=== PATIENT | male | born 1950 | race Caucasian/White ===

== ENCOUNTER 2020-09-02 10:53 | Outpatient (REF) | payer MEDICARE, BC, SELFPAY | END 2020-09-02 10:54 | disposition home or self-care (01) | LOC: HO.LAB 10:53 | PROVIDERS: PCP Internal Medicine; Visit Provider Internal Medicine Nephrology | DX: Z13.89 Encounter for screening for other disorder (principal) ==

== ENCOUNTER 2020-09-04 11:07 | Outpatient (REF) | payer MEDICARE, BC, SELFPAY ==
[2020-09-04 13:52] LABS: Basophils Absolute Auto 0.1 X10*3/uL (0.0-0.2); Basophils Percent Auto 0.7 % (0-2); Eosinophils Absolute Auto 0.2 X10*3/uL (0.0-0.4); Eosinophils Percent Auto 2.3 % (0-4); Hematocrit 47.6 % (42-52); Hemoglobin 16.1 g/dl (14.0-18.0); Imm Gran Abs Auto 0.02 X10*3/uL (0.00-0.03); Imm Gran Pct Auto 0.2 % (0.0-0.4); Lymphocytes Percent Auto 22.3 % (20-40); MANUAL DIFF FLAG NO; Mean Corpuscular HGB Conc 33.8 g/dl (31.0-36.0); Mean Corpuscular Hemoglobin 33.3 pg (27.0-33.0); Mean Corpuscular Volume 98.3 fL (80-98); Mean Platelet Volume 9.9 fL (9.4-12.4); Monocytes Absolute Auto 0.9 X10*3/uL (0.1-1.2); Monocytes Percent Auto 9.7 % (2-11); Neutrophils Absolute Auto 5.7 X10*3/uL (2.0-8.3); Neutrophils Percent Auto 64.8 % (45-73); Platelet Count 296 X10*3/uL (160-400); Red Blood Count 4.84 X10*6/uL (4.60-5.80); White Blood Count 8.8 X10*3/uL (4.8-10.8)
[2020-09-04 14:23] LABS: Albumin Level 4.1 g/dL (3.5-5.0); Anion Gap 13 (12-20); Blood Urea Nitrogen 18 mg/dL (9-16); Calcium 8.6 mg/dL (8.4-10.2); Carbon Dioxide 24 mmol/L (22-29); Chloride 104 mmol/L (96-108); Estimated Glomerular Filt Rate 48; Iron 65 mcg/dL (45-160); Magnesium 2.1 mg/dL (1.6-2.6); Percent Iron Saturation 22 % (15-50); Phosphorus 3.1 mg/dL (2.7-4.5); Sodium 136 mmol/L (135-145); Total Iron Binding Capacity 298 mcg/dL (228-428); Unsaturated Iron Binding 233 ug/dL
[2020-09-04 14:42] LABS: Ferritin 141 ng/mL (20-250); Vitamin D 25-OH Total 43.1 ng/mL (>30)
[2020-09-04 15:35] LABS: Renal w Reflex Lab Use Only Order verified
[2020-09-07 08:22] LABS: HBsAGNum1 0.17 S/CO (0.00-0.99); Hepatitis B Surface Antigen Negative (Negative); ~HepC Num1 0.09 S/CO (0.00-0.79); ~Hepatitis C Antibody Nonreactive (Nonreactive)
[2020-09-07 09:49] LABS: HBS Num1 10.48 mIU/mL (0-7.99)
[2020-09-07 10:45] LABS: HBc Num1 9.52 S/CO (0.00-0.79)
[2020-09-07 11:28] LABS: HBc Num2 9.52 S/CO; HBc Num3 9.36 S/CO; Hepatitis B Core Antibody Reactive (Nonreactive)
[2020-09-07 11:29] LABS: HBS Num2 10.48 mIU/mL (0-7.99); HBS Num3 10.37 mIU/mL (0-7.99); ~Hepatitis B Surface Antibody GRAYZONE (Nonreactive)
[2020-09-07 19:11] LABS: Calcium (PTHI) 9.1 mg/dL (8.6-10.3); PTHI 39 pg/mL (14-64)
[2020-09-08 11:36] LABS: IgA 329 mg/dL (70-320); IgG 717 mg/dL (600-1540); IgM 131 mg/dL (50-300)
[2020-09-08 22:33] LABS: Hepatitis B Core Antibody IgM NON-REACTIVE (NON-REACTIVE)
== END 2020-09-04 11:08 | disposition home or self-care (01) ==
LOC: HO.10HDL 11:07
PROVIDERS: Visit Provider Internal Medicine Nephrology
DX: I12.9 Hypertensive chronic kidney disease with stage 1 through stage 4 chronic kidney disease, or unspecified chronic kidney disease (principal); N18.30 Chronic kidney disease, stage 3 unspecified; E10.9 Type 1 diabetes mellitus without complications; E78.5 Hyperlipidemia, unspecified; E55.9 Vitamin D deficiency, unspecified
CPT/HCPCS: 36415; 80051; 82040; 82306; 82310; 82565; 82728; 82784; 83540; 83735; 83970; 84100; 84520; 85025; 86334; 86704; 86705; 86706; 86803; 87340

== ENCOUNTER 2020-09-07 11:50 | Outpatient (REF) | payer MEDICARE, BC, SELFPAY ==
[2020-09-07 14:28] LABS: Glucose Urine UA 250 MG/DL (NEG); Leukocyte Esterase Urine NEG (NEG); Nitrite Urine NEG (NEG); Specific Gravity - Urine 1.025 (1.005-1.025); Urine Blood TRACE (NEG); Urine Ketones NEG (NEG); Urine Protein NEG (NEG-TRACE)
[2020-09-07 14:33] LABS: Appearance Urine CLEAR; Color Urine YELLOW; Renal w Reflex-LAB USE ONLY Order Verified
[2020-09-07 14:37] LABS: Estimated Glomerular Filt Rate 53
[2020-09-07 14:46] LABS: WBC Urine 0 /HPF (0-4)
[2020-09-07 15:15] LABS: Creatinine, mg/dL 98.51
[2020-09-07 15:26] LABS: Creatinine Urine 77.44 mg/dL; Microalbum/Creatinine Ratio Ur 34.8 ug/mg cr; Total Protein Urine Random 19 mg/dL (<12)
[2020-09-07 15:51] LABS: Creatinine, 24Hr Urine 1.2 G/Day (1.0-2.0); Total Volume 24 Hour Urine 1250 mL
[2020-09-07 15:52] LABS: Creatinine (CrCl) 1.35 mg/dL (0.5-1.4); Creatinine Clearance 63.3 mL/min (85-125)
[2020-09-28 11:57] LABS: BUN 22
[2020-09-28 11:58] LABS: Urea Nitrogen, Urine 11
== END 2020-09-07 11:51 | disposition home or self-care (01) ==
LOC: HO.10HDL 11:50
PROVIDERS: Visit Provider Internal Medicine Nephrology
DX: E10.22 Type 1 diabetes mellitus with diabetic chronic kidney disease (principal); I12.9 Hypertensive chronic kidney disease with stage 1 through stage 4 chronic kidney disease, or unspecified chronic kidney disease; N18.30 Chronic kidney disease, stage 3 unspecified; E78.5 Hyperlipidemia, unspecified; E55.9 Vitamin D deficiency, unspecified
CPT/HCPCS: 81001; 82043; 82565; 82575; 84156; 84545

== ENCOUNTER → 2020-09-10 08:58 | Outpatient (BNVA) | payer MEDICARE, BC, SELFPAY | PROVIDERS: PCP Internal Medicine; Referring Provider Internal Medicine; Visit Provider Internal Medicine | DX: E10.65 Type 1 diabetes mellitus with hyperglycemia (principal); I10 Essential (primary) hypertension; E78.5 Hyperlipidemia, unspecified; D35.2 Benign neoplasm of pituitary gland; E55.9 Vitamin D deficiency, unspecified; B18.1 Chronic viral hepatitis B without delta-agent; Z79.899 Other long term (current) drug therapy; Z79.4 Long term (current) use of insulin; Z79.82 Long term (current) use of aspirin | CPT/HCPCS: Q3014 ==

== ENCOUNTER 2020-09-21 06:47 | Emergency (ER) | payer MEDICARE, BC, SELFPAY ==
--- NOTE | 2020-09-21 06:56 | ECG_ITS ---
Test Reason : NEAR SYNCOPE Blood Pressure : / mmHG Vent. Rate : 059 BPM Atrial Rate : 059 BPM P-R Int : 136 ms QRS Dur : 136 ms QT Int : 450 ms P-R-T Axes : 031 037 055 degrees QTc Int : 445 ms Sinus bradycardia Right bundle branch block Nonspecific ST abnormality Abnormal ECG When compared with ECG of 10-OCT-2019 04:28, No significant change was found Referred By: Pastor Woods Electronically Signed By:NY SOUZA MD
--- NOTE | 2020-09-21 06:56 | XR_ITS ---
EXAMINATION: XR CHEST CLINICAL INFORMATION: Syncope. COMPARISON: Chest x-ray dated 02/09/2019. TECHNIQUE: Frontal view of the chest was obtained. FINDINGS: No airspace opacities or pleural effusions are seen. The cardiomediastinal silhouette is normal. There are mild to moderate degenerative changes of the AC joints. No acute osseous abnormality is evident. XR/XR chest 1V IMPRESSION: No acute cardiopulmonary findings.
[2020-09-21 07:00] VITALS: BP 118/61; BP 133/76; PULSE 60; PULSE 62; RESP 18; TEMP 36.6; O2SAT 97; O2SAT 98; BMI 24.3
--- NOTE | 2020-09-21 07:15 | ED_ITS ---
HPI - Syncope General Chief Complaint: Syncope Stated Complaint: syncope Time Seen by Provider: 09/21/20 06:55 Source: patient Mode of arrival: EMS Limitations: no limitations History of Present Illness HPI narrative: patient's history of significant coronary artery disease status post stent placement in 2011, diabetes, CVA 2019 on Plavix no residual deficits was doing fine workup having the coffee had 1 sip of coffee felt diaphoretic and weak sat down on the bench and almost passed out slumped down to the table. No loss of consciousness denies any chest pain denies any palpitation now feels back to normal. Patient never had similar episode in the past no focal weakness no headache patient never had similar episode in the past POC checked by EMS was 83 patient has a loop monitor [employer] implanted to rule out AFib as a cause CVA for last 1 year no one has called him with any arrhythmia MD complaint: felt faint and almost passed out Onset (ago): minute(s) -: minutes(s) Prodromal symptoms: lightheaded and diaphoresis Witnessed: No Context: at rest Injuries sustained associated with event: none Current symptoms: none and back to baseline Related Data Home Medications Medication Instructions Recorded Confirmed aspirin 81 mg tablet,delayed 81 mg PO DAILY 09/10/20 09/10/20 release atorvastatin 80 mg tablet 80 mg PO DAILY 09/10/20 09/10/20 cholecalciferol (vitamin D3) 50 50 mcg PO DAILY 09/10/20 09/10/20 mcg (2,000 unit) capsule clopidogrel 75 mg tablet 75 mg PO DAILY 09/10/20 09/10/20 dorzolamide 2 % eye drops 1 drp OPHTHALMIC (EYE) TID 09/10/20 09/10/20 emtricitabine 200 mg-tenofovir 1 tab PO DAILY 09/10/20 09/10/20 alafenamide fumarate 25 mg tablet ezetimibe 10 mg tablet 10 mg PO DAILY 09/10/20 09/10/20 insulin aspart U-100 100 unit/mL 21 unit SUBCUT TID ml 09/10/20 09/10/20 (3 mL) subcutaneous pen insulin degludec 100 unit/mL (3 45 unit SUBCUT DAILY ml 09/10/20 09/10/20 mL) subcutaneous pen latanoprost 0.005 % eye drops 1 drp OPHTHALMIC (EYE) DAILY 09/10/20 09/10/20 lisinopril 10 mg tablet 10 mg PO DAILY 09/10/20 09/10/20 metoprolol tartrate 25 mg tablet 12.5 mg PO BID 09/10/20 09/10/20 nitroglycerin 0.4 mg sublingual 0.4 mg SUBLINGUAL Q5M PRN 09/10/20 09/10/20 tablet Allergies Allergy/AdvReac Type Severity Reaction Status Date / Time No Known Allergies Allergy Verified 09/10/20 11:26 Review of Systems Review of Systems: REVIEW OF SYSTEMS: Pertinent positives and negatives are stated above in the history. GEN: no fevers, chills, fatigue HEENT: no nasal congestion, sore throat, ear pain NEURO: no headache, focal weakness PULM: no cough, shortness of breath CV: no chest pain, palpitations, LE edema ABD: no abdominal pain, nausea, vomiting, diarrhea : no dysuria, urgency, frequency SKIN: no rash ROS otherwise negative x 10 PMFSH Past Medical History Medical History (Updated 09/21/20 @ 13:20 by Pastor Woods MD) HLD (hyperlipidemia) HTN (hypertension) Pituitary macroadenoma T1DM (type 1 diabetes mellitus) TIA (transient ischemic attack) Vitamin D deficiency Surgical History (Updated 09/21/20 @ 07:31 by Olga Chadwick) History of carotid endarterectomy History of heart artery stent Family History Family History Father CVD (cardiovascular disease) AAA (abdominal aortic aneurysm) Mother No problems noted. Social History Social History Alcohol intake: never Smoking Status: Current every day smoker Use of substances other than those prescribed or required for medical reasons: No Advance Directives: No Advance Directives Information Provided: Yes Physical Exam Vital Signs: Vital Signs: Last Vital Signs Temp 98.6 F 09/21/20 10:13 Pulse 64 09/21/20 10:38 Resp 18 09/21/20 10:38 BP 172/71 H 09/21/20 10:38 Pulse Ox 98 09/21/20 10:38 Body Mass Index 24.3 VITAL SIGNS: Reviewed. GENERAL: Well developed, well nourished, in no acute distress. HEAD: Normocephalic/atraumatic, EYES: PERRLA No pallor/icterus noted OROPHARYNX: Oral mucosa moist no oral lesions NECK: Supple, no adenopathy LUNGS: Normal breath sounds. No adventitious sounds or accessory muscle use CARDIOVASCULAR: Regular rate and rhythm without noted murmurs, no JVD or lower extremity edema. ABDOMEN: Soft, non-tender, non-distended with normal bowel sounds. No rigidity. No guarding. No palpable masses or hernias noted MUSCULOSKELETAL: No tenderness, deformities, EXTREMITIES: No cyanosis or edema. SKIN: no rashes, ulcerations, jaundice, pallor, NEUROLOGIC: Alert and oriented x 3. Strength and sensation to light touch were grossly intact normal speech Course Course Course Narrative: patient is a near-syncope episode in the ER blood sugar dropped to 57 elevated creatinine which is chronic, no acute EKG changes, I call the retail inventory control clerk they have not seen any signal of arrhythmias from the loop monitor today. Will repeat his troponin and if it is normal we will discharge him home MDM - Syncope Lab Data Result diagrams: 09/21/20 07:30 09/21/20 07:31 Labs: Lab Results 09/21/20 09/21/20 09/21/20 Range/Units 07:30 07:30 07:31 WBC 10.6 (4.8-10.8) X10*3/uL RBC 4.63 (4.60-5.80) X10*6/uL Hgb 15.1 (14.0-18.0) g/dl Hct 45.1 (42-52) % MCV 97.4 (80-98) fL MCH 32.6 (27.0-33.0) pg MCHC 33.5 (31.0-36.0) g/dl RDW 12.9 (11.0-16.0) % Plt Count 252 (160-400) X10*3/uL MPV 8.8 L (9.4-12.4) fL Immature Gran % (Auto) 0.5 H (0.0-0.4) % Neut % (Auto) 68.1 (45-73) % Lymph % (Auto) 18.3 L (20-40) % [place] % (Auto) 10.3 (2-11) % Eos % (Auto) 2.4 (0-4) % Baso % (Auto) 0.4 (0-2) % Lymph # (Auto) 1.9 (1.2-4.9) X10*3/uL [place] # (Auto) 1.1 (0.1-1.2) X10*3/uL Eos # (Auto) 0.3 (0.0-0.4) X10*3/uL Baso # (Auto) 0.0 (0.0-0.2) X10*3/uL Abs Immat Gran (auto) 0.05 H (0.00-0.03) X10*3/uL Absolute Neuts (auto) 7.2 (2.0-8.3) X10*3/uL Absolute Nucleated RBC 0.000 (0.0-0.012) X10*3/uL Nucleated RBC % (auto) 0.0 (0.0-0.2) /100WBC Hold Blue Top SEE NOTE Sodium 138 (135-145) mmol/L Potassium 4.5 (3.3-5.1) mmol/l Chloride 102 (96-108) mmol/L Carbon Dioxide 28 (22-29) mmol/L Anion Gap 13 (12-20) BUN 23 H (9-16) mg/dL Creatinine 1.65 H (0.5-1.4) mg/dL Estim Creat Clear Calc 41.4 Estimated GFR 42 Random Glucose 57 L* (60-115) mg/dL Calcium 8.6 (8.4-10.2) mg/dL Troponin I High Sens (<3.5-35.0) ng/L 09/21/20 09/21/20 Range/Units 07:31 12:26 WBC (4.8-10.8) X10*3/uL RBC (4.60-5.80) X10*6/uL Hgb (14.0-18.0) g/dl Hct (42-52) % MCV (80-98) fL MCH (27.0-33.0) pg MCHC (31.0-36.0) g/dl RDW (11.0-16.0) % Plt Count (160-400) X10*3/uL MPV (9.4-12.4) fL Immature Gran % (Auto) (0.0-0.4) % Neut % (Auto) (45-73) % Lymph % (Auto) (20-40) % [place] % (Auto) (2-11) % Eos % (Auto) (0-4) % Baso % (Auto) (0-2) % Lymph # (Auto) (1.2-4.9) X10*3/uL [place] # (Auto) (0.1-1.2) X10*3/uL Eos # (Auto) (0.0-0.4) X10*3/uL Baso # (Auto) (0.0-0.2) X10*3/uL Abs Immat Gran (auto) (0.00-0.03) X10*3/uL Absolute Neuts (auto) (2.0-8.3) X10*3/uL Absolute Nucleated RBC (0.0-0.012) X10*3/uL Nucleated RBC % (auto) (0.0-0.2) /100WBC Hold Blue Top Sodium (135-145) mmol/L Potassium (3.3-5.1) mmol/l Chloride (96-108) mmol/L Carbon Dioxide (22-29) mmol/L Anion Gap (12-20) BUN (9-16) mg/dL Creatinine (0.5-1.4) mg/dL Estim Creat Clear Calc Estimated GFR Random Glucose (60-115) mg/dL Calcium (8.4-10.2) mg/dL Troponin I High Sens 20.6 15.9 (<3.5-35.0) ng/L ECG Data Attestation: I personally reviewed and interpreted this ECG as follows: ECG interpretation date: 09/21/20 ECG interpretation time: 06:28 Interpretation: sinus bradycardia heart rate [address] T wave changes from previous EKG done in 09/2019 Discharge Plan Discharge Clinical Impression: Near syncope Patient Disposition: Home, Self-Care Instructions: Near Syncope (ED) Additional Instructions: etiology of near syncope is not very clear no cardiac arrhythmias noticed. The blood sugar was slightly low when you came here likely the cause or vasovagal. Drink plenty of fluids and follow with retail inventory control clerk Prescriptions: No Action lisinopril 10 mg tablet 10 mg PO DAILY RF: 0 metoprolol tartrate 25 mg tablet 12.5 mg PO BID RF: 0 latanoprost [Xalatan] 0.005 % drops 1 drp ophthalmic (eye) DAILY RF: 0 dorzolamide 2 % drops 1 drp ophthalmic (eye) TID RF: 0 cholecalciferol (vitamin D3) 50 mcg (2,000 unit) capsule 50 mcg PO DAILY RF: 0 aspirin 81 mg tablet,delayed release (DR/EC) 81 mg PO DAILY RF: 0 nitroglycerin 0.4 mg tablet, sublingual 0.4 mg sublingual Q5M PRNRF: 0 Descovy 200-25 mg tablet 1 tab PO DAILY RF: 0 atorvastatin 80 mg tablet 80 mg PO DAILY RF: 0 Tresiba FlexTouch U-100 100 unit/mL (3 mL) insulin pen 45 unit subcut DAILY RF: 0 insulin aspart U-100 [Novolog Flexpen U-100 Insulin] 100 unit/mL (3 mL) insul in pen 21 unit subcut TID RF: 0 ezetimibe [Zetia] 10 mg tablet 10 mg PO DAILY RF: 0 clopidogrel [Plavix] 75 mg tablet 75 mg PO DAILY RF: 0
[2020-09-21 07:36] LABS: MANUAL DIFF FLAG NO
[2020-09-21 07:38] LABS: Basophils Percent Auto 0.4 % (0-2); Eosinophils Absolute Auto 0.3 X10*3/uL (0.0-0.4); Eosinophils Percent Auto 2.4 % (0-4); Hematocrit 45.1 % (42-52); Hemoglobin 15.1 g/dl (14.0-18.0); Imm Gran Abs Auto 0.05 X10*3/uL (0.00-0.03); Imm Gran Pct Auto 0.5 % (0.0-0.4); Lymphocytes Absolute Auto 1.9 X10*3/uL (1.2-4.9); Lymphocytes Percent Auto 18.3 % (20-40); Mean Corpuscular HGB Conc 33.5 g/dl (31.0-36.0); Mean Corpuscular Hemoglobin 32.6 pg (27.0-33.0); Mean Corpuscular Volume 97.4 fL (80-98); Mean Platelet Volume 8.8 fL (9.4-12.4); Monocytes Absolute Auto 1.1 X10*3/uL (0.1-1.2); Monocytes Percent Auto 10.3 % (2-11); Neutrophils Absolute Auto 7.2 X10*3/uL (2.0-8.3); Neutrophils Percent Auto 68.1 % (45-73); Platelet Count 252 X10*3/uL (160-400); Red Blood Count 4.63 X10*6/uL (4.60-5.80); Red Cell Distribution Width 12.9 % (11.0-16.0); White Blood Count 10.6 X10*3/uL (4.8-10.8)
[2020-09-21 08:06] LABS: Anion Gap 13 (12-20); Blood Urea Nitrogen 23 mg/dL (9-16); Calcium 8.6 mg/dL (8.4-10.2); Carbon Dioxide 28 mmol/L (22-29); Chloride 102 mmol/L (96-108); Creatinine Clr Calc Pharmacy 41.4; Estimated Glomerular Filt Rate 42; Glucose Random 57 mg/dL (60-115); Potassium 4.5 mmol/l (3.3-5.1); Sodium 138 mmol/L (135-145)
[2020-09-21 08:08] LABS: Troponin-I High Sensitivity 20.6 ng/L (<3.5-35.0)
[2020-09-21 09:07] VITALS: BP 138/69; PULSE 58; RESP 18; TEMP 36.6; O2SAT 99
[2020-09-21 10:13] VITALS: BP 174/66; PULSE 65; RESP 18; TEMP 37; O2SAT 96
--- NOTE | 2020-09-21 10:36 | PC.NURSE ---
Pt ate bkfst. Glucose 112 now per pt's glucose monitor.
[2020-09-21 10:38] VITALS: BP 172/71; PULSE 64; RESP 18; O2SAT 98
[2020-09-21] MEDS: 0.9 % Sodium Chloride 1,000 ML 999 ML IVCONT (11:59)
[2020-09-21 12:56] LABS: Troponin-I High Sensitivity 15.9 ng/L (<3.5-35.0)
[2020-09-21 13:30] LABS: Glucose, Whole Blood 120 mg/dL (60-115)
== END 2020-09-21 13:41 | disposition home or self-care (01) ==
PROVIDERS: Emergency Provider Internal Medicine
DX: R55 Syncope and collapse (principal); I10 Essential (primary) hypertension; F17.200 Nicotine dependence, unspecified, uncomplicated; Z71.6 Tobacco abuse counseling; Z79.899 Other long term (current) drug therapy
CPT/HCPCS: 36415; 71045; 80048; 82947; 84484; 85025; 93005; 96360; 99284

== ENCOUNTER 2020-09-23 08:27 | Outpatient (REF) | payer MEDICARE, BC, SELFPAY ==
[2020-09-23 09:27] LABS: Estimated Average Glucose 189 mg/dL; Hemoglobin A1c % 8.2 %
[2020-09-23 09:34] LABS: Alanine Aminotransferase 15 U/L (0-40); Alkaline Phosphatase 84 U/L (39-117); Anion Gap 12 (12-20); Aspartate Amino Transferase 15 U/L (5-37); Bilirubin Total 0.5 mg/dL (0.0-1.0); Blood Urea Nitrogen 20 mg/dL (9-16); Calcium 8.8 mg/dL (8.4-10.2); Carbon Dioxide 26 mmol/L (22-29); Chloride 103 mmol/L (96-108); Cholesterol 88 mg/dL; Estimated Glomerular Filt Rate 45; Glucose Random 184 mg/dL (60-115); HDL Cholesterol 24 mg/dL; LDL Cholesterol Calculated 44 mg/dl; Sodium 136 mmol/L (135-145); Total Protein 6.4 g/dL (6.5-8.0); Triglycerides 100 mg/dL
[2020-09-23 10:01] LABS: Free T4 (Free Thyroxine) 0.83 ng/dL (0.71-1.85); Vitamin D 25-OH Total 34.7 ng/mL (>30)
[2020-09-23 10:13] LABS: Osmolality, Serum 297 mosm/kg (281-305)
[2020-09-23 11:30] LABS: Creatinine Urine 76.01 mg/dL; Microalbum/Creatinine Ratio Ur 35.5 ug/mg cr
[2020-09-24 18:07] LABS: LDL Cholesterol Direct 45 mg/dL (<100)
[2020-09-24 18:57] LABS: Triiodothyronine T3 Total 80 ng/dL (76-181)
[2020-09-24 21:37] LABS: Sex Hormone Binding Globulin 41 nmol/L (22-77)
[2020-09-25 14:47] LABS: Follicle Stimulating Hormone 5.1 mIU/mL (1.6-8.0); Lutenizing Hormone 7.4 mIU/mL (1.6-15.2); Prolactin Undiluted 4.9 ng/mL (2.0-18.0)
[2020-09-25 22:12] LABS: Adrenocorticotropic Hormone 32 pg/mL (6-50)
[2020-09-27 15:31] LABS: IGF-1 (Somatomedin C) 180 ng/mL (41-279)
[2020-09-28 14:22] LABS: Testosterone, Free 54.3 pg/mL (35.0-155.0); Testosterone, Total 431 ng/dL (250-1100)
== END 2020-09-23 08:28 | disposition home or self-care (01) ==
LOC: HO.LAB 08:27
PROVIDERS: PCP Internal Medicine; Visit Provider Internal Medicine
DX: E55.9 Vitamin D deficiency, unspecified (principal); E10.65 Type 1 diabetes mellitus with hyperglycemia; D35.2 Benign neoplasm of pituitary gland
CPT/HCPCS: 80053; 80061; 82024; 82043; 82306; 82533; 83001; 83002; 83036; 83721; 83930; 84146; 84270; 84305; 84402; 84403; 84439; 84443; 84480

== ENCOUNTER → 2020-12-24 08:58 | Outpatient (BNVA) | payer MEDICARE, BC, SELFPAY | PROVIDERS: PCP Internal Medicine; Visit Provider Internal Medicine Cardiovascular Disease | DX: I25.10 Atherosclerotic heart disease of native coronary artery without angina pectoris (principal); I10 Essential (primary) hypertension; Z95.818 Presence of other cardiac implants and grafts | CPT/HCPCS: 99212 ==

== ENCOUNTER 2020-12-24 10:38 | Outpatient (REF) | payer MEDICARE, BC, SELFPAY | END 2020-12-24 10:39 | disposition home or self-care (01) | LOC: HO.10HDL 10:38 | PROVIDERS: Visit Provider Internal Medicine Infectious Disease | DX: Z13.89 Encounter for screening for other disorder (principal) ==

== ENCOUNTER 2020-12-28 09:37 | Outpatient (REF) | payer MEDICARE, BC, SELFPAY ==
[2020-12-28 10:12] LABS: MANUAL DIFF FLAG NO
[2020-12-28 10:19] LABS: Basophils Absolute Auto 0.1 X10*3/uL (0.0-0.2); Basophils Percent Auto 0.6 % (0-2); Eosinophils Absolute Auto 0.2 X10*3/uL (0.0-0.4); Eosinophils Percent Auto 2.2 % (0-4); Hematocrit 47.1 % (42-52); Hemoglobin 15.9 g/dl (14.0-18.0); Imm Gran Abs Auto 0.03 X10*3/uL (0.00-0.03); Imm Gran Pct Auto 0.3 % (0.0-0.4); Lymphocytes Percent Auto 19.9 % (20-40); Mean Corpuscular HGB Conc 33.8 g/dl (31.0-36.0); Mean Corpuscular Hemoglobin 32.6 pg (27.0-33.0); Mean Corpuscular Volume 96.7 fL (80-98); Mean Platelet Volume 9.1 fL (9.4-12.4); Monocytes Absolute Auto 0.8 X10*3/uL (0.1-1.2); Monocytes Percent Auto 8.2 % (2-11); Neutrophils Absolute Auto 6.8 X10*3/uL (2.0-8.3); Neutrophils Percent Auto 68.8 % (45-73); Platelet Count 286 X10*3/uL (160-400); Red Blood Count 4.87 X10*6/uL (4.60-5.80); White Blood Count 9.9 X10*3/uL (4.8-10.8)
[2020-12-28 11:04] LABS: Alanine Aminotransferase 17 U/L (0-40); Aspartate Amino Transferase 16 U/L (5-37); Blood Urea Nitrogen 25 mg/dL (9-16); Estimated Glomerular Filt Rate 40; Phosphorus 3.2 mg/dL (2.7-4.5)
[2020-12-28 11:28] LABS: HIV AB/AG Nonreactive (Nonreactive); HIV Num 1 0.06 S/CO (0.00-0.99)
[2020-12-28 11:53] LABS: Syphilis Screen Nonreactive (Nonreactive)
[2020-12-28 12:00] LABS: ~HepC Num1 0.09 S/CO (0.00-0.79); ~Hepatitis C Antibody Nonreactive (Nonreactive)
[2020-12-29 13:32] LABS: C. trachomatis RNA TMA NOT DETECTED (NOT DETECTED); N. gonorrhoeae RNA TMA NOT DETECTED (NOT DETECTED)
[2020-12-30 18:11] LABS: Hepatitis B Viral DNA Qn - cp <1.00 NOT DETECTED Log IU/mL (NOT DETECTED); Hepatitis B Viral DNA Qn-IU/mL <10 NOT DETECTED IU/mL (NOT DETECTED)
== END 2020-12-28 09:38 | disposition home or self-care (01) ==
LOC: HO.10HDL 09:37
PROVIDERS: Visit Provider Internal Medicine Infectious Disease
DX: B19.10 Unspecified viral hepatitis B without hepatic coma (principal)
CPT/HCPCS: 36415; 82565; 84100; 84450; 84460; 84520; 85025; 86780; 86803; 87389; 87491; 87517; 87591

== ENCOUNTER → 2020-12-31 12:12 | Outpatient (BNVA) | payer MEDICARE, BC, SELFPAY | PROVIDERS: PCP Internal Medicine; Visit Provider Internal Medicine | DX: E10.65 Type 1 diabetes mellitus with hyperglycemia (principal); E78.5 Hyperlipidemia, unspecified; D35.2 Benign neoplasm of pituitary gland; I10 Essential (primary) hypertension; Z79.4 Long term (current) use of insulin; Z71.3 Dietary counseling and surveillance | CPT/HCPCS: 82947; 99212 ==

== ENCOUNTER 2021-01-12 08:55 | Inpatient (IN) | payer MEDICARE, BC, SELFPAY ==
[2021-01-12] VITALS (9 sets, daily range): BP systolic 135–204; BP diastolic 68–90; PULSE 61–68; RESP 12–20; TEMP 36.3–37.1; O2SAT 96–100; BMI 24.5
--- NOTE | ~2021-01-12 | CT_ITS ---
EXAMINATION: CT HEAD WITHOUT CONTRAST (STROKE PROTOCOL) CLINICAL INFORMATION: Stroke protocol. Left hand weakness COMPARISON: CT brain 11/18/2019 TECHNIQUE: Contiguous axial imaging was performed from the skull base to vertex without intravenous administration of contrast. This CT examination was performed using dose optimization techniques as appropriate, variously including the following: *Automated exposure control *Adjustment of mA and/or kV according to patient size (this includes techniques or standardized protocols for targeted exams where dose is matched to indication/reason for exam; i.e. extremities or head) *Use of iterative reconstruction technique DLP: 725 mGy-cm FINDINGS: There is no intracranial hemorrhage, hematoma, or extra-axial fluid collection. The the lateral ventricles are symmetrical but slightly prominent. There is no hydrocephalus, edema, or mass effect. The soto-white matter differentiation appears symmetric. There is subtle hypodensity seen in the right anterior centrum ovale extending to the external capsule, new since last study 11/18/2019. It is best visualized on axial image 18/3. There is mild periventricular hypodensity in both cerebral hemispheres without mass effect suggestive of chronic small vessel ischemic changes. The calvarium appears intact. There is no pneumocephalus or orbital emphysema. The visualized sinuses and middle ears and mastoid air cells show no significant mucosal thickening. There are no air-fluid levels. CT/CT head for stroke IMPRESSION: New right anterior centrum semiovale hypodensity extending to the external capsule suggestive of infarct. There is no acute intracranial bleed. Mild cerebral volume loss with chronic small vessel ischemic changes in both cerebral hemispheres. This critical result was discussed with Dr. Niko Gamez at 950 hours on 01/12/2021. It was ascertained that the content and urgency of the report was understood at the time of direct communication.
--- NOTE | ~2021-01-12 | CT_ITS ---
EXAMINATION: CTA NECK WITH CONTRAST (STROKE) CTA BRAIN WITH CONTRAST (STROKE) CLINICAL INFORMATION: Suspect acute stroke. Assess for major vessel occlusion. Please call report. COMPARISON: 70-year-old with left-sided weakness. TECHNIQUE: CTA of the head and neck was performed in the axial plane from the mediastinum to the skull vertex using 75 mL Omnipaque 350 intravenous contrast. Additional reformatted multiplanar images including maximum intensity projection MIP images are generated on the CT workstation. This CT examination was performed using dose optimization techniques as appropriate, variously including the following: *Automated exposure control *Adjustment of mA and/or kV according to patient size (this includes techniques or standardized protocols for targeted exams where dose is matched to indication/reason for exam; i.e. extremities or head) *Use of iterative reconstruction technique DLP: 1028.7 mGy-cm FINDINGS: The degree of stenosis determined by criteria similar to NASCET. Brain: No evidence for new acute cortical infarct, hemorrhage, space-occupying process, or mass effect. Small remote infarcts involving the right anterior travis radiata, right putamen and right caudate head. Similar appearance to previous CT. Small focus of hypodensity in the right precentral gyrus corresponding to the recently found acute infarct in this region on MRI. Remainder of the brain is unremarkable in morphology and attenuation. No intracranial hemorrhage, extra-axial fluid collection. Ventricular system and subarachnoid spaces are unchanged in appearance without hydrocephalus. The bony structures appear intact. Chest CTA: Diffuse, noncalcified and calcified plaque throughout the thoracic aortic arch, stable from previous exam with a normal three-vessel configuration to the brachiocephalic vessels. The innominate artery is patent, with lipid-rich plaque at the origin of the right common carotid artery with mild stenosis, stable in appearance. Left common carotid artery origin is patent and normal in caliber, unchanged. There is calcified atheromatous plaque at the origin of the left vertebral artery, which appears severely stenotic with mild post stenotic dilatation, stable in appearance. Origin of the right vertebral artery is normal in caliber and patent. Neck CTA: Redemonstrated is irregular noncalcified atheromatous plaque spanning the right carotid bulb and bifurcation, with approximately 50% diameter reduction stenosis at the origin of the right ICA, stable in appearance. Multifocal plaque ulceration is seen throughout the proximal right ICA. The right external carotid artery is occluded at its origin and reconstitutes distally, unchanged in appearance. There is predominantly calcified plaque at the left carotid bifurcation and carotid bulb, stable in appearance. There is less than 50% diameter reduction stenosis of the left proximal ICA, unchanged in appearance. The remainder of the left ICA is normal in caliber and smoothly contoured, and the left ECA is patent and normal in caliber. The vertebral arteries are codominant. Distal to the proximal left vertebral artery, the left vertebral artery is normal in caliber. The right vertebral artery is normal in caliber. Brain CTA: The intracranial vertebral arteries are not significantly stenotic, with minimal calcified plaque on the right. The basilar artery is normal in caliber and smoothly contoured. The superior cerebellar and posterior cerebral arteries are normal in caliber. The posterior inferior cerebellar arteries are visualized and are patent. The intracranial internal carotid arteries are normal in caliber with mild bilateral ICA calcifications. The M1 and M2 segments are patent and normal in caliber. The A1 and A2 segments are patent. Anterior communicating artery is normal. No high-grade stenosis or proximal occlusion of the intracranial vessels. CT/CT angio head neck stroke IMPRESSION: 1. No new infarcts are identified since the previous studies. Findings as described above. 2. No high-grade stenosis or proximal major vessel occlusion and no significant change in the appearance of the CTA brain and neck, with essentially stable atheromatous plaque bilaterally. See above for details. This critical test result is communicated to: Dr. Neri at 12:36 PM on day of study.
--- NOTE | ~2021-01-12 | CT_ITS ---
EXAMINATION: CT HEAD WITHOUT CONTRAST (STROKE PROTOCOL) CLINICAL INFORMATION: Stroke protocol. Acute COMPARISON: CTA head and neck 01/12/2021.. CT brain 01/12/2021 there is no acute intra-axial, extra-axial bleed TECHNIQUE: Contiguous axial imaging was performed from the skull base to vertex without intravenous administration of contrast. This CT examination was performed using dose optimization techniques as appropriate, variously including the following: *Automated exposure control *Adjustment of mA and/or kV according to patient size (this includes techniques or standardized protocols for targeted exams where dose is matched to indication/reason for exam; i.e. extremities or head) *Use of iterative reconstruction technique DLP: 859 mGy-cm FINDINGS: Again visualized are several areas of hypoattenuation in the right basal ganglia, right precentral gyrus and right middle frontal lobe similar to previous study. There are no new areas of infarct visualized. There is no edema midline shift. The lateral ventricles are symmetrical in size and configuration without enlargement. There is periventricular hypodensity in both cerebral hemispheres suggestive of chronic small vessel ischemic changes. Bone windows reveal no calvarial abnormality. The paranasal sinuses and mastoid air cells are well-aerated. CT/CT head for stroke IMPRESSION: Multiple foci of hypoattenuation involving the right cerebral area similar to previous study 01/12/2021 there are no new areas of acute infarct or bleed. Chronic small small vessel microangiopathy in both several hemispheres is stable. This critical result was discussed with Dr. Jose Hernandez at 1154 hours on 01/13/2021. It was ascertained that the content and urgency of the report was understood at the time of direct communication.
--- NOTE | ~2021-01-12 | MR_ITS ---
EXAMINATION: BRAIN MRI WITHOUT CONTRAST CLINICAL INFORMATION: Acute stroke. COMPARISON: CT angiogram of the head and neck 01/13/2021, brain MRI 01/12/2021. TECHNIQUE: Multiplanar MR imaging of the brain was performed without contrast. FINDINGS: There are multiple new or enlarging foci of restricted diffusion within the right cerebral hemisphere when compared to prior MR imaging from 01/12/2021. There are a few scattered punctate foci of susceptibility artifact within the right frontal, right occipital, and both parietal lobes. Intracranial vascular flow voids are grossly maintained. There are numerous foci of T2 FLAIR signal hyperintensity throughout the periventricular white matter, basal ganglia, and juan c that most likely represent a chronic manifestation of small vessel ischemia. No intracranial mass effect or midline shift. No abnormal extra-axial collection. Lateral and third ventricles are proportionate to the subarachnoid spaces. No hydrocephalus. There is an intrasellar mass causing smooth chronic remodeling and expansion of the sella turcica. Midline structures are otherwise unremarkable. No acute bone marrow signal changes. There is no mastoid middle ear effusion. Partial opacification of one of the right posterior ethmoids. Otherwise no active paranasal sinus disease. MR/MR head/brain wo con IMPRESSION: There are multiple new or worsening acute infarcts within the right cerebral hemisphere when compared to recent prior MR imaging from 01/12/2021. These findings are superimposed upon numerous chronic small vessel ischemic changes within the periventricular white matter, basal ganglia, and juan c. No intracranial mass effect.
--- NOTE | ~2021-01-12 | CT_ITS ---
EXAMINATION: CT angio head neck stroke CLINICAL INFORMATION: Left upper extremity weakness and numbness. COMPARISON: CT scan of the head 01/12/2021, 11/18/2019. TECHNIQUE: [facility] [employer] Professional images were obtained. A CT angiogram of the head and neck was performed in the arterial phase after the intravenous administration of 70 mL Omnipaque 350. Delayed postcontrast images of the head were also obtained. MIP reconstructions were generated in multiple orientations at the acquisition workstation. Multiple three-dimensional surface rendered images and maximum intensity projection images were generated on a dedicated 3-D lab workstation. Arterial stenoses are measured in accordance with NASCET criteria or similar method if applicable. This CT examination was performed using dose optimization techniques as appropriate, including one or more of the following: Automated exposure control, iterative reconstruction, and adjustment of technique factors (mA and/or kVp) according to patient size (this includes techniques or standardized protocols for targeted exams where dose is matched to indication/reason for exam). Total exam dose-length product 1716 mGy-cm FINDINGS: Head: There are multiple foci of hypoattenuation involving the basal ganglia, right centrum semiovale, as well as a few small cortical infarcts within the right middle frontal gyrus and the right precentral gyrus. It is difficult to accurately determine the age of these infarcts due to inherent limitations of CT. There is no intracranial mass effect or midline shift. No abnormal extra-axial collection. Lateral and third ventricles are normal. No hydrocephalus. The calvarium and skull base are intact. Mastoid air cells and middle ear cavities are well aerated. There is a retention cyst within one of the right posterior ethmoid air cells. No active paranasal sinus disease. CT angiogram neck: There is some irregular atheromatous plaque at the aortic arch apex. Origins of the major aortic branches are widely patent. There is also eccentric lipid-laden atheromatous plaque causing 40% stenosis at the origin of the right common carotid artery. The left common carotid artery is patent. There is a left relatively large eccentric lipid-laden atheromatous plaque at the right carotid bifurcation causing 50% stenosis of the right internal carotid artery at its origin. The there are multiple deep irregular ulcerations along the surface of the plaque. The right external carotid artery is occluded at its origin. There is mixed density plaque at the left carotid bifurcation. No stenosis of the left extracranial internal carotid artery. Atheromatous plaque causes high-grade near occlusive stenosis at the origin of the left vertebral artery. The right vertebral artery is widely patent. CT angiogram head: Intracranial internal carotid arteries are patent. The intradural vertebral artery segments and basilar artery are patent. Anterior, middle, and posterior cerebral artery complexes are normal. No high-grade stenosis or proximal occlusion is visualized within the intracranial vessels. Other: Soft tissues of the neck including the thyroid gland are normal. Grossly no pathologically enlarged cervical lymph nodes. Visualized lung apices are clear. CT/CT angio head neck stroke IMPRESSION: There are multiple infarcts of indeterminate age involving the right basal ganglia and right centrum semiovale. There are also a few small age indeterminate cortical infarcts involving the right middle frontal gyrus and right precentral gyrus. Many of these infarcts are new when compared to the CT scan of the head from 11/18/2019. The CT angiogram reveals an eccentric atheromatous plaque causing 40% stenosis at the origin of the right common carotid artery and thick irregular ulcerated plaque at the right carotid bifurcation causing 50% tandem stenosis at the origin of the right internal carotid artery. The right external carotid artery is also completely occluded at its origin. A comparatively small amount of partially calcified atheromatous plaque involves the left carotid bifurcation causing no stenosis of the left internal carotid artery. There is near occlusive stenosis at the origin of the left vertebral artery. The right vertebral artery is patent. No high-grade stenosis or proximal occlusion is visualized within the intracranial vessels. This critical result was discussed with Wilner Gamez at 10:19 AM on 01/12/2021 and it was ascertained that the content and urgency of the report was understood at the time of direct communication.
--- NOTE | ~2021-01-12 | MR_ITS ---
EXAMINATION: BRAIN MRI WITHOUT CONTRAST CLINICAL INFORMATION: Left upper extremity weakness and numbness. Evaluate for stroke. COMPARISON: CT angiogram of the head and neck 01/12/2021. Brain MRI 10/10/2019. TECHNIQUE: Multiplanar MR imaging of the brain was performed without contrast. FINDINGS: There is a small acute cortical infarct involving the right precentral sulcus best illustrated on axial image 26 of 32 series 4. A smaller subacute cortical infarct is visualized within the right parietal lobe. Numerous foci of T2 FLAIR signal hyperintensity are also visualized within the periventricular white matter, basal ganglia, and juan c that most likely represent a chronic manifestation of small vessel ischemia. A few small chronic cortical infarcts are also visualized within the right parietal and occipital lobe. Scattered punctate foci of magnetic susceptibility artifact visualized within the subcortical white matter of both cerebral hemispheres. Intracranial vascular flow voids are grossly maintained. There is no intracranial mass effect or midline shift. No abnormal extra-axial collection or lateral and third ventricles are normal. No hydrocephalus. Of note there is a 1.3 cm expansile mass within the sella turcica to the left of midline that causes smooth remodeling of the dorsum sella. Possible invasion of the left cavernous sinus. Imaging characteristics are most consistent with a pituitary macroadenoma that appears similar to the findings demonstrated on the brain MRI from 10/10/2019. No mastoid middle ear effusion. There is a retention cyst within one of the right posterior ethmoid air cells. Globes and orbits are symmetric. MR/MR head/brain wo con IMPRESSION: There is a small acute cortical infarct involving the right precentral sulcus as well as a few additional small subacute and chronic cortical infarcts involving the right parietal and occipital lobes. Numerous chronic small vessel ischemic changes are also visualized within the periventricular white matter, basal ganglia, and juan c. There are scattered small chronic microhemorrhages primarily distributed within the subcortical white matter of both cerebral hemispheres indicating the likelihood of underlying cerebral amyloid angiopathy. Grossly stable pituitary macroadenoma.
--- NOTE | 2021-01-12 09:21 | ECG_ITS ---
Test Reason : STROKE Blood Pressure : / mmHG Vent. Rate : 059 BPM Atrial Rate : 059 BPM P-R Int : 146 ms QRS Dur : 140 ms QT Int : 450 ms P-R-T Axes : 072 059 061 degrees QTc Int : 445 ms Sinus bradycardia Right bundle branch block Abnormal ECG When compared with ECG of 21-SEP-2020 06:58, No significant change was found Referred By: Wilner Gamez Electronically Signed By:CLARICE ESPINO
[2021-01-12 09:34] LABS: MANUAL DIFF FLAG NO
[2021-01-12 09:35] LABS: Basophils Absolute Auto 0.1 X10*3/uL (0.0-0.2); Basophils Percent Auto 0.6 % (0-2); Eosinophils Absolute Auto 0.2 X10*3/uL (0.0-0.4); Eosinophils Percent Auto 2.3 % (0-4); Hematocrit 48.7 % (42-52); Hemoglobin 16.3 g/dl (14.0-18.0); Imm Gran Abs Auto 0.03 X10*3/uL (0.00-0.03); Imm Gran Pct Auto 0.3 % (0.0-0.4); Lymphocytes Absolute Auto 1.8 X10*3/uL (1.2-4.9); Lymphocytes Percent Auto 16.9 % (20-40); Mean Corpuscular HGB Conc 33.5 g/dl (31.0-36.0); Mean Corpuscular Hemoglobin 32.7 pg (27.0-33.0); Mean Corpuscular Volume 97.6 fL (80-98); Mean Platelet Volume 9.1 fL (9.4-12.4); Monocytes Percent Auto 9.3 % (2-11); Neutrophils Absolute Auto 7.5 X10*3/uL (2.0-8.3); Neutrophils Percent Auto 70.6 % (45-73); Platelet Count 294 X10*3/uL (160-400); Red Blood Count 4.99 X10*6/uL (4.60-5.80); Red Cell Distribution Width 13.2 % (11.0-16.0); White Blood Count 10.6 X10*3/uL (4.8-10.8)
[2021-01-12 09:42] LABS: INTERNATIONAL NORM RATIO 0.9 (0.9-1.1); Prothrombin Time 10.9 SEC (10.8-13.0)
[2021-01-12 09:45] LABS: Partial Thromboplastin Time 40.1 SEC (24.1-38.0)
[2021-01-12 09:46] LABS: Stroke Lab Use COMPLETE
[2021-01-12 10:00] LABS: Troponin-I High Sensitivity 11.3 ng/L (<3.5-35.0)
[2021-01-12 10:12] LABS: Glucose, Whole Blood 168 mg/dL (60-115)
--- NOTE | 2021-01-12 10:51 | MHC.STROKE ---
Addendum entered by Sagrario Royal RN 01/14/21 11:11: I REVIEWED THE CASE WITH DR LITTLE AND HE IS RECOMMENDING A REPEAT MRI BRAIN W/O CONTRAST FOR COMPARISON. THE PATIENT CONTINUES TO EXPERIENCE SLIGHT LEFT DROOP, LEFT HAND WEAKNESS/NUMBNESS AND ATAXIC GATE. I DID REVIEW THE PLAN OF CARE WITH THE PATIENT. I WILL CHECK BACK WITH THE PATIENT AFTER HIS MRI IS COMPLETED. Addendum entered by Sagrario Royal RN 01/13/21 13:52: 11[address] DR RIVERA. LEFT FACIAL DROOP, LEFT ARM DRIFT, AND SENSORY LOSS STARTED AT APPROXIMATELY 1115. NIHSS = 5. STAT CTH AND CTA H/N DONE. NO NEW FINDINGS. I DID RELAY THIS INFORMATION TO DR LITTLE. EXCLUDED FROM TPA BASED ON NEW RECENT STROKE. VITALS STABLE, BS 236. CARDIOLOGY WILL BE UP TO CHECK LOOP RECORDER FOR ANY ARRHYTHMIAS. Addendum entered by Sagrario Royal RN 01/12/21 12:00: ADDITIONAL PMH: TYPE 1 DM ON INSULIN, +FAMILY HISTORY OF HDL. Addendum entered by Sagrario Royal RN 01/12/21 11:14: PATIENT HAS A IMPLANTABLE LOOP RECORDER INSERTED B DR LOWE 01/01/20 AND PATIENT SAID HE HAS NOT HAD ANY ARRHYTHMIAS. THIS WILL NEED TO BE VERIFIED WITH DR LOWE'S OFFICE. HE ALSO HAS A HX OF CAD STENT 2013. THE PATIENT DOES WANT TO STOP SMOKING, HE IS ON A HIGH DOSE STATIN. SBP 199 REMAINS ELEVATED. MRI PENDING/COMPATIBLE WITH REVEAL LINQ PER GUIDELINES. Original Note: ARRIVED WALK-IN AT 0855, HE WAS DRIVEN IN BY A FRIEND. C/O LEFT SIDED WEAKNESS. LKW 01/11/21 2100, DISCOVERED SYMPTOMS UPON AWAKING AT 0500. HE SAID HE FELT OVERALL WEAKNESS YESTERDAY ALL DAY BUT HIS MORNING IT WAS MOSTLY ON THE LEFT SIDE. STROKE PROTOCOL WAS ACTIVATED, STAT CTH AND CTA H/N. NO BLEED, NO LVO (LARGE VESSEL OCCLUSION). I REVIEWED THE CASE WITH DR. SALINAS AND DR LITTLE. DR LITTLE IS RECOMMENDING A MRI W/O CONTRAST AND ADMIT. INITIAL BP 204/86, THEN 177/81. HE SAID HE FELT DEHYDRATED AND OUT OF IT HE GETS LIKE THIS SOMETIMES. NIHSS = 0 FOR ME. HE PASSED HIS SWALLOW SCREEN. HE IS EXCLUDED FROM [facility]PA BASED ON DELAY OF ARRIVAL FROM [facility]. HE IS KNOWN TO THE STROKE SERVICE FROM 10/10/19 RIGHT MCA AND LEFT PARIETAL STROKE. HAYDEE CAROTID STENOSIS, RIGHT CEA 2011. AAA, HTN, HLD, ?SEIZURES, +SMOKIER AND HE STILL SMOKES. WE DISCUSSED HIS PLAN OF CARE, HIS RISK FACTORS FOR STROKE, WHY HE WILL NEED A MRI AND TO BE ADMITTED. STROKE EDUCATION INITIATED. HE TOOK HIS ASPIRIN AND PLAVIX LAST NIGHT. I WILL CONTINUE TO FOLLOW.
[2021-01-12 10:54] LABS: Alanine Aminotransferase 17 U/L (0-40); Alkaline Phosphatase 76 U/L (39-117); Anion Gap 14 (12-20); Aspartate Amino Transferase 20 U/L (5-37); Bilirubin Direct 0.2 mg/dL (0.0-0.5); Bilirubin Total 0.5 mg/dL (0.0-1.0); Blood Urea Nitrogen 27 mg/dL (9-16); Calcium 8.7 mg/dL (8.4-10.2); Carbon Dioxide 22 mmol/L (22-29); Chloride 106 mmol/L (96-108); Creatinine Clr Calc Pharmacy 40.8; Estimated Glomerular Filt Rate 42; Glucose Random 172 mg/dL (60-115); Potassium 5.1 mmol/L (3.3-5.1); Sodium 137 mmol/L (135-145); Total Protein 6.7 g/dL (6.5-8.0)
--- NOTE | 2021-01-12 11:01 | PC.NURSE ---
Pt resting comfortably in bed. Awaiting disposition at this time. Pt aware of admission to hospital. Swallow screen performed by complaint coordinator RN with a passing result. VS stable. BP permissively elevated at this time. Left hand remains slightly weaker to grasp but pt reports improvement at this time. Pt denies any other new neurological symptoms. Lower extremities remain equal and strong.
[2021-01-12 11:06] LABS: Prothrombin Time Whole Bld POC 12.6 sec (11.1-13.5); ~PT, ~INR - Anti Coag Clinic 1.1 (0.9-1.1)
--- NOTE | 2021-01-12 11:20 | ED_ITS ---
HPI - General Adult General Chief complaint: Weakness Stated complaint: weakness Time Seen by Provider: 01/12/21 08:58 Source: patient Mode of arrival: ambulatory Limitations: no limitations History of Present Illness HPI narrative: 70-year-old male who presents emergency department for evaluation of left arm weakness and numbness. Patient states that he woke up this morning at 5:30 a.m. and found that he was having hard time getting dressed. He then realized that his left arm was weak in his left hand was numb which was new and was not present before he went to bed last night. He states that he has a histo ry of TIAs and strokes and thought that maybe this was a TIA. He states that his symptoms improved but persisted therefore came to the emergency department for evaluation. Patient states that at home he was able to read a book, he believes that he had no difficulty thinking or communicating and he was brought to the emergency department by a friend who states that his speech was normal. Patient states he was slightly tired yesterday but otherwise his review of systems was negative. He denied fever, chills, headache, nausea, vomiting, chest pain, shortness of breath, abdominal pain, diarrhea, myalgias, arthralgias, loss of sense of taste or smell. Patient has a history stroke in 2019 and he states that prior to the stroke he did have a TIA. Patient also states that he had a right carotid endarterectomy. 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 The patient states that he had a right carotid endarterectomy in 2011. Patient does have history of coronary disease and had myocardial infarction in 2013 with 3 stents. The patient has a history of chronic hepatitis B which is treated with HIV medications (Descovy), he does not have HIV disease. Related Data Home Medications Medication Instructions Recorded Confirmed aspirin 81 mg tablet,delayed 81 mg PO DAILY 09/10/20 12/31/20 release cholecalciferol (vitamin D3) 50 50 mcg PO DAILY 09/10/20 12/31/20 mcg (2,000 unit) capsule dorzolamide 2 % eye drops 1 drp OPHTHALMIC (EYE) TID 09/10/20 12/31/20 emtricitabine 200 mg-tenofovir 1 tab PO DAILY 09/10/20 12/31/20 alafenamide fumarate 25 mg tablet latanoprost 0.005 % eye drops 1 drp OPHTHALMIC (EYE) DAILY 09/10/20 12/31/20 metoprolol tartrate 25 mg tablet 12.5 mg PO BID 09/10/20 12/31/20 nitroglycerin 0.4 mg sublingual 0.4 mg SUBLINGUAL Q5M PRN 09/10/20 12/31/20 tablet budesonide-formoterol HFA 80 2 puff PO BID 12/31/20 12/31/20 mcg-4.5 mcg/actuation aerosol inhaler escitalopram oxalate 10 mg tablet 10 mg PO DAILY 12/31/20 12/31/20 insulin aspart U-100 100 unit/mL 21 unit SUBCUT TID ml 12/31/20 12/31/20 (3 mL) subcutaneous pen insulin degludec 100 unit/mL (3 50 unit SUBCUT DAILY ml 12/31/20 12/31/20 mL) subcutaneous pen Previous Rx's Medication Instructions Recorded blood sugar diagnostic #100 ea 09/23/20 clopidogrel 75 mg tablet 75 mg PO DAILY #90 tab 11/26/20 ezetimibe 10 mg tablet 10 mg PO DAILY 90 Days #90 tab 11/26/20 atorvastatin 80 mg tablet 80 mg PO DAILY #90 cap 12/28/20 lisinopril 20 mg tablet 20 mg PO BID #60 tab 12/28/20 Allergies Allergy/AdvReac Type Severity Reaction Status Date / Time No Known Allergies Allergy Verified 12/31/20 12:24 Review of Systems Review of Systems: Yes all other systems are reviewed and are negative [facility] Past Medical History Medical History CAD (coronary artery disease) CVA (cerebral vascular accident) HLD (hyperlipidemia) HTN (hypertension) 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 Social History Social History Alcohol intake: never Smoking Status: Current every day smoker Smoked in Last 30 Days: Yes Use of substances other than those prescribed or required for medical reasons: No Advance Directives: No Advance Directives Information Provided: No (unk) Physical Exam Vital Signs: Vital Signs: Last Vital Signs Temp 97.8 F 01/12/21 10:07 Pulse 61 01/12/21 10:59 Resp 18 01/12/21 10:59 BP 198/85 H 01/12/21 10:59 Pulse Ox 99 01/12/21 10:59 Body Mass Index 24.5 Const: General: cooperative and healthy appearing Orientation/consciousness: oriented to person and oriented to place Limitations: no limitations HENMT: Head: Yes normal to inspection, Yes normocephalic and Yes atraumatic Ears: external ears normal General nose exam: Normal external nose present Face and sinus: Yes normal facial exam Mouth: Normal oral and palatal mucosa present Throat: Yes posterior oropharynx normal Eyes: Periorbital: periorbital findings normal Eyelids: Yes eyelids normal Conjunctivae: conjunctivae normal Sclerae: sclerae normal Corneas: corneas normal Pupils: Equal, round and reactive pupils present Direct Ophthalmoscopy: normal light reflex Neck: Neck: Yes full ROM, Yes no lymphadenopathy, Yes no meningeal signs, Yes trachea midline and Yes supple Chest: Chest palpation & inspection: normal inspection of the chest and normal palpation of entire chest wall Resp: Effort & Inspection: normal respiratory effort and able to speak in complete sentences Auscultation: clear to auscultation bilaterally Cardio: Rate: regular rate Rhythm: regular rhythm Heart sounds: S1 normal heart sound present, S2 normal heart sound present and no murmurs GI: Inspection: Yes normal to inspection Palpation (GI): Soft to palpation, nontender, no guarding, not rigid and No hepatosplenomegaly present : General: Yes no CVA tenderness Back/Spine/Pelvis: Back: no CVA tenderness Cervical Spine: normal cervical lordosis Thoracic/Lumbar Spine: thoracic and lumbar spine normal to inspection Skin: Lesions: no lesions Rashes: no rashes Wounds: no wounds Neuro: General: oriented to person, oriented to place and no meningeal signs Cranial nerves: Yes CN's II-XII intact bilaterally and Yes Equal, round and reactive pupils present Cognition (Neuro): normal cognition Motor exam (neuro): Other motor observations present (Patient has some very slight weakness of the left upper extremity compared ) Sensory Exam: other (Normal light touch, bilaterally symmetric) Extrem: General: Yes normal to inspection and Yes full ROM Psych: Appearance: well kempt Mental Status: mental status grossly normal Speech and movement: Normal speech and movement present Affect: normal aff ect Attitude: cooperative Thought process: Normal thought process present Thought content: Normal thought content present NIH Stroke Scale Internal: Initial- Upon Arrival Level of Consciousness: Alert Level of Consciousness Questions: Answers both questions correctly Level of Consciousness Commands: Performs both tasks correctly Best Gaze: Normal Visual: No visual loss Facial Palsy: Normal Motor Arm (Right): No drift Motor Arm (Left): No drift Motor Leg (Right): No drift Motor Leg (Left): No drift Limb Ataxia: Absent Sensory: Normal Best Language: No aphasia Dysarthia: Normal Extinction and Inattention: No abnormality Score: 0 Course Course Course Narrative: 70-year-old male who presents emergency department for evaluation of left arm weakness and left arm numbness which he woke up with at 5:30 a.m.. The patient's physical examination revealed some very subtle weakness of the left upper extremity compared to the right upper extremity however he did not have a drift and his NIH stroke scale was 0. The patient woke up with the symptoms therefore he was outside of the thrombolytics window. The patient's laboratory evaluation did reveal an elevation in his BUN and creatinine of 27 and 1.65. PTT was slightly elevated at 40. CT scan of the head did not reveal any acute bleed, the radiologist felt that the patient may have a new right anterior centrum semi ovale the hypodensity extending into the external capsule suggesting of an acute infarct. CTA of the head and neck revealed no clear retrievable clots however the patient does have arthritis plaque causing 40% stenosis of the right common carotid artery and a thick irregular also plaque at the right carotid bifurcation causing 50% tandem stenosis at the origin of the right internal carotid artery. These findings were discussed with the stroke neurologist, Dr. Drummond who felt the patient should be admitted for further evaluation for possible acute stroke and for an MRI of the brain without contrast. He agreed that the patient was outside of the thrombolytics window. The patient takes his Plavix and aspirin at night and he took these medications last night therefore they were not given today. I did discuss the patient's presentation with the covering hospitalist Dr. Neri the patient will be admitted for further treatment and evaluation of his stroke. Medical Decision Making Lab Data Result diagrams: 01/12/21 09:29 01/12/21 10:17 Labs: Lab Results 01/12/21 01/12/21 01/12/21 Range/Units 09:29 09: 09:29 WBC 10.6 (4.8-10.8) X10*3/uL RBC 4.99 (4.60-5.80) X10*6/uL Hgb 16.3 (14.0-18.0) g/dl Hct 48.7 (42-52) % MCV 97.6 (80-98) fL MCH 32.7 (27.0-33.0) pg MCHC 33.5 (31.0-36.0) g/dl RDW 13.2 (11.0-16.0) % Plt Count 294 (160-400) X10*3/uL MPV 9.1 L (9.4-12.4) fL Immature Gran % (Auto) 0.3 (0.0-0.4) % Neut % (Auto) 70.6 (45-73) % Lymph % (Auto) 16.9 L (20-40) % [place] % (Auto) 9.3 (2-11) % Eos % (Auto) 2.3 (0-4) % Baso % (Auto) 0.6 (0-2) % Lymph # (Auto) 1.8 (1.2-4.9) X10*3/uL [place] # (Auto) 1.0 (0.1-1.2) X10*3/uL Eos # (Auto) 0.2 (0.0-0.4) X10*3/uL Baso # (Auto) 0.1 (0.0-0.2) X10*3/uL Abs Immat Gran (auto) 0.03 (0.00-0.03) X10*3/uL Absolute Neuts (auto) 7.5 (2.0-8.3) X10*3/uL Absolute Nucleated RBC 0.000 (0.0-0.012) X10*3/uL Nucleated RBC % (auto) 0.0 (0.0-0.2) /100WBC PT 10.9 (10.8-13.0) SEC Whole Blood PT (11.1-13.5) sec INR 0.9 (0.9-1.1) Whole Blood INR (0.9-1.1) APTT 40.1 H (24.1-38.0) SEC Sodium (135-145) mmol/L Potassium (3.3-5.1) mmol/L Chloride (96-108) mmol/L Carbon Dioxide (22-29) mmol/L Anion Gap (12-20) BUN (9-16) mg/dL Creatinine (0.5-1.4) mg/dL Estim Creat Clear Calc Estimated GFR POC Glucose (60-115) mg/dL Random Glucose (60-115) mg/dL Calcium (8.4-10.2) mg/dL Total Bilirubin (0.0-1.0) mg/dL Direct Bilirubin (0.0-0.5) mg/dL AST (5-37) U/L ALT (0-40) U/L Alkaline Phosphatase (39-117) U/L Total Creatine Kinase (38-174) U/L Troponin I High Sens 11.3 (<3.5-35.0) ng/L Total Protein (6.5-8.0) g/dL Albumin (3.5-5.0) g/dL 01/12/21 01/12/21 01/12/21 Range/Units 09:55 09:55 10:17 WBC (4.8-10.8) X10*3/uL RBC (4.60-5.80) X10*6/uL Hgb (14.0-18.0) g/dl Hct (42-52) % MCV (80-98) fL MCH (27.0-33.0) pg MCHC (31.0-36.0) g/dl RDW (11.0-16.0) % Plt Count (160-400) X10*3/uL MPV (9.4-12.4) fL Immature Gran % (Auto) (0.0-0.4) % Neut % (Auto) (45-73) % Lymph % (Auto) (20-40) % [place] % (Auto) (2-11) % Eos % (Auto) (0-4) % Baso % (Auto) (0-2) % Lymph # (Auto) (1.2-4.9) X10*3/uL [place] # (Auto) (0.1-1.2) X10*3/uL Eos # (Auto) (0.0-0.4) X10*3/uL Baso # (Auto) (0.0-0.2) X10*3/uL Abs Immat Gran (auto) (0.00-0.03) X10*3/uL Absolute Neuts (auto) (2.0-8.3) X10*3/uL Absolute Nucleated RBC (0.0-0.012) X10*3/uL Nucleated RBC % (auto) (0.0-0.2) /100WBC PT (10.8-13.0) SEC Whole Blood PT 12.6 (11.1-13.5) sec INR (0.9-1.1) Whole Blood INR 1.1 (0.9-1.1) APTT (24.1-38.0) SEC Sodium 137 (135-145) mmol/L Potassium 5.1 (3.3-5.1) mmol/L Chloride 106 (96-108) mmol/L Carbon Dioxide 22 (22-29) mmol/L Anion Gap 14 (12-20) BUN 27 H (9-16) mg/dL Creatinine 1.65 H (0.5-1.4) mg/dL Estim Creat Clear Calc 40.8 Estimated GFR 42 POC Glucose 168 H (60-115) mg/dL Random Glucose 172 H (60-115) mg/dL Calcium 8.7 (8.4-10.2) mg/dL Total Bilirubin 0.5 (0.0-1.0) mg/dL Direct Bilirubin 0.2 (0.0-0.5) mg/dL AST 20 (5-37) U/L ALT 17 (0-40) U/L Alkaline Phosphatase 76 (39-117) U/L Total Creatine Kinase 91 (38-174) U/L Troponin I High Sens (<3.5-35.0) ng/L Total Protein 6.7 (6.5-8.0) g/dL Albumin 4.0 (3.5-5.0) g/dL ECG Data Attestation: I personally reviewed and interpreted this ECG as follows: Interpretation: 0900: Sinus bradycardia with a rate of 59, normal NC interval, prolonged QRS interval 140 milliseconds, normal QTC interval of 445 milliseconds, no ST segment elevation or depression, right bundle branch block, this is an abnormal EKG but there is no evidence for acute ischemia or infarction or for atrial fibrillation. Critical Care Time Critical Care Time Critical Care Time: Yes Total Critical Care Time: 35 Attestation: Critical Care: The patient was critically ill with a high probability of imminent or life threatening deterioration. I spent greater than 30 minutes of discontinuous time evaluating the patient,delivering critical care at the bedside, discussing and evaluating pertinent data with consultants. Critical care time does not include time spent performing separately billable procedures or teaching. Total time spent performing critical care was 35 minutes. Discharge Plan Discharge Prescriptions: No Action (DME) Blood Glucose Test Strip See Rx Instructions .ROUTE .MEDSUPPLY Qty: 100 RF: 11 ezetimibe [Zetia] 10 mg tablet 10 mg PO DAILY 90 Days Qty: 90 RF: 1 clopidogrel [Plavix] 75 mg tablet 75 mg PO DAILY Qty: 90 RF: 1 atorvastatin 80 mg tablet 80 mg PO DAILY Qty: 90 RF: 11 lisinopril 20 mg tablet 20 mg PO BID Qty: 60 RF: 2 escitalopram oxalate 10 mg tablet 10 mg PO DAILY RF: 0 budesonide-formoterol 80-4.5 mcg/actuation HFA aerosol inhaler 2 puff PO BID RF: 0 metoprolol tartrate 25 mg tablet 12.5 mg PO BID RF: 0 latanoprost [Xalatan] 0.005 % drops 1 drp ophthalmic (eye) DAILY RF: 0 dorzolamide 2 % drops 1 drp ophthalmic (eye) TID RF: 0 cholecalciferol (vitamin D3) 50 mcg (2,000 unit) capsule 50 mcg PO DAILY RF: 0 aspirin 81 mg tablet,delayed release (DR/EC) 81 mg PO DAILY RF: 0 nitroglycerin 0.4 mg tablet, sublingual 0.4 mg sublingual Q5M PRNRF: 0 [place] 200-25 mg tablet 1 tab PO DAILY RF: 0 insulin aspart U-100 [Novolog Flexpen U-100 Insulin] 100 unit/mL (3 mL) insulin pen 21 unit subcut TID RF: 0 Tresiba FlexTouch U-100 100 unit/mL (3 mL) insulin pen 50 unit subcut DAILY RF: 0
--- NOTE | 2021-01-12 11:40 | PM.IMHP ---
History of Present Illness Date of Service: 01/12/21 Chief Complaint: Left upper extremity weakness 70M with past medical history of CVA with no residual deficits, right carotid stenosis status post endarterectomy. Patient presented with chief complaint of left-sided weakness. Patient awoke with the symptoms does not know how long they were present before. Patient noticed he was having difficulty dressing himself due to left upper extremity weakness. He states this lasted about 30 minutes to an hour. It has since resolved. He came to the ED. in ED CTA showed questionable age indeterminate right-sided infarcts and 40% restenoses of the right common carotid with atheromatous plaque and a thick irregular ulcerated plaque at the right carotid bifurcation causing 50% tandem stenosis. Patient was seen by neurology recommended admission. 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 Family history: reviewed and not pertinent Surgical History History of carotid endarterectomy History of heart artery stent Social History Alcohol intake: never Smoking Status: Current every day smoker Smoked in Last 30 Days: Yes Use of substances other than those prescribed or required for medical reasons: No Advance Directives: No Advance Directives Information Provided: No (unk) Meds Allergies Allergy/AdvReac Type Severity Reaction Status Date / Time No Known Allergies Allergy Verified 12/31/20 12:24 Active Medications: Current Medications Generic Name Dose Route Start Last Admin Trade Name Meg PRN Reason Stop Dose Admin Sodium Chloride 1,000 mls @ 999 mls/hr 01/12/21 11:12 Ns IV 01/12/21 12:12 .Q1H1M STA Pharmacy Consult 1 each 01/12/21 11:13 Consult Rx Perform Med Rec MISCELLANE ONCE PRN Consult order Home Medications Medication Instructions Recorded Confirmed Last Taken Type aspirin 81 mg tablet,delayed 81 mg PO DAILY 09/10/20 12/31/20 Unknown History release cholecalciferol (vitamin D3) 50 50 mcg PO DAILY 09/10/20 12/31/20 Unknown History mcg (2,000 unit) capsule dorzolamide 2 % eye drops 1 drp OPHTHALMIC (EYE) TID 09/10/20 12/31/20 Unknown History emtricitabine 200 mg-tenofovir 1 tab PO DAILY 09/10/20 12/31/20 Unknown History alafenamide fumarate 25 mg tablet latanoprost 0.005 % eye drops 1 drp OPHTHALMIC (EYE) DAILY 09/10/20 12/31/20 Unknown History metoprolol tartrate 25 mg tablet 12.5 mg PO BID 09/10/20 12/31/20 Unknown History nitroglycerin 0.4 mg sublingual 0.4 mg SUBLINGUAL Q5M PRN 09/10/20 12/31/20 Unknown History tablet budesonide-formoterol HFA 80 2 puff PO BID 12/31/20 12/31/20 Unknown History mcg-4.5 mcg/actuation aerosol inhaler escitalopram oxalate 10 mg tablet 10 mg PO DAILY 12/31/20 12/31/20 Unknown History insulin aspart U-100 100 unit/mL 21 unit SUBCUT TID ml 12/31/20 12/31/20 Unknown History (3 mL) subcutaneous pen insulin degludec 100 unit/mL (3 50 unit SUBCUT DAILY ml 12/31/20 12/31/20 Unknown History mL) subcutaneous pen Physical Exam Vital Signs and Narrative: Vital Signs: Last Vital Signs Temp 97.8 F 01/12/21 10:07 Pulse 61 01/12/21 10:59 Resp 18 01/12/21 10:59 BP 198/85 H 01/12/21 10:59 Pulse Ox 99 01/12/21 10:59 Body Mass Index 24.5 General: no acute distress HEENT: atraumatic Neck: normal to visual inspection CVS: S1, S2, RRR Resp: CTA bilateral Chest: non tender GI: soft, non tender, non distended : no CVA tenderness Skin: no rashes Extremities: no edema Neuro: Oriented X3, grossly intact Psych: cooperative Results Labs CBC and Chem 7: 01/12/21 09:29 01/12/21 10:17 Labs: Laboratory Results - last 24 hr 01/12/21 01/12/21 01/12/21 09:29 09:29 09:29 MCV 97.6 MCH 32.7 MCHC 33.5 RDW 13.2 Plt Count 294 MPV 9.1 L Immature Gran % (Auto) 0.3 Neut % (Auto) 70.6 Lymph % (Auto) 16.9 L [place] % (Auto) 9.3 Eos % (Auto) 2.3 Baso % (Auto) 0.6 Lymph # (Auto) 1.8 [place] # (Auto) 1.0 Eos # (Auto) 0.2 Baso # (Auto) 0.1 Abs Immat Gran (auto) 0.03 Absolute Neuts (auto) 7.5 Absolute Nucleated RBC 0.000 Nucleated RBC % (auto) 0.0 PT 10.9 Whole Blood PT INR 0.9 Whole Blood INR APTT 40.1 H Anion Gap Estim Creat Clear Calc Estimated GFR POC Glucose Random Glucose Calcium Total Bilirubin Direct Bilirubin AST ALT Alkaline Phosphatase Total Creatine Kinase Troponin I High Sens 11.3 Total Protein Albumin 01/12/21 01/12/21 01/12/21 09:55 09:55 10:17 MCV MCH MCHC RDW Plt Count MPV Immature Gran % (Auto) Neut % (Auto) Lymph % (Auto) [place] % (Auto) Eos % (Auto) Baso % (Auto) Lymph # (Auto) [place] # (Auto) Eos # (Auto) Baso # (Auto) Abs Immat Gran (auto) Absolute Neuts (auto) Absolute Nucleated RBC Nucleated RBC % (auto) PT Whole Blood PT 12.6 INR Whole Blood INR 1.1 APTT Anion Gap 14 Estim Creat Clear Calc 40.8 Estimated GFR 42 POC Glucose 168 H Random Glucose 172 H Calcium 8.7 Total Bilirubin 0.5 Direct Bilirubin 0.2 AST 20 ALT 17 Alkaline Phosphatase 76 Total Creatine Kinase 91 Troponin I High Sens Total Protein 6.7 Albumin 4.0 Imaging Radiologist's Impressions: Impressions Head CT 01/12/21 09:21 IMPRESSION: New right anterior centrum semiovale hypodensity extending to the external capsule suggestive of infarct. There is no acute intracranial bleed. Mild cerebral volume loss with chronic small vessel ischemic changes in both cerebral hemispheres. This critical result was discussed with Dr. Niko Gamez at 950 hours on 01/12/2021. It was ascertained that the content and urgency of the report was understood at the time of direct communication. Head/Neck CTA 01/12/21 09:21 IMPRESSION: There are multiple infarcts of indeterminate age involving the right basal ganglia and right centrum semiovale. There are also a few small age indeterminate cortical infarcts involving the right middle frontal gyrus and right precentral gyrus. Many of these infarcts are new when compared to the CT scan of the head from 11/18/2019. The CT angiogram reveals an eccentric atheromatous plaque causing 40% stenosis at the origin of the right common carotid artery and thick irregular ulcerated plaque at the right carotid bifurcation causing 50% tandem stenosis at the origin of the right internal carotid artery. The right external carotid artery is also completely occluded at its origin. A comparatively small amount of partially calcified atheromatous plaque involves the left carotid bifurcation causing no stenosis of the left internal carotid artery. There is near occlusive stenosis at the origin of the left vertebral artery. The right vertebral artery is patent. No high-grade stenosis or proximal occlusion is visualized within the intracranial vessels. This critical result was discussed with Wilner Gamez at 10:19 AM on 01/12/2021 and it was ascertained that the content and urgency of the report was understood at the time of direct communication. Assessment and Plan (1) Stroke: Qualifiers: CVA mechanism: unspecified Qualified Code(s): I63.9 - Cerebral infarction, unspecified Status: Acute 70M presented with left sided weakness CVA/TIA high risk for further stroke given right carotid lesions and stroke history admit to telemetry asa/plavix/statin MRI neuro pt/ot passed dysphagia screen permissive htn DM insulin CAD DAPL, statin htn bp meds on hold HBV emtricitabine/tenofivir
[2021-01-12 12:17] LABS: COVID-19 Test Negative (Negative)
--- NOTE | 2021-01-12 12:43 | PC.NURSE ---
Pt returned from MRI. He offers no complaints at this time. Awaiting admission.
[2021-01-12] MEDS: 0.9 % Sodium Chloride 1,000 ML 999 ML IV (13:48)
--- NOTE | 2021-01-12 17:28 | PC.NURSE ---
Pt resting in bed comfortably. Report given to gwyn DO on imc
--- NOTE | 2021-01-12 18:03 | P.CNNE_ITS ---
History of Present Illness Data of Consult Service Date: 01/12/21 Primary Care Provider: Ryder Lou MD HPI Reason for consult: Woke up with left upper extremity weakness This is a 70-year-old man with a previous history of stroke with no residue will deficit, multiple stroke risk factors including hypertension, hyperlipidemia, type 2 diabetes previous TIA and coronary artery disease. He has had a previous right carotid endarterectomy. He will come this morning with clumsiness and weakness in the left upper extremity and found it difficult to get dressed. There was no facial droop her speech impediment. No headache or dizziness. Her his symptoms resolved within an hour. On admission he had an MRI of the brain which shows to acute smaller cortical infarcts in the right precentral gyrus in the right parietal lobe and multiple areas of previous strokes in both hemispheres in the white matter and basal ganglia as well as extensive microvascular white matter disease. His CTA showed no intracranial occlusions. There is no significant left carotid occlusion. A right carotid is about 40% narrowed by a plaque which may be ulcerated. There is also a tight stenosis of one vertebral artery. Review of Systems Eyes: Eyes: Reports no additional eye complaints ENT: Reports system reviewed and no additional complaints, except as documented and Reports Normal hearing present Cardiovascular: Cardiovascular: Reports no additional cardiovascular complaints Respiratory: Respiratory: Reports no additional respiratory complaints Gastrointestinal: Gastrointestinal: Reports no additional gastrointestinal complaints Genitourinary: Genitourinary: Reports no additional male genitourinary complaints Musculoskeletal: Musculoskeletal: Reports no additional musculoskeletal complaints Integumentary/Breasts: Skin/Breast: Reports system reviewed and no additional complaints, except as docu Neurologic: Reports as per HPI and Reports Normal hearing present Psychiatric: Psychiatric: Reports as per HPI Endocrine: Endocrine: Reports no additional endocrine complaints Hematologic/Lymphatic: Hematologic/Lymphatic: Reports no additional hematologic/lymphatic complaints Allergic/Immunologic: Allergic/Immunologic: Reports no additional allergic /immunologic complaints [facility] Past Medical History Medical History CAD (coronary artery disease) CVA (cerebral vascular accident) HLD (hyperlipidemia) HTN (hypertension) Pituitary macroadenoma Status post placement of implantable loop recorder T1DM (type 1 diabetes mellitus) TIA (transient ischemic attack) Vitamin D deficiency Family History Family History Father CVD (cardiovascular disease) AAA (abdominal aortic aneurysm) Mother No problems noted. Family history: reviewed and not pertinent Surgical History Surgical History History of carotid endarterectomy History of heart artery stent Social History Social History Alcohol intake: never Smoking Status: Current every day smoker Smoked in Last 30 Days: Yes Use of substances other than those prescribed or required for medical reasons: No Advance Directives: No Advance Directives Information Provided: No (unk) Meds Allergies Allergy/AdvReac Type Severity Reaction Status Date / Time No Known Allergies Allergy Verified 01/12/21 14:23 Active Medications: Current Medications Generic Name Dose Route Start Last Admin Trade Name Freq PRN Reason Stop Dose Admin Aspirin 81 mg 01/13/21 09:00 Aspirin 81 Mg Tab.Chew PO DAILY [facility] Atorvastatin Calcium 80 mg 01/12/21 21:00 Atorvastatin Calcium 80 Mg Tablet PO BEDTIME [facility] Clopidogrel Bisulfate 75 mg 01/13/21 09:00 Clopidogrel Bisulfate 75 Mg Tablet PO DAILY [facility] Emtricitabine/Tenofovir Alafenamide 1 tab 01/13/21 09:00 Emtricitabine/Tenofov Alafenam Tablet PO DAILY [facility] Enoxaparin Sodium 30 mg 01/12/21 18:00 Enoxaparin Sodium 30 Mg/0.3 Ml Syringe SUBCUT Q24H [facility] Escitalopram Oxalate 10 mg 01/13/21 09:00 Escitalopram Oxalate 10 Mg Tablet PO DAILY [facility] Insulin Human Lispro 0 unit 01/12/21 16:52 Insulin Lispro 100 Unit/Ml 3 Ml Vial SUBCUT QIDACHS [facility] Protocol Latanoprost 1 drop 01/12/21 21:00 Latanoprost 0.005 % Ophth Sandy 2.5 Ml Drops EYE-BOTH BEDTIME [facility] Metoprolol Tartrate 12.5 mg 01/12/21 21:00 Metoprolol Tartrate 12.5 Mg Halftab PO BID [facility] Protocol Pharmacy Consult 1 each 01/12/21 11:13 Consult Rx Perform Med Rec MISCELLANE ONCE PRN Consult order Sodium Chloride 3 ml 01/12/21 16:52 0.9 % Sodium Chloride Flush 3 Ml Syringe IVFLUSH QSHIFT [facility] Home Medications Medication Instructions Recorded Confirmed Last Taken Type aspirin 81 mg tablet,delayed 81 mg PO DAILY 11/19/20 03/23/21 03/22/21 History release cholecalciferol (vitamin D3) 50 50 mcg PO DAILY 09/10/20 01/12/21 01/11/21 History mcg (2,000 unit) capsule emtricitabine 200 mg-tenofovir 1 tab PO DAILY 09/10/20 01/12/21 Unknown History alafenamide fumarate 25 mg tablet latanoprost 0.005 % eye drops 1 drp OPHTHALMIC (EYE) BEDTIME 09/10/20 01/12/21 01/11/21 History metoprolol tartrate 25 mg tablet 25 mg PO BID 09/10/20 01/12/21 01/12/21 History nitroglycerin 0.4 mg sublingual 0.4 mg SUBLINGUAL Q5M PRN 09/10/20 01/12/21 Unknown History tablet budesonide-formoterol HFA 80 2 puff PO BID 12/31/20 01/12/21 Unknown History mcg-4.5 mcg/actuation aerosol inhaler escitalopram oxalate 10 mg tablet 10 mg PO DAILY 12/31/20 01/12/21 01/11/21 History insulin aspart U-100 100 unit/mL 0 unit SUBCUT QIDACHS ml 12/31/20 01/12/21 Unknown History (3 mL) subcutaneous pen insulin degludec 100 unit/mL (3 50 unit SUBCUT DAILY ml 12/31/20 01/12/21 01/11/21 History mL) subcutaneous pen atorvastatin 80 mg PO BEDTIME 01/12/21 01/12/21 01/11/21 History dorzolamide-timolol 1 drp OPHTHALMIC (EYE) BID 01/12/21 01/12/21 01/11/21 History lisinopril 40 mg PO BID 01/12/21 01/12/21 01/12/21 History melatonin 5 mg PO BEDTIME 01/12/21 01/12/21 01/11/21 History Physical Exam Vital Signs: Vital Signs: Last Vital Signs Temp 98.2 F 01/12/21 16:48 Pulse 64 01/12/21 16:48 Resp 12 01/12/21 16:48 BP 169/69 H 01/12/21 16:48 Pulse Ox 99 01/12/21 16:48 Body Mass Index 24.5 Const: General: cooperative, comfortable, no acute distress, well developed, alert and awake Nutritional Appearance: well nourished Orientation/consciousness: oriented to person, oriented to place and oriented to time Limitations: no limitations HENMT: Head: Yes normal to inspection, Yes normocephalic and Yes atraumatic Ears: hearing grossly normal bilaterally General nose exam: Normal external nose present Face and sinus: Yes normal facial exam Mouth: Normal oral and palatal mucosa present Eyes: General: appearance normal, both eyes and all related structures Visual Nugent: normal visual nugent by confrontation Alignment and Position: alignment normal Periorbital: periorbital findings normal Eyelids: Yes eyelids normal Conjunctivae: conjunctivae normal Sclerae: sclerae normal Corneas: corneas normal Pupils: Equal, round and reactive pupils present and Pupil accommodation reflex normal EOM: EOMs intact bilaterally Direct Ophthalmoscopy: normal light reflex Neck: Neck: Yes normal visual inspection, Yes full ROM and Yes no meningeal signs Thyroid: Thyroid normal Carotids: normal carotid upstroke and bounding pulses Chest: Chest palpation & inspection: normal inspection of the chest Resp: Effort & Inspection: normal respiratory effort Auscultation: clear to auscultation bilaterally Cardio: Rate: regular rate Rhythm: regular rhythm Heart sounds: S1 normal heart sound present and S2 normal heart sound present Peripheral pulses: Peripheral pulses 2+ throughout GI: Inspection: Yes normal to inspection Percussion: Yes normal to percussion Auscultation: normal bowel sounds Rectal Exam - Male: Yes deferred Back/Spine/Pelvis: Cervical Spine: normal cervical lordosis and cervical ROM normal Thoracic/Lumbar Spine: thoracic and lumbar spine normal to inspection Skin: General skin exam: no rashes or lesions noted Neuro: General: oriented to person, oriented to place, oriented to time, gait normal, tone normal, moves all extremities, Normal light touch and pain sensation, no meningeal signs, no focal motor deficits, CN's II-XI intact bilaterally, normal sensation to monofilament and deep tendon reflexes 2+ bilaterally Cranial nerves: Yes CN's II-XII intact bilaterally, Yes Equal, round and reactive pupils present, Yes Bilaterally intact EOM present, Yes Nystagmus not present, Yes Normal facial strength present, Yes Midline tongue present, Yes Normal gag reflex present, Yes Symmetric palate elevation present, Yes Normal hearing present and Yes Ability to bilaterally rotate head present Cognition (Neuro): normal cognition Speech: Other speech findings present (Neuro) Gait exam (Neuro): Normal gait present Motor exam (neuro): 5/5 motor strength present throughout, Pronator motor function not present, no tremor noted, no asterixis, Motor fasciculations not present, Normal motor muscle tone present throughout and Motor abnormalities not present Sensory Exam: Bilaterally intact graphesthesia Deep tendon reflexes (DTR's): Right triceps reflex intensity grade: 2+, Left triceps reflex intensity grade: 2+, Rt Biceps (C5, C6): 2+, Left biceps reflex intensity grade: 2+, Right brachioradialis reflex intensity grade: 2+, Left brachioradialis reflex intensity grade: 2+, Right patellar reflex intensity grade: 2+, Left patellar reflex intensity grade: 2+, Right ankle reflex intensity grade: 2+ and Left ankle reflex intensity grade: 2+ Plantar Reflex Responses: downgoing: right, left and bilateral Coordination: [id number] test normal, [id number] test normal, tandem gait normal and Romberg test negative Pupils: Normal pupillary reactivity/response: bilateral Extrem: General: Yes normal to inspection, Yes normal exam except as noted and Yes no pedal edema Psych: Appearance: grossly normal Mental Status: mental status grossly normal Speech and movement: Normal speech and movement present and Clear speech present Affect: normal affect Attitude: cooperative Thought process: Normal thought process present Results Labs CBC & Chem 7: 01/12/21 09:29 01/12/21 10:17 Labs: Short CBC 01/12/21 Range/Units 09:29 WBC 10.6 (4.8-10.8) X10*3/uL Hgb 16.3 (14.0-18.0) g/dl Hct 48.7 (42-52) % Plt Count 294 (160-400) X10*3/uL BMP 01/12/21 10:17 Sodium 137 Potassium 5.1 Chloride 106 Carbon Dioxide 22 BUN 27 H Creatinine 1.65 H Calcium 8.7 Cardiac Enzymes 01/12/21 Range/Units 10:17 Total Creatine Kinase 91 (38-174) U/L Liver Function 01/12/21 Range/Units 10:17 Total Bilirubin 0.5 (0.0-1.0) mg/dL Direct Bilirubin 0.2 (0.0-0.5) mg/dL AST 20 (5-37) U/L ALT 17 (0-40) U/L Alkaline Phosphatase 76 (39-117) U/L Albumin 4.0 (3.5-5.0) g/dL Assessment and Plan (1) Stroke: Qualifiers: CVA mechanism: unspecified Qualified Code(s): I63.9 - Cerebral infarction, unspecified Problem details: Small acute right frontal and parietal cortical infarcts. Ulcerated plaque right internal carotid artery with 40% narrowing Status: Acute Continue aspirin and Plavix. Control of blood pressure and sugar. Continue atorvastatin. Observation for 24 hours. If stable he can be discharged (2) Status post placement of implantable loop recorder: Status: Acute (3) CAD (coronary artery disease): Status: Acute (4) Pituitary macroadenoma: Problem details: Followup MRI in one year Status: Acute (5) HLD (hyperlipidemia): Qualifiers: Hyperlipidemia type: unspecified Qualified Code(s): E78.5 - Hyperlipidemia, unspecified Status: Acute (6) HTN (hypertension): Qualifiers: Hypertension type: unspecified Qualified Code(s): I10 - Essential (primary) hypertension Status: Acute (7) T1DM (type 1 diabetes mellitus): Qualifiers: Diabetes mellitus complication status: with hyperglycemia Qualified Code(s): E10.65 - Type 1 diabetes mellitus with hyperglycemia Status: Acute
[2021-01-12 20:15] LABS: Glucose, Whole Blood 247 mg/dL (60-115)
[2021-01-12] MEDS: Insulin Lispro 100 UNIT/ML 3 ML VIAL SUBCUT (20:16)
[2021-01-12] MEDS: Enoxaparin Sodium 30 MG/0.3 ML SYRINGE SUBCUT (20:16)
[2021-01-12] MEDS: Atorvastatin Calcium 80 MG TABLET PO (20:17)
[2021-01-12] MEDS: Latanoprost 0.005 % Ophth Sol 2.5 ML DROPS 1 DROP EYE-BOTH (20:17)
[2021-01-12] MEDS: Metoprolol Tartrate 12.5 MG HALFTAB PO (20:17)
[2021-01-13] MEDS: 0.9 % Sodium Chloride Flush 3 ML SYRINGE IVFLUSH ×2 (00:27→08:07)
[2021-01-13 04:00] VITALS: BP 165/65; PULSE 69; RESP 18; TEMP 36.6; O2SAT 95
[2021-01-13 06:24] LABS: MANUAL DIFF FLAG NO
[2021-01-13 06:51] LABS: Basophils Absolute Auto 0.1 X10*3/uL (0.0-0.2); Basophils Percent Auto 0.9 % (0-2); Eosinophils Absolute Auto 0.2 X10*3/uL (0.0-0.4); Hemoglobin 13.9 g/dl (14.0-18.0); Imm Gran Abs Auto 0.03 X10*3/uL (0.00-0.03); Imm Gran Pct Auto 0.4 % (0.0-0.4); Lymphocytes Absolute Auto 2.1 X10*3/uL (1.2-4.9); Lymphocytes Percent Auto 26.4 % (20-40); Mean Corpuscular HGB Conc 33.9 g/dl (31.0-36.0); Mean Corpuscular Hemoglobin 32.8 pg (27.0-33.0); Mean Corpuscular Volume 96.7 fL (80-98); Mean Platelet Volume 9.4 fL (9.4-12.4); Monocytes Absolute Auto 0.9 X10*3/uL (0.1-1.2); Monocytes Percent Auto 11.1 % (2-11); Neutrophils Absolute Auto 4.7 X10*3/uL (2.0-8.3); Neutrophils Percent Auto 58.2 % (45-73); Platelet Count 261 X10*3/uL (160-400); Red Blood Count 4.24 X10*6/uL (4.60-5.80); Red Cell Distribution Width 13.1 % (11.0-16.0)
[2021-01-13 07:03] LABS: Anion Gap 13 (12-20); Blood Urea Nitrogen 26 mg/dL (9-16); Calcium 8.5 mg/dL (8.4-10.2); Carbon Dioxide 22 mmol/L (22-29); Chloride 108 mmol/L (96-108); Cholesterol 82 mg/dL; Creatinine Clr Calc Pharmacy 42.9; Estimated Glomerular Filt Rate 44; Glucose Fasting 157 mg/dL (60-99); HDL Cholesterol 20 mg/dL; LDL Cholesterol Calculated 35 mg/dl; Potassium 4.2 mmol/L (3.3-5.1); Sodium 139 mmol/L (135-145); Triglycerides 137 mg/dL
[2021-01-13 07:31] LABS: Glucose, Whole Blood 166 mg/dL (60-115)
--- NOTE | 2021-01-13 07:41 | PM.EVENT ---
Event Note Date of Service: 01/13/21 Event Note: Images reviewed. Full consult to follow.
[2021-01-13 07:49] VITALS: BP 145/77; PULSE 67; RESP 17; TEMP 36.8; O2SAT 96
[2021-01-13] MEDS: Metoprolol Tartrate 12.5 MG HALFTAB PO ×2 (08:06→20:49)
[2021-01-13] MEDS: Escitalopram Oxalate 10 MG TABLET PO (08:06)
[2021-01-13] MEDS: Emtricitabine/Tenofov Alafenam TABLET 1 TAB PO (08:06)
[2021-01-13] MEDS: Aspirin 81 MG TAB.CHEW PO (08:06)
[2021-01-13] MEDS: Clopidogrel Bisulfate 75 MG TABLET PO (08:06)
[2021-01-13] MEDS: Insulin Lispro 100 UNIT/ML 3 ML VIAL SUBCUT ×3 (08:07→21:39)
--- NOTE | 2021-01-13 08:38 | MHC.CM.PN ---
CM met with Patient at Bedside and addressed IMM with him, providing him with original and a copy placed on the chart.Patient is here with a CVA and per documentation, no residual effects. Patient does not feel that he will need VNA at time of dc. CM has initiated dc planning and will follow for possible need to adjust the dc plan. PCP is Dr. Ryder Lou. Patient states that he has completed a HCP but does not recall who he named as his Agent.
[2021-01-13 08:45] LABS: Glucose Urine UA 500 MG/DL (NEG); Leukocyte Esterase Urine NEG (NEG); Nitrite Urine NEG (NEG); Specific Gravity - Urine 1.015 (1.005-1.025); Urine Blood NEG (NEG); Urine Ketones NEG (NEG); Urine Protein NEG (NEG-TRACE)
[2021-01-13 08:47] LABS: Appearance Urine CLEAR; Color Urine YELLOW
[2021-01-13 11:16] VITALS: BP 156/79; PULSE 72; RESP 18; TEMP 36.6; O2SAT 97
[2021-01-13 11:16] LABS: Glucose, Whole Blood 236 mg/dL (60-115)
--- NOTE | 2021-01-13 11:22 | PM.CNGS ---
History of Present Illness Consult details Consult date: 01/13/21 Reason for consult: other (Stroke) Narrative: 70-year-old pleasant gentleman well known to me for history of carotid stenosis. Of note he has had prior right carotid endarterectomy by Dr. Gasca nearly 6-7 years ago. He had a prior episode of carotid stenosis with stroke. He was subsequently referred to Dr. Ventura at [facility]. No intervention was deemed at that time. He has had a most recent recurrent event where there was stroke confirmed by CT. From a physiologically standpoint his left arm weakness and numbness has totally resolved. He feels much better since admission. In contrast to his prior admission there was no true syncopal episode this time. He now presents to us for vascular evaluation. [facility] Past Medical History Medical History CAD (coronary artery disease) CVA (cerebral vascular accident) HLD (hyperlipidemia) HTN (hypertension) Pituitary macroadenoma Status post placement of implantable loop recorder T1DM (type 1 diabetes mellitus) TIA (transient ischemic attack) Vitamin D deficiency Family History Family History Father CVD (cardiovascular disease) AAA (abdominal aortic aneurysm) Mother No problems noted. Family history: reviewed and not pertinent Surgical History Surgical History History of carotid endarterectomy History of heart artery stent Social History Social History Household Members: None Housing: House Alcohol intake: never Smoking Status: Current every day smoker Packs Per Day: 1 Cigarettes Per Day: 20.0 Years Smoked: 30 Smoked in Last 30 Days: Yes Patient Interested in Nicotine Replacement: No Patient Given Instructions on How to Stop Smoking: Yes Date Education Initiated: 01/12/21 Use of substances other than those prescribed or required for medical reasons: No Currently Displaying Signs/Symptoms of Drug Intoxication Withdrawal: No Have you been hit, kicked, punched, or otherwise hurt by someone within the past year? If so, by whom?: No Do you feel safe in your current relationship?: Yes Is there a partner from a previous relationship who is making you feel unsafe now?: No Are you made to feel afraid or neglected: No Advance Directives: No Advance Directives Information Provided: No (unk) Do you have thoughts of harming others: None Do you have a plan to hurt others: No Plan Recently lost weight without trying: No service: No Current occupational status: retired Meds Allergies Allergy/AdvReac Type Severity Reaction Status Date / Time No Known Allergies Allergy Verified 01/12/21 14:23 Active Medications: Current Medications Generic Name Dose Route Start Last Admin Trade Name Freq PRN Reason Stop Dose Admin Aspirin 81 mg 01/13/21 09:00 01/13/21 08:06 Aspirin 81 Mg Tab.Chew PO 81 mg DAILY BILLY Administration Atorvastatin Calcium 80 mg 01/12/21 21:00 01/12/21 20:17 Atorvastatin Calcium 80 Mg Tablet PO 80 mg BEDTIME BILLY Administration Clopidogrel Bisulfate 75 mg 01/13/21 09:00 01/13/21 08:06 Clopidogrel Bisulfate 75 Mg Tablet PO 75 mg DAILY BILLY Administration Emtricitabine/Tenofovir Alafenamide 1 tab 01/13/21 09:00 01/13/21 08:06 Emtricitabine/Tenofov Alafenam Tablet PO 1 tab DAILY BILLY Administration Enoxaparin Sodium 30 mg 01/12/21 18:00 01/12/21 20:16 Enoxaparin Sodium 30 Mg/0.3 Ml Syringe SUBCUT 30 mg Q24H BILLY Administration Escitalopram Oxalate 10 mg 01/13/21 09:00 01/13/21 08:06 Escitalopram Oxalate 10 Mg Tablet PO 10 mg DAILY BILLY Administration Insulin Human Lispro 0 unit 01/12/21 16:52 01/13/21 08:07 Insulin Lispro 100 Unit/Ml 3 Ml Vial SUBCUT 2 unit QIDACHS BILLY Administration Protocol Latanoprost 1 drop 01/12/21 21:00 01/12/21 20:17 Latanoprost 0.005 % Ophth Sandy 2.5 Ml Drops EYE-BOTH 1 drop BEDTIME BILLY Administration Metoprolol Tartrate 12.5 mg 01/12/21 21:00 01/13/21 08:06 Metoprolol Tartrate 12.5 Mg Halftab PO 12.5 mg BID BILLY Administration Protocol Pharmacy Consult 1 each 01/12/21 11:13 Consult Rx Perform Med Rec MISCELLANE ONCE PRN Consult order Sodium Chloride 3 ml 01/12/21 16:52 01/13/21 08:07 0.9 % Sodium Chloride Flush 3 Ml Syringe IVFLUSH 3 ml [facility] Administration Home Medications Medication Instructions Recorded Confirmed Last Taken Type aspirin 81 mg tablet,delayed 81 mg PO DAILY 09/10/20 01/12/21 01/11/21 History release cholecalciferol (vitamin D3) 50 50 mcg PO DAILY 09/10/20 01/12/21 01/11/21 History mcg (2,000 unit) capsule emtricitabine 200 mg-tenofovir 1 tab PO DAILY 09/10/20 01/12/21 Unknown History alafenamide fumarate 25 mg tablet latanoprost 0.005 % eye drops 1 drp OPHTHALMIC (EYE) BEDTIME 09/10/20 01/12/21 01/11/21 History metoprolol tartrate 25 mg tablet 25 mg PO BID 09/10/20 01/12/21 01/12/21 History nitroglycerin 0.4 mg sublingual 0.4 mg SUBLINGUAL Q5M PRN 09/10/20 01/12/21 Unknown History tablet budesonide-formoterol HFA 80 2 puff PO BID 12/31/20 01/12/21 Unknown History mcg-4.5 mcg/actuation aerosol inhaler escitalopram oxalate 10 mg tablet 10 mg PO DAILY 12/31/20 01/12/21 01/11/21 History insulin aspart U-100 100 unit/mL 0 unit SUBCUT QIDACHS ml 12/31/20 01/12/21 Unknown History (3 mL) subcutaneous pen insulin degludec 100 unit/mL (3 50 unit SUBCUT DAILY ml 12/31/20 01/12/21 01/11/21 History mL) subcutaneous pen atorvastatin 80 mg PO BEDTIME 01/12/21 01/12/21 01/11/21 History dorzolamide-timolol 1 drp OPHTHALMIC (EYE) BID 01/12/21 01/12/21 01/11/21 History lisinopril 40 mg PO BID 01/12/21 01/12/21 01/12/21 History melatonin 5 mg PO BEDTIME 01/12/21 01/12/21 01/11/21 History Physical Exam Vital Signs: Vital Signs: Last Vital Signs Temp 98 F 01/13/21 11:16 Pulse 72 01/13/21 11:16 Resp 18 01/13/21 11:16 BP 156/79 H 01/13/21 11:16 Pulse Ox 97 01/13/21 11:16 Body Mass Index 24.5 Const: General: cooperative, healthy appearing and no acute distress Orientation/consciousness: oriented to person, oriented to place and oriented to time HENMT: Head: Yes normal to inspection Neck: Carotids: no bruits Chest: Chest palpation & inspection: normal inspection of the chest Resp: Effort & Inspection: normal respiratory effort and able to speak in complete sentences Auscultation: clear to auscultation bilaterally Cardio: Rate: regular rate Heart sounds: S1 normal heart sound present and S2 normal heart sound present GI: Inspection: Yes normal to inspection Skin: General skin exam: no rashes or lesions noted Wounds: no wounds Neuro: General: oriented to person, oriented to place, oriented to time and CN's II-XI intact bilaterally Extrem: General: Yes normal to inspection, Yes full ROM and Yes no clubbing, cyanosis or edema Psych: Appearance: grossly normal and well kempt Speech and movement: Normal speech and movement present Affect: normal affect Results Labs Result diagrams: 01/13/21 05:49 01/13/21 05:49 Labs: Abnormal lab results 01/12/21 01/13/21 01/13/21 Range/Units 20:10 05:49 05:49 RBC 4.24 L (4.60-5.80) X10*6/uL Hgb 13.9 L (14.0-18.0) g/dl Hct 41.0 L (42-52) % [place] % (Auto) 11.1 H (2-11) % BUN 26 H (9-16) mg/dL Creatinine 1.57 H (0.5-1.4) mg/dL POC Glucose 247 H (60-115) mg/dL Fasting Glucose 157 H (60-99) mg/dL Urine Glucose (UA) (NEG) MG/DL 01/13/21 01/13/21 01/13/21 Range/Units 07:09 08:20 11:04 RBC (4.60-5.80) X10*6/uL Hgb (14.0-18.0) g/dl Hct (42-52) % [place] % (Auto) (2-11) % BUN (9-16) mg/dL Creatinine (0.5-1.4) mg/dL POC Glucose 166 H 236 H (60-115) mg/dL Fasting Glucose (60-99) mg/dL Urine Glucose (UA) 500 H (NEG) MG/DL Short CBC 01/13/21 Range/Units 05:49 WBC 8.0 (4.8-10.8) X10*3/uL Hgb 13.9 L (14.0-18.0) g/dl Hct 41.0 L (42-52) % Plt Count 261 (160-400) X10*3/uL BMP 01/13/21 05:49 Sodium 139 Potassium 4.2 Chloride 108 Carbon Dioxide 22 BUN 26 H Creatinine 1.57 H Calcium 8.5 Urine 01/13/21 Range/Units 08:20 Urine Color YELLOW Urine Appearance CLEAR Urine pH 7.0 (5.0-8.0) Ur Specific [place] 1.015 (1.005-1.025) Urine Protein NEG (NEG-TRACE) MG/DL Urine Glucose (UA) 500 H (NEG) MG/DL All other labs normal. Assessment and Plan (1) Stroke due to stenosis of right carotid artery: Status: Acute In short patient has Croke right carotid stenosis. It is in the neighborhood of 50% with tandem stenosis and significant atherosclerotic and thrombotic disease. I personally reviewed the images any reviewed these images in person with Dr. Ambrosio from Radiology. This may be the potential source of his recurrent stroke. I will Re refer this patient to Dr. Ventura from [facility] who performs carotid stents. He is stable from my perspective for discharge. He will follow up with us on an as-needed basis. Thank you for allowing us to assist in his care.
--- NOTE | 2021-01-13 12:38 | PC.NURSE ---
1125 c/o left arm weakness. Hand has some numbness, unable to move fingers. Vision is clear.No diff swallowing. VSS blood sugar checked. MD notified. Stroke RN Sagrario present. Pt transported to CT scan via stretcher. 1215. returned to room. Neuros unchanged from when he left floor. Able to take sips of water without diff. Fingers still somewhat numb. Able to move paulo LE without diff. Denies pain.
--- NOTE | 2021-01-13 13:27 | PM.PNCARD ---
Subjective Subjective Date of Service: 01/13/21 Principal diagnosis: ILR interrogation Physical Exam Vital Signs: Last Vital Signs Temp 98 F 01/13/21 11:16 Pulse 72 01/13/21 11:16 Resp 18 01/13/21 11:16 BP 156/79 H 01/13/21 11:16 Pulse Ox 97 01/13/21 11:16 Body Mass Index 24.5 Results Labs and Meds Result diagrams: 01/13/21 05:49 01/13/21 05:49 Lab results: Laboratory Results - last 24 hr 01/12/21 01/13/21 01/13/21 20:10 05:49 05:49 WBC 8.0 RBC 4.24 L Hgb 13.9 L Hct 41.0 L MCV 96.7 MCH 32.8 MCHC 33.9 RDW 13.1 Plt Count 261 MPV 9.4 Immature Gran % (Auto) 0.4 Neut % (Auto) 58.2 Lymph % (Auto) 26.4 [place] % (Auto) 11.1 H Eos % (Auto) 3.0 Baso % (Auto) 0.9 Lymph # (Auto) 2.1 [place] # (Auto) 0.9 Eos # (Auto) 0.2 Baso # (Auto) 0.1 Abs Immat Gran (auto) 0.03 Absolute Neuts (auto) 4.7 Absolute Nucleated RBC 0.000 Nucleated RBC % (auto) 0.0 Sodium 139 Potassium 4.2 Chloride 108 Carbon Dioxide 22 Anion Gap 13 BUN 26 H Creatinine 1.57 H Estim Creat Clear Calc 42.9 Estimated GFR 44 POC Glucose 247 H Fasting Glucose 157 H Calcium 8.5 Triglycerides 137 Cholesterol 82 LDL Cholesterol, Calc 35 HDL Cholesterol 20 Urine Color Urine Appearance Urine pH Ur Specific [place] Urine Protein Urine Glucose (UA) Urine Ketones Urine Blood Urine Nitrite Ur Leukocyte Esterase 01/13/21 01/13/21 01/13/21 07:09 08:20 11:04 WBC RBC Hgb Hct MCV MCH MCHC RDW Plt Count MPV Immature Gran % (Auto) Neut % (Auto) Lymph % (Auto) [place] % (Auto) Eos % (Auto) Baso % (Auto) Lymph # (Auto) [place] # (Auto) Eos # (Auto) Baso # (Auto) Abs Immat Gran (auto) Absolute Neuts (auto) Absolute Nucleated RBC Nucleated RBC % (auto) Sodium Potassium Chloride Carbon Dioxide Anion Gap BUN Creatinine Estim Creat Clear Calc Estimated GFR POC Glucose 166 H 236 H Fasting Glucose Calcium Triglycerides Cholesterol LDL Cholesterol, Calc HDL Cholesterol Urine Color YELLOW Urine Appearance CLEAR Urine pH 7.0 Ur Specific [place] 1.015 Urine Protein NEG Urine Glucose (UA) 500 H Urine Ketones NEG Urine Blood NEG Urine Nitrite NEG Ur Leukocyte Esterase NEG Imaging Radiologist's impression: Impressions Head CT 01/13/21 11:43 IMPRESSION: Multiple foci of hypoattenuation involving the right cerebral area similar to previous study 01/12/2021 there are no new areas of acute infarct or bleed. Chronic small small vessel microangiopathy in both several hemispheres is stable. This critical result was discussed with Dr. Jose Hernandez at 1154 hours on 01/13/2021. It was ascertained that the content and urgency of the report was understood at the time of direct communication. Head/Neck CTA 01/13/21 11:55 IMPRESSION: 1. No new infarcts are identified since the previous studies. Findings as described above. 2. No high-grade stenosis or proximal major vessel occlusion and no significant change in the appearance of the CTA brain and neck, with essentially stable atheromatous plaque bilaterally. See above for details. This critical test result is communicated to: Dr. Neri at 12:36 PM on day of study. Progress Note: A&P Assessment and plan (1) Stroke: Problem details: Small acute right frontal and parietal cortical infarcts. Ulcerated plaque right internal carotid artery with 40% narrowing Status: Acute (2) Encounter for loop recorder check: Status: Acute Assessment and Plan: Pt has [employer] ILR in place. Bedside ILR interrogation completed today shows no alerts, including no atrial fibrillation or atrial tachycardia, battery status good, average V rates 60- 70s. Fall Risk Details Current Medications: Current Medications Generic Name Dose Route Start Last Admin Trade Name Freq PRN Reason Stop Dose Admin Aspirin 81 mg 01/13/21 09:00 01/13/21 08:06 Aspirin 81 Mg Tab.Chew PO 81 mg DAILY BILLY Administration Atorvastatin Calcium 80 mg 01/12/21 21:00 01/12/21 20:17 Atorvastatin Calcium 80 Mg Tablet PO 80 mg BEDTIME BILLY Administration Clopidogrel Bisulfate 75 mg 01/13/21 09:00 01/13/21 08:06 Clopidogrel Bisulfate 75 Mg Tablet PO 75 mg DAILY BILLY Administration Emtricitabine/Tenofovir Alafenamide 1 tab 01/13/21 09:00 01/13/21 08:06 Emtricitabine/Tenofov Alafenam Tablet PO 1 tab DAILY BILLY Administration Enoxaparin Sodium 30 mg 01/12/21 18:00 01/12/21 20:16 Enoxaparin Sodium 30 Mg/0.3 Ml Syringe SUBCUT 30 mg Q24H BILLY Administration Escitalopram Oxalate 10 mg 01/13/21 09:00 01/13/21 08:06 Escitalopram Oxalate 10 Mg Tablet PO 10 mg DAILY BILLY Administration Sodium Chloride 1,000 mls @ 75 mls/hr 01/13/21 13:00 Ns IVCONT .[id number] [facility] Insulin Human Lispro 0 unit 01/12/21 16:52 01/13/21 12:54 Insulin Lispro 100 Unit/Ml 3 Ml Vial SUBCUT 4 unit QIDACHS [facility] Administration Protocol Latanoprost 1 drop 01/12/21 21:00 01/12/21 20:17 Latanoprost 0.005 % Ophth Sandy 2.5 Ml Drops EYE-BOTH 1 drop BEDTIME BILLY Administration Metoprolol Tartrate 12.5 mg 01/12/21 21:00 01/13/21 08:06 Metoprolol Tartrate 12.5 Mg Halftab PO 12.5 mg BID BILLY Administration Protocol Pharmacy Consult 1 each 01/12/21 11:13 Consult Rx Perform Med Rec MISCELLANE ONCE PRN Consult order Sodium Chloride 3 ml 01/12/21 16:52 01/13/21 08:07 0.9 % Sodium Chloride Flush 3 Ml Syringe IVFLUSH 3 ml QSHIFT BILLY Administration Time Spent With Patient Time: Total time spent is greater than 50% in coordination of care (as documented) at patient's floor/unit and/or counseling patient: Time with patient: less than 15 minutes
[2021-01-13] MEDS: 0.9 % Sodium Chloride 1,000 ML 75 ML IVCONT (13:41)
--- NOTE | 2021-01-13 13:41 | P.PNIM_ITS ---
Subjective Subjective Date of Service: 01/13/21 Interval History: recurrent left UE weakness Cardiovascular Cardiovascular: Reports no additional cardiovascular complaints Respiratory Respiratory: Reports no additional respiratory complaints Physical Exam Vital Signs: Vital Signs: Last Vital Signs Temp 98 F 01/13/21 11:16 Pulse 72 01/13/21 11:16 Resp 18 01/13/21 11:16 BP 156/79 H 01/13/21 11:16 Pulse Ox 97 01/13/21 11:16 Body Mass Index 24.5 General: AO X 3, no acute distress Resp: CTA bilateral CVS: S1,S2,RRR GI: soft, non tender, non distended Neuro: LUE 4/5, slight left facial droop Psych: appropriate affect Objective Data Current Medications Generic Name Dose Route Start Last Admin Trade Name Freq PRN Reason Stop Dose Admin Aspirin 81 mg 01/13/21 09:00 01/13/21 08:06 Aspirin 81 Mg Tab.Chew PO 81 mg DAILY BILLY Administration Atorvastatin Calcium 80 mg 01/12/21 21:00 01/12/21 20:17 Atorvastatin Calcium 80 Mg Tablet PO 80 mg BEDTIME BILLY Administration Clopidogrel Bisulfate 75 mg 01/13/21 09:00 01/13/21 08:06 Clopidogrel Bisulfate 75 Mg Tablet PO 75 mg DAILY BILLY Administration Emtricitabine/Tenofovir Alafenamide 1 tab 01/13/21 09:00 01/13/21 08:06 Emtricitabine/Tenofov Alafenam Tablet PO 1 tab DAILY BILLY Administration Enoxaparin Sodium 30 mg 01/12/21 18:00 01/12/21 20:16 Enoxaparin Sodium 30 Mg/0.3 Ml Syringe SUBCUT 30 mg Q24H BILLY Administration Escitalopram Oxalate 10 mg 01/13/21 09:00 01/13/21 08:06 Escitalopram Oxalate 10 Mg Tablet PO 10 mg DAILY BILLY Administration Sodium Chloride 1,000 mls @ 75 mls/hr 01/13/21 13:00 01/13/21 13:41 Ns IVCONT 75 mls/hr .[id number] BILLY Administration Insulin Human Lispro 0 unit 01/12/21 16:52 01/13/21 12:54 Insulin Lispro 100 Unit/Ml 3 Ml Vial SUBCUT 4 unit QIDACHS BILLY Administration Protocol Latanoprost 1 drop 01/12/21 21:00 03/23/21 20:17 Latanoprost 0.005 % Ophth [place] 2.5 Ml Drops EYE-BOTH 1 drop BEDTIME BILLY Administration Metoprolol Tartrate 12.5 mg 01/12/21 21:00 01/13/21 08:06 Metoprolol Tartrate 12.5 Mg Halftab PO 12.5 mg BID BILLY Administration Protocol Pharmacy Consult 1 each 01/12/21 11:13 Consult Rx Perform Med Rec MISCELLANE ONCE PRN Consult order Sodium Chloride 3 ml 01/12/21 16:52 01/13/21 08:07 0.9 % Sodium Chloride Flush 3 Ml Syringe IVFLUSH 3 ml QSHIFT BILLY Administration Labs CBC & Chem 7: 01/13/21 05:49 01/13/21 05:49 Assessment and Plan (1) 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
[2021-01-13 15:32] VITALS: BP 190/74; PULSE 67; RESP 19; TEMP 37.1; O2SAT 98
[2021-01-13 16:22] LABS: Glucose, Whole Blood 135 mg/dL (60-115)
--- NOTE | 2021-01-13 17:03 | PM.NEUROPN ---
Subjective Subjective Date of Service: 01/13/21 Interval History: Worsening of left upper extremity weakness distally Physical Exam Vital Signs: Vital Signs: Last Vital Signs Temp 98.8 F 01/13/21 15:32 Pulse 67 01/13/21 15:32 Resp 19 01/13/21 15:32 BP 190/74 H 01/13/21 15:32 Pulse Ox 98 01/13/21 15:32 Body Mass Index 24.5 Const: General: cooperative, comfortable, no acute distress, well developed, alert and awake Nutritional Appearance: well nourished Orientation/consciousness: oriented to person, oriented to place and oriented to time Limitations: no limitations HENMT: Head: Yes normal to inspection, Yes normocephalic and Yes atraumatic Ears: hearing grossly normal bilaterally General nose exam: Normal external nose present Face and sinus: Yes normal facial exam Mouth: Normal oral and palatal mucosa present Eyes: General: appearance normal, both eyes and all related structures Visual Cherry: normal visual cherry by confrontation Alignment and Position: alignment normal Periorbital: periorbital findings normal Eyelids: Yes eyelids normal Conjunctivae: conjunctivae normal Sclerae: sclerae normal Corneas: corneas normal Pupils: Equal, round and reactive pupils present and Pupil accommodation reflex normal EOM: EOMs intact bilaterally Direct Ophthalmoscopy: normal light reflex Neck: Neck: Yes normal visual inspection, Yes full ROM and Yes no meningeal signs Thyroid: Thyroid normal Carotids: normal carotid upstroke and bounding pulses Chest: Chest palpation & inspection: normal inspection of the chest Resp: Effort & Inspection: normal respiratory effort Auscultation: clear to auscultation bilaterally Cardio: Rate: regular rate Rhythm: regular rhythm Heart sounds: S1 normal heart sound present and S2 normal heart sound present Peripheral pulses: Peripheral pulses 2+ throughout GI: Inspection: Yes normal to inspection Percussion: Yes normal to percussion Auscultation: normal bowel sounds Rectal Exam - Male: Yes deferred Back/Spine/Pelvis: Cervical Spine: normal cervical lordosis and cervical ROM normal Thoracic/Lumbar Spine: thoracic and lumbar spine normal to inspection Skin: General skin exam: no rashes or lesions noted Neuro: Other: 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 Wrist extensors 2/5. Proximal strength 5 minus/5. No facial droop and no left lower extremity weakness General: oriented to person, oriented to place, oriented to time, gait normal, tone normal, moves all extremities, Normal light touch and pain sensation, no meningeal signs, no focal motor deficits, CN's II-XI intact bilaterally, normal sensation to monofilament and deep tendon reflexes 2+ bilaterally Cranial nerves: Yes CN's II-XII intact bilaterally, Yes Equal, round and reactive pupils present, Yes Bilaterally intact EOM present, Yes Nystagmus not present, Yes Normal facial strength present, Yes Midline tongue present, Yes Normal gag reflex present, Yes Symmetric palate elevation present, Yes Normal hearing present and Yes Ability to bilaterally rotate head present Cognition (Neuro): normal cognition Speech: Other speech findings present (Neuro) Gait exam (Neuro): Normal gait present Motor exam (neuro): no tremor noted, no asterixis, Motor fasciculations not present, Normal motor muscle tone present throughout and Motor abnormalities not present Sensory Exam: Bilaterally intact graphesthesia Deep tendon reflexes (DTR's): Right triceps reflex intensity grade: 2+, Left triceps reflex intensity grade: 2+, Rt Biceps (C5, C6): 2+, Left biceps reflex intensity grade: 2+, Right brachioradialis reflex intensity grade: 2+, Left brachioradialis reflex intensity grade: 2+, Right patellar reflex intensity grade: 2+, Left patellar reflex intensity grade: 2+, Right ankle reflex intensity grade: 2+ and Left ankle reflex intensity grade: 2+ Plantar Reflex Responses: downgoing: right, left and bilateral Coordination: [id number] test normal, [id number] test normal, tandem gait normal and Romberg test negative Pupils: Normal pupillary reactivity/response: bilateral Extrem: General: Yes normal to inspection, Yes normal exam except as noted and Yes no pedal edema Psych: Appearance: grossly normal Mental Status: mental status grossly normal Speech and movement: Normal speech and movement present and Clear speech present Affect: normal affect Attitude: cooperative Thought process: Normal thought process present Objective Data Labs CBC & Chem 7: 01/13/21 05:49 01/13/21 05:49 Labs: Laboratory Results - last 24 hr 01/12/21 01/13/21 01/13/21 20:10 05:49 05:49 WBC 8.0 RBC 4.24 L Hgb 13.9 L Hct 41.0 L MCV 96.7 MCH 32.8 MCHC 33.9 RDW 13.1 Plt Count 261 MPV 9.4 Immature Gran % (Auto) 0.4 Neut % (Auto) 58.2 Lymph % (Auto) 26.4 [place] % (Auto) 11.1 H Eos % (Auto) 3.0 Baso % (Auto) 0.9 Lymph # (Auto) 2.1 [place] # (Auto) 0.9 Eos # (Auto) 0.2 Baso # (Auto) 0.1 Abs Immat Gran (auto) 0.03 Absolute Neuts (auto) 4.7 Absolute Nucleated RBC 0.000 Nucleated RBC % (auto) 0.0 Sodium 139 Potassium 4.2 Chloride 108 Carbon Dioxide 22 Anion Gap 13 BUN 26 H Creatinine 1.57 H Estim Creat Clear Calc 42.9 Estimated GFR 44 POC Glucose 247 H Fasting Glucose 157 H Calcium 8.5 Triglycerides 137 Cholesterol 82 LDL Cholesterol, Calc 35 HDL Cholesterol 20 Urine Color Urine Appearance Urine pH Ur Specific [place] Urine Protein Urine Glucose (UA) Urine Ketones Urine Blood Urine Nitrite Ur Leukocyte Esterase 01/13/21 01/13/21 01/13/21 07:09 08:20 11:04 WBC RBC Hgb Hct MCV MCH MCHC RDW Plt Count MPV Immature Gran % (Auto) Neut % (Auto) Lymph % (Auto) [place] % (Auto) Eos % (Auto) Baso % (Auto) Lymph # (Auto) [place] # (Auto) Eos # (Auto) Baso # (Auto) Abs Immat Gran (auto) Absolute Neuts (auto) Absolute Nucleated RBC Nucleated RBC % (auto) Sodium Potassium Chloride Carbon Dioxide Anion Gap BUN Creatinine Estim Creat Clear Calc Estimated GFR POC Glucose 166 H 236 H Fasting Glucose Calcium Triglycerides Cholesterol LDL Cholesterol, Calc HDL Cholesterol Urine Color YELLOW Urine Appearance CLEAR Urine pH 7.0 Ur Specific [place] 1.015 Urine Protein NEG Urine Glucose (UA) 500 H Urine Ketones NEG Urine Blood NEG Urine Nitrite NEG Ur Leukocyte Esterase NEG 01/13/21 16:13 WBC RBC Hgb Hct MCV MCH MCHC RDW Plt Count MPV Immature Gran % (Auto) Neut % (Auto) Lymph % (Auto) [place] % (Auto) Eos % (Auto) Baso % (Auto) Lymph # (Auto) [place] # (Auto) Eos # (Auto) Baso # (Auto) Abs Immat Gran (auto) Absolute Neuts (auto) Absolute Nucleated RBC Nucleated RBC % (auto) Sodium Potassium Chloride Carbon Dioxide Anion Gap BUN Creatinine Estim Creat Clear Calc Estimated GFR POC Glucose 135 H Fasting Glucose Calcium Triglycerides Cholesterol LDL Cholesterol, Calc HDL Cholesterol Urine Color Urine Appearance Urine pH Ur Specific [place] Urine Protein Urine Glucose (UA) Urine Ketones Urine Blood Urine Nitrite Ur Leukocyte Esterase Progress Note: A&P Fall Risk Details Current Medications: Current Medications Generic Name Dose Route Start Last Admin Trade Name Freq PRN Reason Stop Dose Admin Aspirin 81 mg 01/13/21 09:00 01/13/21 08:06 Aspirin 81 Mg Tab.Chew PO 81 mg DAILY BILLY Administration Atorvastatin Calcium 80 mg 01/12/21 21:00 01/12/21 20:17 Atorvastatin Calcium 80 Mg Tablet PO 80 mg BEDTIME BILLY Administration Clopidogrel Bisulfate 75 mg 01/13/21 09:00 01/13/21 08:06 Clopidogrel Bisulfate 75 Mg Tablet PO 75 mg DAILY BILLY Administration Emtricitabine/Tenofovir Alafenamide 1 tab 01/13/21 09:00 01/13/21 08:06 Emtricitabine/Tenofov Alafenam Tablet PO 1 tab DAILY BILLY Administration Enoxaparin Sodium 30 mg 01/12/21 18:00 01/12/21 20:16 Enoxaparin Sodium 30 Mg/0.3 Ml Syringe SUBCUT 30 mg Q24H BILLY Administration Escitalopram Oxalate 10 mg 01/13/21 09:00 01/13/21 08:06 Escitalopram Oxalate 10 Mg Tablet PO 10 mg DAILY BILLY Administration Sodium Chloride 1,000 mls @ 75 mls/hr 01/13/21 13:00 01/13/21 13:41 Ns IVCONT 75 mls/hr .[id number] BILLY Administration Insulin Human Lispro 0 unit 01/12/21 16:52 01/13/21 16:56 Insulin Lispro 100 Unit/Ml 3 Ml Vial SUBCUT Not Given QIDACHS [facility] Protocol Latanoprost 1 drop 01/12/21 21:00 01/12/21 20:17 Latanoprost 0.005 % Ophth [place] 2.5 Ml Drops EYE-BOTH 1 drop BEDTIME BILLY Administration Metoprolol Tartrate 12.5 mg 01/12/21 21:00 01/13/21 08:06 Metoprolol Tartrate 12.5 Mg Halftab PO 12.5 mg BID BILLY Administration Protocol Pharmacy Consult 1 each 01/12/21 11:13 Consult Rx Perform Med Rec MISCELLANE ONCE PRN Consult order Sodium Chloride 3 ml 01/12/21 16:52 01/13/21 16:55 0.9 % Sodium Chloride Flush 3 Ml Syringe IVFLUSH Not Given QSHIFT BILLY Time Spent With Patient Time: Total time spent is greater than 50% in coordination of care (as documented) at patient's floor/unit and/or counseling patient: Time with patient: 15 - 24 minutes
[2021-01-13 19:11] VITALS: BP 192/74; PULSE 73; RESP 19; TEMP 37.6; O2SAT 94
[2021-01-13] MEDS: Enoxaparin Sodium 30 MG/0.3 ML SYRINGE SUBCUT (19:12)
--- NOTE | 2021-01-13 19:43 | PC.NURSE ---
Dr Neri was notified regarding blood pressure readings 190/80 , per MD no BP meds needed at this time. DR Neri stated SBP 160-200 for this pt doesnt need addition med
[2021-01-13 20:07] LABS: Glucose, Whole Blood 168 mg/dL (60-115)
[2021-01-13] MEDS: Atorvastatin Calcium 80 MG TABLET PO (20:49)
[2021-01-13] MEDS: Latanoprost 0.005 % Ophth Sol 2.5 ML DROPS 1 DROP EYE-BOTH (20:50)
[2021-01-13 23:06] VITALS: BP 182/78; PULSE 78; RESP 18; TEMP 36.8; O2SAT 97
[2021-01-14] VITALS (7 sets, daily range): BP systolic 140–176; BP diastolic 63–90; PULSE 70–79; RESP 15–20; TEMP 36.6–37.1; O2SAT 95–97
[2021-01-14] MEDS: 0.9 % Sodium Chloride 1,000 ML 75 ML IVCONT ×2 (05:31→15:48)
[2021-01-14 06:11] LABS: MANUAL DIFF FLAG NO
[2021-01-14 06:37] LABS: Anion Gap 16 (12-20); Blood Urea Nitrogen 21 mg/dL (9-16); Calcium 8.6 mg/dL (8.4-10.2); Carbon Dioxide 19 mmol/L (22-29); Chloride 108 mmol/L (96-108); Creatinine Clr Calc Pharmacy 47.1; Estimated Glomerular Filt Rate 49; Glucose Fasting 160 mg/dL (60-99); Potassium 4.1 mmol/L (3.3-5.1); Sodium 139 mmol/L (135-145)
[2021-01-14 06:38] LABS: Basophils Percent Auto 0.4 % (0-2); Eosinophils Absolute Auto 0.2 X10*3/uL (0.0-0.4); Eosinophils Percent Auto 2.1 % (0-4); Hematocrit 39.8 % (42-52); Hemoglobin 13.9 g/dl (14.0-18.0); Imm Gran Abs Auto 0.02 X10*3/uL (0.00-0.03); Imm Gran Pct Auto 0.2 % (0.0-0.4); Lymphocytes Absolute Auto 1.9 X10*3/uL (1.2-4.9); Lymphocytes Percent Auto 20.8 % (20-40); Mean Corpuscular HGB Conc 34.9 g/dl (31.0-36.0); Mean Corpuscular Hemoglobin 33.3 pg (27.0-33.0); Mean Corpuscular Volume 95.2 fL (80-98); Mean Platelet Volume 9.3 fL (9.4-12.4); Monocytes Percent Auto 10.6 % (2-11); Neutrophils Absolute Auto 6.1 X10*3/uL (2.0-8.3); Neutrophils Percent Auto 65.9 % (45-73); Platelet Count 256 X10*3/uL (160-400); Red Blood Count 4.18 X10*6/uL (4.60-5.80); Red Cell Distribution Width 12.7 % (11.0-16.0); White Blood Count 9.3 X10*3/uL (4.8-10.8)
[2021-01-14 07:08] LABS: Glucose, Whole Blood 159 mg/dL (60-115)
[2021-01-14] MEDS: Insulin Lispro 100 UNIT/ML 3 ML VIAL SUBCUT ×3 (07:48→16:35)
[2021-01-14] MEDS: 0.9 % Sodium Chloride Flush 3 ML SYRINGE IVFLUSH (07:48)
[2021-01-14] MEDS: Emtricitabine/Tenofov Alafenam TABLET 1 TAB PO (09:47)
[2021-01-14] MEDS: Clopidogrel Bisulfate 75 MG TABLET PO (09:48)
[2021-01-14] MEDS: Escitalopram Oxalate 10 MG TABLET PO (09:48)
[2021-01-14] MEDS: Aspirin 81 MG TAB.CHEW PO (09:48)
[2021-01-14] MEDS: Metoprolol Tartrate 12.5 MG HALFTAB PO ×2 (09:48→20:17)
[2021-01-14 11:26] LABS: Glucose, Whole Blood 223 mg/dL (60-115)
--- NOTE | 2021-01-14 11:44 | P.PNIM_ITS ---
Subjective Subjective Date of Service: 01/14/21 Interval History: seen and examined this AM feels the same as yesterday no new neuro deficits ROS General - no fevers or chills Cardiovascular - no chest pain Respiratory - no shortness of breath or cough Abdominal- no abdominal pain, nausea, vomiting, diarrhea Neuro - LUE weakness, denies LLE weakness Physical Exam Vital Signs: Vital Signs: Last Vital Signs Temp 98.4 F 01/14/21 11:28 Pulse 75 01/14/21 11:28 Resp 15 01/14/21 11:28 BP 150/90 H 01/14/21 11:28 Pulse Ox 97 01/14/21 11:28 Body Mass Index 24.5 Const: Other: Constitutional - Awake and Alert, No apparent distress Eyes - PERRLA, EOMI Cardiovascular - S1S2, RRR, No edema Respiratory - Normal lung expansion, Normal respiratory effort, No respiratory distress, CTA bilaterally Gastrointestinal - NT / ND; +BS; No rebound or guarding - No CVA tenderness Extremities - no calf tenderness bilaterally, no swelling Musculoskeletal - Normal inspection, normal ROM Skin - Warm/Dry Neurological - Alert & oriented x; LUE tub mender strength 0 to 1/5; abduction at shoulder joint - 3/5; LLE appears essentially equal in strength; slight Psychological - Appropriate affect Objective Data Current Medications Generic Name Dose Route Start Last Admin Trade Name Gucciq PRN Reason Stop Dose Admin Aspirin 81 mg 01/13/21 09:00 01/14/21 09:48 Aspirin 81 Mg Tab.Chew PO 81 mg DAILY BILLY Administration Atorvastatin Calcium 80 mg 01/12/21 21:00 01/13/21 20:49 Atorvastatin Calcium 80 Mg Tablet PO 80 mg BEDTIME BILLY Administration Clopidogrel Bisulfate 75 mg 01/13/21 09:00 01/14/21 09:48 Clopidogrel Bisulfate 75 Mg Tablet PO 75 mg DAILY BILLY Administration Emtricitabine/Tenofovir Alafenamide 1 tab 01/13/21 09:00 01/14/21 09:47 Emtricitabine/Tenofov Alafenam Tablet PO 1 tab DAILY BILLY Administration Enoxaparin Sodium 30 mg 01/12/21 18:00 01/13/21 19:12 Enoxaparin Sodium 30 Mg/0.3 Ml Syringe SUBCUT 30 mg Q24H BILLY Administration Escitalopram Oxalate 10 mg 01/13/21 09:00 01/14/21 09:48 Escitalopram Oxalate 10 Mg Tablet PO 10 mg DAILY BILLY Administration Sodium Chloride 1,000 mls @ 75 mls/hr 01/13/21 13:00 01/14/21 05:31 Ns IVCONT 75 mls/hr .[id number] BILLY Administration Insulin Human Lispro 0 unit 01/12/21 16:52 01/14/21 07:48 Insulin Lispro 100 Unit/Ml 3 Ml Vial SUBCUT 2 unit QIDACHS BILLY Administration Protocol Latanoprost 1 drop 01/12/21 21:00 01/13/21 20:50 Latanoprost 0.005 % Ophth [place] 2.5 Ml Drops EYE-BOTH 1 drop BEDTIME BILLY Administration Metoprolol Tartrate 12.5 mg 01/12/21 21:00 01/14/21 09:48 Metoprolol Tartrate 12.5 Mg Halftab PO 12.5 mg BID BILLY Administration Protocol Pharmacy Consult 1 each 01/12/21 11:13 Consult Rx Perform Med Rec MISCELLANE ONCE PRN Consult order Sodium Chloride 3 ml 01/12/21 16:52 01/14/21 07:48 0.9 % Sodium Chloride Flush 3 Ml Syringe IVFLUSH 3 ml QSHIFT BILLY Administration Labs CBC & Chem 7: 01/14/21 05:40 01/14/21 05:40 Assessment and Plan (1) Stroke due to stenosis of right carotid artery: Status: Acute Assessment and Plan: This is a 70 yo M who presented with L sided weakness and was diagnosed with acute CVA. He was stable and plan was to d/c home but on 01/13/2021 he appeared to have another neurological event and underwetn further imaginging studies. 1. Acute CVA ? secondary event on 01/13; CTA/CT Head at that time remained unchnaged d/w neurology team recommends MRI today to evaluate if further extension of stroke to determine timing of vascular surgery referall to [facility] [place] original plan was for medical mgmt and outpatient referral to [facility] [place] Vascular surgery for stenting; will await repeat MRI and then re-discuss the plan with Vascular + Neurology continue asa/statin/plavix repeat PT and OT evals -- initially was to go home, but now may need rehab; he seems reluctantly agreeable 2. HTN hold antihypertensives for permissive HTN 3. DM Humalog 4. HBV [place] 5. Mood continue home meds Full Code DVT pptx, Lovenox dispo: To be determined. Needs inpatient level of care at this time given his new neurological findings
--- NOTE | 2021-01-14 14:27 | PC.NURSE ---
1400 Increased lethargy today. Appetite poor. States he is too tired 1130 c/o lips feeling tingling. Able to swallow without diff. Left arm remans very weak. Having diff moving fingers. Denies pain. Repeat MRI this afternoon. Seen by Neurologist
--- NOTE | 2021-01-14 14:36 | PM.NEUROPN ---
Subjective Subjective Date of Service: 01/14/21 Interval History: No change in the left upper extremity weakness since yesterday. No headache or dizziness. No increase in weakness. No speech or swallowing difficulty. Physical Exam Vital Signs: Vital Signs: Last Vital Signs Temp 98.4 F 01/14/21 11:28 Pulse 75 01/14/21 11:28 Resp 15 01/14/21 11:28 BP 150/90 H 01/14/21 11:28 Pulse Ox 97 01/14/21 11:28 Body Mass Index 24.5 Neuro: Other: Left upper extremity weakness distally 0/5 including finger movements and wrist extension. Biceps triceps and deltoid are 4+/5 left lower extremity strength is normal. No facial droop. No dysarthria Objective Data Labs CBC & Chem 7: 01/14/21 05:40 01/14/21 05:40 Labs: Laboratory Results - last 24 hr 01/13/21 01/13/21 01/14/21 16:13 19:58 05:40 WBC 9.3 RBC 4.18 L Hgb 13.9 L Hct 39.8 L MCV 95.2 MCH 33.3 H MCHC 34.9 RDW 12.7 Plt Count 256 MPV 9.3 L Immature Gran % (Auto) 0.2 Neut % (Auto) 65.9 Lymph % (Auto) 20.8 [place] % (Auto) 10.6 Eos % (Auto) 2.1 Baso % (Auto) 0.4 Lymph # (Auto) 1.9 [place] # (Auto) 1.0 Eos # (Auto) 0.2 Baso # (Auto) 0.0 Abs Immat Gran (auto) 0.02 Absolute Neuts (auto) 6.1 Absolute Nucleated RBC 0.000 Nucleated RBC % (auto) 0.0 Sodium Potassium Chloride Carbon Dioxide Anion Gap BUN Creatinine Estim Creat Clear Calc Estimated GFR POC Glucose 135 H 168 H Fasting Glucose Calcium 01/14/21 01/14/21 01/14/21 05:40 06:55 11:16 WBC RBC Hgb Hct MCV MCH MCHC RDW Plt Count MPV Immature Gran % (Auto) Neut % (Auto) Lymph % (Auto) [place] % (Auto) Eos % (Auto) Baso % (Auto) Lymph # (Auto) [place] # (Auto) Eos # (Auto) Baso # (Auto) Abs Immat Gran (auto) Absolute Neuts (auto) Absolute Nucleated RBC Nucleated RBC % (auto) Sodium 139 Potassium 4.1 Chloride 108 Carbon Dioxide 19 L Anion Gap 16 BUN 21 H Creatinine 1.43 H Estim Creat Clear Calc 47.1 Estimated GFR 49 POC Glucose 159 H 223 H Fasting Glucose 160 H Calcium 8.6 Progress Note: A&P Fall Risk Details Current Medications: Current Medications Generic Name Dose Route Start Last Admin Trade Name Freq PRN Reason Stop Dose Admin Aspirin 81 mg 01/13/21 09:00 01/14/21 09:48 Aspirin 81 Mg Tab.Chew PO 81 mg DAILY BILLY Administration Atorvastatin Calcium 80 mg 01/12/21 21:00 01/13/21 20:49 Atorvastatin Calcium 80 Mg Tablet PO 80 mg BEDTIME BILLY Administration Clopidogrel Bisulfate 75 mg 01/13/21 09:00 01/14/21 09:48 Clopidogrel Bisulfate 75 Mg Tablet PO 75 mg DAILY BILLY Administration Emtricitabine/Tenofovir Alafenamide 1 tab 01/13/21 09:00 01/14/21 09:47 Emtricitabine/Tenofov Alafenam Tablet PO 1 tab DAILY BILLY Administration Enoxaparin Sodium 30 mg 01/12/21 18:00 01/13/21 19:12 Enoxaparin Sodium 30 Mg/0.3 Ml Syringe SUBCUT 30 mg Q24H BILLY Administration Escitalopram Oxalate 10 mg 01/13/21 09:00 01/14/21 09:48 Escitalopram Oxalate 10 Mg Tablet PO 10 mg DAILY BILLY Administration Sodium Chloride 1,000 mls @ 75 mls/hr 01/13/21 13:00 01/14/21 05:31 Ns IVCONT 75 mls/hr .[id number] BILLY Administration Insulin Human Lispro 0 unit 01/12/21 16:52 01/14/21 11:45 Insulin Lispro 100 Unit/Ml 3 Ml Vial SUBCUT 4 unit QIDACHS BILLY Administration Protocol Latanoprost 1 drop 01/12/21 21:00 01/13/21 20:50 Latanoprost 0.005 % Ophth [place] 2.5 Ml Drops EYE-BOTH 1 drop BEDTIME BILLY Administration Metoprolol Tartrate 12.5 mg 01/12/21 21:00 01/14/21 09:48 Metoprolol Tartrate 12.5 Mg Halftab PO 12.5 mg BID BILLY Administration Protocol Pharmacy Consult 1 each 01/12/21 11:13 Consult Rx Perform Med Rec MISCELLANE ONCE PRN Consult order Sodium Chloride 3 ml 01/12/21 16:52 01/14/21 07:48 0.9 % Sodium Chloride Flush 3 Ml Syringe IVFLUSH 3 ml QSHIFT [facility] Administration Time Spent With Patient Time: There's been no change in his left hemiparesis. His MRI was reviewed. It shows multiple embolic infarcts in the right hemisphere particularly in the parieto-occipital region but also in the frontal suggestive of multiple embolizations from the ulcerated plaque in the right carotid. I would recommend transfer to [facility] for stenting of the carotid artery. If there is going to be a delay in the procedure then he should be started on Coumadin.Total time spent is greater than 50% in coordination of care (as documented) at patient's floor/unit and/or counseling patient: Time with patient: 15 - 24 minutes
[2021-01-14 16:04] LABS: Glucose, Whole Blood 209 mg/dL (60-115)
--- NOTE | 2021-01-14 16:29 | P.PNVS_ITS ---
Subjective Subjective Date of Service: 01/14/21 Interval history: 70-year-old gentleman with known history of right carotid stenosis. He presented to the hospital with acute stroke event. Yesterday during his hospitalization he had a repeat event. He is currently undergoing repeat workup inclusive of an MRI. He now presents for vascular follow-up. Of note he has minimal residual neurologic deficits. He notes no speech disturbances and has full function of his upper and lower extremities. Physical Exam Vital Signs: Vital Signs: Last Vital Signs Temp 98.2 F 01/14/21 15:16 Pulse 75 01/14/21 15:16 Resp 20 01/14/21 15:16 BP 169/74 H 01/14/21 15:16 Pulse Ox 96 01/14/21 15:16 Body Mass Index 24.5 Const: General: cooperative, healthy appearing and no acute distress Orientation/consciousness: oriented to person, oriented to place and oriented to time HENMT: Head: Yes normal to inspection Neck: Carotids: no bruits Chest: Chest palpation & inspection: normal inspection of the chest Resp: Effort & Inspection: normal respiratory effort and able to speak in complete sentences Auscultation: clear to auscultation bilaterally Cardio: Rate: regular rate Heart sounds: S1 normal heart sound present and S2 normal heart sound present GI: Inspection: Yes normal to inspection Skin: General skin exam: no rashes or lesions noted Wounds: no wounds Neuro: General: oriented to person, oriented to place, oriented to time and CN's II-XI intact bilaterally Extrem: General: Yes normal to inspection, Yes full ROM and Yes no clubbing, cyanosis or edema Psych: Appearance: grossly normal and well kempt Speech and movement: Normal speech and movement present Affect: normal affect Progress Note: A&P Assessment and plan (1) Stroke due to stenosis of right carotid artery: Status: Acute Assessment and Plan: In short patient has repeat right carotid stenosis. He had right carotid endarterectomy performed nearly 6-[address] Gasca. Repeat CT a shows 50% stenosis on the right side but plaque morphology appears to be more thrombotic in nature than atherosclerotic. He would be an ideal candidate for carotid stenting. This was related to the patient. He was referred to Dr. Hermilo Ventura at [facility] in the past. He will be re-referred. I have reached out to him and he will try to get him in for evaluation. He is stable from my perspective. Thank you for allowing us to assist in his care. If there are any questions or concerns please do not hesitate to contact us. The patient had an opportunity to ask questions regarding the treatment plan. All questions were answered. Imaging studies, laboratory studies and physical exam results were discussed and reviewed in detail. No major barriers to understanding were identified. The patient expressed understanding and agreement with the above treatment plan. The patient is aware they should contact our office by phone for worsening of the current condition or the appearance of new symptoms. Thank you for allowing me to participate in the vascular care of this patient. If you have any questions or concerns regarding the treatment for the above condition please do not hesitate to contact me. The office telephone contact is [phone]. This note is constructed using voice recognition software. While every effort has been made to ensure accuracy, lap hand tool errors may have been included. Thank you for allowing me to participate in the care of your patient. Yours sincerely, Marvin Phoenix MD, FACS, R.P.V.I. Fall Risk Details Current Medications: Current Medications Generic Name Dose Route Start Last Admin Trade Name Freq PRN Reason Stop Dose Admin Aspirin 81 mg 01/13/21 09:00 01/14/21 09:48 Aspirin 81 Mg Tab.Chew PO 81 mg DAILY BILLY Administration Atorvastatin Calcium 80 mg 01/12/21 21:00 01/13/21 20:49 Atorvastatin Calcium 80 Mg Tablet PO 80 mg BEDTIME BILLY Administration Clopidogrel Bisulfate 75 mg 01/13/21 09:00 01/14/21 09:48 Clopidogrel Bisulfate 75 Mg Tablet PO 75 mg DAILY BILLY Administration Emtricitabine/Tenofovir Alafenamide 1 tab 01/13/21 09:00 01/14/21 09:47 Emtricitabine/Tenofov Alafenam Tablet PO 1 tab DAILY BILLY Administration Enoxaparin Sodium 30 mg 01/12/21 18:00 01/13/21 19:12 Enoxaparin Sodium 30 Mg/0.3 Ml Syringe SUBCUT 30 mg Q24H BILLY Administration Escitalopram Oxalate 10 mg 01/13/21 09:00 01/14/21 09:48 Escitalopram Oxalate 10 Mg Tablet PO 10 mg DAILY BILLY Administration Sodium Chloride 1,000 mls @ 75 mls/hr 01/13/21 13:00 01/14/21 15:48 Ns IVCONT 75 mls/hr .[id number] BILLY Administration Insulin Human Lispro 0 unit 01/12/21 16:52 01/14/21 11:45 Insulin Lispro 100 Unit/Ml 3 Ml Vial SUBCUT 4 unit QIDACHS BILLY Administration Protocol Latanoprost 1 drop 01/12/21 21:00 01/13/21 20:50 Latanoprost 0.005 % Ophth Sandy 2.5 Ml Drops EYE-BOTH 1 drop BEDTIME BILLY Administration Metoprolol Tartrate 12.5 mg 01/12/21 21:00 01/14/21 09:48 Metoprolol Tartrate 12.5 Mg Halftab PO 12.5 mg BID BILLY Administration Protocol Pharmacy Consult 1 each 01/12/21 11:13 Consult Rx Perform Med Rec MISCELLANE ONCE PRN Consult order Sodium Chloride 3 ml 01/12/21 16:52 01/14/21 07:48 0.9 % Sodium Chloride Flush 3 Ml Syringe IVFLUSH 3 ml QSHIFT BILLY Administration Time Spent With Patient Time: Total time spent is greater than 50% in coordination of care (as documented) at patient's floor/unit and/or counseling patient: Time with patient: 15 - 24 minutes
[2021-01-14] MEDS: Enoxaparin Sodium 30 MG/0.3 ML SYRINGE SUBCUT (17:57)
--- NOTE | 2021-01-14 18:38 | PM.DS ---
DS: Providers Provider Date of Service: 01/14/21 Date of admission: 01/12/21 11:36 Primary care physician: Ryder Lou MD Consults: 01/12/21 11:36 Consult to Neurology Routine Consulting Provider: Jozef Drummond Reason for consultation: cva 01/12/21 16:52 Consult to Vascular Surgery Routine Consulting Provider: Marvin Phoenix Reason for consultation: cva, right carotid lesions DS: Diagnosis Discharge Diagnosis (1) Stroke due to stenosis of right carotid artery: Status: Acute DS: Medications Discharge Medications Home Medications: Home Medications Medication Instructions Recorded Confirmed aspirin 81 mg tablet,delayed 81 mg PO DAILY 09/10/20 01/12/21 release cholecalciferol (vitamin D3) 50 50 mcg PO DAILY 09/10/20 01/12/21 mcg (2,000 unit) capsule emtricitabine 200 mg-tenofovir 1 tab PO DAILY 09/10/20 01/12/21 alafenamide fumarate 25 mg tablet latanoprost 0.005 % eye drops 1 drp OPHTHALMIC (EYE) BEDTIME 09/10/20 01/12/21 metoprolol tartrate 25 mg tablet 25 mg PO BID 09/10/20 01/12/21 nitroglycerin 0.4 mg sublingual 0.4 mg SUBLINGUAL Q5M PRN 09/10/20 01/12/21 tablet budesonide-formoterol HFA 80 2 puff PO BID 12/31/20 01/12/21 mcg-4.5 mcg/actuation aerosol inhaler escitalopram oxalate 10 mg tablet 10 mg PO DAILY 12/31/20 01/12/21 insulin aspart U-100 100 unit/mL 0 unit SUBCUT QIDACHS ml 12/31/20 01/12/21 (3 mL) subcutaneous pen insulin degludec 100 unit/mL (3 50 unit SUBCUT DAILY ml 12/31/20 01/12/21 mL) subcutaneous pen atorvastatin 80 mg PO BEDTIME 01/12/21 01/12/21 dorzolamide-timolol 1 drp OPHTHALMIC (EYE) BID 01/12/21 01/12/21 lisinopril 40 mg PO BID 01/12/21 01/12/21 melatonin 5 mg PO BEDTIME 01/12/21 01/12/21 Previous Rx's Medication Instructions Recorded blood sugar diagnostic #100 ea 09/23/20 clopidogrel 75 mg tablet 75 mg PO DAILY #90 tab 11/26/20 ezetimibe 10 mg tablet 10 mg PO DAILY 90 Days #90 tab 11/26/20 DS: Summary Hospital Course Hospital Course: HPI 70M with past medical history of CVA with no residual deficits, right carotid stenosis status post endarterectomy. Patient presented with chief complaint of left-sided weakness. Patient awoke with the symptoms does not know how long they were present before. Patient noticed he was having difficulty dressing himself due to left upper extremity weakness. He states this lasted about 30 minutes to an hour. It has since resolved. He came to the ED. in ED CTA showed questionable age indeterminate right-sided infarcts and 40% restenoses of the right common carotid with atheromatous plaque and a thick irregular ulcerated plaque at the right carotid bifurcation causing 50% tandem stenosis. Patient was seen by neurology recommended admission. Hospital Course Patient presented with left upper extremity weakness and was diagnosed with acute stroke. His original CTA showed about a 50% stenosis of his right carotid. He was treated in the usual fashion with dual antiplatelets, statin, permissive hypertension. He underwent a PT and OT evaluation with the plan for home physical therapy as his deficits had largely resolved. Both Neurology and vascular surgery saw the patient with a plan for outpatient referral to [facility] for carotid stenting. 24 hours after admission, patient had worsening of his left upper extremity weakness as well as facial droop. He was re-evaluated with a CTA which showed no changes from the day before. A repeat MRI however did real multiple new infarcts. Case was re-discussed with Neurology who recommended transfer to [facility] for more urgent vascular intervention. A call was placed to [facility] transfer line and the case was discussed with vascular surgeon Dr. Ventura who accepted the patient for transfer. Dr. Ventura requested that we start the patient on IV heparin drip. Radiology Department at [facility] has been informed to upload images to [facility] as well as send a CD of the images if possible. Patient was informed of transfer to [facility] and is in agreement. Time Spent with Patient Time attestation: Total time spent providing and/or coordinating discharge services: Discharge coordination time: Greater than 30 minutes Quality: Stroke Pt Provided Written Stroke Discharge Instructions: Patient given written information Physical Exam Vital Signs: Vital Signs: Last Vital Signs Temp 98.2 F 01/14/21 15:16 Pulse 75 01/14/21 15:16 Resp 20 01/14/21 15:16 BP 169/74 H 01/14/21 15:16 Pulse Ox 96 01/14/21 15:16 Body Mass Index 24.5 Const: Other: Constitutional - Awake and Alert, No apparent distress Eyes - PERRLA, EOMI Cardiovascular - S1S2, RRR, No edema Respiratory - Normal lung expansion, Normal respiratory effort, No respiratory distress, CTA bilaterally Gastrointestinal - NT / ND; +BS; No rebound or guarding - No CVA tenderness Extremities - no calf tenderness bilaterally, no swelling Musculoskeletal - Normal inspection, normal ROM Skin - Warm/Dry Neurological - Alert & oriented x; LUE manager party strength 0 to 1/5; abduction at shoulder joint - 3/5; LLE appears essentially equal in strength; CN 2-12 in tact; Psychological - Appropriate affect DS: Data Data Completed and Pending Labs on day of discharge: Laboratory Results - last 24 hr 01/13/21 01/14/21 01/14/21 19:58 05:40 05:40 WBC 9.3 RBC 4.18 L Hgb 13.9 L Hct 39.8 L MCV 95.2 MCH 33.3 H MCHC 34.9 RDW 12.7 Plt Count 256 MPV 9.3 L Immature Gran % (Auto) 0.2 Neut % (Auto) 65.9 Lymph % (Auto) 20.8 [place] % (Auto) 10.6 Eos % (Auto) 2.1 Baso % (Auto) 0.4 Lymph # (Auto) 1.9 [place] # (Auto) 1.0 Eos # (Auto) 0.2 Baso # (Auto) 0.0 Abs Immat Gran (auto) 0.02 Absolute Neuts (auto) 6.1 Absolute Nucleated RBC 0.000 Nucleated RBC % (auto) 0.0 Sodium 139 Potassium 4.1 Chloride 108 Carbon Dioxide 19 L Anion Gap 16 BUN 21 H Creatinine 1.43 H Estim Creat Clear Calc 47.1 Estimated GFR 49 POC Glucose 168 H Fasting Glucose 160 H Calcium 8.6 01/14/21 01/14/21 01/14/21 06:55 11:16 15:54 WBC RBC Hgb Hct MCV MCH MCHC RDW Plt Count MPV Immature Gran % (Auto) Neut % (Auto) Lymph % (Auto) [place] % (Auto) Eos % (Auto) Baso % (Auto) Lymph # (Auto) [place] # (Auto) Eos # (Auto) Baso # (Auto) Abs Immat Gran (auto) Absolute Neuts (auto) Absolute Nucleated RBC Nucleated RBC % (auto) Sodium Potassium Chloride Carbon Dioxide Anion Gap BUN Creatinine Estim Creat Clear Calc Estimated GFR POC Glucose 159 H 223 H 209 H Fasting Glucose Calcium Discharge Plan Discharge Patient Disposition: [facility] Referrals: Ryder Lou MD [Primary Care Provider] - Discharge Medications: New heparin(porcine) in 0.45% NaCl 25,000 unit/250 mL Parenteral Solution 25,000 unit continuous IV infusion .Q0M Qty: 1 RF: 0 Continued (DME) Blood Glucose Test Strip See Rx Instructions .ROUTE .MEDSUPPLY Qty: 100 RF: 11 ezetimibe [Zetia] 10 mg tablet 10 mg PO DAILY 90 Days Qty: 90 RF: 1 clopidogrel [Plavix] 75 mg tablet 75 mg PO DAILY Qty: 90 RF: 1 melatonin 5 mg Tablet 5 mg PO BEDTIME RF: 0 atorvastatin 80 mg tablet 80 mg PO BEDTIME RF: 0 dorzolamide-timolol 22.3-6.8 mg/mL Drops 1 drp OPHTHALMIC (EYE) BID RF: 0 escitalopram oxalate 10 mg tablet 10 mg PO DAILY RF: 0 budesonide-formoterol 80-4.5 mcg/actuation HFA aerosol inhaler 2 puff PO BID RF: 0 latanoprost [Xalatan] 0.005 % drops 1 drp ophthalmic (eye) BEDTIME RF: 0 cholecalciferol (vitamin D3) 50 mcg (2,000 unit) capsule 50 mcg PO DAILY RF: 0 aspirin 81 mg tablet,delayed release (DR/EC) 81 mg PO DAILY RF: 0 nitroglycerin 0.4 mg tablet, sublingual 0.4 mg sublingual Q5M PRN (Reason: Chest Pain) RF: 0 Descovy 200-25 mg tablet 1 tab PO DAILY RF: 0 insulin aspart U-100 [Novolog Flexpen U-100 Insulin] 100 unit/mL (3 mL) insulin pen 0 unit subcut QIDACHS RF: 0 Tresiba FlexTouch U-100 100 unit/mL (3 mL) insulin pen 50 unit subcut DAILY RF: 0 Held lisinopril 40 mg Tablet 40 mg PO BID RF: 0 Hold Instructions: Resume on 01/21/21. restart per [facility] doctors metoprolol tartrate 25 mg tablet 25 mg PO BID RF: 0 Hold Instructions: Resume on 01/21/21. per [facility] Discharge Orders: Discharge Order (Routine); Ordered 01/14/21 Ordered By: Haider Vera Diet: advance to usual diet Activity on Discharge: As tolerated Stand Alone Forms: Patient Portal Discharge page Care Plan Goals: To get treatment for carotid stenosis Health Concerns: Multiple Strokes Plan of Treatment: Transfer [place] [facility] for further treatment
[2021-01-14 19:49] LABS: Prothrombin Time 12.2 SEC (10.8-13.0)
[2021-01-14 19:52] LABS: PTT Heparin Drip 39.3 SEC (53-77.9)
[2021-01-14 20:11] LABS: Glucose, Whole Blood 137 mg/dL (60-115)
[2021-01-14] MEDS: Atorvastatin Calcium 80 MG TABLET PO (20:18)
[2021-01-14] MEDS: Heparin Sodium,Porcine/1/2NS 25,000 UNIT/250 ML IV.SOLN 8.8 UNIT IVCONT (20:21)
== END 2021-01-14 20:55 | disposition short-term general hospital (02) | DRG 65 ==
LOC: HO.ED 11:34 → HO.EDOVER 12:46 → HO.IMC 16:45
PROVIDERS: Admitting Provider Internal Medicine; Emergency Provider Emergency Medicine Emergency Medical Services; PCP Internal Medicine; Visit Provider Family Medicine
DX: I63.231 Cerebral infarction due to unspecified occlusion or stenosis of right carotid arteries (principal); B19.10 Unspecified viral hepatitis B without hepatic coma; G83.24 Monoplegia of upper limb affecting left nondominant side; I25.10 Atherosclerotic heart disease of native coronary artery without angina pectoris; I10 Essential (primary) hypertension; E78.5 Hyperlipidemia, unspecified; R29.700 NIHSS score 0; E10.9 Type 1 diabetes mellitus without complications; Z20.822 Contact with and (suspected) exposure to COVID-19; Z95.818 Presence of other cardiac implants and grafts; Z86.73 Personal history of transient ischemic attack (TIA), and cerebral infarction without residual deficits; Z79.02 Long term (current) use of antithrombotics/antiplatelets; Z79.82 Long term (current) use of aspirin; Z79.899 Other long term (current) drug therapy
CPT/HCPCS: 36415; 70450; 70496; 70498; 70551; 80048; 80061; 80076; 81003; 82550; 82947; 84484; 85025; 85610; 85730; 87635; 93005; 96360; 97162; 97166; 99285; 99291; J1650; Q9967

== ENCOUNTER 2021-02-12 13:31 | Emergency (ER) | payer MEDICARE, BC, SELFPAY ==
--- NOTE | ~2021-02-12 | CT_ITS ---
EXAMINATION: CT angio head neck CLINICAL INFORMATION: Dizziness and weakness. History of stroke. COMPARISON: Brain MRI 01/14/2021. CT angiogram of the head and neck 01/13/2021. TECHNIQUE: [employer] images were obtained. A CT angiogram of the head and neck was performed in the arterial phase after the intravenous administration of 70 mL Omnipaque 350. Pre and delayed postcontrast images of the head were also obtained. MIP reconstructions were generated in multiple orientations at the acquisition workstation. Multiple three-dimensional surface rendered images and maximum intensity projection images were generated on a dedicated 3-D lab workstation. Arterial stenoses are measured in accordance with NASCET criteria or similar method if applicable. This CT examination was performed using dose optimization techniques as appropriate, including one or more of the following: Automated exposure control, iterative reconstruction, and adjustment of technique factors (mA and/or kVp) according to patient size (this includes techniques or standardized protocols for targeted exams where dose is matched to indication/reason for exam). Total exam dose-length product 2466 mGy-cm FINDINGS: Head: There are evolving subacute to chronic infarcts within the right cerebral hemisphere. Numerous chronic small vessel ischemic changes are also visualized within the periventricular white matter. Elizabeth-white matter differentiation is otherwise preserved and there is no evidence of acute territorial infarct. There is no acute hemorrhage or abnormal extra-axial collection. Again there is an expansile intrasellar mass that appears to infiltrate the left cavernous sinus most likely representing a pituitary adenoma. No intracranial mass effect or midline shift. Lateral and third ventricles are normal. No hydrocephalus. The calvarium and skull base are intact. There is a left mastoid effusion. No active paranasal sinus disease. CT angiogram neck: There is irregular atheromatous plaque at the aortic arch apex and stable 40% stenosis of the right common carotid artery at its origin. The origins of major aortic branches are otherwise patent. There are recent changes of a right carotid endarterectomy. No restenosis of the right intracranial internal carotid artery. Partially calcified atheromatous plaque at the left carotid bifurcation is unchanged. No stenosis of the left extracranial internal carotid artery. There is near occlusive stenosis at the origin of the left vertebral artery. The right vertebral artery is widely patent. CT angiogram head: There is atheromatous calcification involving the cavernous segments of both internal carotid arteries. No intracranial internal carotid artery stenosis. The intradural vertebral artery segments and basilar artery are patent. Anterior, middle, and posterior cerebral artery complexes are normal. Other: Soft tissues of the neck including the thyroid gland are unremarkable. Visualized lung apices are clear. No acute osseous finding. 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 There is advanced multilevel degenerative spondylosis of the cervical spine with at least moderate canal stenosis at C5-C6 and mild canal stenosis at C4-C5 and C6-C7. CT/CT angio head neck IMPRESSION: There are recent postoperative changes of a right carotid endarterectomy. Otherwise stable vascular findings including irregular atheromatous plaque at the origin of the right common carotid artery resulting in approximately 40% narrowing of the vessel and near occlusive stenosis at the origin of the left vertebral artery. No high-grade stenosis or proximal occlusion is visualized within the intracranial vessels. There are evolving subacute chronic infarcts within the right cerebral hemisphere. No new infarct or hemorrhage. The appearance of an expansile intrasellar mass that apparently infiltrates the left cavernous sinus most likely representing a pituitary adenoma has remained unchanged.
[2021-02-12 14:05] VITALS: BP 230/104; PULSE 94; RESP 18; TEMP 36.6; O2SAT 95; BMI 21.9
--- NOTE | 2021-02-12 14:14 | ECG_ITS ---
Test Reason : WEAKNESS Blood Pressure : / mmHG Vent. Rate : 073 BPM Atrial Rate : 073 BPM P-R Int : 140 ms QRS Dur : 160 ms QT Int : 484 ms P-R-T Axes : 076 018 029 degrees QTc Int : 533 ms Normal sinus rhythm Right bundle branch block Abnormal ECG When compared with ECG of 12-JAN-2021 09:00, T wave inversion now evident in Anterior leads QT has lengthened Referred By: Polly Martinez Electronically Signed By:BETSY LOWE MD
[2021-02-12 14:40] LABS: Basophils Percent Auto 0.3 % (0-2); Eosinophils Absolute Auto 0.3 X10*3/uL (0.0-0.4); Eosinophils Percent Auto 2.2 % (0-4); Hematocrit 39.1 % (42-52); Hemoglobin 13.9 g/dl (14.0-18.0); Imm Gran Abs Auto 0.04 X10*3/uL (0.00-0.03); Imm Gran Pct Auto 0.3 % (0.0-0.4); Lymphocytes Absolute Auto 2.2 X10*3/uL (1.2-4.9); Lymphocytes Percent Auto 15.1 % (20-40); MANUAL DIFF FLAG SCAN; Mean Corpuscular HGB Conc 35.5 g/dl (31.0-36.0); Mean Corpuscular Hemoglobin 33.3 pg (27.0-33.0); Mean Corpuscular Volume 93.8 fL (80-98); Mean Platelet Volume 8.9 fL (9.4-12.4); Monocytes Absolute Auto 1.8 X10*3/uL (0.1-1.2); Monocytes Percent Auto 12.5 % (2-11); Neutrophils Absolute Auto 10.2 X10*3/uL (2.0-8.3); Neutrophils Percent Auto 69.6 % (45-73); Platelet Count 265 X10*3/uL (160-400); Red Blood Count 4.17 X10*6/uL (4.60-5.80); SCAN SMEAR FLAG 1; White Blood Count 14.7 X10*3/uL (4.8-10.8)
[2021-02-12] MEDS: Labetalol HCL 100 MG/20 ML VIAL 10 MG IVPUSH (14:40)
[2021-02-12 15:02] LABS: SLIDE REVIEW VERIFIED
--- NOTE | 2021-02-12 15:10 | ED.GENADULT ---
HPI - General Adult General Chief complaint: General Medical Stated complaint: hbp, dizziness Time Seen by Provider: 02/12/21 14:14 Source: patient and family Mode of arrival: wheelchair Limitations: no limitations History of Present Illness HPI narrative: 70 y/o male with history of recent admission here for acute ischemic stroke w/ residual left arm weakness (out of tPA window) on 01/12 s/p right carotid endarterectomy at [facility] who presents to the ED with his sister from Physical Therapy across the street with acute onset of feeling weak all over, dizziness and slow speech. He was brought to the ED via wheelchair. In triage his BP was noted to be 230/104. He reports feeling tired and is having trouble speaking. He is oriented x3 but having some delay verbalizing which is not his baseline. His sister, who he lives with, states he has been doing well at home since his stroke. He has residual LUE weakness and cannot use his left arm but he is able to walk without assistance. No residual speech deficits per sister. MD complaint: weakness, lethargy Onset (ago): hour(s) (2) Radiation: non-radiation Severity: moderate Quality: constant Relieving factors: none Exacerbating factors: none Associated symptoms: confusion Treatments prior to arrival: none Related Data Home Medications Medication Instructions Recorded Confirmed aspirin 81 mg tablet,delayed 81 mg PO DAILY 09/10/20 02/12/21 release cholecalciferol (vitamin D3) 50 50 mcg PO DAILY 09/10/20 02/12/21 mcg (2,000 unit) capsule emtricitabine 200 mg-tenofovir 1 tab PO DAILY 09/10/20 02/12/21 alafenamide fumarate 25 mg tablet latanoprost 0.005 % eye drops 1 drp OPHTHALMIC (EYE) BEDTIME 09/10/20 02/12/21 nitroglycerin 0.4 mg sublingual 0.4 mg SUBLINGUAL Q5M PRN 09/10/20 02/12/21 tablet budesonide-formoterol HFA 80 2 puff PO BID 12/31/20 02/12/21 mcg-4.5 mcg/actuation aerosol inhaler escitalopram oxalate 10 mg tablet 10 mg PO DAILY 12/31/20 02/12/21 insulin aspart U-100 100 unit/mL 0 unit SUBCUT QIDACHS ml 12/31/20 02/12/21 (3 mL) subcutaneous pen insulin degludec 100 unit/mL (3 50 unit SUBCUT DAILY ml 12/31/20 02/12/21 mL) subcutaneous pen dorzolamide-timolol 1 drp OPHTHALMIC (EYE) BID 01/12/21 02/12/21 baclofen 0.5 tab PO TID 02/12/21 02/12/21 hydralazine 1 tab PO Q6H 02/12/21 02/12/21 lisinopril 1 tab PO BID 02/12/21 02/12/21 ticagrelor [Brilinta] 90 mg PO BID 02/12/21 02/12/21 Previous Rx's Medication Instructions Recorded blood sugar diagnostic #100 ea 09/23/20 ezetimibe 10 mg tablet 10 mg PO DAILY 90 Days #90 tab 11/26/20 atorvastatin 80 mg tablet 80 mg PO BEDTIME 30 Days #30 tab 02/12/21 Allergies Allergy/AdvReac Type Severity Reaction Status Date / Time No Known Allergies Allergy Verified 01/12/21 14:23 Review of Systems Review of Systems: Constitutional: No Fever, + Chills ENT/Mouth: No sore throat, No Rhinorrhea, No Swallowing Difficulty Eyes: No Eye Pain, No Swelling, No Redness Cardiovascular: No Chest Pain, No SOB, No Orthopnea, No Edema Respiratory: No Cough, No Sputum, No Wheezing, No dyspnea Gastrointestinal: No Nausea, No Vomiting, No Diarrhea, No abdominal Pain Genitourinary: No Dysuria, No Urinary Frequency, No Hematuria Musculoskeletal: No joint pain, No Myalgias Skin: No Skin Lesions, No rash Neuro: + Weakness, No Numbness, + Dizziness, No Headache Psych: No Anxiety/Panic, No Depression Heme/Lymph: No Bruising, No Lymphadenopathy Endocrine: No Polyuria, + Polydipsia PMFSH Past Medical History Medical History CAD (coronary artery disease) CVA (cerebral vascular accident) HLD (hyperlipidemia) HTN (hypertension) 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 Social History Social History Household Members: None Housing: House Alcohol intake: never Smoking Status: Current every day smoker Packs Per Day: 1 Cigarettes Per Day: 20.0 Years Smoked: 30 Advance Directives: Yes Advance Directives Information Provided: Yes Advance Directives on File: No service: No Current occupational status: retired Physical Exam Vital Signs: Vital Signs: Last Vital Signs Temp 98 F 02/12/21 14:05 Pulse 78 02/12/21 17:14 Resp 20 02/12/21 17:14 BP 142/75 H 02/12/21 17:14 Pulse Ox 98 02/12/21 17:14 Body Mass Index 21.9 Appearance: Slightly lethargic male laying in bed, appears older than stated age. Oriented X3, slow to respond. Eyes: Pupils equal, round and reactive to light. Right upper eyelid dropping ENT: Pharynx normal. Symmetrical smile. Neck: Normal inspection. Neck supple. CVS: Normal heart rate and rhythm. Pulses normal. Respiratory: No respiratory distress. Breath sounds normal. Abdomen: Soft and nontender. +BS x4 Skin: Skin warm and dry. Normal skin color. Normal skin turgor. No rashes. Extremities: No lower extremity edema. Left arm flaccid. Neuro: Right upper eyelid is drooping. Symmetrical smile. Speech is slow, some word finding difficulty, LE equal and symmetrical strength against gravity. Normal right hand grasp unable to grasp on the left. Normal strength in right arm against gravity. CN II-XII intact. NIH Stroke Scale Internal: Initial- Upon Arrival Level of Consciousness: Alert Level of Consciousness Questions: Answers both questions correctly Level of Consciousness Commands: Performs both tasks correctly Best Gaze: Normal Visual: No visual loss Facial Palsy: Minor paralyis Motor Arm (Right): No drift Motor Arm (Left): No movement Motor Leg (Right): No drift Motor Leg (Left): No drift Limb Ataxia: Present in one limb Sensory: Normal Best Language: No aphasia Dysarthia: Mild to moderate dysarthria Extinction and Inattention: No abnormality Score: 7 Course Course Course Narrative: 70 y/o male with recent ischemic stroke with residual left arm weakness presenting wtih 2 hours of generalized weakness, dizziness, fatigue - found to have word finding difficulty and right eyelid droop - concern for recurrent stroke. At this time given his recent stroke he is not a candidate for thrombolytics. Will proceed with metabolic workup and STAT CT head & CTA head/neck to assess for possible LVO amenable to intervention. Reevaluation(s) Reevaluation #1: Glucose noted to be 25 which can explain his symptoms aside from right eyelid droop - treated with D50. Sister reports sugars at home have been >100. She ?gave him too much insulin by dialing the pen too much? Last ate breakfast at 10am. CT scans still pending. Reevaluation #2: Mental status significantly improved with D50 and oral intake. Eating and drinking and feeling much better. Right eyelid droop is completely resolved. Troponin 19 without any reports of chest pain. He is on ASA, BB and plavix at home. RBBB is old on EKG with some t-wave inversions. Will repeat troponin, doubt ACS. Will also repeat K+ after repletion. Hypokalemia consistent with possible insulin overdose. Reevaluation #3: Troponin increased but not by 50% delta. He continues to be chest pain free. He is eating and drinking with stable sugars. He would like to go home. He is stable for discharge at this time and will follow up with his doctor on Monday. Sister at the bedside who agrees with plan. Medical Decision Making Lab Data Result diagrams: 02/12/21 14:33 02/12/21 19:19 Labs: Lab Results 02/12/21 02/12/21 02/12/21 Range/Units 14:33 14:33 14:33 WBC 14.7 H (4.8-10.8) X10*3/uL RBC 4.17 L (4.60-5.80) X10*6/uL Hgb 13.9 L (14.0-18.0) g/dl Hct 39.1 L (42-52) % MCV 93.8 (80-98) fL MCH 33.3 H (27.0-33.0) pg MCHC 35.5 (31.0-36.0) g/dl RDW 13.0 (11.0-16.0) % Plt Count 265 (160-400) X10*3/uL MPV 8.9 L (9.4-12.4) fL Immature Gran % (Auto) 0.3 (0.0-0.4) % Neut % (Auto) 69.6 (45-73) % Lymph % (Auto) 15.1 L (20-40) % [place] % (Auto) 12.5 H (2-11) % Eos % (Auto) 2.2 (0-4) % Baso % (Auto) 0.3 (0-2) % Lymph # (Auto) 2.2 (1.2-4.9) X10*3/uL [place] # (Auto) 1.8 H (0.1-1.2) X10*3/uL Eos # (Auto) 0.3 (0.0-0.4) X10*3/uL Baso # (Auto) 0.0 (0.0-0.2) X10*3/uL Abs Immat Gran (auto) 0.04 H (0.00-0.03) X10*3/uL Absolute Neuts (auto) 10.2 H (2.0-8.3) X10*3/uL Absolute Nucleated RBC 0.000 (0.0-0.012) X10*3/uL Nucleated RBC % (auto) 0.0 (0.0-0.2) /100WBC Smear Tech's Comments VERIFIED PT (10.8-13.0) SEC INR (0.9-1.1) APTT (24.1-38.0) SEC Hold Blue Top Cancelled Sodium 140 (135-145) mmol/L Potassium 2.7 L D (3.3-5.1) mmol/L Chloride 104 (96-108) mmol/L Carbon Dioxide 25 (22-29) mmol/L Anion Gap 14 (12-20) BUN 25 H (9-16) mg/dL Creatinine 1.29 (0.5-1.4) mg/dL Estim Creat Clear Calc 49.9 Estimated GFR 55 POC Glucose (60-115) mg/dL Random Glucose 25 L* (60-115) mg/dL Calcium 9.6 D (8.4-10.2) mg/dL Magnesium 2.0 (1.6-2.6) mg/dL Total Bilirubin 0.5 (0.0-1.0) mg/dL Direct Bilirubin 0.2 (0.0-0.5) mg/dL AST 23 (5-37) U/L ALT 20 (0-40) U/L Alkaline Phosphatase 100 D (39-117) U/L Troponin I High Sens (<3.5-35.0) ng/L Total Protein 7.2 (6.5-8.0) g/dL Albumin 4.4 (3.5-5.0) g/dL Urine Color Urine Appearance Urine pH (5.0-8.0) Ur Specific [place] (1.005-1.025) Urine Protein (NEG-TRACE) MG/DL Urine Glucose (UA) (NEG) MG/DL Urine Ketones (NEG) MG/DL Urine Blood (NEG) Urine Nitrite (NEG) Ur Leukocyte Esterase (NEG) Urine RBC (0) /HPF Urine WBC (0-4) /HPF Ur Squamous Epith Cells /LPF Urine Bacteria /LPF 02/12/21 02/12/21 02/12/21 Range/Units 14:33 15:53 16:46 WBC (4.8-10.8) X10*3/uL RBC (4.60-5.80) X10*6/uL Hgb (14.0-18.0) g/dl Hct (42-52) % MCV (80-98) fL MCH (27.0-33.0) pg MCHC (31.0-36.0) g/dl RDW (11.0-16.0) % Plt Count (160-400) X10*3/uL MPV (9.4-12.4) fL Immature Gran % (Auto) (0.0-0.4) % Neut % (Auto) (45-73) % Lymph % (Auto) (20-40) % [place] % (Auto) (2-11) % Eos % (Auto) (0-4) % Baso % (Auto) (0-2) % Lymph # (Auto) (1.2-4.9) X10*3/uL [place] # (Auto) (0.1-1.2) X10*3/uL Eos # (Auto) (0.0-0.4) X10*3/uL Baso # (Auto) (0.0-0.2) X10*3/uL Abs Immat Gran (auto) (0.00-0.03) X10*3/uL Absolute Neuts (auto) (2.0-8.3) X10*3/uL Absolute Nucleated RBC (0.0-0.012) X10*3/uL Nucleated RBC % (auto) (0.0-0.2) /100WBC Smear Tech's Comments PT (10.8-13.0) SEC INR (0.9-1.1) APTT (24.1-38.0) SEC Hold Blue Top Sodium (135-145) mmol/L Potassium (3.3-5.1) mmol/L Chloride (96-108) mmol/L Carbon Dioxide (22-29) mmol/L Anion Gap (12-20) BUN (9-16) mg/dL Creatinine (0.5-1.4) mg/dL Estim Creat Clear Calc Estimated GFR POC Glucose 212 H (60-115) mg/dL Random Glucose (60-115) mg/dL Calcium (8.4-10.2) mg/dL Magnesium (1.6-2.6) mg/dL Total Bilirubin (0.0-1.0) mg/dL Direct Bilirubin (0.0-0.5) mg/dL AST (5-37) U/L ALT (0-40) U/L Alkaline Phosphatase (39-117) U/L Troponin I High Sens 19.2 D (<3.5-35.0) ng/L Total Protein (6.5-8.0) g/dL Albumin (3.5-5.0) g/dL Urine Color YELLOW Urine Appearance CLEAR Urine pH 6.5 (5.0-8.0) Ur Specific [place] 1.010 (1.005-1.025) Urine Protein TRACE (NEG-TRACE) MG/DL Urine Glucose (UA) 500 H (NEG) MG/DL Urine Ketones NEG (NEG) MG/DL Urine Blood TRACE (NEG) Urine Nitrite NEG (NEG) Ur Leukocyte Esterase NEG (NEG) Urine RBC 0-2 (0) /HPF Urine WBC 0 (0-4) /HPF Ur Squamous Epith Cells NONE /LPF Urine Bacteria NONE /LPF 02/12/21 02/12/21 02/12/21 Range/Units 16:53 16:55 19:19 WBC (4.8-10.8) X10*3/uL RBC (4.60-5.80) X10*6/uL Hgb (14.0-18.0) g/dl Hct (42-52) % MCV (80-98) fL MCH (27.0-33.0) pg MCHC (31.0-36.0) g/dl RDW (11.0-16.0) % Plt Count (160-400) X10*3/uL MPV (9.4-12.4) fL Immature Gran % (Auto) (0.0-0.4) % Neut % (Auto) (45-73) % Lymph % (Auto) (20-40) % [place] % (Auto) (2-11) % Eos % (Auto) (0-4) % Baso % (Auto) (0-2) % Lymph # (Auto) (1.2-4.9) X10*3/uL [place] # (Auto) (0.1-1.2) X10*3/uL Eos # (Auto) (0.0-0.4) X10*3/uL Baso # (Auto) (0.0-0.2) X10*3/uL Abs Immat Gran (auto) (0.00-0.03) X10*3/uL Absolute Neuts (auto) (2.0-8.3) X10*3/uL Absolute Nucleated RBC (0.0-0.012) X10*3/uL Nucleated RBC % (auto) (0.0-0.2) /100WBC Smear Tech's Comments PT 11.8 (10.8-13.0) SEC INR 1.0 (0.9-1.1) APTT 36.5 (24.1-38.0) SEC Hold Blue Top Sodium (135-145) mmol/L Potassium 4.0 D (3.3-5.1) mmol/L Chloride (96-108) mmol/L Carbon Dioxide (22-29) mmol/L Anion Gap (12-20) BUN (9-16) mg/dL Creatinine (0.5-1.4) mg/dL Estim Creat Clear Calc Estimated GFR POC Glucose 180 H (60-115) mg/dL Random Glucose (60-115) mg/dL Calcium (8.4-10.2) mg/dL Magnesium (1.6-2.6) mg/dL Total Bilirubin (0.0-1.0) mg/dL Direct Bilirubin (0.0-0.5) mg/dL AST (5-37) U/L ALT (0-40) U/L Alkaline Phosphatase (39-117) U/L Troponin I High Sens (<3.5-35.0) ng/L Total Protein (6.5-8.0) g/dL Albumin (3.5-5.0) g/dL Urine Color Urine Appearance Urine pH (5.0-8.0) Ur Specific [place] (1.005-1.025) Urine Protein (NEG-TRACE) MG/DL Urine Glucose (UA) (NEG) MG/DL Urine Ketones (NEG) MG/DL Urine Blood (NEG) Urine Nitrite (NEG) Ur Leukocyte Esterase (NEG) Urine RBC (0) /HPF Urine WBC (0-4) /HPF Ur Squamous Epith Cells /LPF Urine Bacteria /LPF 02/12/21 Range/Units 19:19 WBC (4.8-10.8) X10*3/uL RBC (4.60-5.80) X10*6/uL Hgb (14.0-18.0) g/dl Hct (42-52) % MCV (80-98) fL MCH (27.0-33.0) pg MCHC (31.0-36.0) g/dl RDW (11.0-16.0) % Plt Count (160-400) X10*3/uL MPV (9.4-12.4) fL Immature Gran % (Auto) (0.0-0.4) % Neut % (Auto) (45-73) % Lymph % (Auto) (20-40) % [place] % (Auto) (2-11) % Eos % (Auto) (0-4) % Baso % (Auto) (0-2) % Lymph # (Auto) (1.2-4.9) X10*3/uL [place] # (Auto) (0.1-1.2) X10*3/uL Eos # (Auto) (0.0-0.4) X10*3/uL Baso # (Auto) (0.0-0.2) X10*3/uL Abs Immat Gran (auto) (0.00-0.03) X10*3/uL Absolute Neuts (auto) (2.0-8.3) X10*3/uL Absolute Nucleated RBC (0.0-0.012) X10*3/uL Nucleated RBC % (auto) (0.0-0.2) /100WBC Smear Tech's Comments PT (10.8-13.0) SEC INR (0.9-1.1) APTT (24.1-38.0) SEC Hold Blue Top Sodium (135-145) mmol/L Potassium (3.3-5.1) mmol/L Chloride (96-108) mmol/L Carbon Dioxide (22-29) mmol/L Anion Gap (12-20) BUN (9-16) mg/dL Creatinine (0.5-1.4) mg/dL Estim Creat Clear Calc Estimated GFR POC Glucose (60-115) mg/dL Random Glucose (60-115) mg/dL Calcium (8.4-10.2) mg/dL Magnesium (1.6-2.6) mg/dL Total Bilirubin (0.0-1.0) mg/dL Direct Bilirubin (0.0-0.5) mg/dL AST (5-37) U/L ALT (0-40) U/L Alkaline Phosphatase (39-117) U/L Troponin I High Sens 27.9 (<3.5-35.0) ng/L Total Protein (6.5-8.0) g/dL Albumin (3.5-5.0) g/dL Urine Color Urine Appearance Urine pH (5.0-8.0) Ur Specific [place] (1.005-1.025) Urine Protein (NEG-TRACE) MG/DL Urine Glucose (UA) (NEG) MG/DL Urine Ketones (NEG) MG/DL Urine Blood (NEG) Urine Nitrite (NEG) Ur Leukocyte Esterase (NEG) Urine RBC (0) /HPF Urine WBC (0-4) /HPF Ur Squamous Epith Cells /LPF Urine Bacteria /LPF Critical Care Time Critical Care Time Critical Care Time: Yes Total Critical Care Time: 45 Attestation: I attest to critical care time spent with this patient with severe hypoglycemia, AMS and hypokalemia. Required frequent re-evaluation, review of records, imaging personally reviewed. Discharge Plan Discharge Clinical Impression: Hypoglycemia Patient Disposition: Home, Self-Care Instructions: Hypokalemia (ED), Hypoglycemia in a Person with Diabetes (ED), What to Do if Your Blood Sugar is Low (ED) Additional Instructions: Your symptoms today were from low blood sugar - critically LOW at 25. You may have taken too much insulin. Since eating and being give IV sugar your glucose levels have been stable. Your CT scans of your brain did not show any evidence of new strokes. Recommend close monitoring of your glucose at home - before meals and at bedtime. Eat a snack before bed tonight. If Brilinta is too extensive, recommend switching back to Plavix. Continuing taking aspirin. Recommend following up with your doctor next week. If you have recurrent symptoms of weakness or any other concerning symptom come back to the ER for further evaluation. Prescriptions: No Action (DME) Blood Glucose Test Strip See Rx Instructions .ROUTE .MEDSUPPLY Qty: 100 RF: 11 ezetimibe [Zetia] 10 mg tablet 10 mg PO DAILY 90 Days Qty: 90 RF: 1 atorvastatin 80 mg tablet 80 mg PO BEDTIME 30 Days Qty: 30 RF: 11 dorzolamide-timolol 22.3-6.8 mg/mL Drops 1 drp OPHTHALMIC (EYE) BID RF: 0 lisinopril 20 mg tablet 1 tab PO BID RF: 0 hydralazine 25 mg tablet 1 tab PO Q6H RF: 0 baclofen 10 mg tablet 0.5 tab PO TID RF: 0 Brilinta 90 mg Tablet 90 mg PO BID RF: 0 escitalopram oxalate 10 mg tablet 10 mg PO DAILY RF: 0 budesonide-formoterol 80-4.5 mcg/actuation HFA aerosol inhaler 2 puff PO BID RF: 0 latanoprost [Xalatan] 0.005 % drops 1 drp ophthalmic (eye) BEDTIME RF: 0 cholecalciferol (vitamin D3) 50 mcg (2,000 unit) capsule 50 mcg PO DAILY RF: 0 aspirin 81 mg tablet,delayed release (DR/EC) 81 mg PO DAILY RF: 0 nitroglycerin 0.4 mg tablet, sublingual 0.4 mg sublingual Q5M PRN (Reason: Chest Pain) RF: 0 [place] 200-25 mg tablet 1 tab PO DAILY RF: 0 insulin aspart U-100 [Novolog Flexpen U-100 Insulin] 100 unit/mL (3 mL) insulin pen 0 unit subcut QIDACHS RF: 0 Tresiba FlexTouch U-100 100 unit/mL (3 mL) insulin pen 50 unit subcut DAILY RF: 0
[2021-02-12 15:21] LABS: Troponin-I High Sensitivity 19.2 ng/L (<3.5-35.0)
[2021-02-12 15:35] LABS: Alanine Aminotransferase 20 U/L (0-40); Albumin Level 4.4 g/dL (3.5-5.0); Alkaline Phosphatase 100 U/L (39-117); Aspartate Amino Transferase 23 U/L (5-37); Bilirubin Direct 0.2 mg/dL (0.0-0.5); Bilirubin Total 0.5 mg/dL (0.0-1.0); Blood Urea Nitrogen 25 mg/dL (9-16); Calcium 9.6 mg/dL (8.4-10.2); Creatinine Clr Calc Pharmacy 49.9; Estimated Glomerular Filt Rate 55; Total Protein 7.2 g/dL (6.5-8.0)
[2021-02-12] MEDS: iohexoL 350 MG/ML 100 ML INFUS..BTL IV (15:35)
[2021-02-12 15:40] LABS: Glucose Random 25 mg/dL (60-115)
[2021-02-12 15:51] LABS: Anion Gap 14 (12-20); Carbon Dioxide 25 mmol/L (22-29); Chloride 104 mmol/L (96-108); Potassium 2.7 mmol/L (3.3-5.1); Sodium 140 mmol/L (135-145)
[2021-02-12 15:58] LABS: Glucose, Whole Blood 212 mg/dL (60-115)
[2021-02-12 17:00] LABS: Glucose, Whole Blood 180 mg/dL (60-115)
[2021-02-12 17:04] LABS: Glucose Urine UA 500 MG/DL (NEG); Leukocyte Esterase Urine NEG (NEG); Nitrite Urine NEG (NEG); PH 6.5 (5.0-8.0); Urine Blood TRACE (NEG); Urine Ketones NEG (NEG); Urine Protein TRACE MG/DL (NEG-TRACE)
[2021-02-12 17:14] VITALS: BP 142/75; PULSE 78; RESP 20; O2SAT 98
[2021-02-12 17:14] LABS: Appearance Urine CLEAR; Color Urine YELLOW
[2021-02-12] MEDS: Potassium Chloride/H20 10 MEQ/100 ML PIGGYBACK 100 MEQ IV (17:15)
[2021-02-12] MEDS: Potassium Chloride Packet 20 MEQ PACKET 40 MEQ PO (17:16)
[2021-02-12 17:19] LABS: Prothrombin Time 11.8 SEC (10.8-13.0)
[2021-02-12 17:22] LABS: Partial Thromboplastin Time 36.5 SEC (24.1-38.0)
[2021-02-12 17:47] LABS: RBC Urine 0-2 /HPF (0); WBC Urine 0 /HPF (0-4)
--- NOTE | 2021-02-12 19:27 | PC.NURSE ---
[facility] AT THIS TIME. PT DENIES ANY COMPLAINTS. PT ALERT, RESPIRATIONS EASY, N/L. SKIN W/D. WILL CONTINUE TO MONITOR PT.
[2021-02-12 19:50] LABS: Troponin-I High Sensitivity 27.9 ng/L (<3.5-35.0)
[2021-02-12] MEDS: Clopidogrel Bisulfate 75 MG TABLET PO (20:18)
== END 2021-02-12 20:52 | disposition home or self-care (01) ==
PROVIDERS: Physician Assistant; Emergency Provider Emergency Medicine; PCP Internal Medicine
DX: R42 Dizziness and giddiness (principal); E10.649 Type 1 diabetes mellitus with hypoglycemia without coma; Z79.899 Other long term (current) drug therapy; Z79.82 Long term (current) use of aspirin; F17.210 Nicotine dependence, cigarettes, uncomplicated; Z71.6 Tobacco abuse counseling
CPT/HCPCS: 36415; 70496; 70498; 80048; 80076; 81001; 81003; 82947; 83735; 84132; 84484; 85025; 85610; 85730; 93005; 96365; 96375; 99284; Q9967

== ENCOUNTER 2021-02-19 13:34 | Emergency (ER) | payer MEDICARE, BC, SELFPAY ==
--- NOTE | ~2021-02-19 | CT_ITS ---
EXAMINATION: CT HEAD WITHOUT CONTRAST CLINICAL INFORMATION: Right foot weakness COMPARISON: Previous head CTA 02/12/2021, MRI brain 01/14/[address] 01/13/2021 TECHNIQUE: Contiguous axial imaging was performed from the skull base to vertex without intravenous administration of contrast. This CT examination was performed using dose optimization techniques as appropriate, variously including the following: *Automated exposure control *Adjustment of mA and/or kV according to patient size (this includes techniques or standardized protocols for targeted exams where dose is matched to indication/reason for exam; i.e. extremities or head) *Use of iterative reconstruction technique DLP: 701 mGy-cm FINDINGS: There is no evidence of an extra-axial collection. There is no evidence of intra-axial or extra-axial hemorrhage. The ventricles and extra-axial CSF spaces are appropriate. There are evolving subacute to chronic infarcts seen in the right frontal and parietal lobes. There are also older right frontal periventricular white matter and basal ganglia infarcts. These appear unchanged from most recent exam 02/12/2021. No new infarct is seen. 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 Review at bone windows is otherwise unremarkable. There are mild inflammatory changes seen in the sphenoid and right ethmoid sinuses. The visualized paranasal sinuses, mastoid air cells and middle ears are otherwise clear. CT/CT head/brain wo con IMPRESSION: Multiple right sided infarcts of varying ages similar to most recent head CT 02/12/2021. No new infarct or hemorrhage is seen.
[2021-02-19 13:47] VITALS: BP 174/78; BP 180/90; PULSE 74; PULSE 77; RESP 16; TEMP 36.4; O2SAT 97; BMI 22.4
--- NOTE | 2021-02-19 14:15 | ED_ITS ---
HPI - Neuro Symptoms/Deficit General Chief Complaint: Neuro Symptoms/Deficit Stated Complaint: right foot numbness Time Seen by Provider: 02/19/21 13:54 Source: patient, EMS and old records reviewed Mode of arrival: EMS Limitations: no limitations History of Present Illness HPI Narrative: 70 yo male s/p stroke on 01/12 with LUE weakness since then, also had R endarterectomy at that time recommended ASA and Brilinta has not been able to take brilinta due to cost Onset (ago): hour(s) (2) Timing confirmed by: family member Location: right leg History of same: No Severity: mild Quality: weak and tingling Relieving factors: none Exacerbating factors: none Context: gradual onset On Anticoagulants: No Associated symptoms: denies other symptoms Treatments Prior to Arrival: Aspirin Related Data Home Medications Medication Instructions Recorded Confirmed aspirin 81 mg tablet,delayed 81 mg PO DAILY 09/10/20 02/19/21 release cholecalciferol (vitamin D3) 50 50 mcg PO DAILY 09/10/20 02/19/21 mcg (2,000 unit) capsule emtricitabine 200 mg-tenofovir 1 tab PO DAILY 09/10/20 02/19/21 alafenamide fumarate 25 mg tablet latanoprost 0.005 % eye drops 1 drp OPHTHALMIC (EYE) BEDTIME 09/10/20 02/19/21 nitroglycerin 0.4 mg sublingual 0.4 mg SUBLINGUAL Q5M PRN 09/10/20 02/19/21 tablet escitalopram oxalate 10 mg tablet 10 mg PO DAILY 12/31/20 02/19/21 insulin aspart U-100 100 unit/mL 0 unit SUBCUT QIDACHS ml 12/31/20 02/19/21 (3 mL) subcutaneous pen dorzolamide-timolol 1 drp OPHTHALMIC (EYE) BID 01/12/21 02/19/21 baclofen 10 tab PO TID 02/12/21 02/19/21 hydralazine 1 tab PO Q6H 02/12/21 02/19/21 Tresiba FlexTouch U-100 45 unit SUBCUT DAILY 02/19/21 02/19/21 acetaminophen 650 mg PO Q4H PRN 02/19/21 02/19/21 albuterol sulfate 2 puff INHALATION Q4H PRN 02/19/21 02/19/21 carvedilol 1 tab PO BID 02/19/21 02/19/21 clopidogrel 1 tab PO DAILY 02/19/21 02/19/21 melatonin 5 mg PO BEDTIME 02/19/21 02/19/21 metoprolol tartrate 1 tab PO BID 02/19/21 02/19/21 nifedipine 2 tab PO DAILY 02/19/21 02/19/21 Previous Rx's Medication Instructions Recorded blood sugar diagnostic #100 ea 09/23/20 ezetimibe 10 mg tablet 10 mg PO DAILY 90 Days #90 tab 11/26/20 atorvastatin 80 mg tablet 80 mg PO BEDTIME 30 Days #30 tab 02/12/21 Allergies Allergy/AdvReac Type Severity Reaction Status Date / Time No Known Allergies Allergy Verified 01/12/21 14:23 Review of Systems Review of Systems: Constitutional : No Fever, No Chills, No Fatigue ENT/Mouth : No sore throat, No Rhinorrhea Eyes: No Eye Pain, No Swelling, No Redness Cardiovascular : No Chest Pain, No SOB, No Dyspnea on Exertion Respiratory : No Cough, No Sputum Gastrointestinal : No Nausea, No Vomiting, No Diarrhea, No abdominal Pain Genitourinary : No Dysuria, No Urinary Frequency, No Hematuria, Musculoskeletal : No joint pain, No Myalgias, No Joint Swelling Skin : No Skin Lesions, No rash Neuro : pos Weakness, pos Numbness, No Dizziness, no Headache Psych : No Anxiety/Panic, No Depression Heme/Lymph: No Bruising, No Bleeding,No Lymphadenopathy Endocrine : No Polyuria, No Polydipsia All other systems reviewed and are negative [facility] Past Medical History Attestation statement: The following information was validated with the patient. Medical History CAD (coronary artery disease) CVA (cerebral vascular accident) Encounter for loop recorder check HLD (hyperlipidemia) HTN (hypertension) 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 Social History Social History Household Members: None Housing: House Alcohol intake: never Smoking Status: Never smoker Packs Per Day: 1 Cigarettes Per Day: 20.0 Years Smoked: 30 Use of substances other than those prescribed or required for medical reasons: No Advance Directives: Yes Advance Directives Information Provided: Yes Advance Directives on File: No service: No Current occupational status: retired Physical Exam Vital Signs: Vital Signs: Last Vital Signs Temp 97.6 F 02/19/21 13:47 Pulse 78 02/19/21 15:21 Resp 16 02/19/21 15:21 BP 199/90 H 02/19/21 15:21 Pulse Ox 99 02/19/21 15:21 Body Mass Index 22.4 Appearance: Alert. Oriented X3. No acute distress. Eyes: Pupils equal, round and reactive to light. ENT: Pharynx normal. Neck: Normal inspection. Neck supple. CVS: Normal heart rate and rhythm. Pulses normal. Respiratory: No respiratory distress. Breath sounds normal. Abdomen: Soft and nontender. Skin: Skin warm and dry. Normal skin color. Normal skin turgor. Extremities: No lower extremity edema. No calf ttp Neuro: Oriented X 3. LUE some effort against gravity, R foot unable to dorsiflex decreased to SILT dorsum of foot No sensory deficit. Course Course Course Narrative: patient given IV insulin, BP fluctuates OF NOTE HE HAS BEEN TAKING HIS PLAVIX AT HOME DID NOT MISS DOSES will admit for further workup took both aspirin and plavix MDM - Neuro Symptoms/Deficit MDM Narrative Medical decision making narrative: 70 yo male with hx of stroke resulting in L arm weakness on 01/12 s/p carotid endarterectomy HTN comes in with R foot weakness/tingling unable to dorsiflex foot - he is not compliant with is brilinta at this time due to cost, he is not a tPa candidate given stroke in last 3 months will obtain labs, EKG, CT head, discuss likely change to plavix Lab Data Result diagrams: 02/19/21 14:34 02/19/21 14:34 Labs: Lab Results 02/19/21 02/19/21 02/19/21 Range/Units 14:33 14:34 14:34 WBC 8.1 (4.8-10.8) X10*3/uL RBC 3.90 L (4.60-5.80) X10*6/uL Hgb 13.0 L (14.0-18.0) g/dl Hct 37.6 L (42-52) % MCV 96.4 (80-98) fL MCH 33.3 H (27.0-33.0) pg MCHC 34.6 (31.0-36.0) g/dl RDW 13.1 (11.0-16.0) % Plt Count 238 (160-400) X10*3/uL MPV 8.9 L (9.4-12.4) fL Immature Gran % (Auto) 0.2 (0.0-0.4) % Neut % (Auto) 68.8 (45-73) % Lymph % (Auto) 13.9 L (20-40) % [place] % (Auto) 12.7 H (2-11) % Eos % (Auto) 4.0 (0-4) % Baso % (Auto) 0.4 (0-2) % Lymph # (Auto) 1.1 L (1.2-4.9) X10*3/uL [place] # (Auto) 1.0 (0.1-1.2) X10*3/uL Eos # (Auto) 0.3 (0.0-0.4) X10*3/uL Baso # (Auto) 0.0 (0.0-0.2) X10*3/uL Abs Immat Gran (auto) 0.02 (0.00-0.03) X10*3/uL Absolute Neuts (auto) 5.6 (2.0-8.3) X10*3/uL Absolute Nucleated RBC 0.000 (0.0-0.012) X10*3/uL Nucleated RBC % (auto) 0.0 (0.0-0.2) /100WBC PT 12.2 (10.8-13.0) SEC INR 1.0 (0.9-1.1) APTT 33.8 (24.1-38.0) SEC Sodium (135-145) mmol/L Potassium (3.3-5.1) mmol/L Chloride (96-108) mmol/L Carbon Dioxide (22-29) mmol/L Anion Gap (12-20) BUN (9-16) mg/dL Creatinine (0.5-1.4) mg/dL Estim Creat Clear Calc Estimated GFR POC Glucose 377 H* (60-115) mg/dL Random Glucose (60-115) mg/dL Calcium (8.4-10.2) mg/dL Magnesium (1.6-2.6) mg/dL Total Bilirubin (0.0-1.0) mg/dL Direct Bilirubin (0.0-0.5) mg/dL AST (5-37) U/L ALT (0-40) U/L Alkaline Phosphatase (39-117) U/L Troponin I High Sens (<3.5-35.0) ng/L Total Protein (6.5-8.0) g/dL Albumin (3.5-5.0) g/dL COVID-19 (JOSR) (Negative) COVID-19 Clin Com 02/19/21 02/19/21 02/19/21 Range/Units 14:34 14:34 14:34 WBC (4.8-10.8) X10*3/uL RBC (4.60-5.80) X10*6/uL Hgb (14.0-18.0) g/dl Hct (42-52) % MCV (80-98) fL MCH (27.0-33.0) pg MCHC (31.0-36.0) g/dl RDW (11.0-16.0) % Plt Count (160-400) X10*3/uL MPV (9.4-12.4) fL Immature Gran % (Auto) (0.0-0.4) % Neut % (Auto) (45-73) % Lymph % (Auto) (20-40) % [place] % (Auto) (2-11) % Eos % (Auto) (0-4) % Baso % (Auto) (0-2) % Lymph # (Auto) (1.2-4.9) X10*3/uL [place] # (Auto) (0.1-1.2) X10*3/uL Eos # (Auto) (0.0-0.4) X10*3/uL Baso # (Auto) (0.0-0.2) X10*3/uL Abs Immat Gran (auto) (0.00-0.03) X10*3/uL Absolute Neuts (auto) (2.0-8.3) X10*3/uL Absolute Nucleated RBC (0.0-0.012) X10*3/uL Nucleated RBC % (auto) (0.0-0.2) /100WBC PT (10.8-13.0) SEC INR (0.9-1.1) APTT (24.1-38.0) SEC Sodium 137 (135-145) mmol/L Potassium 4.4 (3.3-5.1) mmol/L Chloride 102 (96-108) mmol/L Carbon Dioxide 24 (22-29) mmol/L Anion Gap 15 (12-20) BUN 27 H (9-16) mg/dL Creatinine 1.62 H (0.5-1.4) mg/dL Estim Creat Clear Calc 40.7 Estimated GFR 42 POC Glucose (60-115) mg/dL Random Glucose 410 H* (60-115) mg/dL Calcium 8.5 D (8.4-10.2) mg/dL Magnesium 2.3 (1.6-2.6) mg/dL Total Bilirubin 0.5 (0.0-1.0) mg/dL Direct Bilirubin 0.2 (0.0-0.5) mg/dL AST 18 (5-37) U/L ALT 21 (0-40) U/L Alkaline Phosphatase 87 (39-117) U/L Troponin I High Sens 9.6 D (<3.5-35.0) ng/L Total Protein 6.4 L (6.5-8.0) g/dL Albumin 3.8 (3.5-5.0) g/dL COVID-19 (JOSR) Negative (Negative) COVID-19 Clin Com See Note ECG Data Attestation: I personally reviewed and interpreted this ECG as follows: ECG interpretation date: 02/19/21 ECG interpretation time: 15:05 Interpretation: Rate: 73 Rhythm: NSR [place]: normal Normal P waves. Normal WILL. incomplete RBBB ST T wave : normal no BARBARA qTC: normal prior studies: no change no acute ischemia The study has been interpreted contemporaneously by me. . NIH Stroke Scale Internal: Initial- Upon Arrival Level of Consciousness: Alert Level of Consciousness Questions: Answers both questions correctly Level of Consciousness Commands: Performs both tasks correctly Best Gaze: Normal Visual: No visual loss Facial Palsy: Normal Motor Arm (Right): No drift Motor Arm (Left): Some effort against gravity Motor Leg (Right): Drift Motor Leg (Left): No drift Limb Ataxia: Absent Sensory: Mild to moderate sensory loss Best Language: No aphasia Dysarthia: Normal Extinction and Inattention: No abnormality Score: 4 Discharge Plan Discharge Clinical Impression: Weakness of right foot, Acute hyperglycemia CRI (chronic renal insufficiency) Qualifiers: Chronic kidney disease stage: unspecified stage Qualified Code(s): N18.9 - Ch ronic kidney disease, unspecified Patient Disposition: Admitted As Inpatient
--- NOTE | 2021-02-19 14:16 | ECG_ITS ---
Test Reason : STROKE SYMPTOMS Blood Pressure : / mmHG Vent. Rate : 073 BPM Atrial Rate : 073 BPM P-R Int : 114 ms QRS Dur : 128 ms QT Int : 444 ms P-R-T Axes : 034 032 004 degrees QTc Int : 489 ms Normal sinus rhythm Right bundle branch block Abnormal ECG When compared with ECG of 12-FEB-2021 14:48, QRS duration has decreased T wave inversion no longer evident in Anterior leads Referred By: Jessica Russell Electronically Signed By:BETSY LOWE MD
[2021-02-19 14:40] LABS: Glucose, Whole Blood 377 mg/dL (60-115)
[2021-02-19 14:42] LABS: MANUAL DIFF FLAG NO
[2021-02-19 14:51] LABS: Basophils Percent Auto 0.4 % (0-2); Eosinophils Absolute Auto 0.3 X10*3/uL (0.0-0.4); Hematocrit 37.6 % (42-52); Imm Gran Abs Auto 0.02 X10*3/uL (0.00-0.03); Imm Gran Pct Auto 0.2 % (0.0-0.4); Lymphocytes Absolute Auto 1.1 X10*3/uL (1.2-4.9); Lymphocytes Percent Auto 13.9 % (20-40); Mean Corpuscular HGB Conc 34.6 g/dl (31.0-36.0); Mean Corpuscular Hemoglobin 33.3 pg (27.0-33.0); Mean Corpuscular Volume 96.4 fL (80-98); Mean Platelet Volume 8.9 fL (9.4-12.4); Monocytes Percent Auto 12.7 % (2-11); Neutrophils Absolute Auto 5.6 X10*3/uL (2.0-8.3); Neutrophils Percent Auto 68.8 % (45-73); Platelet Count 238 X10*3/uL (160-400); Red Cell Distribution Width 13.1 % (11.0-16.0); White Blood Count 8.1 X10*3/uL (4.8-10.8)
[2021-02-19 14:53] LABS: Prothrombin Time 12.2 SEC (10.8-13.0)
[2021-02-19 14:56] LABS: Partial Thromboplastin Time 33.8 SEC (24.1-38.0)
[2021-02-19 15:07] LABS: COVID-19 Test Negative (Negative); IDNOW Serial# 9DD0AD1C
[2021-02-19 15:14] LABS: Troponin-I High Sensitivity 9.6 ng/L (<3.5-35.0)
--- NOTE | 2021-02-19 15:14 | PC.NURSE ---
pt states he was unable to continue with prescribed brilinta d/t cost. has continued his plavix 75mg which was used in previous strokes. last taken yesterday.
[2021-02-19 15:20] LABS: Alanine Aminotransferase 21 U/L (0-40); Albumin Level 3.8 g/dL (3.5-5.0); Alkaline Phosphatase 87 U/L (39-117); Anion Gap 15 (12-20); Aspartate Amino Transferase 18 U/L (5-37); Bilirubin Direct 0.2 mg/dL (0.0-0.5); Bilirubin Total 0.5 mg/dL (0.0-1.0); Blood Urea Nitrogen 27 mg/dL (9-16); Calcium 8.5 mg/dL (8.4-10.2); Carbon Dioxide 24 mmol/L (22-29); Chloride 102 mmol/L (96-108); Creatinine Clr Calc Pharmacy 40.7; Estimated Glomerular Filt Rate 42; Glucose Random 410 mg/dL (60-115); Magnesium 2.3 mg/dL (1.6-2.6); Potassium 4.4 mmol/L (3.3-5.1); Sodium 137 mmol/L (135-145); Total Protein 6.4 g/dL (6.5-8.0)
[2021-02-19 15:21] VITALS: BP 199/90; PULSE 78; RESP 16; O2SAT 99
[2021-02-19 15:49] VITALS: BP 179/84; PULSE 73; RESP 16
--- NOTE | 2021-02-19 15:52 | MHC.STROKE ---
EMS PRE-NOTIFIED AT 1330, PATIENT WITH HISTORY OF STROKE. ARRIVED 1334. PATIENT IS KNOWN TO THE STROKE SERVICE. RECENTLY ADMITTED ON 01/12/21 AND DISCHARGED ON 01/14/21 TO [facility] FOR RIGHT CEA DONE BY DR DHALIWAL. HE ARRIVES TO DAY WITH RIGHT FOOT WEAKNESS, NIHSS = [address] SAMPSON'S NOTE. WAS WAS ALSO HERE ON 02/12/21 WITH A LOW BLOOD SUGAR OF 25 AND HE WAS DISCHARGED HOME FROM THE ED. AFTER HIS CEA AT [facility] HE WENT TO [facility]. HE IS EXCLUDED FROM TPA BASED ON RECENT STROKE WITHIN 3 MONTHS. HE PASSED HIS SWALLOW SCREEN AND STROKE EDUCATION WAS INITIATED. HE MENTIONED THAT HE WAS SUPPOSE TO BE ON BRILINTA AND WHEN HE WAS DISCHARGED BY [facility] HIS PRESCRIPTIONS WERE SENT TO THE LOCAL PHARMACY, THIS MED WAS TOO EXPENSIVE THEREFORE HE TOOK PLAVIX. HE WANTED US TO CHECK WITH THE [facility] TO DETERMINE THE COST OF THIS MEDICATION BECAUSE HE RECALLED THAT HE ONLY PAID $20. I HAVE CASE MANAGEMENT LOOKING INTO THIS FOR HIM. I WILL CONTINUE TO FOLLOW.
[2021-02-19] MEDS: Insulin Regular, Human 100 UNIT/ML 3 ML VIAL IVPUSH (16:20)
[2021-02-19 16:23] VITALS: BP 180/87; PULSE 71; RESP 16; O2SAT 99
[2021-02-19 17:15] VITALS: BP 180/87; PULSE 74; RESP 16; O2SAT 98
== END 2021-02-19 17:33 | disposition home or self-care (01) ==
PROVIDERS: Emergency Provider Emergency Medicine; PCP Internal Medicine
DX: R53.1 Weakness (principal); E10.65 Type 1 diabetes mellitus with hyperglycemia; E10.22 Type 1 diabetes mellitus with diabetic chronic kidney disease; I12.9 Hypertensive chronic kidney disease with stage 1 through stage 4 chronic kidney disease, or unspecified chronic kidney disease; N18.9 Chronic kidney disease, unspecified; Z20.822 Contact with and (suspected) exposure to COVID-19; E78.5 Hyperlipidemia, unspecified; Z86.73 Personal history of transient ischemic attack (TIA), and cerebral infarction without residual deficits; F17.210 Nicotine dependence, cigarettes, uncomplicated; Z79.82 Long term (current) use of aspirin; Z79.899 Other long term (current) drug therapy; Z79.4 Long term (current) use of insulin; Z79.01 Long term (current) use of anticoagulants
CPT/HCPCS: 36415; 70450; 80048; 80076; 82947; 83735; 84484; 85025; 85610; 85730; 87635; 93005; 96374; 99284; 99285

== ENCOUNTER 2021-03-09 11:30 | Outpatient (RCR) | payer MEDICARE, BC, SELFPAY | END 2021-03-31 11:35 | disposition other institution (70) | LOC: HO.OT 11:30 | PROVIDERS: PCP Internal Medicine; Visit Provider Internal Medicine | DX: R26.0 Ataxic gait (principal) | CPT/HCPCS: 97110; 97112; 97166; 97530; 97535 ==

== ENCOUNTER 2021-03-09 18:22 | Inpatient (IN) | payer MEDICARE, BC, SELFPAY ==
[2021-03-09] VITALS (10 sets, daily range): BP systolic 152–232; BP diastolic 65–103; PULSE 67–81; RESP 12–18; TEMP 36.9; O2SAT 97–99; BMI 21.9
--- NOTE | ~2021-03-09 | US_ITS ---
EXAMINATION: ULTRASOUND RENAL DOPPLER. CLINICAL INFORMATION: Renovascular hypertension. COMPARISON: Ultrasound renal Doppler 05/13/2020 TECHNIQUE: Routine grayscale imaging of kidneys followed by retroperitoneal Doppler ultrasound performed. FINDINGS: The right kidney is normal size measuring 8.01 cm in length, 3.48 cm in width and 3.97 cm in transverse dimension. There is normal cortical thickness. No visible echogenic stone or hydronephrosis. The left kidney measures 11.0 cm in length, 5.43 cm in AP and 5.02 cm wide. There is normal cortical thickness. No echogenic stones, cyst or hydronephrosis. On Doppler exam there is distal abdominal aortic aneurysm measuring 3.4 x 3.5 cm and velocity measuring 84.3 cm/second in the mid segment. No obvious plaque or thrombus formation seen. On previous exam the aortic velocity was 96.3 cm/second. Right kidney: Renal artery velocity proximal segment measures 171 cm/second, mid segment measures 48.9 cm/second, distal segment measures 17.8 cm/second. Average segmental resistive index is less than 0.80. RAR is 2.03. There is no suspicion for renal artery stenosis Left kidney: Left renal artery velocity proximal segment measures 226 cm/second, mid segment measures 235 cm/second. The aortic velocity has dropped distal segment measures 176/second. Previously the velocities measured 130 cm/second proximal segment, 92.27 cm/second mid segment and 10 7 cm/seconds distal segment. The resistive index is also elevated measuring 0.8. The RAR borderline and elevated measuring 0.81. The findings are strongly suspicious for renal artery stenosis. US/US renal doppler IMPRESSION: Findings strongly suspicious for left renal artery stenosis. Mid abdominal aortic aneurysm new since the previous study. But still within the range for calculation of RAR. There is no suggestion for right renal artery stenosis. Bilateral renal ultrasound is unremarkable. There is distal abdominal aortic aneurysm measuring 3.4 x 3.5 cm. Previously no aneurysm was recorded.
--- NOTE | ~2021-03-09 | CT_ITS ---
EXAMINATION: CT HEAD WITHOUT CONTRAST CLINICAL INFORMATION: Hypertension. Dizziness. COMPARISON: Multiple prior studies. Most recent CT head 02/19/2021. TECHNIQUE: Contiguous axial imaging was performed from the skull base to vertex without intravenous administration of contrast. Coronal and sagittal reformatted images are performed at the CT scanner. [This CT examination was performed using dose optimization techniques as appropriate, variously including the following: *Automated exposure control *Adjustment of mA and/or kV according to patient size (this includes techniques or standardized protocols for targeted exams where dose is matched to indication/reason for exam; i.e. extremities or head) *Use of iterative reconstruction technique] DLP: 676 mGy-cm. FINDINGS: Multifocal hypodensity present in the right frontal parietal lobe region. These show expected evolution of developing chronic infarcts compared to the CAT scan of 02/19/2021. Chronic lacunar infarct in the basal ganglia on the right. There is no evidence of acute intracranial hemorrhage or new territorial infarction. No abnormal mass-effect or midline shift is seen. Elizabeth to white matter differentiation is well preserved. No extra-axial fluid collections are identified. Age-appropriate mild atrophy. Pituitary gland is enlarged measuring 1.6 cm superior inferior 1.3 cm transverse. Consistent with patient's known pituitary macroadenoma. Pituitary macroadenoma has not changed substantially in size since prior MR study of 02/09/2019. There is no osseous abnormality. The mastoid air cells and visualized portions of the paranasal sinuses are well-aerated. CT/CT head/brain wo con IMPRESSION: 1. Expected evolution of previously seen right frontal parietal lobe infarcts 2. No new territorial infarct or intracranial hemorrhage. 3. Stable known pituitary macroadenoma.
--- NOTE | ~2021-03-09 | US_ITS ---
EXAMINATION: US RETROPERITONEAL LIMITED (RENAL ONLY) CLINICAL INFORMATION: Renal vascular hypertension. COMPARISON: Previous CT of the abdomen and pelvis March 2017 and abdominal ultrasound most recent September 2018 and renal ultrasound and renal Doppler April 2020 TECHNIQUE: Grayscale color and Doppler imaging of the kidneys including waveform spectral analysis of the renal arteries, renal veins and aorta. FINDINGS: RIGHT KIDNEY: 8 x 3.5 x 4 cm (SAG x AP x TRV). The kidney is small but normal in contour and echogenicity. There is right renal cortical thinning. This is new or increased from April 2020 exam. Difficult to visualize by ultrasound. No calculi or focal parenchymal lesions. No hydronephrosis. LEFT KIDNEY: 11.7 x 6.5 x 5 cm (SAG x AP x TRV). The kidney is normal in size, contour, and echogenicity. Renal cortical thickness is normal. No calculi or focal parenchymal lesions. No hydronephrosis. There is distal abdominal aortic aneurysm that measures 3.4 x 3.5 cm in AP and transverse dimension. Aortic peak systolic velocity measures 84 cm/s. There is an abnormal waveform seen in the right renal artery with tardus parvus flow and low velocities. Right proximal renal artery peak systolic velocity measures 171 cm/s, mid 49 cm/s and distal 18 cm/s. Right renal artery to aorta ratio is 2. Resistive indices in the right kidney measures 0.5-0.6. The right renal vein is patent. There are increased peak systolic velocities in the left renal artery. Left renal artery peak systolic velocity measures 226 cm/s, mid 235 cm/s and distal 176 cm/s. The left renal artery to aorta ratio measures 2.8. Resistive indices in the left kidney measuring 0.6-0.8. The left renal artery is patent. US/US renal BI IMPRESSION: Small right kidney with right renal cortical thinning. The right kidney is difficult to visualize. Normal-appearing left kidney. There is an abnormal dampened waveform in the right renal artery and low peak systolic velocities suggestive of more proximal stenosis. Increased peak systolic velocity in the left renal artery suggestive of left renal artery stenosis. Of note, CT of the abdomen and pelvis March 2017 demonstrates 2 left renal arteries. 3.4 x 3.5 cm aneurysm of the distal abdominal aorta.
[2021-03-09 19:14] LABS: MANUAL DIFF FLAG NO
[2021-03-09 19:19] LABS: Basophils Percent Auto 0.5 % (0-2); Eosinophils Absolute Auto 0.3 X10*3/uL (0.0-0.4); Eosinophils Percent Auto 4.2 % (0-4); Hematocrit 35.1 % (42-52); Hemoglobin 12.3 g/dl (14.0-18.0); Imm Gran Abs Auto 0.02 X10*3/uL (0.00-0.03); Imm Gran Pct Auto 0.3 % (0.0-0.4); Lymphocytes Absolute Auto 1.6 X10*3/uL (1.2-4.9); Lymphocytes Percent Auto 20.8 % (20-40); Mean Corpuscular Hemoglobin 32.7 pg (27.0-33.0); Mean Corpuscular Volume 93.4 fL (80-98); Mean Platelet Volume 8.6 fL (9.4-12.4); Monocytes Absolute Auto 0.9 X10*3/uL (0.1-1.2); Monocytes Percent Auto 11.4 % (2-11); Neutrophils Absolute Auto 4.9 X10*3/uL (2.0-8.3); Neutrophils Percent Auto 62.8 % (45-73); Platelet Count 209 X10*3/uL (160-400); Red Blood Count 3.76 X10*6/uL (4.60-5.80); Red Cell Distribution Width 12.8 % (11.0-16.0); White Blood Count 7.8 X10*3/uL (4.8-10.8)
[2021-03-09 19:29] LABS: Prothrombin Time 11.9 SEC (10.8-13.0)
[2021-03-09 19:44] LABS: Anion Gap 13 (12-20); Blood Urea Nitrogen 37 mg/dL (9-16); Calcium 8.8 mg/dL (8.4-10.2); Carbon Dioxide 27 mmol/L (22-29); Chloride 101 mmol/L (96-108); Creatinine Clr Calc Pharmacy 36.3; Estimated Glomerular Filt Rate 38; Glucose Random 245 mg/dL (60-115); Potassium 3.6 mmol/L (3.3-5.1); Sodium 137 mmol/L (135-145)
[2021-03-09 19:49] LABS: Troponin-I High Sensitivity 20.9 ng/L (<3.5-35.0)
[2021-03-09] MEDS: amLODIPine Besylate 5 MG TABLET PO (20:59)
--- NOTE | 2021-03-09 21:03 | ED_ITS ---
HPI - General Adult General Chief complaint: Dizziness Stated complaint: dizziness, bp Time Seen by Provider: 03/09/21 20:30 Source: patient and family (Spouse) Mode of arrival: ambulatory Limitations: no limitations History of Present Illness HPI narrative: 70 years old male came in for evaluation of elevated blood pressure. 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 that is improving with OT/PT, patient did not receive tPA with out of the window of treatment on 01/12/2021, patient was transferred to [facility] and had a surgery for right carotid endarterectomy, when patient had the stroke his blood pressure was very high, patient has been taking in medicine to control his blood pressure which seemed to be poorly controlled, had blood pressure at home today systolic blood pressure above 200 and diastolic was above 100 patient was concerned came to the emergency room, patient is taking carvedilol 12.5 mg tablet twice a day, and nifedipine 90 mg tablet daily been upped by his renal doctor. Patient otherwise declined any symptoms in particular no chest pain , no shortness breath, no dizziness, or no headache. Related Data Home Medications Medication Instructions Recorded Confirmed aspirin 81 mg tablet,delayed 81 mg PO DAILY 09/10/20 02/19/21 release cholecalciferol (vitamin D3) 50 50 mcg PO DAILY 09/10/20 02/19/21 mcg (2,000 unit) capsule emtricitabine 200 mg-tenofovir 1 tab PO DAILY 09/10/20 02/19/21 alafenamide fumarate 25 mg tablet latanoprost 0.005 % eye drops 1 drp OPHTHALMIC (EYE) BEDTIME 09/10/20 02/19/21 nitroglycerin 0.4 mg sublingual 0.4 mg SUBLINGUAL Q5M PRN 09/10/20 02/19/21 tablet escitalopram oxalate 10 mg tablet 10 mg PO DAILY 12/31/20 02/19/21 insulin aspart U-100 100 unit/mL 0 unit SUBCUT QIDACHS ml 12/31/20 02/19/21 (3 mL) subcutaneous pen dorzolamide-timolol 1 drp OPHTHALMIC (EYE) BID 01/12/21 02/19/21 baclofen 10 tab PO TID 02/12/21 02/19/21 hydralazine 1 tab PO Q6H 02/12/21 02/19/21 Tresiba FlexTouch U-100 45 unit SUBCUT DAILY 02/19/21 02/19/21 acetaminophen 650 mg PO Q4H PRN 02/19/21 02/19/21 albuterol sulfate 2 puff INHALATION Q4H PRN 02/19/21 02/19/21 carvedilol 1 tab PO BID 02/19/21 02/19/21 clopidogrel 1 tab PO DAILY 02/19/21 02/19/21 melatonin 5 mg PO BEDTIME 02/19/21 02/19/21 metoprolol tartrate 1 tab PO BID 02/19/21 02/19/21 nifedipine 2 tab PO DAILY 02/19/21 02/19/21 Previous Rx's Medication Instructions Recorded blood sugar diagnostic #100 ea 09/23/20 ezetimibe 10 mg tablet 10 mg PO DAILY 90 Days #90 tab 11/26/20 atorvastatin 80 mg tablet 80 mg PO BEDTIME 30 Days #30 tab 02/12/21 Allergies Allergy/AdvReac Type Severity Reaction Status Date / Time No Known Allergies Allergy Verified 03/09/21 18:25 Review of Systems Review of Systems: All other systems are reviewed and are negative Constitutional: Reports as per HPI and Reports no additional constitutional complaints Eyes: Reports as per HPI and Reports no additional eye complaints Reports system reviewed and no additional complaints, except as documented Cardiovascular: Reports as per HPI and Reports no additional cardiovascular complaints Respiratory: Reports as per HPI and Reports no additional respiratory complaints Gastrointestinal: Reports as per HPI and Reports no additional gastrointestinal complaints Genitourinary: Reports no additional female genitourinary complaints Musculoskeletal: Reports no additional musculoskeletal complaints Skin/Breast: Reports system reviewed and no additional complaints, except as docu Psychiatric: Reports no additional psychiatric complaints Endocrine: Reports no additional endocrine complaints Hematologic/Lymphatic: Reports no additional hematologic/lymphatic complaints Allergic/Immunologic: Reports no additional allergic/immunologic complaints Reports system reviewed and no additional complaints, except as documented and Reports Abnormal speech present [facility] Past Medical History Medical History CAD (coronary artery disease) CVA (cerebral vascular accident) Encounter for loop recorder check HLD (hyperlipidemia) HTN (hypertension) 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 Social History Social History Household Members: None Housing: House Alcohol intake: never Smoking Status: Never smoker Packs Per Day: 1 Cigarettes Per Day: 20.0 Years Smoked: 30 Advance Directives: No Advance Directives Information Provided: No service: No Current occupational status: retired Physical Exam Vital Signs: Vital Signs: Last Vital Signs Temp 98.4 F 03/09/21 18:26 Pulse 68 03/10/21 00:01 Resp 15 03/10/21 00:01 BP 199/94 H 03/10/21 00:01 Pulse Ox 97 03/09/21 23:59 Body Mass Index 21.9 Vital signs have been reviewed as appeared to be correct. Blood pressure elevated. Heart rate normal. Respiration rate normal. Temperature normal. Oxygen saturation normal. Appearance: Alert. Oriented X3. No acute distress. Head: Normal external exam. Normocephalic. Atraumatic. No Michael signs noted. No raccoon eyes noted Eyes: PERRLA. EOMI. Conjunctiva and sclera normal. Eyelids normal. ENT: TM's Normal. Pharynx normal. Uvula midline. Moist mucous membranes. No trismus noted. No drooling noted. No muffled voice noted. Neck: Normal inspection. Neck supple. FROM. No adenopathy. Thyroid Normal. No meningeal signs. No neck mass noted. CVS: Normal heart rate and rhythm. Heart sound normal. No murmurs noted. Pulses normal throughout. Respiratory: No respiratory distress. Painless inspiration. Breath sounds normal. No wheezes/rales/rhonchi noted. Chest nontender. No accessory muscle usage noted or decreased air movement noted. Abdomen: Soft and nontender. Bowel sounds normal in all 4 quadrants. No distention noted. No organomegaly noted. No visible injury noted. Back: No CVA tenderness. Full range of motion noted. Skin: Skin warm and dry. Normal skin color. Normal skin turgor. No rashes/lesions/lacerations noted. Extremities: No lower extremity edema. Extremities exhibit normal range of motion. Extremities nontender. Neuro: Oriented X 3. Pre-existing left hemiparesis. No sensory deficit. Reflexes normal. Course Course Course Narrative: Assessment and plan. 70-year-old male with history of hypertension, recent ischemic stroke last months left with residual left hemiparesis likely secondary to uncontrolled hypertension, patient presented with dizziness and elevated blood pressure systolic above 200 diastolic above 100. Patient took his home medication without improvement of his blood pressure numbers, in the emergency department patient received 1 dose of amlodipine p.o., and 1 dose of 20 mg of labetalol, with transient improvement of his blood pressure. Systolic Blood pressure again is above 200. The case discussed with Dr. hopkins ICU attending, who recommended to give the patient 100 mg p.o. labetalol and refrain from IV antihypertensive medication, patient will be admitted to ICU for monitoring overnight. Medical Decision Making Lab Data Lab results reviewed: Yes I reviewed the patient's lab results. Result diagrams: 03/09/21 19:07 03/09/21 19:07 Labs: Lab Results 03/09/21 03/09/21 03/09/21 Range/Units 19:07 19:07 19:07 WBC 7.8 (4.8-10.8) X10*3/uL RBC 3.76 L (4.60-5.80) X10*6/uL Hgb 12.3 L (14.0-18.0) g/dl Hct 35.1 L (42-52) % MCV 93.4 (80-98) fL MCH 32.7 (27.0-33.0) pg MCHC 35.0 (31.0-36.0) g/dl RDW 12.8 (11.0-16.0) % Plt Count 209 (160-400) X10*3/uL MPV 8.6 L (9.4-12.4) fL Immature Gran % (Auto) 0.3 (0.0-0.4) % Neut % (Auto) 62.8 (45-73) % Lymph % (Auto) 20.8 (20-40) % [place] % (Auto) 11.4 H (2-11) % Eos % (Auto) 4.2 H (0-4) % Baso % (Auto) 0.5 (0-2) % Lymph # (Auto) 1.6 (1.2-4.9) X10*3/uL [place] # (Auto) 0.9 (0.1-1.2) X10*3/uL Eos # (Auto) 0.3 (0.0-0.4) X10*3/uL Baso # (Auto) 0.0 (0.0-0.2) X10*3/uL Abs Immat Gran (auto) 0.02 (0.00-0.03) X10*3/uL Absolute Neuts (auto) 4.9 (2.0-8.3) X10*3/uL Absolute Nucleated RBC 0.000 (0.0-0.012) X10*3/uL Nucleated RBC % (auto) 0.0 (0.0-0.2) /100WBC PT 11.9 (10.8-13.0) SEC INR 1.0 (0.9-1.1) Hold Blue Top SEE NOTE Sodium 137 (135-145) mmol/L Potassium 3.6 (3.3-5.1) mmol/L Chloride 101 (96-108) mmol/L Carbon Dioxide 27 (22-29) mmol/L Anion Gap 13 (12-20) BUN 37 H (9-16) mg/dL Creatinine 1.77 H (0.5-1.4) mg/dL Estim Creat Clear Calc 36.3 Estimated GFR 38 Random Glucose 245 H D (60-115) mg/dL Calcium 8.8 (8.4-10.2) mg/dL Troponin I High Sens (<3.5-35.0) ng/L COVID-19 (JOSR) (Negative) COVID-19 Clin Com 03/09/21 03/09/21 03/09/21 Range/Units 19:07 22:16 22:53 WBC (4.8-10.8) X10*3/uL RBC (4.60-5.80) X10*6/uL Hgb (14.0-18.0) g/dl Hct (42-52) % MCV (80-98) fL MCH (27.0-33.0) pg MCHC (31.0-36.0) g/dl RDW (11.0-16.0) % Plt Count (160-400) X10*3/uL MPV (9.4-12.4) fL Immature Gran % (Auto) (0.0-0.4) % Neut % (Auto) (45-73) % Lymph % (Auto) (20-40) % [place] % (Auto) (2-11) % Eos % (Auto) (0-4) % Baso % (Auto) (0-2) % Lymph # (Auto) (1.2-4.9) X10*3/uL [place] # (Auto) (0.1-1.2) X10*3/uL Eos # (Auto) (0.0-0.4) X10*3/uL Baso # (Auto) (0.0-0.2) X10*3/uL Abs Immat Gran (auto) (0.00-0.03) X10*3/uL Absolute Neuts (auto) (2.0-8.3) X10*3/uL Absolute Nucleated RBC (0.0-0.012) X10*3/uL Nucleated RBC % (auto) (0.0-0.2) /100WBC PT (10.8-13.0) SEC INR (0.9-1.1) Hold Blue Top Sodium (135-145) mmol/L Potassium (3.3-5.1) mmol/L Chloride (96-108) mmol/L Carbon Dioxide (22-29) mmol/L Anion Gap (12-20) BUN (9-16) mg/dL Creatinine (0.5-1.4) mg/dL Estim Creat Clear Calc Estimated GFR Random Glucose (60-115) mg/dL Calcium (8.4-10.2) mg/dL Troponin I High Sens 20.9 23.1 (<3.5-35.0) ng/L COVID-19 (JOSR) Negative (Negative) COVID-19 Clin Com See Note Imaging Data CT scan - head: Radiologist's impression: 1. Expected evolution of previously seen right frontal parietal lobe infarcts 2. No new territorial infarct or intracranial hemorrhage. 3. Stable known pituitary macroadenoma. Critical Care Time Critical Care Time Critical Care Time: Yes Total Critical Care Time: 60 Attestation: I spent 60 minutes providing critical care service to the patient, this including time spent at the bedside to evaluate the patient, reassess the patient, monitoring vital signs, review labs, and radiographic studies, counseling the patient/family, discussing the case with consultants, disposition the patient. Discharge Plan Discharge Clinical Impression: Hypertension Qualifiers: Hypertension type: essential hypertension Qualified Code(s): I10 - Essential (primary) hypertension Patient Disposition: Admitted As Inpatient
[2021-03-09] MEDS: Labetalol HCL 100 MG/20 ML VIAL 20 MG IVPUSH (21:38)
[2021-03-09] MEDS: Labetalol HCL 100 MG TABLET PO (22:51)
[2021-03-09 22:55] LABS: Troponin-I High Sensitivity 23.1 ng/L (<3.5-35.0)
--- NOTE | 2021-03-09 22:56 | ECG_ITS ---
Test Reason : HTN Blood Pressure : / mmHG Vent. Rate : 074 BPM Atrial Rate : 074 BPM P-R Int : 126 ms QRS Dur : 132 ms QT Int : 426 ms P-R-T Axes : -06 014 019 degrees QTc Int : 472 ms Normal sinus rhythm Right bundle branch block Abnormal ECG When compared with ECG of 19-FEB-2021 14:20, No significant change was found Referred By: Carmen Venegas Electronically Signed By:BETSY LOWE MD
[2021-03-09 23:15] LABS: COVID-19 Test Negative (Negative); IDNOW Serial# 9DD0AD1C
[2021-03-10] VITALS (28 sets, daily range): BP systolic 122–201; BP diastolic 53–94; PULSE 62–82; RESP 9–116; TEMP 36.6–36.9; O2SAT 95–100
--- NOTE | 2021-03-10 00:59 | PC.NURSE ---
NURSE TO NURSE GIVEN TO ORTEGA DO
--- NOTE | 2021-03-10 01:03 | P.HPCC_ITS ---
History of Present Illness Date of Service: 03/10/21 Chief Complaint: Hypertensive emergency/dizziness HPI: 70-year-old male with underlying history of recent ischemic stroke on 01/12/2021 for which who was transferred to [facility], he then underwent a right carotid endarterectomy, has had multiple hypertensive crisis is in fact he did have 1 when he had the above-mentioned stroke. Came with complaints of lightheadedness, tiredness, gait imbalance even with cane and bl ood pressure elevation of 240/130 a home despite of the intake of his home medications. He has underlying history of coronary disease post stent, hypertension, pituitary macroadenoma, vitamin-D deficiency, type 1 diabetes. In emergency room, patient was noted to his chronic residual left upper grabiel paresis from the above-mentioned prior stroke, his overall exam did not show any worsening neurological deficits however his blood pressure appear to be elevated consistently and above 200. Patient did receive small dose of labetalol which did not help bring down his blood pressure. His workup revealed a white count 7.8, H&H of 12.3 and 35.1 respectively, platelets of 209. INR is 1.0. Electroly george are normal. Creatinine is 1.77 (recent baseline 1.69 ). COVID test negative. Case was discussed by the ER physician with the 80s to NT was advised to observe him overnight, I requested a head CT to ensure there is no intracranial hemorrhage features or large occlusive stroke causing the dizzi ness. ROS: Denies headache, denies trouble thinking, speaking, no visual changes no history of seizures, no history of eye or ear problems, no sore throat, cough or sputum production, denies shortness of breath, denies chest pain, palpitations, pulmonary disease although he was a smoker for 50 years, no hemoptysis, denies any melena, hematochezia, no dysuria, hematuria, no leg swelling, no history of DVT or PE. She has no travel and has not been contact with anybody with COVID. All other review of systems negative. 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 Social History: Lives at home, in a house with his sister, there is stairs a he uses right side hand rail to go up, he uses a cane. Patient is compliant with medications, has a 50 pack-year history of tobacco consumption, quit in December of this year, no alcohol or drug consumption history. CODE STATUS: FULL CODE Allergies: No known drug allergies Home Medications: Please see [facility] rec PHYSICAL EXAM: VS: 200/95, heart rate 69, 16, 97% on room air, temperature 98.4?. ?General: Alert oriented x3 no acute distress. Speaking full sentences. Speech is well articulated, thought process is coherent. Following all commands. ?Skin: Intact, no lesions, edema, erythema, clubbing or cyanosis. No ulcers. ?HEENT: Head is normocephalic, atraumatic, pupils equal round reactive to light accommodation bilaterally. Extraocular movements appear intact. Buccal mucosa is moist, Neck is supple without lymphadenopathy. ?Cardiac: Clear S1-S2, no murmurs rubs or gallops. ?Pulmonary: Clear to auscultation, no wheezes, rales or rhonchi. ?Abdomen: Protuberant, positive bowel sounds in all 4 quadrants. Soft, nontender, no rebound or guarding. Insulin pump in the left abdomen ?Musculoskeletal: Chronic left-sided upper extremity hemiparesis from recent stroke. Otherwise moving right upper and right lower extremity other major joints upon request without any crepitus. No calf tenderness, no asymmetry or edema noted. Gait not assessed. ?Neurologic: As above, cranial nerves 2-12 are grossly intact. No new neurological deficits ?Motor strength as above. ?Vascular: 2+ pulses upper and lower extremities distally. ? SIGNIFICANT LABORATORY DATA: As above REVIEW OF IMAGES: Head CT 1. Expected evolution of previously seen right frontal parietal lobe infarcts 2. No new territorial infarct or intracranial hemorrhage. 3. Stable known pituitary macroadenoma. EKG REVIEW: Sinus rhythm 73 beats per minute. No ST elevations, no depressions. Evidence of right bundle-branch block. QTC 48 ASSESSMENT AND PLAN: 1. Hypertensive Urgency 2. Lightheadedness due to above with no new focal neurological deficits and negative head CT 3. MALLY on CKD Stage 3 4. Normocytic Anemia ? due to CKD 5. Hx CVA with Left upper extremity Hemiparesis without any changes 6. Hx Pituitary Macroadenoma unchanged on current CT 7. DM type 1 with insulin pump on his left abdomen 8. Anxiety well controlled 9. 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 Will continue to treat this slowly with labetalol and if needed hydralazine p.o. encourage oral fluids, resume home medications in the morning once med rec is clarified, insulin sliding scale, resume escitalopram and other home medications once verified in the morning at [facility] in [place]. If necessary consult Nephrology. Continue with aspirin, atorvastatin. Continue with neuro checks. GI PROPHYLAXIS: not needed DVT PROPHYLAXIS: Pneumatic Stocks only given the elevated BP; no heparin Critical care time used for critical evaluation of this patient, diagnosis, treatment and coordination of care, review her records and documentation TOTAL CRITICAL CARE TIME 90 MIN . Patient's care was discussed in detail with Dr. Mccray. He is aware of all the above as well as the plan of care for this patient. [facility] Past Medical History Medical History CAD (coronary artery disease) CVA (cerebral vascular accident) Encounter for loop recorder check HLD (hyperlipidemia) HTN (hypertension) 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 Surgical History Surgical History History of carotid endarterectomy History of heart artery stent Social History Social History Household Members: None Housing: House Alcohol intake: never Smoking Status: Never smoker Packs Per Day: 1 Cigarettes Per Day: 20.0 Years Smoked: 30 service: No Current occupational status: unemployed and retired Meds Allergies Allergy/AdvReac Type Severity Reaction Status Date / Time No Known Allergies Allergy Verified 03/09/21 18:25 Active Medications: Current Medications Generic Name Dose Route Start Last Admin Trade Name Freq PRN Reason Stop Dose Admin Labetalol HCl 20 mg 03/09/21 21:18 03/09/21 21:38 Labetalol Hcl 100 Mg/20 Ml Vial IVPUSH 20 mg Q20M PRN Administration SBP > 160 Home Medications Medication Instructions Recorded Confirmed Last Taken Type aspirin 81 mg tablet,delayed 81 mg PO DAILY 09/10/20 03/10/21 03/08/21 History release cholecalciferol (vitamin D3) 50 50 mcg PO DAILY 09/10/20 03/10/21 03/09/21 History mcg (2,000 unit) capsule emtricitabine 200 mg-tenofovir 1 tab PO DAILY 09/10/20 03/10/21 03/09/21 History alafenamide fumarate 25 mg tablet latanoprost 0.005 % eye drops 1 drp OPHTHALMIC (EYE) BEDTIME 09/10/20 03/10/21 03/08/21 History nitroglycerin 0.4 mg sublingual 0.4 mg SUBLINGUAL Q5M PRN 09/10/20 03/10/21 02/18/21 History tablet escitalopram oxalate 10 mg tablet 10 mg PO DAILY 12/31/20 03/10/21 03/09/21 History insulin aspart U-100 100 unit/mL 0 unit SUBCUT QIDACHS ml 12/31/20 03/10/21 03/09/21 History (3 mL) subcutaneous pen dorzolamide-timolol 1 drp OPHTHALMIC (EYE) BID 01/12/21 03/10/21 03/09/21 History baclofen 5 mg PO TID 02/12/21 03/10/21 03/09/21 History Tresiba FlexTouch U-100 45 unit SUBCUT DAILY 02/19/21 03/10/21 03/08/21 History albuterol sulfate 2 puff INHALATION Q4H PRN 02/19/21 03/10/21 03/08/21 History carvedilol 12.5 mg PO BID 02/19/21 03/10/21 03/09/21 History melatonin 5 mg PO BEDTIME 02/19/21 03/10/21 03/08/21 History nifedipine 90 mg PO DAILY 02/19/21 03/10/21 03/08/21 History ticagrelor [Brilinta] 1 tab PO BID 03/10/21 03/10/21 Unknown History Physical Exam Vital Signs: Vital Signs: Last Vital Signs Temp 98.4 F 03/09/21 18:26 Pulse 66 03/10/21 00:55 Resp 14 03/10/21 00:55 BP 199/92 H 03/10/21 00:55 Pulse Ox 97 03/10/21 00:55 Body Mass Index 21.9 Results Labs CBC and Chem 7: 03/11/21 05:23 03/11/21 05:23 Labs: Laboratory Results - last 24 hr 03/09/21 03/09/21 03/09/21 19:07 19:07 19:07 Hct 35.1 L MCV 93.4 MCH 32.7 MCHC 35.0 RDW 12.8 Plt Count 209 MPV 8.6 L Immature Gran % (Auto) 0.3 Neut % (Auto) 62.8 Lymph % (Auto) 20.8 [place] % (Auto) 11.4 H Eos % (Auto) 4.2 H Baso % (Auto) 0.5 Lymph # (Auto) 1.6 [place] # (Auto) 0.9 Eos # (Auto) 0.3 Baso # (Auto) 0.0 Abs Immat Gran (auto) 0.02 Absolute Neuts (auto) 4.9 Absolute Nucleated RBC 0.000 Nucleated RBC % (auto) 0.0 PT 11.9 INR 1.0 Hold Blue Top SEE NOTE Anion Gap 13 Creatinine 1.77 H Estim Creat Clear Calc 36.3 Estimated GFR 38 Random Glucose 245 H D Calcium 8.8 Troponin I High Sens COVID-19 (JOSR) COVID-19 Clin Com 03/09/21 03/09/21 03/09/21 19:07 22:16 22:53 Hct MCV MCH MCHC RDW Plt Count MPV Immature Gran % (Auto) Neut % (Auto) Lymph % (Auto) [place] % (Auto) Eos % (Auto) Baso % (Auto) Lymph # (Auto) [place] # (Auto) Eos # (Auto) Baso # (Auto) Abs Immat Gran (auto) Absolute Neuts (auto) Absolute Nucleated RBC Nucleated RBC % (auto) PT INR Hold Blue Top Anion Gap Creatinine Estim Creat Clear Calc Estimated GFR Random Glucose Calcium Troponin I High Sens 20.9 23.1 COVID-19 (JOSR) Negative COVID-19 Clin Com See Note Imaging Radiologist's Impressions: Impressions Head CT 03/09/21 22:54 IMPRESSION: 1. Expected evolution of previously seen right frontal parietal lobe infarcts 2. No new territorial infarct or intracranial hemorrhage. 3. Stable known pituitary macroadenoma.
[2021-03-10 01:28] LABS: Glucose, Whole Blood 89 mg/dL (60-115)
[2021-03-10] MEDS: Labetalol HCL 100 MG/20 ML VIAL 20 MG IVPUSH (01:35)
[2021-03-10] MEDS: NIFEdipine ER 90 MG TAB.ER.24 PO ×2 (02:17→20:59)
[2021-03-10] MEDS: Melatonin 3 MG TABLET 6 MG PO (02:17)
--- NOTE | 2021-03-10 04:44 | PC.NURSE ---
ADMIT TO 260-1 FROM ER...ALERT..ORIENTED X3...SPEECH CLEAR...REMAINS WITH OLD LEFT HEIPARESIS TO LEFT ARM...DRINKING H20 W/O DIFFICULTY...DENIES DIZZYNESS IA VISUAL DEFECTS...NSR OLD RBBB...HR 60'S-70'S...BP 201/93 ON ADMISSION....ICU PA PRESENT...LABETOLOL 20MG IV X1 GIVEN...PATIENT REPORTED LAST DOSE OF PROCARDIA ER 90MG PO DAILY WAS TAKEN MONDAY PM 03/08...PROCARDIA ER 90MG PO GIVEN PER PA/DEC...BP IMPROVING OVERNIGHT...SERIAL NEURO CHECKS STABLE OVERNIGHT...DENIES/OFFERS NO COMPLAINTS...DENIES HEADACHE...PATIENT HAS GLUCOSE MONITOR ATTACHED TO LEFT LOWER ABDOMEN...STATES ONLY A MONITOR AND THAT IT TRANSMITS GLUCOSE READINGS TO HIS CELL-PHONE..NAPPING OVERNIGHT
[2021-03-10 07:10] LABS: Glucose, Whole Blood 81 mg/dL (60-115)
[2021-03-10 08:29] LABS: MANUAL DIFF FLAG NO
[2021-03-10 08:31] LABS: Basophils Percent Auto 0.3 % (0-2); Eosinophils Absolute Auto 0.3 X10*3/uL (0.0-0.4); Eosinophils Percent Auto 3.7 % (0-4); Hematocrit 38.3 % (42-52); Hemoglobin 13.4 g/dl (14.0-18.0); Imm Gran Abs Auto 0.01 X10*3/uL (0.00-0.03); Imm Gran Pct Auto 0.1 % (0.0-0.4); Lymphocytes Absolute Auto 1.7 X10*3/uL (1.2-4.9); Lymphocytes Percent Auto 19.4 % (20-40); Mean Corpuscular Hemoglobin 32.6 pg (27.0-33.0); Mean Corpuscular Volume 93.2 fL (80-98); Mean Platelet Volume 8.4 fL (9.4-12.4); Monocytes Absolute Auto 0.9 X10*3/uL (0.1-1.2); Monocytes Percent Auto 10.1 % (2-11); Neutrophils Absolute Auto 5.9 X10*3/uL (2.0-8.3); Neutrophils Percent Auto 66.4 % (45-73); Platelet Count 211 X10*3/uL (160-400); Red Blood Count 4.11 X10*6/uL (4.60-5.80); Red Cell Distribution Width 12.7 % (11.0-16.0); White Blood Count 8.9 X10*3/uL (4.8-10.8)
--- NOTE | 2021-03-10 08:32 | PC.NURSE ---
Addendum entered by Antione Head RN 03/10/21 17:31: coreg 12.5mg given earlier per MD, Stemp as BP 170/80 Original Note: Pt A&Ox3, denies pain, dizziness, or SOB, left arm/hand baseline weakness present from previous stroke. Pt is unable to complete dorsiflexion with right foot, he states this has been going on for 1.5 weeks. Rest of neuro exam WNL. SBP 130s/DBP 50-60 without morning cardiac meds being given, NSR w/ RBBB 60s. Pharmacist in to speak to patient. Pt eating breakfast at this time. Bed locked and in lowest position, call [place] in reach.
[2021-03-10 08:58] LABS: Anion Gap 13 (12-20); Blood Urea Nitrogen 28 mg/dL (9-16); Calcium 9.4 mg/dL (8.4-10.2); Carbon Dioxide 26 mmol/L (22-29); Chloride 104 mmol/L (96-108); Creatinine Clr Calc Pharmacy 43.5; Estimated Glomerular Filt Rate 47; Glucose Random 80 mg/dL (60-115); Potassium 3.3 mmol/L (3.3-5.1); Sodium 140 mmol/L (135-145)
[2021-03-10] MEDS: Emtricitabine/Tenofov Alafenam TABLET 1 TAB PO (09:03)
[2021-03-10] MEDS: Cholecalciferol (Vitamin D3) 25 MCG TABLET 50 MCG PO (09:03)
[2021-03-10] MEDS: Ezetimibe 10 MG TABLET PO (09:03)
[2021-03-10] MEDS: Escitalopram Oxalate 10 MG TABLET PO (09:04)
[2021-03-10] MEDS: carvediloL 12.5 MG TABLET PO ×2 (09:04→17:30)
[2021-03-10] MEDS: Aspirin Enteric Coated 81 MG TABLET.DR PO (09:04)
[2021-03-10] MEDS: Dorzolamide/Timolo 2.23%/0.68% 10 ML DRBTL 1 DROP EYE-BOTH ×2 (09:22→21:02)
[2021-03-10 11:14] LABS: Glucose, Whole Blood 156 mg/dL (60-115)
[2021-03-10] MEDS: Ticagrelor 90 MG TABLET PO ×2 (11:53→20:59)
--- NOTE | 2021-03-10 12:51 | MHC.CM.PN ---
Met with pt and his HCP/sister Margoth to discuss d/c planning. Pt has left sided weakness/ hemipalegia r/t past hx of CVA. He has been attending [facility] out[facility] PT with Margoth providing transportation. He uses a cane but feels his mobility may be more imparied at this visit. Pt has been to [facility] following his CVA in 12/2020 and would return if absolutely needed but would prefer home. Referal made to NA and will await PT eval to ensure no worsening Left sided deficits. Requested Margoth bring HCP in for EMR
--- NOTE | 2021-03-10 12:57 | P.PNCC_ITS ---
Subjective Subjective Date of Service: 03/10/21 Interval History: Mr. Chisholm was admitted to ICU early this morning for monitoring and management of hypertensive urgency. The patient is a 70-year-old male with history of difficult to control hypertension. In December of this year, the patient presented with hypertensive crisis and an acute ischemic stroke with left upper extrem weakness. He was not given tPA. He was sent to [facility] were ultimately he underwent of a right carotid endarterectomy. The patient?s current antihypertensive regimen consists of Coreg 12.5 mg bid and nifedipine ER 90 mg qhs. The patient also has a h/o coronary artery disease post stent, pituitary microadenoma, vitamin-D deficiency, CKD (baseline creat about 1.4-1.6), and type 1 diabetes, for which chrissie valdez wears a monitor that connects to his cell phone to indicate when his sugar goes > 200 or < 70. HISTORY OF PRESENT ILLNESS: At home yesterday evening, when he took his blood pressure, the systolic blood pressure was above 200 and diastolic was above 100. The patient was concerned. It was too early to take his nifedipine, so he came to the emergency room at about 8pm. There was some question about whether the patient was experiencing any symptoms are not -- only dizziness, no other sx. In the ED, initial BP was 215/98; highest syst BP was 232, DBP 103. He was given amlodipine and one dose 20mg labetolol. BP dropped to 150/60, but came back up to 200s. BUN/creat were 37/1.7. Head CT was neg. The patient was admitted to the ICU for further monitoring and management. On arrival to the ICU, blood pressure was 201/93. The patient was given his dose of nifedipine, and blood pressure subsequently dropped from there to the 170s, and then 150s, and then 120s. This morning, the patient is fully awake and oriented and feeling his usual self. He looks entirely well. Heart rate is high 60s, sinus rhythm. Blood pressure is running about 130-150/60-70s. He is breathing with a sat in the high 90s on room air. Neuro exam shows left upper extrem weakness (about 3/5 at the shoulder; barely able to move his left hand at all), which he says is improved since his stroke. The patient says that over the last couple of weeks, he?s also developed weakness in his right foot. He had a head CT on February 19 which showed nothing new. LABORATORY DATA: As below. Notably, BUN and creatinine are down to 28/1.4. IMPRESSION: 1. Hypertensive urgency. Symptomatically improved, both from a [employer] [place] point of view, and his MALLY. I saw the patient with Dr. Edge this morning. The patient needs a workup for renovascular disease. 2. Acute on chronic kidney injury. Improved with better control of his blood pressure. 3. Status post right CVA. Status post right carotid endarterectomy. 4. Coronary artery disease, status post stent. Continue home meds, including Brilinta. 5. Diabetes. I put him on Lantus 45 units qAM, along with sliding scale insulin. Stable for transfer to regular room. Will sign out to hospitalists. Time (including extensive discuss with [place], extensive d/w patient and family, extensive d/w Dr. Edge, and d/w neuro): 90+ min ([id number]) Critical Care Time (minutes): 0 Physical Exam Vital Signs: Vital Signs: Last Vital Signs Temp 98.5 F 03/10/21 12:00 Pulse 69 03/10/21 12:00 Resp 12 03/10/21 12:00 BP 149/74 H 03/10/21 12:00 Pulse Ox 98 03/10/21 12:00 Body Mass Index 21.9 Objective Data Labs CBC & Chem 7: 03/11/21 05:23 03/11/21 05:23 Labs: Laboratory Results - last 24 hr 03/09/21 03/09/21 03/09/21 19:07 19:07 19:07 WBC 7.8 RBC 3.76 L Hgb 12.3 L Hct 35.1 L MCV 93.4 MCH 32.7 MCHC 35.0 RDW 12.8 Plt Count 209 MPV 8.6 L Immature Gran % (Auto) 0.3 Neut % (Auto) 62.8 Lymph % (Auto) 20.8 [place] % (Auto) 11.4 H Eos % (Auto) 4.2 H Baso % (Auto) 0.5 Lymph # (Auto) 1.6 [place] # (Auto) 0.9 Eos # (Auto) 0.3 Baso # (Auto) 0.0 Abs Immat Gran (auto) 0.02 Absolute Neuts (auto) 4.9 Absolute Nucleated RBC 0.000 Nucleated RBC % (auto) 0.0 PT 11.9 INR 1.0 Hold Blue Top SEE NOTE Sodium 137 Potassium 3.6 Chloride 101 Carbon Dioxide 27 Anion Gap 13 BUN 37 H Creatinine 1.77 H Estim Creat Clear Calc 36.3 Estimated GFR 38 POC Glucose Random Glucose 245 H D Calcium 8.8 Troponin I High Sens COVID-19 (JOSR) COVID-[facility] 03/09/21 03/09/21 03/09/21 19:07 22:16 22:53 WBC RBC Hgb Hct MCV MCH MCHC RDW Plt Count MPV Immature Gran % (Auto) Neut % (Auto) Lymph % (Auto) [place] % (Auto) Eos % (Auto) Baso % (Auto) Lymph # (Auto) [place] # (Auto) Eos # (Auto) Baso # (Auto) Abs Immat Gran (auto) Absolute Neuts (auto) Absolute Nucleated RBC Nucleated RBC % (auto) PT INR Hold Blue Top Sodium Potassium Chloride Carbon Dioxide Anion Gap BUN Creatinine Estim Creat Clear Calc Estimated GFR POC Glucose Random Glucose Calcium Troponin I High Sens 20.9 23.1 COVID-19 (JOSR) Negative [employer] See Note 03/10/21 03/10/21 03/10/21 00:58 07:04 08:19 WBC 8.9 RBC 4.11 L Hgb 13.4 L Hct 38.3 L MCV 93.2 MCH 32.6 MCHC 35.0 RDW 12.7 Plt Count 211 MPV 8.4 L Immature Gran % (Auto) 0.1 Neut % (Auto) 66.4 Lymph % (Auto) 19.4 L [place] % (Auto) 10.1 Eos % (Auto) 3.7 Baso % (Auto) 0.3 Lymph # (Auto) 1.7 [place] # (Auto) 0.9 Eos # (Auto) 0.3 Baso # (Auto) 0.0 Abs Immat Gran (auto) 0.01 Absolute Neuts (auto) 5.9 Absolute Nucleated RBC 0.000 Nucleated RBC % (auto) 0.0 PT INR Hold Blue Top Sodium Potassium Chloride Carbon Dioxide Anion Gap BUN Creatinine Estim Creat Clear Calc Estimated GFR POC Glucose 89 81 Random Glucose Calcium Troponin I High Sens COVID-19 (JOSR) COVID-[facility] 03/10/21 03/10/21 08:19 11:10 WBC RBC Hgb Hct MCV MCH MCHC RDW Plt Count MPV Immature Gran % (Auto) Neut % (Auto) Lymph % (Auto) [place] % (Auto) Eos % (Auto) Baso % (Auto) Lymph # (Auto) [place] # (Auto) Eos # (Auto) Baso # (Auto) Abs Immat Gran (auto) Absolute Neuts (auto) Absolute Nucleated RBC Nucleated RBC % (auto) PT INR Hold Blue Top Sodium 140 Potassium 3.3 Chloride 104 Carbon Dioxide 26 Anion Gap 13 BUN 28 H Creatinine 1.48 H Estim Creat Clear Calc 43.5 Estimated GFR 47 POC Glucose 156 H Random Glucose 80 D Calcium 9.4 D Troponin I High Sens COVID-19 (JOSR) COVID-19 Clin Com
--- NOTE | 2021-03-10 14:32 | P.CNNE_ITS ---
History of Present Illness Data of Consult Service Date: 03/10/21 Primary Care Provider: Ryder Lou MD 70 years old man with underlying history of a pituitary macroadenoma, history of right carotid endarterectomy in 2011, coronary artery disease status post stenting, hypertension, insulin-dependent diabetes, and multiple bilateral embolic looking cerebral infarctions. At this time he was admitted in ICU with hypertensive emergency. He complained that his right foot was weak for couple of weeks and this consultation was requested. There was no pain that he described. There was no obvious trigger for weakness. [facility] Past Medical History Medical History CAD (coronary artery disease) CVA (cerebral vascular accident) Encounter for loop recorder check HLD (hyperlipidemia) HTN (hypertension) 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 Surgical History Surgical History History of carotid endarterectomy History of heart artery stent Social History Social History Household Members: None Housing: House Alcohol intake: never Smoking Status: Never smoker Packs Per Day: 1 Cigarettes Per Day: 20.0 Years Smoked: 30 Currently Displaying Signs/Symptoms of Drug Intoxication Withdrawal: No Advance Directives: No Advance Directives Information Provided: No Do you have thoughts of harming others: None Do you have a plan to hurt others: No Plan service: No Current occupational status: unemployed and retired Meds Allergies Allergy/AdvReac Type Severity Reaction Status Date / Time No Known Allergies Allergy Verified 03/09/21 18:25 Active Medications: Current Medications Generic Name Dose Route Start Last Admin Trade Name Freq PRN Reason Stop Dose Admin Aspirin 81 mg 03/10/21 09:00 03/10/21 09:04 Aspirin Enteric Coated 81 Mg Tablet. PO 81 mg DAILY [facility]ILLY Administration Atorvastatin Calcium 80 mg 03/10/21 21:00 Atorvastatin Calcium 80 Mg Tablet PO BEDTIME [facility] Baclofen 5 mg 03/10/21 15:00 Baclofen 10 Mg Tablet PO TID [facility] Carvedilol 12.5 mg 03/10/21 09:00 03/10/21 09:04 Carvedilol 12.5 Mg Tablet PO 12.5 mg BID [facility] Administration Protocol Dorzolamide/Timolol 1 drop 03/10/21 09:00 03/10/21 09:22 Dorzolamide/Timolo 2.23%/0.68% 10 Ml Drbtl EYE-BOTH 1 drop BID [facility] Administration Ezetimibe 10 mg 03/10/21 09:00 03/10/21 09:03 Ezetimibe 10 Mg Tablet PO 10 mg DAILY [facility] Administration Emtricitabine/Tenofovir Alafenamide 1 tab 03/10/21 09:00 03/10/21 09:03 Emtricitabine/Tenofov Alafenam Tablet PO 1 tab DAILY [facility] Administration Escitalopram Oxalate 10 mg 03/10/21 09:00 03/10/21 09:04 Escitalopram Oxalate 10 Mg Tablet PO 10 mg DAILY [facility] Administration Insulin Glargine 45 unit 03/11/21 09:00 Insulin Glargine,Hum.Rec.Anlog 100 Unit/Ml 10 Ml Vial SUBCUT DAILY [facility] Insulin Human Lispro 0 unit 03/10/21 16:30 Insulin Lispro 100 Unit/Ml 3 Ml Vial SUBCUT QIDACHS [facility] Protocol Latanoprost 1 drop 03/10/21 21:00 Latanoprost 0.005 % Ophth Sandy 2.5 Ml Drops EYE-BOTH BEDTIME [facility] Melatonin 3 mg 03/10/21 21:00 Melatonin 3 Mg Tablet PO BEDTIME [facility] Nifedipine 90 mg 03/10/21 21:00 Nifedipine Er 90 Mg Tab.Er.24 PO BEDTIME [facility] Protocol Nitroglycerin 0.4 mg 03/10/21 02:17 Nitroglycerin 0.4 Mg Tab.Subl SUBLINGUAL Q5M PRN Chest Pain Ticagrelor 90 mg 03/10/21 12:00 03/10/21 11:53 Ticagrelor 90 Mg Tablet PO 90 mg BID [facility] Administration Vitamin D 50 mcg 03/10/21 09:00 03/10/21 09:03 Cholecalciferol (Vitamin D3) 25 Mcg Tablet PO 50 mcg DAILY [facility] Administration Home Medications Medication Instructions Recorded Confirmed Last Taken Type aspirin 81 mg tablet,delayed 81 mg PO DAILY 09/10/20 03/10/21 03/08/21 History release cholecalciferol (vitamin D3) 50 50 mcg PO DAILY 09/10/20 03/10/21 03/09/21 History mcg (2,000 unit) capsule emtricitabine 200 mg-tenofovir 1 tab PO DAILY 09/10/20 03/10/21 03/09/21 History alafenamide fumarate 25 mg tablet latanoprost 0.005 % eye drops 1 drp OPHTHALMIC (EYE) BEDTIME 09/10/20 03/10/21 03/08/21 History nitroglycerin 0.4 mg sublingual 0.4 mg SUBLINGUAL Q5M PRN 09/10/20 03/10/21 02/18/21 History tablet escitalopram oxalate 10 mg tablet 10 mg PO DAILY 12/31/20 03/10/21 03/09/21 History insulin aspart U-100 100 unit/mL 0 unit SUBCUT QIDACHS ml 12/31/20 03/10/21 03/09/21 History (3 mL) subcutaneous pen dorzolamide-timolol 1 drp OPHTHALMIC (EYE) BID 01/12/21 03/10/21 03/09/21 History baclofen 5 mg PO TID 02/12/21 03/10/21 03/09/21 History Tresiba FlexTouch U-100 45 unit SUBCUT DAILY 02/19/21 03/10/21 03/08/21 History albuterol sulfate 2 puff INHALATION Q4H PRN 02/19/21 03/10/21 03/08/21 History carvedilol 12.5 mg PO BID 02/19/21 03/10/21 03/09/21 History melatonin 5 mg PO BEDTIME 02/19/21 03/10/21 03/08/21 History nifedipine 90 mg PO DAILY 02/19/21 03/10/21 03/08/21 History ticagrelor [Brilinta] 1 tab PO BID 03/10/21 03/10/21 Unknown History Physical Exam Vital Signs: Vital Signs: Last Vital Signs Temp 98.5 F 03/10/21 12:00 Pulse 69 03/10/21 14:00 Resp 13 03/10/21 14:00 BP 158/72 H 03/10/21 14:00 Pulse Ox 96 03/10/21 14:00 Body Mass Index 21.9 He was alert awake with normal spontaneity of speech fluency comprehension and affect. There was mild diffuse muscle atrophy in feet. Right foot extensor hallucis longus, dorsiflexion at ankle, and eversion of ankle were weak compared to left. Plantar flexion and inversion were strong. Joint position sensation was intact. Results Labs CBC & Chem 7: 03/10/21 08:19 03/10/21 08:19 Labs: Short CBC 03/09/21 03/10/21 Range/Units 19:07 08:19 WBC 7.8 8.9 (4.8-10.8) X10*3/uL Hgb 12.3 L 13.4 L (14.0-18.0) g/dl Hct 35.1 L 38.3 L (42-52) % Plt Count 209 211 (160-400) X10*3/uL [facility] 03/09/21 03/10/21 19:07 08:19 Sodium 137 140 Potassium 3.6 3.3 Chloride 101 104 Carbon Dioxide 27 26 BUN 37 H 28 H Creatinine 1.77 H 1.48 H Calcium 8.8 9.[address] D His noncontrast head CT revealed mild chronic bilateral embolic looking ischemic infarctions and mild cerebral atrophy. Assessment and Plan (1) Peroneal neuropathy: Status: Acute A right peroneal neuropathy at knee causing right foot weakness and likely foot drop. He was educated about this condition. At this time I recommend physical therapy and ankle-foot brace. He was not interested in brace at this time but he was educated that this was to avoid any falls. He can follow-up in our office for further investigations including EMG nerve conduction study. Procedures Date of Service Date of Service: 03/10/21
[2021-03-10] MEDS: Baclofen 10 MG TABLET 5 MG PO ×2 (14:56→20:59)
--- NOTE | 2021-03-10 15:52 | PM.CNNEP ---
History of Present Illness Reason for Consult Consult date: 03/10/21 Chief Complaint Chief complaint: HTN Emergency History of Present Illness Narrative: 70-year-old male with underlying history of recent ischemic stroke on 01/12/2021 who recently underwent right carotid endarterectomy, with H/O multiple hypertensive crisis presented with lightheadedness and blood pressure elevation of 240/130 a home despite of the intake of his home medications. He has underlying history of coronary disease post stent, hypertension, pituitary macroadenoma, vitamin-D deficiency, type 1 diabetes. His Creatinine was 1.77 (recent baseline 1.[address] head showed no intracranial hemorrhage features or large occlusive stroke . He was admitted for further management. Nephrology has been consulted to assist in his clinical care during his current hospital stay. Review of Systems Review of Systems Yes all other systems are reviewed and are negative PMFSH Past Medical History Medical History CAD (coronary artery disease) CVA (cerebral vascular accident) Encounter for loop recorder check HLD (hyperlipidemia) HTN (hypertension) 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 Surgical History Surgical History History of carotid endarterectomy History of heart artery stent Social History Social History Household Members: None Housing: House Alcohol intake: never Smoking Status: Never smoker Packs Per Day: 1 Cigarettes Per Day: 20.0 Years Smoked: 30 Currently Displaying Signs/Symptoms of Drug Intoxication Withdrawal: No Advance Directives: No Advance Directives Information Provided: No Do you have thoughts of harming others: None Do you have a plan to hurt others: No Plan service: No Current occupational status: unemployed and retired Meds Allergies Allergy/AdvReac Type Severity Reaction Status Date / Time No Known Allergies Allergy Verified 03/09/21 18:25 Active Medications: Current Medications Generic Name Dose Route Start Last Admin Trade Name Freq PRN Reason Stop Dose Admin Aspirin 81 mg 03/10/21 09:00 03/10/21 09:04 Aspirin Enteric Coated 81 Mg Tablet.Dr PO 81 mg DAILY [facility] Administration Atorvastatin Calcium 80 mg 03/10/21 21:00 Atorvastatin Calcium 80 Mg Tablet PO BEDTIME [facility] Baclofen 5 mg 03/10/21 15:00 03/10/21 14:56 Baclofen 10 Mg Tablet PO 5 mg TID [facility] Administration Carvedilol 12.5 mg 03/10/21 09:00 03/10/21 09:04 Carvedilol 12.5 Mg Tablet PO 12.5 mg BID [facility] Administration Protocol Dorzolamide/Timolol 1 drop 03/10/21 09:00 03/10/21 09:22 Dorzolamide/Timolo 2.23%/0.68% 10 Ml Drbtl EYE-BOTH 1 drop BID [facility] Administration Ezetimibe 10 mg 03/10/21 09:00 03/10/21 09:03 Ezetimibe 10 Mg Tablet PO 10 mg DAILY [facility] Administration Emtricitabine/Tenofovir Alafenamide 1 tab 03/10/21 09:00 03/10/21 09:03 Emtricitabine/Tenofov Alafenam Tablet PO 1 tab DAILY [facility] Administration Escitalopram Oxalate 10 mg 03/10/21 09:00 03/10/21 09:04 Escitalopram Oxalate 10 Mg Tablet PO 10 mg DAILY [facility] Administration Insulin Glargine 45 unit 03/11/21 09:00 Insulin Glargine,Hum.Rec.Anlog 100 Unit/Ml 10 Ml Vial SUBCUT DAILY [facility] Insulin Human Lispro 0 unit 03/10/21 16:30 Insulin Lispro 100 Unit/Ml 3 Ml Vial SUBCUT QIDACHS [facility] Protocol Latanoprost 1 drop 03/10/21 21:00 Latanoprost 0.005 % Ophth Sandy 2.5 Ml Drops EYE-BOTH BEDTIME [facility] Melatonin 3 mg 03/10/21 21:00 Melatonin 3 Mg Tablet PO BEDTIME [facility] Nifedipine 90 mg 03/10/21 21:00 Nifedipine Er 90 Mg Tab.Er.24 PO BEDTIME [facility] Protocol Nitroglycerin 0.4 mg 03/10/21 02:17 Nitroglycerin 0.4 Mg Tab.Subl SUBLINGUAL Q5M PRN Chest Pain Ticagrelor 90 mg 03/10/21 12:00 03/10/21 11:53 Ticagrelor 90 Mg Tablet PO 90 mg BID [facility] Administration Vitamin D 50 mcg 03/10/21 09:00 03/10/21 09:03 Cholecalciferol (Vitamin D3) 25 Mcg Tablet PO 50 mcg DAILY [facility] Administration Home Medications Medication Instructions Recorded Confirmed Last Taken Type aspirin 81 mg tablet,delayed 81 mg PO DAILY 09/10/20 03/10/21 03/08/21 History release cholecalciferol (vitamin D3) 50 50 mcg PO DAILY 09/10/20 03/10/21 03/09/21 History mcg (2,000 unit) capsule emtricitabine 200 mg-tenofovir 1 tab PO DAILY 09/10/20 03/10/21 03/09/21 History alafenamide fumarate 25 mg tablet latanoprost 0.005 % eye drops 1 drp OPHTHALMIC (EYE) BEDTIME 09/10/20 03/10/21 03/08/21 History nitroglycerin 0.4 mg sublingual 0.4 mg SUBLINGUAL Q5M PRN 09/10/20 03/10/21 02/18/21 History tablet escitalopram oxalate 10 mg tablet 10 mg PO DAILY 12/31/20 03/10/21 03/09/21 History insulin aspart U-100 100 unit/mL 0 unit SUBCUT QIDACHS ml 12/31/20 03/10/21 03/09/21 History (3 mL) subcutaneous pen dorzolamide-timolol 1 drp OPHTHALMIC (EYE) BID 01/12/21 03/10/21 03/09/21 History baclofen 5 mg PO TID 02/12/21 03/10/21 03/09/21 History Tresiba FlexTouch U-100 45 unit SUBCUT DAILY 02/19/21 03/10/21 03/08/21 History albuterol sulfate 2 puff INHALATION Q4H PRN 02/19/21 03/10/21 03/08/21 History carvedilol 12.5 mg PO BID 02/19/21 03/10/21 03/09/21 History melatonin 5 mg PO BEDTIME 02/19/21 03/10/21 03/08/21 History nifedipine 90 mg PO DAILY 02/19/21 03/10/21 03/08/21 History ticagrelor [Brilinta] 1 tab PO BID 03/10/21 03/10/21 Unknown History Physical Exam Vital Signs: Last Vital Signs Temp 98.5 F 03/10/21 12:00 Pulse 72 03/10/21 15:00 Resp 15 03/10/21 15:00 BP 157/78 H 03/10/21 15:00 Pulse Ox 97 03/10/21 15:00 Body Mass Index 21.9 Const General: no acute distress Orientation/consciousness: patient oriented x3 Neck Other: CEA scar + Resp Auscultation: diminished lung sounds Cardio Rate: regular rate GI Palpation (GI): Soft to palpation Neuro General: patient oriented x3 and moves all extremities Results Lab Results Result Diagrams: 03/10/21 08:19 03/10/21 08:19 Lab results: Chemistry 03/09/21 03/10/21 19:07 08:19 Sodium 137 140 Potassium 3.6 3.3 Carbon Dioxide 27 26 BUN 37 H 28 H Creatinine 1.77 H 1.48 H Calcium 8.8 9.4 D Hematology 03/09/21 03/10/21 19:07 08:19 WBC 7.8 8.9 Hgb 12.3 L 13.4 L Plt Count 209 211 Assessment and Plan (1) Hypertension: Qualifiers: Hypertension type: essential hypertension Qualified Code(s): I10 - Essential (primary) hypertension Status: Acute Likely radha vascular; BP currently well controlled Low sodium diet; Needs 24 hour BPM as outpatient Likely will benefit from ACEI and Chlorthalidone which could be initiated as outpatient (2) CKD (chronic kidney disease) stage 3, GFR 30-59 ml/min: Problem details: 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 Continue rest of current supportive care Status: Acute Procedures Date of Service Date of Service: 03/10/21
[2021-03-10 16:19] LABS: Glucose, Whole Blood 194 mg/dL (60-115)
[2021-03-10] MEDS: Insulin Lispro 100 UNIT/ML 3 ML VIAL SUBCUT ×2 (16:24→20:58)
[2021-03-10 20:52] LABS: Glucose, Whole Blood 216 mg/dL (60-115)
[2021-03-10] MEDS: Melatonin 3 MG TABLET PO (20:59)
[2021-03-10] MEDS: Atorvastatin Calcium 80 MG TABLET PO (20:59)
[2021-03-10] MEDS: Latanoprost 0.005 % Ophth Sol 2.5 ML DROPS 1 DROP EYE-BOTH (21:02)
[2021-03-11] VITALS (16 sets, daily range): BP systolic 132–182; BP diastolic 64–88; PULSE 62–75; RESP 12–19; TEMP 36.2–36.8; O2SAT 96–99; BMI 21.7
[2021-03-11 05:35] LABS: MANUAL DIFF FLAG NO
[2021-03-11 05:39] LABS: Basophils Percent Auto 0.5 % (0-2); Eosinophils Absolute Auto 0.4 X10*3/uL (0.0-0.4); Eosinophils Percent Auto 4.1 % (0-4); Hematocrit 36.7 % (42-52); Hemoglobin 12.8 g/dl (14.0-18.0); Imm Gran Abs Auto 0.03 X10*3/uL (0.00-0.03); Imm Gran Pct Auto 0.4 % (0.0-0.4); Lymphocytes Absolute Auto 1.5 X10*3/uL (1.2-4.9); Lymphocytes Percent Auto 17.3 % (20-40); Mean Corpuscular HGB Conc 34.9 g/dl (31.0-36.0); Mean Corpuscular Volume 94.6 fL (80-98); Mean Platelet Volume 8.7 fL (9.4-12.4); Neutrophils Absolute Auto 5.6 X10*3/uL (2.0-8.3); Neutrophils Percent Auto 65.7 % (45-73); Platelet Count 208 X10*3/uL (160-400); Red Blood Count 3.88 X10*6/uL (4.60-5.80); Red Cell Distribution Width 12.7 % (11.0-16.0); White Blood Count 8.5 X10*3/uL (4.8-10.8)
[2021-03-11 06:11] LABS: Alanine Aminotransferase 21 U/L (0-40); Albumin Level 3.8 g/dL (3.5-5.0); Alkaline Phosphatase 87 U/L (39-117); Anion Gap 12 (12-20); Aspartate Amino Transferase 14 U/L (5-37); Bilirubin Total 0.5 mg/dL (0.0-1.0); Blood Urea Nitrogen 32 mg/dL (9-16); Carbon Dioxide 27 mmol/L (22-29); Chloride 104 mmol/L (96-108); Creatinine Clr Calc Pharmacy 37.4; Estimated Glomerular Filt Rate 40; Glucose Random 206 mg/dL (60-115); Potassium 3.7 mmol/L (3.3-5.1); Sodium 139 mmol/L (135-145); Total Protein 6.1 g/dL (6.5-8.0)
[2021-03-11 07:26] LABS: Glucose, Whole Blood 190 mg/dL (60-115)
[2021-03-11] MEDS: Insulin Lispro 100 UNIT/ML 3 ML VIAL SUBCUT ×2 (08:34→20:53)
[2021-03-11] MEDS: Emtricitabine/Tenofov Alafenam TABLET 1 TAB PO (08:34)
[2021-03-11] MEDS: carvediloL 12.5 MG TABLET PO ×2 (08:34→20:52)
[2021-03-11] MEDS: Insulin Glargine,Hum.rec.anlog 100 UNIT/ML 10 ML VIAL 45 UNIT SUBCUT (08:34)
[2021-03-11] MEDS: Ticagrelor 90 MG TABLET PO ×2 (08:34→20:52)
[2021-03-11] MEDS: Baclofen 10 MG TABLET 5 MG PO ×3 (08:35→20:52)
[2021-03-11] MEDS: Aspirin Enteric Coated 81 MG TABLET.DR PO (08:35)
[2021-03-11] MEDS: Ezetimibe 10 MG TABLET PO (08:35)
[2021-03-11] MEDS: Cholecalciferol (Vitamin D3) 25 MCG TABLET 50 MCG PO (08:35)
[2021-03-11] MEDS: Escitalopram Oxalate 10 MG TABLET PO (08:35)
[2021-03-11] MEDS: Dorzolamide/Timolo 2.23%/0.68% 10 ML DRBTL 1 DROP EYE-BOTH ×2 (08:41→20:57)
--- NOTE | 2021-03-11 09:59 | PM.PNNEP ---
Subjective Subjective Date of Service: 03/11/21 Interval history: Seen AM. Events noted. All recent data reviewed Physical Exam Vital Signs: Vital Signs: Last Vital Signs Temp 97.8 F 03/11/21 07:31 Pulse 73 03/11/21 08:34 Resp 12 03/11/21 08:00 BP 161/76 H 03/11/21 08:34 Pulse Ox 97 03/11/21 08:00 Body Mass Index 21.7 Const: General: no acute distress Orientation/consciousness: patient oriented x3 Eyes: EOM: EOMs intact bilaterally Neck: Neck: Yes supple Resp: Auscultation: diminished lung sounds Cardio: Jugular venous distension: no JVD GI: Palpation (GI): Soft to palpation Neuro: General: patient oriented x3 and moves all extremities Objective Data Labs CBC & Chem 7: 03/11/21 05:23 03/11/21 05:23 Labs: Laboratory Results - last 24 hr 03/10/21 03/10/21 03/10/21 11:10 16:15 20:47 WBC RBC Hgb Hct MCV MCH MCHC RDW Plt Count MPV Immature Gran % (Auto) Neut % (Auto) Lymph % (Auto) [place] % (Auto) Eos % (Auto) Baso % (Auto) Lymph # (Auto) [place] # (Auto) Eos # (Auto) Baso # (Auto) Abs Immat Gran (auto) Absolute Neuts (auto) Absolute Nucleated RBC Nucleated RBC % (auto) Sodium Potassium Chloride Carbon Dioxide Anion Gap BUN Creatinine Estim Creat Clear Calc Estimated GFR POC Glucose 156 H 194 H 216 H Random Glucose Calcium Total Bilirubin AST ALT Alkaline Phosphatase Total Protein Albumin 03/11/21 03/11/21 03/11/21 05:23 05:23 07:14 WBC 8.5 RBC 3.88 L Hgb 12.8 L Hct 36.7 L MCV 94.6 MCH 33.0 MCHC 34.9 RDW 12.7 Plt Count 208 MPV 8.7 L Immature Gran % (Auto) 0.4 Neut % (Auto) 65.7 Lymph % (Auto) 17.3 L [place] % (Auto) 12.0 H Eos % (Auto) 4.1 H Baso % (Auto) 0.5 Lymph # (Auto) 1.5 [place] # (Auto) 1.0 Eos # (Auto) 0.4 Baso # (Auto) 0.0 Abs Immat Gran (auto) 0.03 Absolute Neuts (auto) 5.6 Absolute Nucleated RBC 0.000 Nucleated RBC % (auto) 0.0 Sodium 139 Potassium 3.7 Chloride 104 Carbon Dioxide 27 Anion Gap 12 BUN 32 H Creatinine 1.72 H Estim Creat Clear Calc 37.4 Estimated GFR 40 POC Glucose 190 H Random Glucose 206 H D Calcium 9.0 Total Bilirubin 0.5 AST 14 ALT 21 Alkaline Phosphatase 87 Total Protein 6.1 L Albumin 3.8 Assessment & Plan Assessment and plan (1) CKD (chronic kidney disease) stage 3, GFR 30-59 ml/min: Problem details: 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 Continue rest of current supportive care Status: Acute Time Spent With Patient Time: Total time spent is greater than 50% in coordination of care (as documented) at patient's floor/unit and/or counseling patient: Procedures Date of Service Date of Service: 03/11/21
--- NOTE | 2021-03-11 10:01 | HO.PM.IMPN ---
Subjective Subjective Date of Service: 03/11/21 Interval History: no dizziness or headache no chest pain Physical Exam Vital Signs: Vital Signs: Last Vital Signs Temp 97.8 F 03/11/21 07:31 Pulse 73 03/11/21 08:34 Resp 12 03/11/21 08:00 BP 161/76 H 03/11/21 08:34 Pulse Ox 97 03/11/21 08:00 Body Mass Index 21.7 Gen: in no acute distress HEENT: sclera anicteric, moist mucus membranes Neck: supple Lungs: clear to auscultation bilaterally Heart: regular rate and rhythm, no murmurs Abd: soft, non-tender, non-distended Ext: no edema Skin: warm/well-perfused Neuro: alert and oriented x3, LUE weakness s/p prior CVA Psych: appropriate affect Objective Data Current Medications Generic Name Dose Route Start Last Admin Trade Name Freq PRN Reason Stop Dose Admin Aspirin 81 mg 03/10/21 09:00 03/11/21 08:35 Aspirin Enteric Coated 81 Mg Tablet.Dr PO 81 mg DAILY [facility] Administration Atorvastatin Calcium 80 mg 03/10/21 21:00 03/10/21 20:59 Atorvastatin Calcium 80 Mg Tablet PO 80 mg BEDTIME [facility] Administration Baclofen 5 mg 03/10/21 15:00 03/11/21 08:35 Baclofen 10 Mg Tablet PO 5 mg TID [facility] Administration Carvedilol 12.5 mg 03/10/21 09:00 03/11/21 08:34 Carvedilol 12.5 Mg Tablet PO 12.5 mg BID [facility] Administration Protocol Dorzolamide/Timolol 1 drop 03/10/21 09:00 03/11/21 08:41 Dorzolamide/Timolo 2.23%/0.68% 10 Ml Drbtl EYE-BOTH 1 drop BID [facility] Administration Ezetimibe 10 mg 03/10/21 09:00 03/11/21 08:35 Ezetimibe 10 Mg Tablet PO 10 mg DAILY [facility] Administration Emtricitabine/Tenofovir Alafenamide 1 tab 03/10/21 09:00 03/11/21 08:34 Emtricitabine/Tenofov Alafenam Tablet PO 1 tab DAILY [facility] Administration Escitalopram Oxalate 10 mg 03/10/21 09:00 03/11/21 08:35 Escitalopram Oxalate 10 Mg Tablet PO 10 mg DAILY [facility] Administration Insulin Glargine 45 unit 03/11/21 09:00 03/11/21 08:34 Insulin Glargine,Hum.Rec.Anlog 100 Unit/Ml 10 Ml Vial SUBCUT 45 unit DAILY [facility] Administration Insulin Human Lispro 0 unit 03/10/21 16:30 03/11/21 08:34 Insulin Lispro 100 Unit/Ml 3 Ml Vial SUBCUT 2 unit QIDACHS [facility] Administration Protocol Latanoprost 1 drop 03/10/21 21:00 03/10/21 21:02 Latanoprost 0.005 % Ophth Sandy 2.5 Ml Drops EYE-BOTH 1 drop BEDTIME [facility] Administration Melatonin 3 mg 03/10/21 21:00 03/10/21 20:59 Melatonin 3 Mg Tablet PO 3 mg BEDTIME [facility] Administration Nifedipine 90 mg 03/10/21 21:00 03/10/21 20:59 Nifedipine Er 90 Mg Tab.Er.24 PO 90 mg BEDTIME [facility] Administration Protocol Nitroglycerin 0.4 mg 03/10/21 02:17 Nitroglycerin 0.4 Mg Tab.Subl SUBLINGUAL Q5M PRN Chest Pain Ticagrelor 90 mg 03/10/21 12:00 03/11/21 08:34 Ticagrelor 90 Mg Tablet PO 90 mg BID [facility] Administration Vitamin D 50 mcg 03/10/21 09:00 03/11/21 08:35 Cholecalciferol (Vitamin D3) 25 Mcg Tablet PO 50 mcg DAILY [facility] Administration Labs CBC & Chem 7: 03/11/21 05:23 03/11/21 05:23 Labs: Laboratory Results - last 24 hr 03/10/21 03/10/21 03/10/21 11:10 16:15 20:47 WBC RBC Hgb Hct MCV MCH MCHC RDW Plt Count MPV Immature Gran % (Auto) Neut % (Auto) Lymph % (Auto) [place] % (Auto) Eos % (Auto) Baso % (Auto) Lymph # (Auto) [place] # (Auto) Eos # (Auto) Baso # (Auto) Abs Immat Gran (auto) Absolute Neuts (auto) Absolute Nucleated RBC Nucleated RBC % (auto) Sodium Potassium Chloride Carbon Dioxide Anion Gap BUN Creatinine Estim Creat Clear Calc Estimated GFR POC Glucose 156 H 194 H 216 H Random Glucose Calcium Total Bilirubin AST ALT Alkaline Phosphatase Total Protein Albumin 03/11/21 03/11/2103/11/21 05:23 05:23 07:14 WBC 8.5 RBC 3.88 L Hgb 12.8 L Hct 36.7 L MCV 94.6 MCH 33.0 MCHC 34.9 RDW 12.7 Plt Count 208 MPV 8.7 L Immature Gran % (Auto) 0.4 Neut % (Auto) 65.7 Lymph % (Auto) 17.3 L [place] % (Auto) 12.0 H Eos % (Auto) 4.1 H Baso % (Auto) 0.5 Lymph # (Auto) 1.5 [place] # (Auto) 1.0 Eos # (Auto) 0.4 Baso # (Auto) 0.0 Abs Immat Gran (auto) 0.03 Absolute Neuts (auto) 5.6 Absolute Nucleated RBC 0.000 Nucleated RBC % (auto) 0.0 Sodium 139 Potassium 3.7 Chloride 104 Carbon Dioxide 27 Anion Gap 12 BUN 32 H Creatinine 1.72 H Estim Creat Clear Calc 37.4 Estimated GFR 40 POC Glucose 190 H Random Glucose 206 H D Calcium 9.0 Total Bilirubin 0.5 AST 14 ALT 21 Alkaline Phosphatase 87 Total Protein 6.1 L Albumin 3.8 Assessment and Plan (1) Hypertensive urgency: Status: Acute (2) CKD (chronic kidney disease) stage 3, GFR 30-59 ml/min: Problem details: 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 Continue rest of current supportive care Status: Acute Assessment and Plan: hospital d#2 70yo M with CKD3, hx CVA s/p CEA, CAD, HTN, DM1 admitted to ICU with hypertensive urgency, stepped down to [facility] on 1st day of hospitalization # HTN urgency - continue nifedipine + carvedilol; add spironolactone; check renal Dopplers; Nephrology following # CKD3 - SCr close to baseline ;avoid nephrotoxins # CAD # CVD - statin, ASA, ticagrelor # DM1, A1c 8.2 (09/23/20) - basal/bolus insulin # chronic HBV - continue FTC/TAF # VTE px - LMWH
[2021-03-11] MEDS: Spironolactone 25 MG TABLET PO (10:21)
[2021-03-11 11:17] LABS: Glucose, Whole Blood 228 mg/dL (60-115)
[2021-03-11] MEDS: Enoxaparin Sodium 40 MG/0.4 ML SYRINGE SUBCUT (11:52)
--- NOTE | 2021-03-11 14:13 | MHC.CM.PN ---
Met with pt to discuss d/c plans: Pt has passed PT and can safely return to home with outpt/home PT visists. Pt has been referred to [facility] and his sister, Margoth can transport him home.
[2021-03-11 16:28] LABS: Glucose, Whole Blood 77 mg/dL (60-115)
[2021-03-11] MEDS: NIFEdipine ER 30 MG TAB.ER.24 PO (16:41)
[2021-03-11 20:18] LABS: Glucose, Whole Blood 199 mg/dL (60-115)
[2021-03-11] MEDS: NIFEdipine ER 60 MG TAB.ER.24 120 MG PO (20:51)
[2021-03-11] MEDS: Melatonin 3 MG TABLET PO (20:52)
[2021-03-11] MEDS: Atorvastatin Calcium 80 MG TABLET PO (20:52)
[2021-03-11] MEDS: Latanoprost 0.005 % Ophth Sol 2.5 ML DROPS 1 DROP EYE-BOTH (20:57)
[2021-03-12 03:49] VITALS: BP 148/70; PULSE 63; RESP 18; TEMP 36.2; O2SAT 100
[2021-03-12 05:56] VITALS: BMI 21.7
[2021-03-12 07:18] VITALS: BP 145/70; PULSE 66; RESP 18; TEMP 36.4; O2SAT 98
[2021-03-12 07:23] LABS: Anion Gap 11 (12-20); Blood Urea Nitrogen 25 mg/dL (9-16); Calcium 9.2 mg/dL (8.4-10.2); Carbon Dioxide 29 mmol/L (22-29); Chloride 104 mmol/L (96-108); Creatinine Clr Calc Pharmacy 46.4; Estimated Glomerular Filt Rate 51; Glucose Random 93 mg/dL (60-115); Potassium 3.8 mmol/L (3.3-5.1); Sodium 140 mmol/L (135-145)
[2021-03-12 07:46] LABS: Glucose, Whole Blood 88 mg/dL (60-115)
[2021-03-12] MEDS: Insulin Glargine,Hum.rec.anlog 100 UNIT/ML 10 ML VIAL 45 UNIT SUBCUT (08:58)
[2021-03-12] MEDS: Escitalopram Oxalate 10 MG TABLET PO (08:59)
[2021-03-12] MEDS: Aspirin Enteric Coated 81 MG TABLET.DR PO (08:59)
[2021-03-12] MEDS: Ticagrelor 90 MG TABLET PO (08:59)
[2021-03-12] MEDS: Emtricitabine/Tenofov Alafenam TABLET 1 TAB PO (08:59)
[2021-03-12] MEDS: Spironolactone 25 MG TABLET PO (09:00)
[2021-03-12] MEDS: Baclofen 10 MG TABLET 5 MG PO ×2 (09:00→14:04)
[2021-03-12] MEDS: Ezetimibe 10 MG TABLET PO (09:00)
[2021-03-12] MEDS: Cholecalciferol (Vitamin D3) 25 MCG TABLET 50 MCG PO (09:01)
[2021-03-12] MEDS: carvediloL 12.5 MG TABLET PO (09:01)
[2021-03-12] MEDS: Enoxaparin Sodium 40 MG/0.4 ML SYRINGE SUBCUT (09:02)
[2021-03-12] MEDS: Dorzolamide/Timolo 2.23%/0.68% 10 ML DRBTL 1 DROP EYE-BOTH (09:03)
--- NOTE | 2021-03-12 10:24 | PM.CNGS ---
History of Present Illness Consult details Consult date: 03/12/21 Narrative: Very pleasant 70-year-old gentleman well known to me for carotid stenosis. He was originally a patient of Dr. Mujica, who had undergone right carotid endarterectomy many years prior. He developed high-grade recurrent stenosis in the right carotid. It was felt to be the source and cause of his recurrent TIA/strokes. He was subsequently transferred to [facility] where he underwent redo carotid endarterectomy of the right side approximately a month ago, by Dr. Ventura. Had an excellent experience and appears to be recovering well with no issues in terms of his carotid. He was most recently admitted with uncontrolled hypertension. He now presents for vascular evaluation. Of note he currently feels well did not. He denies any headaches dizziness or any other constitutional symptoms. Review of Systems Review of Systems: Yes all other systems are reviewed and are negative Constitutional: Constitutional: Reports no additional constitutional complaints ENT: Reports Normal hearing present Cardiovascular: Cardiovascular: Denies chest pain, Denies chest pain at rest, Denies chest pain with activity and Denies pedal edema Respiratory: Respiratory: Denies cough Gastrointestinal: Gastrointestinal: Denies abdominal pain Musculoskeletal: Musculoskeletal: Denies abnormal gait, Denies muscle cramps and Denies radiating pain into limb Integumentary/Breasts: Skin/Breast: Denies skin ulcer and Denies wounds Neurologic: Reports Normal hearing present and Denies abnormal gait Psychiatric: Psychiatric: Reports no additional psychiatric complaints [facility] Past Medical History Medical History CAD (coronary artery disease) CVA (cerebral vascular accident) Encounter for loop recorder check HLD (hyperlipidemia) HTN (hypertension) 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 Surgical History Surgical History History of carotid endarterectomy History of heart artery stent Social History Social History Household Members: None Housing: House Alcohol intake: never Smoking Status: Never smoker Packs Per Day: 1 Cigarettes Per Day: 20.0 Years Smoked: 30 service: No Current occupational status: unemployed and retired Meds Allergies Allergy/AdvReac Type Severity Reaction Status Date / Time No Known Allergies Allergy Verified 03/09/21 18:25 Active Medications: Current Medications Generic Name Dose Route Start Last Admin Trade Name Freq PRN Reason Stop Dose Admin Aspirin 81 mg 03/10/21 09:00 03/12/21 08:59 Aspirin Enteric Coated 81 Mg Tablet.Dr PO 81 mg DAILY BILLY Administration Atorvastatin Calcium 80 mg 03/10/21 21:00 03/11/21 20:52 Atorvastatin Calcium 80 Mg Tablet PO 80 mg BEDTIME BILLY Administration Baclofen 5 mg 03/10/21 15:00 03/12/21 09:00 Baclofen 10 Mg Tablet PO 5 mg TID BILLY Administration Carvedilol 12.5 mg 03/10/21 09:00 03/12/21 09:01 Carvedilol 12.5 Mg Tablet PO 12.5 mg BID BILLY Administration Protocol Dorzolamide/Timolol 1 drop 03/10/21 09:00 03/12/21 09:03 Dorzolamide/Timolo 2.23%/0.68% 10 Ml Drbtl EYE-BOTH 1 drop BID BILLY Administration Ezetimibe 10 mg 03/10/21 09:00 03/12/21 09:00 Ezetimibe 10 Mg Tablet PO 10 mg DAILY BILLY Administration Emtricitabine/Tenofovir Alafenamide 1 tab 03/10/21 09:00 03/12/21 08:59 Emtricitabine/Tenofov Alafenam Tablet PO 1 tab DAILY BILLY Administration Enoxaparin Sodium 40 mg 03/11/21 10:45 03/12/21 09:02 Enoxaparin Sodium 40 Mg/0.4 Ml Syringe SUBCUT 40 mg Q24H BILLY Administration Escitalopram Oxalate 10 mg 03/10/21 09:00 03/12/21 08:59 Escitalopram Oxalate 10 Mg Tablet PO 10 mg DAILY BILLY Administration Hydralazine HCl 10 mg 03/11/21 17:07 Hydralazine Hcl 20 Mg/Ml Vial IVPUSH Q6H PRN SBP>180 Protocol Insulin Glargine 45 unit 03/11/21 09:00 03/12/21 08:58 Insulin Glargine,Hum.Rec.Anlog 100 Unit/Ml 10 Ml Vial SUBCUT 45 unit DAILY BILLY Administration Insulin Human Lispro 0 unit 03/10/21 16:30 03/12/21 08:03 Insulin Lispro 100 Unit/Ml 3 Ml Vial SUBCUT Not Given QIDACHS [facility] Protocol Latanoprost 1 drop 03/10/21 21:00 03/11/21 20:57 Latanoprost 0.005 % Ophth Sandy 2.5 Ml Drops EYE-BOTH 1 drop BEDTIME BILLY Administration Melatonin 3 mg 03/10/21 21:00 03/11/21 20:52 Melatonin 3 Mg Tablet PO 3 mg BEDTIME BILLY Administration Nifedipine 120 mg 03/11/21 21:00 03/11/21 20:51 Nifedipine Er 60 Mg Tab.Er.24 PO 120 mg BEDTIME [facility] Administration Protocol Nitroglycerin 0.4 mg 03/10/21 02:17 Nitroglycerin 0.4 Mg Tab.Subl SUBLINGUAL Q5M PRN Chest Pain Spironolactone 25 mg 03/11/21 10:15 03/12/21 09:00 Spironolactone 25 Mg Tablet PO 25 mg DAILY BILLY Administration Protocol Ticagrelor 90 mg 03/10/21 12:00 03/12/21 08:59 Ticagrelor 90 Mg Tablet PO 90 mg BID BILLY Administration Vitamin D 50 mcg 03/10/21 09:00 03/12/21 09:01 Cholecalciferol (Vitamin D3) 25 Mcg Tablet PO 50 mcg DAILY BILLY Administration Home Medications Medication Instructions Recorded Confirmed Last Taken Type aspirin 81 mg tablet,delayed 81 mg PO DAILY 09/10/20 03/10/21 03/08/21 History release cholecalciferol (vitamin D3) 50 50 mcg PO DAILY 09/10/20 03/10/21 03/09/21 History mcg (2,000 unit) capsule emtricitabine 200 mg-tenofovir 1 tab PO DAILY 09/10/20 03/10/21 03/09/21 History alafenamide fumarate 25 mg tablet latanoprost 0.005 % eye drops 1 drp OPHTHALMIC (EYE) BEDTIME 09/10/20 03/10/21 03/08/21 History nitroglycerin 0.4 mg sublingual 0.4 mg SUBLINGUAL Q5M PRN 09/10/20 03/10/21 02/18/21 History tablet escitalopram oxalate 10 mg tablet 10 mg PO DAILY 12/31/20 03/10/21 03/09/21 History insulin aspart U-100 100 unit/mL 0 unit SUBCUT QIDACHS ml 12/31/20 03/10/21 03/09/21 History (3 mL) subcutaneous pen dorzolamide-timolol 1 drp OPHTHALMIC (EYE) BID 01/12/21 03/10/21 03/09/21 History baclofen 5 mg PO TID 02/12/21 03/10/21 03/09/21 History Tresiba FlexTouch U-100 45 unit SUBCUT DAILY 02/19/21 03/10/21 03/08/21 History albuterol sulfate 2 puff INHALATION Q4H PRN 02/19/21 03/10/21 03/08/21 History carvedilol 12.5 mg PO BID 02/19/21 03/10/21 03/09/21 History melatonin 5 mg PO BEDTIME 02/19/21 03/10/21 03/08/21 History nifedipine 90 mg PO DAILY 02/19/21 03/10/21 03/08/21 History ticagrelor [Brilinta] 1 tab PO BID 03/10/21 03/10/21 Unknown History Physical Exam Vital Signs: Vital Signs: Last Vital Signs Temp 97.6 F 03/12/21 07:18 Pulse 66 03/12/21 07:18 Resp 18 03/12/21 07:18 BP 145/70 H 03/12/21 07:18 Pulse Ox 98 03/12/21 07:18 Body Mass Index 21.7 Const: General: cooperative, healthy appearing and comfortable Orientation/consciousness: oriented to person, oriented to place and oriented to time HENMT: Head: Yes normal to inspection Neck: Neck: Yes normal visual inspection Carotids: no bruits Chest: Chest palpation & inspection: normal inspection of the chest Resp: Effort & Inspection: normal respiratory effort and able to speak in complete sentences Auscultation: clear to auscultation bilaterally, no crackles, no rales, no rhonchi and no wheezes Cardio: Rate: regular rate Rhythm: regular rhythm Heart sounds: S1 normal heart sound present and S2 normal heart sound present Bruits: no carotid bruits Peripheral pulses: Peripheral pulses 2+ throughout GI: Inspection: Yes normal to inspection Skin: Wounds: no wounds (Right neck incision appears well-healed) Hair: normal Neuro: General: oriented to person, oriented to place and oriented to time Cranial nerves: Yes CN's II-XII intact bilaterally and Yes Normal hearing present Cognition (Neuro): normal cognition Motor exam (neuro): 5/5 motor strength present throughout Extrem: Other: venous exam: No significant superficial varicosities or spider telangiectasias, minimal edema General: No clubbing, No cyanosis and No edema Psych: Appearance: grossly normal Mental Status: mental status grossly normal Speech and movement: Normal speech and movement present Results Labs Result diagrams: 03/11/21 05:23 03/12/21 06:10 Labs: Abnormal lab results 03/11/21 03/11/21 03/12/21 Range/Units 11:13 20:12 06:10 Anion Gap 11 L (12-20) BUN 25 H (9-16) mg/dL POC Glucose 228 H 199 H (60-115) mg/dL BMP 03/12/21 06:10 Sodium 140 Potassium 3.8 Chloride 104 Carbon Dioxide 29 BUN 25 H Creatinine 1.38 Calcium 9.2 All other labs normal. Assessment and Plan (1) Stroke due to stenosis of right carotid artery: Status: Acute (2) Left renal artery stenosis: Status: Acute (3) CKD (chronic kidney disease) stage 3, GFR 30-59 ml/min: Status: Acute (4) AAA (abdominal aortic aneurysm): Status: Acute 1. Patient appears to be doing well status post carotid endarterectomy. It is unclear the source of his uncontrolled hypertension. May be a result of his recent carotid endarterectomy with stripping of [place] receptors which is quite common with this procedure. It may take a month or 2 for this to stabilize. 2. In addition there is a finding of left renal artery stenosis on ultrasound dated 03/11/2021, may be another source of his hypertension. To better elucidate this once stable a dedicated CT angiogram of the abdomen would be ideal 3. At the time of ultrasound an incidental finding of abdominal aortic aneurysm of 3.4 cm was noted as well. In terms of his aortic aneurysm surveillance would be recommended. 4. In terms of his chronic kidney disease it appears to be stable. No acute intervention indicated. In general would protect left arm for future dialysis access. 5. In terms of further care that was scheduled as an outpatient I would coordinate with Dr. Ventura as he is the primary vascular who most recently performed a redo carotid endarterectomy. It may be more ideal for him to have centralized vascular care. Would be happy to assist in any way possible and coordination of care. Thank you for allowing us to assist in his care. If there are any questions or concerns please do not hesitate to contact us. Procedures Date of Service Date of Service: 03/12/21
[2021-03-12 11:42] VITALS: BP 149/73; PULSE 67; RESP 18; TEMP 36.4; O2SAT 99
[2021-03-12] MEDS: Insulin Lispro 100 UNIT/ML 3 ML VIAL SUBCUT (11:51)
[2021-03-12 11:59] LABS: Glucose, Whole Blood 178 mg/dL (60-115)
--- NOTE | 2021-03-12 12:33 | PM.PNNEP ---
Subjective Subjective Date of Service: 03/12/21 Interval history: Seen AM. Events noted. All recent data reviewed. Doppler of renal arteries reviewed Physical Exam Vital Signs: Vital Signs: Last Vital Signs Temp 97.6 F 03/12/21 11:42 Pulse 67 03/12/21 11:42 Resp 18 03/12/21 11:42 BP 149/73 H 03/12/21 11:42 Pulse Ox 99 03/12/21 11:42 Body Mass Index 21.7 Const: General: no acute distress Orientation/consciousness: patient oriented x3 Neck: Other: CEA scar + Resp: Auscultation: diminished lung sounds Cardio: Rate: regular rate GI: Palpation (GI): Soft to palpation Neuro: General: patient oriented x3 and moves all extremities Objective Data Labs CBC & Chem 7: 03/11/21 05:23 03/12/21 06:10 Labs: Laboratory Results - last 24 hr 03/11/21 03/11/21 03/12/21 16:24 20:12 06:10 Sodium 140 Potassium 3.8 Chloride 104 Carbon Dioxide 29 Anion Gap 11 L BUN 25 H Creatinine 1.38 Estim Creat Clear Calc 46.4 Estimated GFR 51 POC Glucose 77 199 H Random Glucose 93 D Calcium 9.2 03/12/21 03/12/21 07:18 11:41 Sodium Potassium Chloride Carbon Dioxide Anion Gap BUN Creatinine Estim Creat Clear Calc Estimated GFR POC Glucose 88 178 H Random Glucose Calcium Assessment & Plan Assessment and plan (1) CKD (chronic kidney disease) stage 3, GFR 30-59 ml/min: Status: Acute Assessment and Plan: 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 Continue rest of current supportive care Shall arrange office follow up if D/Jeremias Time Spent With Patient Time: Total time spent is greater than 50% in coordination of care (as documented) at patient's floor/unit and/or counseling patient: Procedures Date of Service Date of Service: 03/12/21
--- NOTE | 2021-03-12 13:57 | W.MHC.F2F ---
Service Date Service Date: 03/12/21 Encounter Date of encounter: 03/12/21 Reasons for Services Reason for long-term: CV/CP assess and/or care, neurological assessment, medication management, medication treatment, teach disease management and other Reason for physical therapy: home safety and mobility, therapeutic exercises, gait/transfer training, assess need for DME, ADL training and energy conservation Overseeing Care: Ryder Lou Homebound: Leaving the home is medically contraindicated at this time without the asist of a device and/or another person due th the listed conditions above and below. Reason homebound: leg weakness and weakness related to hospital stay Homebound supporting statement: Mr Gipson was admitted to [facility] 03/10-03/12/21 for hypertensive urgency including 1 night in the ICU. VNA for BP monitoring, medication management, and home PT. Certification: Based on the above findings, I certify that this patient is confined to the home and needs intermittent long-term care, physical therapy and/or speech therapy, or continues to need occupational therapy. The patient is under my care, and I have initiated the establishment of the plan of care. The patient will be followed by a physician who will periodically review the plan of care.
--- NOTE | 2021-03-12 14:27 | P.DS_ITS ---
DS: Providers Provider Date of Service: 03/12/21 Date of admission: 03/10/21 00:22 Primary care physician: Ryder Lou MD Consults: 03/10/21 12:50 Consult to Neurology Routine Consulting Provider: [facility] Reason for consultation: new right foot weakness Has provider been notified: Yes 03/11/21 08:52 Consult to Nephrology Routine Consulting Provider: Joaquín Edge Reason for consultation: HTN 03/12/21 07:46 Consult to Vascular Surgery Routine Consulting Provider: Marvin Phoenix Reason for consultation: AAA surveillance, unilateral ABRAHAM on L DS: Diagnosis Discharge Diagnosis (1) CKD (chronic kidney disease) stage 3, GFR 30-59 ml/min: Status: Acute (2) Hypertensive urgency: Status: Acute (3) Left renal artery stenosis: Status: Acute (4) AAA (abdominal aortic aneurysm): Status: Acute (5) Peroneal neuropathy: Status: Acute DS: Medications Discharge Medications Home Medications: Home Medications Medication Instructions Recorded Confirmed aspirin 81 mg tablet,delayed 81 mg PO DAILY 09/10/20 03/10/21 release cholecalciferol (vitamin D3) 50 50 mcg PO DAILY 09/10/20 03/10/21 mcg (2,000 unit) capsule emtricitabine 200 mg-tenofovir 1 tab PO DAILY 09/10/20 03/10/21 alafenamide fumarate 25 mg tablet latanoprost 0.005 % eye drops 1 drp OPHTHALMIC (EYE) BEDTIME 09/10/20 03/10/21 nitroglycerin 0.4 mg sublingual 0.4 mg SUBLINGUAL Q5M PRN 09/10/20 03/10/21 tablet escitalopram oxalate 10 mg tablet 10 mg PO DAILY 12/31/20 03/10/21 insulin aspart U-100 100 unit/mL 0 unit SUBCUT QIDACHS ml 12/31/20 03/10/21 (3 mL) subcutaneous pen dorzolamide-timolol 1 drp OPHTHALMIC (EYE) BID 01/12/21 03/10/21 baclofen 5 mg PO TID 02/12/21 03/10/21 Tresiba FlexTouch U-100 45 unit SUBCUT DAILY 02/19/21 03/10/21 albuterol sulfate 2 puff INHALATION Q4H PRN 02/19/21 03/10/21 carvedilol 12.5 mg PO BID 02/19/21 03/10/21 melatonin 5 mg PO BEDTIME 02/19/21 03/10/21 Brilinta 1 tab PO BID 03/10/21 03/10/21 Previous Rx's Medication Instructions Recorded ezetimibe 10 mg tablet 10 mg PO DAILY 90 Days #90 tab 11/26/20 atorvastatin 80 mg tablet 80 mg PO BEDTIME 30 Days #30 tab 02/12/21 nifedipine 120 mg PO BEDTIME #60 tab 03/12/21 spironolactone 50 mg PO DAILY #30 tab 03/12/21 DS: Summary Hospital Course Hospital Course: From history and physical by admitting photographic specialist DE Alonzo, 03/10/21: 70-year-old male with underlying history of recent ischemic stroke on 01/12/2021 for which who was transferred to [facility], he then underwent a right carotid endarterectomy, has had multiple hypertensive crisis is in fact he did have 1 when he had the above-mentioned stroke. Came with complaints of lightheadedness, tiredness, gait imbalance even with cane and blood pressure elevation of 240/130 a home despite of the intake of his home medications. He has underlying history of coronary disease post stent, hypertension, pituitary macroadenoma, vitamin-D deficiency, type 1 diabetes. In emergency room, patient was noted to his chronic residual left upper hemiparesis from the above-mentioned prior stroke, his overall exam did not show any worsening neurological deficits however his blood pressure appear to be elevated consistently and above 200. Patient did receive small dose of labetalol which did not help bring down his blood pressure. His workup revealed a white count 7.8, H&H of 12.3 and 35.1 respectively, platelets of 209. INR is 1.0. Electrolytes are normal. Creatinine is 1.77 (recent baseline 1.69 ). COVID test negative. Case was discussed by the ER physician with the 80s to NT was advised to observe him overnight, I requested a head CT to ensure there is no intracranial hemorrhage features or large occlusive stroke causing the dizziness. This 70-year-old male with chronic kidney disease stage 3, history of CVA with prior CEA and re-do CEA, HTN, and DM1 was admitted to the ICU for 1 night with hypertensive urgency. He was treated with a few doses of IV labetalol and then stepped down to the hospitalist service. Nephrology was consulted. Nifedipine dose was increased from 90 mg qhs to 120 mg qhs; carvedilol was continued at 12.5 mg bid; and spironolactone 50 mg daily was added. Renal Dopplers demonstrated left-sided renal artery stenosis for which medical management with antihypertensives, statin, and aspirin was recommended. He has a known AAA which is stable at 3.5cm diameter and should be surveilled with yearly US. He was seen by Neurology for a right peroneal neuropathy at knee causing right foot weakness and likely foot drop; he refused an ankle-foot brace, but can pursue outpatient investigation with an EMG/NCS. He was discharged home with VNA services for BP monitoring and home PT. He should follow up with his primary care doctor and his collection correspondent within 1 week and consideration should be given to 24-hour ambulatory blood pressure monitoring. Time Spent with Patient Time attestation: Total time spent providing and/or coordinating discharge services: 45 Discharge coordination time: Greater than 30 minutes Quality: Stroke Does the patient have a stroke diagnosis?: No Physical Exam Vital Signs: Vital Signs: Last Vital Signs Temp 97.6 F 03/12/21 11:42 Pulse 67 03/12/21 11:42 Resp 18 03/12/21 11:42 BP 149/73 H 03/12/21 11:42 Pulse Ox 99 03/12/21 11:42 Body Mass Index 21.7 Gen: in no acute distress HEENT: sclera anicteric, moist mucus membranes Neck: supple Lungs: clear to auscultation bilaterally Heart: regular rate and rhythm, no murmurs Abd: soft, non-tender, non-distended Ext: no edema Skin: warm/well-perfused Neuro: alert and oriented x3, LUE weakness s/p prior CVA Psych: appropriate affect DS: Data Data Completed and Pending Completed studies during hospitalization [Text1]: Laboratory Results WBC 8.5 X10*3/uL (4.8-10.8) 03/11/21 05:23 RBC 3.88 X10*6/uL (4.60-5.80) L 03/11/21 05:23 Hgb 12.8 g/dl (14.0-18.0) L 03/11/21 05:23 Hct 36.7 % (42-52) L 03/11/21 05:23 MCV 94.6 fL (80-98) 03/11/21 05:23 MCH 33.0 pg (27.0-33.0) 03/11/21 05:23 MCHC 34.9 g/dl (31.0-36.0) 03/11/21 05:23 RDW 12.7 % (11.0-16.0) 03/11/21 05:23 Plt Count 208 X10*3/uL (160-400) 03/11/21 05:23 MPV 8.7 fL (9.4-12.4) L 03/11/21 05:23 Immature Gran % (Auto) 0.4 % (0.0-0.4) 03/11/21 05:23 Neut % (Auto) 65.7 % (45-73) 03/11/21 05:23 Lymph % (Auto) 17.3 % (20-40) L 03/11/21 05:23 [place] % (Auto) 12.0 % (2-11) H 03/11/21 05:23 Eos % (Auto) 4.1 % (0-4) H 03/11/21 05:23 Baso % (Auto) 0.5 % (0-2) 03/11/21 05:23 Lymph # (Auto) 1.5 X10*3/uL (1.2-4.9) 03/11/21 05:23 [place] # (Auto) 1.0 X10*3/uL (0.1-1.2) 03/11/21 05:23 Eos # (Auto) 0.4 X10*3/uL (0.0-0.4) 03/11/21 05:23 Baso # (Auto) 0.0 X10*3/uL (0.0-0.2) 03/11/21 05:23 Abs Immat Gran (auto) 0.03 X10*3/uL (0.00-0.03) 03/11/21 05:23 Absolute Neuts (auto) 5.6 X10*3/uL (2.0-8.3) 03/11/21 05:23 Absolute Nucleated RBC 0.000 X10*3/uL (0.0-0.012) 03/11/21 05:23 Nucleated RBC % (auto) 0.0 /100WBC (0.0-0.2) 03/11/21 05:23 PT 11.9 SEC (10.8-13.0) 03/09/21 19:07 INR 1.0 (0.9-1.1) 03/09/21 19:07 Hold Blue Top SEE NOTE 03/09/21 19:07 Sodium 140 mmol/L (135-145) 03/12/21 06:10 Potassium 3.8 mmol/L (3.3-5.1) 03/12/21 06:10 Chloride 104 mmol/L (96-108) 03/12/21 06:10 Carbon Dioxide 29 mmol/L (22-29) 03/12/21 06:10 Anion Gap 11 (12-20) L 03/12/21 06:10 BUN 25 mg/dL (9-16) H 03/12/21 06:10 Creatinine 1.38 mg/dL (0.5-1.4) 03/12/21 06:10 Estim Creat Clear Calc 46.4 03/12/21 06:10 Estimated GFR 51 03/12/21 06:10 POC Glucose 178 mg/dL (60-115) H 03/12/21 11:41 Random Glucose 93 mg/dL (60-115) D 03/12/21 06:10 Calcium 9.2 mg/dL (8.4-10.2) 03/12/21 06:10 Total Bilirubin 0.5 mg/dL (0.0-1.0) 03/11/21 05:23 AST 14 U/L (5-37) 03/11/21 05:23 ALT 21 U/L (0-40) 03/11/21 05:23 Alkaline Phosphatase 87 U/L (39-117) 03/11/21 05:23 Troponin I High Sens 23.1 ng/L (<3.5-35.0) 03/09/21 22:16 Total Protein 6.1 g/dL (6.5-8.0) L 03/11/21 05:23 Albumin 3.8 g/dL (3.5-5.0) 03/11/21 05:23 COVID-19 (JOSR) Negative (Negative) 03/09/21 22:53 COVID-19 Clin Com See Note 03/09/21 22:[address] 03/09/21 22:54 IMPRESSION: 1. Expected evolution of previously seen right frontal parietal lobe infarcts 2. No new territorial infarct or intracranial hemorrhage. 3. Stable known pituitary macroadenoma. Renal Ultrasound 03/11/21 18:53 IMPRESSION: Findings strongly suspicious for left renal artery stenosis. Mid abdominal aortic aneurysm new since the previous study. But still within the range for calculation of RAR. There is no suggestion for right renal artery stenosis. Bilateral renal ultrasound is unremarkable. There is distal abdominal aortic aneurysm measuring 3.4 x 3.5 cm. Previously no aneurysm was recorded. Discharge Plan Discharge Patient Disposition: Home Health Service Discharge Diagnosis: hypertensive urgency, AAA, renal artery stenosis Referrals: Tammy BALDERAS [Outside] - 1 Week Ryder Lou MD [Primary Care Provider] - 1 Week Chandrakant Lei MD [Physician] - 1 Week Discharge Medications: New nifedipine 60 mg Tablet Extended Release 24hr 120 mg PO BEDTIME Qty: 60 RF: 0 spironolactone 50 mg tablet 50 mg PO DAILY Qty: 30 RF: 0 Continued ezetimibe [Zetia] 10 mg tablet 10 mg PO DAILY 90 Days Qty: 90 RF: 1 atorvastatin 80 mg tablet 80 mg PO BEDTIME 30 Days Qty: 30 RF: 11 dorzolamide-timolol 22.3-6.8 mg/mL Drops 1 drp OPHTHALMIC (EYE) BID RF: 0 baclofen 10 mg tablet 5 mg PO TID RF: 0 carvedilol 12.5 mg tablet 12.5 mg PO BID RF: 0 albuterol sulfate 90 mcg/actuation Hfa Aerosol Inhaler 2 puff INHALATION Q4H PRN (Reason: Wheezing) RF: 0 melatonin 5 mg Tablet 5 mg PO BEDTIME RF: 0 Tresiba FlexTouch U-100 100 unit/mL (3 mL) insulin pen 45 unit subcut DAILY RF: 0 Brilinta 90 mg tablet 1 tab PO BID RF: 0 escitalopram oxalate 10 mg tablet 10 mg PO DAILY RF: 0 latanoprost [Xalatan] 0.005 % drops 1 drp ophthalmic (eye) BEDTIME RF: 0 cholecalciferol (vitamin D3) 50 mcg (2,000 unit) capsule 50 mcg PO DAILY RF: 0 aspirin 81 mg tablet,delayed release (DR/EC) 81 mg PO DAILY RF: 0 nitroglycerin 0.4 mg tablet, sublingual 0.4 mg sublingual Q5M PRN (Reason: Chest Pain) RF: 0 Descovy 200-25 mg tablet 1 tab PO DAILY RF: 0 insulin aspart U-100 [Novolog Flexpen U-100 Insulin] 100 unit/mL (3 mL) insulin pen 0 unit subcut QIDACHS RF: 0 Discontinued nifedipine 30 mg tablet extended release 90 mg PO DAILY RF: 0 Discharge Orders: Discharge Order (Routine); Ordered 03/12/21 Ordered By: Mike Perez Diet: diabetic diet and low salt diet Activity on Discharge: As tolerated Stand Alone Forms: Patient Portal Discharge page Other Ambulatory Orders: Basic Metabolic Panel (Routine) Timeframe: 1 Week Facility: [facility] - Location: Laboratory Ordered By: Mike Perez Care Plan Goals: cardiovascular health Health Concerns: uncontrolled hypertension abdominal aortic aneurysm renal artery stenosis Plan of Treatment: increase nifedipine from 90 mg to 120 mg at bedtime continue carvedilol 12.5 mg twice daily start spironolactone 50 mg daily check electrolytes [basic metabolic panel, non-fasting] in 1 week see your primary care doctor and your collection correspondent in 1 week repeat US to monitor AAA in 1 year Assessment: as above Patient Instructions: Hypertensive Crisis (ED), Hypertension (DC)
--- NOTE | 2021-03-15 11:40 | MHC.CM.PN ---
Pt's sister, Margoth called to verbalize frustration with [facility]: states pt has not had an intake as of yet: d/c'd on 03/12. Per Margoth, they called on 03/15 but pt was having company and didn't want a visit. They received a call this am for an intake time but pt had an outpt MD appt and declined VNA intake. Margoth concerned with pt's lack of PT/OT appts - CM reinforced the importance of initial intake visit to assess and plan for services. Encouraged Margoth to make time for the visit.
== END 2021-03-12 14:46 | disposition home health service (06) | DRG 305 ==
LOC: HO.ED 22:58 → HO.ICU 03-10 00:40 → HO.S3 03-11 14:25
PROVIDERS: Anesthesiology; Admitting Provider Physician Assistant Medical; Emergency Provider Emergency Medicine; PCP Internal Medicine; Visit Provider Family Medicine
DX: I16.0 Hypertensive urgency (principal); I69.354 Hemiplegia and hemiparesis following cerebral infarction affecting left non-dominant side; N17.9 Acute kidney failure, unspecified; B18.1 Chronic viral hepatitis B without delta-agent; G57.30 Lesion of lateral popliteal nerve, unspecified lower limb; I13.10 Hypertensive heart and chronic kidney disease without heart failure, with stage 1 through stage 4 chronic kidney disease, or unspecified chronic kidney disease; I71.4 Abdominal aortic aneurysm, without rupture; I70.1 Atherosclerosis of renal artery; E10.22 Type 1 diabetes mellitus with diabetic chronic kidney disease; N18.30 Chronic kidney disease, stage 3 unspecified; M21.371 Foot drop, right foot; Z20.822 Contact with and (suspected) exposure to COVID-19; Z79.4 Long term (current) use of insulin; Z79.82 Long term (current) use of aspirin; Z79.899 Other long term (current) drug therapy
CPT/HCPCS: 36415; 70450; 76775; 80048; 80053; 82947; 84484; 85025; 85610; 87635; 93005; 93975; 96374; 97116; 97162; 97530; 99285; 99291; J1650

== ENCOUNTER 2021-03-16 12:00 | Outpatient (RCR) | payer MEDICARE, BC, SELFPAY ==
[2021-02-12 13:51] VITALS: BP 180/82
== END 2021-03-25 12:35 | disposition other institution (70) ==
LOC: HO.PT 12:00
PROVIDERS: PCP Internal Medicine; Visit Provider Internal Medicine
DX: G81.94 Hemiplegia, unspecified affecting left nondominant side (principal)
CPT/HCPCS: 97110; 97112; 97162; 97530

== ENCOUNTER 2021-03-22 00:45 | Inpatient (IN) | payer MEDICARE, BC, SELFPAY ==
[2021-03-22] VITALS (18 sets, daily range): BP systolic 76–193; BP diastolic 34–93; PULSE 56–90; RESP 15–20; TEMP 36.4–36.9; O2SAT 96–100; BMI 22.5
--- NOTE | ~2021-03-22 | CT_ITS ---
EXAMINATION: CT HEAD WITHOUT CONTRAST CLINICAL INFORMATION: Fall. Near syncope. COMPARISON: 03/09/2021 TECHNIQUE: Contiguous axial imaging was performed from the skull base to vertex without intravenous contrast. This CT examination was performed using dose optimization techniques as appropriate, variously including the following: * Automated exposure control * Adjustment of mA and/or kV according to patient size (this includes techniques or standardized protocols for targeted exams where dose is matched to indication/reason for exam; i.e. extremities or head) Use of iterative reconstruction technique DLP: 750 mGy-cm. FINDINGS: Chronic right MCA territory infarct involving the right frontal and parietal lobes. Multiple chronic lacunar infarcts of the right basal ganglia. There is no evidence of acute intracranial hemorrhage or territorial infarction. No abnormal mass effect or midline shift is seen. Elizabeth to white matter differentiation is otherwise well preserved. No extra-axial fluid collections are identified. No hydrocephalus. Proportional prominence of the ventricles and sulcal spaces is consistent with mild volume loss. Patchy periventricular and deep white matter hypoattenuation is consistent with mild small vessel ischemic changes. The osseous structures and soft tissues are normal. The mastoid air cells and visualized portions of the paranasal sinuses are well aerated. CT/CT head/brain wo con IMPRESSION: No acute intracranial pathology. Chronic right MCA territory infarct.
--- NOTE | ~2021-03-22 | XR_ITS ---
EXAMINATION: XR CHEST CLINICAL INFORMATION: Fall COMPARISON: 09/21/2020 TECHNIQUE: Frontal view of the chest was obtained. FINDINGS: Cardiac Loop recorder. Cardiac leads overlie the chest. The lungs are well expanded. There is no focal consolidation, edema, or effusion. No pneumothorax. The cardiomediastinal silhouette is within normal limits. No acute osseous abnormality. XR/XR chest 1V IMPRESSION: No acute pulmonary finding. No displaced fractures are seen.
--- NOTE | 2021-03-22 01:04 | ECG_ITS ---
Test Reason : WEAKNESS Blood Pressure : / mmHG Vent. Rate : 066 BPM Atrial Rate : 066 BPM P-R Int : 114 ms QRS Dur : 122 ms QT Int : 464 ms P-R-T Axes : 023 059 022 degrees QTc Int : 486 ms Normal sinus rhythm Right bundle branch block Abnormal ECG When compared with ECG of 09-MAR-2021 18:58, No significant changes seen Referred By: Carmen Venegas Electronically Signed By:CLARICE ESPINO
[2021-03-22 01:21] LABS: MANUAL DIFF FLAG NO
[2021-03-22 01:22] LABS: Basophils Absolute Auto 0.1 X10*3/uL (0.0-0.2); Basophils Percent Auto 0.4 % (0-2); Eosinophils Absolute Auto 0.4 X10*3/uL (0.0-0.4); Hematocrit 43.3 % (42-52); Hemoglobin 15.2 g/dl (14.0-18.0); Imm Gran Abs Auto 0.06 X10*3/uL (0.00-0.03); Imm Gran Pct Auto 0.5 % (0.0-0.4); Lymphocytes Absolute Auto 1.9 X10*3/uL (1.2-4.9); Lymphocytes Percent Auto 16.3 % (20-40); Mean Corpuscular HGB Conc 35.1 g/dl (31.0-36.0); Mean Corpuscular Hemoglobin 32.6 pg (27.0-33.0); Mean Corpuscular Volume 92.9 fL (80-98); Mean Platelet Volume 8.2 fL (9.4-12.4); Monocytes Absolute Auto 1.2 X10*3/uL (0.1-1.2); Monocytes Percent Auto 10.8 % (2-11); Neutrophils Absolute Auto 7.9 X10*3/uL (2.0-8.3); Platelet Count 264 X10*3/uL (160-400); Red Blood Count 4.66 X10*6/uL (4.60-5.80); Red Cell Distribution Width 12.9 % (11.0-16.0); White Blood Count 11.5 X10*3/uL (4.8-10.8)
--- NOTE | 2021-03-22 01:24 | ED.DIZZY ---
HPI - Dizziness General Chief Complaint: Syncope Stated Complaint: vomiting weakness Time Seen by Provider: 03/22/21 00:57 Source: patient and EMS Mode of arrival: EMS Limitations: no limitations History of Present Illness HPI Narrative: 70-year-old male came in by ambulance for evaluation of near syncopal episode and fall. This is a 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 that is gradually improving with OT/PT, patient was going a flight of stairs to go to his bedroom, patient when he reach upstairs felt lightheadedness and almost going to pass out patient do not think that he is truly passed out, patient fell down on hands and knee patient declined head injury. Patient had 2 episode of vomiting at home after the fall, called 911 for further evaluation. In the emergency department patient is asymptomatic except feeling nauseous and had 1 episode of vomiting. Patient otherwise declined headache. Patient fell last week causing an old laceration on his left chin. Related Data Home Medications Medication Instructions Recorded Confirmed aspirin 81 mg tablet,delayed 81 mg PO DAILY 09/10/20 03/10/21 release cholecalciferol (vitamin D3) 50 50 mcg PO DAILY 09/10/20 03/10/21 mcg (2,000 unit) capsule emtricitabine 200 mg-tenofovir 1 tab PO DAILY 09/10/20 03/10/21 alafenamide fumarate 25 mg tablet latanoprost 0.005 % eye drops 1 drp OPHTHALMIC (EYE) BEDTIME 09/10/20 03/10/21 nitroglycerin 0.4 mg sublingual 0.4 mg SUBLINGUAL Q5M PRN 09/10/20 03/10/21 tablet escitalopram oxalate 10 mg tablet 10 mg PO DAILY 12/31/20 03/10/21 insulin aspart U-100 100 unit/mL 0 unit SUBCUT QIDACHS ml 12/31/20 03/10/21 (3 mL) subcutaneous pen dorzolamide-timolol 1 drp OPHTHALMIC (EYE) BID 01/12/21 03/10/21 baclofen 5 mg PO TID 02/12/21 03/10/21 Tresiba FlexTouch U-100 45 unit SUBCUT DAILY 02/19/21 03/10/21 albuterol sulfate 2 puff INHALATION Q4H PRN 02/19/21 03/10/21 carvedilol 12.5 mg PO BID 02/19/21 03/10/21 melatonin 5 mg PO BEDTIME 02/19/21 03/10/21 Brilinta 1 tab PO BID 03/10/21 03/10/21 Previous Rx's Medication Instructions Recorded ezetimibe 10 mg tablet 10 mg PO DAILY 90 Days #90 tab 11/26/20 atorvastatin 80 mg tablet 80 mg PO BEDTIME 30 Days #30 tab 02/12/21 nifedipine 120 mg PO BEDTIME #60 tab 03/12/21 spironolactone 50 mg PO DAILY #30 tab 03/12/21 Allergies Allergy/AdvReac Type Severity Reaction Status Date / Time No Known Allergies Allergy Verified 03/22/21 01:48 Review of Systems Review of Systems: All other systems are reviewed and are negative Constitutional: Reports as per HPI and Reports no additional constitutional complaints Eyes: Reports as per HPI and Reports no additional eye complaints Reports system reviewed and no additional complaints, except as documented Cardiovascular: Reports as per HPI and Reports no additional cardiovascular complaints Respiratory: Reports as per HPI and Reports no additional respiratory complaints Gastrointestinal: Reports as per HPI and Reports no additional gastrointestinal complaints Genitourinary: Reports no additional female genitourinary complaints Musculoskeletal: Reports no additional musculoskeletal complaints Skin/Breast: Reports system reviewed and no additional complaints, except as docu Psychiatric: Reports no additional psychiatric complaints Endocrine: Reports no additional endocrine complaints Hematologic/Lymphatic: Reports no additional hematologic/lymphatic complaints Allergic/Immunologic: Reports no additional allergic/immunologic complaints Reports system reviewed and no additional complaints, except as documented and Reports Abnormal speech present [facility] Past Medical History Medical History AAA (abdominal aortic aneurysm) CAD (coronary artery disease) CKD (chronic kidney disease) stage 3, GFR 30-59 ml/min CVA (cerebral vascular accident) Encounter for loop recorder check HLD (hyperlipidemia) HTN (hypertension) Hypertension Hypertensive urgency Left renal artery stenosis Peroneal neuropathy Pituitary macroadenoma Status post placement of implantable loop recorder Stroke Stroke due to stenosis of right carotid artery T1DM (type 1 diabetes mellitus) TIA (transient ischemic attack) Vitamin D deficiency Surgical History History of carotid endarterectomy History of heart artery stent Family History Family History Father CVD (cardiovascular disease) AAA (abdominal aortic aneurysm) Mother No problems noted. Social History Social History Household Members: None Housing: House Alcohol intake: unknown Cigarette Packs Per Day: 1 Cigarettes Per Day: 20.0 Years Smoked: 30 Smoked in Last 30 Days: No Use of substances other than those prescribed or required for medical reasons: Unknown Advance Directives: No Advance Directives Information Provided: No service: No Current occupational status: unemployed and retired Physical Exam Vital Signs: Vital Signs: Last Vital Signs Temp 97.5 F 03/22/21 01:21 Pulse 75 03/22/21 01:26 Resp 16 03/22/21 01:26 BP 163/86 H 03/22/21 01:26 Pulse Ox 99 03/22/21 00:55 Body Mass Index 22.5 Vital signs have been reviewed as appeared to be correct. Blood pressure low. Heart rate normal. Respiration rate normal. Temperature normal. Oxygen saturation normal. Appearance: Alert. Oriented X3. No acute distress. Head: Normal external exam. Normocephalic. Atraumatic. No Michael signs noted. No raccoon eyes noted Eyes: PERRLA. EOMI. Conjunctiva and sclera normal. Eyelids normal. ENT: TM's Normal. Pharynx normal. Uvula midline. Moist mucous membranes. No trismus noted. No drooling noted. No muffled voice noted. Neck: Normal inspection. Neck supple. FROM. No adenopathy. Thyroid Normal. No meningeal signs. No neck mass noted. CVS: Normal heart rate and rhythm. Heart sound normal. No murmurs noted. Pulses normal throughout. Respiratory: No respiratory distress. Painless inspiration. Breath sounds normal. No wheezes/rales/rhonchi noted. Chest nontender. No accessory muscle usage noted or decreased air movement noted. Abdomen: Soft and nontender. Bowel sounds normal in all 4 quadrants. No distention noted. No organomegaly noted. No visible injury noted. Back: No CVA tenderness. Full range of motion noted. Skin: Skin warm and dry. Normal skin color. Normal skin turgor. No rashes/lesions/lacerations noted. Extremities: No lower extremity edema. Extremities exhibit normal range of motion. Extremities nontender. Old left cano healed laceration Neuro: Oriented X 3. Pre-existing mild hemiparesis. Course Course Course Narrative: Assessment and plan. 70-year-old male history of CVA with residual left hemiparesis came in after episode of lightheadedness followed by fall and head injury, patient had several episodes of vomiting. Patient also was orthostatic in the emergency department, was 1 episode of hypotension which is secondary to dehydration no evidence of infection. Now neuro exam is at baseline with left hemiparesis, GCS of 15, head CT is negative, EKG is on remarkable for changes, troponin within normal. Admit the patient for cardiac monitoring. [facility] - Dizziness Lab Data Attestation: I reviewed the patient's lab results. Result diagrams: 03/22/21 01:09 03/22/21 01:09 Labs: Lab Results 03/22/21 03/22/21 03/22/21 Range/Units 01:09 01:09 01:09 WBC 11.5 H (4.8-10.8) X10*3/uL RBC 4.66 D (4.60-5.80) X10*6/uL Hgb 15.2 (14.0-18.0) g/dl Hct 43.3 (42-52) % MCV 92.9 (80-98) fL MCH 32.6 (27.0-33.0) pg MCHC 35.1 (31.0-36.0) g/dl RDW 12.9 (11.0-16.0) % Plt Count 264 D (160-400) X10*3/uL MPV 8.2 L (9.4-12.4) fL Immature Gran % (Auto) 0.5 H (0.0-0.4) % Neut % (Auto) 69.0 (45-73) % Lymph % (Auto) 16.3 L (20-40) % [place] % (Auto) 10.8 (2-11) % Eos % (Auto) 3.0 (0-4) % Baso % (Auto) 0.4 (0-2) % Lymph # (Auto) 1.9 (1.2-4.9) X10*3/uL [place] # (Auto) 1.2 (0.1-1.2) X10*3/uL Eos # (Auto) 0.4 (0.0-0.4) X10*3/uL Baso # (Auto) 0.1 (0.0-0.2) X10*3/uL Abs Immat Gran (auto) 0.06 H (0.00-0.03) X10*3/uL Absolute Neuts (auto) 7.9 (2.0-8.3) X10*3/uL Absolute Nucleated RBC 0.000 (0.0-0.012) X10*3/uL Nucleated RBC % (auto) 0.0 (0.0-0.2) /100WBC Sodium 139 (135-145) mmol/L Potassium 4.0 (3.3-5.1) mmol/L Chloride 104 (96-108) mmol/L Carbon Dioxide 24 (22-29) mmol/L Anion Gap 15 (12-20) BUN 31 H (9-16) mg/dL Creatinine 1.99 H (0.5-1.4) mg/dL Estim Creat Clear Calc 33.2 Estimated GFR 33 Random Glucose 119 H (60-115) mg/dL Calcium 9.4 (8.4-10.2) mg/dL Troponin I High Sens 16.3 (<3.5-35.0) ng/L B-Natriuretic Peptide (<100) pg/mL 03/22/21 Range/Units 01:09 WBC (4.8-10.8) X10*3/uL RBC (4.60-5.80) X10*6/uL Hgb (14.0-18.0) g/dl Hct (42-52) % MCV (80-98) fL MCH (27.0-33.0) pg MCHC (31.0-36.0) g/dl RDW (11.0-16.0) % Plt Count (160-400) X10*3/uL MPV (9.4-12.4) fL Immature Gran % (Auto) (0.0-0.4) % Neut % (Auto) (45-73) % Lymph % (Auto) (20-40) % [place] % (Auto) (2-11) % Eos % (Auto) (0-4) % Baso % (Auto) (0-2) % Lymph # (Auto) (1.2-4.9) X10*3/uL [place] # (Auto) (0.1-1.2) X10*3/uL Eos # (Auto) (0.0-0.4) X10*3/uL Baso # (Auto) (0.0-0.2) X10*3/uL Abs Immat Gran (auto) (0.00-0.03) X10*3/uL Absolute Neuts (auto) (2.0-8.3) X10*3/uL Absolute Nucleated RBC (0.0-0.012) X10*3/uL Nucleated RBC % (auto) (0.0-0.2) /100WBC Sodium (135-145) mmol/L Potassium (3.3-5.1) mmol/L Chloride (96-108) mmol/L Carbon Dioxide (22-29) mmol/L Anion Gap (12-20) BUN (9-16) mg/dL Creatinine (0.5-1.4) mg/dL Estim Creat Clear Calc Estimated GFR Random Glucose (60-115) mg/dL Calcium (8.4-10.2) mg/dL Troponin I High Sens (<3.5-35.0) ng/L B-Natriuretic Peptide 34 (<100) pg/mL Imaging Data Chest x-ray: Radiologist's impression: Cardiac Loop recorder. Cardiac leads overlie the chest. The lungs are well expanded. There is no focal consolidation, edema, or effusion. No pneumothorax. The cardiomediastinal silhouette is within normal limits. No acute osseous abnormality. CT scan - head: Radiologist's impression: No acute intracranial pathology. Chronic right MCA territory infarct. ECG Data Interpretation: Normal sinus rhythm at 66 beats per minute, short OK interval, slight prolongation of QRS, right bundle branch block, no change from old EKG. Discharge Plan Discharge Clinical Impression: Near syncope, Orthostatic hypotension Patient Disposition: Admitted As Inpatient Prescriptions: No Action ezetimibe [Zetia] 10 mg tablet 10 mg PO DAILY 90 Days Qty: 90 RF: 1 atorvastatin 80 mg tablet 80 mg PO BEDTIME 30 Days Qty: 30 RF: 11 dorzolamide-timolol 22.3-6.8 mg/mL Drops 1 drp OPHTHALMIC (EYE) BID RF: 0 baclofen 10 mg tablet 5 mg PO TID RF: 0 carvedilol 12.5 mg tablet 12.5 mg PO BID RF: 0 albuterol sulfate 90 mcg/actuation Hfa Aerosol Inhaler 2 puff INHALATION Q4H PRN (Reason: Wheezing) RF: 0 melatonin 5 mg Tablet 5 mg PO BEDTIME RF: 0 Tresiba FlexTouch U-100 100 unit/mL (3 mL) insulin pen 45 unit subcut DAILY RF: 0 Brilinta 90 mg tablet 1 tab PO BID RF: 0 nifedipine 60 mg Tablet Extended Release 24hr 120 mg PO BEDTIME Qty: 60 RF: 0 spironolactone 50 mg tablet 50 mg PO DAILY Qty: 30 RF: 0 escitalopram oxalate 10 mg tablet 10 mg PO DAILY RF: 0 latanoprost [Xalatan] 0.005 % drops 1 drp ophthalmic (eye) BEDTIME RF: 0 cholecalciferol (vitamin D3) 50 mcg (2,000 unit) capsule 50 mcg PO DAILY RF: 0 aspirin 81 mg tablet,delayed release (DR/EC) 81 mg PO DAILY RF: 0 nitroglycerin 0.4 mg tablet, sublingual 0.4 mg sublingual Q5M PRN (Reason: Chest Pain) RF: 0 Descovy 200-25 mg tablet 1 tab PO DAILY RF: 0 insulin aspart U-100 [Novolog Flexpen U-100 Insulin] 100 unit/mL (3 mL) insulin pen 0 unit subcut QIDACHS RF: 0
[2021-03-22] MEDS: ondansetron HCL 4 MG/2 ML VIAL IVPUSH (01:26)
[2021-03-22] MEDS: 0.9 % Sodium Chloride 1,000 ML 999 ML IVCONT (01:26)
--- NOTE | 2021-03-22 01:29 | PC.NURSE ---
EKG and labs obtained and sent. Orthostatic vitals obtained. +Orthos, from standing to sitting, pt became dizzy, lightheaded, nauseated and started vomiting. BP dropped to 77/40. Pt medicated with Zofran and IVF, recovering quickly. CXR at bedside. Pt aware of plan for CT. Call archuleta within reach, continue to monitor.
[2021-03-22 01:44] LABS: Anion Gap 15 (12-20); Blood Urea Nitrogen 31 mg/dL (9-16); Calcium 9.4 mg/dL (8.4-10.2); Carbon Dioxide 24 mmol/L (22-29); Chloride 104 mmol/L (96-108); Creatinine Clr Calc Pharmacy 33.2; Estimated Glomerular Filt Rate 33; Glucose Random 119 mg/dL (60-115); Sodium 139 mmol/L (135-145)
[2021-03-22 01:49] LABS: B Type Natriuretic Peptide 34 pg/mL (<100); Troponin-I High Sensitivity 16.3 ng/L (<3.5-35.0)
--- NOTE | 2021-03-22 01:50 | PC.NURSE ---
Off to CT on hospital bed.
--- NOTE | 2021-03-22 01:56 | PC.NURSE ---
Pt returns from CT on hospital bed at this time. Pt aware of plan to await results.
--- NOTE | 2021-03-22 02:12 | PC.NURSE ---
Pt provided with multiple warm blankets per request for comfort. Pt resting in bed with family at bedside, awaiting results. Call archuleta within reach, continue to monitor.
--- NOTE | 2021-03-22 02:29 | P.HPHOSP_ITS ---
History of Present Illness Date of Service: 03/22/21 Chief Complaint: Fall [age] year male with a past medical history of hypertension, hyperlipidemia, diabetes, coronary artery disease, chronic kidney disease, abdominal aortic aneurysm, left renal artery stenosis, history of pituitary macroadenoma, history of CVA with left-sided weakness, history of carotid endarterectomy, recent admission to the hospital for hypertensive urgency presented to the hospital with a chief complaint of fall. Patient reported that this evening he felt dizzy and lightheaded and subsequently fell down mentions that he may have passed out few seconds. Denies any headaches numbness tingling. Denies any hip pain or back pain. Denies any chest pain or palpitations. Patient reported that he had an episode of vomiting at home and also had an episode of vomiting in the ER. Denies any abdominal discomfort. Review of all other systems is negative except mentioned above ER course: Per ER team patient's exam was nonfocal, patient on presentation noted to have blood pressure of 77/40. Given IV fluids with improvement in blood pressure Cardiology November 28. EKG nonischemic. Troponin negative. CT head showed no acute findings reviewed admitted to the hospital for further management. [facility] Medical History AAA (abdominal aortic aneurysm) CAD (coronary artery disease) CKD (chronic kidney disease) stage 3, GFR 30-59 ml/min CVA (cerebral vascular accident) Encounter for loop recorder check HLD (hyperlipidemia) HTN (hypertension) Hypertension Hypertensive urgency Left renal artery stenosis Peroneal neuropathy Pituitary macroadenoma Status post placement of implantable loop recorder Stroke Stroke due to stenosis of right carotid artery T1DM (type 1 diabetes mellitus) TIA (transient ischemic attack) Vitamin D deficiency Family History Father CVD (cardiovascular disease) AAA (abdominal aortic aneurysm) Mother No problems noted. Surgical History History of carotid endarterectomy History of heart artery stent Social History Household Members: Spouse and Family Housing: House Do you presently have visiting nurse or other home services: Yes Alcohol intake: unknown Patient Tobacco Use Status: Former Tobacco user Tobacco use type: Cigarette Cigarette Packs Per Day: 1 Cigarettes Per Day: 20.0 Years Smoked: 50 Smoked in Last 30 Days: No Patient Interested in Nicotine Replacement: No Patient Given Instructions on How to Stop Smoking: No Second Hand Smoke Exposure: No Use of substances other than those prescribed or required for medical reasons: No Currently Displaying Signs/Symptoms of Drug Intoxication Withdrawal: No Have you been hit, kicked, punched, or otherwise hurt by someone within the past year? If so, by whom?: No Do you feel safe in your current relationship?: No Is there a partner from a previous relationship who is making you feel unsafe now?: No Are you made to feel afraid or neglected: No Are you DNR?: No Advance Directives: No Advance Directives Information Provided: No Advance Directives on File: No Do you have thoughts of harming others: None Do you have a plan to hurt others: No Plan Recently lost weight without trying: No How much weight loss: Not applicable Eating poorly because of decreased appetite: No Nutrition screen score: 0 Nutrition Risks: No Nutritional Risk Poor oral hygiene: No service: No Current occupational status: unemployed and retired [employer] Allergies Allergy/AdvReac Type Severity Reaction Status Date / Time No Known Allergies Allergy Verified 03/22/21 01:48 Active Medications: Current Medications Generic Name Dose Route Start Last Admin Trade Name Freq PRN Reason Stop Dose Admin Acetaminophen 650 mg 03/22/21 02:25 Acetaminophen 325 Mg Tablet PO Q6H PRN Pain, Mild (Pain Scale 1-3) Sodium Chloride 1,000 mls @ 999 mls/hr 03/22/21 01:30 03/22/21 01:26 Ns IVCONT 03/22/21 02:30 999 mls/hr .Q1H1M BILLY Administration Sodium Chloride 1,000 mls @ 75 mls/hr 03/22/21 02:30 Ns IVCONT .[id number] [facility] Insulin Human Lispro 0 unit 03/22/21 07:30 Insulin Lispro 100 Unit/Ml 3 Ml Vial SUBCUT QIDACHS [facility] Protocol Magnesium Hydroxide 30 ml 03/22/21 02:25 Milk Of Magnesia 30 Ml Oral.Susp PO DAILY PRN Constipation Sodium Chloride 3 ml 03/22/21 08:00 0.9 % Sodium Chloride Flush 3 Ml Syringe IVFLUSH QSHIFT [facility] Home Medications Medication Instructions Recorded Confirmed Last Taken Type aspirin 81 mg tablet,delayed 81 mg PO DAILY 09/10/20 03/22/21 03/21/21 08:00 History release cholecalciferol (vitamin D3) 50 50 mcg PO DAILY 09/10/20 03/22/21 03/21/21 08:00 History mcg (2,000 unit) capsule emtricitabine 200 mg-tenofovir 1 tab PO DAILY 09/10/20 03/22/21 03/21/21 08:00 History alafenamide fumarate 25 mg tablet latanoprost 0.005 % eye drops 1 drp OPHTHALMIC (EYE) BEDTIME 09/10/20 03/22/21 03/20/21 History nitroglycerin 0.4 mg sublingual 0.4 mg SUBLINGUAL Q5M PRN 09/10/20 03/22/21 02/18/21 History tablet escitalopram oxalate 10 mg tablet 10 mg PO DAILY 12/31/20 03/22/21 03/21/21 08:00 History insulin aspart U-100 100 unit/mL 0 unit SUBCUT QIDACHS ml 12/31/20 03/22/21 03/21/21 22:00 History (3 mL) subcutaneous pen dorzolamide-timolol 1 drp OPHTHALMIC (EYE) BID 01/12/21 03/22/21 03/20/21 History baclofen 5 mg PO TID 02/12/21 03/22/21 03/21/21 22:00 History Tresiba FlexTouch U-100 45 unit SUBCUT DAILY 02/19/21 03/22/21 03/21/21 08:00 History albuterol sulfate 2 puff INHALATION Q4H PRN 02/19/21 03/22/21 03/08/21 History carvedilol 12.5 mg PO BID 02/19/21 03/22/21 03/21/21 22:00 History melatonin 5 mg PO BEDTIME 02/19/21 03/22/21 03/21/21 22:00 History Brilinta 1 tab PO BID 03/10/21 03/22/21 03/21/21 22:00 History Physical Exam Vital Signs and Narrative: Vital Signs: Last Vital Signs Temp 97.5 F 03/22/21 01:21 Pulse 75 03/22/21 01:26 Resp 16 03/22/21 01:26 BP 163/86 H 03/22/21 01:26 Pulse Ox 99 03/22/21 00:55 Body Mass Index 22.5 Gen: Appears be in no acute distress HEENT: NCAT, Moist mucosa. Pulmonary: Vesicular breath sounds, fair air entry CVS: Normal S1-S2 Abdomen: BS+, Soft, Nontender Extremities: Warm well perfused Neuro: Alert and awake. Moves all extremities Results Labs CBC and Chem 7: 04/03/21 05:24 04/04/21 14:55 Labs: Laboratory Results - last 24 hr 03/22/21 03/22/21 03/22/21 01:09 01:09 01:09 MCV 92.9 MCH 32.6 MCHC 35.1 RDW 12.9 Plt Count 264 D MPV 8.2 L Immature Gran % (Auto) 0.5 H Neut % (Auto) 69.0 Lymph % (Auto) 16.3 L [place] % (Auto) 10.8 Eos % (Auto) 3.0 Baso % (Auto) 0.4 Lymph # (Auto) 1.9 [place] # (Auto) 1.2 Eos # (Auto) 0.4 Baso # (Auto) 0.1 Abs Immat Gran (auto) 0.06 H Absolute Neuts (auto) 7.9 Absolute Nucleated RBC 0.000 Nucleated RBC % (auto) 0.0 Anion Gap 15 Estim Creat Clear Calc 33.2 Estimated GFR 33 Random Glucose 119 H Calcium 9.4 Troponin I High Sens 16.3 B-Natriuretic Peptide 03/22/21 01:09 MCV MCH MCHC RDW Plt Count MPV Immature Gran % (Auto) Neut % (Auto) Lymph % (Auto) [place] % (Auto) Eos % (Auto) Baso % (Auto) Lymph # (Auto) [place] # (Auto) Eos # (Auto) Baso # (Auto) Abs Immat Gran (auto) Absolute Neuts (auto) Absolute Nucleated RBC Nucleated RBC % (auto) Anion Gap Estim Creat Clear Calc Estimated GFR Random Glucose Calcium Troponin I High Sens B-Natriuretic Peptide 34 Imaging Radiologist's Impressions: Impressions Chest X-Ray 03/22/21 01:04 IMPRESSION: No acute pulmonary finding. No displaced fractures are seen. Head CT 03/22/21 01:04 IMPRESSION: No acute intracranial pathology. Chronic right MCA territory infarct. Assessment and Plan (1) Syncope: Status: Acute ,70-year-old male with a past medical history of hypertension, hyperlipidemia, diabetes, coronary artery disease, CKD, history of CVA with left-sided weakness, abdominal aortic aneurysm, recent admission to the hospital for hypertensive urgency presented to the hospital with a chief complaint of fall/near syncope. Patient denies any loss of consciousness. Pre Syncope: Patient reports that the symptoms started after he took in the evening dose of antihypertensives which includes nifedipine [address] head showed no acute findings. Echocardiogram. Telemetry. Patient was orthostatic on presentation. Blood pressure improving. Hold home antihypertensives especially nifedipine which was recently started. Will defer to the a.m. team to consider alternative for nifedipine. Will send urinalysis Mild MALLY on CKD: gentle Fluids. Hold home spironolactone. Gastritis: Pepcid Diabetes: Insulin sliding scale. All other chronic conditions, home medications will be continued DVT prophylaxis: SCD boots Code status: Full code
--- NOTE | 2021-03-22 02:45 | PC.NURSE ---
Covid swab obtained and sent. Med Rec completed by this RN. Pt and family aware of plan to admit.
[2021-03-22 02:53] LABS: COVID-19 Test Negative (Negative); IDNOW Serial# 9DD0AD1C
[2021-03-22] MEDS: 0.9 % Sodium Chloride 1,000 ML 75 ML IVCONT ×2 (03:33→15:13)
--- NOTE | 2021-03-22 03:50 | PC.NURSE ---
This RN calling IMC. [facility]MC to call back when able to take report.
--- NOTE | 2021-03-22 03:57 | PC.NURSE ---
Report given to [facility] RN.
[2021-03-22 05:58] LABS: MANUAL DIFF FLAG NO
[2021-03-22 06:00] LABS: Basophils Percent Auto 0.3 % (0-2); Eosinophils Absolute Auto 0.2 X10*3/uL (0.0-0.4); Eosinophils Percent Auto 1.6 % (0-4); Hematocrit 40.2 % (42-52); Hemoglobin 14.1 g/dl (14.0-18.0); Imm Gran Abs Auto 0.04 X10*3/uL (0.00-0.03); Imm Gran Pct Auto 0.3 % (0.0-0.4); Lymphocytes Absolute Auto 1.5 X10*3/uL (1.2-4.9); Lymphocytes Percent Auto 10.7 % (20-40); Mean Corpuscular HGB Conc 35.1 g/dl (31.0-36.0); Mean Corpuscular Volume 94.1 fL (80-98); Mean Platelet Volume 8.1 fL (9.4-12.4); Monocytes Absolute Auto 1.1 X10*3/uL (0.1-1.2); Neutrophils Absolute Auto 11.3 X10*3/uL (2.0-8.3); Neutrophils Percent Auto 79.1 % (45-73); Platelet Count 253 X10*3/uL (160-400); Red Blood Count 4.27 X10*6/uL (4.60-5.80); White Blood Count 14.3 X10*3/uL (4.8-10.8)
[2021-03-22 06:24] LABS: Anion Gap 14 (12-20); Blood Urea Nitrogen 28 mg/dL (9-16); Calcium 8.9 mg/dL (8.4-10.2); Carbon Dioxide 23 mmol/L (22-29); Chloride 105 mmol/L (96-108); Creatinine Clr Calc Pharmacy 40.1; Estimated Glomerular Filt Rate 42; Glucose Random 162 mg/dL (60-115); Potassium 4.2 mmol/L (3.3-5.1); Sodium 138 mmol/L (135-145)
[2021-03-22 06:49] LABS: Glucose Urine UA 100 MG/DL (NEG); Leukocyte Esterase Urine NEG (NEG); Nitrite Urine NEG (NEG); Specific Gravity - Urine 1.015 (1.005-1.025); Urine Blood TRACE (NEG); Urine Ketones NEG (NEG); Urine Protein 1+ MG/DL (NEG-TRACE)
[2021-03-22 06:51] LABS: Appearance Urine CLEAR; Color Urine YELLOW
[2021-03-22 06:58] LABS: RBC Urine 0-2 /HPF (0); WBC Urine 0 /HPF (0-4)
[2021-03-22] MEDS: Insulin Lispro 100 UNIT/ML 3 ML VIAL SUBCUT ×3 (07:44→20:43)
[2021-03-22] MEDS: 0.9 % Sodium Chloride Flush 3 ML SYRINGE IVFLUSH (07:44)
[2021-03-22 07:47] LABS: Glucose, Whole Blood 160 mg/dL (60-115)
[2021-03-22] MEDS: Emtricitabine/Tenofov Alafenam TABLET 1 TAB PO (08:55)
[2021-03-22] MEDS: Ezetimibe 10 MG TABLET PO (08:55)
[2021-03-22] MEDS: carvediloL 12.5 MG TABLET PO ×2 (08:55→20:39)
[2021-03-22] MEDS: Dorzolamide/Timolo 2.23%/0.68% 10 ML DRBTL 1 DROP EYE-BOTH ×2 (08:55→20:40)
[2021-03-22] MEDS: Baclofen 10 MG TABLET 5 MG PO ×3 (08:55→20:39)
[2021-03-22] MEDS: Aspirin Enteric Coated 81 MG TABLET.DR PO (08:55)
[2021-03-22] MEDS: Escitalopram Oxalate 10 MG TABLET PO (08:55)
[2021-03-22] MEDS: Cholecalciferol (Vitamin D3) 25 MCG TABLET 50 MCG PO (08:55)
[2021-03-22] MEDS: Famotidine/PF 20 MG/2 ML VIAL IVPUSH ×2 (08:56→20:35)
[2021-03-22] MEDS: Ticagrelor 90 MG TABLET PO ×2 (08:56→20:35)
[2021-03-22 11:27] LABS: Glucose, Whole Blood 103 mg/dL (60-115)
--- NOTE | 2021-03-22 15:00 | MHC.CM.PN ---
CM MET WITH PT WHO REPORTS HE LIVES WITH HIS SISTER, BRIAN, AND BRIAN'S FAMILY. HE REPORTS HE NOW USES A [facility]E TO AMBULATE BUT REQUIRES NO OTHER DME. PT REPORTS BEING ACTIVE WITH A [facility] BUT DOES NOT KNOW THE NAME OF THE AGENCY. HE BELIEVES THEY ARE BASED OUT OF [place]. PT REPORTS HIS PCP IS GEMINI CAMPOS AND HE SAYS HE HAS A HCP NAMING HIS SISTER THE PRIMARY. IMM DELIVERED CURRENT DC PLAN IS HOME WITH RESUMPTION OF [facility] FAMILY TO TRANSPORT
[2021-03-22 16:12] LABS: Glucose, Whole Blood 189 mg/dL (60-115)
[2021-03-22 19:54] LABS: Glucose, Whole Blood 271 mg/dL (60-115)
[2021-03-22] MEDS: Melatonin 3 MG TABLET 6 MG PO (20:39)
[2021-03-22] MEDS: Atorvastatin Calcium 80 MG TABLET PO (20:39)
[2021-03-22] MEDS: Latanoprost 0.005 % Ophth Sol 2.5 ML DROPS 1 DROP EYE-BOTH (20:40)
[2021-03-23] VITALS (13 sets, daily range): BP systolic 132–210; BP diastolic 72–93; PULSE 65–74; RESP 18–20; TEMP 36.4–36.8; O2SAT 97–99
[2021-03-23] MEDS: 0.9 % Sodium Chloride 1,000 ML 75 ML IVCONT (03:34)
[2021-03-23 07:33] LABS: Glucose, Whole Blood 167 mg/dL (60-115)
[2021-03-23] MEDS: Cholecalciferol (Vitamin D3) 25 MCG TABLET 50 MCG PO (08:22)
[2021-03-23] MEDS: Ezetimibe 10 MG TABLET PO (08:22)
[2021-03-23] MEDS: Insulin Lispro 100 UNIT/ML 3 ML VIAL SUBCUT ×3 (08:22→19:43)
[2021-03-23] MEDS: Emtricitabine/Tenofov Alafenam TABLET 1 TAB PO (08:22)
[2021-03-23] MEDS: Baclofen 10 MG TABLET 5 MG PO ×3 (08:22→19:44)
[2021-03-23] MEDS: carvediloL 12.5 MG TABLET PO ×2 (08:23→19:44)
[2021-03-23] MEDS: Famotidine/PF 20 MG/2 ML VIAL IVPUSH ×2 (08:23→19:43)
[2021-03-23] MEDS: Escitalopram Oxalate 10 MG TABLET PO (08:23)
[2021-03-23] MEDS: Ticagrelor 90 MG TABLET PO ×2 (08:24→19:44)
[2021-03-23] MEDS: Dorzolamide/Timolo 2.23%/0.68% 10 ML DRBTL 1 DROP EYE-BOTH ×2 (08:32→19:45)
[2021-03-23] MEDS: Aspirin Enteric Coated 81 MG TABLET.DR PO (08:32)
[2021-03-23] MEDS: 0.9 % Sodium Chloride Flush 3 ML SYRINGE IVFLUSH ×3 (08:32→23:07)
--- NOTE | 2021-03-23 10:00 | CA_ITS ---
Transthoracic Echocardiogram Patient (Last, First, Middle): Phan Gipson, Gender: Male Date of : 1950 Age: 70 Procedure Date: 03/23/2021 Procedure Type: Transthoracic Echocardiogram Location: [facility] [place] Height: 172.72 cm Weight: 67.13 kg BSA: 1.80 m2 Heart Rate: bpm BP: 176 / 90 mmHg [employer] Personality: Referring MD: Jose L Beal MD Symptoms: syncope Study Quality: Fair ECG Rhythm: Sinus Conclusions: - Normal left ventricular cavity size. There is moderately increased left ventricular wall thickness. The left ventricular systolic function is hyperdynamic. The visually estimated ejection fraction is >70%. - Normal right ventricular cavity size and systolic function. - The inferior vena cava is normal in size and collapses greater than 50% with inspiration. - There is no evidence of pericardial effusion. Findings Left Ventricle Normal left ventricular cavity size. There is moderately increased left ventricular wall thickness. The left ventricular systolic function is hyperdynamic. The visually estimated ejection fraction is >70%. Abnormal diastolic function is noted. Spectral Doppler is indicative of an impaired relaxation filling pattern. E/E prime ratio is between 8 and 15 consistent with indeterminate filling pressures. Right Ventricle Normal right ventricular cavity size and systolic function. Atria Both atria are normal in size. Aortic Valve There is a normal trileaflet aortic valve. There is mild calcification of the aortic valve. There is no aortic valve stenosis. There is no aortic valve regurgitation. Mitral Valve There is mild mitral annular calcification. There is no mitral valve regurgitation. There is no mitral valve stenosis. Pulmonic Valve The pulmonic valve is likely normal. Tricuspid Valve Normal tricuspid valve structure and function. There is trace tricuspid valve regurgitation. Normal right atrial pressure. There is no evidence of pulmonary hypertension. Great Vessels All visible segments of the aorta are normal in size. The visualized portions of the pulmonary artery and branches are normal. Venous The inferior vena cava is normal in size and collapses greater than 50% with inspiration. Pericardium/Pleural There is no evidence of pericardial effusion. Prior Study Comparison No significant change compared to prior study dated: 11/19/2019. Measurements 2D Linear Measurements IVSd: 1.23 0.6-0.9/0.6-1.0 cm LVIDd: 4.50 3.9-5.3/4.2-5.9 cm LVIDd Index: 2.50 2.4-3.2/2.2-3.1 cm/m2 LVIDs: 2.77 2.0-3.6 cm LVPWd: 1.24 0.7-1.1 cm Ao Root: 3.20 2.1-3.5 cm LA Diam: 3.40 2.7-3.8/3.0-4.0 cm LAIDs Index: 1.89 1.5-2.3 cm/m2 LV Mass: 257.38 67-162/88-224 g LV Mass Index: 142.99 43-95/49-115 g/m2 LVOT Diam: 2.20 3.0+(-)1.3 cm Mitral Valve MV Pk E: 0.54 MV PK A: 0.95 MV Decel Time: 273.00 E/A: 0.60 E'Lateral: 4.57 E'Medial: 4.24 E/E' Med: 12.60 E/E' Lat: 11.70 PHT: 80.00 MVA PHT: 2.75 Decel [place]: 1.96 Aortic Valve AoV Pk Benjamin: 1.30 AoV Mn Benjamin: 0.79 AoV VTI: 0.32 AoV Pk Grad: 7.00 Aov Mn Grad: 3.00 MARY Cont.VTI: 2.72 LVOT LVOT Pk Benjamin: 0.82 LVOT Mn Benjamin: 0.52 LVOT VTI: 0.23 LVOT Pk Grad: 3.00 LVOT Mn Grad: 1.00 LVOT Diam: 2.20 LVOT Area: 3.80 Diastolic Function MV Pk E: 0.54 MV Pk A: 0.95 E/A: 0.60 E'Medial: 4.24 E/E' Med: 12.60 E' Laterial: 4.57 E/E' Lat: 11.70 Tricuspid Valve TR Pk Benjamin: 1.59 TR Pk Grad: 10.00 RA Press: 3.00 RVSP: 13.00 Great Vessels Aorta Ao Root-2D: 3.20 2.0-3.7 cm Ao Asc: 3.00 2.1-3.4 cm Pulmonary Valve PV Pk Benjamin: 1.02 Peak PV Grad: 4.00 Updated in Other Vendor System with Status of Final Barber Bhandari MD electronically signed on 03/23/2021 6:19:34 PM with status of Final
[2021-03-23 11:32] LABS: Glucose, Whole Blood 167 mg/dL (60-115)
[2021-03-23] MEDS: ondansetron HCL 4 MG/2 ML VIAL IVPUSH (11:35)
--- NOTE | 2021-03-23 14:15 | P.PNIM_ITS ---
Subjective Subjective Date of Service: 03/23/21 Interval History: Seen in f/u for dizziness from orthostatic hypOtension and fluctuatin Review of Systems Gen: no fever Resp: no sob, no cough CV: no chest, no GUTIERRES, no leg edema GI: + n/v, no abd pain Neuro: No confusion Physical Exam Vital Signs: Vital Signs: Last Vital Signs Temp 97.6 F 03/23/21 12:00 Pulse 69 03/23/21 12:00 Resp 20 03/23/21 12:00 BP 200/90 H 03/23/21 12:00 Pulse Ox 98 03/23/21 12:00 Body Mass Index 22.5 Constitutional Awake and Alert, No apparent distress Neck Supple, No lymphadenopathy Cardiovascular RRR, No M/R/G, S1 S2, No S3 S4, No pedal edema Respiratory Lungs clear, No respiratory distress Gastrointestinal Non tender, Non-distended Skin No rash Neurological Alert & oriented x3 Psychological Appropriate affect Objective Data Current Medications Generic Name Dose Route Start Last Admin Trade Name Freq PRN Reason Stop Dose Admin Acetaminophen 650 mg 03/22/21 02:25 Acetaminophen 325 Mg Tablet PO Q6H PRN Pain, Mild (Pain Scale 1-3) Albuterol Sulfate 2 puff 03/22/21 04:33 Albuterol Sulfate 90 Mcg 8 Gm Inhaler INHALE Q4H PRN Wheezing Aspirin 81 mg 03/22/21 09:00 03/23/21 08:32 Aspirin Enteric Coated 81 Mg Tablet.Dr PO 81 mg DAILY BILLY Administration Atorvastatin Calcium 80 mg 03/22/21 21:00 03/22/21 20:39 Atorvastatin Calcium 80 Mg Tablet PO 80 mg BEDTIME BILLY Administration Baclofen 5 mg 03/22/21 09:00 03/23/21 14:15 Baclofen 10 Mg Tablet PO 5 mg TID BILLY Administration Carvedilol 12.5 mg 03/22/21 09:00 03/23/21 08:23 Carvedilol 12.5 Mg Tablet PO 12.5 mg BID BILLY Administration Protocol Dorzolamide/Timolol 1 drop 03/22/21 09:00 03/23/21 08:32 Dorzolamide/Timolo 2.23%/0.68% 10 Ml Drbtl EYE-BOTH 1 drop BID BILLY Administration Ezetimibe 10 mg 03/22/21 09:00 03/23/21 08:22 Ezetimibe 10 Mg Tablet PO 10 mg DAILY BILLY Administration Emtricitabine/Tenofovir Alafenamide 1 tab 03/22/21 09:00 03/23/21 08:22 Emtricitabine/Tenofov Alafenam Tablet PO 1 tab DAILY BILLY Administration Escitalopram Oxalate 10 mg 03/22/21 09:00 03/23/21 08:23 Escitalopram Oxalate 10 Mg Tablet PO 10 mg DAILY BILLY Administration Famotidine 20 mg 03/22/21 09:00 03/23/21 08:23 Famotidine/Pf 20 Mg/2 Ml Vial IVPUSH 20 mg BID BILLY Administration Sodium Chloride 1,000 mls @ 75 mls/hr 03/22/21 02:30 03/23/21 03:34 Ns IVCONT 75 mls/hr .[id number] BILLY Administration Insulin Human Lispro 0 unit 03/22/21 07:30 03/23/21 11:56 Insulin Lispro 100 Unit/Ml 3 Ml Vial SUBCUT Not Given QIDACHS [facility] Protocol Latanoprost 1 drop 03/22/21 21:00 03/22/21 20:40 Latanoprost 0.005 % Ophth Sandy 2.5 Ml Drops EYE-BOTH 1 drop BEDTIME BILLY Administration Magnesium Hydroxide 30 ml 03/22/21 02:25 Milk Of Magnesia 30 Ml Oral.Susp PO DAILY PRN Constipation Melatonin 6 mg 03/22/21 21:00 03/22/21 20:39 Melatonin 3 Mg Tablet PO 6 mg BEDTIME BILLY Administration Nitroglycerin 0.4 mg 03/22/21 04:33 Nitroglycerin 0.4 Mg Tab.Subl SUBLINGUAL Q5M PRN Chest Pain Ondansetron HCl 4 mg 03/23/21 09:55 03/23/21 11:35 Ondansetron Hcl 4 Mg/2 Ml Vial IVPUSH 4 mg Q6H PRN Administration Nausea and vomitting Sodium Chloride 3 ml 03/22/21 08:00 03/23/21 08:32 0.9 % Sodium Chloride Flush 3 Ml Syringe IVFLUSH 3 ml QSHIFT BILLY Administration Ticagrelor 90 mg 03/22/21 09:00 03/23/21 08:24 Ticagrelor 90 Mg Tablet PO 90 mg BID [facility] Administration Vitamin D 50 mcg 03/22/21 09:00 06/01/21 08:22 Cholecalciferol (Vitamin D3) 25 Mcg Tablet PO 50 mcg DAILY BILLY Administration Labs CBC & Chem 7: 03/22/21 05:53 03/22/21 05:53 Assessment and Plan (1) Syncope: Status: Acute Assessment and Plan: 70-year-old male with a past medical history of hypertension, hyperlipidemia, diabetes, coronary artery disease, CKD, history of CVA with left-sided weakness, abdominal aortic aneurysm, recent admission to the hospital for hypertensive urgency presented to the hospital with a chief complaint of fall/near syncope. Patient denies any loss of consciousness. Pre Syncope d/t orthostatic hypotension likely related to BP meds, specifically Nifedipin 120 daily and also likely has autonomic insuficiency. -For now hold Nifedipine and follow orthostatic BP, get Nephorlogy to help with management of BP whichis becoming challenging with ups and downs Mild MALLY on CKD: gentle Fluids. Hold home spironolactone., repeat labs tomorrow Gastritis: Pepcid Diabetes: Insulin sliding scale. Nausea, could be d/t high BP but was having these when BP was normal All other chronic conditions, home medications will be continued DVT prophylaxis: SCD boots Code status: Full code
[2021-03-23 15:58] LABS: Glucose, Whole Blood 203 mg/dL (60-115)
[2021-03-23] MEDS: hydrALAZINE HCl 20 MG/ML VIAL 10 MG IVPUSH (16:22)
[2021-03-23] MEDS: Labetalol HCL 100 MG/20 ML VIAL 20 MG IVPUSH (18:01)
--- NOTE | 2021-03-23 19:27 | PC.NURSE ---
Patient's BP elevated at 203 systolic; hospitalist notified, hydralazine IVP given with no effect, BP elevated at 210 systolic. lobetalol IVP given with some effect, BP down to 176 systolic. Patient denied any s/s of hypertension. No further issues.
[2021-03-23] MEDS: Melatonin 3 MG TABLET 6 MG PO (19:44)
[2021-03-23] MEDS: Atorvastatin Calcium 80 MG TABLET PO (19:44)
[2021-03-23] MEDS: Latanoprost 0.005 % Ophth Sol 2.5 ML DROPS 1 DROP EYE-BOTH (19:45)
[2021-03-23 19:50] LABS: Glucose, Whole Blood 273 mg/dL (60-115)
[2021-03-24] VITALS (12 sets, daily range): BP systolic 93–202; BP diastolic 50–92; PULSE 62–77; RESP 18–20; TEMP 36.4–36.9; O2SAT 97–99
[2021-03-24 07:29] LABS: Glucose, Whole Blood 197 mg/dL (60-115)
--- NOTE | 2021-03-24 08:15 | PM.PNNEP ---
Subjective Subjective Date of Service: 04/05/21 Interval history: Events noted BP elevated Physical Exam Vital Signs: Vital Signs: Last Vital Signs Temp 98.1 F 03/24/21 08:00 Pulse 77 03/24/21 08:12 Resp 20 03/24/21 08:00 BP 130/70 03/24/21 08:12 Pulse Ox 98 03/24/21 08:00 Body Mass Index 22.5 Const: General: alert Neck: Neck: Yes no JVD Resp: Auscultation: no rales Cardio: Palpation: no palpable S3 Heart sounds: no murmurs GI: Auscultation: normal bowel sounds Neuro: Motor exam (neuro): No Asterixis during motor activity present Objective Data Labs CBC & Chem 7: 04/03/21 05:24 04/05/21 05:29 Labs: Laboratory Results - last 24 hr 03/23/21 03/23/21 03/23/21 11:10 15:51 19:39 POC Glucose 167 H 203 H 273 H 03/24/21 07:22 POC Glucose 197 H Assessment & Plan Assessment and plan (1) HTN (hypertension): Status: Inactive Assessment and Plan: BP sub optimal Can restart Procardia XL at 60 mg daily and titrate dose Time Spent With Patient Time: Total time spent is greater than 50% in coordination of care (as documented) at patient's floor/unit and/or counseling patient: Procedures Date of Service Date of Service: 03/24/21
[2021-03-24] MEDS: Famotidine/PF 20 MG/2 ML VIAL IVPUSH ×2 (08:32→20:29)
[2021-03-24] MEDS: carvediloL 12.5 MG TABLET PO ×2 (08:33→19:25)
[2021-03-24] MEDS: Ezetimibe 10 MG TABLET PO (08:33)
[2021-03-24] MEDS: Escitalopram Oxalate 10 MG TABLET PO (08:33)
[2021-03-24] MEDS: Aspirin Enteric Coated 81 MG TABLET.DR PO (08:33)
[2021-03-24] MEDS: Emtricitabine/Tenofov Alafenam TABLET 1 TAB PO (08:33)
[2021-03-24] MEDS: NIFEdipine ER 60 MG TAB.ER.24 PO (08:33)
[2021-03-24] MEDS: Cholecalciferol (Vitamin D3) 25 MCG TABLET 50 MCG PO (08:33)
[2021-03-24] MEDS: Ticagrelor 90 MG TABLET PO ×2 (08:33→20:28)
[2021-03-24] MEDS: Baclofen 10 MG TABLET 5 MG PO ×3 (08:33→20:46)
[2021-03-24] MEDS: 0.9 % Sodium Chloride Flush 3 ML SYRINGE IVFLUSH ×3 (08:34→21:29)
[2021-03-24] MEDS: Dorzolamide/Timolo 2.23%/0.68% 10 ML DRBTL 1 DROP EYE-BOTH ×2 (08:34→20:46)
--- NOTE | 2021-03-24 11:07 | CONS_ITS ---
DATE OF SERVICE: 03/23/2021 REASON FOR CONSULTATION: I was called to see this patient to assist in the management of chronic kidney disease and labile hypertension. HISTORY OF PRESENT ILLNESS: To summarize, Chandler has a history of labile hypertension with orthostatic changes. He underwent a 24-hour blood pressure monitoring a few days ago and the results are pending. He has a history of coronary artery disease, left renal artery stenosis, and history of severe left-sided weakness. He comes to the hospital because he had a fall at home. He tried to go up the stairs, was feeling lightheaded at the end of the top floor. At the time he reached the top floor, he tripped and fell. Prior to this, he was on carvedilol 12.5 mg b.i.d. along with nifedipine 120 mg q.p.m. At the time of admission, he was found to have a blood pressure of 77/40 and his BUN and creatinine were significantly elevated from the baseline. BUN was 31, creatinine 1.99 and baseline creatinine is probably around 1.38. Since admission, and with mild hydration, the BUN has decreased to 28 and the creatinine has dropped to 1.65. However, the blood pressure was elevated around 190 mmHg systolic with significant orthostatic change with a standing systolic blood pressure of 119 mmHg and hence this consultation. PAST MEDICAL HISTORY: Ongoing medical problems include history of AAA, coronary artery disease, chronic kidney disease stage 3, CVA, hyperlipidemia, left renal artery stenosis, hypertension with orthostasis, pituitary macroadenoma, history of diabetes mellitus requiring insulin. FAMILY HISTORY: Significant for cardiovascular disease and abdominal aortic aneurysm. No known kidney disease. PAST SURGICAL HISTORY: Includes carotid endarterectomy and coronary angiogram with stent placement. SOCIAL HISTORY: History of smoking for almost 30 years, 1 pack per day. No history of alcohol abuse or drug abuse. MEDICATIONS: At home included aspirin, cholecalciferol, emtricitabine, tenofovir alafenamide, escitalopram, insulin, carvedilol 12.5 b.i.d., melatonin, Brilinta, nifedipine 120 mg. All the current medications were reviewed. ALLERGIES: NO KNOWN DRUG ALLERGIES. REVIEW OF SYSTEMS: Positive for lightheadedness. No headache, nausea, or vomiting. No abdominal pain or constipation. No urinary symptoms. No fever. No rash. PHYSICAL EXAMINATION: GENERAL: Phan is a 70-year-old man, who is comfortable sitting up in chair, not in any distress. NECK: Supple. No JVD. HEENT: Mucosa is dry. LUNGS: Air entry equal. No rales. HEART: S1, S2 heard. No gallop or rub. ABDOMEN: Soft, nontender. EXTREMITIES: No dependent edema. No rash. No clubbing. He has left-sided weakness. No involuntary movements. No myoclonus. VITAL SIGNS: All the blood pressure readings were reviewed. This morning, blood pressure is 132/72. LABORATORY DATA: Serum electrolytes normal. Potassium 4.2, CO2 of 23, BUN 28, creatinine 1.65. Hemoglobin 14.1, WBC 14.3, platelets 253. IMPRESSION: 70-year-old man with cerebrovascular accident and labile hypertension, comes in with a fall and acute kidney injury. Acute kidney injury was due to hypoperfusion from relatively low blood pressure with IV hydration, and optimizing blood pressure, the renal function is improving. He has underlying chronic kidney disease stage 3. Chandler has orthostatic hypotension. Volume depletion might have contributed to this as well. He is currently in the process of undergoing workup for same and 24-hour blood pressure monitoring was done a few days ago and the results are pending. At this point, since he continues to have significantly elevated supine blood pressure, I would start him back on nifedipine at night. I will start him at 50% of the home dose and therefore we will use 60 mg q.p.m. and watch his blood pressure. Monitor for orthostatic changes and use all orthostatic precautions including head elevation at 30 degrees and BENJAMIN stockings. We will follow him along with the team. Cassius Branch MD BPA/MODL / [id number]
--- NOTE | 2021-03-24 11:25 | MHC.CM.PN ---
Per ROUNDS discussion, Patient is not yet medically cleared for dc (Monitoring BP, IV Pepcid). Home/resume VNA is the goal and CM will follow for possible need to adjust the dc plan.
[2021-03-24 11:29] LABS: Glucose, Whole Blood 190 mg/dL (60-115)
--- NOTE | 2021-03-24 13:18 | HO.PM.IMPN ---
Subjective Subjective Date of Service: 03/24/21 Interval History: Seen in f/u for dizziness, orthostatic hypotension, his blood pressure remains high, no symptoms Review of Systems Gen: no fever Resp: no sob, no cough CV: no chest, no GUTIERRES, no leg edema GI: + n/v, no abd pain Neuro: No confusion Physical Exam Vital Signs: Vital Signs: Last Vital Signs Temp 98.4 F 03/24/21 11:34 Pulse 66 03/24/21 11:34 Resp 20 03/24/21 11:34 BP 140/60 H 03/24/21 11:34 Pulse Ox 97 03/24/21 11:34 Body Mass Index 22.5 Const: Other: General: AO X 3, no acute distress Resp: CTA bilateral CVS: S1,S2,RRR GI: +BS, NT, no distention Skin: No rash Neuro: motor grossly intact Psych: appropriate affect Objective Data Current Medications Generic Name Dose Route Start Last Admin Trade Name Freq PRN Reason Stop Dose Admin Acetaminophen 650 mg 03/22/21 02:25 Acetaminophen 325 Mg Tablet PO Q6H PRN Pain, Mild (Pain Scale 1-3) Albuterol Sulfate 2 puff 03/22/21 04:33 Albuterol Sulfate 90 Mcg 8 Gm Inhaler INHALE Q4H PRN Wheezing Aspirin 81 mg 03/22/21 09:00 03/24/21 08:33 Aspirin Enteric Coated 81 Mg Tablet.Dr PO 81 mg DAILY [facility] Administration Atorvastatin Calcium 80 mg 03/22/21 21:00 03/23/21 19:44 Atorvastatin Calcium 80 Mg Tablet PO 80 mg BEDTIME [facility] Administration Baclofen 5 mg 03/22/21 09:00 03/24/21 08:33 Baclofen 10 Mg Tablet PO 5 mg TID [facility] Administration Carvedilol 12.5 mg 03/22/21 09:00 03/24/21 08:33 Carvedilol 12.5 Mg Tablet PO 12.5 mg BID [facility] Administration Protocol Dorzolamide/Timolol 1 drop 03/22/21 09:00 03/24/21 08:34 Dorzolamide/Timolo 2.23%/0.68% 10 Ml Drbtl EYE-BOTH 1 drop BID [facility] Administration Ezetimibe 10 mg 03/22/21 09:00 03/24/21 08:33 Ezetimibe 10 Mg Tablet PO 10 mg DAILY [facility] Administration Emtricitabine/Tenofovir Alafenamide 1 tab 03/22/21 09:00 03/24/21 08:33 Emtricitabine/Tenofov Alafenam Tablet PO 1 tab DAILY [facility] Administration Escitalopram Oxalate 10 mg 03/22/21 09:00 03/24/21 08:33 Escitalopram Oxalate 10 Mg Tablet PO 10 mg DAILY [facility] Administration Famotidine 20 mg 03/22/21 09:00 03/24/21 08:32 Famotidine/Pf 20 Mg/2 Ml Vial IVPUSH 20 mg BID [facility] Administration Insulin Human Lispro 0 unit 03/22/21 07:30 03/24/21 12:35 Insulin Lispro 100 Unit/Ml 3 Ml Vial SUBCUT Not Given QIDACHS [facility] Protocol Latanoprost 1 drop 03/22/21 21:00 03/23/21 19:45 Latanoprost 0.005 % Ophth Sandy 2.5 Ml Drops EYE-BOTH 1 drop BEDTIME [facility] Administration Magnesium Hydroxide 30 ml 03/22/21 02:25 Milk Of Magnesia 30 Ml Oral.Susp PO DAILY PRN Constipation Melatonin 6 mg 03/22/21 21:00 03/23/21 19:44 Melatonin 3 Mg Tablet PO 6 mg BEDTIME [facility] Administration Nifedipine 60 mg 03/24/21 09:00 03/24/21 08:33 Nifedipine Er 60 Mg Tab.Er.24 PO 60 mg DAILY [facility] Administration Protocol Nitroglycerin 0.4 mg 03/22/21 04:33 Nitroglycerin 0.4 Mg Tab.Subl SUBLINGUAL Q5M PRN Chest Pain Ondansetron HCl 4 mg 03/23/21 09:55 03/23/21 11:35 Ondansetron Hcl 4 Mg/2 Ml Vial IVPUSH 4 mg Q6H PRN Administration Nausea and vomitting Sodium Chloride 3 ml 03/22/21 08:00 03/24/21 08:34 0.9 % Sodium Chloride Flush 3 Ml Syringe IVFLUSH 3 ml QSHIFT [facility] Administration Ticagrelor 90 mg 03/22/21 09:00 03/24/21 08:33 Ticagrelor 90 Mg Tablet PO 90 mg BID [facility] Administration Vitamin D 50 mcg 03/22/21 09:00 03/24/21 08:33 Cholecalciferol (Vitamin D3) 25 Mcg Tablet PO 50 mcg DAILY [facility] Administration Labs CBC & Chem 7: 03/22/21 05:53 03/22/21 05:53 Assessment and Plan (1) Syncope: Status: Acute Assessment and Plan: 70-year-old male with a past medical history of hypertension, hyperlipidemia, diabetes, coronary artery disease, CKD, history of CVA with left-sided weakness, abdominal aortic aneurysm, recent admission to the hospital for hypertensive urgency presented to the hospital with a chief complaint of fall/near syncope. Patient denies any loss of consciousness. Pre Syncope d/t orthostatic hypotension likely related to BP meds, specifically Nifedipin 120 daily and also likely has autonomic insuficiency. -For now decrease Nifedipime and follow orthostatic BP. Nephrology following Mild MALLY on CKD: gentle Fluids. Hold home spironolactone., repeat labs HTN--Restarting Nifedipine and continue Coreg Gastritis: Pepcid Diabetes: Insulin sliding scale. Nausea, could be d/t high BP but was having these when BP was normal PT eval All other chronic conditions, home medications will be continued DVT prophylaxis: SCD boots Code status: Full code
[2021-03-24 15:08] LABS: Anion Gap 12 (12-20); Blood Urea Nitrogen 23 mg/dL (9-16); Calcium 8.9 mg/dL (8.4-10.2); Carbon Dioxide 26 mmol/L (22-29); Chloride 102 mmol/L (96-108); Creatinine Clr Calc Pharmacy 38.9; Estimated Glomerular Filt Rate 40; Glucose Random 268 mg/dL (60-115); Potassium 4.3 mmol/L (3.3-5.1); Sodium 136 mmol/L (135-145)
[2021-03-24 16:01] LABS: Glucose, Whole Blood 227 mg/dL (60-115)
[2021-03-24] MEDS: Insulin Lispro 100 UNIT/ML 3 ML VIAL SUBCUT ×2 (17:10→20:29)
[2021-03-24 20:00] LABS: Glucose, Whole Blood 289 mg/dL (60-115)
[2021-03-24] MEDS: Atorvastatin Calcium 80 MG TABLET PO (20:28)
[2021-03-24] MEDS: Melatonin 3 MG TABLET 6 MG PO (20:29)
[2021-03-24] MEDS: Latanoprost 0.005 % Ophth Sol 2.5 ML DROPS 1 DROP EYE-BOTH (20:46)
[2021-03-24] MEDS: hydrALAZINE HCl 20 MG/ML VIAL 5 MG IVPUSH (21:28)
--- NOTE | 2021-03-24 23:29 | P.EN_ITS ---
Event Note Date of Service: 03/24/21 Event Note: received communication from nursing staff that pt wanted to talk to me regarding h is high bp. His at bedside and himself were very upset that his bp has been in the 170s and has not been treated. I spent .30 mins extensively speaking to pt regarding his special situation where he suffers from supine hypertension but has orthostatic hypotension and therefore bp monitoring and management in delicate in his case, and that he also came in with high SBP and therefore dropping his bp significantly is not recommended. 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 I once again explained that he is in acute setting. He received nifidipine as well as coreg 12.5 and liked his bp checked after 2 hrs, which was still in the 170s. because he was very adament about treating his bp i gave him 5 mg of IV hydralazine, and explaining to him that this may drop his bp and cause him further dizziness. His bp did drop to the 130s and he developed orthostatic hypotension on embulation. pt aware of this effect.
--- NOTE | 2021-03-24 23:52 | PC.NURSE ---
Assumed care at 15:00, Patient being treated for symptomatic orthostatic hypotension. Patient SBP ranging 170's for 16:00 vitals on this shift. Patient asymptomatic with elevated BP. Patient concerned about his blood pressure being elevated and not being properly controlled during this hospital stay. At 1845, this nurse and Dr. Woodard discussed the plan of care with the patient and the who was at the bedside in great details. Patient BP remained elevated for 20:00 vitals, 5 mg of IV hydrazine was ordered and given as ordered. The SBP came down to 130's, and then patient became symptomatic (C/o dizziness) when walking to the bathroom, BP then was 93/50. Patient assisted back to bed, and BP supine was 179/82. BP sitting was 132/61 and patient then c/o dizziness. Patient encouraged to use the urinal for the remainder of the night. Call archuleta within reach. Will keep patient bedrest for tonight.
[2021-03-25] VITALS (11 sets, daily range): BP systolic 88–180; BP diastolic 52–88; PULSE 71–78; RESP 16–20; TEMP 36.4–37.1; O2SAT 96–98
[2021-03-25 07:27] LABS: Glucose, Whole Blood 268 mg/dL (60-115)
[2021-03-25] MEDS: 0.9 % Sodium Chloride Flush 3 ML SYRINGE IVFLUSH ×3 (07:54→23:47)
[2021-03-25] MEDS: Insulin Lispro 100 UNIT/ML 3 ML VIAL SUBCUT ×4 (07:54→22:09)
--- NOTE | 2021-03-25 08:55 | PM.PNNEP ---
Subjective Subjective Date of Service: 04/05/21 Interval history: Events noted BP noted Better controlled but orthostatic Physical Exam Vital Signs: Vital Signs: Last Vital Signs Temp 98.2 F 03/25/21 07:42 Pulse 75 03/25/21 07:42 Resp 16 03/25/21 07:42 BP 163/84 H 03/25/21 07:42 Pulse Ox 96 03/25/21 07:42 Body Mass Index 22.5 Const: General: alert Neck: Neck: Yes no JVD Resp: Auscultation: no rales Cardio: Palpation: no palpable S3 Heart sounds: no murmurs GI: Auscultation: normal bowel sounds Neuro: Motor exam (neuro): No Asterixis during motor activity present Objective Data Labs CBC & Chem 7: 04/03/21 05:24 04/05/21 05:29 Labs: Laboratory Results - last 24 hr 03/24/21 03/24/21 03/24/21 11:25 14:15 15:56 Sodium 136 Potassium 4.3 Chloride 102 Carbon Dioxide 26 Anion Gap 12 BUN 23 H Creatinine 1.70 H Estim Creat Clear Calc 38.9 Estimated GFR 40 POC Glucose 190 H 227 H Random Glucose 268 H D Calcium 8.9 03/24/21 03/25/21 19:52 07:19 Sodium Potassium Chloride Carbon Dioxide Anion Gap BUN Creatinine Estim Creat Clear Calc Estimated GFR POC Glucose 289 H 268 H Random Glucose Calcium Assessment & Plan Assessment and plan (1) HTN (hypertension): Status: Inactive Assessment and Plan: BP still sub optimal Keep Procardia XL at 60 mg daily and titrate dose Orthostatic precautions Time Spent With Patient Time: Total time spent is greater than 50% in coordination of care (as documented) at patient's floor/unit and/or counseling patient: Procedures Date of Service Date of Service: 03/25/21
[2021-03-25] MEDS: Ezetimibe 10 MG TABLET PO (09:46)
[2021-03-25] MEDS: Aspirin Enteric Coated 81 MG TABLET.DR PO (09:46)
[2021-03-25] MEDS: Baclofen 10 MG TABLET 5 MG PO ×3 (09:46→22:09)
[2021-03-25] MEDS: Cholecalciferol (Vitamin D3) 25 MCG TABLET 50 MCG PO (09:47)
[2021-03-25] MEDS: Emtricitabine/Tenofov Alafenam TABLET 1 TAB PO (09:47)
[2021-03-25] MEDS: Famotidine/PF 20 MG/2 ML VIAL IVPUSH ×2 (09:48→22:09)
[2021-03-25] MEDS: Escitalopram Oxalate 10 MG TABLET PO (09:49)
[2021-03-25] MEDS: Ticagrelor 90 MG TABLET PO ×2 (09:52→22:08)
[2021-03-25] MEDS: Dorzolamide/Timolo 2.23%/0.68% 10 ML DRBTL 1 DROP EYE-BOTH ×2 (09:54→22:10)
[2021-03-25 11:19] LABS: Glucose, Whole Blood 216 mg/dL (60-115)
--- NOTE | 2021-03-25 13:11 | MHC.STROKE ---
I RECEIVED A MESSAGE THAT THE PATIENT ASKED TO SEE ME, HE IS KNOWN TO THE STROKE SERVICE FROM PRIOR VISITS. HE IS REQUESTING A PHYSICAL THERAPY CONSULT, I DID NOTIFY DR OVIEDO. WE DISCUSSED HIS BP MEDICATIONS, HIS WHY HE GETS SYMPTOMATIC WITH THE FLUCTUATIONS, I ANSWERED HIS QUESTIONS. I WILL FKOLLOW NEEDED.
[2021-03-25 15:59] LABS: Glucose, Whole Blood 226 mg/dL (60-115)
--- NOTE | 2021-03-25 17:24 | P.PNIM_ITS ---
Subjective Subjective Date of Service: 03/25/21 Interval History: Seen in f/u for uncontrolled HTN, and orthosatic hypotension Review of Systems Gen: no fever Resp: no sob, no cough CV: no chest, no GUTIERRES, no leg edema GI: + n/v, no abd pain Neuro: No confusion Physical Exam Vital Signs: Vital Signs: Last Vital Signs Temp 97.7 F 03/25/21 15:09 Pulse 71 03/25/21 15:09 Resp 20 03/25/21 15:09 BP 161/78 H 03/25/21 15:13 Pulse Ox 97 03/25/21 15:09 Body Mass Index 22.5 Const: Other: General: AO X 3, no acute distress Resp: CTA bilateral CVS: S1,S2,RRR GI: +BS, NT, no distention Skin: No rash Neuro: motor grossly intact Psych: appropriate affect Objective Data Current Medications Generic Name Dose Route Start Last Admin Trade Name Freq PRN Reason Stop Dose Admin Acetaminophen 650 mg 03/22/21 02:25 Acetaminophen 325 Mg Tablet PO Q6H PRN Pain, Mild (Pain Scale 1-3) Albuterol Sulfate 2 puff 03/22/21 04:33 Albuterol Sulfate 90 Mcg 8 Gm Inhaler INHALE Q4H PRN Wheezing Aspirin 81 mg 03/22/21 09:00 03/25/21 09:46 Aspirin Enteric Coated 81 Mg Tablet.Dr PO 81 mg DAILY [facility] Administration Atorvastatin Calcium 80 mg 03/22/21 21:00 03/24/21 20:28 Atorvastatin Calcium 80 Mg Tablet PO 80 mg BEDTIME [facility] Administration Baclofen 5 mg 03/22/21 09:00 03/25/21 15:40 Baclofen 10 Mg Tablet PO 5 mg TID BILLY Administration Carvedilol 12.5 mg 03/22/21 09:00 03/25/21 10:03 Carvedilol 12.5 Mg Tablet PO Not Given BID [facility] Protocol Dorzolamide/Timolol 1 drop 03/22/21 09:00 03/25/21 09:54 Dorzolamide/Timolo 2.23%/0.68% 10 Ml Drbtl EYE-BOTH 1 drop BID [facility] Administration Ezetimibe 10 mg 03/22/21 09:00 03/25/21 09:46 Ezetimibe 10 Mg Tablet PO 10 mg DAILY [facility] Administration Emtricitabine/Tenofovir Alafenamide 1 tab 03/22/21 09:00 03/25/21 09:47 Emtricitabine/Tenofov Alafenam Tablet PO 1 tab DAILY [facility] Administration Escitalopram Oxalate 10 mg 03/22/21 09:00 03/25/21 09:49 Escitalopram Oxalate 10 Mg Tablet PO 10 mg DAILY [facility] Administration Famotidine 20 mg 03/22/21 09:00 03/25/21 09:48 Famotidine/Pf 20 Mg/2 Ml Vial IVPUSH 20 mg BID [facility]Y Administration Insulin Human Lispro 0 unit 03/22/21 07:30 03/25/21 16:51 Insulin Lispro 100 Unit/Ml 3 Ml Vial SUBCUT 4 unit QIDACHS [facility] Administration Protocol Latanoprost 1 drop 03/22/21 21:00 03/24/21 20:46 Latanoprost 0.005 % Ophth Sandy 2.5 Ml Drops EYE-BOTH 1 drop BEDTIME [facility] Administration Magnesium Hydroxide 30 ml 03/22/21 02:25 Milk Of Magnesia 30 Ml Oral.Susp PO DAILY PRN Constipation Melatonin 6 mg 03/22/21 21:00 03/24/21 20:29 Melatonin 3 Mg Tablet PO 6 mg BEDTIME [facility] Administration Nifedipine 60 mg 03/24/21 09:00 03/25/21 10:04 Nifedipine Er 60 Mg Tab.Er.24 PO Not Given DAILY [facility] Protocol Nitroglycerin 0.4 mg 03/22/21 04:33 Nitroglycerin 0.4 Mg Tab.Subl SUBLINGUAL Q5M PRN Chest Pain Ondansetron HCl 4 mg 03/23/21 09:55 03/23/21 11:35 Ondansetron Hcl 4 Mg/2 Ml Vial IVPUSH 4 mg Q6H PRN Administration Nausea and vomitting Sodium Chloride 3 ml 03/22/21 08:00 03/25/21 15:41 0.9 % Sodium Chloride Flush 3 Ml Syringe IVFLUSH 3 ml QSHIFT [facility] Administration Ticagrelor 90 mg 03/22/21 09:00 03/25/21 09:52 Ticagrelor 90 Mg Tablet PO 90 mg BID [facility] Administration Vitamin D 50 mcg 03/22/21 09:00 03/25/21 09:47 Cholecalciferol (Vitamin D3) 25 Mcg Tablet PO 50 mcg DAILY [facility] Administration Labs CBC & Chem 7: 03/22/21 05:53 03/24/21 14:15 Assessment and Plan (1) Syncope: Status: Acute Assessment and Plan: 70-year-old male with a past medical history of hypertension, hyperlipidemia, diabetes, coronary artery disease, CKD, history of CVA with left-sided weakness, abdominal aortic aneurysm, recent admission to the hospital for hypertensive urgency presented to the hospital with a chief complaint of fall/near syncope. Patient denies any loss of consciousness. Pre Syncope d/t orthostatic hypotension likely related to BP meds, specifically Nifedipin 120 daily and also likely has autonomic insuficiency. -For now continue Nifedipine at 60 and follow orthostatic BP which was still very significant today. Nephrology following Mild MALLY on CKD: Repeat lab on 03/24 was better and Creatinine near baseline and will continue to monitor HTN--Restarting Nifedipine and continue Coreg Gastritis: Pepcid Diabetes: Insulin sliding scale. Nausea, seem much better, treat symptomatically PT eval for gen weakness, would avoid extensive PT if orthostatic hypotension remains significantl, especally with symptoms All other chronic conditions, home medications will be continued DVT prophylaxis: SCD boots Code status: Full code
[2021-03-25 20:11] LABS: Glucose, Whole Blood 308 mg/dL (60-115)
[2021-03-25] MEDS: Melatonin 3 MG TABLET 6 MG PO (22:08)
[2021-03-25] MEDS: Atorvastatin Calcium 80 MG TABLET PO (22:09)
[2021-03-25] MEDS: Latanoprost 0.005 % Ophth Sol 2.5 ML DROPS 1 DROP EYE-BOTH (22:10)
[2021-03-26] VITALS (19 sets, daily range): BP systolic 111–200; BP diastolic 55–93; PULSE 66–79; RESP 18–20; TEMP 36.2–37.1; O2SAT 96–100
[2021-03-26 07:27] LABS: Glucose, Whole Blood 237 mg/dL (60-115)
[2021-03-26] MEDS: Insulin Lispro 100 UNIT/ML 3 ML VIAL SUBCUT ×4 (07:34→20:23)
[2021-03-26] MEDS: 0.9 % Sodium Chloride Flush 3 ML SYRINGE IVFLUSH ×3 (07:35→20:24)
[2021-03-26] MEDS: Emtricitabine/Tenofov Alafenam TABLET 1 TAB PO (08:46)
[2021-03-26] MEDS: Aspirin Enteric Coated 81 MG TABLET.DR PO (08:46)
[2021-03-26] MEDS: NIFEdipine ER 60 MG TAB.ER.24 PO (08:46)
[2021-03-26] MEDS: Ezetimibe 10 MG TABLET PO (08:46)
[2021-03-26] MEDS: Cholecalciferol (Vitamin D3) 25 MCG TABLET 50 MCG PO (08:46)
[2021-03-26] MEDS: carvediloL 12.5 MG TABLET PO ×2 (08:46→20:22)
[2021-03-26] MEDS: Escitalopram Oxalate 10 MG TABLET PO (08:46)
[2021-03-26] MEDS: Baclofen 10 MG TABLET 5 MG PO ×3 (08:46→20:22)
[2021-03-26] MEDS: Famotidine/PF 20 MG/2 ML VIAL IVPUSH ×2 (08:47→20:21)
[2021-03-26] MEDS: Ticagrelor 90 MG TABLET PO ×2 (08:47→20:22)
[2021-03-26] MEDS: Dorzolamide/Timolo 2.23%/0.68% 10 ML DRBTL 1 DROP EYE-BOTH ×2 (08:48→21:21)
[2021-03-26 11:09] LABS: Glucose, Whole Blood 229 mg/dL (60-115)
--- NOTE | 2021-03-26 12:03 | PM.PNNEP ---
Subjective Subjective Date of Service: 03/26/21 Interval history: Seen in f/u for uncontrolled HTN, and orthosatic hypotension Still with Orthostasis Physical Exam Vital Signs: Vital Signs: Last Vital Signs Temp 98.7 F 03/26/21 11:07 Pulse 79 03/26/21 11:07 Resp 20 03/26/21 11:07 BP 170/78 H 03/26/21 11:07 Pulse Ox 98 03/26/21 11:07 Body Mass Index 22.5 Const: General: alert Neck: Neck: Yes no JVD Resp: Auscultation: no rales Cardio: Palpation: no palpable S3 Heart sounds: no murmurs GI: Auscultation: normal bowel sounds Neuro: Motor exam (neuro): No Asterixis during motor activity present Objective Data Labs CBC & Chem 7: 04/01/21 05:30 03/31/21 05:24 Labs: Laboratory Results - last 24 hr 03/25/21 03/25/21 03/26/21 15:53 20:05 07:16 POC Glucose 226 H 308 H 237 H 03/26/21 11:01 POC Glucose 229 H Assessment & Plan Time Spent With Patient Time: Total time spent is greater than 50% in coordination of care (as documented) at patient's floor/unit and/or counseling patient: Procedures Date of Service Date of Service: 03/26/21
--- NOTE | 2021-03-26 13:58 | HO.PM.IMPN ---
Subjective Subjective Date of Service: 03/26/21 Interval History: Seen in f/u for uncontrolled HTN, and orthosatic hypotension, and flucutating blood pressure. He is feeling better and BPs are much better Review of Systems Gen: no fever Resp: no sob, no cough CV: no chest, no GUTIERRES, no leg edema GI: + n/v, no abd pain Neuro: No confusion Physical Exam Vital Signs: Vital Signs: Last Vital Signs Temp 98.7 F 03/26/21 11:07 Pulse 79 03/26/21 11:07 Resp 20 03/26/21 11:07 BP 111/58 L 03/26/21 13:07 Pulse Ox 98 03/26/21 11:07 Body Mass Index 22.5 Const: Other: General: AO X 3, no acute distress Resp: CTA bilateral CVS: S1,S2,RRR GI: +BS, NT, no distention Skin: No rash Neuro: motor grossly intact Psych: appropriate affect Objective Data Current Medications Generic Name Dose Route Start Last Admin Trade Name Freq PRN Reason Stop Dose Admin Acetaminophen 650 mg 03/22/21 02:25 Acetaminophen 325 Mg Tablet PO Q6H PRN Pain, Mild (Pain Scale 1-3) Albuterol Sulfate 2 puff 03/22/21 04:33 Albuterol Sulfate 90 Mcg 8 Gm Inhaler INHALE Q4H PRN Wheezing Aspirin 81 mg 03/22/21 09:00 03/26/21 08:46 Aspirin Enteric Coated 81 Mg Tablet.Dr PO 81 mg DAILY [facility] Administration Atorvastatin Calcium 80 mg 03/22/21 21:00 03/25/21 22:09 Atorvastatin Calcium 80 Mg Tablet PO 80 mg BEDTIME [facility] Administration Baclofen 5 mg 03/22/21 09:00 03/26/21 08:46 Baclofen 10 Mg Tablet PO 5 mg TID [facility] Administration Carvedilol 12.5 mg 03/22/21 09:00 03/26/21 08:46 Carvedilol 12.5 Mg Tablet PO 12.5 mg BID [facility] Administration Protocol Dorzolamide/Timolol 1 drop 03/22/21 09:00 03/26/21 08:48 Dorzolamide/Timolo 2.23%/0.68% 10 Ml Drbtl EYE-BOTH 1 drop BID [facility] Administration Ezetimibe 10 mg 03/22/21 09:00 03/26/21 08:46 Ezetimibe 10 Mg Tablet PO 10 mg DAILY [facility] Administration Emtricitabine/Tenofovir Alafenamide 1 tab 03/22/21 09:00 03/26/21 08:46 Emtricitabine/Tenofov Alafenam Tablet PO 1 tab DAILY [facility] Administration Escitalopram Oxalate 10 mg 03/22/21 09:00 03/26/21 08:46 Escitalopram Oxalate 10 Mg Tablet PO 10 mg DAILY [facility] Administration Famotidine 20 mg 03/22/21 09:00 03/26/21 08:47 Famotidine/Pf 20 Mg/2 Ml Vial IVPUSH 20 mg BID [facility] Administration Insulin Human Lispro 0 unit 03/22/21 07:30 03/26/21 11:35 Insulin Lispro 100 Unit/Ml 3 Ml Vial SUBCUT 4 unit QIDACHS [facility] Administration Protocol Latanoprost 1 drop 03/22/21 21:00 03/25/21 22:10 Latanoprost 0.005 % Ophth Sandy 2.5 Ml Drops EYE-BOTH 1 drop BEDTIME [facility] Administration Magnesium Hydroxide 30 ml 03/22/21 02:25 Milk Of Magnesia 30 Ml Oral.Susp PO DAILY PRN Constipation Melatonin 6 mg 03/22/21 21:00 03/25/21 22:08 Melatonin 3 Mg Tablet PO 6 mg BEDTIME [facility] Administration Nifedipine 60 mg 03/24/21 09:00 03/26/21 08:46 Nifedipine Er 60 Mg Tab.Er.24 PO 60 mg DAILY [facility] Administration Protocol Nitroglycerin 0.4 mg 03/22/21 04:33 Nitroglycerin 0.4 Mg Tab.Subl SUBLINGUAL Q5M PRN Chest Pain Ondansetron HCl 4 mg 03/23/21 09:55 03/23/21 11:35 Ondansetron Hcl 4 Mg/2 Ml Vial IVPUSH 4 mg Q6H PRN Administration Nausea and vomitting Sodium Chloride 3 ml 03/22/21 08:00 03/26/21 07:35 0.9 % Sodium Chloride Flush 3 Ml Syringe IVFLUSH 3 ml QSHIFT [facility] Administration Ticagrelor 90 mg 03/22/21 09:00 03/26/21 08:47 Ticagrelor 90 Mg Tablet PO 90 mg BID [facility] Administration Vitamin D 50 mcg 03/22/21 09:00 03/26/21 08:46 Cholecalciferol (Vitamin D3) 25 Mcg Tablet PO 50 mcg DAILY [facility] Administration Labs CBC & Chem 7: 03/22/21 05:53 03/24/21 14:15 Assessment and Plan (1) Syncope: Status: Acute Assessment and Plan: 70-year-old male with a past medical history of hypertension, hyperlipidemia, diabetes, coronary artery disease, CKD, history of CVA with left-sided weakness, abdominal aortic aneurysm, recent admission to the hospital for hypertensive urgency presented to the hospital with a chief complaint of fall/near syncope. Patient denies any loss of consciousness. Pre Syncope d/t orthostatic hypotension likely related to BP meds, specifically Nifedipin 120 daily and also likely has autonomic insuficiency. -For now continue Nifedipine at 60 and follow orthostatic BP which was still very significant today. Nephrology following Mild MALLY on CKD: Repeat lab on 03/24 was better and Creatinine near baseline and will continue to monitor HTN--continue Nifedipine and continue Coreg--avoid lowering BP too much Gastritis: Pepcid Diabetes: Insulin sliding scale, on Tresiba at home, BS are moderatly high Nausea, seem much better, treat symptomatically PT eval for gen weakness, would avoid extensive PT if orthostatic hypotension remains significantl, especally with symptoms All other chronic conditions, home medications will be continued DVT prophylaxis: SCD boots Code status: Full code
[2021-03-26 16:18] LABS: Glucose, Whole Blood 265 mg/dL (60-115)
[2021-03-26 19:38] LABS: Glucose, Whole Blood 372 mg/dL (60-115)
[2021-03-26] MEDS: Atorvastatin Calcium 80 MG TABLET PO (20:22)
[2021-03-26] MEDS: Melatonin 3 MG TABLET 6 MG PO (20:23)
[2021-03-26] MEDS: Latanoprost 0.005 % Ophth Sol 2.5 ML DROPS 1 DROP EYE-BOTH (21:21)
[2021-03-27] VITALS (13 sets, daily range): BP systolic 103–175; BP diastolic 58–85; PULSE 65–79; RESP 18–19; TEMP 35.8–36.9; O2SAT 95–98
[2021-03-27 07:00] LABS: Glucose, Whole Blood 219 mg/dL (60-115)
[2021-03-27] MEDS: Ezetimibe 10 MG TABLET PO (07:46)
[2021-03-27] MEDS: Baclofen 10 MG TABLET 5 MG PO ×3 (07:46→20:44)
[2021-03-27] MEDS: Aspirin Enteric Coated 81 MG TABLET.DR PO (07:46)
[2021-03-27] MEDS: Cholecalciferol (Vitamin D3) 25 MCG TABLET 50 MCG PO (07:46)
[2021-03-27] MEDS: NIFEdipine ER 60 MG TAB.ER.24 PO (07:46)
[2021-03-27] MEDS: Ticagrelor 90 MG TABLET PO ×2 (07:46→20:44)
[2021-03-27] MEDS: Emtricitabine/Tenofov Alafenam TABLET 1 TAB PO ×2 (07:46→07:50)
[2021-03-27] MEDS: carvediloL 12.5 MG TABLET PO ×2 (07:46→20:45)
[2021-03-27] MEDS: Escitalopram Oxalate 10 MG TABLET PO (07:46)
[2021-03-27] MEDS: Insulin Lispro 100 UNIT/ML 3 ML VIAL SUBCUT ×4 (07:50→20:44)
[2021-03-27] MEDS: Famotidine/PF 20 MG/2 ML VIAL IVPUSH ×2 (07:50→20:44)
[2021-03-27] MEDS: 0.9 % Sodium Chloride Flush 3 ML SYRINGE IVFLUSH ×3 (07:51→20:47)
[2021-03-27] MEDS: Dorzolamide/Timolo 2.23%/0.68% 10 ML DRBTL 1 DROP EYE-BOTH ×2 (07:51→20:47)
[2021-03-27 09:42] LABS: Anion Gap 15 (12-20); Blood Urea Nitrogen 21 mg/dL (9-16); Calcium 9.2 mg/dL (8.4-10.2); Carbon Dioxide 22 mmol/L (22-29); Chloride 104 mmol/L (96-108); Creatinine Clr Calc Pharmacy 43.2; Estimated Glomerular Filt Rate 45; Glucose Random 258 mg/dL (60-115); Potassium 4.1 mmol/L (3.3-5.1); Sodium 137 mmol/L (135-145)
[2021-03-27 11:03] LABS: Glucose, Whole Blood 323 mg/dL (60-115)
--- NOTE | 2021-03-27 15:31 | PM.PNNEP ---
Subjective Subjective Date of Service: 03/27/21 Interval history: Feels better. Events noted. All recent data reviewed Physical Exam Vital Signs: Vital Signs: Last Vital Signs Temp 98.5 F 03/27/21 15:19 Pulse 75 03/27/21 15:28 Resp 19 03/27/21 15:19 BP 171/81 H 03/27/21 15:28 Pulse Ox 98 03/27/21 15:19 Body Mass Index 22.5 Const: General: no acute distress Eyes: EOM: EOMs intact bilaterally Resp: Auscultation: diminished lung sounds Cardio: Jugular venous distension: no JVD GI: Palpation (GI): Soft to palpation Neuro: General: moves all extremities Objective Data Labs CBC & Chem 7: 03/22/21 05:53 03/27/21 08:12 Labs: Laboratory Results - last 24 hr 03/26/21 03/26/21 03/27/21 16:11 19:34 06:53 Sodium Potassium Chloride Carbon Dioxide Anion Gap BUN Creatinine Estim Creat Clear Calc Estimated GFR POC Glucose 265 H 372 H* 219 H Random Glucose Calcium 03/27/21 03/27/21 08:12 10:54 Sodium 137 Potassium 4.1 Chloride 104 Carbon Dioxide 22 Anion Gap 15 BUN 21 H Creatinine 1.53 H Estim Creat Clear Calc 43.2 Estimated GFR 45 POC Glucose 323 H Random Glucose 258 H Calcium 9.2 Assessment & Plan Assessment and plan (1) CKD (chronic kidney disease) stage 3, GFR 30-59 ml/min: Status: Acute Assessment and Plan: Has CKD 3 at baseline- Renal functions at baseline BP still fluctuant. Could start lisinopril 2.5 mg daily Continue rest of supportive care. Shall follow along Time Spent With Patient Time: Total time spent is greater than 50% in coordination of care (as documented) at patient's floor/unit and/or counseling patient: Procedures Date of Service Date of Service: 03/27/21
[2021-03-27 15:34] LABS: Glucose, Whole Blood 381 mg/dL (60-115)
[2021-03-27 16:38] LABS: Glucose, Whole Blood 379 mg/dL (60-115)
--- NOTE | 2021-03-27 17:33 | PC.NURSE ---
Pt still ortho + Got pt OOB to chair this am where he remained for a few hours Walked to bathroom one 1 assist w/cane - did fairly well but still wobbly Pt better if sits at bedside for 1-2 min before going to laying to standing to walk - did that once and had to sit down immediately Pt is good spirits at this time
[2021-03-27 20:37] LABS: Glucose, Whole Blood 337 mg/dL (60-115)
[2021-03-27] MEDS: Melatonin 3 MG TABLET 6 MG PO (20:44)
[2021-03-27] MEDS: Atorvastatin Calcium 80 MG TABLET PO (20:47)
[2021-03-27] MEDS: Latanoprost 0.005 % Ophth Sol 2.5 ML DROPS 1 DROP EYE-BOTH (20:47)
[2021-03-28] VITALS (10 sets, daily range): BP systolic 78–190; BP diastolic 52–93; PULSE 66–88; RESP 18–20; TEMP 36.5–36.8; O2SAT 94–98
[2021-03-28 06:58] LABS: Glucose, Whole Blood 275 mg/dL (60-115)
[2021-03-28] MEDS: 0.9 % Sodium Chloride Flush 3 ML SYRINGE IVFLUSH ×3 (08:36→20:50)
[2021-03-28] MEDS: Insulin Lispro 100 UNIT/ML 3 ML VIAL SUBCUT ×4 (08:36→20:48)
[2021-03-28] MEDS: Ticagrelor 90 MG TABLET PO ×2 (08:37→20:49)
[2021-03-28] MEDS: NIFEdipine ER 60 MG TAB.ER.24 PO (08:37)
[2021-03-28] MEDS: carvediloL 12.5 MG TABLET PO ×2 (08:37→20:49)
[2021-03-28] MEDS: Cholecalciferol (Vitamin D3) 25 MCG TABLET 50 MCG PO (08:37)
[2021-03-28] MEDS: Famotidine/PF 20 MG/2 ML VIAL IVPUSH ×2 (08:37→20:47)
[2021-03-28] MEDS: Ezetimibe 10 MG TABLET PO (08:38)
[2021-03-28] MEDS: Baclofen 10 MG TABLET 5 MG PO ×3 (08:38→20:47)
[2021-03-28] MEDS: Aspirin Enteric Coated 81 MG TABLET.DR PO (08:39)
[2021-03-28] MEDS: Escitalopram Oxalate 10 MG TABLET PO (08:39)
[2021-03-28] MEDS: Emtricitabine/Tenofov Alafenam TABLET 1 TAB PO (08:39)
[2021-03-28] MEDS: Dorzolamide/Timolo 2.23%/0.68% 10 ML DRBTL 1 DROP EYE-BOTH ×2 (08:40→20:50)
[2021-03-28 11:03] LABS: Glucose, Whole Blood 252 mg/dL (60-115)
--- NOTE | 2021-03-28 11:34 | HO.PM.IMPN ---
Subjective Subjective Date of Service: 03/28/21 Interval History: Seen in f/u for orthostatic hypotension, he's still has wicked orthostatic hypostension, SBP dropped from 168 to 78 this morning. Review of Systems Gen: no fever Resp: no sob, no cough CV: no chest, no GUTIERRES, no leg edema GI: + n/v, no abd pain Neuro: No confusion Physical Exam Vital Signs: Vital Signs: Last Vital Signs Temp 97.9 F 03/28/21 11:29 Pulse 72 03/28/21 11:29 Resp 18 03/28/21 11:29 BP 180/90 H 03/28/21 11:29 Pulse Ox 97 03/28/21 11:29 Body Mass Index 22.5 Const: Other: General: AO X 3, no acute distress Resp: CTA bilateral CVS: S1,S2,RRR GI: +BS, NT, no distention Skin: No rash Neuro: motor grossly intact Psych: appropriate affect Objective Data Current Medications Generic Name Dose Route Start Last Admin Trade Name Gucciq PRN Reason Stop Dose Admin Acetaminophen 650 mg 03/22/21 02:25 Acetaminophen 325 Mg Tablet PO Q6H PRN Pain, Mild (Pain Scale 1-3) Albuterol Sulfate 2 puff 03/22/21 04:33 Albuterol Sulfate 90 Mcg 8 Gm Inhaler INHALE Q4H PRN Wheezing Aspirin 81 mg 03/22/21 09:00 03/28/21 08:39 Aspirin Enteric Coated 81 Mg Tablet.Dr PO 81 mg DAILY BILLY Administration Atorvastatin Calcium 80 mg 03/22/21 21:00 03/27/21 20:47 Atorvastatin Calcium 80 Mg Tablet PO 80 mg BEDTIME BILLY Administration Baclofen 5 mg 03/22/21 09:00 03/28/21 08:38 Baclofen 10 Mg Tablet PO 5 mg TID BILLY Administration Carvedilol 12.5 mg 03/22/21 09:00 03/28/21 08:37 Carvedilol 12.5 Mg Tablet PO 12.5 mg BID BILLY Administration Protocol Dorzolamide/Timolol 1 drop 03/22/21 09:00 03/28/21 08:40 Dorzolamide/Timolo 2.23%/0.68% 10 Ml Drbtl EYE-BOTH 1 drop BID BILLY Administration Ezetimibe 10 mg 03/22/21 09:00 03/28/21 08:38 Ezetimibe 10 Mg Tablet PO 10 mg DAILY BILLY Administration Emtricitabine/Tenofovir Alafenamide 1 tab 03/22/21 09:00 03/28/21 08:39 Emtricitabine/Tenofov Alafenam Tablet PO 1 tab DAILY BILLY Administration Escitalopram Oxalate 10 mg 03/22/21 09:00 03/28/21 08:39 Escitalopram Oxalate 10 Mg Tablet PO 10 mg DAILY BILLY Administration Famotidine 20 mg 03/22/21 09:00 03/28/21 08:37 Famotidine/Pf 20 Mg/2 Ml Vial IVPUSH 20 mg BID BILLY Administration Insulin Human Lispro 0 unit 03/22/21 07:30 03/28/21 08:36 Insulin Lispro 100 Unit/Ml 3 Ml Vial SUBCUT 6 unit QIDACHS [facility] Administration Protocol Latanoprost 1 drop 03/22/21 21:00 03/27/21 20:47 Latanoprost 0.005 % Ophth Sandy 2.5 Ml Drops EYE-BOTH 1 drop BEDTIME [facility] Administration Magnesium Hydroxide 30 ml 03/22/21 02:25 Milk Of Magnesia 30 Ml Oral.Susp PO DAILY PRN Constipation Melatonin 6 mg 03/22/21 21:00 03/27/21 20:44 Melatonin 3 Mg Tablet PO 6 mg BEDTIME [facility] Administration Nifedipine 60 mg 03/24/21 09:00 03/28/21 08:37 Nifedipine Er 60 Mg Tab.Er.24 PO 60 mg DAILY BILLY Administration Protocol Nitroglycerin 0.4 mg 03/22/21 04:33 Nitroglycerin 0.4 Mg Tab.Subl SUBLINGUAL Q5M PRN Chest Pain Ondansetron HCl 4 mg 03/23/21 09:55 03/23/21 11:35 Ondansetron Hcl 4 Mg/2 Ml Vial IVPUSH 4 mg Q6H PRN Administration Nausea and vomitting Sodium Chloride 3 ml 03/22/21 08:00 03/28/21 08:36 0.9 % Sodium Chloride Flush 3 Ml Syringe IVFLUSH 3 ml QSHIFT [facility] Administration Ticagrelor 90 mg 03/22/21 09:00 03/28/21 08:37 Ticagrelor 90 Mg Tablet PO 90 mg BID BILLY Administration Vitamin D 50 mcg 03/22/21 09:00 03/28/21 08:37 Cholecalciferol (Vitamin D3) 25 Mcg Tablet PO 50 mcg DAILY BILLY Administration Labs CBC & Chem 7: 03/22/21 05:53 03/27/21 08:12 Assessment and Plan (1) Syncope: Status: Acute Assessment and Plan: 70-year-old male with a past medical history of hypertension, hyperlipidemia, diabetes, coronary artery disease, CKD, history of CVA with left-sided weakness, abdominal aortic aneurysm, recent admission to the hospital for hypertensive urgency presented to the hospital with a chief complaint of fall/near syncope. Patient denies any loss of consciousness. Pre Syncope d/t orthostatic hypotension likely related to BP meds and autonomic dysfunction. Nifedipine has been reduced from 120 to 60, yet continues to be orthostatic and at the same time BPs can be very highs. g Mild MALLY on CKD: Repeat lab on 03/24 was better and Creatinine near baseline and will continue to monitor HTN--continue Nifedipine and continue Coreg--No change for now , hold aldactone Gastritis: Pepcid Diabetes: Insulin sliding scale, on Tresiba 45 at home ( replace with Lantus 10 for now and adjust for optimal BS), SSI Nausea, seem much better, treat symptomatically PT eval for gen weakness, would avoid extensive PT if orthostatic hypotension remains significantl, especally with symptoms All other chronic conditions, home medications will be continued DVT prophylaxis: SCD boots Code status: Full code
[2021-03-28] MEDS: Insulin Glargine,Hum.rec.anlog 100 UNIT/ML 10 ML VIAL 10 UNIT SUBCUT (12:18)
--- NOTE | 2021-03-28 15:53 | PM.PNNEP ---
Subjective Subjective Date of Service: 03/28/21 Interval history: Seen today. Events noted. Still has orthostasis without tachycardia Physical Exam Vital Signs: Vital Signs: Last Vital Signs Temp 97.9 F 03/28/21 15:06 Pulse 66 03/28/21 15:06 Resp 20 03/28/21 15:06 BP 180/86 H 03/28/21 15:06 Pulse Ox 97 03/28/21 15:06 Body Mass Index 22.5 Const: General: no acute distress Orientation/consciousness: patient oriented x3 Eyes: EOM: EOMs intact bilaterally Neck: Neck: Yes supple Resp: Auscultation: diminished lung sounds Cardio: Jugular venous distension: no JVD GI: Palpation (GI): Soft to palpation Neuro: General: patient oriented x3 and moves all extremities Objective Data Labs CBC & Chem 7: 03/22/21 05:53 03/27/21 08:12 Labs: Laboratory Results - last 24 hr 03/27/21 03/27/21 03/28/21 16:34 20:33 06:54 POC Glucose 379 H* 337 H 275 H 03/28/21 11:00 POC Glucose 252 H Assessment & Plan Assessment and plan (1) CKD (chronic kidney disease) stage 3, GFR 30-59 ml/min: Status: Acute Assessment and Plan: Renal function at baseline Continues to have orthostasis without tachycardia DDx- ? Shy Drager ( has some parkinsons features ??) vs ? Destiny receptor issue Needs to look at the recent 24 hour BPM he had as outpt Clearly has renovascular disease; So ACEI a better choice when we can start it BENJAMIN stockings. Shall follow up Time Spent With Patient Time: Total time spent is greater than 50% in coordination of care (as documented) at patient's floor/unit and/or counseling patient: Procedures Date of Service Date of Service: 03/28/21
[2021-03-28 16:01] LABS: Glucose, Whole Blood 282 mg/dL (60-115)
[2021-03-28 20:44] LABS: Glucose, Whole Blood 340 mg/dL (60-115)
[2021-03-28] MEDS: Melatonin 3 MG TABLET 6 MG PO (20:47)
[2021-03-28] MEDS: Atorvastatin Calcium 80 MG TABLET PO (20:48)
[2021-03-28] MEDS: Latanoprost 0.005 % Ophth Sol 2.5 ML DROPS 1 DROP EYE-BOTH (20:50)
[2021-03-29] VITALS (16 sets, daily range): BP systolic 109–187; BP diastolic 63–88; PULSE 70–85; RESP 15–18; TEMP 36.2–36.6; O2SAT 96–98
[2021-03-29 07:23] LABS: Glucose, Whole Blood 244 mg/dL (60-115)
[2021-03-29] MEDS: Aspirin Enteric Coated 81 MG TABLET.DR PO (07:56)
[2021-03-29] MEDS: Emtricitabine/Tenofov Alafenam TABLET 1 TAB PO (07:56)
[2021-03-29] MEDS: Ticagrelor 90 MG TABLET PO ×2 (07:56→20:30)
[2021-03-29] MEDS: carvediloL 12.5 MG TABLET PO (07:56)
[2021-03-29] MEDS: NIFEdipine ER 60 MG TAB.ER.24 PO (07:57)
[2021-03-29] MEDS: Cholecalciferol (Vitamin D3) 25 MCG TABLET 50 MCG PO (07:57)
[2021-03-29] MEDS: Ezetimibe 10 MG TABLET PO (07:58)
[2021-03-29] MEDS: Baclofen 10 MG TABLET 5 MG PO ×3 (07:58→20:30)
[2021-03-29] MEDS: Insulin Glargine,Hum.rec.anlog 100 UNIT/ML 10 ML VIAL 10 UNIT SUBCUT (07:59)
[2021-03-29] MEDS: Famotidine/PF 20 MG/2 ML VIAL IVPUSH ×2 (08:00→20:30)
[2021-03-29] MEDS: Insulin Lispro 100 UNIT/ML 3 ML VIAL SUBCUT ×4 (08:00→20:30)
[2021-03-29] MEDS: 0.9 % Sodium Chloride Flush 3 ML SYRINGE IVFLUSH ×3 (08:03→16:37)
[2021-03-29] MEDS: Escitalopram Oxalate 10 MG TABLET PO (08:03)
[2021-03-29] MEDS: Dorzolamide/Timolo 2.23%/0.68% 10 ML DRBTL 1 DROP EYE-BOTH ×2 (08:10→20:30)
[2021-03-29 11:33] LABS: Glucose, Whole Blood 350 mg/dL (60-115)
--- NOTE | 2021-03-29 14:02 | HO.PM.IMPN ---
Subjective Subjective Date of Service: 03/29/21 <Aria Chambers NP - Last Filed: 03/29/21 14:06> 03/29/21 <Antione Butler MD - Last Filed: 03/29/21 19:37> Interval History: Follow up orthostasis <Aria Chambers NP - Last Filed: 03/29/21 14:06> Physical Exam Vital Signs: Vital Signs: Last Vital Signs Temp 97.7 F 03/29/21 11:40 Pulse 70 03/29/21 11:40 Resp 18 03/29/21 11:40 BP 186/88 H 03/29/21 11:40 Pulse Ox 98 03/29/21 11:40 Body Mass Index 22.5 <Aria Chambers NP - Last Filed: 03/29/21 14:06> Appearing in no acute distress lung sounds are clear to auscultation heart regular rate rhythm, clear S1, S2 positive bowel sounds, abdomen is soft, nontender neuro patient is alert x3, no focal deficits <Aria Chambers NP - Last Filed: 03/29/21 14:06> Objective Data Current Medications Generic Name Dose Route Start Last Admin Trade Name Freq PRN Reason Stop Dose Admin Acetaminophen 650 mg 03/22/21 02:25 Acetaminophen 325 Mg Tablet PO Q6H PRN Pain, Mild (Pain Scale 1-3) Albuterol Sulfate 2 puff 03/22/21 04:33 Albuterol Sulfate 90 Mcg 8 Gm Inhaler INHALE Q4H PRN Wheezing Aspirin 81 mg 03/22/21 09:00 03/29/21 07:56 Aspirin Enteric Coated 81 Mg Tablet. PO 81 mg DAILY BILLY Administration Atorvastatin Calcium 80 mg 03/22/21 21:00 03/28/21 20:48 Atorvastatin Calcium 80 Mg Tablet PO 80 mg BEDTIME BILLY Administration Baclofen 5 mg 03/22/21 09:00 03/29/21 07:58 Baclofen 10 Mg Tablet PO 5 mg TID BILLY Administration Carvedilol 12.5 mg 03/22/21 09:00 03/29/21 07:56 Carvedilol 12.5 Mg Tablet PO 12.5 mg BID BILLY Administration Protocol Dorzolamide/Timolol 1 drop 03/22/21 09:00 03/29/21 08:10 Dorzolamide/Timolo 2.23%/0.68% 10 Ml Drbtl EYE-BOTH 1 drop BID BILLY Administration Ezetimibe 10 mg 03/22/21 09:00 03/29/21 07:58 Ezetimibe 10 Mg Tablet PO 10 mg DAILY BILLY Administration Emtricitabine/Tenofovir Alafenamide 1 tab 03/22/21 09:00 03/29/21 07:56 Emtricitabine/Tenofov Alafenam Tablet PO 1 tab DAILY BILLY Administration Escitalopram Oxalate 10 mg 03/22/21 09:00 03/29/21 08:03 Escitalopram Oxalate 10 Mg Tablet PO 10 mg DAILY BILLY Administration Famotidine 20 mg 03/22/21 09:00 03/29/21 08:00 Famotidine/Pf 20 Mg/2 Ml Vial IVPUSH 20 mg BID BILLY Administration Insulin Glargine 10 unit 03/28/21 11:44 03/29/21 07:59 Insulin Glargine,Hum.Rec.Anlog 100 Unit/Ml 10 Ml Vial SUBCUT 10 unit DAILY BILLY Administration Insulin Human Lispro 0 unit 03/22/21 07:30 03/29/21 11:42 Insulin Lispro 100 Unit/Ml 3 Ml Vial SUBCUT 10 unit QIDACHS COUNT [facility]CLUD[facility] Administration Protocol Latanoprost 1 drop 03/22/21 21:00 03/28/21 20:50 Latanoprost 0.005 % Ophth Sandy 2.5 Ml Drops EYE-BOTH 1 drop BEDTIME BILLY Administration Magnesium Hydroxide 30 ml 03/22/21 02:25 Milk Of Magnesia 30 Ml Oral.Susp PO DAILY PRN Constipation Melatonin 6 mg 03/22/21 21:00 03/28/21 20:47 Melatonin 3 Mg Tablet PO 6 mg BEDTIME BILLY Administration Nifedipine 60 mg 03/24/21 09:00 03/29/21 07:57 Nifedipine Er 60 Mg Tab.Er.24 PO 60 mg DAILY BILLY Administration Protocol Nitroglycerin 0.4 mg 03/22/21 04:33 Nitroglycerin 0.4 Mg Tab.Subl SUBLINGUAL Q5M PRN Chest Pain Ondansetron HCl 4 mg 03/23/21 09:55 03/23/21 11:35 Ondansetron Hcl 4 Mg/2 Ml Vial IVPUSH 4 mg Q6H PRN Administration Nausea and vomitting Sodium Chloride 3 ml 03/22/21 08:00 03/29/21 08:03 0.9 % Sodium Chloride Flush 3 Ml Syringe IVFLUSH 3 ml QSHIFT BILLY Administration Ticagrelor 90 mg 03/22/21 09:00 03/29/21 07:56 Ticagrelor 90 Mg Tablet PO 90 mg BID BILLY Administration Vitamin D 50 mcg 03/22/21 09:00 03/29/21 07:57 Cholecalciferol (Vitamin D3) 25 Mcg Tablet PO 50 mcg DAILY BILLY Administration <Aria Chambers NP - Last Filed: 03/29/21 14:06> Labs CBC & Chem 7: : 03/22/21 05:53 03/27/21 08:12 <Aria Chambers NP - Last Filed: 03/29/21 14:06> Assessment and Plan (1) CKD (chronic kidney disease) stage 3, GFR 30-59 ml/min: Status: Acute <Aria Chambers NP - Last Filed: 03/29/21 14:06> Assessment and Plan: 70-year-old male with a past medical history of hypertension, hyperlipidemia, diabetes, coronary artery disease, CKD, history of CVA with left-sided weakness, abdominal aortic aneurysm, recent admission to the hospital for hypertensive urgency presented to the hospital with a chief complaint of fall/near syncope. Patient denies any loss of consciousness. Pre Syncope d/t orthostatic hypotension likely related to BP meds and autonomic dysfunction. -Nephro following -titrate coreg -add procardia at night -Neuroconsult for post stroke blood pressure issues -cardiology consult for HTN and orthostasis Mild MALLY on CKD Repeat lab on 03/24 was better and Creatinine near baseline and will continue to monitor HTN -titrate coreg -procardia at night Gastritis -Pepcid Diabetes -Insulin sliding scale -Lantus -ss DVT prophylaxis: SCD boots Code status: Full code Attending: Dr. Butler <Aria Chambers NP - Last Filed: 03/29/21 14:06> (2) Orthostatic hypotension: Status: Acute <Aria Chambers NP - Last Filed: 03/29/21 14:06> Assessment and Plan: Seen and examined and finding, assesment and plan discussed with FOREIGN STUDENT ADVISER TEACHER, I agree with above. Patient has difficult to management orthostatic hypotension with supine HTN, reduce BP meds and allow permissive HTN, consider change med to night, Neuro consult for possible Parkinsoniansim as cause of autonomic dysfunction causeing orthostatic hyhpotension. <Antione Butler MD - Last Filed: 03/29/21 19:37>
[2021-03-29 16:26] LABS: Glucose, Whole Blood 241 mg/dL (60-115)
--- NOTE | 2021-03-29 16:52 | PC.NURSE ---
This early evening RN noticed regular soda on pt tray and pt is diabetic - checked diet order, diet order currently is cardiac - notified DIE CAST OPERATOR to ask to add diabetic diet to order.
--- NOTE | 2021-03-29 20:05 | PM.PNNEP ---
Subjective Subjective Date of Service: 03/29/21 Interval history: Seen and exaimined.Cont wiht Supine Systolic HTN with signif orthostasis Old rec reviewed and priortohis CVA he had 24 hrABPM which did not demo signif orthostasis Physical Exam Vital Signs: Vital Signs: Last Vital Signs Temp 97.9 F 03/29/21 19:00 Pulse 78 03/29/21 19:00 Resp 17 03/29/21 19:00 BP 172/82 H 03/29/21 19:00 Pulse Ox 96 03/29/21 19:00 Body Mass Index 22.5 Const: General: no acute distress and alert Orientation/consciousness: patient oriented x3 Eyes: EOM: EOMs intact bilaterally Neck: Neck: Yes supple and Yes no JVD Resp: Auscultation: no rales and diminished lung sounds Cardio: Jugular venous distension: no JVD Palpation: no palpable S3 Heart sounds: no murmurs GI: Palpation (GI): Soft to palpation Auscultation: normal bowel sounds Neuro: General: patient oriented x3 and moves all extremities Motor exam (neuro): No Asterixis during motor activity present Objective Data Labs CBC & Chem 7: 03/22/21 05:53 03/27/21 08:12 Labs: Laboratory Results - last 24 hr 03/28/21 03/29/21 03/29/21 20:40 07:02 11:11 POC Glucose 340 H 244 H 350 H* 03/29/21 16:23 POC Glucose 241 H Assessment & Plan Assessment and plan (1) CKD (chronic kidney disease) stage 3, GFR 30-59 ml/min: Status: Acute Assessment and Plan: 1. SHOH: appears to a new development ? coincident with after his CVA;impressive drops of BP with upright position; prior ECHO unrevelaing and does not seem to be related to arrythmia; lack of incr HR ? d/t BBlocker or autonomic failure or both Challenging management issueand need to find sweet spotwith control of supine HTN and avoid debilitation orhtstasis 2. CKD 3 REC: taper BBlocker unless Cards thinks his CO may be improved with contractile relaxation, may need more formal cardio-physiologic assessment by card to optimize cerbral perfusion; sleep with HOB elevatd,leg stocking and galss of water in am, PT eval/mangementfor behavoiralcanges to avoid synopal events; if daytime BP spike then sit or standup and then add BP med only if remains elevated; rpeat 24 hr ABPM as outpt; neuro re-evalas to whether new CVA may have impacted baroreceptor or ANS most likely will need short actting BP at bedtime and still unclear what isbest choice ..consider captopril 6.25 qhs Time Spent With Patient Time: Total time spent is greater than 50% in coordination of care (as documented) at patient's floor/unit and/or counseling patient: Procedures Date of Service Date of Service: 03/29/21
[2021-03-29 20:19] LABS: Glucose, Whole Blood 251 mg/dL (60-115)
[2021-03-29] MEDS: Latanoprost 0.005 % Ophth Sol 2.5 ML DROPS 1 DROP EYE-BOTH (20:30)
[2021-03-29] MEDS: Melatonin 3 MG TABLET 6 MG PO (20:31)
[2021-03-29] MEDS: Atorvastatin Calcium 80 MG TABLET PO (20:31)
[2021-03-29] MEDS: NIFEdipine ER 60 MG TAB.ER.24 30 MG PO (20:34)
[2021-03-29] MEDS: carvediloL 3.125 MG TABLET 6.25 MG PO (20:34)
[2021-03-30] VITALS (9 sets, daily range): BP systolic 100–188; BP diastolic 58–92; PULSE 71–97; RESP 12–20; TEMP 36.3–36.9; O2SAT 94–98
[2021-03-30 07:06] LABS: Anion Gap 12 (12-20); Blood Urea Nitrogen 24 mg/dL (9-16); Calcium 8.7 mg/dL (8.4-10.2); Carbon Dioxide 27 mmol/L (22-29); Chloride 103 mmol/L (96-108); Creatinine Clr Calc Pharmacy 40.8; Estimated Glomerular Filt Rate 42; Glucose Random 187 mg/dL (60-115); Potassium 3.8 mmol/L (3.3-5.1); Sodium 138 mmol/L (135-145)
[2021-03-30 07:08] LABS: Glucose, Whole Blood 197 mg/dL (60-115)
[2021-03-30] MEDS: Insulin Lispro 100 UNIT/ML 3 ML VIAL SUBCUT ×4 (07:54→21:04)
[2021-03-30] MEDS: 0.9 % Sodium Chloride Flush 3 ML SYRINGE IVFLUSH ×3 (07:55→21:04)
[2021-03-30] MEDS: Insulin Glargine,Hum.rec.anlog 100 UNIT/ML 10 ML VIAL 10 UNIT SUBCUT (08:00)
[2021-03-30] MEDS: Cholecalciferol (Vitamin D3) 25 MCG TABLET 50 MCG PO (08:02)
[2021-03-30] MEDS: Baclofen 10 MG TABLET 5 MG PO ×3 (08:03→21:03)
[2021-03-30] MEDS: Escitalopram Oxalate 10 MG TABLET PO (08:03)
[2021-03-30] MEDS: Aspirin Enteric Coated 81 MG TABLET.DR PO (08:03)
[2021-03-30] MEDS: Ticagrelor 90 MG TABLET PO ×2 (08:04→21:03)
[2021-03-30] MEDS: Ezetimibe 10 MG TABLET PO (08:04)
[2021-03-30] MEDS: Famotidine/PF 20 MG/2 ML VIAL IVPUSH ×2 (08:06→21:03)
[2021-03-30] MEDS: Emtricitabine/Tenofov Alafenam TABLET 1 TAB PO (08:06)
[2021-03-30] MEDS: Dorzolamide/Timolo 2.23%/0.68% 10 ML DRBTL 1 DROP EYE-BOTH ×2 (08:42→21:05)
--- NOTE | 2021-03-30 09:51 | P.CNNE_ITS ---
History of Present Illness Data of Consult Service Date: 03/30/21 Primary Care Provider: Ryder Lou MD 70 years old man with complicated neurological history. He provided some of his history and I reviewed his records. Apparently he had a right carotid end arterectomy a few years ago, probably asymptomatic. He had a small embolic infarct in right middle cerebral artery territory in December of this year and then further extension of that infarct few weeks later. His CTA revealed moderately severe right stenosis and he had revision of right carotid surgery in January. At this time he was admitted hospital after he fell or passed out. His blood pressure was noted to be quite labile and this consultation was requested to ask if his brain condition was responsible for blood pressure changes. He was also known to have a pituitary adenoma. At this time he was not having any acute symptoms stating that his blood pressure was not well. Review of Systems Review of Systems: No recent cold or flu-like illness. [facility] Past Medical History Medical History (Updated 03/30/21 @ 09:56 by Nereida Shirley MD) AAA (abdominal aortic aneurysm) CAD (coronary artery disease) CKD (chronic kidney disease) stage 3, GFR 30-59 ml/min CVA (cerebral vascular accident) Encounter for loop recorder check HLD (hyperlipidemia) HTN (hypertension) Hypertension Hypertensive urgency Left renal artery stenosis 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 Surgical History Surgical History History of carotid endarterectomy History of heart artery stent Social History Social History Household Members: Spouse and Family Housing: House Do you presently have visiting nurse or other home services: Yes Alcohol intake: unknown Patient Tobacco Use Status: Former Tobacco user Tobacco use type: Cigarette Cigarette Packs Per Day: 1 Cigarettes Per Day: 20.0 Years Smoked: 30 Smoked in Last 30 Days: No Patient Interested in Nicotine Replacement: No Patient Given Instructions on How to Stop Smoking: No Second Hand Smoke Exposure: No Use of substances other than those prescribed or required for medical reasons: No Currently Displaying Signs/Symptoms of Drug Intoxication Withdrawal: No Have you been hit, kicked, punched, or otherwise hurt by someone within the past year? If so, by whom?: No Do you feel safe in your current relationship?: No Is there a partner from a previous relationship who is making you feel unsafe now?: No Are you made to feel afraid or neglected: No Advance Directives: No Advance Directives Information Provided: No Advance Directives on File: No Do you have thoughts of harming others: None Do you have a plan to hurt others: No Plan Recently lost weight without trying: No How much weight loss: Not applicable Eating poorly because of decreased appetite: No Nutrition screen score: 0 Nutrition Risks: No Nutritional Risk Poor oral hygiene: No service: No Current occupational status: unemployed and retired Meds Allergies Allergy/AdvReac Type Severity Reaction Status Date / Time No Known Allergies Allergy Verified 03/22/21 01:48 Active Medications: Current Medications Generic Name Dose Route Start Last Admin Trade Name Freq PRN Reason Stop Dose Admin Acetaminophen 650 mg 03/22/21 02:25 Acetaminophen 325 Mg Tablet PO Q6H PRN Pain, Mild (Pain Scale 1-3) Albuterol Sulfate 2 puff 03/22/21 04:33 Albuterol Sulfate 90 Mcg 8 Gm Inhaler INHALE Q4H PRN Wheezing Aspirin 81 mg 03/22/21 09:00 03/30/21 08:03 Aspirin Enteric Coated 81 Mg Tablet.Dr PO 81 mg DAILY BILLY Administration Atorvastatin Calcium 80 mg 03/22/21 21:00 03/29/21 20:31 Atorvastatin Calcium 80 Mg Tablet PO 80 mg BEDTIME BILLY Administration Baclofen 5 mg 03/22/21 09:00 03/30/21 08:03 Baclofen 10 Mg Tablet PO 5 mg TID BILLY Administration Carvedilol 6.25 mg 03/29/21 21:00 03/30/21 07:54 Carvedilol 3.125 Mg Tablet PO Not Given BID BILLY Protocol Dorzolamide/Timolol 1 drop 03/22/21 09:00 03/30/21 08:42 Dorzolamide/Timolo 2.23%/0.68% 10 Ml Drbtl EYE-BOTH 1 drop BID BILLY Administration Ezetimibe 10 mg 03/22/21 09:00 03/30/21 08:04 Ezetimibe 10 Mg Tablet PO 10 mg DAILY BILLY Administration Emtricitabine/Tenofovir Alafenamide 1 tab 03/22/21 09:00 03/30/21 08:06 Emtricitabine/Tenofov Alafenam Tablet PO 1 tab DAILY BILLY Administration Escitalopram Oxalate 10 mg 03/22/21 09:00 03/30/21 08:03 Escitalopram Oxalate 10 Mg Tablet PO 10 mg DAILY BILLY Administration Famotidine 20 mg 03/22/21 09:00 03/30/21 08:06 Famotidine/Pf 20 Mg/2 Ml Vial IVPUSH 20 mg BID BILLY Administration Insulin Glargine 10 unit 03/28/21 11:44 03/30/21 08:00 Insulin Glargine,Hum.Rec.Anlog 100 Unit/Ml 10 Ml Vial SUBCUT 10 unit DAILY BILLY Administration Insulin Human Lispro 0 unit 03/22/21 07:30 03/30/21 07:54 Insulin Lispro 100 Unit/Ml 3 Ml Vial SUBCUT 2 unit QIDACHS BILLY Administration Protocol Latanoprost 1 drop 03/22/21 21:00 03/29/21 20:30 Latanoprost 0.005 % Ophth Sandy 2.5 Ml Drops EYE-BOTH 1 drop BEDTIME BILLY Administration Magnesium Hydroxide 30 ml 03/22/21 02:25 Milk Of Magnesia 30 Ml Oral.Susp PO DAILY PRN Constipation Melatonin 6 mg 03/22/21 21:00 03/29/21 20:31 Melatonin 3 Mg Tablet PO 6 mg BEDTIME BILLY Administration Nifedipine 30 mg 03/29/21 21:00 03/29/21 20:34 Nifedipine Er 60 Mg Tab.Er.24 PO 30 mg BEDTIME BILLY Administration Protocol Nitroglycerin 0.4 mg 03/22/21 04:33 Nitroglycerin 0.4 Mg Tab.Subl SUBLINGUAL Q5M PRN Chest Pain Ondansetron HCl 4 mg 03/23/21 09:55 03/23/21 11:35 Ondansetron Hcl 4 Mg/2 Ml Vial IVPUSH 4 mg Q6H PRN Administration Nausea and vomitting Sodium Chloride 3 ml 03/22/21 08:00 03/30/21 07:55 0.9 % Sodium Chloride Flush 3 Ml Syringe IVFLUSH 3 ml QSHIFT BILLY Administration Ticagrelor 90 mg 03/22/21 09:00 03/30/21 08:04 Ticagrelor 90 Mg Tablet PO 90 mg BID BILLY Administration Vitamin D 50 mcg 03/22/21 09:00 03/30/21 08:02 Cholecalciferol (Vitamin D3) 25 Mcg Tablet PO 50 mcg DAILY BILLY Administration Home Medications Medication Instructions Recorded Confirmed Last Taken Type aspirin 81 mg tablet,delayed 81 mg PO DAILY 09/10/20 03/22/21 03/21/21 08:00 History release cholecalciferol (vitamin D3) 50 50 mcg PO DAILY 09/10/20 03/22/21 03/21/21 08:00 History mcg (2,000 unit) capsule emtricitabine 200 mg-tenofovir 1 tab PO DAILY 09/10/20 03/22/21 03/21/21 08:00 History alafenamide fumarate 25 mg tablet latanoprost 0.005 % eye drops 1 drp OPHTHALMIC (EYE) BEDTIME 09/10/20 03/22/21 03/20/21 History nitroglycerin 0.4 mg sublingual 0.4 mg SUBLINGUAL Q5M PRN 09/10/20 03/22/21 02/18/21 History tablet escitalopram oxalate 10 mg tablet 10 mg PO DAILY 12/31/20 03/22/21 03/21/21 08:00 History insulin aspart U-100 100 unit/mL 0 unit SUBCUT QIDACHS ml 12/31/20 03/22/21 03/21/21 22:00 History (3 mL) subcutaneous pen dorzolamide-timolol 1 drp OPHTHALMIC (EYE) BID 01/12/21 03/22/21 03/20/21 History baclofen 5 mg PO TID 02/12/21 03/22/21 03/21/21 22:00 History Tresiba FlexTouch U-100 45 unit SUBCUT DAILY 02/19/21 03/22/21 03/21/21 08:00 History albuterol sulfate 2 puff INHALATION Q4H PRN 02/19/21 03/22/21 03/08/21 History carvedilol 12.5 mg PO BID 02/19/21 03/22/21 03/21/21 22:00 History melatonin 5 mg PO BEDTIME 04/03/22/21 03/21/21 22:00 History Brilinta 1 tab PO BID 03/10/21 03/22/21 03/21/21 22:00 History Physical Exam Vital Signs: Vital Signs: Last Vital Signs Temp 97.7 F 03/30/21 07:18 Pulse 97 03/30/21 09:34 Resp 19 03/30/21 07:18 BP 100/58 L 03/30/21 09:34 Pulse Ox 98 03/30/21 07:18 Body Mass Index 22.5 He was alert and awake with normal spontaneity and fluency of speech. Affect was slightly flat. Facial expression blinking were slightly diminished. There was mild bradykinesia. There was mild right upper extremity cogwheeling. There was no tremor. He has left hemiparesis arm or the leg. He was able to get up with help and walk with a cane with his left arm flexed. Results Labs CBC & Chem 7: 03/22/21 05:53 03/30/21 05:30 Labs: BMP 03/30/21 05:30 Sodium 138 Potassium 3.8 Chloride 103 Carbon Dioxide 27 BUN 24 H Creatinine 1.62 H Calcium 8.7 His MRI of brain in the past has revealed extensive microvascular changes especially in brainstem including juan c, multiple bilateral ischemic infarction, some of them embolic looking. Most recent CTA did not reveal any intracranial stenosis. [id number] atherosclerotic changes extra cranially with noted. Assessment and Plan (1) Left hemiparesis: Status: Acute (2) Multiple cerebral infarctions: Status: Acute Some element of microvascular disease, pontine lesions, can happen in patients with binge alcohol drinking. There is no history that I am aware of that could suggest hyponatremia causing these lesions. These lesions do contribute to overall unsteadiness. (3) Cerebral microvascular disease: Status: Acute (4) Pituitary adenoma: Status: Acute I do not think this is contributing to his overall illness at this time. (5) Carotid artery disease: Status: Acute No surgical lesion is noted. Further treatment is medical with control of vascular risk factors. (6) Uncontrolled hypertension: Status: Acute I am not certain if vascular disease or strokes are responsible for lability in his blood pressure. He has chronic difficult to controlled blood pressure. At the same time he has significant vascular disease with loss of flexibility and vessels, which might be contributing to lability. (7) Vascular parkinsonism: Status: Acute One could try dopaminergic drugs but he already was having problem controlling his blood pressure, and parkinsonism was rather mild not much contributing to his disability. At this time I suggest addressing blood pres sure issues and follow-up with parkinsonism on outpatient basis. Procedures Date of Service Date of Service: 03/30/21
--- NOTE | 2021-03-30 10:41 | P.CONCA_ITS ---
History of Present Illness History of Present Illness Date of Service: 03/30/21 Consult reason: other (Syncope, autonomic dysfunction) Chief complaint: Syncope Narrative: Thank you for asking us to see Phan in cardiology consultation today for difficult to manage hypertension. He presented again to the hospital and has been here for 9 days with syncope. He has subsequently noted to have significant orthostatic hypotension and supine hypertension. This is highly suggestive of autonomic dysfunction. As per the nephrology team, his autonomic dysfunction and orthostatic hypertension came on very suddenly. He is currently on carvedilol therapy during the daytime to maintain a normal blood pressure during daytime, however the lead to lower blood pressure orthostatic symptoms. Her at nighttime is noted to have significantly elevated blood pressure cons istent with supine hypertension. This is extremely difficult syndrome to treat. He is currently worried about recurrent symptoms of syncope. He was started on Procardia XL at nighttime 30 mg. This led to this morning having low blood pressure. He has not had any cardiac symptoms. Denies any chest pain or shortness of breath or orthopnea at nighttime. Denies palpitations. He has underlying chronic kidney disease. He has prior history of coronary artery disease status post drug-eluting stent to mid RCA in RPDA and both on prolonged dual antiplatelet therapy with aspirin and Brilinta and subsequently due to recurrent TIAs was on aspirin and Plavix. Unfortunately had a left sided stroke due to significant right carotid artery stenosis and since then his Plavix was changed to Brilinta 90 mg b.i.d. as he had stroke while on Plavix therapy. This is appropriate change. He then underwent redo carotid endarterectomy at [facility] by Dr. Ventura. Echocardiogram shows hyperdynamic LV systolic function with moderate LVH with diastolic dysfunction. Renal duplex suggestive left renal artery stenosis. Review of Systems Constitutional: Constitutional: Reports no additional constitutional complaints Cardiovascular: Cardiovascular: Reports no additional cardiovascular complaints Respiratory: Respiratory: Reports no additional respiratory complaints Gastrointestinal: Gastrointestinal: Reports no additional gastrointestinal complaints Neurologic: Reports system reviewed and no additional complaints, except as documented Psychiatric: Psychiatric: Reports no additional psychiatric complaints Endocrine: Endocrine: Reports no additional endocrine complaints Hematologic/Lymphatic: Hematologic/Lymphatic: Reports no additional hematolog ic/lymphatic complaints [facility] Past Medical History Medical History AAA (abdominal aortic aneurysm) CAD (coronary artery disease) CKD (chronic kidney disease) stage 3, GFR 30-59 ml/min CVA (cerebral vascular accident) Encounter for loop recorder check HLD (hyperlipidemia) HTN (hypertension) Hypertension Hypertensive urgency Left renal artery stenosis 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 Surgical History Surgical History History of carotid endarterectomy History of heart artery stent Social History Social History Household Members: Spouse and Family Housing: House Do you presently have visiting nurse or other home services: Yes Alcohol intake: unknown Patient Tobacco Use Status: Former Tobacco user Tobacco use type: Cigarette Cigarette Packs Per Day: 1 Cigarettes Per Day: 20.0 Years Smoked: 30 Smoked in Last 30 Days: No Patient Interested in Nicotine Replacement: No Patient Given Instructions on How to Stop Smoking: No Second Hand Smoke Exposure: No Use of substances other than those prescribed or required for medical reasons: No Currently Displaying Signs/Symptoms of Drug Intoxication Withdrawal: No Have you been hit, kicked, punched, or otherwise hurt by someone within the past year? If so, by whom?: No Do you feel safe in your current relationship?: No Is there a partner from a previous relationship who is making you feel unsafe now?: No Are you made to feel afraid or neglected: No Advance Directives: No Advance Directives Information Provided: No Advance Directives on File: No Do you have thoughts of harming others: None Do you have a plan to hurt others: No Plan Recently lost weight without trying: No How much weight loss: Not applicable Eating poorly because of decreased appetite: No Nutrition screen score: 0 Nutrition Risks: No Nutritional Risk Poor oral hygiene: No service: No Current occupational status: unemployed and retired Meds Allergies Allergy/AdvReac Type Severity Reaction Status Date / Time No Known Allergies Allergy Verified 03/22/21 01:48 Active Medications: Current Medications Generic Name Dose Route Start Last Admin Trade Name Freq PRN Reason Stop Dose Admin Acetaminophen 650 mg 03/22/21 02:25 Acetaminophen 325 Mg Tablet PO Q6H PRN Pain, Mild (Pain Scale 1-3) Albuterol Sulfate 2 puff 03/22/21 04:33 Albuterol Sulfate 90 Mcg 8 Gm Inhaler INHALE Q4H PRN Wheezing Aspirin 81 mg 03/22/21 09:00 03/30/21 08:03 Aspirin Enteric Coated 81 Mg Tablet.Dr PO 81 mg DAILY BILLY Administration Atorvastatin Calcium 80 mg 03/22/21 21:00 03/29/21 20:31 Atorvastatin Calcium 80 Mg Tablet PO 80 mg BEDTIME BILLY Administration Baclofen 5 mg 03/22/21 09:00 03/30/21 08:03 Baclofen 10 Mg Tablet PO 5 mg TID BILLY Administration Carvedilol 6.25 mg 03/29/21 21:00 03/30/21 07:54 Carvedilol 3.125 Mg Tablet PO Not Given BID [facility] Protocol Dorzolamide/Timolol 1 drop 03/22/21 09:00 03/30/21 08:42 Dorzolamide/Timolo 2.23%/0.68% 10 Ml Drbtl EYE-BOTH 1 drop BID BILLY Administration Ezetimibe 10 mg 03/22/21 09:00 03/30/21 08:04 Ezetimibe 10 Mg Tablet PO 10 mg DAILY BILLY Administration Emtricitabine/Tenofovir Alafenamide 1 tab 03/22/21 09:00 03/30/21 08:06 Emtricitabine/Tenofov Alafenam Tablet PO 1 tab DAILY BILLY Administration Escitalopram Oxalate 10 mg 03/22/21 09:00 03/30/21 08:03 Escitalopram Oxalate 10 Mg Tablet PO 10 mg DAILY BILLY Administration Famotidine 20 mg 03/22/21 09:00 03/30/21 08:06 Famotidine/Pf 20 Mg/2 Ml Vial IVPUSH 20 mg BID BILLY Administration Insulin Glargine 10 unit 03/28/21 11:44 03/30/21 08:00 Insulin Glargine,Hum.Rec.Anlog 100 Unit/Ml 10 Ml Vial SUBCUT 10 unit DAILY BILLY Administration Insulin Human Lispro 0 unit 03/22/21 07:30 03/30/21 07:54 Insulin Lispro 100 Unit/Ml 3 Ml Vial SUBCUT 2 unit QIDACHS BILLY Administration Protocol Latanoprost 1 drop 03/22/21 21:00 03/29/21 20:30 Latanoprost 0.005 % Ophth Sandy 2.5 Ml Drops EYE-BOTH 1 drop BEDTIME BILLY Administration Magnesium Hydroxide 30 ml 03/22/21 02:25 Milk Of Magnesia 30 Ml Oral.Susp PO DAILY PRN Constipation Melatonin 6 mg 03/22/21 21:00 03/29/21 20:31 Melatonin 3 Mg Tablet PO 6 mg BEDTIME BILLY Administration Nifedipine 30 mg 03/29/21 21:00 03/29/21 20:34 Nifedipine Er 60 Mg Tab.Er.24 PO 30 mg BEDTIME BILLY Administration Protocol Nitroglycerin 0.4 mg 03/22/21 04:33 Nitroglycerin 0.4 Mg Tab.Subl SUBLINGUAL Q5M PRN Chest Pain Ondansetron HCl 4 mg 03/23/21 09:55 03/23/21 11:35 Ondansetron Hcl 4 Mg/2 Ml Vial IVPUSH 4 mg Q6H PRN Administration Nausea and vomitting Sodium Chloride 3 ml 03/22/21 08:00 03/30/21 07:55 0.9 % Sodium Chloride Flush 3 Ml Syringe IVFLUSH 3 ml QSHIFT BILLY Administration Ticagrelor 90 mg 03/22/21 09:00 03/30/21 08:04 Ticagrelor 90 Mg Tablet PO 90 mg BID BILLY Administration Vitamin D 50 mcg 03/22/21 09:00 03/30/21 08:02 Cholecalciferol (Vitamin D3) 25 Mcg Tablet PO 50 mcg DAILY BILLY Administration Home Medications Medication Instructions Recorded Confirmed Last Taken Type aspirin 81 mg tablet,delayed 81 mg PO DAILY 09/10/20 03/22/21 03/21/21 08:00 History release cholecalciferol (vitamin D3) 50 50 mcg PO DAILY 09/10/20 03/22/21 03/21/21 08:00 History mcg (2,000 unit) capsule emtricitabine 200 mg-tenofovir 1 tab PO DAILY 09/10/20 03/22/21 03/21/21 08:00 History alafenamide fumarate 25 mg tablet latanoprost 0.005 % eye drops 1 drp OPHTHALMIC (EYE) BEDTIME 09/10/20 03/22/21 03/20/21 History nitroglycerin 0.4 mg sublingual 0.4 mg SUBLINGUAL Q5M PRN 09/10/20 03/22/21 02/18/21 History tablet escitalopram oxalate 10 mg tablet 10 mg PO DAILY 12/31/20 03/22/21 03/21/21 08:00 History insulin aspart U-100 100 unit/mL 0 unit SUBCUT QIDACHS ml 12/31/20 03/22/21 03/21/21 22:00 History (3 mL) subcutaneous pen dorzolamide-timolol 1 drp OPHTHALMIC (EYE) BID 01/12/21 03/22/21 03/20/21 History baclofen 5 mg PO TID 02/12/21 03/22/21 03/21/21 22:00 History Tresiba FlexTouch U-100 45 unit SUBCUT DAILY 02/19/21 03/22/21 03/21/21 08:00 History albuterol sulfate 2 puff INHALATION Q4H PRN 02/19/21 03/22/21 03/08/21 History carvedilol 12.5 mg PO BID 02/19/21 03/22/21 03/21/21 22:00 History melatonin 5 mg PO BEDTIME 02/19/21 03/22/21 03/21/21 22:00 History Brilinta 1 tab PO BID 03/10/21 03/22/21 03/21/21 22:00 History Physical Exam Vital Signs: Vital Signs: Last Vital Signs Temp 97.7 F 03/30/21 07:18 Pulse 97 03/30/21 09:34 Resp 19 03/30/21 07:18 BP 100/58 L 03/30/21 09:34 Pulse Ox 98 03/30/21 07:18 Body Mass Index 22.5 Results Labs and Meds Result diagrams: 03/22/21 05:53 03/30/21 05:30 Lab results: Laboratory Results - last 24 hr 03/29/21 03/29/21 03/29/21 11:11 16:23 20:16 Sodium Potassium Chloride Carbon Dioxide Anion Gap BUN Creatinine Estim Creat Clear Calc Estimated GFR POC Glucose 350 H* 241 H 251 H Random Glucose Calcium 03/30/21 03/30/21 05:30 07:05 Sodium 138 Potassium 3.8 Chloride 103 Carbon Dioxide 27 Anion Gap 12 BUN 24 H Creatinine 1.62 H Estim Creat Clear Calc 40.8 Estimated GFR 42 POC Glucose 197 H Random Glucose 187 H Calcium 8.7 IMPRESSION: Findings strongly suspicious for left renal artery stenosis. Mid abdominal aortic aneurysm new since the previous study. But still within the range for calculation of RAR Conclusions: - Normal left ventricular cavity size. There is moderately increased left ventricular wall thickness. The left ventricular systolic function is hyperdynamic. The visually estimated ejection fraction is >70%. - Normal right ventricular cavity size and systolic function. - The inferior vena cava is normal in size and collapses greater than 50% with inspiration. - There is no evidence of pericardial effusion. Assessment and Plan (1) Dysautonomia orthostatic hypotension syndrome: Status: Acute Patient with prior history of uncontrolled hypertension and now with orthostatic hypotension. This happened after his stroke couple of months later. The dysautonomia could be central in origin given his prior stroke and sort of parkinsonian feature versus could be related to peripheral autonomic dysfunction related to his diabetes. Also significant labile blood pressure can be seen in patient with renal artery stenosis which is suspected based on renal artery duplex. He also has significant LVH and diastolic dysfunction with stiff ventricle as well as significant diffuse vascular disease and stiff vasculature as well. This makes him very pre low dependent. Extremely difficult clinical syndrome to treat. Treatment goals should be to manage adequate blood pressure allowing some amount of permissive hypertension with systolic blood pressure up to 150 and not normalizing his blood pressure. This will lead to improvement in his orthostatic symptoms. Also controlling his nocturnal supine hypertension which can be a difficult clinical scenario with a short-acting medication at nighttime such as hydralazine rather than long-acting nifedipine XL therapy. Agree with continuing carvedilol at this point in time, however in future may eventually switch to more beta-raz rather than having any off for blocking activity which can also potentiate orthostatic hypotension. For now continue carvedilol 6.25 mg b.i.d., continuously monitored blood pressure including orthostatics and switch to hydralazine 10 mg at nighttime. He is also recommended to increase his oral hydration significantly without adding too much salt. Orthostatic training with sleeping in a semi reclining position. Orthostatic precautions with assumption of supine or sitting position when he gets symptomatic was discussed with him in details. May eventually need lower body compression garments. Will discuss with Nephrology about workup for renal artery stenosis. Also given his significant LV wall thickness, and orthostatic hypotension possibility of amyloidosis should be considered. Serum light chains as well as SPEP and UPEP should be ordered. Will continue to follow with the patient. (2) Uncontrolled hypertension: Status: Acute Procedures Date of Service Date of Service: 03/30/21
[2021-03-30 11:20] LABS: Glucose, Whole Blood 203 mg/dL (60-115)
--- NOTE | 2021-03-30 12:07 | HO.PM.IMPN ---
Subjective Subjective Date of Service: 03/30/21 <Aria Chambers NP - Last Filed: 03/30/21 12:30> 03/30/21 <Antione Butler MD - Last Filed: 03/30/21 21:09> Interval History: Follow-up orthostatic hypotension No dizziness, lightheadedness Still orthostatic Seen evaluated by Cardiology and Neurology today <Aria Chambers NP - Last Filed: 03/30/21 12:30> Physical Exam Vital Signs: Vital Signs: Last Vital Signs Temp 97.5 F 03/30/21 11:52 Pulse 75 03/30/21 11:52 Resp 20 03/30/21 11:52 BP 140/60 H 03/30/21 11:52 Pulse Ox 97 03/30/21 11:52 Body Mass Index 22.5 <Aria Chambers NP - Last Filed: 03/30/21 12:30> Appearing in no acute distress lung sounds are clear to auscultation heart regular rate rhythm, clear S1, S2 positive bowel sounds, abdomen is soft, nontender neuro patient is alert x3, no focal deficits <Aria Chambers NP - Last Filed: 03/30/21 12:30> Objective Data Current Medications Generic Name Dose Route Start Last Admin Trade Name Freq PRN Reason Stop Dose Admin Acetaminophen 650 mg 03/22/21 02:25 Acetaminophen 325 Mg Tablet PO Q6H PRN Pain, Mild (Pain Scale 1-3) Albuterol Sulfate 2 puff 03/22/21 04:33 Albuterol Sulfate 90 Mcg 8 Gm Inhaler INHALE Q4H PRN Wheezing Aspirin 81 mg 03/22/21 09:00 03/30/21 08:03 Aspirin Enteric Coated 81 Mg Tablet.Dr PO 81 mg DAILY B[facility]Y Administration Atorvastatin Calcium 80 mg 03/22/21 21:00 03/29/21 20:31 Atorvastatin Calcium 80 Mg Tablet PO 80 mg BEDTIME B[facility]Y Administration Baclofen 5 mg 03/22/21 09:00 03/30/21 08:03 Baclofen 10 Mg Tablet PO 5 mg TID B[facility]Y Administration Carvedilol 6.25 mg 03/29/21 21:00 03/30/21 07:54 Carvedilol 3.125 Mg Tablet PO Not Given BID [facility] Protocol Dorzolamide/Timolol 1 drop 03/22/21 09:00 03/30/21 08:42 Dorzolamide/Timolo 2.23%/0.68% 10 Ml Drbtl EYE-BOTH 1 drop BID [facility]Y Administration Ezetimibe 10 mg 03/22/21 09:00 03/30/21 08:04 Ezetimibe 10 Mg Tablet PO 10 mg DAILY [facility]Y Administration Emtricitabine/Tenofovir Alafenamide 1 tab 03/22/21 09:00 03/30/21 08:06 Emtricitabine/Tenofov Alafenam Tablet PO 1 tab DAILY [facility] Administration Escitalopram Oxalate 10 mg 03/22/21 09:00 03/30/21 08:03 Escitalopram Oxalate 10 Mg Tablet PO 10 mg DAILY [facility] Administration Famotidine 20 mg 03/22/21 09:00 03/30/21 08:06 Famotidine/Pf 20 Mg/2 Ml Vial IVPUSH 20 mg BID B[facility]Y Administration Hydralazine HCl 10 mg 03/31/21 22:00 Hydralazine Hcl 10 Mg Tablet PO DAILY [facility] Protocol Insulin Glargine 10 unit 03/28/21 11:44 03/30/21 08:00 Insulin Glargine,Hum.Rec.Anlog 100 Unit/Ml 10 Ml Vial SUBCUT 10 unit DAILY [facility] Administration Insulin Human Lispro 0 unit 03/22/21 07:30 03/30/21 11:39 Insulin Lispro 100 Unit/Ml 3 Ml Vial SUBCUT 4 unit QIDACHS [facility] Administration Protocol Latanoprost 1 drop 03/22/21 21:00 03/29/21 20:30 Latanoprost 0.005 % Ophth Sadny 2.5 Ml Drops EYE-BOTH 1 drop BEDTIME [facility] Administration Magnesium Hydroxide 30 ml 03/22/21 02:25 Milk Of Magnesia 30 Ml Oral.Susp PO DAILY PRN Constipation Melatonin 6 mg 03/22/21 21:00 03/29/21 20:31 Melatonin 3 Mg Tablet PO 6 mg BEDTIME [facility] Administration Nitroglycerin 0.4 mg 03/22/21 04:33 Nitroglycerin 0.4 Mg Tab.Subl SUBLINGUAL Q5M PRN Chest Pain Ondansetron HCl 4 mg 03/23/21 09:55 03/23/21 11:35 Ondansetron Hcl 4 Mg/2 Ml Vial IVPUSH 4 mg Q6H PRN Administration Nausea and vomitting Sodium Chloride 3 ml 03/22/21 08:00 03/30/21 07:55 0.9 % Sodium Chloride Flush 3 Ml Syringe IVFLUSH 3 ml QSHIFT [facility]Y Administration Ticagrelor 90 mg 03/22/21 09:00 03/30/21 08:04 Ticagrelor 90 Mg Tablet PO 90 mg BID [facility] Administration Vitamin D 50 mcg 03/22/21 09:00 03/30/21 08:02 Cholecalciferol (Vitamin D3) 25 Mcg Tablet PO 50 mcg DAILY [facility] Administration <Aria Chambers NP - Last Filed: 03/30/21 12:30> Labs CBC & Chem 7: : 03/22/21 05:53 03/30/21 05:30 <Aria Chambers NP - Last Filed: 03/30/21 12:30> Assessment and Plan (1) Dysautonomia orthostatic hypotension syndrome: Status: Acute <Aria Chambers NP - Last Filed: 03/30/21 12:30> Assessment and Plan: 70-year-old male with a past medical history of hypertension, hyperlipidemia, diabetes, coronary artery disease, CKD, history of CVA with left-sided weakness, abdominal aortic aneurysm, recent admission to the hospital for hypertensive urgency presented to the hospital with a chief complaint of fall/near syncope. Patient denies any loss of consciousness. Dysautonomia d/t orthostatic hypotension labile bp Multifactorial etiologies include renal artery stenosis, vascular disease, uncontrolled blood pressure, amyloidosis Seen and evaluated by Neurology and Cardiology -recommendation to check SPEP, UPEP, kappa light chain -hydralazine added, carvedilol continued -vascular surgery consultation for renal artery stenosis -outpatient workup for Parkinson's disease Mild MALLY on CKD Repeat lab on 03/24 was better and Creatinine near baseline and will continue to monitor HTN -titrate coreg - hydralazine at night Gastritis -Pepcid Diabetes -Insulin sliding scale -Lantus -ss DVT prophylaxis: SCD boots Code status: Full code Attending: Dr. Butler <Aria Chambers NP - Last Filed: 03/30/21 12:30> I have seen and evaluated this patient. I have discussed the case and its management with the SHIPYARD SUPERVISOR and I agree with the findings and plan as documented in the SHIPYARD SUPERVISOR?s note. <Antione Butler MD - Last Filed: 03/30/21 21:09>
--- NOTE | 2021-03-30 12:21 | MHC.CM.PN ---
Per ROUNDS discussion, Patient is not yet medically cleared for dc (still requiring IV Pepcid). Home/resume vna is the goal for dc and CM will follow for possible need to adjust the dc plan.
[2021-03-30 16:12] LABS: Glucose, Whole Blood 277 mg/dL (60-115)
[2021-03-30 20:11] LABS: Glucose, Whole Blood 361 mg/dL (60-115)
--- NOTE | 2021-03-30 21:00 | P.PNNP_ITS ---
Subjective Subjective Date of Service: 03/30/21 Interval history: Seen and examined. events noted. Again PT states that the orthostaisis symptoms are relatively sudden onset as he had 24 hr ABPM 3 wks ago and had only 1 epsiode of low BP ( BP measuremenst are done seperated by 30 min during daytine) and he had been on procardia xl 60 at that time. Physical Exam Vital Signs: Vital Signs: Last Vital Signs Temp 98.3 F 03/30/21 18:59 Pulse 76 03/30/21 18:59 Resp 20 03/30/21 18:59 BP 187/87 H 03/30/21 18:59 Pulse Ox 96 03/30/21 18:59 Body Mass Index 22.5 Const: General: no acute distress and alert Orientation/consciousness: patient oriented x3 Eyes: EOM: EOMs intact bilaterally Neck: Neck: Yes supple and Yes no JVD Resp: Auscultation: no rales and diminished lung sounds Cardio: Jugular venous distension: no JVD Palpation: no palpable S3 Heart sounds: no murmurs GI: Palpation (GI): Soft to palpation Auscultation: normal bowel sounds Neuro: General: patient oriented x3 and moves all extremities Motor exam (neuro): No Asterixis during motor activity present Objective Data Labs CBC & Chem 7: 03/22/21 05:53 03/30/21 05:30 Labs: Laboratory Results - last 24 hr 03/30/21 03/30/21 03/30/21 05:30 07:05 11:16 Sodium 138 Potassium 3.8 Chloride 103 Carbon Dioxide 27 Anion Gap 12 BUN 24 H Creatinine 1.62 H Estim Creat Clear Calc 40.8 Estimated GFR 42 POC Glucose 197 H 203 H Random Glucose 187 H Calcium 8.7 03/30/21 03/30/21 16:09 20:08 Sodium Potassium Chloride Carbon Dioxide Anion Gap BUN Creatinine Estim Creat Clear Calc Estimated GFR POC Glucose 277 H 361 H* Random Glucose Calcium Assessment & Plan Assessment and plan (1) CKD (chronic kidney disease) stage 3, GFR 30-59 ml/min: Status: Acute Assessment and Plan: 1. SHOH: appears to a new development ? coincident with after his CVA;impressive drops of BP with upright position; prior ECHO reveal DDys func and non- complaint/stiff heart; ; lack of incr HR ? d/t BBlocker or autonomic failure or both Challenging management issueand need to find sweet spot with control of supine HTN and avoid debilitation orhtstasis prior U/S showed asymmetric kidneys and doppler very suggestive of ABRAHAM in the larger kidney 2. CKD 3: msot c/w DN/HTN renal dis; r/o dysproteinemia makes sense as well REC: taper BBlocker unless Cards thinks his CO may be improved with contractile relaxation, may need more formal cardio-physiologic assessment by card to optimize cerbral perfusion; sleep with HOB elevatd,leg stocking and galss of water in am, PT eval/mangementfor behavoiralcanges to avoid synopal events; if daytime BP spike then sit or standup and then add BP med only if remains elevated; rpeat 24 hr ABPM as outpt; neuro re-evalas to whether new CVA may have impacted baroreceptor or ANS proceed with eval of ABRAHAM with either MRA or directly with Renal Angiogram--get vascular assessment on best next step for eval of ques clinically signif ABRAHAM; check seum immunofix and free light chains most likely will need short actting BP at bedtime and still unclear what is best choice ..consider captopril 6.25 vs hydralazine Time Spent With Patient Time: Total time spent is greater than 50% in coordination of care (as documented) at patient's floor/unit and/or counseling patient: Procedures Date of Service Date of Service: 03/30/21
[2021-03-30] MEDS: Melatonin 3 MG TABLET 6 MG PO (21:03)
[2021-03-30] MEDS: Atorvastatin Calcium 80 MG TABLET PO (21:03)
[2021-03-30] MEDS: carvediloL 3.125 MG TABLET 6.25 MG PO (21:03)
[2021-03-30] MEDS: Latanoprost 0.005 % Ophth Sol 2.5 ML DROPS 1 DROP EYE-BOTH (21:05)
[2021-03-31] VITALS (11 sets, daily range): BP systolic 128–210; BP diastolic 70–90; PULSE 70–88; RESP 15–20; TEMP 36.2–37.1; O2SAT 97–98
[2021-03-31 06:56] LABS: Anion Gap 12 (12-20); Blood Urea Nitrogen 22 mg/dL (9-16); Calcium 8.7 mg/dL (8.4-10.2); Carbon Dioxide 27 mmol/L (22-29); Chloride 104 mmol/L (96-108); Creatinine Clr Calc Pharmacy 45.6; Estimated Glomerular Filt Rate 48; Glucose Random 227 mg/dL (60-115); Potassium 3.8 mmol/L (3.3-5.1); Sodium 139 mmol/L (135-145)
[2021-03-31 07:34] LABS: Glucose, Whole Blood 227 mg/dL (60-115)
[2021-03-31] MEDS: Insulin Lispro 100 UNIT/ML 3 ML VIAL SUBCUT ×3 (07:40→16:55)
[2021-03-31] MEDS: 0.9 % Sodium Chloride Flush 3 ML SYRINGE IVFLUSH ×3 (07:42→23:20)
[2021-03-31] MEDS: Cholecalciferol (Vitamin D3) 25 MCG TABLET 50 MCG PO (08:03)
[2021-03-31] MEDS: Ezetimibe 10 MG TABLET PO (08:03)
[2021-03-31] MEDS: Aspirin Enteric Coated 81 MG TABLET.DR PO (08:03)
[2021-03-31] MEDS: Escitalopram Oxalate 10 MG TABLET PO (08:03)
[2021-03-31] MEDS: Emtricitabine/Tenofov Alafenam TABLET 1 TAB PO (08:04)
[2021-03-31] MEDS: Baclofen 10 MG TABLET 5 MG PO ×3 (08:04→21:00)
[2021-03-31] MEDS: Ticagrelor 90 MG TABLET PO (08:05)
[2021-03-31] MEDS: carvediloL 3.125 MG TABLET 6.25 MG PO ×2 (08:06→20:59)
[2021-03-31] MEDS: Famotidine/PF 20 MG/2 ML VIAL IVPUSH ×2 (08:07→20:58)
[2021-03-31] MEDS: Dorzolamide/Timolo 2.23%/0.68% 10 ML DRBTL 1 DROP EYE-BOTH ×2 (08:49→21:03)
[2021-03-31] MEDS: Insulin Glargine,Hum.rec.anlog 100 UNIT/ML 10 ML VIAL 10 UNIT SUBCUT (08:49)
--- NOTE | 2021-03-31 10:39 | P.CONGS_ITS ---
History of Present Illness Consult details Consult date: 03/31/21 Narrative: 70-year-old gentleman well known to me for prior history of stroke. He actually had undergone prior right-sided carotid endarterectomy in subsequently underwent a redo carotid endarterectomy by Dr. Ventura. Appears to be doing relatively well with that. The concern is that he has renal artery stenosis. We have been unable to truly identify this as he does have renal insufficiency. He now presents to us for vascular evaluation. Review of Systems Review of Systems: Yes all other systems are reviewed and are negative Constitutional: Constitutional: Reports no additional constitutional complaints ENT: Reports Normal hearing present Cardiovascular: Cardiovascular: Denies chest pain, Denies chest pain at rest, Denies chest pain with activity and Denies pedal edema Respiratory: Respiratory: Denies cough Gastrointestinal: Gastrointestinal: Denies abdominal pain Musculoskeletal: Musculoskeletal: Denies abnormal gait, Denies muscle cramps and Denies radiating pain into limb Integumentary/Breasts: Skin/Breast: Denies skin ulcer and Denies wounds Neurologic: Reports Normal hearing present and Denies abnormal gait Psychiatric: Psychiatric: Reports no additional psychiatric complaints PMFSH Past Medical History Medical History AAA (abdominal aortic aneurysm) CAD (coronary artery disease) CKD (chronic kidney disease) stage 3, GFR 30-59 ml/min CVA (cerebral vascular accident) Encounter for loop recorder check HLD (hyperlipidemia) HTN (hypertension) Hypertension Hypertensive urgency Left renal artery stenosis 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 Surgical History Surgical History History of carotid endarterectomy History of heart artery stent Social History Social History Household Members: Spouse and Family Housing: House Do you presently have visiting nurse or other home services: Yes Alcohol intake: unknown Patient Tobacco Use Status: Former Tobacco user Tobacco use type: Cigarette Cigarette Packs Per Day: 1 Cigarettes Per Day: 20.0 Years Smoked: 30 Smoked in Last 30 Days: No Patient Interested in Nicotine Replacement: No Patient Given Instructions on How to Stop Smoking: No Second Hand Smoke Exposure: No Use of substances other than those prescribed or required for medical reasons: No Currently Displaying Signs/Symptoms of Drug Intoxication Withdrawal: No Have you been hit, kicked, punched, or otherwise hurt by someone within the past year? If so, by whom?: No Do you feel safe in your current relationship?: No Is there a partner from a previous relationship who is making you feel unsafe now?: No Are you made to feel afraid or neglected: No Advance Directives: No Advance Directives Information Provided: No Advance Directives on File: No Do you have thoughts of harming others: None Do you have a plan to hurt others: No Plan Recently lost weight without trying: No How much weight loss: Not applicable Eating poorly because of decreased appetite: No Nutrition screen score: 0 Nutrition Risks: No Nutritional Risk Poor oral hygiene: No service: No Current occupational status: unemployed and retired [employer] Allergies Allergy/AdvReac Type Severity Reaction Status Date / Time No Known Allergies Allergy Verified 03/22/21 01:48 Active Medications: Current Medications Generic Name Dose Route Start Last Admin Trade Name Freq PRN Reason Stop Dose Admin Acetaminophen 650 mg 03/22/21 02:25 Acetaminophen 325 Mg Tablet PO Q6H PRN Pain, Mild (Pain Scale 1-3) Albuterol Sulfate 2 puff 03/22/21 04:33 Albuterol Sulfate 90 Mcg 8 Gm Inhaler INHALE Q4H PRN Wheezing Aspirin 81 mg 03/22/21 09:00 03/31/21 08:03 Aspirin Enteric Coated 81 Mg Tablet. PO 81 mg DAILY [facility]Y Administration Atorvastatin Calcium 80 mg 03/22/21 21:00 03/30/21 21:03 Atorvastatin Calcium 80 Mg Tablet PO 80 mg BEDTIME [facility] Administration Baclofen 5 mg 03/22/21 09:00 03/31/21 08:04 Baclofen 10 Mg Tablet PO 5 mg TID [facility]Y Administration Carvedilol 6.25 mg 03/29/21 21:00 03/31/21 08:06 Carvedilol 3.125 Mg Tablet PO 6.25 mg BID [facility] Administration Protocol Dorzolamide/Timolol 1 drop 03/22/21 09:00 03/31/21 08:49 Dorzolamide/Timolo 2.23%/0.68% 10 Ml Drbtl EYE-BOTH 1 drop BID [facility] Administration Ezetimibe 10 mg 03/22/21 09:00 03/31/21 08:03 Ezetimibe 10 Mg Tablet PO 10 mg DAILY [facility] Administration Emtricitabine/Tenofovir Alafenamide 1 tab 03/22/21 09:00 03/31/21 08:04 Emtricitabine/Tenofov Alafenam Tablet PO 1 tab DAILY [facility] Administration Escitalopram Oxalate 10 mg 03/22/21 09:00 03/31/21 08:03 Escitalopram Oxalate 10 Mg Tablet PO 10 mg DAILY [facility] Administration Famotidine 20 mg 03/22/21 09:00 03/31/21 08:07 Famotidine/Pf 20 Mg/2 Ml Vial IVPUSH 20 mg BID [facility]Y Administration Hydralazine HCl 10 mg 03/31/21 22:00 Hydralazine Hcl 10 Mg Tablet PO DAILY COUNTS INCLUDE 234 BEDS AT [facility] Protocol Insulin Glargine 10 unit 03/28/21 11:44 03/31/21 08:49 Insulin Glargine,Hum.Rec.Anlog 100 Unit/Ml 10 Ml Vial SUBCUT 10 unit DAILY [facility]S INCLUDE 234 BEDS AT THE [facility] Administration Insulin Human Lispro 0 unit 03/22/21 07:30 03/31/21 07:40 Insulin Lispro 100 Unit/Ml 3 Ml Vial SUBCUT 4 unit QIDACHS COUNTS INCLUDE 234 BEDS AT THE [facility] Administration Protocol Latanoprost 1 drop 03/22/21 21:00 03/30/21 21:05 Latanoprost 0.005 % Ophth [place] 2.5 Ml Drops EYE-BOTH 1 drop BEDTIME [facility] Administration Magnesium Hydroxide 30 ml 03/22/21 02:25 Milk Of Magnesia 30 Ml Oral.Susp PO DAILY PRN Constipation Melatonin 6 mg 03/22/21 21:00 03/30/21 21:03 Melatonin 3 Mg Tablet PO 6 mg BEDTIME [facility]Y Administration Nitroglycerin 0.4 mg 03/22/21 04:33 Nitroglycerin 0.4 Mg Tab.Subl SUBLINGUAL Q5M PRN Chest Pain Ondansetron HCl 4 mg 03/23/21 09:55 03/23/21 11:35 Ondansetron Hcl 4 Mg/2 Ml Vial IVPUSH 4 mg Q6H PRN Administration Nausea and vomitting Sodium Chloride 3 ml 03/22/21 08:00 03/31/21 07:42 0.9 % Sodium Chloride Flush 3 Ml Syringe IVFLUSH 3 ml QSHIFT [facility]ILLY Administration Ticagrelor 90 mg 03/22/21 09:00 03/31/21 08:05 Ticagrelor 90 Mg Tablet PO 90 mg BID [facility]Y Administration Vitamin D 50 mcg 03/22/21 09:00 03/31/21 08:03 Cholecalciferol (Vitamin D3) 25 Mcg Tablet PO 50 mcg DAILY [facility]Y Administration Home Medications Medication Instructions Recorded Confirmed Last Taken Type aspirin 81 mg tablet,delayed 81 mg PO DAILY 09/10/20 03/22/21 03/21/21 08:00 History release cholecalciferol (vitamin D3) 50 50 mcg PO DAILY 09/10/20 03/22/21 03/21/21 08:00 History mcg (2,000 unit) capsule emtricitabine 200 mg-tenofovir 1 tab PO DAILY 09/10/20 03/22/21 03/21/21 08:00 History alafenamide fumarate 25 mg tablet latanoprost 0.005 % eye drops 1 drp OPHTHALMIC (EYE) BEDTIME 09/10/20 03/22/21 03/20/21 History nitroglycerin 0.4 mg sublingual 0.4 mg SUBLINGUAL Q5M PRN 09/10/20 03/22/21 02/18/21 History tablet escitalopram oxalate 10 mg tablet 10 mg PO DAILY 12/31/20 03/22/21 03/21/21 08:00 History insulin aspart U-100 100 unit/mL 0 unit SUBCUT QIDACHS ml 12/31/20 03/22/21 03/21/21 22:00 History (3 mL) subcutaneous pen dorzolamide-timolol 1 drp OPHTHALMIC (EYE) BID 01/12/21 03/22/21 03/20/21 History baclofen 5 mg PO TID 02/12/21 03/22/21 03/21/21 22:00 History Tresiba FlexTouch U-100 45 unit SUBCUT DAILY 02/19/21 03/22/21 03/21/21 08:00 History albuterol sulfate 2 puff INHALATION Q4H PRN 02/19/21 03/22/21 03/08/21 History carvedilol 12.5 mg PO BID 02/19/21 03/22/21 03/21/21 22:00 History melatonin 5 mg PO BEDTIME 02/19/21 03/22/21 03/21/21 22:00 History Brilinta 1 tab PO BID 03/10/21 03/22/21 03/21/21 22:00 History Physical Exam Vital Signs: Vital Signs: Last Vital Signs Temp 98.3 F 03/31/21 07:44 Pulse 79 03/31/21 07:47 Resp 19 03/31/21 07:44 BP 128/70 03/31/21 07:47 Pulse Ox 97 03/31/21 07:44 Body Mass Index 22.5 Const: General: cooperative, healthy appearing and comfortable Orientation/consciousness: oriented to person, oriented to place and oriented to time HENMT: Head: Yes normal to inspection Neck: Neck: Yes normal visual inspection Carotids: no bruits Chest: Chest palpation & inspection: normal inspection of the chest Resp: Effort & Inspection: normal respiratory effort and able to speak in complete sentences Auscultation: clear to auscultation bilaterally, no crackles, no rales, no rhonchi and no wheezes Cardio: Rate: regular rate Rhythm: regular rhythm Heart sounds: S1 normal heart sound present and S2 normal heart sound present Bruits: no carotid bruits Peripheral pulses: Peripheral pulses 2+ throughout GI: Inspection: Yes normal to inspection Skin: Other: Neck incision appears well-healed Wounds: no wounds Hair: normal Neuro: General: oriented to person, oriented to place and oriented to time Cranial nerves: Yes CN's II-XII intact bilaterally and Yes Normal hearing present Cognition (Neuro): normal cognition Motor exam (neuro): 5/5 motor strength present throughout Extrem: Other: venous exam: No significant superficial varicosities or spid er telangiectasias, minimal edema General: No clubbing, No cyanosis and No edema Psych: Appearance: grossly normal Mental Status: mental status grossly normal Speech and movement: Normal speech and movement present Results Labs Result diagrams: 03/22/21 05:53 03/31/21 05:24 Labs: Abnormal lab results 03/30/21 03/30/21 03/30/21 Range/Units 11:16 16:09 20:08 BUN (9-16) mg/dL Creatinine (0.5-1.4) mg/dL POC Glucose 203 H 277 H 361 H* (60-115) mg/dL Random Glucose (60-115) mg/dL 03/31/21 03/31/21 Range/Units 05:24 07:10 BUN 22 H (9-16) mg/dL Creatinine 1.45 H (0.5-1.4) mg/dL POC Glucose 227 H (60-115) mg/dL Random Glucose 227 H (60-115) mg/dL BMP 03/31/21 05:24 Sodium 139 Potassium 3.8 Chloride 104 Carbon Dioxide 27 BUN 22 H Creatinine 1.45 H Calcium 8.7 Urine 03/22/21 Range/Units 06:42 Urine Color YELLOW Urine Appearance CLEAR Urine pH 6.0 (5.0-8.0) Ur Specific [place] 1.015 (1.005-1.025) Urine Protein 1+ H (NEG-TRACE) MG/DL Urine Glucose (UA) 100 H (NEG) MG/DL All other labs normal. Assessment and Plan (1) Renal artery stenosis: Status: Acute 1. In addition there is a finding of left renal artery stenosis on ultrasound dated 03/11/2021, may be another source of his hypertension. To better elucidate this once stable a dedicated CT angiogram of the abdomen would be ideal. Unfortunately we are unable to get a CT angiogram due to his renal insufficiency. It may be better to get a dedicated angiogram with possible intervention keeping the dye low down. This was discussed with Cardiology and the hospitalist team. I will schedule him for tomorrow if possible. Thank you for allowing us to assist in his care. If there are any questions or concerns please do not hesitate to contact us. Procedures Date of Service Date of Service: 03/31/21
[2021-03-31 11:13] LABS: Glucose, Whole Blood 187 mg/dL (60-115)
--- NOTE | 2021-03-31 11:22 | P.PNCA_ITS ---
Subjective Subjective Date of Service: 03/31/21 Principal diagnosis: Hypertension, diffuse vascular disease, dysautonomia Interval history: Patient this morning and again significant orthostatic hypotension, without symptoms. Sitting in the chair when I saw him. No lightheadedness. Blood pressure repeated after 30 minutes is still elevated in sitting position. Seen by vascular surgery and discuss case and plan for possible renal angiogram tomorrow and stenting if he has significant left renal artery stenosis. Denies any cardiac symptoms at current time. Review of Systems Constitutional: Reports no additional constitutional complaints Cardiovascular: Reports no additional cardiovascular complaints Respiratory: Reports no additional respiratory complaints Gastrointestinal: Reports no additional gastrointestinal complaints Genitourinary: Reports no additional male genitourinary complaints Reports system reviewed and no additional complaints, except as documented Psychiatric: Reports no additional psychiatric complaints Endocrine: Reports no additional endocrine complaints Physical Exam Vital Signs: Last Vital Signs Temp 97.9 F 03/31/21 10:50 Pulse 74 03/31/21 10:50 Resp 20 03/31/21 10:50 BP 162/90 H 03/31/21 10:50 Pulse Ox 98 03/31/21 10:50 Body Mass Index 22.5 Const General: cooperative, comfortable, no acute distress, alert and awake Nutritional Appearance: average body habitus Orientation/consciousness: patient oriented x3 Neck Neck: Yes trachea midline, Yes supple and Yes no JVD Resp Effort & Inspection: normal respiratory effort Auscultation: clear to auscultation bilaterally Cardio Jugular venous distension: no JVD Palpation: normal PMI Rate: regular rate Rhythm: regular rhythm Heart sounds: S1 normal heart sound present, S2 normal heart sound present and Other heart sounds present (S4 present) GI Auscultation: normal bowel sounds Skin General skin exam: no rashes or lesions noted Neuro General: patient oriented x3 and other (Weakness of the left upper extremity) Extrem General: Yes no clubbing, cyanosis or edema Results Labs and Meds Result diagrams: 03/22/21 05:53 03/31/21 05:24 Lab results: Laboratory Results - last 24 hr 03/30/21 03/30/21 03/31/21 16:09 20:08 05:24 Sodium 139 Potassium 3.8 Chloride 104 Carbon Dioxide 27 Anion Gap 12 BUN 22 H Creatinine 1.45 H Estim Creat Clear Calc 45.6 Estimated GFR 48 POC Glucose 277 H 361 H* Random Glucose 227 H Calcium 8.7 03/31/21 03/31/21 07:10 10:56 Sodium Potassium Chloride Carbon Dioxide Anion Gap BUN Creatinine Estim Creat Clear Calc Estimated GFR POC Glucose 227 H 187 H Random Glucose Calcium Progress Note: A&P Assessment and plan (1) Dysautonomia orthostatic hypotension syndrome: Status: Acute Assessment and Plan: Patient with baseline hypertension after sitting continues to have elevated blood pressure. However also significant orthostatic in upright positioning which puts him at risk for syncopal episodes. Extremely difficult clinical situation to treat. This was discussed again with patient. His blood pressure could be driven by renal artery stenosis. Vascular surgery has seen him and plan for renal angiogram possibly tomorrow and possible stenting if he does have significant renal artery stenosis. This would lead to improvement in his blood pressure control. However this would not correct his dysautonomic syndrome. Etiology of this is not entirely chorea. Neurology does not think this is related to central autonomic dysfunction related to stroke. Possibly related diabetes. Amyloidosis needs to be ruled out. Awaiting urine and serum protein electrophoresis.. Continue with orthostatic precautions. Continue to sit in the chair as long as possible. Also orthostatic training with standing should be pursued. Continue adequate p.o. hydration. Sleeping in a semi reclining position to be pursued. Continue short-acting hydralazine which can be increased to 20 mg at nighttime. (2) CAD (coronary artery disease): Status: Acute Assessment and Plan: Patient with significant diffuse vascular disease including CAD with prior stenting, carotid disease, renal artery stenosis. Given his recurrent CV on dual antiplatelet therapy with aspirin Plavix I think he should be on Brilinta for long-term probably for rest of his life. Continue low-dose aspirin therapy for life. Continue high-intensity statin therapy with target goal LDL closer to 50 mg/dL. Will follow with the patient. Fall Risk Details Current Medications: Current Medications Generic Name Dose Route Start Last Admin Trade Name Freq PRN Reason Stop Dose Admin Acetaminophen 650 mg 03/22/21 02:25 Acetaminophen 325 Mg Tablet PO Q6H PRN Pain, Mild (Pain Scale 1-3) Albuterol Sulfate 2 puff 03/22/21 04:33 Albuterol Sulfate 90 Mcg 8 Gm Inhaler INHALE Q4H PRN Wheezing Aspirin 81 mg 03/22/21 09:00 03/31/21 08:03 Aspirin Enteric Coated 81 Mg Tablet.Dr PO 81 mg DAILY BILLY Administration Atorvastatin Calcium 80 mg 03/22/21 21:00 03/30/21 21:03 Atorvastatin Calcium 80 Mg Tablet PO 80 mg BEDTIME BILLY Administration Baclofen 5 mg 03/22/21 09:00 03/31/21 08:04 Baclofen 10 Mg Tablet PO 5 mg TID BILLY Administration Carvedilol 6.25 mg 03/29/21 21:00 03/31/21 08:06 Carvedilol 3.125 Mg Tablet PO 6.25 mg BID BILLY Administration Protocol Dorzolamide/Timolol 1 drop 03/22/21 09:00 03/31/21 08:49 Dorzolamide/Timolo 2.23%/0.68% 10 Ml Drbtl EYE-BOTH 1 drop BID BILLY Administration Ezetimibe 10 mg 03/22/21 09:00 03/31/21 08:03 Ezetimibe 10 Mg Tablet PO 10 mg DAILY BILLY Administration Emtricitabine/Tenofovir Alafenamide 1 tab 03/22/21 09:00 03/31/21 08:04 Emtricitabine/Tenofov Alafenam Tablet PO 1 tab DAILY [facility] Administration Escitalopram Oxalate 10 mg 03/22/21 09:00 03/31/21 08:03 Escitalopram Oxalate 10 Mg Tablet PO 10 mg DAILY BILLY Administration Famotidine 20 mg 03/22/21 09:00 03/31/21 08:07 Famotidine/Pf 20 Mg/2 Ml Vial IVPUSH 20 mg BID [facility] Administration Hydralazine HCl 10 mg 03/31/21 22:00 Hydralazine Hcl 10 Mg Tablet PO DAILY [facility] Protocol Sodium Chloride 1,000 mls @ 100 mls/hr 04/01/21 04:30 Ns IVCONT .Q10H [facility] Insulin Glargine 10 unit 03/28/21 11:44 03/31/21 08:49 Insulin Glargine,Hum.Rec.Anlog 100 Unit/Ml 10 Ml Vial SUBCUT 10 unit DAILY [facility] Administration Insulin Human Lispro 0 unit 03/22/21 07:30 03/31/21 07:40 Insulin Lispro 100 Unit/Ml 3 Ml Vial SUBCUT 4 unit QIDACHS [facility] Administration Protocol Latanoprost 1 drop 03/22/21 21:00 03/30/21 21:05 Latanoprost 0.005 % Ophth Sandy 2.5 Ml Drops EYE-BOTH 1 drop BEDTIME BILLY Administration Magnesium Hydroxide 30 ml 03/22/21 02:25 Milk Of Magnesia 30 Ml Oral.Susp PO DAILY PRN Constipation Melatonin 6 mg 03/22/21 21:00 03/30/21 21:03 Melatonin 3 Mg Tablet PO 6 mg BEDTIME BILLY Administration Nitroglycerin 0.4 mg 03/22/21 04:33 Nitroglycerin 0.4 Mg Tab.Subl SUBLINGUAL Q5M PRN Chest Pain Ondansetron HCl 4 mg 03/23/21 09:55 03/23/21 11:35 Ondansetron Hcl 4 Mg/2 Ml Vial IVPUSH 4 mg Q6H PRN Administration Nausea and vomitting Sodium Chloride 3 ml 03/22/21 08:00 03/31/21 07:42 0.9 % Sodium Chloride Flush 3 Ml Syringe IVFLUSH 3 ml QSHIFT BILLY Administration Vitamin D 50 mcg 03/22/21 09:00 03/31/21 08:03 Cholecalciferol (Vitamin D3) 25 Mcg Tablet PO 50 mcg DAILY BILLY Administration Time Spent With Patient Time: Total time spent is greater than 50% in coordination of care (as documented) at patient's floor/unit and/or counseling patient: Time with patient: 25 - 35 minutes Procedures Date of Service Date of Service: 03/31/21
--- NOTE | 2021-03-31 14:07 | P.PNIM_ITS ---
Subjective Subjective Date of Service: 03/31/21 <Aria Chambers NP - Last Filed: 03/31/21 15:29> 03/31/21 <Antione Butler MD - Last Filed: 03/31/21 15:55> Interval History: Follow-up orthostatic hypotension and supine hypertension No dizziness, mostly has been in bed <Aria Chambers NP - Last Filed: 03/31/21 15:29> Physical Exam Vital Signs: Vital Signs: Last Vital Signs Temp 97.9 F 03/31/21 10:50 Pulse 74 03/31/21 10:50 Resp 20 03/31/21 10:50 BP 162/90 H 03/31/21 10:50 Pulse Ox 98 03/31/21 10:50 Body Mass Index 22.5 <Aria Chambers NP - Last Filed: 03/31/21 15:29> Appearing in no acute distress lung sounds are clear to auscultation heart regular rate rhythm, clear S1, S2 positive bowel sounds, abdomen is soft, nontender neuro patient is alert x3, no focal deficits <Aria Chambers NP - Last Filed: 03/31/21 15:29> Objective Data Current Medications Generic Name Dose Route Start Last Admin Trade Name Freq PRN Reason Stop Dose Admin Acetaminophen 650 mg 03/22/21 02:25 Acetaminophen 325 Mg Tablet PO Q6H PRN Pain, Mild (Pain Scale 1-3) Albuterol Sulfate 2 puff 03/22/21 04:33 Albuterol Sulfate 90 Mcg 8 Gm Inhaler INHALE Q4H PRN Wheezing Aspirin 81 mg 03/22/21 09:00 03/31/21 08:03 Aspirin Enteric Coated 81 Mg Tablet. PO 81 mg DAILY BILLY Administration Atorvastatin Calcium 80 mg 03/22/21 21:00 03/30/21 21:03 Atorvastatin Calcium 80 Mg Tablet PO 80 mg BEDTIME BILLY Administration Baclofen 5 mg 03/22/21 09:00 03/31/21 08:04 Baclofen 10 Mg Tablet PO 5 mg TID BILLY Administration Carvedilol 6.25 mg 03/29/21 21:00 03/31/21 08:06 Carvedilol 3.125 Mg Tablet PO 6.25 mg BID BILLY Administration Protocol Dorzolamide/Timolol 1 drop 03/22/21 09:00 03/31/21 08:49 Dorzolamide/Timolo 2.23%/0.68% 10 Ml Drbtl EYE-BOTH 1 drop BID BILLY Administration Ezetimibe 10 mg 03/22/21 09:00 03/31/21 08:03 Ezetimibe 10 Mg Tablet PO 10 mg DAILY BILLY Administration Emtricitabine/Tenofovir Alafenamide 1 tab 03/22/21 09:00 03/31/21 08:04 Emtricitabine/Tenofov Alafenam Tablet PO 1 tab DAILY [facility] Administration Escitalopram Oxalate 10 mg 03/22/21 09:00 03/31/21 08:03 Escitalopram Oxalate 10 Mg Tablet PO 10 mg DAILY BILLY Administration Famotidine 20 mg 03/22/21 09:00 03/31/21 08:07 Famotidine/Pf 20 Mg/2 Ml Vial IVPUSH 20 mg BID BILLY Administration Hydralazine HCl 10 mg 03/31/21 22:00 Hydralazine Hcl 10 Mg Tablet PO DAILY [facility] Protocol Sodium Chloride 1,000 mls @ 100 mls/hr 04/01/21 04:30 Ns IVCONT .Q10H [facility] Insulin Glargine 10 unit 03/28/21 11:44 03/31/21 08:49 Insulin Glargine,Hum.Rec.Anlog 100 Unit/Ml 10 Ml Vial SUBCUT 10 unit DAILY [facility] Administration Insulin Human Lispro 0 unit 03/22/21 07:30 03/31/21 11:36 Insulin Lispro 100 Unit/Ml 3 Ml Vial SUBCUT 2 unit QIDACHS [facility] Administration Protocol Latanoprost 1 drop 03/22/21 21:00 03/30/21 21:05 Latanoprost 0.005 % Ophth Sandy 2.5 Ml Drops EYE-BOTH 1 drop BEDTIME [facility] Administration Magnesium Hydroxide 30 ml 03/22/21 02:25 Milk Of Magnesia 30 Ml Oral.Susp PO DAILY PRN Constipation Melatonin 6 mg 03/22/21 21:00 03/30/21 21:03 Melatonin 3 Mg Tablet PO 6 mg BEDTIME BILLY Administration Nitroglycerin 0.4 mg 03/22/21 04:33 Nitroglycerin 0.4 Mg Tab.Subl SUBLINGUAL Q5M PRN Chest Pain Ondansetron HCl 4 mg 03/23/21 09:55 03/23/21 11:35 Ondansetron Hcl 4 Mg/2 Ml Vial IVPUSH 4 mg Q6H PRN Administration Nausea and vomitting Sodium Chloride 3 ml 03/22/21 08:00 03/31/21 07:42 0.9 % Sodium Chloride Flush 3 Ml Syringe IVFLUSH 3 ml QSHIFT BILLY Administration Vitamin D 50 mcg 03/22/21 09:00 03/31/21 08:03 Cholecalciferol (Vitamin D3) 25 Mcg Tablet PO 50 mcg DAILY BILLY Administration <Aria Chambers NP - Last Filed: 03/31/21 15:29> Labs CBC & Chem 7: : 03/22/21 05:53 03/31/21 05:24 <Aria Chambers NP - Last Filed: 03/31/21 15:29> Assessment and Plan (1) CAD (coronary artery disease): Status: Acute <Aria Chambers NP - Last Filed: 03/31/21 15:29> Assessment and Plan: 70-year-old male with a past medical history of hypertension, hyperlipidemia, diabetes, coronary artery disease, CKD, history of CVA with left-sided weakness, abdominal aortic aneurysm, recent admission to the hospital for hypertensive urgency presented to the hospital with a chief complaint of fall/near syncope. Patient denies any loss of consciousness. Renal artery stenosis. -Vascular surgery taking for angiogram tomorrow -NPO after midnight Dysautonomia d/t orthostatic hypotension labile bp Multifactorial etiologies include renal artery stenosis, vascular disease, uncontrolled blood pressure, amyloidosis Seen and evaluated by Neurology and Cardiology -recommendation to check SPEP, UPEP, kappa light chain -hydralazine added, carvedilol continued -outpatient workup for Parkinson's disease Mild MALLY on CKD Repeat lab on 03/24 was better and Creatinine near baseline and will continue to monitor HTN -titrate coreg -hydralazine at night Gastritis -Pepcid Diabetes -Insulin sliding scale -Lantus -ss DVT prophylaxis: SCD boots Code status: Full code Attending: Dr. Butler <Aria Chambers NP - Last Filed: 03/31/21 15:29> (2) Dysautonomia orthostatic hypotension syndrome: Status: Acute <Aria Chambers NP - Last Filed: 03/31/21 15:29> Assessment and Plan: I saw and examined the patient and participated in the curry portion of the E/M service. I agree with the finding, and management as s documented by QUALITY ASSURANCE REPRESENTATIVE. Patient has persistent orthostatic hypOtension, finding of renal artery stenosis.. He will have angiogram tomorrow +/- stent by Dr. Phoenix tomorrow, otherwise, I agree with above <Antionejeane Butler MD - Last Filed: 03/31/21 15:55>
[2021-03-31 16:13] LABS: Glucose, Whole Blood 225 mg/dL (60-115)
--- NOTE | 2021-03-31 16:34 | MHC.CARE ---
CARE team met with pt Consult was requested for depression. Pt was sleeping upon arrival. He states he has support at home and just feels overwhelmed with his medical complexity. Pt shares that he will be having surgery soon and is nervous about this process. T/W offered him support and active listening. I encouraged him to have his nurse reach out to us at a later time if he is interested in talking again.
--- NOTE | 2021-03-31 19:26 | P.PNNP_ITS ---
Subjective Subjective Date of Service: 03/31/21 Principal diagnosis: Hypertension, diffuse vascular disease, dysautonomia Interval history: Seen and examined. Events noted. Physical Exam Vital Signs: Vital Signs: Last Vital Signs Temp 98.7 F 03/31/21 15:39 Pulse 70 03/31/21 15:39 Resp 18 03/31/21 15:39 BP 140/80 H 03/31/21 15:39 Pulse Ox 97 03/31/21 15:39 Body Mass Index 22.5 Const: General: no acute distress and alert Orientation/consciousness: patient oriented x3 Eyes: EOM: EOMs intact bilaterally Neck: Neck: Yes supple and Yes no JVD Resp: Auscultation: no rales and diminished lung sounds Cardio: Jugular venous distension: no JVD Palpation: no palpable S3 Heart sounds: no murmurs GI: Palpation (GI): Soft to palpation Auscultation: normal bowel sounds Neuro: General: patient oriented x3 and moves all extremities Motor exam (neuro): No Asterixis during motor activity present Objective Data Labs CBC & Chem 7: 03/22/21 05:53 03/31/21 05:24 Labs: Laboratory Results - last 24 hr 03/30/21 03/31/21 03/31/21 20:08 05:24 07:10 Sodium 139 Potassium 3.8 Chloride 104 Carbon Dioxide 27 Anion Gap 12 BUN 22 H Creatinine 1.45 H Estim Creat Clear Calc 45.6 Estimated GFR 48 POC Glucose 361 H* 227 H Random Glucose 227 H Calcium 8.7 03/31/21 03/31/21 10:56 16:01 Sodium Potassium Chloride Carbon Dioxide Anion Gap BUN Creatinine Estim Creat Clear Calc Estimated GFR POC Glucose 187 H 225 H Random Glucose Calcium Assessment & Plan Assessment and plan (1) CKD (chronic kidney disease) stage 3, GFR 30-59 ml/min: Status: Acute Assessment and Plan: 1. SHOH: appears to a new development ? coincident with after his CVA;impressive drops of BP with upright position; prior ECHO reveal DDys func and non- complaint/stiff heart; ; lack of incr HR ? d/t BBlocker or autonomic failure or both Challenging management issueand need to find sweet spot with control of supine HTN and avoid debilitation orhtstasis prior U/S showed asymmetric kidneys and doppler very suggestive of ABRAHAM in the larger kidney 2. CKD 3: msot c/w DN/HTN renal dis; r/o dysproteinemia makes sense as well REC: vasc evaluating option and now with SCr decr could reconsider CTA if SCr remains < 1.5 as risk from dye is less vs going directly to Renal Angiogram; cont with short actting BP med qhs; avoid lowering BP to much given h/o cva Time Spent With Patient Time: Total time spent is greater than 50% in coordination of care (as documented) at patient's floor/unit and/or counseling patient: Procedures Date of Service Date of Service: 03/31/21
[2021-03-31 20:21] LABS: Glucose, Whole Blood 217 mg/dL (60-115)
[2021-03-31] MEDS: Melatonin 3 MG TABLET 6 MG PO (20:58)
[2021-03-31] MEDS: Atorvastatin Calcium 80 MG TABLET PO (21:00)
[2021-03-31] MEDS: Latanoprost 0.005 % Ophth Sol 2.5 ML DROPS 1 DROP EYE-BOTH (21:03)
[2021-03-31] MEDS: hydrALAZINE HCl 10 MG TABLET PO (21:27)
[2021-04-01] VITALS (32 sets, daily range): BP systolic 136–233; BP diastolic 62–114; PULSE 62–93; RESP 15–20; TEMP 36–37.6; O2SAT 96–100
--- NOTE | 2021-04-01 02:45 | MHC.PIE ---
p - pt with supine hypertension 174/81 manual RA asymptomatic with sleep. recheck 15 178/84 hr 62 nSR BBB & scheduled for bilat renal artery angiogram this am. i - notified Dr Beal - no new orders regarding bp. questioned whether to start IVF at 04:30 as order, to hold ivf. question for type and screen, new orders obtained for type & screen. e - will continue to monitor
--- NOTE | 2021-04-01 05:57 | MHC.PIE ---
p - pt with bp 198/84 hr 62 manual rue denies h/a or blurry vision recheck 15 188/80 hr 63 i - notified dr. fernando notified via coretext and read, no new orders or checklist done e - continue to monitor. continue to hold ivf ordered for 429.
[2021-04-01 06:45] LABS: Glucose, Whole Blood 230 mg/dL (60-115)
[2021-04-01 06:48] LABS: Prothrombin Time 11.5 SEC (10.8-13.0)
[2021-04-01 06:50] LABS: Partial Thromboplastin Time 31.5 SEC (24.1-38.0)
[2021-04-01 06:52] LABS: Hemoglobin 12.4 g/dl (14.0-18.0); Mean Corpuscular HGB Conc 34.4 g/dl (31.0-36.0); Mean Corpuscular Hemoglobin 32.5 pg (27.0-33.0); Mean Corpuscular Volume 94.5 fL (80-98); Mean Platelet Volume 8.8 fL (9.4-12.4); Platelet Count 233 X10*3/uL (160-400); Red Blood Count 3.81 X10*6/uL (4.60-5.80); Red Cell Distribution Width 13.1 % (11.0-16.0); White Blood Count 9.3 X10*3/uL (4.8-10.8)
--- NOTE | 2021-04-01 07:24 | PC.NURSE ---
Patient arrived to [facility] from floor. BP on arrival, 200/83, pulse 63. Patient asymptomatic. Patient prepped for surgery and BP rechecked manually, 220/92, pulse 63, continues to be asymptomatic, resting comfortably. Cardiac medications due at around 9am according to DIANN. Dr. Phoenix notified of this and of BP results. No new orders at this time.
--- NOTE | 2021-04-01 07:33 | PC.NURSE ---
Dentures left in patients mouth when transferred to Radiology. OK per Radiology nurse.
--- NOTE | 2021-04-01 10:59 | W.PM.OPN ---
Operative Note Operative Note Date of Service: 04/01/21 Narrative: Angiogram report from [facility] Preoperative diagnosis: Atherosclerosis with renal artery stenosis Postoperative diagnosis: Same Procedure: 1. Ultrasound-guided right common femoral access 2. Aortogram with selective left renal artery cannulation 3. Left renal artery stent placement Surgeon:Marvin Phoenix M.D. Assistant Restaurant General Manager:None Anesthesia: Local with moderate conscious sedation for a total of 113 minutes, performed by mo Specimens:none Drains:none Estimated blood loss: 100 mL Contrast used: 100 mL Indications: 70-year-old gentleman with uncontrolled hypertension. Upon noninvasive workup he was noted to have left renal artery stenosis. Unfortunately due to his renal function we were unable to get CT angiogram. A decision was made to go for directed angiogram with possible intervention. The patient has signed the informed consent after reviewing risks, complications, benefits, and alternatives previously discussed with the patient yesterday at hospital bedside. The patient was given the opportunity to ask any additional questions or voice any concerns. All questions were answered to the patient's satisfaction. Procedure in detail: Patient was brought to the angiography suite prior to which a time-out was called for patient identification and site verification. Bilateral groins were prepped and draped in the standard surgical fashion. Under ultrasound guidance right common femoral was punctured with micro puncture needle and wire. Subsequently a precision 4 [place] sheath was then placed. [place] wire was advanced to the level of the aorta. 4 [place] Flush catheter was brought up and parked at the level of the renal arteries. Aortogram was then undertaken. Catheter was brought down to the level of the iliac bifurcation. Iliacs were subsequently imaged. Catheter was then brought in up into left renal artery. This was selectively cannulated an images were taken. There was multiple orthogonal views undertaken. It was noted that there was at least a 50% stenosis just beyond the origin of the left renal artery. At this point it was decided then intervention was indicated. 4000 units of systemic heparin was administered. After 5 minutes of circulation time we exchanged for a 6 [place]ian destination sheath. We were able to selectively cannulate the left renal artery. We advanced a a Glidewire Advantage 035. Unfortunately we were unable to get good purchase an at the wire kept kicking out. We switched out to multiple different wires including a regular Glidewire and a stiff angled glide by wire both 035. Once again we were unable to get good purchase and a kept kicking out. At this point a decision was made to downsize to a 5 [place] system. We exchanged out for a 5 [place]ian destination sheath. We brought this up to the level of the renals. We were able to advance an 035 stiff angled glide into the renal artery once again. And the 5 [place] sheath was able to follow finally. We then removed the inner cannula and down sized to a Glidewire Advantage 018. At this point we 1st brought in a paramount Mini stent which was 5 x 18. This was a balloon expandable stent. After deployment there was concern of some still residual stenosis at the origin. A 2nd stent 5 x 14 paramount Mini stent was brought back in and deployed proximal to the prior stent. Excellent result was achieved. Catheter was brought back into the renal artery and completion angiogram demonstrated excellent result. Catheter wire sheath was then brought down to the right common femoral. Through this sheath we interrogated the right common femoral which appeared to have appropriate puncture. StarClose closure device was deployed. Adequate hemostasis was achieved. Patient tolerated the procedure well returned to recovery with stable vitals. At the end the case sponge needle instrument counts were correct. Interpretation of films: 1. Ultrasound demonstrates appropriate femoral puncture. Image of which was saved. 2. Aortogram demonstrates appropriate caliber aorta. Minimal disease. Appropriate take-off of the renals. 3. Iliac images demonstrate minimal disease. 4. Left renal appeared to be normal did have a posterior takeoff did not demonstrate any significant disease. Left side had 2 renal arteries. The inferior being more dominant. There was stenosis at the origin of the left renal artery. Post stent placement demonstrated excellent result. Conclusion: 1. Successful left renal artery stent placement. He is being maintained on Brilinta. This note is constructed using voice recognition software. While every effort has been made to ensure accuracy, banquet supervisor errors may have been included. Thank you for allowing me to participate in the care of your patient. Yours sincerely, Marvin Phoenix MD, FACS, R.P.V.I.
[2021-04-01] MEDS: Lidocaine HCl 1 % MPF 5 ML VIAL 10 ML SUBCUT (11:59)
[2021-04-01] MEDS: iohexoL 300 MG/ML 100 ML INFUS..BTL IV (11:59)
[2021-04-01] MEDS: Escitalopram Oxalate 10 MG TABLET PO (13:13)
[2021-04-01] MEDS: hydrALAZINE HCl 10 MG TABLET PO (13:13)
[2021-04-01] MEDS: Ezetimibe 10 MG TABLET PO (13:14)
[2021-04-01] MEDS: Cholecalciferol (Vitamin D3) 25 MCG TABLET 50 MCG PO (13:14)
[2021-04-01 13:15] LABS: Glucose, Whole Blood 242 mg/dL (60-115)
[2021-04-01] MEDS: oxyCODONE HCl Immed Release 5 MG TABLET PO ×3 (13:25→21:18)
[2021-04-01] MEDS: carvediloL 3.125 MG TABLET 6.25 MG PO ×2 (13:25→19:51)
[2021-04-01] MEDS: Insulin Lispro 100 UNIT/ML 3 ML VIAL SUBCUT (13:30)
[2021-04-01] MEDS: Dorzolamide/Timolo 2.23%/0.68% 10 ML DRBTL 1 DROP EYE-BOTH ×2 (13:30→20:00)
[2021-04-01] MEDS: ondansetron HCL 4 MG/2 ML VIAL IVPUSH (14:04)
--- NOTE | 2021-04-01 15:11 | P.PNIM_ITS ---
Subjective Subjective Date of Service: 04/01/21 <DE Turner - Last Filed: 04/01/21 16:51> 04/01/21 <Antione Butler MD - Last Filed: 04/01/21 17:36> Interval History: seen and examined this afternoon. s/p left renal stent placement complaining of back pain following procedure across lower back as well as nausea <DE Turner - Last Filed: 04/01/21 16:51> Physical Exam Vital Signs: Vital Signs: Last Vital Signs Temp 99.2 F 04/01/21 14:30 Pulse 80 04/01/21 15:00 Resp 15 04/01/21 15:00 BP 210/103 H 04/01/21 15:00 Pulse Ox 97 04/01/21 15:00 Body Mass Index 22.5 <DE Turner - Last Filed: 04/01/21 16:51> Const: Other: appears uncomforable <DE Turner - Last Filed: 04/01/21 16:51> General: alert and awake <DE Turner - Last Filed: 04/01/21 16:51> Nutritional Appearance: well nourished <DE Turner - Last Filed: 04/01/21 16:51> HENMT: Head: Yes normocephalic and Yes atraumatic <DE Turner - Last Filed: 04/01/21 16:51> Eyes: Sclerae: sclerae normal <DE Turner - Last Filed: 04/01/21 16:51> Chest: Chest palpation & inspection: normal inspection of the chest <DE Turner - Last Filed: 04/01/21 16:51> Resp: Effort & Inspection: normal respiratory effort and no respiratory distress <DE Turner - Last Filed: 04/01/21 16:51> Cardio: Rate: regular rate <DE Turner Last Filed: 04/01/21 16:51> Rhythm: regular rhythm <DE Turner - Last Filed: 04/01/21 16:51> GI: Palpation (GI): Soft to palpation and nontender <DE Turner - Last Filed: 04/01/21 16:51> Neuro: Cranial nerves: Yes CN's II-XII intact bilaterally and Yes Bilaterally intact EOM present <DE Turner - Last Filed: 04/01/21 16:51> Extrem: Other: dressing right groin <DE Turner - Last Filed: 0 04/01/21 16:51> Objective Data Current Medications Generic Name Dose Route Start Last Admin Trade Name Freq PRN Reason Stop Dose Admin Acetaminophen 650 mg 03/22/21 02:25 Acetaminophen 325 Mg Tablet PO Q6H PRN Pain, Mild (Pain Scale 1-3) Albuterol Sulfate 2 puff 03/22/21 04:33 Albuterol Sulfate 90 Mcg 8 Gm Inhaler INHALE Q4H PRN Wheezing Aspirin 81 mg 03/22/21 09:00 04/01/21 12:26 Aspirin Enteric Coated 81 Mg Tablet.Dr PO Not Given DAILY [facility]Y Atorvastatin Calcium 80 mg 03/22/21 21:00 03/31/21 21:00 Atorvastatin Calcium 80 Mg Tablet PO 80 mg BEDTIME [facility]Y Administration Baclofen 5 mg 03/22/21 09:00 04/01/21 12:26 Baclofen 10 Mg Tablet PO Not Given TID [facility]ILLY Carvedilol 6.25 mg 03/29/21 21:00 04/01/21 13:25 Carvedilol 3.125 Mg Tablet PO 6.25 mg BID BILLY Administration Protocol Dorzolamide/Timolol 1 drop 03/22/21 09:00 04/01/21 13:30 Dorzolamide/Timolo 2.23%/0.68% 10 Ml Drbtl EYE-BOTH 1 drop BID [facility]Y Administration Ezetimibe 10 mg 03/22/21 09:00 04/01/21 13:14 Ezetimibe 10 Mg Tablet PO 10 mg DAILY [facility] Administration Emtricitabine/Tenofovir Alafenamide 1 tab 03/22/21 09:00 03/31/21 08:04 Emtricitabine/Tenofov Alafenam Tablet PO 1 tab DAILY [facility] Administration Escitalopram Oxalate 10 mg 03/22/21 09:00 04/01/21 13:13 Escitalopram Oxalate 10 Mg Tablet PO 10 mg DAILY [facility] Administration Famotidine 20 mg 03/22/21 09:00 04/01/21 13:27 Famotidine/Pf 20 Mg/2 Ml Vial IVPUSH Not Given BID [facility] Hydralazine HCl 10 mg 03/31/21 22:00 04/01/21 13:13 Hydralazine Hcl 10 Mg Tablet PO 10 mg DAILY [facility] Administration Protocol Sodium Chloride 1,000 mls @ 100 mls/hr 04/01/21 04:30 04/01/21 03:36 Ns IVCONT Not Given .Q10H [facility] Promethazine HCl 12.5 mg/ 50.5 mls @ 202 mls/hr 04/01/21 10:57 04/01/21 10:45 Sodium Chloride IV Infused Q4H PRN Infusion Nausea Insulin Glargine 10 unit 03/28/21 11:44 04/01/21 13:30 Insulin Glargine,Hum.Rec.Anlog 100 Unit/Ml 10 Ml Vial SUBCUT Not Given DAILY [facility] Insulin Human Lispro 0 unit 03/22/21 07:30 04/01/21 13:30 Insulin Lispro 100 Unit/Ml 3 Ml Vial SUBCUT 4 unit QIDACHS [facility] Administration Protocol Latanoprost 1 drop 03/22/21 21:00 03/31/21 21:03 Latanoprost 0.005 % Ophth Sandy 2.5 Ml Drops EYE-BOTH 1 drop BEDTIME [facility] Administration Magnesium Hydroxide 30 ml 03/22/21 02:25 Milk Of Magnesia 30 Ml Oral.Susp PO DAILY PRN Constipation Melatonin 6 mg 03/22/21 21:00 03/31/21 20:58 Melatonin 3 Mg Tablet PO 6 mg BEDTIME [facility] Administration Nitroglycerin 0.4 mg 03/22/21 04:33 Nitroglycerin 0.4 Mg Tab.Subl SUBLINGUAL Q5M PRN Chest Pain Ondansetron HCl 4 mg 03/23/21 09:55 04/01/21 14:04 Ondansetron Hcl 4 Mg/2 Ml Vial IVPUSH 4 mg Q6H PRN Administration Nausea and vomitting Oxycodone HCl 5 mg 04/01/21 10:56 04/01/21 13:25 Oxycodone Hcl Immed Release 5 Mg Tablet PO 5 mg Q4H PRN Administration Pain, Moderate (Pain Scale 4-6 Sodium Chloride 3 ml 03/22/21 08:00 04/01/21 12:26 0.9 % Sodium Chloride Flush 3 Ml Syringe IVFLUSH Not Given QSHIFT [facility] Vitamin D 50 mcg 03/22/21 09:00 04/01/21 13:14 Cholecalciferol (Vitamin D3) 25 Mcg Tablet PO 50 mcg DAILY [facility]Y Administration <DE Turner - Last Filed: 04/01/21 16:51> Labs CBC & Chem 7: : 04/01/21 05:30 03/31/21 05:24 <DE Turner - Last Filed: 04/01/21 16:51> Assessment and Plan (1) Renal artery stenosis: Status: Acute <DE Turner - Last Filed: 04/01/21 16:51> (2) Dysautonomia orthostatic hypotension syndrome: Status: Acute <DE Turner - Last Filed: 04/01/21 16:51> Assessment and Plan: This is a 70-year-old male with a past medical history of hypertension, hyperlipidemia, diabetes, coronary artery disease, CKD, history of CVA with left-sided weakness, abdominal aortic aneurysm, recent admission to the hospital for hypertensive urgency presented to the hospital with a chief complaint of fall/near syncope here with difficult to control orthostatic hypotension and supine hypertension orthostatic hypotension with supine hypertension labile bp, difficult to control Possible etiologies include renal artery stenosis, vascular disease, autonomic dysfunction Seen and evaluated by Neurology and Cardiology -orthostatic precautions, sleep in reclined position when able -recommendation to check SPEP, UPEP, kappa light chain to eval for amyloidosis, pending -continue hydralazine, carvedilol -outpatient workup for Parkinson's disease -s/p left renal artery stent Renal artery stenosis. s/p left renal artery stent 04/01 -Vascular following -pain mangement uncontrolled HTN. pt asymptomatic. no cp, sob, headache, vision changes at this time BP high following procedure, pain may be contributing given am meds upon return to floor(did not receive them prior to procedure) with little effect. will give now dose of hydralazine -continue coreg, hydralazine po -pain control -monitor BP closely h/o CVA -continue asa, brilinta and statin CKD 3 renal function at baseline -Follow renal function -aldactone being held CAD -continue life long brilinta and asa -continue statin Gastritis -Pepcid, change to Po tomorrow Diabetes -continue Insulin sliding scale -tresiba converted to Lantus Mood -continue lexapro HLD -continue statin, zetia DVT prophylaxis: SCD boots, will discuss with vascular when able to start chemoprophylaxis Code status: Full code Attending: Dr. Butler <DE Turner - Last Filed: 04/01/21 16:51> (3) Uncontrolled hypertension: Status: Acute <DE Turner - Last Filed: 04/01/21 16:51> Assessment and Plan: I saw and examined the patient independently and discussed finding and management with PA and I agree with above, except if stated otherwise. <Antione Butler MD - Last Filed: 04/01/21 17:36>
[2021-04-01] MEDS: Morphine Sulfate 2 MG/ML CARTRIDGE IVPUSH (15:28)
[2021-04-01] MEDS: hydrALAZINE HCl 20 MG/ML VIAL 5 MG IVPUSH (15:30)
[2021-04-01] MEDS: Baclofen 10 MG TABLET 5 MG PO ×2 (16:02→19:50)
[2021-04-01 16:05] LABS: Glucose, Whole Blood 137 mg/dL (60-115)
[2021-04-01] MEDS: Famotidine/PF 20 MG/2 ML VIAL IVPUSH (19:50)
[2021-04-01] MEDS: hydrALAZINE HCl 20 MG/ML VIAL 10 MG IVPUSH (19:50)
[2021-04-01] MEDS: hydrALAZINE HCl 25 MG TABLET PO (19:51)
[2021-04-01] MEDS: Melatonin 3 MG TABLET 6 MG PO (19:51)
[2021-04-01] MEDS: Atorvastatin Calcium 80 MG TABLET PO (19:51)
[2021-04-01 19:53] LABS: Glucose, Whole Blood 145 mg/dL (60-115)
[2021-04-01] MEDS: Latanoprost 0.005 % Ophth Sol 2.5 ML DROPS 1 DROP EYE-BOTH (20:00)
[2021-04-01] MEDS: Acetaminophen 325 MG TABLET 650 MG PO (21:18)
[2021-04-01] MEDS: 0.9 % Sodium Chloride Flush 3 ML SYRINGE IVFLUSH (21:19)
[2021-04-02] VITALS (9 sets, daily range): BP systolic 155–210; BP diastolic 76–94; PULSE 70–83; RESP 16–20; TEMP 36.1–37.7; O2SAT 96–99
[2021-04-02 07:01] LABS: Hematocrit 35.9 % (42-52); Hemoglobin 12.2 g/dl (14.0-18.0); Mean Corpuscular Hemoglobin 32.3 pg (27.0-33.0); Platelet Count 236 X10*3/uL (160-400); Red Blood Count 3.78 X10*6/uL (4.60-5.80); Red Cell Distribution Width 13.4 % (11.0-16.0); White Blood Count 10.7 X10*3/uL (4.8-10.8)
[2021-04-02 07:18] LABS: Glucose, Whole Blood 188 mg/dL (60-115)
[2021-04-02 07:18] LABS: Anion Gap 15 (12-20); Blood Urea Nitrogen 33 mg/dL (9-16); Calcium 8.7 mg/dL (8.4-10.2); Carbon Dioxide 25 mmol/L (22-29); Chloride 103 mmol/L (96-108); Creatinine Clr Calc Pharmacy 26.3; Estimated Glomerular Filt Rate 26; Glucose Random 187 mg/dL (60-115); Potassium 3.9 mmol/L (3.3-5.1); Sodium 139 mmol/L (135-145)
[2021-04-02] MEDS: Insulin Lispro 100 UNIT/ML 3 ML VIAL SUBCUT ×4 (07:43→20:48)
[2021-04-02] MEDS: 0.9 % Sodium Chloride Flush 3 ML SYRINGE IVFLUSH (07:43)
[2021-04-02] MEDS: Ezetimibe 10 MG TABLET PO (08:03)
[2021-04-02] MEDS: Famotidine/PF 20 MG/2 ML VIAL IVPUSH (08:03)
[2021-04-02] MEDS: Lactated Ringers 1,000 ML 80 ML IVCONT ×2 (08:03→20:28)
[2021-04-02] MEDS: Baclofen 10 MG TABLET 5 MG PO (08:03)
[2021-04-02] MEDS: Dorzolamide/Timolo 2.23%/0.68% 10 ML DRBTL 1 DROP EYE-BOTH ×2 (08:03→20:48)
[2021-04-02] MEDS: Aspirin Enteric Coated 81 MG TABLET.DR PO (08:03)
[2021-04-02] MEDS: Cholecalciferol (Vitamin D3) 25 MCG TABLET 50 MCG PO (08:04)
[2021-04-02] MEDS: Emtricitabine/Tenofov Alafenam TABLET 1 TAB PO (08:04)
[2021-04-02] MEDS: carvediloL 3.125 MG TABLET 6.25 MG PO ×2 (08:04→20:49)
[2021-04-02] MEDS: Escitalopram Oxalate 10 MG TABLET PO (08:04)
--- NOTE | 2021-04-02 08:58 | P.PNVS_ITS ---
Subjective Subjective Date of Service: 04/02/21 Patient reports: no new complaints and feels better Interval history: Patient seen and examined. Status post left renal stent. No significant events overnight. Pain has significantly improved. Left shoulder and back pain has improved significantly. Tolerating diet this morning. In good spirits Physical Exam Vital Signs: Vital Signs: Last Vital Signs Temp 97.7 F 04/02/21 07:14 Pulse 78 04/02/21 07:14 Resp 20 04/02/21 07:14 BP 196/94 H 04/02/21 07:14 Pulse Ox 96 04/02/21 07:14 Body Mass Index 22.5 Const: General: cooperative, healthy appearing and no acute distress Orientation/consciousness: oriented to person, oriented to place and oriented to time HENMT: Head: Yes normal to inspection Neck: Carotids: no bruits Chest: Chest palpation & inspection: normal inspection of the chest Resp: Effort & Inspection: normal respiratory effort and able to speak in complete sentences Auscultation: clear to auscultation bilaterally Cardio: Rate: regular rate Heart sounds: S1 normal heart sound present and S2 normal heart sound present GI: Inspection: Yes normal to inspection Skin: Other: Right groin minimal hematoma General skin exam: no rashes or lesions noted Wounds: no wounds Neuro: General: oriented to person, oriented to place, oriented to time and CN 's II-XI intact bilaterally Extrem: General: Yes normal to inspection, Yes full ROM and Yes no clubbing, cyanosis or edema Psych: Appearance: grossly normal and well kempt Speech and movement: Normal speech and movement present Affect: normal affect Progress Note: A&P Assessment and plan (1) Renal artery stenosis: Status: Acute Assessment and Plan: Patient doing well status post left renal artery stent. May restart all anticoagulation and DVT prophylaxis. Hopefully this will decreases blood pressure. Of concern is decrease in renal function. A total of 100 mL of contrast was used during the procedure. He was hydrated well preprocedure and postprocedure. Continue monitoring of renal function. Thank you for allowing us to assist in his care. Fall Risk Details Current Medications: Current Medications Generic Name Dose Route Start Last Admin Trade Name Freq PRN Reason Stop Dose Admin Acetaminophen 650 mg 03/22/21 02:25 04/01/21 21:18 Acetaminophen 325 Mg Tablet PO 650 mg Q6H PRN Administration Pain, Mild (Pain Scale 1-3) Albuterol Sulfate 2 puff 03/22/21 04:33 Albuterol Sulfate 90 Mcg 8 Gm Inhaler INHALE Q4H PRN Wheezing Aspirin 81 mg 03/22/21 09:00 04/02/21 08:03 Aspirin Enteric Coated 81 Mg Tablet.Dr PO 81 mg DAILY [facility] Administration Atorvastatin Calcium 80 mg 03/22/21 21:00 04/01/21 19:51 Atorvastatin Calcium 80 Mg Tablet PO 80 mg BEDTIME BILLY Administration Baclofen 5 mg 03/22/21 09:00 04/02/21 08:03 Baclofen 10 Mg Tablet PO 5 mg TID BILLY Administration Carvedilol 6.25 mg 03/29/21 21:00 04/02/21 08:04 Carvedilol 3.125 Mg Tablet PO 6.25 mg BID BILLY Administration Protocol Dorzolamide/Timolol 1 drop 03/22/21 09:00 04/02/21 08:03 Dorzolamide/Timolo 2.23%/0.68% 10 Ml Drbtl EYE-BOTH 1 drop BID [facility]Y Administration Ezetimibe 10 mg 03/22/21 09:00 04/02/21 08:03 Ezetimibe 10 Mg Tablet PO 10 mg DAILY [facility] Administration Emtricitabine/Tenofovir Alafenamide 1 tab 03/22/21 09:00 04/02/21 08:04 Emtricitabine/Tenofov Alafenam Tablet PO 1 tab DAILY [facility] Administration Escitalopram Oxalate 10 mg 03/22/21 09:00 04/02/21 08:04 Escitalopram Oxalate 10 Mg Tablet PO 10 mg DAILY [facility] Administration Famotidine 20 mg 03/22/21 09:00 04/02/21 08:03 Famotidine/Pf 20 Mg/2 Ml Vial IVPUSH 20 mg BID [facility]ILLY Administration Hydralazine HCl 10 mg 04/02/21 22:00 Hydralazine Hcl 25 Mg Tablet PO DAILY [facility] Protocol Promethazine HCl 12.5 mg/ 50.5 mls @ 202 mls/hr 04/01/21 10:57 04/01/21 10:45 Sodium Chloride IV Infused Q4H PRN Infusion Nausea Lactated Ringer's 1,000 mls @ 80 mls/hr 04/02/21 07:45 04/02/21 08:03 Lr IVCONT 80 mls/hr .[id number] [facility] Administration Insulin Glargine 10 unit 03/28/21 11:44 04/01/21 13:30 Insulin Glargine,Hum.Rec.Anlog 100 Unit/Ml 10 Ml Vial SUBCUT Not Given DAILY [facility] Insulin Human Lispro 0 unit 03/22/21 07:30 04/02/21 07:43 Insulin Lispro 100 Unit/Ml 3 Ml Vial SUBCUT 2 unit QIDACHS [facility] Administration Protocol Latanoprost 1 drop 03/22/21 21:00 04/01/21 20:00 Latanoprost 0.005 % Ophth Sandy 2.5 Ml Drops EYE-BOTH 1 drop BEDTIME [facility] Administration Magnesium Hydroxide 30 ml 03/22/21 02:25 Milk Of Magnesia 30 Ml Oral.Susp PO DAILY PRN Constipation Melatonin 6 mg 03/22/21 21:00 04/01/21 19:51 Melatonin 3 Mg Tablet PO 6 mg BEDTIME [facility] Administration Nitroglycerin 0.4 mg 03/22/21 04:33 Nitroglycerin 0.4 Mg Tab.Subl SUBLINGUAL Q5M PRN Chest Pain Ondansetron HCl 4 mg 03/23/21 09:55 04/01/21 14:04 Ondansetron Hcl 4 Mg/2 Ml Vial IVPUSH 4 mg Q6H PRN Administration Nausea and vomitting Oxycodone HCl 5 mg 04/01/21 10:56 04/01/21 21:18 Oxycodone Hcl Immed Release 5 Mg Tablet PO 5 mg Q4H PRN Administration Pain, Moderate (Pain Scale 4-6 Sodium Chloride 3 ml 03/22/21 08:00 04/02/21 07:43 0.9 % Sodium Chloride Flush 3 Ml Syringe IVFLUSH 3 ml QSHIFT [facility]Y Administration Vitamin D 50 mcg 03/22/21 09:00 04/02/21 08:04 Cholecalciferol (Vitamin D3) 25 Mcg Tablet PO 50 mcg DAILY [facility] Administration Time Spent With Patient Time: Total time spent is greater than 50% in coordination of care (as documented) at patient's floor/unit and/or counseling patient: Time with patient: 25 - 35 minutes Procedures Date of Service Date of Service: 04/02/21
[2021-04-02] MEDS: Insulin Glargine,Hum.rec.anlog 100 UNIT/ML 10 ML VIAL 10 UNIT SUBCUT (09:06)
[2021-04-02] MEDS: Heparin Sodium,Porcine 5,000 UNIT/ML VIAL 5000 UNIT SUBCUT ×2 (10:00→20:48)
--- NOTE | 2021-04-02 10:23 | MHC.CM.PN ---
Per Patient/Family (SISTER/HCP/BRIAN @ [phone]) request, Patient's first choice for dc is STR @ [facility] and also agreeable to referrals put out to SNFs.CM will follow.
[2021-04-02 11:08] LABS: Glucose, Whole Blood 255 mg/dL (60-115)
--- NOTE | 2021-04-02 12:05 | HO.PM.IMPN ---
Subjective Subjective Date of Service: 04/02/21 <DE Turner - Last Filed: 04/02/21 13:09> 04/02/21 <Antione Butler MD - Last Filed: 04/02/21 17:37> Interval History: Seen and exam this morning, follow-up for supine hypertension and orthostatic hypotension Observed sitting in bed eating breakfast Status post left renal artery stent yesterday Feeling much better this morning. Back pain and left shoulder pain have resolved Denies chest pain, palpitations, headache, visual changes <DE Turner - Last Filed: 04/02/21 13:09> Review of Systems Review of Systems: Yes all other systems are reviewed and are negative <DE Turner - Last Filed: 04/02/21 13:09> Constitutional Constitutional: Denies chills and Denies fever(s) <DE Turner - Last Filed: 04/02/21 13:09> Cardiovascular Cardiovascular: Denies chest pain <DE Turner - Last Filed: 04/02/21 13:09> Respiratory Respiratory: Denies cough <DE Turner - Last Filed: 04/02/21 13:09> Gastrointestinal Gastrointestinal: Denies abdominal pain <DE Turner Last Filed: 04/02/21 13:09> Physical Exam Vital Signs: Vital Signs: Last Vital Signs Temp 97.2 F 04/02/21 11:06 Pulse 83 04/02/21 11:06 Resp 18 04/02/21 11:06 BP 158/80 H 04/02/21 11:06 Pulse Ox 96 04/02/21 11:06 Body Mass Index 22.5 <DE Turner - Last Filed: 04/02/21 13:09> Const: General: comfortable, alert and awake <DE Turner - Last Filed: 04/02/21 13:09> Nutritional Appearance: well nourished <DE Turner Last Filed: 04/02/21 13:09> HENMT: Head: Yes normocephalic and Yes atraumatic <DE Turner Last Filed: 04/02/21 13:09> Eyes: Sclerae: sclerae normal <DE Turner Last Filed: 04/02/21 13:09> Chest: Chest palpation & inspection: normal inspection of the chest <DE Turner Last Filed: 04/02/21 13:09> Resp: Effort & Inspection: normal respiratory effort and no respiratory distress <DE Turner Last Filed: 04/02/21 13:09> Cardio: Rate: regular rate <DE Turner Last Filed: 04/02/21 13:09> Rhythm: regular rhythm <DE Turner Last Filed: 04/02/21 13:09> GI: Palpation (GI): Soft to palpation and nontender <DE Turner Last Filed: 04/02/21 13:09> Neuro: Cranial nerves: Yes CN's II-XII intact bilaterally and Yes Bilaterally intact EOM present <DE Turner Last Filed: 04/02/21 13:09> Extrem: Other: dressing right groin; no leg edema <DE Turner Last Filed: 04/02/21 13:09> Objective Data Current Medications Generic Name Dose Route Start Last Admin Trade Name Freq PRN Reason Stop Dose Admin Acetaminophen 650 mg 03/22/21 02:25 04/01/21 21:18 Acetaminophen 325 Mg Tablet PO 650 mg Q6H PRN Administration Pain, Mild (Pain Scale 1-3) Albuterol Sulfate 2 puff 03/22/21 04:33 Albuterol Sulfate 90 Mcg 8 Gm Inhaler INHALE Q4H PRN Wheezing Aspirin 81 mg 03/22/21 09:00 04/02/21 08:03 Aspirin Enteric Coated 81 Mg Tablet.Dr PO 81 mg DAILY [facility]ILLY Administration Atorvastatin Calcium 80 mg 03/22/21 21:00 04/01/21 19:51 Atorvastatin Calcium 80 Mg Tablet PO 80 mg BEDTIME [facility]Y Administration Baclofen 5 mg 03/22/21 09:00 04/02/21 08:03 Baclofen 10 Mg Tablet PO 5 mg TID BILLY Administration Carvedilol 6.25 mg 03/29/21 21:00 04/02/21 08:04 Carvedilol 3.125 Mg Tablet PO 6.25 mg BID BILLY Administration Protocol Dorzolamide/Timolol 1 drop 03/22/21 09:00 04/02/21 08:03 Dorzolamide/Timolo 2.23%/0.68% 10 Ml Drbtl EYE-BOTH 1 drop BID [facility]ILLY Administration Ezetimibe 10 mg 03/22/21 09:00 04/02/21 08:03 Ezetimibe 10 Mg Tablet PO 10 mg DAILY [facility]Y Administration Emtricitabine/Tenofovir Alafenamide 1 tab 03/22/21 09:00 04/02/21 08:04 Emtricitabine/Tenofov Alafenam Tablet PO 1 tab DAILY [facility] Administration Escitalopram Oxalate 10 mg 03/22/21 09:00 04/02/21 08:04 Escitalopram Oxalate 10 Mg Tablet PO 10 mg DAILY [facility] Administration Famotidine 20 mg 03/22/21 09:00 04/02/21 08:03 Famotidine/Pf 20 Mg/2 Ml Vial IVPUSH 20 mg BID [facility]ILLY Administration Heparin Sodium (Porcine) 5,000 unit 04/02/21 09:30 04/02/21 10:00 Heparin Sodium,Porcine 5,000 Unit/Ml Vial SUBCUT 5,000 unit Q12H [facility] Administration Hydralazine HCl 10 mg 04/02/21 22:00 Hydralazine Hcl 25 Mg Tablet PO DAILY [facility] Protocol Promethazine HCl 12.5 mg/ 50.5 mls @ 202 mls/hr 04/01/21 10:57 04/01/21 10:45 Sodium Chloride IV Infused Q4H PRN Infusion Nausea Lactated Ringer's 1,000 mls @ 80 mls/hr 04/02/21 07:45 04/02/21 08:03 Lr IVCONT 80 mls/hr .[id number] [facility] Administration Insulin Glargine 10 unit 03/28/21 11:44 04/02/21 09:06 Insulin Glargine,Hum.Rec.Anlog 100 Unit/Ml 10 Ml Vial SUBCUT 10 unit DAILY [facility] Administration Insulin Human Lispro 0 unit 03/22/21 07:30 04/02/21 11:39 Insulin Lispro 100 Unit/Ml 3 Ml Vial SUBCUT 6 unit QIDACHS [facility] Administration Protocol Latanoprost 1 drop 03/22/21 21:00 04/01/21 20:00 Latanoprost 0.005 % Ophth Sandy 2.5 Ml Drops EYE-BOTH 1 drop BEDTIME [facility] Administration Magnesium Hydroxide 30 ml 03/22/21 02:25 Milk Of Magnesia 30 Ml Oral.Susp PO DAILY PRN Constipation Melatonin 6 mg 03/22/21 21:00 04/01/21 19:51 Melatonin 3 Mg Tablet PO 6 mg BEDTIME [facility] Administration Nitroglycerin 0.4 mg 03/22/21 04:33 Nitroglycerin 0.4 Mg Tab.Subl SUBLINGUAL Q5M PRN Chest Pain Ondansetron HCl 4 mg 03/23/21 09:55 04/01/21 14:04 Ondansetron Hcl 4 Mg/2 Ml Vial IVPUSH 4 mg Q6H PRN Administration Nausea and vomitting Oxycodone HCl 5 mg 04/01/21 10:56 04/01/21 21:18 Oxycodone Hcl Immed Release 5 Mg Tablet PO 5 mg Q4H PRN Administration Pain, Moderate (Pain Scale 4-6 Sodium Chloride 3 ml 03/22/21 08:00 04/02/21 07:43 0.9 % Sodium Chloride Flush 3 Ml Syringe IVFLUSH 3 ml QSHIFT [facility]ILLY Administration Ticagrelor 90 mg 04/02/21 21:00 Ticagrelor 90 Mg Tablet PO BID BILLY Vitamin D 50 mcg 03/22/21 09:00 04/02/21 08:04 Cholecalciferol (Vitamin D3) 25 Mcg Tablet PO 50 mcg DAILY [facility]Y Administration <DE Turner - Last Filed: 04/02/21 13:09> Labs CBC & Chem 7: : 04/02/21 05:35 04/02/21 05:35 <DE Turner - Last Filed: 04/02/21 13:09> Assessment and Plan (1) Renal artery stenosis: Status: Acute <DE Turner - Last Filed: 04/02/21 13:09> (2) Dysautonomia orthostatic hypotension syndrome: Status: Acute <DE Turner - Last Filed: 04/02/21 13:09> Assessment and Plan: This is a 70-year-old male with a past medical history of hypertension, hyperlipidemia, diabetes, coronary artery disease, CKD, history of CVA with left-sided weakness, abdominal aortic aneurysm, recent admission to the hospital for hypertensive urgency presented to the hospital with a chief complaint of fall/near syncope here with difficult to control orthostatic hypotension and supine hypertension orthostatic hypotension with supine hypertension labile bp, difficult to control Possible etiologies include renal artery stenosis, vascular disease, autonomic dysfunction Seen and evaluated by Neurology and Cardiology -orthostatic precautions, sleep in reclined position when able -recommendation to check SPEP, UPEP, kappa light chain to eval for amyloidosis, pending -continue hydralazine, carvedilol -outpatient workup for Parkinson's disease -s/p left renal artery stent 04/01 Renal artery stenosis. s/p left renal artery stent 04/01 -Vascular following -pain mangement uncontrolled HTN. blood pressure improved today -continue coreg, hydralazine po -monitor BP closely h/o CVA -continue asa, brilinta and statin -was participating in PT/OT as outpatient, would like to resume MALLY on CKD 3 SCr up from 1.45 to 2.51 s/p angiogram and left renal stent placement 04/01 -gentle IVF -Follow renal function -aldactone has been on hold -nephrology following -renally dose baclofen, d/c descovy - resume when renal function allows CAD -continue life long brilinta and asa -continue statin Gastritis -change to po pepcid Diabetes -continue Insulin sliding scale -tresiba converted to Lantus Mood -continue lexapro HLD -continue statin, zetia DVT prophylaxis: heparin SQ okayed by vascular Code status: Full code Attending: Dr. Butler Dispo: seen by PT, rec STR. Pt previously at [facility], would like to return if possible <DE Turner - Last Filed: 04/02/21 13:09> (3) Orthostatic hypotension: Status: Acute <DE Turner - Last Filed: 04/02/21 13:09> Assessment and Plan: I saw the patient and discussed finding, mangement, and disposition with DE and I agree with above, except if otherwise stated. Blood pressure is better, I discuss goals of care with patient and sister and they prefer ultimately going to rehab. <Antione Butler MD - Last Filed: 04/02/21 17:37>
[2021-04-02 14:17] LABS: Lactate Dehydrogenase 910 U/L (118-273)
--- NOTE | 2021-04-02 15:15 | P.PNCA_ITS ---
Subjective Subjective Date of Service: 04/02/21 Principal diagnosis: Hypertension, diffuse vascular disease, dysautonomia Interval history: Patient status post left renal artery stenting yesterday. Noted to have elevated creatinine today. Significantly hypertensive yesterday, blood pressure today still elevated but better. Yesterday he said he was still very orthostatic. Today he has been mostly in bed. Feels tired. No chest discomfort. Review of Systems Constitutional: Reports lethargy Cardiovascular: Reports no additional cardiovascular complaints Respiratory: Reports no additional respiratory complaints Reports system reviewed and no additional complaints, except as documented Endocrine: Reports no additional endocrine complaints Physical Exam Vital Signs: Last Vital Signs Temp 97.2 F 04/02/21 11:06 Pulse 83 04/02/21 11:06 Resp 18 04/02/21 11:06 BP 158/80 H 04/02/21 11:06 Pulse Ox 96 04/02/21 11:06 Body Mass Index 22.5 Const Orientation/consciousness: patient oriented x3 Neck Neck: Yes trachea midline, Yes supple and Yes no JVD Resp Effort & Inspection: normal respiratory effort Auscultation: clear to auscultation bilaterally Cardio Jugular venous distension: no JVD Palpation: normal PMI Rate: regular rate Rhythm: regular rhythm Heart sounds: S1 normal heart sound present and S2 normal heart sound present Neuro General: patient oriented x3 and other (No additional abnormal findings) Extrem General: Yes no clubbing, cyanosis or edema Results Labs and Meds Result diagrams: 04/02/21 05:35 04/02/21 05:35 Lab results: Laboratory Results - last 24 hr 04/01/21 04/01/21 04/02/21 16:00 19:49 05:35 WBC 10.7 RBC 3.78 L Hgb 12.2 L Hct 35.9 L MCV 95.0 MCH 32.3 MCHC 34.0 RDW 13.4 Plt Count 236 MPV 9.0 L Absolute Nucleated RBC 0.000 Nucleated RBC % (auto) 0.0 Sodium Potassium Chloride Carbon Dioxide Anion Gap BUN Creatinine Estim Creat Clear Calc Estimated GFR POC Glucose 137 H 145 H Random Glucose Calcium Lactate Dehydrogenase 04/02/21 04/02/21 04/02/21 05:35 07:15 11:06 WBC RBC Hgb Hct MCV MCH MCHC RDW Plt Count MPV Absolute Nucleated RBC Nucleated RBC % (auto) Sodium 139 Potassium 3.9 Chloride 103 Carbon Dioxide 25 Anion Gap 15 BUN 33 H Creatinine 2.51 H Estim Creat Clear Calc 26.3 Estimated GFR 26 POC Glucose 188 H 255 H Random Glucose 187 H Calcium 8.7 Lactate Dehydrogenase 910 H Progress Note: A&P Assessment and plan (1) Dysautonomia orthostatic hypotension syndrome: Status: Acute Assessment and Plan: Dysautonomia with persistent orthostatic hypertension yesterday. Not measured today. Patient blood pressure still remains uncontrolled, see below. Will continue to increase hydralazine to 20 mg at nighttime for control of supine hypertension. Continue carvedilol therapy. Continue to maintain adequate p.o. hydration. Orthostatic precautions. (2) Uncontrolled hypertension: Status: Acute Assessment and Plan: Uncontrolled hypertension status post left renal artery stenosis. Blood pressure is somewhat better controlled today. However has some acute kidney injury most likely related to stenting procedure. Follow renal function closely. Increase hydralazine to 20 mg daily. Will continue to follow with the patient. Fall Risk Details Current Medications: Current Medications Generic Name Dose Route Start Last Admin Trade Name Freq PRN Reason Stop Dose Admin Acetaminophen 650 mg 03/22/21 02:25 04/01/21 21:18 Acetaminophen 325 Mg Tablet PO 650 mg Q6H PRN Administration Pain, Mild (Pain Scale 1-3) Albuterol Sulfate 2 puff 03/22/21 04:33 Albuterol Sulfate 90 Mcg 8 Gm Inhaler INHALE Q4H PRN Wheezing Aspirin 81 mg 03/22/21 09:00 04/02/21 08:03 Aspirin Enteric Coated 81 Mg Tablet.Dr PO 81 mg DAILY BILLY Administration Atorvastatin Calcium 80 mg 03/22/21 21:00 04/01/21 19:51 Atorvastatin Calcium 80 Mg Tablet PO 80 mg BEDTIME BILLY Administration Baclofen 2.5 mg 04/02/21 15:00 Baclofen 10 Mg Tablet PO TID BILLY Carvedilol 6.25 mg 03/29/21 21:00 04/02/21 08:04 Carvedilol 3.125 Mg Tablet PO 6.25 mg BID BILLY Administration Protocol Dorzolamide/Timolol 1 drop 03/22/21 09:00 04/02/21 08:03 Dorzolamide/Timolo 2.23%/0.68% 10 Ml Drbtl EYE-BOTH 1 drop BID BILLY Administration Ezetimibe 10 mg 03/22/21 09:00 04/02/21 08:03 Ezetimibe 10 Mg Tablet PO 10 mg DAILY BILLY Administration Escitalopram Oxalate 10 mg 03/22/21 09:00 04/02/21 08:04 Escitalopram Oxalate 10 Mg Tablet PO 10 mg DAILY BILLY Administration Famotidine 20 mg 04/03/21 09:00 Famotidine 20 Mg Tablet PO Q48H PENDING SALE TO [facility] Heparin Sodium (Porcine) 5,000 unit 04/02/21 09:30 04/02/21 10:00 Heparin Sodium,Porcine 5,000 Unit/Ml Vial SUBCUT 5,000 unit Q12H BILLY Administration Hydralazine HCl 10 mg 04/02/21 22:00 Hydralazine Hcl 25 Mg Tablet PO DAILY [facility] Protocol Promethazine HCl 12.5 mg/ 50.5 mls @ 202 mls/hr 04/01/21 10:57 04/01/21 10:45 Sodium Chloride IV Infused Q4H PRN Infusion Nausea Lactated Ringer's 1,000 mls @ 80 mls/hr 04/02/21 07:45 04/02/21 08:03 Lr IVCONT 80 mls/hr .[id number] BILLY Administration Insulin Glargine 10 unit 03/28/21 11:44 04/02/21 09:06 Insulin Glargine,Hum.Rec.Anlog 100 Unit/Ml 10 Ml Vial SUBCUT 10 unit DAILY BILLY Administration Insulin Human Lispro 0 unit 03/22/21 07:30 04/02/21 11:39 Insulin Lispro 100 Unit/Ml 3 Ml Vial SUBCUT 6 unit QIDACHS PENDING [facility] TO [facility] Administration Protocol Latanoprost 1 drop 03/22/21 21:00 04/01/21 20:00 Latanoprost 0.005 % Ophth Sandy 2.5 Ml Drops EYE-BOTH 1 drop BEDTIME BILLY Administration Magnesium Hydroxide 30 ml 03/22/21 02:25 Milk Of Magnesia 30 Ml Oral.Susp PO DAILY PRN Constipation Melatonin 6 mg 03/22/21 21:00 04/01/21 19:51 Melatonin 3 Mg Tablet PO 6 mg BEDTIME BILLY Administration Ondansetron HCl 4 mg 03/23/21 09:55 04/01/21 14:04 Ondansetron Hcl 4 Mg/2 Ml Vial IVPUSH 4 mg Q6H PRN Administration Nausea and vomitting Oxycodone HCl 5 mg 04/01/21 10:56 04/01/21 21:18 Oxycodone Hcl Immed Release 5 Mg Tablet PO 5 mg Q4H PRN Administration Pain, Moderate (Pain Scale 4-6 Sodium Chloride 3 ml 03/22/21 08:00 04/02/21 07:43 0.9 % Sodium Chloride Flush 3 Ml Syringe IVFLUSH 3 ml QSHIFT BILLY Administration Ticagrelor 90 mg 04/02/21 21:00 Ticagrelor 90 Mg Tablet PO BID BILLY Vitamin D 50 mcg 03/22/21 09:00 04/02/21 08:04 Cholecalciferol (Vitamin D3) 25 Mcg Tablet PO 50 mcg DAILY BILLY Administration Time Spent With Patient Time: Total time spent is greater than 50% in coordination of care (as documented) at patient's floor/unit and/or counseling patient: Time with patient: 15 - 24 minutes Procedures Date of Service Date of Service: 04/02/21
[2021-04-02] MEDS: Baclofen 10 MG TABLET 2.5 MG PO ×2 (15:30→20:46)
[2021-04-02 16:27] LABS: Glucose, Whole Blood 232 mg/dL (60-115)
--- NOTE | 2021-04-02 16:44 | P.PNNP_ITS ---
Subjective Subjective Date of Service: 04/02/21 Principal diagnosis: Hypertension, diffuse vascular disease, dysautonomia Interval history: Seen and examiend. Events noted. S/P PTRA w stent L Kidney [place] symptoms persists Physical Exam Vital Signs: Vital Signs: Last Vital Signs Temp 99 F 04/02/21 15:29 Pulse 70 04/02/21 15:29 Resp 18 04/02/21 15:29 BP 164/84 H 04/02/21 15:29 Pulse Ox 99 04/02/21 15:29 Body Mass Index 22.5 Const: General: no acute distress and alert Orientation/consciousness: patient oriented x3 Eyes: EOM: EOMs intact bilaterally Neck: Neck: Yes supple and Yes no JVD Resp: Auscultation: no rales and diminished lung sounds Cardio: Jugular venous distension: no JVD Palpation: no palpable S3 Hea rt sounds: no murmurs GI: Palpation (GI): Soft to palpation Auscultation: normal bowel sounds Neuro: General: patient oriented x3 and moves all extremities Motor exam (neuro): No Asterixis during motor activity present Objective Data Labs CBC & Chem 7: 04/02/21 05:35 04/02/21 05:35 Labs: Laboratory Results - last 24 hr 04/01/21 04/02/21 04/02/21 19:49 05:35 05:35 WBC 10.7 RBC 3.78 L Hgb 12.2 L Hct 35.9 L MCV 95.0 MCH 32.3 MCHC 34.0 RDW 13.4 Plt Count 236 MPV 9.0 L Absolute Nucleated RBC 0.000 Nucleated RBC % (auto) 0.0 Sodium 139 Potassium 3.9 Chloride 103 Carbon Dioxide 25 Anion Gap 15 BUN 33 H Creatinine 2.51 H Estim Creat Clear Calc 26.3 Estimated GFR 26 POC Glucose 145 H Random Glucose 187 H Calcium 8.7 Lactate Dehydrogenase 910 H 04/02/21 04/02/21 04/02/21 07:15 11:06 16:10 WBC RBC Hgb Hct MCV MCH MCHC RDW Plt Count MPV Absolute Nucleated RBC Nucleated RBC % (auto) Sodium Potassium Chloride Carbon Dioxide Anion Gap BUN Creatinine Estim Creat Clear Calc Estimated GFR POC Glucose 188 H 255 H 232 H Random Glucose Calcium Lactate Dehydrogenase Assessment & Plan Assessment and plan (1) CKD (chronic kidney disease) stage 3, GFR 30-59 ml/min: Status: Acute Assessment and Plan: 1. SHOH: appears to a new development ? coincident with after his CVA;impressive drops of BP with upright position; prior ECHO reveal DDys func and non- complaint/stiff heart; ; lack of incr HR ? d/t BBlocker or autonomic failure or both Challenging management issueand need to find sweet spot with control of supine HTN and avoid debilitation orhtstasis prior U/S showed asymmetric kidneys and doppler very suggestive of ABRAHAM in the larger kidney 2. CKD 3: msot c/w DN/HTN renal dis; r/o dysproteinemia makes sense as well 3. ABRAHAM of L Kidney s/p PTRA/stent 4. MALLY: SCr 1.4 to 2.5 less than 18 hrs after angio procedure DDx of MALLY chol emboli arterial injury ( disection/thrombus etc..) with possible renal infarction--- no flank pain goes against renal infarction but does not rule it out IV dye ATN ( seems early) urinary retention other REC: IVF; track UOP/renal func; add LDH to am labs; check C3/C4 and UA, urne and periph eos will follow magdi with team Time Spent With Patient Time: Total time spent is greater than 50% in coordination of care (as documented) at patient's floor/unit and/or counseling patient: Procedures Date of Service Date of Service: 04/02/21
[2021-04-02 20:34] LABS: Glucose, Whole Blood 189 mg/dL (60-115)
[2021-04-02] MEDS: Melatonin 3 MG TABLET 6 MG PO (20:48)
[2021-04-02] MEDS: Latanoprost 0.005 % Ophth Sol 2.5 ML DROPS 1 DROP EYE-BOTH (20:48)
[2021-04-02] MEDS: Atorvastatin Calcium 80 MG TABLET PO (20:49)
[2021-04-02] MEDS: Ticagrelor 90 MG TABLET PO (20:49)
[2021-04-02 22:22] LABS: Prot Elec - Albumin 3.5 g/dL (3.8-4.8); Prot Elec - Alpha1 0.5 g/dL (0.2-0.3); Prot Elec - Alpha2 0.9 g/dL (0.5-0.9); Prot Elec - Beta 1 0.4 g/dL (0.4-0.6); Prot Elec - Beta 2 0.4 g/dL (0.2-0.5); Prot Elec - Gamma 0.7 g/dL (0.8-1.7); Prot Elec - Total Protein 6.4 g/dL (6.1-8.1)
[2021-04-03] VITALS (12 sets, daily range): BP systolic 108–199; BP diastolic 46–89; PULSE 69–80; RESP 17–20; TEMP 36.2–37.3; O2SAT 94–98
[2021-04-03 05:13] LABS: Glucose Urine UA 100 MG/DL (NEG); Leukocyte Esterase Urine NEG (NEG); Nitrite Urine NEG (NEG); Urine Blood TRACE (NEG); Urine Ketones NEG (NEG); Urine Protein 1+ MG/DL (NEG-TRACE)
[2021-04-03 05:15] LABS: Appearance Urine CLEAR; Color Urine YELLOW
[2021-04-03 05:18] LABS: Mucus Urine 1+ /LPF; Squamous Epithelial Cell Urine 1+ /LPF; WBC Urine 0-2 /HPF (0-4)
[2021-04-03 05:19] LABS: Amorphous Sediment Urine 1+ /LPF; Hyaline Casts Urine 0-2 /LPF
[2021-04-03] MEDS: ondansetron HCL 4 MG/2 ML VIAL IVPUSH ×2 (05:25→20:47)
[2021-04-03 05:36] LABS: Creatinine Urine 110.15 mg/dL
[2021-04-03 07:02] LABS: Hematocrit 31.5 % (42-52); Hemoglobin 10.7 g/dl (14.0-18.0); Mean Corpuscular Hemoglobin 32.4 pg (27.0-33.0); Mean Corpuscular Volume 95.5 fL (80-98); Mean Platelet Volume 9.2 fL (9.4-12.4); Platelet Count 190 X10*3/uL (160-400); Red Cell Distribution Width 13.1 % (11.0-16.0); White Blood Count 10.2 X10*3/uL (4.8-10.8)
[2021-04-03 07:17] LABS: Glucose, Whole Blood 196 mg/dL (60-115)
[2021-04-03 07:23] LABS: Anion Gap 18 (12-20); Blood Urea Nitrogen 32 mg/dL (9-16); Calcium 8.5 mg/dL (8.4-10.2); Carbon Dioxide 22 mmol/L (22-29); Chloride 103 mmol/L (96-108); Creatinine Clr Calc Pharmacy 28.5; Estimated Glomerular Filt Rate 28; Glucose Random 176 mg/dL (60-115); Lactate Dehydrogenase 779 U/L (118-273); Potassium 3.6 mmol/L (3.3-5.1); Sodium 139 mmol/L (135-145)
[2021-04-03] MEDS: Insulin Lispro 100 UNIT/ML 3 ML VIAL SUBCUT ×4 (07:59→20:55)
[2021-04-03] MEDS: Insulin Glargine,Hum.rec.anlog 100 UNIT/ML 10 ML VIAL 10 UNIT SUBCUT (07:59)
[2021-04-03] MEDS: Heparin Sodium,Porcine 5,000 UNIT/ML VIAL 5000 UNIT SUBCUT ×2 (08:01→20:48)
[2021-04-03] MEDS: Escitalopram Oxalate 10 MG TABLET PO (08:01)
[2021-04-03] MEDS: carvediloL 3.125 MG TABLET 6.25 MG PO (08:01)
[2021-04-03] MEDS: Ezetimibe 10 MG TABLET PO (08:01)
[2021-04-03] MEDS: Aspirin Enteric Coated 81 MG TABLET.DR PO (08:01)
[2021-04-03] MEDS: Famotidine 20 MG TABLET PO (08:01)
[2021-04-03] MEDS: Ticagrelor 90 MG TABLET PO ×2 (08:01→20:46)
[2021-04-03 08:02] LABS: EOS Counted 0 CELLS; EOS QC POS YES; EOS Stain Quality OK YES; WBC, Counted 25 CELLS
[2021-04-03] MEDS: Baclofen 10 MG TABLET 2.5 MG PO ×3 (08:02→20:48)
[2021-04-03] MEDS: Cholecalciferol (Vitamin D3) 25 MCG TABLET 50 MCG PO (08:02)
[2021-04-03] MEDS: Lactated Ringers 1,000 ML 80 ML IVCONT ×2 (08:03→23:37)
[2021-04-03 11:45] LABS: Glucose, Whole Blood 211 mg/dL (60-115)
--- NOTE | 2021-04-03 12:25 | P.PNIM_ITS ---
Subjective Subjective Date of Service: 04/03/21 <Aria Chambers NP - Last Filed: 04/03/21 12:30> 04/03/21 <Antione Butler MD - Last Filed: 04/03/21 18:55> Interval History: Follow up orthostatic htn No pain Some dizziness with standing <Aria Chambers NP - Last Filed: 04/03/21 12:30> Physical Exam Vital Signs: Vital Signs: Last Vital Signs Temp 97.2 F 04/03/21 12:00 Pulse 71 04/03/21 12:00 Resp 17 04/03/21 12:00 BP 182/76 H 04/03/21 12:00 Pulse Ox 97 04/03/21 12:00 Body Mass Index 22.5 <Aria Chambers NP - Last Filed: 04/03/21 12:30> Appearing in no acute distress lung sounds are clear to auscultation heart regular rate rhythm, clear S1, S2 positive bowel sounds, abdomen is soft, nontender neuro patient is alert x3, no focal deficits <Aria Chambers NP - Last Filed: 04/03/21 12:30> Objective Data Current Medications Generic Name Dose Route Start Last Admin Trade Name Freq PRN Reason Stop Dose Admin Acetaminophen 650 mg 03/22/21 02:25 04/01/21 21:18 Acetaminophen 325 Mg Tablet PO 650 mg Q6H PRN Administration Pain, Mild (Pain Scale 1-3) Albuterol Sulfate 2 puff 03/22/21 04:33 Albuterol Sulfate 90 Mcg 8 Gm Inhaler INHALE Q4H PRN Wheezing Aspirin 81 mg 03/22/21 09:00 04/03/21 08:01 Aspirin Enteric Coated 81 Mg Tablet.Dr PO 81 mg DAILY BILLY Administration Atorvastatin Calcium 80 mg 03/22/21 21:00 04/02/21 20:49 Atorvastatin Calcium 80 Mg Tablet PO 80 mg BEDTIME BILLY Administration Baclofen 2.5 mg 04/02/21 15:00 04/03/21 08:02 Baclofen 10 Mg Tablet PO 2.5 mg TID BILLY Administration Carvedilol 6.25 mg 03/29/21 21:00 04/03/21 08:01 Carvedilol 3.125 Mg Tablet PO 6.25 mg BID BILLY Administration Protocol Dorzolamide/Timolol 1 drop 03/22/21 09:00 04/03/21 08:03 Dorzolamide/Timolo 2.23%/0.68% 10 Ml Drbtl EYE-BOTH Not Given BID [facility] Ezetimibe 10 mg 03/22/21 09:00 04/03/21 08:01 Ezetimibe 10 Mg Tablet PO 10 mg DAILY BILLY Administration Escitalopram Oxalate 10 mg 03/22/21 09:00 04/03/21 08:01 Escitalopram Oxalate 10 Mg Tablet PO 10 mg DAILY BILLY Administration Famotidine 20 mg 04/03/21 09:00 04/03/21 08:01 Famotidine 20 Mg Tablet PO 20 mg Q48H BILLY Administration Heparin Sodium (Porcine) 5,000 unit 04/02/21 09:30 04/03/21 08:01 Heparin Sodium,Porcine 5,000 Unit/Ml Vial SUBCUT 5,000 unit Q12H BILLY Administration Hydralazine HCl 20 mg 04/03/21 22:00 Hydralazine Hcl 25 Mg Tablet PO DAILY [facility] Protocol Promethazine HCl 12.5 mg/ 50.5 mls @ 202 mls/hr 04/01/21 10:57 04/01/21 10:45 Sodium Chloride IV Infused Q4H PRN Infusion Nausea Lactated Ringer's 1,000 mls @ 80 mls/hr 04/02/21 07:45 04/03/21 08:03 Lr IVCONT 80 mls/hr .[id number] BILLY Administration Insulin Glargine 10 unit 03/28/21 11:44 04/03/21 07:59 Insulin Glargine,Hum.Rec.Anlog 100 Unit/Ml 10 Ml Vial SUBCUT 10 unit DAILY BILLY Administration Insulin Human Lispro 0 unit 03/22/21 07:30 04/03/21 07:59 Insulin Lispro 100 Unit/Ml 3 Ml Vial SUBCUT 2 unit QIDACHS [facility] Administration Protocol Latanoprost 1 drop 03/22/21 21:00 04/02/21 20:48 Latanoprost 0.005 % Ophth Sandy 2.5 Ml Drops EYE-BOTH 1 drop BEDTIME BILLY Administration Magnesium Hydroxide 30 ml 03/22/21 02:25 Milk Of Magnesia 30 Ml Oral.Susp PO DAILY PRN Constipation Melatonin 6 mg 03/22/21 21:00 04/02/21 20:48 Melatonin 3 Mg Tablet PO 6 mg BEDTIME BILLY Administration Ondansetron HCl 4 mg 03/23/21 09:55 04/03/21 05:25 Ondansetron Hcl 4 Mg/2 Ml Vial IVPUSH 4 mg Q6H PRN Administration Nausea and vomitting Oxycodone HCl 5 mg 04/01/21 10:56 04/01/21 21:18 Oxycodone Hcl Immed Release 5 Mg Tablet PO 5 mg Q4H PRN Administration Pain, Moderate (Pain Scale 4-6 Sodium Chloride 3 ml 03/22/21 08:00 04/03/21 08:00 0.9 % Sodium Chloride Flush 3 Ml Syringe IVFLUSH Not Given QSHIFT BILLY Ticagrelor 90 mg 04/02/21 21:00 04/03/21 08:01 Ticagrelor 90 Mg Tablet PO 90 mg BID BILLY Administration Vitamin D 50 mcg 03/22/21 09:00 04/03/21 08:02 Cholecalciferol (Vitamin D3) 25 Mcg Tablet PO 50 mcg DAILY BILLY Administration <Aria Chambers NP - Last Filed: 04/03/21 12:30> Labs CBC & Chem 7: : 04/03/21 05:24 04/03/21 05:24 <Aria Chambers NP - Last Filed: 04/03/21 12:30> Assessment and Plan (1) CAD (coronary artery disease): Status: Acute <Aria Chambers NP - Last Filed: 04/03/21 12:30> Assessment and Plan: This is a 70-year-old male with a past medical history of hypertension, hyperlipidemia, diabetes, coronary artery disease, CKD, history of CVA with left-sided weakness, abdominal aortic aneurysm, recent admission to the hospital for hypertensive urgency presented to the hospital with a chief complaint of fall/near syncope here with difficult to control orthostatic hy potension and supine hypertension orthostatic hypotension with supine hypertension labile bp, difficult to control Possible etiologies include renal artery stenosis, vascular disease, autonomic dysfunction Seen and evaluated by Neurology and Cardiology -orthostatic precautions, sleep in reclined position when able -recommendation to check SPEP, UPEP, kappa light chain to eval for amyloidosis, pending -hydralazine increased to better treat nighttime supine hypertension, carvedilol -outpatient workup for Parkinson's disease Renal artery stenosis. s/p left renal artery stent 04/01 -Vascular following -pain mangement uncontrolled HTN. blood pressure still high -continue coreg, hydralazine po -monitor BP closely h/o CVA -continue asa, brilinta and statin -was participating in PT/OT as outpatient, would like to resume MALLY on CKD 3 SCr up from 1.45 to 2.32 s/p angiogram and left renal stent placement 04/01 -gentle IVF -Follow renal function -aldactone has been on hold -nephrology following -renally dose baclofen, d/c descovy - resume when renal function allows CAD -continue life long brilinta and asa -continue statin Gastritis -change to po pepcid Diabetes -continue Insulin sliding scale -tresiba converted to Lantus Mood -continue lexapro HLD -continue statin, zetia DVT prophylaxis: heparin SQ okayed by vascular Code status: Full code Attending: Dr. Butler <Aria Chambers NP - Last Filed: 04/03/21 12:30> (2) Orthostatic hypotension: Status: Acute <Aria Chambers NP - Last Filed: 04/03/21 12:30> Assessment and Plan: I saw and examined the patient and discussed findings, mangement, and disposition with PA and I agree with the above, except if otherwise stated <Antione Butler MD - Last Filed: 04/03/21 18:55>
--- NOTE | 2021-04-03 13:21 | PM.PNCARD ---
Subjective Subjective Date of Service: 04/03/21 Principal diagnosis: Hypertension, diffuse vascular disease, dysautonomia Interval history: Patient remains hypertensive. Has not been out of bed to chair today at all. Denies any lightheadedness being in bed. No chest pain. Kidney functions have improved marginally. Review of Systems Constitutional: Reports no additional constitutional complaints Cardiovascular: Reports no additional cardiovascular complaints Respiratory: Reports no additional respiratory complaints Gastrointestinal: Reports no additional gastrointestinal complaints Reports system reviewed and no additional complaints, except as documented Psychiatric: Reports no additional psychiatric complaints Physical Exam Vital Signs: Last Vital Signs Temp 97.2 F 04/03/21 12:00 Pulse 71 04/03/21 12:00 Resp 17 04/03/21 12:00 BP 182/76 H 04/03/21 12:00 Pulse Ox 97 04/03/21 12:00 Body Mass Index 22.5 Const General: cooperative, comfortable, no acute distress, alert and awake Nutritional Appearance: thin Orientation/consciousness: patient oriented x3 Neck Neck: Yes trachea midline, Yes supple and Yes no JVD Resp Effort & Inspection: normal respiratory effort Auscultation: clear to auscultation bilaterally Cardio Jugular venous distension: no JVD Palpation: normal PMI Rate: regular rate Rhythm: regular rhythm Heart sounds: S1 normal heart sound present and S2 normal heart sound present Skin General skin exam: no rashes or lesions noted Neuro General: patient oriented x3 Extrem General: Yes no clubbing, cyanosis or edema Results Labs and Meds Result diagrams: 04/03/21 05:24 04/03/21 05:24 Lab results: Laboratory Results - last 24 hr 03/30/21 04/02/21 04/02/21 13:10 05:35 16:10 WBC RBC Hgb Hct MCV MCH MCHC RDW Plt Count MPV Absolute Nucleated RBC Nucleated RBC % (auto) Sodium Potassium Chloride Carbon Dioxide Anion Gap BUN Creatinine Estim Creat Clear Calc Estimated GFR POC Glucose 232 H Random Glucose Calcium Lactate Dehydrogenase 910 H Total Protein (PEP) 6.4 Albumin (PEP) 3.5 L Jehjc-0-Txodtnytx 0.5 H Grpwd-1-Yrfegdiwx 0.9 Gzuy-4-Kosadrex 0.4 Kbad-9-Prlirnxw 0.4 Gamma Globulins 0.7 L PEP Interpretation SEE NOTE Urine Color Urine Appearance Urine pH Ur Specific Dailey Urine Protein Urine Glucose (UA) Urine Ketones Urine Blood Urine Nitrite Ur Leukocyte Esterase Urine RBC Urine WBC Ur Squamous Epith Cells Amorphous Sediment Urine Bacteria Hyaline Casts Granular Casts Urine Mucus Urine Eosinophils % Ur Random Sodium Urine Creatinine 04/02/21 04/03/21 04/03/21 20:27 05:01 05:01 WBC RBC Hgb Hct MCV MCH MCHC RDW Plt Count MPV Absolute Nucleated RBC Nucleated RBC % (auto) Sodium Potassium Chloride Carbon Dioxide Anion Gap BUN Creatinine Estim Creat Clear Calc Estimated GFR POC Glucose 189 H Random Glucose Calcium Lactate Dehydrogenase Total Protein (PEP) Albumin (PEP) Cxvzd-3-Xnbmpxrzt Rauns-8-Sjtriadlj Gxvx-5-Axeqeyox Yknk-5-Dbphnksg Gamma Globulins PEP Interpretation Urine Color YELLOW Urine Appearance CLEAR Urine pH 6.0 Ur Specific Dailey 1.020 Urine Protein 1+ H Urine Glucose (UA) 100 H Urine Ketones NEG Urine Blood TRACE Urine Nitrite NEG Ur Leukocyte Esterase NEG Urine RBC 1-4 Urine WBC 0-2 Ur Squamous Epith Cells 1+ Amorphous Sediment 1+ Urine Bacteria NONE Hyaline Casts 0-2 Granular Casts 1-4 Urine Mucus 1+ Urine Eosinophils % 0.0 Ur Random Sodium Urine Creatinine 04/03/21 04/03/21 04/03/21 05:01 05:24 05:24 WBC 10.2 RBC 3.30 L Hgb 10.7 L Hct 31.5 L MCV 95.5 MCH 32.4 MCHC 34.0 RDW 13.1 Plt Count 190 MPV 9.2 L Absolute Nucleated RBC 0.000 Nucleated RBC % (auto) 0.0 Sodium 139 Potassium 3.6 Chloride 103 Carbon Dioxide 22 Anion Gap 18 BUN 32 H Creatinine 2.32 H Estim Creat Clear Calc 28.5 Estimated GFR 28 POC Glucose Random Glucose 176 H Calcium 8.5 Lactate Dehydrogenase 779 H Total Protein (PEP) Albumin (PEP) Aneam-1-Htvrpcedk Prkga-6-Cpwtjiizs Zuab-4-Snhodvgz Ufkt-2-Ftlgeadm Gamma Globulins PEP Interpretation Urine Color Urine Appearance Urine pH Ur Specific Dailey Urine Protein Urine Glucose (UA) Urine Ketones Urine Blood Urine Nitrite Ur Leukocyte Esterase Urine RBC Urine WBC Ur Squamous Epith Cells Amorphous Sediment Urine Bacteria Hyaline Casts Granular Casts Urine Mucus Urine Eosinophils % Ur Random Sodium 58.0 Urine Creatinine 110.15 04/03/21 04/03/21 07:12 11:42 WBC RBC Hgb Hct MCV MCH MCHC RDW Plt Count MPV Absolute Nucleated RBC Nucleated RBC % (auto) Sodium Potassium Chloride Carbon Dioxide Anion Gap BUN Creatinine Estim Creat Clear Calc Estimated GFR POC Glucose 196 H 211 H Random Glucose Calcium Lactate Dehydrogenase Total Protein (PEP) Albumin (PEP) Hlbte-6-Widajfznu Abqij-4-Lgdkrfewo Lxuv-3-Fbmqhbiq Eunx-1-Masmfrla Gamma Globulins PEP Interpretation Urine Color Urine Appearance Urine pH Ur Specific Dailey Urine Protein Urine Glucose (UA) Urine Ketones Urine Blood Urine Nitrite Ur Leukocyte Esterase Urine RBC Urine WBC Ur Squamous Epith Cells Amorphous Sediment Urine Bacteria Hyaline Casts Granular Casts Urine Mucus Urine Eosinophils % Ur Random Sodium Urine Creatinine Progress Note: A&P Assessment and plan (1) Dysautonomia orthostatic hypotension syndrome: Status: Acute Assessment and Plan: Significant dysautonomic syndrome. However patient will need to be moved out of bed to chair and followed closely. Monitor blood pressure in chair while he is sitting. Also will need to be upright at some point in time. Discussed with the patient. Slowly moved him and ambulate him as possible. Monitor orthostatic vital sign is all along. Continue adequate p.o. hydration. Continue other orthostatic precautions as discussed in the past. Will require some degree of permissive hypertension with systolic blood pressure up to 150 mm of mercury. (2) Uncontrolled hypertension: Status: Acute Assessment and Plan: Persistent uncontrolled hypertension despite left renal artery stenosis. May take some time for the blood pressure to regulate. Meanwhile will switch his Coreg to metoprolol XL 100 mg b.i.d. to avoid alpha blocking. Increase hydralazine to 50 mg at nighttime. Continue to monitor blood pressure closely. Avoid measuring blood pressure at 4 a.m.. (3) CAD (coronary artery disease): Status: Acute Assessment and Plan: Diffuse vascular disease including carotid, coronary, renal artery disease. Agree with dual antiplatelet therapy with aspirin and Brilinta. Continue high-intensity statin therapy. Blood pressure control will be pursued as above. Fall Risk Details Current Medications: Current Medications Generic Name Dose Route Start Last Admin Trade Name Freq PRN Reason Stop Dose Admin Acetaminophen 650 mg 03/22/21 02:25 04/01/21 21:18 Acetaminophen 325 Mg Tablet PO 650 mg Q6H PRN Administration Pain, Mild (Pain Scale 1-3) Albuterol Sulfate 2 puff 03/22/21 04:33 Albuterol Sulfate 90 Mcg 8 Gm Inhaler INHALE Q4H PRN Wheezing Aspirin 81 mg 03/22/21 09:00 04/03/21 08:01 Aspirin Enteric Coated 81 Mg Tablet.Dr PO 81 mg DAILY BILLY Administration Atorvastatin Calcium 80 mg 03/22/21 21:00 04/02/21 20:49 Atorvastatin Calcium 80 Mg Tablet PO 80 mg BEDTIME BILLY Administration Baclofen 2.5 mg 04/02/21 15:00 04/03/21 08:02 Baclofen 10 Mg Tablet PO 2.5 mg TID BILLY Administration Carvedilol 6.25 mg 03/29/21 21:00 04/03/21 08:01 Carvedilol 3.125 Mg Tablet PO 6.25 mg BID BILLY Administration Protocol Dorzolamide/Timolol 1 drop 03/22/21 09:00 04/03/21 08:03 Dorzolamide/Timolo 2.23%/0.68% 10 Ml Drbtl EYE-BOTH Not Given BID BILLY Ezetimibe 10 mg 03/22/21 09:00 04/03/21 08:01 Ezetimibe 10 Mg Tablet PO 10 mg DAILY BILLY Administration Escitalopram Oxalate 10 mg 03/22/21 09:00 04/03/21 08:01 Escitalopram Oxalate 10 Mg Tablet PO 10 mg DAILY BILLY Administration Famotidine 20 mg 04/03/21 09:00 04/03/21 08:01 Famotidine 20 Mg Tablet PO 20 mg Q48H BILLY Administration Heparin Sodium (Porcine) 5,000 unit 04/02/21 09:30 04/03/21 08:01 Heparin Sodium,Porcine 5,000 Unit/Ml Vial SUBCUT 5,000 unit Q12H BILLY Administration Hydralazine HCl 20 mg 04/03/21 22:00 Hydralazine Hcl 25 Mg Tablet PO DAILY [facility] Protocol Promethazine HCl 12.5 mg/ 50.5 mls @ 202 mls/hr 04/01/21 10:57 04/01/21 10:45 Sodium Chloride IV Infused Q4H PRN Infusion Nausea Lactated Ringer's 1,000 mls @ 80 mls/hr 04/02/21 07:45 04/03/21 08:03 Lr IVCONT 80 mls/hr .[id number] BILLY Administration Insulin Glargine 10 unit 03/28/21 11:44 04/03/21 07:59 Insulin Glargine,Hum.Rec.Anlog 100 Unit/Ml 10 Ml Vial SUBCUT 10 unit DAILY BILLY Administration Insulin Human Lispro 0 unit 03/22/21 07:30 04/03/21 12:31 Insulin Lispro 100 Unit/Ml 3 Ml Vial SUBCUT 4 unit QIDACHS BILLY Administration Protocol Latanoprost 1 drop 03/22/21 21:00 04/02/21 20:48 Latanoprost 0.005 % Ophth Sandy 2.5 Ml Drops EYE-BOTH 1 drop BEDTIME BILLY Administration Magnesium Hydroxide 30 ml 03/22/21 02:25 Milk Of Magnesia 30 Ml Oral.Susp PO DAILY PRN Constipation Melatonin 6 mg 03/22/21 21:00 04/02/21 20:48 Melatonin 3 Mg Tablet PO 6 mg BEDTIME BILLY Administration Ondansetron HCl 4 mg 03/23/21 09:55 04/03/21 05:25 Ondansetron Hcl 4 Mg/2 Ml Vial IVPUSH 4 mg Q6H PRN Administration Nausea and vomitting Oxycodone HCl 5 mg 04/01/21 10:56 04/01/21 21:18 Oxycodone Hcl Immed Release 5 Mg Tablet PO 5 mg Q4H PRN Administration Pain, Moderate (Pain Scale 4-6 Sodium Chloride 3 ml 03/22/21 08:00 04/03/21 08:00 0.9 % Sodium Chloride Flush 3 Ml Syringe IVFLUSH Not Given QSHIFT [facility] Ticagrelor 90 mg 04/02/21 21:00 04/03/21 08:01 Ticagrelor 90 Mg Tablet PO 90 mg BID BILLY Administration Vitamin D 50 mcg 03/22/21 09:00 04/03/21 08:02 Cholecalciferol (Vitamin D3) 25 Mcg Tablet PO 50 mcg DAILY BILLY Administration Time Spent With Patient Time: Total time spent is greater than 50% in coordination of care (as documented) at patient's floor/unit and/or counseling patient: Time with patient: 25 - 35 minutes Procedures Date of Service Date of Service: 04/03/21
[2021-04-03 16:32] LABS: Glucose, Whole Blood 248 mg/dL (60-115)
[2021-04-03 20:30] LABS: Glucose, Whole Blood 272 mg/dL (60-115)
[2021-04-03] MEDS: Atorvastatin Calcium 80 MG TABLET PO (20:46)
[2021-04-03] MEDS: Melatonin 3 MG TABLET 6 MG PO (20:46)
[2021-04-03] MEDS: hydrALAZINE HCl 50 MG TABLET PO (20:49)
[2021-04-03] MEDS: Metoprolol Succinate ER 100 MG TAB.ER.24H PO (20:52)
[2021-04-03] MEDS: Latanoprost 0.005 % Ophth Sol 2.5 ML DROPS 1 DROP EYE-BOTH (20:55)
[2021-04-03] MEDS: Dorzolamide/Timolo 2.23%/0.68% 10 ML DRBTL 1 DROP EYE-BOTH (20:55)
[2021-04-03] MEDS: 0.9 % Sodium Chloride Flush 3 ML SYRINGE IVFLUSH (20:56)
--- NOTE | 2021-04-03 21:57 | PC.NURSE ---
Addendum entered by Carlie Ferguson RN 04/03/21 22:09: Patient's brother called and updated on brother. Brother concerned pt was confused/not himself. Brother was updated that the patient is A&O but was disoriented about time of day when woken for POC at bedtime, pt thought it was morning not night time. This RN has been in the room several times as patient has been ringing [facility] for various needs (toileting, nausea, pain etc.) Pt has been re-oriented and is aware it's night time. Neuro's are at baseline. Pt is able to make needs known. Will continue to monitor. Original Note: [place] notified this RN that patient's brother Bernard called and would like an update. Pt brother is not listed as a contact to this RN asked patient if it is okay to call his brother back. Patient says it is okay to call and give his brother Bernard an update.
[2021-04-04] VITALS (11 sets, daily range): BP systolic 127–190; BP diastolic 60–89; PULSE 61–88; RESP 17–20; TEMP 36.3–36.8; O2SAT 94–99
[2021-04-04 07:46] LABS: Glucose, Whole Blood 190 mg/dL (60-115)
--- NOTE | 2021-04-04 08:40 | P.PNIM_ITS ---
Subjective Subjective Date of Service: 04/04/21 <Aria Chambers NP - Last Filed: 04/04/21 10:40> 04/04/21 <Antione Butler MD - Last Filed: 04/04/21 14:28> Interval History: Follow up syncope OOB to chair no dizziness had forgetful episode last night <Aria Chambers NP - Last Filed: 04/04/21 10:40> Physical Exam Vital Signs: Vital Signs: Last Vital Signs Temp 97.3 F 04/04/21 08:00 Pulse 72 04/04/21 08:29 Resp 20 04/04/21 08:00 BP 127/60 04/04/21 08:29 Pulse Ox 94 04/04/21 08:00 Body Mass Index 22.5 <Aria Chambers NP - Last Filed: 04/04/21 10:40> Appearing in no acute distress lung sounds are clear to auscultation heart regular rate rhythm, clear S1, S2 positive bowel sounds, abdomen is soft, nontender neuro patient is alert x3, no focal deficits <Aria Chambers NP - Last Filed: 04/04/21 10:40> Objective Data Current Medications Generic Name Dose Route Start Last Admin Trade Name Freq PRN Reason Stop Dose Admin Acetaminophen 650 mg 03/22/21 02:25 04/01/21 21:18 Acetaminophen 325 Mg Tablet PO 650 mg Q6H PRN Administration Pain, Mild (Pain Scale 1-3) Albuterol Sulfate 2 puff 03/22/21 04:33 Albuterol Sulfate 90 Mcg 8 Gm Inhaler INHALE Q4H PRN Wheezing Aspirin 81 mg 03/22/21 09:00 04/03/21 08:01 Aspirin Enteric Coated 81 Mg Tablet.Dr PO 81 mg DAILY BILLY Administration Atorvastatin Calcium 80 mg 03/22/21 21:00 04/03/21 20:46 Atorvastatin Calcium 80 Mg Tablet PO 80 mg BEDTIME BILLY Administration Baclofen 2.5 mg 04/02/21 15:00 04/03/21 20:48 Baclofen 10 Mg Tablet PO 2.5 mg TID BILLY Administration Dorzolamide/Timolol 1 drop 03/22/21 09:00 04/03/21 20:55 Dorzolamide/Timolo 2.23%/0.68% 10 Ml Drbtl EYE-BOTH 1 drop BID BILLY Administration Ezetimibe 10 mg 03/22/21 09:00 04/03/21 08:01 Ezetimibe 10 Mg Tablet PO 10 mg DAILY BILLY Administration Escitalopram Oxalate 10 mg 03/22/21 09:00 04/03/21 08:01 Escitalopram Oxalate 10 Mg Tablet PO 10 mg DAILY BILLY Administration Famotidine 20 mg 04/03/21 09:00 04/03/21 08:01 Famotidine 20 Mg Tablet PO 20 mg Q48H BILLY Administration Heparin Sodium (Porcine) 5,000 unit 04/02/21 09:30 04/03/21 20:48 Heparin Sodium,Porcine 5,000 Unit/Ml Vial SUBCUT 5,000 unit Q12H BILLY Administration Hydralazine HCl 50 mg 04/03/21 21:00 04/03/21 20:49 Hydralazine Hcl 50 Mg Tablet PO 50 mg BEDTIME BILLY Administration Protocol Promethazine HCl 12.5 mg/ 50.5 mls @ 202 mls/hr 04/01/21 10:57 04/01/21 10:45 Sodium Chloride IV Infused Q4H PRN Infusion Nausea Lactated Ringer's 1,000 mls @ 80 mls/hr 04/02/21 07:45 04/03/21 23:37 Lr IVCONT 80 mls/hr .[id number] BILLY Administration Insulin Glargine 10 unit 03/28/21 11:44 04/03/21 07:59 Insulin Glargine,Hum.Rec.Anlog 100 Unit/Ml 10 Ml Vial SUBCUT 10 unit DAILY BILLY Administration Insulin Human Lispro 0 unit 03/22/21 07:30 04/04/21 08:35 Insulin Lispro 100 Unit/Ml 3 Ml Vial SUBCUT Not Given QIDACHS [facility] Protocol Latanoprost 1 drop 03/22/21 21:00 04/03/21 20:55 Latanoprost 0.005 % Ophth Sandy 2.5 Ml Drops EYE-BOTH 1 drop BEDTIME BILLY Administration Magnesium Hydroxide 30 ml 03/22/21 02:25 Milk Of Magnesia 30 Ml Oral.Susp PO DAILY PRN Constipation Melatonin 6 mg 03/22/21 21:00 04/03/21 20:46 Melatonin 3 Mg Tablet PO 6 mg BEDTIME BILLY Administration Metoprolol Succinate 100 mg 04/03/21 21:00 04/03/21 20:52 Metoprolol Succinate Er 100 Mg Tab.Er.24h PO 100 mg BID BILLY Administration Protocol Ondansetron HCl 4 mg 03/23/21 09:55 04/03/21 20:47 Ondansetron Hcl 4 Mg/2 Ml Vial IVPUSH 4 mg Q6H PRN Administration Nausea and vomitting Oxycodone HCl 5 mg 04/01/21 10:56 04/01/21 21:18 Oxycodone Hcl Immed Release 5 Mg Tablet PO 5 mg Q4H PRN Administration Pain, Moderate (Pain Scale 4-6 Sodium Chloride 3 ml 03/22/21 08:00 04/03/21 20:56 0.9 % Sodium Chloride Flush 3 Ml Syringe IVFLUSH 3 ml QSHIFT BILLY Administration Ticagrelor 90 mg 04/02/21 21:00 04/03/21 20:46 Ticagrelor 90 Mg Tablet PO 90 mg BID BILLY Administration Vitamin D 50 mcg 03/22/21 09:00 04/03/21 08:02 Cholecalciferol (Vitamin D3) 25 Mcg Tablet PO 50 mcg DAILY BILLY Administration <Aria Chambers NP - Last Filed: 04/04/21 10:40> Labs CBC & Chem 7: : 04/03/21 05:24 04/03/21 05:24 <Aria Chambers NP - Last Filed: 04/04/21 10:40> Assessment and Plan (1) Renal artery stenosis: Status: Acute <Aria Chambers NP - Last Filed: 04/04/21 10:40> Assessment and Plan: This is a 70-year-old male with a past medical history of hypertension, hyperlipidemia, diabetes, coronary artery disease, CKD, history of CVA with left-sided weakness, abdominal aortic aneurysm, recent admission to the hospital for hypertensive urgency presented to the hospital with a chief complaint of fall/near syncope here with difficult to control orthostatic hypotension and supine hypertension Orthostatic hypotension with supine hypertension. Better today. OOB to chair orthostatic SBP went from 180-120, not as low as previous labile bp, difficult to control Possible etiologies include renal artery stenosis, vascular disease, autonomic dysfunction Seen and evaluated by Neurology and Cardiology -orthostatic precautions, sleep in reclined position when able -recommendation to check SPEP, UPEP, kappa light chain to eval for amyloidosis, pending -hydralazine increased to better treat nighttime supine hypertension, carvedilol -outpatient workup for Parkinson's disease Renal artery stenosis. s/p left renal artery stent 04/01 -Vascular following -pain mangement Uncontrolled HTN. blood pressure still high -continue coreg, hydralazine po -monitor BP closely h/o CVA -continue asa, brilinta and statin -was participating in PT/OT as outpatient, would like to resume MALLY on CKD 3 SCr up from 1.45 to 2.32 s/p angiogram and left renal stent placement 04/01 -gentle IVF -Follow renal function -aldactone has been on hold -nephrology following -renally dose baclofen, d/c descovy - resume when renal function allows CAD -continue life long brilinta and asa -continue statin Gastritis -change to po pepcid Diabetes -continue Insulin sliding scale -tresiba converted to Lantus Mood -continue lexapro HLD -continue statin, zetia DVT prophylaxis: heparin SQ okayed by vascular Code status: Full code Attending: Dr. Butler <Aria Chambers NP - Last Filed: 04/04/21 10:40> (2) Dysautonomia orthostatic hypotension syndrome: Status: Acute <Aria Chambers NP - Last Filed: 04/04/21 10:40> Assessment and Plan: I saw and examined the patient and discussed findings, mangement, and disposition with PA and I agree with the above, except if otherwise stated. He says he feels better today, he sat in chair and tolerated well, BP is still fluctuating but generally better. Creatinine has been trending down, recheck lab today. PT and OT to work with him tomorrow. Ultimately he wants to go to rehab <Antione Butler MD - Last Filed: 04/04/21 14:28>
[2021-04-04] MEDS: Aspirin Enteric Coated 81 MG TABLET.DR PO (08:42)
[2021-04-04] MEDS: Ezetimibe 10 MG TABLET PO (08:42)
[2021-04-04] MEDS: Heparin Sodium,Porcine 5,000 UNIT/ML VIAL 5000 UNIT SUBCUT ×2 (08:43→20:25)
[2021-04-04] MEDS: Baclofen 10 MG TABLET 2.5 MG PO ×3 (08:43→20:27)
[2021-04-04] MEDS: Escitalopram Oxalate 10 MG TABLET PO (08:43)
[2021-04-04] MEDS: Ticagrelor 90 MG TABLET PO ×2 (08:43→20:29)
[2021-04-04] MEDS: Metoprolol Succinate ER 100 MG TAB.ER.24H PO ×2 (08:43→20:30)
[2021-04-04] MEDS: Cholecalciferol (Vitamin D3) 25 MCG TABLET 50 MCG PO (08:43)
[2021-04-04] MEDS: Insulin Glargine,Hum.rec.anlog 100 UNIT/ML 10 ML VIAL 10 UNIT SUBCUT (08:44)
[2021-04-04] MEDS: Lactated Ringers 1,000 ML 80 ML IVCONT (11:17)
[2021-04-04 11:22] LABS: Glucose, Whole Blood 204 mg/dL (60-115)
[2021-04-04] MEDS: Insulin Lispro 100 UNIT/ML 3 ML VIAL SUBCUT ×3 (12:21→20:25)
--- NOTE | 2021-04-04 12:21 | PM.PNCARD ---
Subjective Subjective Date of Service: 04/04/21 Principal diagnosis: Hypertension, diffuse vascular disease, dysautonomia Interval history: Patient remains hypertensive. Still also remains orthostatic. Sitting in chair with no lightheadedness. Review of Systems Constitutional: Reports no additional constitutional complaints Cardiovascular: Reports no additional cardiovascular complaints Respiratory: Reports no additional respiratory complaints Genitourinary: Reports no additional male genitourinary complaints Reports system reviewed and no additional complaints, except as documented Physical Exam Vital Signs: Last Vital Signs Temp 97.3 F 04/04/21 11:29 Pulse 61 04/04/21 11:29 Resp 18 04/04/21 11:29 BP 180/70 H 04/04/21 11:29 Pulse Ox 98 04/04/21 11:29 Body Mass Index 22.5 Neck Neck: Yes trachea midline, Yes supple and Yes no JVD Resp Effort & Inspection: normal respiratory effort Auscultation: clear to auscultation bilaterally Cardio Jugular venous distension: no JVD Palpation: normal PMI Rate: regular rate Rhythm: regular rhythm Heart sounds: S1 normal heart sound present and S2 normal heart sound present Extrem General: Yes no clubbing, cyanosis or edema Results Labs and Meds Result diagrams: 04/03/21 05:24 04/03/21 05:24 Lab results: Laboratory Results - last 24 hr 03/30/21 04/03/21 04/03/21 13:10 16:28 20:12 POC Glucose 248 H 272 H Abnorm Protein Band 1 TNP Abnorm Protein Band 2 TNP Abnorm Protein Band 3 TNP 04/04/21 04/04/21 07:38 11:09 POC Glucose 190 H 204 H Abnorm Protein Band 1 Abnorm Protein Band 2 Abnorm Protein Band 3 Progress Note: A&P Assessment and plan (1) Dysautonomia orthostatic hypotension syndrome: Status: Acute Assessment and Plan: Marked dysautonomic syndrome. Very difficult to manage given baseline blood pressure and significantly drop in blood pressure with standing position. Continue to manage high blood pressure gradually. Continue increased p.o. fluid intake. Other orthostatic precautions as discussed before with sleeping in a semi reclining position. Consider compression stockings bilaterally for lower extremity thigh length. (2) Uncontrolled hypertension: Status: Acute Assessment and Plan: Uncontrolled hypertension despite change in medications. Add Norvasc 2.5 mg at noon time to his regimen in addition to metoprolol and hydralazine therapy. Continue to monitor his blood pressure gradually and lower blood pressure gradually. Permissive hypertension would be required to systolic blood pressure up to 160. Continue renal function monitoring daily Given his diffuse vascular disease continue dual antiplatelet therapy with aspirin and Brilinta given his recent CVA on Plavix therapy. Continue high-intensity statin therapy. Continue to monitor the patient. Fall Risk Details Current Medications: Current Medications Generic Name Dose Route Start Last Admin Trade Name Freq PRN Reason Stop Dose Admin Acetaminophen 650 mg 03/22/21 02:25 04/01/21 21:18 Acetaminophen 325 Mg Tablet PO 650 mg Q6H PRN Administration Pain, Mild (Pain Scale 1-3) Albuterol Sulfate 2 puff 03/22/21 04:33 Albuterol Sulfate 90 Mcg 8 Gm Inhaler INHALE Q4H PRN Wheezing Amlodipine Besylate 2.5 mg 04/05/21 12:00 Amlodipine Besylate 2.5 Mg Tablet PO DAILY [facility] Protocol Aspirin 81 mg 03/22/21 09:00 04/04/21 08:42 Aspirin Enteric Coated 81 Mg Tablet.Dr PO 81 mg DAILY BILLY Administration Atorvastatin Calcium 80 mg 03/22/21 21:00 04/03/21 20:46 Atorvastatin Calcium 80 Mg Tablet PO 80 mg BEDTIME BILLY Administration Baclofen 2.5 mg 04/02/21 15:00 04/04/21 08:43 Baclofen 10 Mg Tablet PO 2.5 mg TID BILLY Administration Dorzolamide/Timolol 1 drop 03/22/21 09:00 04/04/21 08:44 Dorzolamide/Timolo 2.23%/0.68% 10 Ml Drbtl EYE-BOTH Not Given BID BILLY Ezetimibe 10 mg 03/22/21 09:00 04/04/21 08:42 Ezetimibe 10 Mg Tablet PO 10 mg DAILY BILLY Administration Escitalopram Oxalate 10 mg 03/22/21 09:00 04/04/21 08:43 Escitalopram Oxalate 10 Mg Tablet PO 10 mg DAILY BILLY Administration Famotidine 20 mg 04/03/21 09:00 04/03/21 08:01 Famotidine 20 Mg Tablet PO 20 mg Q48H BILLY Administration Heparin Sodium (Porcine) 5,000 unit 04/02/21 09:30 04/04/21 08:43 Heparin Sodium,Porcine 5,000 Unit/Ml Vial SUBCUT 5,000 unit Q12H BILLY Administration Hydralazine HCl 50 mg 04/03/21 21:00 04/03/21 20:49 Hydralazine Hcl 50 Mg Tablet PO 50 mg BEDTIME [facility] Administration Protocol Promethazine HCl 12.5 mg/ 50.5 mls @ 202 mls/hr 04/01/21 10:57 04/01/21 10:45 Sodium Chloride IV Infused Q4H PRN Infusion Nausea Lactated Ringer's 1,000 mls @ 80 mls/hr 04/02/21 07:45 04/04/21 11:17 Lr IVCONT 80 mls/hr .[id number] BILLY Administration Insulin Glargine 10 unit 03/28/21 11:44 04/04/21 08:44 Insulin Glargine,Hum.Rec.Anlog 100 Unit/Ml 10 Ml Vial SUBCUT 10 unit DAILY BILLY Administration Insulin Human Lispro 0 unit 03/22/21 07:30 04/04/21 08:35 Insulin Lispro 100 Unit/Ml 3 Ml Vial SUBCUT Not Given QIDACHS [facility] Protocol Latanoprost 1 drop 03/22/21 21:00 04/03/21 20:55 Latanoprost 0.005 % Ophth Sandy 2.5 Ml Drops EYE-BOTH 1 drop BEDTIME BILLY Administration Magnesium Hydroxide 30 ml 03/22/21 02:25 Milk Of Magnesia 30 Ml Oral.Susp PO DAILY PRN Constipation Melatonin 6 mg 03/22/21 21:00 04/03/21 20:46 Melatonin 3 Mg Tablet PO 6 mg BEDTIME BILLY Administration Metoprolol Succinate 100 mg 04/03/21 21:00 04/04/21 08:43 Metoprolol Succinate Er 100 Mg Tab.Er.24h PO 100 mg BID BILLY Administration Protocol Ondansetron HCl 4 mg 03/23/21 09:55 04/03/21 20:47 Ondansetron Hcl 4 Mg/2 Ml Vial IVPUSH 4 mg Q6H PRN Administration Nausea and vomitting Oxycodone HCl 5 mg 04/01/21 10:56 04/01/21 21:18 Oxycodone Hcl Immed Release 5 Mg Tablet PO 5 mg Q4H PRN Administration Pain, Moderate (Pain Scale 4-6 Sodium Chloride 3 ml 03/22/21 08:00 04/04/21 08:51 0.9 % Sodium Chloride Flush 3 Ml Syringe IVFLUSH Not Given QSHIFT BILLY Ticagrelor 90 mg 04/02/21 21:00 04/04/21 08:43 Ticagrelor 90 Mg Tablet PO 90 mg BID BILLY Administration Vitamin D 50 mcg 03/22/21 09:00 04/04/21 08:43 Cholecalciferol (Vitamin D3) 25 Mcg Tablet PO 50 mcg DAILY BILLY Administration Time Spent With Patient Time: Total time spent is greater than 50% in coordination of care (as documented) at patient's floor/unit and/or counseling patient: Time with patient: 25 - 35 minutes Procedures Date of Service Date of Service: 04/04/21
[2021-04-04] MEDS: 0.9 % Sodium Chloride Flush 3 ML SYRINGE IVFLUSH ×2 (15:43→20:27)
[2021-04-04 15:50] LABS: Anion Gap 14 (12-20); Blood Urea Nitrogen 27 mg/dL (9-16); Calcium 8.5 mg/dL (8.4-10.2); Carbon Dioxide 24 mmol/L (22-29); Chloride 104 mmol/L (96-108); Creatinine Clr Calc Pharmacy 31.6; Estimated Glomerular Filt Rate 32; Glucose Random 232 mg/dL (60-115); Potassium 4.1 mmol/L (3.3-5.1); Sodium 138 mmol/L (135-145)
[2021-04-04 16:18] LABS: Glucose, Whole Blood 216 mg/dL (60-115)
[2021-04-04 20:13] LABS: Glucose, Whole Blood 232 mg/dL (60-115)
[2021-04-04] MEDS: Melatonin 3 MG TABLET 6 MG PO (20:27)
[2021-04-04] MEDS: hydrALAZINE HCl 50 MG TABLET PO (20:29)
[2021-04-04] MEDS: Atorvastatin Calcium 80 MG TABLET PO (20:29)
[2021-04-04] MEDS: Latanoprost 0.005 % Ophth Sol 2.5 ML DROPS 1 DROP EYE-BOTH (20:31)
[2021-04-04] MEDS: Dorzolamide/Timolo 2.23%/0.68% 10 ML DRBTL 1 DROP EYE-BOTH (20:32)
[2021-04-04] MEDS: ondansetron HCL 4 MG/2 ML VIAL IVPUSH (20:45)
[2021-04-05] VITALS (9 sets, daily range): BP systolic 120–192; BP diastolic 54–86; PULSE 58–87; RESP 16–20; TEMP 36.3–36.8; O2SAT 95–99
[2021-04-05] MEDS: Lactated Ringers 1,000 ML 80 ML IVCONT (01:55)
[2021-04-05 07:06] LABS: Glucose, Whole Blood 176 mg/dL (60-115)
[2021-04-05 07:07] LABS: Anion Gap 13 (12-20); Blood Urea Nitrogen 23 mg/dL (9-16); Calcium 8.2 mg/dL (8.4-10.2); Carbon Dioxide 24 mmol/L (22-29); Chloride 107 mmol/L (96-108); Creatinine Clr Calc Pharmacy 36.1; Estimated Glomerular Filt Rate 37; Glucose Random 177 mg/dL (60-115); Potassium 3.6 mmol/L (3.3-5.1); Sodium 140 mmol/L (135-145)
[2021-04-05] MEDS: Ticagrelor 90 MG TABLET PO ×2 (08:16→21:34)
[2021-04-05] MEDS: Cholecalciferol (Vitamin D3) 25 MCG TABLET 50 MCG PO (08:16)
[2021-04-05] MEDS: Ezetimibe 10 MG TABLET PO (08:16)
[2021-04-05] MEDS: Aspirin Enteric Coated 81 MG TABLET.DR PO (08:16)
[2021-04-05] MEDS: Famotidine 20 MG TABLET PO (08:16)
[2021-04-05] MEDS: Metoprolol Succinate ER 100 MG TAB.ER.24H PO ×2 (08:16→21:33)
[2021-04-05] MEDS: Escitalopram Oxalate 10 MG TABLET PO (08:16)
[2021-04-05] MEDS: Baclofen 10 MG TABLET 2.5 MG PO ×3 (08:17→21:34)
[2021-04-05] MEDS: Insulin Lispro 100 UNIT/ML 3 ML VIAL SUBCUT ×3 (08:17→21:34)
[2021-04-05] MEDS: Insulin Glargine,Hum.rec.anlog 100 UNIT/ML 10 ML VIAL 10 UNIT SUBCUT (08:17)
[2021-04-05] MEDS: Dorzolamide/Timolo 2.23%/0.68% 10 ML DRBTL 1 DROP EYE-BOTH ×2 (08:20→21:40)
[2021-04-05] MEDS: Heparin Sodium,Porcine 5,000 UNIT/ML VIAL 5000 UNIT SUBCUT ×2 (08:21→21:35)
--- NOTE | 2021-04-05 11:10 | PM.PNNEP ---
Subjective Subjective Date of Service: 04/06/21 Principal diagnosis: Hypertension, diffuse vascular disease, dysautonomia Interval history: Events noted Feels weak Physical Exam Vital Signs: Vital Signs: Last Vital Signs Temp 98.0 F 04/05/21 10:58 Pulse 64 04/05/21 10:58 Resp 18 04/05/21 10:58 BP 192/86 H 04/05/21 10:58 Pulse Ox 99 04/05/21 10:58 Body Mass Index 22.5 Const: General: alert Neck: Neck: Yes supple Resp: Auscultation: clear to auscultation bilaterally Cardio: Heart sounds: no murmurs and no rubs GI: Palpation (GI): Soft to palpation Auscultation: normal bowel sounds Neuro: General: no focal motor deficits Objective Data Labs CBC & Chem 7: 04/03/21 05:24 04/06/21 05:55 Labs: Laboratory Results - last 24 hr 04/04/21 04/04/21 04/04/21 11:09 14:55 16:05 Sodium 138 Potassium 4.1 Chloride 104 Carbon Dioxide 24 Anion Gap 14 BUN 27 H Creatinine 2.09 H Estim Creat Clear Calc 31.6 Estimated GFR 32 POC Glucose 204 H 216 H Random Glucose 232 H Calcium 8.5 04/04/21 04/05/21 04/05/21 20:07 05:29 06:54 Sodium 140 Potassium 3.6 Chloride 107 Carbon Dioxide 24 Anion Gap 13 BUN 23 H Creatinine 1.83 H Estim Creat Clear Calc 36.1 Estimated GFR 37 POC Glucose 232 H 176 H Random Glucose 177 H Calcium 8.2 L Assessment & Plan Assessment and plan (1) Renal artery stenosis: Status: Acute (2) CKD (chronic kidney disease) stage 3, GFR 30-59 ml/min: Status: Acute Assessment and Plan: 1. SHOH: appears to a new development ? coincident with after his CVA; impressive drops of BP with upright position; prior ECHO reveal DDys func and non-complaint/stiff heart; ; lack of incr HR ? d/t BBlocker or autonomic failure or both Challenging management issue and need to find sweet spot with control of supine HTN and avoid debilitation orthostasis prior U/S showed asymmetric kidneys and doppler very suggestive of ABRAHAM in the larger kidney 2. CKD 3: most c/w DN/HTN renal dis; r/o dysproteinemia makes sense as well 3. ABRAHAM of L Kidney s/p PTRA/stent 4. MALLY: SCr 1.4 to 2.5 less than 18 hrs after angio procedure DDx of MALLY chol emboli- LDH is elevated arterial injury ( disection/thrombus etc..) with possible renal infarction--- no flank pain goes against renal infarction but does not rule it out IV dye ATN ( seems early) urinary retention other Renal function is improving REC: IVF; track UOP/renal func; check C3/C4 and UA, urne and periph eos Needs all orthostatic precautions - BENJAMIN stockings, Head end elevation etc Time Spent With Patient Time: Total time spent is greater than 50% in coordination of care (as documented) at patient's floor/unit and/or counseling patient: Procedures Date of Service Date of Service: 04/05/21
--- NOTE | 2021-04-05 11:12 | HO.PM.IMPN ---
Subjective Subjective Date of Service: 04/05/21 <Aria Chambers NP - Last Filed: 04/05/21 11:28> 04/06/21 <Haider Vera MD - Last Filed: 04/06/21 16:05> Interval History: follow-up syncope no dizziness this morning <Aria Chambers NP - Last Filed: 04/05/21 11:28> Physical Exam Vital Signs: Vital Signs: Last Vital Signs Temp 98.0 F 04/05/21 10:58 Pulse 64 04/05/21 10:58 Resp 18 04/05/21 10:58 BP 192/86 H 04/05/21 10:58 Pulse Ox 99 04/05/21 10:58 Body Mass Index 22.5 <Aria Chambers NP - Last Filed: 04/05/21 11:28> Appearing in no acute distress lung sounds are clear to auscultation heart regular rate rhythm, clear S1, S2 positive bowel sounds, abdomen is soft, nontender neuro patient is alert x3, no focal deficits <Aria Chambers NP - Last Filed: 04/05/21 11:28> Objective Data Current Medications Generic Name Dose Route Start Last Admin Trade Name Freq PRN Reason Stop Dose Admin Acetaminophen 650 mg 03/22/21 02:25 04/01/21 21:18 Acetaminophen 325 Mg Tablet PO 650 mg Q6H PRN Administration Pain, Mild (Pain Scale 1-3) Albuterol Sulfate 2 puff 03/22/21 04:33 Albuterol Sulfate 90 Mcg 8 Gm Inhaler INHALE Q4H PRN Wheezing Amlodipine Besylate 2.5 mg 04/05/21 12:00 Amlodipine Besylate 2.5 Mg Tablet PO DAILY BILLY Protocol Aspirin 81 mg 03/22/21 09:00 04/05/21 08:16 Aspirin Enteric Coated 81 Mg Tablet.Dr PO 81 mg DAILY BILLY Administration Atorvastatin Calcium 80 mg 03/22/21 21:00 04/04/21 20:29 Atorvastatin Calcium 80 Mg Tablet PO 80 mg BEDTIME BILLY Administration Baclofen 2.5 mg 04/02/21 15:00 04/05/21 08:17 Baclofen 10 Mg Tablet PO 2.5 mg TID BILLY Administration Dorzolamide/Timolol 1 drop 03/22/21 09:00 04/05/21 08:20 Dorzolamide/Timolo 2.23%/0.68% 10 Ml Drbtl EYE-BOTH 1 drop BID BILLY Administration Ezetimibe 10 mg 03/22/21 09:00 04/05/21 08:16 Ezetimibe 10 Mg Tablet PO 10 mg DAILY BILLY Administration Escitalopram Oxalate 10 mg 03/22/21 09:00 04/05/21 08:16 Escitalopram Oxalate 10 Mg Tablet PO 10 mg DAILY BILLY Administration Famotidine 20 mg 04/03/21 09:00 04/05/21 08:16 Famotidine 20 Mg Tablet PO 20 mg Q48H BILLY Administration Heparin Sodium (Porcine) 5,000 unit 04/02/21 09:30 04/05/21 08:21 Heparin Sodium,Porcine 5,000 Unit/Ml Vial SUBCUT 5,000 unit Q12H BILLY Administration Hydralazine HCl 50 mg 04/03/21 21:00 04/04/21 20:29 Hydralazine Hcl 50 Mg Tablet PO 50 mg BEDTIME BILLY Administration Protocol Promethazine HCl 12.5 mg/ 50.5 mls @ 202 mls/hr 04/01/21 10:57 04/01/21 10:45 Sodium Chloride IV Infused Q4H PRN Infusion Nausea Insulin Glargine 10 unit 03/28/21 11:44 04/05/21 08:17 Insulin Glargine,Hum.Rec.Anlog 100 Unit/Ml 10 Ml Vial SUBCUT 10 unit DAILY BILLY Administration Insulin Human Lispro 0 unit 03/22/21 07:30 04/05/21 08:17 Insulin Lispro 100 Unit/Ml 3 Ml Vial SUBCUT 2 unit QIDACHS BILLY Administration Protocol Latanoprost 1 drop 03/22/21 21:00 04/04/21 20:31 Latanoprost 0.005 % Ophth Sandy 2.5 Ml Drops EYE-BOTH 1 drop BEDTIME BILLY Administration Magnesium Hydroxide 30 ml 03/22/21 02:25 Milk Of Magnesia 30 Ml Oral.Susp PO DAILY PRN Constipation Melatonin 6 mg 03/22/21 21:00 04/04/21 20:27 Melatonin 3 Mg Tablet PO 6 mg BEDTIME BILLY Administration Metoprolol Succinate 100 mg 04/03/21 21:00 04/05/21 08:16 Metoprolol Succinate Er 100 Mg Tab.Er.24h PO 100 mg BID BILLY Administration Protocol Ondansetron HCl 4 mg 03/23/21 09:55 04/04/21 20:45 Ondansetron Hcl 4 Mg/2 Ml Vial IVPUSH 4 mg Q6H PRN Administration Nausea and vomitting Oxycodone HCl 5 mg 04/01/21 10:56 04/01/21 21:18 Oxycodone Hcl Immed Release 5 Mg Tablet PO 5 mg Q4H PRN Administration Pain, Moderate (Pain Scale 4-6 Sodium Chloride 3 ml 03/22/21 08:00 04/05/21 08:18 0.9 % Sodium Chloride Flush 3 Ml Syringe IVFLUSH Not Given QSHIFT BILLY Ticagrelor 90 mg 04/02/21 21:00 04/05/21 08:16 Ticagrelor 90 Mg Tablet PO 90 mg BID BILLY Administration Vitamin D 50 mcg 03/22/21 09:00 04/05/21 08:16 Cholecalciferol (Vitamin D3) 25 Mcg Tablet PO 50 mcg DAILY BILLY Administration <Aria Chambers NP - Last Filed: 04/05/21 11:28> Labs CBC & Chem 7: : 04/03/21 05:24 04/06/21 05:55 <Aria Chambers NP - Last Filed: 04/05/21 11:28> Assessment and Plan (1) CAD (coronary artery disease): Status: Acute <Aria Chambers NP - Last Filed: 04/05/21 11:28> Assessment and Plan: This is a 70-year-old male with a past medical history of hypertension, hyperlipidemia, diabetes, coronary artery disease, CKD, history of CVA with left-sided weakness, abdominal aortic aneurysm, recent admission to the hospital for hypertensive urgency presented to the hospital with a chief complaint of fall/near syncope here with difficult to control orthostatic hypotension and supine hypertension Orthostatic hypotension with supine hypertension. Better today. OOB to chair orthostatic SBP went from 180-120, not as low as previous labile bp, difficult to control Seen and evaluated by Neurology and Cardiology -orthostatic precautions, sleep in reclined position when able -recommendation to check SPEP, UPEP, kappa light chain to eval for amyloidosis, pending -hydralazine increased to better treat nighttime supine hypertension, metoprol BID, amlodipine at noon -outpatient workup for Parkinson's disease -BENJAMIN stockings Renal artery stenosis. s/p left renal artery stent 04/01 -Vascular following -pain mangement h/o CVA -continue asa, brilinta and statin -was participating in PT/OT as outpatient, would like to resume MALLY on CKD 3 SCr up from 1.45 to 2.32 s/p angiogram and left renal stent placement 04/01 -gentle IVF -Follow renal function -aldactone has been on hold -nephrology following -renally dose baclofen, d/c descovy - resume when renal function allows CAD -continue life long brilinta and asa -continue statin Gastritis -change to po pepcid Diabetes -continue Insulin sliding scale -tresiba converted to Lantus Mood -continue lexapro HLD -continue statin, zetia DVT prophylaxis: heparin SQ okayed by vascular Code status: Full code Attending: Dr. Vera <Aria Chambers NP - Last Filed: 04/05/21 11:28>
[2021-04-05 11:18] LABS: Glucose, Whole Blood 234 mg/dL (60-115)
[2021-04-05 11:47] LABS: Complement C3 126 mg/dL (82-185)
[2021-04-05] MEDS: amLODIPine Besylate 2.5 MG TABLET PO (11:58)
--- NOTE | 2021-04-05 12:12 | P.PNVS_ITS ---
Subjective Subjective Date of Service: 04/05/21 Patient reports: no new complaints and feels better Interval history: Patient seen and examined. No significant events over the past weekend. It appears to be doing relatively well. Blood pressure much better controlled. Denies any significant flank pain. Physical Exam Vital Signs: Vital Signs: Last Vital Signs Temp 98.0 F 04/05/21 10:58 Pulse 64 04/05/21 10:58 Resp 18 04/05/21 10:58 BP 192/86 H 04/05/21 10:58 Pulse Ox 99 04/05/21 10:58 Body Mass Index 22.5 Const: General: cooperative, healthy appearing and no acute distress Orientation/consciousness: oriented to person, oriented to place and oriented to time HENMT: Head: Yes normal to inspection Neck: Carotids: no bruits Chest: Chest palpation & inspection: normal inspection of the chest Resp: Effort & Inspection: normal respiratory effort and able to speak in complete sentences Auscultation: clear to auscultation bilaterally Cardio: Rate: regular rate Heart sounds: S1 normal heart sound present and S2 normal heart sound present GI: Inspection: Yes normal to inspection Skin: Other: Right groin puncture site well-healed. General skin exam: no rashes or lesions noted Wounds: no wounds Neuro: General: oriented to person, oriented to place, oriented to time and CN's II-XI intact bilaterally Extrem: General: Yes normal to inspection, Yes full ROM and Yes no clubbing, c yanosis or edema Psych: Appearance: grossly normal and well kempt Speech and movement: Normal speech and movement present Affect: normal affect Progress Note: A&P Assessment and plan (1) Renal artery stenosis: Status: Acute Assessment and Plan: Patient is status post left renal artery stent placement. His renal function initially did had decreased in is improving once again. It appears his blood pressure is doing significantly better as well. He is stable from my perspective for discharge. I will have to coordinate with Dr. Ventura at [facility] vascular who had done his redo carotid endarterectomy for surveillance follow-up in terms of his renal artery stent. Thank you for allowing us to assist in his care. If there are any questions or concerns please do not hesitate to contact us. Fall Risk Details Current Medications: Current Medications Generic Name Dose Route Start Last Admin Trade Name Freq PRN Reason Stop Dose Admin Acetaminophen 650 mg 03/22/21 02:25 04/01/21 21:18 Acetaminophen 325 Mg Tablet PO 650 mg Q6H PRN Administration Pain, Mild (Pain Scale 1-3) Albuterol Sulfate 2 puff 03/22/21 04:33 Albuterol Sulfate 90 Mcg 8 Gm Inhaler INHALE Q4H PRN Wheezing Amlodipine Besylate 2.5 mg 04/05/21 12:00 04/05/21 11:58 Amlodipine Besylate 2.5 Mg Tablet PO 2.5 mg DAILY BILLY Administration Protocol Aspirin 81 mg 03/22/21 09:00 04/05/21 08:16 Aspirin Enteric Coated 81 Mg Tablet.Dr PO 81 mg DAILY BILLY Administration Atorvastatin Calcium 80 mg 03/22/21 21:00 04/04/21 20:29 Atorvastatin Calcium 80 Mg Tablet PO 80 mg BEDTIME BILLY Administration Baclofen 2.5 mg 04/02/21 15:00 04/05/21 08:17 Baclofen 10 Mg Tablet PO 2.5 mg TID BILLY Administration Dorzolamide/Timolol 1 drop 03/22/21 09:00 04/05/21 08:20 Dorzolamide/Timolo 2.23%/0.68% 10 Ml Drbtl EYE-BOTH 1 drop BID BILLY Administration Ezetimibe 10 mg 03/22/21 09:00 04/05/21 08:16 Ezetimibe 10 Mg Tablet PO 10 mg DAILY BILLY Administration Escitalopram Oxalate 10 mg 03/22/21 09:00 04/05/21 08:16 Escitalopram Oxalate 10 Mg Tablet PO 10 mg DAILY BILLY Administration Famotidine 20 mg 04/03/21 09:00 04/05/21 08:16 Famotidine 20 Mg Tablet PO 20 mg Q48H BILLY Administration Heparin Sodium (Porcine) 5,000 unit 04/02/21 09:30 04/05/21 08:21 Heparin Sodium,Porcine 5,000 Unit/Ml Vial SUBCUT 5,000 unit Q12H BILLY Administration Hydralazine HCl 50 mg 04/03/21 21:00 04/04/21 20:29 Hydralazine Hcl 50 Mg Tablet PO 50 mg BEDTIME BILLY Administration Protocol Promethazine HCl 12.5 mg/ 50.5 mls @ 202 mls/hr 04/01/21 10:57 04/01/21 10:45 Sodium Chloride IV Infused Q4H PRN Infusion Nausea Insulin Glargine 10 unit 03/28/21 11:44 04/05/21 08:17 Insulin Glargine,Hum.Rec.Anlog 100 Unit/Ml 10 Ml Vial SUBCUT 10 unit DAILY BILLY Administration Insulin Human Lispro 0 unit 03/22/21 07:30 04/05/21 11:58 Insulin Lispro 100 Unit/Ml 3 Ml Vial SUBCUT 4 unit QIDACHS [facility] Administration Protocol Latanoprost 1 drop 03/22/21 21:00 04/04/21 20:31 Latanoprost 0.005 % Ophth Sandy 2.5 Ml Drops EYE-BOTH 1 drop BEDTIME [facility] Administration Magnesium Hydroxide 30 ml 03/22/21 02:25 Milk Of Magnesia 30 Ml Oral.Susp PO DAILY PRN Constipation Melatonin 6 mg 03/22/21 21:00 04/04/21 20:27 Melatonin 3 Mg Tablet PO 6 mg BEDTIME BILLY Administration Metoprolol Succinate 100 mg 04/03/21 21:00 04/05/21 08:16 Metoprolol Succinate Er 100 Mg Tab.Er.24h PO 100 mg BID [facility] Administration Protocol Ondansetron HCl 4 mg 03/23/21 09:55 04/04/21 20:45 Ondansetron Hcl 4 Mg/2 Ml Vial IVPUSH 4 mg Q6H PRN Administration Nausea and vomitting Oxycodone HCl 5 mg 04/01/21 10:56 04/01/21 21:18 Oxycodone Hcl Immed Release 5 Mg Tablet PO 5 mg Q4H PRN Administration Pain, Moderate (Pain Scale 4-6 Sodium Chloride 3 ml 03/22/21 08:00 04/05/21 08:18 0.9 % Sodium Chloride Flush 3 Ml Syringe IVFLUSH Not Given QSHIFT [facility] Ticagrelor 90 mg 04/02/21 21:00 04/05/21 08:16 Ticagrelor 90 Mg Tablet PO 90 mg BID [facility] Administration Vitamin D 50 mcg 03/22/21 09:00 04/05/21 08:16 Cholecalciferol (Vitamin D3) 25 Mcg Tablet PO 50 mcg DAILY BILLY Administration Time Spent With Patient Time: Total time spent is greater than 50% in coordination of care (as documented) at patient's floor/unit and/or counseling patient: Time with patient: 25 - 35 minutes Procedures Date of Service Date of Service: 04/05/21
--- NOTE | 2021-04-05 13:05 | MHC.CM.PN ---
Per ROUNDS discussion, Patient is not yet medically cleared for dc (Orthostatic Hypotension/Supine Hypertension). STR @ [facility] is the goal and CM will continue to follow for possible need to adjust the dc plan.
[2021-04-05] MEDS: 0.9 % Sodium Chloride Flush 3 ML SYRINGE IVFLUSH (15:22)
[2021-04-05 16:33] LABS: Glucose, Whole Blood 150 mg/dL (60-115)
[2021-04-05 20:07] LABS: Glucose, Whole Blood 227 mg/dL (60-115)
[2021-04-05] MEDS: Melatonin 3 MG TABLET 6 MG PO (21:33)
[2021-04-05] MEDS: Latanoprost 0.005 % Ophth Sol 2.5 ML DROPS 1 DROP EYE-BOTH (21:33)
[2021-04-05] MEDS: hydrALAZINE HCl 50 MG TABLET PO (21:34)
[2021-04-05] MEDS: Atorvastatin Calcium 80 MG TABLET PO (21:34)
[2021-04-06] VITALS (13 sets, daily range): BP systolic 104–200; BP diastolic 58–91; PULSE 60–66; RESP 18–20; TEMP 35.7–37; O2SAT 97–99
[2021-04-06] MEDS: 0.9 % Sodium Chloride Flush 3 ML SYRINGE IVFLUSH ×4 (00:22→22:28)
[2021-04-06 07:21] LABS: Glucose, Whole Blood 198 mg/dL (60-115)
[2021-04-06 08:28] LABS: Anion Gap 13 (12-20); Blood Urea Nitrogen 21 mg/dL (9-16); Calcium 8.3 mg/dL (8.4-10.2); Carbon Dioxide 23 mmol/L (22-29); Chloride 108 mmol/L (96-108); Creatinine Clr Calc Pharmacy 34.1; Estimated Glomerular Filt Rate 34; Glucose Random 186 mg/dL (60-115); Potassium 3.5 mmol/L (3.3-5.1); Sodium 140 mmol/L (135-145)
[2021-04-06] MEDS: Insulin Lispro 100 UNIT/ML 3 ML VIAL SUBCUT ×4 (08:36→21:03)
[2021-04-06] MEDS: Ezetimibe 10 MG TABLET PO (08:36)
[2021-04-06] MEDS: Aspirin Enteric Coated 81 MG TABLET.DR PO (08:36)
[2021-04-06] MEDS: Insulin Glargine,Hum.rec.anlog 100 UNIT/ML 10 ML VIAL 10 UNIT SUBCUT (08:36)
[2021-04-06] MEDS: Cholecalciferol (Vitamin D3) 25 MCG TABLET 50 MCG PO (08:36)
[2021-04-06] MEDS: Baclofen 10 MG TABLET 2.5 MG PO ×3 (08:37→21:04)
[2021-04-06] MEDS: Escitalopram Oxalate 10 MG TABLET PO (08:37)
[2021-04-06] MEDS: Ticagrelor 90 MG TABLET PO ×2 (08:38→21:06)
[2021-04-06] MEDS: Heparin Sodium,Porcine 5,000 UNIT/ML VIAL 5000 UNIT SUBCUT ×2 (08:38→21:06)
[2021-04-06] MEDS: Metoprolol Succinate ER 100 MG TAB.ER.24H PO ×2 (09:24→21:08)
[2021-04-06] MEDS: amLODIPine Besylate 2.5 MG TABLET PO (09:24)
[2021-04-06] MEDS: Dorzolamide/Timolo 2.23%/0.68% 10 ML DRBTL 1 DROP EYE-BOTH ×2 (09:24→21:11)
--- NOTE | 2021-04-06 10:40 | P.PNCA_ITS ---
Subjective Subjective Date of Service: 04/06/21 Principal diagnosis: Hypertension, diffuse vascular disease, dysautonomia Interval history: Patient states that he feels fine. No further dizziness. Review of Systems Review of Systems Yes all other systems are reviewed and are negative Cardiovascular: Reports as per HPI, Reports no additional cardiovascular complaints, Denies acrocyanosis, Denies cool extremities, Denies painful fin gertips, Denies chest pain, Denies chest pain at rest, Denies diaphoresis, Denies syncope, Denies irregular heart rhythm, Denies claudication, Denies leg edema, Denies lightheadedness, Denies palpitations and Denies dyspnea Respiratory: Denies dyspnea Denies syncope Endocrine: Denies palpitations Physical Exam Vital Signs: Last Vital Signs Temp 97.7 F 04/06/21 07:03 Pulse 65 04/06/21 09:30 Resp 18 04/06/21 07:03 BP 134/63 04/06/21 09:30 Pulse Ox 99 04/06/21 07:03 Body Mass Index 22.5 Const General: cooperative, comfortable and no acute distress Orientation/consciousness: patient oriented x3 HENMT Other: Unremarkable Neck Neck: Yes normal visual inspection Chest Chest palpation & inspection: normal inspection of the chest Resp Auscultation: clear to auscultation bilaterally, no crackles and no wheezes Cardio Jugular venous distension: no JVD Palpation: normal PMI Heart sounds: S1 normal heart sound present, S2 normal heart sound present, no gallops, no murmurs and no rubs GI Palpation (GI): Soft to palpation Back/Spine/Pelvis Other: unremarkable Skin General skin exam: no rashes or lesions noted Neuro General: patient oriented x3 Extrem General: Yes no clubbing, cyanosis or edema Psych Mental Status: mental status grossly normal Results Labs and Meds Result diagrams: 04/03/21 05:24 04/06/21 05:55 Lab results: Laboratory Results - last 24 hr 04/03/21 04/05/21 04/05/21 05:24 10:56 16:29 Sodium Potassium Chloride Carbon Dioxide Anion Gap BUN Creatinine Estim Creat Clear Calc Estimated GFR POC Glucose 234 H 150 H Random Glucose Calcium Complement C3 126 Complement C4 20 04/05/21 04/06/21 04/06/21 20:04 05:55 07:06 Sodium 140 Potassium 3.5 Chloride 108 Carbon Dioxide 23 Anion Gap 13 BUN 21 H Creatinine 1.94 H Estim Creat Clear Calc 34.1 Estimated GFR 34 POC Glucose 227 H 198 H Random Glucose 186 H Calcium 8.3 L Complement C3 Complement C4 Progress Note: A&P Assessment and plan (1) Dysautonomia orthostatic hypotension syndrome: Status: Acute (2) Orthostatic hypotension: Status: Acute (3) Uncontrolled hypertension: Status: Acute Assessment and Plan: After different trials of antihypertensives, he seems to be stable on the current regimen. Denies any dizziness or orthostatic symptoms. No further changes made. Fall Risk Details Current Medications: Current Medications Generic Name Dose Route Start Last Admin Trade Name Freq PRN Reason Stop Dose Admin Acetaminophen 650 mg 03/22/21 02:25 04/01/21 21:18 Acetaminophen 325 Mg Tablet PO 650 mg Q6H PRN Administration Pain, Mild (Pain Scale 1-3) Albuterol Sulfate 2 puff 03/22/21 04:33 Albuterol Sulfate 90 Mcg 8 Gm Inhaler INHALE Q4H PRN Wheezing Amlodipine Besylate 2.5 mg 04/05/21 12:00 04/06/21 09:24 Amlodipine Besylate 2.5 Mg Tablet PO 2.5 mg DAILY BILLY Administration Protocol Aspirin 81 mg 03/22/21 09:00 04/06/21 08:36 Aspirin Enteric Coated 81 Mg Tablet.Dr PO 81 mg DAILY BILLY Administration Atorvastatin Calcium 80 mg 03/22/21 21:00 04/05/21 21:34 Atorvastatin Calcium 80 Mg Tablet PO 80 mg BEDTIME IBLLY Administration Baclofen 2.5 mg 04/02/21 15:00 04/06/21 08:37 Baclofen 10 Mg Tablet PO 2.5 mg TID BILLY Administration Dorzolamide/Timolol 1 drop 03/22/21 09:00 04/06/21 09:24 Dorzolamide/Timolo 2.23%/0.68% 10 Ml Drbtl EYE-BOTH 1 drop BID BILLY Administration Ezetimibe 10 mg 03/22/21 09:00 04/06/21 08:36 Ezetimibe 10 Mg Tablet PO 10 mg DAILY BILLY Administration Escitalopram Oxalate 10 mg 03/22/21 09:00 04/06/21 08:37 Escitalopram Oxalate 10 Mg Tablet PO 10 mg DAILY BILLY Administration Famotidine 20 mg 04/03/21 09:00 04/05/21 08:16 Famotidine 20 Mg Tablet PO 20 mg Q48H BILLY Administration Heparin Sodium (Porcine) 5,000 unit 04/02/21 09:30 04/06/21 08:38 Heparin Sodium,Porcine 5,000 Unit/Ml Vial SUBCUT 5,000 unit Q12H BILLY Administration Hydralazine HCl 50 mg 04/03/21 21:00 04/05/21 21:34 Hydralazine Hcl 50 Mg Tablet PO 50 mg BEDTIME BILLY Administration Protocol Promethazine HCl 12.5 mg/ 50.5 mls @ 202 mls/hr 04/01/21 10:57 04/01/21 10:45 Sodium Chloride IV Infused Q4H PRN Infusion Nausea Insulin Glargine 10 unit 03/28/21 11:44 04/06/21 08:36 Insulin Glargine,Hum.Rec.Anlog 100 Unit/Ml 10 Ml Vial SUBCUT 10 unit DAILY BILLY Administration Insulin Human Lispro 0 unit 03/22/21 07:30 04/06/21 08:36 Insulin Lispro 100 Unit/Ml 3 Ml Vial SUBCUT 2 unit QIDACHS BILLY Administration Protocol Latanoprost 1 drop 03/22/21 21:00 04/05/21 21:33 Latanoprost 0.005 % Ophth Sandy 2.5 Ml Drops EYE-BOTH 1 drop BEDTIME BILLY Administration Magnesium Hydroxide 30 ml 03/22/21 02:25 Milk Of Magnesia 30 Ml Oral.Susp PO DAILY PRN Constipation Melatonin 6 mg 03/22/21 21:00 04/05/21 21:33 Melatonin 3 Mg Tablet PO 6 mg BEDTIME BILLY Administration Metoprolol Succinate 100 mg 04/03/21 21:00 04/06/21 09:24 Metoprolol Succinate Er 100 Mg Tab.Er.24h PO 100 mg BID BILLY Administration Protocol Ondansetron HCl 4 mg 03/23/21 09:55 04/04/21 20:45 Ondansetron Hcl 4 Mg/2 Ml Vial IVPUSH 4 mg Q6H PRN Administration Nausea and vomitting Oxycodone HCl 5 mg 04/01/21 10:56 04/01/21 21:18 Oxycodone Hcl Immed Release 5 Mg Tablet PO 5 mg Q4H PRN Administration Pain, Moderate (Pain Scale 4-6 Sodium Chloride 3 ml 03/22/21 08:00 04/06/21 08:38 0.9 % Sodium Chloride Flush 3 Ml Syringe IVFLUSH 3 ml QSHIFT BILLY Administration Ticagrelor 90 mg 04/02/21 21:00 04/06/21 08:38 Ticagrelor 90 Mg Tablet PO 90 mg BID BILLY Administration Vitamin D 50 mcg 03/22/21 09:00 04/06/21 08:36 Cholecalciferol (Vitamin D3) 25 Mcg Tablet PO 50 mcg DAILY BILLY Administration Time Spent With Patient Time: Total time spent is greater than 50% in coordination of care (as documented) at patient's floor/unit and/or counseling patient: Time with patient: less than 15 minutes Procedures Date of Service Date of Service: 04/06/21
--- NOTE | 2021-04-06 10:44 | PM.PNNEP ---
Subjective Subjective Date of Service: 04/06/21 Principal diagnosis: Hypertension, diffuse vascular disease, dysautonomia Interval history: Events noted BP readings noted. Physical Exam Vital Signs: Vital Signs: Last Vital Signs Temp 97.7 F 04/06/21 07:03 Pulse 65 04/06/21 09:30 Resp 18 04/06/21 07:03 BP 134/63 04/06/21 09:30 Pulse Ox 99 04/06/21 07:03 Body Mass Index 22.5 Const: General: alert Neck: Neck: Yes supple and Yes no JVD Resp: Auscultation: clear to auscultation bilaterally and no rales Cardio: Palpation: no palpable S3 Heart sounds: no murmurs and no rubs GI: Palpation (GI): Soft to palpation Auscultation: normal bowel sounds Neuro: General: no focal motor deficits Motor exam (neuro): No Asterixis during motor activity present Objective Data Labs CBC & Chem 7: 04/03/21 05:24 04/06/21 05:55 Labs: Laboratory Results - last 24 hr 04/03/21 04/05/21 04/05/21 05:24 10:56 16:29 Sodium Potassium Chloride Carbon Dioxide Anion Gap BUN Creatinine Estim Creat Clear Calc Estimated GFR POC Glucose 234 H 150 H Random Glucose Calcium Complement C3 126 Complement C4 20 04/05/21 04/06/21 04/06/21 20:04 05:55 07:06 Sodium 140 Potassium 3.5 Chloride 108 Carbon Dioxide 23 Anion Gap 13 BUN 21 H Creatinine 1.94 H Estim Creat Clear Calc 34.1 Estimated GFR 34 POC Glucose 227 H 198 H Random Glucose 186 H Calcium 8.3 L Complement C3 Complement C4 Assessment & Plan Assessment and plan (1) Renal artery stenosis: Status: Acute (2) CKD (chronic kidney disease) stage 3, GFR 30-59 ml/min: Status: Acute Assessment and Plan: 1. SHOH: appears to a new development ? coincident with after his CVA; impressive drops of BP with upright position; prior ECHO reveal DDys func and non-complaint/stiff heart; ; lack of incr HR ? d/t BBlocker or autonomic failure or both Challenging management issue and need to find sweet spot : SBP 230- 250 mmHG : with control of supine HTN and avoid debilitation orthostasis prior U/S showed asymmetric kidneys and doppler very suggestive of ABRAHAM in the larger kidney 2. CKD 3: most c/w DN/HTN renal dis; r/o dysproteinemia makes sense as well 3. ABRAHAM of L Kidney s/p PTRA/stent 4. MALLY: SCr 1.4 to 2.5 less than 18 hrs after angio procedure DDx of MALLY chol emboli- LDH is elevated arterial injury ( disection/thrombus etc..) with possible renal infarction--- no flank pain goes against renal infarction but does not rule it out IV dye ATN ( seems early) urinary retention other Renal function is improved REC: No need for further IVF; track UOP/renal func; Needs all orthostatic precautions - BENJAMIN stockings, Head end elevation etc Time Spent With Patient Time: Total time spent is greater than 50% in coordination of care (as documented) at patient's floor/unit and/or counseling patient: Procedures Date of Service Date of Service: 04/06/21
[2021-04-06 11:16] LABS: Glucose, Whole Blood 173 mg/dL (60-115)
--- NOTE | 2021-04-06 11:46 | HO.PM.IMPN ---
Subjective Subjective Date of Service: 04/06/21 Interval History: Follow orthostatic hypotension, supine hypertension Out of bed to chair and No dizziness, short episode of nausea when walking Walking to the bathroom with assistance Physical Exam Vital Signs: Vital Signs: Last Vital Signs Temp 96.3 F L 04/06/21 10:57 Pulse 63 04/06/21 10:57 Resp 20 04/06/21 10:57 BP 200/91 H 04/06/21 10:57 Pulse Ox 99 04/06/21 10:57 Body Mass Index 22.5 Appearing in no acute distress, out of bed to chair lung sounds are clear to auscultation heart regular rate rhythm, clear S1, S2 positive bowel sounds, abdomen is soft, nontender neuro patient is alert x3, no focal deficits Objective Data Current Medications Generic Name Dose Route Start Last Admin Trade Name Freq PRN Reason Stop Dose Admin Acetaminophen 650 mg 03/22/21 02:25 04/01/21 21:18 Acetaminophen 325 Mg Tablet PO 650 mg Q6H PRN Administration Pain, Mild (Pain Scale 1-3) Albuterol Sulfate 2 puff 03/22/21 04:33 Albuterol Sulfate 90 Mcg 8 Gm Inhaler INHALE Q4H PRN Wheezing Amlodipine Besylate 2.5 mg 04/05/21 12:00 04/06/21 09:24 Amlodipine Besylate 2.5 Mg Tablet PO 2.5 mg DAILY BILLY Administration Protocol Aspirin 81 mg 03/22/21 09:00 04/06/21 08:36 Aspirin Enteric Coated 81 Mg Tablet.Dr PO 81 mg DAILY BILLY Administration Atorvastatin Calcium 80 mg 03/22/21 21:00 04/05/21 21:34 Atorvastatin Calcium 80 Mg Tablet PO 80 mg BEDTIME BILLY Administration Baclofen 2.5 mg 04/02/21 15:00 04/06/21 08:37 Baclofen 10 Mg Tablet PO 2.5 mg TID BILLY Administration Dorzolamide/Timolol 1 drop 03/22/21 09:00 04/06/21 09:24 Dorzolamide/Timolo 2.23%/0.68% 10 Ml Drbtl EYE-BOTH 1 drop BID BILLY Administration Ezetimibe 10 mg 03/22/21 09:00 04/06/21 08:36 Ezetimibe 10 Mg Tablet PO 10 mg DAILY BILLY Administration Escitalopram Oxalate 10 mg 03/22/21 09:00 04/06/21 08:37 Escitalopram Oxalate 10 Mg Tablet PO 10 mg DAILY BILLY Administration Famotidine 20 mg 04/03/21 09:00 04/05/21 08:16 Famotidine 20 Mg Tablet PO 20 mg Q48H BILLY Administration Heparin Sodium (Porcine) 5,000 unit 04/02/21 09:30 04/06/21 08:38 Heparin Sodium,Porcine 5,000 Unit/Ml Vial SUBCUT 5,000 unit Q12H BILLY Administration Hydralazine HCl 50 mg 04/03/21 21:00 04/05/21 21:34 Hydralazine Hcl 50 Mg Tablet PO 50 mg BEDTIME BILLY Administration Protocol Promethazine HCl 12.5 mg/ 50.5 mls @ 202 mls/hr 04/01/21 10:57 04/01/21 10:45 Sodium Chloride IV Infused Q4H PRN Infusion Nausea Insulin Glargine 10 unit 03/28/21 11:44 04/06/21 08:36 Insulin Glargine,Hum.Rec.Anlog 100 Unit/Ml 10 Ml Vial SUBCUT 10 unit DAILY BILLY Administration Insulin Human Lispro 0 unit 03/22/21 07:30 04/06/21 11:38 Insulin Lispro 100 Unit/Ml 3 Ml Vial SUBCUT 2 unit QIDACHS [facility] Administration Protocol Latanoprost 1 drop 03/22/21 21:00 04/05/21 21:33 Latanoprost 0.005 % Ophth Sandy 2.5 Ml Drops EYE-BOTH 1 drop BEDTIME BILLY Administration Magnesium Hydroxide 30 ml 03/22/21 02:25 Milk Of Magnesia 30 Ml Oral.Susp PO DAILY PRN Constipation Melatonin 6 mg 03/22/21 21:00 04/05/21 21:33 Melatonin 3 Mg Tablet PO 6 mg BEDTIME BILLY Administration Metoprolol Succinate 100 mg 04/03/21 21:00 04/06/21 09:24 Metoprolol Succinate Er 100 Mg Tab.Er.24h PO 100 mg BID BILLY Administration Protocol Ondansetron HCl 4 mg 03/23/21 09:55 04/04/21 20:45 Ondansetron Hcl 4 Mg/2 Ml Vial IVPUSH 4 mg Q6H PRN Administration Nausea and vomitting Sodium Chloride 3 ml 03/22/21 08:00 04/06/21 08:38 0.9 % Sodium Chloride Flush 3 Ml Syringe IVFLUSH 3 ml QSHIFT BILLY Administration Ticagrelor 90 mg 04/02/21 21:00 04/06/21 08:38 Ticagrelor 90 Mg Tablet PO 90 mg BID BILLY Administration Vitamin D 50 mcg 03/22/21 09:00 04/06/21 08:36 Cholecalciferol (Vitamin D3) 25 Mcg Tablet PO 50 mcg DAILY BILLY Administration Labs CBC & Chem 7: 04/03/21 05:24 04/06/21 05:55 Labs: Laboratory Results - last 24 hr 04/03/21 04/05/21 04/05/21 05:24 16:29 20:04 Sodium Potassium Chloride Carbon Dioxide Anion Gap BUN Creatinine Estim Creat Clear Calc Estimated GFR POC Glucose 150 H 227 H Random Glucose Calcium Complement C3 126 Complement C4 20 04/06/21 04/06/21 04/06/21 05:55 07:06 11:02 Sodium 140 Potassium 3.5 Chloride 108 Carbon Dioxide 23 Anion Gap 13 BUN 21 H Creatinine 1.94 H Estim Creat Clear Calc 34.1 Estimated GFR 34 POC Glucose 198 H 173 H Random Glucose 186 H Calcium 8.3 L Complement C3 Complement C4 Assessment and Plan (1) CAD (coronary artery disease): Status: Acute Assessment and Plan: his is a 70-year-old male with a past medical history of hypertension, hyperlipidemia, diabetes, coronary artery disease, CKD, history of CVA with left-sided weakness, abdominal aortic aneurysm, recent admission to the hospital for hypertensive urgency presented to the hospital with a chief complaint of fall/near syncope here with difficult to control orthostatic hypotension and supine hypertension Orthostatic hypotension with supine hypertension. Initially very labile and hard to control Better today. Seems to be stablizing with this current regimen of antihypertensives OOB to chair Seen and evaluated by Neurology and Cardiology -orthostatic precautions, sleep in reclined position when able -recommendation to check SPEP, UPEP, kappa light chain to eval for amyloidosis, pending -hydralazine increased to better treat nighttime supine hypertension, metoprol BID, amlodipine at noon good regimen so far -outpatient workup for Parkinson's disease -BENJAMIN stockings Renal artery stenosis. s/p left renal artery stent 04/01 -Vascular following -pain mangement h/o CVA -continue asa, brilinta and statin -was participating in PT/OT as outpatient, would like to resume MALLY on CKD 3. improving. ? IV dye ATN s/p angiogram and left renal stent placement 04/01 -stop IVF -Follow renal function -aldactone has been on hold -nephrology following -renally dose baclofen, d/c descovy - resume when renal function allows CAD -continue life long brilinta and asa -continue statin Gastritis -change to po pepcid Diabetes -continue Insulin sliding scale -tresiba converted to Lantus Mood -continue lexapro HLD -continue statin, zetia DVT prophylaxis: heparin SQ okayed by vascular Code status: Full code Attending: Dr. Vera
[2021-04-06 16:14] LABS: Glucose, Whole Blood 275 mg/dL (60-115)
[2021-04-06 21:02] LABS: Glucose, Whole Blood 212 mg/dL (60-115)
[2021-04-06] MEDS: Melatonin 3 MG TABLET 6 MG PO (21:04)
[2021-04-06] MEDS: Atorvastatin Calcium 80 MG TABLET PO (21:06)
[2021-04-06] MEDS: hydrALAZINE HCl 50 MG TABLET PO (21:09)
[2021-04-06] MEDS: Latanoprost 0.005 % Ophth Sol 2.5 ML DROPS 1 DROP EYE-BOTH (21:12)
[2021-04-07] VITALS (12 sets, daily range): BP systolic 110–180; BP diastolic 62–80; PULSE 58–69; RESP 18–20; TEMP 36.5–37.1; O2SAT 97–99
[2021-04-07 07:12] LABS: Hematocrit 30.2 % (42-52); Hemoglobin 10.1 g/dl (14.0-18.0); Mean Corpuscular HGB Conc 33.4 g/dl (31.0-36.0); Mean Corpuscular Hemoglobin 32.1 pg (27.0-33.0); Mean Corpuscular Volume 95.9 fL (80-98); Mean Platelet Volume 9.3 fL (9.4-12.4); Platelet Count 220 X10*3/uL (160-400); Red Blood Count 3.15 X10*6/uL (4.60-5.80); Red Cell Distribution Width 13.1 % (11.0-16.0); White Blood Count 9.6 X10*3/uL (4.8-10.8)
[2021-04-07 07:37] LABS: Anion Gap 12 (12-20); Blood Urea Nitrogen 26 mg/dL (9-16); Calcium 8.2 mg/dL (8.4-10.2); Carbon Dioxide 22 mmol/L (22-29); Chloride 108 mmol/L (96-108); Creatinine Clr Calc Pharmacy 35.7; Estimated Glomerular Filt Rate 36; Glucose Random 207 mg/dL (60-115); Potassium 3.5 mmol/L (3.3-5.1); Sodium 138 mmol/L (135-145)
[2021-04-07] MEDS: Insulin Lispro 100 UNIT/ML 3 ML VIAL SUBCUT (07:41)
[2021-04-07 07:42] LABS: Glucose, Whole Blood 210 mg/dL (60-115)
[2021-04-07] MEDS: 0.9 % Sodium Chloride Flush 3 ML SYRINGE IVFLUSH ×2 (07:44→15:02)
[2021-04-07] MEDS: Famotidine 20 MG TABLET PO (09:37)
[2021-04-07] MEDS: Metoprolol Succinate ER 100 MG TAB.ER.24H PO (09:37)
[2021-04-07] MEDS: Escitalopram Oxalate 10 MG TABLET PO (09:37)
[2021-04-07] MEDS: Ticagrelor 90 MG TABLET PO (09:37)
[2021-04-07] MEDS: Aspirin Enteric Coated 81 MG TABLET.DR PO (09:37)
[2021-04-07] MEDS: Insulin Glargine,Hum.rec.anlog 100 UNIT/ML 10 ML VIAL 10 UNIT SUBCUT (09:38)
[2021-04-07] MEDS: Ezetimibe 10 MG TABLET PO (09:38)
[2021-04-07] MEDS: Cholecalciferol (Vitamin D3) 25 MCG TABLET 50 MCG PO (09:38)
[2021-04-07] MEDS: Baclofen 10 MG TABLET 2.5 MG PO ×2 (09:38→15:02)
[2021-04-07] MEDS: amLODIPine Besylate 2.5 MG TABLET PO (09:38)
[2021-04-07] MEDS: Heparin Sodium,Porcine 5,000 UNIT/ML VIAL 5000 UNIT SUBCUT (09:38)
[2021-04-07] MEDS: Dorzolamide/Timolo 2.23%/0.68% 10 ML DRBTL 1 DROP EYE-BOTH (09:43)
--- NOTE | 2021-04-07 09:57 | PM.PNNEP ---
Subjective Subjective Date of Service: 04/07/21 Principal diagnosis: Hypertension, diffuse vascular disease, dysautonomia Interval history: Events noted Feeling better Still with fluctuations in BP Physical Exam Vital Signs: Vital Signs: Last Vital Signs Temp 97.7 F 04/07/21 06:59 Pulse 65 04/07/21 09:38 Resp 18 04/07/21 06:59 BP 110/66 04/07/21 09:38 Pulse Ox 98 04/07/21 06:59 Body Mass Index 22.5 Const: General: alert Neck: Neck: Yes supple and Yes no JVD Resp: Auscultation: clear to auscultation bilaterally and no rales Cardio: Palpation: no palpable S3 Heart sounds: no murmurs and no rubs GI: Palpation (GI): Soft to palpation Auscultation: normal bowel sounds Neuro: General: no focal motor deficits Motor exam (neuro): No Asterixis during motor activity present Objective Data Labs CBC & Chem 7: 04/07/21 06:00 04/07/21 06:00 Labs: Laboratory Results - last 24 hr 04/06/21 04/06/21 04/06/21 11:02 16:08 20:51 WBC RBC Hgb Hct MCV MCH MCHC RDW Plt Count MPV Absolute Nucleated RBC Nucleated RBC % (auto) Sodium Potassium Chloride Carbon Dioxide Anion Gap BUN Creatinine Estim Creat Clear Calc Estimated GFR POC Glucose 173 H 275 H 212 H Random Glucose Calcium 04/07/21 04/07/21 04/07/21 06:00 06:00 07:04 WBC 9.6 RBC 3.15 L Hgb 10.1 L Hct 30.2 L MCV 95.9 MCH 32.1 MCHC 33.4 RDW 13.1 Plt Count 220 MPV 9.3 L Absolute Nucleated RBC 0.000 Nucleated RBC % (auto) 0.0 Sodium 138 Potassium 3.5 Chloride 108 Carbon Dioxide 22 Anion Gap 12 BUN 26 H Creatinine 1.85 H Estim Creat Clear Calc 35.7 Estimated GFR 36 POC Glucose 210 H Random Glucose 207 H Calcium 8.2 L Assessment & Plan Assessment and plan (1) Renal artery stenosis: Status: Acute (2) CKD (chronic kidney disease) stage 3, GFR 30-59 ml/min: Status: Acute Assessment and Plan: 1. SHOH: appears to a new development ? coincident with after his CVA; impressive drops of BP with upright position; prior ECHO reveal DDys func and non-complaint/stiff heart; ; lack of incr HR ? d/t BBlocker or autonomic failure or both Challenging management issue and need to find sweet spot : SBP 130- 150 mmHG : with control of supine HTN and avoid debilitation orthostasis prior U/S showed asymmetric kidneys and doppler very suggestive of ABRAHAM in the larger kidney 2. CKD 3: most c/w DN/HTN renal dis; r/o dysproteinemia makes sense as well 3. ABRAHAM of L Kidney s/p PTRA/stent 4. MALLY: SCr 1.4 to 2.5 less than 18 hrs after angio procedure DDx of MALLY chol emboli- LDH is elevated arterial injury ( dissection/thrombus etc..) with possible renal infarction--- no flank pain goes against renal infarction but does not rule it out IV dye ATN ( seems early) urinary retention other Renal function is improved REC: No need for further IVF; track UOP/renal func; Needs all orthostatic precautions - BENJAMIN stockings, Head end elevation etc Time Spent With Patient Time: Total time spent is greater than 50% in coordination of care (as documented) at patient's floor/unit and/or counseling patient: Procedures Date of Service Date of Service: 04/07/21
[2021-04-07 11:35] LABS: Glucose, Whole Blood 158 mg/dL (60-115)
--- NOTE | 2021-04-07 13:51 | HO.PM.IMPN ---
Subjective Subjective Date of Service: 04/07/21 Interval History: Seen in f/u, orhtostatic hypotensionsion, MALLY and uncontrolled HTN. Overall he feels better, blood pressure is better, less dizzy, renal failure is steadily improving. Review of Systems Gen: no fever Resp: no sob, no cough CV: no chest, no GUTIERRES, no leg edema GI: No n/v, no abd pain Neuro: No confusion Physical Exam Vital Signs: Vital Signs: Last Vital Signs Temp 97.7 F 04/07/21 10:53 Pulse 58 04/07/21 10:53 Resp 18 04/07/21 10:53 BP 128/68 04/07/21 10:53 Pulse Ox 98 04/07/21 10:53 Body Mass Index 22.5 General: AO X 3, no acute distress Resp: CTA bilateral CVS: S1,S2,RRR GI: +BS, NT, no distention Skin: No rash Neuro: motor grossly intact Psych: appropriate affect Objective Data Current Medications Generic Name Dose Route Start Last Admin Trade Name Gucciq PRN Reason Stop Dose Admin Acetaminophen 650 mg 03/22/21 02:25 04/01/21 21:18 Acetaminophen 325 Mg Tablet PO 650 mg Q6H PRN Administration Pain, Mild (Pain Scale 1-3) Albuterol Sulfate 2 puff 03/22/21 04:33 Albuterol Sulfate 90 Mcg 8 Gm Inhaler INHALE Q4H PRN Wheezing Amlodipine Besylate 2.5 mg 04/05/21 12:00 04/07/21 09:38 Amlodipine Besylate 2.5 Mg Tablet PO 2.5 mg DAILY BILLY Administration Protocol Aspirin 81 mg 03/22/21 09:00 04/07/21 09:37 Aspirin Enteric Coated 81 Mg Tablet.Dr PO 81 mg DAILY BILLY Administration Atorvastatin Calcium 80 mg 03/22/21 21:00 04/06/21 21:06 Atorvastatin Calcium 80 Mg Tablet PO 80 mg BEDTIME BILLY Administration Baclofen 2.5 mg 04/02/21 15:00 04/07/21 09:38 Baclofen 10 Mg Tablet PO 2.5 mg TID BILLY Administration Dorzolamide/Timolol 1 drop 03/22/21 09:00 04/07/21 09:43 Dorzolamide/Timolo 2.23%/0.68% 10 Ml Drbtl EYE-BOTH 1 drop BID BILLY Administration Ezetimibe 10 mg 03/22/21 09:00 04/07/21 09:38 Ezetimibe 10 Mg Tablet PO 10 mg DAILY BILLY Administration Escitalopram Oxalate 10 mg 03/22/21 09:00 04/07/21 09:37 Escitalopram Oxalate 10 Mg Tablet PO 10 mg DAILY BILLY Administration Famotidine 20 mg 04/03/21 09:00 04/07/21 09:37 Famotidine 20 Mg Tablet PO 20 mg Q48H BILLY Administration Heparin Sodium (Porcine) 5,000 unit 04/02/21 09:30 04/07/21 09:38 Heparin Sodium,Porcine 5,000 Unit/Ml Vial SUBCUT 5,000 unit Q12H BILLY Administration Hydralazine HCl 50 mg 04/03/21 21:00 04/06/21 21:09 Hydralazine Hcl 50 Mg Tablet PO 50 mg BEDTIME BILLY Administration Protocol Promethazine HCl 12.5 mg/ 50.5 mls @ 202 mls/hr 04/01/21 10:57 04/01/21 10:45 Sodium Chloride IV Infused Q4H PRN Infusion Nausea Insulin Glargine 10 unit 03/28/21 11:44 04/07/21 09:38 Insulin Glargine,Hum.Rec.Anlog 100 Unit/Ml 10 Ml Vial SUBCUT 10 unit DAILY BILLY Administration Insulin Human Lispro 0 unit 03/22/21 07:30 04/07/21 11:40 Insulin Lispro 100 Unit/Ml 3 Ml Vial SUBCUT Not Given QIDACHS [facility] Protocol Latanoprost 1 drop 03/22/21 21:00 04/06/21 21:12 Latanoprost 0.005 % Ophth Sandy 2.5 Ml Drops EYE-BOTH 1 drop BEDTIME BILLY Administration Magnesium Hydroxide 30 ml 03/22/21 02:25 Milk Of Magnesia 30 Ml Oral.Susp PO DAILY PRN Constipation Melatonin 6 mg 03/22/21 21:00 04/06/21 21:04 Melatonin 3 Mg Tablet PO 6 mg BEDTIME BILLY Administration Metoprolol Succinate 100 mg 04/03/21 21:00 04/07/21 09:37 Metoprolol Succinate Er 100 Mg Tab.Er.24h PO 100 mg BID BILLY Administration Protocol Ondansetron HCl 4 mg 03/23/21 09:55 04/04/21 20:45 Ondansetron Hcl 4 Mg/2 Ml Vial IVPUSH 4 mg Q6H PRN Administration Nausea and vomitting Sodium Chloride 3 ml 03/22/21 08:00 04/07/21 07:44 0.9 % Sodium Chloride Flush 3 Ml Syringe IVFLUSH 3 ml QSHIFT BILLY Administration Ticagrelor 90 mg 04/02/21 21:00 04/07/21 09:37 Ticagrelor 90 Mg Tablet PO 90 mg BID BILLY Administration Vitamin D 50 mcg 03/22/21 09:00 04/07/21 09:38 Cholecalciferol (Vitamin D3) 25 Mcg Tablet PO 50 mcg DAILY BILLY Administration Labs CBC & Chem 7: 04/07/21 06:00 04/07/21 06:00 Labs: Laboratory Results - last 24 hr 04/06/21 04/06/21 04/07/21 16:08 20:51 06:00 WBC 9.6 RBC 3.15 L Hgb 10.1 L Hct 30.2 L MCV 95.9 MCH 32.1 MCHC 33.4 RDW 13.1 Plt Count 220 MPV 9.3 L Absolute Nucleated RBC 0.000 Nucleated RBC % (auto) 0.0 Sodium Potassium Chloride Carbon Dioxide Anion Gap BUN Creatinine Estim Creat Clear Calc Estimated GFR POC Glucose 275 H 212 H Random Glucose Calcium 04/07/21 04/07/21 04/07/21 06:00 07:04 10:58 WBC RBC Hgb Hct MCV MCH MCHC RDW Plt Count MPV Absolute Nucleated RBC Nucleated RBC % (auto) Sodium 138 Potassium 3.5 Chloride 108 Carbon Dioxide 22 Anion Gap 12 BUN 26 H Creatinine 1.85 H Estim Creat Clear Calc 35.7 Estimated GFR 36 POC Glucose 210 H 158 H Random Glucose 207 H Calcium 8.2 L Quality Stroke Does the patient have a stroke diagnosis?: No VTE Prior VTE?: No VTE Risk Level:: Medical - moderate - high VTE Device Contraindication: N/A - Device Ordered VTE Drug Contraindication: N/A - Med Ordered Assessment and Plan (1) CAD (coronary artery disease): Status: Acute Assessment and Plan: 70-year-old male with a past medical history of hypertension, hyperlipidemia, diabetes, coronary artery disease, CKD, history of CVA with left-sided weakness, abdominal aortic aneurysm, recent admission to the hospital for hypertensive urgency presented to the hospital with a chief complaint of fall/near syncope here with difficult to control orthostatic hypotension and supine hypertension Orthostatic hypotension with supine hypertension. Initially very labile, but improving. Seems to be stablizing with this current regimen of antihypertensives OOB to chair Seen and evaluated by Neurology and Cardiology -orthostatic precautions, sleep in reclined position when able -recommendation to check SPEP, UPEP, kappa light chain to eval for amyloidosis, pending -hydralazine increased to better treat nighttime supine hypertension, metoprol BID, amlodipine at noon good regimen so far -outpatient workup for Parkinson's disease -BENJAMIN stockings Renal artery stenosis. s/p left renal artery stent 04/01 -Vascular following -pain mangement h/o CVA -continue asa, brilinta and statin -was participating in PT/OT as outpatient, would like to resume MALLY on CKD 3. improving. ? IV dye ATN s/p angiogram and left renal stent placement 04/01 -stop IVF -Follow renal function -aldactone has been on hold -nephrology following -renally dose baclofen, d/c descovy - resume when renal function allows CAD -continue life long brilinta and asa -continue statin Gastritis -change to po pepcid Diabetes -continue Insulin sliding scale -tresiba converted to Lantus Mood -continue lexapro HLD -continue statin, zetia DVT prophylaxis: heparin SQ okayed by vascular Code status: Full code Dispo to STR
--- NOTE | 2021-04-07 15:12 | MHC.CM.PN ---
Per Юлия, from [facility], SNF is not prepared to accept Patient back today. CM must reach out to Director- Jag Yan @ [phone] tomorrow morning. Both MD and CM Management has been made aware.
--- NOTE | 2021-04-07 15:22 | PM.DS ---
DS: Providers Provider Date of Service: 04/07/21 Date of admission: 03/22/21 02:25 Primary care physician: Ryder Lou MD Consults: 03/23/21 10:16 Consult to Nephrology Routine Consulting Provider: Cassius Branch Reason for consultation: Orthostatic hypotension 03/29/21 14:06 Consult to Cardiology Routine Consulting Provider: Emmanuel Valdez Reason for consultation: orthostasis Has provider been notified: No Consult to Neurology Routine Consulting Provider: [facility] Reason for consultation: post stroke orthostasis Has provider been notified: No 03/30/21 12:04 Consult to Vascular Surgery Routine Consulting Provider: Marvin Phoenix Reason for consultation: renal artery stenosis Has provider been notified: No 03/31/21 15:28 Consult to Care Team Routine Comment: Reason for consultation: depression DS: Diagnosis Discharge Diagnosis (1) CAD (coronary artery disease): Status: Resolved DS: Medications Discharge Medications Home Medications: Home Medications Medication Instructions Recorded Confirmed aspirin 81 mg tablet,delayed 81 mg PO DAILY 09/10/20 03/22/21 release cholecalciferol (vitamin D3) 50 50 mcg PO DAILY 09/10/20 03/22/21 mcg (2,000 unit) capsule emtricitabine 200 mg-tenofovir 1 tab PO DAILY 09/10/20 03/22/21 alafenamide fumarate 25 mg tablet latanoprost 0.005 % eye drops 1 drp OPHTHALMIC (EYE) BEDTIME 09/10/20 03/22/21 nitroglycerin 0.4 mg sublingual 0.4 mg SUBLINGUAL Q5M PRN 09/10/20 03/22/21 tablet escitalopram oxalate 10 mg tablet 10 mg PO DAILY 12/31/20 03/22/21 insulin aspart U-100 100 unit/mL 0 unit SUBCUT QIDACHS ml 12/31/20 03/22/21 (3 mL) subcutaneous pen dorzolamide-timolol 1 drp OPHTHALMIC (EYE) BID 01/12/21 03/22/21 baclofen 5 mg PO TID 02/12/21 03/22/21 Tresiba FlexTouch U-100 45 unit SUBCUT DAILY 02/19/21 03/22/21 albuterol sulfate 2 puff INHALATION Q4H PRN 02/19/21 03/22/21 carvedilol 12.5 mg PO BID 02/19/21 03/22/21 melatonin 5 mg PO BEDTIME 02/19/21 03/22/21 Brilinta 1 tab PO BID 03/10/21 03/22/21 Previous Rx's Medication Instructions Recorded ezetimibe 10 mg tablet 10 mg PO DAILY 90 Days #90 tab 11/26/20 atorvastatin 80 mg tablet 80 mg PO BEDTIME 30 Days #30 tab 02/12/21 nifedipine 120 mg PO BEDTIME #60 tab 03/12/21 spironolactone 50 mg PO DAILY #30 tab 03/12/21 DS: Summary Hospital Course Hospital Course: [age] year male with a past medical history of hypertension, hyperlipidemia, diabetes, coronary artery disease, chronic kidney disease, abdominal aortic aneurysm, left renal artery stenosis, history of pituitary macroadenoma, history of CVA with left-sided weakness, history of carotid endarterectomy, recent admission to the hospital for hypertensive urgency presented to the hospital with a chief complaint of fall. Patient reported that this evening he felt dizzy and lightheaded and subsequently fell down mentions that he may have passed out few seconds. Denies any headaches numbness tingling. Denies any hip pain or back pain. Denies any chest pain or palpitations. Patient reported that he had an episode of vomiting at home and also had an episode of vomiting in the ER. Denies any abdominal discomfort. Review of all other systems is negative except mentioned above ER course: Per ER team patient's exam was nonfocal, patient on presentation noted to have blood pressure of 77/40. Given IV fluids with improvement in blood pressure Cardiology November 28. EKG nonischemic. Troponin negative. CT head showed no acute findings reviewed admitted to the hospital for further management. Hopital course: Patient with recent stroke and left sided weakness and presented to the ED with syncope and clearly was noted to have marked orthostatic hypotension initially attributed to his blood pressure medication of Niefedipine 120 daily in addition to aldactone, coreg. Over the course of hospitalization, he was noted to have extremetly very high SBP of 200 or greater that dropped to less than 100 uppon standing and causing symptoms of dizzinness. His blood pressure was quite a challenge to manage with cardiology and Nephrology helping in achieving a sustainable blood pressure. At home, he was on Nifedipine 120 daily, Coreg 12.5 bid, Aldactone 50 mgadaily. While Nefedipine dose was initially reduced, it ultimately has to be discontinued as it was having signifant change in orthostatic blood pressure. With the help of cardiology and Nephrology, his blood pressure medication have been adjusted with Metoprolol xl 100 bid replacing Coreg, Hydralazine 50mg is given at bedtime, and Nifedipine has been discontinued replaced with Norvasc 2.5 mg daily--with these changes, blood pressure is much better. Another important factor that help with his blood pressure is Renal artery stenosis that was stented on 04/01/[address] Phoenix . Unfortunately less than 24 hours later, he developped Acute on chronic renal failure that we think is related to cholesterol emboli and contrast Nephropathy. His baseline creatinine about 1.7 went up to 2.51 on the 02 April and was treated with IVF with the supervision of Nephrology and Creatine has now trended and near his baseline and presently creatinine is 1.85 today 04/07 and should follow up with Dr. Lei his Teacher Emotionally Impaired. For his diabetes, he takes Tresiba 45 daily at home with short acting coverage with humalo. While in the hospital has been on lantus 10 at HS and sliding, I think this can continue at rehab until he goes home. 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 CAD--stable to continue Brilanta, ASA, BP meds, and Zetia Mood -continue lexapro HLD -continue statin, zetia Time Spent with Patient Time attestation: Total time spent providing and/or coordinating discharge services: Discharge coordination time: Greater than 30 minutes Quality: Stroke Does the patient have a stroke diagnosis?: No Physical Exam Vital Signs: Vital Signs: Last Vital Signs Temp 97.7 F 04/07/21 10:53 Pulse 60 04/07/21 15:20 Resp 18 04/07/21 10:53 BP 160/70 H 04/07/21 15:20 Pulse Ox 98 04/07/21 10:53 Body Mass Index 22.5 Constitutional Awake and Alert, No apparent distress Neck Supple, No lymphadenopathy Cardiovascular RRR, No M/R/G, S1 S2, No S3 S4, No pedal edema Respiratory Lungs clear, No respiratory distress Gastrointestinal Non tender, Non-distended Skin No rash Neurological Alert & oriented x3, left sided weakness most prominent in the hand Psychological Appropriate affect DS: Data Data Completed and Pending Labs on day of discharge: Laboratory Results - last 24 hr 04/06/21 04/06/21 04/07/21 16:08 20:51 06:00 WBC 9.6 RBC 3.15 L Hgb 10.1 L Hct 30.2 L MCV 95.9 MCH 32.1 MCHC 33.4 RDW 13.1 Plt Count 220 MPV 9.3 L Absolute Nucleated RBC 0.000 Nucleated RBC % (auto) 0.0 Sodium Potassium Chloride Carbon Dioxide Anion Gap BUN Creatinine Estim Creat Clear Calc Estimated GFR POC Glucose 275 H 212 H Random Glucose Calcium 04/07/21 04/07/21 04/07/21 06:00 07:04 10:58 WBC RBC Hgb Hct MCV MCH MCHC RDW Plt Count MPV Absolute Nucleated RBC Nucleated RBC % (auto) Sodium 138 Potassium 3.5 Chloride 108 Carbon Dioxide 22 Anion Gap 12 BUN 26 H Creatinine 1.85 H Estim Creat Clear Calc 35.7 Estimated GFR 36 POC Glucose 210 H 158 H Random Glucose 207 H Calcium 8.2 L Discharge Plan Discharge Anticipated Discharge Date/Time: 04/07/21 14:51 Patient Disposition: Xfer Inpatient Rehab Fac Discharge Diagnosis: orthostatic HyPotension, renal failure, renal artery stenosis, Referrals: [facility] [place] [Outside] - 1 Week Ryder Lou MD [Primary Care Provider] - 1 Week Discharge Medications: New acetaminophen 325 mg Tablet 650 mg PO Q6H PRN (Reason: Pain, Mild (Pain Scale 1-3)) Qty: 60 RF: 0 hydralazine 50 mg Tablet 50 mg PO BEDTIME Qty: 90 RF: 0 amlodipine 2.5 mg Tablet 2.5 mg PO DAILY Qty: 30 RF: 0 Lantus U-100 Insulin 100 unit/mL Solution 10 unit subcut DAILY Qty: 10 RF: 0 insulin lispro [Humalog U-100 Insulin] 100 unit/mL Solution See Protocol unit subcut QIDACHS Qty: 10 RF: 0 Continued ezetimibe [Zetia] 10 mg tablet 10 mg PO DAILY 90 Days Qty: 90 RF: 1 atorvastatin 80 mg tablet 80 mg PO BEDTIME 30 Days Qty: 30 RF: 11 dorzolamide-timolol 22.3-6.8 mg/mL Drops 1 drp OPHTHALMIC (EYE) BID RF: 0 albuterol sulfate 90 mcg/actuation Hfa Aerosol Inhaler 2 puff INHALATION Q4H PRN (Reason: Wheezing) RF: 0 melatonin 5 mg Tablet 5 mg PO BEDTIME RF: 0 Brilinta 90 mg tablet 1 tab PO BID RF: 0 escitalopram oxalate 10 mg tablet 10 mg PO DAILY RF: 0 latanoprost [Xalatan] 0.005 % drops 1 drp ophthalmic (eye) BEDTIME RF: 0 cholecalciferol (vitamin D3) 50 mcg (2,000 unit) capsule 50 mcg PO DAILY RF: 0 aspirin 81 mg tablet,delayed release (DR/EC) 81 mg PO DAILY RF: 0 Changed baclofen 10 mg tablet 2.5 mg PO TID Qty: 0 RF: 0 Discontinued carvedilol 12.5 mg tablet 12.5 mg PO BID RF: 0 Tresiba FlexTouch U-100 100 unit/mL (3 mL) insulin pen 45 unit subcut DAILY RF: 0 nifedipine 60 mg Tablet Extended Release 24hr 120 mg PO BEDTIME Qty: 60 RF: 0 spironolactone 50 mg tablet 50 mg PO DAILY Qty: 30 RF: 0 nitroglycerin 0.4 mg tablet, sublingual 0.4 mg sublingual Q5M PRN (Reason: Chest Pain) RF: 0 Descovy 200-25 mg tablet 1 tab PO DAILY RF: 0 insulin aspart U-100 [Novolog Flexpen U-100 Insulin] 100 unit/mL (3 mL) insulin pen 0 unit subcut QIDACHS RF: 0 Discharge Orders: Discharge Order (Routine); Ordered 04/07/21 Ordered By: Antione Butler Diet: advance to usual diet and diabetic diet Activity on Discharge: w/ assista Stand Alone Forms: Patient Portal Discharge page Care Plan Goals: Full recovery from syncope and orthostatic hypOtension Health Concerns: Orthostatic hypotension, uncontolled HTN, renal failure Plan of Treatment: To short term rehab. While orthostatic hYpotension and systemic hypertension is better, patient remains at risk for orthostatic hypotension that can cause syncope, threfore patient should be very careful when going from lying from sitting to standing position and should do it in stepwise fashion with preferably time in bewteen, about 5 minutes or so, he should use a walker to ambulate and should have assitance with him. He should follow up with Nephrology on outpatient basis, He may benefit in future for outpatient tilt table test Assessment: See above. Discharge Date/Time: 04/07/21 18:20
--- NOTE | 2021-04-07 15:44 | MHC.CM.PN ---
Patient has been medically cleared for dc to [facility] today. Patient will dc to [facility] today at 6PM, via [facility]. Second IMM addressed with Patient, providing him with the original and placing a copy on the chart.
[2021-04-07 15:58] LABS: COVID-19 Test Negative (Negative); IDNOW Serial# 9DD0AD1C
[2021-04-07 16:24] LABS: Glucose, Whole Blood 134 mg/dL (60-115)
[2021-04-13 03:12] LABS: Kappa, Serum 203 mg/dL (176-443); Kappa/Lambda Ratio, Serum 1.59 (1.29-2.55); Lambda, Serum 128 mg/dL (91-240)
== END 2021-04-07 18:20 | DRG 674 ==
LOC: HO.ED 02:35 → HO.EDOVER 03:41 → HO.IMC 03:41
PROVIDERS: Family Medicine; Internal Medicine Nephrology; Nurse Practitioner Acute Care; Physician Assistant Medical; Surgery Vascular Surgery; Admitting Provider Hospitalist; Emergency Provider Emergency Medicine; PCP Internal Medicine; Visit Provider Internal Medicine
PROC: 047A3DZ Dilation of Left Renal Artery with Intraluminal Device, Percutaneous Approach (ICD-10-PCS; principal; 2021-04-01 07:30)
DX: I13.10 Hypertensive heart and chronic kidney disease without heart failure, with stage 1 through stage 4 chronic kidney disease, or unspecified chronic kidney disease (principal); I69.354 Hemiplegia and hemiparesis following cerebral infarction affecting left non-dominant side; N17.9 Acute kidney failure, unspecified; K29.70 Gastritis, unspecified, without bleeding; E78.5 Hyperlipidemia, unspecified; E11.22 Type 2 diabetes mellitus with diabetic chronic kidney disease; I25.10 Atherosclerotic heart disease of native coronary artery without angina pectoris; G21.4 Vascular parkinsonism; F39 Unspecified mood [affective] disorder; I70.1 Atherosclerosis of renal artery; N18.30 Chronic kidney disease, stage 3 unspecified; Z87.891 Personal history of nicotine dependence; Z20.822 Contact with and (suspected) exposure to COVID-19; Z79.4 Long term (current) use of insulin; Z79.82 Long term (current) use of aspirin; Z79.899 Other long term (current) drug therapy
CPT/HCPCS: 36415; 37236; 70450; 71045; 76937; 80048; 81001; 82947; 83615; 83880; 83883; 84155; 84165; 84300; 84484; 85025; 85027; 85610; 85730; 86160; 86850; 86900; 86901; 87635; 89190; 93005; 93306; 97110; 97112; 97116; 97162; 97166; 97530; 99152; 99153; 99219; 99285; C1760; C1769; C1876; C1887; J2270; J2405; J2550; Q9967

== ENCOUNTER 2021-05-10 13:29 | Outpatient (REF) | payer MEDICARE, BC, SELFPAY ==
[2021-05-10 14:58] LABS: Anion Gap 12 (12-20); Blood Urea Nitrogen 30 mg/dL (9-16); Calcium 9.2 mg/dL (8.4-10.2); Carbon Dioxide 26 mmol/L (22-29); Chloride 105 mmol/L (96-108); Estimated Glomerular Filt Rate 27; Glucose Random 235 mg/dL (60-115); Potassium 4.2 mmol/L (3.3-5.1); Sodium 139 mmol/L (135-145)
== END 2021-05-10 13:30 | disposition home or self-care (01) ==
LOC: HO.LAB 13:29
PROVIDERS: PCP Internal Medicine; Visit Provider Internal Medicine Cardiovascular Disease
DX: N18.30 Chronic kidney disease, stage 3 unspecified (principal)
CPT/HCPCS: 36415; 80048

== ENCOUNTER → 2021-05-18 14:14 | Outpatient (BNVA) | payer MEDICARE, BC, SELFPAY | PROVIDERS: PCP Internal Medicine; Referring Provider Internal Medicine; Visit Provider Nurse Practitioner Family | DX: I95.1 Orthostatic hypotension (principal); I10 Essential (primary) hypertension; I25.10 Atherosclerotic heart disease of native coronary artery without angina pectoris; I71.4 Abdominal aortic aneurysm, without rupture; Z86.73 Personal history of transient ischemic attack (TIA), and cerebral infarction without residual deficits; Z79.82 Long term (current) use of aspirin; Z79.899 Other long term (current) drug therapy; Z98.890 Other specified postprocedural states; Z95.5 Presence of coronary angioplasty implant and graft | CPT/HCPCS: 93005; 99212 ==

== ENCOUNTER 2021-05-23 16:30 | Outpatient (REF) | payer MEDICARE, BC, SELFPAY ==
[2021-05-24 15:24] LABS: Leukocytes Stool Qualitative NEGATIVE (NEGATIVE)
[2021-05-25 08:41] LABS: CDiff Gene PCR NEGATIVE (Negative)
== END 2021-05-23 16:31 | disposition home or self-care (01) ==
LOC: HO.LNP 16:30
PROVIDERS: Visit Provider Internal Medicine
DX: R19.7 Diarrhea, unspecified (principal)
CPT/HCPCS: 87045; 87046; 87177; 87209; 87329; 87493; 89055

== ENCOUNTER → 2021-07-01 09:38 | Outpatient (BNVA) | payer MEDICARE, BC, SELFPAY | PROVIDERS: PCP Internal Medicine; Referring Provider Internal Medicine; Visit Provider Internal Medicine Cardiovascular Disease | DX: I25.10 Atherosclerotic heart disease of native coronary artery without angina pectoris (principal); I95.1 Orthostatic hypotension | CPT/HCPCS: 99212 ==

== ENCOUNTER 2021-07-26 12:07 | Outpatient (REF) | payer MEDICARE, BC, SELFPAY ==
[2021-07-26 13:23] LABS: Hematocrit 39.1 % (42-52); Hemoglobin 12.7 g/dl (14.0-18.0); Mean Corpuscular HGB Conc 32.5 g/dl (31.0-36.0); Mean Corpuscular Volume 92.2 fL (80-98); Mean Platelet Volume 9.3 fL (9.4-12.4); Platelet Count 252 X10*3/uL (160-400); Red Blood Count 4.24 X10*6/uL (4.60-5.80); Red Cell Distribution Width 13.2 % (11.0-16.0); White Blood Count 7.5 X10*3/uL (4.8-10.8)
[2021-07-26 13:45] LABS: Albumin Level 4.2 g/dL (3.5-5.0); Anion Gap 11 (12-20); Blood Urea Nitrogen 28 mg/dL (9-16); Carbon Dioxide 28 mmol/L (22-29); Chloride 105 mmol/L (96-108); Estimated Glomerular Filt Rate 34; Magnesium 2.2 mg/dL (1.6-2.6); Phosphorus 3.5 mg/dL (2.7-4.5); Potassium 4.1 mmol/L (3.3-5.1); Sodium 140 mmol/L (135-145)
[2021-07-26 14:12] LABS: Appearance Urine CLEAR; Color Urine YELLOW; Glucose Urine UA 500 MG/DL (NEG); Leukocyte Esterase Urine NEG (NEG); Nitrite Urine NEG (NEG); Urine Blood NEG (NEG); Urine Ketones NEG (NEG); Urine Protein 1+ MG/DL (NEG-TRACE)
[2021-07-26 14:27] LABS: RBC Urine 0 /HPF (0); Squamous Epithelial Cell Urine TRACE /LPF; WBC Urine 0 /HPF (0-4)
[2021-07-26 15:00] LABS: Creatinine Urine 107.06 mg/dL; Microalbum/Creatinine Ratio Ur 86.8 ug/mg cr; Total Protein Urine Random 42 mg/dL (<12)
[2021-07-28 10:11] LABS: Calcium (PTHI) 9.1 mg/dL (8.6-10.3); PTHI 56 pg/mL (14-64)
== END 2021-07-26 12:08 | disposition home or self-care (01) ==
LOC: HO.LAB 12:07
PROVIDERS: PCP Family Medicine; Visit Provider Internal Medicine Nephrology
DX: N18.32 Chronic kidney disease, stage 3b (principal)
CPT/HCPCS: 36415; 80051; 81001; 82040; 82043; 82306; 82310; 82565; 83735; 83970; 84100; 84156; 84520; 85027; 87086

== ENCOUNTER 2021-08-24 15:55 | Outpatient (REF) | payer MEDICARE, BC, SELFPAY ==
[2021-08-24 16:18] LABS: MANUAL DIFF FLAG NO
[2021-08-24 16:34] LABS: Basophils Percent Auto 0.6 % (0-2); Eosinophils Absolute Auto 0.3 X10*3/uL (0.0-0.4); Eosinophils Percent Auto 4.4 % (0-4); Hemoglobin 12.5 g/dl (14.0-18.0); Imm Gran Abs Auto 0.01 X10*3/uL (0.00-0.03); Imm Gran Pct Auto 0.2 % (0.0-0.4); Lymphocytes Absolute Auto 1.3 X10*3/uL (1.2-4.9); Lymphocytes Percent Auto 20.2 % (20-40); Mean Corpuscular HGB Conc 32.9 g/dl (31.0-36.0); Mean Corpuscular Hemoglobin 29.6 pg (27.0-33.0); Mean Platelet Volume 9.2 fL (9.4-12.4); Monocytes Absolute Auto 0.7 X10*3/uL (0.1-1.2); Monocytes Percent Auto 10.8 % (2-11); Neutrophils Absolute Auto 4.19 x10*3/uL (2.0-8.3); Neutrophils Percent Auto 63.8 % (45-73); Platelet Count 245 X10*3/uL (160-400); Red Blood Count 4.22 X10*6/uL (4.60-5.80); Red Cell Distribution Width 13.2 % (11.0-16.0); White Blood Count 6.6 X10*3/uL (4.8-10.8)
[2021-08-24 16:40] LABS: INTERNATIONAL NORM RATIO 0.9 (0.9-1.1); Prothrombin Time 10.5 SEC (9.9-13.0)
[2021-08-24 17:00] LABS: Alanine Aminotransferase 16 U/L (0-40); Albumin Level 4.3 g/dL (3.5-5.0); Aspartate Amino Transferase 15 U/L (5-37); Bilirubin Total 0.5 mg/dL (0.0-1.0); Estimated Glomerular Filt Rate 31
[2021-08-25 09:07] LABS: HIV AB/AG Nonreactive (Nonreactive); HIV Num 1 0.06 S/CO (0.00-0.99); ~HepC Num1 0.16 S/CO (0.00-0.79); ~Hepatitis C Antibody Nonreactive (Nonreactive)
[2021-08-25 09:28] LABS: Syphilis Screen Nonreactive (Nonreactive)
[2021-08-25 18:12] LABS: Hepatitis B Viral DNA Qn - cp <1.00 NOT DETECTED Log IU/mL (NOT DETECTED); Hepatitis B Viral DNA Qn-IU/mL <10 NOT DETECTED IU/mL (NOT DETECTED)
[2021-08-30 20:51] LABS: FIB-ALT 14 U/L (9-46); FIB-Alpha-2-Macroglobulin 340 mg/dL (106-279); FIB-Apolipoprotein A1 104 mg/dL (94-176); FIB-GGT 17 U/L (3-70); FIB-Haptoglobin 133 mg/dL (43-212); FIB-Total Bilirubin 0.4 mg/dL (0.2-1.2); Liver Fibrosis Stage F3; Nec Inflam Act Grade A0; Nec Inflam Act Score 0.07
== END 2021-08-24 15:56 | disposition home or self-care (01) ==
LOC: HO.LAB 15:55
PROVIDERS: Visit Provider Internal Medicine Infectious Disease
DX: Z20.6 Contact with and (suspected) exposure to human immunodeficiency virus [HIV] (principal); B19.10 Unspecified viral hepatitis B without hepatic coma
CPT/HCPCS: 36415; 81596; 82040; 82247; 82565; 84450; 84460; 85025; 85610; 86780; 86803; 87389; 87517

== ENCOUNTER 2021-09-02 13:39 | Outpatient (REF) | payer MEDICARE, BC, SELFPAY ==
--- NOTE | ~2021-09-02 | US_ITS ---
EXAMINATION: US EXTRACRANIAL CAROTID DUPLEX, BILATERAL CLINICAL INFORMATION: This is a 70-year-old male with history of carotid in her rectum he. Carotid artery disease. COMPARISON: Comparison is made to a previous study dated 10/10/2019 which demonstrated bilateral 50-79% internal carotid artery stenoses. TECHNIQUE: Real-time ultrasound and Doppler techniques (integrating B-mode 2-D vascular images, Doppler spectral analysis and color-flow Doppler imaging) were utilized to interrogate the extracranial carotid arteries, the vertebral arteries and proximal subclavian arteries bilaterally. The degree of stenosis is determined by criteria similar to NASCET. FINDINGS: Right Side: 1. There is minimal atherosclerotic plaque seen in the bifurcation/proximal ICA region. 2. The common carotid artery PSV proximally is 126 cm/s and distally 90 cm/s. 3. The proximal internal carotid artery velocities are 58 cm/s systolic and 10 cm/s diastolic. 4. The proximal external carotid artery PSV is 147 cm/s. 5. The vertebral artery shows antegrade flow. 6. The subclavian artery waveforms are normal. Left Side: 1. There is minimal atherosclerotic plaque seen in the bifurcation/proximal ICA region. 2. The common carotid artery PSV proximally is 103 cm/s and distally 84 cm/s. 3. The proximal internal carotid artery velocities are 96 cm/s systolic and 19 cm/s diastolic. 4. The proximal external carotid artery PSV is 164 cm/s. 5. The vertebral artery shows antegrade flow. 6. The subclavian artery waveforms are are stenotic with elevated velocities of 236 cm/s consistent with hemodynamically significant stenosis.. US/US carotid duplex BI IMPRESSION: 1. RIGHT: Minimal, non-hemodynamically significant stenosis of the proximal right internal carotid artery corresponding to a 0-49% stenosis by velocity criteria. 2. LEFT: Minimal, non-hemodynamically significant stenosis of the proximal left internal carotid artery corresponding to a 0-49% stenosis by velocity criteria. 3. There is a hemodynamically significant stenosis of the left subclavian artery. However, the vertebral arteries remain antegrade. 4. The category severity of disease within the internal carotid arteries is less severe on the current study when compared to the previous study dated 10/10/2019.
== END 2021-09-02 13:40 | disposition home or self-care (01) ==
LOC: HO.US 13:39
PROVIDERS: PCP Family Medicine; Visit Provider Surgery Vascular Surgery
DX: I65.23 Occlusion and stenosis of bilateral carotid arteries (principal)
CPT/HCPCS: 93880

== ENCOUNTER 2021-12-14 09:50 | Outpatient (REF) | payer MEDICARE, BC, SELFPAY ==
--- NOTE | ~2021-12-14 | US_ITS ---
EXAMINATION: US ABDOMEN COMPLETE CLINICAL INFORMATION: Hepatitis B. COMPARISON: Ultrasound renal Doppler 03/11/2021. US retroperitoneal limited (renal only) 03/11/2021. CT abdomen and pelvis with contrast 03/27/2017. TECHNIQUE: Real-time imaging of the abdominal viscera. FINDINGS: PANCREAS: Not well visualized due to bowel gas ABDOMINAL AORTA: There is mild dilatation of the distal abdominal aorta measuring 3.6 x 3.6 cm. This measured 3.4 x 3.5 cm on February 2021 exam. INFERIOR VENA CAVA: Visualized portions are normal. LIVER: Normal. The liver is normal in size. The liver contour is normal. Parenchymal echogenicity is normal. No focal hepatic lesion. There is no intrahepatic biliary duct dilatation seen. GALLBLADDER: The gallbladder is physiologically distended. Multiple mobile gallstones are present. No evidence of gallbladder wall thickening or pericholecystic fluid. COMMON BILE DUCT: Normal in caliber measuring 0.4 cm in diameter. RIGHT KIDNEY: Not well visualized The kidney measures 7.2 cm in maximum dimension. LEFT KIDNEY: There is mild fullness of the left renal pelvis similar to previous exam. No hydronephrosis. No renal calculi or focal parenchymal lesions. The kidney measures 11.8 cm in maximum dimension. SPLEEN: Normal. The spleen measures 9.0 cm in maximum dimension. FREE FLUID: None. US/US abdomen complete IMPRESSION: Normal-appearing liver. Gallstones. Slightly dilated distal abdominal aorta measuring 3.6 x 3.6 cm. Limited visualization of the right kidney and pancreas.
== END 2021-12-14 09:51 | disposition home or self-care (01) ==
LOC: HO.US 09:50
PROVIDERS: PCP Family Medicine; Visit Provider Internal Medicine Infectious Disease
DX: B19.10 Unspecified viral hepatitis B without hepatic coma (principal)
CPT/HCPCS: 76700

== ENCOUNTER → 2022-01-04 09:47 | Outpatient (BNVA) | payer MEDICARE, BC, SELFPAY | PROVIDERS: PCP Family Medicine; Referring Provider Family Medicine; Visit Provider Internal Medicine Cardiovascular Disease | DX: Z45.09 Encounter for adjustment and management of other cardiac device (principal); I95.1 Orthostatic hypotension; I25.10 Atherosclerotic heart disease of native coronary artery without angina pectoris | CPT/HCPCS: 99212 ==

== ENCOUNTER 2022-01-17 15:33 | Emergency (ER) | payer MEDICARE, BC, SELFPAY ==
--- NOTE | ~2022-01-17 | XR_ITS ---
EXAMINATION: XR CHEST CLINICAL INFORMATION: Generalized weakness COMPARISON: X-ray 03/22/2021 TECHNIQUE: 2 views of the chest were obtained. FINDINGS: Cardiomediastinal silhouette is within normal limits. Cardiac leads overlie the chest. Cardiac loop recorder. Lungs are well-expanded. No focal consolidation, effusion, edema or pneumothorax. No acute osseous abnormality. XR/XR chest 2V IMPRESSION: No acute pulmonary findings.
--- NOTE | ~2022-01-17 | CT_ITS ---
EXAMINATION: CT HEAD WITHOUT CONTRAST CLINICAL INFORMATION: Weakness. History of CVA. COMPARISON: CT head 03/22/2021 TECHNIQUE: Contiguous axial imaging was performed from the skull base to vertex without intravenous administration of contrast. Coronal and sagittal reformatted images are performed at the CT scanner. [This CT examination was performed using dose optimization techniques as appropriate, variously including the following: *Automated exposure control *Adjustment of mA and/or kV according to patient size (this includes techniques or standardized protocols for targeted exams where dose is matched to indication/reason for exam; i.e. extremities or head) *Use of iterative reconstruction technique] DLP: 746 mGy-cm. FINDINGS: Stable changes from prior right MCA territory infarct with focal encephalomalacia in the right frontal parietal region. Multiple chronic lacunar infarcts in the right basal ganglia. There is no evidence of acute intracranial hemorrhage or territorial infarction. No abnormal mass-effect or midline shift is seen. Elizabeth to white matter differentiation is well preserved. No extra-axial fluid collections are identified. There is generalized global volume loss. There is mild prominence of the ventricles and the sulci . There is mild hypodensity of the periventricular white matter due to chronic small vessel ischemic disease. There are vascular calcifications of the internal carotid arteries bilaterally. There is no osseous abnormality. Small volume of mucosal disease in the ethmoid sinuses. Trace fluid dependently in the right maxillary sinus. Mastoid air cells and middle ear cavities are normally aerated. CT/CT head/brain wo con IMPRESSION: No acute intracranial pathology.
[2022-01-17 15:44] VITALS: BP 187/77; PULSE 70; O2SAT 99
[2022-01-17 15:55] VITALS: BP 184/75; PULSE 71; RESP 16; TEMP 37.9; O2SAT 97; BMI 23.4
--- NOTE | 2022-01-17 16:02 | ECG_ITS ---
Test Reason : sob Blood Pressure : / mmHG Vent. Rate : 071 BPM Atrial Rate : 071 BPM P-R Int : 128 ms QRS Dur : 146 ms QT Int : 440 ms P-R-T Axes : 024 073 -11 degrees QTc Int : 478 ms Normal sinus rhythm Right bundle branch block T wave abnormality, consider inferior ischemia Abnormal ECG When compared with ECG of 22-MAR-2021 01:09, QRS duration has increased Inverted T waves have replaced nonspecific T wave abnormality in Inferior leads T wave inversion now evident in Anterior leads Referred By: Sabrina Perdomo Electronically Signed By:CLARICE ESPINO
--- NOTE | 2022-01-17 16:13 | ED_ITS ---
HPI - Weakness General Chief complaint: Weakness <Sabrina Perdomo CNP - Last Filed: 01/17/22 17:59> Stated complaint: LEFT LEG WEAK SINCE MONDAY FROM SNF PER EMS <Sabrina PerdomoMARY - Last Filed: 01/17/22 17:59> Time Seen by Provider: 01/17/22 15:39 <Sabrina PerdomoMARY - Last Filed: 01/17/22 17:59> Source: patient <Sabrina Perdomo MARY - Last Filed: 01/17/22 17:59> Mode of arrival: EMS <Sabrina Perdomo MARY - Last Filed: 01/17/22 17:59> Limitations: no limitations <Sabrina Perdomo MARY - Last Filed: 01/17/22 17:59> History of Present Illness HPI Narrative: Patient is a 71-year-old male with a past medical history of hypertension, hyperlipidemia, diabetes, coronary artery disease, chronic kidney disease, abdominal aortic aneurysm, left renal artery stenosis, history of pituitary macroadenoma, history of CVA with left-sided weakness, history of carotid endarterectomy. he presents emergency department today for evaluation of generalized weakness. He reports 2 days ago an onset of fatigue and feeling generally weak. Yesterday night he noticed his weakness to be significantly worsened had difficulty getting from the living room to his bedroom. He continued to be weak this morning requiring help of family members to get him out of bed. He reports his sister expressed concern that he was not moving his left foot appropriately. Patient had a telehealth call with his primary care provider this morning as he tested positive for COVID- 19 in addition to his family members, and was advised by his PCP to come to the emergency department for evaluation of his weakness. Overall, he reports feeling improvement in his weakness in comparisson to this morning. received COVID-19 Pfizer vaccine x3, referred for monoclonal antibody infusion through [facility] by PCP this morning, not yet scheduled for infusion. He denies fevers, chills, headache, vision changes, difficulty speaking, difficulty swallowing, numbness or tingling of the extremities, neck pain, sore throat, chest pain, palpitations, shortness of breath, difficulty breathing, nausea, vomiting, abdominal pain, dysuria urinary frequency/ urgency / hesitancy. He does continue have a residual left arm weakness since his stroke last year. <Sabrina Almaraz Conor, DEVICE REPAIR TECHNICIAN - Last Filed: 01/17/22 17:59> Related Data Home medications: Home Medications Medication Instructions Recorded Confirmed aspirin 81 mg tablet,delayed 81 mg PO DAILY 09/10/20 01/04/22 release cholecalciferol (vitamin D3) 50 50 mcg PO DAILY 09/10/20 01/04/22 mcg (2,000 unit) capsule latanoprost 0.005 % eye drops 1 drp OPHTHALMIC (EYE) BEDTIME 09/10/20 01/04/22 (Xalatan) dorzolamide 22.3 mg-timolol 6.8 1 drp OPHTHALMIC (EYE) BID 01/12/21 01/04/22 mg/mL eye drops albuterol sulfate 90 mcg/actuation 2 puff INHALATION Q4H PRN 02/19/21 01/04/22 aerosol inhaler melatonin 5 mg tablet 5 mg PO BEDTIME 02/19/21 01/04/22 entecavir 0.5 mg tablet 0.5 mg PO DAILY 05/18/21 01/04/22 escitalopram oxalate 10 mg tablet 20 mg PO DAILY tab 05/18/21 01/04/22 metoprolol succinate 100 mg 100 mg PO BID 05/19/21 01/04/22 tablet,extended release 24 hr amlodipine 5 mg tablet 10 mg PO DAILY tab 01/04/22 01/04/22 ticagrelor 90 mg tablet (Brilinta) 90 mg PO BID 01/04/22 01/04/22 Previous Rx's Medication Instructions Recorded ezetimibe 10 mg tablet (Zetia) 10 mg PO DAILY 90 Days #90 tab 11/26/20 atorvastatin 80 mg tablet 80 mg PO BEDTIME 30 Days #30 tab 02/12/21 hydralazine 50 mg tablet 50 mg PO BEDTIME #90 tab 04/07/21 insulin glargine 100 unit/mL 10 unit (0.1 mL) SUBCUT DAILY #10 04/07/21 subcutaneous solution (Lantus ml U-100 Insulin) insulin lispro 100 unit/mL See Protocol SUBCUT QIDACHS #10 ml 04/07/21 subcutaneous solution (Humalog U-100 Insulin) cefuroxime axetil 250 mg tablet 250 mg PO Q12H 7 Days #14 tab 01/17/22 doxycycline monohydrate 100 mg 100 mg PO BID #20 cap 01/22/22 capsule <Sabrina Perdomo CNP - Last Filed: 01/17/22 17:59> Allergies/Adverse reactions: Allergies Allergy/AdvReac Type Severity Reaction Status Date / Time No Known Allergies Allergy Verified 05/18/21 14:28 <Sabrina Perdomo CNP - Last Filed: 01/17/22 17:59> Review of Systems Review of Systems: Constitutional: positive generalized weakness and fatigue. No weight loss, fever, chills.. HEENT: No visual loss, blurred vision, double vision or yellow sclera. No hearing loss, sneezing, congestion, runny nose or sore throat. Skin: No rash or itching. Cardiovascular: No chest pain, chest pressure or chest discomfort. No palpitations or pedal edema. Respiratory: No shortness of breath, cough or sputum production. Gastrointestinal: No anorexia, nausea, vomiting or diarrhea. No abdominal pain or blood in stool. Genitourinary: No burning micturition. No urinary frequency or incontinence. Neurologic: + positive history of left arm residual weakness. No headache, dizziness, syncope, ataxia, numbness or tingling in the extremities. No change in bowel or bladder control. Musculoskeletal: No muscle pain, back pain, joint pain or stiffness. Hematologic: No bleeding or bruising. Lymphatics: No enlarged lymph nodes. Psychiatric:No depression or anxiety. Endocrine: No reports of sweating. No cold or heat intolerance. No polyuria or polydipsia. <Sabrina Perdomo CNP - Last Filed: 01/17/22 17:59> [facility] [place] Past Medical History Attestation statement: The following information was validated with the patient. <Sabrina Perdomo CNP - Last Filed: 01/17/22 17:59> Source: old records reviewed <Sabrina Perdomo CNP - Last Filed: 01/17/22 17:59> Medical History: Medical History AAA (abdominal aortic aneurysm) CAD (coronary artery disease) Carotid artery disease Cerebral microvascular disease CKD (chronic kidney disease) stage 3, GFR 30-59 ml/min CKD (chronic kidney disease) stage 3, GFR 30-59 ml/min CVA (cerebral vascular accident) Encounter for loop recorder check History of stent insertion of renal artery HLD (hyperlipidemia) HTN (hypertension) Hypertension Hypertensive urgency Left hemiparesis Left renal artery stenosis Multiple cerebral infarctions Peroneal neuropathy Pituitary adenoma Pituitary macroadenoma Status post placement of implantable loop recorder Stroke Stroke due to stenosis of right carotid artery T1DM (type 1 diabetes mellitus) TIA (transient ischemic attack) Vitamin D deficiency <Sabrina Perdomo CNP - Last Filed: 01/17/22 17:59> Surgical History: Surgical History History of carotid endarterectomy History of heart artery stent <Sabrina Perdomo CNP - Last Filed: 01/17/22 17:59> Family History Family History: Family History Father CVD (cardiovascular disease) AAA (abdominal aortic aneurysm) Mother No problems noted. <Sabrina Perdomo CNP - Last Filed: 01/17/22 17:59> Social History Social History: Social History Household Members: Spouse and Family Housing: House Do you presently have visiting nurse or other home services: Yes Alcohol intake: never Patient Tobacco Use Status: Former Tobacco user Quit Date: December 2020 Tobacco use type: Cigarette Years Smoked: 50+ Second Hand Smoke Exposure: No Advance Directives: Yes Advance Directives Information Provided: No Advance Directives on File: No service: No Current occupational status: unemployed and retired <Sabrina Perdomo CNP - Last Filed: 01/17/22 17:59> Physical Exam Vital Signs: Vital Signs: Last Vital Signs Temp 98.0 F 01/17/22 20:21 Pulse 62 01/17/22 20:21 Resp 16 01/17/22 20:21 BP 151/66 H 01/17/22 20:21 Pulse Ox 97 01/17/22 20:21 BMI result Body Mass Index 23.4 Vital signs have been reviewed and appeared to be correct. Blood pressure is elevated 184/75.? Heart rate normal.? Respiration rate normal. Temperature elevated 100.2.? Oxygen saturation normal. <Sabrina Perdomo CNP - Last Filed: 01/17/22 17:59> Vital Signs: Last Vital Signs Temp 98.0 F 01/17/22 20:21 Pulse 62 01/17/22 20:21 Resp 16 01/17/22 20:21 BP 151/66 H 01/17/22 20:21 Pulse Ox 97 01/17/22 20:21 BMI result Body Mass Index 23.4 <Halina Villar NP - Last Filed: 01/22/22 09:26> Appearance: Alert.?Oriented to person, place and time. No acute distress.?Normal affect. Eyes: Pupils equal, round and reactive to light.? ENT: Pharynx normal.?? Neck: Normal inspection.? Neck supple.?? CVS: Heart sounds normal. Normal heart rate and rhythm.? Pulses normal.?? Respiratory: No respiratory distress.? Lung sounds clear to auscultation bilaterally?? Abdomen: Soft and non-tender. Normoactive bowel sounds. No pulsatile mass.?? Skin: Skin warm and dry.? Normal skin color.? Normal skin turgor.?? Extremities: No lower extremity edema.? No calf ttp? Neuro: Aside from left arm residual weakness, No focal neurological deficit observed, CN II-XII intact, normal sensory observed, normal coordination observed. Level of consciousness: Appropriate for age. Motor strength: Right upper extremity 5 /5, left upper extremity 2 /5, right lower extremity 5 /5, left lower extremity 5 /5.?Speech: Normal. Qkzjhu-as-[id number] test: Normal, Ajny-pm-[id number] test: Normal. Gait: weak, steady <Sabrina Perdomo CNP - Last Filed: 01/17/22 17:59> NIH Stroke Scale Internal: Initial- Upon Arrival <Sabrina Perdomo CNP - Last Filed: 01/17/22 17:59> Level of Consciousness: Alert <Sabrina Perdomo CNP - Last Filed: 01/17/22 17:59> Level of Consciousness Questions: Answers both questions correctly <Sabrina Perdomo CNP - Last Filed: 01/17/22 17:59> Level of Consciousness Commands: Performs both tasks correctly <Sabrina PerdomoMARY - Last Filed: 01/17/22 17:59> Best Gaze: Normal <Sabrina PerdomoMARY - Last Filed: 01/17/22 17:59> Visual: No visual loss <Sabrina PerdomoMARY - Last Filed: 01/17/22 17:59> Facial Palsy: Normal <Sabrina PerdomoMARY - Last Filed: 01/17/22 17:59> Motor Arm (Right): No drift <Sabrina Perdomo, DEVICE REPAIR TECHNICIAN - Last Filed: 01/17/22 17:59> Motor Arm (Left): Some effort against gravity <Sabrina Perdomo, DEVICE REPAIR TECHNICIAN - Last Filed: 01/17/22 17:59> Motor Leg (Right): No drift <Sabrina Perdomo, DEVICE REPAIR TECHNICIAN - Last Filed: 01/17/22 17:59> Motor Leg (Left): No drift <Sabrina PerdomoMARY - Last Filed: 01/17/22 17:59> Limb Ataxia: Absent <Sabrina PerdomoMARY - Last Filed: 01/17/22 17:59> Sensory: Normal <Sabrina PerdomoMARY - Last Filed: 01/17/22 17:59> Best Language: No aphasia <Sabrina PerdomoMARY - Last Filed: 01/17/22 17:59> Dysarthia: Normal <Sabrina PerdomoMARY - Last Filed: 01/17/22 17:59> Extinction and Inattention: No abnormality <Sabrina PerdomoMARY - Last Filed: 01/17/22 17:59> Score: 2 <Sabrina MeraMARY flores - Last Filed: 01/17/22 17:59> 2 <Halina Villar NP - Last Filed: 01/22/22 09:26> Course Course Course Narrative: Patient is a 71-year-old male and a segment who presents emergency department for evaluation of generalized weakness, who is COVID-19 positive with symptoms or 3 days, advised by his primary care provider come to the emergency department for further evaluation. Will obtain CBC to evaluate for leukocytosis/ anemia, BMP to evaluate for abnormal electrolytes /abnormal renal function, EKG and troponin to evaluate for ischemia/ACS. Urinalysis to evaluate for infection. NIH score 2, due to residual left arm weakness, which is reportedly his baseline, LKWT unknown, weakness x 3 days, increasingly worse since last night. Patient is not on anticoagulants however does take ticagrelor and aspirin. CT head to exclude ischeia, ICH, SAH, although I suspect that his generalized weakness is most likely due to COVID-19 infection. Will receive 1 L normal saline IV fluids in addition to Tylenol. <Sabrina Perdomo CNP - Last Filed: 01/17/22 17:59> Reevaluation(s) Reevaluation #1: EKG concerning for T-wave inversion lead III, which seems more pronounced when compared with prior, and T-wave inversion in V3 and V4 patient asymptomatic without any chest pain a palpitations, shortness of breath or difficulty breathing. Initial troponin elevated 41.3 will obtain repeat delta troponin 3 hours, continues to be without chest pain, palpitations, shortness of breath difficulty breathing, neck pain or any new additional symptoms. BUN and creatinine are elevated 21 and 2.1 consistent with prior levels. mild anemia with hemoglobin 12.9 and hematocrit 38.6 consistent with baseline levels. CT head pending. <Sabrina Perdomo CNP - Last Filed: 01/17/22 17:59> Time: 17:15 <Sabrina Perdomo CNP - Last Filed: 01/17/22 17:59> Reevaluation #2: patient signed out to Anali Orlando NP pending head CT and repeat troponin, plan if both are normal to be discharged home with outpatient follow- up with PCP and monoclonal antibody infusion. <Sabrina Perdomo CNP - Last Filed: 01/17/22 17:59> Time: 17:55 <Sabrina Perdomo CNP - Last Filed: 01/17/22 17:59> Additional Reevaluation(s): Addendum to the chart-urine culture shows >100,000 staph epidermidis sensitive to erythromycin, macrobid, oxacillin, tetracycline. patient currently on cefuroxime. Called and having continued UTI symptoms. Will change antibiotic to doxycycline x 10 days. Called in to pharmacy <Halina Villar NP - Last Filed: 01/22/22 09:26> MDM - Weakness Medical Records Attestation: I reviewed the patient's medical records. <Sabrina Perdomo CNP - Last Filed: 01/17/22 17:59> Lab Data Attestation: I reviewed the patient's lab results. <Sabrina Perdomo CNP - Last Filed: 01/17/22 17:59> Result diagrams: : 01/17/22 16:26 01/17/22 16:26 <Sabrina Perdomo CNP - Last Filed: 01/17/22 17:59> Labs: Lab Results 01/17/22 01/17/22 01/17/22 Range/Units 16:23 16:26 16:26 WBC 7.4 (4.8-10.8) X10*3/uL RBC 4.36 L (4.60-5.80) X10*6/uL Hgb 12.9 L (14.0-18.0) g/dl Hct 38.6 L (42.0-52.0) % MCV 88.5 (80.0-98.0) fL MCH 29.6 (27.0-33.0) pg MCHC 33.4 (31.0-36.0) g/dl RDW 13.6 (11.0-16.0) % Plt Count 189 (160-400) X10*3/uL MPV 9.2 L (9.4-12.4) fL Immature Gran % (Auto) 0.1 (0.0-0.4) % Neut % (Auto) 69.4 (45-73) % Lymph % (Auto) 8.8 L (20-40) % [place] % (Auto) 20.8 H (2-11) % Eos % (Auto) 0.5 (0-4) % Baso % (Auto) 0.4 (0-2) % Lymph # (Auto) 0.7 L (1.2-4.9) X10*3/uL [place] # (Auto) 1.5 H (0.1-1.2) X10*3/uL Eos # (Auto) 0.0 (0.0-0.4) X10*3/uL Baso # (Auto) 0.0 (0.0-0.2) X10*3/uL Abs Immat Gran (auto) 0.01 (0.00-0.03) X10*3/uL Absolute Neuts (auto) 5.1 (2.0-8.3) x10*3/uL Absolute Nucleated RBC 0.000 (0.0-0.012) X10*3/uL Nucleated RBC % (auto) 0.0 (0.0-0.2) /100WBC Smear Tech's Comments VERIFIED Sodium 133 L (135-145) mmol/L Potassium 3.9 (3.3-5.1) mmol/L Chloride 100 (96-108) mmol/L Carbon Dioxide 25 (22-29) mmol/L Anion Gap 12 (12-20) BUN 21 H (9-16) mg/dL Creatinine 2.10 H (0.5-1.4) mg/dL Estim Creat Clear Calc 31.6 Estimated GFR 31 Random Glucose 259 H (60-115) mg/dL Lactic Acid (0.5-2.0) mmol/L Calcium 8.9 (8.4-10.2) mg/dL Magnesium 1.9 (1.6-2.6) mg/dL Troponin I High Sens (<3.5-35.0) ng/L Urine Color Urine Appearance Urine pH (5.0-8.0) Ur Specific [place] (1.005-1.025) Urine Protein (NEG-TRACE) MG/DL Urine Glucose (UA) (NEG) MG/DL Urine Ketones (NEG) MG/DL Urine Blood (NEG) Urine Nitrite (NEG) Ur Leukocyte Esterase (NEG) Urine RBC (0) /HPF Urine WBC (0-4) /HPF Ur Squamous Epith Cells /LPF Urine Bacteria /LPF Urine Mucus /LPF COVID-19 (JOSR) Positive A (Negative) COVID-19 Clin Com See Note 01/17/22 01/17/22 01/17/22 Range/Units 16:26 18:23 19:48 WBC (4.8-10.8) X10*3/uL RBC (4.60-5.80) X10*6/uL Hgb (14.0-18.0) g/dl Hct (42.0-52.0) % MCV (80.0-98.0) fL MCH (27.0-33.0) pg MCHC (31.0-36.0) g/dl RDW (11.0-16.0) % Plt Count (160-400) X10*3/uL MPV (9.4-12.4) fL Immature Gran % (Auto) (0.0-0.4) % Neut % (Auto) (45-73) % Lymph % (Auto) (20-40) % [place] % (Auto) (2-11) % Eos % (Auto) (0-4) % Baso % (Auto) (0-2) % Lymph # (Auto) (1.2-4.9) X10*3/uL [place] # (Auto) (0.1-1.2) X10*3/uL Eos # (Auto) (0.0-0.4) X10*3/uL Baso # (Auto) (0.0-0.2) X10*3/uL Abs Immat Gran (auto) (0.00-0.03) X10*3/uL Absolute Neuts (auto) (2.0-8.3) x10*3/uL Absolute Nucleated RBC (0.0-0.012) X10*3/uL Nucleated RBC % (auto) (0.0-0.2) /100WBC Smear Tech's Comments Sodium (135-145) mmol/L Potassium (3.3-5.1) mmol/L Chloride (96-108) mmol/L Carbon Dioxide (22-29) mmol/L Anion Gap (12-20) BUN (9-16) mg/dL Creatinine (0.5-1.4) mg/dL Estim Creat Clear Calc Estimated GFR Random Glucose (60-115) mg/dL Lactic Acid (0.5-2.0) mmol/L Calcium (8.4-10.2) mg/dL Magnesium (1.6-2.6) mg/dL Troponin I High Sens 41.3 H 45.4 H (<3.5-35.0) ng/L Urine Color YELLOW Urine Appearance HAZY Urine pH 5.5 (5.0-8.0) Ur Specific [place] 1.020 (1.005-1.025) Urine Protein 1+ H (NEG-TRACE) MG/DL Urine Glucose (UA) 500 H (NEG) MG/DL Urine Ketones 5 (NEG) MG/DL Urine Blood 1+ H (NEG) Urine Nitrite POS H (NEG) Ur Leukocyte Esterase 1+ H (NEG) Urine RBC 0-2 (0) /HPF Urine WBC 10-14 H (0-4) /HPF Ur Squamous Epith Cells 1+ /LPF Urine Bacteria 4+ /LPF Urine Mucus 1+ /LPF COVID-19 (JOSR) (Negative) COVID-19 Clin Com 01/17/22 Range/Units 19:48 WBC (4.8-10.8) X10*3/uL RBC (4.60-5.80) X10*6/uL Hgb (14.0-18.0) g/dl Hct (42.0-52.0) % MCV (80.0-98.0) fL MCH (27.0-33.0) pg MCHC (31.0-36.0) g/dl RDW (11.0-16.0) % Plt Count (160-400) X10*3/uL MPV (9.4-12.4) fL Immature Gran % (Auto) (0.0-0.4) % Neut % (Auto) (45-73) % Lymph % (Auto) (20-40) % [place] % (Auto) (2-11) % Eos % (Auto) (0-4) % Baso % (Auto) (0-2) % Lymph # (Auto) (1.2-4.9) X10*3/uL [place] # (Auto) (0.1-1.2) X10*3/uL Eos # (Auto) (0.0-0.4) X10*3/uL Baso # (Auto) (0.0-0.2) X10*3/uL Abs Immat Gran (auto) (0.00-0.03) X10*3/uL Absolute Neuts (auto) (2.0-8.3) x10*3/uL Absolute Nucleated RBC (0.0-0.012) X10*3/uL Nucleated RBC % (auto) (0.0-0.2) /100WBC Smear Tech's Comments Sodium (135-145) mmol/L Potassium (3.3-5.1) mmol/L Chloride (96-108) mmol/L Carbon Dioxide (22-29) mmol/L Anion Gap (12-20) BUN (9-16) mg/dL Creatinine (0.5-1.4) mg/dL Estim Creat Clear Calc Estimated GFR Random Glucose (60-115) mg/dL Lactic Acid 0.9 (0.5-2.0) mmol/L Calcium (8.4-10.2) mg/dL Magnesium (1.6-2.6) mg/dL Troponin I High Sens (<3.5-35.0) ng/L Urine Color Urine Appearance Urine pH (5.0-8.0) Ur Specific [place] (1.005-1.025) Urine Protein (NEG-TRACE) MG/DL Urine Glucose (UA) (NEG) MG/DL Urine Ketones (NEG) MG/DL Urine Blood (NEG) Urine Nitrite (NEG) Ur Leukocyte Esterase (NEG) Urine RBC (0) /HPF Urine WBC (0-4) /HPF Ur Squamous Epith Cells /LPF Urine Bacteria /LPF Urine Mucus /LPF COVID-19 (JOSR) (Negative) COVID-19 Clin Com <Sabrina Perdomo CNP - Last Filed: 01/17/22 17:59> Lab Results 01/17/22 01/17/22 01/17/22 Range/Units 16:23 16:26 16:26 WBC 7.4 (4.8-10.8) X10*3/uL RBC 4.36 L (4.60-5.80) X10*6/uL Hgb 12.9 L (14.0-18.0) g/dl Hct 38.6 L (42.0-52.0) % MCV 88.5 (80.0-98.0) fL MCH 29.6 (27.0-33.0) pg MCHC 33.4 (31.0-36.0) g/dl RDW 13.6 (11.0-16.0) % Plt Count 189 (160-400) X10*3/uL MPV 9.2 L (9.4-12.4) fL Immature Gran % (Auto) 0.1 (0.0-0.4) % Neut % (Auto) 69.4 (45-73) % Lymph % (Auto) 8.8 L (20-40) % [place] % (Auto) 20.8 H (2-11) % Eos % (Auto) 0.5 (0-4) % Baso % (Auto) 0.4 (0-2) % Lymph # (Auto) 0.7 L (1.2-4.9) X10*3/uL [place] # (Auto) 1.5 H (0.1-1.2) X10*3/uL Eos # (Auto) 0.0 (0.0-0.4) X10*3/uL Baso # (Auto) 0.0 (0.0-0.2) X10*3/uL Abs Immat Gran (auto) 0.01 (0.00-0.03) X10*3/uL Absolute Neuts (auto) 5.1 (2.0-8.3) x10*3/uL Absolute Nucleated RBC 0.000 (0.0-0.012) X10*3/uL Nucleated RBC % (auto) 0.0 (0.0-0.2) /100WBC Smear Tech's Comments VERIFIED Sodium 133 L (135-145) mmol/L Potassium 3.9 (3.3-5.1) mmol/L Chloride 100 (96-108) mmol/L Carbon Dioxide 25 (22-29) mmol/L Anion Gap 12 (12-20) BUN 21 H (9-16) mg/dL Creatinine 2.10 H (0.5-1.4) mg/dL Estim Creat Clear Calc 31.6 Estimated GFR 31 Random Glucose 259 H (60-115) mg/dL Lactic Acid (0.5-2.0) mmol/L Calcium 8.9 (8.4-10.2) mg/dL Magnesium 1.9 (1.6-2.6) mg/dL Troponin I High Sens (<3.5-35.0) ng/L Urine Color Urine Appearance Urine pH (5.0-8.0) Ur Specific [place] (1.005-1.025) Urine Protein (NEG-TRACE) MG/DL Urine Glucose (UA) (NEG) MG/DL Urine Ketones (NEG) MG/DL Urine Blood (NEG) Urine Nitrite (NEG) Ur Leukocyte Esterase (NEG) Urine RBC (0) /HPF Urine WBC (0-4) /HPF Ur Squamous Epith Cells /LPF Urine Bacteria /LPF Urine Mucus /LPF COVID-19 (JOSR) Positive A (Negative) COVID-19 Clin Com See Note 01/17/22 01/17/22 01/17/22 Range/Units 16:26 18:23 19:48 WBC (4.8-10.8) X10*3/uL RBC (4.60-5.80) X10*6/uL Hgb (14.0-18.0) g/dl Hct (42.0-52.0) % MCV (80.0-98.0) fL MCH (27.0-33.0) pg MCHC (31.0-36.0) g/dl RDW (11.0-16.0) % Plt Count (160-400) X10*3/uL MPV (9.4-12.4) fL Immature Gran % (Auto) (0.0-0.4) % Neut % (Auto) (45-73) % Lymph % (Auto) (20-40) % [place] % (Auto) (2-11) % Eos % (Auto) (0-4) % Baso % (Auto) (0-2) % Lymph # (Auto) (1.2-4.9) X10*3/uL [place] # (Auto) (0.1-1.2) X10*3/uL Eos # (Auto) (0.0-0.4) X10*3/uL Baso # (Auto) (0.0-0.2) X10*3/uL Abs Immat Gran (auto) (0.00-0.03) X10*3/uL Absolute Neuts (auto) (2.0-8.3) x10*3/uL Absolute Nucleated RBC (0.0-0.012) X10*3/uL Nucleated RBC % (auto) (0.0-0.2) /100WBC Smear Tech's Comments Sodium (135-145) mmol/L Potassium (3.3-5.1) mmol/L Chloride (96-108) mmol/L Carbon Dioxide (22-29) mmol/L Anion Gap (12-20) BUN (9-16) mg/dL Creatinine (0.5-1.4) mg/dL Estim Creat Clear Calc Estimated GFR Random Glucose (60-115) mg/dL Lactic Acid (0.5-2.0) mmol/L Calcium (8.4-10.2) mg/dL Magnesium (1.6-2.6) mg/dL Troponin I High Sens 41.3 H 45.4 H (<3.5-35.0) ng/L Urine Color YELLOW Urine Appearance HAZY Urine pH 5.5 (5.0-8.0) Ur Specific [place] 1.020 (1.005-1.025) Urine Protein 1+ H (NEG-TRACE) MG/DL Urine Glucose (UA) 500 H (NEG) MG/DL Urine Ketones 5 (NEG) MG/DL Urine Blood 1+ H (NEG) Urine Nitrite POS H (NEG) Ur Leukocyte Esterase 1+ H (NEG) Urine RBC 0-2 (0) /HPF Urine WBC 10-14 H (0-4) /HPF Ur Squamous Epith Cells 1+ /LPF Urine Bacteria 4+ /LPF Urine Mucus 1+ /LPF COVID-19 (JOSR) (Negative) COVID-19 Clin Com 01/17/22 Range/Units 19:48 WBC (4.8-10.8) X10*3/uL RBC (4.60-5.80) X10*6/uL Hgb (14.0-18.0) g/dl Hct (42.0-52.0) % MCV (80.0-98.0) fL MCH (27.0-33.0) pg MCHC (31.0-36.0) g/dl RDW (11.0-16.0) % Plt Count (160-400) X10*3/uL MPV (9.4-12.4) fL Immature Gran % (Auto) (0.0-0.4) % Neut % (Auto) (45-73) % Lymph % (Auto) (20-40) % [place] % (Auto) (2-11) % Eos % (Auto) (0-4) % Baso % (Auto) (0-2) % Lymph # (Auto) (1.2-4.9) X10*3/uL [place] # (Auto) (0.1-1.2) X10*3/uL Eos # (Auto) (0.0-0.4) X10*3/uL Baso # (Auto) (0.0-0.2) X10*3/uL Abs Immat Gran (auto) (0.00-0.03) X10*3/uL Absolute Neuts (auto) (2.0-8.3) x10*3/uL Absolute Nucleated RBC (0.0-0.012) X10*3/uL Nucleated RBC % (auto) (0.0-0.2) /100WBC Smear Tech's Comments Sodium (135-145) mmol/L Potassium (3.3-5.1) mmol/L Chloride (96-108) mmol/L Carbon Dioxide (22-29) mmol/L Anion Gap (12-20) BUN (9-16) mg/dL Creatinine (0.5-1.4) mg/dL Estim Creat Clear Calc Estimated GFR Random Glucose (60-115) mg/dL Lactic Acid 0.9 (0.5-2.0) mmol/L Calcium (8.4-10.2) mg/dL Magnesium (1.6-2.6) mg/dL Troponin I High Sens (<3.5-35.0) ng/L Urine Color Urine Appearance Urine pH (5.0-8.0) Ur Specific [place] (1.005-1.025) Urine Protein (NEG-TRACE) MG/DL Urine Glucose (UA) (NEG) MG/DL Urine Ketones (NEG) MG/DL Urine Blood (NEG) Urine Nitrite (NEG) Ur Leukocyte Esterase (NEG) Urine RBC (0) /HPF Urine WBC (0-4) /HPF Ur Squamous Epith Cells /LPF Urine Bacteria /LPF Urine Mucus /LPF COVID-19 (JOS[facility]) (Negative) COVID-19 Clin Com <Halina Villar NP - Last Filed: 01/22/22 09:26> ECG Data Attestation: I personally reviewed and interpreted this ECG as follows: <Sabrina Perdomo CNP - Last Filed: 01/17/22 17:59> ECG interpretation date: 01/17/22 <Sabrina Almaraz MARY Perdomo - Last Filed: 01/17/22 17:59> ECG interpretation time: 16:38 <Sabrina MeraMARY flores - Last Filed: 01/17/22 17:59> Prior ECG tracings: available for review <Sabrina MeraMARY flores - Last Filed: 01/17/22 17:59> Interpretation: Rate: 70 Rhythm:?Normal sinus rhythm, right bundle branch block [place]:? normal Normal P waves.? Normal WILL.?? ST T wave :? nonspecific T changes, T-wave inversion in III which appears more pronounced than prior, and new appearing T-wave inversion in V3 and V4 qTC: 478 prior studies:? February 2021 The study has been interpreted contemporaneously by me. <Sabrina Almaraz MARY Perdomo - Last Filed: 01/17/22 17:59> Discharge Plan Discharge Clinical Impression: COVID-19, Generalized weakness, Acute UTI <Sabrinajayesh Perdomo CNP - Last Filed: 01/17/22 17:59> Patient Disposition: Home, Self-Care <Sabrina MeraMARY flores - Last Filed: 01/17/22 17:59> Instructions: Covid-19 Viral Syndrome and Novel Coronavirus (ED) Hey/Ath, Urinary Tract Infection in Men (ED), Weakness (ED) <Sabrina MeraMARY flores - Last Filed: 01/17/22 17:59> Additional Instructions: You were evaluated for weakness. Your positive for COVID-19 as well as urinary tract infection. Please follow-up with monoclonal antibodies as scheduled. For urinary tract infection We are treating you with cefuroxime 250 mg every 12 hours for the next 7 days. Please drink plenty of fluids. Follow-up with your primary care physician for repeat urinalysis after completion of your antibiotics. If symptoms persist or worsen please return for further evaluation. Thank you for choosing this emergency department for evaluation. Please follow-up with primary care physician as needed. Return to the emergency department for any new, concerning, or worsening symptoms. <Sabrinajayesh Perdomo CNP - Last Filed: 01/17/22 17:59> Prescriptions: New cefuroxime axetil 250 mg tablet 250 mg PO Q12H 7 Days Qty: 14 0RF doxycycline monohydrate 100 mg capsule 100 mg PO BID Qty: 20 0RF No Action ezetimibe [Zetia] 10 mg tablet 10 mg PO DAILY 90 Days Qty: 90 1RF atorvastatin 80 mg tablet 80 mg PO BEDTIME 30 Days Qty: 30 11RF dorzolamide-timolol 22.3-6.8 mg/mL Drops 1 drp OPHTHALMIC (EYE) BID 0RF hydralazine 50 mg Tablet 50 mg PO BEDTIME Qty: 90 0RF Protocol: Hold for SBP< HOLD for SBP < : 90 Lantus U-100 Insulin 100 unit/mL Solution 10 unit subcut DAILY Qty: 10 0RF insulin lispro [Humalog U-100 Insulin] 100 unit/mL Solution See Protocol unit subcut QIDACHS Qty: 10 0RF Protocol: Insulin Correction Scale Less than or equal to 110 ---- Give (units): 0 111 to 150 Give (units): 0 151 to 200 Give (units): 2 201 to 250 Give (units): 4 251 to 300 Give (units): 6 301 to 350 Give (units): 8 Greater than 350 Give (units): 10 Call MD if Blood Glucose > : 350 albuterol sulfate 90 mcg/actuation Hfa Aerosol Inhaler 2 puff INHALATION Q4H PRN (Reason: Wheezing) 0RF melatonin 5 mg Tablet 5 mg PO BEDTIME 0RF Brilinta 90 mg tablet 90 mg PO BID 0RF escitalopram oxalate 10 mg tablet 20 mg PO DAILY 0RF entecavir 0.5 mg tablet 0.5 mg PO DAILY 0RF metoprolol succinate 100 mg tablet extended release 24 hr 100 mg PO BID 0RF amlodipine 5 mg tablet 10 mg PO DAILY 0RF latanoprost [Xalatan] 0.005 % drops 1 drp ophthalmic (eye) BEDTIME 0RF cholecalciferol (vitamin D3) 50 mcg (2,000 unit) capsule 50 mcg PO DAILY 0RF aspirin 81 mg tablet,delayed release (DR/EC) 81 mg PO DAILY 0RF <Sabrina Perdomo CNP - Last Filed: 01/17/22 17:59> Interventions: ED Discharge Assessment Last Done: 01/17/22 20:41 <Sabrina Perdomo CNP - Last Filed: 01/17/22 17:59> Discharge Date/Time: 01/17/22 20:41 <Sabrina Perdomo CNP - Last Filed: 01/17/22 17:59>
[2022-01-17] MEDS: Acetaminophen 325 MG TABLET 975 MG PO (16:16)
[2022-01-17] MEDS: 0.9 % Sodium Chloride 1,000 ML 999 ML IV (16:19)
[2022-01-17 16:34] LABS: Basophils Percent Auto 0.4 % (0-2); Eosinophils Percent Auto 0.5 % (0-4); Hematocrit 38.6 % (42.0-52.0); Hemoglobin 12.9 g/dl (14.0-18.0); Imm Gran Abs Auto 0.01 X10*3/uL (0.00-0.03); Imm Gran Pct Auto 0.1 % (0.0-0.4); Lymphocytes Absolute Auto 0.7 X10*3/uL (1.2-4.9); Lymphocytes Percent Auto 8.8 % (20-40); MANUAL DIFF FLAG SCAN; Mean Corpuscular HGB Conc 33.4 g/dl (31.0-36.0); Mean Corpuscular Hemoglobin 29.6 pg (27.0-33.0); Mean Corpuscular Volume 88.5 fL (80.0-98.0); Mean Platelet Volume 9.2 fL (9.4-12.4); Monocytes Absolute Auto 1.5 X10*3/uL (0.1-1.2); Monocytes Percent Auto 20.8 % (2-11); Neutrophils Absolute Auto 5.1 x10*3/uL (2.0-8.3); Neutrophils Percent Auto 69.4 % (45-73); Platelet Count 189 X10*3/uL (160-400); Red Blood Count 4.36 X10*6/uL (4.60-5.80); Red Cell Distribution Width 13.6 % (11.0-16.0); SCAN SMEAR FLAG 1; White Blood Count 7.4 X10*3/uL (4.8-10.8)
[2022-01-17 16:36] LABS: COVID-19 Test Positive (Negative)
[2022-01-17 16:48] LABS: Anion Gap 12 (12-20); Blood Urea Nitrogen 21 mg/dL (9-16); Calcium 8.9 mg/dL (8.4-10.2); Carbon Dioxide 25 mmol/L (22-29); Chloride 100 mmol/L (96-108); Creatinine Clr Calc Pharmacy 31.6; Estimated Glomerular Filt Rate 31; Glucose Random 259 mg/dL (60-115); Magnesium 1.9 mg/dL (1.6-2.6); Potassium 3.9 mmol/L (3.3-5.1); Sodium 133 mmol/L (135-145)
[2022-01-17 16:53] LABS: Troponin-I High Sensitivity 41.3 ng/L (<3.5-35.0)
[2022-01-17 17:05] LABS: SLIDE REVIEW VERIFIED
[2022-01-17 17:16] VITALS: BP 169/70; PULSE 68; RESP 16; TEMP 37.2; O2SAT 97
--- NOTE | 2022-01-17 17:29 | PC.NURSE ---
Pt comes in via EMS from home with c/o weakness which began earlier today. Pt took COVID test at home this morning, PMHX of stroke, pt is worried with his weakness. IV established, tylenol given for low grade fever, labs sent, plan for CT scan. Call archuleta within reach. Will continue to monitor.
[2022-01-17 18:20] VITALS: BP 164/65; PULSE 64; RESP 18; O2SAT 97
[2022-01-17 18:34] LABS: Appearance Urine HAZY; Color Urine YELLOW; Glucose Urine UA 500 MG/DL (NEG); Leukocyte Esterase Urine 1+ (NEG); Nitrite Urine POS (NEG); PH 5.5 (5.0-8.0); UACC Culture Trigger YES; Urine Blood 1+ (NEG); Urine Ketones 5 MG/DL (NEG); Urine Protein 1+ MG/DL (NEG-TRACE)
[2022-01-17 18:41] LABS: Bacteria Urine 4+ /LPF; Mucus Urine 1+ /LPF; RBC Urine 0-2 /HPF (0); Squamous Epithelial Cell Urine 1+ /LPF
[2022-01-17 20:08] LABS: Lactic Acid 0.9 mmol/L (0.5-2.0)
[2022-01-17] MEDS: cefTRIAXone sodium 1 GM in 0.9 % Sodium Chloride 50 ML IV (20:13)
[2022-01-17 20:16] LABS: Troponin-I High Sensitivity 45.4 ng/L (<3.5-35.0)
[2022-01-17 20:21] VITALS: BP 151/66; PULSE 62; RESP 16; TEMP 36.7; O2SAT 97
== END 2022-01-17 20:41 | disposition home or self-care (01) ==
PROVIDERS: Nurse Practitioner Family; Emergency Provider Emergency Medicine; PCP Family Medicine
DX: U07.1 COVID-19 (principal); R53.1 Weakness; N39.0 Urinary tract infection, site not specified; R29.702 NIHSS score 2; E10.22 Type 1 diabetes mellitus with diabetic chronic kidney disease; I12.9 Hypertensive chronic kidney disease with stage 1 through stage 4 chronic kidney disease, or unspecified chronic kidney disease; N18.30 Chronic kidney disease, stage 3 unspecified; E78.5 Hyperlipidemia, unspecified; Z86.73 Personal history of transient ischemic attack (TIA), and cerebral infarction without residual deficits; Z79.82 Long term (current) use of aspirin; Z79.4 Long term (current) use of insulin; Z79.02 Long term (current) use of antithrombotics/antiplatelets
CPT/HCPCS: 36415; 70450; 71046; 80048; 81001; 83605; 83735; 84484; 85025; 87040; 87086; 87088; 87186; 87635; 93005; 96361; 96365; 99284; 99285; J0696

== ENCOUNTER → 2022-02-21 16:12 | Outpatient (RCR) | payer MEDICARE, BC, SELFPAY ==
--- NOTE | 2021-03-01 13:25 | MHC.SP.ADU ---
Referring provider: Leticia Grant PA-C Reason for Referral: CVA Type of Treatment: 43234 Evaluation Speech Sound Production WITH Language Date of Plan of Treatment: 02/15/21 Onset of Symptoms/Illness: 01/12/21 Date Treatment Started: 01/21/21 Medical Diagnosis: Stroke Primary Speech Language Diagnosis: Secondary Speech Language Diagnosis: History Phan Gipson is a 70 year old male who was referred to [facility] Speech & Hearing Department by Leticia Boswell PA-C from [facility] due to concerns for residual effects of recent CVA. Background information was gathered through chart review, discharge summary from [facility], and patient. On 01/12/21, Mr. Gipson presented [place] [facility] [place] with paralysis of his left upper extremity. 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 MRI showed multiple new infarcts. Patient was subsequently transferred to [facility] to undergo redo right CEA on January 15. Patient was discharged from [facility] to [facility] on 01/21 for acute rehab program. Phan received OT, PT, and speech therapy while at [facility]. Patients speech is comprehensible and clear. Patient continues to have unilateral weakness from CVA. Mr. Gipson currently receives OT and PT at [facility]. No other significant background information was provided. Medical History: Cancer: other Cardiovascular Disease Diabetes Stroke Other: AAA, Chronic Hepatitis B, CAD, CVA, HLD, HTN, s/p placement of implantable loop recorder, TIA, T1DM, Vitamin D deficiency, diverticulosis, pituitary adenoma Medication List: Please see in pt chart. Recent Hospitalizations: Yes: 01/12/21 CVA Respiratory Needs: Room Air Patient Orientation: Alert & Oriented x 4 Social History: Employment Status: Retired Highest level of education obtained: Completed Bachelor's Past Speech Language Therapy: Patient was working with a speech pathologist while at [facility] for two weeks. Pt reported working on left neglect. Other Therapies Seen in Current Calendar Year: Occupational Therapy Physical Therapy Speech Therapy Other: Patient received speech, occupational, and physical therapy while at [facility]. He is now receiving occupational and physical therapy in the outpatient setting to improve deficits from stroke. Swallowing History: Dysphagia Specific: Within Functional Limits Comments: Pt was evaluated while at [facility] and no swallowing difficulties were present at that time. Pt did not report dysphagia at time of this evaluation. Pre-eval Risk for Aspiration: Pre-evaluation Dietary Consistencies: Regular Pre-eval Liquid Intake: Thin Pre-eval Medication Intake: Whole with Liquid Reported Speech, Language, Cognition difficulties: Not Applicable Comments: Patient does not feel there are residual speech and language deficits that are affecting his life at this time. Assessment Speech Production: Within Functional Limits Clinical Impression: Intact Observations: Informal Voice Assessment: Voice Loudness: Normal Voice Nasal Resonance: Normal Voice Oral Resonance: Normal Voice Phonatory-based Quality: Normal Voice Pitch: Normal Voice Other Observations: Clinical Impression: Intact Clinicial Observations: Subjectively judged by unfamiliar yet trained listener as WFL. Tests of Speech & Lang Adults: BDAE BNT Clinical Impression: Intact Observations: The short form of the [place] Diagnostic Aphasia Examination, 3rd edition, (BDAE) was administered. This standardized assessment is utilized to diagnose aphasia and related language disorders. This evaluation assesses conversational and expository speech, auditory comprehension, oral expression, reading, and writing. The short form 15 items [place] Naming Test, 2nd edition (BNT) was also administered. This assessment evaluates confrontational word retrieval ability in adults with aphasia or other language disorders. Phan achieved an overall aphasia severity rating of 5 out of 5. Per the BDAE, the description for a rating of 5 is as follows: Minimal discernible speech handicap; the patient may have subjective difficulties that are not obvious to the listener . Phan was able to fluently answer basic questions i.e. How are you today , What is your full address? , When are you going to be leaving here? . FLUENCY Phan?s scores for fluency, based upon evaluation of free conversation and picture description using the ?Cookie Theft? picture are as follows: Phrase length: 7 out of 7, 100th percentile Melodic Line: 7 out of 7, 100th percentile Grammatical form: 7 out of 7, 50th percentile Phan achieved 7 out of 7, 100th percentile for conversational/expository speech, which assesses a pt?s ability to respond to simple, social greetings and questions. AUDITORY COMPREHENSION: Phan's scores in the area of auditory comprehension are as follows: Basic word discrimination: 16 out of 16, 100th percentile Following commands: 10 out of 10, 100th percentile Comprehension of complex ideational material: 6 out of 6, 100th percentile ARTICULATION Utilizing the articulatory agility rating scale, for which a score of 1 indicates a patient is unable to form speech sound, a score of 4 indicates a patient?s articulation is sometimes clumsy and effortful, and a score of 7 indicates speech that is never impaired, Phan achieved a score of 7. RECITATION Phan achieved a score of 4 out of 4, 100th percentile, when completing automatized verbal sequences such as counting and reciting the days of the week. REPETITION Phan achieved a score of 5 out of 5 during a word repetition task and a score of 2 out of 2 with a sentence repetition task. NAMING Phan achieved a score of 10 out of 10 during a responsive naming task i.e., What do we tell time with? , What do you do with a razor? He achieved a score of 15/15 on the short form of the [place] Naming Test during which he was asked to name 15 black and white drawings of objects of increasing complexity. READING Phan achieved the 100th percentile with matching cases and scripts, number matching, oral word reading, oral sentence reading and comprehension, and sentence/paragraph comprehension. WRITING Phan achieved a score of 14 out of 14 (100th percentile) with letter formation, 21 out of 21 (100th percentile) with letter choice, 14 out of 14 (100th percentile) for motor facility, 14 out of 4 (100th percentile) for written picture naming and 9 out of 11 (80th percentile) during a narrative writing task. He achieved 100th percentiles during writing of primer words, regular phonics, and common irregular words. Phan was asked to write a description of a picture scene. The following is what Phan wrote: ?kids cookies - stool tipping - sink overflowing - mom - woman doing dishes Phan was prompted with additional questions to expand his thoughts, however he would verbalize his responses despite instruction to write them down. He edited some of his written responses to include more information however, continued to write in bullet format. Tests of Cognition: Clinical Impression: Intact Observations: Phan was evaluated using the [place] Cognitive Assessment (MoCA). The MoCA was designed as a rapid screening instrument for mild cognitive dysfunction. It assesses different cognitive domains: attention and concentration, executive functions, memory, language, visuoconstructional skills, conceptual thinking, calculations, and orientation. The total possible score is 30 points; a score of 26 or above is considered normal. Phan achieved a score of 28/30, indicating normal range of cognitive functioning. In addition to the MoCA, Phan was administered visuospatial subtests of the CLQT. The entire CLQT was unable to be administered due to time constraints. Mr. Gipson was administered the symbol cancellation and clock drawing subtests, as he came in with concerns of left neglect. Phan correctly crossed out all 12 target symbols in the one minute provided. During the clock drawing task, Phan achieved a score of 12/13. He lost a single point for drawing both clock hands the same length. Based on the information gathered from these two subtests, it appears that Julios visuospatial skills are functional. Augmentative and Alternative Communication: Observations: Impressions and Recommendations Summary: In summary, Phan Gipson presents with speech/language cognitive skills deemed WFL based on the results of this comprehensive evaluation. Impact on Daily Function/Activity Limitations: Daily Activities: None Interpersonal Interactions: None Education: Employment: Community: None Prognosis for Improvement: Good Comment: Recommendation for Speech Therapy: NA:Typical Evaluation Frequency/Duration: Date Range for Service Requested: Time to Reassess: Supervisor Detasseling Crew Goals: Speech and language therapy in the outpatient setting is not recommended, as pt scored within the average range of functioning on all assessments. Patient Education: Completed: Yes Patient/Caregiver Education: Described Results of Evaluation Patient expressed understanding of evaluation Comments/Barriers to Learning: Lumber Estimator Clinican/Clinical Fellow: Yes: Sharona Garcia M.A., CF-PLATE WORKER Supervisory Statement: Yes Speech Language Pathologist: Yocasta Davidson M.A., CCC-PLATE WORKER
== END | disposition home or self-care (01) ==
LOC: HO.SH 02-15 09:00
PROVIDERS: PCP Internal Medicine; Visit Provider Physician Assistant Medical
DX: I63.9 Cerebral infarction, unspecified (principal)
CPT/HCPCS: 92523

== ENCOUNTER → 2022-02-28 08:43 | Outpatient (BNVA) | payer MEDICARE, BC, SELFPAY | PROVIDERS: PCP Family Medicine; Visit Provider Internal Medicine | DX: E10.65 Type 1 diabetes mellitus with hyperglycemia (principal); E78.5 Hyperlipidemia, unspecified; I10 Essential (primary) hypertension; D35.2 Benign neoplasm of pituitary gland | CPT/HCPCS: Q3014 ==

== ENCOUNTER 2022-03-10 09:32 | Outpatient (REF) | payer MEDICARE, BC, SELFPAY ==
[2022-03-10 10:27] LABS: MANUAL DIFF FLAG NO
[2022-03-10 10:42] LABS: Basophils Absolute Auto 0.1 X10*3/uL (0.0-0.2); Basophils Percent Auto 0.7 % (0-2); Eosinophils Absolute Auto 0.2 X10*3/uL (0.0-0.4); Eosinophils Percent Auto 3.3 % (0-4); Hematocrit 43.8 % (42.0-52.0); Imm Gran Abs Auto 0.03 X10*3/uL (0.00-0.03); Imm Gran Pct Auto 0.4 % (0.0-0.4); Lymphocytes Absolute Auto 1.2 X10*3/uL (1.2-4.9); Lymphocytes Percent Auto 16.9 % (20-40); Mean Corpuscular Hemoglobin 29.4 pg (27.0-33.0); Mean Corpuscular Volume 91.8 fL (80.0-98.0); Monocytes Absolute Auto 0.7 X10*3/uL (0.1-1.2); Monocytes Percent Auto 8.9 % (2-11); Neutrophils Absolute Auto 5.1 x10*3/uL (2.0-8.3); Neutrophils Percent Auto 69.8 % (45-73); Platelet Count 243 X10*3/uL (160-400); Red Blood Count 4.77 X10*6/uL (4.60-5.80); Red Cell Distribution Width 14.4 % (11.0-16.0); White Blood Count 7.3 X10*3/uL (4.8-10.8)
[2022-03-10 10:48] LABS: INTERNATIONAL NORM RATIO 0.9 (0.9-1.1); Prothrombin Time 10.4 SEC (9.9-13.0)
[2022-03-10 10:51] LABS: Partial Thromboplastin Time 38.1 SEC (24.1-38.0)
[2022-03-10 11:07] LABS: Alanine Aminotransferase 19 U/L (0-40); Aspartate Amino Transferase 18 U/L (5-37); Bilirubin Total 0.6 mg/dL (0.0-1.0)
[2022-03-10 11:11] LABS: Albumin Level 4.6 g/dL (3.5-5.0); Anion Gap 13 (12-20); Blood Urea Nitrogen 26 mg/dL (9-16); Calcium 10.1 mg/dL (8.4-10.2); Carbon Dioxide 29 mmol/L (22-29); Chloride 103 mmol/L (96-108); Estimated Glomerular Filt Rate 32; Magnesium 2.3 mg/dL (1.6-2.6); Phosphorus 4.4 mg/dL (2.7-4.5); Potassium 4.6 mmol/L (3.3-5.1); Sodium 140 mmol/L (135-145)
[2022-03-10 11:26] LABS: HIV AB/AG Nonreactive (Nonreactive); HIV Num 1 0.06 S/CO (0.00-0.99)
[2022-03-10 11:34] LABS: Vitamin D 25-OH Total 40.4 ng/mL (>30)
[2022-03-10 12:40] LABS: Appearance Urine CLEAR; Color Urine YELLOW; Glucose Urine UA NEG (NEG); Leukocyte Esterase Urine NEG (NEG); Nitrite Urine NEG (NEG); PH 6.5 (5.0-8.0); Specific Gravity - Urine 1.015 (1.005-1.025); Urine Blood NEG (NEG); Urine Ketones NEG (NEG); Urine Protein 1+ MG/DL (NEG-TRACE)
[2022-03-10 13:59] LABS: Mucus Urine TRACE /LPF; RBC Urine 0 /HPF (0); Squamous Epithelial Cell Urine 1+ /LPF; WBC Urine 0 /HPF (0-4)
[2022-03-10 14:21] LABS: Creatinine Urine 114.73 mg/dL; Microalbum/Creatinine Ratio Ur 77.5 ug/mg cr; Protein/Creatinine Ratio, Ur 0.37 (<0.2); Total Protein Urine Random 43 mg/dL (<12)
[2022-03-12 09:47] LABS: Calcium (PTHI) 10.1 mg/dL (8.6-10.3); PTHI 51 pg/mL (16-77)
[2022-03-15 15:13] LABS: Hepatitis B Viral DNA Qn - cp <1.00 NOT DETECTED Log IU/mL (NOT DETECTED); Hepatitis B Viral DNA Qn-IU/mL <10 NOT DETECTED IU/mL (NOT DETECTED)
== END 2022-03-10 09:33 | disposition home or self-care (01) ==
LOC: HO.LAB 09:32
PROVIDERS: Internal Medicine Infectious Disease; Internal Medicine Nephrology; PCP Family Medicine; Referring Provider Internal Medicine Cardiovascular Disease; Visit Provider Internal Medicine
DX: Z11.4 Encounter for screening for human immunodeficiency virus [HIV] (principal); N18.32 Chronic kidney disease, stage 3b; N25.0 Renal osteodystrophy; B18.1 Chronic viral hepatitis B without delta-agent
CPT/HCPCS: 36415; 80051; 81001; 81003; 82040; 82043; 82247; 82306; 82310; 82565; 83735; 83970; 84100; 84156; 84450; 84460; 84520; 85025; 85610; 85730; 87086; 87389; 87517

== ENCOUNTER → 2022-03-24 09:43 | Outpatient (BNVA) | payer MEDICARE, BC, SELFPAY | PROVIDERS: PCP Family Medicine; Visit Provider Registered Nurse Diabetes Educator | DX: E10.65 Type 1 diabetes mellitus with hyperglycemia (principal) | CPT/HCPCS: 99211 ==

== ENCOUNTER 2022-04-15 10:26 | Outpatient (REF) | payer MEDICARE, BC, SELFPAY ==
[2022-04-15 11:16] LABS: Estimated Average Glucose 197 mg/dL; Hemoglobin A1c % 8.5 %
[2022-04-15 11:34] LABS: Alanine Aminotransferase 18 U/L (0-40); Albumin Level 4.4 g/dL (3.5-5.0); Alkaline Phosphatase 83 U/L (39-117); Anion Gap 14 (12-20); Aspartate Amino Transferase 18 U/L (5-37); Bilirubin Total 0.5 mg/dL (0.0-1.0); Blood Urea Nitrogen 26 mg/dL (9-16); Calcium 9.3 mg/dL (8.4-10.2); Carbon Dioxide 26 mmol/L (22-29); Chloride 102 mmol/L (96-108); Cholesterol 108 mg/dL; Estimated Glomerular Filt Rate 31; Glucose Random 297 mg/dL (60-115); HDL Cholesterol 29 mg/dL; LDL Cholesterol Calculated 57 mg/dl; Potassium 4.7 mmol/L (3.3-5.1); Sodium 137 mmol/L (135-145); Total Protein 7.5 g/dL (6.5-8.0); Triglycerides 113 mg/dL
[2022-04-15 11:43] LABS: Osmolality, Serum 304 mosm/kg (281-305)
[2022-04-15 11:51] LABS: Free T4 (Free Thyroxine) 0.87 ng/dL (0.71-1.85); Vitamin D 25-OH Total 40.5 ng/mL (>30)
[2022-04-15 11:59] LABS: Thyroid Stimulating Hormone 1.59 uIU/mL (0.32-4.0)
[2022-04-15 12:13] LABS: Cortisol Random 16.4 ug/dL
[2022-04-15 14:20] LABS: Creatinine Urine 69.64 mg/dL; Microalbum/Creatinine Ratio Ur 73.2 ug/mg cr
[2022-04-16 18:16] LABS: Sex Hormone Binding Globulin 41 nmol/L (22-77)
[2022-04-16 19:02] LABS: LDL Cholesterol Direct 55 mg/dL (<100)
[2022-04-17 01:32] LABS: Triiodothyronine T3 Total 122 ng/dL (76-181)
[2022-04-19 20:37] LABS: Follicle Stimulating Hormone 8.6 mIU/mL (1.6-8.0); Lutenizing Hormone 7.9 mIU/mL (1.6-15.2); Prolactin Undiluted 5.7 ng/mL (2.0-18.0)
[2022-04-21 10:57] LABS: IGF-1 (Somatomedin C) 101 ng/mL (34-245); IGF-1 Z Score (Male) -0.1 SD (-2.0 - +2.0)
[2022-04-21 21:21] LABS: Testosterone, Free 48.1 pg/mL (30.0-135.0); Testosterone, Total 388 ng/dL (250-1100)
== END 2022-04-15 10:27 | disposition home or self-care (01) ==
LOC: HO.10HDL 10:26
PROVIDERS: Absent Provider Internal Medicine Cardiovascular Disease; Visit Provider Internal Medicine
DX: I25.10 Atherosclerotic heart disease of native coronary artery without angina pectoris (principal); E78.5 Hyperlipidemia, unspecified; E10.65 Type 1 diabetes mellitus with hyperglycemia; D35.2 Benign neoplasm of pituitary gland; E55.9 Vitamin D deficiency, unspecified
CPT/HCPCS: 36415; 80053; 80061; 82043; 82306; 82533; 83001; 83002; 83036; 83721; 83930; 84146; 84270; 84305; 84402; 84403; 84439; 84443; 84480; 86141

== ENCOUNTER 2022-04-22 07:13 | Outpatient (REF) | payer MEDICARE, BC, SELFPAY ==
[2022-04-22 08:16] LABS: Cholesterol 96 mg/dL; HDL Cholesterol 26 mg/dL; LDL Cholesterol Calculated 48 mg/dl; Triglycerides 113 mg/dL
[2022-04-26 21:11] LABS: Adrenocorticotropic Hormone 34 pg/mL (6-50)
== END 2022-04-22 07:14 | disposition home or self-care (01) ==
LOC: HO.LAB 07:13
PROVIDERS: PCP Family Medicine; Visit Provider Internal Medicine
DX: E10.65 Type 1 diabetes mellitus with hyperglycemia (principal); D35.2 Benign neoplasm of pituitary gland
CPT/HCPCS: 36415; 80061; 82024; 99211

== ENCOUNTER → 2022-05-30 10:46 | Outpatient (BNVA) | payer MEDICARE, BC, SELFPAY | PROVIDERS: PCP Family Medicine; Visit Provider Internal Medicine | DX: E10.65 Type 1 diabetes mellitus with hyperglycemia (principal); E78.5 Hyperlipidemia, unspecified; D35.2 Benign neoplasm of pituitary gland; I10 Essential (primary) hypertension | CPT/HCPCS: 82947; 99212 ==

== ENCOUNTER 2022-06-09 13:49 | Outpatient (REF) | payer MEDICARE, BC, SELFPAY ==
--- NOTE | ~2022-06-09 | MR_ITS ---
EXAMINATION: MR BRAIN WITHOUT CONTRAST CLINICAL INFORMATION: Benign neoplasm of the pituitary gland. COMPARISON: CT head from 01/17/2022. Brain MRI from 01/14/2021. TECHNIQUE: MRI of the brain was obtained using pituitary protocol without contrast. FINDINGS: No focal restricted diffusion is demonstrated to suggest acute or subacute cerebral ischemia. Region of chronic encephalomalacia within the right frontoparietal lobes with associated wallerian degeneration of the right midbrain/juan c. Smaller chronic region of encephalomalacia in the lateral aspect of the right temporal lobe. Chronic lacunar infarcts of the bilateral thalami and right lentiform/caudate nuclei. Scattered and partially confluent periventricular, deep white matter, and brainstem T2 FLAIR hyperintensities consistent with underlying microangiopathy. Proportional prominence of the ventricles and sulcal spaces without evidence of obstructive hydrocephalus. No abnormal mass effect. No midline shift. Normal positioning of the cerebellar tonsils. Normal arterial and venous vascular flow voids are present. Compared to exam from 2020, there is stable appearance of a lesion centered in the left aspect of the sella turcica with surrounding osseous remodeling, measuring up to 1.8 x 1.4 x 1.6 cm. Similar to prior exam, this lesion demonstrates inherent T1 hyperintensity and heterogeneous T2 hyperintensity. Similar extension into the left cavernous sinus with partial encasement of the cavernous and paraophthalmic segments of the left ICA. The suprasellar cistern remains widely patent. The pituitary infundibulum is mildly deviated to the right. Normal, homogeneous marrow signal. 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 Moderate degenerative spondyloarthropathy of the visualized upper cervical spine. Mild mucosal thickening of the paranasal sinuses. No signal abnormalities within the mastoids. MR/MR head/brain wo con IMPRESSION: Stable appearance of a 1.8 cm lesion centered in the left aspect of the sella turcica with osseous remodeling. Chronic region of encephalomalacia within the right frontoparietal lobes. Chronic lacunar infarcts of the deep nuclei. Moderate to extensive underlying microangiopathy.
== END 2022-06-09 13:50 | disposition home or self-care (01) ==
LOC: HO.MRI 13:49
PROVIDERS: Visit Provider Internal Medicine
DX: D35.2 Benign neoplasm of pituitary gland (principal)
CPT/HCPCS: 70551

== ENCOUNTER 2022-06-14 12:21 | Outpatient (REF) | payer MEDICARE, BC, SELFPAY ==
--- NOTE | ~2022-06-14 | US_ITS ---
EXAMINATION: ANKLE-BRACHIAL INDICES SINGLE LEVEL PULSE VOLUME RECORDING ARTERIAL DUPLEX BILATERAL LEGS CLINICAL INFORMATION: Peripheral arterial disease. COMPARISON: 12/27/2018 TECHNIQUE: Ankle-brachial indices and PVR at the ankle were obtained. Duplex Doppler of the bilateral lower extremity arterial systems was performed. FINDINGS: RIGHT: Ankle-brachial index: 0.93 PVR: Mildly abnormal Common femoral: PSV blank cm/s. Biphasic waveform. Deep femoral: PSV 115 cm/s. Biphasic waveform. Proximal superficial femoral: PSV 126 cm/s. Triphasic waveform. Mid superficial femoral: PSV 152 cm/s. Triphasic waveform. Distal superficial femoral: PSV 81 cm/s. Triphasic waveform. Popliteal: PSV 126 cm/s. Biphasic waveform. Posterior tibial: PSV 88 cm/s. Biphasic waveform. Peroneal: PSV 49 cm/s. Biphasic waveform. LEFT: Ankle-brachial index: 0.72 PVR: Mildly abnormal Common femoral: PSV 131 cm/s. Biphasic waveform. Deep femoral: PSV 115 cm/s. Monophasic waveform. Proximal superficial femoral: PSV 72 cm/s. Biphasic waveform. Mid superficial femoral: PSV 267 cm/s. Biphasic waveform. Distal superficial femoral: PSV 82 cm/s. Monophasic waveform. Popliteal: PSV 55 cm/s. Monophasic waveform. Posterior tibial: PSV 65 cm/s. Biphasic waveform. Peroneal: PSV 21 cm/s. Biphasic waveform. US/US arterial duplex LE BI IMPRESSION: Mild peripheral arterial disease (RANDI 0.93) on the right without focal hemodynamically significant stenosis. The RANDI previously 12/27/2018 was 1.15. Mild to moderate peripheral arterial disease (RANDI of 0.72) on the left with a focal hemodynamically significant stenosis in the mid to distal superficial femoral artery. The RANDI previously 12/27/2018 was 0.73.
--- NOTE | ~2022-06-14 | US_ITS ---
EXAMINATION: ANKLE-BRACHIAL INDICES SINGLE LEVEL PULSE VOLUME RECORDING ARTERIAL DUPLEX BILATERAL LEGS CLINICAL INFORMATION: Peripheral arterial disease. COMPARISON: 12/27/2018 TECHNIQUE: Ankle-brachial indices and PVR at the ankle were obtained. Duplex Doppler of the bilateral lower extremity arterial systems was performed. FINDINGS: RIGHT: Ankle-brachial index: 0.93 PVR: Mildly abnormal Common femoral: PSV blank cm/s. Biphasic waveform. Deep femoral: PSV 115 cm/s. Biphasic waveform. Proximal superficial femoral: PSV 126 cm/s. Triphasic waveform. Mid superficial femoral: PSV 152 cm/s. Triphasic waveform. Distal superficial femoral: PSV 81 cm/s. Triphasic waveform. Popliteal: PSV 126 cm/s. Biphasic waveform. Posterior tibial: PSV 88 cm/s. Biphasic waveform. Peroneal: PSV 49 cm/s. Biphasic waveform. LEFT: Ankle-brachial index: 0.72 PVR: Mildly abnormal Common femoral: PSV 131 cm/s. Biphasic waveform. Deep femoral: PSV 115 cm/s. Monophasic waveform. Proximal superficial femoral: PSV 72 cm/s. Biphasic waveform. Mid superficial femoral: PSV 267 cm/s. Biphasic waveform. Distal superficial femoral: PSV 82 cm/s. Monophasic waveform. Popliteal: PSV 55 cm/s. Monophasic waveform. Posterior tibial: PSV 65 cm/s. Biphasic waveform. Peroneal: PSV 21 cm/s. Biphasic waveform. US/US RANDI complete IMPRESSION: Mild peripheral arterial disease (RANDI 0.93) on the right without focal hemodynamically significant stenosis. The RANDI previously 12/27/2018 was 1.15. Mild to moderate peripheral arterial disease (RANDI of 0.72) on the left with a focal hemodynamically significant stenosis in the mid to distal superficial femoral artery. The RANDI previously 12/27/2018 was 0.73.
== END 2022-06-14 12:22 | disposition home or self-care (01) ==
LOC: HO.US 12:21
PROVIDERS: Visit Provider Surgery
DX: I73.9 Peripheral vascular disease, unspecified (principal)
CPT/HCPCS: 93923; 93925

== ENCOUNTER → 2022-06-23 09:55 | Outpatient (BNVA) | payer MEDICARE, BC, SELFPAY | PROVIDERS: PCP Family Medicine; Visit Provider Registered Nurse Diabetes Educator | DX: E10.65 Type 1 diabetes mellitus with hyperglycemia (principal); Z79.4 Long term (current) use of insulin | CPT/HCPCS: 99211 ==

== ENCOUNTER → 2022-06-24 10:12 | Outpatient (REF) | payer MEDICARE, BC, SELFPAY ==
--- NOTE | 2022-06-24 10:15 | CA_ITS ---
Transthoracic Echocardiogram Patient (Last, First, Middle): Phan Gipson, Gender: Male Date of : 1950 Age: 71 Procedure Date: 06/24/2022 Procedure Type: Transthoracic Echocardiogram Location: OP Height: 172.72 cm Weight: 68.95 kg BSA: 1.82 m2 Heart Rate: 57 bpm BP: 126 / 76 mmHg Free Lance Model: YANA Referring MD: Emmanuel Valdez MD Aromatherapist: Emmanuel Valdez MD Symptoms: I25.10 - Atherosclerotic heart disease of [place] coronary... Study Quality: Adequate ECG Rhythm: Sinus Conclusions: - 1. Normal LV systolic function with mild LVH with impaired relaxation filling pattern 2. Normal cardiac valvular Doppler next 3. No gross pericardial effusion Findings Left Ventricle Normal left ventricular size and systolic function. There is mildly increased left ventricular wall thickness. The visually estimated ejection fraction is between 65-70%. Spectral Doppler is indicative of an impaired relaxation filling pattern. Elevated left ventricular end diastolic pressure. Peak GLS is -11.1%, which is significantly reduced. Right Ventricle Normal right ventricular cavity size and systolic function. Atria The left atrium is likely dilated. Interatrial shunt cannot be excluded. The right atrium is normal in size. Aortic Valve There is mild calcification of the aortic valve. There is no aortic valve stenosis. There is no aortic valve regurgitation. Mitral Valve There is mild anterior and posterior mitral leaflet thickening. There is mild mitral annular calcification. There is trace mitral valve regurgitation. There is no mitral valve stenosis. Pulmonic Valve The pulmonic valve was not well visualized. Tricuspid Valve Likely normal tricuspid valve structure and function. Tricuspid regurgitation envelope is inadequate for calculation of right ventricular systolic pressure. Normal right atrial pressure. Great Vessels All visible segments of the aorta are normal in size. The pulmonary artery was not well visualized. Venous The inferior vena cava is normal in size and collapses greater than 50% with inspiration. Pericardium/Pleural There is no evidence of pericardial effusion. Prior Study Comparison No significant change compared to prior study dated: 03/23/2021. Measurements 2D Linear Measurements IVSd: 1.24 0.6-0.9/0.6-1.0 cm LVIDd: 4.74 3.9-5.3/4.2-5.9 cm LVIDd Index: 2.60 2.4-3.2/2.2-3.1 cm/m2 LVIDs: 2.86 2.0-3.6 cm LVPWd: 1.09 0.7-1.1 cm LA Diam: 3.70 2.7-3.8/3.0-4.0 cm LAIDs Index: 2.03 1.5-2.3 cm/m2 LV Mass: 256.77 67-162/88-224 g LV Mass Index: 141.08 43-95/49-115 g/m2 LVOT Diam: 2.10 3.0+(-)1.3 cm 2D Systolic Function EF 4C: 70.70 >55% EF 2C: 55.90 >55% EF BiP: 66.70 >55% Mitral Valve MV Pk E: 0.84 MV PK A: 0.91 MV Decel Time: 261.00 E/A: 0.90 E'Lateral: 3.92 E'Medial: 4.03 E/E' Med: 20.80 E/E' Lat: 21.40 PHT: 76.00 MVA PHT: 2.89 Decel [place]: 3.22 Aortic Valve AoV Pk Benjamin: 1.27 AoV Mn Benjamin: 0.86 AoV VTI: 0.30 AoV Pk Grad: 6.00 Aov Mn Grad: 4.00 MARY Cont.VTI: 2.60 LVOT LVOT Pk Benjamin: 0.90 LVOT Mn Benjamin: 0.62 LVOT VTI: 0.23 LVOT Pk Grad: 3.00 LVOT Mn Grad: 2.00 LVOT Diam: 2.10 LVOT Area: 3.46 Diastolic Function MV Pk E: 0.84 MV Pk A: 0.91 E/A: 0.90 E'Medial: 4.03 E/E' Med: 20.80 E' Laterial: 3.92 E/E' Lat: 21.40 Right Ventricle TAPSE (mm): 22.30 TVS' Benjamin: 9.68 Tricuspid Valve RA Press: 3.00 Great Vessels Aorta Sinus of Valsalva: 3.30 2.0-3.5 cm Ao Asc: 3.20 2.1-3.4 cm Pulmonary Veins Pulm Vein S/D 0.90 Pulmonary Valve PV Pk Benjamin: 0.95 Peak PV Grad: 4.00 Updated in Other Vendor System with Status of Final Emmanuel Valdez MD electronically signed on 06/27/2022 11:16:21 AM with status of Final
== END ==
LOC: HO.CARD 10:12
PROVIDERS: Visit Provider Internal Medicine Cardiovascular Disease
DX: I25.10 Atherosclerotic heart disease of native coronary artery without angina pectoris (principal)
CPT/HCPCS: 93306; 93356

== ENCOUNTER → 2022-07-12 09:35 | Outpatient (BNVA) | payer MEDICARE, BC, SELFPAY | PROVIDERS: PCP Family Medicine; Referring Provider Family Medicine; Visit Provider Internal Medicine Cardiovascular Disease | DX: Z45.09 Encounter for adjustment and management of other cardiac device (principal); I25.10 Atherosclerotic heart disease of native coronary artery without angina pectoris; I95.1 Orthostatic hypotension | CPT/HCPCS: 99212 ==

== ENCOUNTER 2022-07-15 11:55 | Outpatient (REF) | payer MEDICARE, BC, SELFPAY ==
--- NOTE | ~2022-07-15 | US_ITS ---
EXAMINATION: US ABDOMEN COMPLETE CLINICAL INFORMATION: HBV. HCC screen. COMPARISON: Ultrasound abdomen complete 12/14/2021. Renal ultrasound with Doppler 03/11/2021, CT abdomen and pelvis 03/27/2017. TECHNIQUE: Real-time imaging of the abdominal viscera. FINDINGS: PANCREAS: Not well visualized. ABDOMINAL AORTA: There is evidence of atherosclerotic disease. The distal abdominal aorta is dilated measuring 3.3 x 4.1 cm. The proximal and mid abdominal aorta are normal in caliber. INFERIOR VENA CAVA: Visualized portions are normal. LIVER: Normal. The liver is normal in size. The liver contour is normal. Parenchymal echogenicity is normal. No focal hepatic lesion. There is no intrahepatic biliary duct dilatation seen. GALLBLADDER: The gallbladder is physiologically distended. Multiple mobile gallstones are present. No evidence of gallbladder wall thickening or pericholecystic fluid. COMMON BILE DUCT: Normal in caliber measuring 0.4 cm in diameter. RIGHT KIDNEY: The right kidney appears small with renal cortical thinning. No hydronephrosis. No renal calculi or focal parenchymal lesions. The kidney measures 7.6 cm in maximum dimension. LEFT KIDNEY: Normal. No hydronephrosis. No renal calculi or focal parenchymal lesions. The kidney measures 10.7 cm in maximum dimension. SPLEEN: Normal. The spleen measures 8.6 cm in maximum dimension. FREE FLUID: None. US/US abdomen complete IMPRESSION: Normal-appearing liver. No focal liver lesion seen. Gallstones. Small right kidney. Distal abdominal aortic aneurysm measuring 3.3 x 4.1 cm. This is increased from 3.6 cm on most recent exam November 2021. Vascular surgery consultation and yearly ultrasound follow-up for 5 years recommended.
== END 2022-07-15 11:56 | disposition home or self-care (01) ==
LOC: HO.US 11:55
PROVIDERS: Visit Provider Internal Medicine Infectious Disease
DX: B18.1 Chronic viral hepatitis B without delta-agent (principal)
CPT/HCPCS: 76700

== ENCOUNTER → 2022-07-27 10:31 | Outpatient (BNVA) | payer MEDICARE, BC, SELFPAY | PROVIDERS: PCP Family Medicine; Visit Provider Registered Nurse Diabetes Educator | DX: E10.65 Type 1 diabetes mellitus with hyperglycemia (principal) | CPT/HCPCS: 99211 ==

== ENCOUNTER 2022-07-29 11:14 | Outpatient (REF) | payer MEDICARE, BC, SELFPAY ==
[2022-07-29 11:28] VITALS: BP 163/73; PULSE 58; RESP 18; TEMP 36.4; O2SAT 99; BMI 23.6
--- NOTE | 2022-07-29 12:32 | P.BOP_ITS ---
Brief Operative Note Date of Service: 07/29/22 Pre-op diagnosis: Presence of implantable loop recorder Post-op diagnosis: other (Implantable loop recorder removed) Procedure: Explantation of loop recorder Implants: After obtaining full informed consent patient brought to the minor surgery suite. Patient was then laid on the operating table in supine position. Patient surgical site was then marked. Patient area was then prepped and draped in a sterile fashion. Patient was then administered 2% lidocaine with epinephrine intradermally and subcutaneously around the device. A small inc ision was made at the side of the head of the device. After some blunt dissection device was then removed. The wound was then closed with Steri-Strips and sterile dressing applied Surgeon: Emmanuel Valdez MD Anesthesia: local Was an Hand Wrapper Operator used for this Procedure?: No Estimated blood loss (mL): 5 Pathology: none sent Condition: stable Disposition: same day
== END 2022-07-29 11:15 | disposition home or self-care (01) ==
LOC: HO.MS 11:14
PROVIDERS: Visit Provider Internal Medicine Cardiovascular Disease
PROC: (CPT 33286; principal; 2022-07-29 11:30)
DX: Z45.09 Encounter for adjustment and management of other cardiac device (principal); Z95.828 Presence of other vascular implants and grafts
CPT/HCPCS: 33286

== ENCOUNTER → 2022-11-08 10:02 | Outpatient (BNVA) | payer MEDICARE, BC, SELFPAY | PROVIDERS: PCP Family Medicine; Visit Provider Registered Nurse Diabetes Educator | DX: E10.65 Type 1 diabetes mellitus with hyperglycemia (principal); E10.22 Type 1 diabetes mellitus with diabetic chronic kidney disease; I12.9 Hypertensive chronic kidney disease with stage 1 through stage 4 chronic kidney disease, or unspecified chronic kidney disease; N18.30 Chronic kidney disease, stage 3 unspecified | CPT/HCPCS: 36415; 82040; 82247; 82565; 84450; 84460; 85025; 85610; 86692; 86780; 87517; 99211 ==

== ENCOUNTER 2022-11-08 11:03 | Outpatient (REF) | payer MEDICARE, BC, SELFPAY ==
[2022-11-08 14:06] LABS: MANUAL DIFF FLAG NO
[2022-11-08 14:11] LABS: Basophils Absolute Auto 0.1 X10*3/uL (0.0-0.2); Basophils Percent Auto 0.9 % (0-2); Eosinophils Absolute Auto 0.2 X10*3/uL (0.0-0.4); Hemoglobin 14.2 g/dl (14.0-18.0); Imm Gran Abs Auto 0.02 X10*3/uL (0.00-0.03); Imm Gran Pct Auto 0.3 % (0.0-0.4); Lymphocytes Absolute Auto 1.4 X10*3/uL (1.2-4.9); Lymphocytes Percent Auto 17.5 % (20-40); Mean Corpuscular Hemoglobin 29.6 pg (27.0-33.0); Mean Corpuscular Volume 89.6 fL (80.0-98.0); Mean Platelet Volume 9.2 fL (9.4-12.4); Monocytes Absolute Auto 0.6 X10*3/uL (0.1-1.2); Monocytes Percent Auto 7.4 % (2-11); Neutrophils Absolute Auto 5.7 x10*3/uL (2.0-8.3); Neutrophils Percent Auto 70.9 % (45-73); Platelet Count 247 X10*3/uL (160-400); Red Cell Distribution Width 13.5 % (11.0-16.0)
[2022-11-08 14:15] LABS: INTERNATIONAL NORM RATIO 0.9 (0.9-1.1); Prothrombin Time 10.5 SEC (10.0-13.1)
[2022-11-08 15:35] LABS: Alanine Aminotransferase 19 U/L (0-40); Albumin Level 4.5 g/dL (3.5-5.0); Aspartate Amino Transferase 19 U/L (5-37); Bilirubin Total 0.7 mg/dL (0.0-1.0); Estimated Glomerular Filt Rate 40
[2022-11-09 04:51] LABS: Syphilis Screen Nonreactive (Nonreactive)
[2022-11-11 15:18] LABS: Hepatitis B Viral DNA Qn - cp <1.00 NOT DETECTED Log IU/mL (NOT DETECTED); Hepatitis B Viral DNA Qn-IU/mL <10 NOT DETECTED IU/mL (NOT DETECTED)
[2022-11-16 18:53] LABS: Hepatitis Delta Antibody NEGATIVE
== END 2022-11-08 11:04 | disposition home or self-care (01) ==
LOC: HO.10HDL 11:03
PROVIDERS: Absent Provider Family Medicine; Visit Provider Internal Medicine Infectious Disease
DX: Z13.89 Encounter for screening for other disorder (principal)
CPT/HCPCS: 36415; 82040; 82247; 82565; 84450; 84460; 85025; 85610; 86692; 86780; 87517

== ENCOUNTER 2022-11-18 11:51 | Outpatient (REF) | payer MEDICARE, BC, SELFPAY ==
[2022-11-18 14:17] LABS: Estimated Average Glucose 206 mg/dL; Hemoglobin A1c % 8.8 %
[2022-11-18 14:29] LABS: Alanine Aminotransferase 19 U/L (0-40); Albumin Level 4.1 g/dL (3.5-5.0); Alkaline Phosphatase 83 U/L (39-117); Anion Gap 13 (12-20); Aspartate Amino Transferase 20 U/L (5-37); Bilirubin Total 0.4 mg/dL (0.0-1.0); Blood Urea Nitrogen 26 mg/dL (9-16); Calcium 9.6 mg/dL (8.4-10.2); Carbon Dioxide 27 mmol/L (22-29); Chloride 103 mmol/L (96-108); Estimated Glomerular Filt Rate 29; Glucose Random 207 mg/dL (60-115); Potassium 4.5 mmol/L (3.3-5.1); Sodium 138 mmol/L (135-145); Total Protein 6.9 g/dL (6.5-8.0)
== END 2022-11-18 11:52 | disposition home or self-care (01) ==
LOC: HO.10HDL 11:51
PROVIDERS: Visit Provider Internal Medicine
DX: E55.9 Vitamin D deficiency, unspecified (principal); E10.65 Type 1 diabetes mellitus with hyperglycemia
CPT/HCPCS: 36415; 80053; 82306; 83036

== ENCOUNTER → 2022-11-23 14:22 | Outpatient (BNVA) | payer MEDICARE, BC, SELFPAY | PROVIDERS: PCP Family Medicine; Visit Provider Internal Medicine | DX: E10.65 Type 1 diabetes mellitus with hyperglycemia (principal); D35.2 Benign neoplasm of pituitary gland; E78.5 Hyperlipidemia, unspecified; I10 Essential (primary) hypertension | CPT/HCPCS: 82947; 99212 ==

== ENCOUNTER 2022-12-02 07:39 | Outpatient (REF) | payer MEDICARE, BC, SELFPAY ==
[2022-12-02 08:32] LABS: Anion Gap 14 (12-20); Blood Urea Nitrogen 24 mg/dL (9-16); Calcium 8.8 mg/dL (8.4-10.2); Carbon Dioxide 25 mmol/L (22-29); Chloride 106 mmol/L (96-108); Estimated Glomerular Filt Rate 37; Glucose Random 92 mg/dL (60-115); Sodium 141 mmol/L (135-145)
[2022-12-02 08:39] LABS: Osmolality, Serum 294 mosm/kg (281-305)
[2022-12-02 08:49] LABS: Free T4 (Free Thyroxine) 0.91 ng/dL (0.71-1.85); Thyroid Stimulating Hormone 1.94 uIU/mL (0.32-4.0)
[2022-12-02 08:51] LABS: Cortisol Random 17.7 ug/dL
[2022-12-06 18:18] LABS: Follicle Stimulating Hormone 9.7 mIU/mL (1.6-8.0); Lutenizing Hormone 10.5 mIU/mL (1.6-15.2); Sex Hormone Binding Globulin 38 nmol/L (22-77); Triiodothyronine T3 Total 121 ng/dL (76-181)
[2022-12-08 06:24] LABS: Adrenocorticotropic Hormone 44 pg/mL (6-50)
[2022-12-09 17:24] LABS: IGF-1 (Somatomedin C) 167 ng/mL (34-245); IGF-1 Z Score (Male) 0.9 SD (-2.0 - +2.0)
[2022-12-12 13:08] LABS: Testosterone, Free 59.7 pg/mL (30.0-135.0); Testosterone, Total 328 ng/dL (250-1100)
== END 2022-12-02 07:40 | disposition home or self-care (01) ==
LOC: HO.LAB 07:39
PROVIDERS: PCP Family Medicine; Visit Provider Internal Medicine
DX: D35.2 Benign neoplasm of pituitary gland (principal)
CPT/HCPCS: 36415; 80048; 82024; 82533; 83001; 83002; 83930; 84146; 84270; 84305; 84402; 84403; 84439; 84443; 84480

== ENCOUNTER 2023-02-28 10:21 | Outpatient (REF) | payer MEDICARE, BC, SELFPAY ==
[2023-02-28 11:20] LABS: Estimated Average Glucose 194 mg/dL; Hemoglobin A1c % 8.4 %
[2023-02-28 12:43] LABS: Alanine Aminotransferase 22 U/L (0-40); Alkaline Phosphatase 83 U/L (39-117); Anion Gap 9 (12-20); Aspartate Amino Transferase 20 U/L (5-37); Bilirubin Total 0.4 mg/dL (0.0-1.0); Blood Urea Nitrogen 21 mg/dL (9-16); Calcium 8.8 mg/dL (8.4-10.2); Carbon Dioxide 28 mmol/L (22-29); Chloride 105 mmol/L (96-108); Estimated Glomerular Filt Rate 33; Glucose Random 253 mg/dL (60-115); Potassium 4.3 mmol/L (3.3-5.1); Sodium 138 mmol/L (135-145); Total Protein 6.6 g/dL (6.5-8.0)
== END 2023-02-28 10:22 | disposition home or self-care (01) ==
LOC: HO.LAB 10:21
PROVIDERS: PCP Family Medicine; Visit Provider Internal Medicine
DX: E10.65 Type 1 diabetes mellitus with hyperglycemia (principal)
CPT/HCPCS: 36415; 80053; 83036

== ENCOUNTER → 2023-03-01 07:55 | Outpatient (BNVA) | payer MEDICARE, BC, SELFPAY | PROVIDERS: PCP Family Medicine; Visit Provider Internal Medicine | DX: E10.65 Type 1 diabetes mellitus with hyperglycemia (principal); E78.5 Hyperlipidemia, unspecified; I10 Essential (primary) hypertension; D35.2 Benign neoplasm of pituitary gland | CPT/HCPCS: 82947; 99212 ==

== ENCOUNTER 2023-03-03 07:51 | Outpatient (REF) | payer MEDICARE, BC, SELFPAY ==
[2023-03-03 08:56] LABS: Cortisol Random 1.5 ug/dL
[2023-03-10 14:13] LABS: Adrenocorticotropic Hormone <5 pg/mL (6-50)
[2023-03-16 09:09] LABS: Dexamethasone 713 ng/dL
== END 2023-03-03 07:52 | disposition home or self-care (01) ==
LOC: HO.LAB 07:51
PROVIDERS: PCP Family Medicine; Visit Provider Internal Medicine
DX: D35.2 Benign neoplasm of pituitary gland (principal)
CPT/HCPCS: 36415; 80299; 82024; 82533

== ENCOUNTER → 2023-03-08 09:50 | Outpatient (BNVA) | payer MEDICARE, BC, SELFPAY | PROVIDERS: PCP Family Medicine; Visit Provider Registered Nurse Diabetes Educator | DX: E10.65 Type 1 diabetes mellitus with hyperglycemia (principal) | CPT/HCPCS: 99211 ==

== ENCOUNTER → 2023-04-21 13:35 | Outpatient (BNVA) | payer MEDICARE, BC, SELFPAY | PROVIDERS: PCP Family Medicine; Visit Provider Registered Nurse Diabetes Educator | DX: E10.65 Type 1 diabetes mellitus with hyperglycemia (principal) | CPT/HCPCS: 99211 ==

== ENCOUNTER 2023-05-01 11:52 | Outpatient (REF) | payer MEDICARE, BC, SELFPAY ==
[2023-05-01 12:43] LABS: MANUAL DIFF FLAG NO
[2023-05-01 13:40] LABS: Basophils Absolute Auto 0.1 X10*3/uL (0.0-0.2); Basophils Percent Auto 0.7 % (0-2); Eosinophils Absolute Auto 0.2 X10*3/uL (0.0-0.4); Eosinophils Percent Auto 2.4 % (0-4); Hematocrit 39.4 % (42.0-52.0); Hemoglobin 13.2 g/dl (14.0-18.0); Imm Gran Abs Auto 0.01 X10*3/uL (0.00-0.03); Imm Gran Pct Auto 0.1 % (0.0-0.4); Mean Corpuscular HGB Conc 33.5 g/dl (31.0-36.0); Mean Corpuscular Hemoglobin 29.9 pg (27.0-33.0); Mean Corpuscular Volume 89.1 fL (80.0-98.0); Mean Platelet Volume 9.4 fL (9.4-12.4); Monocytes Absolute Auto 0.6 X10*3/uL (0.1-1.2); Monocytes Percent Auto 8.3 % (2-11); Neutrophils Absolute Auto 4.9 x10*3/uL (2.0-8.3); Neutrophils Percent Auto 73.5 % (45-73); Platelet Count 237 X10*3/uL (160-400); Red Blood Count 4.42 X10*6/uL (4.60-5.80); Red Cell Distribution Width 13.5 % (11.0-16.0); White Blood Count 6.7 X10*3/uL (4.8-10.8)
[2023-05-01 13:50] LABS: Fibrinogen 520 MG/DL (259-690)
[2023-05-01 14:47] LABS: Alanine Aminotransferase 17 U/L (0-40); Albumin Level 4.1 g/dL (3.5-5.0); Aspartate Amino Transferase 16 U/L (5-37); Bilirubin Total 0.5 mg/dL (0.0-1.0); Blood Urea Nitrogen 20 mg/dL (9-16); Estimated Glomerular Filt Rate 32
[2023-05-01 15:10] LABS: Syphilis Screen Nonreactive (Nonreactive)
[2023-05-03 03:46] LABS: HIV AB/AG Nonreactive (Nonreactive); HIV Num 1 0.08 S/CO (0.00-0.99); ~HepC Num1 0.11 S/CO (0.00-0.79); ~Hepatitis C Antibody Nonreactive (Nonreactive)
[2023-05-03 16:28] LABS: Hepatitis B Viral DNA Qn - cp NOT DETECTED Log IU/mL (NOT DETECTED); Hepatitis B Viral DNA Qn-IU/mL NOT DETECTED (NOT DETECTED)
== END 2023-05-01 11:53 | disposition home or self-care (01) ==
LOC: HO.LAB 11:52
PROVIDERS: Visit Provider Internal Medicine Infectious Disease
DX: Z00.00 Encounter for general adult medical examination without abnormal findings (principal); I10 Essential (primary) hypertension; Z20.2 Contact with and (suspected) exposure to infections with a predominantly sexual mode of transmission
CPT/HCPCS: 82040; 82247; 82565; 84450; 84460; 84520; 85025; 85384; 86592; 86692; 86780; 86803; 87389; 87517

== ENCOUNTER 2023-05-22 13:31 | Outpatient (AMB) | payer MEDICARE, BC, SELFPAY ==
--- NOTE | 2023-05-22 14:03 | MHC.AMDMED ---
Intake Intake Visit Reasons: carb Blogs Manager Required: No Accompanied by: Self / Same As Patient Allergies No Known Allergies Allergy (Verified 03/01/23 09:03) HPI Comprehensive Diabetes Asmnt Most Recent Diabetes Results: Creatinine 2.06 mg/dL (0.5-1.4) H 05/01/23 Blood Urea Nitrogen 20 mg/dL (9-16) H 05/01/23 Sodium 138 mmol/L (135-145) 02/28/23 Potassium 4.3 mmol/L (3.3-5.1) 02/28/23 Chloride 105 mmol/L (96-108) 02/28/23 Carbon Dioxide 28 mmol/L (22-29) 02/28/23 Calcium 8.8 mg/dL (8.4-10.2) 02/28/23 AST 16 U/L (5-37) 05/01/23 ALT 17 U/L (0-40) 05/01/23 Total Protein 6.6 g/dL (6.5-8.0) 02/28/23 Albumin 4.1 g/dL (3.5-5.0) 05/01/23 [facility] Medical History AAA (abdominal aortic aneurysm) CAD (coronary artery disease) Carotid artery disease Cerebral microvascular disease CKD (chronic kidney disease) stage 3, GFR 30-59 ml/min CKD (chronic kidney disease) stage 3, GFR 30-59 ml/min CVA (cerebral vascular accident) Encounter for loop recorder check History of stent insertion of renal artery HLD (hyperlipidemia) HTN (hypertension) Hypertension Hypertensive urgency Left hemiparesis Left renal artery stenosis Multiple cerebral infarctions Peroneal neuropathy Pituitary adenoma Pituitary macroadenoma Status post placement of implantable loop recorder Stroke Stroke due to stenosis of right carotid artery T1DM (type 1 diabetes mellitus) TIA (transient ischemic attack) Vitamin D deficiency Surgical History History of carotid endarterectomy History of heart artery stent Family History Father CVD (cardiovascular disease) AAA (abdominal aortic aneurysm) Mother No problems noted. Social History (Reviewed 03/01/23 @ 09:02 by YANETH Mccollum Household Members: Spouse and Family Housing: House Do you presently have visiting nurse or other home services: Yes Alcohol intake: never Patient Tobacco Use Status: Former Tobacco user Quit Date: December 2020 Tobacco use type: Cigarette Years Smoked: 50+ Second Hand Smoke Exposure: No service: No Current occupational status: unemployed and retired Assessment & Plan Assessment & Plan (1) T1DM (type 1 diabetes mellitus): Code(s): E10.9 - Type 1 diabetes mellitus without complications Qualifiers: Diabetes mellitus complication status: with hyperglycemia Qualified Code(s): E10.65 - Type 1 diabetes mellitus with hyperglycemia Plan: Personal Continuous Glucose Monitor: Patients CGM information reviewed Reviewed patient's sensor data: Hypoglycemia: ? 0% Hyperglycemia:? 90% Time in Range:? 10% Average glucose for the last 2 weeks? 298 mg/dL Patient continues to struggle taking mealtime insulin. Encourage patient to set up reminders at home for mealtime insulin injections. Reviewed with patient the risk of hyperglycemia, including DKA and additional long-term complications Patient concerned that if he is taking 15 units before meals and his meal does not contain large portion of carbohydrate he might have hypoglycemic event. Discussed with patient the importance of just taking the insulin, at 1st. If his pre meal glucose level is at 150 mg/dL he can try just taking half mealtime dose if he is concerned about hypoglycemia Reviewed how to interpret trend arrows Reminded patient that to check finger sticks if symptoms do not match sensor reading. Discussed lag time between finger stick and sensor data.? Patient able to insert sensor independently at home without issue.? Patient Instructions: Tresiba 45 units daily and Novolog 15 units before meals Put sign next to chair at table to remind you to take mealtime insulin Follow-up with Diabetes Education nurse in 2 months Coding Level of Care Code Est Pt Level 1 (50323) Diagnoses T1DM (type 1 diabetes mellitus) E10.65 Diabetes mellitus complication status: with hyperglycemia
== END 2023-05-22 14:13 | disposition home or self-care (01) ==
PROVIDERS: PCP Family Medicine; Visit Provider Registered Nurse Diabetes Educator
DX: E10.65 Type 1 diabetes mellitus with hyperglycemia (principal)

== ENCOUNTER → 2023-05-22 13:31 | Outpatient (BNVA) | payer MEDICARE, BC, SELFPAY | PROVIDERS: PCP Family Medicine; Visit Provider Registered Nurse Diabetes Educator | DX: E10.65 Type 1 diabetes mellitus with hyperglycemia (principal) | CPT/HCPCS: 99211 ==

== ENCOUNTER 2023-06-01 09:22 | Outpatient (REF) | payer MEDICARE, BC, SELFPAY ==
--- NOTE | ~2023-06-01 | MR_ITS ---
EXAMINATION: MR BRAIN WITHOUT CONTRAST CLINICAL INFORMATION: Benign neoplasm of the pituitary gland COMPARISON: MRI of the head without contrast 06/09/2022 TECHNIQUE: Multiplanar multisequence MR imaging of the brain was obtained without intravenous contrast. FINDINGS: Within the limitations of a noncontrast examination, stable size and appearance of a mass centered in the left aspect of the sella turcica with remodeling of the sellar floor extending into the basisphenoid and invasion of the left cavernous sinus. Preserved cavernous carotid flow voids. No significant suprasellar mass effect. Stable mild rightward deviation of the pituitary infundibulum. There is no acute infarct on diffusion-weighted imaging. No extra-axial collection or mass effect/herniation. Patchy periventricular, deep white matter, and brainstem T2 FLAIR hyperintensities consistent with moderate to severe underlying microangiopathy. Chronic right frontoparietal infarct and small focus of encephalomalacia in the lateral right temporal lobe. Chronic lacunar infarcts involving the deep soto nuclei. Chronic encephalomalacia involving the anterior body of the corpus callosum. Redemonstration of sequela of Wallerian degeneration along the right corticospinal tract with atrophy of the right cerebral peduncle. No hydrocephalus. Mild generalized cerebral volume loss with commensurate sulcal and ventricular prominence. The major flow voids at the skull base are preserved. The cerebellar tonsils are normally positioned. The craniocervical junction is normal. There is partial fusion of C3 and C4. Marrow signal is within normal limits. The visualized soft tissues are without significant abnormality. Mild left maxillary and left sphenoid sinus mucosal thickening. MR/MR head/brain wo con IMPRESSION: 1. Within the limitations of a noncontrast examination, stable size and appearance of a left sellar mass with osseous remodeling and invasion of the left cavernous sinus. 2. Moderate to severe chronic white matter microangiopathy and chronic right frontoparietal infarct.
== END 2023-06-01 09:23 | disposition home or self-care (01) ==
LOC: HO.MRI 09:22
PROVIDERS: PCP Family Medicine; Visit Provider Internal Medicine
DX: D35.2 Benign neoplasm of pituitary gland (principal)
CPT/HCPCS: 70551

== ENCOUNTER 2023-06-20 09:43 | Outpatient (REF) | payer MEDICARE, BC, SELFPAY ==
--- NOTE | ~2023-06-20 | US_ITS ---
EXAMINATION: US ABDOMEN COMPLETE CLINICAL INFORMATION: Hepatitis C virus. Screening for hepatocellular carcinoma. Abdominal aortic aneurysm. COMPARISON: 07/15/2022 TECHNIQUE: Real-time imaging of the abdominal viscera. FINDINGS: PANCREAS: Limited visualization. ABDOMINAL AORTA: The distal abdominal aorta measures 3.6 x 4.5 cm. INFERIOR VENA CAVA: Visualized portions are normal. LIVER: The liver is normal in size. The liver contour is normal. Parenchymal echogenicity is normal. No focal hepatic lesion. There is no intrahepatic biliary duct dilatation seen. GALLBLADDER: The gallbladder is physiologically distended with stones and sludge. No gallbladder wall thickening or pericholecystic fluid. Negative sonographic Hernandez sign. COMMON BILE DUCT: Normal in caliber measuring 0.4 cm in diameter. RIGHT KIDNEY: Atrophic. No hydronephrosis. No renal calculi or focal parenchymal lesions. The kidney measures 6.8 cm in maximum dimension. LEFT KIDNEY: No hydronephrosis. No renal calculi or focal parenchymal lesions. The kidney measures 11.3 cm in maximum dimension. SPLEEN: The spleen measures 8.9 cm in maximum dimension. FREE FLUID: None. US/US abdomen complete IMPRESSION: Stones and sludge in the gallbladder. No sonographic evidence of acute cholecystitis. Distal abdominal aortic aneurysm measuring 3.6 x 4.5 cm. No significant interval change. Recommend follow-up every 6 months and vascular specialist consultation. Reference: J Am Cj Radiol 2013; 10 (10): 789-794. Atrophic right kidney.
== END 2023-06-20 09:44 | disposition home or self-care (01) ==
LOC: HO.US 09:43
PROVIDERS: PCP Family Medicine; Visit Provider Internal Medicine Infectious Disease
DX: I71.40 Abdominal aortic aneurysm, without rupture, unspecified (principal)
CPT/HCPCS: 76700

== ENCOUNTER 2023-07-05 13:11 | Outpatient (AMB) | payer MEDICARE, BC, SELFPAY ==
--- NOTE | 2023-07-05 13:17 | A.OFFVIS_ITS ---
Intake Vital Signs 07/05/23 13:18 Height 5 ft 8 in Weight 147 lb 11.355 oz BMI 22.5 BP 120/60 Blood Pressure Location Lt brachial Position Sitting Pulse 62 Intake Visit Reasons: 1 year follow up Allergies No Known Allergies Allergy (Verified 03/01/23 09:03) Medication List - Last Reconciled 07/05/23 by Emmanuel Valdez MD albuterol sulfate 90 mcg/actuation 2 puffs inhalation Q4H PRN amlodipine 10 mg PO DAILY aspirin 81 mg PO DAILY atorvastatin 80 mg PO BEDTIME 30 days cholecalciferol (vitamin D3) 50 mcg PO DAILY dorzolamide-timolol 22.3-6.8 mg/mL 1 drp ophthalmic (eye) BID entecavir 0.5 mg PO DAILY escitalopram oxalate 20 mg PO DAILY ezetimibe (Zetia) 10 mg PO DAILY 90 days hydralazine 50 mg See Protocol PO BEDTIME insulin aspart U-100 (Novolog FlexPen U-100 Insulin aspart) 15 units (0.15 mL) subcut TIDWMEAL 30 days insulin degludec (Tresiba FlexTouch U-100 insulin) 45 units (0.45 mL) subcut BEDTIME 30 days latanoprost 0.005% (Xalatan) 1 drp ophthalmic (eye) BEDTIME melatonin 5 mg PO BEDTIME metoprolol succinate ER 100 mg PO BID omeprazole 10 mg PO DAILY ticagrelor (Brilinta) 90 mg PO BID HPI HPI Comments History of Present Illness Details Phan comes for follow-up. He has been doing well from cardiac perspective. No bleeding issues or neurologic events. Has had no anginal sounding chest discomfort. No lightheadedness, syncope. He says blood pressure generally around systolic 130-140. Denies any prolonged palpitation irregular heartbeat. Denies any orthopnea, PND, leg edema. His functionality has reduced somewhat. He continues to have weakness in his left upper extremity related to his prior stroke. [facility] Medical History AAA (abdominal aortic aneurysm) CAD (coronary artery disease) Carotid artery disease Cerebral microvascular disease CKD (chronic kidney disease) stage 3, GFR 30-59 ml/min CKD (chronic kidney disease) stage 3, GFR 30-59 ml/min CVA (cerebral vascular accident) Encounter for loop recorder check History of stent insertion of renal artery HLD (hyperlipidemia) HTN (hypertension) Hypertension Hypertensive urgency Left hemiparesis Left renal artery stenosis Multiple cerebral infarctions Peroneal neuropathy Pituitary adenoma Pituitary macroadenoma Status post placement of implantable loop recorder Stroke Stroke due to stenosis of right carotid artery T1DM (type 1 diabetes mellitus) TIA (transient ischemic attack) Vitamin D deficiency Surgical History History of carotid endarterectomy History of heart artery stent Family History Father CVD (cardiovascular disease) AAA (abdominal aortic aneurysm) Mother No problems noted. Social History Household Members: Spouse and Family Housing: House Do you presently have visiting nurse or other home services: Yes Alcohol intake: never Patient Tobacco Use Status: Former Tobacco user Quit Date: December 2020 Tobacco use type: Cigarette Years Smoked: 50+ Second Hand Smoke Exposure: No service: No Current occupational status: unemployed and retired Review of Systems Const Denies chills, Denies fatigue, Denies fever(s), Denies frequent falls, Denies weakness, Denies weight gain and Denies weight loss ENT Denies dizziness Card Denies chest pain, Denies leg edema, Denies lightheadedness, Denies palpitations, Denies dyspnea, Denies dyspnea on exertion, Denies orthopnea and Denies other (loss of consciousness) Resp Denies cough, Denies dyspnea and Denies dyspnea on exertion GI Denies hematochezia and Denies change in stool character Musc Denies abnormal gait, Denies muscle weakness, Denies numbness, Denies radiating pain into limb and Denies tingling Neuro Denies abnormal gait, Denies dizziness, Denies frequent falls, Denies numbness, Denies tingling and Denies weakness Endo Denies fatigue and Denies palpitations Physical Exam Vital Signs: Last Vital Signs Pulse 62 07/05/23 13:18 BP 120/60 07/05/23 13:18 BMI result Body Mass Index 22.5 Last Vital Signs Temp 97.3 F 04/04/21 11:29 Pulse 61 06/13/21 11:29 Resp 18 04/04/21 11:29 BP 180/70 H 04/04/21 11:29 Pulse Ox 98 04/04/21 11:29 Body Mass Index 22.5 Const General: cooperative, comfortable and no acute distress Nutritional Appearance: underweight Orientation/consciousness: patient oriented x3 Limitations: ambulation with cane Neck Neck: Yes trachea midline, Yes supple and Yes no JVD Resp Effort & Inspection: normal respiratory effort Auscultation: clear to auscultation bilaterally Cardio Jugular venous distension: no JVD Palpation: normal PMI Rate: regular rate Rhythm: regular rhythm Heart sounds: S1 normal heart sound present and S2 normal heart sound present Neuro General: patient oriented x3 Extrem General: Yes no clubbing, cyanosis or edema Office Procedures EKG Details: EKG shows normal sinus rhythm with right bundle-branch block at 62 beats per minute unchanged from before [id number], Complete Assessment & Plan Assessment & Plan (1) CAD (coronary artery disease): Code(s): I25.10 - Atherosclerotic heart disease of [place] coronary artery without angina pectoris Plan: CAD as well as diffuse atherosclerotic disease including carotid disease, abdominal aortic aneurysm, renal artery stenosis. Patient has done well with dual antiplatelet therapy. Although with no recurrent vascular events will reduce his Brilinta to 60 mg b.i.d. to reduce bleeding risk. Continue aggressive risk factor modification. Continue target goal LDL closer to 50 mg/ dL. Continue aggressive blood pressure control, see below. Continue aggressive diabetes management goal hemoglobin A1c less than 7%. Advised to call me with any new symptoms. No further coronary workup is required at this point in time. (2) Dysautonomia orthostatic hypotension syndrome: Code(s): I95.1 - Orthostatic hypotension Plan: Significant orthostatic syndrome, multi factorial including diabetic autonomic neuropathy, diffuse vascular disease and/or related to renal artery stenosis. Has done well since renal artery stenting. Blood pressure is generally well controlled on current complex regimen. Continue the same. Advised to maintain adequate oral hydration. Orthostatic precautions were discussed. He understands management well. Okay to have blood pressure systolic up to 140 mmHg. Will follow up in the clinic in 1 year's time, sooner p.r.n.. Thank you for all owing me to partake in his care Medications: New ticagrelor (Brilinta) 60 mg PO BID 60 tabs 11RF Coding Level of Care Code Est Pt Level 4 (40290) Diagnoses CAD (coronary artery disease) I25.10 Dysautonomia orthostatic hypotension syndrome I95.1 CPT Codes EKG - CPT: 88357-[id number], Complete ([id number])
[2023-07-05 13:18] VITALS: BP 120/60; PULSE 62; BMI 22.5
== END 2023-07-05 13:38 | disposition home or self-care (01) ==
PROVIDERS: PCP Family Medicine; Visit Provider Internal Medicine Cardiovascular Disease
DX: I25.10 Atherosclerotic heart disease of native coronary artery without angina pectoris (principal); I95.1 Orthostatic hypotension
CPT/HCPCS: 93010; 99214

== ENCOUNTER → 2023-07-05 13:11 | Outpatient (BNVA) | payer MEDICARE, BC, SELFPAY | PROVIDERS: PCP Family Medicine; Visit Provider Internal Medicine Cardiovascular Disease | DX: I25.10 Atherosclerotic heart disease of native coronary artery without angina pectoris (principal); I95.1 Orthostatic hypotension | CPT/HCPCS: 93005; 99212 ==

== ENCOUNTER 2023-08-16 12:49 | Outpatient (AMB) | payer MEDICARE, BC, SELFPAY ==
--- NOTE | 2023-08-16 13:53 | A.OFFVIS_ITS ---
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 Accompanied by: Self / Same As Patient Allergies No Known Allergies Allergy (Verified 03/01/23 09:03) [facility] Comprehensive Diabetes Asmnt Most Recent Diabetes Results: Creatinine 2.06 mg/dL (0.5-1.4) H 05/01/23 Blood Urea Nitrogen 20 mg/dL (9-16) H 05/01/23 AST 16 U/L (5-37) 05/01/23 ALT 17 U/L (0-40) 05/01/23 Albumin 4.1 g/dL (3.5-5.0) 05/01/23 [facility] Medical History AAA (abdominal aortic aneurysm) CAD (coronary artery disease) Carotid artery disease Cerebral microvascular disease CKD (chronic kidney disease) stage 3, GFR 30-59 ml/min CKD (chronic kidney disease) stage 3, GFR 30-59 ml/min CVA (cerebral vascular accident) Encounter for loop recorder check History of stent insertion of renal artery HLD (hyperlipidemia) HTN (hypertension) Hypertension Hypertensive urgency Left hemiparesis Left renal artery stenosis Multiple cerebral infarctions Peroneal neuropathy Pituitary adenoma Pituitary macroadenoma Status post placement of implantable loop recorder Stroke Stroke due to stenosis of right carotid artery T1DM (type 1 diabetes mellitus) TIA (transient ischemic attack) Vitamin D deficiency Surgical History History of carotid endarterectomy History of heart artery stent Family History Father CVD (cardiovascular disease) AAA (abdominal aortic aneurysm) Mother No problems noted. Social History Household Members: Spouse and Family Housing: House Do you presently have visiting nurse or other home services: Yes Alcohol intake: never Patient Tobacco Use Status: Former Tobacco user Quit Date: December 2020 Tobacco use type: Cigarette Years Smoked: 50+ Second Hand Smoke Exposure: No service: No Current occupational status: unemployed and retired Assessment & Plan Assessment & Plan (1) T1DM (type 1 diabetes mellitus): Code(s): E10.9 - Type 1 diabetes mellitus without complications Qualifiers: Diabetes mellitus complication status: with hyperglycemia Qualified Code(s): E10.65 - Type 1 diabetes mellitus with hyperglycemia Plan: Personal Continuous Glucose Monitor: Patients CGM information reviewed Reviewed patient's sensor data: Hypoglycemia: ? 1% Hyperglycemia:? 88% Time in Range:? 11% Average glucose for the last 2 weeks? 319 mg/dL Patient is currently taking Tresiba 45 units NovoLog 15 units before meals Patient reports he is still interested in switching to sliding scale, with correction. Discussed with patient the importance of taking mealtime insulin before each meal. Patient reports that he has started caring insulin pen with him to try and increase compliance pre meal insulin Patient denies forgetting to take Tresiba, see plan for increasing Tresiba in patient instruction section Patient has upcoming visit with Dr. Ramos on 09/21/2023. Encourage patient to discuss transitioning to sliding scale with correction scale, so he can correct high glucose levels when he is not eating. Reminded patient that it is important to take pre meal insulin to control glucose levels. Having sliding scale will not fix hyperglycemia if he is not taking pre meal insulin Reviewed how to interpret trend arrows Reminded patient that to check finger sticks if symptoms do not match sensor reading. Discussed lag time between finger stick and sensor data.? Patient able to insert sensor independently at home without issue.? Patient Instructions: Increase Tresiba 45 units to 50 units After 3 days if fasting blood sugar is still above 150 mg/dL increase to 52 units, increase Tresiba by 2 units every 3 days until you reach 56 units if glucose remains above 150 mg/dL If having low blood sugars overnight reduce back to previous Tresiba dose Coding Level of Care Code Est Pt Level 1 (98982) Diagnoses Type 1 diabetes mellitus with hyperglycemia E10.65 Diabetes mellitus complication status: with hyperglycemia
== END 2023-08-16 13:59 | disposition home or self-care (01) ==
PROVIDERS: PCP Family Medicine; Visit Provider Registered Nurse Diabetes Educator
DX: E10.65 Type 1 diabetes mellitus with hyperglycemia (principal)

== ENCOUNTER → 2023-08-16 12:49 | Outpatient (BNVA) | payer MEDICARE, BC, SELFPAY | PROVIDERS: PCP Family Medicine; Visit Provider Registered Nurse Diabetes Educator | DX: E10.65 Type 1 diabetes mellitus with hyperglycemia (principal) | CPT/HCPCS: 99211 ==

== ENCOUNTER 2023-09-12 13:49 | Outpatient (REF) | payer MEDICARE, BC, SELFPAY ==
[2023-09-12 15:29] LABS: Estimated Average Glucose 232 mg/dL; Hemoglobin A1c % 9.7 % (<6.0)
[2023-09-12 15:37] LABS: Osmolality, Serum 292 mosm/kg (281-305)
[2023-09-12 15:49] LABS: Creatinine Urine 96.38 mg/dL
[2023-09-12 16:02] LABS: Cortisol Random 10.8 ug/dL
[2023-09-12 16:07] LABS: Alanine Aminotransferase 23 U/L (0-40); Albumin Level 4.4 g/dL (3.5-5.0); Alkaline Phosphatase 86 U/L (39-117); Anion Gap 9 (12-20); Aspartate Amino Transferase 22 U/L (5-37); Bilirubin Total 0.5 mg/dL (0.0-1.0); Blood Urea Nitrogen 19 mg/dL (9-16); Carbon Dioxide 31 mmol/L (22-29); Chloride 103 mmol/L (96-108); Cholesterol 110 mg/dL (<200); Estimated Glomerular Filt Rate 43; Glucose Random 45 mg/dL (60-115); HDL Cholesterol 35 mg/dL (>40); LDL Cholesterol Calculated 58 mg/dL (<100); Sodium 139 mmol/L (135-145); Total Protein 7.9 g/dL (6.5-8.0); Triglycerides 88 mg/dL (<150)
[2023-09-12 16:10] LABS: Free T4 (Free Thyroxine) 0.82 ng/dL (0.71-1.85); Thyroid Stimulating Hormone 1.67 uIU/mL (0.32-4.0)
[2023-09-15 16:53] LABS: LDL Cholesterol Direct 55 mg/dL (<100)
[2023-09-16 01:24] LABS: Sex Hormone Binding Globulin 38 nmol/L (22-77)
[2023-09-16 04:49] LABS: Triiodothyronine T3 Total 104 ng/dL (76-181)
[2023-09-17 00:28] LABS: Estradiol Ultra Sensitive 31 pg/mL (< OR = 29)
[2023-09-18 06:59] LABS: Lutenizing Hormone 8.4 mIU/mL (1.6-15.2); Prolactin Undiluted 4.2 ng/mL (2.0-18.0)
[2023-09-18 14:14] LABS: IGF-1 (Somatomedin C) 116 ng/mL (34-245); IGF-1 Z Score (Male) 0.2 SD (-2.0 - +2.0)
[2023-09-19 13:13] LABS: Testosterone, Free 48.3 pg/mL (30.0-135.0); Testosterone, Total 413 ng/dL (250-1100)
== END 2023-09-12 13:50 | disposition home or self-care (01) ==
LOC: HO.LAB 13:49
PROVIDERS: PCP Family Medicine; Visit Provider Internal Medicine
DX: D35.2 Benign neoplasm of pituitary gland (principal); E10.65 Type 1 diabetes mellitus with hyperglycemia
CPT/HCPCS: 36415; 80053; 80061; 82043; 82533; 82570; 82670; 83001; 83002; 83036; 83721; 83930; 84146; 84270; 84305; 84402; 84403; 84439; 84443; 84480

== ENCOUNTER 2023-09-21 07:47 | Outpatient (AMB) | payer MEDICARE, BC, SELFPAY ==
[2023-09-21 07:50] VITALS: BP 128/58; PULSE 71; BMI 22.3
--- NOTE | 2023-09-21 07:50 | A.OFFVIS_ITS ---
Intake Vital Signs 09/21/23 07:50 Height 5 ft 8 in Weight 146 lb 9.718 oz BMI 22.3 BP 128/58 L Blood Pressure Location Rt brachial Position Sitting Pulse 71 Pulse Source Pulse Oximeter Intake Visit Reasons: F/U T1DM and Pituitary macroadenoma 1 hour Intake Note: Patient presents today to follow up on T1DM. Last Diabetic Eye exam: 06/2023 Last Podiatry Visit:None Random Glucose: 174 mg/dl HgA1C: 9.7% 09/12/23 [facility] Screen Measurer And Trimmer Required: No Accompanied by: Self / Same As Patient Allergies No Known Allergies Allergy (Verified 09/21/23 07:57) Medication List - Last Reconciled 09/21/23 by Mikey Ramos MD albuterol sulfate 90 mcg/actuation 2 puffs inhalation Q4H PRN amlodipine 10 mg PO DAILY aspirin 81 mg PO DAILY atorvastatin 80 mg PO BEDTIME 30 days cholecalciferol (vitamin D3) 50 mcg PO DAILY dorzolamide-timolol 22.3-6.8 mg/mL 1 drp ophthalmic (eye) BID entecavir 0.5 mg PO DAILY escitalopram oxalate 20 mg PO DAILY ezetimibe (Zetia) 10 mg PO DAILY 90 days hydralazine 50 mg See Protocol PO BEDTIME insulin aspart U-100 (Novolog FlexPen U-100 Insulin aspart) 15 units (0.15 mL) subcut TIDWMEAL 30 days insulin degludec (Tresiba FlexTouch U-100 insulin) 45 units (0.45 mL) subcut BEDTIME 30 days latanoprost 0.005% (Xalatan) 1 drp ophthalmic (eye) BEDTIME melatonin 5 mg PO BEDTIME metoprolol succinate ER 100 mg PO BID omeprazole 10 mg PO DAILY ticagrelor (Brilinta) 60 mg PO BID HPI HPI Comments History of Present Illness Details 72 year-old male with a past medical history of chronic hepatitis-B, type 1 diabetes, hypertension, HLD, and a Pituitary macroadenoma. He is seen in F/U today. He was previously followed by an screen repairer crusher Dr. Enriquez in [facility] for his diabetes. The patient last saw Dr. Kenny on 03/01/2023 1) Pituitary Macroadenoma: In late January of 2019 he suffered a TIA and subsequently had CT head as well as MRI of the head MRI of the head revealed a 1.6 cm heterogenous pituitary macroadenoma with some depression of the floor of the sella there was no suprasellar extension. He was referred to Endocrinology and we evaluated pituitary function which revealed this to be a nonsecreting adenoma. Prolactin was WNL, dilution was also checked and Prolactin remained WNL with no evidence of hook effect. 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 He was also asked to see Ophtho Dr. Watkins for formal visual cherry. He did have these completed and there was evidence of some peripheral visual field loss on the R. [place] [facility] [place], who did recommend transphenoidal resection. Chandler preferred to have MRI repeated in 6 months from prior prior to making a decision regarding resection. He completed this 10/17/19 at [place], and there was no significant change in the adenoma. He has been repeating these MRI's q 6-12 months and following with Dr. Johnston. His last was 12/16/2021 and he had a visit with Dr. Johnston in December of 2021. The recommendation was for transphenoidal surgery as the mass is enlarging, but Chandler preferred to wait longer and Dr. Kunz was on board with that. He had another MRI in May of 2022 which revealed the mass had grown slightly to 1.7 cm, but again was not encroaching on the optic apparatus. He has denied any headaches. Denies any galactorrhea or growth of breast tissue. Denies change in the size of the hands or the feet. Denies weight gain, development of violaceous striae. Denies any swelling within the neck or goiter formation. Denies tremors or palpitations. He denies any orthostatic symptoms. Denies any erectile dysfunction. Recent hormonal workup shows no secretion of pituitary hormones or deficiency. Recent MRI of the pituitary shows no change in the size the adenoma or encroachment on the optic chiasm 2) T1DM: He also has a history of T1DM. Current regimen of Tresiba 50 units qAM. He also uses Novolog 15 units AC. He is not accurately counting carbohydrates. He does drink juice and does not give any insulin for this. Dexcom download shows he is using the sensor 71% of the time. Average glucose is 263 with standard deviation of 100. 22% range with 76% hyperglycemia and 1% hypoglycemia.. Pattern shows declining blood sugars overnight with increases in point care post-breakfast and post-lunch Reports low sugars rarely. Treats lows according to the rule of 15's. Has eyes checked yearly, saw optho 2 mos a go Denies retinopathy. Denies Neuropathy. No Nephropathy. He is off Lisinopril now per the recommendation of his Elementary Spanish Teacher. UAC 73.2 04/15/2022. He developed orthostatic hypotension in 2020 and was having low BP with LEE/ARB so these were stopped. Has HLD, on Atorvastatin 80 mg PO daily and Zetia 10 mg PO daily. LDL 48 04/22/2022. Has history of CAD with triple vessel PTCA few years ago. He had a CVA in 2020.. He has had negative antibodies GAD65 as well as insulin autoantibodies the past Attending CDE. 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 MRI Brain: 01/14/2021 FINDINGS: There are multiple new or enlarging foci of restricted diffusion within the right cerebral hemisphere when compared to prior MR imaging from 01/12/2021. There are a few scattered pu nctate foci of susceptibility artifact within the right frontal, right occipital, and both parietal lobes. Intracranial vascular flow voids are grossly maintained. There are numerous foci of T2 FLAIR signal hyperintensity throughout the periventricular white matter, basal ganglia, and juan c that most likely represent a chronic manifestation of small vessel ischemia. No intracranial mass effect or midline shift. No abnormal extra-axial collection. Lateral and third ventricles are proportionate to the subarachnoid spaces. No hydrocephalus. There is an intrasellar mass causing smooth chronic remodeling and expansion of the sella turcica. Midline structures are otherwise unremarkable. No acute bone marrow signal changes. There is no mastoid middle ear effusion. Partial opacification of one of the right posterior ethmoids. Otherwise no active paranasal sinus disease. MR/MR head/brain wo con IMPRESSION: There are multiple new or worsening acute infarcts within the right cerebral hemisphere when compared to recent prior MR imaging from 01/12/2021. These findings are superimpo sed upon numerous chronic small vessel ischemic changes within the periventricular white matter, basal ganglia, and juan c. No intracranial mass effect. Labs: Laboratory Tests 03/10/22 04/15/22 04/15/22 10:24 10:30 10:30 Sodium 137 Potassium 4.7 Creatinine 2.13 H Estimated GFR 31 Hemoglobin A1c % 8.5 Triglycerides Cholesterol LDL Cholesterol Di rect LDL Cholesterol, C alc HDL Cholesterol 25-OH Vitamin D To elal TSH 1.59 Free T4 Total T3 FSH Luteinizing Hormon e Prolactin Undilute d Prolactin Diluted Total Testosterone Fr Testosterone Di efraín Sex Hormone Bind G lob Somatomedin-C PTH Intact 51 Calcium (PTH Intac t) 10.1 Random Cortisol ACTH Microalb/Creat Rat io 04/15/22 04/15/22 04/15/22 10:30 10:30 10:30 Sodium Potassium Creatinine Estimated GFR Hemoglobin A1c % Triglycerides Cholesterol LDL Cholesterol Di rect 55 LDL Cholesterol, C alc HDL Cholesterol 25-OH Vitamin D To ella 40.5 TSH Free T4 0.87 Total T3 122 FSH 8.6 H Luteinizing Hormon e 7.9 Prolactin Undilute d 5.7 Prolactin Diluted SEE NOTE Total Testosterone 388 Fr Testosterone Di efraín 48.1 Sex Hormone Bind G lob 41 Somatomedin-C 101 PTH Intact Calcium (PTH Intac t) Random Cortisol 16.4 ACTH Microalb/Creat Rat io 04/15/22 04/22/22 04/22/22 10:30 07:40 07:40 Sodium Potassium Creatinine Estimated GFR Hemoglobin A1c % Triglycerides 113 Cholesterol 96 LDL Cholesterol Di rect LDL Cholesterol, C alc 48 HDL Cholesterol 26 25-OH Vitamin D To ella TSH Free T4 Total T3 FSH Luteinizing Hormon e Prolactin Undilute d Prolactin Diluted Total Testosterone Fr Testosterone Di efraín Sex Hormone Bind G lob Somatomedin-C PTH Intact Calcium (PTH Intac t) Random Cortisol ACTH 34 Microalb/Creat Rat io 73.2 11/18/22 11/18/22 12/02/22 11:57 11:57 07:56 Sodium 138 Potassium 4.5 Creatinine 2.23 H Estimated GFR 29 Hemoglobin A1c % 8.8 Triglycerides Cholesterol LDL Cholesterol Di rect LDL Cholesterol, C alc HDL Cholesterol 25-OH Vitamin D To ella 37.0 TSH 1.94 Free T4 0.91 Total T3 FSH Luteinizing Hormon e Prolactin Undilute d Prolactin Diluted Total Testosterone Fr Testosterone Di efraín Sex Hormone Bind G lob Somatomedin-C PTH Intact Calcium (PTH Intac t) Random Cortisol ACTH Microalb/Creat Rat io 12/02/22 12/02/22 12/02/22 07:56 07:56 07:56 Sodium Potassium Creatinine Estimated GFR Hemoglobin A1c % Triglycerides Cholesterol LDL Cholesterol Di rect LDL Cholesterol, C alc HDL Cholesterol 25-OH Vitamin D To ella TSH Free T4 Total T3 121 FSH 9.7 H Luteinizing Hormon e 10.5 Prolactin Undilute d 8.0 Prolactin Diluted SEE NOTE Total Testosterone 328 Fr Testosterone Di efraín 59.7 Sex Hormone Bind G lob 38 Somatomedin-C 167 PTH Intact Calcium (PTH Intac t) Random Cortisol 17.7 ACTH 44 Microalb/Creat Rat io 02/28/23 02/28/23 10:31 10:31 Sodium 138 Potassium 4.3 Creatinine 2.03 H Estimated GFR 33 Hemoglobin A1c % 8.4 Triglycerides Cholesterol LDL Cholesterol Di rect LDL Cholesterol, C alc HDL Cholesterol 25-OH Vitamin D To ella TSH Free T4 Total T3 FSH Luteinizing Hormon e Prolactin Undilute d Prolactin Diluted Total Testosterone Fr Testosterone Di efraín Sex Hormone Bind G lob Somatomedin-C PTH Intact Calcium (PTH Intac t) Random Cortisol ACTH Microalb/Creat Rat io [facility] Medical History (Updated 09/21/23 @ 08:00 by Mikey Ramos MD) Uncontrolled diabetes mellitus with hyperglycemia History of stent insertion of renal artery CAD (coronary artery disease) Carotid artery disease Pituitary adenoma Cerebral microvascular disease Multiple cerebral infarctions Left hemiparesis CKD (chronic kidney disease) stage 3, GFR 30-59 ml/min AAA (abdominal aortic aneurysm) Left renal artery stenosis Hypertensive urgency CKD (chronic kidney disease) stage 3, GFR 30-59 ml/min Peroneal neuropathy Hypertension Encounter for loop recorder check Stroke due to stenosis of right carotid artery Stroke Status post placement of implantable loop recorder CVA (cerebral vascular accident) TIA (transient ischemic attack) Vitamin D deficiency Pituitary macroadenoma HLD (hyperlipidemia) HTN (hypertension) T1DM (type 1 diabetes mellitus) Surgical History History of heart artery stent History of carotid endarterectomy Family History Father CVD (cardiovascular disease) AAA (abdominal aortic aneurysm) Mother No problems noted. Social History (Reviewed 03/01/23 @ 09:02 by YANETH Mccollum Household Members: Spouse and Family Housing: House Do you presently have visiting nurse or other home services: Yes Alcohol intake: never Comment: bed rest, unable to ambulate per md Patient Tobacco Use Status: Former Tobacco user Quit Date: December 2020 Tobacco use type: Cigarette Years Smoked: 50+ Second Hand Smoke Exposure: No service: No Current occupational status: unemployed and retired Physical Exam Absence of Cushingoid features. Absence of acromegalic features. Neck exam reveals nl size thyroid about 15 gms. No thyroid nodules palpable. No carotid bruits present. Lungs CTA. Heart S1 S2, Reg R/R. No M/R/ G. Skin exam reveals absence of vitiligo or acanthosis nigricans. Abdominal exam reveals Soft NT/ND with NA BS. No organomegaly present. Visual cherry are normal by gross confrontation Neck Other: . Extrem Other: Visual exam of foot performed. No ulcerations or open lesions. No onchomycosis, no callouses.Pulses 2 + distally Sensation intact to monofilament exam. Vibratory sensation sensed is decreased with 128 Hz tuning fork. There is a left arm contracture. Assessment & Plan Assessment & Plan (1) Uncontrolled diabetes mellitus with hyperglycemia: Code(s): E11.65 - Type 2 diabetes mellitus with hyperglycemia Plan: This 72-year-old white male with reported prior history of type 1 diabetes with negative antibodies? Type 2 currently being treated with basal-bolus insulin with poor glycemic control and known microvascular macrovascular complications namely CAD, CVA and CKD. Plan is to talk to the patient about potentially starting a GLP 1 agonist like Ozempic in light of the history of CAD and CVA. If he cannot tolerate the Ozempic, we could use Mounjaro. Would not increase prandial insulin and 1st wait to see the effects of the Ozempic. After careful discussion with the patient, was decided to start Ozempic 0.25 mg q.week and titrate as tolerated. Went over side effects of Ozempic including but not limited to nausea, vomiting and risk of pancreatitis. Will reduce Tresiba to 40 units and to 20 units if continued hypoglycemia particularly if patient tolerates Ozempic. Patient was also instructed to report any hypoglycemia during the day for possible reduction of NovoLog. I also prescribed glucagon rescue Baquimi and ask patient to follow up with the early childhood educator aide (2) Pituitary macroadenoma: Code(s): D35.2 - Benign neoplasm of pituitary gland Plan: History of pituitary macroadenoma non-secretory on recent blood work without any pituitary deficiencies. No encroachment of optic chiasm. Recent MRI showed no change in the size the adenoma. Plan is for continued observation. Patient was asked to follow-up with Dr. Bruris Medications: New glucagon 3 mg/actuation (Baqsimi) 3 mg intranasal ONCE 2 ea 5RF semaglutide (Ozempic) 0.5 mg (0.736 mL) subcut QWEEK 3 mL 5RF Coding Level of Care Code Est Pt Level 4 (82572) Diagnoses Uncontrolled diabetes mellitus with hyperglycemia E11.65 Pituitary macroadenoma D35.2
[2023-09-21 08:04] LABS: Glucose, Whole Blood 174 mg/dL (60-115)
== END 2023-09-21 09:04 | disposition home or self-care (01) ==
PROVIDERS: PCP Family Medicine; Visit Provider Internal Medicine Endocrinology, Diabetes & Metabolism
DX: E11.65 Type 2 diabetes mellitus with hyperglycemia (principal); D35.2 Benign neoplasm of pituitary gland
CPT/HCPCS: 99214

== ENCOUNTER → 2023-09-21 07:47 | Outpatient (BNVA) | payer MEDICARE, BC, SELFPAY | PROVIDERS: PCP Family Medicine; Visit Provider Internal Medicine Endocrinology, Diabetes & Metabolism | DX: E11.65 Type 2 diabetes mellitus with hyperglycemia (principal); E11.22 Type 2 diabetes mellitus with diabetic chronic kidney disease; I13.10 Hypertensive heart and chronic kidney disease without heart failure, with stage 1 through stage 4 chronic kidney disease, or unspecified chronic kidney disease; N18.30 Chronic kidney disease, stage 3 unspecified; D35.2 Benign neoplasm of pituitary gland; E22.9 Hyperfunction of pituitary gland, unspecified; E78.5 Hyperlipidemia, unspecified; I69.954 Hemiplegia and hemiparesis following unspecified cerebrovascular disease affecting left non-dominant side; Z79.4 Long term (current) use of insulin; Z87.891 Personal history of nicotine dependence | CPT/HCPCS: 82947; 99212 ==

== ENCOUNTER 2023-11-26 11:39 | Emergency (ER) | payer MEDICARE, BC, SELFPAY ==
--- NOTE | ~2023-11-26 | XR_ITS ---
EXAMINATION: XR FOOT, LEFT CLINICAL INFORMATION: Pain COMPARISON: None available. TECHNIQUE: AP, lateral, and oblique views of the left foot. FINDINGS: Bone alignment is normal. No fracture or dislocation. Contractures of the toes. Joint spaces are otherwise normal. Calcaneal spurs. Soft tissues are normal. XR/XR foot LT 2V IMPRESSION: No fracture or dislocation. Calcaneal spurs.
--- NOTE | ~2023-11-26 | CT_ITS ---
EXAMINATION: CT CERVICAL SPINE WITHOUT CONTRAST CLINICAL INFORMATION: Fall COMPARISON: None available. TECHNIQUE: Axial images through the cervical spine without contrast. Sagittal and coronal reconstructions on the technologist workstation This CT examination was performed using dose optimization techniques as appropriate, variously including the following: *Automated exposure control *Adjustment of mA and/or kV according to patient size (this includes techniques or standardized protocols for targeted exams where dose is matched to indication/reason for exam; i.e. extremities or head) *Use of iterative reconstruction technique DLP: 311 mGy-cm FINDINGS: Bone alignment is normal. No fracture or dislocation. 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 Degenerative spondylosis and degenerative disc disease at C4-C5, C5-C6 and C6-C7. Degenerative changes of the dens articulation. Pre vertebral soft tissues are normal. Mild biapical pleural parenchymal scarring. CT/CT cervical spine wo IV con IMPRESSION: Degenerative changes. No fracture or dislocation. Fleischner guidelines were followed.
--- NOTE | ~2023-11-26 | CT_ITS ---
EXAMINATION: CT HEAD WITHOUT CONTRAST CLINICAL INFORMATION: Fall. Blood thinning medication. COMPARISON: Previous head CT December 2021 and brain MRI May 2023 TECHNIQUE: Contiguous axial imaging was performed from the skull base to vertex without intravenous administration of contrast. This CT examination was performed using dose optimization techniques as appropriate, variously including the following: *Automated exposure control *Adjustment of mA and/or kV according to patient size (this includes techniques or standardized protocols for targeted exams where dose is matched to indication/reason for exam; i.e. extremities or head) *Use of iterative reconstruction technique DLP: 671 mGy-cm FINDINGS: There is no evidence of an extra-axial collection. There is no evidence of intra or extra-axial hemorrhage. Ventricles and extra-axial CSF spaces are prominent suggestive of mild generalized atrophy. There is nonspecific periventricular white matter disease. There is an old right frontal parietal infarct and there may be old bilateral thalamic lacunar infarcts that appear unchanged. Pituitary mass appears unchanged. No mass effect or acute infarct. No skull fracture. Mild inflammatory changes in the bilateral ethmoid and maxillary and sphenoid sinuses. Underaeration of the frontal sinuses. CT/CT head/brain wo IV con IMPRESSION: No acute intracranial findings. Mild sinus disease.
[2023-11-26 12:00] VITALS: BP 145/72; BP 172/58; PULSE 85; RESP 16; TEMP 37.4; O2SAT 98; BMI 21.4
[2023-11-26 14:20] VITALS: BP 143/71; PULSE 83; RESP 16; TEMP 37.2; O2SAT 97
--- NOTE | 2023-11-26 14:27 | ED_ITS ---
HPI - Fall General Chief Complaint: Fall Stated Complaint: FALL THIS AM Time Seen by Provider: 11/26/23 13:27 Source: patient Mode of arrival: EMS History of Present Illness HPI Narrative: 72-year-old male who has had a prior stroke with residual deficits that affect left upper extremity presents via EMS after he fell on Monday without head strike and has some superficial abrasions to the left knee and then states that Monday he relaxed a bit and then today he went to get out of bed and fell twice but reports that it was more of a sliding out of bed and inability to get up because of the proximity of the bed to the wall. Patient denies any headaches or dizziness patient does take Brilinta for prior stroke. Related Data Home Medications Medication Instructions Recorded Confirmed aspirin 81 mg tablet,delayed 81 mg PO DAILY 09/10/20 07/05/23 release cholecalciferol (vitamin D3) 50 50 mcg PO DAILY 09/10/20 07/05/23 mcg (2,000 unit) capsule latanoprost 0.005 % eye drops 1 drp ophthalmic (eye) BEDTIME 09/10/20 07/05/23 (Xalatan) dorzolamide 22.3 mg-timolol 6.8 1 drp ophthalmic (eye) BID 01/12/21 07/05/23 mg/mL eye drops albuterol sulfate 90 mcg/actuation 2 puff inhalation Q4H PRN Wheezing 02/19/21 07/05/23 aerosol inhaler melatonin 5 mg tablet 5 mg PO BEDTIME 02/19/21 07/05/23 entecavir 0.5 mg tablet 0.5 mg PO DAILY 05/18/21 07/05/23 escitalopram oxalate 10 mg tablet 20 mg PO DAILY 05/18/21 07/05/23 metoprolol succinate 100 mg 100 mg PO BID 05/19/21 07/05/23 tablet,extended release 24 hr amlodipine 5 mg tablet 10 mg PO DAILY 01/04/22 07/05/23 omeprazole 10 mg capsule,delayed 10 mg PO DAILY 03/01/23 07/05/23 release Previous Rx's Medication Instructions Recorded ezetimibe 10 mg tablet (Zetia) 10 mg PO DAILY 90 days #90 tabs 11/26/20 atorvastatin 80 mg tablet 80 mg PO BEDTIME 30 days #30 tabs 02/12/21 hydralazine 50 mg tablet 50 mg PO BEDTIME #90 tabs 04/07/21 insulin aspart U-100 100 unit/mL 15 unit (0.15 mL) subcut TIDWMEAL 05/31/23 (3 mL) subcutaneous pen (Novolog 30 days #15 mL FlexPen U-100 Insulin aspart) insulin degludec 100 unit/mL (3 45 unit (0.45 mL) subcut BEDTIME 05/31/23 mL) subcutaneous pen (Tresiba 30 days #15 mL FlexTouch U-100 insulin) ticagrelor 60 mg tablet (Brilinta) 60 mg PO BID #60 tabs 07/05/23 glucagon 3 mg/actuation nasal 3 mg intranasal ONCE #2 ea 09/21/23 spray (Baqsimi) semaglutide 0.25 mg or 0.5 mg (2 0.5 mg (0.736 mL) subcut QWEEK #3 09/21/23 mg/3 mL) subcutaneous pen injector mL (Ozempic) Allergies Allergy/AdvReac Type Severity Reaction Status Date / Time No Known Allergies Allergy Verified 09/21/23 07:57 Review of Systems Review of Systems: Pertinent positives and negatives as stated in HPI [facility] Past Medical History Source: nursing notes reviewed Medical History Uncontrolled diabetes mellitus with hyperglycemia History of stent insertion of renal artery CAD (coronary artery disease) Carotid artery disease Pituitary adenoma Cerebral microvascular disease Multiple cerebral infarctions Left hemiparesis CKD (chronic kidney disease) stage 3, GFR 30-59 ml/min AAA (abdominal aortic aneurysm) Left renal artery stenosis Hypertensive urgency CKD (chronic kidney disease) stage 3, GFR 30-59 ml/min Peroneal neuropathy Hypertension Encounter for loop recorder check Stroke due to stenosis of right carotid artery Stroke Status post placement of implantable loop recorder CVA (cerebral vascular accident) TIA (transient ischemic attack) Vitamin D deficiency Pituitary macroadenoma HLD (hyperlipidemia) HTN (hypertension) T1DM (type 1 diabetes mellitus) Surgical History History of heart artery stent History of carotid endarterectomy Family History Family History Father CVD (cardiovascular disease) AAA (abdominal aortic aneurysm) Mother No problems noted. Social History Social History Household Members: Spouse and Family Housing: House Do you presently have visiting nurse or other home services: Yes Alcohol intake: never Comment: bed rest, unable to ambulate per md Patient Tobacco Use Status: Former Tobacco user Quit Date: December 2020 Tobacco use type: Cigarette Years Smoked: 50+ Smoked in Last 30 Days: No Second Hand Smoke Exposure: No Use of substances other than those prescribed or required for medical reasons: No Advance Directives: Yes Advance Directives Information Provided: No Advance Directives on File: No service: No Current occupational status: unemployed and retired Physical Exam Vital Signs: Vital Signs: Last Vital Signs Temp 98.9 F 11/26/23 14:20 Pulse 83 11/26/23 14:20 Resp 16 11/26/23 14:20 BP 143/71 H 11/26/23 14:20 Pulse Ox 97 11/26/23 14:20 O2 Del Method Room Air 11/26/23 14:20 BMI result Body Mass Index 21.4 VITAL SIGNS: Reviewed. GENERAL: Well developed, well nourished, in no acute distress. HEAD: Normocephalic/atraumatic EYES: PERRLA, EOMI EARS: Ext canals without abnormality NOSE: Nares patent bilateral OROPHARYNX: no oral lesions noted, posterior pharynx clear NECK: C-collar without midline cervical spine tenderness to palpation or step- offs noted. LUNGS: Normal breath sounds. No adventitious sounds or accessory muscle use. SpO2<97> CARDIOVASCULAR: Regular rate and rhythm without noted murmurs ABDOMEN: Soft, non-tender, non-distended with bowel sounds. PELVIS: Nontender, stable MUSCULOSKELETAL: No tenderness, deformities, or effusions noted on gross in spection. EXTREMITIES: No cyanosis, clubbing or edema. LEFT KNEE: Superficial abrasions SKIN: Inspection of the skin reveals no rashes NEUROLOGIC: Alert and oriented x 4. Strength and sensation to light touch were grossly intact x 4. Medical Decision Making Medical Decision Making MDM Narrative: 72-year-old male with history and clinical presentation, DDX: Fall on Brilinta and will evaluate head and neck otherwise pelvis seems stable and patient is also noted to be a diabetic. I reviewed all investigations and CT of the head is negative for intracranial hemorrhage or mass effect, cervical spine negative for acute fracture or subluxation. X-ray of the left foot not significant for any fracture or dislocation. C-collar was discontinued and will provide patient with ambulation trial to evaluate gait. I have been informed that patient is ambulating with a steady gait without diz ziness or headache and is otherwise discharged home. Differential Diagnosis Differential Diagnoses: The differential diagnosis associated with the presentation includes Please see the discussion above Admission/Observation Consideration of admission/observation: Escalation of care including admission/observation considered Please see the discussion above Lab Data Labs: Lab Results 11/26/23 Range/Units 16:53 POC Glucose 167 H (60-115) mg/dL Radiology Impression Discussion of test interpretation with radiology: I have reviewed the radiologist's reading. Radiologist Impression: Please see the discussion above External Record Review External record reviewed: Outpatient record, Prior outpatient labs and Prior outpatient radiology Chronic Conditions Patient?s care impacted by: Diabetes and Hypertension Critical Care Time Critical Care Time Critical Care Time: Yes Total Critical Care Time: 30 Attestation: I personally attest to this time spent taking care of the patient. Discharge Plan Discharge Clinical Impression: Fall Patient Disposition: Home, Self-Care Instructions: Fall Prevention for Older Adults (ED) Additional Instructions: 1. Resume all home medications as prescribed. 2. Please follow-up with your primary care doctor on Monday morning for re- evaluation further outpatient management. Return to the ER for any worsening symptoms. Prescriptions: No Action ezetimibe [Zetia] 10 mg tablet 10 mg PO DAILY 90 Days Qty: 90 1RF atorvastatin 80 mg tablet 80 mg PO BEDTIME 30 Days Qty: 30 11RF insulin aspart U-100 [Novolog FlexPen U-100 Insulin] 100 unit/mL (3 mL) insulin pen 15 unit subcut TIDWMEAL 30 Days Qty: 15 6RF insulin degludec [Tresiba FlexTouch U-100] 100 unit/mL (3 mL) insulin pen 45 unit subcut BEDTIME 30 Days Qty: 15 6RF dorzolamide-timolol 22.3-6.8 mg/mL Drops 1 drp OPHTHALMIC (EYE) BID hydralazine 50 mg Tablet 50 mg PO BEDTIME Qty: 90 0RF Protocol: Hold for SBP< HOLD for SBP < : 90 albuterol sulfate 90 mcg/actuation Hfa Aerosol Inhaler 2 puff INHALATION Q4H PRN (Reason: Wheezing) melatonin 5 mg Tablet 5 mg PO BEDTIME escitalopram oxalate 10 mg tablet 20 mg PO DAILY entecavir 0.5 mg tablet 0.5 mg PO DAILY metoprolol succinate 100 mg tablet extended release 24 hr 100 mg PO BID amlodipine 5 mg tablet 10 mg PO DAILY latanoprost [Xalatan] 0.005 % drops 1 drp ophthalmic (eye) BEDTIME cholecalciferol (vitamin D3) 50 mcg (2,000 unit) capsule 50 mcg PO DAILY aspirin 81 mg tablet,delayed release (DR/EC) 81 mg PO DAILY Brilinta 60 mg tablet 60 mg PO BID Qty: 60 11RF omeprazole 10 mg capsule,delayed release(DR/EC) 10 mg PO DAILY Ozempic 0.25 mg or 0.5 mg (2 mg/3 mL) pen injector 0.5 mg subcut QWEEK Qty: 3 5RF Baqsimi 3 mg/actuation spray,non-aerosol 3 mg intranasal ONCE Qty: 2 5RF Referrals: Afia Cabrera MD [Primary Care Provider] -
--- NOTE | 2023-11-26 16:55 | PC.NURSE ---
c-collar d/c'd by Dr. Nava. pt cleared to eat and drink. pt given cup of water and eating granola bar from friend. poc taken, 167. pt doing ambulation trial shannan. plan of care ongoing.
[2023-11-26 16:57] LABS: Glucose, Whole Blood 167 mg/dL (60-115)
[2023-11-26 17:20] VITALS: BP 144/67; PULSE 86; RESP 16; TEMP 37.1; O2SAT 97
== END 2023-11-26 17:35 | disposition home or self-care (01) ==
PROVIDERS: Emergency Provider Student in an Organized Health Care Education/Training Program; PCP Family Medicine
DX: S80.212A Abrasion, left knee, initial encounter (principal); R51.9 Headache, unspecified; M54.2 Cervicalgia; M79.672 Pain in left foot; X58.XXXA Exposure to other specified factors, initial encounter; Y93.9 Activity, unspecified; Y92.003 Bedroom of unspecified non-institutional (private) residence as the place of occurrence of the external cause; Y99.9 Unspecified external cause status; Z87.891 Personal history of nicotine dependence; Z79.899 Other long term (current) drug therapy
CPT/HCPCS: 70450; 72125; 73620; 82947; 99284

== ENCOUNTER 2023-12-04 19:39 | Emergency (ER) | payer MEDICARE, BC, SELFPAY ==
[2023-12-04 19:51] VITALS: BP 156/88; BP 157/69; PULSE 82; PULSE 84; RESP 16; TEMP 36.9; O2SAT 95; O2SAT 96; BMI 20.1
--- NOTE | 2023-12-04 20:24 | ED_ITS ---
HPI - Weakness General Chief complaint: Weakness Stated complaint: worsening lethargy, +covid on monday Time Seen by Provider: 12/04/23 20:02 Source: patient Mode of arrival: EMS Limitations: no limitations History of Present Illness HPI Narrative: Patient comes to the emergency room complaining of worsening weakness. Patient states that 6 days ago, he tested positive for COVID. Patient states that he has gradually become more weak. At baseline, patient is able to do his activities of daily living, walk. Today, patient was too weak to get out of the couch and needed assistance. Patient states that he lives with several family members. Patient states that he was here on November 26 for a fall. Patient states that since then, he is fallen twice at home. Patient states he did not hit his head or lost consciousness. Patient takes Brilinta. Patient denies any pain from the falls. Patient states that he only has significant weakness since he was diagnosed with COVID. Patient states he took a home test Related Data Home Medications Medication Instructions Recorded Confirmed aspirin 81 mg tablet,delayed 81 mg PO DAILY 09/10/20 07/05/23 release cholecalciferol (vitamin D3) 50 50 mcg PO DAILY 09/10/20 07/05/23 mcg (2,000 unit) capsule latanoprost 0.005 % eye drops 1 drp ophthalmic (eye) BEDTIME 09/10/20 07/05/23 (Xalatan) dorzolamide 22.3 mg-timolol 6.8 1 drp ophthalmic (eye) BID 01/12/21 07/05/23 mg/mL eye drops albuterol sulfate 90 mcg/actuation 2 puff inhalation Q4H PRN Wheezing 02/19/21 07/05/23 aerosol inhaler melatonin 5 mg tablet 5 mg PO BEDTIME 02/19/21 07/05/23 entecavir 0.5 mg tablet 0.5 mg PO DAILY 05/18/21 07/05/23 escitalopram oxalate 10 mg tablet 20 mg PO DAILY 05/18/21 07/05/23 metoprolol succinate 100 mg 100 mg PO BID 05/19/21 07/05/23 tablet,extended release 24 hr amlodipine 5 mg tablet 10 mg PO DAILY 01/04/22 07/05/23 omeprazole 10 mg capsule,delayed 10 mg PO DAILY 03/01/23 07/05/23 release Previous Rx's Medication Instructions Recorded ezetimibe 10 mg tablet (Zetia) 10 mg PO DAILY 90 days #90 tabs 11/26/20 atorvastatin 80 mg tablet 80 mg PO BEDTIME 30 days #30 tabs 02/12/21 hydralazine 50 mg tablet 50 mg PO BEDTIME #90 tabs 04/07/21 insulin aspart U-100 100 unit/mL 15 unit (0.15 mL) subcut TIDWMEAL 05/31/23 (3 mL) subcutaneous pen (Novolog 30 days #15 mL FlexPen U-100 Insulin aspart) insulin degludec 100 unit/mL (3 45 unit (0.45 mL) subcut BEDTIME 05/31/23 mL) subcutaneous pen (Tresiba 30 days #15 mL FlexTouch U-100 insulin) ticagrelor 60 mg tablet (Brilinta) 60 mg PO BID #60 tabs 07/05/23 glucagon 3 mg/actuation nasal 3 mg intranasal ONCE #2 ea 09/21/23 spray (Baqsimi) semaglutide 0.25 mg or 0.5 mg (2 0.5 mg (0.736 mL) subcut QWEEK #3 09/21/23 mg/3 mL) subcutaneous pen injector mL (Ozempic) Allergies Allergy/AdvReac Type Severity Reaction Status Date / Time No Known Allergies Allergy Verified 09/21/23 07:57 Review of Systems 2 Review of Systems: Constitutional : No Weight loss, No Fever, No Chills, No Night Sweats, complaining of fatigue and weakness ENT/Mouth : No Hearing loss, No Ear Pain, No Nasal Congestion, No Sinus Pain, No Hoarseness, No sore throat, No Rhinorrhea, No Swallowing Difficulty Eyes: No Eye Pain, No Swelling, No Redness, No Foreign Body, No Discharge, No Vision Changes Cardiovascular : No Chest Pain, No SOB, No Dyspnea on Exertion, No Orthopnea, No Edema, No Palpitations Respiratory : No Cough, No Sputum, No Wheezing, No Smoke Exposure, No Dyspnea Gastrointestinal : No Nausea, No Vomiting, No Diarrhea, No Constipation, No abdominal Pain, No Hematochezia, No Melena Genitourinary : no irregular bleeding, No Dysuria, No Urinary Frequency, No Hematuria, No Urinary Incontinence, No Urgency, No Flank Pain, No Urinary Flow Changes, No Hesitancy Musculoskeletal : No joint pain, No Myalgias, No Joint Swelling Skin : No Skin Lesions, No rash Neuro : No Weakness, No Numbness, No Paresthesias, No Loss of Consciousness, No Dizziness, No Headache Psych : No Anxiety/Panic, No Depression, No SI/HI/AH/VH, No Social Issues, Heme/Lymph: No Bruising, No Bleeding,No Lymphadenopathy Endocrine : No Polyuria, No Polydipsia, No Temperature Intolerance [facility]LY [facility] Past Medical History Medical History Uncontrolled diabetes mellitus with hyperglycemia History of stent insertion of renal artery CAD (coronary artery disease) Carotid artery disease Pituitary adenoma Cerebral microvascular disease Multiple cerebral infarctions Left hemiparesis CKD (chronic kidney disease) stage 3, GFR 30-59 ml/min AAA (abdominal aortic aneurysm) Left renal artery stenosis Hypertensive urgency CKD (chronic kidney disease) stage 3, GFR 30-59 ml/min Peroneal neuropathy Hypertension Encounter for loop recorder check Stroke due to stenosis of right carotid artery Stroke Status post placement of implantable loop recorder CVA (cerebral vascular accident) TIA (transient ischemic attack) Vitamin D deficiency Pituitary macroadenoma HLD (hyperlipidemia) HTN (hypertension) T1DM (type 1 diabetes mellitus) Surgical History History of heart artery stent History of carotid endarterectomy Family History Family History Father CVD (cardiovascular disease) AAA (abdominal aortic aneurysm) Mother No problems noted. Social History Social History Household Members: Spouse and Family Housing: House Do you presently have visiting nurse or other home services: Yes Alcohol intake: never Comment: bed rest, unable to ambulate per md Patient Tobacco Use Status: Former Tobacco user Quit Date: December 2020 Tobacco use type: Cigarette Years Smoked: 50+ Second Hand Smoke Exposure: No Advance Directives: No Advance Directives Information Provided: No service: No Current occupational status: unemployed and retired Physical Exam 2 Vital Signs: Vital Signs: Last Vital Signs Temp 98.5 F 12/04/23 19:51 Pulse 84 12/04/23 19:51 Resp 16 12/04/23 19:51 BP 157/69 H 12/04/23 19:51 Pulse Ox 96 12/04/23 19:51 O2 Del Method Room Air 12/04/23 19:51 BMI result Body Mass Index 20.1 Const: Other: Appearance: Alert. Oriented X3. No acute distress. Eyes: Pupils equal, round and reactive to light. ENT: Pharynx normal. Neck: Normal inspection. Neck supple. No lymph nodes noted. No crepitus CVS: Normal heart rate and rhythm. Pulses normal. Normal S1 and S2 Respiratory: No respiratory distress. Breath sounds normal. No Wheezing. No rales Abdomen: Soft and nontender. No rigidity. No distention. Skin: Skin warm and dry. Normal skin color. Normal skin turgor. Extremities: No lower extremity edema. No Lacerations. No Rash Neuro: Oriented X 3. No motor deficit. No sensory deficit. Moving all extremities. No slurred speech. CN 2 through 12 grossly intact Psych: calm, cooperative, normal affect Course Course Course Narrative: All of patient's labs pending Ambulation trial pending Medications Administered Discontinued Medications Generic Name Dose Route Start Last Admin Trade Name Freq PRN Reason Stop Dose Admin Sodium Chloride 1,000 mls @ 999 mls/hr 12/04/23 21:45 12/04/23 22:16 Ns IVCONT 12/04/23 22:45 999 mls/hr .Q1H1M ONE Administration Insulin Human Regular 10 unit 12/04/23 21:45 12/04/23 22:16 Insulin Regular, Human 100 Unit/Ml 3 Ml Vial IVPUSH 12/04/23 21:46 10 unit ONCE ONE Administration Medical Decision Making Medical Decision Making [facility] Narrative: My interpretation of labs: Normal Hematology, at baseline, creatinine a bit elevated, glucose 397, LFTs normal, UTI negative for infection, serology negative for COVID and influenza -patient was given IV fluids and insulin -patient was ambulated with a cane which she uses at baseline, patient was able to walk unassisted to the bathroom. -patient likely weak, recovering from COVID, today tested negative -however, patient states that he feels unsafe going home. Patient lives with an extended family, states that nobody can help him. Patient states that he has trouble in the morning getting out of bed and that is when he falls usually. Patient blood glucose 150 at this time, patient asymptomatic, other than feeling weakness and scared to go home -physical therapy and Case Management consult pending -physician observation started at 23:20 Differential Diagnosis Differential Diagnoses: The differential diagnosis associated with the presentation includes (COVID, UTI, decompensation) Admission/Observation Consideration of admission/observation: Escalation of care including admission/observation considered (Given patient's labs and presentation, patient considered) Lab Data MDM Lab Attestation statement: I reviewed the patient's lab results. 12/04/23 20:51 12/04/23 20:51 Labs: Lab Results 12/04/23 12/04/23 Range/Units 20:51 22:23 WBC 10.2 (4.8-10.8) X10*3/uL RBC 4.18 L (4.60-5.80) X10*6/uL Hgb 12.2 L (14.0-18.0) g/dl Hct 35.3 L (42.0-52.0) % MCV 84.4 (80.0-98.0) fL MCH 29.2 (27.0-33.0) pg MCHC 34.6 (31.0-36.0) g/dl RDW 13.2 (11.0-16.0) % Plt Count 326 D (160-400) X10*3/uL MPV 8.5 L (9.4-12.4) fL Immature Gran % (Auto) 0.4 (0.0-0.4) % Neut % (Auto) 70.8 (45-73) % Lymph % (Auto) 9.7 L (20-40) % [place] % (Auto) 18.1 H (2-11) % Eos % (Auto) 0.6 (0-4) % Baso % (Auto) 0.4 (0-2) % Lymph # (Auto) 1.0 L (1.2-4.9) X10*3/uL [place] # (Auto) 1.8 H (0.1-1.2) X10*3/uL Eos # (Auto) 0.1 (0.0-0.4) X10*3/uL Baso # (Auto) 0.0 (0.0-0.2) X10*3/uL Abs Immat Gran (auto) 0.04 H (0.00-0.03) X10*3/uL Absolute Neuts (auto) 7.2 (2.0-8.3) x10*3/uL Absolute Nucleated RBC 0.000 (0.0-0.012) X10*3/uL Nucleated RBC % (auto) 0.0 (0.0-0.2) /100WBC Smear Tech's Comments VERIFIED Sodium 132 L (135-145) mmol/L Potassium 3.5 (3.3-5.1) mmol/L Chloride 97 (96-108) mmol/L Carbon Dioxide 22 (22-29) mmol/L Anion Gap 17 (12-20) BUN 13 (9-16) mg/dL Creatinine 1.62 H (0.5-1.4) mg/dL Estim Creat Clear Calc 35.4 Estimated GFR 42 Random Glucose 397 H* (60-115) mg/dL Calcium 9.0 D (8.4-10.2) mg/dL Total Bilirubin 0.6 (0.0-1.0) mg/dL AST 18 (5-37) U/L ALT 14 (0-40) U/L Alkaline Phosphatase 81 (39-117) U/L Total Protein 7.4 (6.5-8.0) g/dL Albumin 3.5 (3.5-5.0) g/dL Beta-Hydroxybutyrate 0.24 (0.02-0.27) mmol/L Urine Color Yellow Urine Appearance Clear Urine pH 6.5 (5.0-9.0) Ur Specific [place] 1.025 (1.005-1.025) Urine Protein 100 (2+) H (Neg-Trace) mg/dL Urine Glucose (UA) >=1000 H (Negative) mg/dL Urine Ketones Negative (Negative) mg/dL Urine Blood Moderate (2+) H (Negative) Urine Nitrite Negative (Negative) Ur Leukocyte Esterase Negative (Negative) Urine RBC 0-2 (0-2) /HPF Urine WBC 0-5 (0-5) /HPF Ur Squamous Epith Cells 0-2 (0-2) /HPF Urine Bacteria None Seen (None Seen) Hyaline Casts 0-2 (0-2) /LPF COVID-19 (JOSR) Negative (Negative) COVID-19 Clin Com See Note Influenza Type A (TATO) Negative (Negative) Influenza Type B (TATO) Negative (Negative) Influenza A & B Note See Note Critical Care Time Critical Care Time Critical Care Time: Yes Total Critical Care Time: 60 Attestation: I have personally provided critical care time. Time includes review of lab data, radiology results, discussion with consultants, and monitoring for potential decompensation. Intervention performed as documented. Discharge Plan Discharge Clinical Impression: Acute hyperglycemia, Weakness Patient Disposition: Still a Patient Prescriptions: No Action ezetimibe [Zetia] 10 mg tablet 10 mg PO DAILY 90 Days Qty: 90 1RF atorvastatin 80 mg tablet 80 mg PO BEDTIME 30 Days Qty: 30 11RF insulin aspart U-100 [Novolog FlexPen U-100 Insulin] 100 unit/mL (3 mL) insulin pen 15 unit subcut TIDWMEAL 30 Days Qty: 15 6RF insulin degludec [Tresiba FlexTouch U-100] 100 unit/mL (3 mL) insulin pen 45 unit subcut BEDTIME 30 Days Qty: 15 6RF dorzolamide-timolol 22.3-6.8 mg/mL Drops 1 drp OPHTHALMIC (EYE) BID hydralazine 50 mg Tablet 50 mg PO BEDTIME Qty: 90 0RF Protocol: Hold for SBP< HOLD for SBP < : 90 albuterol sulfate 90 mcg/actuation Hfa Aerosol Inhaler 2 puff INHALATION Q4H PRN (Reason: Wheezing) melatonin 5 mg Tablet 5 mg PO BEDTIME escitalopram oxalate 10 mg tablet 20 mg PO DAILY entecavir 0.5 mg tablet 0.5 mg PO DAILY metoprolol succinate 100 mg tablet extended release 24 hr 100 mg PO BID amlodipine 5 mg tablet 10 mg PO DAILY latanoprost [Xalatan] 0.005 % drops 1 drp ophthalmic (eye) BEDTIME cholecalciferol (vitamin D3) 50 mcg (2,000 unit) capsule 50 mcg PO DAILY aspirin 81 mg tablet,delayed release (DR/EC) 81 mg PO DAILY Brilinta 60 mg tablet 60 mg PO BID Qty: 60 11RF omeprazole 10 mg capsule,delayed release(DR/EC) 10 mg PO DAILY Ozempic 0.25 mg or 0.5 mg (2 mg/3 mL) pen injector 0.5 mg subcut QWEEK Qty: 3 5RF Baqsimi 3 mg/actuation spray,non-aerosol 3 mg intranasal ONCE Qty: 2 5RF
[2023-12-04 21:00] LABS: Basophils Percent Auto 0.4 % (0-2); Eosinophils Absolute Auto 0.1 X10*3/uL (0.0-0.4); Eosinophils Percent Auto 0.6 % (0-4); Hematocrit 35.3 % (42.0-52.0); Hemoglobin 12.2 g/dl (14.0-18.0); Imm Gran Abs Auto 0.04 X10*3/uL (0.00-0.03); Imm Gran Pct Auto 0.4 % (0.0-0.4); Lymphocytes Percent Auto 9.7 % (20-40); MANUAL DIFF FLAG SCAN; Mean Corpuscular HGB Conc 34.6 g/dl (31.0-36.0); Mean Corpuscular Hemoglobin 29.2 pg (27.0-33.0); Mean Corpuscular Volume 84.4 fL (80.0-98.0); Mean Platelet Volume 8.5 fL (9.4-12.4); Monocytes Absolute Auto 1.8 X10*3/uL (0.1-1.2); Monocytes Percent Auto 18.1 % (2-11); Neutrophils Absolute Auto 7.2 x10*3/uL (2.0-8.3); Neutrophils Percent Auto 70.8 % (45-73); Platelet Count 326 X10*3/uL (160-400); Red Blood Count 4.18 X10*6/uL (4.60-5.80); Red Cell Distribution Width 13.2 % (11.0-16.0); SCAN SMEAR FLAG 1; White Blood Count 10.2 X10*3/uL (4.8-10.8)
[2023-12-04 21:15] LABS: Beta-Hydroxybutyrate 0.24 mmol/L (0.02-0.27)
[2023-12-04 21:16] LABS: COVID-19 Test Negative (Negative); IDNOW Serial# 08D9AD1C; IDNOW Serial# 152EDE1D; Influenza A Negative (Negative); Influenza B2 Negative (Negative)
[2023-12-04 21:18] LABS: Alanine Aminotransferase 14 U/L (0-40); Albumin Level 3.5 g/dL (3.5-5.0); Alkaline Phosphatase 81 U/L (39-117); Anion Gap 17 (12-20); Aspartate Amino Transferase 18 U/L (5-37); Bilirubin Total 0.6 mg/dL (0.0-1.0); Blood Urea Nitrogen 13 mg/dL (9-16); Carbon Dioxide 22 mmol/L (22-29); Chloride 97 mmol/L (96-108); Creatinine Clr Calc Pharmacy 35.4; Estimated Glomerular Filt Rate 42; Glucose Random 397 mg/dL (60-115); Potassium 3.5 mmol/L (3.3-5.1); Sodium 132 mmol/L (135-145); Total Protein 7.4 g/dL (6.5-8.0)
[2023-12-04 21:20] LABS: SLIDE REVIEW VERIFIED
[2023-12-04] MEDS: 0.9 % Sodium Chloride 1,000 ML 999 ML IVCONT (22:16)
[2023-12-04] MEDS: Insulin Regular, Human 100 UNIT/ML 3 ML VIAL 10 UNIT IVPUSH (22:16)
[2023-12-04 22:30] LABS: Appearance Urine Clear; Color Urine Yellow; Glucose Urine UA >=1000 mg/dL (Negative); Leukocyte Esterase Urine Negative (Negative); Nitrite Urine Negative (Negative); PH 6.5 (5.0-9.0); Specific Gravity - Urine 1.025 (1.005-1.025); UMIC TRIGGER UACC YES; Urine Blood Moderate (2+) (Negative); Urine Ketones Negative (Negative); Urine Protein 100 (2+) mg/dL (Neg-Trace)
[2023-12-04 22:37] LABS: Bacteria Urine None Seen (None Seen); Hyaline Casts Urine 0-2 /LPF (0-2); RBC Urine 0-2 /HPF (0-2); Squamous Epithelial Cell Urine 0-2 /HPF (0-2); WBC Urine 0-5 /HPF (0-5)
--- NOTE | 2023-12-04 23:17 | PC.NURSE ---
Pt able to ambulate to the restroom with minimal assistance. Reports ambulates with a cane at home. made aware.
[2023-12-04 23:29] LABS: Glucose, Whole Blood 150 mg/dL (60-115)
[2023-12-05 01:53] VITALS: BP 148/63; PULSE 79; TEMP 37.6; O2SAT 95
[2023-12-05] MEDS: Magnesium Hydrox/Alum Hydrox 30 ML ORAL.SUSP PO (02:09)
--- NOTE | 2023-12-05 02:09 | PC.NURSE ---
Pt reports upset stomach and is requesting maalox. made aware. Verbal order received and entered in the MAR. Pt medicated PO and tolerated well.
--- NOTE | 2023-12-05 04:06 | PC.NURSE ---
Med req completed.
[2023-12-05 07:25] LABS: Glucose, Whole Blood 226 mg/dL (60-115)
[2023-12-05 08:20] VITALS: BP 142/68; PULSE 81; RESP 14; TEMP 37; O2SAT 95
--- NOTE | 2023-12-05 08:48 | PC.NURSE ---
PT IS A/O X 4 NO SOB/NADEEN NOTED SPEAKS IN FULL SENTENCES. AMB (1) WITH ASSIST FROM P (JUAN DANIEL). PT TO GO TO REHAB PER PHYSICAL THERAPIST. PT DENIES ANY PAIN/DISC. PT AWARE OF PLAN OF CARE. PT ATE BREAKFAST. WILL CONITNUE TO MONITOR.
--- NOTE | 2023-12-05 15:07 | PHA.MEDREC ---
Pharmacy Consult ? Medication Reconciliation Pharmacy has reviewed the medication reconciliation completed by [employer]. information services tech, [employer], spoke with patient. Patient reports he get his brillinta and entecavir from [facility]. Dorzalamide it once a day instead of twice a day. Salud Bravo, PharmD
--- NOTE | 2023-12-05 17:46 | MHC.CM.ED ---
Cm met with patient. Pt had covid 6 daysd ago, but is negative now. Lives alone. Was driving. Independent. Uses a cane. Has no home services. Lives with his sister and her family. Has help at home. PCP is at [facility]. PT is recommending acute rehab. Pt has been at [facility] in the past. [facility] is reviewing. Pt will stay overnight in the ED. CM will follow for discharge planning.
[2023-12-05 17:57] VITALS: BP 166/75; PULSE 91; RESP 20; TEMP 37; O2SAT 96
[2023-12-05] MEDS: Escitalopram Oxalate 20 MG TABLET PO (18:04)
[2023-12-05] MEDS: Cholecalciferol (Vitamin D3) 25 MCG TABLET 50 MCG PO (18:04)
[2023-12-05] MEDS: Aspirin Enteric Coated 81 MG TABLET.DR PO (18:04)
[2023-12-05] MEDS: Ezetimibe 10 MG TABLET PO (18:04)
[2023-12-05] MEDS: amLODIPine Besylate 10 MG TABLET PO (18:04)
[2023-12-05] MEDS: Loratadine 10 MG TABLET PO (18:05)
[2023-12-05 18:14] LABS: Glucose, Whole Blood 302 mg/dL (60-115)
[2023-12-05] MEDS: Insulin Lispro 100 UNIT/ML 3 ML VIAL SUBCUT ×2 (18:15→21:58)
[2023-12-05] MEDS: Metoprolol Succinate ER 100 MG TAB.ER.24H PO (21:53)
[2023-12-05] MEDS: Melatonin 3 MG TABLET 6 MG PO (21:54)
[2023-12-05] MEDS: Insulin Glargine,Hum.rec.anlog 100 UNIT/ML 10 ML VIAL 22 UNIT SUBCUT (21:54)
[2023-12-05] MEDS: Atorvastatin Calcium 80 MG TABLET PO (21:54)
[2023-12-05] MEDS: hydrALAZINE HCl 50 MG TABLET PO (21:54)
[2023-12-05 22:00] LABS: Glucose, Whole Blood 239 mg/dL (60-115)
--- NOTE | 2023-12-05 23:12 | PC.NURSE ---
late entry - pt medicated per dec with bedtime medications - swallowed pills whole with water no issues,. insulin administered per ss. pt offers no current complaints, resting comfortably on stretcher, respirations even and unlabored. plan for care management bed search. call [facility] within reach
[2023-12-06 00:03] VITALS: BP 148/70; PULSE 72; RESP 16; TEMP 36.7; O2SAT 94
[2023-12-06 06:29] VITALS: BP 166/75; PULSE 74; RESP 14; TEMP 36.9; O2SAT 96
[2023-12-06 07:37] LABS: Glucose, Whole Blood 198 mg/dL (60-115)
[2023-12-06 07:59] VITALS: BP 120/53; PULSE 77; RESP 16; O2SAT 96
[2023-12-06] MEDS: Omeprazole 20 MG CAPSULE.DR PO (08:01)
[2023-12-06] MEDS: Loratadine 10 MG TABLET PO (08:01)
[2023-12-06] MEDS: Cholecalciferol (Vitamin D3) 25 MCG TABLET 50 MCG PO (08:01)
[2023-12-06] MEDS: Insulin Lispro 100 UNIT/ML 3 ML VIAL SUBCUT ×3 (08:01→20:57)
[2023-12-06] MEDS: Ezetimibe 10 MG TABLET PO (08:01)
[2023-12-06] MEDS: Escitalopram Oxalate 20 MG TABLET PO (08:01)
[2023-12-06] MEDS: Metoprolol Succinate ER 100 MG TAB.ER.24H PO ×2 (08:01→20:48)
[2023-12-06] MEDS: amLODIPine Besylate 10 MG TABLET PO (08:01)
[2023-12-06] MEDS: Aspirin Enteric Coated 81 MG TABLET.DR PO (08:01)
--- NOTE | 2023-12-06 08:06 | PC.NURSE ---
Resumed care of patient, he is currently A/Ox4. Offers no complaints of pain, is currently resting breakfast at bedside, pt states he is not very hungry but will let staff leave it at bedside incase he changes his mind. Pt took medications with no conerns. All needs met at this time, call [facility] within reach
[2023-12-06 13:25] LABS: Glucose, Whole Blood 141 mg/dL (60-115)
[2023-12-06 15:56] VITALS: BP 133/64; PULSE 70; RESP 16; TEMP 36.2; O2SAT 98
--- NOTE | 2023-12-06 16:06 | MHC.EDTECH ---
THIS PCT ASSUMED CARE OF PATIENT ,VITALS TAKEN ,PT WAS CLEAN UP AND REPOSITION IN BED .
--- NOTE | 2023-12-06 16:46 | MHC.CM.ED ---
CM notified patient that [facility] has accepted him for 12/07. BLS transport booked for 12 noon. Patient and primary nurse aware. Pt will be moved to overflow
[2023-12-06 18:12] LABS: Glucose, Whole Blood 224 mg/dL (60-115)
--- NOTE | 2023-12-06 18:45 | PC.NURSE ---
pt brought over from the ED, patient a&ox3, respirations equal and non labored, pt currently denying pain/discomfort, poc obtained pt medicated per order, call [facility] within reach, will continue to monitor.
[2023-12-06] MEDS: Melatonin 3 MG TABLET 6 MG PO (20:47)
[2023-12-06] MEDS: hydrALAZINE HCl 50 MG TABLET PO (20:47)
[2023-12-06] MEDS: Atorvastatin Calcium 80 MG TABLET PO (20:48)
[2023-12-06] MEDS: Insulin Glargine,Hum.rec.anlog 100 UNIT/ML 10 ML VIAL 22 UNIT SUBCUT (20:48)
[2023-12-06 20:53] LABS: Glucose, Whole Blood 258 mg/dL (60-115)
[2023-12-06 21:04] VITALS: BP 146/68; PULSE 76; RESP 18; TEMP 36.8; O2SAT 95
[2023-12-06] MEDS: Latanoprost 0.005 % Ophth Sol 2.5 ML DROPS 1 DROP EYE-BOTH (21:39)
[2023-12-07 06:00] VITALS: BP 138/65; PULSE 82; RESP 18; TEMP 37.2; O2SAT 93
[2023-12-07] MEDS: Omeprazole 20 MG CAPSULE.DR PO (06:14)
[2023-12-07 07:44] LABS: Glucose, Whole Blood 244 mg/dL (60-115)
[2023-12-07] MEDS: Insulin Lispro 100 UNIT/ML 3 ML VIAL SUBCUT (07:59)
[2023-12-07] MEDS: Ezetimibe 10 MG TABLET PO (08:00)
[2023-12-07] MEDS: amLODIPine Besylate 10 MG TABLET PO (08:00)
[2023-12-07] MEDS: Metoprolol Succinate ER 100 MG TAB.ER.24H PO (08:00)
[2023-12-07] MEDS: Loratadine 10 MG TABLET PO (08:00)
[2023-12-07] MEDS: Cholecalciferol (Vitamin D3) 25 MCG TABLET 50 MCG PO (08:00)
[2023-12-07] MEDS: Aspirin Enteric Coated 81 MG TABLET.DR PO (08:00)
[2023-12-07] MEDS: Escitalopram Oxalate 20 MG TABLET PO (08:00)
--- NOTE | 2023-12-07 10:11 | MHC.EDTECH ---
patient was washed up and teeth brushed and reposition to the recliner
--- NOTE | 2023-12-07 10:30 | MHC.EDTECH ---
patient had a complete bed change and was in the recliner since 8:33am and wanted to be back to bed@10:31
--- NOTE | 2023-12-07 11:25 | PC.NURSE ---
assumed care of pt at 1100, EMS arrived at 1120 for transport, IV removed.
--- NOTE | 2023-12-07 11:28 | PC.NURSE ---
attempted to call in RN-RN report to [facility], no answer.
== END 2023-12-07 11:29 | disposition skilled nursing facility (03) ==
PROVIDERS: Emergency Provider Emergency Medicine
DX: E11.65 Type 2 diabetes mellitus with hyperglycemia (principal); R53.1 Weakness; R26.2 Difficulty in walking, not elsewhere classified; Z87.891 Personal history of nicotine dependence; Z79.899 Other long term (current) drug therapy; Z11.52 Encounter for screening for COVID-19; Z79.4 Long term (current) use of insulin
CPT/HCPCS: 36415; 80053; 81001; 82010; 82947; 85025; 87502; 87635; 96361; 96374; 97162; 99285

== ENCOUNTER 2024-01-02 08:48 | Outpatient (AMB) | payer MEDICARE, BC, SELFPAY ==
--- NOTE | 2024-01-02 08:50 | MHC.OFFVIS ---
Intake Vital Signs 01/02/24 08:55 Height 5 ft 8 in Weight 136 lb 0.403 oz BMI 20.7 BP 112/52 L Blood Pressure Location Rt brachial Position Sitting Pulse 66 Pulse Source Pulse Oximeter Intake Visit Reasons: dm-confirmed Intake Note: Patient present today to follow up on Type 2 Diabetes Mellitus. Last Diabetic Eye exam: 09/2023 Last Podiatry Visit: Doesn't have one. Random Glucose: 109 mg/dl HgA1C: 9.8% Steam Setter Required: No Accompanied by: Self / Same As Patient Allergies No Known Allergies Allergy (Verified 01/02/24 08:58) Medication List - Last Reconciled 01/02/24 by Mikey Ramos MD albuterol sulfate 90 mcg/actuation 2 puffs inhalation Q4H PRN amlodipine 10 mg PO DAILY aspirin 81 mg PO DAILY atorvastatin 80 mg PO BEDTIME 30 days cetirizine 10 mg PO DAILY cholecalciferol (vitamin D3) 50 mcg PO DAILY dorzolamide-timolol 22.3-6.8 mg/mL 1 drp ophthalmic (eye) DAILY entecavir 0.5 mg PO DAILY escitalopram oxalate 20 mg PO DAILY ezetimibe (Zetia) 10 mg PO DAILY 90 days hydralazine 50 mg See Protocol PO BEDTIME insulin aspart U-100 (Novolog FlexPen U-100 Insulin aspart) 15 units (0.15 mL) subcut TIDWMEAL 30 days insulin degludec (Tresiba FlexTouch U-100 insulin) 32 units subcut BEDTIME latanoprost 0.005% (Xalatan) 1 drp ophthalmic (eye) BEDTIME melatonin 5 mg PO BEDTIME metoprolol succinate ER 100 mg PO BID omeprazole 20 mg PO DAILY ticagrelor 60 mg PO BID HPI HPI Comments History of Present Illness Details 73 year-old male with a past medical history of chronic hepatitis-B, type 1 diabetes, hypertension, HLD, and a Pituitary macroadenoma. He is seen in F/U today. He was previously followed by an gill box tender Dr. Enriquez in [facility] for his diabetes. The patient last saw Dr. Kenny on 03/01/2023 1) Pituitary Macroadenoma: In late January of 2019 he suffered a TIA and subsequently had CT head as well as MRI of the head MRI of the head revealed a 1.6 cm heterogenous pituitary macroadenoma with some depression of the floor of the sella there was no suprasellar extension. He was referred to Endocrinology and we evaluated pituitary function which revealed this to be a nonsecreting adenoma. Prolactin was WNL, dilution was also checked and Prolactin remained WNL with no evidence of hook effect. 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 He was also asked to see Ophtho Dr. Watkins for formal visual cherry. He did have these completed and there was evidence of some peripheral visual field loss on the R. He was referred to Dr. Johnston at [facility] for neurosurgical evaluation, who did recommend transphenoidal resection. Chandler preferred to have MRI repeated in 6 months from prior prior to making a decision regarding resection. He completed this 10/17/19 at [facility], and there was no significant change in the adenoma. He has been repeating these MRI's q 6-12 months and following with Dr. Johnston. His last was 12/16/2021 and he had a visit with Dr. Johnston in December of 2021. The recommendation was for transphenoidal surgery as the mass is enlarging, but Chandler preferred to wait longer and Dr. Kunz was on board with that. He had another MRI in May of 2022 which revealed the mass had grown slightly to 1.7 cm, but again was not encroaching on the optic apparatus. He has denied any headaches. Denies any galactorrhea or growth of breast tissue. Denies change in the size of the hands or the feet. Denies weight gain, development of violaceous striae. Denies any swelling within the neck or goiter formation. Denies tremors or palpitations. He denies any orthostatic symptoms. Denies any erectile dysfunction. Recent hormonal workup shows no secretion of pituitary hormones or deficiency. Recent MRI of the pituitary shows no change in the size the adenoma or encroachment on the optic chiasm 2) T2DM: He also has a history of ? T2DM. Current regimen of Tresiba 32 units qAM. He also uses Novolog 15 units AC. Tried Ozempic but had diaarhea He is not accurately counting carbohydrates. He does drink juice and does not give any insulin for this. Dexcom download shows he is using the sensor 93% of the time. Average glucose is 252 with standard deviation of 88. 25% range with 74% hyperglycemia and <1% hypoglycemia.. Pattern shows persistent hyperglycemia throughout the day Reports low sugars rarely. Treats lows according to the rule of 15's. Has eyes checked yearly, saw optho 09/2023 Denies retinopathy. Denies Neuropathy. No Nephropathy. He is off Lisinopril now per the recommendation of his Corking Machine Operator. UAC 73.2 04/15/2022. He developed orthostatic hypotension in 2020 and was having low BP with LEE/ARB so these were stopped. Has HLD, on Atorvastatin 80 mg PO daily and Zetia 10 mg PO daily. LDL 48 04/22/2022. Has history of CAD with triple vessel PTCA few years ago. He had a CVA in 2020.. He has had negative antibodies GAD65 as well as insulin autoantibodies the past Attending CDE. 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 MRI Brain: 01/14/2021 FINDINGS: There are multiple new or enlarging foci of restricted diffusion within the right cerebral hemisphere when compared to prior MR imaging from 01/12/2021. There are a few scattered punctate foci of susceptibility artifact within the right frontal, right occipital, and both parietal lobes. Intracranial vascular flow voids are grossly maintained. There are numerous foci of T2 FLAIR signal hyperintensity throughout the periventricular white matter, basal ganglia, and juan c that most likely represent a chronic manifestation of small vessel ischemia. No intracranial mass effect or midline shift. No abnormal extra-axial collection. Lateral and third ventricles are proportionate to the subarachnoid spaces. No hydrocephalus. There is an intrasellar mass causing smooth chronic remodeling and expansion of the sella turcica. Midline structures are otherwise unremarkable. No acute bone marrow signal changes. There is no mastoid middle ear effusion. Partial opacification of one of the right posterior ethmoids. Otherwise no active paranasal sinus disease. MR/MR head/brain wo con IMPRESSION: There are multiple new or worsening acute infarcts within the right cerebral hemisphere when compared to recent prior MR imaging from 01/12/2021. These findings are superimposed upon numerous chronic small vessel ischemic changes within the periventricular white matter, basal ganglia, and juan c. No intracranial mass effect. Labs: Laboratory Tests 03/10/22 04/15/22 04/15/22 10:24 10:30 10:30 Sodium 137 Potassium 4.7 Creatinine 2.13 H Estimated GFR 31 Hemoglobin A1c % 8.5 Triglycerides Cholesterol LDL Cholesterol Di rect LDL Cholesterol, C alc HDL Cholesterol 25-OH Vitamin D To ella TSH 1.59 Free T4 Total T3 FSH Luteinizing Hormon e Prolactin Undilute d Prolactin Diluted Total Testosterone Fr Testosterone Di efraín Sex Hormone Bind G lob Somatomedin-C PTH Intact 51 Calcium (PTH Intac t) 10.1 Random Cortisol ACTH Microalb/Creat Rat io 04/15/22 04/15/22 04/15/22 10:30 10:30 10:30 Sodium Potassium Creatinine Estimated GFR Hemoglobin A1c % Triglycerides Cholesterol LDL Cholesterol Di rect 55 LDL Cholesterol, C alc HDL Cholesterol 25-OH Vitamin D To ella 40.5 TSH Free T4 0.87 Total T3 122 FSH 8.6 H Luteinizing Hormon e 7.9 Prolactin Undilute d 5.7 Prolactin Diluted SEE NOTE Total Testosterone 388 Fr Testosterone Di efraín 48.1 Sex Hormone Bind G lob 41 Somatomedin-C 101 PTH Intact Calcium (PTH Intac t) Random Cortisol 16.4 ACTH Microalb/Creat Rat io 04/15/22 04/22/22 04/22/22 10:30 07:40 07:40 Sodium Potassium Creatinine Estimated GFR Hemoglobin A1c % Triglycerides 113 Cholesterol 96 LDL Cholesterol Di rect LDL Cholesterol, C alc 48 HDL Cholesterol 26 25-OH Vitamin D To ella TSH Free T4 Total T3 FSH Luteinizing Hormon e Prolactin Undilute d Prolactin Diluted Total Testosterone Fr Testosterone Di efraín Sex Hormone Bind G lob Somatomedin-C PTH Intact Calcium (PTH Intac t) Random Cortisol ACTH 34 Microalb/Creat Rat io 73.2 11/18/22 11/18/22 12/02/22 11:57 11:57 07:56 Sodium 138 Potassium 4.5 Creatinine 2.23 H Estimated GFR 29 Hemoglobin A1c % 8.8 Triglycerides Cholesterol LDL Cholesterol Di rect LDL Cholesterol, C alc HDL Cholesterol 25-OH Vitamin D To ella 37.0 TSH 1.94 Free T4 0.91 Total T3 FSH Luteinizing Hormon e Prolactin Undilute d Prolactin Diluted Total Testosterone Fr Testosterone Di efraín Sex Hormone Bind G lob Somatomedin-C PTH Intact Calcium (PTH Intac t) Random Cortisol ACTH Microalb/Creat Rat io 12/02/22 12/02/22 12/02/22 07:56 07:56 07:56 Sodium Potassium Creatinine Estimated GFR Hemoglobin A1c % Triglycerides Cholesterol LDL Cholesterol Di rect LDL Cholesterol, C alc HDL Cholesterol 25-OH Vitamin D To ella TSH Free T4 Total T3 121 FSH 9.7 H Luteinizing Hormon e 10.5 Prolactin Undilute d 8.0 Prolactin Diluted SEE NOTE Total Testosterone 328 Fr Testosterone Di efraín 59.7 Sex Hormone Bind G lob 38 Somatomedin-C 167 PTH Intact Calcium (PTH Intac t) Random Cortisol 17.7 ACTH 44 Microalb/Creat Rat io 02/28/23 02/28/23 10:31 10:31 Sodium 138 Potassium 4.3 Creatinine 2.03 H Estimated GFR 33 Hemoglobin A1c % 8.4 Triglycerides Cholesterol LDL Cholesterol Di rect LDL Cholesterol, C alc HDL Cholesterol 25-OH Vitamin D To ella TSH Free T4 Total T3 FSH Luteinizing Hormon e Prolactin Undilute d Prolactin Diluted Total Testosterone Fr Testosterone Di efraín Sex Hormone Bind G lob Somatomedin-C PTH Intact Calcium (PTH Intac t) Random Cortisol ACTH Microalb/Creat Rat io [facility] Medical History Uncontrolled diabetes mellitus with hyperglycemia History of stent insertion of renal artery CAD (coronary artery disease) Carotid artery disease Pituitary adenoma Cerebral microvascular disease Multiple cerebral infarctions Left hemiparesis CKD (chronic kidney disease) stage 3, GFR 30-59 ml/min AAA (abdominal aortic aneurysm) Left renal artery stenosis Hypertensive urgency CKD (chronic kidney disease) stage 3, GFR 30-59 ml/min Peroneal neuropathy Hypertension Encounter for loop recorder check Stroke due to stenosis of right carotid artery Stroke Status post placement of implantable loop recorder CVA (cerebral vascular accident) TIA (transient ischemic attack) Vitamin D deficiency Pituitary macroadenoma HLD (hyperlipidemia) HTN (hypertension) T1DM (type 1 diabetes mellitus) Surgical History History of heart artery stent History of carotid endarterectomy Family History Father CVD (cardiovascular disease) AAA (abdominal aortic aneurysm) Mother No problems noted. Social History Household Members: Spouse and Family Housing: House Do you presently have visiting nurse or other home services: Yes Alcohol intake: never Comment: bed rest, unable to ambulate per md Patient Tobacco Use Status: Former Tobacco user Quit Date: December 2020 Tobacco use type: Cigarette Years Smoked: 50+ Second Hand Smoke Exposure: No service: No Current occupational status: unemployed and retired Physical Exam Vital Signs: Last Vital Signs Pulse 66 01/02/24 08:55 BP 112/52 L 01/02/24 08:55 BMI result Body Mass Index 20.7 Absence of Cushingoid features. Absence of acromegalic features. Neck exam reveals nl size thyroid about 15 gms. No thyroid nodules palpable. No carotid bruits present. Lungs CTA. Heart S1 S2, Reg R/R. No M/R/ G. Skin exam reveals absence of vitiligo or acanthosis nigricans. Abdominal exam reveals Soft NT/ND with NA BS. No organomegaly present. Visual cherry are normal by gross confrontation Neck Other: . Extrem Other: Visual exam of foot performed. No ulcerations or open lesions. No onchomycosis, no callouses.Pulses 2 + distally Sensation intact to monofilament exam. Vibratory sensation sensed is decreased with 128 Hz tuning fork. There is a left arm contracture. Results AMB Hemoglobin A1c AMB Hemoglobin A1c 9.8 % Last Edit by LILLIAN Ramirez on 01/02/24 09:23 Results Reviewed Results Reviewed: Laboratory Last Values Glucose (Clinic) 109 mg/dL (60-115) 01/02/24 09:00 Assessment & Plan Assessment & Plan (1) Uncontrolled diabetes mellitus with hyperglycemia: Code(s): E11.65 - Type 2 diabetes mellitus with hyperglycemia Plan: This 72-year-old white male with reported prior history of type 1 diabetes with negative antibodies? Type 2 currently being treated with basal-bolus insulin with poor glycemic control and known microvascular macrovascular complications namely CAD, CVA and CKD. Plan is to increase the Tresiba to 40 units and then to 48 units after another 4 days to get point cares fasting < 150. Patient will follow up with the educator. Would hold off on giving a G LP 1 or G LP /G IP as patient is relatively thin the probably insulin deficient but somewhat resistant to insulin. I also talked about various insulin pumps with the patient and he will discuss this further with the welding machine operator helper arc. He might be a good candidate for a ilet or Omnipod 5 pump (2) Pituitary macroadenoma: Code(s): D35.2 - Benign neoplasm of pituitary gland Plan: History of pituitary macroadenoma non-secretory on recent blood work without any pituitary deficiencies. No encroachment of optic chiasm. Recent CT Scan showed no change in the size the adenoma. Plan is for continued observation. Patient was asked to follow-up with Dr. Burris Orders: Orders AMB Hemoglobin A1c Today E11.65 - Type 2 diabetes mellitus with hyperglycemia, Z13.9 - Encounter for screening, unspecified Coding Level of Care Code Est Pt Level 4 (77316) Diagnoses Uncontrolled diabetes mellitus with hyperglycemia E11.65 Pituitary macroadenoma D35.2
[2024-01-02 08:55] VITALS: BP 112/52; PULSE 66; BMI 20.7
[2024-01-02 09:05] LABS: Glucose, Whole Blood 109 mg/dL (60-115)
== END 2024-01-02 09:15 | disposition home or self-care (01) ==
PROVIDERS: PCP Family Medicine; Visit Provider Internal Medicine Endocrinology, Diabetes & Metabolism
DX: Z13.9 Encounter for screening, unspecified (principal); E11.65 Type 2 diabetes mellitus with hyperglycemia; D35.2 Benign neoplasm of pituitary gland
CPT/HCPCS: 99214

== ENCOUNTER → 2024-01-02 08:48 | Outpatient (BNVA) | payer MEDICARE, BC, SELFPAY | PROVIDERS: PCP Family Medicine; Visit Provider Internal Medicine Endocrinology, Diabetes & Metabolism | DX: E11.65 Type 2 diabetes mellitus with hyperglycemia (principal); D35.2 Benign neoplasm of pituitary gland; Z79.4 Long term (current) use of insulin | CPT/HCPCS: 82947; 83036; 99212 ==

== ENCOUNTER 2024-01-10 09:31 | Outpatient (AMB) | payer MEDICARE, BC, SELFPAY ==
--- NOTE | 2024-01-10 10:03 | MHC.AMDMED ---
Intake Intake Visit Reasons: f/u IRDM/confirmed Allergies No Known Allergies Allergy (Verified 01/02/24 08:58) [facility] Comprehensive Diabetes Asmnt Most Recent Diabetes Results: Microalb/Creat Ratio 84.0 ug/mg cr (<30) H 09/12/23 Cholesterol 110 mg/dL (<200) 09/12/23 HDL Cholesterol 35 mg/dL (>40) L 09/12/23 Triglycerides 88 mg/dL (<150) 09/12/23 Creatinine 1.62 mg/dL (0.5-1.4) H 12/04/23 Blood Urea Nitrogen 13 mg/dL (9-16) 12/04/23 Sodium 132 mmol/L (135-145) L 12/04/23 Potassium 3.5 mmol/L (3.3-5.1) 12/04/23 Chloride 97 mmol/L (96-108) 12/04/23 Carbon Dioxide 22 mmol/L (22-29) 12/04/23 Calcium 9.0 mg/dL (8.4-10.2) 12/04/23 AST 18 U/L (5-37) 12/04/23 ALT 14 U/L (0-40) 12/04/23 Total Protein 7.4 g/dL (6.5-8.0) 12/04/23 Albumin 3.5 g/dL (3.5-5.0) 12/04/23 [facility] Medical History Uncontrolled diabetes mellitus with hyperglycemia History of stent insertion of renal artery CAD (coronary artery disease) Carotid artery disease Pituitary adenoma Cerebral microvascular disease Multiple cerebral infarctions Left hemiparesis CKD (chronic kidney disease) stage 3, GFR 30-59 ml/min AAA (abdominal aortic aneurysm) Left renal artery stenosis Hypertensive urgency CKD (chronic kidney disease) stage 3, GFR 30-59 ml/min Peroneal neuropathy Hypertension Encounter for loop recorder check Stroke due to stenosis of right carotid artery Stroke Status post placement of implantable loop recorder CVA (cerebral vascular accident) TIA (transient ischemic attack) Vitamin D deficiency Pituitary macroadenoma HLD (hyperlipidemia) HTN (hypertension) T1DM (type 1 diabetes mellitus) Surgical History History of heart artery stent History of carotid endarterectomy Family History Father CVD (cardiovascular disease) AAA (abdominal aortic aneurysm) Mother No problems noted. Social History Household Members: Spouse and Family Housing: House Do you presently have visiting nurse or other home services: Yes Alcohol intake: never Comment: bed rest, unable to ambulate per md Patient Tobacco Use Status: Former Tobacco user Quit Date: December 2020 Tobacco use type: Cigarette Years Smoked: 50+ Second Hand Smoke Exposure: No service: No Current occupational status: unemployed and retired Assessment & Plan Assessment & Plan (1) T1DM (type 1 diabetes mellitus): Code(s): E10.9 - Type 1 diabetes mellitus without complications Qualifiers: Diabetes mellitus complication status: with hyperglycemia Qualified Code(s): E10.65 - Type 1 diabetes mellitus with hyperglycemia Plan: Personal Continuous Glucose Monitor: Patients CGM information reviewed Reviewed patient's sensor data: Hypoglycemia: 0%? Hyperglycemia:? 72% Time in Range:? 28% Average glucose for the last 2 weeks? 250 mg/dL Patient reports that Dr. Ramos at last week's visit increase Tresiba to 40 units daily, patient believes that this is helping keep glucose levels under control. Reviewed with patient iLet insulin pump, demonstrated both insulin delivery sets and explained how to fill in insert insulin vial into insulin pump. Patient reports he would like to continue the Tresiba 40 units to see if that improves glucose levels. He will follow-up with Dr. Ramos in April 2024, and personnel officer. Patient decides he would like to proceed with insulin pump he will contact personnel officer Reviewed how to interpret trend arrows Reminded patient that to check finger sticks if symptoms do not match sensor reading. Discussed lag time between finger stick and sensor data.? Patient able to insert sensor independently at home without issue.? Coding Level of Care Code Est Pt Level 1 (99732) Diagnoses Type 1 diabetes mellitus with hyperglycemia E10.65 Diabetes mellitus complication status: with hyperglycemia
== END 2024-01-10 10:05 | disposition home or self-care (01) ==
PROVIDERS: PCP Family Medicine; Visit Provider Registered Nurse Diabetes Educator
DX: E10.65 Type 1 diabetes mellitus with hyperglycemia (principal)

== ENCOUNTER → 2024-01-10 09:31 | Outpatient (BNVA) | payer MEDICARE, BC, SELFPAY | PROVIDERS: PCP Family Medicine; Visit Provider Registered Nurse Diabetes Educator | DX: E10.65 Type 1 diabetes mellitus with hyperglycemia (principal) | CPT/HCPCS: 99211 ==

== ENCOUNTER 2024-02-02 14:23 | Outpatient (REF) | payer MEDICARE, BC, SELFPAY ==
[2024-02-02 14:45] LABS: MANUAL DIFF FLAG NO
[2024-02-02 15:20] LABS: Basophils Percent Auto 0.4 % (0-2); Eosinophils Absolute Auto 0.2 X10*3/uL (0.0-0.4); Eosinophils Percent Auto 2.8 % (0-4); Hematocrit 39.9 % (42.0-52.0); Hemoglobin 12.8 g/dl (14.0-18.0); Imm Gran Abs Auto 0.03 X10*3/uL (0.00-0.03); Imm Gran Pct Auto 0.4 % (0.0-0.4); Lymphocytes Absolute Auto 1.6 X10*3/uL (1.2-4.9); Lymphocytes Percent Auto 19.7 % (20-40); Mean Corpuscular HGB Conc 32.1 g/dl (31.0-36.0); Mean Corpuscular Hemoglobin 28.8 pg (27.0-33.0); Mean Corpuscular Volume 89.9 fL (80.0-98.0); Monocytes Absolute Auto 0.9 X10*3/uL (0.1-1.2); Monocytes Percent Auto 10.5 % (2-11); Neutrophils Absolute Auto 5.4 x10*3/uL (2.0-8.3); Neutrophils Percent Auto 66.2 % (45-73); Platelet Count 248 X10*3/uL (160-400); Red Blood Count 4.44 X10*6/uL (4.60-5.80); Red Cell Distribution Width 14.7 % (11.0-16.0); White Blood Count 8.2 X10*3/uL (4.8-10.8)
[2024-02-02 15:51] LABS: Albumin Level 3.9 g/dL (3.5-5.0); Anion Gap 10 (12-20); Blood Urea Nitrogen 19 mg/dL (9-16); Calcium 9.2 mg/dL (8.4-10.2); Carbon Dioxide 30 mmol/L (22-29); Chloride 106 mmol/L (96-108); Estimated Glomerular Filt Rate 45; Magnesium 2.1 mg/dL (1.6-2.6); Potassium 4.2 mmol/L (3.3-5.1); Sodium 142 mmol/L (135-145)
[2024-02-02 15:53] LABS: Parathyroid Hormone Intact 136.8 pg/mL (8.7-77.1)
[2024-02-02 17:21] LABS: Appearance Urine Clear; Color Urine Yellow; Glucose Urine UA 500 mg/dL (Negative); Leukocyte Esterase Urine Negative (Negative); Nitrite Urine Negative (Negative); PH 7.5 (5.0-9.0); Specific Gravity - Urine 1.015 (1.005-1.025); UMIC TRIGGER UA YES; Urine Blood Negative (Negative); Urine Ketones Negative (Negative); Urine Protein 30 (1+) mg/dL (Neg-Trace)
[2024-02-02 17:22] LABS: Creatinine Urine 60.62 mg/dL; Total Protein Urine Random 21 mg/dL (<12)
[2024-02-02 17:26] LABS: Bacteria Urine None Seen (None Seen); Hyaline Casts Urine 0-2 /LPF (0-2); RBC Urine 0-2 /HPF (0-2); Squamous Epithelial Cell Urine 0-2 /HPF (0-2); WBC Urine 0-5 /HPF (0-5)
[2024-02-07 20:14] LABS: VITAMIN D (1,25 OH) D3 29 pg/mL; Vit D (1,25-Dihydroxy) Total 29 pg/mL (18-72); Vitamin D (1,25 OH) D2 <8 pg/mL
== END 2024-02-02 14:24 | disposition home or self-care (01) ==
LOC: HO.LAB 14:23
PROVIDERS: Visit Provider Internal Medicine Nephrology
DX: E11.22 Type 2 diabetes mellitus with diabetic chronic kidney disease (principal); N18.32 Chronic kidney disease, stage 3b; N25.0 Renal osteodystrophy
CPT/HCPCS: 36415; 80051; 81001; 82040; 82043; 82310; 82565; 82570; 82652; 83735; 83970; 84100; 84156; 84520; 85025

== ENCOUNTER 2024-05-06 09:25 | Outpatient (AMB) | payer MEDICARE, BC, SELFPAY ==
--- NOTE | 2024-05-06 09:26 | A.OFFVIS_ITS ---
Vital Signs 05/06/24 09:29 Height 5 ft 8 in Weight 151 lb 14.376 oz BMI 23.1 BP 112/56 L Blood Pressure Location Rt brachial Position Sitting Pulse 63 Pulse Source Pulse Oximeter Intake Visit Reasons: f/u IRDM/CONFIRMED Intake Note: Patient presents today to follow up on IRMT. Last Diabetic Eye exam: 02/2024 Last Podiatry Visit:Doesn't have one. Random Glucose: 139 mg/dl HgA1c: 8.7% Consulting Property Manager Required: No Accompanied by: Self / Same As Patient Allergies No Known Allergies Allergy (Verified 05/06/24 09:32) HPI Comments Details: 73 year-old male with a past medical history of chronic hepatitis-B, type 1 diabetes, hypertension, HLD, and a Pituitary macroadenoma. He is seen in F/U today. He was previously followed by an solid surface fabricator Dr. Enriquez in [facility] for his diabetes. Today's visit focus is on the type 2 diabetes 2) T2DM: He also has a history of ? T2DM. Current regimen of Tresiba 40 units qAM. He also uses Novolog 15 units AC. Tried Ozempic but had diaarhea He is not accurately counting carbohydrates. He does drink juice and does not give any insulin for this. Unfortunately we are unable to download his Dexcom information Reports low sugars rarely. Treats lows according to the rule of 15's. Has eyes checked yearly, saw optho has appt this week Denies retinopat hy. Denies Neuropathy. No Nephropathy. He is off Lisinopril now per the recommendation of his Service Writer Advisor. UAC 73.2 04/15/2022. He developed orthostatic hypotension in 2020 and was having low BP with LEE/ARB so these were stopped. Has HLD, on Atorvastatin 80 mg PO daily and Zetia 10 mg PO daily. LDL 48 04/22/2022. Has history of CAD with triple vessel PTCA few years ago. He had a CVA in 2020.. He has had negative antibodies GAD65 as well as insulin autoantibodies the past Attending CDE. 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 MRI Brain: 01/14/2021 FINDINGS: There are multiple new or enlarging foci of restricted diffusion within the right cerebral hemisphere when compared to prior MR imaging from 01/12/2021. There are a few scattered punctate foci of susceptibility artifact within the right frontal, right occipital, and both parietal lobes. Intracranial vascular flow voids are grossly maintained. There are numerous foci of T2 FLAIR signal hyperintensity throughout the periventricular white matter, basal ganglia, and juan c that most likely represent a chronic manifestation of small vessel ischemia. No intracranial mass effect or midline shift. No abnormal extra-axial collection. Lateral and third ventricles are proportionate to the subarachnoid spaces. No hydrocephalus. There is an intrasellar mass causing smooth chronic remodeling and expansion of the sella turcica. Midline structures are otherwise unremarkable. No acute bone marrow signal changes. There is no mastoid middle ear effusion. Partial opacification of one of the right posterior ethmoids. Otherwise no active paranasal sinus disease. MR/MR head/brain wo con IMPRESSION: There are multiple new or worsening acute infarcts within the right cerebral hemisphere when compared to recent prior MR imaging from 01/12/2021. These findings are superimposed upon numerous chronic small vessel ischemic changes within the periventricular white matter, basal ganglia, and juan c. No intracranial mass effect. Labs: Laboratory Tests 03/10/22 04/15/22 04/15/22 10:24 10:30 10:30 Sodium 137 Potassium 4.7 Creatinine 2.13 H Estimated GFR 31 Hemoglobin A1c % 8.5 Triglycerides Cholesterol LDL Cholesterol Direct LDL Cholesterol, Calc HDL Cholesterol 25-OH Vitamin D Total TSH 1.59 Free T4 Total T3 FSH Luteinizing Hormone Prolactin Undiluted Prolactin Diluted Total Testosterone Fr Testosterone Dialys Sex Hormone Bind Glob Somatomedin-C PTH Intact 51 Calcium (PTH Intact) 10.1 Random Cortisol ACTH Microalb/Creat Ratio 04/15/22 04/15/22 04/15/22 10:30 10:30 10:30 Sodium Potassium Creatinine Estimated GFR Hemoglobin A1c % Triglycerides Cholesterol LDL Cholesterol Direct 55 LDL Cholesterol, Calc HDL Cholesterol 25-OH Vitamin D Total 40.5 TSH Free T4 0.87 Total T3 122 FSH 8.6 H Luteinizing Hormone 7.9 Prolactin Undiluted 5.7 Prolactin Diluted SEE NOTE Total Testosterone 388 Fr Testosterone Dialys 48.1 Sex Hormone Bind Glob 41 Somatomedin-C 101 PTH Intact Calcium (PTH Intact) Random Cortisol 16.4 ACTH Microalb/Creat Ratio 04/15/22 04/22/22 04/22/22 10:30 07:40 07:40 Sodium Potassium Creatinine Estimated GFR Hemoglobin A1c % Triglycerides 113 Cholesterol 96 LDL Cholesterol Direct LDL Cholesterol, Calc 48 HDL Cholesterol 26 25-OH Vitamin D Total TSH Free T4 Total T3 FSH Luteinizing Hormone Prolactin Undiluted Prolactin Diluted Total Testosterone Fr Testosterone Dialys Sex Hormone Bind Glob Somatomedin-C PTH Intact Calcium (PTH Intact) Random Cortisol ACTH 34 Microalb/Creat Ratio 73.2 11/18/22 11/18/22 12/02/22 11:57 11:57 07:56 Sodium 138 Potassium 4.5 Creatinine 2.23 H Estimated GFR 29 Hemoglobin A1c % 8.8 Triglycerides Cholesterol LDL Cholesterol Direct LDL Cholesterol, Calc HDL Cholesterol 25-OH Vitamin D Total 37.0 TSH 1.94 Free T4 0.91 Total T3 FSH Luteinizing Hormone Prolactin Undiluted Prolactin Diluted Total Testosterone Fr Testosterone Dialys Sex Hormone Bind Glob Somatomedin-C PTH Intact Calcium (PTH Intact) Random Cortisol ACTH Microalb/Creat Ratio 12/02/22 12/02/22 12/02/22 07:56 07:56 07:56 Sodium Potassium Creatinine Estimated GFR Hemoglobin A1c % Triglycerides Cholesterol LDL Cholesterol Direct LDL Cholesterol, Calc HDL Cholesterol 25-OH Vitamin D Total TSH Free T4 Total T3 121 FSH 9.7 H Luteinizing Hormone 10.5 Prolactin Undiluted 8.0 Prolactin Diluted SEE NOTE Total Testosterone 328 Fr Testosterone Dialys 59.7 Sex Hormone Bind Glob 38 Somatomedin-C 167 PTH Intact Calcium (PTH Intact) Random Cortisol 17.7 ACTH 44 Microalb/Creat Ratio 02/28/23 02/28/23 10:31 10:31 Sodium 138 Potassium 4.3 Creatinine 2.03 H Estimated GFR 33 Hemoglobin A1c % 8.4 Triglycerides Cholesterol LDL Cholesterol Direct LDL Cholesterol, Calc HDL Cholesterol 25-OH Vitamin D Total TSH Free T4 Total T3 FSH Luteinizing Hormone Prolactin Undiluted Prolactin Diluted Total Testosterone Fr Testosterone Dialys Sex Hormone Bind Glob Somatomedin-C PTH Intact Calcium (PTH Intact) Random Cortisol ACTH Microalb/Creat Ratio [facility] Medical History Uncontrolled diabetes mellitus with hyperglycemia History of stent insertion of renal artery CAD (coronary artery disease) Carotid artery disease Pituitary adenoma Cerebral microvascular disease Multiple cerebral infarctions Left hemiparesis CKD (chronic kidney disease) stage 3, GFR 30-59 ml/min AAA (abdominal aortic aneurysm) Left renal artery stenosis Hypertensive urgency CKD (chronic kidney disease) stage 3, GFR 30-59 ml/min Peroneal neuropathy Hypertension Encounter for loop recorder check Stroke due to stenosis of right carotid artery Stroke Status post placement of implantable loop recorder CVA (cerebral vascular accident) TIA (transient ischemic attack) Vitamin D deficiency Pituitary macroadenoma HLD (hyperlipidemia) HTN (hypertension) T1DM (type 1 diabetes mellitus) Surgical History History of heart artery stent History of carotid endarterectomy Family History Father CVD (cardiovascular disease) AAA (abdominal aortic aneurysm) Mother No problems noted. Social History Household Members: Spouse and Family Housing: House Do you presently have visiting nurse or other home services: Yes Alcohol intake: never Comment: bed rest, unable to ambulate per md Patient Tobacco Use Status: Former Tobacco user Tobacco use type: Cigarette Years Smoked: 50+ Second Hand Smoke Exposure: No service: No Current occupational status: unemployed and retired Physical Exam Vital Signs: Last Vital Signs Pulse 63 05/06/24 09:29 BP 112/56 L 05/06/24 09:29 BMI result Body Mass Index 23.1 Absence of Cushingoid features. Absence of acromegalic features. Neck exam reveals nl size thyroid about 15 gms. No thyroid nodules palpable. No carotid bruits present. Lungs CTA. Heart S1 S2, Reg R/R. No M/R/ G. Skin exam reveals absence of vitiligo or acanthosis nigricans. Abdominal exam reveals Soft NT/ND with NA BS. No organomegaly present. Visual cherry are normal by gross confrontation Neck Other: . Extrem Other: Visual exam of foot performed. No ulcerations or open lesions. No onchomycosis, no callouses.Pulses 2 + distally Sensation intact to monofilament exam. Vibratory sensation sensed is decreased with 128 Hz tuning fork. There is a left arm contracture. Results AMB Hemoglobin A1c AMB Hemoglobin A1c 8.7 % Last Edit by LILLIAN Ramirez on 05/06/24 09:45 Results Reviewed Results Reviewed: Laboratory Last Values Glucose (Clinic) 139 mg/dL (60-115) H 05/06/24 09:35 Hgb A1c (Clinic) 8.7 % (4.0-6.0) H 05/06/24 09:38 Assessment & Plan Assessment & Plan (1) Uncontrolled diabetes mellitus with hyperglycemia: Code(s): E11.65 - Type 2 diabetes mellitus with hyperglycemia Category: Medical Plan: This 72-year-old white male with reported prior history of type 1 diabetes with negative antibodies? Type 2 currently being treated with basal-bolus insulin with poor glycemic control and known microvascular macrovascular complications namely CAD, CVA and CKD. Plan is to start Mounjaro 2.5 mg Q weekly and titrate as tolerated. Went over side effects of Mounjaro including but not limited to nausea, vomiting rare risk of pancreatitis. Will have patient follow-up with Kait Barron NP in 1 month Orders: Orders AMB Hemoglobin A1c Today E11.65 - Type 2 diabetes mellitus with hyperglycemia, Z13.9 - Encounter for screening, unspecified Medications: New tirzepatide (Mounjaro) 2.5 mg (0.5 mL) subcut QWEEK 4 weeks 2 mL 4RF Coding Level of Care Code Est Pt Level 4 (11603) Diagnoses Uncontrolled diabetes mellitus with hyperglycemia E11.65
[2024-05-06 09:29] VITALS: BP 112/56; PULSE 63; BMI 23.1
[2024-05-06 09:39] LABS: Glucose, Whole Blood 139 mg/dL (60-115)
== END 2024-05-06 09:58 | disposition home or self-care (01) ==
PROVIDERS: PCP Family Medicine; Visit Provider Internal Medicine Endocrinology, Diabetes & Metabolism
DX: Z13.9 Encounter for screening, unspecified (principal); E11.65 Type 2 diabetes mellitus with hyperglycemia
CPT/HCPCS: 99214

== ENCOUNTER → 2024-05-06 09:25 | Outpatient (BNVA) | payer MEDICARE, BC, SELFPAY | PROVIDERS: PCP Family Medicine; Visit Provider Internal Medicine Endocrinology, Diabetes & Metabolism | DX: E11.65 Type 2 diabetes mellitus with hyperglycemia (principal) | CPT/HCPCS: 82947; 83036; 99212 ==

== ENCOUNTER 2024-06-04 09:56 | Outpatient (AMB) | payer MEDICARE, BC, SELFPAY ==
[2024-06-04 10:18] VITALS: BP 98/48; PULSE 66; BMI 23.3
--- NOTE | 2024-06-04 10:18 | MHC.OFFVIS ---
Vital Signs 06/04/24 10:18 Height 5 ft 8 in Weight 153 lb 0.013 oz BMI 23.3 BP 98/48 L Blood Pressure Location Rt brachial Position Sitting Pulse 66 Pulse Source Pulse Oximeter Intake Visit Reasons: f/u IRDM-confirmed Intake Note: Patient presents today for IRDM follow up visit. Last Diabetic Eye exam: 04/2024 Last Podiatry Visit:Doesn't have one Random Glucose: 107 mg/dl HgA1c: 8.7% 05/06/24 Speech Language Pathologist Travel Required: No Accompanied by: Self / Same As Patient Allergies No Known Allergies Allergy (Verified 06/04/24 10:24) HPI Comments Details: 73 year-old male with a past medical history of chronic hepatitis-B, type 1 diabetes, hypertension, HLD, and a Pituitary macroadenoma. He is seen in F/U today. He was previously followed by an photographer finish Dr. Enriquez in [facility] for his diabetes. Today's visit focus is on the type 2 diabetes 2) T2DM: He also has a history of ? T2DM. Current regimen of Tresiba 40 units qAM. He also uses Novolog 15 units AC. Tried Ozempic but had diaarhea . Not On Mounjaro 2.5 mg Q weekly because insurance denied He is not accurately counting carbohydrates. He does drink juice and does not give any insulin for this. Dexcom download shows he is using the sensor 83% of the time. Average glucose is 192 with G mi of 7.9% and coefficient variation 38.4%. 42% range with 56% hyperglycemia and 2% hypoglycemia. The hypoglycemia is occurring primarily after breakfast there is hypoglycemia occurring primarily after supper Reports low sugars rarely. Treats lows according to the rule of 15's. Has eyes checked yearly, has optho today Denies retinopat hy. Denies Neuropathy. No Nephropathy. He is off Lisinopril now per the recommendation of his Fixed Wing Pilot. UAC 73.2 04/15/2022. He developed orthostatic hypotension in 2020 and was having low BP with LEE/ARB so these were stopped. Has HLD, on Atorvastatin 80 mg PO daily and Zetia 10 mg PO daily. LDL 48 04/22/2022. Has history of CAD with triple vessel PTCA few years ago. He had a CVA in 2020.. He has had negative antibodies GAD65 as well as insulin autoantibodies the past Attending CDE. 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 MRI Brain: 01/14/2021 FINDINGS: There are multiple new or enlarging foci of restricted diffusion within the right cerebral hemisphere when compared to prior MR imaging from 01/12/2021. There are a few scattered punctate foci of susceptibility artifact within the right frontal, right occipital, and both parietal lobes. Intracranial vascular flow voids are grossly maintained. There are numerous foci of T2 FLAIR signal hyperintensity throughout the periventricular white matter, basal ganglia, and juan c that most likely represent a chronic manifestation of small vessel ischemia. No intracranial mass effect or midline shift. No abnormal extra-axial collection. Lateral and third ventricles are proportionate to the subarachnoid spaces. No hydrocephalus. There is an intrasellar mass causing smooth chronic remodeling and expansion of the sella turcica. Midline structures are otherwise unremarkable. No acute bone marrow signal changes. There is no mastoid middle ear effusion. Partial opacification of one of the right posterior ethmoids. Otherwise no active paranasal sinus disease. MR/MR head/brain wo con IMPRESSION: There are multiple new or worsening acute infarcts within the right cerebral hemisphere when compared to recent prior MR imaging from 01/12/2021. These findings are superimposed upon numerous chronic small vessel ischemic changes within the periventricular white matter, basal ganglia, and juan c. No intracranial mass effect. Labs: Laboratory Tests 03/10/22 04/15/22 04/15/22 10:24 10:30 10:30 Sodium 137 Potassium 4.7 Creatinine 2.13 H Estimated GFR 31 Hemoglobin A1c % 8.5 Triglycerides Cholesterol LDL Cholesterol Direct LDL Cholesterol, Calc HDL Cholesterol 25-OH Vitamin D Total TSH 1.59 Free T4 Total T3 FSH Luteinizing Hormone Prolactin Undiluted Prolactin Diluted Total Testosterone Fr Testosterone Dialys Sex Hormone Bind Glob Somatomedin-C PTH Intact 51 Calcium (PTH Intact) 10.1 Random Cortisol ACTH Microalb/Creat Ratio 04/15/22 04/15/22 04/15/22 10:30 10:30 10:30 Sodium Potassium Creatinine Estimated GFR Hemoglobin A1c % Triglycerides Cholesterol LDL Cholesterol Direct 55 LDL Cholesterol, Calc HDL Cholesterol 25-OH Vitamin D Total 40.5 TSH Free T4 0.87 Total T3 122 FSH 8.6 H Luteinizing Hormone 7.9 Prolactin Undiluted 5.7 Prolactin Diluted SEE NOTE Total Testosterone 388 Fr Testosterone Dialys 48.1 Sex Hormone Bind Glob 41 Somatomedin-C 101 PTH Intact Calcium (PTH Intact) Random Cortisol 16.4 ACTH Microalb/Creat Ratio 04/15/22 04/22/22 04/22/22 10:30 07:40 07:40 Sodium Potassium Creatinine Estimated GFR Hemoglobin A1c % Triglycerides 113 Cholesterol 96 LDL Cholesterol Direct LDL Cholesterol, Calc 48 HDL Cholesterol 26 25-OH Vitamin D Total TSH Free T4 Total T3 FSH Luteinizing Hormone Prolactin Undiluted Prolactin Diluted Total Testosterone Fr Testosterone Dialys Sex Hormone Bind Glob Somatomedin-C PTH Intact Calcium (PTH Intact) Random Cortisol ACTH 34 Microalb/Creat Ratio 73.2 11/18/22 11/18/22 12/02/22 11:57 11:57 07:56 Sodium 138 Potassium 4.5 Creatinine 2.23 H Estimated GFR 29 Hemoglobin A1c % 8.8 Triglycerides Cholesterol LDL Cholesterol Direct LDL Cholesterol, Calc HDL Cholesterol 25-OH Vitamin D Total 37.0 TSH 1.94 Free T4 0.91 Total T3 FSH Luteinizing Hormone Prolactin Undiluted Prolactin Diluted Total Testosterone Fr Testosterone Dialys Sex Hormone Bind Glob Somatomedin-C PTH Intact Calcium (PTH Intact) Random Cortisol ACTH Microalb/Creat Ratio 12/02/22 12/02/22 12/02/22 07:56 07:56 07:56 Sodium Potassium Creatinine Estimated GFR Hemoglobin A1c % Triglycerides Cholesterol LDL Cholesterol Direct LDL Cholesterol, Calc HDL Cholesterol 25-OH Vitamin D Total TSH Free T4 Total T3 121 FSH 9.7 H Luteinizing Hormone 10.5 Prolactin Undiluted 8.0 Prolactin Diluted SEE NOTE Total Testosterone 328 Fr Testosterone Dialys 59.7 Sex Hormone Bind Glob 38 Somatomedin-C 167 PTH Intact Calcium (PTH Intact) Random Cortisol 17.7 ACTH 44 Microalb/Creat Ratio 02/28/23 02/28/23 10:31 10:31 Sodium 138 Potassium 4.3 Creatinine 2.03 H Estimated GFR 33 Hemoglobin A1c % 8.4 Triglycerides Cholesterol LDL Cholesterol Direct LDL Cholesterol, Calc HDL Cholesterol 25-OH Vitamin D Total TSH Free T4 Total T3 FSH Luteinizing Hormone Prolactin Undiluted Prolactin Diluted Total Testosterone Fr Testosterone Dialys Sex Hormone Bind Glob Somatomedin-C PTH Intact Calcium (PTH Intact) Random Cortisol ACTH Microalb/Creat Ratio Has telemed appt with Dr. Burris for pituitary PFSH Medical History Uncontrolled diabetes mellitus with hyperglycemia History of stent insertion of renal artery CAD (coronary artery disease) Carotid artery disease Pituitary adenoma Cerebral microvascular disease Multiple cerebral infarctions Left hemiparesis CKD (chronic kidney disease) stage 3, GFR 30-59 ml/min AAA (abdominal aortic aneurysm) Left renal artery stenosis Hypertensive urgency CKD (chronic kidney disease) stage 3, GFR 30-59 ml/min Peroneal neuropathy Hypertension Encounter for loop recorder check Stroke due to stenosis of right carotid artery Stroke Status post placement of implantable loop recorder CVA (cerebral vascular accident) TIA (transient ischemic attack) Vitamin D deficiency Pituitary macroadenoma HLD (hyperlipidemia) HTN (hypertension) T1DM (type 1 diabetes mellitus) Surgical History History of heart artery stent History of carotid endarterectomy Family History Father CVD (cardiovascular disease) AAA (abdominal aortic aneurysm) Mother No problems noted. Social History Household Members: Spouse and Family Housing: House Do you presently have visiting nurse or other home services: Yes Alcohol intake: never Comment: bed rest, unable to ambulate per md Patient Tobacco Use Status: Former Tobacco user Tobacco use type: Cigarette Years Smoked: 50+ Second Hand Smoke Exposure: No service: No Current occupational status: unemployed and retired Physical Exam Vital Signs: Last Vital Signs Pulse 66 06/04/24 10:18 BP 98/48 L 06/04/24 10:18 BMI result Body Mass Index 23.3 Absence of Cushingoid features. Absence of acromegalic features. Neck exam reveals nl size thyroid about 15 gms. No thyroid nodules palpable. No carotid bruits present. Lungs CTA. Heart S1 S2, Reg R/R. No M/R/ G. Skin exam reveals absence of vitiligo or acanthosis nigricans. Abdominal exam reveals Soft NT/ND with NA BS. No organomegaly present. Visual cherry are normal by gross confrontation Neck Other: . Extrem Other: Visual exam of foot performed. No ulcerations or open lesions. No onchomycosis, no callouses.Pulses 2 + distally Sensation intact to monofilament exam. Vibratory sensation sensed is decreased with 128 Hz tuning fork. There is a left arm contracture. Assessment & Plan Assessment & Plan (1) Uncontrolled diabetes mellitus with hyperglycemia: Code(s): E11.65 - Type 2 diabetes mellitus with hyperglycemia Category: Medical Plan: This 72-year-old white male with reported prior history of type 1 diabetes with negative antibodies? Type 2 currently being treated with basal-bolus insulin with fair glycemic control and known microvascular macrovascular complications namely CAD, CVA and CKD. Plan is to decrease the Tresiba. To 35 units and increase the NovoLog before supper 18 units Will have patient follow-up with Kait Barron NP in 1 month. Would also try to appeal the denial decision elba Valdez if possible Coding Level of Care Code Est Pt Level 4 (37778) Diagnoses Uncontrolled diabetes mellitus with hyperglycemia E11.65
[2024-06-04 10:30] LABS: Glucose, Whole Blood 107 mg/dL (60-115)
== END 2024-06-04 10:53 | disposition home or self-care (01) ==
PROVIDERS: PCP Family Medicine; Visit Provider Internal Medicine Endocrinology, Diabetes & Metabolism
DX: E11.65 Type 2 diabetes mellitus with hyperglycemia (principal)
CPT/HCPCS: 99214

== ENCOUNTER → 2024-06-04 09:56 | Outpatient (BNVA) | payer MEDICARE, BC, SELFPAY | PROVIDERS: PCP Family Medicine; Visit Provider Internal Medicine Endocrinology, Diabetes & Metabolism | DX: E11.65 Type 2 diabetes mellitus with hyperglycemia (principal); E11.22 Type 2 diabetes mellitus with diabetic chronic kidney disease; I12.9 Hypertensive chronic kidney disease with stage 1 through stage 4 chronic kidney disease, or unspecified chronic kidney disease; N18.30 Chronic kidney disease, stage 3 unspecified; Z79.4 Long term (current) use of insulin | CPT/HCPCS: 82947; 99212 ==

== ENCOUNTER 2024-07-08 14:54 | Outpatient (AMB) | payer MEDICARE, BC, SELFPAY ==
--- NOTE | 2024-07-08 15:00 | MHC.OFFVIS ---
Vital Signs 07/08/24 15:01 Height 5 ft 8 in Weight 154 lb 5.177 oz BMI 23.5 BP 130/76 Blood Pressure Location Lt brachial Position Sitting Pulse 58 Intake Visit Reasons: 1 year fu Intake Note: 1 year follow-up with ekg feeling ok Staff Antisubmarine Officer Required: No Allergies No Known Allergies Allergy (Verified 06/04/24 10:24) Medication List - Last Reconciled 07/08/24 by Emmanuel Valdez MD albuterol sulfate 90 mcg/actuation 2 puffs inhalation Q4H PRN amlodipine 10 mg PO DAILY aspirin 81 mg PO DAILY atorvastatin 80 mg PO BEDTIME 30 days cetirizine 10 mg PO DAILY cholecalciferol (vitamin D3) 50 mcg PO DAILY dorzolamide-timolol 22.3-6.8 mg/mL 1 drp ophthalmic (eye) DAILY entecavir 0.5 mg PO DAILY escitalopram oxalate 20 mg PO DAILY ezetimibe (Zetia) 10 mg PO DAILY 90 days hydralazine 50 mg See Protocol PO BEDTIME insulin aspart U-100 (Novolog FlexPen U-100 Insulin aspart) 15 units (0.15 mL) subcut TIDWMEAL 30 days insulin degludec (Tresiba FlexTouch U-200 insulin) 40 units (0.2 mL) subcut DAILY 30 days latanoprost 0.005% (Xalatan) 1 drp ophthalmic (eye) BEDTIME melatonin 5 mg PO BEDTIME metoprolol succinate ER 100 mg PO BID omeprazole 20 mg PO DAILY ticagrelor 60 mg PO BID HPI Comments Details: Pahn comes for follow-up. Denies any significant new complaints. No syncopal episodes. No blood pressure stairs. Still has labile blood pressure. No cardiovascular symptoms exertional chest pain or shortness of breath. Denies any new neurologic symptoms. Denies any new claudication symptoms. He says his cholesterol has been better controlled. No heart failure symptoms. No prolonged palpitation irregular heartbeat. [facility] Medical History Uncontrolled diabetes mellitus with hyperglycemia History of stent insertion of renal artery CAD (coronary artery disease) Carotid artery disease Pituitary adenoma Cerebral microvascular disease Multiple cerebral infarctions Left hemiparesis CKD (chronic kidney disease) stage 3, GFR 30-59 ml/min AAA (abdominal aortic aneurysm) Left renal artery stenosis Hypertensive urgency CKD (chronic kidney disease) stage 3, GFR 30-59 ml/min Peroneal neuropathy Hypertension Encounter for loop recorder check Stroke due to stenosis of right carotid artery Stroke Status post placement of implantable loop recorder CVA (cerebral vascular accident) TIA (transient ischemic attack) Vitamin D deficiency Pituitary macroadenoma HLD (hyperlipidemia) HTN (hypertension) T1DM (type 1 diabetes mellitus) Surgical History History of heart artery stent History of carotid endarterectomy Family History Father CVD (cardiovascular disease) AAA (abdominal aortic aneurysm) Mother No problems noted. Social History Household Members: Spouse and Family Housing: House Do you presently have visiting nurse or other home services: Yes Alcohol intake: never Comment: bed rest, unable to ambulate per md Patient Tobacco Use Status: Former Tobacco user Tobacco use type: Cigarette Years Smoked: 50+ Second Hand Smoke Exposure: No service: No Current occupational status: unemployed and retired Review of Systems Const Denies chills, Denies fatigue, Denies fever(s), Denies frequent falls, Denies weakness, Denies weight gain and Denies weight loss ENT Denies dizziness Card Denies chest pain, Denies leg edema, Denies lightheadedness, Denies palpitations, Denies dyspnea, Denies dyspnea on exertion, Denies orthopnea and Denies other (loss of consciousness) Resp Denies cough, Denies dyspnea and Denies dyspnea on exertion GI Denies hematochezia and Denies change in stool character Musc Denies abnormal gait, Denies muscle weakness, Denies numbness, Denies radiating pain into limb and Denies tingling Neuro Denies abnormal gait, Denies dizziness, Denies frequent falls, Denies numbness, Denies tingling and Denies weakness Endo Denies fatigue and Denies palpitations Physical Exam Vital Signs: Last Vital Signs Pulse 58 07/08/24 15:01 BP 130/76 07/08/24 15:01 BMI result Body Mass Index 23.5 Last Vital Signs Temp 97.3 F 04/04/21 11:29 Pulse 61 04/04/21 11:29 Resp 18 04/04/21 11:29 BP 180/70 H 04/04/21 11:29 Pulse Ox 98 04/04/21 11:29 Body Mass Index 22.5 Const General: cooperative, comfortable and no acute distress Nutritional Appearance: underweight Orientation/consciousness: patient oriented x3 Limitations: ambulation with cane Neck Neck: Yes trachea midline, Yes supple and Yes no JVD Resp Effort & Inspection: normal respiratory effort Auscultation: clear to auscultation bilaterally Cardio Jugular venous distension: no JVD Palpation: normal PMI Rate: regular rate Rhythm: regular rhythm Heart sounds: S1 normal heart sound present and S2 normal heart sound present Neuro General: patient oriented x3 Extrem General: Yes no clubbing, cyanosis or edema Office Procedures EKG Details: EKG shows normal sinus rhythm with right bundle-branch block [id number], Complete Assessment & Plan Assessment & Plan (1) CAD (coronary artery disease): Code(s): I25.10 - Atherosclerotic heart disease of [place] coronary artery without angina pectoris Category: Medical Plan: Diffuse vascular disease in this elderly gentleman including prior CAD and stenting as well as peripheral vascular disease, renal artery stenosis, abdominal aortic aneurysm. Continue aggressive risk factor modification. Currently on dual antiplatelet therapy which should continue. Continue high-intensity statin therapy with target goal LDL closer to 50 mg/dL. Blood pressure is adequately control, see below. Aggressive diabetes management goal hemoglobin A1c less than 7% should be pursued. Advised to call me with any new symptoms. (2) Dysautonomia orthostatic hypotension syndrome: Code(s): I95.1 - Orthostatic hypotension Category: Medical Plan: Significant dysautonomia syndrome related to diabetes and autonomic dysfunction as well as diffuse and significant calcific vascular disease. Blood pressure is labile but adequately control on current therapy. Continue the same. Importance of good blood pressure control was discussed. Advised to call me with worsening blood pressure control. Continue current regimen. Low-salt diet was discussed. Stress mitigation strategies was discussed advised to maintain adequate hydration. Orthostatic precautions were discussed. Follow up in the clinic in 1 year's time, sooner p.r.n.. Thank you for allowing me to partake in his care Coding Level of Care Code Est Pt Level 4 (41650) Diagnoses CAD (coronary artery disease) I25.10 Dysautonomia orthostatic hypotension syndrome I95.1 CPT Codes EKG - CPT: 56271-[id number], Complete ([id number])
[2024-07-08 15:01] VITALS: BP 130/76; PULSE 58; BMI 23.5
== END 2024-07-08 15:54 | disposition home or self-care (01) ==
PROVIDERS: PCP Family Medicine; Visit Provider Internal Medicine Cardiovascular Disease
DX: I25.10 Atherosclerotic heart disease of native coronary artery without angina pectoris (principal); I95.1 Orthostatic hypotension
CPT/HCPCS: 93010; 99214

== ENCOUNTER → 2024-07-08 14:54 | Outpatient (BNVA) | payer MEDICARE, BC, SELFPAY | PROVIDERS: PCP Family Medicine; Visit Provider Internal Medicine Cardiovascular Disease | DX: I25.10 Atherosclerotic heart disease of native coronary artery without angina pectoris (principal); I95.1 Orthostatic hypotension | CPT/HCPCS: 93005; 99212 ==

== ENCOUNTER 2024-08-07 10:51 | Outpatient (AMB) | payer MEDICARE, BC, SELFPAY ==
--- NOTE | 2024-08-07 08:36 | A.OFFVIS_ITS ---
Vital Signs 08/07/24 11:04 Height 5 ft 8 in Weight 147 lb 11.355 oz BMI 22.5 BP 128/60 Blood Pressure Location Rt brachial Position Sitting Pulse 65 Pulse Source Pulse Oximeter Intake Visit Reasons: follow-up IRDM/CONFIRMED Intake Note: Patient presents today to re-establish treatment for Type 1 Diabetes Mellitus: Last Diabetic eye exam was on: 07/2024 Last Podiatry exam was on: Does not see a Scrum Project Manager Most recent HbA1c: 9.1%, 08/07/2024 Random Glucose- 258 mg/dL, Today Lighting Fixtures Decorator Required: No Accompanied by: Self / Same As Patient Allergies No Known Allergies Allergy (Verified 06/04/24 10:24) HPI Comments Details: 73 year-old male with a past medical history of chronic hepatitis-B, type 1 diabetes, hypertension, HLD, and a Pituitary macroadenoma. He is seen in F/U today. He was previously followed by an room service manager Dr. Enriquez in [facility] for his diabetes. He who was last seen by Dr. Ramos 05/2024 for diabetes and by Dr. Ramos 12/2023 for pituitary microadenoma which will not be addressed today. Most recent A1C 08/07/24 %, 04/2024 8.7%, and 12/2023 9.8%. He has been seen by Barbra ROSE for potential pump December/2023 but had decided to see if Tresiba would lower his A1c. He had tried Ozempic but had diarrhea. Mounjaro 2.5 mg was prescribed but insurance denied. Was metformin when he was first diagnosed. Current diabetes regimen: Tresiba 36 units Novolog 15 units AC. At least 50% of the time he takes after the meal He is not accurately counting carbohydrates. He does drink juice and does not give any insulin for this. Dexcom average glucose: 251 14 day continuous glucose monitor report reviewed Glucose Managment indicator 9.3 % Days with CGM data 92 % TIme in ranges: 50 % very high (above 250) 23 % high ?(181-250) 26 % in range ?(70-180] 1 % low (69-55) Less than 1 % ?very low (below 54) 92 Standard Deviation Interpretation [ occasional low but some persistent highs postprandial] Reports low sugars occasionally, yesterday had a 40 in the am before breakfast, Doesn't always have a snack at hs. Treats lows according to the rule of 15's. Denies retinopathy: Has eyes checked yearly, last eye exam: June 2024 Has glaucoma Denies Neuropathy: no numbness, tingling or cramping. He is off Lisinopril now per the recommendation of his Label Fuser Tender. He developed orthostatic hypotension in 2020 and was having low BP with LEE/ARB so these were stopped. Sees Dr. Lei Has HLD, on Atorvastatin 80 mg PO daily and Zetia 10 mg PO daily. LDL 58 08/2023 Had labs at [facility] yesterdat Has history of CAD with triple vessel PTCA He had a CVA in 2020.. He has had negative antibodies GAD65 as well as insulin autoantibodies 2018, c peptide was low Diet: Exercise: [facility] Medical History Uncontrolled diabetes mellitus with hyperglycemia History of stent insertion of renal artery CAD (coronary artery disease) Carotid artery disease Pituitary adenoma Cerebral microvascular disease Multiple cerebral infarctions Left hemiparesis CKD (chronic kidney disease) stage 3, GFR 30-59 ml/min AAA (abdominal aortic aneurysm) Left renal artery stenosis Hypertensive urgency CKD (chronic kidney disease) stage 3, GFR 30-59 ml/min Peroneal neuropathy Hypertension Encounter for loop recorder check Stroke due to stenosis of right carotid artery Stroke Status post placement of implantable loop recorder CVA (cerebral vascular accident) TIA (transient ischemic attack) Vitamin D deficiency Pituitary macroadenoma HLD (hyperlipidemia) HTN (hypertension) T1DM (type 1 diabetes mellitus) Surgical History History of heart artery stent History of carotid endarterectomy Family History Father CVD (cardiovascular disease) AAA (abdominal aortic aneurysm) Mother No problems noted. Social History Household Members: Spouse and Family Housing: House Do you presently have visiting nurse or other home services: Yes Alcohol intake: never Comment: bed rest, unable to ambulate per md Patient Tobacco Use Status: Former Tobacco user Tobacco use type: Cigarette Years Smoked: 50+ Second Hand Smoke Exposure: No service: No Current occupational status: unemployed and retired Physical Exam Vital Signs: Last Vital Signs Pulse 65 08/07/24 11:04 BP 128/60 08/07/24 11:04 BMI result Body Mass Index 22.5 Const Other: Absence of Cushingoid features. Absence of acromegalic features. Neck exam reveals nl size thyroid about 15 gms. No thyroid nodules palpable. No carotid bruits present. Lungs CTA. Heart S1 S2, Reg R/R. No M/R G. Skin exam reveals absence of vitiligo or acanthosis nigricans. No edema Results AMB Hemoglobin A1c AMB Hemoglobin A1c 9.1 % Last Edit by LILLIAN Cabrera on 08/07/24 11:18 Results Reviewed Results Reviewed: Laboratory Last Values Glucose (Clinic) 258 mg/dL (60-115) H 08/07/24 11:09 Hgb A1c (Clinic) 9.1 % (4.0-6.0) H 08/07/24 11:14 Assessment & Plan Assessment & Plan (1) Uncontrolled diabetes mellitus with hyperglycemia: Code(s): E11.65 - Type 2 diabetes mellitus with hyperglycemia Category: Medical Plan: 73-year-old with type 2 diabetes on basal/bolus insulin. At least half the time he is bolusing after the meal and is having frequent juice which he does not cover. He was asked to consistently take his insulin before the meal and to reduce the amount of juice he is drinking. The patient had an opportunity to ask questions regarding treatment plan. The patient expressed understanding and agreement with the above treatment plan. The patient is aware they should contact our office by phone for worsening glucose readings or for any low blood sugars which may warrant a change in diabetes medication. Compliance is encouraged with medications and any followup testing/consults which may have been ordered. (2) Pituitary macroadenoma: Code(s): D35.2 - Benign neoplasm of pituitary gland Category: Medical Plan: last MRI stable size in pituitary mass 2022 compared to 2021, 2018 mri at [facility] 17.2mm slightly increased in size. not near optic chiasm, prolactin and hormone levels have been normal in the past. He last saw his neurosurgeon: this year with no change. f/u one year per patient. Orders: Orders MRI Pituitary w/wo gil 1 Week D35.2 - Benign neoplasm of pituitary gland AMB Hemoglobin A1c 08/07/24 E10.65 - Type 1 diabetes mellitus with hyperglycemia Glutamic acid decarboxylase Ab 08/07/24 E11.65 - Type 2 diabetes mellitus with hyperglycemia Islet Cell Antibody Scrn/Titer 08/07/24 E11.65 - Type 2 diabetes mellitus with hyperglycemia C Peptide 08/07/24 E11.65 - Type 2 diabetes mellitus with hyperglycemia Patient Instructions: The patient was counseled to achieve a target A1C of 7% (154 avg). Fasting blood sugars should be 90-130 in the morning and less than 180 two hours after meals. Reviewed the relationship between poor diabetic control and the development of complications. The patient was counseled to always carry a source of sugar and on the rule of 15's: Take 3 glucose tablets and repeat again in 15 minutes if blood sugar is not in normal range. Continue to repeat every 15 minutes until blood sugar is normal. Wear closed toe shoes, never walk barefooted and inspect the feet daily. For any signs of infection or open wound patient you should notify your PCP or go to urgent care/ER. Coding Level of Care Code Est Pt Level 4 (22432) Diagnoses Uncontrolled diabetes mellitus with hyperglycemia E11.65 Pituitary macroadenoma D35.2 Time Spent (min) 50 Comment Time spent reviewing labs/provider notes, glucose,sensor reports, face to face, chart doc
[2024-08-07 11:04] VITALS: BP 128/60; PULSE 65; BMI 22.5
[2024-08-07 11:14] LABS: Glucose, Whole Blood 258 mg/dL (60-115)
== END 2024-08-07 11:47 | disposition home or self-care (01) ==
PROVIDERS: PCP Family Medicine; Visit Provider Nurse Practitioner Adult Health
DX: E11.65 Type 2 diabetes mellitus with hyperglycemia (principal); D35.2 Benign neoplasm of pituitary gland
CPT/HCPCS: 99214

== ENCOUNTER → 2024-08-07 10:51 | Outpatient (BNVA) | payer MEDICARE, BC, SELFPAY | PROVIDERS: PCP Family Medicine; Visit Provider Nurse Practitioner Adult Health | DX: E11.65 Type 2 diabetes mellitus with hyperglycemia (principal); D35.2 Benign neoplasm of pituitary gland | CPT/HCPCS: 82947; 83036; 99212 ==

== ENCOUNTER 2024-09-04 11:22 | Outpatient (AMB) | payer MEDICARE, BC, SELFPAY ==
--- NOTE | 2024-09-04 11:33 | A.OFFVIS_ITS ---
Vital Signs 09/04/24 11:34 Height 5 ft 8 in Weight 152 lb 1.903 oz BMI 23.1 BP 120/82 Blood Pressure Location Rt brachial Position Sitting Pulse 66 Pulse Source Pulse Oximeter Intake Visit Reasons: IRDM/CONF Intake Note: Patient presents today for a follow-up for Type 1 Diabetes Mellitus: Last Diabetic eye exam was on: 07/2024 Last Podiatry exam was on: Does not see a Bladder Tier Most recent HbA1c: 9.1%, 08/07/2024 Random Glucose- 139 mg/dL, Today Ladies Underwear Operator Required: No Accompanied by: Self / Same As Patient Allergies No Known Allergies Allergy (Verified 06/04/24 10:24) HPI Comments Details: 73 year-old male with a past medical history of chronic hepatitis-B, type 1 diabetes, hypertension, HLD, and a Pituitary macroadenoma. He is seen in follow up today. He was last seen 08/07/24 at which time he was often taking his bolus insuin after the meal. He was previously followed by an internet marketing consultant Dr. Enriquez in [facility] for his diabetes. He who was last seen by Dr. Ramos 05/2024 for diabetes and by Dr. Ramos 12/2023 for pituitary microade noma which will not be addressed today. Most recent A1C 08/07/24 %, 04/2024 8.7%, and 12/2023 9.8%. He has been seen by Barbra ROSE for potential pump December/2023 but had decided to see if Tresiba would lower his A1c. 2019 Negative gada and insulin antibodies, low c peptide 0.77 He had tried Ozempic but had diarrhea. Mounjaro 2.5 mg was prescribed but insurance denied. Was metformin when he was first diagnosed. Was diagnosed approximately 2003 Current diabetes regimen: Tresiba 36 units Novolog 15 units AC twice daily he eats two meals Dexcom average glucose: 273 14 day continuous glucose monitor report reviewed Glucose Managment indicator 9.8 % TIme in ranges: Sixty-two % very high (above 250) 16 % high ?(181-250) 21 % in range ?(70-180] One % low (69-55) Less than 1 % ?very low (below 54) 93 Standard Deviation Interpretation readings overall much higher than target without lows He does not accurately countcarbohydrates. He does drink juice and does not give any insulin for this. Denies retinopathy: Has eyes checked yearly, last eye exam: June 2024 Has glaucoma Denies Neuropathy: no numbness, tingling or cramping. He is off Lisinopril now per the recommendation of his Director Of Bands. He developed orthostatic hypotension in 2020 and was having low BP with LEE/ARB so these were stopped. Sees Dr. Lei Has HLD, on Atorvastatin 80 mg PO daily and Zetia 10 mg PO daily. LDL 58 08/2023 Had labs at [facility]dat Has history of CAD with triple vessel PTCA He had a CVA in 2020.. c Diet: Exercise: [facility] Medical History Uncontrolled diabetes mellitus with hyperglycemia History of stent insertion of renal artery CAD (coronary artery disease) Carotid artery disease Pituitary adenoma Cerebral microvascular disease Multiple cerebral infarctions Left hemiparesis CKD (chronic kidney disease) stage 3, GFR 30-59 ml/min AAA (abdominal aortic aneurysm) Left renal artery stenosis Hypertensive urgency CKD (chronic kidney disease) stage 3, GFR 30-59 ml/min Peroneal neuropathy Hypertension Encounter for loop recorder check Stroke due to stenosis of right carotid artery Stroke Status post placement of implantable loop recorder CVA (cerebral vascular accident) TIA (transient ischemic attack) Vitamin D deficiency Pituitary macroadenoma HLD (hyperlipidemia) HTN (hypertension) T1DM (type 1 diabetes mellitus) Surgical History History of heart artery stent History of carotid endarterectomy Family History Father CVD (cardiovascular disease) AAA (abdominal aortic aneurysm) Mother No problems noted. Social History Household Members: Spouse and Family Housing: House Do you presently have visiting nurse or other home services: Yes Alcohol intake: never Comment: bed rest, unable to ambulate per md Patient Tobacco Use Status: Former Tobacco user Tobacco use type: Cigarette Years Smoked: 50+ Second Hand Smoke Exposure: No service: No Current occupational status: unemployed and retired Physical Exam Vital Signs: Last Vital Signs Pulse 66 09/04/24 11:34 BP 120/82 09/04/24 11:34 BMI result Body Mass Index 23.1 Const Other: Absence of Cushingoid features. Absence of acromegalic features. Neck exam reveals nl size thyroid about 15 gms. No thyroid nodules palpable. Heart S1 S2, Reg R/R. No M/R G.Left arm no use of, Skin exam reveals absence of vitiligo or acanthosis nigricans. Results Reviewed Results Reviewed: Laboratory Last Values Glucose (Clinic) 139 mg/dL (60-115) H 09/04/24 11:39 Assessment & Plan Assessment & Plan (1) T1DM (type 1 diabetes mellitus): Code(s): E10.9 - Type 1 diabetes mellitus without complications Category: Medical Qualifiers: Diabetes mellitus complication status: with hyperglycemia Qualified Code(s): E10.65 - Type 1 diabetes mellitus with hyperglycemia Plan: 73-year-old type 1 diabetic with multiple cardiovascular co morbidities with poor control on basal/bolus insulin. Patient has been consistently taking pre meal insulin twice daily with brunch and supper. We will increase insulin dosing and he was given a titration schedule to increase Tresiba by 2 units every 3 days until morning readings are less than 160,Target 90-130 a.m., less than 100-202 hours postprandial. If he has titrated tresiba several times, and not at target he will increase novolog by 2 units. new starting dose: Tresiba 40 units NovoLog 18 for brunch and supper We will try for approval for CeQur. He will need assistance from his to place the device as he is not have use of his left hand. Medications: New diabetic supplies, miscellan. (CeQur Simplicity Manager Infusion) As directed for use with CeQur insulin patch 1 ea 1RF bolus insulin pump, 200 unit (CeQur Simplicity) As directed every 4 days 8 ea 11RF insulin aspart U-100 (Novolog U-100 Insulin aspart) 18 units before breakfast and supper 9 clicks on CeQur subcutaneously use as directed; 30 days 1,200 mL 11RF Changed From insulin degludec (Tresiba FlexTouch U-200 insulin) 40 units every morning may increase by 2 units every 3 days until a.m. readings less than 160 subcutaneously daily; E10.65 - Type 1 diabetes mellitus with hyperglycemia To insulin degludec (Tresiba FlexTouch U-200 insulin) 40 units every morning may increase by 2 units every 3 days until a.m. readings less than 160 subcutaneously daily; 90 days 24 mL 4RF E10.65 - Type 1 diabetes mellitus with hyperglycemia Coding Level of Care Code Est Pt Level 4 (51866) Complex EM visit Add On G2211 Diagnoses Type 1 diabetes mellitus with hyperglycemia E10.65 Diabetes mellitus complication status: with hyperglycemia Time Spent (min) 35 Comment Time spent reviewing labs/provider notes, face to face, chart doc
[2024-09-04 11:34] VITALS: BP 120/82; PULSE 66; BMI 23.1
[2024-09-04 11:43] LABS: Glucose, Whole Blood 139 mg/dL (60-115)
== END 2024-09-04 11:51 | disposition home or self-care (01) ==
PROVIDERS: PCP Family Medicine; Visit Provider Nurse Practitioner Adult Health
DX: E10.65 Type 1 diabetes mellitus with hyperglycemia (principal)
CPT/HCPCS: 99214; G2211

== ENCOUNTER → 2024-09-04 11:22 | Outpatient (BNVA) | payer MEDICARE, BC, SELFPAY | PROVIDERS: PCP Family Medicine; Visit Provider Nurse Practitioner Adult Health | DX: E10.65 Type 1 diabetes mellitus with hyperglycemia (principal); Z79.4 Long term (current) use of insulin | CPT/HCPCS: 82947; 99212 ==

== ENCOUNTER 2024-09-25 14:41 | Outpatient (AMB) | payer MEDICARE, BC, SELFPAY ==
--- NOTE | 2024-09-25 11:18 | A.OFFVIS_ITS ---
Intake Vital Signs 09/25/24 14:44 Height 5 ft 8 in Weight 157 lb 6.561 oz BMI 23.9 BP 120/58 L Blood Pressure Location Rt brachial Position Sitting Pulse 64 Pulse Source Pulse Oximeter Intake Visit Reasons: IRDM Intake Note: Patient presents today for D1MT follow up visit. Last Diabetic Eye exam: 07/2024 Last Podiatry Visit: Doesn't have one Random Glucose: 213 mg/dl HgA1c: 9.1% Implementation Project Coordinator Required: No Accompanied by: Self / Same As Patient Allergies No Known Allergies Allergy (Verified 10/07/24 09:42) HPI HPI Comments History of Present Illness Details 73 year-old male with a past medical his tory of chronic hepatitis-B, type 1 diabetes, hypertension, HLD, and a Pituitary macroadenoma. He is seen in follow up today. He was last seen 1 month ago at which time he was given a prescription for CeQur insulin 4 day patch pump. He was previously followed by an home paraprofessional Dr. Enriquez in [facility] for his diabetes. He who was last seen by Dr. Ramos 05/2024 for diabetes and by Dr. Ramos 12/2023 for pituitary microadenoma which will not be addressed today. Most recent A1C 08/07/24 %, 04/2024 8.7%, and 12/2023 9.8%. He has been seen by Barbra PARR for potential pump December/2023 but had decided to see if Tresiba would lower his A1c. 2019 Negative gada and insulin antibodie s, low c peptide 0.77 He had tried Ozempic but had diarrhea. Mounjaro 2.5 mg was prescribed but insurance denied. Was metformin when he was first diagnosed. Was diagnosed approximately 2003 Current diabetes regimen: Tresiba 40 units Novolog 15 units AC twice daily he eats two meals He had gone up to 18 units but had a few lows Dexcom average glucose: 241 14 day continuous glucose monitor report reviewed Glucose Managment indicator 9.1 % Days with CGM data 86 % TIme in ranges: Forty-six % very high (above 250) 25 % high ?(181-250) 28 % in range ?(70-180] 1 % low (69-55) Less than 1 % ?very low (below 54) 93 Standard Deviation Interpretation readings about 70 points over target after 12:00 o'clock nighttime starts higher than 200 and half the time gradually dress down to normal range by 6 or 9 in the morning He does not accurately countcarbohydrates. He does drink juice and does not give any insulin for this. Denies retinopathy: Has eyes checked yearly, last eye exam: June 2024 Has glaucoma Denies Neuropathy: no numbness, tingling or cramping. He is off Lisinopril now per the recommendation of his Jigmaker. He developed orthostatic hypotension in 2020 and was having low BP with LEE/ARB so these were stopped. Sees Dr. Lei Has HLD, on Atorvastatin 80 mg PO daily and Zetia 10 mg PO daily. LDL 58 08/2023 [facility] labs at [facility] Has history of CAD with triple vessel PTCA He had a CVA in 2020.. Diet: Exercise: [facility] Medical History Wears dentures Chronic hepatitis B Paralysis of left upper extremity Ambulates with cane Glaucoma Diverticulosis Diabetes Bilateral cataracts Uncontrolled diabetes mellitus with hyperglycemia History of stent insertion of renal artery CAD (coronary artery disease) Carotid artery disease Pituitary adenoma Cerebral microvascular disease Multiple cerebral infarctions Left hemiparesis CKD (chronic kidney disease) stage 3, GFR 30-59 ml/min AAA (abdominal aortic aneurysm) Left renal artery stenosis Hypertensive urgency CKD (chronic kidney disease) stage 3, GFR 30-59 ml/min Peroneal neuropathy Hypertension Encounter for loop recorder check Stroke due to stenosis of right carotid artery Stroke Status post placement of implantable loop recorder CVA (cerebral vascular accident) (~2020) TIA (transient ischemic attack) (~2020) Vitamin D deficiency Pituitary macroadenoma HLD (hyperlipidemia) HTN (hypertension) T1DM (type 1 diabetes mellitus) Surgical History History of partial colectomy (~1997) History of heart artery stent History of carotid endarterectomy Family History Father CVD (cardiovascular disease) AAA (abdominal aortic aneurysm) Mother No problems noted. Social History Household Members: Spouse and Family Housing: House Are you a primary daycare director to a significant other at home: No Do you presently have visiting nurse or other home services: Yes (COMMERCIAL ESTIMATOR 5 x week) Alcohol intake: never Comment: bed rest, unable to ambulate per md Patient Tobacco Use Status: Former Tobacco user Tobacco use type: Cigarette Years Smoked: 50+ Smoked in Last 30 Days: No Second Hand Smoke Exposure: No Use of substances other than those prescribed or required for medical reasons: No Have you been hit, kicked, punched, or otherwise hurt by someone within the past year? If so, by whom?: No Are you DNR?: No Advance Directives: Yes Advance Directives Information Provided: Yes Advance Directives on File: Yes Advance Directives Date on File: 01/09/21 Recently lost weight without trying: No Nutrition Risks: No Nutritional Risk service: No Current occupational status: unemployed and retired Physical Exam Vital Signs: Last Vital Signs Pulse 64 09/25/24 14:44 BP 120/58 L 09/25/24 14:44 BMI result Body Mass Index 23.9 Const Other: Absence of Cushingoid features. Absence of acromegalic features. Neck exam reveals nl size thyroid about 15 gms. No thyroid nodules palpable. Heart S1 S2, Reg R/R. No M/R G. Skin exam reveals absence of vitiligo or acanthosis nigricans. Results Reviewed Results Reviewed: Laboratory Last Values Glucose (Clinic) 213 mg/dL (60-115) H 09/25/24 15:04 Assessment & Plan Assessment & Plan (1) T1DM (type 1 diabetes mellitus): Code(s): E10.9 - Type 1 diabetes mellitus without complications Qualifiers: Diabetes mellitus complication status: with hyperglycemia Qualified Code(s): E10.65 - Type 1 diabetes mellitus with hyperglycemia Plan: Poorly controlled diabetes. Insulin will be titrated upward see prescription. We will have trained on cequr insulin patch pump Medications: Changed From insulin degludec 40 units every morning may increase by 2 units every 3 days until a.m. readings less than 160 subcutaneously daily; 90 days 24 mL 4RF E10.65 - Type 1 diabetes mellitus with hyperglycemia To Tresiba FlexTouch U-200 (insulin degludec) 40 units every morning may increase by 2 units every 3 days until a.m. readings less than 160 subcutaneously daily; 24 mL 4RF 90 days NS E10.65 - Type 1 diabetes mellitus with hyperglycemia Coding Level of Care Code Medicare First (G0438) Est Pt Level 4 (24095) Diagnoses Type 1 diabetes mellitus with hyperglycemia E10.65 Diabetes mellitus complication status: with hyperglycemia Time Spent (min) 40 Comment Time spent reviewing labs/provider notes, face to face, chart doc
[2024-09-25 14:44] VITALS: BP 120/58; PULSE 64; BMI 23.9
[2024-09-25 15:08] LABS: Glucose, Whole Blood 213 mg/dL (60-115)
--- OUTSIDE RECORDS SUMMARY | 2024-10-01 20:53 | XMS_ITS | Continuity of Care Document ---
Author Organization JENIFER GREENBERG MD [facility], Main Office Address [address] [place] [phone] Assessment No assessment recorded. Plan of Treatment Reminders Order Date Submit Date Provider Last Modified By Organization Details Last Modified Time Details Appointments HBV FOLLOW UP 2024 11:00A M Marie Barraza MD Not available Not available Not available Lab creatinin e w/ estimated GFR (eGFR), serum or plasma 2023 024 [facility], [address], [address], [place], [id number], 07/04/2024 10:07:04 hepatitis C virus Ab, serum 2023 024 [email or web address], [address], [address], [place], [id number], 07/10/2024 11:39:02 hepatitis B DNA, quantitat ashlee, serum 2023 024 [email or web address], [address], [address], [place], [id number], 07/10/2024 11:39:02 unlisted lab - alb+ALP+A LT+AST+tb garcía+PT 2023 024 [facility], [address], [address], [place], [address], 07/04/2024 10:07:03 Referral None recorded. Procedures None recorded. Surgeries None recorded. Imaging None recorded. Medication Orders entecavir 0.5 mg tablet 2023 024 [facility], [facility], [place], [address], 07/03/2024 12:35:02 Patient TargetsNo targets recorded. Patient InstructionsNo instructions recorded. Reason for Referral None Reported. Results Created Date Observation Date Name Description Value Unit Range Abnormal Flag Note LastModifiedBy Organization Detail LastModifiedTime 07/05/20 24 03/08/2024 imagi ng/di agnos tic resul t No observ ation record ed. [email or web address] Not Available 07/05 10:01:27 07/05/20 24 02/13/2024 imagi ng/di agnos tic resul t No observ ation record ed. [email or web address] Not Available 07/05 10:04:14 Result Notes None recorded. Problems Name Problem SNOMED Code Status Onset Date Resolution Date Notes Provider Name and Address Organization Details Recorded Time Cholelith iasis with obstructi on 87314068 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 with obstructio n; 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; Report Immunity to Registry: Yes; Notes: u/s 2010; Not Available [facility] 4 06:58:53 Chronic obstructi ve pulmonary disease 15446509 Active 2019 Chronic obstructiv e lung disease; snomeddesc ription: Chronic obstructiv e lung disease; Report Immunity to Registry: Yes; Notes: pt reports dx by PCP; Chronic obstructiv e pulmonary disease, unspecifie d; snomeddesc ription: Chronic obstructiv e lung disease; Report Immunity to Registry: Yes; Notes: pt reports dx by PCP; Not Available [facility] 4 06:58:53 Cerebrova scular accident 536704996 Active 2019 Cerebrovas cular accident; snomeddesc ription: Cerebrovas cular accident; Report Immunity to Registry: Yes; Notes: hx; Not Available [facility] 4 06:58:53 Chronic kidney disease 286524712 Active 2021 Chronic kidney disease; snomeddesc ription: Chronic kidney disease; Report Immunity to Registry: Yes; Notes: 03/2021 eGFR =34; Not Available [facility] 4 06:58:53 Chronic type B viral hepatitis 46285802 Active 2022 Chronic type B viral hepatitis; snomeddesc ription: Chronic type B viral hepatitis; Report Immunity to Registry: Yes; Notes: 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; 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; Viral hepatitis B without mention of hepatic coma, chronic, without mention of hepatitis delta; snomeddesc ription: Chronic type B viral hepatitis; Report Immunity to Registry: Yes; Notes: 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; 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; Not Available [facility] 4 06:58:53 Myocardia l infarctio n 43404298 Active 2013 Myocardial infarction ; snomeddesc ription: Myocardial infarction ; Report Immunity to Registry: Yes; Notes: 07/03/14 stent x 3; Not Available [facility] 4 06:58:53 Gallbladd er and bile duct calculi 440533351 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; 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; Report Immunity to Registry: Yes; Notes: u/s 2010; Not Available [facility] 4 06:58:53 Abdominal aortic aneurysm 747275757 Active 2013 Abdominal aortic aneurysm without mention of rupture; snomeddesc ription: Abdominal aortic aneurysm; Report Immunity to Registry: Yes; Abdominal aortic aneurysm; snomeddesc ription: Abdominal aortic aneurysm; Report Immunity to Registry: Yes; Not Available [facility] 4 06:58:53 Acute myocardia l infarctio n 98645231 Active 2013 Acute myocardial infarction , unspecifie d site; snomeddesc ription: Myocardial infarction ; Report Immunity to Registry: Yes; Notes: 07/03/14 stent x 3; Not Available [facility] 4 06:58:54 Cerebral infarctio n 648879477 Active 2019 Cerebral infarction , unspecifie d; snomeddesc ription: Cerebrovas cular accident; Report Immunity to Registry: Yes; Notes: hx; Not Available [facility] 4 06:58:54 Problem Notes None recorded. Medical Equipment None Reported. Allergies No known drug allergies Medications Name Sig Start Date Stop Date Status Note LastModified by Organization Details LastModified Time latanopro st 0.005 % eye drops INSTILL ONE DROP TO BOTH EYES AT BEDTIME active Not Available Not Available No t Available atorvasta tin 80 mg tablet TAKE ONE TABLET BY MOUTH AT BEDTIME active Not Available Not Available No t Available doxycycli ne hyclate 100 mg capsule TAKE ONE CAPSULE BY MOUTH TWICE A DAY FOR 7 DAYS 03/06 completed Duration : 7; VACCINE_ IND: no; Not Available Not Available Not Available cefuroxim e axetil 250 mg tablet AXETIL 250MG TAB; Quantity : 14; Duration : 7; 0 refill(s ) 07/04 completed Duration : 7; VACCINE_ IND: no; Not Available Not Available Not Available trazodone 50 mg tablet 50MG Quantity : 60; Duration : 30; 0 refill(s ) 08/09 completed Duration : 30; VACCINE_ IND: no; Not Available Not Available Not Available triamcino lone acetonide 0.5 % topical cream .500 Quantity : 15; Duration : 14; 0 refill(s ) 07/04 completed Duration : 14; VACCINE_ IND: no; Not Available Not Available Not Available cetirizin e 10 mg tablet TAKE ONE TABLET BY MOUTH EVERY DAY. active Not Available Not Available No t Available azithromy alfredito 250 mg tablet 250MG TAB; Quantity : 6; Duration : 5; 0 refill(s ) 03/03 completed Duration : 5; VACCINE_ IND: no; Not Available Not Available Not Available metoprolo l succinate ER 50 mg tablet,ex tended release 24 hr TAKE TWO TABLETS BY MOUTH TWICE A DAY active Not Available Not Available No t Available Nicoderm CQ 21 mg/24 hr daily transderm al patch 14 mg/24 hr Quantity : 30; Duration : 30; 2 refill(s ) 03/30 completed Frequenc y: qd; Duration : 30; VACCINE_ IND: no; SU_FULL_ NAME: Marie witt; Not Available Not Available Not Available prednison e 20 mg tablet TAB 20MG; Quantity : 10; Duration : 5; 0 refill(s ) 03/05 completed Duration : 5; VACCINE_ IND: no; Not Available Not Available Not Available fluoroura cil 5 % topical cream 5.000 Quantity : 40; Duration : 30; 0 refill(s ) 03/03 completed Duration : 30; VACCINE_ IND: no; Not Available Not Available Not Available metoprolo l succinate ER 100 mg tablet,ex tended release 24 hr active Not Available Not Available Not Available metronida zole 500 mg tablet TAB 500MG; Quantity : 30; Duration : 10; 0 refill(s ) 01/12 completed Duration : 10; VACCINE_ IND: no; Not Available Not Available Not Available clopidogr el 75 mg tablet TAB 75MG; Quantity : 30; Duration : 30; 0 refill(s ) 08/04 completed Duration : 30; VACCINE_ IND: no; Not Available Not Available Not Available amlodipin e 5 mg tablet TAB 5MG; Quantity : 90; Duration : 90; 0 refill(s ) 11/03 completed Duration : 90; VACCINE_ IND: no; Not Available Not Available Not Available aspirin 81 mg tablet,de layed release TAKE ONE TABLET BY MOUTH EVERY DAY active Not Available Not Available No t Available pantopraz ole 20 mg tablet,de layed release SODIUM 20MG DR TAB; Quantity : 30; Duration : 30; 0 refill(s ) 07/04 completed Duration : 30; VACCINE_ IND: no; Not Available Not Available Not Available lorazepam 0.5 mg tablet 0.5MG TAB; Quantity : 10; Duration : 5; 0 refill(s ) 07/04 completed Duration : 5; VACCINE_ IND: no; Not Available Not Available Not Available temazepam 30 mg capsule 30MG Quantity : 30; Duration : 30; 0 refill(s ) 03/07 completed Duration : 30; VACCINE_ IND: no; Not Available Not Available Not Available OneTouch Ultra Test strips 0 Quantity : 100; Duration : 25; 0 refill(s ) 10/06 completed Duration : 25; VACCINE_ IND: no; Not Available Not Available Not Available amlodipin e 10 mg tablet TAKE 1 TABLET 10 MG TOTAL) BY MOUTH 1 ONE) TIME EACH DAY. active Not Available Not Available No t Available doxycycli ne monohydra te 100 mg capsule 100.000 Quantity : 20; Duration : 10; 0 refill(s ) 07/04 completed Duration : 10; VACCINE_ IND: no; Not Available Not Available Not Available hydrocodo ne 7.5 mg-acetam inophen 325 mg tablet 7.5-3 Quantity : 10; Duration : 2; 0 refill(s ) 03/06 completed Duration : 2; VACCINE_ IND: no; Not Available Not Available Not Available oseltamiv ir 75 mg capsule 75 Quantity : 10; Duration : 5; 0 refill(s ) 01/12 completed Duration : 5; VACCINE_ IND: no; Not Available Not Available Not Available lisinopri l 10 mg tablet TAB 10MG; Quantity : 60; Duration : 30; 0 refill(s ) 08/04 completed Duration : 30; VACCINE_ IND: no; Not Available Not Available Not Available omeprazol e 20 mg capsule,d elayed release TAKE ONE CAPSULE BY MOUTH EVERY DAY BEFORE MEAL active Not Available Not Available No t Available dorzolami de 22.3 mg-timolo l 6.8 mg/mL eye drops INSTILL ONE DROP TO BOTH EYES TWICE A DAY active Not Available Not Available No t Available hydralazi ne 50 mg tablet TAKE ONE TABLET BY MOUTH EVERY DAY active Not Available Not Available No t Available pravastat in 20 mg tablet 20 mg Quantity : 30.000; Duration : 30; 7 refill(s ) 09/25 completed Duration : 30; VACCINE_ IND: no; Not Available Not Available Not Available lisinopri l 5 mg tablet TAB 5MG; Quantity : 60; Duration : 30; 0 refill(s ) 10/06 completed Duration : 30; VACCINE_ IND: no; Not Available Not Available Not Available albuterol sulfate HFA 90 mcg/actua tion aerosol inhaler 108 Quantity : 8.5; Duration : 16; 0 refill(s ) active Not Available Not Available No t Available neomycin- polymyxin -hydrocor t 3.5 mg-10,000 unit/mL-1 % ear drops,ligia p .000 Quantity : 10; Duration : 10; 0 refill(s ) 11/03 completed Duration : 10; VACCINE_ IND: no; Not Available Not Available Not Available escitalop alexandra 10 mg tablet OXALATE 10MG TAB; Quantity : 30; Duration : 30; 0 refill(s ) 07/04 completed Duration : 30; VACCINE_ IND: no; Not Available Not Available Not Available escitalop alexandra 20 mg tablet TAKE ONE TABLET BY MOUTH EVERY DAY active Not Available Not Available No t Available ezetimibe 10 mg tablet TAKE ONE TABLET BY MOUTH EVERY DAY active Not Available Not Available No t Available Novolog FlexPen U-100 Insulin aspart 100 unit/mL (3 mL) subcutane ous 100 Quantity : 45; Duration : 90; 0 refill(s ) 12/04 completed Duration : 90; VACCINE_ IND: no; Not Available Not Available Not Available metoprolo l tartrate 25 mg tablet TARTRATE 25MG TAB; Quantity : 180; Duration : 90; 0 refill(s ) 07/04 completed Duration : 90; VACCINE_ IND: no; Not Available Not Available Not Available Truvada 200 mg-300 mg tablet 200-3 Quantity : 90; Duration : 90; 0 refill(s ) 08/09 completed Duration : 90; VACCINE_ IND: no; Not Available Not Available Not Available entecavir 0.5 mg tablet TAKE 1 TABLET BY MOUTH 1 TIME A DAY 2023 active Not Available Not Available Not Avai lable Zostavax (PF) 19,400 unit/0.65 mL subcutane ous suspensio n 42930 Quantity : 1; Duration : 1; 0 refill(s ) 01/02 completed Duration : 1; VACCINE_ IND: no; VACCINE_ NAME: zoster live; Not Available Not Available Not Available budesonid e-formote rol HFA 80 mcg-4.5 mcg/actua tion aerosol inhaler 0 Quantity : 30.6; Duration : 90; 0 refill(s ) 12/08/ 2020 02/12 /2021 completed Duration : 90; VACCINE_ IND: no; Not Available Not Available Not Available Chantix Continuin g Month Shawn 1 mg tablet 1 mg Quantity : 56.000; Duration : 28; 0 refill(s ) 03/26 completed Duration : 28; VACCINE_ IND: no; Not Available Not Available Not Available Novofine 32 32 gauge x 1/4 needle 32GX0 Quantity : 2; Duration : 1; 0 refill(s ) 01/02 completed Duration : 1; VACCINE_ IND: no; Not Available Not Available Not Available Flulaval 45 mcg (15 mcg x 3)/0.5 mL intramusc ular suspensio n - Quantity : ; Duration : 30; 0 refill(s ) 09/26 completed Duration : 30; VACCINE_ IND: yes; VACCINE_ NAME: Influenz a, seasonal , injectab alexandra; SU_FULL_ NAME: Marie Levine; VIS_DATE : 04:00:00 .0; Not Available Not Available Not Available Vitamin D3 50 mcg (2,000 unit) capsule TAKE ONE CAPSULE BY MOUTH EVERY DAY active Not Available Not Available No t Available Brilinta 90 mg tablet 90MG TAB; Quantity : 180; Duration : 90; 0 refill(s ) 03/03 completed Duration : 90; VACCINE_ IND: no; Not Available Not Available Not Available Levemir FlexTouch U-100 Insulin 100 unit/mL (3 mL) subcutane ous pen 100 Quantity : 60; Duration : 90; 0 refill(s ) 01/12 completed Duration : 90; VACCINE_ IND: no; Not Available Not Available Not Available Brilinta 60 mg tablet active Not Available Not Available Not Available insulin degludec (U-100) 100 unit/mL (3 mL) subcutane ous pen 100 Quantity : 45; Duration : 90; 0 refill(s ) active Not Available Not Available No t Available insulin degludec (U-200) 200 unit/mL (3 mL) subcutane ous pen active Not Available Not Available Not Available Descovy 200 mg-25 mg tablet TAB 200/25MG ; Quantity : 90; Duration : 90; 0 refill(s ) 08/04 completed Duration : 90; VACCINE_ IND: no; Not Available Not Available Not Available Descovy Quantity : 90; Duration : 90; 0 refill(s ) 08/09 completed Frequenc y: qd; Duration : 90; VACCINE_ IND: no; Not Available Not Available Not Available Shingrix (PF) 50 mcg/0.5 mL intramusc ular suspensio n, kit 50 Quantity : 1; Duration : 1; 0 refill(s ) 10/06 completed Duration : 1; VACCINE_ IND: no; VACCINE_ NAME: zoster recombin ant; Not Available Not Available Not Available Fluzone High-Dose 2019-20 (PF) 180 mcg/0.5 mL intramusc ular syringe VACCINAT ION ADMINIST ERED BY PHARMACI ST 07/03 completed Duration : 1; VACCINE_ IND: no; VACCINE_ NAME: Influenz a, high dose seasonal ; Not Available Not Available Not Available Prevnar 20 (PF) 0.5 mL intramusc ular syringe - Quantity : 1; Duration : 1; 0 refill(s ) 03/04 completed Frequenc y: x1; Duration : 1; VACCINE_ IND: no; VACCINE_ NAME: Pneumoco ccal conjugat e PCV20, polysacc haride [id number] conjugat e, adjuvant , PF; SU_FULL_ NAME: Marie witt; Not Available Not Available Not Available Afluria Quad 60 mcg (15 mcg x 4)/0.5 mL intramusc ular susp. quadriva lent Quantity : ; 0 refill(s ) 2020 active VACCINE_ IND: yes; VACCINE_ NAME: influenz a, injectab le, quadriva lent; SU_FULL_ NAME: Marie witt; VIS_DATE : 19:51:38 .0; Not Available Not Available Not Available Flowflex COVID-19 Antigen Home Test kit 0.000 Quantity : 5; Duration : 5; 0 refill(s ) 03/03 completed Duration : 5; VACCINE_ IND: no; Not Available Not Available Not Available Paxlovid 300 mg (150 mg x 2)-100 mg tablets in a dose pack TAKE THREE TABLETS BY MOUTH TWICE A DAY FOR 5 DAYS DIRECTED FOR 5 DAYS active Not Available Not Available No t Available Afluria Quad (6mo up) 60 mcg (15 mcg x 4)/0.5 mL IM susp quadriva lent Quantity : ; 0 refill(s ) 2021 active VACCINE_ IND: yes; VACCINE_ DOCUMENT _DATE: 00:00:00 ; VACCINE_ DOCUMENT _NAME: Influenz a (Flu) (Inactiv ated or Recombin ant): 05/28/21; VACCINE_ NAME: influenz a, injectab le, quadriva lent; SU_FULL_ NAME: Marie witt; VIS_DATE : 18:41:31 .0; Not Available Not Available Not Available Ozempic 0.25 mg or 0.5 mg (2 mg/3 mL) subcutane ous pen injector INJECT 0.5 MG SUBCUTAN EOUSLY EVERY WEEK active Not Available Not Available No t Available Vitals Date Recorded Body height Heart rate Respiratory rate Body temperature Body mass index (BMI) Body weight Oxygen saturation Oxygen saturation in Arterial blood by Pulse oximetry Systolic blood pressure Diastolic blood pressure Provider Name and Address Organization Details Last Updated DateTime 4 172.72 cm 56 /min 10 /min 98.5 [degF] 23.4 kg/m2 07278.2 2 g 98 % 98 % 118 mm[Hg] 58 mm[Hg] Daniela BARRAZA MD [facility] 12:30:04 Social History Question Answer Notes LastModified by Organizat ion Details LastModified Time Tobacco Smoking Status Never Smoker JENIFER Rodriguez MD [facility] 08/23/2023 14:32:12 Are You Blind Or Do You Have Difficulty Seeing? No [email or web address] Information not available 08/23/2023 Are You Deaf Or Do You Have Serious Difficulty Hearing? No [email or web address] Information not available 08/23/2023 Which Of Your Hands Is Dominant? Right Information not available 08/23/2023 Do You Feel Stressed (tense, Restless, Nervous, Or Anxious, Or Unable To Sleep At Night)? [id number] Information not available 08/23/2023 Sex: Male Functional Status Question Answer Note LastModified by Organizat ion Details LastModified Time Do you have difficulty walking or climbing stairs? Yes stroke [email or web address] Information not available 08/23/2023 Do you have transportation difficulties? No [email or web address] Information not available 08/23/2023 Are you able to walk? YESASSIST pt walks with a dorene [email or web address] Information not available 08/23/2023 Do you have difficulty doing errands alone? No [email or web address] Information not available 08/23/2023 Are you able to care for yourself? Yes [email or web address] Information n ot available 08/23/2023 Do you have difficulty dressing or bathing? Yes pt has a person that helps with bathing and dressing [email or web address] Information not available 08/23/2023 Mental Status Question Answer Note LastModified by Organization D etails LastModified Time Do you have difficulty concentrating, remembering or making decisions? No Information no t available 08/23/2023 Family History Nothing Reported Notes:Family history unknown , Response Property: Yes; , No known relatives, Response Property: Yes; Medical History Condition Response Coronary Artery Disease Y Heart Disease Y Stroke Y Diverticulitis Y Immunizations Vaccine Type Date Status Provider Name and Address Organization Details Recorded Time Influenza, split virus, quadrivalent, preservative 07/04/2022 completed Not Available [facility] 12/13/2023 06:54:23 Influenza, split virus, quadrivalent, preservative 08/04/2021 completed Not Available [facility] 12/13/2023 06:54:24 Past Encounters Encounter ID Performer Location Encounter Start Date Encounter Closed Date Diagnosis/Indication Diagnosis SNOMED-CT Code Diagnosis ICD10 Code [id number] Marie Barraza MD Main Office [address] [place] [phone] 07/03/2024 12:11:28 07/03/2024 12:39:10 Type B viral hepatitis 85614001 B19.10 Health Concerns Section Related Observation LastModified by Organization Detai ls LastModified Time None Recorded Concern Status LastModified by Organization Details LastModified Time None Recorded Payers Encounter Date Sequence Insurance Name Policy Number Policy Garcia Covered Member ID Garcia Member ID Guarantor Name 07/03/2024 1 [place]ICARE [place]: [employer] Phan Gipson [id number] Phan Stauffer Leonela 07/03/2024 2 [place] [employer] [id number] Phan Stauffer Leonela [id number] Phan Stauffer Leonela Notes Date Note Type Note Provider Name and Address Organization Details Recorded Time text/html f/u HBV. CKDon Entecavir 0.5 mg 1 tab po qdcompliancetolerates wellno concerns.no recent labs. will go this month.CKD.med list reviewednot sexually active.04/2023 eGFR-32; HBV VL nondetceted; ALT/AST wnl ; HIV neg; HCV neg; HDV ab neg;10/2022 eGFR>40; ALt/AST wnl; HBV VL nondetceted; HDV neg; neg treponemal ab testno jaundice; no edema. no abd painDM. insulin. did not tolerate ozempic. reports had u/s abd in Dr Carrera's office summer 2023; no abnormalities w AAA.had COVID 2023. txu/s abd 06/2022 and 06/2023 no mass. 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 n/adeclines STi tetsing. declines PreP.no jaundice. no leg edema. no n/v/d. no CPgot flu vaccine; got cOVID19 booster; will get arexvy. Marie Barraza MD [address] [place] [address], [phone], [facility] - MARIE BARRAZA MD [facility] 07/03/2024 12:46:44
--- OUTSIDE RECORDS SUMMARY | 2024-10-01 20:53 | XMS_ITS | Data Portability ---
Author Organization JENIFER GREENBERG MD [facility], Main Office Address [address] [place] [phone] Assessment No assessment recorded. Plan of Treatment Reminders Order Date Submit Date Provider Last Modified By Organization Details Last Modified Time Details Appointments HBV FOLLOW UP 2024 11:00A M Marie Okeefe MD Not available Not available Not available Lab CBC w/ diff 2022 023 [email or web address] [facility], [address], [place] [address], 09/26/2023 16:30:38 electroly george panel, blood 2022 023 [email or web address] [facility], [address], [place], [address], 09/26/2023 16:30:38 ALT (alanine aminotran sferase), serum or plasma 2022 023 LISS [facility], [address], [place], [address], 08/23/2023 21:34:23 AST/SGOT (aspartat e aminotran sferase), serum or plasma 2022 023 LISS [facility], [address], [place], [address], 08/23/2023 21:34:24 creatinin e w/ estimated GFR (eGFR), serum or plasma 2022 023 [email or web address] [facility], [address], [address], [place], [address], 09/26/2023 16:30:39 hepatitis C virus Ab, serum 2022 023 LISS [facility], [address], [address], [place], [address], 08/23/2023 23:21:23 RPR (rapid plasma reagin), serum 2022 023 [email or web address] [facility], [address], [address], [place], [address], 09/26/2023 16:30:39 hepatitis B DNA, quantitat chandrakant, serum 2022 023 LISS [facility], [address], [address], [place], [address], 08/29/2023 15:10:11 unlisted lab - shelton fibrosure 2022 023 LISS [facility], [address], [address], [place], [address], 08/27/2023 18:06:18 creatinin e w/ estimated GFR (eGFR), serum or plasma 2023 024 LISS [facility], [address], [address], [place], [address], 07/04/2024 10:07:04 hepatitis C virus Ab, serum 2023 024 [email or web address] [facility], [address], [address], [place], [address], 07/10/2024 11:39:02 hepatitis B DNA, quantitat chandrakant, serum 2023 024 [email or web address] [facility], [address], [address], [place], [address], 07/10/2024 11:39:02 unlisted lab - alb+ALP+A LT+AST+tb garcía+PT 2023 024 [facility], [address] [facility], [facility], [place], [address], 07/04/2024 10:07:03 Referral None recorded. Procedures None recorded. Surgeries None recorded. Imaging None recorded. Medication Orders entecavir 0.5 mg tablet 2022 023 [facility], [address] [facility], [place], [address], 08/23/2023 14:44:06 entecavir 0.5 mg tablet 2023 024 [facility], [facility], [place], [address], 07/03/2024 12:35:02 Patient TargetsNo targets recorded. Patient InstructionsNo instructions recorded. Reason for Referral None Reported. Results Created Date Observation Date Name Description Value Unit Range Abnormal Flag Note LastModifiedBy Organization Detail LastModifiedTime 08/23/2008/23/2023 COMPL ETE CBC WITH DIFF WBC 7.8 K/mm3 (4.0-1 1.0) Not Available [facility] [address] [place], [address], 08/23/2023 21:06:07 08/23/2008/23/2023 COMPL ETE CBC WITH DIFF RBC 5.03 M/mm3 (4.70- 6.10) Not Available [facility] [address] [place], [address], 08/23/2023 21:06:07 08/23/2008/23/2023 COMPL ETE CBC WITH DIFF HGB 14.9 gm/dL (13.7- 17.1) Not Available [facility] [address] [place], [address], 08/23/2023 21:06:07 08/23/20 23 08/23/2023 COMPL ETE CBC WITH DIFF HCT 45.5 % (40.5- 50.0) Not Available [facility] [address] [place], [address], 08/23/2023 21:06:07 08/23/20 23 08/23/2023 COMPL ETE CBC WITH DIFF MCV 90.5 fL (80.0- 94.0) Not Available [facility] [address] [place], [address], 08/23/2023 21:06:07 08/23/20 23 08/23/2023 COMPL ETE CBC WITH DIFF MCH 29.6 pg (27.0- 34.0) Not Available [facility] [address] [place], [address], 08/23/2023 21:06:07 08/23/20 23 08/23/2023 COMPL ETE CBC WITH DIFF MCHC 32.7 g/dL (33.0- 37.0) low Not Available [facility] [address] [place], [address], 08/23/2023 21:06:07 08/23/20 23 08/23/2023 COMPL ETE CBC WITH DIFF plt 286 K/mm3 (150-4 60) Not Available [facility] [address] [place], [address], 08/23/2023 21:06:07 08/23/20 23 08/23/2023 COMPL ETE CBC WITH DIFF RDW-SD 44.6 fL (<47.0 ) Not Available [facility] [address] [place], [address], 08/23/2023 21:06:07 08/23/20 23 08/23/2023 COMPL ETE CBC WITH DIFF MPV 8.9 fL (9.4-1 2.4) low Not Available [facility] [address] [place], [address], 08/23/2023 21:06:07 08/23/20 23 08/23/2023 COMPL ETE CBC WITH DIFF automated NRBC 0.0 #/100 _WBC' s Not Available [facility] [address] [place], [address], 08/23/2023 21:06:07 08/23/20 23 08/23/2023 COMPL ETE CBC WITH DIFF abs. NRBC 0.0 K/mm3 Not Available [facility] [address] [place], [address], 08/23/2023 21:06:07 08/23/20 23 08/23/2023 COMPL ETE CBC WITH DIFF neut # 5.5 K/mm3 (1.3-7 .0) Not Available [facility] [address] [place], [address], 08/23/2023 21:06:07 08/23/20 23 08/23/2023 COMPL ETE CBC WITH DIFF lymph # 1.3 K/mm3 (0.8-3 .1) Not Available [facility] [address] [place], [address], 08/23/2023 21:06:07 08/23/20 23 08/23/2023 COMPL ETE CBC WITH DIFF mono# 0.7 K/mm3 (0.4-1 .3) Not Available [facility] [address] [place], [address], 08/23/2023 21:06:07 08/23/20 23 08/23/2023 COMPL ETE CBC WITH DIFF eo # 0.2 K/mm3 (0.0-0 .4) Not Available [facility] [address] [place], [address], 08/23/2023 21:06:07 08/23/20 23 08/23/2023 COMPL ETE CBC WITH DIFF baso # 0.1 K/mm3 (0.0-0 .1) Not Available [facility] [address] [place], [address], 08/23/2023 21:06:07 08/23/20 23 08/23/2023 COMPL ETE CBC WITH DIFF abs. imm gran 0.0 K/mm3 Not Available [facility] [address] [place], [address], 08/23/2023 21:06:07 08/23/20 23 08/23/2023 COMPL ETE CBC WITH DIFF neut 70.6 % (44-76 ) Not Available [facility] [address] [place], [address], 08/23/2023 21:06:07 08/23/20 23 08/23/2023 COMPL ETE CBC WITH DIFF lymph 16.6 % (15-43 ) Not Available [facility] [address] [place], [address], 08/23/2023 21:06:07 08/23/20 23 08/23/2023 COMPL ETE CBC WITH DIFF monocyte 9.3 % (4.5-1 0.5) Not Available [facility] [address] [place], [address], 08/23/2023 21:06:07 08/23/20 23 08/23/2023 COMPL ETE CBC WITH DIFF eo 2.2 % (0-6) Not Available [facility] [address] [place], [address], 08/23/2023 21:06:07 08/23/20 23 08/23/2023 COMPL ETE CBC WITH DIFF baso 0.9 % (0-2) Not Available [facility] [address] [place], [address], 08/23/2023 21:06:07 08/23/20 23 08/23/2023 COMPL ETE CBC WITH DIFF imm gran 0.4 % Not Available [facility] [address] [place], [address], 08/23/2023 21:06:07 08/23/20 23 08/23/2023 ALT ALT 24 U/L (0-41) Not Available [facility] [address] [place], [address], 08/23/2023 21:34:22 08/23/20 23 08/23/2023 AST AST 19 U/L (0-40) Not Available [facility] [address] [place], [address], 08/23/2023 21:34:24 08/23/20 23 08/23/2023 CREAT ININE creatinine 1.6 mg/dL (0.7-1 .2) high Not Available [facility] [address] [place], [address], 08/23/2023 21:34:25 08/23/20 23 08/23/2023 CREAT ININE estimated GFR creatinine 45 mL/mi n/1.7 3_M2 Creat inine based estim ated glome rular filtr ation (eGFR ) in adult s is calcu lated using the Natio nal Kidne y Found ation recom dudley d 2020 CKD-E PI equat ion. Estim ates GFR from serum creat inine , age and sex. Not Available [facility] [address] [place], [address], 08/23/2023 21:34:25 08/23/20 23 08/23/2023 ELECT ROLYT ES sodium 137 mmol/ L (133-1 45) Not Available [facility] [address] [place], [address], 08/23/2023 21:34:25 08/23/20 23 08/23/2023 ELECT ROLYT ES potassium 4.2 mmol/ L (3.6-5 .2) Not Available [facility] [address] [place], [address], 08/23/2023 21:34:25 08/23/20 23 08/23/2023 ELECT ROLYT ES chloride 98 mmol/ L (98-10 7) Not Available [facility] [address] [place], [address], 08/23/2023 21:34:25 08/23/20 23 08/23/2023 ELECT ROLYT ES bicarbonate 28 mmol/ L (22-29 ) Not Available [facility] [address] [place], [address], 08/23/2023 21:34:25 08/23/20 23 08/23/2023 ELECT ROLYT ES anion gap 11 (4-17) Not Available [facility] [address] [place], [address], 08/23/2023 21:34:25 08/23/20 23 08/23/2023 ANTI- HEPAT ITIS C anti-hepatit is C (neg) normal NEGAT CHANDRAKANT Refer ence range : Negat chandrakant This test was perfo rmed on the Abbot t Archi tect immun oassa y syste m. Not Available [facility] [address] [place], [address], 08/23/2023 23:21:23 08/23/20 23 08/23/2023 SYPHI LIS TESTI NG syphilis screen by cleestino (neg) normal NEGAT CHANDRAKANT Refer ence range : Negat chandrakant This test was perfo rmed on the Abbot t Archi tect immun oassa y syste m. Not Available [facility] [address] [place], [address], 08/23/2023 23:21:24 08/23/20 23 08/23/2023 SYPHI LIS TESTI NG RPR titer result NOT INDICA BENJAMIN Not Available [facility] [address] [place], [address], 08/23/2023 23:21:24 08/23/20 23 08/23/2023 SYPHI LIS TESTI NG tppa result NOT INDICA BENJAMIN Not Available [facility] [address] [place], [address], 08/23/2023 23:21:24 08/23/20 23 08/23/2023 SYPHI LIS TESTI NG syphilis interpretati on Indic ative of the absen ce of infec tion with Trepo nemal palli dum. Test may be negat chandrakant in cases of incub ating or early prima ry syphi lis. Consi kalia repea t testi ng in sever al weeks if clini chivo suspi cion is high. Not Available [facility] [address] [place], [address], 08/23/2023 23:21:24 08/23/20 23 08/27/2023 SHELTON FIBRO SURE fibrosis score 0.64 high Refer ence range : 0.00 to 0.21 Not Available [facility] [address] [place], [address], 08/27/2023 18:06:18 08/23/2008/27/2023 SHELTON FIBRO SURE fibrosis stage Commen t (NOTE ) F3-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 Not Available [facility] [address] [place], [address], 08/27/2023 18:06:18 08/23/20 23 08/27/2023 SHELTON FIBRO SURE steatosis score 0.64 high Refer ence range : 0.00 to 0.40 Not Available [facility] [address] [place], [address], 08/27/2023 18:06:18 08/23/20 23 08/27/2023 SHELTON FIBRO SURE steatosis grade Commen t (NOTE ) S2 - S3 Moder ate to Sever e Steat osis (Clin icall y Signi fican t) (34-1 00%) Not Available [facility] [address] [place], [address], 08/27/2023 18:06:18 08/23/20 23 08/27/2023 SHELTON FIBRO SURE shelton score 0.66 high Refer ence range : 0.00 to 0.25 Not Available [facility] [address] [place], [address], 08/27/2023 18:06:18 08/23/20 23 08/27/2023 SHELTON FIBRO SURE shelton grade Commen t (NOTE ) N2 - Moder ate SHELTON Not Available [facility] [address] [place], [address], 08/27/2023 18:06:18 08/23/2008/27/2023 SHELTON FIBRO SURE alpha 2 macroglobuli ns qn(fib) 415 high Refer ence range : 110 to 276 Unit: mg/dL Not Available [facility] [address] [place], [address], 08/27/2023 18:06:18 08/23/20 23 08/27/2023 SHELTON FIBRO SURE haptoglobin( fibrosure) 198 Refer ence range : 34 to 355 Unit: mg/dL Not Available [facility] [address] [place], [address], 08/27/2023 18:06:18 08/23/20 23 08/27/2023 SHELTON FIBRO SURE apolipoprote in(fibrosure ) 110 Refer ence range : 101 to 178 Unit: mg/dL Not Available [facility] [address] [place], [address], 08/27/2023 18:06:18 08/23/2008/27/2023 SHELTON FIBRO SURE bilirubin,to ella(fibrosur e) 0.4 Refer ence range : 0.0 to 1.2 Unit: mg/dL Not Available [facility] [address] [place], [address], 08/27/2023 18:06:18 08/23/2008/27/2023 SHELTON FIBRO SURE GGT(fibrosur e) 19 Refer ence range : 0 to 65 Unit: IU/L Not Available [facility] [address] [place], [address], 08/27/2023 18:06:18 08/23/20 23 08/27/2023 SHELTON FIBRO SURE ALT(SGPT)p5p (fibrosure) 28 Refer ence range : 0 to 55 Unit: IU/L Not Available [facility] [address] [place], [address], 08/27/2023 18:06:18 08/23/20 23 08/27/2023 SHELTON FIBRO SURE AST (SGOT) p5p 20 Refer ence range : 0 to 40 Unit: IU/L Not Available [facility] [address] [place], [address], 08/27/2023 18:06:18 08/23/20 23 08/27/2023 SHELTON FIBRO SURE cholesterol total 116 Refer ence range : 100 to 199 Unit: mg/dL Not Available [facility] [address] [place], [address], 08/27/2023 18:06:18 08/23/20 23 08/27/2023 SHELTON FIBRO SURE glucose serum 216 high Refer ence range : 70 to 99 Unit: mg/dL Not Available [facility] [address] [place], [address], 08/27/2023 18:06:18 08/23/20 23 08/27/2023 SHELTON FIBRO SURE triglyceride s 124 Refer ence range : 0 to 149 Unit: mg/dL Not Available [facility] [address] [place], [address], 08/27/2023 18:06:18 08/23/20 23 08/27/2023 SHELTON FIBRO SURE interpretati ons Commen t (NOTE ) Quant itati ve resul ts of 10 bioch emica ls in combi natio n with age and gende r, are diana zed using a compu tatio nal algor ithm to provi de a quant itati ve surro gate marke r (0.0- 1.0) of liver fibro sis (Machias vir F0-F4 ), hepat ic steat osis (0.0- 1.0, S0-S3 ), and Non-A lcoho lic Steat o-Hep atiti s (SHELTON ) (0.0- 1.0, N0-N3 ). The absen ce of steat osis (S<0. 40) precl udes the diagn osis of SHELTON. Fibro sis marke r: In a study of 171 Non-A lcoho lic Fatty Liver Disea se (NAFL D) patie nts where 23% had signi fican t NAFLD fibro sis (Machias vir F2-F4 ) and 11% had cirrh osis by liver biops y, a fibro sis resul t of >0.3 yield ed a sensi tivit y of 83% and a speci ficit y of 78% for the detec tion of signi fican t fibro sis.[ 1] Steat osis marke r: In a popul ation of 2997 patie nts, where 61% had signi fican t steat osis (> EQ 5%) on a liver biops y, a steat osis score >0.4 had a sensi tivit y of 79% and a speci ficit y of 50% for ident ifica tion of signi fican t steat osis. [2] SHELTON marke r: In a popul ation of 1081 NAFLD patie nts, where 51% had at least some SHELTON by liver biops y, a predi ction of SHELTON had a sensi tivit y of 72% for ident ifyin g SHELTON and a speci ficit y of 71%.[ 3] Not Available [facility] [address] [place], [address], 08/27/2023 18:06:18 08/23/2008/27/2023 SHELTON FIBRO SURE fibrosis scoring Commen t (NOTE ) < EQ 0.21 EQ Stage F0 - No fibro sis 0.21 - 0.27 EQ Stage F0 - F1 0.27 - 0.31 EQ Stage F1 - Jose l fibro sis 0.31 - 0.48 EQ Stage F1 - F2 0.48 - 0.58 EQ Stage F2 - Bridg ing fibro sis with few septa 0.58 - 0.72 EQ Stage F3 - Bridg ing fibro sis with many septa 0.72 - 0.74 EQ Stage F3 - F4 >0.74 EQ Stage F4 - Cirrh osis Not Available [facility] [address] [place], [address], 08/27/2023 18:06:18 08/23/20 23 08/27/2023 SHELTON FIBRO SURE steatosis grading Commen t (NOTE ) < EQ 0.40 EQ S0 - No Steat osis (<5%) 0.40 - 0.55 EQ S1 - Mild Steat osis (but Clini reji Signi fican t) (5-33 %) >0.55 EQ S2S3- Moder ate to Sever e Steat osis (Clin icall y Signi fican t) (34-1 00%) Not Available [facility] [address] [place], [address], 08/27/2023 18:06:18 08/23/20 23 08/27/2023 SHELTON FIBRO SURE shelton scoring Commen t (NOTE ) < EQ 0.25 EQ N0 - No SHELTON 0.25 - 0.50 EQ N1 - Mild SHELTON 0.50 - 0.75 EQ N2 - Moder ate SHELTON >0.75 EQ N3 - Sever e SHELTON Not Available [facility] [address], [place], [address], 08/27/2023 18:06:18 08/23/20 23 08/27/2023 SHELTNO FIBRO SURE limitations Commen t (NOTE ) SHELTON Fibro Sure( R) Plus is recom dudley d for patie nts with suspe cted non-a lcoho lic fatty liver disea se. It is not recom dudley d for patie nts with other liver disea ses. It is also not recom dudley d in patie nts with Gilbe rt Disea se, acute hemol ysis, acute viral hepat itis, drug induc ed hepat itis, savita ic liver disea se, autoi mmune hepat itis and/o r extra -hepa tic neisha stasi s. Any of these clini chivo situa tions may lead to inacc urate quant itati ve predi ction s of fibro sis. Not Available [facility] [address] [place], [address], 08/27/2023 18:06:18 08/23/20 23 08/27/2023 SHELTON FIBRO SURE comment Commen t (NOTE ) This test was devel oped and its perfo rmanc e gin cteri stics deter mined by [facility]. It has not been clear ed or appro demario by the Food and Drug Admin istra tion. For quest ions regar ding this repor t pleas e conta ct custo marc servi ce at [phone]. Refer ences : 1. Jennifer Lopez et al. Diagn ostic Value of Bioch emica l Marke rs (Fibr oTest ) for the predi ction of Liver Fibro sis in patie nts with Non-A lcoho lic Fatty Liver Disea se. BMC Gastr oente rolog y 2006; 6:6. 2. Orly Beckford. et al. The Diagn ostic Perfo rmanc e of a Simpl ified Blood Test (Stea toTes t-2) for the Predi ction of Liver Steat osis. Eur J Gastr oente rol Hepat ol. 2019; 31:39 3-402 . 3. Orly Beckford. et al. Diagn ostic perfo rmanc e of a new nonin vasiv e test for nonal cohol ic steat ohepa titis using a simpl ified histo logic al refer ence. Eur J Gastr oente rol Hepat ol. 2017; 30:56 9-577 . Not Available [facility] [address] [place], [address], 08/27/2023 18:06:18 08/23/20 23 08/27/2023 SHELTON FIBRO SURE methodology Commen t (NOTE ) The diana george teste d are perfo rmed by Fibro Sure- Speci fic metho ds. Not inten ded for use with other diagn ostic consi derat ions. Test perfo rmed at [facility] [place] , [facility] [facility] , [place] [address] Not Available [facility] [address] [place], [address], 08/27/2023 18:06:18 08/23/20 23 08/29/2023 HEPAT ITIS B QUANT ITATI VE, PLASM A hepatitis B quantitative , plas IU/mL Not detec benjamin HBV DNA was not detec benjamin in the speci men. Resul t repor benjamin to the [facility]. Testi ng perfo rmed by real time PCR utili zing SHANNON [id number] HBV test. To preve nt error s in diagn osis, test resul ts shoul d be inter prete d in the yee xt of clini chivo findi ngs and other labor atory data. Rare polym orphi sms exist that could lead to false -nega tive or false -posi tive resul ts. If resul ts obtai petra do not match the clini chivo findi ngs, addit ional testi ng shoul d be consi dered . Not Available [facility] [address] [place], [address], 08/29/2023 15:10:11 08/23/20 23 08/29/2023 HEPAT ITIS B QUANT ITATI VE, PLASM A hbvlog LOG value not calcul ated logiu /mL Not Available [facility] [address], [place], [address], 08/29/2023 15:10:11 07/03/20 24 07/04/2024 ALB+A LP+AL T+AST +TBIL I+PT albumin 4.3 g/dL 3.8-4. 8 normal Not Available [facility] ([facility]) [address] [place], [address], 07/04/2024 10:07:03 07/03/20 24 07/04/2024 ALB+A LP+AL T+AST +TBIL I+PT bilirubin, total 0.4 mg/dL 0.0-1. 2 normal Not Available [facility] ([facility]) [address] [place], [address], 07/04/2024 10:07:03 07/03/20 24 07/04/2024 ALB+A LP+AL T+AST +TBIL I+PT alkaline phosphatase 96 IU/L 44-121 normal Not Available [facility]) [address] [place], [address], 07/04/2024 10:07:03 07/03/20 24 07/04/2024 ALB+A LP+AL T+AST +TBIL I+PT AST (SGOT) 20 IU/L 0-40 normal Not Available [facility] ([facility]) [address] [facility], [place], [address], 07/04/2024 10:07:03 07/03/20 24 07/04/2024 ALB+A LP+AL T+AST +TBIL I+PT ALT (SGPT) 16 IU/L 0-44 normal Not Available [facility] ([facility]) [address] [facility], [place], [address], 07/04/2024 10:07:03 07/03/2007/04/2024 ALB+A LP+AL T+AST +TBIL I+PT INR 1.0 0.9-1. 2 Refer ence inter esther is for non-a ntico agula benjamin patie nts. Sugge sted INR thera peuti c range for Vitam in K antag onist thera py: Stand quita Dose (mode rate inten sity thera peuti c range ): 2.0 - 3.0 Highe r inten sity thera peuti c range 2.5 - 3.5 Not Available [facility] ([facility]) [address] [facility], [place], [address], 07/04/2024 10:07:03 07/03/20 24 07/04/2024 ALB+A LP+AL T+AST +TBIL I+PT prothrombin time 11.3 sec 9.1-12 .0 normal Not Available [facility] ([facility]) [address] [facility], [place], [address], 07/04/2024 10:07:03 07/03/2007/04/2024 GLOM FILT RATE, ESTIM ATED creatinine 1.72 mg/dL 0.76-1 .27 above high normal Not Available [facility] ([facility]) [address] [place], [address], 07/04/2024 10:07:04 07/03/20 24 07/04/2024 GLOM FILT RATE, ESTIM ATED eGFR 42 mL/mi n/1.7 3 >59 below low normal Not Available [facility] ([facility]) [address] [facility], [place], [address], 07/04/2024 10:07:04 07/03/20 24 07/04/2024 HCV ANTIB MIYA RFX TO QUANT PCR HCV Ab Non Reacti ve non reacti ve Not Available [facility] ([facility]) [address] [facility], [place], [address], 07/04/2024 10:07:05 07/03/20 24 07/04/2024 HCV ANTIB MIYA RFX TO QUANT PCR interpretati on: Commen t Not infec benjamin with HCV unles s early or acute infec tion is suspe cted (whic h may be delay ed in an immun ocomp romis ed indiv idual ), or other evide nce exist s to indic ate HCV infec tion. Not Available [facility] ([facility]) [address] [facility], [place], [address], 07/04/2024 10:07:05 07/03/20 24 07/04/2024 HEPAT ITIS B SURF AB QUANT hepatitis B surf Ab quant 62.9 mIU/m L immuni ty>10 Statu s of Immun ity Anti- HBs Level ----- ----- ----- --- ----- ----- ---- Incon siste nt with Immun ity 0.0 - 10.0 Consi stent with Immun ity >10.0 Not Available [facility] ([facility]) [address] [facility], [place], [address], 07/04/2024 10:07:06 08/26/20 23 06/20/2023 US, abdom en No observ ation record ed. [email or web address] Not Available 08/26 16:46:31 07/05/20 24 03/08/2024 imagi ng/di agnos tic resul t No observ ation record ed. [email or web address] Not Available 07/05 10:01:27 07/05/20 24 02/13/2024 imagi ng/di agnos tic resul t No observ ation record ed. Not Available 07/05 10:04:14 Result Notes None recorded. Problems Name Problem SNOMED Code Status Onset Date Resolution Date Notes Provider Name and Address Organization Details Recorded Time Cholelith iasis with obstructi on 78018456 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 with obstructio n; 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; Report Immunity to Registry: Yes; Notes: u/s 2010; Not Available Pending sale to [facility] 4 06:58:53 Chronic obstructi ve pulmonary disease 27189196 Active 2019 Chronic obstructiv e lung disease; snomeddesc ription: Chronic obstructiv e lung disease; Report Immunity to Registry: Yes; Notes: pt reports dx by PCP; Chronic obstructiv e pulmonary disease, unspecifie d; snomeddesc ription: Chronic obstructiv e lung disease; Report Immunity to Registry: Yes; Notes: pt reports dx by PCP; Not Available Pending sale to [facility] 4 06:58:53 Cerebrova scular accident [id number] Active 2019 Cerebrovas cular accident; snomeddesc ription: Cerebrovas cular accident; Report Immunity to Registry: Yes; Notes: hx; Not Available Pending sale to [facility] 4 06:58:53 Chronic kidney disease 435016412 Active 2021 Chronic kidney disease; snomeddesc ription: Chronic kidney disease; Report Immunity to Registry: Yes; Notes: 03/2021 eGFR =34; Not Available Pending sale to [facility] 4 06:58:53 Chronic type B viral hepatitis 54495236 Active 2022 Chronic type B viral hepatitis; [...] 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; F3 2020; Not Available Pending sale to [facility] 4 06:58:53 Myocardia l infarctio n 24648203 Active 2013 Myocardial infarction ; snomeddesc ription: Myocardial infarction ; Report Immunity to Registry: Yes; Notes: 07/03/14 stent x 3; Not Available Pending sale to [facility] 4 06:58:53 Gallbladd er and bile duct calculi [id number] 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; 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; Report Immunity to Registry: Yes; Notes: u/s 2010; Not Available Pending sale to [facility] 4 06:58:53 Abdominal aortic aneurysm 862749975 Active 2013 Abdominal aortic aneurysm without mention of rupture; snomeddesc ription: Abdominal aortic aneurysm; Report Immunity to Registry: Yes; Abdominal aortic aneurysm; snomeddesc ription: Abdominal aortic aneurysm; Report Immunity to Registry: Yes; Not Available Pending sale to [facility] 4 06:58:53 Acute myocardia l infarctio n 30393319 Active 2013 Acute myocardial infarction , unspecifie d site; snomeddesc ription: Myocardial infarction ; Report Immunity to Registry: Yes; Notes: 07/03/14 stent x 3; Not Available Pending sale to [facility] 4 06:58:54 Cerebral infarctio n [id number] Active 2019 Cerebral infarction , unspecifie d; snomeddesc ription: Cerebrovas cular accident; Report Immunity to Registry: Yes; Notes: hx; Not Available Pending sale to [facility] 4 06:58:54 Problem Notes None recorded. Procedures Surgical History None recorded. Imaging Results Imaging Date Name Status [facility]Modified by [facility] Details LastModified Time 06/20/2023 US, abdomen completed Information n ot available 08/26/2023 16:46:31 03/08/2024 imaging/diag nostic result completed [email or web address] Information not available 07/05/2024 10:01:27 02/13/2024 imaging/diag nostic result completed [email or web address] Information not available 07/05/2024 10:04:14 Procedure Notes None recorded. Medical Equipment None Reported. [...] no; Not Available Not Available Not Available [employer]Touch Ultra Test strips 0 Quantity : 100; [...] 19,400 unit/0.65 mL subcut[place] [address] Quantity : 1; Duration : 1; 0 refill(s ) 01/02 completed Duration : 1; VACCINE_ IND: no; VACCINE_ NAME: zoster live; Not Available Not Available Not Available budesonid e-formote rol HFA 80 mcg-4.5 mcg/actua tion aerosol inhaler 0 Quantity : 30.6; Duration : 90; 0 refill(s ) 12/04 [...] VACCINE_ NAME: Influenz a, seasonal , injectab le; SU_FULL_ NAME: Marie Levine; VIS_DATE : 04:00:00 [...] Pneumoco ccal conjugat e PCV20, polysacc haride [id number] conjugat e, adjuvant , PF; SU_FULL_ NAME: [...] 5; Duration : 5; 0 refill(s ) 10/03/ 2022 05/12 /2023 completed Duration : 5; VACCINE_ IND: no; [...] t Available Vitals Date Recorded Body height Body mass index (BMI) Body weight Body temperature Oxygen saturation Oxygen saturation in Arterial blood by Pulse oximetry Heart rate Systolic blood pressure Diastolic blood pressure Provider Name and Address Organization Details Last Updated DateTime 3 172.72 cm 22.1 kg/m2 30924.6 9 g 98 [degF] 98 % 98 % 68 /min 110 mm[Hg] 78 mm[Hg] Eunice OKEEFE MD [facility] 3 14:31:17 Date Recorded Body height Heart rate Respiratory rate Body temperature Body mass index (BMI) Body weight Oxygen saturation Oxygen saturation in Arterial blood by Pulse oximetry Systolic blood pressure Diastolic blood pressure Provider Name and Address Organization Details Last Updated DateTime 4 172.72 cm 56 /min 10 /min 98.5 [degF] 23.4 kg/m2 33603.2 2 g 98 % 98 % 118 mm[Hg] 58 mm[Hg] Daniela OKEEFE MD [facility] 12:30:04 Social History Question Answer Notes LastModified by Organizat ion Details LastModified Time Tobacco Smoking Status Never 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 No Information not available 08/23/2023 Are You Deaf Or Do You Have Serious Difficulty Hearing? No Information not available 08/23/2023 Which Of Your Hands Is Dominant? Right [email or web address] Information not available 08/23/2023 Do You Feel Stressed (tense, Restless, Nervous, Or Anxious, Or Unable To Sleep At Night)? [id number] [email or web address] Information not available 08/23/2023 Sex: Male Functional Status Question Answer Note LastModified by Organizat ion Details LastModified Time Do you have difficulty walking or climbing stairs? Yes stroke [email or web address] Information not available 08/23/2023 Do you have transportation difficulties? No Information not available 08/23/2023 Are you able to walk? YESASSIST pt walks with a dorene [email or web address] Information not available 08/23/2023 Do you have difficulty doing errands alone? No [email or web address] Information not available 08/23/2023 Are you able to care for yourself? Yes Information n ot available 08/23/2023 Do you have difficulty dressing or bathing? Yes pt has a person that helps with bathing and dressing Information not available 08/23/2023 Mental Status Question Answer Note LastModified by Organization D etails LastModified Time Do you have difficulty concentrating, remembering or making decisions? No [email or web address] Information no t available 08/23/2023 Family History Nothing Reported Notes:Family history unknown , Response Property: Yes; , No known relatives, Response Property: Yes; Medical History Condition Response Coronary Artery Disease Y Heart Disease Y Stroke Y Diverticulitis Y Immunizations Vaccine Type Date Status Provider Name and Address Organization Details Recorded Time Influenza, split virus, quadrivalent, preservative 07/04/2022 completed Not Available [facility] 12/13/2023 06:54:23 Influenza, split virus, quadrivalent, preservative 08/04/2021 completed Not Available [facility] 12/13/2023 06:54:24 Past Encounters Encounter ID Performer Location Encounter Start Date Encounter Closed Date Diagnosis/Indication Diagnosis SNOMED-CT Code Diagnosis ICD10 Code [id number] Marie Okeefe MD Main Office [address] [place] [address] 08/23/2023 14:09:45 08/23/2023 14:48:23 Type B viral hepatitis 93088231 B19.10 [id number] Marie Okeefe MD Main Office [address] [place] [address] 07/03/2024 12:11:28 07/03/2024 12:39:10 Type B viral hepatitis 69069832 B19.10 Health Concerns Section Related Observation LastModified by Organization Detai ls LastModified Time None Recorded Concern Status LastModified by Organization Details LastModified Time None Recorded Advance Directives Directive None Recorded Payers Encounter Date Sequence Insurance Name Policy Number Policy Garcia Covered Member ID Garcia Member ID Guarantor Name 08/23/2023 1 MEDICARE B-AR: [facility] [employer] Phan Gipson [id number] Phan Gipson 08/23/2023 2 [facility]: BC (PPO) 104 Phan Gipson [id number] Phan Gipson 07/03/2024 1 MEDICARE B-AR: [facility] Phan Gipson [id number] Phan Gipson 07/03/2024 2 [facility]: [employer] 104 Phan Gipson [id number] Phan Gipson Notes Date Note Type Note Provider Name and Address Organization Details Recorded Time 3 text/html f/u HBV. [facility]Don Entecavir 0.5 mg 1 tab po qdtolerates wellno concerns.has not missed doses.CKD. stable eGFR.med list reviewednot sexually active.04/2023 eGFR-32; HBV VL nondetceted; ALT/AST wnl ; HIV neg; HCV neg; HDV ab neg;10/2022 eGFR>40; ALt/AST wnl; HBV VL nondetceted; HDV neg; neg treponemal ab test07/2022 HIV neg; eGFR>40;ALT/ASTno jaundice; no edemau/s abd 06/2022 and 06/2023 no mass. 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 n/adeclines STi tetsing. declines PreP.no jaundice. no leg edema. no n/v/d. no CPgot flu vaccine; got cOVID19 booster; will get arexvy. Marie Okeefe MD [address] [place] [address], [phone], JENIFER OKEEFE MD [facility] 08/23/2023 16:59:39 4 text/html f/u HBV. [facility]Don Entecavir 0.5 mg [...] got cOVID19 booster; will get arexvy. Marie Okeefe MD [address] [place] [address], [phone], [place] - MARIE OKEEFE MD [facility] 07/03/2024 12:46:44
== END 2024-09-25 15:20 | disposition home or self-care (01) ==
PROVIDERS: PCP Family Medicine; Visit Provider Nurse Practitioner Adult Health
DX: E10.65 Type 1 diabetes mellitus with hyperglycemia (principal)
CPT/HCPCS: 99214

== ENCOUNTER → 2024-09-25 14:41 | Outpatient (BNVA) | payer MEDICARE, BC, SELFPAY | PROVIDERS: PCP Family Medicine; Visit Provider Nurse Practitioner Adult Health | DX: E10.65 Type 1 diabetes mellitus with hyperglycemia (principal); E10.22 Type 1 diabetes mellitus with diabetic chronic kidney disease; I12.9 Hypertensive chronic kidney disease with stage 1 through stage 4 chronic kidney disease, or unspecified chronic kidney disease; N18.30 Chronic kidney disease, stage 3 unspecified; Z79.4 Long term (current) use of insulin | CPT/HCPCS: 82947; 99212 ==

== ENCOUNTER 2024-10-01 08:52 | Outpatient (AMB) | payer MEDICARE, BC, SELFPAY ==
--- NOTE | 2024-10-01 09:28 | A.OFFVIS_ITS ---
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 Manager Required: No Allergies No Known Allergies Allergy (Verified 09/25/24 15:02) [facility] Comprehensive Diabetes Asmnt Most Recent Diabetes Results: Hemoglobin A1c 8.9 % 03/01/19 Microalb/Creat Ratio 56.0 ug/mg cr (<30) H 02/02/24 Cholesterol 110 mg/dL (<200) 09/12/23 HDL Cholesterol 35 mg/dL (>40) L 09/12/23 Triglycerides 88 mg/dL (<150) 09/12/23 Creatinine 1.52 mg/dL (0.5-1.4) H 02/02/24 Blood Urea Nitrogen 19 mg/dL (9-16) H 02/02/24 Sodium 142 mmol/L (135-145) 02/02/24 Potassium 4.2 mmol/L (3.3-5.1) 02/02/24 Chloride 106 mmol/L (96-108) 02/02/24 Carbon Dioxide 30 mmol/L (22-29) H 02/02/24 Calcium 9.2 mg/dL (8.4-10.2) 02/02/24 AST 18 U/L (5-37) 12/04/23 ALT 14 U/L (0-40) 12/04/23 Total Protein 7.4 g/dL (6.5-8.0) 12/04/23 Albumin 3.9 g/dL (3.5-5.0) 02/02/24 [facility] Medical History (Updated 09/16/24 @ 16:42 by Loni Hi RN) Wears dentures Chronic hepatitis B Paralysis of left upper extremity Ambulates with cane Glaucoma Diverticulosis Diabetes Bilateral cataracts Uncontrolled diabetes mellitus with hyperglycemia History of stent insertion of renal artery CAD (coronary artery disease) Carotid artery disease Pituitary adenoma Cerebral microvascular disease Multiple cerebral infarctions Left hemiparesis CKD (chronic kidney disease) stage 3, GFR 30-59 ml/min AAA (abdominal aortic aneurysm) Left renal artery stenosis Hypertensive urgency CKD (chronic kidney disease) stage 3, GFR 30-59 ml/min Peroneal neuropathy Hypertension Encounter for loop recorder check Stroke due to stenosis of right carotid artery Stroke Status post placement of implantable loop recorder CVA (cerebral vascular accident) (~2020) TIA (transient ischemic attack) (~2020) Vitamin D deficiency Pituitary macroadenoma HLD (hyperlipidemia) HTN (hypertension) T1DM (type 1 diabetes mellitus) Surgical History History of partial colectomy (~1997) History of heart artery stent History of carotid endarterectomy Family History Father CVD (cardiovascular disease) AAA (abdominal aortic aneurysm) Mother No problems noted. Social History Household Members: Spouse and Family Housing: House Are you a primary certified social workers in health care to a significant other at home: No Do you presently have visiting nurse or other home services: Yes (TRANSITIONAL CARE NURSE 5 x week) Alcohol intake: never Comment: bed rest, unable to ambulate per md Patient Tobacco Use Status: Former Tobacco user Tobacco use type: Cigarette Years Smoked: 50+ Second Hand Smoke Exposure: No Advance Directives Date on File: 01/09/21 service: No Current occupational status: unemployed and retired Assessment & Plan Assessment & Plan (1) Uncontrolled diabetes mellitus with hyperglycemia: Code(s): E11.65 - Type 2 diabetes mellitus with hyperglycemia Plan: Pt at visit [employer] Pt brought CeQue patch, picker operator, vial of mealtime insulin and change by stickers Patient's prescription reads take Instructed patient to wash your hands Demonstrated for patient how to fill syringe from vial, and insert, needle to fill patch Then remove air bubbles from patch, by viewing through clear window below blue cap To prime patch after air bubble has been removed proceed with 4 clicks Apply placed sticker, to patch, count forward 4 days Prepare site where you will place patch with either alcohol or soap and water, avoid waist band and belt line Do not insert through scar tissue, piercings and tattoos be sure to place patch at least 2 in from belly button. If you have excess body hair adhesive will attach better to clean shaven skin Instructed patient to be sure to rotate patch regularly Place patch in picker operator while holding picker operator with both hands use thumbs to push down on blue cap in on patch Push until you hear a click Instructed patient not to unlock green button until picker operator is against prepared site Squeeze at both ends a blue cap and carefully began to pull cap, this should also remove adhesive pad liner. Be cautious of exposed needle, check to make sure needle is not bent Please patch on your body, slide yellow safety and press green button down Press picker operator firmly for 10 seconds, remove picker operator by lifting it away To remove needle squeeze clear sides of registered safety engineer at the base Discard needle in sharps container Press down firmly on patch with palm of your hand for 10 seconds Patient left visit with CeQue patch in place Instructed patient on how to administer mealtime insulin, instructed patient that each click is equal to 2 units of mealtime insulin Patient will follow-up with hospital educator as instructed Portions of this note were created using voice recognition software, please excuse any words or phrases that may have been misinterpreted. Patient Instructions: Instructed patient to wash your hands Demonstrated for patient how to fill syringe from vial, and insert, needle to fill patch Then remove air bubbles from patch, by viewing through clear window below blue cap To prime patch after air bubble has been removed proceed with 4 clicks Apply placed sticker, to patch, count forward 4 days Prepare site where you will place patch with either alcohol or soap and water, avoid waist band and belt line Do not insert through scar tissue, piercings and tattoos be sure to place patch at least 2 in from belly button. If you have excess body hair adhesive will attach better to clean shaven skin Instructed patient to be sure to rotate patch regularly Place patch in picker operator while holding picker operator with both hands use thumbs to push down on blue cap in on patch Push until you hear a click Instructed patient not to unlock green button until picker operator is against prepared site Squeeze at both ends a blue cap and carefully began to pull cap, this should also remove adhesive pad liner. Be cautious of exposed needle, check to make sure needle is not bent Please patch on your body, slide yellow safety and press green button down Press picker operator firmly for 10 seconds, remove picker operator by lifting it away To remove needle squeeze clear sides of registered safety engineer at the base Discard needle in sharps container Press down firmly on patch with palm of your hand for 10 seconds Coding Level of Care Code Est Pt Level 1 (29700) Diagnoses Uncontrolled diabetes mellitus with hyperglycemia E11.65
== END 2024-10-01 09:29 | disposition home or self-care (01) ==
PROVIDERS: PCP Family Medicine; Visit Provider Registered Nurse Diabetes Educator
DX: E11.65 Type 2 diabetes mellitus with hyperglycemia (principal)

== ENCOUNTER → 2024-10-01 08:52 | Outpatient (BNVA) | payer MEDICARE, BC, SELFPAY | PROVIDERS: PCP Family Medicine; Visit Provider Registered Nurse Diabetes Educator | DX: E11.65 Type 2 diabetes mellitus with hyperglycemia (principal) | CPT/HCPCS: 99211 ==

== ENCOUNTER 2024-10-03 14:40 | Outpatient (REF) | payer MEDICARE, BC, SELFPAY ==
--- OUTSIDE RECORDS SUMMARY | 2024-10-03 14:47 | XMS_ITS | Data Portability ---
Author Organization JENIFER GREENBERG MD [facility], Main Office Address [address] [place] [id number] Assessment No assessment recorded. Plan of Treatment Reminders Order Date Submit Date Provider Last Modified By Organization Details Last Modified Time Details Appointments HBV FOLLOW UP 2024 11:00A M Marie Okeefe MD Not available Not available Not available Lab CBC w/ diff 2022 023 [email or web address] [facility], [address], [place], [address], 09/26/2023 16:30:38 electroly george panel, blood 2022 023 [email or web address] [facility], [address], [place], [address], 09/26/2023 16:30:38 ALT (alanine aminotran sferase), serum or plasma 2022 023 LISS [facility], [address], [place], [address], 08/23/2023 21:34:23 AST/SGOT (aspartat e aminotran sferase), serum or plasma 2022 023 LISS [facility], [address], [place], [address], 08/23/2023 21:34:24 creatinin e w/ estimated GFR (eGFR), serum or plasma 2022 023 [facility], [address], [address], [place], [address], 09/26/2023 16:30:39 hepatitis C virus Ab, serum 2022 023 [place] [facility], [address], [address], [place], [address], 08/23/2023 23:21:23 RPR (rapid plasma reagin), serum 2022 023 [email or web address] [facility], [address], [address], [place], [address], 09/26/2023 16:30:39 hepatitis B DNA, quantitat chandrakant, serum 2022 023 LISS [facility], [address], [address], [place], [address], 08/29/2023 15:10:11 unlisted lab - shelton fibrosure 2022 023 [place] [facility], [address], [address], [place], [address], 08/27/2023 18:06:18 creatinin e w/ estimated GFR (eGFR), serum or plasma 2023 024 LISS [facility], [address], [address], [place], [address], 07/04/2024 10:07:04 hepatitis C virus Ab, serum 2023 024 [email or web address] [facility], [address], [address], [place], [address], 07/10/2024 11:39:02 hepatitis B DNA, quantitat chandrakant, serum 2023 024 [email or web address] [facility], [address], [address], [place], [address], 07/10/2024 11:39:02 unlisted lab - alb+ALP+A LT+AST+tb garcía+PT 2023 024 [facility], [address] [facility], [facility], [place], [address], 07/04/2024 10:07:03 Referral None recorded. Procedures None recorded. Surgeries None recorded. Imaging None recorded. Medication Orders entecavir 0.5 mg tablet 2022 023 [facility], [facility], [place], [address], 08/23/2023 14:44:06 entecavir 0.5 mg tablet 2023 024 [facility], [facility], [place], [address], 07/03/2024 12:35:02 Patient TargetsNo targets recorded. Patient InstructionsNo instructions recorded. Reason for Referral None Reported. Results Created Date Observation Date Name Description Value Unit Range Abnormal Flag Note LastModifiedBy Organization Detail LastModifiedTime 08/23/2008/23/2023 COMPL ETE CBC WITH DIFF WBC 7.8 K/mm3 (4.0-1 1.0) Not Available [facility] [address] [place], [address], 08/23/2023 21:06:07 08/23/2008/23/2023 COMPL ETE CBC WITH DIFF RBC 5.03 M/mm3 (4.70- 6.10) Not Available [facility] [address] [place], [address], 08/23/2023 21:06:07 08/23/2008/23/2023 COMPL ETE CBC WITH DIFF HGB 14.9 gm/dL (13.7- 17.1) Not Available [facility] [address] [place], [address], 08/23/2023 21:06:07 08/23/20 23 08/23/2023 COMPL ETE CBC WITH DIFF HCT 45.5 % (40.5- 50.0) Not Available [facility] [address] [place], [address], 08/23/2023 21:06:07 08/23/20 23 08/23/2023 COMPL ETE CBC WITH DIFF MCV 90.5 fL (80.0- 94.0) Not Available [facility] [address] [place], [address], 08/23/2023 21:06:07 08/23/20 23 08/23/2023 COMPL ETE CBC WITH DIFF MCH 29.6 pg (27.0- 34.0) Not Available [facility] [address] [place], [address], 08/23/2023 21:06:07 08/23/20 23 08/23/2023 COMPL ETE CBC WITH DIFF MCHC 32.7 g/dL (33.0- 37.0) low Not Available [facility] [address] [place], [address], 08/23/2023 21:06:07 08/23/20 23 08/23/2023 COMPL ETE CBC WITH DIFF plt 286 K/mm3 (150-4 60) Not Available [facility] [address] [place], [address], 08/23/2023 21:06:07 08/23/20 23 08/23/2023 COMPL ETE CBC WITH DIFF RDW-SD 44.6 fL (<47.0 ) Not Available [facility] [address] [place], [address], 08/23/2023 21:06:07 08/23/20 23 08/23/2023 COMPL ETE CBC WITH DIFF MPV 8.9 fL (9.4-1 2.4) low Not Available [facility] [address] [place], [address], 08/23/2023 21:06:07 08/23/20 23 08/23/2023 COMPL ETE CBC WITH DIFF automated NRBC 0.0 #/100 _WBC' s Not Available [facility] [address] [place], [address], 08/23/2023 21:06:07 08/23/20 23 08/23/2023 COMPL ETE CBC WITH DIFF abs. NRBC 0.0 K/mm3 Not Available [facility] [address] [place], [address], 08/23/2023 21:06:07 08/23/20 23 08/23/2023 COMPL ETE CBC WITH DIFF neut # 5.5 K/mm3 (1.3-7 .0) Not Available [facility] [address] [place], [address], 08/23/2023 21:06:07 08/23/20 23 08/23/2023 COMPL ETE CBC WITH DIFF lymph # 1.3 K/mm3 (0.8-3 .1) Not Available [facility] [address] [place], [address], 08/23/2023 21:06:07 08/23/20 23 08/23/2023 COMPL ETE CBC WITH DIFF mono# 0.7 K/mm3 (0.4-1 .3) Not Available [facility] [address] [place], [address], 08/23/2023 21:06:07 08/23/20 23 08/23/2023 COMPL ETE CBC WITH DIFF eo # 0.2 K/mm3 (0.0-0 .4) Not Available [facility] [address] [place], [address], 08/23/2023 21:06:07 08/23/20 23 08/23/2023 COMPL ETE CBC WITH DIFF baso # 0.1 K/mm3 (0.0-0 .1) Not Available [facility] [address] [place], [address], 08/23/2023 21:06:07 08/23/20 23 08/23/2023 COMPL ETE CBC WITH DIFF abs. imm gran 0.0 K/mm3 Not Available [facility] [address] [place], [address], 08/23/2023 21:06:07 08/23/20 23 08/23/2023 COMPL ETE CBC WITH DIFF neut 70.6 % (44-76 ) Not Available [facility] [address] [place], [address], 08/23/2023 21:06:07 08/23/20 23 08/23/2023 COMPL ETE CBC WITH DIFF lymph 16.6 % (15-43 ) Not Available [facility] [address] [place], [address], 08/23/2023 21:06:07 08/23/20 23 08/23/2023 COMPL ETE CBC WITH DIFF monocyte 9.3 % (4.5-1 0.5) Not Available [facility] [address] [place], [address], 08/23/2023 21:06:07 08/23/20 23 08/23/2023 COMPL ETE CBC WITH DIFF eo 2.2 % (0-6) Not Available [facility] [address] [place], [address], 08/23/2023 21:06:07 08/23/20 23 08/23/2023 COMPL ETE CBC WITH DIFF baso 0.9 % (0-2) Not Available [facility] [address] [place], [address], 08/23/2023 21:06:07 08/23/20 23 08/23/2023 COMPL ETE CBC WITH DIFF imm gran 0.4 % Not Available [facility] [address] [place], [address], 08/23/2023 21:06:07 08/23/20 23 08/23/2023 ALT ALT 24 U/L (0-41) Not Available [facility] [address] [place], [address], 08/23/2023 21:34:22 08/23/20 23 08/23/2023 AST AST 19 U/L (0-40) Not Available [facility] [address] [place], [address], 08/23/2023 21:34:24 08/23/20 23 08/23/2023 CREAT ININE creatinine 1.6 mg/dL (0.7-1 .2) high Not Available [facility] [address] [place], [address], 08/23/2023 21:34:25 08/23/20 23 08/23/2023 CREAT ININE [...] Not Available [facility] [address], [address], 08/23/2023 21:34:25 08/23/20 23 08/23/2023 ELECT ROLYT ES sodium 137 mmol/ L (133-1 45) Not Available [facility] [address] [place], [address], 08/23/2023 21:34:25 08/23/20 23 08/23/2023 ELECT ROLYT ES potassium 4.2 mmol/ L (3.6-5 .2) Not Available [facility] [address] [place], [address], 08/23/2023 21:34:25 08/23/20 23 08/23/2023 ELECT ROLYT ES chloride 98 mmol/ L (98-10 7) Not Available [facility] [address], [address], 08/23/2023 21:34:25 08/23/20 23 08/23/2023 ELECT ROLYT ES bicarbonate 28 mmol/ L (22-29 ) Not Available [facility] [address] [place], [address], 08/23/2023 21:34:25 08/23/20 23 08/23/2023 ELECT ROLYT ES anion gap 11 (4-17) Not Available [facility] [address] [place], [address], 08/23/2023 21:34:25 08/23/20 23 08/23/2023 ANTI- HEPAT ITIS C anti-hepatit is C (neg) normal NEGAT CHANDRAKANT Refer ence range : Negat chandrakant This test was perfo rmed on the Abbot t Archi tect immun oassa y syste m. Not Available [facility] [address] [place], [address], 08/23/2023 23:21:23 08/23/20 23 08/23/2023 SYPHI LIS TESTI NG syphilis screen by [facility] (neg) normal NEGAT CHANDRAKANT Refer ence range : Negat chandrakant This test was perfo rmed on the Abbot t Archi tect immun oassa y syste m. Not Available [facility] [address] [place], [address], 08/23/2023 23:21:24 08/23/20 23 08/23/2023 SYPHI LIS TESTI NG RPR titer result NOT INDICA BENJAMIN Not Available [facility] [address] [place], [address], 08/23/2023 23:21:24 08/23/20 23 08/23/2023 SYPHI LIS TESTI NG tppa result NOT INDICA BENJAMIN Not Available [facility] [address] [place], [address], 08/23/2023 23:21:24 08/23/20 23 08/23/2023 SYPHI LIS [...] Available [facility] [address] [place], [address], 08/23/2023 23:21:24 08/23/20 23 08/27/2023 SHELTON FIBRO SURE fibrosis score 0.64 high Refer ence range : 0.00 to 0.21 Not Available [facility] [address] [place], [address], 08/27/2023 18:06:18 08/23/2008/27/2023 SHELTON FIBRO SURE fibrosis stage Commen t (NOTE ) F3-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 Not Available [facility] [address] [place], [address], 08/27/2023 18:06:18 08/23/20 23 08/27/2023 SHELTON FIBRO SURE steatosis score 0.64 high Refer ence range : 0.00 to 0.40 Not Available [facility] [address] [place], [address], 08/27/2023 18:06:18 08/23/20 23 08/27/2023 SHELTON FIBRO SURE steatosis grade Commen t (NOTE ) S2 - S3 Moder ate to Sever e Steat osis (Clin icall y Signi fican t) (34-1 00%) Not Available [facility] [address] [place], [address], 08/27/2023 18:06:18 08/23/20 23 08/27/2023 SHELTON FIBRO SURE shelton score 0.66 high Refer ence range : 0.00 to 0.25 Not Available [facility] [address] [place], [address], 08/27/2023 18:06:18 08/23/20 23 08/27/2023 SHELTON FIBRO SURE shelton grade Commen t (NOTE ) N2 - Moder ate SHELTON Not Available [facility] [address] [place], [address], 08/27/2023 18:06:18 08/23/2008/27/2023 SHELTON FIBRO SURE alpha 2 macroglobuli ns qn(fib) 415 high Refer ence range : 110 to 276 Unit: mg/dL Not Available [facility] [address] [place], [address], 08/27/2023 18:06:18 08/23/20 23 08/27/2023 SHETLON FIBRO SURE haptoglobin( fibrosure) 198 Refer ence range : 34 to 355 Unit: mg/dL Not Available [facility] [address] [place], [address], 08/27/2023 18:06:18 08/23/20 23 08/27/2023 SHELTON FIBRO SURE apolipoprote in(fibrosure ) 110 Refer ence range : 101 to 178 Unit: mg/dL Not Available [facility] [address] [place], [address], 08/27/2023 18:06:18 08/23/2008/27/2023 SHELTON FIBRO SURE bilirubin,to ella(fibrosur e) 0.4 Refer ence range : 0.0 to 1.2 Unit: mg/dL Not Available [facility] [address] [place], [address], 08/27/2023 18:06:18 08/23/2008/27/2023 SHELTON FIBRO SURE GGT(fibrosur e) 19 Refer ence range : 0 to 65 Unit: IU/L Not Available [facility] [address] [place], [address], 08/27/2023 18:06:18 08/23/20 23 08/27/2023 SHELTON FIBRO SURE ALT(SGPT)p5p (fibrosure) 28 Refer ence range : 0 to 55 Unit: IU/L Not Available [facility] [address] [place], [address], 08/27/2023 18:06:18 08/23/20 23 08/27/2023 SHELTON FIBRO SURE AST (SGOT) p5p 20 Refer ence range : 0 to 40 Unit: IU/L Not Available [facility] [address] [place], [address], 08/27/2023 18:06:18 08/23/20 23 08/27/2023 SHELTON FIBRO SURE cholesterol total 116 Refer ence range : 100 to 199 Unit: mg/dL Not Available [facility] [address] [place], [address], 08/27/2023 18:06:18 08/23/20 23 08/27/2023 SHELTON FIBRO SURE glucose serum 216 high Refer ence range : 70 to 99 Unit: mg/dL Not Available [facility] [address] [place], [address], 08/27/2023 18:06:18 08/23/20 23 08/27/2023 SHELTON FIBRO SURE triglyceride s 124 Refer ence range : 0 to 149 Unit: mg/dL Not Available [facility] [address] [place], [address], 08/27/2023 18:06:18 08/23/20 23 08/27/2023 SHELTON FIBRO SURE interpretati ons Commen t (NOTE ) Quant itati ve resul ts of 10 bioch emica ls in combi natio n with age and gende r, are diana zed using a compu tatio nal algor ithm to provi de a quant itati ve surro gate marke r (0.0- 1.0) of liver fibro sis ([place] vir F0-F4 ), hepat ic steat osis [...] had signi fican t NAFLD fibro sis ([place] vir F2-F4 ) and 11% had cirrh [...] Available [facility] [address] [place], [address], 08/27/2023 18:06:18 08/23/2008/27/2023 SHELTON FIBRO SURE fibrosis [...] [facility] [address] [place], [address], 08/27/2023 18:06:18 08/23/20 23 08/27/2023 SHELTON FIBRO [...] [facility] [address] [place], [address], 08/27/2023 18:06:18 08/23/20 23 08/27/2023 SHELTON FIBRO SURE shelton scoring Commen t (NOTE ) < EQ 0.25 EQ N0 - No SHELTON 0.25 - 0.50 EQ N1 - Mild SHELTON 0.50 - 0.75 EQ N2 - Moder ate SHELTON >0.75 EQ N3 - Sever e SHELTON Not Available [facility] [address], [place], [address], 08/27/2023 18:06:18 08/23/20 23 08/27/2023 SHELTON FIBRO SURE limitations Commen t (NOTE ) [...] [facility] [address] [place], [address], 08/27/2023 18:06:18 08/23/20 23 08/27/2023 SHELTON FIBRO [...] conta ct custo marc servi ce at [phone]. Refer ences : 1. Jennifer Lopez et [...] Not Available [facility] [address] [place], [address], 08/27/2023 18:06:18 08/23/20 23 08/27/2023 SHELTON FIBRO SURE methodology Commen t (NOTE ) The diana george teste d are perfo rmed by [facility] [employer]- Speci fic metho ds. Not inten ded for use with other diagn ostic consi derat ions. Test perfo rmed at [facility] [place] , [facility] , [place] [address] Not Available [facility] [address] [place], [address], 08/27/2023 18:06:18 08/23/20 23 08/29/2023 HEPAT ITIS B QUANT ITATI VE, PLASM A hepatitis B quantitative , plas IU/mL Not detec benjamin HBV DNA was not detec benjamin in the speci men. Resul t repor benjamin [facility] Testi ng perfo rmed by real time PCR utili zing SHANNON Pact0 HBV test. To preve nt error s [...] Available [facility] [address] [place], [address], 08/29/2023 15:10:11 08/23/20 23 08/29/2023 HEPAT ITIS B QUANT ITATI VE, PLASM A hbvlog LOG value not calcul ated logiu /mL Not Available [facility] [address], [place], [address], 08/29/2023 15:10:11 07/03/20 24 07/04/2024 ALB+A LP+AL T+AST +TBIL I+PT albumin 4.3 g/dL 3.8-4. 8 normal Not Available [facility] ([facility]) [address] [place], [address], 07/04/2024 10:07:03 07/03/20 24 07/04/2024 ALB+A LP+AL T+AST +TBIL I+PT bilirubin, total 0.4 mg/dL 0.0-1. 2 normal Not Available [facility] ([facility]) [address] [place], [address], 07/04/2024 10:07:03 07/03/20 24 07/04/2024 ALB+A LP+AL T+AST +TBIL I+PT alkaline phosphatase 96 IU/L 44-121 normal Not Available [facility] ([facility]) [address] [place], [address], 07/04/2024 10:07:03 07/03/20 24 07/04/2024 ALB+A LP+AL T+AST +TBIL I+PT AST (SGOT) 20 IU/L 0-40 normal Not Available [facility] ([facility]) [address] [facility], [place], [address], 07/04/2024 10:07:03 07/03/20 24 07/04/2024 ALB+A LP+AL T+AST +TBIL I+PT ALT (SGPT) 16 IU/L 0-44 normal Not Available [facility] ([facility]) [address] [facility], [place], [address], 07/04/2024 10:07:03 07/03/2007/04/2024 ALB+A LP+AL T+AST +TBIL [...] range 2.5 - 3.5 Not Available [facility] ([facility]) [address] [facility], [place], [address], 07/04/2024 10:07:03 07/03/20 24 07/04/2024 ALB+A LP+AL T+AST +TBIL I+PT prothrombin time 11.3 sec 9.1-12 .0 normal Not Available [facility] ([facility]) [address] [facility], [place], [address], 07/04/2024 10:07:03 07/03/2007/04/2024 GLOM FILT RATE, ESTIM ATED creatinine 1.72 mg/dL 0.76-1 .27 above high normal Not Available [facility] ([facility]) [address] [place], [address], 07/04/2024 10:07:04 07/03/20 24 07/04/2024 GLOM FILT RATE, ESTIM ATED eGFR 42 mL/mi n/1.7 3 >59 below low normal Not Available [facility] ([facility]) [address] [facility], [place], [address], 07/04/2024 10:07:04 07/03/20 24 07/04/2024 HCV ANTIB MIYA RFX TO QUANT PCR HCV Ab Non Reacti ve non reacti ve Not Available [facility] ([facility]) [address] [facility], [place], [address], 07/04/2024 10:07:05 07/03/20 24 07/04/2024 HCV ANTIB MIYA RFX TO QUANT PCR interpretati on: Commen t Not infec benjamin with HCV unles s early or acute infec tion is suspe cted (whic h may be delay ed in an immun ocomp romis ed indiv idual ), or other evide nce exist s to indic ate HCV infec tion. Not Available [facility] ([facility]) [address] [facility], [place], [address], 07/04/2024 10:07:05 07/03/20 24 07/04/2024 HEPAT ITIS B SURF AB QUANT hepatitis B surf Ab quant 62.9 mIU/m L immuni ty>10 Statu s of Immun ity Anti- HBs Level ----- ----- ----- --- ----- ----- ---- Incon siste nt with Immun ity 0.0 - 10.0 Consi stent with Immun ity >10.0 Not Available [facility] ([facility]) [address] [facility], [place], [address], 07/04/2024 10:07:06 08/26/20 23 06/20/2023 US, abdom en No observ ation record ed. Not Available 08/26 16:46:31 07/05/20 24 03/08/2024 imagi ng/di agnos tic resul t No observ ation record ed. [email or web address] Not Available 07/05 10:01:27 07/05/20 24 02/13/2024 imagi ng/di agnos tic resul t No observ ation record ed. [email or web address] Not Available 07/05 10:04:14 Result Notes None recorded. Problems Name Problem SNOMED Code Status Onset Date Resolution Date Notes Provider Name and Address Organization Details Recorded Time Cholelith iasis with obstructi on 90610521 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 with obstructio n; 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; Report Immunity to Registry: Yes; Notes: u/s 2010; Not Available [facility] 4 06:58:53 Chronic obstructi ve pulmonary disease 14614473 Active 2019 Chronic obstructiv e lung disease; snomeddesc ription: Chronic obstructiv e lung disease; Report Immunity to Registry: Yes; Notes: pt reports dx by PCP; Chronic obstructiv e pulmonary disease, unspecifie d; snomeddesc ription: Chronic obstructiv e lung disease; Report Immunity to Registry: Yes; Notes: pt reports dx by PCP; Not Available [facility] 4 06:58:53 Cerebrova scular accident 730740211 Active 2019 Cerebrovas cular accident; snomeddesc ription: Cerebrovas cular accident; Report Immunity to Registry: Yes; Notes: hx; Not Available [facility] 4 06:58:53 Chronic kidney disease 477543702 Active 2021 Chronic kidney disease; snomeddesc ription: Chronic kidney disease; Report Immunity to Registry: Yes; Notes: 03/2021 eGFR =34; Not Available [facility] 4 06:58:53 Chronic type B viral hepatitis 20784891 Active 2022 Chronic type B viral hepatitis; [...] 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; F3 2020; Not Available [facility] 4 06:58:53 Myocardia l infarctio n 78060031 Active 2013 Myocardial infarction ; snomeddesc ription: Myocardial infarction ; Report Immunity to Registry: Yes; Notes: 07/03/14 stent x 3; Not Available [facility] 4 06:58:53 Gallbladd er and bile duct calculi 959728327 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; 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; Report Immunity to Registry: Yes; Notes: u/s 2010; Not Available [facility] 4 06:58:53 Abdominal aortic aneurysm 523449729 Active 2013 Abdominal aortic aneurysm without mention of rupture; snomeddesc ription: Abdominal aortic aneurysm; Report Immunity to Registry: Yes; Abdominal aortic aneurysm; snomeddesc ription: Abdominal aortic aneurysm; Report Immunity to Registry: Yes; Not Available [facility] 4 06:58:53 Acute myocardia l infarctio n 16491558 Active 2013 Acute myocardial infarction , unspecifie d site; snomeddesc ription: Myocardial infarction ; Report Immunity to Registry: Yes; Notes: 07/03/14 stent x 3; Not Available [facility] 4 06:58:54 Cerebral infarctio n 442447972 Active 2019 Cerebral infarction , unspecifie d; snomeddesc ription: Cerebrovas cular accident; Report Immunity to Registry: Yes; Notes: hx; Not Available [facility] 4 06:58:54 Problem Notes None recorded. Procedures Surgical History None recorded. Imaging Results Imaging Date Name Status LastModified by Organiz [facility] Details LastModified Time 06/20/2023 US, abdomen completed [email or web address] Information n ot available 08/26/2023 16:46:31 03/08/2024 imaging/diag nostic result completed [email or web address] Information not available 07/05/2024 10:01:27 02/13/2024 imaging/diag nostic result completed [email or web address] Information not available 07/05/2024 10:04:14 Procedure Notes [...] no; Not Available Not Available Not Available [employer] Test strips 0 Quantity : 100; [...] 19,400 unit/0.65 mL subcutane ous suspensio n 14071 Quantity : 1; Duration : 1; 0 [...] Pneumoco ccal conjugat e PCV20, polysacc haride [id number] conjugat e, adjuvant , PF; SU_FULL_ NAME: [...] Updated DateTime 3 172.72 cm 22.1 kg/m2 16841.6 9 g 98 [degF] 98 % 98 % 68 /min 110 mm[Hg] 78 mm[Hg] Eunice OKEEFE MD [facility] 3 14:31:17 Date Recorded Body height Heart rate Respiratory rate Body temperature Body mass index (BMI) Body weight Oxygen saturation Oxygen saturation in Arterial blood by Pulse oximetry Systolic blood pressure Diastolic blood pressure Provider Name and Address Organization Details Last Updated DateTime 4 172.72 cm 56 /min 10 /min 98.5 [degF] 23.4 kg/m2 92099.2 2 g 98 % 98 % 118 mm[Hg] 58 mm[Hg] Daniela OKEEFE MD [facility] 4 12:30:04 Social History Question Answer Notes LastModified by Organizat ion Details LastModified Time Tobacco Smoking Status Never 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 No Information not available 08/23/2023 Are You Deaf Or Do You Have Serious Difficulty Hearing? No [email or web address] Information not available 08/23/2023 Which Of Your Hands Is Dominant? Right [email or web address] Information not available 08/23/2023 Do You Feel Stressed (tense, Restless, Nervous, Or Anxious, Or Unable To Sleep At Night)? [id number] [email or web address] Information not available 08/23/2023 Sex: Male Functional Status Question Answer Note LastModified by Organizat ion Details LastModified Time Do you have difficulty walking or climbing stairs? Yes stroke [email or web address] Information not available 08/23/2023 Do you have transportation difficulties? No [email or web address] Information not available 08/23/2023 Are you able to walk? YESASSIST pt walks with a dorene [email or web address] Information not available 08/23/2023 Do you have difficulty doing errands alone? No [email or web address] Information not available 08/23/2023 Are you able to care for yourself? Yes [email or web address] Information n ot available 08/23/2023 Do you have difficulty dressing or bathing? Yes pt has a person that helps with bathing and dressing [email or web address] Information not available 08/23/2023 Mental Status Question Answer Note LastModified by Organization D etails LastModified Time Do you have difficulty concentrating, remembering or making decisions? No [email or web address] Information no t available 08/23/2023 Family History Nothing Reported Notes:Family history unknown , Response Property: Yes; , No known relatives, Response Property: Yes; Medical History Condition Response Coronary Artery Disease Y Heart Disease Y Stroke Y Diverticulitis Y Immunizations Vaccine Type Date Status Note Provider Nam e and Address Organization Details Recorded Time Influenza, split virus, quadrivalent, preservative 2 completed Not Available [facility]13/2023 06:54:23 Influenza, split virus, quadrivalent, preservative 1 completed Not Available [facility] 12/13/2023 06:54:24 Past Encounters Encounter ID Performer Location Encounter Start Date Encounter Closed Date Diagnosis/Indication Diagnosis SNOMED-CT Code Diagnosis ICD10 Code [id number] Marie Okeefe MD Main Office [address] [place] [address] 08/23/2023 14:09:45 08/23/2023 14:48:23 Type B viral hepatitis [id number] B19.10 [id number] Marie Okeefe MD Main Office [address] [place] [address] 07/03/2024 12:11:28 07/03/2024 12:39:10 Type B viral hepatitis [id number] B19.10 Health Concerns Section Related Observation LastModified by Organization Detai ls LastModified Time None Recorded Concern Status LastModified by Organization Details LastModified Time None Recorded Advance Directives Directive None Recorded Payers Encounter Date Sequence Insurance Name Policy Number Policy Garcia Covered Member ID Garcia Member ID Guarantor Name 08/23/2023 1 [place] [employer] Phan Gipson [id number] Phan Gipson 08/23/2023 2 [facility] [facility] [id number] Phan Gipson [id number] Phan Gipson 07/03/2024 1 [place] [facility] Phan Gipson [id number] Phan Gipson 07/03/2024 2 [facility] [employer] [id number] Phan Gipson [id number] Phan Gipson Notes Date Note Type Note [...] booster; will get arexvy. Marie Okeefe MD [address] [place] [address], [phone], [place] JENIFER OKEEFE MD [facility] 08/23/2023 16:59:39 4 text/html f/u HBV. CKDon [...] booster; will get arexvy. Marie Okeefe MD [address] [place] [address], [phone], [place] JENIFER OKEEFE MD [facility] 07/03/2024 12:46:44
[2024-10-03 16:19] LABS: Leukocytes Stool Qualitative NEGATIVE (NEGATIVE)
[2024-10-03 18:28] LABS: CDiff Gene PCR NEGATIVE (Negative)
[2024-10-04 09:22] LABS: Adenovirus F 40/41 Not Detected (Not Detect.); Astrovirus Not Detected (Not Detect.); Campylobacter Not Detected (Not Detect.); Cryptosporidium Not Detected (Not Detect.); Cyclospora cayetanensis Not Detected (Not Detect.); E. coli EAEC Not Detected (Not Detect.); E. coli EPEC Not Detected (Not Detect.); E. coli ETEC Not Detected (Not Detect.); E. coli STEC Not Detected (Not Detect.); Entamoeba histolytica Not Detected (Not Detect.); Giardia lamblia Not Detected (Not Detect.); Norovirus GI/GII Not Detected (Not Detect.); Plesiomonas shigelloides Not Detected (Not Detect.); Rotavirus A Not Detected (Not Detect.); Salmonella Not Detected (Not Detect.); Sapovirus Not Detected (Not Detect.); Shigella sp./EIEC Not Detected (Not Detect.); Vibrio Not Detected (Not Detect.); Vibrio Cholerae Not Detected (Not Detect.); Yersinia enterocolitica Not Detected (Not Detect.)
[2024-10-11 00:28] LABS: Calprotectin, Fecal 132 mcg/g
== END 2024-10-03 14:41 | disposition home or self-care (01) ==
LOC: HO.LNP 14:40
PROVIDERS: Visit Provider Internal Medicine
DX: R19.7 Diarrhea, unspecified (principal)
CPT/HCPCS: 83993; 87177; 87209; 87329; 87493; 87507; 89055

== ENCOUNTER 2024-10-07 09:14 | Day surgery (SDC) | payer MEDICARE, BC, SELFPAY ==
[2024-09-16 16:34] VITALS: BMI 23.6
--- NOTE | 2024-10-03 13:47 | HO.ANESPROP2 ---
Documented by User: Ani Cristina NP 10/03/24 13:49 HPI - Anesthesia Eval Consult details Narrative: 73yo M for Left Cataract Multifocal with IOL Insertion, Trabeculectomy No previous cataract on record [facility]. Per 06/2024 office visit: Diffuse vascular disease in this elderly gentleman including prior CAD and stenting as well as peripheral vascular disease, renal artery stenosis, abdominal aortic aneurysm. Continue aggressive risk factor modification. Currently on dual antiplatelet therapy which should continue [...] Significant dysautonomia syndrome related to diabetes and autonomic dysfunction as well as diffuse and significant calcific vascular disease. Blood pressure is labile but adequately control on current therapy. PMFSH Active Problems Active Problems: All Active Problems COVID-19 (Acute) Dysautonomia orthostatic hypotension syndrome (Acute) Orthostatic hypotension (Acute) Left arm numbness (Acute) Left arm weakness (Acute) Uncontrolled diabetes mellitus with hyperglycemia (Acute) Status post placement of implantable loop recorder (Acute) Pituitary macroadenoma (Acute) T1DM (type 1 diabetes mellitus) (Acute) AAA (abdominal aortic aneurysm) (Acute) Stroke due to stenosis of right carotid artery (Acute) HLD (hyperlipidemia) (Acute) History of heart artery stent (Acute) CAD (coronary artery disease) (Acute) Hypertension (Acute) History of stent insertion of renal artery (Acute) TIA (transient ischemic attack) (Acute ~2020) Vitamin D deficiency (Acute) Past Medical History Medical History Wears dentures Chronic hepatitis B Paralysis of left upper extremity Ambulates with cane Glaucoma Diverticulosis Diabetes Bilateral cataracts Uncontrolled diabetes mellitus with hyperglycemia History of stent insertion of renal artery CAD (coronary artery disease) Carotid artery disease Pituitary adenoma Cerebral microvascular disease Multiple cerebral infarctions Left hemiparesis CKD (chronic kidney disease) stage 3, GFR 30-59 ml/min AAA (abdominal aortic aneurysm) Left renal artery stenosis Hypertensive urgency CKD (chronic kidney disease) stage 3, GFR 30-59 ml/min Peroneal neuropathy Hypertension Encounter for loop recorder check Stroke due to stenosis of right carotid artery Stroke Status post placement of implantable loop recorder CVA (cerebral vascular accident) (~2020) TIA (transient ischemic attack) (~2020) Vitamin D deficiency Pituitary macroadenoma HLD (hyperlipidemia) HTN (hypertension) T1DM (type 1 diabetes mellitus) Family History Family History Father CVD (cardiovascular disease) AAA (abdominal aortic aneurysm) Mother No problems noted. Surgical History Surgical History History of partial colectomy (~1997) History of heart artery stent History of carotid endarterectomy Social History Social History Household Members: Spouse and Family Housing: House Are you a primary hospice care transitions coordinator to a significant other at home: No Do you presently have visiting nurse or other home services: Yes ([employer] HEL[employer] 5 x week) Alcohol intake: never Comment: bed rest, unable to ambulate per md Patient Tobacco Use Status: Former Tobacco user Tobacco use type: Cigarette Years Smoked: 50+ Smoked in Last 30 Days: No Second Hand Smoke Exposure: No Use of substances other than those prescribed or required for medical reasons: No Have you been hit, kicked, punched, or otherwise hurt by someone within the past year? If so, by whom?: No Are you DNR?: No Advance Directives: Yes Advance Directives Information Provided: Yes Advance Directives on File: Yes Advance Directives Date on File: 01/09/21 Recently lost weight without trying: No Nutrition Risks: No Nutritional Risk service: No Current occupational status: unemployed and retired Meds Allergies Allergy/AdvReac Type Severity Reaction Status Date / Time No Known Allergies Allergy Verified 10/07/24 09:42 Home Medications ?Medication ?Instructions ?Recorded ?Confirmed ?Last Taken ?Type aspirin 81 mg tablet,delayed 81 mg PO DAILY 09/10/20 09/16/24 10/06/24 History release cholecalciferol (vitamin D3) 50 50 mcg PO DAILY 09/10/20 09/16/24 03/21/21 08:00 History mcg (2,000 unit) capsule latanoprost 0.005 % eye drops 1 drp ophthalmic (eye) BEDTIME 09/10/20 09/16/24 03/20/21 History (Xalatan) dorzolamide 22.3 mg-timolol 6.8 1 drp ophthalmic (eye) DAILY 01/12/21 09/16/24 03/20/21 History mg/mL eye drops albuterol sulfate 90 mcg/actuation 2 puff inhalation Q4H PRN Wheezing 02/19/21 09/16/24 03/08/21 History aerosol inhaler melatonin 5 mg tablet 5 mg PO BEDTIME 02/19/21 09/16/24 03/21/21 22:00 History entecavir 0.5 mg tablet 0.5 mg PO DAILY 05/18/21 09/16/24 Unknown History escitalopram oxalate 10 mg tablet 20 mg PO DAILY 05/18/21 09/16/24 Unknown History metoprolol succinate 100 mg 100 mg PO BID 05/19/21 09/16/24 Unknown History tablet,extended release 24 hr amlodipine 5 mg tablet 10 mg PO DAILY 01/04/22 09/16/24 Unknown History omeprazole 10 mg capsule,delayed 20 mg PO DAILY 03/01/23 09/16/24 Unknown History release cetirizine 10 mg tablet 10 mg PO DAILY 12/05/23 09/16/24 Unknown History ticagrelor 60 mg tablet 60 mg PO BID 12/05/23 09/16/24 Unknown History acetaminophen 325 mg tablet 650 mg PO Q4H PRN Pain 09/16/24 09/16/24 Unknown History Exam Height,Weight and Vital Signs: Height 5 ft 7.72 in Weight 69.853 kg Assessment and Plan Assessment Anesthesia Assessment: Chart Reviewed Documented by User: Barb Landeros MD 10/07/24 10:33 [facility] Active Problems Active Problems: All Active Problems COVID-19 (Acute) Dysautonomia orthostatic hypotension syndrome (Acute) Orthostatic hypotension (Acute) Left arm numbness (Acute) Left arm weakness (Acute) Uncontrolled diabetes mellitus with hyperglycemia (Acute) Status post placement of implantable loop recorder (Acute) Pituitary macroadenoma (Acute) T1DM (type 1 diabetes mellitus) (Acute) AAA (abdominal aortic aneurysm) (Acute) Stroke due to stenosis of right carotid artery (Acute) HLD (hyperlipidemia) (Acute) History of heart artery stent (Acute) CAD (coronary artery disease) (Acute). MS 2011 Hypertension (Acute) History of stent insertion of renal artery (Acute) CVA 2020- residual LUE weakness Vitamin D deficiency (Acute) On brilinta. Was not told to stop Past Medical History Medical History Wears dentures Chronic hepatitis B Paralysis of left upper extremity Ambulates with cane Glaucoma Diverticulosis Diabetes Bilateral cataracts Uncontrolled diabetes mellitus with hyperglycemia History of stent insertion of renal artery CAD (coronary artery disease) Carotid artery disease Pituitary adenoma Cerebral microvascular disease Multiple cerebral infarctions Left hemiparesis CKD (chronic kidney disease) stage 3, GFR 30-59 ml/min AAA (abdominal aortic aneurysm) Left renal artery stenosis Hypertensive urgency CKD (chronic kidney disease) stage 3, GFR 30-59 ml/min Peroneal neuropathy Hypertension Encounter for loop recorder check Stroke due to stenosis of right carotid artery Stroke Status post placement of implantable loop recorder CVA (cerebral vascular accident) (~2020) TIA (transient ischemic attack) (~2020) Vitamin D deficiency Pituitary macroadenoma HLD (hyperlipidemia) HTN (hypertension) T1DM (type 1 diabetes mellitus) Family History Family History Father CVD (cardiovascular disease) AAA (abdominal aortic aneurysm) Mother No problems noted. 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 If so, by whom?: No Are you DNR?: No Advance Directives: Yes Advance Directives Information Provided: Yes Advance Directives on File: Yes Advance Directives Date on File: 01/09/21 Recently lost weight without trying: No Nutrition Risks: No Nutritional Risk service: No Current occupational status: unemployed and retired Meds Allergies Allergy/AdvReac Type Severity Reaction Status Date / Time No Known Allergies Allergy Verified 10/07/24 09:42 Home Medications ?Medication ?Instructions ?Recorded ?Confirmed ?Last Taken ?Type aspirin 81 mg tablet,delayed 81 mg PO DAILY 09/10/20 09/16/24 10/06/24 History release cholecalciferol (vitamin D3) 50 50 mcg PO DAILY 09/10/20 09/16/24 03/21/21 08:00 History mcg (2,000 unit) capsule latanoprost 0.005 % eye drops 1 drp ophthalmic (eye) BEDTIME 09/10/20 09/16/24 03/20/21 History (Xalatan) dorzolamide 22.3 mg-timolol 6.8 1 drp ophthalmic (eye) DAILY 01/12/21 09/16/24 03/20/21 History mg/mL eye drops albuterol sulfate 90 mcg/actuation 2 puff inhalation Q4H PRN Wheezing 02/19/21 09/16/24 03/08/21 History aerosol inhaler melatonin 5 mg tablet 5 mg PO BEDTIME 02/19/21 09/16/24 03/21/21 22:00 History entecavir 0.5 mg tablet 0.5 mg PO DAILY 05/18/21 09/16/24 Unknown History escitalopram oxalate 10 mg tablet 20 mg PO DAILY 05/18/21 09/16/24 Unknown History metoprolol succinate 100 mg 100 mg PO BID 05/19/21 09/16/24 Unknown History tablet,extended release 24 hr amlodipine 5 mg tablet 10 mg PO DAILY 01/04/22 09/16/24 Unknown History omeprazole 10 mg capsule,delayed 20 mg PO DAILY 03/01/23 09/16/24 Unknown History release cetirizine 10 mg tablet 10 mg PO DAILY 12/05/23 09/16/24 Unknown History ticagrelor 60 mg tablet 60 mg PO BID 12/05/23 09/16/24 Unknown History acetaminophen 325 mg tablet 650 mg PO Q4H PRN Pain 09/16/24 09/16/24 Unknown History Exam Height,Weight and Vital Signs: Height 5 ft 7.72 in Weight 69.853 kg Vital Signs Temp Pulse Resp BP Pulse Ox O2 Del Method 10/07/24 09:43 98.5 F 71 16 188/81 H 99 Room Air Airway Mallampati Class: II TM Dist: >3cm Neck ROM: Full Denture: Upper Partial: Lower Loose/Missing/Broken Teeth: Yes (Loose tooth bottom front left) Heart: RRR Lungs: CTAB Assessment and Plan Assessment Anesthesia Assessment: Anesthesia Plan Discussed and Chart Reviewed Final Anesthetic Review Family History of Problems with Anesthesia: No History of Problems with Anesthesia: No NPO: Yes ASA Class: III Final Preanesthetic Review: No Changes in Pt Med Stat, Meds/Allgs Chart Reviewed, Consent Obtained/Reviewed and Anes Risks/Benef Reviewed Patient Risk: Intermediate Procedure Risk: Low Assessment/Block/Sedation in SS: Assess/Block/Sedation-SS Anesthetic Plan Anesthetic Plan: Regional Block Disposition: Standard PACU
[2024-10-07 09:43] VITALS: BP 188/81; PULSE 71; RESP 16; TEMP 36.9; O2SAT 99
[2024-10-07] MEDS: Lactated Ringers 500 ML 50 ML IV (10:04)
[2024-10-07] MEDS: Tetracaine HCl/PF 0.5% Oph Sol 4 ML DROPS 1 DROP EYE-LEFT (10:04)
[2024-10-07] MEDS: Cyclopentolate 1 % Ophth Sol 2 ML DRPBTL 1 DROP EYE-LEFT ×3 (10:05→10:10)
[2024-10-07] MEDS: Ketorolac Tromethamine 0.5% Op 10 ML DROPS 1 DROP EYE-LEFT ×3 (10:06→10:11)
[2024-10-07] MEDS: Tropicamide 1 % Ophth Sol 3 ML BTL 1 DROP EYE-LEFT ×3 (10:06→10:10)
[2024-10-07] MEDS: Phenylephrine HCL 2.5% Oph SoL 2 ML BOTTLE 1 DROP EYE-LEFT ×3 (10:07→10:11)
[2024-10-07 10:34] LABS: Glucose, Whole Blood 225 mg/dL (60-115)
--- NOTE | 2024-10-07 10:36 | MHC.SHP ---
Pre-Procedural Eval Section A - 24 Hr Update-Section A only Date of Service: 10/07/24 The patient is an INPATIENT: No Changes since office visit: No Cold of Flu in the past 2 weeks, No New Medical Problems, No Changes in Medication and No Patient answered all questions The patient has been examined within 24 hours of the surgical procedure. The History & Physical has been completed within 30 days and I have reviewed it.: Yes Section B - Complete if H&P > 30 days Chief Complaint: cataract left eye,angle glaucoma Allergies: Allergies Allergy/AdvReac Type Severity Reaction Status Date / Time No Known Allergies Allergy Verified 10/07/24 09:42 Plan Diagnosis/Plan: Unchanged I have reviewed the history and physical and performed a pertinent physical examination on my patient. No changes have occurred unless specified. Time Spent With Patient Time: Total time managing care of this patient today ____ minutes.
--- NOTE | 2024-10-07 10:37 | HO.PNOPHT ---
Ophthalmology Procedure Procedure Date of Service: 10/07/24 Ophthalmology Viscoelastic: Piotr Alext Dual Pack Pro Ophthalmology Lenses: Other Procedure Notes: PREOPERATIVE DIAGNOSIS: Left lower lid entropion POSTOPERATIVE DIAGNOSIS: Same PROCEDURE: Left lateral tarsal strip SURGEON: Tejinder Watkins M.D. ANESTHESIA: MAC with Local ESTIMATED BLOOD LOSS: None COMPLICATIONS: None After obtaining informed consent, the patient was brought to the operating room suite, placed in supine position. After adequate sedation per Anesthesia, a local injection of 2% Lidocaine was given temporally to the left periorbital area. A canthotomy cantholysis then was created first utilizing a hemostat followed by excision with Mccracken scissors out to the periosteal rim. A lateral tarsal strip was created utilizing a combination of sharp and blunt dissection with Neyda scissors, as well as 15 blade. Once the lateral tarsal strip was created, double armed 5-0 goretex suture was utilized to attach the lateral tarsal strip to the lateral temporal periorbital periosteum. The tarsal was adjusted until adequate position of the lid to globe was achieved and sutured in place. The skin was then closed with 6-0 plain suture. Erythromycin ointment was placed on the wound. The patient tolerated the procedure well and will be followed up.
[2024-10-07 11:30] VITALS: BP 183/81; PULSE 77; RESP 16; TEMP 36.8; O2SAT 100
--- NOTE | 2024-10-07 11:30 | HO.PNOPHT ---
Ophthalmology Procedure Procedure Date of Service: 10/07/24 Ophthalmology Viscoelastic: Healon Duet Dual Pack Pro Ophthalmology Lenses: Other ([id number]) Procedure Notes: PREOPERATIVE DIAGNOSIS: Decreased visual acuity left eye secondary to cataract and glaucoma POSTOPERATIVE DIAGNOSIS: Same PROCEDURE: Left cataract extraction with imultifocal ntraocular lens insertion and trabeculectomy, left eye SURGEON: Tejinder Watkins M.D. ANESTHESIA: Topical/MAC ESTIMATED BLOOD LOSS: None COMPLICATIONS: None After obtaining informed consent, the patient was brought to the operating room suite and placed in the supine position. After adequate sedation per anesthesia, topical drops of Tetracaine were given to the left eye. The eye was then prepped and draped in the usual sterile fashion. The operating room microscope was then positioned over the left eye and a lid speculum placed. 2% Lidocaine was instilled subconjunctivally. After awaiting 30 seconds, a paracentesis was created superiorly. Hemostasis was then achieved using wet field cautery. Mitomycin .4mg/ml was then placed in the conjunctival pocket and held in place for two minutes. The subconjunctival pocket was then irrigated copiously with 20 mls of BSS. Paracentesis was then created. Viscoelastic was then instilled into the anterior chamber. A crescent blade was then utilized to create a partial thickness sclera wound followed by advancement to clear cornea with the crescent blade. A keratome was then utilized to enter the anterior chamber. Capsulotomy forceps were then utilized to create a continuous circular tear capsulotomy. Hydrodissection and hydrodelineation were carried out until adequate mobilization of the nucleus occurred. Phacoemulsification was utilized to remove the dense central nucleus followed by removal of remnant cortical material utilizing the automated aspiration irrigation unit. Viscoelastic was then instilled into the posterior capsular bag followed by placement of a posterior chamber intraocular lens. Attention was then directed to create a trabeculectomy. A Yi punch was then utilized to create the trabeculectomy. The residual Viscoelastic was then removed utilizing the automated IA machine. The egress of aqueous was evaluated and found to be appropriate. The conjunctiva was then closed with a 9-0 vicryl suture. BSS was then instilled into the anterior chamber creating a superior bleb, without obvious leakage. Intracameral injection of Vigamox 0.3%, 0.1 ml and subtenon injection of Kenalog-40 0.2 ml was given followed by an atropine drop. The patient tolerated the procedure well and will be followed up in the a.m.
== END 2024-10-07 11:44 | disposition home or self-care (01) ==
PROVIDERS: PCP Family Medicine; Visit Provider Ophthalmology
PROC: (CPT 66984; principal; 2024-10-07 11:00)
PROC: (CPT 66170; 2024-10-07 11:00)
DX: H25.12 Age-related nuclear cataract, left eye (principal); H40.1122 Primary open-angle glaucoma, left eye, moderate stage; H35.033 Hypertensive retinopathy, bilateral; H18.413 Arcus senilis, bilateral; Q14.1 Congenital malformation of retina; H52.4 Presbyopia; I10 Essential (primary) hypertension; E11.9 Type 2 diabetes mellitus without complications; E78.00 Pure hypercholesterolemia, unspecified; I25.10 Atherosclerotic heart disease of native coronary artery without angina pectoris; Z95.5 Presence of coronary angioplasty implant and graft; I25.2 Old myocardial infarction; C44.329 Squamous cell carcinoma of skin of other parts of face; Z86.73 Personal history of transient ischemic attack (TIA), and cerebral infarction without residual deficits; Z79.51 Long term (current) use of inhaled steroids; Z79.82 Long term (current) use of aspirin; Z79.4 Long term (current) use of insulin; Z79.899 Other long term (current) drug therapy; Z87.891 Personal history of nicotine dependence; Z56.0 Unemployment, unspecified
CPT/HCPCS: 66984; 66170; 82947; J2004; J2250; J3301; J7315; V2788

== ENCOUNTER 2024-11-04 11:50 | Day surgery (SDC) | payer MEDICARE, BC, SELFPAY ==
[2024-09-16 16:29] VITALS: BMI 23.6
--- NOTE | 2024-09-17 14:27 | HO.ANESPROP2 ---
HPI - Anesthesia Eval Consult details Narrative: 73yo M for Right Cataract Multifocal with IOL Insertion, Trabeculectomy PMFSH Active Problems Active Problems: All Active Problems COVID-19 (Acute) Dysautonomia orthostatic hypotension syndrome (Acute) Orthostatic hypotension (Acute) Left arm numbness (Acute) Left arm weakness (Acute) Uncontrolled diabetes mellitus with hyperglycemia (Acute) Status post placement of implantable loop recorder (Acute) Pituitary macroadenoma (Acute) T1DM (type 1 diabetes mellitus) (Acute) AAA (abdominal aortic aneurysm) (Acute) Stroke due to stenosis of right carotid artery (Acute) HLD (hyperlipidemia) (Acute) History of heart artery stent (Acute) CAD (coronary artery disease) (Acute) Hypertension (Acute) History of stent insertion of renal artery (Acute) TIA (transient ischemic attack) (Acute ~2020) Vitamin D deficiency (Acute) Past Medical History Medical History (Updated 09/16/24 @ 16:42 by Loni Hi, RN) Wears dentures Chronic hepatitis B Paralysis of left upper extremity Ambulates with cane Glaucoma Diverticulosis Diabetes Bilateral cataracts Uncontrolled diabetes mellitus with hyperglycemia History of stent insertion of renal artery CAD (coronary artery disease) Carotid artery disease Pituitary adenoma Cerebral microvascular disease Multiple cerebral infarctions Left hemiparesis CKD (chronic kidney disease) stage 3, GFR 30-59 ml/min AAA (abdominal aortic aneurysm) Left renal artery stenosis Hypertensive urgency CKD (chronic kidney disease) stage 3, GFR 30-59 ml/min Peroneal neuropathy Hypertension Encounter for loop recorder check Stroke due to stenosis of right carotid artery Stroke Status post placement of implantable loop recorder CVA (cerebral vascular accident) (~2020) TIA (transient ischemic attack) (~2020) Vitamin D deficiency Pituitary macroadenoma HLD (hyperlipidemia) HTN (hypertension) T1DM (type 1 diabetes mellitus) Family History Family History Father CVD (cardiovascular disease) AAA (abdominal aortic aneurysm) Mother No problems noted. Surgical History Surgical History (Updated 09/16/24 @ 16:34 by Loni Hi, RN) History of partial colectomy (~1997) History of heart artery stent History of carotid endarterectomy Social History Social History (Updated 09/16/24 @ 16:29 by Loni Hi, RN) Household Members: Spouse and Family Housing: House Are you a primary animal care giver to a significant other at home: No Do you presently have visiting nurse or other home services: Yes (FIRE PREVENTION ENGINEER 5 x week) Alcohol intake: never Comment: bed rest, unable to ambulate per md Patient Tobacco Use Status: Former Tobacco user Tobacco use type: Cigarette Years Smoked: 50+ Smoked in Last 30 Days: No Second Hand Smoke Exposure: No Use of substances other than those prescribed or required for medical reasons: No Have you been hit, kicked, punched, or otherwise hurt by someone within the past year? If so, by whom?: No Are you DNR?: No Advance Directives: Yes Advance Directives Information Provided: No Advance Directives on File: Yes Advance Directives Date on File: 01/09/21 Healthcare Proxy: Yes (01/09/2021) Recently lost weight without trying: No Nutrition Risks: No Nutritional Risk service: No Current occupational status: unemployed and retired Meds Allergies Allergy/AdvReac Type Severity Reaction Status Date / Time No Known Allergies Allergy Verified 09/16/24 16:27 Active Medications: Current Medications Mitomycin (Mitomycin Ophth 0.2 Mg Kit) 0.2 mg EYE-RIGHT ONCE ONE Stop: 09/23/24 07:01 Home Medications ?Medication ?Instructions ?Recorded ?Confirmed ?Last Taken ?Type aspirin 81 mg tablet,delayed 81 mg PO DAILY 09/10/20 09/16/24 03/21/21 08:00 History release cholecalciferol (vitamin D3) 50 50 mcg PO DAILY 09/10/20 09/16/24 03/21/21 08:00 History mcg (2,000 unit) capsule latanoprost 0.005 % eye drops 1 drp ophthalmic (eye) BEDTIME 09/10/20 09/16/24 03/20/21 History (Xalatan) dorzolamide 22.3 mg-timolol 6.8 1 drp ophthalmic (eye) DAILY 01/12/21 09/16/24 03/20/21 History mg/mL eye drops albuterol sulfate 90 mcg/actuation 2 puff inhalation Q4H PRN Wheezing 02/19/21 09/16/24 03/08/21 History aerosol inhaler melatonin 5 mg tablet 5 mg PO BEDTIME 02/19/21 09/16/24 03/21/21 22:00 History entecavir 0.5 mg tablet 0.5 mg PO DAILY 05/18/21 09/16/24 Unknown History escitalopram oxalate 10 mg tablet 20 mg PO DAILY 05/18/21 09/16/24 Unknown History metoprolol succinate 100 mg 100 mg PO BID 05/19/21 09/16/24 Unknown History tablet,extended release 24 hr amlodipine 5 mg tablet 10 mg PO DAILY 01/04/22 09/16/24 Unknown History omeprazole 10 mg capsule,delayed 20 mg PO DAILY 03/01/23 09/16/24 Unknown History release cetirizine 10 mg tablet 10 mg PO DAILY 12/05/23 09/16/24 Unknown History ticagrelor 60 mg tablet 60 mg PO BID 12/05/23 09/16/24 Unknown History acetaminophen 325 mg tablet 650 mg PO Q4H PRN Pain 09/16/24 09/16/24 Unknown History Exam Height,Weight and Vital Signs: Height 5 ft 7.72 in Weight 69.853 kg Assessment and Plan Assessment Anesthesia Assessment: Chart Reviewed
--- NOTE | 2024-10-31 14:49 | HO.ANESPROP2 ---
Documented by User: Ani Cristina NP 10/31/24 14:50 HPI - Anesthesia Eval Consult details Narrative: 73yo M for Right Cataract Multifocal with IOL Insertion, Trabeculectomy Left cataract 10/07/24: [facility] [place] [facility] [place] Per 06/2024 office visit: Diffuse vascular disease in this elderly gentleman including prior CAD and stenting as well as peripheral vascular disease, renal artery stenosis, abdominal aortic aneurysm. Continue aggressive risk factor modification. Currently on dual antiplatelet therapy which should continue [...] Significant dysautonomia syndrome related to diabetes and autonomic dysfunction as well as diffuse and significant calcific vascular disease. Blood pressure is labile but adequately control on current therapy. PMFSH Active Problems Active Problems: All Active Problems COVID-19 (Acute) Dysautonomia orthostatic hypotension syndrome (Acute) Orthostatic hypotension (Acute) Left arm numbness (Acute) Left arm weakness (Acute) Uncontrolled diabetes mellitus with hyperglycemia (Acute) Status post placement of implantable loop recorder (Acute) Pituitary macroadenoma (Acute) T1DM (type 1 diabetes mellitus) (Acute) AAA (abdominal aortic aneurysm) (Acute) Stroke due to stenosis of right carotid artery (Acute) HLD (hyperlipidemia) (Acute) History of heart artery stent (Acute) CAD (coronary artery disease) (Acute) Hypertension (Acute) History of stent insertion of renal artery (Acute) TIA (transient ischemic attack) (Acute ~2020) Vitamin D deficiency (Acute) Past Medical History Medical History Wears dentures Chronic hepatitis B Paralysis of left upper extremity Ambulates with cane Glaucoma Diverticulosis Diabetes Bilateral cataracts Uncontrolled diabetes mellitus with hyperglycemia History of stent insertion of renal artery CAD (coronary artery disease) Carotid artery disease Pituitary adenoma Cerebral microvascular disease Multiple cerebral infarctions Left hemiparesis CKD (chronic kidney disease) stage 3, GFR 30-59 ml/min AAA (abdominal aortic aneurysm) Left renal artery stenosis Hypertensive urgency CKD (chronic kidney disease) stage 3, GFR 30-59 ml/min Peroneal neuropathy Hypertension Encounter for loop recorder check Stroke due to stenosis of right carotid artery Stroke Status post placement of implantable loop recorder CVA (cerebral vascular accident) (~2020) TIA (transient ischemic attack) (~2020) Vitamin D deficiency Pituitary macroadenoma HLD (hyperlipidemia) HTN (hypertension) T1DM (type 1 diabetes mellitus) Family History Family History Father CVD (cardiovascular disease) AAA (abdominal aortic aneurysm) Mother No problems noted. Family history of problems with anesthesia: No Surgical History Surgical History (Updated 10/30/24 @ 14:37 by Loni Hi RN) Cataract extraction status of left eye (10/07/24) History of partial colectomy (~1997) History of heart artery stent History of carotid endarterectomy History of Problems with Anesthesia: No Social History Social History Household Members: Spouse and Family Housing: House Are you a primary critical care cns to a significant other at home: No Do you presently have visiting nurse or other home services: Yes ([employer] 5 x week) Alcohol intake: never Comment: bed rest, unable to ambulate per md Patient Tobacco Use Status: Former Tobacco user Tobacco use type: Cigarette Years Smoked: 50+ Smoked in Last 30 Days: No Second Hand Smoke Exposure: No Use of substances other than those prescribed or required for medical reasons: No Have you been hit, kicked, punched, or otherwise hurt by someone within the past year? If so, by whom?: No Are you DNR?: No Advance Directives: Yes Advance Directives Information Provided: No Advance Directives on File: Yes Advance Directives Date on File: 01/09/21 Healthcare Proxy: Yes (01/09/2021) Recently lost weight without trying: No Nutrition Risks: No Nutritional Risk service: No Current occupational status: unemployed and retired Meds Allergies Allergy/AdvReac Type Severity Reaction Status Date / Time No Known Allergies Allergy Verified 11/04/24 12:13 Home Medications ?Medication ?Instructions ?Recorded ?Confirmed ?Last Taken ?Type aspirin 81 mg tablet,delayed 81 mg PO DAILY 09/10/20 11/04/24 10/06/24 History release cholecalciferol (vitamin D3) 50 50 mcg PO DAILY 09/10/20 11/04/24 03/21/21 08:00 History mcg (2,000 unit) capsule latanoprost 0.005 % eye drops 1 drp ophthalmic (eye) BEDTIME 09/10/20 11/04/24 03/20/21 History (Xalatan) dorzolamide 22.3 mg-timolol 6.8 1 drp ophthalmic (eye) DAILY 01/12/21 11/04/24 03/20/21 History mg/mL eye drops albuterol sulfate 90 mcg/actuation 2 puff inhalation Q4H PRN Wheezing 02/19/21 11/04/24 03/08/21 History aerosol inhaler melatonin 5 mg tablet 5 mg PO BEDTIME 02/19/21 11/04/24 03/21/21 22:00 History entecavir 0.5 mg tablet 0.5 mg PO DAILY 05/18/21 11/04/24 Unknown History escitalopram oxalate 10 mg tablet 20 mg PO DAILY 05/18/21 11/04/24 Unknown History metoprolol succinate 100 mg 100 mg PO BID 05/19/21 11/04/24 Unknown History tablet,extended release 24 hr amlodipine 5 mg tablet 10 mg PO DAILY 01/04/22 11/04/24 Unknown History omeprazole 10 mg capsule,delayed 20 mg PO DAILY 03/01/23 11/04/24 Unknown History release cetirizine 10 mg tablet 10 mg PO DAILY 12/05/23 11/04/24 Unknown History ticagrelor 60 mg tablet 60 mg PO BID 12/05/23 11/04/24 Unknown History acetaminophen 325 mg tablet 650 mg PO Q4H PRN Pain 09/16/24 11/04/24 Unknown History Exam Height,Weight and Vital Signs: Height 5 ft 7.72 in Weight 69.853 kg Assessment and Plan Assessment Anesthesia Assessment: Chart Reviewed Final Anesthetic Review Family History of Problems with Anesthesia: No History of Problems with Anesthesia: No Documented by User: Barb Landeros MD 11/04/24 13:33 [facility] Past Medical History Medical History Wears dentures Chronic hepatitis B Paralysis of left upper extremity Ambulates with cane Glaucoma Diverticulosis Diabetes Bilateral cataracts Uncontrolled diabetes mellitus with hyperglycemia History of stent insertion of renal artery CAD (coronary artery disease) Carotid artery disease Pituitary adenoma Cerebral microvascular disease Multiple cerebral infarctions Left hemiparesis CKD (chronic kidney disease) stage 3, GFR 30-59 ml/min AAA (abdominal aortic aneurysm) Left renal artery stenosis Hypertensive urgency CKD (chronic kidney disease) stage 3, GFR 30-59 ml/min Peroneal neuropathy Hypertension Encounter for loop recorder check Stroke due to stenosis of right carotid artery Stroke Status post placement of implantable loop recorder CVA (cerebral vascular accident) (~2020) TIA (transient ischemic attack) (~2020) Vitamin D deficiency Pituitary macroadenoma HLD (hyperlipidemia) HTN (hypertension) T1DM (type 1 diabetes mellitus) Family History Family History Father CVD (cardiovascular disease) AAA (abdominal aortic aneurysm) Mother No problems noted. Family history of problems with anesthesia: No Surgical History Surgical History (Updated 10/30/24 @ 14:37 by Loni Hi RN) Cataract extraction status of left eye (10/07/24) History of partial colectomy (~1997) History of heart artery stent History of carotid endarterectomy History of Problems with Anesthesia: No Social History Social History Household Members: Spouse and Family Housing: House Are you a primary critical care cns to a significant other at home: No Do you presently have visiting nurse or other home services: Yes ([employer]ATIONS SPECIALIST 5 x week) Alcohol intake: never Comment: bed rest, unable to ambulate per md Patient Tobacco Use Status: Former Tobacco user Tobacco use type: Cigarette Years Smoked: 50+ Smoked in Last 30 Days: No Second Hand Smoke Exposure: No Use of substances other than those prescribed or required for medical reasons: No Have you been hit, kicked, punched, or otherwise hurt by someone within the past year? If so, by whom?: No Are you DNR?: No Advance Directives: Yes Advance Directives Information Provided: No Advance Directives on File: Yes Advance Directives Date on File: 01/09/21 Healthcare Proxy: Yes (01/09/2021) Recently lost weight without trying: No Nutrition Risks: No Nutritional Risk service: No Current occupational status: unemployed and retired Meds Allergies Allergy/AdvReac Type Severity Reaction Status Date / Time No Known Allergies Allergy Verified 11/04/24 12:13 Home Medications ?Medication ?Instructions ?Recorded ?Confirmed ?Last Taken ?Type aspirin 81 mg tablet,delayed 81 mg PO DAILY 09/10/20 11/04/24 10/06/24 History release cholecalciferol (vitamin D3) 50 50 mcg PO DAILY 09/10/20 11/04/24 03/21/21 08:00 History mcg (2,000 unit) capsule latanoprost 0.005 % eye drops 1 drp ophthalmic (eye) BEDTIME 09/10/20 11/04/24 03/20/21 History (Xalatan) dorzolamide 22.3 mg-timolol 6.8 1 drp ophthalmic (eye) DAILY 01/12/21 11/04/24 03/20/21 History mg/mL eye drops albuterol sulfate 90 mcg/actuation 2 puff inhalation Q4H PRN Wheezing 02/19/21 11/04/24 03/08/21 History aerosol inhaler melatonin 5 mg tablet 5 mg PO BEDTIME 02/19/21 11/04/24 03/21/21 22:00 History entecavir 0.5 mg tablet 0.5 mg PO DAILY 05/18/21 11/04/24 Unknown History escitalopram oxalate 10 mg tablet 20 mg PO DAILY 05/18/21 11/04/24 Unknown History metoprolol succinate 100 mg 100 mg PO BID 05/19/21 11/04/24 Unknown History tablet,extended release 24 hr amlodipine 5 mg tablet 10 mg PO DAILY 01/04/22 11/04/24 Unknown History omeprazole 10 mg capsule,delayed 20 mg PO DAILY 03/01/23 11/04/24 Unknown History release cetirizine 10 mg tablet 10 mg PO DAILY 12/05/23 11/04/24 Unknown History ticagrelor 60 mg tablet 60 mg PO BID 12/05/23 11/04/24 Unknown History acetaminophen 325 mg tablet 650 mg PO Q4H PRN Pain 09/16/24 11/04/24 Unknown History Exam Height,Weight and Vital Signs: Height 5 ft 7.72 in Weight 69.853 kg Vital Signs Temp Pulse Resp BP Pulse Ox O2 Del Method 11/04/24 12:26 97.8 F 61 16 157/68 H 98 Room Air Pertinent Lab Results Pertinent Lab Results: Lab Results 11/04/24 Range/Units 12:44 POC Glucose 191 H (60-115) mg/dL Airway Mallampati Class: II TM Dist: >3cm Neck ROM: Full Denture: Upper Partial: Lower Loose/Missing/Broken Teeth: Yes (Loose tooth bottom front left) Heart: RRR Lungs: CTAB Assessment and Plan Assessment Anesthesia Assessment: Anesthesia Plan Discussed and Chart Reviewed Final Anesthetic Review Family History of Problems with Anesthesia: No History of Problems with Anesthesia: No NPO: Yes ASA Class: III Final Preanesthetic Review: No Changes in Pt Med Stat, Meds/Allgs Chart Reviewed, Consent Obtained/Reviewed and Anes Risks/Benef Reviewed Patient Risk: Intermediate Procedure Risk: Low Assessment/Block/Sedation in SS: Assess/Block/Sedation-SS Anesthetic Plan Anesthetic Plan: MAC: Disposition: Standard PACU
[2024-11-04 12:26] VITALS: BP 157/68; PULSE 61; RESP 16; TEMP 36.6; O2SAT 98; BMI 23.6
[2024-11-04] MEDS: Tetracaine HCl/PF 0.5% Oph Sol 4 ML DROPS 1 DROP EYE-RIGHT (12:30)
[2024-11-04] MEDS: Cyclopentolate 1 % Ophth Sol 2 ML DRPBTL 1 DROP EYE-RIGHT ×3 (12:33→12:57)
[2024-11-04] MEDS: Tropicamide 1 % Ophth Sol 3 ML BTL 1 DROP EYE-RIGHT ×3 (12:35→13:01)
[2024-11-04] MEDS: Ketorolac Tromethamine 0.5% Op 10 ML DROPS 1 DROP EYE-RIGHT ×3 (12:36→13:04)
[2024-11-04] MEDS: Phenylephrine HCL 2.5% Oph SoL 2 ML BOTTLE 1 DROP EYE-RIGHT ×3 (12:37→13:07)
[2024-11-04] MEDS: Lactated Ringers 500 ML 50 ML IV (12:45)
[2024-11-04 12:48] LABS: Glucose, Whole Blood 191 mg/dL (60-115)
--- NOTE | 2024-11-04 13:37 | MHC.SHP ---
Pre-Procedural Eval Section A - 24 Hr Update-Section A only Date of Service: 11/04/24 The patient is an INPATIENT: No Changes since office visit: No Cold of Flu in the past 2 weeks, No New Medical Problems, No Changes in Medication and No Patient answered all questions The patient has been examined within 24 hours of the surgical procedure. The History & Physical has been completed within 30 days and I have reviewed it.: Yes Section B - Complete if H&P > 30 days Chief Complaint: cataract right ey,acute glaucoma Allergies: Allergies Allergy/AdvReac Type Severity Reaction Status Date / Time No Known Allergies Allergy Verified 11/04/24 12:13 Plan Diagnosis/Plan: Unchanged I have reviewed the history and physical and performed a pertinent physical examination on my patient. No changes have occurred unless specified. Time Spent With Patient Time: Total time managing care of this patient today ____ minutes.
--- NOTE | 2024-11-04 13:37 | HO.PNOPHT ---
Ophthalmology Procedure Procedure Date of Service: 11/04/24 Ophthalmology Viscoelastic: Healon Duet Dual Pack Pro Ophthalmology Lenses: Other ([id number] 17.5) Procedure Notes: PREOPERATIVE DIAGNOSIS: Decreased visual acuity right eye secondary to cataract and glaucoma. POSTOPERATIVE DIAGNOSIS: Same PROCEDURE: Right cataract extraction with multifocal intraocular lens insertion and trabeculectomy, right eye SURGEON: Tejinder Watkins M.D. ANESTHESIA: Topical/MAC ESTIMATED BLOOD LOSS: None COMPLICATIONS: None After obtaining informed consent, the patient was brought to the operating room suite and placed in the supine position. After adequate sedation per anesthesia, topical drops of Tetracaine were given to the right eye. The eye was then prepped and draped in the usual sterile fashion. The operating room microscope was then positioned over the right eye and a lid speculum placed. 2% Lidocaine was instilled subconjunctivally. After awaiting 30 seconds, a paracentesis was created superiorly. Hemostasis was then achieved using wet field cautery. Mitomycin .4mg/ml was then placed in the conjunctival pocket and held in place for two minutes. The subconjunctival pocket was then irrigated copiously with 20 mls of BSS. Paracentesis was then created. Viscoelastic was then instilled into the anterior chamber. A crescent blade was then utilized to create a partial thickness sclera wound followed by advancement to clear cornea with the crescent blade. A keratome was then utilized to enter the anterior chamber. Capsulotomy forceps were then utilized to create a continuous circular tear capsulotomy. Hydrodissection and hydrodelineation were carried out until adequate mobilization of the nucleus occurred. Phacoemulsification was utilized to remove the dense central nucleus followed by removal of remnant cortical material utilizing the automated aspiration irrigation unit. Viscoelastic was then instilled into the posterior capsular bag followed by placement of a posterior chamber intraocular lens. Attention was then directed to create a trabeculectomy. A Yi punch was then utilized to create the trabeculectomy. The residual Viscoelastic was then removed utilizing the automated IA machine. The egress of aqueous was evaluated and found to be appropriate. The conjunctiva was then closed with a 9-0 vicryl suture. BSS was then instilled into the anterior chamber creating a superior bleb, without obvious leakage. Intracameral injection of Vigamox 0.3%, 0.1 ml and subtenon injection of Kenalog-40 0.2 ml was given followed by an atropine drop. The patient tolerated the procedure well and will be followed up in the a.m.
--- OUTSIDE RECORDS SUMMARY | 2024-11-04 14:05 | XMS_ITS | Data Portability ---
Author Organization JENIFER GREENBERG MD [facility], Main Office Address [address] [place] [id number] Assessment No assessment recorded. Plan of Treatment Reminders Order Date Submit Date Provider Last Modified By Organization Details Last Modified Time Details Appointments HBV FOLLOW UP 2024 11:00A M Marie Okeefe MD Not available Not available Not available Lab CBC w/ diff 2022 023 [email or web address] [facility], [address], [place] [address], 09/26/2023 16:30:38 electroly george panel, blood 2022 023 [email or web address] [facility], [address], [place], [address], 09/26/2023 16:30:38 ALT (alanine aminotran sferase), serum or plasma 2022 023 LISS [facility], [address], [place], [address], 08/23/2023 21:34:23 AST/SGOT (aspartat e aminotran sferase), serum or plasma 2022 023 LISS [facility], [address], [place], [address], 08/23/2023 21:34:24 creatinin e w/ estimated GFR (eGFR), serum or plasma 2022 023 [email or web address] [facility], [address], [address], [place], [address], 09/26/2023 16:30:39 hepatitis C virus Ab, serum 2022 023 LISS [facility], [address], [address], [place], [address], 08/23/2023 23:21:23 RPR (rapid plasma reagin), serum 2022 023 [email or web address] [facility], [address], [address], [place], [address], 09/26/2023 16:30:39 hepatitis B DNA, quantitat chandrakant, serum 2022 023 LISS [facility], [address], [address], [place], [address], 08/29/2023 15:10:11 unlisted lab - shelton fibrosure 2022 023 LISS [facility], [address], [address], [place], [address], 08/27/2023 18:06:18 creatinin e w/ estimated GFR (eGFR), serum or plasma 2023 024 LISS [facility], [address], [address], [place], [address], 07/04/2024 10:07:04 hepatitis C virus Ab, serum 2023 024 [email or web address] [facility], [address], [address], [place], [address], 07/10/2024 11:39:02 hepatitis B DNA, quantitat chandrakant, serum 2023 024 [email or web address] [facility], [address], [address], [place], [address], 07/10/2024 11:39:02 unlisted lab - alb+ALP+A LT+AST+tb garcía+PT 2023 024 [facility], [address] [facility], [facility], [place], [address], 07/04/2024 10:07:03 Referral None recorded. Procedures None recorded. Surgeries None recorded. Imaging None recorded. Medication Orders entecavir 0.5 mg tablet 2022 023 [facility], [facility], [place], [address], 08/23/2023 14:44:06 entecavir 0.5 mg tablet 2023 024 [facility], [facility], [place], [address], 07/03/2024 12:35:02 Patient TargetsNo targets recorded. Patient InstructionsNo instructions recorded. Reason for Referral None Reported. Results Created Date Observation Date Name Description Value Unit Range Abnormal Flag Note LastModifiedBy Organization Detail LastModifiedTime 08/23/2008/23/2023 COMPL ETE CBC WITH DIFF WBC 7.8 K/mm3 (4.0-1 1.0) Not Available [facility] [address] [place], [address], 08/23/2023 21:06:07 08/23/2008/23/2023 COMPL ETE CBC WITH DIFF RBC 5.03 M/mm3 (4.70- 6.10) Not Available [facility] [address] [place], [address], 08/23/2023 21:06:07 08/23/2008/23/2023 COMPL ETE CBC WITH DIFF HGB 14.9 gm/dL (13.7- 17.1) Not Available [facility] [address] [place], [address], 08/23/2023 21:06:07 08/23/20 23 08/23/2023 COMPL ETE CBC WITH DIFF HCT 45.5 % (40.5- 50.0) Not Available [facility] [address] [place], [address], 08/23/2023 21:06:07 08/23/20 23 08/23/2023 COMPL ETE CBC WITH DIFF MCV 90.5 fL (80.0- 94.0) Not Available [facility] [address] [place], [address], 08/23/2023 21:06:07 08/23/20 23 08/23/2023 COMPL ETE CBC WITH DIFF MCH 29.6 pg (27.0- 34.0) Not Available [facility] [address] [place], [address], 08/23/2023 21:06:07 08/23/20 23 08/23/2023 COMPL ETE CBC WITH DIFF MCHC 32.7 g/dL (33.0- 37.0) low Not Available [facility] [address] [place], [address], 08/23/2023 21:06:07 08/23/20 23 08/23/2023 COMPL ETE CBC WITH DIFF plt 286 K/mm3 (150-4 60) Not Available [facility] [address] [place], [address], 08/23/2023 21:06:07 08/23/20 23 08/23/2023 COMPL ETE CBC WITH DIFF RDW-SD 44.6 fL (<47.0 ) Not Available [facility] [address] [place], [address], 08/23/2023 21:06:07 08/23/20 23 08/23/2023 COMPL ETE CBC WITH DIFF MPV 8.9 fL (9.4-1 2.4) low Not Available [facility] [address] [place], [address], 08/23/2023 21:06:07 08/23/20 23 08/23/2023 COMPL ETE CBC WITH DIFF automated NRBC 0.0 #/100 _WBC' s Not Available [facility] [address] [place], [address], 08/23/2023 21:06:07 08/23/20 23 08/23/2023 COMPL ETE CBC WITH DIFF abs. NRBC 0.0 K/mm3 Not Available [facility] [address] [place], [address], 08/23/2023 21:06:07 08/23/20 23 08/23/2023 COMPL ETE CBC WITH DIFF neut # 5.5 K/mm3 (1.3-7 .0) Not Available [facility] [address] [place], [address], 08/23/2023 21:06:07 08/23/20 23 08/23/2023 COMPL ETE CBC WITH DIFF lymph # 1.3 K/mm3 (0.8-3 .1) Not Available [facility] [address] [place], [address], 08/23/2023 21:06:07 08/23/20 23 08/23/2023 COMPL ETE CBC WITH DIFF mono# 0.7 K/mm3 (0.4-1 .3) Not Available [facility] [address] [place], [address], 08/23/2023 21:06:07 08/23/20 23 08/23/2023 COMPL ETE CBC WITH DIFF eo # 0.2 K/mm3 (0.0-0 .4) Not Available [facility] [address] [place], [address], 08/23/2023 21:06:07 08/23/20 23 08/23/2023 COMPL ETE CBC WITH DIFF baso # 0.1 K/mm3 (0.0-0 .1) Not Available [facility] [address] [place], [address], 08/23/2023 21:06:07 08/23/20 23 08/23/2023 COMPL ETE CBC WITH DIFF abs. imm gran 0.0 K/mm3 Not Available [facility] [address] [place], [address], 08/23/2023 21:06:07 08/23/20 23 08/23/2023 COMPL ETE CBC WITH DIFF neut 70.6 % (44-76 ) Not Available [facility] [address] [place], [address], 08/23/2023 21:06:07 08/23/20 23 08/23/2023 COMPL ETE CBC WITH DIFF lymph 16.6 % (15-43 ) Not Available [facility] [address] [place], [address], 08/23/2023 21:06:07 08/23/20 23 08/23/2023 COMPL ETE CBC WITH DIFF monocyte 9.3 % (4.5-1 0.5) Not Available [facility] [address] [place], [address], 08/23/2023 21:06:07 08/23/20 23 08/23/2023 COMPL ETE CBC WITH DIFF eo 2.2 % (0-6) Not Available [facility] [address] [place], [address], 08/23/2023 21:06:07 08/23/20 23 08/23/2023 COMPL ETE CBC WITH DIFF baso 0.9 % (0-2) Not Available [facility] [address] [place], [address], 08/23/2023 21:06:07 08/23/20 23 08/23/2023 COMPL ETE CBC WITH DIFF imm gran 0.4 % Not Available [facility] [address] [place], [address], 08/23/2023 21:06:07 08/23/20 23 08/23/2023 ALT ALT 24 U/L (0-41) Not Available [facility] [address] [place], [address], 08/23/2023 21:34:22 08/23/20 23 08/23/2023 AST AST 19 U/L (0-40) Not Available [facility] [address] [place], [address], 08/23/2023 21:34:24 08/23/20 23 08/23/2023 CREAT ININE creatinine 1.6 mg/dL (0.7-1 .2) high Not Available [facility] [address] [place], [address], 08/23/2023 21:34:25 08/23/20 23 08/23/2023 CREAT ININE [...] Not Available [facility] [address] [place], [address], 08/23/2023 21:34:25 08/23/20 23 08/23/2023 ELECT ROLYT ES sodium 137 mmol/ L (133-1 45) Not Available [facility] [address] [place], [address], 08/23/2023 21:34:25 08/23/20 23 08/23/2023 ELECT ROLYT ES potassium 4.2 mmol/ L (3.6-5 .2) Not Available [facility] [address] [place], [address], 08/23/2023 21:34:25 08/23/20 23 08/23/2023 ELECT ROLYT ES chloride 98 mmol/ L (98-10 7) Not Available [facility] [address], [address], 08/23/2023 21:34:25 08/23/20 23 08/23/2023 ELECT ROLYT ES bicarbonate 28 mmol/ L (22-29 ) Not Available [facility] [address] [place], [address], 08/23/2023 21:34:25 08/23/20 23 08/23/2023 ELECT ROLYT ES anion gap 11 (4-17) Not Available [facility] [address] [place], [address], 08/23/2023 21:34:25 08/23/20 23 08/23/2023 ANTI- HEPAT ITIS C anti-hepatit is C (neg) normal NEGAT CHANDRAKANT Refer ence range : Negat chandrakant This test was perfo rmed on the Abbot t Archi tect immun oassa y syste m. Not Available [facility] [address] [place], [address], 08/23/2023 23:21:23 08/23/20 23 08/23/2023 SYPHI LIS TESTI NG syphilis screen by [facility] (neg) normal NEGAT CHANDRAKANT Refer ence range : Negat chandrakant This test was perfo rmed on the Abbot t Archi tect immun oassa y syste m. Not Available [facility] [address] [place], [address], 08/23/2023 23:21:24 08/23/20 23 08/23/2023 SYPHI LIS TESTI NG RPR titer result NOT INDICA BENJAMIN Not Available [facility] [address] [place], [address], 08/23/2023 23:21:24 08/23/20 23 08/23/2023 SYPHI LIS TESTI NG tppa result NOT INDICA BENJAMIN Not Available [facility] [address] [place], [address], 08/23/2023 23:21:24 08/23/20 23 08/23/2023 SYPHI LIS [...] Available [facility] [address] [place], [address], 08/23/2023 23:21:24 08/23/20 23 08/27/2023 SHELTON FIBRO SURE fibrosis score 0.64 high Refer ence range : 0.00 to 0.21 Not Available [facility] [address] [place], [address], 08/27/2023 18:06:18 08/23/2008/27/2023 SHELTON FIBRO SURE fibrosis stage Commen t (NOTE ) F3-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 Not Available [facility] [address] [place], [address], 08/27/2023 18:06:18 08/23/20 23 08/27/2023 SHELTON FIBRO SURE steatosis score 0.64 high Refer ence range : 0.00 to 0.40 Not Available [facility] [address] [place], [address], 08/27/2023 18:06:18 08/23/20 23 08/27/2023 SHELTON FIBRO SURE steatosis grade Commen t (NOTE ) S2 - S3 Moder ate to Sever e Steat osis (Clin icall y Signi fican t) (34-1 00%) Not Available [facility] [address] [place], [address], 08/27/2023 18:06:18 08/23/20 23 08/27/2023 SHELTON FIBRO SURE shelton score 0.66 high Refer ence range : 0.00 to 0.25 Not Available [facility] [address] [place], [address], 08/27/2023 18:06:18 08/23/20 23 08/27/2023 SHELTON FIBRO SURE shelton grade Commen t (NOTE ) N2 - Moder ate SHELTON Not Available [facility] [address] [place], [address], 08/27/2023 18:06:18 08/23/2008/27/2023 SHELTON FIBRO SURE alpha 2 macroglobuli ns qn(fib) 415 high Refer ence range : 110 to 276 Unit: mg/dL Not Available [facility] [address] [place], [address], 08/27/2023 18:06:18 08/23/20 23 08/27/2023 SHELTON FIBRO SURE haptoglobin( fibrosure) 198 Refer ence range : 34 to 355 Unit: mg/dL Not Available [facility] [address] [place], [address], 08/27/2023 18:06:18 08/23/20 23 08/27/2023 SHELTON FIBRO SURE apolipoprote in(fibrosure ) 110 Refer ence range : 101 to 178 Unit: mg/dL Not Available [facility] [address] [place], [address], 08/27/2023 18:06:18 08/23/2008/27/2023 SHELTON FIBRO SURE bilirubin,to ella(fibrosur e) 0.4 Refer ence range : 0.0 to 1.2 Unit: mg/dL Not Available [facility] [address] [place], [address], 08/27/2023 18:06:18 08/23/2008/27/2023 SHELTON FIBRO SURE GGT(fibrosur e) 19 Refer ence range : 0 to 65 Unit: IU/L Not Available [facility] [address] [place], [address], 08/27/2023 18:06:18 08/23/20 23 08/27/2023 SHELTON FIBRO SURE ALT(SGPT)p5p (fibrosure) 28 Refer ence range : 0 to 55 Unit: IU/L Not Available [facility] [address] [place], [address], 08/27/2023 18:06:18 08/23/20 23 08/27/2023 SHELTON FIBRO SURE AST (SGOT) p5p 20 Refer ence range : 0 to 40 Unit: IU/L Not Available [facility] [address] [place], [address], 08/27/2023 18:06:18 08/23/20 23 08/27/2023 SHELTON FIBRO SURE cholesterol total 116 Refer ence range : 100 to 199 Unit: mg/dL Not Available [facility] [address] [place], [address], 08/27/2023 18:06:18 08/23/20 23 08/27/2023 SHELTON FIBRO SURE glucose serum 216 high Refer ence range : 70 to 99 Unit: mg/dL Not Available [facility] [address] [place], [address], 08/27/2023 18:06:18 08/23/20 23 08/27/2023 SHELTON FIBRO SURE triglyceride s 124 Refer ence range : 0 to 149 Unit: mg/dL Not Available [facility] [address] [place], [address], 08/27/2023 18:06:18 08/23/20 23 08/27/2023 SHELTON FIBRO SURE interpretati ons Commen t (NOTE ) Quant itati ve resul ts of 10 bioch emica ls in combi natio n with age and gende r, are diana zed using a compu tatio nal algor ithm to provi de a quant itati ve surro gate marke r (0.0- 1.0) of liver fibro sis (Monona vir F0-F4 ), hepat ic steat osis [...] had signi fican t NAFLD fibro sis (Monona vir F2-F4 ) and 11% had cirrh [...] Available [facility] [address] [place], [address], 08/27/2023 18:06:18 08/23/2008/27/2023 SHELTON FIBRO SURE fibrosis [...] [facility] [address] [place], [address], 08/27/2023 18:06:18 08/23/20 23 08/27/2023 SHELTON FIBRO [...] [facility] [address] [place], [address], 08/27/2023 18:06:18 08/23/20 23 08/27/2023 SHELTON FIBRO SURE shelton scoring Commen t (NOTE ) < EQ 0.25 EQ N0 - No SHELTON 0.25 - 0.50 EQ N1 - Mild SHELTON 0.50 - 0.75 EQ N2 - Moder ate SHELTON >0.75 EQ N3 - Sever e SHELTON Not Available [facility] [address], [place], [address], 08/27/2023 18:06:18 08/23/20 23 08/27/2023 SHELTON FIBRO [...] [facility] [address] [place], [address], 08/27/2023 18:06:18 08/23/20 23 08/27/2023 SHELTON FIBRO [...] conta ct custo marc servi ce at [phone]. Refer ences : 1. Jennifer Lopez et [...] Not Available [facility] [address] [place], [address], 08/27/2023 18:06:18 08/23/20 23 08/27/2023 SHELTON FIBRO SURE methodology Commen t (NOTE ) The diana george teste d are perfo rmed by [facility] [employer]- Speci fic metho ds. Not inten ded for use with other diagn ostic consi derat ions. Test perfo rmed at [facility] [place] , [facility] , [place] [address] Not Available [facility] [address] [place], [address], 08/27/2023 18:06:18 08/23/20 23 08/29/2023 HEPAT ITIS B QUANT ITATI VE, PLASM A hepatitis B quantitative , plas IU/mL Not detec benjamin HBV DNA was not detec benjamin in the speci men. Resul t repor benjamin to the [facility]. Testi ng perfo rmed by real time PCR utili zing SHANNON [employer] HBV test. To preve nt error s [...] Available [facility] [address] [place], [address], 08/29/2023 15:10:11 08/23/20 23 08/29/2023 HEPAT ITIS B QUANT ITATI VE, PLASM A hbvlog LOG value not calcul ated logiu /mL Not Available [facility] [address], [place], [address], 08/29/2023 15:10:11 07/03/20 24 07/04/2024 ALB+A LP+AL T+AST +TBIL I+PT albumin 4.3 g/dL 3.8-4. 8 normal Not Available [facility] ([facility]) [address] [place], [address], 07/04/2024 10:07:03 07/03/20 24 07/04/2024 ALB+A LP+AL T+AST +TBIL I+PT bilirubin, total 0.4 mg/dL 0.0-1. 2 normal Not Available [facility] ([facility]) [address] [place], [address], 07/04/2024 10:07:03 07/03/20 24 07/04/2024 ALB+A LP+AL T+AST +TBIL I+PT alkaline phosphatase 96 IU/L 44-121 normal Not Available [facility] ([facility]) [address] [place], [address], 07/04/2024 10:07:03 07/03/20 24 07/04/2024 ALB+A LP+AL T+AST +TBIL I+PT AST (SGOT) 20 IU/L 0-40 normal Not Available [facility] ([facility]) [address] [facility], [place], [address], 07/04/2024 10:07:03 07/03/20 24 07/04/2024 ALB+A LP+AL T+AST +TBIL I+PT ALT (SGPT) 16 IU/L 0-44 normal Not Available [facility] ([facility]) [address] [facility], [place], [address], 07/04/2024 10:07:03 07/03/2007/04/2024 ALB+A LP+AL T+AST +TBIL [...] range 2.5 - 3.5 Not Available [facility] ([facility]) [address] [facility], [place], [address], 07/04/2024 10:07:03 07/03/20 24 07/04/2024 ALB+A LP+AL T+AST +TBIL I+PT prothrombin time 11.3 sec 9.1-12 .0 normal Not Available [facility] ([facility]) [address] [facility], [place], [address], 07/04/2024 10:07:03 07/03/2007/04/2024 GLOM FILT RATE, ESTIM ATED creatinine 1.72 mg/dL 0.76-1 .27 above high normal Not Available [facility] ([facility]) [address] [place], [address], 07/04/2024 10:07:04 07/03/20 24 07/04/2024 GLOM FILT RATE, ESTIM ATED eGFR 42 mL/mi n/1.7 3 >59 below low normal Not Available [facility] ([facility]) [address] [facility], [place], [address], 07/04/2024 10:07:04 07/03/20 24 07/04/2024 HCV ANTIB MIYA RFX TO QUANT PCR HCV Ab Non Reacti ve non reacti ve Not Available [facility] ([facility]) [address] [facility], [place], [address], 07/04/2024 10:07:05 07/03/20 24 07/04/2024 HCV ANTIB MIYA RFX TO QUANT PCR interpretati on: Commen t Not infec benjamin with HCV unles s early or acute infec tion is suspe cted (whic h may be delay ed in an immun ocomp romis ed indiv idual ), or other evide nce exist s to indic ate HCV infec tion. Not Available [facility] ([facility]) [address] [facility], [place], [address], 07/04/2024 10:07:05 07/03/20 24 07/04/2024 HEPAT ITIS B SURF AB QUANT hepatitis B surf Ab quant 62.9 mIU/m L immuni ty>10 Statu s of Immun ity Anti- HBs Level ----- ----- ----- --- ----- ----- ---- Incon siste nt with Immun ity 0.0 - 10.0 Consi stent with Immun ity >10.0 Not Available [facility] ([facility]) [address] [facility], [place], [address], 07/04/2024 10:07:06 08/26/20 23 06/20/2023 US, abdom en No observ ation record ed. [email or web address] Not Available 08/26 16:46:31 07/05/20 24 03/08/2024 imagi ng/di agnos tic resul t No observ ation record ed. [email or web address] Not Available 07/05 10:01:27 07/05/20 24 02/13/2024 imagi ng/di agnos tic resul t No observ ation record ed. [email or web address] Not Available 07/05 10:04:14 Result Notes None recorded. Problems Name Problem SNOMED Code Status Onset Date Resolution Date Notes Provider Name and Address Organization Details Recorded Time Cholelith iasis with obstructi on 97795878 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 with obstructio n; 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; Report Immunity to Registry: Yes; Notes: u/s 2010; Not Available [facility] 4 06:58:53 Chronic obstructi ve pulmonary disease 85161888 Active 2019 Chronic obstructiv e lung disease; snomeddesc ription: Chronic obstructiv e lung disease; Report Immunity to Registry: Yes; Notes: pt reports dx by PCP; Chronic obstructiv e pulmonary disease, unspecifie d; snomeddesc ription: Chronic obstructiv e lung disease; Report Immunity to Registry: Yes; Notes: pt reports dx by PCP; Not Available [facility] 4 06:58:53 Cerebrova scular accident 677533212 Active 2019 Cerebrovas cular accident; snomeddesc ription: Cerebrovas cular accident; Report Immunity to Registry: Yes; Notes: hx; Not Available [facility] 4 06:58:53 Chronic kidney disease 739031594 Active 2021 Chronic kidney disease; snomeddesc ription: Chronic kidney disease; Report Immunity to Registry: Yes; Notes: 03/2021 eGFR =34; Not Available [facility] 4 06:58:53 Chronic type B viral hepatitis 24085717 Active 2022 Chronic type B viral hepatitis; [...] 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; F3 2020; Not Available [facility] 4 06:58:53 Myocardia l infarctio n 11993720 Active 2013 Myocardial infarction ; snomeddesc ription: Myocardial infarction ; Report Immunity to Registry: Yes; Notes: 07/03/14 stent x 3; Not Available [facility] 4 06:58:53 Gallbladd er and bile duct calculi 741704441 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; 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; Report Immunity to Registry: Yes; Notes: u/s 2010; Not Available [facility] 4 06:58:53 Abdominal aortic aneurysm 630577885 Active 2013 Abdominal aortic aneurysm without mention of rupture; snomeddesc ription: Abdominal aortic aneurysm; Report Immunity to Registry: Yes; Abdominal aortic aneurysm; snomeddesc ription: Abdominal aortic aneurysm; Report Immunity to Registry: Yes; Not Available [facility] 4 06:58:53 Acute myocardia l infarctio n 15313033 Active 2013 Acute myocardial infarction , unspecifie d site; snomeddesc ription: Myocardial infarction ; Report Immunity to Registry: Yes; Notes: 07/03/14 stent x 3; Not Available [facility] 4 06:58:54 Cerebral infarctio n 739340699 Active 2019 Cerebral infarction , unspecifie d; snomeddesc ription: Cerebrovas cular accident; Report Immunity to Registry: Yes; Notes: hx; Not Available [facility] 4 06:58:54 Problem Notes None recorded. Procedures Surgical History None recorded. Imaging Results Imaging Date Name Status [facility]Modified by [facility] Details LastModified Time 06/20/2023 US, abdomen completed [email or web address] Information n ot available 08/26/2023 16:46:31 03/08/2024 imaging/diag nostic result completed [email or web address] Information not available 07/05/2024 10:01:27 02/13/2024 imaging/diag nostic result completed [email or web address] Information not available 07/05/2024 10:04:14 Procedure Notes [...] no; Not Available Not Available Not Available [employer] Ultra Test strips 0 Quantity : 100; [...] 19,400 unit/0.65 mL subcutane ous suspensio n [id number] Quantity : 1; Duration : 1; 0 [...] Pneumoco ccal conjugat e PCV20, polysacc haride [id number] conjugat e, adjuvant , PF; SU_FULL_ NAME: [...] Updated DateTime 3 172.72 cm 22.1 kg/m2 24450.6 9 g 98 [degF] 98 % 98 % 68 /min 110 mm[Hg] 78 mm[Hg] Eunice OKEEFE MD [facility] 3 14:31:17 Date Recorded Body height Heart rate Respiratory rate Body temperature Body mass index (BMI) Body weight Oxygen saturation Oxygen saturation in Arterial blood by Pulse oximetry Systolic blood pressure Diastolic blood pressure Provider Name and Address Organization Details Last Updated DateTime 4 172.72 cm 56 /min 10 /min 98.5 [degF] 23.4 kg/m2 30220.2 2 g 98 % 98 % 118 mm[Hg] 58 mm[Hg] Daniela OKEEFE MD [facility] 4 12:30:04 Social History Question Answer Notes LastModified by Organizat ion Details LastModified Time Tobacco Smoking Status Never 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 No [email or web address] Information not available 08/23/2023 Are You Deaf Or Do You Have Serious Difficulty Hearing? No [email or web address] Information not available 08/23/2023 Which Of Your Hands Is Dominant? Right [email or web address] Information not available 08/23/2023 Do You Feel Stressed (tense, Restless, Nervous, Or Anxious, Or Unable To Sleep At Night)? [id number] Information not available 08/23/2023 Sex: Male Functional Status Question Answer Note LastModified by Organizat ion Details LastModified Time Do you have difficulty walking or climbing stairs? Yes stroke [email or web address] Information not available 08/23/2023 Do you have transportation difficulties? No [email or web address] Information not available 08/23/2023 Are you able to walk? YESASSIST pt walks with a dorene [email or web address] Information not available 08/23/2023 Do you have difficulty doing errands alone? No [email or web address] Information not available 08/23/2023 Are you able to care for yourself? Yes [email or web address] Information n ot available 08/23/2023 Do you have difficulty dressing or bathing? Yes pt has a person that helps with bathing and dressing [email or web address] Information not available 08/23/2023 Mental Status Question Answer Note LastModified by Organization D etails LastModified Time Do you have difficulty concentrating, remembering or making decisions? No [email or web address] Information no t available 08/23/2023 Family History Nothing Reported Notes:Family history unknown , Response Property: Yes; , No known relatives, Response Property: Yes; Medical History Condition Response Coronary Artery Disease Y Stroke Y Diverticulitis Y Heart Disease Y Immunizations Vaccine Type Date Status Note Provider Nam e and Address Organization Details Recorded Time Influenza, split virus, quadrivalent, preservative 2 completed Not Available [facility] 12[facility]13/2023 06:54:23 Influenza, split virus, quadrivalent, preservative completed Not Available [facility] 12/13/2023 06:54:24 Past Encounters Encounter ID Performer Location Encounter Start Date Encounter Closed Date Diagnosis/Indication Diagnosis SNOMED-CT Code Diagnosis ICD10 Code Diagnosis Note [id number] Marie Okeefe MD Main Office [address] [place] [address] 08/23/2023 14:09:45 08/23/2023 14:48:23 Type B viral hepatitis [id number] B19.10 HBV: Continue Entecavir 0.5 mg po qd for HBV.stable CKD. if any changes on eGFR, would need to adjust med dose. pt aware. hydration. avoid ETOH; strict compliance addressed w correct use to keep HBV suppressio n. do not stop medication without supervisio n to avoid HBV flare up/liver failure. safe sex. condom use to prevent STI's. PreP w Apretude reviewed. Plan of care reviewed. Questions and concerns addressed [id number] Marie Okeefe MD Main Office [address] [place] [address] 07/03/2024 12:11:28 07/03/2024 12:39:10 Type B viral hepatitis [id number] B19.10 HBV: Continue Entecavir 0.5 mg po qd for HBV.stable CKD. if any changes on eGFR, would need to adjust med dose. pt aware. hydration. labs ordered avoid ETOH; strict compliance addressed w correct use to keep HBV suppressio n. do not stop medication without supervisio n to avoid HBV flare up/liver failure.fl u, COVID, RSV vaccines recommende d; pneumonia vaccine as well Dr Ventura, vascular office to get u/s abd results summer 2023 Plan of care reviewed. Questions and concerns addressed Health Concerns Section Related Observation LastModified by Organization Detai ls LastModified Time None Recorded Concern Status LastModified by Organization Details LastModified Time None Recorded Advance Directives Directive None Recorded Payers Encounter Date Sequence Insurance Name Policy Number Policy Garcia Covered Member ID Garcia Member ID Guarantor Name 08/23/2023 1 [place] [employer] Phan Gipson [id number] Phan Gipson 08/23/2023 2 [place] [facility] ([place]) 104 Phan Gipson [id number] Phan Stauffer Leonela 07/03/2024 1 [place] [employer] Phan Gipson [id number] Phan Stauffer Leonela 07/03/2024 2 [facility] [employer] 104 Phan Gipson [id number] Phan Stauffer Leonela Notes Date Note Type [...] booster; will get arexvy. Marie Okeefe MD [address] [place] [address], [phone], [facility] MAR[facility] OKEEFE MD [facility] 08/23/2023 16:59:39 4 text/html f/u HBV. CKDon [...] booster; will get arexvy. Marie Okeefe MD [address] [place] [address], [phone], [facility] MAR[facility] OKEEFE MD [facility] 07/03/2024 12:46:44
[2024-11-04 14:31] VITALS: BP 175/74; PULSE 62; RESP 16; TEMP 36.4; O2SAT 100
== END 2024-11-04 14:50 | disposition home or self-care (01) ==
PROVIDERS: PCP Family Medicine; Visit Provider Ophthalmology
PROC: (CPT 66984; principal; 2024-11-04 13:00)
PROC: (CPT 66170; 2024-11-04 13:00)
DX: H25.11 Age-related nuclear cataract, right eye (principal); H52.4 Presbyopia; H40.211 Acute angle-closure glaucoma, right eye; H40.1132 Primary open-angle glaucoma, bilateral, moderate stage; H35.033 Hypertensive retinopathy, bilateral; Q14.1 Congenital malformation of retina; H18.413 Arcus senilis, bilateral; I10 Essential (primary) hypertension; E78.00 Pure hypercholesterolemia, unspecified; I25.10 Atherosclerotic heart disease of native coronary artery without angina pectoris; Z95.5 Presence of coronary angioplasty implant and graft; I25.2 Old myocardial infarction; E11.9 Type 2 diabetes mellitus without complications; Z86.73 Personal history of transient ischemic attack (TIA), and cerebral infarction without residual deficits; Z85.828 Personal history of other malignant neoplasm of skin; Z79.01 Long term (current) use of anticoagulants; Z79.4 Long term (current) use of insulin; Z79.82 Long term (current) use of aspirin; Z79.85 Long-term (current) use of injectable non-insulin antidiabetic drugs; Z79.899 Other long term (current) drug therapy; Z99.89 Dependence on other enabling machines and devices; Z87.891 Personal history of nicotine dependence
CPT/HCPCS: 66984; 66170; 82947; J2004; J2250; J3301; J7315; V2788

== ENCOUNTER 2024-11-06 12:50 | Outpatient (AMB) | payer MEDICARE, BC, SELFPAY ==
--- NOTE | 2024-11-06 12:38 | A.OFFVIS_ITS ---
Vital Signs 11/06/24 13:06 Height 5 ft 7.72 in Weight 152 lb 1.903 oz BMI 23.3 BP 132/74 Blood Pressure Location Rt brachial Position Sitting Pulse 72 Pulse Source Pulse Oximeter Intake Visit Reasons: Type 2 DM Intake Note: Patient presents today for a follow-up for Type 1 Diabetes Mellitus: Last Diabetic eye exam was on: 07/2024 Last Podiatry exam was on: Does not see a Dramatic Coach Most recent HbA1c: 9.1%, 11/06/2024 Random Glucose- 243 mg/dL, Today Receiver Setter Required: No Accompanied by: Self / Same As Patient Allergies No Known Allergies Allergy (Verified 11/04/24 12:13) HPI Comments Details: 73 year-old male with a past medical history of chronic hepatitis-B, type 1 diabetes, hypertension, HLD, and a Pituitary macroadenoma. He is seen in follow up today. He was last seen 1 month ago at which time he was trained on a CeQur insulin 4 day patch pump. He was previously followed by an sign builder Dr. Enriquez in [facility] for his diabetes. He who was last seen by Dr. Ramos 05/2024 for diabetes and by Dr. Ramos 12/2023 for pituitary tiara roadenoma which will not be addressed today. Most recent A1C 08/07/24 9.1%, 04/2024 8.7%, and 12/2023 9.8%. He has been seen by Barbra ROSE for potential pump December/2023 but had decided to see if Tresiba would lower his A1c. 2019 Negative gada and insulin antibodies, low c peptide 0.77 He had tried Ozempic but had diarrhea. Mounjaro 2.5 mg was prescribed but insurance denied. Was metformin when he was first diagnosed. Was diagnosed approximately 2003 Current diabetes regimen: Tresiba 40 units Novolog 14 units AC twice daily he eats two meals He had gone up to 18 units but had a few lows Dexcom average glucose: [ 246 ] 14 day continuous glucose monitor report reviewed Days with CGM data [86 ] % TIme in ranges: [ 44] % very high (above 250) [ 41] % high ?(181-250) [ 14] % in range ?(70-180] [ 1[ ] % ?very low (below 54) [ less than 1] Standard Deviation 76 Interpretation [ some low in the am to just under 70 units highs after lunch and supper] Denies retinopathy: Has eyes checked yearly, last eye exam: June 2024 Has glaucoma Denies Neuropathy: no numbness, tingling or crampng. He is off Lisinopril now per the recommendation of his Paper Mill Supervisor. He developed orthostatic hypotension in 2020 and was having low BP with LEE/ARB so these were stopped. Sees Dr. Lei Has HLD, on Atorvastatin 80 mg PO daily and Zetia 10 mg PO daily. LDL 58 08/2023 Has history of CAD with triple vessel PTCA He had a CVA in 2020. He is followed by vascular surgeon at [facility] for AAA and stenosis of the carotid arteries Diet: Exercise: [facility] Medical History (Updated 11/06/24 @ 13:38 by Kait Turner NP) Wears dentures Chronic hepatitis B Paralysis of left upper extremity Ambulates with cane Glaucoma Diverticulosis Diabetes Bilateral cataracts Uncontrolled diabetes mellitus with hyperglycemia History of stent insertion of renal artery CAD (coronary artery disease) Carotid artery disease Pituitary adenoma Cerebral microvascular disease Multiple cerebral infarctions Left hemiparesis CKD (chronic kidney disease) stage 3, GFR 30-59 ml/min AAA (abdominal aortic aneurysm) Left renal artery stenosis Hypertensive urgency CKD (chronic kidney disease) stage 3, GFR 30-59 ml/min Peroneal neuropathy Hypertension Encounter for loop recorder check Stroke due to stenosis of right carotid artery Stroke Status post placement of implantable loop recorder CVA (cerebral vascular accident) (~2020) TIA (transient ischemic attack) (~2020) Vitamin D deficiency Pituitary macroadenoma HLD (hyperlipidemia) HTN (hypertension) T1DM (type 1 diabetes mellitus) Surgical History (Updated 10/30/24 @ 14:37 by Loni Hi RN) Cataract extraction status of left eye (10/07/24) History of partial colectomy (~1997) History of heart artery stent History of carotid endarterectomy Family History Father CVD (cardiovascular disease) AAA (abdominal aortic aneurysm) Mother No problems noted. Social History Household Members: Spouse and Family Housing: House Are you a primary care connector to a significant other at home: No Do you presently have visiting nurse or other home services: Yes (KNITTED GOODS SHAPER 5 x week) Alcohol intake: never Comment: bed rest, unable to ambulate per md Patient Tobacco Use Status: Former Tobacco user Tobacco use type: Cigarette Years Smoked: 50+ Second Hand Smoke Exposure: No Advance Directives Date on File: 01/09/21 service: No Current occupational status: unemployed and retired Physical Exam Vital Signs: Last Vital Signs Pulse 72 11/06/24 13:06 BP 132/74 11/06/24 13:06 BMI result Body Mass Index 23.3 Const Other: Absence of Cushingoid features. Absence of acromegalic features. Neck exam reveals nl size thyroid about 15 gms. No thyroid nodules palpable. No carotid bruits present. Lungs CTA. Heart S1 S2, Reg R/R. No M/R G. Skin exam reveals absence of vitiligo or acanthosis nigricans. No edema left paresis left arm Visual exam of foot performed. No ulcerations or open lesions. No inter digit maceration or fissuring. mild oncymycosis, no callouses. Sensation intact to monofilament exam. Vibratory sensation is normal with 128 Hz tuning fork. 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 He is having overnight lows will slightly decrease Tresiba and increase short acting NovoLog and see the patient back in 4 weeks New dosing Tresiba 36 units NovoLog 16 units twice daily with meals Can dose with CeQur 2 units between meals as needed I asked the patient to call me back with his numbers in 1 week if he is still running high Orders: Orders AMB Hemoglobin A1c Today E10.65 - Type 1 diabetes mellitus with hyperglycemia Patient Instructions: The patient was counseled to achieve a target A1C of 7% (154 avg). Fasting blood sugars should be 90-130 in the morning and less than 180 two hours after meals. Reviewed the relationship between poor diabetic control and the development of complications. Check your feet daily looking for any signs of infection, ulceration and seek medical attention if this occurs. Break in shoes gradually and do not wear open-toed shoes or walk barefooted. The patient was counseled to always carry a source of sugar and on the rule of 15's: Take 3 glucose tablets and repeat again in 15 minutes if blood sugar is not in normal range. Continue to repeat every 15 minutes until blood sugar is normal. Coding Level of Care Code Est Pt Level 4 (78691) Complex EM visit Add On G2211 Diagnoses Type 1 diabetes mellitus with hyperglycemia E10.65 Diabetes mellitus complication status: with hyperglycemia Time Spent (min) 30 Comment Time spent reviewing labs/provider notes, face to face, chart doc
[2024-11-06 13:06] VITALS: BP 132/74; PULSE 72; BMI 23.3
[2024-11-06 13:16] LABS: Glucose, Whole Blood 243 mg/dL (60-115)
== END 2024-11-06 13:32 | disposition home or self-care (01) ==
PROVIDERS: PCP Family Medicine; Visit Provider Nurse Practitioner Adult Health
DX: E10.65 Type 1 diabetes mellitus with hyperglycemia (principal)
CPT/HCPCS: 99214; G2211

== ENCOUNTER → 2024-11-06 12:50 | Outpatient (BNVA) | payer MEDICARE, BC, SELFPAY | PROVIDERS: PCP Family Medicine; Visit Provider Nurse Practitioner Adult Health | DX: E10.65 Type 1 diabetes mellitus with hyperglycemia (principal); E78.5 Hyperlipidemia, unspecified | CPT/HCPCS: 82947; 83036; 99212 ==

== ENCOUNTER 2024-12-06 12:54 | Outpatient (AMB) | payer MEDICARE, BC, SELFPAY ==
--- NOTE | 2024-12-06 08:37 | A.OFFVIS_ITS ---
Vital Signs 12/06/24 13:06 Height 5 ft 7.2 in Weight 152 lb 1.903 oz BMI 23.7 BP 143/66 H Blood Pressure Location Rt brachial Position Sitting Pulse 59 Pulse Source Pulse Oximeter Intake Visit Reasons: DM Intake Note: Patient presents today for a follow-up for Type 1 Diabetes Mellitus: Last Diabetic eye exam was on: 07/2024 Last Podiatry exam was on: Does not see a Health Data Analyst Most recent HbA1c: 9.1%, 11/06/2024 Random Glucose- 94 mg/dL, Today Ambulance Officer Required: No Accompanied by: Self / Same As Patient Allergies No Known Allergies Allergy (Verified 11/04/24 12:13) Medication List - Last Reconciled 12/06/24 by Kait Turner NP acetaminophen 650 mg PO Q4H PRN albuterol sulfate 90 mcg/actuation 2 puffs inhalation Q4H PRN amlodipine 10 mg PO DAILY aspirin 81 mg PO DAILY atorvastatin 80 mg PO BEDTIME 30 days bolus insulin pump, 200 unit (CeQur Simplicity) As directed every 4 days cetirizine 10 mg PO DAILY cholecalciferol (vitamin D3) 50 mcg PO DAILY diabetic supplies, miscellan. (CeQur Simplicity Want Ad Supervisor) As directed for use with CeQur insulin patch entecavir 0.5 mg PO DAILY escitalopram oxalate 20 mg PO DAILY ezetimibe (Zetia) 10 mg PO DAILY 90 days hydralazine 50 mg See Protocol PO BEDTIME insulin aspart U-100 (Novolog U-100 Insulin aspart) 18 units before breakfast and supper 9 clicks on CeQur subcutaneously use as directed; 30 days latanoprost 0.005% (Xalatan) 1 drp ophthalmic (eye) BEDTIME melatonin 5 mg PO BEDTIME metoprolol succinate ER 100 mg PO ONCE omeprazole 20 mg PO DAILY ticagrelor 60 mg PO BID ticagrelor (Brilinta) 60 mg PO BID Tresiba FlexTouch U-200 (insulin degludec) 40 units every morning may increase by 2 units every 3 days until a.m. readings less than 160 subcutaneously daily; 90 days NS HPI Comments Details: 73 year-old male with a past medical history of chronic hepatitis-B, diabetes recently confirmed as type 2 not type 1,, hypertension, HLD, and a Pituitary macroadenoma. He is seen in follow up today. He was last seen 1 month ago. He has been trained on a CeQur insulin 4 day patch pump. He was previously followed by an egg smeller Dr. Enriquez in [facility] for his diabetes. He who was last seen by Dr. Ramos 05/2024 for diabetes and by Dr. Ramos 12/2023 for pituitary microadenoma which will not be addressed today. Most recent A1C 08/07/24 9.1%, 04/2024 8.7%, and 12/2023 9.8%. He has been seen by Barbra ROSE for potential pump December/2023 but had decided to see if Tresiba would lower his A1c. 2019 Negative gada and insulin antibodies, low c peptide 0.77 Outside labs from [facility] reviewed 08/09/2024 Fasting C-peptide 1.6 [place] less than 5 Anti pancreatic islet cell antibodies negative He had tried Ozempic but had diarrhea. Mounjaro 2.5 mg was prescribed but insurance denied. Was on metformin when he was first diagnosed. Was diagnosed approximately 2003 Current diabetes regimen: Tresiba 36 units NovoLog 16 units twice daily with meals (8 clicks) Can dose with CeQur 2 units between meals as needed Dexcom average glucose: 247 14 day continuous glucose monitor report reviewed Glucose Managment indicator 9.2 % Days with CGM data 70 % TIme in ranges: 43 % very high (above 250) 24 % high ?(181-250) 33 % in range ?(70-180] 0 % low (69-55) Less than 1 % ?very low (below 54) Ninety-seven Standard Deviation Interpretation [ has highs overnight sugar drops to reasonable range after lunch and then progressively higher throughout the afternoon Denies retinopathy: Has eyes checked yearly, last eye exam: HAD cataract surgery, was seen 12/18/24 with f/u in 4 months Denies Neuropathy: no numbness, tingling or crampng. does not see vascular technician has family member trim nails He is off Lisinopril now per the recommendation of his Property Valuer. He developed orthostatic hypotension in 2020 and was having low BP with LEE/ARB so these were stopped. Sees Dr. Lei who has discussed going to [facility] or [facility]. Has HLD, on Atorvastatin 80 mg PO daily and Zetia 10 mg PO daily. LDL 45 09/16 Has history of CAD with triple vessel PTCA He had a CVA in 2020. He is followed by vascular surgeon at [facility] for AAA and stenosis of the carotid arteries Diet: balanced Exercise:walks with cane Outside labs from [facility] reviewed 08/09/2024 Fasting C-peptide 1.6 [place] less than 5 Anti pancreatic islet cell antibodies negative Total cholesterol 95 LDL 45 [facility] Medical History (Updated 11/13/24 @ 07:19 by Kait Turner NP) Diabetes type 2 T1DM (type 1 diabetes mellitus) Wears dentures Chronic hepatitis B Paralysis of left upper extremity Ambulates with cane Glaucoma Diverticulosis Diabetes Bilateral cataracts Uncontrolled diabetes mellitus with hyperglycemia History of stent insertion of renal artery CAD (coronary artery disease) Carotid artery disease Pituitary adenoma Cerebral microvascular disease Multiple cerebral infarctions Left hemiparesis CKD (chronic kidney disease) stage 3, GFR 30-59 ml/min AAA (abdominal aortic aneurysm) Left renal artery stenosis Hypertensive urgency CKD (chronic kidney disease) stage 3, GFR 30-59 ml/min Peroneal neuropathy Hypertension Encounter for loop recorder check Stroke due to stenosis of right carotid artery Stroke Status post placement of implantable loop recorder CVA (cerebral vascular accident) (~2020) TIA (transient ischemic attack) (~2020) Vitamin D deficiency Pituitary macroadenoma HLD (hyperlipidemia) HTN (hypertension) Surgical History (Updated 10/30/24 @ 14:37 by Loni Hi, RN) Cataract extraction status of left eye (10/07/24) History of partial colectomy (~1997) History of heart artery stent History of carotid endarterectomy Family History Father CVD (cardiovascular disease) AAA (abdominal aortic aneurysm) Mother No problems noted. Social History Household Members: Spouse and Family Housing: House Are you a primary care connector to a significant other at home: No Do you presently have visiting nurse or other home services: Yes (MACHINE STONECUTTER 5 x week) Alcohol intake: never Comment: bed rest, unable to ambulate per md Patient Tobacco Use Status: Former Tobacco user Tobacco use type: Cigarette Years Smoked: 50+ Second Hand Smoke Exposure: No Advance Directives Date on File: 01/09/21 service: No Current occupational status: unemployed and retired Physical Exam Const Other: Absence of Cushingoid features. Absence of acromegalic features. Neck exam reveals nl size thyroid about 15 gms. No thyroid nodules palpable. Heart S1 S2, Reg R/R. No M/R G. Skin exam reveals absence of vitiligo or acanthosis nigricans. left hemiparesis, walks with cane Visual exam of foot performed. No ulcerations or open lesions. No inter digit maceration or fissuring. No onychomycosis, no callouses. Sensation intact to monofilament exam. Vibratory sensation is diminished right foot with 128 Hz tuning fork. Office Procedures Glucose Monitoring Details Details: see [facility] [id number] - Glucose monitoring, continuous-physician I&R Procedure code (CPT) selection complete Assessment & Plan Assessment & Plan (1) Diabetes type 2: Code(s): E11.9 - Type 2 diabetes mellitus without complications Category: Medical Plan: 73-year-old type 2 diabetic with a recent labs of C-peptide 1.6 confirming he does have the ability to produce insulin and negative antibodies with persistently elevated glucose in the 240 range. He has an upcoming appointment with Dr. Lei who has discussed starting Jardiance/Farxiga with him. Will increase his insulin at this time so that his numbers are little bit lower when he starts the SGLT2 inhibitor. As his latest kidney results are not in the chart we will defer to Nephrology to starting this. Tresiba 36 units NovoLog via CeQUr 4 day insulin patch pump Add 6 units (3 clicks) with his morning coffee Continue 16 (8 clicks) units with lunch Increase supper 20 units (10 clicks) HE was asked to contact me if he is trending low or high for adjustment in insulin dosing. Side effects of SGLT-2 inhibitors : UTI, fungal infection, bacterial infection in the perineum, light headed, feeling like you may pass out, low blood sugar, dehydration, allergic reaction-skin rash, fourniers gangrene, rare lowere extemity amputaiton, itching, hives, rare dka, change in kidney function, rare pancreatitis, Contact PCP or go to urgent care for any infection. More serious reaction go to ER and stop medication, Notify Endo if medication is stopped and your blood sugars increase. Discuss the possibility of adding pioglitazone 15 mg if above treatment does not bring his numbers in range. Given his age and comorbidities if we can get his A1c to less than 8% that would be reasonable. Orders: Orders AMB Glucose Monitoring Today E11.65 - Type 2 diabetes mellitus with hyperglycemia Basic Metabolic Panel Today E11.9 - Type 2 diabetes mellitus without complications Medications: Changed From Tresiba FlexTouch U-200 (insulin degludec) 40 units every morning may increase by 2 units every 3 days until a.m. readings less than 160 subcutaneously daily; 90 days 24 mL 4RF NS E10.65 - Type 1 diabetes mellitus with hyperglycemia To Tresiba FlexTouch U-200 (insulin degludec) 36 units (0.18 mL) subcut DAILY 90 days 18 mL 4RF NS E10.65 - Type 1 diabetes mellitus with hyperglycemia From insulin aspart U-100 (Novolog U-100 Insulin aspart) 18 units before breakfast and supper 9 clicks on CeQur subcutaneously use as directed; 30 days 1,200 mL 11RF To insulin aspart U-100 (Novolog U-100 Insulin aspart) 6 units before breakfast, 16 units before lunch, 20 units before supper each click on cequr is 2 units 90 days 40 mL 3RF Coding Level of Care Code Est Pt Level 5 (66749) Complex EM visit Add On G2211 Diagnoses Diabetes type 2 E11.9 CPT Codes Details - CPT: 18027 - Glucose monitoring, continuous-physician I&R ([id number]) Time Spent (min) 55 Comment Time spent reviewing labs/provider notes, glucose,sensor reports, face to face, chart doc
[2024-12-06 13:06] VITALS: BP 143/66; PULSE 59; BMI 23.7
[2024-12-06 13:14] LABS: Glucose, Whole Blood 94 mg/dL (60-115)
--- OUTSIDE RECORDS SUMMARY | 2024-12-06 13:17 | XMS_ITS | Data Portability ---
Author Organization JENIFER GREENBERG MD [facility], Main Office Address [address] [place] [id number] Assessment No assessment recorded. Plan of Treatment Reminders Order Date Submit Date Provider Last Modified By Organization Details Last Modified Time Details Appointments HBV FOLLOW UP 2024 11:00A M Marie Okeefe MD Not available Not available Not available Lab creatinin e w/ estimated GFR (eGFR), serum or plasma 2023 024 [facility], [address], [address], [place], [address], 07/04/2024 10:07:04 hepatitis C virus Ab, serum 2023 024 [email or web address] [facility], [address], [address], [place], [address], 07/10/2024 11:39:02 hepatitis B DNA, quantitat chandrakant, serum 2023 024 [email or web address] [facility], [address], [address], [place], [address], 07/10/2024 11:39:02 unlisted lab - alb+ALP+A LT+AST+tb garcía+PT 2023 024 [facility], [address], [address], [place], [address], 07/04/2024 10:07:03 CBC w/ diff 2022 023 [email or web address] [facility], [address], [address], [place], [address], 09/26/2023 16:30:38 electroly george panel, blood 2022 023 [email or web address] [facility], [address], [address], [place], [address], 09/26/2023 16:30:38 ALT (alanine aminotran sferase), serum or plasma 2022 023 [facility], [address], [address], [place], [address], 08/23/2023 21:34:23 AST/SGOT (aspartat e aminotran sferase), serum or plasma 2022 023 [facility], [address], [address], [place], [address], 08/23/2023 21:34:24 creatinin e w/ estimated GFR (eGFR), serum or plasma 2022 023 [facility], [address], [address], [place], [address], 09/26/2023 16:30:39 hepatitis C virus Ab, serum 2022 023 [facility], [address], [address], [place], [address], 08/23/2023 23:21:23 RPR (rapid plasma reagin), serum 2022 023 [email or web address] [facility], [address], [address], [place], [address], 09/26/2023 16:30:39 hepatitis B DNA, quantitat chandrakant, serum 2022 023 [facility], [address], [address], [place], [address], 08/29/2023 15:10:11 unlisted lab - shelton fibrosure 2022 023 [facility], [address] [address], [place], [address], 08/27/2023 18:06:18 Referral None recorded. Procedures None recorded. Surgeries None recorded. Imaging None recorded. Medication Orders entecavir 0.5 mg tablet 2023 024 [facility], [facility], [place], [address], 07/03/2024 12:35:02 entecavir 0.5 mg tablet 2022 023 [facility], [facility], [place], [address], 08/23/2023 14:44:06 Patient TargetsNo targets recorded. Patient InstructionsNo instructions recorded. Reason for Referral None Reported. Results Created Date Observation Date Name Description Value Unit Range Abnormal Flag Note LastModifiedBy Organization Detail LastModifiedTime 08/23/2008/23/2023 COMPL ETE CBC WITH DIFF WBC 7.8 K/mm3 (4.0-1 1.0) Not Available [facility] [address] [place], [address], 08/23/2023 21:06:07 08/23/20 23 08/23/2023 COMPL ETE CBC WITH DIFF RBC 5.03 M/mm3 (4.70- 6.10) Not Available [facility] [address] [place], [address], 08/23/2023 21:06:07 08/23/2008/23/2023 COMPL ETE CBC WITH DIFF HGB 14.9 gm/dL (13.7- 17.1) Not Available [facility] [address] [place], [address], 08/23/2023 21:06:07 08/23/20 23 08/23/2023 COMPL ETE CBC WITH DIFF HCT 45.5 % (40.5- 50.0) Not Available [facility] [address] [place], [address], 08/23/2023 21:06:07 08/23/20 23 08/23/2023 COMPL ETE CBC WITH DIFF MCV 90.5 fL (80.0- 94.0) Not Available [facility] [address] [place], [address], 08/23/2023 21:06:07 08/23/20 23 08/23/2023 COMPL ETE CBC WITH DIFF MCH 29.6 pg (27.0- 34.0) Not Available [facility] [address] [place], [address], 08/23/2023 21:06:07 08/23/20 23 08/23/2023 COMPL ETE CBC WITH DIFF MCHC 32.7 g/dL (33.0- 37.0) low Not Available [facility] [address] [place], [address], 08/23/2023 21:06:07 08/23/20 23 08/23/2023 COMPL ETE CBC WITH DIFF plt 286 K/mm3 (150-4 60) Not Available [facility] [address] [place], [address], 08/23/2023 21:06:07 08/23/20 23 08/23/2023 COMPL ETE CBC WITH DIFF RDW-SD 44.6 fL (<47.0 ) Not Available [facility] [address] [place], [address], 08/23/2023 21:06:07 08/23/20 23 08/23/2023 COMPL ETE CBC WITH DIFF MPV 8.9 fL (9.4-1 2.4) low Not Available [facility] [address] [place], [address], 08/23/2023 21:06:07 08/23/20 23 08/23/2023 COMPL ETE CBC WITH DIFF automated NRBC 0.0 #/100 _WBC' s Not Available [facility] [address] [place], [address], 08/23/2023 21:06:07 08/23/20 23 08/23/2023 COMPL ETE CBC WITH DIFF abs. NRBC 0.0 K/mm3 Not Available [facility] [address] [place], [address], 08/23/2023 21:06:07 08/23/20 23 08/23/2023 COMPL ETE CBC WITH DIFF neut # 5.5 K/mm3 (1.3-7 .0) Not Available [facility] [address] [place], [address], 08/23/2023 21:06:07 08/23/20 23 08/23/2023 COMPL ETE CBC WITH DIFF lymph # 1.3 K/mm3 (0.8-3 .1) Not Available [facility] [address] [place], [address], 08/23/2023 21:06:07 08/23/20 23 08/23/2023 COMPL ETE CBC WITH DIFF mono# 0.7 K/mm3 (0.4-1 .3) Not Available [facility] [address] [place], [address], 08/23/2023 21:06:07 08/23/20 23 08/23/2023 COMPL ETE CBC WITH DIFF eo # 0.2 K/mm3 (0.0-0 .4) Not Available [facility] [address] [place], [address], 08/23/2023 21:06:07 08/23/20 23 08/23/2023 COMPL ETE CBC WITH DIFF baso # 0.1 K/mm3 (0.0-0 .1) Not Available [facility] [address] [place], [address], 08/23/2023 21:06:07 08/23/20 23 08/23/2023 COMPL ETE CBC WITH DIFF abs. imm gran 0.0 K/mm3 Not Available [facility] [address] [place], [address], 08/23/2023 21:06:07 08/23/20 23 08/23/2023 COMPL ETE CBC WITH DIFF neut 70.6 % (44-76 ) Not Available [facility] [address] [place], [address], 08/23/2023 21:06:07 08/23/20 23 08/23/2023 COMPL ETE CBC WITH DIFF lymph 16.6 % (15-43 ) Not Available [facility] [address] [place], [address], 08/23/2023 21:06:07 08/23/20 23 08/23/2023 COMPL ETE CBC WITH DIFF monocyte 9.3 % (4.5-1 0.5) Not Available [facility] [address] [place], [address], 08/23/2023 21:06:07 08/23/20 23 08/23/2023 COMPL ETE CBC WITH DIFF eo 2.2 % (0-6) Not Available [facility] [address] [place], [address], 08/23/2023 21:06:07 08/23/20 23 08/23/2023 COMPL ETE CBC WITH DIFF baso 0.9 % (0-2) Not Available [facility] [address] [place], [address], 08/23/2023 21:06:07 08/23/20 23 08/23/2023 COMPL ETE CBC WITH DIFF imm gran 0.4 % Not Available [facility] [address] [place], [address], 08/23/2023 21:06:07 08/23/20 23 08/23/2023 ALT ALT 24 U/L (0-41) Not Available [facility] [address] [place], [address], 08/23/2023 21:34:22 08/23/20 23 08/23/2023 AST AST 19 U/L (0-40) Not Available [facility] [address] [place], [address], 08/23/2023 21:34:24 08/23/20 23 08/23/2023 CREAT ININE creatinine 1.6 mg/dL (0.7-1 .2) high Not Available [facility] [address] [place], [address], 08/23/2023 21:34:25 08/23/20 23 08/23/2023 CREAT ININE [...] Not Available [facility] [address] [place], [address], 08/23/2023 21:34:25 08/23/20 23 08/23/2023 ELECT ROLYT ES sodium 137 mmol/ L (133-1 45) Not Available [facility] [address] [place], [address], 08/23/2023 21:34:25 08/23/20 23 08/23/2023 ELECT ROLYT ES potassium 4.2 mmol/ L (3.6-5 .2) Not Available [facility] [address] [place], [address], 08/23/2023 21:34:25 08/23/20 23 08/23/2023 ELECT ROLYT ES chloride 98 mmol/ L (98-10 7) Not Available [facility] [address] [place], [address], 08/23/2023 21:34:25 08/23/20 23 08/23/2023 ELECT ROLYT ES bicarbonate 28 mmol/ L (22-29 ) Not Available [facility] [address] [place], [address], 08/23/2023 21:34:25 08/23/20 23 08/23/2023 ELECT ROLYT ES anion gap 11 (4-17) Not Available [facility] [address] [place], [address], 08/23/2023 21:34:25 08/23/20 23 08/23/2023 ANTI- HEPAT ITIS C anti-hepatit is C (neg) normal NEGAT CHANDRAKANT Refer ence range : Negat chandrakant This test was perfo rmed on the Abbot t Archi tect immun oassa y syste m. Not Available [facility] [address] [place], [address], 08/23/2023 23:21:23 08/23/20 23 08/23/2023 SYPHI LIS TESTI NG syphilis screen by celestino (neg) normal NEGAT CHANDRAKANT Refer ence range : Negat chandrakant This test was perfo rmed on the Abbot t Archi tect immun oassa y syste m. Not Available [facility] [address] [place], [address], 08/23/2023 23:21:24 08/23/20 23 08/23/2023 SYPHI LIS TESTI NG RPR titer result NOT INDICA BENJAMIN Not Available [facility] [address] [place], [address], 08/23/2023 23:21:24 08/23/20 23 08/23/2023 SYPHI LIS TESTI NG tppa result NOT INDICA BENJAMIN Not Available [facility] [address] [place], [address], 08/23/2023 23:21:24 08/23/20 23 08/23/2023 SYPHI LIS [...] Available [facility] [address] [place], [address], 08/23/2023 23:21:24 08/23/20 23 08/27/2023 SHELTON FIBRO SURE fibrosis score 0.64 high Refer ence range : 0.00 to 0.21 Not Available [facility] [address] [place], [address], 08/27/2023 18:06:18 08/23/2008/27/2023 SHELTON FIBRO SURE fibrosis stage Commen t (NOTE ) F3-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 Not Available [facility] [address] [place], [address], 08/27/2023 18:06:18 08/23/20 23 08/27/2023 SHELTON FIBRO SURE steatosis score 0.64 high Refer ence range : 0.00 to 0.40 Not Available [facility] [address] [place], [address], 08/27/2023 18:06:18 08/23/20 23 08/27/2023 SHELTON FIBRO SURE steatosis grade Commen t (NOTE ) S2 - S3 Moder ate to Sever e Steat osis (Clin icall y Signi fican t) (34-1 00%) Not Available [facility] [address] [place], [address], 08/27/2023 18:06:18 08/23/20 23 08/27/2023 SHELTON FIBRO SURE shelton score 0.66 high Refer ence range : 0.00 to 0.25 Not Available [facility] [address] [place], [address], 08/27/2023 18:06:18 08/23/20 23 08/27/2023 SHELTON FIBRO SURE shelton grade Commen t (NOTE ) N2 - Moder ate SHELTON Not Available [facility] [address] [place], [address], 08/27/2023 18:06:18 08/23/2008/27/2023 SHELTON FIBRO SURE alpha 2 macroglobuli ns qn(fib) 415 high Refer ence range : 110 to 276 Unit: mg/dL Not Available [facility] [address] [place], [address], 08/27/2023 18:06:18 08/23/20 23 08/27/2023 SHELTON FIBRO SURE haptoglobin( fibrosure) 198 Refer ence range : 34 to 355 Unit: mg/dL Not Available [facility] [address] [place], [address], 08/27/2023 18:06:18 08/23/20 23 08/27/2023 SHELTON FIBRO SURE apolipoprote in(fibrosure ) 110 Refer ence range : 101 to 178 Unit: mg/dL Not Available [facility] [address] [place], [address], 08/27/2023 18:06:18 08/23/2008/27/2023 SHELTON FIBRO SURE bilirubin,to ella(fibrosur e) 0.4 Refer ence range : 0.0 to 1.2 Unit: mg/dL Not Available [facility] [address] [place], [address], 08/27/2023 18:06:18 08/23/2008/27/2023 SHELTON FIBRO SURE GGT(fibrosur e) 19 Refer ence range : 0 to 65 Unit: IU/L Not Available [facility] [address] [place], [address], 08/27/2023 18:06:18 08/23/20 23 08/27/2023 SHELTON FIBRO SURE ALT(SGPT)p5p (fibrosure) 28 Refer ence range : 0 to 55 Unit: IU/L Not Available [facility] [address] [place], [address], 08/27/2023 18:06:18 08/23/20 23 08/27/2023 SHELTON FIBRO SURE AST (SGOT) p5p 20 Refer ence range : 0 to 40 Unit: IU/L Not Available [facility] [address] [place], [address], 08/27/2023 18:06:18 08/23/20 23 08/27/2023 SHELTON FIBRO SURE cholesterol total 116 Refer ence range : 100 to 199 Unit: mg/dL Not Available [facility] [address] [place], [address], 08/27/2023 18:06:18 08/23/20 23 08/27/2023 SHELTON FIBRO SURE glucose serum 216 high Refer ence range : 70 to 99 Unit: mg/dL Not Available [facility] [address] [place], [address], 08/27/2023 18:06:18 08/23/20 23 08/27/2023 SHELTON FIBRO SURE triglyceride s 124 Refer ence range : 0 to 149 Unit: mg/dL Not Available [facility] [address] [place], [address], 08/27/2023 18:06:18 08/23/20 23 08/27/2023 SHELTON FIBRO SURE interpretati ons Commen t (NOTE ) Quant itati ve resul ts of 10 bioch emica ls in combi natio n with age and gende r, are diana zed using a compu tatio nal algor ithm to provi de a quant itati ve surro gate marke r (0.0- 1.0) of liver fibro sis ([place] vir F0-F4 ), hepat ic steat osis [...] had signi fican t NAFLD fibro sis ([place] vir F2-F4 ) and 11% had cirrh [...] Available [facility] [address] [place], [address], 08/27/2023 18:06:18 08/23/2008/27/2023 SHELTON FIBRO SURE fibrosis [...] [facility] [address] [place], [address], 08/27/2023 18:06:18 08/23/20 23 08/27/2023 SHELTON FIBRO [...] [facility] [address] [place], [address], 08/27/2023 18:06:18 08/23/20 23 08/27/2023 SHELTON FIBRO SURE shelton scoring Commen t (NOTE ) < EQ 0.25 EQ N0 - No SHELTON 0.25 - 0.50 EQ N1 - Mild SHELTON 0.50 - 0.75 EQ N2 - Moder ate SHELTON >0.75 EQ N3 - Sever e SHELTON Not Available [facility] [address], [place], [address], 08/27/2023 18:06:18 08/23/20 23 08/27/2023 SHELTON FIBRO [...] [facility] [address] [place], [address], 08/27/2023 18:06:18 08/23/20 23 08/27/2023 SHELTON FIBRO [...] conta ct custo marc servi ce at [phone]. Refer ences : 1. Jennifer Lopez et [...] Not Available [facility] [address] [place], [address], 08/27/2023 18:06:18 08/23/20 23 08/27/2023 SHELTON FIBRO SURE methodology Commen t (NOTE ) The diana george teste d are perfo rmed by [facility] [employer] Speci fic metho ds. Not inten ded for use with other diagn ostic consi derat ions. Test perfo rmed at [facility] [place] , [facility] , [place] [address] Not Available [facility] [address] [place], [address], 08/27/2023 18:06:18 08/23/20 23 08/29/2023 HEPAT ITIS B QUANT ITATI VE, PLASM A hepatitis B quantitative , plas IU/mL Not detec benjamin HBV DNA was not detec benjamin in the speci men. Resul t repor benjamin to the [facility]. Testi ng perfo rmed by real time PCR utili zing [employer] HBV test. To preve nt error s [...] Available [facility] [address] [place], [address], 08/29/2023 15:10:11 08/23/20 23 08/29/2023 HEPAT ITIS B QUANT ITATI VE, PLASM A hbvlog LOG value not calcul ated logiu /mL Not Available [facility] [address], [place], [address], 08/29/2023 15:10:11 07/03/20 24 07/04/2024 ALB+A LP+AL T+AST +TBIL I+PT albumin 4.3 g/dL 3.8-4. 8 normal Not Available [facility] ([facility]) [address] [place], [address], 07/04/2024 10:07:03 07/03/20 24 07/04/2024 ALB+A LP+AL T+AST +TBIL I+PT bilirubin, total 0.4 mg/dL 0.0-1. 2 normal Not Available [facility] ([facility]) [address] [place], [address], 07/04/2024 10:07:03 07/03/20 24 07/04/2024 ALB+A LP+AL T+AST +TBIL I+PT alkaline phosphatase 96 IU/L 44-121 normal Not Available [facility] ([facility]) [address] [place], [address], 07/04/2024 10:07:03 07/03/20 24 07/04/2024 ALB+A LP+AL T+AST +TBIL I+PT AST (SGOT) 20 IU/L 0-40 normal Not Available [facility] ([facility]) [address] [facility], [place], [address], 07/04/2024 10:07:03 07/03/20 24 07/04/2024 ALB+A LP+AL T+AST +TBIL I+PT ALT (SGPT) 16 IU/L 0-44 normal Not Available [facility] ([facility]) [address] [facility], [place], [address], 07/04/2024 10:07:03 07/03/2007/04/2024 ALB+A LP+AL T+AST +TBIL [...] range 2.5 - 3.5 Not Available [facility] ([facility]) [address] [facility], [place], [address], 07/04/2024 10:07:03 07/03/20 24 07/04/2024 ALB+A LP+AL T+AST +TBIL I+PT prothrombin time 11.3 sec 9.1-12 .0 normal Not Available [facility] ([facility]) [address] [facility], [place], [address], 07/04/2024 10:07:03 07/03/2007/04/2024 GLOM FILT RATE, ESTIM ATED creatinine 1.72 mg/dL 0.76-1 .27 above high normal Not Available [facility] ([facility]) [address] [place], [address], 07/04/2024 10:07:04 07/03/20 24 07/04/2024 GLOM FILT RATE, ESTIM ATED eGFR 42 mL/mi n/1.7 3 >59 below low normal Not Available [facility] ([facility]) [address] [facility], [place], [address], 07/04/2024 10:07:04 07/03/20 24 07/04/2024 HCV ANTIB MIYA RFX TO QUANT PCR HCV Ab Non Reacti ve non reacti ve Not Available [facility] ([facility]) [address] [facility], [place], [address], 07/04/2024 10:07:05 07/03/20 24 07/04/2024 HCV ANTIB MIYA RFX TO QUANT PCR interpretati on: Commen t Not infec benjamin with HCV unles s early or acute infec tion is suspe cted (whic h may be delay ed in an immun ocomp romis ed indiv idual ), or other evide nce exist s to indic ate HCV infec tion. Not Available [facility] ([facility]) [address] [facility], [place], [address], 07/04/2024 10:07:05 07/03/20 24 07/04/2024 HEPAT ITIS B SURF AB QUANT hepatitis B surf Ab quant 62.9 mIU/m L immuni ty>10 Statu s of Immun ity Anti- HBs Level ----- ----- ----- --- ----- ----- ---- Incon siste nt with Immun ity 0.0 - 10.0 Consi stent with Immun ity >10.0 Not Available [facility] ([facility]) [address] [facility], [place], [address], 07/04/2024 10:07:06 08/26/20 23 06/20/2023 US, abdom en No observ ation record ed. [email or web address] Not Available 08/26 16:46:31 07/05/20 24 03/08/2024 imagi ng/di agnos tic resul t No observ ation record ed. [email or web address] Not Available 07/05 10:01:27 07/05/20 24 02/13/2024 imagi ng/di agnos tic resul t No observ ation record ed. [email or web address] Not Available 07/05 10:04:14 Result Notes None recorded. Problems Name Problem SNOMED Code Status Onset Date Resolution Date Notes Provider Name and Address Organization Details Recorded Time Cholelith iasis with obstructi on 04091594 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 with obstructio n; 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; Report Immunity to Registry: Yes; Notes: u/s 2010; Not Available [facility] 4 06:58:53 Chronic obstructi ve pulmonary disease 27592864 Active 2019 Chronic obstructiv e lung disease; snomeddesc ription: Chronic obstructiv e lung disease; Report Immunity to Registry: Yes; Notes: pt reports dx by PCP; Chronic obstructiv e pulmonary disease, unspecifie d; snomeddesc ription: Chronic obstructiv e lung disease; Report Immunity to Registry: Yes; Notes: pt reports dx by PCP; Not Available [facility] 4 06:58:53 Cerebrova scular accident 369952095 Active 2019 Cerebrovas cular accident; snomeddesc ription: Cerebrovas cular accident; Report Immunity to Registry: Yes; Notes: hx; Not Available [facility] 4 06:58:53 Chronic kidney disease 768858179 Active 2021 Chronic kidney disease; snomeddesc ription: Chronic kidney disease; Report Immunity to Registry: Yes; Notes: 03/2021 eGFR =34; Not Available [facility] 4 06:58:53 Chronic type B viral hepatitis 77580072 Active 2022 Chronic type B viral hepatitis; [...] 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; F3 2020; Not Available [facility] 4 06:58:53 Myocardia l infarctio n 51123128 Active 2013 Myocardial infarction ; snomeddesc ription: Myocardial infarction ; Report Immunity to Registry: Yes; Notes: 07/03/14 stent x 3; Not Available [facility] 4 06:58:53 Gallbladd er and bile duct calculi 065683006 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; 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; Report Immunity to Registry: Yes; Notes: u/s 2010; Not Available [facility] 4 06:58:53 Abdominal aortic aneurysm 748175584 Active 2013 Abdominal aortic aneurysm without mention of rupture; snomeddesc ription: Abdominal aortic aneurysm; Report Immunity to Registry: Yes; Abdominal aortic aneurysm; snomeddesc ription: Abdominal aortic aneurysm; Report Immunity to Registry: Yes; Not Available [facility] 4 06:58:53 Acute myocardia l infarctio n 18716580 Active 2013 Acute myocardial infarction , unspecifie d site; snomeddesc ription: Myocardial infarction ; Report Immunity to Registry: Yes; Notes: 07/03/14 stent x 3; Not Available [facility] 4 06:58:54 Cerebral infarctio n 836501008 Active 2019 Cerebral infarction , unspecifie d; snomeddesc ription: Cerebrovas cular accident; Report Immunity to Registry: Yes; Notes: hx; Not Available [facility] 4 06:58:54 Problem Notes None recorded. Procedures Surgical History None recorded. Imaging Results Imaging Date Name Status LastModified by Organiz [facility] Details LastModified Time 06/20/2023 US, abdomen completed [email or web address] Information n ot available 08/26/2023 16:46:31 03/08/2024 imaging/diag nostic result completed [email or web address] Information not available 07/05/2024 10:01:27 02/13/2024 imaging/diag nostic result completed [email or web address] Information not available 07/05/2024 10:04:14 Procedure Notes [...] no; Not Available Not Available Not Available [employer] Ultra Test strips 0 Quantity : 100; [...] TABLET BY MOUTH 1 TIME A DAY 2024 active Not Available Not Available Not Avai lable Zostavax (PF) 19,400 unit/0.65 mL subcutane [place]ens[place] [id number] Quantity : 1; Duration : 1; 0 [...] Pneumoco ccal conjugat e PCV20, polysacc haride [id number] conjugat e, adjuvant , PF; SU_FULL_ NAME: [...] Updated DateTime 3 172.72 cm 22.1 kg/m2 31884.6 9 g 98 [degF] 98 % 98 % 68 /min 110 mm[Hg] 78 mm[Hg] Eunice OKEEFE MD [facility] 3 14:31:17 Date Recorded Body height Heart rate Respiratory rate Body temperature Body mass index (BMI) Body weight Oxygen saturation Oxygen saturation in Arterial blood by Pulse oximetry Systolic blood pressure Diastolic blood pressure Provider Name and Address Organization Details Last Updated DateTime 4 172.72 cm 56 /min 10 /min 98.5 [degF] 23.4 kg/m2 60752.2 2 g 98 % 98 % 118 mm[Hg] 58 mm[Hg] Daniela OKEEFE MD [facility] 4 12:30:04 Social History Question Answer Notes LastModified by Organizat ion Details LastModified Time Tobacco Smoking Status Never 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 No [email or web address] Information not available 08/23/2023 Are You Deaf Or Do You Have Serious Difficulty Hearing? No [email or web address] Information not available 08/23/2023 Which Of Your Hands Is Dominant? Right [email or web address] Information not available 08/23/2023 Do You Feel Stressed (tense, Restless, Nervous, Or Anxious, Or Unable To Sleep At Night)? [id number] [email or web address] Information not available 08/23/2023 Sex: Male Functional Status Question Answer Note LastModified by Organizat ion Details LastModified Time Do you have difficulty walking or climbing stairs? Yes stroke [email or web address] Information not available 08/23/2023 Do you have transportation difficulties? No [email or web address] Information not available 08/23/2023 Are you able to walk? YESASSIST pt walks with a dorene [email or web address] Information not available 08/23/2023 Do you have difficulty doing errands alone? No [email or web address] Information not available 08/23/2023 Are you able to care for yourself? Yes [email or web address] Information n ot available 08/23/2023 Do you have difficulty dressing or bathing? Yes pt has a person that helps with bathing and dressing [email or web address] Information not available 08/23/2023 Mental Status Question Answer Note LastModified by Organization D etails LastModified Time Do you have difficulty concentrating, remembering or making decisions? No [email or web address] Information no t available 08/23/2023 Family History Nothing Reported Notes:Family history unknown , Response Property: Yes; , No known relatives, Response Property: Yes; Medical History Condition Response Coronary Artery Disease Y Heart Disease Y Stroke Y Diverticulitis Y Immunizations Vaccine Type Date Status Note Provider Nam e and Address Organization Details Recorded Time Influenza, split virus, quadrivalent, preservative 2 completed Not Available [facility] 12/13/2023 06:54:23 Influenza, split virus, quadrivalent, preservative completed Not Available [facility] 12/13/2023 06:54:24 Past Encounters Encounter ID Performer Location Encounter Start Date Encounter Closed Date Diagnosis/Indication Diagnosis SNOMED-CT Code Diagnosis ICD10 Code Diagnosis Note 997 Marie Okeefe MD Main Office [address] [place] [address] 08/23/2023 14:09:45 08/23/2023 14:48:23 Type B viral hepatitis [id number] B19.10 HBV: Continue Entecavir 0.5 mg po [...] of care reviewed. Questions and concerns addressed [id number] Marie Okeefe MD Main Office [address] [place] [address] 07/03/2024 12:11:28 07/03/2024 12:39:10 Type B viral hepatitis [id number] B19.10 HBV: Continue Entecavir 0.5 mg po [...] ID Guarantor Name 08/23/2023 1 [place]IC[place]: [employer] SERVICES Phan Gipson [id number] Phan Gipson 08/23/2023 2 BCBS-[place]: [facility] ([place]) 104 Phan Gipson [id number] Phan Stauffer Leonela 07/03/2024 1 [place]IC[place]: [employer] Phan Gipson [id number] Phan Stauffer Leonela 07/03/[address] [facility]-[place]: [employer] 104 Phan Gipson [id number] Phan Stauffer Leonela Notes Date Note Type [...] booster; will get arexvy. Marie Okeefe MD [address] [place] [address], [phone], [facility] - MARIE OKEEFE MD [facility] 08/23/2023 16:59:39 4 text/html f/u HBV. CKDon [...] booster; will get arexvy. Marie Okeefe MD [address] [place] [address], [phone], [facility] - MARIE OKEEFE MD [facility] 07/03/2024 12:46:44
--- OUTSIDE RECORDS SUMMARY | 2024-12-06 13:17 | XMS_ITS | Encounter Summary ---
Author Organization [facility] Address [address] [facility] [address] [place] [address] Phone Care Team Providers Care Mobile Home Technician Name Role Phone Afia Cabrera MD Primary Care Provider [phone] Encounter Details Date Type Department Care Team (Late Contact Info) Description 12/20/2021 Documentation Only [facility] [address] [facility] [place] [place] [address] Chandrakant Lei MD [address] [address] Social History Tobacco Use Types Packs/Day Years Used Date Smoking Tobacco: Every Day Cigarettes Alcohol Use Standard Drinks/Week Comments No 0 (1 standard drink = 0.6 oz pur e alcohol) Sex and Gender Information Value Date Recorded Sex Assigned at Not on file Legal Sex Male 4:58 PM EST Gender Identity Not on file Sexual Orientation Not on file COVID-19 Exposure Response Date Recorded In the last month, have you been in contact with someone who was confirmed or suspected to have Coronavirus / COVID-19? Unable to assess 12/09/2021 12:28 PM EST documented as of this encounter Plan of Treatment Upcoming Encounters Date Type Department Care Team (Late Contact Info) Description 04/28/2025 2:30 PM EDT Office Visit [facility] [address] [place] [address] Chandrakant Lei MD [address] [address] documented as of this encounter Visit Diagnoses Not on filedocumented in this encounter Care Teams Mobile Home Technician Relationship Specialty Start Date End Date Afia Cabrera MD [address] [address] PCP - General Family Medicine 04/28/21 documented as of this encounter
--- OUTSIDE RECORDS SUMMARY | 2024-12-06 13:17 | XMS_ITS | Clinical Summary ---
Author Organization [facility] Address [address] [facility] [address] [place] [address] Phone Care Team Providers Care Funding Analyst Name Role Phone Afia Cabrera MD Primary Care Provider Allergies No known active allergies Medications nitroglycerin (NITROSTAT) 0.4 MG SL tablet Active atorvastatin (LIPITOR) 80 MG tablet Take 1 tablet by mouth 1 (one) time each day Active Aspirin Low Dose 81 MG EC tablet Take 81 mg by mouth 1 (one) time each day 1 Active Brilinta 90 MG tablet 1 Active latanoprost (XALATAN) 0.005 % ophthalmic solution ADMINISTER 1 DROP INTO BOTH EYES AT BEDTIME 1 Active Tresiba FlexTouch 100 UNIT/ML injection 1 Active insulin aspart (NovoLOG FLEXPEN) 100 UNIT/ML injection Active escitalopram (LEXAPRO) 10 MG tablet Take 20 mg by mouth 1 (one) time each day 1 Active ezetimibe (ZETIA) 10 MG tablet Take 10 mg by mouth 1 (one) time each day 1 Active cholecalciferol (VITAMIN D-3) 50 MCG (2000 UT) capsule Take 2,000 Units by mouth 1 (one) time each day 1 Active metoprolol succinate XL (TOPROL XL) 50 MG 24 hr tablet Take 50 mg by mouth 1 (one) time each day 1 Active melatonin 3 MG tablet Take 5 mg by mouth every night 1 Active hydrALAZINE 50 MG tablet Take 50 mg by mouth 1 (one) time each day 1 Active dorzolamide-prabhjot olol (COSOPT) 22.3-6.8 MG/ML ophthalmic solution INSTILL ONE DROP TO BOTH EYES TWICE A DAY Active amLODIPine (NORVASC) 10 MG tabletIndicatio ns:Chronic type B viral hepatitis (HCC) Take 1 tablet (10 mg total) by mouth 1 (one) time each day Was change from 2.5 to 5 mg today 04/28/21 by pcp 30 tablet 3 3 Active Active Problems Problem Noted Date Diagnosed Date Encounter for screening for malignant neoplasm o f colon 01/25/2024 Diarrhea 01/25/2024 Chest pain 01/25/2024 Type 2 diabetes mellitus wit h diabetic chronic kidney disease 01/25/2024 Atherosclerotic renal artery stenosis 01/15/2024 Constipation 12/25/2023 Inguinal hernia 09/13/2022 Cough 08/24/2022 Anxiety 05/18/2022 COVID-19 01/17/2022 Cerebrovascular accident 11/29/2021 Coronary arteriosclerosis 11/29/2021 Diverticular disease 11/29/2021 Pituitary adenoma 11/29/2021 Myocardial infarction 11/29/2021 Stage 3b chronic kidney disease 11/29/2021 Hypertensive renal disease 11/29/2021 Microalbuminuria 10/01/2021 Spasticity as sequela of stroke 06/01/2021 Mixed anxiety and depressive disorder 04/28/2021 Squamous cell carcinoma of zoroastrianism 03/26/2021 Hemiplegia and/or hemiparesis following stroke 0 03/18/2021 Abdominal aortic aneurysm 03/08/2021 Acute non-ST segment elevation myocardial infarc tion 03/08/2021 Anal warts 03/08/2021 Condyloma acuminatum of the anogenital region Cataract 03/08/2021 Chronic kidney disease stage 3 03/08/2021 Chronic type B viral hepatitis 03/08/2021 Genital herpes simplex 03/08/2021 Glaucoma 03/08/2021 Unspecified open-angle glaucoma, stage unspecifi ed 03/08/2021 Hyperlipidemia 03/08/2021 Pure hypercholesterolemia 03/08/2021 Insomnia 03/08/2021 Lumbar radiculopathy 03/08/2021 Lyme disease 03/08/2021 Type 1 diabetes mellitus 03/08/2021 Tobacco dependence syndrome 03/08/2021 Subconjunctival hemorrhage of right eye 03/08/20 21 Myelinated nerve fibers of optic disc 03/08/2021 Uncontrolled type 1 diabetes mellitus 03/08/2021 Overview (07/23/2024): Replacing diagnoses that were inactivated after the 07/23/24 Regulatory Import Vitamin D deficiency 03/08/2021 Vitreous floaters 03/08/2021 Stage 3b chronic kidney disease 03/08/2021 Renal osteodystrophy 03/08/2021 Type 1 diabetes mellitus wit h diabetic chronic kidney disease 07/06/2020 Serum creatinine above reference range 0 Chronic obstructive pulmonary disease 12/23/2019 Essential hypertension 11/13/2019 History of Lyme disease 05/07/2019 History of diverticulitis 05/07/2019 Overview (03/27/2023): S/p sigmoid colectomy History of cerebrovascular accident 05/07/2019 Claudication 05/07/2019 Acquired melanocytic nevus of retina 05/07/2019 Overview (03/27/2023): OS History of malignant basal cell neoplasm of skin 05/07/2019 Pituitary mass 02/14/2019 Bilateral stenosis of carotid arteries 9 Acute exacerbation of chronic obstructive pulmon mimi disease 06/28/2018 Recurrent coronary arteriosc lerosis after percutaneous transluminal coronary angioplasty 01/22/2018 Carotid artery stenosis 11/26/2017 Peripheral circulatory disor kalia due to type 1 diabetes mellitus 11/26/2017 Basal cell carcinoma of nose 10/23/2014 Overview (01/25/2024): Removal Reason: excision Disorder of skin 06/27/2012 Overview (01/25/2024): RECORDED 06/27/2012 10:38AM BY ZULEIKA KAN [place], ANNOTATION/ADDENDUM Immunizations Name Administration Dates Next Due Influenza (IM) Preservative Free 07/10/2014 Influenza Split High Dose Pr eservative Free IM 08/16/2019,07/05/2018,06/20/2017 Influenza Split Preservative Free ID 06/28/2013, 06/28/2013 Influenza TIV (IM) 06/27/2012, 2,09/14/2011,09/14 Influenza, Quadrivalent, Pre servative Free 10/14/2016,08/07/2015 Influenza, Quadrivalent, Wit h Preservative 08/04/2021 Influenza, Unspecified 07/06/2020 Pfizer SARS-COV-2 08/02/2022, 1,01/22/2021,01/01 Pneumococcal Conjugate 13-Valent 02/09/2016 Pneumococcal Polysaccharide 04/13/2017 Pneumococcal, Unspecified 04/13/2017 Shingrix 04/11/2020,06/26/2019 Tdap 04/16/2018,04/13/2017 Zoster 04/11/2020,06/26/2019,04/20/2016 Family History Medical History Relation Comments Heart disease Father AAA Hypertension Father Cancer Mother skin Diabetes Sibling 1 Cancer Sibling 2 skin Relation Status Comments Father Mother Sibling 1 Sibling 2 Social History Tobacco Use Types Packs/Day Years Used Date Smoking Tobacco: Every Day Cigarettes Alcohol Use Standard Drinks/Week Comments No 0 (1 standard drink = 0.6 oz pur e alcohol) Sex and Gender Information Value Date Recorded Sex Assigned at Not on file Legal Sex Male 4:58 PM EST Gender Identity Not on file Sexual Orientation Not on file Last Filed Vital Signs Vital Sign Reading Time Taken Comments Blood Pressure 122/62 08/05/2024 1:49 PM EDT Pulse 54 08/05/2024 1:49 PM EDT Temperature - - Respiratory Rate - - Oxygen Saturation 96% 08/05/2024 1:49 PM EDT Inhaled Oxygen Concentration - - Weight 69.5 kg (153 lb 3.2 oz) 08/05/2024 1:49 P M EDT Height 172.7 cm (5' 8 ) 04/28/2021 3:26 PM EDT Body Mass Index 23.29 04/28/2021 3:26 PM EDT Plan of Treatment Upcoming Encounters Date Type Department Care Team (Late st Contact Info) Description 04/28/2025 2:30 PM EDT Office [facility] [address] [place] [address] Chandrakant Lei MD 0[address] [facility] [address] [place] [address] Health Maintenance Due Date Last Done Comments Colorectal Cancer Screening: Annual FOBT 12/30/2000 Colorectal Cancer Screening: Colonoscopy 12/30/2000 Colorectal Cancer Screening: Sigmoidoscopy 12/30/2000 Hepatitis B Vaccine (1 of 3 - Risk 3-dose series) 2011 10/12/2023, 02/22/2023, 02/13/2023, Additional history exists Diabetes: Ophthalmology Exam 11/20/2020 Diabetes: Pedal Pulse Checked 11/20/2020 Diabetes: Sensory Foot Exam 11/20/2020 Diabetes: Visual Foot Exam 11/20/2020 Diabetes: Hemoglobin A1C 04/03/2024 01/02/2024, 12/21 Pneumococcal Vaccine: 65+ Years Completed 04/13/2017, 04/13/2017, 02/09/2016 Influenza Vaccine Completed 07/19/2024, , 07/06/2020, Additional history exists Procedures Procedure Name Priority Date/Time Associated Diagnosis Comments EXT RESULT ENTRY Routine 01/02/2024 from Last 3 Months or Most Recently Relevant to Health Maintenance Results * (ABNORMAL) EXT RESULT ENTRY (01/02/2024) Hemoglobin A1C 9.8(A) 4.0 - 6.0 01/02/2024 us Historical Provider LAB BLOOD ORDERABLES Johana l Result from Last 3 Months or Most Recently Relevant to Health Maintenance Insurance [facility] MEDICARE MEDICARE Care Teams Funding Analyst Relationship Specialty [place] [address] [place] [phone] PCP - General Family Medicine 04/28/21
--- OUTSIDE RECORDS SUMMARY | 2024-12-06 13:17 | XMS_ITS | Encounter Summary ---
Author Organization [facility] Address [address] [facility] [address] [place] [address] Phone Care Team Providers Care State Highway Police Officer Name Role Phone Afia Cabrera MD Primary Care Provider [phone] Encounter Details Date Type Department Care Team (Late Contact Info) Description 03/15/2021 Orders Only [facility] [address] [place] [address] Chandrakant Lei MD [address] [facility] [address] [place] [address] Chronic type B viral hepatitis (HCC); Stage 3b chronic kidney disease (HCC); Renal osteodystrophy Social History Tobacco Use Types Packs/Day Years [...] or suspected to have Coronavirus / COVID-19? No / Unsure 03/18/2021 10:11 AM EDT documented as of this encounter Plan of Treatment Upcoming Encounters Date Type Department Care Team (Late Contact Info) Description 04/28/2025 2:30 PM EDT [facility] [address] [place] [address] Chandrakant Lei MD 15[address] [facility] [address] [place] [address] documented as of this encounter Procedures Procedure Name Priority Date/Time Associated Diagnosis Comments BIOIMPEDANCE DERIVED PHYSIOLOGIC CV ANALYSIS Routine 03/18/2021 10:10 AM EDT Chronic type B viral hepatitis (HCC) Stage 3b chronic kidney disease (HCC) Renal osteodystrophy documented in this encounter Results * Bioimpedance Derived Physiologic CV Analsysis (03/18/2021 10:10 AM EDT) Anatomical Region Laterality Modality Other Chandrakant Lei MD CV CARDIAC SERVICES PROCEDURE S Final Result documented in this encounter Visit Diagnoses Diagnosis Chronic type B viral hepatitis (HCC) Stage 3b chronic kidney disease (HCC) Renal osteodystrophy documented in this encounter Care Teams State Highway Police Officer Relationship Specialty Start Date End Date Afia Cabrera MD [address] [address] PCP - General Family Medicine 04/28/21 documented as of this encounter
--- OUTSIDE RECORDS SUMMARY | 2024-12-06 13:17 | XMS_ITS | Patient Health Record ---
Author Organization [facility] Address [address] [place] [address] Care Team Providers Care Manager Long Term Care Name Role Phone Afia Cabrera Primary Care Provider Mikey Figueredo [phone] ALLERGIES No Known Allergies RESULTS Component Value Reference Range Notes Leukocytes Stool Qualitative Reviewed date:10/03/2024 04:38:18 PM Interpretation: Performing Lab:[address] [address] Notes/Report: Leukocytes Stool Qualitative NEGATIVE NEGATIVE Giardia Ag Stool EIA Reviewed date:10/09/2024 01:43:34 PM Interpretation: Performing Lab:[address] [address] Notes/Report: Giardia Ag Stool EIA SEE NOTE GIARDIA AG, EIA, STOOL Micro Number: [id number] Test Status: Final Specimen Source: Stool Specimen Quality: Adequate Giardia Result 1: Not Detected Reference Range: Not Detected NOTE: Due to intermittent shedding, one negative sample does not necessarily rule out the presence of a parasitic infection. THIS TEST WAS PERFORMED AT: [facility] [address] [place] [address] ALESSANDRO PATRICK MD Calprotectin, Fecal Reviewed date:10/11/2024 04:04:55 PM Interpretation: Performing Lab:[address] [address] Notes/Report: Calprotectin, Fecal 132 Reference Range: <50 Normal 50-120 Borderline >120 Elevated Calprotectin in Crohn's disease and ulcerative colitis can be five to several thousand times above the reference population (50 mcg/g or less). Levels are usually 50 mcg/g or less in healthy patients and with irritable bowel syndrome. Repeat testing in 4-6 weeks is suggested for borderline values. THIS TEST WAS PERFORMED AT: [facility] [address] [place] [address] PEDRO TINOCO MD,PHD,DARYL Ova and Parasite Reviewed date:10/09/2024 01:43:13 PM Interpretation: Performing Lab:[address] [address] Notes/Report: Ova and Parasite SEE NOTE OVA AND PARASITES, CONC AND PERM SMEAR Micro Number: [id number] Test Status: Final Specimen Source: Stool Specimen Quality: Adequate CONCENTRATION 1: No ova or parasites seen TRICHROME 1: No ova or parasites seen Routine Ova and Parasite exam may not detect some parasites that occasionally cause diarrheal illness. Cryptosporidium Antigen and/or Cyclospora and Isospora Exam may be ordered to detect these parasites. One negative sample does not necessarily rule out the presence of a parasitic infection. For additional information, please refer to https://education.Exit41.Rome2rio/faq/NAQ689 (This link is being provided for informational/ educational purposes only.) THIS TEST WAS PERFORMED AT: [facility] [address] [address] FARHAD HOGAN MD CDiff Gene PCR Reviewed date:10/03/2024 11:05:32 PM Interpretation: Performing Lab:[address] [address] Notes/Report: CDiff Gene PCR NEGATIVE Negative If C. difficile strongly suspected despite one negative test, a second test may be sent vs. empiric treatment for C. difficile infection. GI PANEL Reviewed date:10/04/2024 01:24:21 PM Interpretation: Performing Lab:[address] [address] Notes/Report: Campylobacter Not Detected Not Detect. Plesiomonas shigelloides Not Detected Not Detect. Salmonella Not Detected Not Detect. Vibrio Not Detected Not Detect. Vibrio Cholerae Not Detected Not Detect. Yersinia enterocolitica Not Detected Not Detect. E. coli EAEC Not Detected Not Detect. E. coli EPEC Not Detected Not Detect. E. coli ETEC Not Detected Not Detect. E. coli STEC Not Detected Not Detect. E. coli O157 Not applicable Not Detect. E. coli containing the O157 antigen are a subset of Shiga-like toxin-producing E. coli (STEC). Shigella sp./EIEC Not Detected Not Detect. Cryptosporidium Not Detected Not Detect. Cyclospora cayetanensis Not Detected Not Detect. Entamoeba histolytica Not Detected Not Detect. Giardia lamblia Not Detected Not Detect. Adenovirus F 40/41 Not Detected Not Detect. Astrovirus Not Detected Not Detect. Norovirus GI/GII Not Detected Not Detect. Rotavirus A Not Detected Not Detect. Sapovirus Not Detected Not Detect. All results must be correlated with clinical findings. Negative results do not exclude the possibility of gastrointestinal infection and should not be used as the sole basis for diagnosis, treatment, or other management decisions. Virus, bacteria, and parasite nucleic acid may persist in vivo independently of organism viability. Additionally, some organisms may be carried asymptomatically. Detection of organism targets does not imply that the corresponding organisms are infectious or are the causative agents for clinical symptoms. There is a risk of false negative values due to the presence of sequence variants in the gene targets of the assay, amplification inhibitors in specimens, or inadequate numbers of organisms for amplification. The identification of several diarrheagenic E. coli pathotypes has historically relied upon phenotypic characteristics. This panel targets genetic determinants characteristic of most pathogenic strains, but may not detect all strains having phenotypic characteristics of a pathotype. The performance of this test has not been established for monitoring treatment of infection with any of the panel organisms. This assay is performed by Multiplexed PCR, utilizing the CloudArena Array. REASON FOR REFERRAL No Information MEDICATIONS Medication SIG (Take, Route, Frequency, Duration) Notes Start Date End Date Status Aspirin Active Atorvastatin Calcium 80 MG Oral for 28 Active Lexapro Active Omeprazole 20 MG Oral for 28 A ctive Lipitor Active Metoprolol Tartrate Active Symbicort Not-Taking hydrALAZINE HCl 50 MG Oral for 28 Active Vitamin D Active amLODIPine Besylate 10 MG Oral for 28 Active Entecavir 0.5 MG 1 tablet on an empty stomach Orally Once a day for 10 day(s) Active Albuterol Active Brilinta Active Tylenol PM Extra Strength Active NovoLOG Active Dorzolamide HCl-Timolol Mal Active Latanoprost Active IMMUNIZATIONS Vaccine Route Administration Date Status Comme nts Influenza Unknown 06/23/2018 Administered Influenza Unknown 07/23/2019 Administered SOCIAL HISTORY Tobacco Use: Social History Observation Description Date Details (start date - stop date) Former Smoker NA - NA Sex Assigned At : Social History Observation Description Sex Assigned At Unknown Tobacco Use/Smoking Question Answer Notes Patient is a former smoker How long has it been since you last smoked? 1-5 years PROBLEMS Problem Type ICD Code Onset Dates Problem Status W/U Status Risk SNOMED Code Notes Problem Preprocedural examination (Z01.818) Active confirmed 94331873 Problem Encounter for screening for malignant neoplasm of colon (Z12.11) Active confirmed 771277206 Problem Encounter for screening for malignant neoplasm of rectum (Z12.12) Active confirmed Screening for malignant neoplasm of rectum (534290258) Problem Diarrhea, unspecified type (R19.7) Active confirmed 41794546 Problem Weight loss (R63.4) Active confirmed 68561900 Problem Giardia (A07.1) Active confirmed 130947 07 Problem Diarrhea (R19.7) Active confirmed Diarr hea (19942507) Problem Irregular bowel habits (R19.8) Active confirmed Irregular bowel habits (709458662) VITAL SIGNS Blood pressure diastolic 00 mm Hg 10/04/2024 Height 68 in 10/04/2024 Blood pressure systolic 00 mm Hg 10/04/2024 Weight 154 lbs 10/04/2024 BMI 23.41 kg/m2 10/04/2024 Encounters Encounter Location Date Provider Diagnosis [facility] [address] [place] [address] 10/04/2024 Mikey Montenegro Diarrhea, unspecifie d type R19.7 and Irregular bowel habits R19.8 [facility] [address] [place] [address] 06/04/2024 Mikey Montenegro Diarrhea R19.7 ASSESSMENTS Encounter Date Diagnosis Assessment Notes Treatment Notes Treatment Clinical Notes 10/04/2024 Irregular bowel habits (ICD-10 - R19.8) Start 2 Metamucil fiber pills with a glass of water every morning and/or add a probiotic every day to try to help regulate the BM's 10/04/2024 Diarrhea, unspecified type (ICD-10 - R19.7) 06/04/2024 Diarrhea (ICD-10 - R19.7) 10/04/2024 Other Repeat colonosc opy in 2025 PLAN OF TREATMENT Pending Test Test Name Order Date CLOSTRIDIUM DIFF TOXIN A&B (C DIFF) 12/21 CULTURE, STOOL 05/18/2021 STOOL WBC 05/18/2021 STOOL WBC 06/04/2024 C DIFFICILE RFLX PCR 05/18/2021 C DIFFICILE RFLX PCR 06/04/2024 Giardia Ag Stool EIA 06/04/2024 Calprotectin, Fecal 06/04/2024 Ova and Parasite 06/04/2024 GI PANEL 06/04/2024 Future Test Test Name Order Date COLONOSCOPY 01/19/2016 COLONOSCOPY 01/03/2019 Insurance Providers Payer Name Payer Address Payer Phone Subscriber Number Group Number Insured Name Patient Relationship to Insured Coverage Start Date Coverage End Date MEDICARE OF [place] [address] [place] [address] [id number] AYSHA SHAFFER Self - patient is the insured [facility] [address] [place], [place] [id number] [phone] [id number] AYSHA SHAFFER Self - patient is the insured MEDICAL (GENERAL) HISTORY Medical History History ICD Code Colonoscopy 06-13-2004, 1996, and 01/2016-- negative except for some diverticulosis and internal hemorrhoids EGD 03-10-1995--minimal changes of reflux IDDM Heart attack--2013--3 stents- dr. valderrama Chronic hepatitis B--sees Dr Barraza --liver biopsy in 2008 revealed a grade 2/4 hepatitis and stage I/IV fibrosis. In 2014 he had a normal CBC and platelet count, liver profile, and a normal liver ultrasound. He is on Descovy with Dr. Barraza. He had a negative liver ultrasound in September 2018. Denies Lung disease,renal disease Anxiety Diverticulitis with surgery as below Asymptomatic gallstones--william milan is aware and reviewed again at the 01/03/19 OV Giardia in 12/2018-treated wi th Flagyl with good relief of diarrhea. He had another episode of diarrhea in May 2019 that responded to another course of Flagyl, although stool specimens were negative for Giardia and C. difficile at that time. Lyme's disease Stroke in 2020 with a residual weakness in the left upper extremity Renal artery stent Surgical History Surgery Date(Month/Year) Carotid endarterectomy-right 2011 and Sigmoid resection for diverticulitis in 1997--Dr. Acuna
--- OUTSIDE RECORDS SUMMARY | 2024-12-06 13:17 | XMS_ITS | Clinical Summary ---
Author Organization [facility] Address [address] [place] [address] Care Team Providers Care Airplane Engineer Name Role Phone Ryder Lou MD Primary Care Provider [phone] Allergies No known active allergies Active Problems Problem Noted Date Diagnosed Date Spasticity as late effect of cerebrovascular acc ident (CVA) 06/01/2021 Acquired melanocytic nevus of retina 05/07/2019 Overview (10/06/2024): OS Cataract 05/07/2019 Chronic hepatitis B 05/07/2019 Overview (10/06/2024): Truvada Claudication 05/07/2019 Condyloma acuminata 05/07/2019 Genital herpes 05/07/2019 Glaucoma 05/07/2019 Hyperlipidemia 05/07/2019 Hypertension 05/07/2019 Insomnia 05/07/2019 Lumbar radiculopathy 05/07/2019 Myelinated nerve fibers of optic disc, right Coronary artery disease 05/07/2019 Overview (10/06/2024): Old NSTEMI, stents x 3 Retinal artery plaque 05/07/2019 Pituitary mass 05/07/2019 Type 1 diabetes mellitus 05/07/2019 Abdominal aortic aneurysm (AAA) without rupture 01/09/2019 Carotid stenosis, bilateral 01/09/2019 PAD (peripheral artery disease) 01/09/2019 Immunizations Name Administration Dates Next Due Pneumococcal conjugate 13 va lent (Prevnar 13, PCV13) 2mo and older 02/09/2016 Pneumococcal, Unspecified 04/13/2017 Tdap Tetanus diptheria acell ular pertussis (Boostrix; Adacel) 7yo and older 04/16/2018,04/13/2017 Zoster Live 04/20/2016 Surgical History Surgery Date Site/Laterality Comments CAROTID ENDARTERECTOMY 07/2009 Right PROCEDURE: HISTORICAL CAROTID ENDART APPENDECTOMY PROCEDURE: HISTORICAL APPENDECTOMY OTHER SURGICAL HISTORY 1997 PROCEDURE: ME COLECTOMY PARTIAL W/ANASTOMOSIS; COMMENT: sigmoid resection for diverticulitis OTHER SURGICAL HISTORY 07/07/2015 PROCEDURE: HISTORICAL CA BASAL CELL; COMMENT: removed from nose CARDIAC CATHETERIZATION 06/2014 PROCEDURE: HISTORICAL CARDIAC CATH; COMMENT: stents to RCA Medical History Medical History Date Comments Abdominal aortic aneurysm (A AA) without rupture (CMS/HCC) 01/09/2019 DX:Abdominal aortic aneurysm (AAA) without rupture (HCC) Acquired melanocytic nevus of retina 05/07/2019 DX:Acquired melanocytic nevus of retina; COMMENT: OS Carotid stenosis, bilateral 01/09/2019 DX:C arotid stenosis, bilateral Cataract 05/07/2019 DX:Cataract Chronic hepatitis B (CMS/HCC) 05/07/2019 DX :Chronic hepatitis B (HCC); COMMENT: Truvada Claudication (CMS/HCC) 05/07/2019 DX:Claudi cation (HCC) Condyloma acuminata 05/07/2019 DX:Condyloma acuminata Coronary artery disease 05/07/2019 DX:Coron mimi artery disease; COMMENT: Old NSTEMI, stents x 3 Genital herpes 05/07/2019 DX:Genital herpe s Glaucoma 05/07/2019 DX:Glaucoma History of basal cell carcin bradley (BCC) of skin 05/07/2019 DX:History of basal cell car cinoma (BCC) of skin History of diverticulitis of colon 05/07/2019 DX:History of diverticulitis of colon; COMMENT: S/p sigmoid colectomy History of Lyme disease 05/07/2019 DX:Histo ry of Lyme disease History of stroke 05/07/2019 DX:History of stroke Hyperlipidemia 05/07/2019 DX:Hyperlipidemi a Hypertension 05/07/2019 DX:Hypertension Insomnia 05/07/2019 DX:Insomnia Lumbar radiculopathy 05/07/2019 DX:Lumbar r adiculopathy Myelinated nerve fibers of o ptic disc, right 05/07/2019 DX:Myelinated nerve fibers o f optic disc, right PAD (peripheral artery disea se) (CMS/HCC) 01/09/2019 DX:PAD (peripheral artery di sease) (HCC) Pituitary mass (CMS/HCC) 05/07/2019 DX:Pitu itary mass (HCC) Retinal artery plaque 05/07/2019 DX:Retinal artery plaque Type 1 diabetes mellitus wit h cataract ([facility]/HCC) 05/07/2019 DX:Type 1 diabetes mellitus with cataract (HCC) Type 1 diabetes mellitus wit h peripheral vascular disease ([facility]) 05/07/2019 DX:Type 1 diabet es mellitus with peripheral vascular disease (HCC) Family History Medical History Relation Name Comments Alcohol abuse Father throat cancer, [place], AAA Heart attack Maternal Grandfather Other: hyperlipidemia Mother BCC sk in Relation Name Status Comments Father Maternal Grandfather Mother Social History Tobacco Use Types Packs/Day Years Used Date Smoking Tobacco: Former Cigarettes Q uit: 01/12/2021 Smokeless Tobacco: Never Alcohol Use Standard Drinks/Week Comments No 0 (1 standard drink = 0.6 oz pur e alcohol) Sex and Gender Information Value Date Recorded Sex Assigned at Not on file Legal Sex Male 5:49 PM EST Gender Identity Not on file Sexual Orientation Not on file Obstetrics History Last Filed Vital Signs Vital Sign Reading Time Taken Comments Blood Pressure 162/71 02/15/2024 9:47 AM EDT R A rm Pulse 55 02/15/2024 9:47 AM EDT Temperature - - Respiratory Rate - - Oxygen Saturation - - Inhaled Oxygen Concentration - - Weight 65.3 kg (144 lb) 02/15/2024 9:47 AM EDT Height 172.7 cm (5' 8 ) 02/15/2024 9:47 AM EDT Body Mass Index 21.9 02/15/2024 9:47 AM EDT Plan of Treatment Upcoming Encounters Date Type Department Care Team (Late st Contact Info) Description 01/27/2025 1:00 PM EDT Appointment [facility] Ultrasound [address] [place] [id number] 02/26/2025 10:30 AM EDT Office Visit Vascular Surgery - [place] [address] [place] [id number] Jami Mujica MD [address] [place] [address] Health Maintenance Due Date Last Done Comments Diabetes: Annual GFR (Glomerular Filtration Rate) 1951 Diabetes: Annual Foot Exam 12/30/1961 Diabetes: Annual Retina Eye Exam 12/30/1961 RSV Immunization Patients 60 + Years Old (1 - Risk 60-74 years 1-dose series) 2011 Pneumococcal Vaccine: 50+ Years (2 of 2 - PPSV23) 04/05/2016 04/13/2017, 02/09/2016 Zoster Vaccines (2 of 3) 06/15/2016 04/20/2016 Cholesterol Screening (Lipid Panel) 10/01/2022 Colorectal Cancer Screening: Colonoscopy 10/01/2022 Depression Screening 10/01/2022 Falls Risk Assessment 10/01/2022 Hepatitis C Screening 10/01/2022 Medicare Annual Wellness Visit 10/01/2022 Social Influencers of Health Screening 10/01/2022 Diabetes: Annual Urine Albumin-Creatinine Ratio (uACR) 10/06/2022 Diabetes: Blood Sugar Contro l Test (HGBA1C) 10/06/2022 Hypertension/CHF/CAD Annual BMP Blood Test 10/06/2022 COVID-19 Vaccine (1 - 2023-2 5 season) 2024 Influenza Vaccine (#1) 2024 DTaP,Tdap,and Td Vaccines (3 - Td or Tdap) 04/16/2028 04/16/2018, 04/13/2017 HIB Vaccines Aged Out No longer eligi ble based on patient's age to complete this topic HPV Vaccines Aged Out No longer eligi ble based on patient's age to complete this topic Hepatitis A Vaccines Aged Out No long er eligible based on patient's age to complete this topic Hepatitis B Vaccines Aged Out No long er eligible based on patient's age to complete this topic IPV Vaccines Aged Out No longer eligi ble based on patient's age to complete this topic MMR Vaccines Aged Out No longer eligi ble based on patient's age to complete this topic Meningococcal ACWY Vaccine Aged Out N o longer eligible based on patient's age to complete this topic Meningococcal B Vacine Aged Out No lo nger eligible based on patient's age to complete this topic RSV Immunization Patients Under 20 months Aged Out No longer eligible b ased on patient's age to complete this topic Varicella Vaccines Aged Out No longer eligible based on patient's age to complete this topic Insurance MEDICARE [facility] Care Teams Airplane Engineer Relationship Specialty Start Date End Date Ryder Lou MD [address] PCP - General Internal Medicine 11/27/18
--- OUTSIDE RECORDS SUMMARY | 2024-12-06 13:18 | XMS_ITS ---
Author Organization [facility] Address [address] [place] [address] Care Team Providers Care Glove Machine Operator Name Role Phone Afia Cabrera Primary Care Provider Mikey Figueredo [phone] REASON FOR VISIT diarrhea PROBLEMS Problem Type ICD Code Onset Dates Problem Status W/U Status Risk SNOMED Code Notes Problem Diarrhea (R19.7) Active confirmed Diarrhea (71358109) Encounters Encounter Location Date Provider Diagnosis [facility] [address] [place] [phone] 06/04/2024 Mikey Montenegro Diarrhea R19.7 ASSESSMENTS Encounter Date Diagnosis Assessment Notes Treatment Notes Treatment Clinical Notes 06/04/2024 Diarrhea (ICD-10 - R19.7) PLAN OF TREATMENT Pending Test Test Name Order Date STOOL WBC 06/04/2024 C DIFFICILE RFLX PCR 06/04/2024 Giardia Ag Stool EIA 06/04/2024 Calprotectin, Fecal 06/04/2024 Ova and Parasite 06/04/2024 GI PANEL 06/04/2024
--- OUTSIDE RECORDS SUMMARY | 2024-12-06 13:18 | XMS_ITS | Encounter Summary ---
Author Organization [facility] Address [address] [facility] [address] [place] [address] Phone Care Team Providers Care Ring Conductor Name Role Phone Afia Cabrera MD Primary Care Provider [phone] Encounter Details Date Type Department Care Team (Late Contact Info) Description 02/25/2022 Documentation Only [facility] [address] [facility] [address] [place] [address] Chandrakant Lei MD [address] [facility] [address] [place] [address] Social History Tobacco Use Types Packs/Day [...] Visit [facility] [address] [place] [address] Chandrakant Lei MD [address] [facility] [address] [place] [address] documented as of this encounter Visit Diagnoses Not on filedocumented in this encounter Care Teams Ring Conductor Relationship Specialty Start Date End Date Afia Cabrera MD [address] [facility] [address] [place] [address] PCP - General Family Medicine 04/28/21 documented as of this encounter
--- OUTSIDE RECORDS SUMMARY | 2024-12-06 13:18 | XMS_ITS ---
Author Organization [facility] Address [address] [place] [address] Care Team Providers Care House Supervisor Name Role Phone Afia Cabrera Primary Care Provider Mikey Figueredo Unavailable [phone] ALLERGIES No Known Allergies REASON FOR VISIT Patient presents today for DIARRHEA MEDICATIONS Medication SIG (Take, Route, Frequency, Duration) Notes Start Date End Date Status amLODIPine Besylate 10 MG Oral for 28 Active Albuterol Active Tylenol PM Extra Strength Active Dorzolamide HCl-Timolol Mal Active Latanoprost Active Aspirin Active Lexapro Active Lipitor Active Metoprolol Tartrate Active NovoLOG Active Vitamin D Active Entecavir 0.5 MG 1 tablet on an empty stomach Orally Once a day for 10 day(s) Active Brilinta Active Atorvastatin Calcium 80 MG Oral for 28 Active Omeprazole 20 MG Oral for 28 A ctive Symbicort Not-Taking hydrALAZINE HCl 50 MG Oral for 28 Active SOCIAL HISTORY Tobacco Use: Social History Observation [...] W/U Status Risk SNOMED Code Notes Problem Irregular bowel habits (R19.8) Active confirmed Irregular bowel habits (824162196) VITAL SIGNS BMI 23.41 kg/m2 10/04/2024 Blood pressure systolic 00 mm Hg 10/04/20 24 Blood pressure diastolic 00 mm Hg 024 Height 68 in 10/04/2024 Weight 154 lbs 10/04/2024 Encounters Encounter Location Date Provider Diagnosis [facility] [address] [place] [address] 10/04/2024 Mikey Montenegro Diarrhea, unspecifie d type R19.7 and Irregular bowel habits R19.8 ASSESSMENTS Encounter Date Diagnosis Assessment Notes Treatment Notes Treatment Clinical Notes 10/04/2024 Diarrhea, unspecified type (ICD-10 - R19.7) 10/04/2024 Irregular bowel habits (ICD-10 - R19.8) Start 2 Metamucil fiber pills with a glass of water every morning and/or add a probiotic every day to try to help regulate the BM's 10/04/2024 Other Repeat colonosc opy in 2025 PLAN OF TREATMENT Treatment Notes Assessment Notes Irregular bowel habits Start 2 Metamucil fiber pills with a glass of water every morning and/or add a probiotic every day to try to help regulate the BM's Other Repeat colonoscopy i n 2025 Next Appt Details Follow Up: prn, Reason: Progress Notes * Examination Category Sub-Category Detail Notes General Examination GENERAL APPEARANCE: pleasant , well nourished, well developed, in no acute distress HEAD: EYES: sclera non-icteric EARS: NOSE: THROAT: NECK/THYROID: no cervical lymphade nopathy, neck supple HEART: S1, S2 normal CHEST: LUNGS: clear to auscultatio n bilaterally ABDOMEN: normal bowel sounds, no guarding or rigidity, no guarding or rigidity, no masses palpable, soft, nontender, nondistended NEUROLOGIC: alert and oriented SKIN: nonjaundiced, no spi kalia angiomata EXTREMITIES: no edema PERIPHERAL PULSES: BACK: BREASTS: MUSCULOSKELETAL: MALE GENITOURINARY: LYMPH NODES: RECTAL EXAM: FEMALE GENITOURINARY: ORAL CAVITY: mucosa moist
== END 2024-12-06 13:40 | disposition home or self-care (01) ==
PROVIDERS: PCP Family Medicine; Visit Provider Nurse Practitioner Adult Health
DX: E11.9 Type 2 diabetes mellitus without complications (principal)
CPT/HCPCS: 95251; 99215; G2211

== ENCOUNTER → 2024-12-06 12:54 | Outpatient (BNVA) | payer MEDICARE, BC, SELFPAY | PROVIDERS: PCP Family Medicine; Visit Provider Nurse Practitioner Adult Health | DX: E11.65 Type 2 diabetes mellitus with hyperglycemia (principal); E78.5 Hyperlipidemia, unspecified; I10 Essential (primary) hypertension; Z96.41 Presence of insulin pump (external) (internal); Z79.4 Long term (current) use of insulin | CPT/HCPCS: 82947; 99212 ==

== ENCOUNTER 2025-01-03 12:59 | Outpatient (AMB) | payer MEDICARE, BC, SELFPAY ==
[2025-01-03 13:02] VITALS: BP 144/70; PULSE 63; O2SAT 97
--- NOTE | 2025-01-03 13:02 | A.OFFVIS_ITS ---
Vital Signs 01/03/25 13:02 Weight 158 lb 11.725 oz BP 144/70 H Blood Pressure Location Rt brachial Position Sitting Pulse 63 Pulse Source Pulse Oximeter Pulse Oximetry (%) 97 Oxygen Delivery Method Room Air Intake Visit Reasons: Type II diabetes Intake Note: Patient presents today for a follow-up for Type 1 Diabetes Mellitus: Last Diabetic eye exam was on: 07/2024 Last Podiatry exam was on: Does not see a Employment Agency Manager Most recent HbA1c: 9.1%, 11/06/2024 Random Glucose- 271 mg/dL, Today Ice Skating Teacher Required: No Accompanied by: Self / Same As Patient Allergies No Known Allergies Allergy (Verified 11/04/24 12:13) HPI HPI Type II diabetes: Details: Patient is a 74-year-old male with a significant past medical history of hypertension, hyperlipidemia, uncontrolled type 2 diabetes, prior stroke, AAA, pituitary macroadenoma and CAD presenting today for a diabetic consultation. -Follows with Dr. Ramos for his pituitary macroadenoma Endo: Most recent A1C 12/2023 9.8%. He was recently seen by my colleague Kait. He had his regimen adjusted. Does report some noncompliance today. He had tried Ozempic but had diarrhea. Mounjaro 2.5 mg was prescribed but insurance denied. Was on metformin when he was first diagnosed. Was diagnosed approximately 2003 Current diabetes regimen: Tresiba 36 units NovoLog 16 units twice daily with meals (8 clicks) Can dose with CeQur 2 units between meals as needed -he states that there have been a few times that he has accidentally given himself too much NovoLog and he thinks that that has caused the rare hypoglycemia. -generally speaking, he states that a couple times a week he will miss his T resiba dosing and often he does not give himself the full dosage of the NovoLog. CGM: 62 % very high (above 250), 26 % high ?(181-250), 12 % in range ?(70-180], 0 % low (69-55), Less than 1 % ?very low (below 54) Denies retinopathy: Has eyes checked yearly, last eye exam: HAD cataract surgery, was seen 12/18/24 with f/u in 4 months Denies Neuropathy: no numbness, tingling or crampng. does not see lookback coordinator has family member trim nails He is off Lisinopril now per the recommendation of his Metal Casket Maker. He developed orthostatic hypotension in 2020 and was having low BP with LEE/ARB so these were stopped. Sees Dr. Lei who has discussed going to [facility] or [facility]. Has HLD, on Atorvastatin 80 mg PO daily and Zetia 10 mg PO daily. LDL 45 09/16 Has history of CAD with triple vessel PTCA He had a CVA in 2020. He is followed by vascular surgeon at [facility] for AAA and stenosis of the carotid arteries CV: Blood pressure today in the office is 144/70. He is currently on amlodipine 10 mg, hydralazine 50 mg and metoprolol 100 mg daily. Cholesterol is managed with atorvastatin 80 mg. He is on aspirin and Brilinta. [facility] Medical History Diabetes type 2 T1DM (type 1 diabetes mellitus) Wears dentures Chronic hepatitis B Paralysis of left upper extremity Ambulates with cane Glaucoma Diverticulosis Diabetes Bilateral cataracts Uncontrolled diabetes mellitus with hyperglycemia History of stent insertion of renal artery CAD (coronary artery disease) Carotid artery disease Pituitary adenoma Cerebral microvascular disease Multiple cerebral infarctions Left hemiparesis CKD (chronic kidney disease) stage 3, GFR 30-59 ml/min AAA (abdominal aortic aneurysm) Left renal artery stenosis Hypertensive urgency CKD (chronic kidney disease) stage 3, GFR 30-59 ml/min Peroneal neuropathy Hypertension Encounter for loop recorder check Stroke due to stenosis of right carotid artery Stroke Status post placement of implantable loop recorder CVA (cerebral vascular accident) (~2020) TIA (transient ischemic attack) (~2020) Vitamin D deficiency Pituitary macroadenoma HLD (hyperlipidemia) HTN (hypertension) Surgical History Cataract extraction status of left eye (12/16/24) History of partial colectomy (~1997) History of heart artery stent History of carotid endarterectomy Family History Father CVD (cardiovascular disease) AAA (abdominal aortic aneurysm) Mother No problems noted. Social History Household Members: Spouse and Family Housing: House Are you a primary rn primary care to a significant other at home: No Do you presently have visiting nurse or other home services: Yes (CLICKER OPERATOR 5 x week) Alcohol intake: never Comment: bed rest, unable to ambulate per md Patient Tobacco Use Status: Former Tobacco user Tobacco use type: Cigarette Years Smoked: 50+ Second Hand Smoke Exposure: No Advance Directives Date on File: 01/09/21 service: No Current occupational status: unemployed and retired Physical Exam Const Orientation/consciousness: patient oriented x3 HEENT Ears: hearing grossly normal bilaterally Neck Thyroid: Thyroid normal Lymphatic: no lymphadenopathy noted Resp Auscultation: clear to auscultation bilaterally Cardio Rate: regular rate Rhythm: regular rhythm Heart sounds: S1 normal heart sound present and S2 normal heart sound present Skin General skin exam: no rashes or lesions noted Neuro General: patient oriented x3, gait normal and no focal motor deficits Assessment & Plan Assessment & Plan (1) Uncontrolled diabetes mellitus with hyperglycemia: Code(s): E11.65 - Type 2 diabetes mellitus with hyperglycemia Category: Medical Plan: Increase Tresiba 40 units. Discussed the importance of compliance of his insulin regimen. Advised to take NovoLog as directed by provider. We reviewed signs and symptoms of hyper and hypoglycemia that would require emergent medical treatment. We did discuss that his CGM shows worsened blood sugars that his previous appointment. Discussed the importance of controlling this so he may start Farxiga. Short term follow up. Sooner if anything worsens or changes. (2) Hypertension: Code(s): I10 - Essential (primary) hypertension Category: Medical Qualifiers: Hypertension type: essential hypertension Qualified Code(s): I10 - Essential (primary) hypertension Plan: WNL. Continue current regimen Medications: Changed From insulin aspart U-100 (Novolog U-100 Insulin aspart) 6 units before breakfast, 16 units before lunch, 20 units before supper each click on cequr is 2 units 90 days 40 mL 3RF To insulin aspart U-100 (Novolog U-100 Insulin aspart) 16 units three times a day with meals each click on cequr is 2 units 90 days 40 mL 3RF From Tresiba FlexTouch U-200 (insulin degludec) 36 units (0.18 mL) subcut DAILY 90 days 18 mL 4RF NS E10.65 - Type 1 diabetes mellitus with hyperglycemia To Tresiba FlexTouch U-200 (insulin degludec) 40 units (0.2 mL) subcut DAILY 90 days 18 mL 4RF NS E10.65 - Type 1 diabetes mellitus with hyperglycemia Coding Level of Care Code Est Pt Level 4 (61067) Complex EM visit Add On G2211 Diagnoses Uncontrolled diabetes mellitus with hyperglycemia E11.65 Hypertension I10 Hypertension type: essential hypertension
[2025-01-03 13:09] LABS: Glucose, Whole Blood 271 mg/dL (60-115)
--- OUTSIDE RECORDS SUMMARY | 2025-01-03 14:32 | XMS_ITS | Patient Health Record ---
Author Organization [facility] Address [address] [place] [address] Care Team Providers Care Staff Analyst Name Role Phone Afia Cabrera Primary Care Provider Mikey Figueredo [phone] Allergies No Known Allergies Results Component Value Reference Range Notes Leukocytes Stool Qualitative Reviewed date:10/03/2024 04:38:18 PM Interpretation: Performing Lab:[address] [address] Notes/Report: Leukocytes Stool Qualitative NEGATIVE NEGATIVE Giardia Ag Stool EIA Reviewed date:10/09/2024 01:43:34 PM Interpretation: Performing Lab:[address] [address] Notes/Report: Giardia Ag Stool EIA SEE NOTE GIARDIA AG, EIA, STOOL Micro Number: [id number] Test Status: Final Specimen Source: Stool Specimen Quality: Adequate Giardia Result 1: Not Detected Reference Range: Not Detected NOTE: Due to intermittent shedding, one negative sample does not necessarily rule out the presence of a parasitic infection. THIS TEST WAS PERFORMED AT: [facility] [address] [place] [address] ALESSANDRO PATRICK MD Calprotectin, Fecal Reviewed date:10/11/2024 04:04:55 PM Interpretation: Performing Lab:[address] [address] Notes/Report: Calprotectin, Fecal 132 Reference Range: <50 [...] borderline values. THIS TEST WAS PERFORMED AT: [facility] [address] [place] [address] PEDRO TINOCO MD,PHD,DARYL Ova and Parasite Reviewed date:10/09/2024 01:43:13 PM Interpretation: Performing Lab:[address] [address] Notes/Report: Ova and Parasite SEE NOTE OVA AND PARASITES, CONC AND PERM SMEAR Micro Number: [id number] Test Status: Final Specimen Source: Stool Specimen [...] infection. For additional information, please refer to [email or web address].Code42/faq/JOA700 (This link is being provided for informational/ educational purposes only.) THIS TEST WAS PERFORMED AT: [facility] [address] [address] FARHAD HOGAN MD CDiff Gene PCR Reviewed date:10/03/2024 11:05:32 PM Interpretation: Performing Lab:[address] [address] Notes/Report: CDiff Gene PCR NEGATIVE Negative If C. difficile strongly suspected despite one negative test, a second test may be sent vs. empiric treatment for C. difficile infection. GI PANEL Reviewed date:10/04/2024 01:24:21 PM Interpretation: Performing Lab:[address] [address] Notes/Report: Campylobacter Not Detected Not Detect. Plesiomonas [...] is performed by Multiplexed PCR, utilizing the [employer] Array. Reason For Referral No Information Medications Medication SIG (Take, Route, Frequency, Duration) Notes [...] Active Dorzolamide HCl-Timolol Mal Active Latanoprost Active Immunizations Vaccine Route Administration Date Status Comme nts Influenza Unknown 06/23/2018 Administered Influenza Unknown 07/23/2019 Administered Social History Tobacco Use: Social History Observation Description Date Details (start date - stop date) Former Smoker NA - NA Tobacco Use/Smoking Question Answer Notes Patient is a former smoker How long has it been since you last smoked? 1-5 years Section Notes: Smoker 1 ppd; no sig EtOH Smoker 1 ppd; no sig EtOH Smoker 1 ppd; no sig EtOH Nonsmoker since 2020; no sig EtOH Problems Problem Type SNOMED Code ICD Code Onset Dates Problem Status W/U Status Risk Notes Problem 545446295 Encounter for screening for malignant neoplasm of colon (Z12.11) Active confirmed Problem Diarrhea (44473064) Diarrhea (R19.7) Active confirmed Problem 06410417 Weight loss (R63.4) Active confirmed Problem Screening for malignant neoplasm of rectum (844986133) Encounter for screening for malignant neoplasm of rectum (Z12.12) Active confirmed Problem 87430818 Preprocedural examination (Z01.818) Active confirmed Problem Irregular bowel habits (693270269) Irregular bowel habits (R19.8) Active confirmed Problem 66555387 Diarrhea, unspecified type (R19.7) Active confirmed Problem 39735671 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7 Assessments Encounter Date Diagnosis (ICD Code) Assessment Notes Treatment Notes Treatment Clinical Notes Section Notes 10/04/2024 Irregular bowel habits (ICD-10 - R19.8) Start 2 Metamucil fiber pills with a glass of water every morning and/or add a probiotic every day to try to help regulate the BM's Overall, Chandler appears reasonably well at this time and is not having any new or worrisome GI complaints. We did review that his residual irregular bowel movements are Most likely as a result of his previous GI infection with Giardia. 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 I don't think he needs any further workup in that regard. I did recommend a trial of some Metamucil and possibly a probiotic to see if that might help improve his bowel movement irregularity. I don't think he needs a colonoscopy at this time but did remind him that he should have that done 2025 for followup screening given his negative exam in 2016. I did advise him to continue to use Pepto-Bismol as needed for diarrhea. I did advise him to let me know if the diarrhea becomes more persistent and problematic. I did advise him to continue followup for the hepatitis B with Dr. Barraza and to be sure to get a yearly ultrasound and lab work with her. If things remained well I will plan to see Chandler 2025 for his next colonoscopy. I did advise him to contact me prior to that if he has any problems or questions I can be of assistance with. Chandler was comfortable with this plan. Thank you again for allowing me to participate in Chandler's care. I shall continue to keep you advised of his progress. 10/04/2024 Diarrhea, unspecified type (ICD-10 - R19.7) Overall, Chandler appears reasonably well at this time and is not having any new or worrisome GI complaints. We did review that his residual irregular bowel movements are Most likely as a result of his previous GI infection with Giardia. 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 I don't think he needs any further workup in that regard. I did recommend a trial of some Metamucil and possibly a probiotic to see if that might help improve his bowel movement irregularity. I don't think he needs a colonoscopy at this time but did remind him that he should have that done 2025 for followup screening given his negative exam in 2015. I did advise him to continue to use Pepto-Bismol as needed for diarrhea. I did advise him to let me know if the diarrhea becomes more persistent and problematic. I did advise him to continue followup for the hepatitis B with Dr. Barraza and to be sure to get a yearly ultrasound and lab work with her. If things remained well I will plan to see Chandler 2025 for his next colonoscopy. I did advise him to contact me prior to that if he has any problems or questions I can be of assistance with. Chandler was comfortable with this plan. Thank you again for allowing me to participate in Chandler's care. I shall continue to keep you advised of his progress. 06/04/2024 Diarrhea (ICD-10 - R19.7) 10/04/2024 Other Repeat colonoscopy in 2025 Overall, Chandler appears reasonably well at this time and is not having any new or worrisome GI complaints. We did review that his residual irregular bowel movements are Most likely as a result of his previous GI infection with Giardia. 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 I don't think he needs any further workup in that regard. I did recommend a trial of some Metamucil and possibly a probiotic to see if that might help improve his bowel movement irregularity. I don't think he needs a colonoscopy at this time but did remind him that he should have that done 2025 for followup screening given his negative exam in 2016. I did advise him to continue to use Pepto-Bismol as needed for diarrhea. I did advise him to let me know if the diarrhea becomes more persistent and problematic. I did advise him to continue followup for the hepatitis B with Dr. Barraza and to be sure to get a yearly ultrasound and lab work with her. If things remained well I will plan to see Chandler 2025 for his next colonoscopy. I did advise him to contact me prior to that if he has any problems or questions I can be of assistance with. Chandler was comfortable with this plan. Thank you again for allowing me to participate in Chandler's care. I shall continue to keep you advised of his progress. Plan Of Treatment Pending Test Test Name Order Date CLOSTRIDIUM [...] Date MEDICARE OF [place] [address] [place] [address] [id number] AYSHA SHAFFER Self - patient is the insured [facility] [address] [place], [place] [phone] [id number] EDMUND AYSHA Self - patient is the insured Medical (General) History Medical History History ICD Code Colonoscopy 06-13-2004, [...]
--- OUTSIDE RECORDS SUMMARY | 2025-01-03 14:32 | XMS_ITS | Clinical Summary ---
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
--- OUTSIDE RECORDS SUMMARY | 2025-01-03 14:32 | XMS_ITS ---
Author Organization [facility] Address [address] [place] [address] Care Team Providers Care Education Dean Name Role Phone Afia Cabrera Primary Care Provider Mikey Figueredo [phone] REASON FOR VISIT diarrhea Problems Problem Type SNOMED Code ICD Code Onset Dates Problem Status W/U Status Risk Notes Problem Diarrhea (42305793) Diarrhea (R19.7) Active confirmed Encounters Encounter Location Date Provider Diagnosis [facility] [address] [place] [address] 06/04/2024 Mikey Montenegro Diarrhea R19.7 Assessments Encounter Date Diagnosis (ICD Code) Assessment Notes Treatment Notes Treatment Clinical Notes Section Notes 06/04/2024 Diarrhea (ICD-10 - R19.7) Plan Of Treatment Pending Test Test Name Order Date STOOL WBC 06/04/2024 C DIFFICILE RFLX PCR 06/04/2024 Giardia Ag Stool EIA 06/04/2024 Calprotectin, Fecal 06/04/2024 Ova and Parasite 06/04/2024 GI PANEL 06/04/2024 Progress Notes * AYSHA [birth year]DOB:[birth year] (73 yo M)Acc No.[id number]:06/04/2024 Patient:?AYSHA SHAFFER :1950???Age:73 Y???Sex:Male Address:[address] [place] [id number] Subjective: * Chief Complaints: * ???Diarrhea * Medical History:? * Surgical History:? * Hospitalization/Major Diagno stic Procedure:? * Medications:? Objective: Assessment: * Assessment: 1.?Diarrhea - R19.7 (Primary )? Plan: * Treatment: * Procedure Codes:? * true * Date:? Generated for Luisana shelley/Gutierrez/Marek on:?01/03/2025 02:32 PM EDT
--- OUTSIDE RECORDS SUMMARY | 2025-01-03 14:32 | XMS_ITS | Encounter Summary ---
Author Organization [facility] Address [address] [facility] [facility] [address] [place] [address] Phone Care Team Providers Care Analysis Evaluator Name Role Phone Afia Cabrera MD Primary Care Provider Encounter Details Date Type Department Care Team (Late Contact Info) Description 12/20/2021 Documentation Only [facility] [address] [facility] [place] [address] Chandrakant Lei MD [address] [address] Social History Tobacco Use Types [...] Visit [facility] [address] [place] [address] Chandrakant Lei MD [address] [address] documented as of this encounter Visit Diagnoses Not on filedocumented in this encounter Care Teams Analysis Evaluator Relationship Specialty Start Date End Date Afia Cabrera MD [address] [address] PCP - General Family Medicine 04/28/21 documented as of this encounter
--- OUTSIDE RECORDS SUMMARY | 2025-01-03 14:32 | XMS_ITS | Encounter Summary ---
Author Organization [facility] Address [address] [facility] [address] [place] [address] Phone Care Team Providers Care Road Boss Name Role Phone Afia Cabrera MD Primary Care Provider [phone] Encounter Details Date Type Department Care Team (Late Contact Info) Description 03/15/2021 Orders Only [facility] [address] [place] [place] [address] Chandrakant Lei MD [address] [facility] [address] [place] [address] Chronic type B viral hepatitis [...] Office Visit [facility] [address] [place] [address] Chandrakant Lei MD [address] [facility] [address] [place] [address] documented as of this encounter [...] 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
--- OUTSIDE RECORDS SUMMARY | 2025-01-03 14:32 | XMS_ITS | Data Portability ---
Author Organization JENIFER GREENBERG MD [facility], Main Office Address [address] [place] [id number] Assessment No assessment recorded. Plan of Treatment Reminders Order Date Submit Date Provider Last Modified By Organization Details Last Modified Time Details Appointments B20 FOLLOW UP 2024 12:00P M Marie Okeefe MD Not available Not available Not available Lab creatinin e w/ estimated GFR (eGFR), serum or plasma 2024 025 [facility], [address], [facility], [place], [address], 2024 11:14:54 hepatitis B DNA, quantitat chandrakant, serum 2024 025 [facility], [address], [place] , [place], [address], 2024 11:14:54 unlisted lab - alb+ALP+A LT+AST+tb garcía+PT 2024 025 [facility], [address], [address], [place], [address], 2024 11:14:55 unlisted lab - HBV fibrosure 2024 025 [facility], [address], [place], [address], 2024 11:14:55 creatinin e w/ estimated GFR (eGFR), serum or plasma 2023 024 [facility], [address], [place], [address], 07/04/2024 10:07:04 hepatitis C virus Ab, serum 2023 024 [email or web address] [facility], [address], [address], [place], [address], 07/10/2024 11:39:02 hepatitis B DNA, quantitat chandrakant, serum 2023 024 [email or web address] [facility], [address], [address], [place], [address], 07/10/2024 11:39:02 unlisted lab - alb+ALP+A LT+AST+tb garcía+PT 2023 024 [facility], [address], [address], [place], [place], [address], 07/04/2024 10:07:03 CBC w/ diff 2022 023 [email or web address] [facility], [address], [address], [place], [place], [address], 09/26/2023 16:30:38 electroly george panel, blood 2022 023 [email or web address] [facility], [address], [address], [place], [place], [address], 09/26/2023 16:30:38 ALT (alanine aminotran sferase), serum or plasma 2022 023 [facility], [address], [address], [place], [address], 08/23/2023 21:34:23 AST/SGOT (aspartat e aminotran sferase), serum or plasma 2022 023 [facility], [address], [address], [place], [place], [address], 08/23/2023 21:34:24 creatinin e w/ estimated GFR (eGFR), serum or plasma 2022 023 [email or web address] [facility], [address], [address], [place], [address], 09/26/2023 16:30:39 hepatitis C virus Ab, serum 2022 023 [facility], [address], [address], [place], [address], 08/23/2023 23:21:23 RPR (rapid plasma reagin), serum 2022 023 [facility], [address], [address], [place], [address], 09/26/2023 16:30:39 hepatitis B DNA, quantitat chandrakant, serum 2022 023 [facility], [address], [address], [place], [address], 08/29/2023 15:10:11 unlisted lab - shelton fibrosure 2022 023 [facility], [address], [address], [place], [address], 08/27/2023 18:06:18 Referral None recorded. Procedures None recorded. Surgeries None recorded. Imaging US, abdomen 2024 025 [facility] [address] [place] [address] [place], [address], 2024 11:21:21 Medication Orders entecavir 0.5 mg tablet 2024 025 [facility], [facility], [place], [address], 2024 11:14:54 entecavir 0.5 mg tablet 2023 024 [facility], [place], [address], 07/03/2024 12:35:02 entecavir 0.5 mg tablet 2022 023 [facility], [place], [address], 08/23/2023 14:44:06 Patient TargetsNo targets recorded. Patient InstructionsNo instructions recorded. Reason for Referral None Reported. Results Created Date Observation Date Name Description Value Unit Range Abnormal Flag Note LastModifiedBy Organization Detail LastModifiedTime 08/23/2008/23/2023 COMPL ETE CBC WITH DIFF WBC 7.8 K/mm3 (4.0-1 1.0) Not Available [facility] (Centralized Electronic Ordering - All Locations) Patient Can Go To The Location Of Their Choice, [address] 08/23/2023 21:06:07 08/23/2008/23/2023 COMPL ETE CBC WITH DIFF RBC 5.03 M/mm3 (4.70- 6.10) Not Available [facility] (Centralized Electronic Ordering - All Locations) Patient Can Go To The Location Of Their Choice, [id number] 08/23/2023 21:06:07 08/23/2008/23/2023 COMPL ETE CBC WITH DIFF HGB 14.9 gm/dL (13.7- 17.1) Not Available [facility] (Centralized Electronic Ordering - All Locations) Patient Can Go To The Location Of Their Choice, [address] 08/23/2023 21:06:07 08/23/2008/23/2023 COMPL ETE CBC WITH DIFF HCT 45.5 % (40.5- 50.0) Not Available [facility] (Centralized Electronic Ordering - All Locations) Patient Can Go To The Location Of Their Choice, [address] 08/23/2023 21:06:07 08/23/2008/23/2023 COMPL ETE CBC WITH DIFF MCV 90.5 fL (80.0- 94.0) Not Available [facility] (Centralized Electronic Ordering - All Locations) Patient Can Go To The Location Of Their Choice, 08/23/2023 21:06:07 08/23/2008/23/2023 COMPL ETE CBC WITH DIFF MCH 29.6 pg (27.0- 34.0) Not Available [facility] (Centralized Electronic Ordering - All Locations) Patient Can Go To The Location Of Their Choice, 08/23/2023 21:06:07 08/23/2008/23/2023 COMPL ETE CBC WITH DIFF MCHC 32.7 g/dL (33.0- 37.0) low Not Available [facility] (Centralized Electronic Ordering - All Locations) Patient Can Go To The Location Of Their Choice, 08/23/2023 21:06:07 08/23/2008/23/2023 COMPL ETE CBC WITH DIFF plt 286 K/mm3 (150-4 60) Not Available [facility] (Centralized Electronic Ordering - All Locations) Patient Can Go To The Location Of Their Choice, 08/23/2023 21:06:07 08/23/2008/23/2023 COMPL ETE CBC WITH DIFF RDW-SD 44.6 fL (<47.0 ) Not Available [facility] (Centralized Electronic Ordering - All Locations) Patient Can Go To The Location Of Their Choice, 08/23/2023 21:06:07 08/23/2008/23/2023 COMPL ETE CBC WITH DIFF MPV 8.9 fL (9.4-1 2.4) low Not Available [facility] (Centralized Electronic Ordering - All Locations) Patient Can Go To The Location Of Their Choice, 08/23/2023 21:06:07 08/23/2008/23/2023 COMPL ETE CBC WITH DIFF automated NRBC 0.0 #/100 _WBC' s Not Available [facility] (Centralized Electronic Ordering - All Locations) Patient Can Go To The Location Of Their Choice, 08/23/2023 21:06:07 08/23/2008/23/2023 COMPL ETE CBC WITH DIFF abs. NRBC 0.0 K/mm3 Not Available [facility] (Centralized Electronic Ordering - All Locations) Patient Can Go To The Location Of Their Choice, 08/23/2023 21:06:07 08/23/2008/23/2023 COMPL ETE CBC WITH DIFF neut # 5.5 K/mm3 (1.3-7 .0) Not Available [facility] (Centralized Electronic Ordering - All Locations) Patient Can Go To The Location Of Their Choice, [facility] 08/23/2023 21:06:07 08/23/2008/23/2023 COMPL ETE CBC WITH DIFF lymph # 1.3 K/mm3 (0.8-3 .1) Not Available [facility] (Centralized Electronic Ordering - All Locations) Patient Can Go To The Location Of Their Choice, [facility] 08/23/2023 21:06:07 08/23/2008/23/2023 COMPL ETE CBC WITH DIFF mono# 0.7 K/mm3 (0.4-1 .3) Not Available [facility] (Centralized Electronic Ordering - All Locations) Patient Can Go To The Location Of Their Choice, [facility] 08/23/2023 21:06:07 08/23/2008/23/2023 COMPL ETE CBC WITH DIFF eo # 0.2 K/mm3 (0.0-0 .4) Not Available [facility] (Centralized Electronic Ordering - All Locations) Patient Can Go To The Location Of Their Choice, [facility] 08/23/2023 21:06:07 08/23/2008/23/2023 COMPL ETE CBC WITH DIFF baso # 0.1 K/mm3 (0.0-0 .1) Not Available [facility] (Centralized Electronic Ordering - All Locations) Patient Can Go To The Location Of Their Choice, [id number] 08/23/2023 21:06:07 08/23/2008/23/2023 COMPL ETE CBC WITH DIFF abs. imm gran 0.0 K/mm3 Not Available [facility] (Central[facility] Ordering - All Locations) Patient Can Go To The Location Of Their Choice, [id number] 08/23/2023 21:06:07 08/23/2008/23/2023 COMPL ETE CBC WITH DIFF neut 70.6 % (44-76 ) Not Available [facility] (Centralized Electronic Ordering - All Locations) Patient Can Go To The Location Of Their Choice, [facility] 08/23/2023 21:06:07 08/23/2008/23/2023 COMPL ETE CBC WITH DIFF lymph 16.6 % (15-43 ) Not Available [facility] (Centralized Electronic Ordering - All Locations) Patient Can Go To The Location Of Their Choice, 08/23/2023 21:06:07 08/23/20 23 08/23/2023 COMPL ETE CBC WITH DIFF monocyte 9.3 % (4.5-1 0.5) Not Available [facility] (Centralized Electronic Ordering - All Locations) Patient Can Go To The Location Of Their Choice, 08/23/2023 21:06:07 08/23/20 23 08/23/2023 COMPL ETE CBC WITH DIFF eo 2.2 % (0-6) Not Available [facility] (Centralized Electronic Ordering - All Locations) Patient Can Go To The Location Of Their Choice, [id number] 08/23/2023 21:06:07 08/23/20 23 08/23/2023 COMPL ETE CBC WITH DIFF baso 0.9 % (0-2) Not Available [facility] (Centralized Electronic Ordering - All Locations) Patient Can Go To The Location Of Their Choice, [address] 08/23/2023 21:06:07 08/23/20 23 08/23/2023 COMPL ETE CBC WITH DIFF imm gran 0.4 % Not Available [facility] (Centralized Electronic Ordering - All Locations) Patient Can Go To The Location Of Their Choice, [address] 08/23/2023 21:06:07 08/23/20 23 08/23/2023 ALT ALT 24 U/L (0-41) Not Available [facility] (Centralized Electronic Ordering - All Locations) Patient Can Go To The Location Of Their Choice, [id number] 08/23/2023 21:34:22 08/23/20 23 08/23/2023 AST AST 19 U/L (0-40) Not Available [facility] (Centralized Electronic Ordering - All Locations) Patient Can Go To The Location Of Their Choice, 08/23/2023 21:34:24 08/23/20 23 08/23/2023 CREAT ININE creatinine 1.6 mg/dL (0.7-1 .2) high Not Available [facility] (Centralized Electronic Ordering - All Locations) Patient Can Go To The Location Of Their Choice, [id number] 08/23/2023 21:34:25 08/23/2008/23/2023 CREAT ININE estimated GFR creatinine 45 mL/mi n/1.7 3_M2 Creat inine based estim ated bethme hermila rashditr ation (eGFR ) in adult s is calcu lated using the Natio nal Kidne y Found ation recom dudley d 2020 CKD-E PI equat ion. Estim ates GFR from serum creat inine , age and sex. Not Available [facility] (Centralized Electronic Ordering - All Locations) Patient Can Go To The Location Of Their Choice, 08/23/2023 21:34:25 08/23/2008/23/2023 ELECT ROLYT ES sodium 137 mmol/ L (133-1 45) Not Available [facility] (Centralized Electronic Ordering - All Locations) Patient Can Go To The Location Of Their Choice, 08/23/2023 21:34:25 08/23/2008/23/2023 ELECT ROLYT ES potassium 4.2 mmol/ L (3.6-5 .2) Not Available [facility] (Centralized Electronic Ordering - All Locations) Patient Can Go To The Location Of Their Choice, 08/23/2023 21:34:25 08/23/2008/23/2023 ELECT ROLYT ES chloride 98 mmol/ L (98-10 7) Not Available [facility] (Centralized Electronic Ordering - All Locations) Patient Can Go To The Location Of Their Choice, 08/23/2023 21:34:25 08/23/2008/23/2023 ELECT ROLYT ES bicarbonate 28 mmol/ L (22-29 ) Not Available [facility] (Centralized Electronic Ordering - All Locations) Patient Can Go To The Location Of Their Choice, 08/23/2023 21:34:25 08/23/2008/23/2023 ELECT ROLYT ES anion gap 11 (4-17) Not Available [facility] (Centralized Electronic Ordering - All Locations) Patient Can Go To The Location Of Their Choice, 08/23/2023 21:34:25 08/23/2008/23/2023 ANTI- HEPAT ITIS C anti-hepatit is C (neg) normal NEGAT CHANDRAKANT Refer ence range : Negat chandrakant This test was perfo rmed on the Abbot t Archi tect immun oassa y syste m. Not Available [facility] (Centralized Electronic Ordering - All Locations) Patient Can Go To The Location Of Their Choice, 08/23/2023 23:21:23 08/23/20 23 08/23/2023 SYPHI LIS TESTI NG syphilis screen by celestino (neg) normal NEGAT CHANDRAKANT Refer ence range : Negat chandrakant This test was perfo rmed on the Abbot t Archi tect immun oassa y syste m. Not Available [facility] (Centralized Electronic Ordering - All Locations) Patient Can Go To The Location Of Their Choice, 08/23/2023 23:21:24 08/23/20 23 08/23/2023 SYPHI LIS TESTI NG RPR titer result NOT INDICA BENJAMIN Not Available [facility] (Centralized Electronic Ordering - All Locations) Patient Can Go To The Location Of Their Choice, 08/23/2023 23:21:24 08/23/20 23 08/23/2023 SYPHI LIS TESTI NG tppa result NOT INDICA BENJAMIN Not Available [facility] (Centralized Electronic Ordering - All Locations) Patient Can Go To The Location Of Their Choice, 08/23/2023 23:21:24 08/23/20 23 08/23/2023 SYPHI LIS TESTI NG syphilis interpretati on Indic ative of the absen ce of infec tion with Trepo nemal palli dum. Test may be negat chandrakant in cases of incub ating or early prima ry syphi lis. Consi kalia repea t testi ng in sever al weeks if clini chivo suspi cion is high. Not Available [facility] (Centralized Electronic Ordering - All Locations) Patient Can Go To The Location Of Their Choice, 08/23/2023 23:21:24 08/23/20 23 08/27/2023 SHELTON FIBRO SURE fibrosis score 0.64 high Refer ence range : 0.00 to 0.21 Not Available [facility] (Centralized Electronic Ordering - All Locations) Patient Can Go To The Location Of Their Choice, 08/27/2023 18:06:18 08/23/20 23 08/27/2023 SHELTON FIBRO SURE fibrosis stage Commen t (NOTE ) F3-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 Not Available [facility] (Centralized Electronic Ordering - All Locations) Patient Can Go To The Location Of Their Choice, 08/27/2023 18:06:18 08/23/2008/27/2023 SHELTON FIBRO SURE steatosis score 0.64 high Refer ence range : 0.00 to 0.40 Not Available [facility] (Centralized Electronic Ordering - All Locations) Patient Can Go To The Location Of Their Choice, 08/27/2023 18:06:18 08/23/2008/27/2023 SHELTON FIBRO SURE steatosis grade Commen t (NOTE ) S2 - S3 Moder ate to Sever e Steat osis (Clin icall y Signi fican t) (34-1 00%) Not Available [facility] (Centralized Electronic Ordering - All Locations) Patient Can Go To The Location Of Their Choice, 08/27/2023 18:06:18 08/23/2008/27/2023 SHELTON FIBRO SURE shelton score 0.66 high Refer ence range : 0.00 to 0.25 Not Available [facility] (Centralized Electronic Ordering - All Locations) Patient Can Go To The Location Of Their Choice, 08/27/2023 18:06:18 08/23/2008/27/2023 SHELTON FIBRO SURE shelton grade Commen t (NOTE ) N2 - Moder ate SHELTON Not Available [facility] (Centralized Electronic Ordering - All Locations) Patient Can Go To The Location Of Their Choice, 08/27/2023 18:06:18 08/23/2008/27/2023 SHELTON FIBRO SURE alpha 2 macroglobuli ns qn(fib) 415 high Refer ence range : 110 to 276 Unit: mg/dL Not Available [facility] (Centralized Electronic Ordering - All Locations) Patient Can Go To The Location Of Their Choice, 08/27/2023 18:06:18 08/23/2008/27/2023 SHELTON FIBRO SURE haptoglobin( fibrosure) 198 Refer ence range : 34 to 355 Unit: mg/dL Not Available [facility] (Centralized Electronic Ordering - All Locations) Patient Can Go To The Location Of Their Choice, 08/27/2023 18:06:18 08/23/2008/27/2023 SHELTON FIBRO SURE apolipoprote in(fibrosure ) 110 Refer ence range : 101 to 178 Unit: mg/dL Not Available [facility] (Centralized Electronic Ordering - All Locations) Patient Can Go To The Location Of Their Choice, 08/27/2023 18:06:18 08/23/2008/27/2023 SHELTON FIBRO SURE bilirubin,to ella(fibrosur e) 0.4 Refer ence range : 0.0 to 1.2 Unit: mg/dL Not Available [facility] ([facility]ized Electronic Ordering - All Locations) Patient Can Go To The Location Of Their Choice, 08/27/2023 18:06:18 08/23/2008/27/2023 SHELTON FIBRO SURE GGT(fibrosur e) 19 Refer ence range : 0 to 65 Unit: IU/L Not Available [facility] (Centralized Electronic Ordering - All Locations) Patient Can Go To The Location Of Their Choice, 08/27/2023 18:06:18 08/23/2008/27/2023 SHELTON FIBRO SURE ALT(SGPT)p5p (fibrosure) 28 Refer ence range : 0 to 55 Unit: IU/L Not Available [facility] (Centralized Electronic Ordering - All Locations) Patient Can Go To The Location Of Their Choice, 08/27/2023 18:06:18 08/23/2008/27/2023 SHELTON FIBRO SURE AST (SGOT) p5p 20 Refer ence range : 0 to 40 Unit: IU/L Not Available [facility] (Centralized Electronic Ordering - All Locations) Patient Can Go To The Location Of Their Choice, 08/27/2023 18:06:18 08/23/2008/27/2023 SHELTON FIBRO SURE cholesterol total 116 Refer ence range : 100 to 199 Unit: mg/dL Not Available [facility] (Centralized Electronic Ordering - All Locations) Patient Can Go To The Location Of Their Choice, 08/27/2023 18:06:18 08/23/2008/27/2023 SHELTON FIBRO SURE glucose serum 216 high Refer ence range : 70 to 99 Unit: mg/dL Not Available [facility] ([facility]ized Electronic Ordering - All Locations) Patient Can Go To The Location Of Their Choice, 08/27/2023 18:06:18 11/01/20 23 08/27/2023 SHELTON FIBRO SURE triglyceride s 124 Refer ence range : 0 to 149 Unit: mg/dL Not Available [facility] ([facility]ized Electronic Ordering - All Locations) Patient Can Go To The Location Of Their Choice, [id number] 08/27/2023 18:06:18 08/23/20 23 08/27/2023 SHELTON FIBRO SURE interpretati ons Commen t (NOTE ) Quant itati ve resul ts of 10 bioch emica ls in combi natio n with age and gende r, are diana zed using a compu tatio nal algor ithm to provi de a quant itati ve surro gate marke r (0.0- 1.0) of liver fibro sis (Independence vir F0-F4 ), hepat ic steat osis [...] had signi fican t NAFLD fibro sis (Independence vir F2-F4 ) and 11% had cirrh [...] y of 71%.[ 3] Not Available [facility] (Centralized Electronic Ordering - All Locations) Patient Can Go To The Location Of Their Choice, 08/27/2023 18:06:18 08/23/2008/27/2023 SHELTON FIBRO SURE fibrosis [...] F4 - Cirrh osis Not Available [facility] (Centralized Electronic Ordering - All Locations) Patient Can Go To The Location Of Their Choice, 08/27/2023 18:06:18 08/23/2008/27/2023 SHELTON FIBRO SURE steatosis grading Commen t (NOTE ) < EQ 0.40 EQ S0 - No Steat osis (<5%) 0.40 - 0.55 EQ S1 - Mild Steat osis (but Clini reji Signi fican t) (5-33 %) >0.55 EQ S2S3- Moder ate to Sever e Steat osis (Clin icall y Signi fican t) (34-1 00%) Not Available [facility] (Centralized Electronic Ordering - All Locations) Patient Can Go To The Location Of Their Choice, 08/27/2023 18:06:18 08/23/2008/27/2023 SHELTON FIBRO SURE shelton scoring Commen t (NOTE ) < EQ 0.25 EQ N0 - No SHELTON 0.25 - 0.50 EQ N1 - Mild SHELTON 0.50 - 0.75 EQ N2 - Moder ate SHELTON >0.75 EQ N3 - Sever e SHELTON Not Available [facility] (Centralized Electronic Ordering - All Locations) Patient Can Go To The Location Of Their Choice, [id number] 08/27/2023 18:06:18 08/23/2008/27/2023 SHELTON FIBRO SURE limitations Commen t (NOTE [...] s of fibro sis. Not Available [facility] ([facility]ized [facility] Ordering - All Locations) Patient Can Go To The Location Of Their Choice, [id number] 08/27/2023 18:06:18 08/23/20 23 08/27/2023 SHELTON FIBRO SURE comment Commen t (NOTE ) This test was devel oped and its perfo rmanc e gin cteri stics deter mined by [employer]. It has not been clear ed or appro demario by the Food and Drug Admin istra tion. For quest ions regjoe arzola this repor t pleas e conta ct custo marc servi ce at [phone]. Refer ences : 1. Jennifer mejia V. et al. Diagn ostic Value of Bioch [...] 2017; 30:56 9-577 . Not Available [facility] (Centralized Electronic Ordering - All Locations) Patient Can Go To The Location Of Their Choice, [id number] 08/27/2023 18:06:18 08/23/20 23 08/27/2023 SHELTON FIBRO SURE methodology Commen t (NOTE ) The diana george teste d are perfo rmed by [employer] Speci fic metho ds. Not inten ded for use with other diagn ostic consi derat ions. [facility] , [facility] , [place] [address] Not Available [facility] (Centralized Electronic Ordering - All Locations) Patient Can Go To The Location Of Their Choice, [address] 08/27/2023 18:06:18 08/23/20 23 08/29/2023 HEPAT ITIS B QUANT ITATI VE, PLASM A hepatitis B quantitative , plas IU/mL Not detec benjamin HBV DNA was not detec benjamin in the speci men. Resul t repor benjamin to the [facility]. Testi ng perfo rmed by real time PCR utili zing SHANNON [employer] HBV test. To preve nt error s [...] be consi dered . Not Available [facility] ([facility] Ordering - All Locations) Patient Can Go To The Location Of Their Choice, [id number] 08/29/2023 15:10:11 08/23/20 23 08/29/2023 HEPAT ITIS B QUANT ITATI VE, PLASM A hbvlog LOG value not calcul ated logiu /mL Not Available [facility] ([facility] Ordering - All Locations) Patient Can Go To The Location Of Their Choice, [id number] 08/29/2023 15:10:11 07/03/20 24 07/04/2024 ALB+A LP+AL T+AST +TBIL I+PT albumin 4.3 g/dL 3.8-4. 8 normal Not Available [facility] ([facility]) [address] [facility], [place], [address], 07/04/2024 10:07:03 07/03/20 24 07/04/2024 ALB+A LP+AL T+AST +TBIL I+PT bilirubin, total 0.4 mg/dL 0.0-1. 2 normal Not Available [facility] ([facility]) [address] [place], [address], 07/04/2024 10:07:03 07/03/20 24 07/04/2024 ALB+A LP+AL T+AST +TBIL I+PT alkaline phosphatase 96 IU/L 44-121 normal Not Available [facility]) [address] [place], [address], 07/04/2024 10:07:03 07/03/20 24 07/04/2024 ALB+A LP+AL T+AST +TBIL I+PT AST (SGOT) 20 IU/L 0-40 normal Not Available [facility] ([facility]) [address] [facility], [place], [address], 07/04/2024 10:07:03 07/03/20 24 07/04/2024 ALB+A LP+AL T+AST +TBIL I+PT ALT (SGPT) 16 IU/L 0-44 normal Not Available [facility] ([facility]) [address] [place], [address], 07/04/2024 10:07:03 07/03/20 24 07/04/2024 ALB+A LP+AL T+AST +TBIL I+PT INR 1.0 [...] range 2.5 - 3.5 Not Available [facility] ([facility]) [address] [facility], [place], [address], 07/04/2024 10:07:03 07/03/2007/04/2024 ALB+A LP+AL T+AST +TBIL I+PT prothrombin time 11.3 sec 9.1-12 .0 normal Not Available [facility] ([facility]) [address] [place], [address], 07/04/2024 10:07:03 07/03/20 24 07/04/2024 GLOM FILT RATE, ESTIM ATED creatinine 1.72 mg/dL 0.76-1 .27 above high normal Not Available [facility] ([facility]) [address] [facility], [place], [address], 07/04/2024 10:07:04 07/03/20 24 07/04/2024 GLOM FILT RATE, ESTIM ATED eGFR 42 mL/mi n/1.7 3 >59 below low normal Not Available [facility] ([facility]) [address] [facility], [place], [address], 07/04/2024 10:07:04 07/03/20 24 07/04/2024 HCV ANTIB MIYA RFX TO QUANT PCR HCV Ab Non Reacti ve non reacti ve Not Available [facility] ([facility]) [address] [place], [address], 07/04/2024 10:07:05 07/03/20 24 07/04/2024 HCV ANTIB MIYA RFX TO QUANT PCR interpretati on: Commen t Not infec benjamin with HCV unles s early or acute infec tion is suspe cted (whic h may be delay ed in an immun ocomp romis ed indiv idual ), or other evide nce exist s to indic ate HCV infec tion. Not Available [facility] ([facility]) [address] [facility], [place], [address], 07/04/2024 10:07:05 07/03/20 24 07/04/2024 HEPAT ITIS B SURF AB QUANT hepatitis B surf Ab quant 62.9 mIU/m L immuni ty>10 Statu s of Immun ity Anti- HBs Level ----- ----- ----- --- ----- ----- ---- Incon siste nt with Immun ity 0.0 - 10.0 Consi stent with Immun ity >10.0 Not Available [facility] ([facility]) [address] [facility], [place], [address], 07/04/2024 10:07:06 08/26/2006/20/2023 US, abdom en No observ ation record ed. [email or web address] Not Available 08/26 16:46:31 07/05/20 24 03/08/2024 imagi ng/di agnos tic resul t No observ ation record ed. [email or web address] Not Available 07/05 10:01:27 07/05/20 24 02/13/2024 imagi ng/di agnos tic resul t No observ ation record ed. Not Available 07/05 10:04:14 Result Notes None recorded. Problems Name Problem SNOMED Code Status Onset Date Resolution Date Notes Provider Name and Address Organization Details Recorded Time Cholelith iasis with obstructi on 77414205 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 with obstructio n; 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; Report Immunity to Registry: Yes; Notes: u/s 2010; Not Available [facility] 4 06:58:53 Chronic obstructi ve pulmonary disease 71563245 Active 2019 Chronic obstructiv e lung disease; snomeddesc ription: Chronic obstructiv e lung disease; Report Immunity to Registry: Yes; Notes: pt reports dx by PCP; Chronic obstructiv e pulmonary disease, unspecifie d; snomeddesc ription: Chronic obstructiv e lung disease; Report Immunity to Registry: Yes; Notes: pt reports dx by PCP; Not Available [facility] 4 06:58:53 Cerebrova scular accident [id number] Active 2019 Cerebrovas cular accident; snomeddesc ription: Cerebrovas cular accident; Report Immunity to Registry: Yes; Notes: hx; Not Available [facility] 4 06:58:53 Chronic kidney disease 489915280 Active 2021 Chronic kidney disease; snomeddesc ription: Chronic kidney disease; Report Immunity to Registry: Yes; Notes: 03/2021 eGFR =34; Not Available [facility] 4 06:58:53 Chronic type B viral hepatitis 43588561 Active 2022 Chronic type B viral hepatitis; [...] 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; F3 2020; Not Available [facility] 4 06:58:53 Myocardia l infarctio n 46733653 Active 2013 Myocardial infarction ; snomeddesc ription: Myocardial infarction ; Report Immunity to Registry: Yes; Notes: 07/03/14 stent x 3; Not Available [facility] 4 06:58:53 [place]bl[place] er and bile duct calculi 826784978 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; 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; Report Immunity to Registry: Yes; Notes: u/s 2010; Not Available [facility] 4 06:58:53 Abdominal aortic aneurysm 575545259 Active 2013 Abdominal aortic aneurysm without mention of rupture; snomeddesc ription: Abdominal aortic aneurysm; Report Immunity to Registry: Yes; Abdominal aortic aneurysm; snomeddesc ription: Abdominal aortic aneurysm; Report Immunity to Registry: Yes; Not Available [facility] 4 06:58:53 Acute myocardia l infarctio n 26461396 Active 2013 Acute myocardial infarction , unspecifie d site; snomeddesc ription: Myocardial infarction ; Report Immunity to Registry: Yes; Notes: 07/03/14 stent x 3; Not Available [facility] 4 06:58:54 Cerebral infarctio n 704856627 Active 2019 Cerebral infarction , unspecifie d; snomeddesc ription: Cerebrovas cular accident; Report Immunity to Registry: Yes; Notes: hx; Not Available [facility] 4 06:58:54 Problem Notes None recorded. Procedures Surgical History None recorded. Imaging Results Imaging Date Name Status LastModified by Organiz ation Details LastModified Time 06/20/2023 US, abdomen completed [email or web address] Information n ot available 08/26/2023 16:46:31 03/08/2024 imaging/diag nostic result completed [email or web address] Information not available 07/05/2024 10:01:27 02/13/2024 imaging/diag nostic result completed [email or web address] Information not available 07/05/2024 10:04:14 Procedure Notes [...] no; Not Available Not Available Not Available insulin aspart U-100 100 unit/mL subcutane ous solution active Not Available Not Available Not Available hydrocodo [...] Not Available Not Available No t Available neomycin 3.5 mg/g-poly myxin B 10,000 unit/g-de xameth 0.1 % eye oint APPLY A 1/4 INCH STRIP TO THE LEFT EYE THREE TIMES A DAY; IF CONDITIO N DOSE NOT IMPROVE IN 3-5 DAYS OR WORSENS - CONTACT PROVIDER . active Not Available Not Available No t [...] mg tablet TAKE 1 TABLET BY MOUTH DAILY 2024 active Not Available Not Available Not Avai lable Zostavax (PF) 19,400 unit/0.65 mL subcutane ous suspensio n 30021 Quantity : 1; Duration : 1; 0 [...] Not Available Not Available No t Available Tresiba FlexTouch U-200 insulin 200 unit/mL (3 mL) subcutane ous pen [...] ular syringe VACCINAT ION ADMINIST ERED BY ASHLEE VILLASEÑOR 07/03 completed Duration : 1; VACCINE_ IND: no; VACCINE_ NAME: Influenz a, high dose seasonal ; Not Available Not Available Not Available CeQur Simplicit y 2 unit device active Not Available Not Available Not Available CeQur Simplicit y Radiologist Diagnostic active Not Available Not Available Not Available Prevnar 20 (PF) 0.5 mL intramusc ular syringe - Quantity : 1; Duration : 1; 0 refill(s ) 03/04 completed Frequenc y: x1; Duration : 1; VACCINE_ IND: no; VACCINE_ NAME: Pneumoco ccal conjugat e PCV20, polysacc haride FKV160 conjugat e, adjuvant , PF; SU_FULL_ NAME: [...] Updated DateTime 3 172.72 cm 22.1 kg/m2 78604.6 9 g 98 [degF] 98 % 98 % 68 /min 110 mm[Hg] 78 mm[Hg] Eunice OKEEFE MD [facility] 3 14:31:17 Date Recorded Body height Heart rate Respiratory rate Body temperature Body mass index (BMI) Body weight Oxygen saturation Oxygen saturation in Arterial blood by Pulse oximetry Systolic blood pressure Diastolic blood pressure Provider Name and Address Organization Details Last Updated DateTime 4 172.72 cm 56 /min 10 /min 98.5 [degF] 23.4 kg/m2 37526.2 2 g 98 % 98 % 118 mm[Hg] 58 mm[Hg] Daniela OKEEFE MD [facility] 4 12:30:04 Date Recorded Body height Heart rate Respiratory rate Body temperature Body mass index (BMI) Body weight Systolic blood pressure Diastolic blood pressure Provider Name and Address Organization Details Last Updated DateTime 5 172.72 cm 67 /min 10 /min 97.8 [degF] 24 kg/m2 56755.5 9 g 146 mm[Hg] 60 mm[Hg] Daniela OKEEFE MD [facility] 5 10:52:47 Social History Question Answer Notes LastModified by Organizat ion Details LastModified Time Tobacco Smoking Status Never Smoker JENIFER Rodriguez MD [facility] 08/23/2023 14:32:12 Are You Blind Or Do You Have Difficulty Seeing? No Information not available 08/23/2023 Are You Deaf Or Do You Have Serious Difficulty Hearing? No [email or web address] Information not available 08/23/2023 Which Of Your Hands Is Dominant? Right [email or web address] Information not available 08/23/2023 Do You Feel Stressed (tense, Restless, Nervous, Or Anxious, Or Unable To Sleep At Night)? [id number] [email or web address] Information not available 08/23/2023 Sex: Male Functional Status Question Answer Note LastModified by Organizat ion Details LastModified Time Do you have difficulty walking or climbing stairs? Yes stroke [email or web address] Information not available 08/23/2023 Do you have transportation difficulties? No Information not available 08/23/2023 Are you able to walk? YESASSIST pt walks with a dorene [email or web address] Information not available 08/23/2023 Do you have difficulty doing errands alone? No [email or web address] Information not available 08/23/2023 Are you able to care for yourself? Yes Information n ot available 08/23/2023 Do you have difficulty dressing or bathing? Yes pt has a person that helps with bathing and dressing [email or web address] Information not available 08/23/2023 Mental Status Question Answer Note LastModified by Organization D etails LastModified Time Do you have difficulty concentrating, remembering or making decisions? No [email or web address] Information no t available 08/23/2023 Family History Nothing Reported Notes:Family history unknown , Response Property: Yes; , No known relatives, Response Property: Yes; Medical History Condition Response Coronary Artery Disease Y Stroke Y Diverticulitis Y Heart Disease Y Immunizations Vaccine Type Date Status Note Provider Nam e and Address Organization Details Recorded Time Influenza, split virus, quadrivalent, preservative 2 completed Not Available [facility] 12/13/2023 06:54:23 Influenza, split virus, quadrivalent, preservative 1 completed Not Available [facility] 12/13/2023 06:54:24 Past Encounters Encounter ID Performer Location Encounter Start Date Encounter Closed Date Diagnosis/Indication Diagnosis SNOMED-CT Code Diagnosis ICD10 Code Diagnosis Note [id number] Marie Okeefe MD Main Office [address] [place] [phone] 6 08/23/2023 14:09:45 08/23/2023 14:48:23 Type B viral hepatitis 89301231 B19.10 HBV: Continue Entecavir 0.5 mg po [...] of care reviewed. Questions and concerns addressed [id number] Marie Okeefe MD Main Office [address] [place] [phone] 6 07/03/2024 12:11:28 07/03/2024 12:39:10 Type B viral hepatitis 05208689 B19.10 HBV: Continue Entecavir 0.5 mg po [...] of care reviewed. Questions and concerns addressed [id number] Marie Okeefe MD Main Office [address] [place] [address] 2024 10:37:00 2024 11:19:47 Type B viral hepatitis 77333005 B19.10 HBV: Continue Entecavir 0.5 mg po qd for HBV.stable CKD. if any changes on eGFR, would need to adjust med dose. pt aware. hydration. labs ordered avoid ETOH; strict compliance addressed w correct use to keep HBV suppressio n. do not stop medication without supervisio n to avoid HBV flare up/liver failure. u/s abd HCC screen Plan of care reviewed. Questions and concerns addressed Health Concerns Section Related Observation LastModified by Organization Jameson kaplan LastModified Time None Recorded Concern Status LastModified by Organization Details LastModified Time None Recorded Advance Directives Directive None Recorded Payers Encounter Date Sequence Insurance Name Policy Number Policy Garcia Covered Member ID Garcia Member ID Guarantor Name 08/23/2023 1 [place] [facility] Phan Gipson [id number] Phan Gipson 08/23/2023 2 [place] [id number] Phan Gipson [id number] Phan Gipson 07/03/2024 1 MEDICARE B-[place]: [facility] Phan Gipson [id number] Phan Gipson 07/03/2024 2 [place] [id number] Phan Gipson [id number] Phan Gipson 2024 1 MEDICARE B-[place]: [facility] Phan Gipson [id number] Phan Gipson 2024 2 [place] [id number] Phan Gipson [id number] Phan Gipson Notes Date Note Type Note [...] booster; will get arexvy. Marie Okeefe MD [address] [place] [address], [phone], JENIFER OKEEFE MD [facility] 08/23/2023 16:59:39 4 text/html f/u HBV. [...] booster; will get arexvy. Marie Okeefe MD [address] [place] [address], [phone], JENIFER OKEEFE MD [facility] 07/03/2024 12:46:44 5 text/html f/u HBV. CKDon Entecavir 0.5 mg 1 tab po qdcompliance ; denies missing dosestolerates wellno concerns.CKD.med list reviewed06/2024 HCV neg; eGFR=42; liver function wnl04/2023 eGFR-32; HBV VL nondetceted; ALT/AST wnl ; HIV neg; HCV neg; HDV ab neg;10/2022 eGFR>40; ALt/AST wnl; HBV VL nondetceted; HDV neg; neg treponemal ab testno jaundice; no edema. no abd painDM/CKDUs renal 02/2024; abd aorta scan 01/2024; reports had u/s abd in Dr Carrera's office summer 2023; no abnormalities w AAA.u/s abd 06/2022 and 06/2023 no mass. 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 n/adeclines STi tetsing. declines PreP. not sexually activeno jaundice. no leg edema. no n/v/d. no CP Marie Okeefe MD [address] [place] [address], [phone], JENIFER - MARIE OKEEFE MD [facility] 01/02/2025 22:53:47
--- OUTSIDE RECORDS SUMMARY | 2025-01-03 14:32 | XMS_ITS ---
Author Organization [facility] Address [address] [place] [address] Care Team Providers Care Internal Carver Name Role Phone Afia Cabrera Primary Care Provider Mikey Figueredo Unavailable [phone] Allergies No Known Allergies REASON FOR VISIT Patient presents today for DIARRHEA Medications Medication SIG (Take, Route, Frequency, Duration) [...] HCl 50 MG Oral for 28 Active Social History Tobacco Use: Social History Observation Description Date Details (start date - stop date) Former Smoker NA - NA Tobacco Use/Smoking Question Answer Notes Patient is a former smoker How long has it been since you last smoked? 1-5 years Section Notes: Nonsmoker since 2020; no sig EtOH Problems Problem Type SNOMED Code ICD Code Onset Dates Problem Status W/U Status Risk Notes Problem Irregular bowel habits (230213055) Irregular bowel habits (R19.8) Active confirmed Vital Signs Blood pressure systolic 00 mm Hg 10/04/20 24 Blood pressure diastolic 00 mm Hg 024 Height 68 in 10/04/2024 Weight 154 lbs 10/04/2024 BMI 23.41 kg/m2 10/04/2024 Encounters Encounter Location Date Provider Diagnosis [facility] [address] [place] [address] 10/04/2024 Mikey Montenegro Diarrhea, unspecifie d type R19.7 and Irregular bowel habits R19.8 Assessments Encounter Date Diagnosis (ICD Code) Assessment Notes Treatment Notes Treatment Clinical Notes Section Notes 10/04/2024 Diarrhea, unspecified type (ICD-10 - [...] keep you advised of his progress. 10/04/2024 Irregular bowel habits (ICD-10 - R19.8) [...] keep you advised of his progress. 10/04/2024 Other Repeat colonoscopy in 2025 Overall, [...] advised of his progress. Plan Of Treatment Treatment Notes Assessment Notes Irregular bowel habits Start 2 Metamucil fiber pills with a glass of water every morning and/or add a probiotic every day to try to help regulate the BM's Other Repeat colonoscopy i n 2025 Next Appt Details Follow Up: prn, Reason: Progress Notes * AYSHA SHAFFER JDOB:[birth year] (73 yo M)Acc No.[id number]:10/04/2024 Progress Notes Patient:?AYSHA SHAFFER Provider:?Mikey Montenegro MD :1950???Age:73 Y???Sex:Male Juanito e:10/04/2024 Address:[address] [place], [place] [id number] Pcp:Afia Cabrera Subjective: * Chief Complaints: * ???Patient presents today fo r DIARRHEA * HPI: ???incontinence:? I saw Chandler in consultation today in regard to further evaluation of his irregular bowel movements, previous history of Giardia infection, and underlying chronic hepatitis B infection. ?I last saw Chandler in 2019 which was shortly after he was successfully treated for Giardia. Since that time he reports that he has basically been feeling well from a GI standpoint. He does have occasional episodes of diarrhea which typically respond to some Pepto-Bismol. He did call here this past May with some increasing diarrhea and I did order stool specimens for him which he did not do up until just the past couple of days. However, at this point he reports that his bowel movements are basically back to normal, albeit somewhat irregular. He only has rare episodes of diarrhea at this point. He will have a sense of incomplete evacuation when he does have normal-appearing stools. He has not noticed any hematochezia nor melena. He enjoys a good appetite and denies any significant heartburn or dysphagia. He denies any early satiety, nausea, nor vomiting. He denies abdominal pain, jaundice, nor unintentional weight loss. He did lose about 10 pounds after a stroke in 2020 but that has remained stable otherwise. He denies any known family history of colon cancer. His last screening colonoscopy in 2025 was negative. ?He is currently on Entecavir through Dr. Barraza for his chronic hepatitis B infection. His most recent abdominal ultrasound in 2022 did not show any sign of liver mass, significant liver disease, splenomegaly, nor ascites. He does have the known gallstones but there was no evidence of any cholecystitis or biliary disease. ?Of note, he did turn in stool specimens earlier this week that are thus far negative including a GI panel and C. difficile. Other studies that I ordered back in May are still pending, but at this point he is not having any further significant diarrhea. ?Laboratories in January revealed a hemoglobin of 12.8 with a normal MCV, white blood cell count, and platelet count. He had a nondetectable hepatitis B DNA level and a negative HIV test in April of 2023. * ROS:?General/Constitutional:?Change in appetite?denies.?Chills?denies.?Fatigue?denies.?Ophthalmologic:?Comments?all negative.?ENT:?Comments?all negative.?Respiratory:?hemoptysis?denies.?Cough?denies.?Cardiovascular:?Chest pain?denies.?Orthopnea?denies.?Gastrointestinal:?Comments?See HPI for details.?Genitourinary:?Hematuria?denies.?Dysuria?denies.?Musculoskeletal:?Painful joints?denies.?Weakness?denies.?Skin:?Itching?denies.?Rash?denies.?Neurologic:?Headache?denies.?Seizures?denies.?Psychiatric:?Comments?all negative.? * Medical History:? * Surgical History:?Carotid en darterectomy-right 2011 and igmoid resection for diverticulitis in 1997--Dr. Acuna * Hospitalization/Major Diagno stic Procedure:?No Hospitalization History. * Family History:?Father: dece ased, surgery angioplasty,AAA, diagnosed with Heart disease.?Mother: , Head injury.? There is no family history of colorectal cancer nor IBD A niece has celiac disease. * Social History:?Tobacco Use:?Tobacco Use/Smoking?Patient is a?former smoker,?How long has it been since you last smoked??1-5 years.?Drugs/Alcohol:?Alcohol Screen?Points: 0, Interpretation: Negative.?Miscellaneous:?Marital status: single. Occupation: retired. ???Nonsmoker since 2020; no sig EtOH. * Medications:?TakingEntecavir 0.5 MG Tablet 1 tablet on an empty stomach Orally Once a dayVitamin D Brilinta Lexapro Aspirin Metoprolol Tartrate Lipitor NovoLOG Tylenol PM Extra Strength Latanoprost Dorzolamide HCl-Timolol Mal Albuterol amLODIPine Besylate 10 MG Tablet Oral hydrALAZINE HCl 50 MG Tablet Oral Omeprazole 20 MG Capsule Delayed Release Oral Atorvastatin Calcium 80 MG Tablet Oral Taking Entecavir 0.5 MG Tablet 1 tablet on an empty stomach Orally Once a dayTaking Vitamin D Taking Brilinta Taking Lexapro Taking Aspirin Taking Metoprolol Tartrate Taking Lipitor Taking NovoLOG Taking Tylenol PM Extra Strength Taking Latanoprost Taking Dorzolamide HCl- Timolol Mal Taking Albuterol Taking amLODIPine Besylate 10 MG Tablet Oral Taking hydrALAZINE HCl 50 MG Tablet Oral Taking Omeprazole 20 MG Capsule Delayed Release Oral Taking Atorvastatin Calcium 80 MG Tablet Oral Not-Taking/PRNSymbicort Not-Taking/PRN Symbicort DiscontinuedDescovy Plavix 75 MG Tablet 1 tablet Orally Once a dayFlagyl 500 MG Tablet 1 tablet Orally Three times a daymetroNIDAZOLE 500 MG Tablet 1 tablet Orally Three times a dayMedication List reviewed and reconciled with the patientDiscontinued Descovy Discontinued Plavix 75 MG Tablet 1 tablet Orally Once a dayDiscontinued Flagyl 500 MG Tablet 1 tablet Orally Three times a dayDiscontinued metroNIDAZOLE 500 MG Tablet 1 tablet Orally Three times a dayMedication List reviewed and reconciled with the patient * Allergies:?N.K.D.A.yes[Aller gies Verified] Objective: * Vitals:?Wt: 154 lbs, Ht: 68 in, BMI:23.41 Index, BP: 00/00 mm Hg. * Examination: ???General Examination: ?GENERAL APPEARANCE:?pleasant, well nourished, well developed, in no acute distress.?EYES:?sclera non-icteric.?ORAL CAVITY:?mucosa moist.?NECK/THYROID:?no cervical lymphadenopathy, neck supple.?SKIN:?nonjaundiced, no spider angiomata.?HEART:?S1, S2 normal.?LUNGS:?clear to auscultation bilaterally.?ABDOMEN:?normal bowel sounds, no guarding or rigidity, no guarding or rigidity, no masses palpable, soft, nontender, nondistended.?EXTREMITIES:?no edema.?NEUROLOGIC:?alert and oriented.? Assessment: * Assessment: 1.?Irregular bowel habits - R19.8 (Primary)?2.?Diarrhea, unspecified type - R19.7? Overall, Chandler appears reason ably well at this time and is not [...] to keep you advised of his progress. Plan: * Treatment: 2.?Others? Notes: Repeat colonoscopy in 2025?? * Procedure Codes:?3017F COLOR ECTAL CA SCREEN DOC [id number] TOBACCO NON-[id number] BP SCR NOT PRFRM REC REASON NOS * Preventive Medicine:? ??Screenings:?Fall Risk Screening?Fall Risk Assessment:?No falls in the past year,?Screening:?No falls in the past year,?Assessment:?Not performed, no reason specified,?Plan of Care:?Not documented, no reason specified.? * Follow Up:?prn * * Sign off status: Completed true * Provider:?Mikey Montenegro MD Date:? 024 Generated for Luisana shelley/Gutierrez/eTransmitting on:?01/03/2025 02:32 PM EDT History and Physical Notes * HPI (History of Present Illness) Category Sub-Category Detail Notes Category Not es incontinence I saw Chandler in consultation today in regard to further evaluation of his irregular bowel movements, previous history of Giardia infection, and underlying chronic hepatitis B infection. I last saw Chandler in 2018 which was shortly after he was successfully treated for Giardia. Since that time he reports that he has basically been feeling well from a GI standpoint. He does have occasional episodes of diarrhea which typically respond to some Pepto-Bismol. He did call here this past May with some increasing diarrhea and I did order stool specimens for him which he did not do up until just the past couple of days. However, at this point he reports that his bowel movements are basically back to normal, albeit somewhat irregular. He only has rare episodes of diarrhea at this point. He will have a sense of incomplete evacuation when he does have normal-appearing stools. He has not noticed any hematochezia nor melena. He enjoys a good appetite and denies any significant heartburn or dysphagia. He denies any early satiety, nausea, nor vomiting. He denies abdominal pain, jaundice, nor unintentional weight loss. He did lose about 10 pounds after a stroke in 2020 but that has remained stable otherwise. He denies any known family history of colon cancer. His last screening colonoscopy in 2025 was negative. He is currently on Entecavir through Dr. Barraza for his chronic hepatitis B infection. His most recent abdominal ultrasound in 2022 did not show any sign of liver mass, significant liver disease, splenomegaly, nor ascites. He does have the known gallstones but there was no evidence of any cholecystitis or biliary disease. Of note, he did turn in stool specimens earlier this week that are thus far negative including a GI panel and C. difficile. Other studies that I ordered back in May are still pending, but at this point he is not having any further significant diarrhea. Laboratories in January revealed a hemoglobin of 12.8 with a normal MCV, white blood cell count, and platelet count. He had a nondetectable hepatitis B DNA level and a negative HIV test in April of 2023. Examination Category Sub-Category Detail Notes Category Not es General Examination GENERAL APPEARANCE: pleasant , well [...]
--- OUTSIDE RECORDS SUMMARY | 2025-01-03 14:32 | XMS_ITS | Clinical Summary ---
Author Organization [facility] Address [address] [place] [address] Care Team Providers Care Professor Of Literacy Name Role Phone Ryder Lou MD Primary Care Provider [phone] Allergies No known active allergies Active Problems [...] HISTORICAL APPENDECTOMY OTHER SURGICAL HISTORY 1997 PROCEDURE: DE COLECTOMY PARTIAL W/ANASTOMOSIS; COMMENT: sigmoid resection for [...] Type 1 diabetes mellitus wit h cataract ([facility]) 05/07/2019 DX:Type 1 diabetes mellitus with cataract (HCC) Type 1 diabetes mellitus wit h peripheral vascular disease ([facility]) 05/07/2019 DX:Type 1 diabet es mellitus with peripheral vascular disease (HCC) Family History Medical History Relation Name Comments Alcohol abuse Father throat cancer, [place], AAA Heart attack Maternal Grandfather Other: hyperlipidemia [...] Info) Description 01/27/2025 1:00 PM EDT Appointment [facility] Ultrasound [address] [place] [id number] 02/26/2025 10:30 AM EDT Office Visit [facility] - [place] [address] [place] [phone] Jami Mujica MD [address] [place] [address] Health Maintenance Due Date Last Done Comments [...] age to complete this topic Insurance MEDICARE [facility] Care Teams Professor Of Literacy Relationship Specialty Start Date End Date Ryder Lou MD [address] PCP - General Internal Medicine 11/27/18
--- OUTSIDE RECORDS SUMMARY | 2025-01-03 14:32 | XMS_ITS | Encounter Summary ---
Author Organization [facility] Address [address] [facility] [address] [place] [address] Phone Care Team Providers Care Retail Inventory Control Clerk Name Role Phone Afia Cabrera MD Primary Care Provider [phone] Encounter Details Date Type Department Care Team (Late Contact Info) Description 02/25/2022 Documentation Only [facility] [address] [facility] [address] [place] [address] Chandrakant Lei MD [address] [facility] [address] [place] [address] Social History Tobacco Use Types [...] Visit [facility] [address] [place] [address] Chandrakant Lei MD [address] [facility] [address] [place] [address] documented as of this encounter Visit Diagnoses Not on filedocumented in this encounter Care Teams Retail Inventory Control Clerk Relationship Specialty Start Date End Date Afia Cabrera MD [address] [facility] [address] [place] [address] PCP - General Family Medicine 04/28/21 documented as of this encounter
--- OUTSIDE RECORDS SUMMARY | 2025-01-03 14:33 | XMS_ITS | Continuity of Care Document ---
Author Organization [facility], Main Office Address [address] [facility] [address] [place] [address] Care Team Providers Care Butcher Helper Name Role Phone MARIE OKEEFE Infectious Disease DELMA BORRERO Network Security Architect [phone] RAI PEREIRA Dairy Science Teacher DAVID IVEY Soa Integration Architect ATIYA COHEN Vascular Surgeon [phone] [facility] Endocrinolo gist JOSE ALFREDO GALLEGO Neurologist ENZO ROSE Neurologist SHEA PEREZ Yard Foreman OUSMANE SEGURA Soa Integration Architect [phone] ROBERT LEI Wood Molder AFIA POLK Primary Care Provider BETSY LOWE Financial Aid Coordinator [facility] Vascular Surgeon Assessment No assessment recorded. Plan of Treatment Reminders Order Date Submit Date Provider Last Modified By Organization Details Last Modified Time Details Appointments FOLLOW UP 30MIN 2024 11:15A Vita Polk MD Not available Not available Not available AWV30 2024 11:15A Vita Polk MD Not available Not available Not available Lab None recorded. Referral None recorded. Procedures None recorded. Surgeries None recorded. Imaging None recorded. Medication Orders metoprolo l succinate ER 100 mg tablet,ex tended release 24 hr 2024 025 [facility], [address] [facility], [place], [address], 12/06/2024 11:04:28 Patient TargetsNo targets recorded. Patient Instructions Encounter Date Encounter Id Patient Instructions Last Modified By Organization Details Last Modified Time 12/06/2024 [id number] hepatitis B: car e instructions [email or web address] Not available 12/06/2024 11:03:10 high blood pressure: care instructions [email or web address] Not available 12/06/2024 11:03:10 learning about high blood pressure ckokar Not available 12/06/2024 11:03:10 chronic obstructive pulmonary disease (COPD): care instructions [email or web address] Not available 12/06/2024 11:03:10 learning about copd and how to prevent lung infections [email or web address] Not available 12/06/2024 11:03:10 Reason for Referral None Reported. Problems Name Problem SNOMED Code Status Onset Date Resolution Date Notes Provider Name and Address Organization Details Recorded Time Abdomina l aortic aneurysm [id number] Completed 201305/06/2014 STORY: 2.9CM (OCT 2013); RECORDED 11/21/19 14 1:54PM BY ZULEIKA KAN MA, ANNOTATI ON/ADDEN DUM [facility] [place] 6 11:14:48 Chronic bronchit is 94280779 Completed 201205/06/2014 RECORDED 06/28/20 13 10:13AM BY RYDER LOU MD, SAJAN ON/ADDEN DUM [facility] [place] 6 11:14:48 Acute pharyngi tis 279134694 Completed 201105/06/2014 IMPRESSI ON: RAPID STREP NEGATIVE , EXAM C/W WITH STREP, WILL SEND CULTURE AND TREAT.; RECORDED 06/27/20 12 10:38AM BY ZULEIKA KAN MA, ANNOTATI ON/ADDEN DUM JENIFER Cavanaugh, [facility] 6 11:14:48 Adult health examinat ion Completed 09/09/2014 JENIFER Cavanaugh, [facility] 6 11:14:48 Chronic type B viral hepatiti s 41057042 Active 2020 JENIFER Pennington, [facility] 2 10:14:18 Depressi ve disorder 38050869 Completed 201105/06/2014 RECORDED 06/27/20 12 10:38AM BY ZULEIKA KAN MA, SAMUELATI ON/ADDEN DUM JENIFER Cavanaugh, [facility] 6 11:14:48 Type 1 diabetes mellitus 71320410 Completed 201205/06/2014 STORY: KORFF; RECORDED 06/28/20 13 9:34AM BY BRITTNI DUMONT MA, ANNOTATI ON/ADDEN DUM Afia Polk MD [address] [address], [place], [address] , [facility] 4 11:59:19 Uncontro lled type 1 diabetes mellitus 310175117 Completed 202007/17/2024 Afia Polk MD [address] [address], [place], [address] , [facility] 4 11:59:29 Disorder of skin 64504837 Completed 201105/06/2014 RECORDED 06/27/20 12 10:38AM BY ZULEIKA KAN MA, SAJAN ON/ADDEN DUM Afia Polk MD [address] [address], [place], [address] , [facility] 4 11:57:35 Family history of Cardiova scular disease 276796942 Completed 201105/06/2014 STORY: FATHER; RECORDED 06/27/20 12 10:38AM BY ZULEIKA KAN MA, ANNOTMAGDA ON/ADDEN DUM JENIFER Cavanaugh, [facility] 6 11:14:48 Influenz a vaccine needed 67577262859 06 Completed 201205/06/2014 RECORDED 06/28/20 13 9:37AM BY BRITTNI DUMONT MA, OFFICE VISIT JENIFER Cavanaugh, [facility] 6 11:14:48 Genital herpes simplex 62454650 Completed 201105/06/2014 RECORDED 06/27/20 12 10:38AM BY ZULEIKA KAN MA, SAJAN ON/ADDEN DUM JENIFER Cavanaugh, [facility] 6 11:14:48 Condylom a acuminat um of the anogenit al region 052649204 Active 2020 JENIFER Pennington, [facility] 2 10:14:18 Glaucoma 35574884 Active 2020 JENIFER Pennington, [facility] 2 10:14:18 Pure hypercho lesterol emia 153607282 Completed 202007/17/2023 Afia Polk MD [address] [address], [place], [address] , [facility] 4 11:58:56 Jaw pain 665973507 Completed 201105/06/2014 RECORDED 06/27/20 12 10:38AM BY ZULEIKA KAN MA, SAJAN ON/ADDEN DUM JENIFER Cavanaugh, [facility] 6 11:14:48 Laborato ry procedur e performe d 508029911 Completed 201305/06/2014 RECORDED 11/21/19 14 1:54PM BY ZULEIKA KAN MA, SAJAN ON/ADDEN DUM JENIFER Cavanaugh, [facility] 6 11:14:48 Low back pain 015608278 Completed 201205/06/2014 RECORDED 11/09/19 13 2:18PM BY ZULEIKA KAN MA, ANNOTATI ON/ADDEN DUM JENIFER Cavanaugh, [facility] 6 11:14:48 Lyme disease 18210848 Completed 10/17/2017 Afia Polk MD [address] [facility] [address], [place], [address] , [facility] 4 11:58:15 Postproc edural state finding 267190149 Completed 09/09/2014 JENIFER Cavanaugh, [facility] 6 11:14:48 Screenin g for malignan t neoplasm of colon Completed 201105/06/2014 RECORDED 06/27/20 12 10:38AM BY ZULEIKA KAN MA ANNOTMAGDA ON/ADDEN DUM JENIFER Cavanaugh, [facility] 6 11:14:48 Tobacco dependen ce syndrome 47403112 Completed 202007/17/2023 Afia Polk MD [address] [facility] [address], [place], [address] , [facility] 4 11:59:36 Wheezing 28750117 Completed 201205/06/2014 RECORDED 03/01/20 13 10:00AM BY ZULEIKA KAN MA, ANNOTMAGDA ON/ADDEN DUM Brittni JENIFER Gaming, [facility] 6 11:14:48 Abdomina l aortic aneurysm 078164496 Completed 201305/29/2014 STORY: 2.9CM (OCT 2013); RECORDED 11/21/19 14 1:54PM BY ZULEIKA KAN MA, ANNOTMAGDA ON/ADDEN DUM Brittni JENIFER Gaming, [facility] 6 11:14:48 Chronic bronchit is 98154829 Completed 201205/29/2014 RECORDED 06/28/20 13 10:13AM BY RYDER LOU MD, SAJAN ON/ADDEN JENIFER Olivares, [facility] 6 11:14:48 Acute pharyngi tis 261213198 Completed 201105/29/2014 IMPRESSI ON: RAPID STREP NEGATIVE , EXAM C/W WITH STREP, WILL SEND CULTURE AND TREAT.; RECORDED 06/27/20 12 10:38AM BY ZULEIKA KAN MA, ANNOTATI ON/ADDEN JENIFER Olivares, [facility] 6 11:14:48 Depressi ve disorder 00292941 Completed 201105/29/2014 RECORDED 06/27/20 12 10:38AM BY ZULEIKA KAN MA, ANNOTATI ON/ADDEN JENIFER Olivares, [facility] 6 11:14:48 Type 1 diabetes mellitus 50052605 Completed 201205/29/2014 STORY: KORFF; RECORDED 06/28/20 13 9:34AM BY BRITTNI DUMONT MA, SAJAN ON/FREDDIEEN MARLYN Polk MD [address] [address], [place], [address] , [facility] 4 11:59:19 Disorder of skin 40224951 Completed 201105/29/2014 RECORDED 06/27/20 12 10:38AM BY ZULEIKA KAN MA, ANNOTATI ON/JAMAL Polk MD [address] [facility] [address], [place], [address] , [facility] 4 11:57:35 Family history of Cardiova scular disease 445657669 Completed 201105/29/2014 STORY: FATHER; RECORDED 06/27/20 12 10:38AM BY ZULEIKA KAN MA, ANNOTATI ON/JENIFER Valentino, [facility] 6 11:14:48 Influenz a vaccine needed 34841625238 06 Completed 201205/29/2014 RECORDED 06/28/20 13 9:37AM BY BRITTNI DUMONT MA, OFFICE VISIT JENIFER Cavanaugh, [facility] 6 11:14:48 Genital herpes simplex 44106315 Completed 201105/29/2014 RECORDED 06/27/20 12 10:38AM BY ZULEIKA AKN MA, ANNOTATI ON/ADDEN DUM JENIFER Cavanaugh, [facility] 6 11:14:48 Jaw pain 617995986 Completed 201105/29/2014 RECORDED 06/27/20 12 10:38AM BY ZULEIKA KAN MA, ANNOTMAGDA ON/ADDEN DUM JENIFER Cavanaugh, [facility] 6 11:14:48 Laborato ry procedur e performe d 064273343 Completed 201305/29/2014 RECORDED 11/21/19 14 1:54PM BY ZULEIKA KAN MA, ANNOTMAGDA ON/ADDEN DUM JENIFER Cavanaugh, [facility] 6 11:14:48 Low back pain 489076045 Completed 201205/29/2014 RECORDED 11/09/19 13 2:18PM BY ZULEIKA KAN MA, ANNOTMAGDA ON/ADDEN DUM JENIFER Cavanaugh, [facility] 6 11:14:48 Screenin g for malignan t neoplasm of colon Completed 201105/29/2014 RECORDED 06/27/20 12 10:38AM BY ZULEIKA KAN MA, ANNOTMAGDA ON/ADDEN DUM JENIFER Cavanaugh, [facility] 6 11:14:48 Wheezing 87292610 Completed 201205/29/2014 RECORDED 03/01/20 13 10:00AM BY ZULEIKA KAN MA, SAJAN ON/ADDEN DUM Brittni JENIFER Gaming, [facility] 6 11:14:48 Abdomina l aortic aneurysm 351595448 Completed 201305/30/2014 STORY: 2.9CM (OCT 2013); RECORDED 11/21/19 14 1:54PM BY ZULEIKA KAN MA, SAJAN ON/ADDEN DUM JENIFER Cavanaugh, [facility] 6 11:14:48 Chronic bronchit is 53012102 Completed 201205/30/2014 RECORDED 06/28/20 13 10:13AM BY RYDER LOU MD, SAJAN ON/ADDEN DUM JENIFER Cavanaugh, [facility] 6 11:14:48 Acute pharyngi tis 332099240 Completed 201105/30/2014 IMPRESSI ON: RAPID STREP NEGATIVE , EXAM C/W WITH STREP, WILL SEND CULTURE AND TREAT.; RECORDED 06/27/20 12 10:38AM BY ZULEIKA KAN MA, SAJAN ON/ADDEN DUM JENIFER Cavanaugh, [facility] 6 11:14:48 Depressi ve disorder 63792610 Completed 201105/30/2014 RECORDED 06/27/20 12 10:38AM BY ZULEIKA KAN MA, SAJAN ON/ADDEN DUM Brittni JENIFER Gaming, [facility] 6 11:14:48 Type 1 diabetes mellitus 85921782 Completed 201205/30/2014 STORY: KORFF; RECORDED 06/28/20 13 9:34AM BY BRITTNI DUMONT MA, SAJAN ON/ADDEN DUM Afia Polk MD [address] [address], [facility] [place], [address] , [facility] 4 11:59:19 Disorder of skin 55672547 Completed 201105/30/2014 RECORDED 06/27/20 12 10:38AM BY ZULEIKA KAN MA, SAMUELATI ON/ADDEN DUM Afia Polk MD [address] [facility] [address], [place], [address] , [facility] 4 11:57:35 Family history of Cardiova scular disease 507997148 Completed 201105/30/2014 STORY: FATHER; RECORDED 06/27/20 12 10:38AM BY ZULEIKA KAN MA, ANNOTATI ON/ADDEN DUM JENIFER Cavanaugh [facility] 6 11:14:48 Influenz a vaccine needed 53339517340 06 Completed 201205/30/2014 RECORDED 06/28/20 13 9:37AM BY BRITTNI DUMONT MA, OFFICE VISIT JENIFER Cavanaugh, [facility] 6 11:14:48 Genital herpes simplex 79176197 Completed 201105/30/2014 RECORDED 06/27/20 12 10:38AM BY ZULEIKA KAN MA, ANNOTATI ON/ADDEN DUM JENIFER Cavanaugh, [facility] 6 11:14:48 Jaw pain 204334069 Completed 201105/30/2014 RECORDED 06/27/20 12 10:38AM BY ZULEIKA KAN MA, ANNOTATI ON/ADDEN DUM JENIFER Cavanaugh, [facility] 6 11:14:48 Laborato ry procedur e performe d 644817125 Completed 201305/30/2014 RECORDED 11/21/19 14 1:54PM BY ZULEIKA KAN MA, ANNOTMAGDA ON/ADDEN DUM JENIFER Cavanaugh, [facility] 6 11:14:48 Low back pain 528905775 Completed 201205/30/2014 RECORDED 11/09/19 13 2:18PM BY ZULEIKA KAN MA, ANNOTATI ON/ADDEN DUM Brittni JENIFER Gaming, [facility] 6 11:14:48 Screenin g for malignan t neoplasm of colon Completed 201105/30/2014 RECORDED 06/27/20 12 10:38AM BY ZULEIKA KAN MA, ANNOTMAGDA ON/ADDEN DUM BrittniJENIFER Anders, [facility] 6 11:14:48 Wheezing 86660675 Completed 201205/30/2014 RECORDED 03/01/20 13 10:00AM BY ZULEIKA KAN MA, ANNOTATI ON/ADDEN DUM Brittni JENIFER Gaming, [facility] 6 11:14:48 Insomnia 531122150 Active 2020 JENIFER Pennington, [facility] 2 10:14:18 Genital herpes simplex 05775802 Active 2020 JENIFER Pennington, [facility] 2 10:14:18 Acute non-ST segment elevatio n myocardi al infarcti on 721842921 Completed 202001/15/2024 Afia Polk MD [address], [place], [address] , [facility] 4 11:56:26 Abdomina l aortic aneurysm 113602918 Active 2020 JENIFER Pennington, [facility] 2 10:14:18 Chest pain 71177389 Completed 04/12/2017 Afia Polk MD [address], [place], [address] , [facility] 4 11:56:39 Anal warts 151194501 Active 2020 JENIFER Pennington, [facility] 2 10:14:18 Lumbar radiculo efrain 896181532 Completed 202007/19/2024 Afia Polk MD [address], [place], [address] , [facility] 4 11:58:18 Open-ang le glaucoma 18144453 Active 2020 JENIFER Pennington, [facility] 2 10:14:18 History of malignan t neoplasm of skin Completed 201604/12/2017 Removal Reason: excision Brittni JENIFER Gaming, [facility] 7 16:22:52 Basal cell carcinom a of nose 209730950 Completed 201406/23/2015 Removal Reason: excision Afia Polk MD [address], [place], [address] , [facility] 4 11:59:58 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 647999756 Completed 201707/17/2024 Afia Polk MD [address], [place], [address] , [facility] 5 11:01:15 Carotid artery stenosis 33991957 Active 2017 JENIFER Pennnigton, [facility] 2 10:14:18 Acute exacerba tion of chronic obstruct ashlee pulmonar y disease 817809652 Completed 201707/17/2023 Afia Polk MD [address], [place], [address] , [facility] 4 11:56:03 Pituitar y mass 561219508 Completed 201807/17/2024 Afia Polk MD [address], [place], [address] , [facility] 5 15:25:07 Lyme disease 48621392 Completed 202007/17/2023 Afia Polk MD [address], [place], [address] , [facility] 4 11:58:15 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 66717392271 9100 Completed 202007/17/2023 Afia Polk MD [address] [facility] [address], [place], [address] , [facility] 4 11:59:40 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 690689412 Active 2020 JENIFER Pennington, [facility] 2 10:14:18 Hypercho lesterol emia 96143350 Completed 07/17/2023 Afia Polk MD [address] [facility] [address], [place], [address] , [facility] 3 13:11:42 Vitreous floaters 43323743 Completed 202007/19/2024 Afia Polk MD [address], [place], [address] , [facility] 4 11:59:32 Cataract 630335298 Active 2020 JENIFER Pennington, [facility] 2 10:14:18 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 960654876 Active 2017 Mirna driver [facility] 1 11:28:54 Type 1 diabetes mellitus without complica tion 484657231 Completed 201712/23/2019 Afia Polk MD [address], [place], [address] , [facility] 4 11:59:25 Chronic obstruct ashlee pulmonar y disease 11112396 Active 2019 JENIFER Pennington, [facility] 2 10:14:18 Serum creatini ne above referenc e range 104577570 Completed 201907/17/2023 Afia Polk MD [address], [place], [address] , [facility] 4 11:59:09 Exposure to SARS-CoV -2 Completed 07/06/2020 Removal Reason: Problem added by user zahra carlos from the COVID-19 watch flag JENIFER Cavanaugh, [facility] 0 11:14:48 Renal disorder due to type 1 diabetes mellitus 203400486 Completed 201907/17/2024 Afia Polk MD [address] [facility] [address], [place], [address] , [facility] 4 11:59:49 Squamous cell carcinom a of scientology 543703292 Completed 202007/19/2024 Afia Polk MD [address] [facility] [address], [place], [address] , [facility] 4 11:59:46 Hemipleg ia and/or hemipare sis followin g stroke 66885887021 107 Active 2020 JENIFER Pennington, [facility] 2 10:14:18 Dysfunct ion of eustachi an tube 10931241 Completed 202007/17/2023 Afia Polk MD [address], [place], [address] , [facility] 3 13:11:32 Chronic kidney disease stage 3 914930924 Completed 202009/22/2022 Afia Polk MD [address], [place], [address] , [facility] 4 11:56:43 Microalb uminuria 847187571 Active 2020 LABS 02/24/202 1 ACR 93.8 Lauryn Cordero MA null, [facility] 2 10:18:20 Mixed anxiety and depressi ve disorder 880035053 Completed 202007/17/2023 Afia Polk MD [address], [place], [address] , [facility] 3 13:12:26 Hyperten sive renal disease 00533038 Active 2021 Lauryn Cordero MA null, [facility] 2 10:18:20 COVID-19 558927360 Completed 202107/17/2023 Afia Plok MD [address], [place], [address] , [facility] 4 11:57:24 Pituitar y microade noma 072130067 Active 2021 reynaldo Valera MA null, [facility] 4 13:08:14 Myocardi al infarcti on 93287894 Completed 202107/17/2024 Afia Polk MD [address], [place], [address] , [facility] 4 11:58:30 Type 1 diabetes mellitus 14338377 Completed 202009/12/2022 Afia Polk MD [address], [place], [address] , [facility] 4 11:59:19 Renal osteodys trophy 73142515 Completed 202003/08/2021 JENIFER Pennington, [facility] 2 09:26:22 Coronary arterios clerosis 90856929 Active 2021 JENIFER Pennington, [facility] 2 10:18:20 Vitamin D deficien cy 50328727 Active 2020 JENIFER Pennington, [facility] 2 10:14:18 Pituitar y adenoma 570530114 Completed 202107/17/2024 Afia Polk MD [address], [place], [address] , [facility] 5 15:25:13 Hyperlip idemia 29127607 Active 2020 JENIFER Pennington, [facility] 2 10:14:19 Cerebrov ascular accident 485379054 Completed 202107/17/2024 Afia Polk MD [address], [place], [address] , [facility] 4 12:23:30 Divertic ular disease 563843982 Completed 202107/19/2024 Afia Polk MD [address], [place], [address] , [facility] 4 12:00:13 Anxiety 19330662 Active 2021 JENIFER Pennington, [facility] 2 10:18:21 Renal osteodys trophy 57449194 Completed 202003/08/2021 JENIFER Morejon, [facility] 4 11:24:46 Type 1 diabetes mellitus without complica tion 165192026 Completed 201709/12/2022 Afia Polk MD [address], [place], [address] , [facility] 4 11:59:25 Cough 20424322 Completed 202107/17/2023 Afia Polk MD [address], [place], [address] , [facility] 4 11:57:21 Inguinal hernia 531399433 Active 2021 Right side Afia Polk MD [address], [place], [address] , [facility] 2 10:47:40 Chronic kidney disease stage 3B 047411042 Active 2021 JENIFER Morejon, [facility] 4 13:08:15 History of SARS-CoV -2 83808860972 5540236 Active 2022 JENIFER Morejon, [facility] 4 13:08:14 History of Lyme disease 537965035 Active 2018 JENIFER Morejon, [facility] 4 13:08:14 Major depressi on in [facility] n 73375586 Active 2022 JENIFER Morejon, [facility] 4 13:08:14 Ex-smoke r 5191773 Active 2022 JENIFER Morejon, [facility] 4 13:08:15 Weight loss 44530784 Completed 202307/17/2024 Afia Polk MD [address], [place], [address] , [facility] 4 12:24:37 Recurren t falls 267345257 Completed 202307/19/2024 Afia Polk MD [address], [place], [address] , [facility] 4 11:59:06 Spastici ty as sequela of stroke 27681739874 9102 Active 2020 JENIFER Morejon, [facility] 4 13:08:14 History of divertic ulitis 23621578795 9100 Active 2018 JENIFER Morejon, [facility] 4 13:08:14 Acquired melanocy tic nevus of retina 47146697278 9107 Active 2018 JENIFER Morejon, [facility] 4 13:08:14 Serum creatini ne above referenc e range 141994207 Completed 201901/15/2024 Afia Polk MD [address], [place], [address] , [facility] 4 11:59:09 Acute exacerba tion of chronic obstruct ashlee pulmonar y disease 933767854 Completed 201707/17/2024 Afia Polk MD [address], [place], [address] , [facility] 4 11:56:03 Mixed anxiety and depressi ve disorder 353347813 Active 2020 JENIFER Morejon, [facility] 4 13:08:14 Lyme disease 77101565 Completed 202007/17/2024 Afia Polk MD [address], [place], [address] , [facility] 4 11:58:15 Pure hypercho lesterol emia 684818597 Completed 202007/17/2024 Afia Polk MD [address], [place], [address] , [facility] 4 11:58:56 History of cerebrov ascular accident 848380786 Active 2018 JENIFER Morejon, [facility] 4 13:08:14 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 17943839819 9100 Completed 202007/19/2024 Afia Polk MD [address] [facility] [address], [place], [address] , [facility] 4 11:59:40 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 767251706 Active 2018 JENIFER Morejon, [facility] 4 13:08:14 Chronic kidney disease stage 3 715625950 Completed 202007/17/2024 Afia Polk MD [address] [address], [place], [address] , [facility] 4 11:56:43 Type 1 diabetes mellitus 52502391 Completed 202007/17/2024 Afia Polk MD [address] [address], [place], [address] , [facility] 4 11:59:19 Cough 42250978 Completed 202101/10/2024 Afia Polk MD [address] [address], [place], [address] , [facility] 4 11:57:21 Essentia l hyperten jj 26095323 Active 2019 JENIFER Morejon, [facility] 4 13:08:15 Intermit tent claudica tion 57634335 Active 2018 JENIFER Morejon, [facility] 4 13:08:15 Bilatera l stenosis of carotid arteries 479163182 Active 2018 JENIFER Morejon, [facility] 4 13:08:15 COVID-19 069024913 Completed 202101/10/2024 Afia Polk MD [address], [place], [address] , [facility] 4 11:57:24 Tobacco dependen ce syndrome 60195525 Completed 202007/17/2024 Afia Polk MD [address], [place], [address] , [facility] 4 11:59:36 Constipa tion 86919211 Completed 202307/19/2024 Afia Polk MD [address], [place], [address] , [facility] 4 11:57:15 Pruritic disorder 967702440 Completed 202307/19/2024 Afia Polk MD [address], [place], [address] , [facility] 4 11:58:52 Fatigue 76939758 Completed 202307/17/2024 Afia Polk MD [address], [place], [address] , [facility] 4 12:23:21 History of non-ST segment elevatio n myocardi al infarcti on 691402515 Active 2023 Afia Polk MD [address], [place], [address] , [facility] 4 08:27:10 Atherosc lerotic renal artery stenosis 461109815 Active 2023 Afia Polk MD [address], [place], [address] , [facility] 4 08:28:24 Uncontro lled type 2 diabetes mellitus 059579982 Completed 202307/19/2024 Afia Polk MD [address], [place], [address] , [facility] 4 11:59:22 Hypergly cemia due to type 2 diabetes mellitus 65625518363 9109 Active 2023 Afia Polk MD [address], [place], [address] , [facility] 4 12:22:44 Insulin treated type 2 diabetes mellitus [id number] Active 2023 Afia Polk MD [address], [place], [address] , [facility] 4 12:31:00 Type 1 diabetes mellitus without complica tion [id number] Completed 201707/19/2024 Afia Polk MD [address], [place], [address] , [facility] 4 11:59:25 Serum creatini ne above referenc e range [id number] Completed 201907/19/2024 Afia Polk MD [address], [place], [address] , [facility] 4 11:59:09 Acute exacerba tion of chronic obstruct ashlee pulmonar y disease [id number] Completed 201707/19/2024 Afia Polk MD [address], [place], [address] , [facility] 4 11:56:03 Myocardi al infarcti on [id number] Completed 202107/19/2024 Afia Polk MD [address], [place], [address] , [facility] 4 11:58:30 Cerebrov ascular accident [id number] Active 2021 Smitha Valera MA [facility] 4 11:24:46 Lyme disease [id number] Completed 202007/19/2024 Afia Polk MD [address], [place], [address] , [facility] 4 11:58:15 Pituitar y mass [id number] Completed 201812/05/2024 Afia Polk MD [address], [place], [address] , [facility] 5 15:25:07 Pituitar y adenoma [id number] Completed 202112/05/2024 Afia Polk MD [address], [place], [address] , [facility] 5 15:25:13 Pure hypercho lesterol emia [id number] Completed 202007/19/2024 Afia Polk MD [address], [place], [address] , [facility] 4 11:58:56 Chest pain [id number] Completed 202307/19/2024 Afia Polk MD [address], [place], [address] , [facility] 4 11:56:39 Acute non-ST segment elevatio n myocardi al infarcti on [id number] Completed 202007/19/2024 Afia Polk MD [address], [place], [address] , [facility] 4 11:56:26 Basal cell carcinom a of nose [id number] Completed 201407/19/2024 Afia Polk MD [address], [place], [address] , [facility] 4 11:59:58 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 [id number] Completed 201707/19/2024 Afia Polk MD [address], [place], [address] , [facility] 5 11:01:15 Renal disorder due to type 1 diabetes mellitus [id number] Completed 201907/19/2024 Afia Polk MD [address] [facility] [address], [place], [address] , [facility] 4 11:59:49 Chronic kidney disease stage 3 [id number] Completed 202007/19/2024 Afia Polk MD [address], [place], [address] , [facility] 4 11:56:43 Uncontro lled type 1 diabetes mellitus [id number] Completed 202007/19/2024 Afia Polk MD [address], [place], [address] , [facility] 4 11:59:29 Type 1 diabetes mellitus [id number] Completed 202007/19/2024 Afia Polk MD [address], [place], [address] , [facility] 4 11:59:19 Cough [id number] Completed 202107/19/2024 Afia Polk MD [address], [place], [address] , [facility] 4 11:57:20 Diarrhea [id number] Active [address] Wells. Afia Polk MD [address] [facility] [address], [address] , [facility] 4 11:58:13 Chronic kidney disease due to type 2 diabetes mellitus [id number] Completed 202301/25/2024 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 Please review these documents and add these problems to the patient's chart manually as needed. Problem Notes None recorded. Procedures Surgical History Date Name Laterality Status Provider Name and Address Organization Details Recorded Time 07/19/20 24 Advanced Care Planning completed Smitha Valera MA [facility] 07/19/2024 11:23:18 07/17/20 23 Advanced Care Planning completed Afia Polk MD [address] [address], [place], [address], [facility] 07/17/2023 13:32:53 07/17/20 23 Diabetic Foot Exam (Monofilament) completed Afia Polk MD [address] [place], [address], [facility] 07/17/2023 13:32:00 11/29/19 22 Diabetic Foot Exam (Monofilament) completed Afia Polk MD [address] [address], [place], [address], [facility] 11/29/2021 10:53:47 04/01/20 21 insertion of renal artery stent completed Mirna Guan [facility] 04/05/2021 15:25:49 10/23/19 21 angioplasty of renal artery completed Afia Polk MD [address] [address], [place], [address], [facility] 07/17/2023 13:23:12 12/23/19 20 Mini-Cog Test completed Brittni pappas MA [facility] 12/23/2019 08:37:07 10/19/20 18 Mini-Cog Test completed Matilde Dowling [facility] 10/19/2018 09:36:52 04/16/20 18 Diabetic Foot Exam (Monofilament) completed Brittni pappas [facility] 04/16/2018 14:05:15 10/17/20 17 Fall Risk Assessment completed Brittni pappas [facility] 10/17/2017 08:36:49 10/17/20 17 Mini-Cog Test completed Ryder Lou MD [address], [address], [facility] 10/17/2017 09:01:30 10/23/19 17 Oral surgery procedure completed Brittni pappas MA [facility] 04/13/2017 09:19:40 02/12/20 16 Colonoscopy completed Nroma Hilario [facility] 04/18/2017 10:15:28 07/07/20 15 Cancer Surgery completed Brittni pappas MA [facility] 04/16/2018 14:05:51 06/23/20 14 Angioplasty completed Brittni pappas, [facility] 04/16/2018 14:08:25 07/23/20 09 Carotid Endarterectomy completed Afia Polk MD [address], [place], [address], [facility] 07/17/2023 13:22:38 10/23/18 98 Partial removal of colon completed Brittni Gardner-Tyler os, [facility] 07/01/2014 09:23:44 Appendectomy completed Brittnigraciela Gardner-Tyler os, [facility] 07/01/2014 09:23:44 Imaging Results None recorded. Procedure Notes None recorded. Medical Equipment None Reported. Allergies Allergen ID Allergen Name Allergen Category Reaction Reaction Severity Criticality Documentation Date Start Date Code Code System Note Provider Name and Address Organization Details Recorded Time 13046 No known allergy (situatio n) Not available Not available Not available Not available 03/30/2021 [id number] SNOMED Mirna [place], [facility] 13:18:26 No known drug allergies Medications Name Sig Start Date Stop Date Status Note LastModified by Organization Details LastModified Time Prescript ion - Prior Authoriza tion Request 10/14 completed [place] redone through [facility] Not Available Not Available Not Available amoxicill in 500 mg capsule 02/10 completed Not Available Not Available Not Available latanopro st 0.005 % eye drops INSTILL ONE DROP TO BOTH EYES AT BEDTIME active Not Available Not Available No t Available atorvasta tin 80 mg tablet TAKE 1 TABLET BY MOUTH DAILY EVERY EVENING 2024 active Not Available Not Available Not Avai lable acetamino phen 325 mg tablet Take 2 tablets every day by oral route as directed . 11/29 completed Not Available Not Available Not Available carvedilo l 6.25 mg tablet Take 1 tablet twice a day by oral route with meals. 02/15 completed Not Available Not Available Not Available doxycycli ne hyclate 100 mg capsule Take 1 capsule twice a day by oral route for 7 days. 04/16 completed Not Available Not Available Not Available cefuroxim e axetil 250 mg tablet TAKE ONE TABLET BY MOUTH EVERY 12 HOURS FOR 7 DAYS 02/14 completed Not Available Not Available Not Available carvedilo l 12.5 mg tablet TAKE ONE TABLET BY MOUTH TWO TIMES A DAY 04/23 completed Not Available Not Available Not Available nicotine 14 mg/24 hr daily transderm al patch Apply 1 patch every day by transder mal route for 14 days. active Not Available Not Available No t Available trazodone 50 mg tablet Take 1-2 tablet(s ) every day at bedtime as needed for sleep by oral route. 10/14 completed Not Available Not Available Not Available triamcino lone acetonide 0.5 % topical cream Apply 1 applicat ion every day by topical route for 14 days. 11/27 completed Not Available Not Available Not Available cetirizin e 10 mg tablet Take 1 tablet every day by oral route in the evening for 28 days. 2023 active Not Available Not Available Not Avai lable azithromy alfredito 250 mg tablet TAKE TWO TABLETS BY MOUTH ONE DOSE ON THE FIRST DAY, THEN TAKE ONE TABLET DAILY THEREAFT ER. 09/13 completed Not Available Not Available Not Available nifedipin e ER 90 mg tablet,ex tended release Take 1 tablet every day by oral route for 90 days. 03/15 completed Not Available Not Available Not Available metoprolo l succinate ER 50 mg tablet,ex tended release 24 hr Take 2 tablets twice a day by oral route as directed for 28 days. 01/15 completed Not Available Not Available Not Available valacyclo vir 1 gram tablet Take by oral route for 7 days. 05/07 completed Not Available Not Available Not Available doxycycli ne hyclate 100 mg capsule,d elayed release TWO TIMES DAILY 08/28 completed RECORDED 08/28/20 12 11:02AM BY RYDER LOU MD, MEDICATI ON AUTO-HORTENSIA CTIVATIO N; Not Available Not Available Not Available fluconazo le 200 mg tablet TAKE ONE TABLET BY MOUTH EVERY DAY FOR 5 DAYS 05/28 completed Not Available Not Available Not Available lisinopri l 20 mg tablet TAKE ONE TABLET BY MOUTH TWICE A DAY 05/28 completed Not Available Not Available Not Available prednison e 20 mg tablet 2 tabs po qd x 5 days 07/05 completed Not Available Not Available Not Available fluoroura cil 5 % topical cream Apply 1 applicat ion twice a day by topical route as directed for 20 days. 12/14 completed Not Available Not Available Not Available metoprolo l succinate ER 100 mg tablet,ex tended release 24 hr Take 1 tablet every day by oral route for 90 days. active Not Available Not Available No t Available Lantus U-100 Insulin 100 unit/mL subcutane ous solution 08/24 completed Not Available Not Available Not Available hydralazi ne 25 mg tablet 03/08 completed Not Available Not Available Not Available triamcino lone acetonide 0.5 % topical ointment Apply 1 applicat ion twice a day by topical route for 14 days. 05/28 completed Not Available Not Available Not Available amlodipin e 2.5 mg tablet 10 mg by oral route. 08/24 completed Not Available Not Available Not Available metronida zole 500 mg tablet TAKE ONE TABLET BY MOUTH THREE TIMES A DAY FOR 10 DAYS 06/21 completed Not Available Not Available Not Available melatonin 3 mg tablet Take 2 tablets by oral route for 30 days. 05/28 completed Not Available Not Available Not Available nifedipin e ER 30 mg tablet,ex tended release TAKE TWO TABLETS BY MOUTH EVERY DAY FOR 30 DAYS. 02/24 completed Not Available Not Available Not Available clopidogr el 75 mg tablet TAKE ONE TABLET BY MOUTH EVERY DAY 03/[address] Lei Not Available Not Available Not Available amlodipin e 5 mg tablet 08/12 completed Not Available Not Available Not Available valacyclo vir 500 mg tablet EVERY 12 HOURS FOR RECURREN T HERPES GENITALI S 06/28 completed RECORDED 06/28/20 13 9:38AM BY BRITTNI DUMONT MA, OFFICE VISIT; Not Available Not Available Not Available aspirin 81 mg tablet,de layed release TAKE 1 TABLET BY MOUTH DAILY IN THE MORNING active Not Available Not Available No t Available tramadol 50 mg tablet TAKE ONE TABLET BY MOUTH EVERY 6 HOURS NEEDED FOR PAIN 02/09 completed Not Available Not Available Not Available pantopraz ole 20 mg tablet,de layed release TAKE ONE TABLET BY MOUTH EVERY DAY BEFORE MEALS 11/29 completed Not Available Not Available Not Available Nicoderm CQ 7 mg/24 hr daily transderm al patch Apply 1 patch every day by transder mal route for 30 days. 2013 active Not Available Not Available Not Avai lable amoxicill in 875 mg tablet TWO TIMES DAILY 08/07 completed RECORDED 09/02/20 10 2:22PM BY SOCRATES ZHOU PA-C, MEDICATI ON AUTO-HORTENSIA CTIVATIO N; Not Available Not Available Not Available famotidin e 20 mg tablet 08/24 completed Not Available Not Available Not Available magnesium oxide 400 mg (241.3 mg magnesium ) tablet Take 1 tablet every day by oral route as directed . 05/28 completed Not Available Not Available Not Available lorazepam 0.5 mg tablet Take 1 tablet as needed by oral route for 5 days. 09/13 completed Not Available Not Available Not Available temazepam 30 mg capsule Take 1 capsule every day by oral route. active Not Available Not Available No t Available OneTouch Ultra Test strips Take 1 strip 4 times a day by miscell. route for 90 days. active Not Available Not Available No t Available imiquimod 5 % topical cream packet APPLY TO THE AFFECTED AREA(S) BY TOPICAL ROUTE THREE TIMES DAILY active Not Available Not Available No t Available dexametha sone 1 mg tablet TAKE ONE TABLET BY MOUTH EVERY DAY 07/17 completed Not Available Not Available Not Available baclofen 10 mg tablet 08/24 completed Not Available Not Available Not Available amlodipin e 10 mg tablet TAKE 1 TABLET BY MOUTH DAILY IN THE MORNING active Not Available Not Available No t Available doxycycli ne monohydra te 100 mg capsule 05/18 completed Not Available Not Available Not Available insulin aspart U-100 100 unit/mL subcutane ous solution active Not Available Not Available Not Available hydrocodo ne 7.5 mg-acetam inophen 325 mg tablet 04/13 completed Not Available Not Available Not Available cephalexi n 500 mg capsule TAKE ONE CAPSULE BY MOUTH TWICE A DAY FOR 7 DAYS (WITH FOOD OR MILK). 02/09 completed Not Available Not Available Not Available paroxetin e 20 mg tablet Take 1 tablet every day by oral route as directed . 02/09 completed Not Available Not Available Not Available dextrose 5 % and 0.2 % sodium chloride intraveno us solution 81 mg by intraven . route. 04/30 completed Not Available Not Available Not Available oseltamiv ir 75 mg capsule Take 1 capsule twice a day by oral route for 5 days. 12/17 completed Not Available Not Available Not Available clotrimaz ole-betam ethasone 1 %-0.05 % topical cream APPLY TO AFFECTED AND SURROUND ING AREAS OF THE SKIN 2 TIMES A DAY (IN THE MORNING AND IN THE EVENING) FOR 2 WEEKS 05/07 completed Not Available Not Available Not Available lisinopri l 10 mg tablet 1 {tbl} by oral route. 03/08 completed Not Available Not Available Not Available Advair Diskus 250 mcg-50 mcg/dose powder for inhalatio n Inhale 1 puff twice a day by inhalati on route for 30 days. 10/19 completed Not Available Not Available Not Available nicotine 21 mg/24 hr daily transderm al patch APPLY 1 PATCH EVERYDAY BY TRANSDER MAL ROUTE FOR 14 DAYS 2013 active Not Available Not Available Not Avai lable nitroglyc manny 0.4 mg sublingua l tablet Place 1 tablet as needed by sublingu al route. active Not Available Not Available No t Available omeprazol e 20 mg capsule,d elayed release TAKE 1 CAPSULE BY MOUTH DAILY EVERY MORNING. active Not Available Not Available No t Available aspirin,b uffered (calcium carb-mag- aluminum) 81 mg oral del rel tablet Take 81 mg by oral route. 05/18 completed Not Available Not Available Not Available aspirin 81 mg chewable tablet CHEW AND SWALLOW ONE TABLET BY MOUTH EVERY DAY 04/28 completed Not Available Not Available Not Available dorzolami de 22.3 mg-timolo l 6.8 mg/mL eye drops INSTILL ONE DROP TO BOTH EYES TWICE A DAY 12/06 completed Not Available Not Available Not Available hydralazi ne 50 mg tablet TAKE 1 TABLET BY MOUTH DAILY AT BEDTIME active Not Available Not Available No t Available pravastat in 20 mg tablet DAILY 07/04 completed Not Available Not Available Not Available lisinopri l 5 mg tablet TAKE ONE TABLET BY MOUTH TWICE A DAY 07/06 completed Not Available Not Available Not Available albuterol 90 mcg/actua tion aerosol inhaler 90 mcg/actu ats by inhalati on route. 03/26 completed Not Available Not Available Not Available aluminum- mag hydroxide -simethic one 200 mg-200 mg-20 mg/5 mL oral susp Take 30 mL every day by oral route as directed . 05/28 completed Not Available Not Available Not Available insulin lispro (U-100) 100 unit/mL subcutane ous solution Inject 1 unit as needed by subcutan eous route as directed . 05/28 completed Not Available Not Available Not Available albuterol sulfate HFA 90 mcg/actua tion aerosol inhaler Inhale 2 puff(s) every 4 hours by inhalati on route as needed.
active Not Available Not Available No t Available Vitamin D2 1,250 mcg (50,000 unit) capsule 05/17 completed Not Available Not Available Not Available nifedipin e ER 60 mg tablet,ex tended release 2 tablets bid 04/23 completed Not Available Not Available Not Available ondansetr on 4 mg disintegr ating tablet 08/24 completed Not Available Not Available Not Available doxycycli ne hyclate 100 mg tablet Take 1 tablet twice a day by oral route for 7 days. 07/05 completed Not Available Not Available Not Available spironola ctone 50 mg tablet TAKE ONE TABLET BY MOUTH EVERY DAY 04/23 completed Not Available Not Available Not Available dorzolami de 2 % eye drops INSTILL 1 DROP INTO BOTH EYE(S) BY OPHTHALM IC ROUTE 2 TIMES PER DAY 04/13 completed Not Available Not Available Not Available Benadryl 25 mg capsule Take 2 capsules every day by oral route at bedtime. 10/15 completed Not Available Not Available Not Available neomycin 3.5 mg/g-poly myxin B 10,000 unit/g-de xameth 0.1 % eye oint APPLY A 1/4 INCH STRIP TO THE LEFT EYE THREE TIMES A DAY; IF CONDITIO N DOSE NOT IMPROVE IN 3-5 DAYS OR WORSENS - CONTACT PROVIDER . 12/06 completed Not Available Not Available Not Available neomycin- polymyxin -hydrocor t 3.5 mg-10,000 unit/mL-1 % ear drops,ligia p INSTILL 4 DROPS INTO THE AFFECTED EAR(S) 3 TO 4 TIMES A DAY FOR 1 WEEK. 11/29 completed Not Available Not Available Not Available Benadryl Allergy 25 mg tablet 1 {tbl} every 24 hours by oral route. active Not Available Not Available No t Available albuterol (refill) 90 mcg/actua tion aerosol inhaler EVERY FOUR HOURS, NEEDED 03/01 completed RECORDED 03/01/20 13 10:20AM BY ZULEIKA KAN MA, OFFICE VISIT; Not Available Not Available Not Available escitalop alexandra 10 mg tablet Take 1 {tbl} by oral route. 07/19 completed Not Available Not Available Not Available escitalop alexandra 20 mg tablet TAKE 1 TABLET BY MOUTH DAILYIN THE MORNING 2024 active Not Available Not Available Not Avai lable ezetimibe 10 mg tablet TAKE 1 TABLET BY MOUTH DAILY EVERY EVENING active Not Available Not Available No t Available nicotine 21mg/24hr -14mg/24h r-7mg/24h r daily transderm patches,s equentl Dose: apply 21 mg patch qd x6wk, then apply 14 mg patch qd x2wk, then apply 7 mg patch qd x2wk; Info: stop cigarett e use at tx onset 12/22 completed Not Available Not Available Not Available Novolog FlexPen U-100 Insulin aspart 100 unit/mL (3 mL) subcutane ous sliding scale active from endo Not Available Not Available Not Available Tylenol PM Extra Strength 25 mg-500 mg tablet Take 2 tablets every day by oral route at bedtime. 08/12 completed Not Available Not Available Not Available metoprolo l tartrate 25 mg tablet Take 1 {tbl} twice a day by oral route. 07/19 completed Not Available Not Available Not Available emtricita bine 200 mg-tenofo vir disoproxi l fumarate 300 mg tablet 05/10 completed Not Available Not Available Not Available entecavir 0.5 mg tablet 1 mg by oral route. active Not Available Not Available No t Available melatonin 3mg , 2 tabs as directed 04/28 completed Not Available Not Available Not Available Milk of Magnesia use as directed 04/28 completed Not Available Not Available Not Available acetamino phen 325 mg, 2 tabs, prn 03/15 completed Not Available Not Available Not Available aspirin 81mg , 1 tablet daily 02/09 completed Not Available Not Available Not Available Tridil 80 mg. 04/30 completed Not Available Not Available Not Available Vitamins B Complex DAILY 06/20 completed RECORDED 06/20/20 11 10:48AM BY BRITTNI DUMONT MA, OFFICE VISIT; Not Available Not Available Not Available Proscar 0.005 %s. 09/20 completed Not Available Not Available Not Available Allerest 90 mcg/actu ats. 04/30 completed Not Available Not Available Not Available Clyman-3 DAILY 06/28 completed RECORDED 06/28/20 13 9:39AM BY BRITTNI DUMONT MA, OFFICE VISIT; Not Available Not Available Not Available Vitamin D3 2000 units as directed 05/28 completed Not Available Not Available Not Available Xalatan 1 [drp]. 08/12 completed Not Available Not Available Not Available insulin glargine 100 units / ml 14 units in am 05/28 completed Not Available Not Available Not Available varenicli ne tartrate 1 mg tablet TWO TIMES DAILY 10/02 completed RECORDED 02/06/20 11 11:15AM BY LIMA ARROYO MD, MEDICATI ON AUTO-HORTENSIA CTIVATIO N; Not Available Not Available Not Available Zostavax (PF) 19,400 unit/0.65 mL subcutane ous suspensio n 10/14 completed Not Available Not Available Not Available Chantix Starting Month Shawn 0.5 mg (11)-1 mg (42) tablets in dose pack BID 07/20 completed RECORDED 07/25/20 10 7:44PM BY RYDER LOU MD, MEDICATI ON AUTO-HORTENSIA CTIVATIO N; Not Available Not Available Not Available Levemir U-100 Insulin 16U QAM and 32U QPM 08/10 completed Not Available Not Available Not Available cholecalc iferol (vitamin D3) 25 mcg (1,000 unit) tablet DAILY 06/20 completed RECORDED 06/20/20 11 10:48AM BY BRITTNI DUMONT MA, OFFICE VISIT; Not Available Not Available Not Available Symbicort 160 mcg-4.5 mcg/actua tion HFA aerosol inhaler Inhale 2 puffs twice a day by inhalati on route as directed for 30 days. 05/28 completed Not Available Not Available Not Available budesonid e-formote rol HFA 80 mcg-4.5 mcg/actua tion aerosol inhaler Inhale 2 puffs twice a day by inhalati on route. active Not Available Not Available No t Available Novofine 32 32 gauge x 1/4 needle Take 1 needle every day by miscell. route. active from endo Not Available Not Available Not Available melatonin 5 mg tablet TAKE 1 TABLET BY MOUTH DAILY AT BEDTIME 2023 active Not Available Not Available Not Avai lable cholecalc iferol (vitamin D3) 50 mcg (2,000 unit) capsule TAKE 1 CAPSULE BY MOUTH EVERY MORNING 2024 active Not Available Not Available Not Avai lable cholecalc iferol (vitamin D3) 50 mcg (2,000 unit) tablet TAKE ONE TABLET BY MOUTH EVERY DAY 04/28 completed Not Available Not Available Not Available Brilinta 90 mg tablet Take 90 mg by oral route. 07/19 completed Not Available Not Available Not Available TERESA Cream topical emulsion active Not Available Not Available Not Available AndroGel 1.62 % (20.25 mg/1.25 gram) transderm al gel packet Apply 1 packet every day by transder mal route as directed for 30 days. 10/15 completed Per Endo Not Available Not Available Not Available Farxiga 10 mg tablet 10 mg by oral route. 03/27 completed Not Available Not Available Not Available Levemir FlexTouch U-100 Insulin 100 unit/mL (3 mL) subcutane ous pen Inject 16 units 3 times a day by sub-q route for 90 days. 05/17 completed Not Available Not Available Not Available Brilinta 60 mg tablet TAKE 1 TABLET BY MOUTH TWICE DAILY. active Not Available Not Available No t Available insulin degludec (U-100) 100 unit/mL (3 mL) subcutane ous pen Inject 45 units every day by subcutan eous route in the morning for 30 days. 07/19 completed Not Available Not Available Not Available Tresiba FlexTouch U-200 insulin 200 unit/mL (3 mL) subcutane ous pen 40 units daily active Not Available Not Available No t Available Descovy 200 mg-25 mg tablet Take 1 tablet every day by oral route. 04/23 completed Not Available Not Available Not Available Descovy 1 1. 08/12 completed Not Available Not Available Not Available Flonase Sensimist 27.5 mcg/actua tion nasal spray,ligia pension Take 2 sprays every day by nasal route. 08/24 completed Not Available Not Available Not Available Shingrix (PF) 50 mcg/0.5 mL intramusc ular suspensio n, kit 05/25 completed Not Available Not Available Not Available metoprolo l succinate ER 100 mg capsule sprinkle, ext. release 24 hr Take 1 capsule twice a day by oral route. active Not Available Not Available No t Available OneTouch Ultra Blue Test Strip Take 1 strip 3 times a day by miscell. route for 25 days. active from endo Not Available Not Available Not Available latanopro st (PF) 0.005 % eye drops 05/18 completed Not Available Not Available Not Available magnesium 400 mg (as magnesium oxide) tablet 1 {tbl} by oral route. 08/24 completed Not Available Not Available Not Available FreeStyle David 14 Day [place]far[place] 12/22 completed Not Available Not Available Not Available FreeStyle David 14 Day Sensor kit 12/22 completed Not Available Not Available Not Available Fluzone High-Dose 2019-20 (PF) 180 mcg/0.5 mL intramusc ular syringe VACCINAT ION ADMINIST ERED BY ASHLEE VILLASEÑOR 05/25 completed Not Available Not Available Not Available CeQur Simplicit y 2 unit device active Not Available Not Available Not Available CeQur Simplicit y Cardboard Cutter active Not Available Not Available Not Available Flowflex COVID-19 Antigen Home Test kit USE DIRECTED PER MANUFACT URER INSTRUCT IONS TO TEST FOR COVID-19 08/12 completed Not Available Not Available Not Available Paxlovid 300 mg (150 mg x 2)-100 mg tablets in a dose pack TAKE THREE TABLETS BY MOUTH TWICE A DAY FOR 5 DAYS DIRECTED FOR 5 DAYS 12/14 completed Not Available Not Available Not Available Ozempic 0.25 mg or 0.5 mg (2 mg/3 mL) subcutane ous pen injector INJECT 0.5 MG SUBCUTAN EOUSLY EVERY WEEK 11/27 completed Not Available Not Available Not Available Vitals Date Recorded Body height Body mass index (BMI) Body weight Heart rate Oxygen saturation Oxygen saturation in Arterial blood by Pulse oximetry Body temperature Systolic blood pressure Diastolic blood pressure Provider Name and Address Organization Details Last Updated DateTime 5 171.45 cm 23.9 kg/m2 70857.8 2 g 56 /min 98 % 98 % 98.1 [degF] 130 mm[Hg] 70 mm[Hg] Vanessa Morataya [facility] [place] 5 10:38:13 Social History Question Answer Notes LastModified by Organizat ion Details LastModified Time Tobacco Smoking Status Former Smoker January 12 2021 [facility] [place] [facility]/15/2021 14:03:23 Do You Have An Advance Directive? No Information not available 07/17/2023 What Is Your Level Of Alcohol Consumption? Occasional Approx 2 Drink Per Month [email or web address] Information not available 10/17/2017 Is Blood Transfusion Acceptable In An Emergency? Yes Information not available 08/07/2015 What Is Your Level Of Caffeine Consumption? Moderate 1 Cup Of Coffee Daily Information not available 07/17/2023 How Much Tobacco Do You Chew? None Information not available 08/07/2015 Are You Currently Employed? No Retired Information not available 07/01/2014 What Type Of Diet Are You Following? DIABETIC Information not available 08/12/2022 Which Illicit Or Recreational Drugs Have You Used? None Information not available 07/01/2014 Do You Or Have You Ever Used E-cigarettes Or Vape? 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 1-5yearssince lastcigarette Information not available 08/12/2022 Are There Any Guns Present In Your Home? No Information not available 08/12/2022 Do You Take Precautions To Prevent Distracted Driving? Yes Information not available 08/07/2015 How Often Do You Need To Have Someone Help You When You Read Instructions, Pamphlets, Or Other Written Material From Your Doctor Or Pharmacy? Never Information not available 08/07/2015 Have You Served In The ? No [email or web address] Information not available 10/14/2016 Have You Or Anyone In Your Household Had Any Of The Following Symptoms In The Last 14 Days: Sore Throat, Cough, Chills, Body Aches For Unknown Reasons, Shortness Of Breath For Unknown Reasons, Loss Of Smell, Loss Of Taste, Fever At Or Greater Than 100 Degrees Fahrenheit? No RUSBASEchultzki Information not available 05/25/2020 Are You Or Anyone In Your Household A Health Care Provider Or Emergency Responder? No RUSBASEchTianjin [employer] Information not available 05/25/2020 To The Best Of Your Knowledge Have You Been In Close Proximity To Any Individual Who Tested Positive For COVID-19? No [email or web address] Information not available 07/19/2024 *AWV ONLY* Are You Presently Prescribed Opioid Medication By PCP Or Specialist? If YES -Provider Assess The Benefit For Other, Non-opioid Pain Therapies Instead, Even If The Patient Does Not Have OUD But Is Possibly At Risk. No Information not available 07/06/2020 Have You Recently Traveled To A [facility] High Risk Area Or Gathering In The Last 10 Days? No Information not available 02/24/2021 What Was The Date Of Your Most Recent Tobacco Screening? 07/19/2024 [email or web address] Information not available 07/19/2024 How Many Children Do You Have? 0 Information not available 08/12/2022 What Is Your Current Pack Years? 20-29packyear s Information not available 08/12/2022 Do You Use Protection During Sex? Always Information not available 08/07/2015 Do You Use Your Seat Belt Or Car Seat Routinely? Yes Information not available 08/12/2022 Seat Belts Used Routinely No Information not available 07/17/2023 Are You Sexually Active? No Information not available 08/12/2022 Do You Have Smoke And Carbon Monoxide Detectors In Your Home? Yes Information not available 08/12/2022 At What Age Did You Start Smoking Tobacco? 16 Information not available 08/12/2022 Are You Passively Exposed To Smoke? No Information not available 08/12/2022 Do You Or Have You Ever Used Smokeless Tobacco? Never Used Smokeless Tobacco Information not available 12/23/2019 How Much Tobacco Do You Smoke? 1 PPD Information not available 07/01/2014 Do You Use Any Illicit Or Recreational Drugs? No Information not available 08/12/2022 Do You Use Sunscreen Routinely? No Information not available 08/07/2015 How Many Years Have You Smoked Tobacco? 43 Information not available 07/06/2020 Do You Or Have You Ever Used Any Other Forms Of Tobacco Or Nicotine? No Information not available 08/12/2022 Sex: Unknown Functional Status Question Answer Note LastModified by Organizat ion Details LastModified Time Are you able to walk? YESASSIST Information not available 08/12/2022 Are you able to care for yourself? No sister, brother inlaw, nephew, and and 2 boys Information not available 07/17/2023 What is your exercise level? None Information not available 07/17/2023 Mental Status None recorded. Family History Relationship Description Onset Age of this Age Resolved Age Notes LastModified by Organization Details LastModified Time Father Primary malignant neoplasm of pharynx abolcun Not available 2021 10:10:27 Father Myocardial infarction abolcun Not available 08/12 10:10:27 Father Abdominal aortic aneurysm abolcun Not available 2021 10:10:27 Father Alcohol abuse abolcun Not available 2021 10:10:27 Father Hypertensive disorder ckokar Not available 2022 13:21:41 Mother Hypercholest erolemia phelmuth Not available 2014 16:19:05 Mother Basal cell carcinoma of skin abolcun Not available 2021 10:10:27 Mother Hypertensive disorder ckokar Not available 2022 13:21:37 Maternal Grandfather Myocardial infarction abolcun Not available 08/12 10:10:27 Maternal Uncle Chronic obstructive pulmonary disease abolcun Not available 2021 10:10:27 Maternal Uncle Depressive disorder abolcun Not available 2021 10:10:27 Maternal Uncle Alcohol abuse abolcun Not available 2021 10:10:27 Maternal Aunt Malignant tumor of breast abolcun Not available 2021 10:10:27 Medical History Condition Response Other N Gout N Blood Diseases N Kidney Stones N Hyperthyroidism N Breast Cancer N Lung Disease N COPD N Depression N Hypothyroidism N Defects or Inherited Disease N Anesthesia Complications N Headaches/Migraines N Varicose Veins N Anxiety Disorder Y Obesity N Vision or Eye Problems N Arthritis N Head Injury/Concussion N Polyps N Infertility N Congenital Anomalies N Acid Reflux (GERD) Y Cancer N Stroke Y ADHD N Endometriosis N High Cholesterol N Liver Disease N Fibromyalgia N Kidney Disease Y Heart Problems N Ear or Hearing Problems N Hospitalizations Y Thyroid Problems N GI Problems N Acne N Skin Problems N Eating Disorder N Anemia N Constipation N Bladder Problems N Mental Illness N Ovarian Cancer N Diabetes Y Blood Transfusions N Seizures/Epilepsy N Tuberculosis N AIDS/HIV N Congestive Heart Failure (CHF) N Eczema N Diverticulitis Y Abuse/Domestic Violence N Allergies N Asthma N Reflux/GERD Y Hepatitis Y Pulmonary Embolism N Hypertension Y Osteoporosis N Chicken Pox N Autism Spectrum Disorder (ASD) N Immunizations Vaccine Type Date Status Note Provider Nam e and Address Organization Details Recorded Time zoster live 6 completed JENIFER Chavez [facility] 12/06/2024 10:31:26 zoster recombinant 9 completed JENIFER Chavez [facility] 11/27/2023 14:04:02 Influenza, high-dose, trivalent, PF 9 completed JENIFER Chavez [facility] 12/06/2024 10:31:26 zoster recombinant 0 completed JENIFER Chavez [facility] 12/06/2024 10:31:25 COVID-19, mRNA, LNP-S, PF, 30 mcg/0.3 mL dose 1 completed Vanessa WanJENIFER arroyo [facility] 12/06/2024 10:31:25 COVID-19, mRNA, LNP-S, PF, 30 mcg/0.3 mL dose [facility] [place] 10:31:25 influenza, seasonal, intradermal, preservative free 3 completed JENIFER Chavez [facility] 12/06/2024 10:31:26 Influenza, split virus, trivalent, preservative 2 completed JENIFER Chavez [facility] 12/06/2024 10:31:26 COVID-19, mRNA, LNP-S, PF, 30 mcg/0.3 mL dose 1 [facility] [place]24 10:31:25 Tdap 7 completed Vanessa KeeganJENIFER arroyo [facility] 12/06/2024 10:31:25 Influenza, split virus, quadrivalent, preservative 1 completed JENIFER Chavez, [facility] 12/06/2024 10:31:25 Influenza, high-dose, trivalent, PF 8 completed JENIFER Chavez, [facility] 12/06/2024 10:31:26 Influenza, split virus, quadrivalent, PF 5 completed JENIFER Chavez, [facility] 12/06/2024 10:31:26 Pneumococcal conjugate PCV 13 6 completed JENIFER Chavez, [facility] 12/06/2024 10:31:26 Tdap 8 completed JENIFER Chavez, [facility] 12/06/2024 10:31:25 Influenza, high-dose, quadrivalent, PF 0 completed JENIFER Chavez, [facility] 12/06/2024 10:31:25 Influenza, split virus, quadrivalent, preservative 2 completed JENIFER Chavez, [facility] 11/27/2023 14:04:02 Influenza, split virus, quadrivalent, PF 6 completed JENIFER Chavez, [facility] 12/06/2024 10:31:26 Influenza, split virus, trivalent, PF 4 completed JENIFER Chavez, [facility] 12/06/2024 10:31:26 COVID-19, mRNA, LNP-S, bivalent, PF, 30 mcg/0.3 mL dose 2 completed JENIFER Chavez, [facility] 12/06/2024 10:31:25 Influenza, high-dose, trivalent, PF 7 completed JENIFER Chavez, [facility] 12/06/2024 10:31:26 pneumococcal polysaccharide PPV23 7 completed JENIFER Chavez, [facility] 12/06/2024 10:31:25 Pneumococcal conjugate PCV20, polysaccharide [id number] conjugate, adjuvant, PF 3 completed JENIFER Morejon, [facility] 12/01/2023 13:07:42 RSV, bivalent, protein subunit RSVpreF, diluent reconstituted, 0.5 mL, PF 3 completed JENIFER Morejon, [facility] 12/01/2023 13:07:53 COVID-19, mRNA, LNP-S, PF, margie-sucrose, 30 mcg/0.3 mL 3 completed JENIFER Morejon, [facility] 12/01/2023 13:07:53 zoster live 9 completed JENIFER Chavez, [facility] 12/06/2024 10:31:26 Influenza, split virus, trivalent, preservative 1 completed JENIFER Marquez, [facility] 05/17/2022 11:07:39 Influenza, split virus, trivalent, preservative 2 completed JENIFER Pennington, [facility] 08/12/2022 09:26:37 influenza, seasonal, intradermal, preservative free 3 completed JENIFER Pennington, [facility] 08/12/2022 09:26:36 Influenza, high-dose, quadrivalent, PF 3 completed JENIFER Irving, [facility] 07/17/2023 14:03:22 Influenza, high-dose, trivalent, PF 4 completed Afia Polk MD [address], [address], [facility] 07/19/2024 12:03:19 Past Encounters Encounter ID Performer Location Encounter Start Date Encounter Closed Date Diagnosis/Indication Diagnosis SNOMED-CT Code Diagnosis ICD10 Code Diagnosis Note [id number] Afia Polk MD Main Office [address] [place] [address] 12/06/2024 10:24:28 12/06/2024 11:10:28 Pituitary microadenoma 768402876 D35.2 Seeing endo. Chronic ty pe B viral hepatitis 23847858 B18.1 Followed by ID Hemiplegia and/or hemiparesis following stroke 0957494190 9107 I69.359 01/2021 .Right-hem ispheric CVA with left-sided hemiplegia (arm most affected) Chronic ob structive pulmonary disease 84681215 J44.9 Stable on present meds Chronic ki dney disease stage 3B 512722730 N18.32 Follows nephrology . Coronary arteriosclerosis 60987783 I25.[address] recommends DAPT for rest of life. Essential hypertension 09963475 I10 Stable on present medication s Hyperglyce arti due to type 2 diabetes mellitus 4205497490 98677 E11.65 Follows zijwF5h and microalbum in and tx per endo.Had c-peptide done suggesting he is type 2 dm and not [address]. Insulin tr eated type 2 diabetes mellitus 056692606 Z79.4 Major depr ession in remission 66148425 F32.5 Stable on lexapro. Health Concerns Section Related Observation LastModified by Organization Detai ls LastModified Time None Recorded Concern Status LastModified by Organization Details LastModified Time None Recorded Payers Encounter Date Sequence Insurance Name Policy Number Policy Garcia Covered Member ID Garcia Member ID Guarantor Name 12/06/2024 2 [place] [id number] Phan Gipson [id number] Phan Gipson 12/06/2024 1 [place] [employer] Phan Gipson [id number] Phan Gipson Notes Date Note Type Note Provider Name and Address Organization Details Recorded Time 12/06/2024 text/html Follow up for chronic health. Afia Polk MD [address], [place], [address], [facility] 12/06/2024 12:29:39 12/06/2024 text/html Coronary Artery Disease F/UReported bypatient.Severity:s ymptoms are improving Associated Symptoms:no chest pain; no neck pain; no left arm pain; no dyspnea with exertion; no sweating; no nausea; no stressDiabetes F/UReported bypatient.Context:no rmal range of home blood sugars (in the low 100s); seeing eye doctor regularly; checking feet regularly Associated Symptoms:no weight loss; no dizziness; no sweats; no headaches; no confusion; no increased thirst; no increased appetite; no increased urination; no blurred vision; no numbness of feet; no calluses on feetNotes:Sugars much better with new CeQur, he tells me sugars in 120'sHypertension F/UReported bypatient.Associated Symptoms:no dizziness; no lightheadedness; no chest pain; no shortness of breath; no palpitations; no edema; no calf pain with exertion Lifestyle:limiting/a voiding salt Medications:taking medications as directed; no side effects from medication Afia Polk MD [address], [address], [facility] 12/06/2024 12:29:39
== END 2025-01-03 13:22 | disposition home or self-care (01) ==
LOC: HO.ENCR 12:59
PROVIDERS: PCP Family Medicine; Visit Provider Physician Assistant
DX: E11.65 Type 2 diabetes mellitus with hyperglycemia (principal); I10 Essential (primary) hypertension

== ENCOUNTER → 2025-01-03 12:59 | Outpatient (BNVA) | payer MEDICARE, BC, SELFPAY | PROVIDERS: PCP Family Medicine; Visit Provider Physician Assistant | DX: E11.65 Type 2 diabetes mellitus with hyperglycemia (principal); I10 Essential (primary) hypertension | CPT/HCPCS: 82947; 99212 ==

== ENCOUNTER 2025-01-24 11:13 | Outpatient (AMB) | payer MEDICARE, BC, SELFPAY ==
--- NOTE | 2025-01-24 11:15 | A.OFFVIS_ITS ---
Vital Signs 01/24/25 11:16 Height 5 ft 7.2 in Weight 158 lb 11.725 oz BMI 24.7 BP 120/70 Blood Pressure Location Rt brachial Position Sitting Pulse 65 Pulse Source Pulse Oximeter Pulse Oximetry (%) 98 Oxygen Delivery Method Room Air Intake Visit Reasons: DM-manish hoffman Intake Note: Patient presents today for a follow-up for Type 1 Diabetes Mellitus: Last Diabetic eye exam was on: 07/2024 Last Podiatry exam was on: Does not see a Set Up Mechanic Automatic Line Most recent HbA1c: 9.1%, 11/06/2024 Random Glucose- 186 mg/dL, Today Helicopter Technician Required: No Accompanied by: Self / Same As Patient Allergies No Known Allergies Allergy (Verified 02/14/25 10:40) HPI Comments Details: 73 year-old male with a past medical history of chronic hepatitis-B, diabetes recently confirmed as type 2 not type 1,, hypertension, HLD, and a Pituitary macroadenoma. He is seen in follow up today. He was last seen 1 month ago. He has been trained on a CeQur insulin 4 day patch pump. He was previously followed by an inspector wire rope Dr. Enriquez in [facility] for his diabetes. He who was last seen by Dr. Ramos 05/2024 for diabetes and by Dr. Ramos 12/2023 for pituitary microadenoma which will not be addressed today. Most recent A1C 08/07/24 9.1%, 04/2024 8.7%, and 12/2023 9.8%. He has been seen by Barbra ROSE for potential pump December/2023 but had decided to see if Tresiba would lower his A1c. 2019 Negative gada and insulin antibodies, low c peptide 0.77 Outside labs from [facility] reviewed 08/09/2024 Fasting C-peptide 1.6 [place] less than 5 Anti pancreatic islet cell antibodies negative He had tried Ozempic but had diarrhea. Mounjaro 2.5 mg was prescribed but insurance denied. Was on metformin when he was first diagnosed. Was diagnosed approximately 2003 Current diabetes regimen: Tresiba 40 units NovoLog 18 units twice daily with meals (9 clicks) Can dose with CeQur 2 units between meals as needed Denies retinopathy: Has eyes checked yearly, last eye exam: HAD cataract surgery, was seen 12/18/24 with f/u in 4 months Denies Neuropathy: no numbness, tingling or crampng. 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 He developed orthostatic hypotension in 2020 and was having low BP with LEE/ARB so these were stopped. Sees Dr. Lei who has discussed going to [facility] or [facility]. Has HLD, on Atorvastatin 80 mg PO daily and Zetia 10 mg PO daily. LDL 45 09/16 Has history of CAD with triple vessel PTCA He had a CVA in 2020. He is followed by vascular surgeon at [facility] for AAA and stenosis of the carotid arteries Diet: balanced Exercise:walks with cane Outside labs from [facility] reviewed 08/09/2024 Fasting C-peptide 1.6 [place] less than 5 Anti pancreatic islet cell antibodies negative [facility] cholesterol 95 [facility] History Diabetes type 2 T1DM (type 1 diabetes mellitus) Wears dentures Chronic hepatitis B Paralysis of left upper extremity Ambulates with cane Glaucoma Diverticulosis Diabetes Bilateral cataracts Uncontrolled diabetes mellitus with hyperglycemia History of stent insertion of renal artery CAD (coronary artery disease) Carotid artery disease Pituitary adenoma Cerebral microvascular disease Multiple cerebral infarctions Left hemiparesis CKD (chronic kidney disease) stage 3, GFR 30-59 ml/min AAA (abdominal aortic aneurysm) Left renal artery stenosis Hypertensive urgency CKD (chronic kidney disease) stage 3, GFR 30-59 ml/min Peroneal neuropathy Hypertension Encounter for loop recorder check Stroke due to stenosis of right carotid artery Stroke Status post placement of implantable loop recorder CVA (cerebral vascular accident) (~2020) TIA (transient ischemic attack) (~2020) Vitamin D deficiency Pituitary macroadenoma HLD (hyperlipidemia) HTN (hypertension) Surgical History Cataract extraction status of left eye (10/07/24) History of partial colectomy (~1997) History of heart artery stent History of carotid endarterectomy Family History Father CVD (cardiovascular disease) AAA (abdominal aortic aneurysm) Mother No problems noted. Social History Household Members: Family Housing: House Are you a primary medicare sales representative to a significant other at home: No Do you presently have visiting nurse or other home services: No Alcohol intake: never Comment: bed rest, unable to ambulate per md Patient Tobacco Use Status: Former Tobacco user Tobacco use type: Cigarette Years Smoked: 50+ Second Hand Smoke Exposure: No Use of substances other than those prescribed or required for medical reasons: No Currently Displaying Signs/Symptoms of Drug Intoxication Withdrawal: No Have you been hit, kicked, punched, or otherwise hurt by someone within the past year? If so, by whom?: No Do you feel safe in your current relationship?: Yes Is there a partner from a previous relationship who is making you feel unsafe now?: No Are you made to feel afraid or neglected: No Advance Directives: Yes Advance Directives on File: Yes Advance Directives Date on File: 01/09/21 Do you have a plan to hurt others: No Plan Recently lost weight without trying: No Nutrition Risks: No Nutritional Risk service: No Current occupational status: unemployed and retired Physical Exam Vital Signs: Last Vital Signs Pulse 65 01/24/25 11:16 BP 120/70 01/24/25 11:16 Pulse Ox 98 01/24/25 11:16 Oxygen Delivery Method Room Air 01/24/25 11:16 BMI result Body Mass Index 24.7 Const Other: Absence of Cushingoid features. Absence of acromegalic features. Neck exam reveals nl size thyroid about 15 gms. No thyroid nodules palpable. Heart S1 S2, Reg R/R. No M/R G. Skin exam reveals absence of vitiligo or acanthosis nigricans. left hemiparesis, walks with cane Visual exam of foot performed. No ulcerations or open lesions. No inter digit maceration or fissuring. No onychomycosis, no callouses. Sensation intact to monofilament exam. Vibratory sensation is diminished right foot with 128 Hz tuning fork. Results Reviewed Results Reviewed: Laboratory Last Values Glucose (Clinic) 186 mg/dL (60-115) H 01/24/25 11:23 Assessment & Plan Assessment & Plan (1) Uncontrolled diabetes mellitus with hyperglycemia: Code(s): E11.65 - Type 2 diabetes mellitus with hyperglycemia Category: Medical Plan: 74 year old male with type 2 diabetes, Continue Tresiba. Use Cequr tid. Would recommend continuing CeQur wih this patient as he has prior h/o cva and hemiparesis, Inserting device every 4 days and using click device has been much easier for this patient given his physical limitations. The patient had an opportunity to ask questions regarding treatment plan. The patient expressed understanding and agreement with the above treatment plan. The patient is aware they should contact our office by phone for worsening glucose readings or for any low blood sugars which may warrant a change in diabetes medication. Compliance is encouraged with medications and any followup testing/consults which may have been ordered. Patient Instructions: The patient was counseled to achieve a target A1C of 7% (154 avg). Fasting blood sugars should be 90-130 in the morning and less than 180 two hours after meals. Reviewed the relationship between poor diabetic control and the development of complications. Take 15 carb carbohydrate grams to treat a low sugar (3-4 glucose tablets, half a glass of juice or 15 carbohydrate grams of soft candy such as gummie snacks). Recheck your sugar in 15 minutes and re-treat again with 15 carbohydrate grams if low or still with symptoms. Do not drive a car or operate machinery if you do not know what your blood sugar is, if it is low or in excess of 300. Coding Level of Care Code Est Pt Level 4 (54800) Complex EM visit Add On G2211 Diagnoses Uncontrolled diabetes mellitus with hyperglycemia E11.65
[2025-01-24 11:16] VITALS: BP 120/70; PULSE 65; O2SAT 98; BMI 24.7
[2025-01-24 11:27] LABS: Glucose, Whole Blood 186 mg/dL (60-115)
--- OUTSIDE RECORDS SUMMARY | 2025-01-24 13:05 | XMS_ITS | Patient Health Record ---
Author Organization [facility] Address [address] [place] [address] Care Team Providers Care Senior Backup Administrator Name Role Phone Afia Cabrera Primary Care Provider Mikey Figueredo [phone] Allergies No Known Allergies Results Component Value Reference Range Notes Leukocytes Stool Qualitative Reviewed date:10/03/2024 04:38:18 PM Interpretation: Performing Lab:[address] [address] Notes/Report: Leukocytes Stool Qualitative NEGATIVE NEGATIVE Giardia Ag Stool EIA Reviewed date:10/09/2024 01:43:34 PM Interpretation: Performing Lab:[address] [id number] Notes/Report: Giardia Ag Stool EIA SEE NOTE GIARDIA AG, EIA, STOOL Micro Number: [id number] Test Status: Final Specimen Source: Stool Specimen Quality: Adequate Giardia Result 1: Not Detected Reference Range: Not Detected NOTE: Due to intermittent shedding, one negative sample does not necessarily rule out the presence of a parasitic infection. THIS TEST WAS PERFORMED AT: [facility] [address] [place] [id number] ALESSANDRO PATRICK MD Calprotectin, Fecal Reviewed date:10/11/2024 04:04:55 PM Interpretation: Performing Lab:[address] [address] Notes/Report: Calprotectin, Fecal 132 Reference Range: <50 [...] borderline values. THIS TEST WAS PERFORMED AT: [facility] [employer]/[facility] [address] [place] [address] PEDRO TINOCO MD,PHD,DARYL Ova and Parasite Reviewed date:10/09/2024 01:43:13 PM Interpretation: Performing Lab:[address] [address] Notes/Report: Ova and Parasite SEE NOTE OVA AND PARASITES, CONC AND PERM SMEAR Micro Number: [id number] Test Status: Final Specimen Source: Stool Specimen [...] infection. For additional information, please refer to https://[email or web address].Speedshape.Nafham/faq/[email or web address] (This link is being provided for informational/ educational purposes only.) THIS TEST WAS PERFORMED AT: [facility] [address] [address] FARHAD HOGAN MD CDiff Gene PCR Reviewed date:10/03/2024 11:05:32 PM Interpretation: Performing Lab:[address] [address] Notes/Report: CDiff Gene PCR NEGATIVE Negative If C. difficile strongly suspected despite one negative test, a second test may be sent vs. empiric treatment for C. difficile infection. GI PANEL Reviewed date:10/04/2024 01:24:21 PM Interpretation: Performing Lab:[address] [address] Notes/Report: Campylobacter Not Detected Not Detect. Plesiomonas [...] is performed by Multiplexed PCR, utilizing the [employer] Array. Reason For Referral No Information Medications [...] Problem Status W/U Status Risk Notes Problem [id number] Encounter for screening for malignant neoplasm of colon (Z12.11) Active confirmed Problem Diarrhea (21601844) Diarrhea (R19.7) Active confirmed Problem 07920784 Weight loss (R63.4) Active confirmed Problem Screening for malignant neoplasm of rectum (266779915) Encounter for screening for malignant neoplasm of rectum (Z12.12) Active confirmed Problem 73919643 Preprocedural examination (Z01.818) Active confirmed Problem Irregular bowel habits (006902265) Irregular bowel habits (R19.8) Active confirmed Problem 59101406 Diarrhea, unspecified type (R19.7) Active confirmed Problem 21278110 Giardia (A07.1) Active confirmed Vital Signs Blood pressure diastolic 00 mm Hg 10/04/2024 Height 68 in 10/04/2024 Blood pressure systolic 00 mm Hg 10/04/2024 Weight 154 lbs 10/04/2024 BMI 23.41 kg/m2 10/04/2024 Encounters Encounter Location Date Provider Diagnosis [facility] [address] [place] [id number] 10/04/2024 Mikey Montenegro Diarrhea, unspecifie d type R19.7 and Irregular bowel habits R19.8 [facility] [address] [place] [phone] 06/04/2024 Mikey Montenegro Diarrhea R19.7 Assessments Encounter [...] DIFF) 12/21 CULTURE, STOOL 05/18/2021 STOOL WBC 06/04/2024 STOOL WBC 05/18/2021 C DIFFICILE RFLX PCR 06/04/2024 C DIFFICILE RFLX PCR 05/18/2021 Giardia Ag Stool EIA 06/04/2024 Calprotectin, Fecal 06/04/2024 Ova and Parasite 06/04/2024 GI PANEL 06/04/2024 Future Test Test Name Order Date COLONOSCOPY 01/19/2016 COLONOSCOPY 01/03/2019 Insurance Providers Payer Name Payer Address Payer Phone Subscriber Number Group Number Insured Name Patient Relationship to Insured Coverage Start Date Coverage End Date MEDICARE OF [place] [address] [place] [id number] AYSHA SHAFFER Self - patient is the insured [facility] [address] [place], [place] [id number] [phone] [id number] Self - patient is the [...]
--- OUTSIDE RECORDS SUMMARY | 2025-01-24 13:06 | XMS_ITS | Data Portability ---
Author Organization JENIFER GREENBERG MD [facility], Main Office Address [address] [place] [phone] Assessment No assessment recorded. Plan of Treatment Reminders Order Date Submit Date Provider Last Modified By Organization Details Last Modified Time Details Appointments B20 FOLLOW UP 2024 12:00P M Marie Okeefe MD Not available Not available Not available Lab creatinin e w/ estimated GFR (eGFR), serum or plasma 2024 025 [email or web address] [facility], [address], [facility], [place], [address], 01/10/2025 12:32:55 hepatitis B DNA, quantitat chandrakant, serum 2024 025 [email or web address] [facility], [address], [place] , [place], [address], 01/10/2025 12:32:56 unlisted lab - alb+ALP+A LT+AST+tb garcía+PT 2024 025 [email or web address] [facility], [address], [place] , [place], [address], 01/10/2025 12:32:56 unlisted lab - HBV fibrosure 2024 025 [email or web address] [facility], [address], [place] , [place], [address], 01/10/2025 12:32:56 creatinin e w/ estimated GFR (eGFR), serum or plasma 2023 024 LISS [facility], [address], [facility], [place], [address], 07/04/2024 10:07:04 hepatitis C virus Ab, serum 2023 024 [email or web address] [facility], [address], [address], [place], [address], 07/10/2024 11:39:02 hepatitis B DNA, quantitat chandrakant, serum 2023 024 [email or web address] [facility], [address], [address], [place], [address], 07/10/2024 11:39:02 unlisted lab - alb+ALP+A LT+AST+tb garcía+PT 2023 024 LISS [facility], [address], [address], [place], [address], 07/04/2024 10:07:03 CBC w/ diff 2022 023 [email or web address] [facility], [address], [address], [place], [place], [address], 09/26/2023 16:30:38 electroly george panel, blood 2022 023 [email or web address] [facility], [address], [address], [place], [place], [address], 09/26/2023 16:30:38 ALT (alanine aminotran sferase), serum or plasma 2022 023 LISS [facility], [address], [address], [place], [address], 08/23/2023 21:34:23 AST/SGOT (aspartat e aminotran sferase), serum or plasma 2022 023 LISS [facility], [address], [address], [place], [address], 08/23/2023 21:34:24 creatinin e w/ estimated GFR (eGFR), serum or plasma 2022 023 [email or web address] [facility], [address], [address], [place], [address], 09/26/2023 16:30:39 hepatitis C virus Ab, serum 2022 023 LISS [facility], [address], [address], [place], [place], [address], 08/23/2023 23:21:23 RPR (rapid plasma reagin), serum 2022 023 [email or web address] [facility], [address], [address], [place], [place], [address], 09/26/2023 16:30:39 hepatitis B DNA, quantitat chandrakant, serum 2022 023 LISS [facility], [address], [address], [place], [address], 08/29/2023 15:10:11 unlisted lab - shelton fibrosure 2022 023 LISS [facility], [address], [address], [place], [place], [address], 08/27/2023 18:06:18 Referral None recorded. Procedures None recorded. Surgeries None recorded. Imaging US, abdomen [address] [facility] [place], [address], 01/14/2025 10:31:38 Medication Orders entecavir 0.5 mg tablet 2024 025 [facility], [facility] [place], [place], [address], 2024 11:14:54 entecavir 0.5 mg tablet 2023 024 [facility], [facility] [place], [address], 07/03/2024 12:35:02 entecavir 0.5 mg tablet [address] [facility], [facility] [place], [address], 08/23/2023 14:44:06 Patient TargetsNo targets recorded. Patient InstructionsNo instructions recorded. Reason for Referral None Reported. Results Created Date Observation Date Name Description Value Unit Range Abnormal Flag Note LastModifiedBy Organization Detail LastModifiedTime 08/23/2008/23/2023 COMPL ETE CBC WITH DIFF WBC 7.8 K/mm3 (4.0-1 1.0) Not Available [facility] (Centralized Electronic Ordering - All Locations) Patient Can Go To The Location Of Their Choice, [id number] 08/23/2023 21:06:07 08/23/2008/23/2023 COMPL ETE CBC WITH DIFF RBC 5.03 M/mm3 (4.70- 6.10) Not Available [facility] (Centralized Electronic Ordering - All Locations) Patient Can Go To The Location Of Their Choice, [id number] 08/23/2023 21:06:07 08/23/2008/23/2023 COMPL ETE CBC WITH DIFF HGB 14.9 gm/dL (13.7- 17.1) Not Available [facility] (Centralized Electronic Ordering - All Locations) Patient Can Go To The Location Of Their Choice, [id number] 08/23/2023 21:06:07 08/23/2008/23/2023 COMPL ETE CBC WITH DIFF HCT 45.5 % (40.5- 50.0) Not Available [facility] (Centralized Electronic Ordering - All Locations) Patient Can Go To The Location Of Their Choice, [id number] 08/23/2023 21:06:07 08/23/2008/23/2023 COMPL ETE CBC WITH [...] Go To The Location Of Their Choice, [facility] 08/23/2023 21:06:07 08/23/2008/23/2023 COMPL ETE CBC WITH DIFF lymph # 1.3 K/mm3 (0.8-3 .1) Not Available [facility] (Centralized Electronic Ordering - All Locations) Patient Can Go To The Location Of Their Choice, [address] 08/23/2023 21:06:07 08/23/2008/23/2023 COMPL ETE CBC WITH DIFF mono# 0.7 K/mm3 (0.4-1 .3) Not Available [facility] (Centralized Electronic Ordering - All Locations) Patient Can Go To The Location Of Their Choice, [facility] 08/23/2023 21:06:07 08/23/2008/23/2023 COMPL ETE CBC WITH DIFF eo # 0.2 K/mm3 (0.0-0 .4) Not Available [facility] (Centralized Electronic Ordering - All Locations) Patient Can Go To The Location Of Their Choice, [id number] 08/23/2023 21:06:07 08/23/2008/23/2023 COMPL ETE CBC WITH DIFF baso # 0.1 K/mm3 (0.0-0 .1) Not Available [facility] (Centralized Electronic Ordering - All Locations) Patient Can Go To The Location Of Their Choice, [id number] 08/23/2023 21:06:07 08/23/2008/23/2023 COMPL ETE CBC WITH DIFF abs. imm gran 0.0 K/mm3 Not Available [facility] (Centralized Electronic Ordering - All Locations) Patient Can Go To The Location Of Their Choice, [address] 08/23/2023 21:06:07 08/23/2008/23/2023 COMPL ETE CBC WITH DIFF neut 70.6 % (44-76 ) Not Available [facility] (Centralized Electronic Ordering - All Locations) Patient Can Go To The Location Of Their Choice, [address] 08/23/2023 21:06:07 08/23/2008/23/2023 COMPL ETE CBC WITH DIFF lymph 16.6 % (15-43 ) Not Available [facility] (Centralized Electronic Ordering - All Locations) Patient Can Go To The Location Of Their Choice, 08/23/2023 21:06:07 08/23/2008/23/2023 COMPL ETE CBC WITH DIFF monocyte 9.3 % (4.5-1 0.5) Not Available [facility] (Centralized Electronic Ordering - All Locations) Patient Can Go To The Location Of Their Choice, 08/23/2023 21:06:07 08/23/2008/23/2023 COMPL ETE CBC WITH DIFF eo 2.2 % (0-6) Not Available [facility] (Centralized Electronic Ordering - All Locations) Patient Can Go To The Location Of Their Choice, 08/23/2023 21:06:07 08/23/2008/23/2023 COMPL ETE CBC WITH DIFF baso 0.9 % (0-2) Not Available [facility] (Centralized Electronic Ordering - All Locations) Patient Can Go To The Location Of Their Choice, [id number] 08/23/2023 21:06:07 08/23/2008/23/2023 COMPL ETE CBC WITH DIFF imm gran 0.4 % Not Available [facility] (Centralized Electronic Ordering - All Locations) Patient Can Go To The Location Of Their Choice, [id number] 08/23/2023 21:06:07 08/23/2008/23/2023 ALT ALT 24 U/L (0-41) Not Available [facility] (Centralized Electronic Ordering - All Locations) Patient Can Go To The Location Of Their Choice, 08/23/2023 21:34:22 08/23/2008/23/2023 AST AST 19 U/L (0-40) Not Available [facility] (Centralized Electronic Ordering - All Locations) Patient Can Go To The Location Of Their Choice, 08/23/2023 21:34:24 08/23/20 23 08/23/2023 CREAT ININE creatinine 1.6 mg/dL (0.7-1 .2) high Not Available [facility] (Centralized Electronic Ordering - All Locations) Patient Can Go To The Location Of Their Choice, [id number] 08/23/2023 21:34:25 08/23/2008/23/2023 CREAT ININE estimated GFR creatinine 45 mL/mi n/1.7 3_M2 Creat inine based estim ated bethme hermila basurto ation (eGFR ) in adult s is calcu lated using the Natio nal Kidne y Found ation recom dudley d 2020 CKD-E PI equat ion. Estim ates GFR from serum creat inine , age and sex. Not Available [facility] (Centralized Electronic Ordering - All Locations) Patient Can Go To The Location Of Their Choice, [id number] 08/23/2023 21:34:25 08/23/20 23 08/23/2023 ELECT ROLYT ES sodium 137 mmol/ L (133-1 45) Not Available [facility] (Centralized Electronic Ordering - All Locations) Patient Can Go To The Location Of Their Choice, [id number] 08/23/2023 21:34:25 08/23/20 23 08/23/2023 ELECT ROLYT ES potassium 4.2 mmol/ L (3.6-5 .2) Not Available [facility] (Centralized Electronic Ordering - All Locations) Patient Can Go To The Location Of Their Choice, 08/23/2023 21:34:25 08/23/20 23 08/23/2023 ELECT ROLYT ES chloride 98 mmol/ L (98-10 7) Not Available [facility] (Centralized Electronic Ordering - All Locations) Patient Can Go To The Location Of Their Choice, 08/23/2023 21:34:25 08/23/20 23 08/23/2023 ELECT ROLYT ES bicarbonate 28 mmol/ L (22-29 ) Not Available [facility] (Centralized Electronic Ordering - All Locations) Patient Can Go To The Location Of Their Choice, 08/23/2023 21:34:25 08/23/2008/23/2023 ELECT ROLYT ES anion gap 11 (4-17) Not Available [facility] (Centralized Electronic Ordering - All Locations) Patient Can Go To The Location Of Their Choice, 08/23/2023 21:34:25 08/23/20 23 08/23/2023 ANTI- HEPAT [...] The Location Of Their Choice, 08/23/2023 23:21:24 08/23/2008/23/2023 SYPHI LIS TESTI NG syphilis interpretati on [...] Go To The Location Of Their Choice, [id number] 08/23/2023 23:21:24 08/23/20 23 08/27/2023 SHELTON FIBRO SURE fibrosis score 0.64 high Refer ence range : 0.00 to 0.21 Not Available [facility] (Centralized Electronic Ordering - All Locations) Patient Can Go To The Location Of Their Choice, [id number] 08/27/2023 18:06:18 08/23/20 23 08/27/2023 SHELTON FIBRO [...] Choice, 08/27/2023 18:06:18 08/23/2008/27/2023 SHELTON FIBRO SURE triglyceride s 124 Refer ence range : 0 to 149 Unit: mg/dL Not Available [facility] (Centralized Electronic Ordering - All Locations) Patient Can Go To The Location Of Their Choice, [id number] 08/27/2023 18:06:18 08/23/20 23 08/27/2023 SHELTON FIBRO SURE interpretati ons Commen t (NOTE ) Quant itati ve resul ts of 10 bioch emica ls in combi natio n with age and gende r, are diana zed using a compu tatio nal algor ithm to provi de a quant itati ve surro gate marke r (0.0- 1.0) of liver fibro sis ([place] vir F0-F4 ), hepat ic steat osis [...] had signi fican t NAFLD fibro sis ([place] vir F2-F4 ) and 11% had cirrh [...] Choice, 08/27/2023 18:06:18 08/23/2008/27/2023 SHELTON FIBRO SURE limitations [...] Go To The Location Of Their Choice, [id number] 08/27/2023 18:06:18 08/23/20 23 08/27/2023 SHELTON FIBRO SURE comment Commen t (NOTE ) This test was devel oped and its perfo rmanc e gin cteri stics deter mined by [facility]. It has not been clear ed or appro demario by the Food and Drug Admin istra tion. For quest ions regar ness this repor t pleas e conta ct custo marc servi ce at [phone]. Refer ences : 1. Jennifer mejia V. [...] Go To The Location Of Their Choice, [id number] 08/27/2023 18:06:18 08/23/20 23 08/27/2023 SHELTON FIBRO SURE methodology Commen t (NOTE ) The diana george teste d are perfo rmed by [facility]- Speci fic metho ds. Not inten ded for use with other diagn ostic consi derat ions. [facility] [place] , [facility] [facility] , [place] [address] Not Available [facility] (Centralized Electronic Ordering - All Locations) Patient Can Go To The Location Of Their Choice, [id number] 08/27/2023 18:06:18 08/23/20 23 08/29/2023 HEPAT ITIS B QUANT ITATI VE, PLASM A hepatitis B quantitative , plas IU/mL Not detec benjamin HBV DNA was not detec benjamin in the speci men. Resul t repor benjamin to the COUNT INCLUDES THE [facility]. Testi ng perfo rmed by real time PCR utili [facility]0 HBV test. To preve nt error s [...] Go To The Location Of Their Choice, [id number] 08/29/2023 15:10:11 08/23/20 23 08/29/2023 HEPAT ITIS B QUANT ITATI VE, PLASM A hbvlog LOG value not calcul ated logiu /mL Not Available [facility] (Centralized Electronic Ordering - All Locations) Patient Can Go To The Location Of Their Choice, [id number] 08/29/2023 15:10:11 07/03/20 24 07/04/2024 ALB+A LP+AL T+AST +TBIL I+PT albumin 4.3 g/dL 3.8-4. 8 normal Not Available [facility] ([facility]) [address] [facility], [place], [address], 07/04/2024 10:07:03 07/03/20 24 07/04/2024 ALB+A LP+AL T+AST +TBIL I+PT bilirubin, total 0.4 mg/dL 0.0-1. 2 normal Not Available [facility] ([facility]) [address] [place], [address], 07/04/2024 10:07:03 07/03/20 24 07/04/2024 ALB+A LP+AL T+AST +TBIL I+PT alkaline phosphatase 96 IU/L 44-121 normal Not Available [facility] ([facility]) [address] [facility], [place], [address], 07/04/2024 10:07:03 07/03/20 24 07/04/2024 ALB+A LP+AL T+AST +TBIL I+PT AST (SGOT) 20 IU/L 0-40 normal Not Available [facility] ([facility]) [address] [facility], [place], [address], 07/04/2024 10:07:03 07/03/20 24 07/04/2024 ALB+A LP+AL T+AST +TBIL I+PT ALT (SGPT) 16 IU/L 0-44 normal Not Available [facility] ([facility]) [address] [place], [address], 07/04/2024 10:07:03 07/03/20 24 07/04/2024 ALB+A LP+AL [...] range 2.5 - 3.5 Not Available [facility] ([facility]) [address] [facility], [place], [address], 07/04/2024 10:07:03 07/03/20 24 07/04/2024 ALB+A LP+AL T+AST +TBIL I+PT prothrombin time 11.3 sec 9.1-12 .0 normal Not Available [facility] ([facility]) [address] [facility], [place], [address], 07/04/2024 10:07:03 07/03/20 24 07/04/2024 GLOM FILT RATE, ESTIM ATED creatinine 1.72 mg/dL 0.76-1 .27 above high normal Not Available [facility] ([facility]) [address] [facility], [place], [address], 07/04/2024 10:07:04 07/03/20 24 07/04/2024 GLOM FILT RATE, ESTIM ATED eGFR 42 mL/mi n/1.7 3 >59 below low normal Not Available [facility] ([facility]) [address] [facility], [place], [address], 07/04/2024 10:07:04 07/03/20 24 07/04/2024 HCV ANTIB MIYA RFX TO QUANT PCR HCV Ab Non Reacti ve non reacti ve Not Available [facility] ([facility]) [address] [place], [address], 07/04/2024 10:07:05 07/03/2007/04/2024 HCV ANTIB MIYA RFX TO QUANT PCR interpretati on: Commen t Not infec benjamin with HCV unles s early or acute infec tion is suspe cted (whic h may be delay ed in an immun ocomp romis ed indiv idual ), or other evide nce exist s to indic ate HCV infec tion. Not Available [facility] ([facility]) [address] [facility], [place], [address], 07/04/2024 10:07:05 07/03/20 24 07/04/2024 HEPAT ITIS B SURF AB QUANT hepatitis B surf Ab quant 62.9 mIU/m L immuni ty>10 Statu s of Immun ity Anti- HBs Level ----- ----- ----- --- ----- ----- ---- Incon siste nt with Immun ity 0.0 - 10.0 Consi stent with Immun ity >10.0 Not Available [facility] ([facility]) [address] [facility], [place], [address], 07/04/2024 10:07:06 08/26/20 23 06/20/2023 US, abdom en No observ ation record ed. [email or web address] Not Available 08/26 16:46:31 07/05/20 24 03/08/2024 imagi ng/di agnos tic resul t No observ ation record ed. [email or web address] Not Available 07/05 10:01:27 07/05/20 24 02/13/2024 imagi ng/di agnos tic resul t No observ ation record ed. [email or web address] Not Available 07/05 10:04:14 Result Notes None recorded. Problems Name Problem SNOMED Code Status Onset Date Resolution Date Notes Provider Name and Address Organization Details Recorded Time Cholelith iasis with obstructi on 46810586 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 with obstructio n; 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; Report Immunity to Registry: Yes; Notes: u/s 2010; Not Available [facility] 4 06:58:53 Chronic obstructi ve pulmonary disease 80915505 Active 2019 Chronic obstructiv e lung disease; snomeddesc ription: Chronic obstructiv e lung disease; Report Immunity to Registry: Yes; Notes: pt reports dx by PCP; Chronic obstructiv e pulmonary disease, unspecifie d; snomeddesc ription: Chronic obstructiv e lung disease; Report Immunity to Registry: Yes; Notes: pt reports dx by PCP; Not Available [facility] 4 06:58:53 Cerebrova scular accident 840594997 Active 2019 Cerebrovas cular accident; snomeddesc ription: Cerebrovas cular accident; Report Immunity to Registry: Yes; Notes: hx; Not Available [facility] 4 06:58:53 Chronic kidney disease 022038899 Active 2021 Chronic kidney disease; snomeddesc ription: Chronic kidney disease; Report Immunity to Registry: Yes; Notes: 03/2021 eGFR =34; Not Available [facility] 4 06:58:53 Chronic type B viral hepatitis 03755435 Active 2022 Chronic type B viral hepatitis; [...] 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; F3 2020; Not Available [facility] 4 06:58:53 Myocardia l infarctio n 51632644 Active 2013 Myocardial infarction ; snomeddesc ription: Myocardial infarction ; Report Immunity to Registry: Yes; Notes: 07/03/14 stent x 3; Not Available [facility] 4 06:58:53 Gallbladd er and bile duct calculi 733630770 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; 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; Report Immunity to Registry: Yes; Notes: u/s 2010; Not Available [facility] 4 06:58:53 Abdominal aortic aneurysm 805460380 Active 2013 Abdominal aortic aneurysm without mention of rupture; snomeddesc ription: Abdominal aortic aneurysm; Report Immunity to Registry: Yes; Abdominal aortic aneurysm; snomeddesc ription: Abdominal aortic aneurysm; Report Immunity to Registry: Yes; Not Available [facility] 4 06:58:53 Acute myocardia l infarctio n 75834101 Active 2013 Acute myocardial infarction , unspecifie d site; snomeddesc ription: Myocardial infarction ; Report Immunity to Registry: Yes; Notes: 07/03/14 stent x 3; Not Available [facility] 4 06:58:54 Cerebral infarctio n 915944031 Active 2019 Cerebral infarction , unspecifie d; snomeddesc ription: Cerebrovas cular accident; Report Immunity to Registry: Yes; Notes: hx; Not Available [facility] 4 06:58:54 Problem Notes None recorded. Procedures Surgical History None recorded. Imaging Results Imaging Date Name Status LastModified by Organiz ation Details LastModified Time 06/20/2023 US, abdomen completed [email or web address] Information n ot available 08/26/2023 16:46:31 03/08/2024 imaging/diag nostic result completed Information not available 07/05/2024 10:01:27 02/13/2024 imaging/diag nostic result completed [email or web address] Information not available 07/05/2024 10:04:14 Procedure Notes [...] 30; VACCINE_ IND: no; SU_FULL_ NAME: Marie Borjas miryam; Not Available Not Available Not Available prednison [...] 19,400 unit/0.65 mL subcutane [place] [address]4798 Quantity : 1; Duration : 1; 0 [...] syringe VACCINAT ION ADMINIST ERED BY ASHLEE IVLLASEÑOR 07/03 completed Duration : 1; VACCINE_ IND: no; VACCINE_ NAME: Influenz a, high dose seasonal ; Not Available Not Available Not Available [employer] Simplicit y 2 unit device active Not Available Not Available Not Available [employer] Transport Medic active Not Available Not Available Not Available Prevnar 20 (PF) 0.5 mL intramusc ular syringe - Quantity : 1; Duration : 1; 0 refill(s ) 03/04 completed Frequenc y: x1; Duration : 1; VACCINE_ IND: no; VACCINE_ NAME: Pneumoco ccal conjugat e PCV20, polysacc haride [id number] conjugat e, adjuvant , PF; SU_FULL_ NAME: [...] Updated DateTime 3 172.72 cm 22.1 kg/m2 01529.6 9 g 98 [degF] 98 % 98 % 68 /min 110 mm[Hg] 78 mm[Hg] Eunice OKEEFE MD [facility] 3 14:31:17 Date Recorded Body height Heart rate Respiratory rate Body temperature Body mass index (BMI) Body weight Oxygen saturation Oxygen saturation in Arterial blood by Pulse oximetry Systolic blood pressure Diastolic blood pressure Provider Name and Address Organization Details Last Updated DateTime 4 172.72 cm 56 /min 10 /min 98.5 [degF] 23.4 kg/m2 73191.2 2 g 98 % 98 % 118 mm[Hg] 58 mm[Hg] Daniela OKEEFE MD [facility] 4 12:30:04 Date Recorded Body height Heart rate Respiratory rate Body temperature Body mass index (BMI) Body weight Systolic blood pressure Diastolic blood pressure Provider Name and Address Organization Details Last Updated DateTime 5 172.72 cm 67 /min 10 /min 97.8 [degF] 24 kg/m2 79244.5 9 g 146 mm[Hg] 60 mm[Hg] Daniela OKEEFE MD [facility] 5 10:52:47 Social History Question Answer Notes LastModified by Organizat ion Details LastModified Time Tobacco Smoking Status Never Smoker JENIFER Rodriguez MD [facility] 08/23/2023 14:32:12 Are You Blind Or Do You Have Difficulty Seeing? No [email or web address] Information not available 08/23/2023 Are You Deaf Or Do You Have Serious Difficulty Hearing? No Information not available 08/23/2023 Which Of Your Hands Is Dominant? Right [email or web address] Information not available 08/23/2023 Do You Feel Stressed (tense, Restless, Nervous, Or Anxious, Or Unable To Sleep At Night)? [id number] [email or web address] Information not available 08/23/2023 Sex: Male Functional Status Question Answer Note LastModified by Organizat ion Details LastModified Time Do you have difficulty walking or climbing stairs? Yes stroke [email or web address] Information not available 08/23/2023 Do you have transportation difficulties? No [email or web address] Information not available 08/23/2023 Are you able to walk? YESASSIST pt walks with a dorene [email or web address] Information not available 08/23/2023 Do you have difficulty doing errands alone? No [email or web address] Information not available 08/23/2023 Are you able to care for yourself? Yes [email or web address] Information n ot available 08/23/2023 Do you have difficulty dressing or bathing? Yes pt has a person that helps with bathing and dressing [email or web address] Information not available 08/23/2023 Mental Status Question Answer Note LastModified by Organization D etails LastModified Time Do you have difficulty concentrating, remembering or making decisions? No [email or web address] Information no t available 08/23/2023 Family History Nothing Reported Notes:Family history unknown , Response Property: Yes; , No known relatives, Response Property: Yes; Medical History Condition Response Coronary Artery Disease Y Stroke Y Diverticulitis Y Heart Disease Y Immunizations Vaccine Type Date Status Note Provider Nam e and Address Organization Details Recorded Time Influenza, split virus, quadrivalent, preservative 2 completed Not Available [facility] 12/13/2023 06:54:23 Influenza, split virus, quadrivalent, preservative 1 completed Not Available [facility] 12/13/2023 06:54:24 Past Encounters Encounter ID Performer Location Encounter Start Date Encounter Closed Date Diagnosis/Indication Diagnosis SNOMED-CT Code Diagnosis ICD10 Code Diagnosis Note [id number] Marie Okeefe MD Main Office [address] [place] [id number] 08/23/2023 14:09:45 08/23/2023 14:48:23 Type B viral hepatitis 22522763 B19.10 HBV: Continue Entecavir 0.5 mg po [...] of care reviewed. Questions and concerns addressed [id number] Marie Okeefe MD Main Office [address] [place] [phone] 07/03/2024 12:11:28 07/03/2024 12:39:10 Type B viral hepatitis 92705753 B19.10 HBV: Continue Entecavir 0.5 mg po [...] of care reviewed. Questions and concerns addressed [id number] Marie Okeefe MD Main Office [address] [place] [address] 2024 10:37:00 2024 11:19:47 Type B viral hepatitis 73930331 B19.10 HBV: Continue Entecavir 0.5 mg po [...] Guarantor Name 08/23/2023 1 [place] [employer] Phan Gipson [id number] Phan Gipson 08/23/2023 2 [place] 104 Phan Gipson [id number] Phan Gipson 07/03/2024 1 [place] [employer] Phan Gipson [id number] Phan Gipson 07/03/2024 2 [place] [employer] [id number] Phan Gipson [id number] Phan Gipson 2024 1 MEDICARE B-[place]: [facility] [employer] Phan Gipson [id number] Phan Gipson 2024 2 [place]: [employer] 33D Phan Gipson [id number] Phan Gipson Notes Date Note Type Note [...] booster; will get arexvy. Marie Okeefe MD [address] [place] [address], [phone], JENIFER OKEEFE MD [facility] 08/23/2023 16:59:39 4 text/html f/u HBV. [...] booster; will get arexvy. Marie Okeefe MD [address] [place] [address], [phone], JENIFER OKEEFE MD [facility] 07/03/2024 12:46:44 5 text/html f/u HBV. CKDon [...] u/s abd in Dr Carrera's office summer 2024; no abnormalities w AAA.u/s abd 06/2022 and 06/2023 no mass. 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 n/adeclines STi tetsing. declines PreP. not sexually activeno jaundice. no leg edema. no n/v/d. no CP Marie Okeefe MD [address] [place] [address], [phone], JENIFER - MARIE OKEEFE MD [facility] 01/02/2025 22:53:47
--- OUTSIDE RECORDS SUMMARY | 2025-01-24 13:06 | XMS_ITS | Encounter Summary ---
Author Organization [facility] Address [address] [facility] [address] [place] [address] Phone Care Team Providers Care Co Pilot Name Role Phone Afia Cabrera MD Primary Care Provider [phone] Encounter Details Date Type Department Care Team (Late Contact Info) Description 12/20/2021 Documentation Only [facility] [address] [facility] [place] [address] Chandrakant Lei MD [address] [address] Social History Tobacco Use Types [...] Visit [facility] [address] [place] [address] Chandrakant Lei MD [address] [address] documented as of this encounter Visit Diagnoses Not on filedocumented in this encounter Care Teams Co Pilot Relationship Specialty Start Date End Date Afia Cabrera MD [address] [address] PCP - General Family Medicine 04/28/21 documented as of this encounter
--- OUTSIDE RECORDS SUMMARY | 2025-01-24 13:06 | XMS_ITS | Clinical Summary ---
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 with cataract 05/07/2019 DX:Type 1 diabetes mellitus with cataract (HCC) Type 1 diabetes mellitus wit h peripheral vascular disease (CMS/HCC) 05/07/2019 DX:Type 1 diabet es mellitus with peripheral vascular disease (HCC) Family History Medical History Relation Name Comments Alcohol abuse Father throat cancer, [place], AAA Heart attack Maternal Grandfather Other: hyperlipidemia [...] Info) Description 01/27/2025 1:00 PM EDT Appointment [facility] Ultrasound [address] [place] [phone] 02/26/2025 10:30 AM EDT Office Visit Vascular Surgery - [place] [address] [place] [phone] Jami Mujica MD [address] [place] [address] Health Maintenance Due Date Last Done Comments Diabetes: Annual GFR (Glomerular Filtration Rate) 1951 Diabetes: Annual Foot Exam 12/30/1961 Diabetes: Annual Retina Eye Exam 12/30/1961 RSV Immunization Adult Patients (1 - Risk 60-74 years 1-dose series) [...] - 2023-2 5 season) 2024 Influenza Vaccine (Season Ended) 2025 DTaP,Tdap,and Td Vaccines (3 - Td or [...] age to complete this topic Insurance MEDICARE [facility] Care Teams Hot Metal Car Operator Relationship Specialty Start Date End Date Ryder Lou MD [address] PCP - General Internal Medicine 11/27/18
--- OUTSIDE RECORDS SUMMARY | 2025-01-24 13:06 | XMS_ITS | Encounter Summary ---
Author Organization [facility] Address [address] [facility] [address] [place] [address] Phone Care Team Providers Care Gas Plumbing Inspector Name Role Phone Afia Cabrera MD Primary Care Provider [phone] Encounter Details Date Type Department Care Team (Late Contact Info) Description 03/15/2021 Orders Only [facility] [address] [place] [address] Chandrakant Lei MD [address] [facility] [address] [place] [address] Chronic type B viral hepatitis [...] Office Visit [facility] [address] [place] [place] [address] Chandrakant Lei MD [address] [facility] [address] [place] [address] documented as of this encounter [...] 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
--- OUTSIDE RECORDS SUMMARY | 2025-01-24 13:06 | XMS_ITS | Encounter Summary ---
Author Organization [facility] Address [address] [facility] [address] [place] [address] Phone Care Team Providers Care Pole Shaver Helper Name Role Phone Afia Cabrera MD Primary Care Provider [phone] Encounter Details Date Type Department Care Team (Late Contact Info) Description 02/25/2022 Documentation Only [facility] [address] [facility] [address] [place] [address] Chandrakant Lei MD [address] [facility] [address] [place] [address] Social History Tobacco Use Types [...] Visit [facility] [address] [place] [address] Chandrakant Lei MD [address] [facility] [address] [place] [address] documented as of this encounter Visit Diagnoses Not on filedocumented in this encounter Care Teams Pole Shaver Helper Relationship Specialty Start Date End Date Afia Cabrera MD 3640 [facility] [address] [place] [address] PCP - General Family Medicine 04/28/21 documented as of this encounter
--- OUTSIDE RECORDS SUMMARY | 2025-01-24 13:06 | XMS_ITS ---
Author Organization [facility] Address [address] [place] [address] Care Team Providers Care Photographic Hand Developer Name Role Phone Afia Cabrera Primary Care Provider Mikey Figueredo Unavailable [phone] Allergies No Known Allergies REASON FOR VISIT [...] Status Risk Notes Problem Irregular bowel habits (028930688) Irregular bowel habits (R19.8) Active confirmed Vital Signs Blood pressure systolic 00 mm Hg 10/04/20 24 Blood pressure diastolic 00 mm Hg 024 Height 68 in 10/04/2024 Weight 154 lbs 10/04/2024 BMI 23.41 kg/m2 10/04/2024 Encounters Encounter Location Date Provider Diagnosis [facility] [address] [place] [address] 10/04/2024 Mikey Montenegro Diarrhea, unspecifie d type [...] * AYSHA SHAFFER JDOB:[birth year] (73 yo M)Acc No.[id number]:10/04/2024 Progress Notes Patient:?AYSHA SHAFFER Provider:?Mikey Montenegro MD :1950???Age:73 Y???Sex:Male Juanito e:10/04/2024 Address:[address] [place], [place] [id number] Pcp:Afia Cabrera Subjective: * Chief Complaints: * [...] Procedure Codes:?3017F COLOR ECTAL CA SCREEN DOC [id number] TOBACCO NON-[id number] BP SCR NOT PRFRM REC REASON NOS * Preventive Medicine:? ??Screenings:?Fall Risk Screening?Fall Risk Assessment:?No falls in the past year,?Screening:?No falls in the past year,?Assessment:?Not performed, no reason specified,?Plan of Care:?Not documented, no reason specified.? * Follow Up:?prn * * Sign off status: Completed true * Provider:?Mikey Montenegro MD Date:? 024 Generated for Luisana shelley/Gutierrez/eTransmitting on:?01/24/2025 01:06 PM EDT History and Physical Notes * [...]
--- OUTSIDE RECORDS SUMMARY | 2025-01-24 13:06 | XMS_ITS | Clinical Summary ---
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
--- OUTSIDE RECORDS SUMMARY | 2025-01-24 13:07 | XMS_ITS | Data Portability ---
Author Organization [facility], Main Office Address [address] [place] [id number] Care Team Providers Care Fruit Vendor Name Role Phone MARIE OKEEFE Infectious Disease DELMA BORRERO Health Inspector Food [phone] RAI PEREIRA Supervisor Carding DAVID IVEY Delicatessen Manager ATIYA COHEN Vascular Surgeon [facility] Endocrinolo gist JOSE ALFREDO GALLEGO Neurologist ENZO ROSE Neurologist SHEA PEREZ Systems Testing Laboratory Technician OUSMANE SEGURA Delicatessen Manager ROBERT REHMAN Medical Radiation Dosimetrist JUAN CARLOS CABRERA Primary Care Provider BETSY LOWE Feed Preparation Operator [facility] Vascular Surgeon [phone] Assessment No assessment recorded. Plan of Treatment Reminders Order Date Submit Date Provider Last Modified By Organization Details Last Modified Time Details Appointments [id number] 2024 11:15A M Juan Carlos Cabrera MD Not available Not available Not available Lab lipid panel, serum 2023 024 [facility], [address] [place] [address], [address], [address], 07/23/2024 18:06:10 CBC w/ auto diff 2023 [facility], [address], [address], [place], [place], [address], 07/21/2024 18:05:36 CMP, serum or plasma 2023 024 [facility], [address], [address], [place], [place], [address], 07/21/2024 18:05:37 TSH, ultra-sen sitive, serum 2023 [facility] (Centralized Electronic Ordering - All Locations), Patient Can Go To The Location Of Their Choice, [id number] 07/21/2024 18:05:38 vitamin D, 25-hydrox y, total, serum 2023 [facility], [address], [address], [place], [place], [address], 07/21/2024 18:05:38 magnesium , serum or plasma 2023 024 [facility], [address], [address], [place], [place], [address], 07/21/2024 18:05:39 HbA1c (hemoglob in A1c), blood 2023 [facility], [address], [address], [place], [address], 01/08/2024 18:05:59 BMP, serum or plasma 2023 024 [facility], [address], [address], [place], [address], 12/25/2023 17:40:15 prealbumi n, serum 2023 [facility], [address], [address], [place], [address], 01/08/2024 18:06:00 Referral None recorded. Procedures None recorded. Surgeries None recorded. Imaging None recorded. Medication Orders metoprolo l succinate ER 100 mg tablet,ex tended release 24 hr 2024 025 [facility], [address] [facility], [place], [address], 12/06/2024 11:04:28 cetirizin e 10 mg tablet 2023 024 [facility], [address] [place], [address], 12/25/2023 17:39:28 Patient TargetsNo targets recorded. Patient Instructions Encounter Date Encounter Id Patient Instructions Last Modified By Organization Details Last Modified Time 12/25/2023 [id number] At [facility] follow up visit, all current and discharge medications (OTC, herbal therapies, supplements) reviewed and reconciled with patient and or caregiver, including potential side effects, drug interactions, instructions, and the consequences of not taking medication. Reviewed potential barriers to medication adherence, such as side effects from medication or cost of medication. [email or web address] Not available 12/25/2023 17:39:46 01/16/2024 [id number] hepatitis B: care instructions [email or web address] Not available 01/16/2024 14:55:09 learning about type 1 diabetes ckokar Not available 01/16/2024 14:55:09 type 1 diabetes: care instructions ckokar Not available 01/16/2024 14:55:09 abnormal weight loss: care instructions ckokar Not available 01/16/2024 14:55:09 chronic obstructive pulmonary disease (COPD): care instructions ckokar Not available 01/16/2024 14:55:09 learning about copd and how to prevent lung infections ckokar Not available 01/16/2024 14:55:09 Medications (OTC, herbal therapies, supplements) reviewed and reconciled with patient and or caregiver, including potential side effects, drug interactions, instructions, and the consequences of not taking medication. Reviewed potential barriers to medication adherence, such as side effects from medication or cost of medication. daniel Not available 01/16/2024 13:46:52 07/19/2024 [id number] advance care planning: care instructions ckokar Not available 07/19/2024 12:08:00 hepatitis B: care instructions ckokar Not available 07/19/2024 12:07:59 well visit, over 65: care instructions ckokar Not available 07/19/2024 12:08:00 preventing falls: care instructions ckokar Not available 07/19/2024 12:07:59 medicare preventive services guide (male 74 rs and under) ckokar Not available 07/19/2024 12:08:00 preventing falls: care instructions ckokar Not available 07/19/2024 12:08:00 well visit, over 65: care instructions ckokar Not available 07/19/2024 12:08:00 chronic obstructive pulmonary disease (COPD): care instructions ckokar Not available 07/19/2024 12:08:00 learning about copd and how to prevent lung infections ckokar Not available 07/19/2024 12:08:00 high blood pressure: care instructions ckokar Not available 07/19/2024 12:08:00 learning about high blood pressure ckokar Not available 07/19/2024 12:08:00 12/06/2024 [id number] hepatitis B: care instructions ckokar Not available 12/06/2024 11:03:10 high blood pressure: care instructions ckokar Not available 12/06/2024 11:03:10 learning about high blood pressure ckokar Not available 12/06/2024 11:03:10 chronic obstructive pulmonary disease (COPD): care instructions ckokar Not available 12/06/2024 11:03:10 learning about copd and how to prevent lung infections ckokar Not available 12/06/2024 11:03:10 Reason for Referral None Reported. Results Created Date Observation Date Name Description Value Unit Range Abnormal Flag Note LastModifiedBy Organization Detail LastModifiedTime 11/27/19 24 11/27/2023 COMPL ETE CBC WITH DIFF WBC 6.8 K/mm3 (4.0-1 1.0) Not Available [facility] (Centralized Electronic Ordering - All Locations) Patient Can Go To The Location Of Their Choice, [id number] 11/27/2023 20:29:50 11/27/19 24 11/27/2023 COMPL ETE CBC WITH DIFF RBC 4.71 M/mm3 (4.70- 6.10) Not Available [facility] (Centralized Electronic Ordering - All Locations) Patient Can Go To The Location Of Their Choice, 11/27/2023 20:29:50 11/27/1911/27/2023 COMPL ETE CBC WITH DIFF HGB 14.0 gm/dL (13.7- 17.1) Not Available [facility] ([facility] Ordering - All Locations) Patient Can Go To The Location Of Their Choice, 11/27/2023 20:29:50 11/27/1911/27/2023 COMPL ETE CBC WITH DIFF HCT 43.0 % (40.5- 50.0) Not Available [facility] ([facility] Ordering - All Locations) Patient Can Go To The Location Of Their Choice, 11/27/2023 20:29:50 11/27/1911/27/2023 COMPL ETE CBC WITH DIFF MCV 91.3 fL (80.0- 94.0) Not Available [facility] (Centralized Electronic Ordering - All Locations) Patient Can Go To The Location Of Their Choice, 11/27/2023 20:29:50 11/27/1911/27/2023 COMPL ETE CBC WITH DIFF MCH 29.7 pg (27.0- 34.0) Not Available [facility] ([facility] Ordering - All Locations) Patient Can Go To The Location Of Their Choice, 11/27/2023 20:29:50 11/27/1911/27/2023 COMPL ETE CBC WITH DIFF MCHC 32.6 g/dL (33.0- 37.0) low Not Available [facility] ([facility] Ordering - All Locations) Patient Can Go To The Location Of Their Choice, 11/27/2023 20:29:50 11/27/1911/27/2023 COMPL ETE CBC WITH DIFF plt 210 K/mm3 (150-4 60) Not Available [facility] ([facility] Order[facility] - All Locations) Patient Can Go To The Location Of Their Choice, 11/27/2023 20:29:50 11/27/1911/27/2023 COMPL ETE CBC WITH DIFF RDW-SD 46.3 fL (<47.0 ) Not Available [facility] ([facility] Order[facility] - All Locations) Patient Can Go To The Location Of Their Choice, 11/27/2023 20:29:50 11/27/19 24 11/27/2023 COMPL ETE CBC WITH DIFF MPV 9.3 fL (9.4-1 2.4) low Not Available [facility] ([facility] Order[facility] - All Locations) Patient Can Go To The Location Of Their Choice, 11/27/2023 20:29:50 11/27/19 24 11/27/2023 COMPL ETE CBC WITH DIFF automated NRBC 0.0 #/100 _WBC' s Not Available [facility] ([facility] Ordering - All Locations) Patient Can Go To The Location Of Their Choice, 11/27/2023 20:29:50 11/27/1911/27/2023 COMPL ETE CBC WITH DIFF abs. NRBC 0.0 K/mm3 Not Available [facility] ([facility] Electronic Ordering - All Locations) Patient Can Go To The Location Of Their Choice, 11/27/2023 20:29:50 11/27/1911/27/2023 COMPL ETE CBC WITH DIFF neut # 4.4 K/mm3 (1.3-7 .0) Not Available [facility] ([facility] Ordering - All Locations) Patient Can Go To The Location Of Their Choice, 11/27/2023 20:29:50 11/27/1911/27/2023 COMPL ETE CBC WITH DIFF lymph # 1.1 K/mm3 (0.8-3 .1) Not Available [facility] ([facility] Order[facility] - All Locations) Patient Can Go To The Location Of Their Choice, 11/27/2023 20:29:50 11/27/19 24 11/27/2023 COMPL ETE CBC WITH DIFF mono# 1.1 K/mm3 (0.4-1 .3) Not Available [facility] ([facility] Order[facility] - All Locations) Patient Can Go To The Location Of Their Choice, 11/27/2023 20:29:50 11/27/1911/27/2023 COMPL ETE CBC WITH DIFF eo # 0.1 K/mm3 (0.0-0 .4) Not Available [facility] ([facility] Order[facility] - All Locations) Patient Can Go To The Location Of Their Choice, 11/27/2023 20:29:50 11/27/19 24 11/27/2023 COMPL ETE CBC WITH DIFF baso # 0.1 K/mm3 (0.0-0 .1) Not Available [facility] ([facility] Order[facility] - All Locations) Patient Can Go To The Location Of Their Choice, 11/27/2023 20:29:50 11/27/19 24 11/27/2023 COMPL ETE CBC WITH DIFF abs. imm gran 0.0 K/mm3 Not Available [facility] ([facility] - All Locations) Patient Can Go To The Location Of Their Choice, 11/27/2023 20:29:50 11/27/1911/27/2023 COMPL ETE CBC WITH DIFF neut 64.8 % (44-76 ) Not Available [facility] ([facility] Order[facility] - All Locations) Patient Can Go To The Location Of Their Choice, 11/27/2023 20:29:50 11/27/1911/27/2023 COMPL ETE CBC WITH DIFF lymph 16.5 % (15-43 ) Not Available [facility] ([facility] Order[facility] - All Locations) Patient Can Go To The Location Of Their Choice, 11/27/2023 20:29:50 11/27/1911/27/2023 COMPL ETE CBC WITH DIFF monocyte 16.8 % (4.5-1 0.5) high Not Available [facility] ([facility] Order[facility] - All Locations) Patient Can Go To The Location Of Their Choice, 11/27/2023 20:29:50 11/27/1911/27/2023 COMPL ETE CBC WITH DIFF eo 0.9 % (0-6) Not Available [facility] ([facility] Order[facility] - All Locations) Patient Can Go To The Location Of Their Choice, 11/27/2023 20:29:50 11/27/1911/27/2023 COMPL ETE CBC WITH DIFF baso 0.7 % (0-2) Not Available [facility] ([facility] Order[facility] - All Locations) Patient Can Go To The Location Of Their Choice, 11/27/2023 20:29:50 11/27/19 24 11/27/2023 COMPL ETE CBC WITH DIFF imm gran 0.3 % Not Available [facility] ([facility] Order[facility] - All Locations) Patient Can Go To The Location Of Their Choice, 11/27/2023 20:29:50 11/27/1911/27/2023 COMPR EHENS CHANDRAKANT METAB OLIC PANL glucose 467 mg/dL (70-99 ) high Not Available [facility] ([facility] Order[facility] - All Locations) Patient Can Go To The Location Of Their Choice, 11/27/2023 20:48:45 11/27/1911/27/2023 COMPR EHENS CHANDRAKANT METAB OLIC PANL BUN 22 mg/dL (8-23) Not Available [facility] ([facility] Order[facility] - All Locations) Patient Can Go To The Location Of Their Choice, 11/27/2023 20:48:45 11/27/1911/27/2023 COMPR EHENS CHANDRAKANT METAB OLIC PANL creatinine 1.7 mg/dL (0.7-1 .2) high Not Available [facility] ([facility] Order[facility] - All Locations) Patient Can Go To The Location Of Their Choice, 11/27/2023 20:48:45 11/27/1911/27/2023 COMPR EHENS CHANDRAKANT METAB OLIC PANL sodium 132 mmol/ L (133-1 45) low Not Available [facility] ([facility] Order[facility] - All Locations) Patient Can Go To The Location Of Their Choice, 11/27/2023 20:48:45 11/27/19 24 11/27/2023 COMPR EHENS CHANDRAKANT METAB OLIC PANL potassium 3.9 mmol/ L (3.6-5 .2) Not Available [facility] ([facility] Order[facility] - All Locations) Patient Can Go To The Location Of Their Choice, 11/27/2023 20:48:45 11/27/1911/27/2023 COMPR EHENS CHANDRAKANT METAB OLIC PANL chloride 92 mmol/ L (98-10 7) low Not Available [facility] ([facility] Order[facility] - All Locations) Patient Can Go To The Location Of Their Choice, 11/27/2023 20:48:45 11/27/19 24 11/27/2023 COMPR EHENS CHANDRAKANT METAB OLIC PANL bicarbonate 27 mmol/ L (22-29 ) Not Available [facility] ([facility] Order[facility] - All Locations) Patient Can Go To The Location Of Their Choice, 11/27/2023 20:48:45 11/27/1911/27/2023 COMPR EHENS CHANDRAKANT METAB OLIC PANL anion gap 13 (4-17) Not Available [facility] ([facility] Order[facility] - All Locations) Patient Can Go To The Location Of Their Choice, 11/27/2023 20:48:45 11/27/19 24 11/27/2023 COMPR EHENS CHANDRAKANT METAB OLIC PANL albumin 4.5 gm/dL (3.4-4 .8) Not Available [facility] ([facility] Order[facility] - All Locations) Patient Can Go To The Location Of Their Choice, 11/27/2023 20:48:45 11/27/1911/27/2023 COMPR EHENS CHANDRAKANT METAB OLIC PANL calcium 9.1 mg/dL (8.6-1 0.5) Not Available [facility] ([facility] Order[facility] - All Locations) Patient Can Go To The Location Of Their Choice, 11/27/2023 20:48:45 11/27/1911/27/2023 COMPR EHENS CHANDRAKANT METAB OLIC PANL bilirubin,to ella 0.4 mg/dL (0-1.2 ) Not Available [facility] ([facility] Order[facility] - All Locations) Patient Can Go To The Location Of Their Choice, 11/27/2023 20:48:45 11/27/1911/27/2023 COMPR EHENS CHANDRAKANT METAB OLIC PANL total protein 7.2 gm/dL (6.2-8 .2) Not Available [facility] ([facility] Order[facility] - All Locations) Patient Can Go To The Location Of Their Choice, 11/27/2023 20:48:45 11/27/1911/27/2023 COMPR EHENS CHANDRAKANT METAB OLIC PANL Ag ratio 1.7 Not Available [facility] ([facility] Order[facility] - All Locations) Patient Can Go To The Location Of Their Choice, 11/27/2023 20:48:45 11/27/1911/27/2023 COMPR EHENS CHANDRAKANT METAB OLIC PANL AST 17 U/L (0-40) Not Available [facility] ([facility] Order[facility] - All Locations) Patient Can Go To The Location Of Their Choice, 11/27/2023 20:48:45 11/27/19 24 11/27/2023 COMPR EHENS CHANDRAKANT METAB OLIC PANL alk phos 100 U/L (40-12 9) Not Available [facility] ([facility] Order[facility] - All Locations) Patient Can Go To The Location Of Their Choice, 11/27/2023 20:48:45 11/27/19 24 11/27/2023 COMPR EHENS CHANDRAKANT METAB OLIC PANL ALT 17 U/L (0-41) Not Available [facility] ([facility] Order[facility] - All Locations) Patient Can Go To The Location Of Their Choice, 11/27/2023 20:48:45 11/27/19 24 11/27/2023 COMPR EHENS CHANDRAKANT METAB OLIC PANL estimated GFR creatinine 41 mL/mi n/1.7 3_M2 Creat inine based estim [...] Go To The Location Of Their Choice, 11/27/2023 20:48:45 11/27/1911/27/2023 PREAL BUMIN prealbumin 15.3 mg/dL (20-40 ) low Not Available [facility] ([facility] - All Locations) Patient Can Go To The Location Of Their Choice, 11/27/2023 20:48:47 11/27/1911/27/2023 TSH WITH REFLE X TO FT4 TSH 1.00 uIU/m L (0.4-4 .2) Not Available [facility] ([facility] - All Locations) Patient Can Go To The Location Of Their Choice, 11/27/2023 21:00:34 11/27/19 24 11/27/2023 25OH VITAM IN D 25OH vitamin D 42.0 NG/mL (20-50 ) Not Available [facility] ([facility] - All Locations) Patient Can Go To The Location Of Their Choice, 11/27/2023 21:00:35 01/03/20 24 01/04/2024 BMP8+ EGFR glucose 125 mg/dL 70-99 above high normal Not Available [facility] ([facility]) [address] [place], [address], 01/08/2024 18:05:58 01/03/20 24 01/04/2024 BMP8+ EGFR BUN 22 mg/dL 8-27 Not Available [facility] ([facility]) [address] [place], [address], 01/08/2024 18:05:58 01/03/20 24 01/04/2024 BMP8+ EGFR creatinine 1.46 mg/dL 0.76-1 .27 above high normal Not Available [facility] ([facility]) [address] [facility], [place], [address], 01/08/2024 18:05:58 01/03/20 24 01/04/2024 BMP8+ EGFR eGFR 51 mL/mi n/1.7 3 >59 below low normal Not Available [facility] ([facility]) [address] [place], [address], 01/08/2024 18:05:58 01/03/20 24 01/04/2024 BMP8+ EGFR BUN/creatini ne ratio 15 10-24 Not Available [facility] ([facility]) [address] [place], [address], 01/08/2024 18:05:58 01/03/20 24 01/04/2024 BMP8+ EGFR sodium 140 mmol/ L 134-14 4 Not Available [facility] ([facility]) [address] [place], [address], 01/08/2024 18:05:58 01/03/20 24 01/04/2024 BMP8+ EGFR potassium 4.0 mmol/ L 3.5-5. 2 Not Available [facility] ([facility]) [address] [place], [address], 01/08/2024 18:05:58 01/03/20 24 01/04/2024 BMP8+ EGFR chloride 101 mmol/ L 96-106 Not Available [facility] ([facility]) [address] [facility] [place], [address], 01/08/2024 18:05:58 01/03/2001/04/2024 BMP8+ EGFR carbon dioxide, total 24 mmol/ L 20-29 Not Available [facility] ([facility]) [address] [facility] [place] [place], [address], 01/08/2024 18:05:58 01/03/2001/04/2024 BMP8+ EGFR anion gap 15.0 mmol/ L 10.0-1 8.0 Not Available [facility] ([facility]) [address] [place], [address], 01/08/2024 18:05:58 01/03/2001/04/2024 BMP8+ EGFR calcium 9.2 mg/dL 8.6-10 .2 Not Available [facility] ([facility]) [address] [place], [address], 01/08/2024 18:05:58 01/03/2001/04/2024 HEMOG LOBIN A1C hemoglobin A1C 9.8 % 4.8-5. 6 above high normal Predi abete s: 5.7 - 6.4 Diabe george: >6.4 Glyce tiara contr ol for adult s with diabe george: <7.0 Not Available [facility] ([facility]) [address] [place], [address], 01/08/2024 18:05:59 01/03/2001/08/2024 PREAL BUMIN prealbumin 21 mg/dL 9-32 Not Available [facility] ([facility]) [address] [place], [address], 01/08/2024 18:06:00 07/19/20 24 07/20/2024 CBC WITH DIFFE RENTI AL/PL ATELE T WBC 7.8 x10e3 /uL 3.4-10 .8 normal Not Available [facility] ([facility]) [address] [facility], [place], [address], 07/21/2024 18:05:36 07/19/20 24 07/20/2024 CBC WITH DIFFE RENTI AL/PL ATELE T RBC 4.60 x10e6 /uL 4.14-5 .80 normal Not Available [facility] ([facility]) [address] [facility], [place], [address], 07/21/2024 18:05:36 07/19/20 24 07/20/2024 CBC WITH DIFFE RENTI AL/PL ATELE T hemoglobin 13.1 g/dL 13.0-1 7.7 normal Not Available [facility] ([facility]) [address] [facility], [place], [address], 07/21/2024 18:05:36 07/19/20 24 07/20/2024 CBC WITH DIFFE RENTI AL/PL ATELE T hematocrit 41.1 % 37.5-5 1.0 normal Not Available [facility] ([facility]) [address] [facility], [place], [address], 07/21/2024 18:05:36 07/19/20 24 07/20/2024 CBC WITH DIFFE RENTI AL/PL ATELE T MCV 89 fL 79-97 normal Not Available [facility] ([facility]) [address] [place], [address], 07/21/2024 18:05:36 07/19/20 24 07/20/2024 CBC WITH DIFFE RENTI AL/PL ATELE T MCH 28.5 pg 26.6-3 3.0 normal Not Available [facility] ([facility]) [address] [place], [address], 07/21/2024 18:05:36 07/19/20 24 07/20/2024 CBC WITH DIFFE RENTI AL/PL ATELE T MCHC 31.9 g/dL 31.5-3 5.7 normal Not Available [facility] ([facility]) [address] [facility], [place], [address], 07/21/2024 18:05:36 07/19/20 24 07/20/2024 CBC WITH DIFFE RENTI AL/PL ATELE T RDW 13.9 % 11.6-1 5.4 Not Available [facility] ([facility]) [address] [facility], [place], [address], 07/21/2024 18:05:36 07/19/20 24 07/20/2024 CBC WITH DIFFE RENTI AL/PL ATELE T platelets 263 x10e3 /uL 150-45 0 normal Not Available [facility] ([facility]) [address] [facility], [place], [address], 07/21/2024 18:05:36 07/19/20 24 07/20/2024 CBC WITH DIFFE RENTI AL/PL ATELE T neutrophils 71 % not estab. normal Not Available [facility] ([facility]) [address] [facility], [place], [address], 07/21/2024 18:05:36 07/19/20 24 07/20/2024 CBC WITH DIFFE RENTI AL/PL ATELE T lymphs 17 % not estab. normal Not Available [facility] ([facility]) [address] [facility], [place], [address], 07/21/2024 18:05:36 07/19/20 24 07/20/2024 CBC WITH DIFFE RENTI AL/PL ATELE T monocytes 9 % not estab. normal Not Available [facility] ([facility]) [address] [facility], [place], [address], 07/21/2024 18:05:36 07/19/20 24 07/20/2024 CBC WITH DIFFE RENTI AL/PL ATELE T eos 2 % not estab. normal Not Available [facility] ([facility]) [address] [place], [address], 07/21/2024 18:05:36 07/19/20 24 07/20/2024 CBC WITH DIFFE RENTI AL/PL ATELE T basos 1 % not estab. normal Not Available [facility] ([facility]) [address] [facility], [place], [address], 07/21/2024 18:05:36 07/19/20 24 07/20/2024 CBC WITH DIFFE RENTI AL/PL ATELE T immature cells RODBUSTER Not Available [facility] ([facility]) [address] [place], [address], 07/21/2024 18:05:36 07/19/20 24 07/20/2024 CBC WITH DIFFE RENTI AL/PL ATELE T neutrophils (absolute) 5.6 x10e3 /uL 1.4-7. 0 normal Not Available [facility] ([facility]) [address] [place], [address], 07/21/2024 18:05:36 07/19/20 24 07/20/2024 CBC WITH DIFFE RENTI AL/PL ATELE T lymphs (absolute) 1.3 x10e3 /uL 0.7-3. 1 normal Not Available [facility] ([facility]) [address] [place], [address], 07/21/2024 18:05:36 07/19/20 24 07/20/2024 CBC WITH DIFFE RENTI AL/PL ATELE T monocytes(ab solute) 0.7 x10e3 /uL 0.1-0. 9 normal Not Available [facility] ([facility]) [address] [place], [address], 07/21/2024 18:05:36 07/19/20 24 07/20/2024 CBC WITH DIFFE RENTI AL/PL ATELE T eos (absolute) 0.2 x10e3 /uL 0.0-0. 4 normal Not Available [facility] ([facility]) [address] [facility] [place], [address], 07/21/2024 18:05:36 07/19/20 24 07/20/2024 CBC WITH DIFFE RENTI AL/PL ATELE T baso (absolute) 0.1 x10e3 /uL 0.0-0. 2 normal Not Available [facility] ([facility]) [address] [facility] [place], [address], 07/21/2024 18:05:36 07/19/20 24 07/20/2024 CBC WITH DIFFE RENTI AL/PL ATELE T immature granulocytes 0 % not estab. Not Available [facility] ([facility]) [address] [facility] [place], [address], 07/21/2024 18:05:36 07/19/20 24 07/20/2024 CBC WITH DIFFE RENTI AL/PL ATELE T immature grans (abs) 0.0 x10e3 /uL 0.0-0. 1 Not Available [facility] ([facility]) [address] [facility] [place], [address], 07/21/2024 18:05:36 07/19/20 24 07/20/2024 CBC WITH DIFFE RENTI AL/PL ATELE T NRBC RODBUSTER Not Available [facility] ([facility]) [address] [facility] [place], [address], 07/21/2024 18:05:36 07/19/20 24 07/20/2024 CBC WITH DIFFE RENTI AL/PL ATELE T hematology comments: RODBUSTER Not Available [facility] ([facility]) [address] [place], [address], 07/21/2024 18:05:36 07/19/20 24 07/20/2024 COMP. METAB OLIC PANEL (14) glucose 276 mg/dL 70-99 above high normal Not Available [facility] ([facility]) [address] [place], [address], 07/21/2024 18:05:37 07/19/20 24 07/20/2024 COMP. METAB OLIC PANEL (14) BUN 24 mg/dL 8-27 normal Not Available [facility] ([facility]) [address] [place], [address], 07/21/2024 18:05:37 07/19/20 24 07/20/2024 COMP. METAB OLIC PANEL (14) creatinine 1.88 mg/dL 0.76-1 .27 above high normal Not Available [facility] ([facility]) [address] [place], [address], 07/21/2024 18:05:37 07/19/20 24 07/20/2024 COMP. METAB OLIC PANEL (14) eGFR 37 mL/mi n/1.7 3 >59 below low normal Not Available [facility] ([facility]) [address] [place], [address], 07/21/2024 18:05:37 07/19/20 24 07/20/2024 COMP. METAB OLIC PANEL (14) BUN/creatini ne ratio 13 10-24 normal Not Available [facility] ([facility]) [address] [place], [address], 07/21/2024 18:05:37 07/19/20 24 07/20/2024 COMP. METAB OLIC PANEL (14) sodium 136 mmol/ L 134-14 4 normal Not Available [facility] ([facility]) [address] [place], [address], 07/21/2024 18:05:37 07/19/20 24 07/20/2024 COMP. METAB OLIC PANEL (14) potassium 4.9 mmol/ L 3.5-5. 2 normal Not Available [facility] ([facility]) [address] [place], [address], 07/21/2024 18:05:37 07/19/20 24 07/20/2024 COMP. METAB OLIC PANEL (14) chloride 97 mmol/ L 96-106 normal Not Available [facility] ([facility]) [address] [place], [address], 07/21/2024 18:05:37 07/19/20 24 07/20/2024 COMP. METAB OLIC PANEL (14) carbon dioxide, total 21 mmol/ L 20-29 normal Not Available [facility] ([facility]) [address] [place], [address], 07/21/2024 18:05:37 07/19/20 24 07/20/2024 COMP. METAB OLIC PANEL (14) calcium 9.2 mg/dL 8.6-10 .2 normal Not Available [facility] ([facility]) [address] [place], [address], 07/21/2024 18:05:37 07/19/20 24 07/20/2024 COMP. METAB OLIC PANEL (14) protein, total 7.2 g/dL 6.0-8. 5 normal Not Available [facility] ([facility]) [address] [place], [address], 07/21/2024 18:05:37 07/19/20 24 07/20/2024 COMP. METAB OLIC PANEL (14) albumin 4.3 g/dL 3.8-4. 8 normal Not Available [facility] ([facility]) [address] [place], [address], 07/21/2024 18:05:37 07/19/20 24 07/20/2024 COMP. METAB OLIC PANEL (14) globulin, total 2.9 g/dL 1.5-4. 5 Not Available [facility] ([facility]) [address] [place], [address], 07/21/2024 18:05:37 07/19/20 24 07/20/2024 COMP. METAB OLIC PANEL (14) bilirubin, total 0.3 mg/dL 0.0-1. 2 normal Not Available [facility] ([facility]) [address] [place], [address], 07/21/2024 18:05:37 07/19/20 24 07/20/2024 COMP. METAB OLIC PANEL (14) alkaline phosphatase 132 IU/L 44-121 above high normal Not Available [facility] ([facility]) [address] [facility] [place], [address], 07/21/2024 18:05:37 07/19/20 24 07/20/2024 COMP. METAB OLIC PANEL (14) AST (SGOT) 19 IU/L 0-40 normal Not Available [facility] ([facility]) [address] [facility] [place], [address], 07/21/2024 18:05:37 07/19/20 24 07/21/2024 COMP. METAB OLIC PANEL (14) ALT (SGPT) 16 IU/L 0-44 normal Not Available [facility] ([facility]) [address] [facility] [place], [address], 07/21/2024 18:05:37 07/19/20 24 07/20/2024 VITAM IN D, 25-HY DROXY vitamin D, 25-hydroxy 37.7 NG/mL 30.0-1 00.0 Vitam in D defic iency has been defin ed by the Insti tute of Medic ine and an Endoc rine Socie ty pract ice guide line as a level of serum 25-OH vitam in D less than 20 ng/mL (1,2) . The Endoc rine Socie ty went on to furth er defin e vitam in D insuf ficie ncy as a level betwe en 21 and 29 ng/mL (2). 1. IOM (Inst itute of Medic ine). 2010. Dieta ry refer ence josé luis es for calci um and D. Jarret beckwith [place]: The [facility] . 2. Vasquez alejandro MF, Kevin reddy [place], Bisch off-F errar i BARTH, et al. Evalu ation , treat ment, and preve ntion of vitam in D defic iency : an Endoc rine Socie ty clini chivo pract ice guide line. JCEM. 2010; 96(7) :1911 -30. Not Available [facility] ([facility]) [address] [place], [address], 07/21/2024 18:05:38 07/19/20 24 07/20/2024 TSH RFX ON ABNOR MAL TO FREE T4 TSH 1.670 uIU/m L 0.450- 4.500 normal Not Available [facility] ([facility]) [address] [place], [address], 07/21/2024 18:05:38 07/19/20 24 07/20/2024 MAGNE SIUM magnesium 2.1 mg/dL 1.6-2. 3 normal Not Available [facility] ([facility]) [address] [place], [address], 07/21/2024 18:05:39 07/19/20 24 07/23/2024 LIPID PANEL cholesterol, total 118 mg/dL 100-19 9 normal Not Available [facility] ([facility]) [address] [place], [address], 07/23/2024 18:06:09 07/19/20 24 07/23/2024 LIPID PANEL triglyceride s 113 mg/dL 0-149 normal Not Available [facility] ([facility]) [address] [place], [address], 07/23/2024 18:06:09 07/19/20 24 07/23/2024 LIPID PANEL HDL cholesterol 31 mg/dL >39 below low normal Not Available [facility] ([facility]) [address] [facility] [place], [address], 07/23/2024 18:06:09 07/19/20 24 07/23/2024 LIPID PANEL VLDL cholesterol chivo 21 mg/dL 5-40 Not Available [facility] ([facility]) [address] [facility], [place], [address], 07/23/2024 18:06:09 07/19/20 24 07/23/2024 LIPID PANEL LDL chol calc ([facility]) 66 mg/dL 0-99 Not Available [facility] ([facility]) [address] [facility], [place], [address], 07/23/2024 18:06:09 07/19/20 24 07/23/2024 LIPID PANEL LDL calc comment: RODBUSTER Not Available [facility] ([facility]) [address] [facility], [place], [address], 07/23/2024 18:06:09 07/19/20 24 07/20/2024 ROSMERY EN AUTHO RIZAT ION written authorizatio n Mathew Camejo en Autho rizat ion Recei demario. Autho rizat ion recei demario from [facility] FINA CABRERA for Link Reque st on 07-20 Logge d by Dominick Patel Not Available [facility] ([facility]) [address] [facility], [place], [address], 07/23/2024 18:06:11 07/29/20 24 07/29/2024 LIPID PANEL cholesterol, total 95 mg/dL 100-19 9 below low normal Not Available [facility] ([facility]) [address] [place], [address], 07/30/2024 06:07:57 07/29/20 24 07/29/2024 LIPID PANEL triglyceride s 132 mg/dL 0-149 normal Not Available [facility] [address] [facility] [place], [address], 07/30/2024 06:07:57 07/29/20 24 07/29/2024 LIPID PANEL HDL cholesterol 26 mg/dL >39 below low normal Not Available [facility] ([facility]) [address] [facility], [place], [address], 07/30/2024 06:07:57 07/29/20 24 07/29/2024 LIPID PANEL VLDL cholesterol chivo 24 mg/dL 5-40 Not Available [facility] ([facility]) [address] [facility] [place], [address], 07/30/2024 06:07:57 07/29/20 24 07/29/2024 LIPID PANEL LDL chol calc ([facility]) 45 mg/dL 0-99 Not Available [facility] ([facility]) [address] [facility] [place], [address], 07/30/2024 06:07:57 07/29/2007/29/2024 LIPID PANEL LDL calc comment: RODBUSTER Not Available [facility] ([facility]) [address] [facility] [place], [address], 07/30/2024 06:07:57 11/26/19 24 11/26/2023 XR, foot, 3 or more view No observ ation record ed. [address] (Medical Records) [address] [place] [address], [address], 11/27/2023 16:06:16 11/26/19 24 11/26/2023 CT, head + brain , w/o contr ast No observ ation record ed. [address] (Medical Records) [address] [place] [address], [address], 11/27/2023 16:06:58 11/26/19 24 11/26/2023 CT, cervi chivo spine , w/o contr ast No observ ation record ed. [address] (Medical Records) [address] [facility], [place], [address], 11/27/2023 16:07:44 01/04/20 24 01/04/2024 US, doppl er, arter ial No observ ation record ed. [address] [facility] [address] [place], [address], 01/05/2024 09:11:15 01/04/20 24 01/04/2024 ankle brach ial index , compl ete No observ ation record ed. [address] [facility] [address] [place], [address], 01/05/2024 09:12:14 05/16/20 24 05/16/2024 CT chest ldct progr am follo w up CT Chest LDCT Progra m Follow Up Reason : 6 MONTHS F U LDCT LUNG CANCER SCREEN ING PROGRA M, CURRDORIAN T SMOKER , 47 PACK YEAR HX Visit type: Follow -up TECHNI QUE: Low-do se helica l CT of the chest withou t IV contra st (Adult Lung Cancer Screen ing) protoc ol was perfor med. Travis l reform ats were obtain ed. Weight -based protoc ol using automa tic tube modula tion was used to optimi ze exposu re parame ters. CTDIvo l Body: 3.07 mGy, DLP Body: 122 mGy*cm . COMPAR JOSE FRANCISCO: Multip le priors , most recent chest CT 024 FINDIN GS: LUNG NODULE S (measu red on thin axial series 4): RIGHT lung: Unchan ged scatte red small calcif ied granul omas. LEFT lung: No signif icant change in size of conflu ent branch ing nodula r opacit y in the left upper lobe measur ing 13 x 6 mm (4:166 ). Additi onal scatte red calcif ied and noncal cified nodule s measur ing up to 5 mm are unchan ged (211). OTHER FINDIN GS: Semiconductor Assembler view findin gs, lines and tubes: None. Trache a and airway s: Patent withou t eviden ce of trache al or endobr onchia l lesion . Lungs and pleura : Mild biapic al scarri ng. Unchan ged mild subple ural reticu lation at the lower lungs. Mild bibasi lar atelec tasis. No consol idatio n. No effusi on or pneumo thorax . Medias tinum and thee: No mass or hemato ma. Unchan ged mildly promin ent 1.0 cm subcar inal lymph node (2:51) . No hilar lympha denopa thy. No esopha geal abnorm ality. Normal thyroi d. Heart: Heart is normal in size. Small perica rdial effusi on. Modera te travis ry artery calcif icatio n. Aorta: Mild vascul ar calcif icatio n but no aneury sm. Pulmon mimi arteri es: Normal calibe r. Chest wall soft tissue s: No acute abnorm ality. Minima l bilate ral gyneco mastia . Diaphr agm: Intact . Upper abdome n: No signif icant abnorm ality. Left renal artery stent. Mild right renal atroph y. Bones: No acute abnorm ality. IMPRES JJ: 1. Compar ed to 024, no signif icant in size in branch ing nodula r opacit y in the left upper lobe measur ing 13 x 6 mm. Other nodule s are unchan ged. LungRa d Catego ry: 2 Benign Appear ance or Behavi or. Nodule s with a very low likeli bah of becomi ng a clinic ally active cancer due to size or lack of growth . Contin ue annual screen ing with LDCT in 12 months . 2. No signif icant additi onal findin gs requir ing furthe r evalua tion. Lung-R AD Catego ry Modifi er: None. Catego rizati on based on Lung-R ADS 2021 criter ia. https: //[email or web address] R/File s/RADS /Lung- RADS/L genevieve-RA DS-202 2.pdf I have person ally review ed the images and I agree with this report . WSN: [id number] Orderi ng Physic romy: Osvaldo Cabrera Dictat ed By: Brianne Copeland MD Dictavi ed Date/T tonny: 3:07 pm Review ed By: Satinder paniagua MD, Walter Verma Signed By: Satinder paniagua MD, Walter Verma Signed Date/T tonny: 3:12 pm Transc ribed By: TEJAS Transc ribed Date/T tonny: 2:49 pm Patien t Class: Outpat ient lmulerovalle [facility] (Outpt Imaging) [address] [place], [address], 05/31/2024 08:51:20 05/16/20 24 05/16/2024 LDCT, chest , for lung cance r scree emi No observ ation record ed. [address] [place], [address], 05/22/2024 09:26:28 05/20/20 24 05/16/2024 LDCT, chest , for lung cance r scree emi No observ ation record ed. [address] - [facility] Information Management [address] [place], [address], 05/22/2024 09:26:17 Result Notes None recorded. Problems Name Problem SNOMED Code Status Onset Date Resolution Date Notes Provider Name and Address Organization Details Recorded Time Abdomina l aortic aneurysm 138947204 Completed 201305/06/2014 STORY: 2.9CM (OCT 2013); RECORDED 11/21/19 14 1:54PM BY ZULEIKA KAN MA, ANNOTATI ON/JENIFER Valentino [facility] 6 11:14:48 Chronic bronchit is 47222905 Completed 201205/06/2014 RECORDED 06/28/20 13 10:13AM BY RYDER LOU MD, ANNOTATI ON/ADDJENIFER Taylor [facility] 6 11:14:48 Acute pharyngi tis 528982713 Completed 201105/06/2014 IMPRESSI ON: RAPID STREP NEGATIVE , EXAM C/W WITH STREP, WILL SEND CULTURE AND TREAT.; RECORDED 06/27/20 12 10:38AM BY ZULEIKA KAN MA, ANNOTMAGDA ON/ADDEN DUM JENIFER Cavanaugh, [facility] 6 11:14:48 Adult health examinat ion Completed 09/09/2014 JENIFER Cavanaugh, [facility] 6 11:14:48 Chronic type B viral hepatiti s 17787664 Active 2020 JENIFER Pennington, [facility] 2 10:14:18 Depressi ve disorder 16025020 Completed 201105/06/2014 RECORDED 06/27/20 12 10:38AM BY ZULEIKA KAN MA, SAJAN ON/ADDEN DUM JENIFER Cavanaugh, [facility] 6 11:14:48 Type 1 diabetes mellitus 36760087 Completed 201205/06/2014 STORY: LEXA; RECORDED 06/28/20 13 9:34AM BY JONATHAN DUMONT MA, SAJAN ON/JAMAL Cabrera MD [address] [address], [place], [address] , [facility] 4 11:59:19 Uncontro lled type 1 diabetes mellitus 586735093 Completed 202007/17/2024 Juan Carlos Cabrera MD [address] [address], [place], [address] , [facility] 4 11:59:29 Disorder of skin 35009253 Completed 201105/06/2014 RECORDED 06/27/20 12 10:38AM BY ZULEIKA KAN MA, SAJAN ON/JAMAL Cabrera MD [address] [facility] [address], [place], [address] , [facility] 4 11:57:35 Family history of Cardiova scular disease 306880033 Completed 201105/06/2014 STORY: FATHER; RECORDED 06/27/20 12 10:38AM BY ZULEIKA KAN MA, SAJAN ON/ADDEN DUM JENIFER Cavanaugh, [facility] 6 11:14:48 Influenz a vaccine needed [id number] 06 Completed 201205/06/2014 RECORDED 06/28/20 13 9:37AM BY JONATHAN DUMONT MA, OFFICE VISIT JENIFER Cavanaugh, [facility] 6 11:14:48 Genital herpes simplex 69697315 Completed 201105/06/2014 RECORDED 06/27/20 12 10:38AM BY ZULEIKA KAN MA, ANNOTATI ON/ADDEN DUM JENIFER Cavanaugh, [facility] 6 11:14:48 Condylom a acuminat um of the anogenit al region 763624019 Active 2020 JENIFER Pennington, [facility] 2 10:14:18 Glaucoma 26425692 Active 2020 JENIFER Pennington, [facility] 2 10:14:18 Pure hypercho lesterol emia 498903001 Completed 202007/17/2023 Juan Carlos Cabrera MD [address] [facility] [address], [place], [address] , [facility] 4 11:58:56 Jaw pain 808366747 Completed 201105/06/2014 RECORDED 06/27/20 12 10:38AM BY ZULEIKA KAN MA, SAJAN ON/ADDEN DUM JENIFER Cavanaugh, [facility] 6 11:14:48 Laborato ry procedur e performe d 758633046 Completed 201305/06/2014 RECORDED 11/21/19 14 1:54PM BY ZULEIKA KAN MA, ANNOTATI ON/ADDEN DUM Jonathan KendraJENIFER Keys, [facility] 6 11:14:48 Low back pain 761509612 Completed 201205/06/2014 RECORDED 11/09/19 13 2:18PM BY ZULEIKA KAN MA, ANNOTMAGDA ON/ADDEN DUM Jonathan JENIFER Gaming, [facility] 6 11:14:48 Lyme disease 51647276 Completed 10/17/2017 Juan Carlos Cabrera MD [address], [place], [address] , [facility] 4 11:58:15 Postproc edural state finding 764495007 Completed 09/09/2014 JENIFER Cavanaugh, [facility] 6 11:14:48 Screenin g for malignan t neoplasm of colon Completed 201105/06/2014 RECORDED 06/27/20 12 10:38AM BY ZULEIKA KAN MA, SAJAN ON/ADDEN DUM JENIFER Cavanaugh, [facility] 6 11:14:48 Tobacco dependen ce syndrome 98119968 Completed 202007/17/2023 Juan Carlos Cabrera MD [address], [place], [address] , [facility] 4 11:59:36 Wheezing 66185029 Completed 201205/06/2014 RECORDED 03/01/20 13 10:00AM BY ZULEIKA KAN MA, ANNOTATI ON/ADDEN DUM Jonathan JENIFER Gaming, [facility] 6 11:14:48 Abdomina l aortic aneurysm 193821784 Completed 201305/29/2014 STORY: 2.9CM (OCT 2013); RECORDED 11/21/19 14 1:54PM BY ZULEIKA KAN MA, SAJAN ON/ADDEN DUM JENIFER Cavanaugh, [facility] 6 11:14:48 Chronic bronchit is 88885941 Completed 201205/29/2014 RECORDED 06/28/20 13 10:13AM BY RYDER LOU MD, SAJAN ON/ADDEN DUM JENIFER Cavanaugh, [facility] 6 11:14:48 Acute pharyngi tis 198145952 Completed 201105/29/2014 IMPRESSI ON: RAPID STREP NEGATIVE , EXAM C/W WITH STREP, WILL SEND CULTURE AND TREAT.; RECORDED 06/27/20 12 10:38AM BY ZULEIKA KAN MA, SAJAN ON/ADDEN DUM JENIFER Cavanaugh, [facility] 6 11:14:48 Depressi ve disorder 66182898 Completed 201105/29/2014 RECORDED 06/27/20 12 10:38AM BY ZULEIKA KAN MA, SAJAN ON/ADDEN JENIFER Olivares, [facility] 6 11:14:48 Type 1 diabetes mellitus 08449347 Completed 201205/29/2014 STORY: KORFF; RECORDED 06/28/20 13 9:34AM BY JONATHAN DUMONT MA, SAJAN ON/FREDDIEEN MARLYN Cabrera MD [address] [facility] [address], [place], [address] , [facility] 4 11:59:19 Disorder of skin 19086252 Completed 201105/29/2014 RECORDED 06/27/20 12 10:38AM BY ZULEIKA KAN MA, ANNOTATI ON/ADDEN DUM Juan Carlos Cabrera MD [address] [facility] [address], [facility] [place], [address] , [facility] 4 11:57:35 Family history of Cardiova scular disease 168517872 Completed 201105/29/2014 STORY: FATHER; RECORDED 06/27/20 12 10:38AM BY ZULEIKA KAN MA, ANNOTMAGDA ON/ADDEN DUM JENIFER Cavanaugh, [facility] 6 11:14:48 Influenz a vaccine needed [id number] 06 Completed 201205/29/2014 RECORDED 06/28/20 13 9:37AM BY JONATHAN DUMONT MA, OFFICE VISIT JENIFER Cavanaugh [facility] 6 11:14:48 Genital herpes simplex 69379533 Completed 201105/29/2014 RECORDED 06/27/20 12 10:38AM BY ZULEIKA KAN MA, ANNOTMAGDA ON/ADDEN DUM JENIFER Cavanaugh, [facility] 6 11:14:48 Jaw pain 090693895 Completed 201105/29/2014 RECORDED 06/27/20 12 10:38AM BY ZULEIKA KAN MA, SAJAN ON/ADDEN DUM JENIFER Cavanaugh [facility] 6 11:14:48 Laborato ry procedur e performe d 389456686 Completed 201305/29/2014 RECORDED 11/21/19 14 1:54PM BY ZULEIKA KAN MA, ANNOTATI ON/ADDEN DUM JENIFER Cavanaugh [facility] 6 11:14:48 Low back pain 316733325 Completed 201205/29/2014 RECORDED 11/09/19 13 2:18PM BY ZULEIKA KAN MA, ANNOTMAGDA ON/ADDEN DUM Jonathan delong MA null, [facility] 6 11:14:48 Screenin g for malignan t neoplasm of colon Completed 201105/29/2014 RECORDED 06/27/20 12 10:38AM BY ZULEIKA KAN MA, ANNOTMAGDA ON/ADDEN DUM Jonathan Kendra-Ma JENIFER delong, [facility] 6 11:14:48 Wheezing 05934634 Completed 201205/29/2014 RECORDED 03/01/20 13 10:00AM BY ZULEIKA KAN MA, ANNOTMAGDA ON/ADDEN DUM Jonathan Kendra-Ma JENIFER delong, [facility] 6 11:14:48 Abdomina l aortic aneurysm 932223698 Completed 201305/30/2014 STORY: 2.9CM (OCT 2013); RECORDED 11/21/19 14 1:54PM BY ZULEIKA KAN MA, SAJAN ON/ADDEN DUM Jonathan Kendra-JENIFER Cooley, [facility] 6 11:14:48 Chronic bronchit is 09227328 Completed 201205/30/2014 RECORDED 06/28/20 13 10:13AM BY RYDER LOU MD, SAJAN ON/ADDEN DUM Jonathan Kendra-JENIFER Cooley, [facility] 6 11:14:48 Acute pharyngi tis 761318838 Completed 201105/30/2014 IMPRESSI ON: RAPID STREP NEGATIVE , EXAM C/W WITH STREP, WILL SEND CULTURE AND TREAT.; RECORDED 06/27/20 12 10:38AM BY ZULEIKA KAN MA, SAJAN ON/ADDEN DUM Jonathan Kendra-Ma JENIFER delong, [facility] 6 11:14:48 Depressi ve disorder 09726680 Completed 201105/30/2014 RECORDED 06/27/20 12 10:38AM BY ZULEIKA KAN MA, ANNOTMAGDA ON/ADDEN DUM JENIFER Cavanaugh, [facility] 6 11:14:48 Type 1 diabetes mellitus 84922462 Completed 201205/30/2014 STORY: KORANA; RECORDED 06/28/20 13 9:34AM BY JONATHAN DUMONT MA, SAJAN ON/ADDEN DUM Juan Carlos Cabrera MD [address] [facility] [address], [place], [address] , [facility] 4 11:59:19 Disorder of skin 35833563 Completed 201105/30/2014 RECORDED 06/27/20 12 10:38AM BY ZULEIKA KAN MA, SAJAN ON/ADDEN DUM Juan Carlos Cabrera MD [address] [facility] [address], [place], [address] , [facility] 4 11:57:35 Family history of Cardiova scular disease 810468346 Completed 201105/30/2014 STORY: FATHER; RECORDED 06/27/20 12 10:38AM BY ZULEIKA KAN MA, ANNOTATI ON/ADDEN DUM JENIFER Cavanaugh, [facility] 6 11:14:48 Influenz a vaccine needed 33173374061 06 Completed 201205/30/2014 RECORDED 06/28/20 13 9:37AM BY JONATHAN DUMONT MA, OFFICE VISIT JENIFER Cavanaugh, [facility] 6 11:14:48 Genital herpes simplex 70536814 Completed 201105/30/2014 RECORDED 06/27/20 12 10:38AM BY ZULEIKA KAN MA, ANNOTATI ON/ADDEN DUM JENIFER Cavanaugh, [facility] 6 11:14:48 Jaw pain 946029309 Completed 201105/30/2014 RECORDED 06/27/20 12 10:38AM BY ZULEIKA LORETA, MA, ANNOTATI ON/ADDEN DUM Jonathan Kendra-JENIFER Cooley, [facility] 6 11:14:48 Laborato ry procedur e performe d 702788045 Completed 201305/30/2014 RECORDED 11/21/19 14 1:54PM BY ZULEIKA KAN MA, ANNOTATI ON/ADDEN DUM Jonathan Kendra-JENIFER Cooley, [facility] 6 11:14:48 Low back pain 900379843 Completed 201205/30/2014 RECORDED 11/09/19 13 2:18PM BY ZULEIKA KAN MA, ANNOTATI ON/ADDEN DUM Jonathan Kendra-JENIFER Cooley, [facility] 6 11:14:48 Screenin g for malignan t neoplasm of colon Completed 201105/30/2014 RECORDED 06/27/20 12 10:38AM BY ZULEIKA KAN MA, ANNOTATI ON/ADDEN DUM Jonathan Kendra-JENIFER Cooley, [facility] 6 11:14:48 Wheezing 65706228 Completed 201205/30/2014 RECORDED 03/01/20 13 10:00AM BY ZULEIKA KAN MA, ANNOTATI ON/ADDEN DUM Jonathan Kendra-JENIFER Cooley, [facility] 6 11:14:48 Insomnia 551530132 Active 2020 JENIFER Pennington, [facility] 2 10:14:18 Genital herpes simplex 61000331 Active 2020 JENIFER Pennington, [facility] 2 10:14:18 Acute non-ST segment elevatio n myocardi al infarcti on 321799888 Completed 202001/15/2024 Jua nCarlos Cabrera MD [address] [address], [facility] [place], [address] , [facility] 4 11:56:26 Abdomina l aortic aneurysm 304612883 Active 2020 JENIFER Pennington, [facility] 2 10:14:18 Chest pain 63531752 Completed 04/12/2017 Juan Carlos Cabrera MD [address], [place], [address] , [facility] 4 11:56:39 Anal warts 473011620 Active 2020 JENIFER Pennington, [facility] 2 10:14:18 Lumbar radiculo efrain 032606001 Completed 202007/19/2024 Juan Carlos Cabrera MD [address], [place], [address] , [facility] 4 11:58:18 Open-ang le glaucoma 60596367 Active 2020 JENIFER Pennington, [facility] 2 10:14:18 History of malignan t neoplasm of skin Completed 201604/12/2017 Removal Reason: excision JENIFER Cavanaugh, [facility] 7 16:22:52 Basal cell carcinom a of nose 018637715 Completed 201406/23/2015 Removal Reason: excision Juan Carlos Cabrera MD [address], [place], [address] , [facility] 4 11:59:58 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 882249464 Completed 201707/17/2024 Juan Carlos Cabrera MD [address], [place], [address] , [facility] 5 11:01:15 Carotid artery stenosis 24199102 Active 2017 JENIFER Pennington, [facility] 2 10:14:18 Acute exacerba tion of chronic obstruct chandrakant pulmonar y disease 668317025 Completed 201707/17/2023 Juan Carlos Cabrera MD [address], [place], [address] , [facility] 4 11:56:03 Pituitar y mass 886518924 Completed 201807/17/2024 Juan Carlos Cabrera MD [address] [facility] [address], [place], [address] , [facility] 5 15:25:07 Lyme disease 86151882 Completed 202007/17/2023 Juan Carlos Cabrera MD [address] [facility] [address], [place], [address] , [facility] 4 11:58:15 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 21083326759 9100 Completed 202007/17/2023 Juan Carlos Cabrera MD [address] [facility] [address], [place], [address] , [facility] 4 11:59:40 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 905004544 Active 2020 JENIFER Pennington, [facility] 2 10:14:18 Hypercho lesterol emia 02664668 Completed 07/17/2023 Juan Carlos Cabrera MD [address] [facility] [address], [place], [address] , [facility] 3 13:11:42 Vitreous floaters 95561600 Completed 202007/19/2024 Juan Carlos Cabrera MD [address] [facility] [address], [place], [address] , [facility] 4 11:59:32 Cataract 156839047 Active 2020 JENIFER Pennington, [facility] 2 10:14:18 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 666303988 Active 2017 Mirna Simonmanolo driver, [facility] 1 11:28:54 Type 1 diabetes mellitus without complica tion 434236748 Completed 201712/23/2019 Juan Carlos Cabrera MD [address], [place], [address] , [facility] 4 11:59:25 Chronic obstruct chandrakant pulmonar y disease 36265853 Active 2019 JENIFER Pennington, [facility] 2 10:14:18 Serum creatini ne above referenc e range 704907631 Completed 201907/17/2023 Juan Carlos Cabrera MD [address], [place], [address] , [facility] 4 11:59:09 Exposure to SARS-CoV -2 Completed 07/06/2020 Removal Reason: Problem added by user zahra dumont from the COVID-19 watch flag JENIFER Cavanaugh, [facility] 0 11:14:48 Renal disorder due to type 1 diabetes mellitus 300382881 Completed 201907/17/2024 Juan Carlos Cabrera MD [address], [place], [address] , [facility] 4 11:59:49 Squamous cell carcinom a of muslim 230643772 Completed 202007/19/2024 Juan Carlos Cabrera MD [address], [place], [address] , [facility] 4 11:59:46 Hemipleg ia and/or hemipare sis followin g stroke 96346030606 107 Active 2020 JENIFER Pennington, [facility] 2 10:14:18 Dysfunct ion of eustachi an tube 48305056 Completed 202007/17/2023 Juan Carlos Cabrera MD [address], [place], [address] , [facility] 3 13:11:32 Chronic kidney disease stage 3 550123176 Completed 202009/22/2022 Juan Carlos Cabrera MD [address], [place], [address] , [facility] 4 11:56:43 Microalb uminuria 242787304 Active 2020 LABS 02/24/202 1 ACR 93.8 JENIFER Pennington, [facility] 2 10:18:20 Mixed anxiety and depressi ve disorder 971390101 Completed 202007/17/2023 Juan Carlos Cabrera MD [address], [place], [address] , [facility] 3 13:12:26 Hyperten sive renal disease 88616291 Active 2021 JENIFER Pennington, [facility] 2 10:18:20 COVID-19 262484177 Completed 202107/17/2023 Juan Carlos Cabrera MD [address], [place], [address] , [facility] 4 11:57:24 Pituitar y microade noma 014094117 Active 2021 JENIFER Han, [facility] 4 13:08:14 Myocardi al infarcti on 41382103 Completed 202107/17/2024 Juan Carlos Cabrera MD [address], [place], [address] , [facility] 4 11:58:30 Type 1 diabetes mellitus 44580917 Completed 202009/12/2022 Juan Carlos Cabrera MD [address], [place], [address] , [facility] 4 11:59:19 Renal osteodys trophy 27624411 Completed 202003/08/2021 JENIFER Pennington, [facility] 2 09:26:22 Coronary arterios clerosis 93171527 Active 2021 JENIFER Pennington, [facility] 2 10:18:20 Vitamin D deficien cy 55768971 Active 2020 JENIFER Pennington, [facility] 2 10:14:18 Pituitar y adenoma 668939446 Completed 202107/17/2024 Juan Carlos Cabrera MD [address] [facility] [address], [place], [address] , [facility] 5 15:25:13 Hyperlip idemia 89006197 Active 2020 JENIFER Pennington, [facility] 2 10:14:19 Cerebrov ascular accident 228427011 Completed 202107/17/2024 Juan Carlos Cabrera MD [address], [place], [address] , [facility] 4 12:23:30 Divertic ular disease 780235063 Completed 202107/19/2024 Juan Carlos Cabrera MD [address], [place], [address] , [facility] 4 12:00:13 Anxiety 67731751 Active 2021 JENIFER Pennington, [facility] 2 10:18:21 Renal osteodys trophy 49791990 Completed 202003/08/2021 JENIFER Morejon, [facility] 4 11:24:46 Type 1 diabetes mellitus without complica tion 078091666 Completed 201709/12/2022 Juan Carlos Cabrera MD [address], [place], [address] , [facility] 4 11:59:25 Cough 48002102 Completed 202107/17/2023 Juan Carlos Cabrera MD [address], [place], [address] , [facility] 4 11:57:21 Inguinal hernia 288957922 Active 2021 Right side Juan Carlos Cabrera MD [address], [place], [address] , [facility] 2 10:47:40 Chronic kidney disease stage 3B 810722625 Active 2021 JENIFER Morejon, [facility] 4 13:08:15 History of SARS-CoV -2 28742914058 7002876 Active 2022 JENIFER Morejon, [facility] 4 13:08:14 History of Lyme disease 714698040 Active 2018 JENIFER Morejon, [facility] 4 13:08:14 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 31938427 Active 2022 JENIFER Morejon, [facility] 4 13:08:14 Ex-smoke r 8366920 Active 2022 JENIFER Morejon, [facility] 4 13:08:15 Weight loss 37800794 Completed 202307/17/2024 Juan Carlos Cabrera MD [address], [place], [address] , [facility] 4 12:24:37 Recurren t falls 723085382 Completed 202307/19/2024 Juan Carlos Cabrera MD [address] [facility] [address], [place], [address] , [facility] 4 11:59:06 Spastici ty as sequela of stroke 75684849126 9102 Active 2020 JENIFER Morejon, [facility] 4 13:08:14 History of divertic ulitis 31877356938 9100 Active 2018 JENIFER Morejon, [facility] 4 13:08:14 Acquired melanocy tic nevus of retina 33984071409 9107 Active 2018 JENIFER Morejon, [facility] 4 13:08:14 Serum creatini ne above referenc e range 576787460 Completed 201901/15/2024 Juan Carlos Cabrera MD [address] [facility] [address], [place], [address] , [facility] 4 11:59:09 Acute exacerba tion of chronic obstruct chandrakant pulmonar y disease 171087355 Completed 201707/17/2024 Juan Carlos Cabrera MD [address], [place], [address] , [facility] 4 11:56:03 Mixed anxiety and depressi ve disorder 136204018 Active 2020 JENIFER Morejon, [facility] 4 13:08:14 Lyme disease 24006554 Completed 202007/17/2024 Juan Carlos Cabrera MD [address] [facility] [address], [place], [address] , [facility] 4 11:58:15 Pure hypercho lesterol emia 937055664 Completed 202007/17/2024 Juan Carlos Cabrera MD [address] [facility] [address], [place], [address] , [facility] 4 11:58:56 History of cerebrov ascular accident 428316049 Active 2018 JENIFER Morejon, [facility] 4 13:08:14 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 26287859802 9100 Completed 202007/19/2024 Juan Carlos Cabrera MD [address] [address], [place], [address] , [facility] 4 11:59:40 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 515181954 Active 2018 JENIFER Morejon, [facility] 4 13:08:14 Chronic kidney disease stage 3 982418810 Completed 202007/17/2024 Juan Carlos Cabrera MD [address] [address], [place], [address] , [facility] 4 11:56:43 Type 1 diabetes mellitus 62274157 Completed 202007/17/2024 Juan Carlos Cabrera MD [address] [address], [place], [address] , [facility] 4 11:59:19 Cough 61002260 Completed 202101/10/2024 Juan Carlos Cabrera MD [address], [address] , [facility] 4 11:57:21 Essentia l hyperten jj 27220003 Active 2019 JENIFER Morejon, [facility] 4 13:08:15 Intermit tent claudica tion 08548506 Active 2018 Smitha Valera MA null, [facility] 4 13:08:15 Bilatera l stenosis of carotid arteries 080689726 Active 2018 Smitha Valera MA null, [facility] 4 13:08:15 COVID-19 475448077 Completed 202101/10/2024 Juan Carlos Cabrera MD [address], [place], [address] , [facility] 4 11:57:24 Tobacco dependen ce syndrome 93278758 Completed 202007/17/2024 Juan Carlos Cabrera MD [address], [place], [address] , [facility] 4 11:59:36 Constipa tion 76213912 Completed 202307/19/2024 Juan Carlos Cabrera MD [address], [place], [address] , [facility] 4 11:57:15 Pruritic disorder 288428105 Completed 202307/19/2024 Juan Carlos Cabrera MD [address], [place], [address] , [facility] 4 11:58:52 Fatigue 55814650 Completed 202307/17/2024 Juan Carlos Cabrera MD [address], [place], [address] , [facility] 4 12:23:21 History of non-ST segment elevatio n myocardi al infarcti on 780474734 Active 2023 Juan Carlos Cabrera MD [address], [place], [address] , [facility] 4 08:27:10 Atherosc lerotic renal artery stenosis 006337594 Active 2023 Juan Carlos Cabrera MD [address], [place], [address] , [facility] 4 08:28:24 Uncontro lled type 2 diabetes mellitus 636084443 Completed 202307/19/2024 Juan Carlos Cabrera MD [address], [place], [address] , [facility] 4 11:59:22 Hypergly cemia due to type 2 diabetes mellitus 36881742768 9109 Active 2023 Juan Carlos Cabrera MD [address], [place], [address] , [facility] 4 12:22:44 Insulin treated type 2 diabetes mellitus 602106404 Active 2023 Juan Carlos Cabrera MD [address], [place], [address] , [facility] 4 12:31:00 Type 1 diabetes mellitus without complica tion 205577635 Completed 201707/19/2024 Juan Carlos Cabrera MD [address], [place], [address] , [facility] 4 11:59:25 Serum creatini ne above referenc e range 120608932 Completed 201907/19/2024 Juan Carlos Cabrera MD [address], [place], [address] , [facility] 4 11:59:09 Acute exacerba tion of chronic obstruct chandrakant pulmonar y disease 809885361 Completed 201707/19/2024 Juan Carlos Cabrera MD [address], [place], [address] , [facility] 4 11:56:03 Myocardi al infarcti on 21889249 Completed 202107/19/2024 Juan Carlos Cabrera MD [address], [place], [address] , [facility] 4 11:58:30 Cerebrov ascular accident 878286257 Active 2021 Smitha Valera [place] [facility] 4 11:24:46 Lyme disease 32016560 Completed 202007/19/2024 Juan Carlos Cabrera MD [address], [place], [address] , [facility] 4 11:58:15 Pituitar y mass 344847896 Completed 201812/05/2024 Juan Carlos Cabrera MD [address], [place], [address] , [facility] 5 15:25:07 Pituitar y adenoma 011283394 Completed 202112/05/2024 Juan Carlos Cabrera MD [address], [place], [address] , [facility] 5 15:25:13 Pure hypercho lesterol emia 666233541 Completed 202007/19/2024 Juan Carlos Cabrera MD [address], [place], [address] , [facility] 4 11:58:56 Chest pain 40826451 Completed 202307/19/2024 Juan Carlos Cabrera MD [address], [place], [address] , [facility] 4 11:56:39 Acute non-ST segment elevatio n myocardi al infarcti on 811965308 Completed 202007/19/2024 Juan Carlos Cabrera MD [address], [place], [address] , [facility] 4 11:56:26 Basal cell carcinom a of nose 075904492 Completed 201407/19/2024 Juan Carlos Cabrera MD [address], [place], [address] , [facility] 4 11:59:58 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 580718301 Completed 201707/19/2024 Juan Carlos Cabrera MD [address], [place], [address] , [facility] 5 11:01:15 Renal disorder due to type 1 diabetes mellitus 986558344 Completed 201907/19/2024 Juan Carlos Cabrera MD [address], [place], [address] , [facility] 4 11:59:49 Chronic kidney disease stage 3 186106586 Completed 202007/19/2024 Juan Carlos Cabrera MD [address], [place], [address] , [facility] 4 11:56:43 Uncontro lled type 1 diabetes mellitus 126497011 Completed 202007/19/2024 Juan Carlos Cabrera MD [address], [place], [address] , [facility] 4 11:59:29 Type 1 diabetes mellitus 15191789 Completed 202007/19/2024 Juan Carlos Cabrera MD [address], [address] , [facility] 4 11:59:19 Cough 55782526 Completed 202107/19/2024 Juan Carlos Cabrera MD [address], [place], [address] , [facility] 4 11:57:20 Diarrhea 12002314 Active [address] Wells. Juan Carlos Cabrera MD [address] [address], [address] , [facility] 4 11:58:13 Chronic kidney disease due to type 2 diabetes mellitus 31399347674 8 Completed 202301/25/2024 Smitha Valera MA [facility] 4 11:24:46 COVID-19 231591252 Completed 202107/19/2024 Juan Carlos Cabrera MD [address] [address], [address] , [facility] 4 11:57:24 Tobacco dependen ce syndrome 70815871 Completed 202007/19/2024 Juan Carlos Cabrera MD [address] [address], [place], [address] , [facility] 4 11:59:36 Disorder of skin 42657333 Completed 201107/19/2024 Juan Carlos Cabrera MD [address] [address], [place], [address] , [facility] 4 11:57:35 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 692059082 Completed 202412/06/2024 Juan Carlos Cabrera MD [address] [address], [address] , [facility] 5 11:01:15 Notes:Some problems listed i n Documents: #[id number], #[id number], #[id number] could not be added to this patient's chart. Please review these documents and add these problems to the patient's chart manually as needed. Problem Notes None recorded. Procedures Surgical History Date Name Laterality Status Provider Name and Address Organization Details Recorded Time 01/15/20 Diabetic Foot Exam (Monofilament) completed Juan Carlos Cabrera MD [address] [facility], [place], [address], [facility] 01/14/2025 11:59:37 07/19/20 24 Advanced Care Planning completed Smitha Valera MA [facility] 07/19/2024 11:23:18 07/17/20 23 Advanced Care Planning completed Juan Carlos Cabrera MD [address] [facility] [address] [facility], [place], [address], [facility] 07/17/2023 13:32:53 07/17/20 23 Diabetic Foot Exam (Monofilament) completed Juan Carlos Cabrera MD [address] [facility] [address] [facility], [place], [address], [facility] 07/17/2023 13:32:00 11/29/19 22 Diabetic Foot Exam (Monofilament) completed Juan Carlos Cabrera MD [address] [address], [place], [address], [facility] 11/29/2021 10:53:47 04/01/20 21 insertion of renal artery stent completed Mirna Guan [facility] 04/05/2021 15:25:49 10/23/19 21 angioplasty of renal artery completed Juan Carlos Cabrera MD [address] [address], [place], [address], [facility] 07/17/2023 13:23:12 12/23/19 20 Mini-Cog Test completed Jonathan pappas MA [facility] 12/23/2019 08:37:07 10/19/20 18 Mini-Cog Test completed Matilde Dowling MA [facility] 10/19/2018 09:36:52 04/16/20 18 Diabetic Foot Exam (Monofilament) completed Jonathan pappas MA [facility] 04/16/2018 14:05:15 10/17/20 17 Fall Risk Assessment completed Jonathan pappas MA [facility] 10/17/2017 08:36:49 10/17/20 17 Mini-Cog Test completed Ryder Lou MD [address] [facility] [address], [place], [address], [facility] 10/17/2017 09:01:30 10/23/19 17 Oral surgery procedure completed Jonathan Gardner-Tyler pappas, [facility] 04/13/2017 09:19:40 02/12/20 16 Colonoscopy completed Norma Hilario [facility] 04/18/2017 10:15:28 07/07/20 15 Cancer Surgery completed Jonathan Gardner-Tyler os, [facility] 04/16/2018 14:05:51 06/23/20 14 Angioplasty completed Jonathan Gardner-Tyler pappas, [facility] 04/16/2018 14:08:25 07/23/20 09 Carotid Endarterectomy completed Juan Carlos Cabrera MD [address] [facility] [address], [place], [address], [facility] 07/17/2023 13:22:38 10/23/18 98 Partial removal of colon completed Jonathan pappas, [facility] 07/01/2014 09:23:44 Appendectomy completed Jonathan pappas, [facility] 07/01/2014 09:23:44 Imaging Results Imaging Date Name Status LastModified by Organiz ation Details LastModified Time 11/26/2023 XR, foot, 3 or more view completed [address] (Medical Records) [address] [place] [address], [address], 11/27/2023 16:06:16 11/26/2023 CT, head + brain, w/o contrast completed [address] (Medical Records) [address] [place], [address], 11/27/2023 16:06:58 11/26/2023 CT, cervical spine, w/o contrast completed [address] (Medical Records) [address] [place], [address], 11/27/2023 16:07:44 01/04/2024 US, doppler, arterial completed [address] [facility] [address] [place], [address], 01/05/2024 09:11:15 01/04/2024 ankle brachial index, complete completed [address] [facility] [address] [place], [address], 01/05/2024 09:12:14 05/16/2024 CT chest ldct program follow up completed [facility] (Outpt Imaging) [address] [place], [address], 05/31/2024 08:51:20 05/16/2024 LDCT, chest, for lung cancer screening completed [address] [place], [address], 05/22/2024 09:26:28 05/16/2024 LDCT, chest, for lung cancer screening completed [address] - [facility] [address] [place], [address], 05/22/2024 09:26:17 Procedure Notes None recorded. Medical Equipment None Reported. Allergies Allergen ID Allergen Name Allergen Category Reaction Reaction Severity Criticality Documentation Date Start Date Code Code System Note Provider Name and Address Organization Details Recorded Time 40478 No known allergy (situatio n) Not available Not available Not available Not available 03/30/2021 [id number] SNOMED Mirna driver [place] - [facility] 13:18:26 No known drug allergies Medications Name [...] ONE DROP TO BOTH EYES AT BEDTIME 01/14 completed Not Available Not Available Not Available atorvasta tin 80 mg tablet TAKE 1 TABLET BY MOUTH DAILY EVERY EVENING active Not Available Not Available No t Available acetamino phen 325 mg tablet Take 2 [...] 100 mg tablet,ex tended release 24 hr TAKE 1 TABLET BY MOUTH ONCE DAILY 2024 active Not Available Not Available Not Avai lable Lantus U-100 Insulin 100 unit/mL subcutane ous [...] MOUTH EVERY DAY 03/[address] Rehman Not Available Not Available Not Available amlodipin e 5 mg tablet 08/12 completed Not Available Not Available Not Available valacyclo vir 500 mg tablet EVERY 12 HOURS FOR RECURREN T HERPES GENITALI S 06/28 completed RECORDED 06/28/20 13 9:38AM BY JONATHAN DUMONT MA, OFFICE VISIT; Not Available Not Available Not Available aspirin 81 mg tablet,de layed release TAKE 1 TABLET BY MOUTH DAILY IN THE MORNING 2024 active Not Available Not Available Not Avai lable tramadol 50 mg tablet TAKE ONE TABLET [...] 08/07 completed RECORDED 09/02/20 10 2:22PM BY MEGHA ZHOU PA-C, MEDICATI ON AUTO-HORTENSIA CTIVATIO N; [...] aspart U-100 100 unit/mL subcutane ous solution Inject 18 units 3 times a day by sub-q route with meal(s) for 84 days. active Not Available Not Available No t Available hydrocodo ne 7.5 mg-acetam inophen 325 [...] 1 TABLET BY MOUTH DAILY AT BEDTIME 2024 active Not Available Not Available Not Avai lable pravastat in 20 mg tablet DAILY 07/04 [...] 1 TABLET BY MOUTH DAILYIN THE MORNING active Not Available Not Available No t Available ezetimibe 10 mg tablet TAKE 1 TABLET [...] unit/mL (3 mL) subcutane ous sliding scale 01/14 completed from endo Not Available Not Available Not Available Tylenol PM Extra Strength 25 mg-500 mg tablet Take 2 tablets every day by oral route at bedtime. active Not Available Not Available No t Available metoprolo l tartrate 25 mg tablet Take 1 {tbl} twice a day by oral route. 07/19 completed Not Available Not Available Not Available emtricita bine 200 mg-tenofo vir disoproxi l fumarate 300 mg tablet 05/10 completed Not Available Not Available Not Available entecavir 0.5 mg tablet Take 1 tablet every day by oral route. active Dr Ashok witt Not Available Not Available Not Available melatonin 3mg , 2 tabs as [...] 06/20 completed RECORDED 06/20/20 11 10:48AM BY JONATHAN DUMONT MA, OFFICE VISIT; Not Available Not Available Not Available Proscar 0.005 %s. 09/20 completed Not Available Not Available Not Available Allerest 90 mcg/actu ats. 04/30 completed Not Available Not Available Not Available Horton-3 DAILY 06/28 completed RECORDED 06/28/20 13 9:39AM BY JONATHAN DUMONT MA, OFFICE VISIT; Not Available Not Available Not Available Vitamin D3 2000 units as directed 05/28 completed Not Available Not Available Not Available Danyelle 1 [drp]. 08/12 completed Not Available Not [...] 06/20 completed RECORDED 06/20/20 11 10:48AM BY JONATHAN DUMONT MA, OFFICE VISIT; Not Available Not [...] Available Not Available FreeStyle David 14 Day [place] 12/22 completed Not Available Not Available Not Available FreeStyle David 14 Day Sensor kit 12/22 completed Not Available Not Available Not Available Fluzone High-Dose 2019-20 (PF) 180 mcg/0.5 mL intramusc ular syringe VACCINAT ION ADMINIST ERED BY PHARMACI ST 05/25 completed Not Available Not Available Not Available CeQur Simplicit y 2 unit device active Not Available Not Available Not Available CeQur Simplicit y Plant Electrician active Not Available Not Available Not Available [...] Address Organization Details Last Updated DateTime 4 171.45 cm 20.8 kg/m2 45887.9 7 g 61 /min 96 % 96 % 98.4 [degF] 120 mm[Hg] 54 mm[Hg] Vanessa Morataya MA [facility] 4 15:38:30 Date Recorded Body height Body mass index (BMI) Body weight Heart rate Oxygen saturation Oxygen saturation in Arterial blood by Pulse oximetry Body temperature Systolic blood pressure Diastolic blood pressure Provider Name and Address Organization Details Last Updated DateTime 4 171.45 cm 21.6 kg/m2 60538.9 3 g 63 /min 99 % 99 % 98.6 [degF] 124 mm[Hg] 58 mm[Hg] Megha Villarreal MA [facility] 4 14:26:51 Date Recorded Body height Body mass index (BMI) Body weight Oxygen saturation Oxygen saturation in Arterial blood by Pulse oximetry Heart rate Body temperature Systolic blood pressure Diastolic blood pressure Provider Name and Address Organization Details Last Updated DateTime 4 171.45 cm 23.5 kg/m2 39739.4 4 g 99 % 99 % 61 /min 98.2 [degF] 121 mm[Hg] 51 mm[Hg] Smitha Valera MA [facility] 4 11:24:00 Date Recorded Body height Body mass index (BMI) Body weight Heart rate Oxygen saturation Oxygen saturation in Arterial blood by Pulse oximetry Body temperature Systolic blood pressure Diastolic blood pressure Provider Name and Address Organization Details Last Updated DateTime 5 171.45 cm 23.9 kg/m2 56924.8 2 g 56 /min 98 % 98 % 98.1 [degF] 130 mm[Hg] 70 mm[Hg] Vanessa Morataya MA [facility] 5 10:38:13 Date Recorded Body height Body mass index (BMI) Body weight Heart rate Oxygen saturation Oxygen saturation in Arterial blood by Pulse oximetry Body temperature Systolic blood pressure Diastolic blood pressure Provider Name and Address Organization Details Last Updated DateTime 5 171.45 cm 24.2 kg/m2 96349 g 59 /min 99 % 99 % 98.4 [degF] 133 mm[Hg] 58 mm[Hg] Jonathan greer MA [facility] 11:30:08 Social History Question Answer Notes LastModified by Organizat ion Details LastModified Time Tobacco Smoking Status Former Smoker January 12 2021 JENIFER Morejon, [facility] 03/15/2021 14:03:23 Do You Have An Advance [...] available 08/12/2022 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 No Information not available 05/25/2020 Are You Or Anyone In Your Household A Health Care Provider Or Emergency Responder? No Information not available 05/25/2020 To The Best Of Your Knowledge Have You Been In Close Proximity To Any Individual Who Tested Positive For COVID-19? No [email or web address] Information not available 07/19/2024 *AWV ONLY* Are You Presently Prescribed Opioid Medication By PCP Or Specialist? If YES -Provider Assess The Benefit For Other, Non-opioid Pain Therapies Instead, Even If The Patient Does Not Have OUD But Is Possibly At Risk. No Information not available 07/06/2020 Have You Recently Traveled To A COVID-19 High Risk Area Or Gathering In The Last 10 Days? No [email or web address] Information not available 02/24/2021 What Was The Date Of Your Most Recent Tobacco Screening? 01/14/2025 Information not available 01/14/2025 How Many Children Do You Have? 0 [...] Time Are you able to walk? YESASSIST [email or web address] Information not available 01/14/2025 Are you able to care for yourself? [...] Stones N Hyperthyroidism N Breast Cancer N Hypothyroidism N Lung Disease N Depression N COPD N Defects or Inherited Disease N Anesthesia Complications N Headaches/Migraines N Varicose Veins N Anxiety Disorder Y Obesity N Vision or Eye Problems N Arthritis N Head Injury/Concussion N Infertility N Polyps N Congenital Anomalies N Acid Reflux (GERD) Y Cancer N Stroke Y ADHD N Endometriosis N High Cholesterol N Liver Disease N Fibromyalgia N Kidney Disease Y Heart Problems N Ear or Hearing Problems N Hospitalizations Y Thyroid Problems N GI Problems N Acne N Eating Disorder N Skin Problems N Anemia N Constipation N Bladder Problems N Mental Illness N Diabetes Y Ovarian Cancer N Blood Transfusions N Seizures/Epilepsy N Tuberculosis N AIDS/HIV N Congestive Heart Failure (CHF) N Eczema N Abuse/Domestic Violence N Diverticulitis Y Asthma N Allergies N Reflux/GERD Y Hepatitis Y Pulmonary Embolism N Hypertension Y Chicken Pox N Autism Spectrum Disorder (ASD) N Osteoporosis N Immunizations Vaccine Type Date Status Note Provider Nam e and Address Organization Details Recorded Time zoster live 6 completed JENIFER Chavez [facility] 12/06/2024 10:31:26 [facility] recombinant 9 [facility] 14:04:02 Influenza, high-dose, trivalent, PF 9 [facility] 12[facility]06[facility]24 10:31:26 zoster recombinant 0 completed JENIFER Chavez [facility] 12/06/2024 10:31:25 COVID-19, mRNA, LNP-S, PF, 30 mcg/0.3 mL dose 1 completed JENIFER Chavez [facility] 12/06/2024 10:31:25 COVID-19, mRNA, LNP-S, PF, 30 mcg/0.3 mL dose 1 [facility] 10:31:25 influenza, seasonal, intradermal, preservative free 3 completed JENIFER Chavez [facility] 12/06/2024 10:31:26 Influenza, split virus, trivalent, preservative 2 completed JENIFER Chavez, [facility] 12/06/2024 10:31:26 COVID-19, mRNA, LNP-S, PF, 30 mcg/0.3 mL dose 1 completed JENIFER Chavez [facility] 12/06/2024 10:31:25 Tdap 7 completed JENIFER Chavez, [facility] 12/06/2024 10:31:25 Influenza, split virus, quadrivalent, preservative 1 completed JENIFER Chavez, [facility] 12/06/2024 10:31:25 Influenza, high-dose, trivalent, PF 8 completed JENIFER Chavez, [facility] 12/06/2024 10:31:26 Influenza, split virus, quadrivalent, PF 5 completed JENIFER Chavez, [facility] 12/06/2024 10:31:26 Pneumococcal conjugate PCV 13 6 completed JENIFER Chavez [facility] 12/06/2024 10:31:26 Tdap 8 completed JENIFRE Chavez, [facility] 12/06/2024 10:31:25 Influenza, high-dose, quadrivalent, PF 0 completed JENIFER Chavez, [facility] 12/06/2024 10:31:25 Influenza, split virus, quadrivalent, preservative 2 completed JENIFER Chavez, [facility] 11/27/2023 14:04:02 Influenza, split virus, quadrivalent, PF 6 completed JENIFER Chavez, [facility] 12/06/2024 10:31:26 Influenza, split virus, trivalent, PF 4 completed JENIFER Chavez, [facility] 12/06/2024 10:31:26 COVID-19, mRNA, LNP-S, bivalent, PF, 30 mcg/0.3 mL dose 2 completed JENIFER Chavez, [facility] 12/06/2024 10:31:25 Influenza, high-dose, trivalent, PF 7 completed JENIFER Chavez, [facility] 12/06/2024 10:31:26 pneumococcal polysaccharide PPV23 7 completed JENIFER Chavez, [facility] 12/06/2024 10:31:25 Pneumococcal conjugate PCV20, polysaccharide [id number] conjugate, adjuvant, PF 3 completed JENIFER Morejon, [facility] 12/01/2023 13:07:42 RSV, bivalent, protein subunit RSVpreF, diluent reconstituted, 0.5 mL, PF 3 [facility] 13:07:53 COVID-19, mRNA, LNP-S, PF, margie-sucrose, 30 mcg/0.3 mL 3 [facility]01[facility] 13:07:53 zoster live 9 completed JENIFER Chavez, [facility] 12/06/2024 10:31:26 RSV, bivalent, protein subunit RSVpreF, diluent reconstituted, 0.5 mL, PF 4 [facility] 01/14/2025 11:30:57 COVID-19, mRNA, LNP-S, PF, margie-sucrose, 30 mcg/0.3 mL 4 completed JENIFER Marquez, [facility] 01/14/2025 11:30:57 Influenza, split virus, trivalent, preservative 1 completed JENIFER Marquez, [facility] 05/17/2022 11:07:39 Influenza, split virus, trivalent, preservative 2 completed JENIFER Pennington, [facility] 08/12/2022 09:26:37 influenza, seasonal, intradermal, preservative free 3 completed JENIFER Pennington, [facility] 08/12/2022 09:26:36 Influenza, high-dose, quadrivalent, PF 3 completed JENIFER Irving, [facility] 07/17/2023 14:03:22 Influenza, high-dose, trivalent, PF 4 completed Juan Carlos Cabrera MD [address], [address], [facility] 07/19/2024 12:03:19 Past Encounters Encounter ID Performer Location Encounter Start Date Encounter Closed Date Diagnosis/Indication Diagnosis SNOMED-CT Code Diagnosis ICD10 Code Diagnosis Note [id number] [facility] [facility] [address] [facility] [place] [address] 06/18/2010 00:00:00 [id number] [employer] [address] [facility] [place] [address] 07/28/2010 00:00:00 [id number] [employer] [address] [facility] [place] [address] 02/05/2011 00:00:00 [id number] [employer] erce [address] [facility] [place] [address] 02/21/2011 00:00:00 [id number] [employer] erce [address] [facility] [place] [address] 06/20/2011 00:00:00 [id number] [employer] er[facility] [address] [facility] [place] [address] 01/31/2012 00:00:00 [id number] [employer] erce [address] [facility] [place] [address] 06/27/2012 00:00:00 [id number] auto[employer] erce [address] [facility] [place] [address] 08/18/2012 00:00:00 [id number] [employer] erce [address] [facility] [place] [address] 03/01/2013 00:00:00 [id number] [employer] erce [address] [facility] [place] [address] 06/28/2013 00:00:00 [id number] Jonathan delong MA Main Office [address] [address] [place] [address] 07/01/2014 09:00:11 07/01/2014 10:08:30 Adult health examination 433672884 Chronic ty pe B viral hepatitis 24109880 Tobacco de pendence syndrome 36925487 Uncontroll ed type 1 diabetes mellitus 810124231 Insomnia 351366451 Genital he rpes simplex 78818276 Condyloma acuminatum of the anogenital region 653104269 Varicella vaccination 43869198 [id number] Jonathan delong MA Main Office [address] [facility] [address] [place] [address] 07/10/2014 09:58:19 07/10/2014 10:45:08 Acute non-ST segment elevation myocardial infarction 264037445 07/02/2014. Tobacco de pendence syndrome 68751944 Needs infl uenza immunization 472298349 [id number] Jonathan delong MA Main Office [address] [facility] [address] [place] [address] 06/09/2015 10:54:05 06/09/2015 11:53:17 Chest pain 87560548 Anal warts 147042980 Screening for malignant neoplasm of lung 740196956 Acute non- ST segment elevation myocardial infarction 208478445 07/02/2014. Tobacco de pendence syndrome 54832426 [id number] Main Office [address] [address] [place] [address] 06/25/2015 08:42:38 06/25/2015 09:18:13 Lumbar radiculopathy 958611802 [id number] Ryder Lou MD Main Office [address] [address] [place] [address] 08/07/2015 15:28:41 08/07/2015 16:31:50 Adult health examination 907789198 Z00.00 Needs infl uenza immunization 841289730 Z23 Acute non- ST segment elevation myocardial infarction 057527732 I21.4 07/02/2014. Chronic ty pe B viral hepatitis 50403593 B18.1 Lumbar radiculopathy 128 279370 M54.16 Tobacco de pendence syndrome 40218473 F17.290 Uncontroll ed type 1 diabetes mellitus 762254315 E10.65 Abdominal aortic aneurysm 901029517 I71.4 History of carotid endarterectomy 838391500 Z98.89 [id number] Ryder Lou MD Main Office [address] [address] [place] [address] 02/08/2016 10:22:39 02/08/2016 11:16:43 Uncontrolled type 1 diabetes mellitus 592359856 E10.65 Tobacco de pendence syndrome 26752217 F17.290 Insomnia 114591872 G47.0 0 Chronic ty pe B viral hepatitis 98679378 B18.1 [id number] Ryder Lou MD Main Office [address] [address] [place] [address] 02/09/2016 14:00:38 02/09/2016 14:11:07 Administration of pneumococcal vaccine 20257891 Z23 [id number] Ryder Lou MD Main Office [address] [address] [place] [address] 10/14/2016 13:39:21 10/14/2016 14:54:25 Adult health examination 242598276 Z00.00 Needs infl uenza immunization 220416839 Z23 Uncontroll ed type 1 diabetes mellitus 011492308 E10.65 Tobacco de pendence syndrome 95575691 F17.290 Acute non- ST segment elevation myocardial infarction 026914359 I21.4 07/02/2014. Essential hypertension 56653002 I10 [id number] Ryder Lou MD Main Office [address] [address] [place] [address] 04/13/2017 09:04:50 04/13/2017 10:31:34 Uncontrolled type 1 diabetes mellitus 764778394 E10.65 Administra tion of pneumococcal vaccine 33159589 Z23 Administra tion of viral vaccine 95418365 Z23 Hypersomnia 39469116 G47 .10 Gastroesop hageal reflux disease 022746331 K21.9 Hip pain 79510964 M25.55 2 Chronic ty pe B viral hepatitis 13589560 B18.1 [place] by [place] [id number] James gray Main Office [address] [address] [place] [address] 06/20/2017 14:58:36 06/20/2017 16:57:31 Influenza vaccine needed 1467306815 106 Z23 [id number] Qing anderson Main Office [address] [address] [place] [address] 08/10/2017 15:10:23 08/10/2017 16:14:51 Diarrhea 17202787 R19.7 Cont hydration and rec probiotics as well as fiber / citrucel as a bulking agent. concern is for possible c.diff or food poisoning. tolerating nl diet / drinking plenty of water - very low suspicion for dehydratio n [id number] Ryder Lou MD Main Office [address] [address] [place] [address] 08/17/2017 09:10:32 08/17/2017 10:10:51 Hip pain 26691873 M25.552 Intermitte nt claudication due to atherosclerosis of [place] artery of limb 5155275591 107 I70.212 [id number] Ryder Lou MD Main Office [address] [address] [place] [address] 10/17/2017 08:22:56 10/17/2017 09:19:37 Adult health examination 290078674 Z00.00 Uncontroll ed type 1 diabetes mellitus 932300425 E10.65 Hyperlipidemia 48081459 E78.5 Insomnia 264797266 G47.0 0 Abdominal aortic aneurysm 672125363 I71.4 Stable size Glaucoma 97459347 H40.9 Followed by ophtho with stable pressures. Chronic ty pe B viral hepatitis 46485894 B18.1 Followed by ID Open-angle glaucoma 8449 4001 H40.10X0 Tobacco de pendence syndrome 28841448 F17.290 [id number] Ryder Lou MD Main Office [address] [place] [address] 02/10/2018 09:19:44 02/10/2018 10:03:37 Acute exacerbation of chronic obstructive pulmonary disease 030574533 J44.1 Chronic cough 03630753 R 05 Tobacco de pendence syndrome 97671058 F17.290 [id number] Ryder Lou MD Main Office [facility] [address] [place] [address] 04/16/2018 13:54:05 04/16/2018 15:22:13 Hepatitis C screening 081187238 Z11.59 Uncontroll ed type 1 diabetes mellitus 760332750 E10.65 Administra tion of viral vaccine 19174187 Z23 Hip pain 28318479 M25.55 2 Tobacco de pendence syndrome 53787208 F17.290 Pain of left calf 138043 4809 095360 M79.662 Chronic ty pe B viral hepatitis 29636532 B18.1 Followed by ID Abdominal aortic aneurysm 186617159 I71.4 Stable size [id number] Rusty Richard MD Main Office [address] [address] [place] [address] 06/28/2018 10:54:44 06/28/2018 12:07:49 Acute exacerbation of chronic obstructive pulmonary disease 490418599 J44.1 rev pfts and ldct rec doxy (and probiotic) , check cxr, rec eufemia prn, pred pulse as dir, and use proair as dir 25 minute office visit with greater than 50% of the visit face-to-fa ce with the patient and/or family providing counseling and/or coordinati on of care. Tobacco de pendence syndrome 09697045 F17.290 [id number] Rusty Richard MD Main Office [address] [place] [address] 07/05/2018 13:22:04 07/05/2018 14:24:15 Acute exacerbation of chronic obstructive pulmonary disease 981222992 J44.1 COPD exacerbati on 50-75% better acutely, ? wheezing due to baseline activity, treat with ICS. (Advair 250/50 or Symbicort) - see below 25 minute office visit with greater than 50% of the visit face-to-fa ce with the patient and/or family providing counseling and/or coordinati on of care. Will continue ProAir as needed and add on long acting beta agonist for control, brand dependent on insurance coverage. Uncontroll ed type 1 diabetes mellitus 485083469 E10.65 Patient has endocrinol ogist, Dr. Taran Enriquez who he sees q 3 months to manage Type 1 DM Influenza vaccine needed 5777420996 106 Z23 Chronic ob structive pulmonary disease 63562169 J44.9 [id number] Ryder Lou MD Main Office [address] [facility] [address] [place] [address] 10/19/2018 09:17:37 10/19/2018 10:15:31 Hepatitis C screening 758712490 Z11.59 Adult heal th examination 500914604 Z00.00 Uncontroll ed type 1 diabetes mellitus 972351626 E10.65 Hyperlipidemia 18195922 E78.5 Insomnia 333299255 G47.0 0 Abdominal aortic aneurysm 091793714 I71.4 Stable size Glaucoma 53169077 H40.9 Followed by ophtho with stable pressures. 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 090581278 E10.51 Carotid and LE arterial disease Carotid ar jeff stenosis 25079348 I65.29 S/P CEA in 2008 [id number] Ryder Lou MD Main Office [address] [facility] [address] [place] [address] 12/13/2018 11:14:43 12/13/2018 21:46:55 [id number] Rian Dawkins PA-C Main Office [address] [facility] [address] [place] [address] 12/17/2018 14:15:59 12/17/2018 15:32:23 Dyspnea 871159098 R06.00 not currently but pt requested refill Diarrhea 72644901 R19.7 Cont hydration and rec brat diet if diarrhea persists for a few more days - then submit stool sample Hypomagnesemia 804751647 E83.42 if low, rec otc mag supp like mag oxide - advised pt could make diarrhea worse - meanwhile - rec bananas or avocado - foods naturally high in mag - zaina banana will help c constipati ng effect too Leukocytosis 245665999 D 72.[address] at ER - will recheck [id number] Rian Dawkins PA-C Main Office [address] [address] 01/07/2019 10:43:59 01/07/2019 11:55:29 Diarrhea 33901382 R19.7 seen by gi, found to be + for giardia - sig better on flagyl, cont as dir - now down to one formed bm / day encouraged pt to cont probiotic yogurt wt has slowly begun to climb cr stable, cont to stay hydrated *will fwd a copy of this note to GI* Leukocytosis 780738048 D 72.829 recheck cbc c diff next week c cc: GI [id number] Ryder Lou MD Main Office [address] [address] 02/01/2019 09:36:03 02/01/2019 10:52:34 Uncontrolled type 1 diabetes mellitus 698537672 E10.65 Carotid ar jeff stenosis 12066486 I65.29 S/P CEA in 2008 Pure hypercholesterolemia 218974332 E78.00 [id number] Qing anderson Main Office [address] [address] 05/17/2019 14:54:14 05/17/2019 15:41:59 Abdominal pain 03003116 R10.9 initial presentati on concerning for cholecysti tis, abdomen is benign now but hx of episode of RUQ pain in past as well, will get labs, US to look at GB pt to eat low fat, small meals, to ER with any flare of RUQ pain or fevers Constipation 02808091 K5 9.00 after one episode of diarrhea, pt to use miralax to get moving due to no BM for 4 days and feels bloated [id number] Rian Dawkins PA-C Main Office [address] [facility] [address] [place] [address] 10/14/2019 11:37:49 10/14/2019 13:02:44 [id number] Rian Dawkins PA-C Main Office [address] [facility] [address] [place] [address] 10/15/2019 09:52:11 10/15/2019 11:07:45 History of cerebrovascular accident 748632529 Z86.73 last wk R CVA c L grabiel - LUE muscle strength has returned and paresthesi as are resolving - s/p recent admission, cont meds as dir for primary and secondary prevention , cont f/u c vascular - encouraged pt to call for sooner apptmt pt seen c [facility] 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 patches Carotid ar jeff stenosis 40392828 I65.29 cont f/u c vascular Coronary atherosclerosis 169416537 I25.10 s/p 3 stents - cont meds, f/u c card as dir Transition of care 92651 47824 105 Z75.8 Essential hypertension 91884699 I10 stable, cont meds as dir [id number] Lima Lewis MD Main Office [address] [facility] [address] [place] [address] 11/13/2019 14:59:57 11/13/2019 15:55:37 Essential hypertension 57167933 I10 Followed by cardiology who increased his meds. He will follow at home and call if systolic remains above 140. Cerebrovas cular accident 410187846 I63.9 He needs services to help improve and stabilize his post-strok e functionin g. Unintentio nal weight loss 692413770 R63.4 He has had a 9 lb weight loss since his stroke. He lives alone and has trouble with meal preparatio n. [id number] Ryder Lou MD Main Office [address] [facility] [address] [place] [address] 11/19/2019 11:13:55 11/21/2019 11:39:29 [id number] Ryder Lou MD Main Office [address] [facility] [address] [place] [address] 12/23/2019 08:12:05 12/23/2019 09:44:37 Adult health examination 803010868 Z00.00 Essential hypertension 75930249 I10 Stable on present medication s Uncontroll ed type 1 diabetes mellitus 754774463 E10.65 followed by endo Pure hypercholesterolemia 726344919 E78.00 Chronic ob structive pulmonary disease 31917766 J44.9 Stable on present meds Abdominal aortic aneurysm 584699706 I71.4 Stable size. followed by serial US Carotid ar jeff stenosis 82480183 I65.29 S/P CEA in 2008 Chronic ty pe B viral hepatitis 94935818 B18.1 Followed by ID Glaucoma 89108550 H40.9 Followed by ophtho with stable pressures. 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 COVID testing as pt. is high risk. If negative, needs stool testing. Replace electrolyt es as discussed. Test blood sugars 2-3 times daily. 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 was recom. to restart glucose testing. If blood sugares are 200-300 range, call endocrinol ogist to adjust meds. [id number] Ryder Lou MD [facility] [address] [facility] [address] [place] [address] 05/29/2020 13:07:47 05/29/2020 14:58:54 Essential hypertension 61637197 I10 Stable on present medication s Serum crea tinine above reference range 915975330 R79.89 [id number] Ryder Lou MD Main Office [address] [place] [address] 07/06/2020 11:10:58 07/06/2020 12:26:52 Uncontrolled type 1 diabetes mellitus 065777322 E10.65 followed by endo Essential hypertension 73169143 I10 Stable on present medication s Influenza vaccine needed 0901611916 106 Z23 Renal diso rder due to type 1 diabetes mellitus 124496526 E10.29 [id number] Liz Cedillo Main Office [address] [facility] [address] [place] [address] 02/09/2021 14:02:21 02/09/2021 15:13:29 Transition of care 7086457005 105 Z75.8 I just received the dc summary today, will review and adjust therapy accordingl y. Carotid ar jeff stenosis 72422096 I65.29 s/p repeat CEA has f/u with vascular surgeon. Per previous record patient had a stent which is not typical of an endarterec collin and then the area thrombosed resulting in new endarterec collin stent thrombosis could be due to a [id number] deficiency and thus Plavix would not be the drug of choice hence he was started on Brilinta however it is not clear and thus I have asked the rn case manager to follow-up with his vascular surgeon. In addition this could also be due to previous history of patient potentiall y not taking medication as prescribed ?. Hypercholesterolemia 136 79634 E78.00 Cw with current meds per order. Uncontroll ed type 1 diabetes mellitus 400985919 E10.65 He is type one and establishe d with endo thus I advised him to f/u with them.He is on Tresiba only. Vitamin D deficiency 347 22526 E55.9 Will cw with Vit D Generalize d anxiety disorder 17759547 F41.1 He was started on paroxetine , due to lower stroke risk however patient noted it was not working and wanted to go back on lexapro thus we switched back.parox etine is not recommende d for geriatric patient as well thus I agreed. Essential hypertension 75801898 I10 Patient was started on hydralazin e bp has been labile and fluctuates .Will not adjust till I can review his dc summary as to why this was switched.H e would be a better candidate for an GRETTA and tapered of hydralazin e since bp is labile.Adam l keep amlodipine 10 mg. [id number] Liz Cedillo Main Office [address] [place], [place] [address] 02/09/2021 07:49:40 02/09/2021 16:39:52 [id number] Juan Carlos Cabrera MD Main Office [address] [facility] [address] [place] [address] 02/15/2021 10:21:31 02/15/2021 11:08:19 Carotid artery stenosis 79183487 I65.29 s/p repeat CEA advised f/u with vascular regarding Brilinta vs plavix Essential hypertension 43796410 I10 Coreg increased to 12.5 BIDAmlodip ine switched to nifedipine he will do in 30's so we can better titrate till BP at [place]. 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 Acute inju ry of kidney 9517640409 0207224 N17.9 Is establishe d with nephrologi st - advised he can f/u (Dr. Wagner)BM P ordered and urine studies.Wi ll try to obtain blood result form rehab to compare. Renal diso rder due to type 1 diabetes mellitus 621582772 E10.21 Had an episode of hyperglyce arti at PT reading was 25.Will drop tresiba from 50 unit ti 45, advised dialy BG monitor and to reach out to endo as he is type 1 was on CGM, has endo apt coming up. [id number] Lima Lewis MD Telehealt h [address] [place] [address] 02/18/2021 12:42:20 02/18/2021 15:21:59 Essential hypertension 24326407 I10 Decrease his nifedipine from 90 to 60 mg daily. He will also cut out his bedtime hydralazin e. He will follow his BP and will call if the systolic goes above 150. The goal will be to decrease the hydralazin e and to increase the nifedipine over time. Near syncope 823105088 R 55 This may have been secondary to orthostati c hypotensio n given the changes in his systolic pressure. And micturitio n syncope may have also been playing a role. This could have been brought on by the increase of his nifedipine from 60 to 90 mg daily. For now he will go back to 60 mg. [id number] Juan Carlos Cabrera MD Main Office [address] [place] [address] 02/24/2021 09:33:14 02/24/2021 10:23:48 Serum creatinine above reference range 735270657 R79.89 Will get BMP if still high will add urine studiesHe as reached out to his nephrologi st for an apt.He is aware to hydrate and avoid nephrotoxi c medication s. Essential hypertension 29034999 I10 Will keep Coreg to 12.5 BIDBp stable with nifedipine 90 thus will keep for now.Advise d to keep BP log and lifestyle modificati onsCare Tanbark Laborer to follow up BP dailyPatie nt aware of Signs and symptoms of HTN emergencyz s Carotid ar jeff stenosis 99073554 I65.29 s/p repeat CEA advised f/u with vascular regarding Brilinta vs plavix He is taking plavix right now due to high cost of Brilinta awating vascular recs I tried to send Brilinta to his mail in pharmacy to see if it is cheaper as his co-pay is high. 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 374141408 E10.51 Carotid and LE arterial disease Chronic ob structive pulmonary disease 57321172 J44.9 Stable on present meds Hemiplegia and/or hemiparesis following stroke 9533607959 9107 I69.359 01/2021 .Right-hem ispheric CVA with left-sided hemiplegia (arm most affected) [id number] Juan Carlos Cabrera MD Main Office [address] [facility] [address] [place] [place] [address] 04/21/2021 09:10:35 04/21/2021 18:38:29 [id number] Ryder Lou MD Telehealt h [address] [place] [address] 04/23/2021 13:16:26 04/23/2021 14:22:11 Essential hypertension 06110385 I10 Stable on present medication s Chronic ty pe B viral hepatitis 49943540 B18.1 Followed by ID Nausea 760417426 R11.0 [id number] Liz Cedillo Main Office [address] [facility] [address] [facility] [address] 04/28/2021 10:26:31 04/28/2021 11:15:19 Transition of care 3612006099 105 Z75.8 Summary and labs reviewed, medication reconciled .He tells me his ID physician Dr. Marie Okeefe, changed his Hep B medication , will try to get name. Renal artery stenosis 30 1548324 I70.1 s/p stenting due to see nephrology 05/25/21, BP still elevated will generous with BP controll goal to be below 150's systolic thus will increase amlodipine to 5 mg. He was also advised he should follow with nephrology given recent stenting.H ad labs recently done at rehab will repeat in the next day or 2. 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 Patient aware of Signs and symptoms of HTN emergency Mixed anxi ety and depressive disorder 296789741 F41.8 Will increase lexapro to 20 mg and add psychology referral advised him to reach out to his previous therapist. Herpes zoster 6294900 B0 2.9 The rash maybe the start of shingles, will renally dose valtrex.Cr Cl 27 thus will dose to 1gm qD. [id number] Ryder Lou MD Telehealt h [address] [address] [place] [address] 05/07/2021 14:35:28 05/10/2021 09:12:26 Tinea corporis 93109763 B35.4 Contact dermatitis 72544 004 L25.9 [id number] Juan Carlos Cabrera MD Main Office [address] [address] [place] [address] 05/28/2021 10:53:13 05/28/2021 11:58:44 Essential hypertension 65520332 I10 BP well controlled will not make adjustment s. Mixed anxi ety and depressive disorder 233232864 F41.8 Improved with lexapro 20, will cw with current dose and have him get BMP to ensure electrolyt e not deranged. Pruritic rash 52737413 L 28.2 Improved advised emollient otc aveeno as he has xerosis. Nocturia 003796992 R35.1 As visit was ending he noted to me he as having nocturia.H e admitted he drinks fluid before bed thus I advised him to stop drinking 2 hrs before bedWill check PSA as well.If no improvemen t he as advised to schedule further apt for f/u [id number] Rian Dawkins PA-C Main Office [address] [address] [place] [address] 06/21/2021 14:48:45 06/21/2021 15:54:18 Acute otitis externa 30254243 H60.509 will rx c otic abx drops in future, consider vinegar based product to dry out wet ears p swimming/s howering / cottonball avoid qtips/fing ernails in ear re-eval in 1 wk, and re-check bp as well [id number] Liz Cedillo Main Office [address] [address] [place] [address] 07/01/2021 15:02:05 07/01/2021 15:44:49 Acute otitis externa 21546163 H60.502 better p otic abx drops, but pressure/f eeling of water in ear persists - see below Dysfunctio n of eustachian tube 89920217 H69.92 see above - trial c nasal saline spray, flonase, and prn warm washcloth to side of neck if no sig improvemen t, then consider ENT eval Essential hypertension 86845920 I10 borderline elevated - just seen by alexis earlier today - bp similar - he was advised by alexis to cont meds as dir d/t fear of causing orthostasi s which he has had in the past [id number] Liz Cedillo Main Office [address] [facility] [address] [facility] [place], [place] [address] 11/29/2021 10:00:22 11/29/2021 11:15:46 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 Hemiplegia and/or hemiparesis following stroke 2195638227 9107 I69.359 some residual weakness in Left upper extremity. Chronic ob structive pulmonary disease 13363999 J44.9 stable on inhaler,Barth s not had exacerbati on in > 1yr Chronic ki dney disease stage 3 928599852 N18.32 Follows nephrology .Has apt today Hypercholesterolemia 136 42563 E78.00 Cw with current meds per order.repe at lipids in january Fatigue 16955681 R53.83 Mixed anxi ety and depressive disorder 577134182 F41.8 Improved with lexapro 20, will cw with current dose and have him get BMP to ensure electrolyt e not deranged. Renal diso rder due to type 1 diabetes mellitus 841797195 E10.21 Most recent hba1c 8.8%HBA1C [id number] done/ labs orderedACE : Held due to renal function.A spirin EC 81 mg po qdailyFeet examined today.Opht halmology follows yearly, up to dateFollow s renalFollo ws Endocrinol ogyLipid profile orderedCou nselled about regular physical activityCo unselled on diet- Patient advised regarding risks/sign s/symptoms of hypoglycem ia. Counseled to carry a snack in case of emergencie s- Advised to check fingerstic k glucose at home- Dental visit advised. Pain of left hand 683929 6658 17639 M79.642 had injury from breaking fall, no head neck trauma. Wrist and elbow intact, denies pain, mild bruise. Able to wiggle fingers with some residual weakness from stroke, sensation intact, radial pulses intact.Con servative therapy discussed, wrapped with gretta bandage, ice adivsed and elevation. Hypertensi ve renal disease 35399255 I12.9 Low sodium diet discussedC ounseled on medication adherenceC ounseled on diet/exerc iseAdvised to keep BP daily BP log and technique counseled. Red flags of HTN emergency discussed and when to go to ED.To follow nephrology today, advised consider increase hydralizen vs retrial low dose GRETTAChandler to discuss with nephro. [id number] Juan Carlos Cabrera MD Main Office [address] [facility] [address] [place] [address] 01/17/2022 12:55:30 01/18/2022 10:17:24 COVID-19 103443610 U07.1 Advised tylenol q6hr PRNThroat Lozenges for sore throat, salt water gargle,Dottie quate hydration enforced, saline sprays, humidifier use enforced.m onoclonal antibody form faxed. Muscle weakness 31382948 M62.81 Noted unable to ambulate in AM, legs would give out.Signif icant hx of CVA, given this I advised Chandler to go to ED immediatly to r/o CVA. Anxiety state 712475694 F41.1 Advised limit use and only after going to ED to r/o for acute stroke.Ris k of sedation and respirator y depression discussed. 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 - seen by continuing education director last week, cont f/u c endo 9. seen by eye md recently - will attempt to get records Pure hypercholesterolemia 557691935 E78.00 cont statin, rec increase walking to raise hdl Pituitary microadenoma 358085876 D35.2 cont f/u c endo Hemiplegia and/or hemiparesis following stroke 0036192992 9107 I69.359 cont meds, cont f/u c neuro Anxiety 80066865 F41.9 stable, cont med as dir, no see counsellor Hypertensi ve renal disease 58361787 I12.9 stable, cont meds as dir Former hea vy tobacco smoker 0515340504 52547 Z87.891 cont ldct surveillan [id number] Juan Carlos Cabrera MD Main Office [address] [facility] [address] [place] [address] 08/12/2022 09:22:16 08/12/2022 09:56:29 Pruritic disorder 452148466 L29.9 Likely xerosis related to DM, advised emollient use will check labsAdvise d eucerin emollient and aveeno oat soaksDM controlled discussed. Avoid caffeineAv oid ETOHHumidi fied airAvoid hot showersAvo id spiceshypo allergenic wash advisedCon t follow up with dermZyrtec for itch, sedation risk advised with antihistam ine. [id number] Liz Cedillo Telehealt h [address] [facility] [address] [place] [address] 08/24/2022 08:47:46 08/24/2022 10:34:01 Cough 10049219 R05.9 cough/ illness sicne 08/12 in diabetic patient with COPD. Will tx for possible secondary bacterial infection. zpak as directed x 5 days, hydration, rest, tylenol as needed, may use dayquil/ nyquil as needed but no tylenol if he takes those. Call or return for worsening or concerns, Exposure t o viral disease 0922347923 42717 Z20.828 exposed to rsv, he has been sick since 08/12. no fever, no SOB. Chronic ki dney disease stage 3 098709696 N18.32 Chronic ob structive pulmonary disease 65739305 J44.9 Uncontroll ed type 1 diabetes mellitus 771998208 E10.65 Hypertensi ve renal disease 25364491 I12.9 338000 Grisel De La Cruz Main Office [address] [facility] [address] [place] [address] 09/13/2022 09:52:11 09/13/2022 11:00:07 Renal disorder due to type 1 diabetes mellitus 263900355 E10.21 Most recent hba1c 8%HBA1C [id number] doneACE: Held due to renal function.A spirin EC 81 mg po qdailyOpht halmology follows yearly, up to dateFollow s renalFollo ws Endocrinol ogyLipid profile orderedCou nselled about regular physical activityCo unselled on diet- Patient advised regarding risks/sign s/symptoms of hypoglycem ia. Counseled to carry a snack in case of emergencie s- Advised to check fingerstic k glucose at home- Dental visit advised. Uncontroll ed type 1 diabetes mellitus 279120597 E10.65 He is type one and establishe d with endo thus I advised him to f/u with them.He is on Tresiba only. Essential hypertension 42869308 I10 Will increase metoprolol 75mg bid. Pruritic disorder 693848 002 L29.9 Notes emollient has help Likely xerosis related to DMCw with:DM controll.A void caffeineAv oid ETOHHumidi fied airAvoid hot showersAvo id spiceshypo allergenic wash advisedCon t follow up with dermZyrtec for itch, sedation risk advised with antihistam ine. Chronic ki dney disease stage 3B 041423254 N18.32 Follows nephrology . [id number] Juan Carlos Cabrera MD Main Office [address] [facility] [address] [place] [address] 07/17/2023 12:32:03 07/17/2023 13:45:15 Adult health examination 237802171 Z00.00 Patient was counseled on healthy diet, exercise and nutrition due to Body mass index is 22.8 kg/m? ? ?. Last PSADate: 05/28/21Resu lt: 2.4Plan: Last Colonoscop y:Date: 04/13/17Res ult: wnlPlan: Per GI screen 10yrs Vaccines:T dAP: 04/16/18Zos ter rec: 06/26/19, 04/11/2020P CV13: 02/08/17PPS V23: 04/13/16PCV 20: 03/15/2023 Influenza: 07/17/23Cov id: 01/01/21, 01/22/21, 08/09/21, 08/02/22 bivalent Routine labs today Immunizati on status reviewed. Will screen based on risk factors. Regular dental and ophtho care advised as well as seat belt and sunscreen use. Distracted driving discussed. Medication reconciled . Advance directives discussed. 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 Chronic ki dney disease stage 3B 864381846 N18.32 Follows nephrology . Pituitary microadenoma 812068901 D35.2 Seeing endo. Nicotine dependence 5629 4008 Z87.891 LDCT Lung Cancer Screening Program Annual Order Advance di rective discussed with patient 465275591 Z71.89 healthcare proxy and molst provided [id number] Rian Dawkins PA-C Main Office [address] [facility] [address] [facility] [place] [address] 11/27/2023 13:56:45 11/27/2023 15:02:26 At increased risk for falls 311491922 Z91.81 Recurrent falls 69905566 2 R29.6 check labs, get fpi eval and neuro re-eval Vitamin D deficiency 347 99661 E55.9 Fatigue 43215117 R53.83 Weight loss 37488294 R63 .4 most likely d/t ozempic from endo - but stopped this med last month - cont f/u c endo, next in a few weeks meanwhile, rec glucerna & check prealbumin [id number] Rusty Richard MD Telehealt h [address], [place] [address] 12/01/2023 12:52:17 12/01/2023 14:33:40 COVID-19 957972426 U07.1 Based on duration of symptoms and comorbidit ies pt is a candidate for antiviral therapy. Common/ser ious potential side effects discussed. Advised to call if noted. Current isolation guidelines based on immunizati on status discussed as well as isolation if rebound infection occurs. Medication s reviewed and dosing adjusted (hold atorvastat in x 1 week and take Brillinta QD x 1 week) as indicated with Paxlovid. [id number] DE IBRAHIM Main Office [address] [place] [address] 12/19/2023 13:30:59 12/22/2023 12:57:51 [id number] Liz Cedillo Main Office [address] [place] [address] 12/25/2023 15:26:12 12/26/2023 08:38:44 Transition of care 5426030697 105 Z75.8 Uncontroll ed type 1 diabetes mellitus 359051715 E10.65 Blood sugars elevated on last BMP at 467. In office pts CGM gave a reading of 297. Pt follows with endocrinol matthew for his diabetes who make adjustment s to his meds and was advised to call him regarding his elevated blood sugars. Pt educated on the importance of having controlled blood sugars to prevent further complicati ons from disease. Check a1c c cc: endo Hypertensi ve renal disease 24066400 I12.9 stable, creatinine stable at 1.7, cont hydralazin e, metoprolol and amlodipine as directed. F/U with renal. Pt encouraged to continue monitor blood pressures at home Constipation 93936978 K5 9.00 Pt has had constipati on since in rehab and was given colace with some effect. Pt would like to try miralax. Pt will get miralax OTC, recommend 1/2-1 scoop qd - qod Pruritic disorder 124793 002 L29.9 Pt requested refill of cetirizine for his allergies and itching Recurrent falls 69742285 2 R29.6 Pt hospitaliz ed after recent fall. pending neuro eval Chronic ki dney disease stage 3 189656744 N18.32 creatinine stable at 1.7. Prealbumin low at 15.3. continue follow up with renal. Continue adequate hydration. pt dehydrated at the hospital, will recheck Weight loss 16935827 R63 .4 most likely d/t ozempic from endo - but stopped this med last month - cont f/u c endo, next in a few weeks meanwhile, rec glucerna & check prealbumin 3.24- pt started glucerna with meals (1 bottle over the course of the day), recommende d continuing to drink 1 bottle over the day however change to in between meals to prevent pt from becoming full on the glucerna. 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 Spasticity as sequela of stroke 1582721418 06415 R25.2 Type 1 diego betes mellitus 97423109 E10.9 Cont. follow with sparkle wilson le ?type 2 dm Chronic ki dney disease stage 3B 031277330 N18.32 Follows nephrology . [id number] Juan Carlos Cabrera MD Main Office [address] [place], [place] [address] 07/19/2024 11:09:23 07/19/2024 12:20:16 Adult health examination 438636915 Z00.00 Patient was counseled on healthy diet, exercise and nutrition due to Body mass index is 23.5 kg/m? ? ?. Last PSADate: 05/28/21Resu lt: 2.4Plan: past age for screening Last Colonoscop y:Date: 04/13/17Res ult: wnlPlan: Per GI screen 10 yrs Vaccines:T dAP: 04/16/18Zos ter rec: 06/26/19, 04/11/2020P CV13: 02/08/17PPS V23: 04/13/16PCV 20: 03/15/2023 Influenza: 07/19/24Cov id: encourage updated vaccineRSV : 09/12/23 LDCT:Date: 05/16/24Res ult: Lung Rad-2Plan: cont. yearly screen Routine labs today Immunizati on status reviewed. Will screen based on risk factors. Regular dental and ophtho care advised as well as seat belt and sunscreen use. Distracted driving discussed. Medication reconciled . Advance directives discussed. Essential hypertension 93378576 I10 Stable on present medication s Hemiplegia and/or hemiparesis following stroke 7386399462 9107 I69.359 01/2021 .Right-hem ispheric CVA with left-sided hemiplegia (arm most affected) Chronic ty pe B viral hepatitis 98843054 B18.1 Followed by ID Chronic ob structive pulmonary disease 80007487 J44.9 Stable on present meds Fatigue 21927816 R53.83 Z00.00 Hyperlipidemia 94750250 E78.5 Z00.00 Vitamin D deficiency 347 87891 E55.9 Will cw with Vit D Chronic ki dney disease stage 3B 430876506 N18.32 Follows nephrology . Pituitary microadenoma 700437105 D35.2 Seeing endo. Advance di rective discussed with patient 389569406 Z71.89 healthcare proxy and molst provided Influenza vaccine needed 1374938649 106 Z23 65 YEARS AND OLDER Hyperglyce arti due to type 2 diabetes mellitus 1652774977 47773 E11.65 Follows hernK2m and microalbum in and tx per endo. Insulin tr eated type 2 diabetes mellitus 305680986 Z79.4 Coronary arteriosclerosis 38047379 I25.[address] recommends DAPT for rest of life. [id number] Juan Carlos Cabrera MD Main Office [address] [facility] [place] [address] 12/06/2024 10:24:28 12/06/2024 11:10:28 Pituitary microadenoma 156304487 D35.2 Seeing endo. Chronic ty pe B viral hepatitis 11008981 B18.1 Followed by ID Hemiplegia and/or hemiparesis following stroke 1467500946 9107 I69.359 01/2021 .Right-hem ispheric CVA with left-sided hemiplegia (arm most affected) Chronic ob structive pulmonary disease 40624863 J44.9 Stable on present meds Chronic ki dney disease stage 3B 334352180 N18.32 Follows nephrology . Coronary arteriosclerosis 08246350 I25.[address] recommends DAPT for rest of life. Essential hypertension 58236798 I10 Stable on present medication s Hyperglyce arti due to type 2 diabetes mellitus 3056203462 49757 E11.65 Follows cenfK2e and microalbum in and tx per endo.Had c-peptide done suggesting he is type 2 dm and not [address]. Insulin tr eated type 2 diabetes mellitus 874089740 Z79.4 Major depr ession in remission 25718491 F32.5 Stable on lexapro. [id number] Juan Carlos Cabrera MD Main Office [address] [facility] [place] [address] 01/14/2025 10:56:08 01/14/2025 12:25:56 Hyperglycemia due to type 2 diabetes mellitus 3982503515 95533 E11.65 Follows seyhO9b and microalbum in and tx per endo.Had c-peptide done suggesting he is type 2 dm and not 1, has CeQur on place. Hypertensi ve renal disease 64249834 I12.9 Low sodium diet discussedC ounseled on medication adherenceC ounseled on diet/exerc iseAdvised to keep BP daily BP log and technique counseled. Red flags of HTN emergency discussed and when to go to ED.To follow nephrology January, advised consider increase hydralazin e vs retrial low dose GRETTA, [place] to discuss with nephro. Mixed anxi ety and depressive disorder [id number] F41.8 Improved with lexapro 20 Health Concerns Section Related Observation LastModified by Organization Detai ls LastModified Time None Recorded Concern Status LastModified by Organization Details LastModified Time None Recorded Advance Directives Directive N: Payers Encounter Date Sequence Insurance Name Policy Number Policy Garcia Covered Member ID Garcia Member ID Guarantor Name 12/25/[address] [facility] [employer] 33D Phan Gipson [id number] Phan Gipson 12/25/2023 1 [place] [employer] [place] Phan Gipson [id number] Phan Gipson 01/16/[address] [facility] [employer] Phan Gipson [id number] Phan Gipson 01/16/2024 1 [place] [employer] Phan Gipson [id number] Phan Gipson 07/19/[address] [facility] Phan Gipson [id number] Phan Gipson 07/19/2024 1 [place] [employer] Phan Gipson [id number] Phan Gipson 12/06/[address] [facility] Phan Gipson [id number] Phan Gipson 12/06/2024 1 [place] [employer] [place] Phan Gipson [id number] Phan Gipson 01/14/2025 2 [place] Phan Xiomy Gipson [id number] Phan Gipson 01/14/2025 1 [place] [employer] Phan Gipson [id number] Phan Gipson Notes Date Note Type Note Provider Name and Address Organization Details Recorded Time 4 text/html Pt is a 72 year old male presenting as a hospital follow up. Pt will have PT coming to the house twice a week. Pt denies any falls since his discharge. He is using his cane to ambulate. Pt states he is able to do things on his own now since being d/c from rehab. OT came to to his house today and did not think he needed to have OT services.Pt follows renal for his CKD and has appointment scheduled.Pt has CGM for his DM1- pt takes 32 long acting daily and adjust the short acting as needed at meals. Pt glucose in office is 294 on his monitor and he reports not taking insulin at lunch time.Pt has a good support system at home with his nephew and his .Pt was put on Ozempic by his shipping support and he stopped it because he was having GI issues and lost some weight. He has not followed up with the shipping support since stopping.Pt feels a little constipated and was given colace in rehab. Pt states he has a bowel movement every few days and does not feel like he is emptying his bowels. Pt states the colace did not work the greatest for him. Hospitalization Contact RecordFor follow up, patient reports hospital: [facility], admit date: (12/07/2023), date of discharge: (12/19/2023), and date of contact: (12/20/2023).Medicare covered inpatient stay? yesMedicare [place] with in 48 working hours? yesHigh Complexity code valid on or before:DecemberModerate Complexity code valid on or before:DecemberHCP on file? noMOLST on file? noDischarge Summary available? yes Initially presented [facility] [place] November following a fall, was d/c home. At home tested positive for covid. Since then had continued weakness and more falls before presenting again on 12/07/2023. Pt was retested for covid and was negative, UA was also negative. Labs were unremarkable for any acute findings other than significantly elevated random blood glucose. Pt was evaluated by PT and short term rehab was recommended. Pt transferred to [facility] rehab. Pt there for PT and OT due to physical deconditioning with impaired functional mobility and ADL's. Continuing PT and OT for gait stability, balance concerns and strengthening.CKD STAGE III with hypertensive/diabetic hx renal artery stenosis -last BUN/creat on document from hospital 04/11.62. Creat 1.75 > 1.48 on 12/12/23, trending down > 1.39 on 12/18/23-continue to monitor renal function-avoid nephrotoxic drugs-involve renal as neededTYPE 1 DM WITH UNCONTROLLED HYPERGLYCEMIA-pt takes insulin degludec 45 ux nightly, lispro 10 ux with meals at home-ozempic on med list, however d/c secondary to 20 pound weight loss and persistent diarrhea-discontinue insulin glargine, degldec is in, started 32 ux daily-continue diabetic diet-adjust regimens as neededHTN WITH RENAL ARTERY STENOSIS with STENTING-asymptomatic, BP stable- continue hydralazine 50 mg nightly, toprol XL 100 mg BID, mg daily- monitor BP twice daily-adjust as needed-follow up with nephrologyINSOMNIA- pt reports using melatonin and benadryl at home, restarted this and monitor, pt reports improvement.HX CVA WITH LEFT SIDED DEFICITS- secondary preventative strategies with ASA 81 mg daily, Brilinta 60 mg twice daily and atorvastatin 80 mg nightly- left hand contracture, continue to monitor, physiatry followingDEPRESSION- escitalopram 20 mg daily, involve counselor as needed, continue to monitorHEPATITIS B- continue Entecavir 0.5 mg daily, f/u with specialist, continue to monitorMEDS AHSANILED Liz driver [place] - [facility] 12/26/2023 11:29:11 4 text/html COPDReported bypatient.Severity:not limiting Associated Symptoms:no dyspnea; no cough; no fever; no wheezing; no depressionNotes:Breathin g is good not smoking anymore.Stable with inhalers.Diabetes F/UReported bypatient.Context:seeing eye doctor regularly; checking feet regularly Associated Symptoms:no dizziness; no sweats; no headaches; no confusion; no increased thirst; no increased appetite; no increased urination; no blurred visionNotes:Following endo, since upping tresiba he notes he has not needed short acting.Hypertension F/UReported bypatient.Associated Symptoms:no dizziness; no lightheadedness; no shortness of breath; no palpitations; no edema; no calf pain with exertion Lifestyle:high salt intake Medications:taking medications as directed; no side effects from medicationNotes:BP stable with current regimen, following bulk coolers installer. Juan Carlos Cabrera MD [address], [address], [facility] 01/16/2024 14:55:43 4 text/html Medicare Annual Wellness VisitReported bypatient.Diet and Nutrition:Followed for DM2 and encouraged low carb diet Fracture Risk:no history of fractures; no recent explained fracture Physical Activity:discussed weightbearing activities; discussed exercise habits Depression Risk:Stable mood symptoms despite recent CVA Concentration and Memory:no memory lapses or loss Speech/Motor difficulties:no speech difficulties; no difficulty expressing formulated concepts Hearing:no loss of hearing Vision:worse with distance(wears glasses) Activities of Daily Living:able to contol urination and bowels; able to dress with limited or no assistance; able to feed self with limited or no assistance; able to get out of chair or bed with limited or no assistance; able to toilet with limited or no assistance;unable to bathe without assistance(assist x 1, has grab bars);unable to groom without assistance Instrumental Activities of Daily Living:able to manage medications with limited or no assistance; able to manage money with limited or no assistance; able to use the phone with limited or no assistance;unable to do house work without assistance;unable to grocery shop without assistance;unable to to prepare meals without assistance Falls Risk Assessment:no fall in the past year Home Safety:reviewed sun protection; working smoke/CO detectors; has hand bars in the bathroom/shower; good lighting in the home Here for PE visit. Reviewed chronic medications and medical problems. Discussed screening guidelines as well as goals for fitness and weight management. Juan Carlos Cabrera MD [address], [address], [facility] 07/19/2024 12:17:52 5 text/html Follow up for chronic health. Juan Carlos Cabrera MD [address], [address], [facility] 12/06/2024 12:29:39 5 text/html Coronary Artery Disease F/UReported bypatient.Severity:sympt oms are improving Associated Symptoms:no chest pain; no neck pain; no left arm pain; no dyspnea with exertion; no sweating; no nausea; no stressDiabetes F/UReported bypatient.Context:normal range of home blood sugars (in the [...] no edema; no calf pain with exertion Lifestyle:limiting/avoid ing salt Medications:taking medications as directed; no side effects from medication Juan Carlos Cabrera MD [address], [address], [facility] 12/06/2024 12:29:39 5 text/html Coronary Artery Disease F/UReported bypatient.Severity:sympt oms are improving Associated Symptoms:no chest pain; no neck pain; no left arm pain; no dyspnea with exertion; no sweating; no nausea; no stressHypertension F/UReported bypatient.Associated Symptoms:no dizziness; no lightheadedness; no chest pain; no shortness of breath; no palpitations; no edema; no calf pain with exertion Lifestyle:limiting/avoid ing salt Medications:taking medications as directed; no side effects from medication Follow up for chronic health. Juan Carlos Cabrera MD [address] [place], [address], [facility] 01/14/2025 12:24:30
--- OUTSIDE RECORDS SUMMARY | 2025-01-24 13:08 | XMS_ITS ---
Author Organization [facility] Address [address] [place] [address] Care Team Providers Care Dispenser Operator Name Role Phone Afia Cabrera Primary Care Provider Mikey Figueredo [phone] REASON FOR VISIT diarrhea Problems Problem Type SNOMED Code ICD Code Onset Dates Problem Status W/U Status Risk Notes Problem Diarrhea (62724321) Diarrhea (R19.7) Active confirmed Encounters Encounter Location Date Provider Diagnosis [facility] [address] [place] [phone] 06/04/2024 Mikey Montenegro Diarrhea R19.7 Assessments Encounter [...] Notes * AYSHA SHAFFERDOB:[birth year] (73 yo M)Acc No.[id number]:06/04/2024 Patient:?AYSHA SHAFFER :1950???Age:73 Y???Sex:Male Address:[address] [place] [address] Subjective: * Chief Complaints: * ???Diarrhea * Medical History:? * Surgical History:? * Hospitalization/Major Diagno stic Procedure:? * Medications:? Objective: Assessment: * Assessment: 1.?Diarrhea - R19.7 (Primary )? Plan: * Treatment: * Procedure Codes:? * true * Date:? Generated for Luisana shelley/Gutierrez/Gabyitting on:?01/24/2025 01:07 PM EDT
== END 2025-01-24 11:52 | disposition home or self-care (01) ==
LOC: HO.ENCR 11:14
PROVIDERS: PCP Family Medicine; Visit Provider Nurse Practitioner Adult Health
DX: E11.65 Type 2 diabetes mellitus with hyperglycemia (principal)
CPT/HCPCS: 99214; G2211

== ENCOUNTER → 2025-01-24 11:13 | Outpatient (BNVA) | payer MEDICARE, BC, SELFPAY | PROVIDERS: PCP Family Medicine; Visit Provider Nurse Practitioner Adult Health | DX: E11.65 Type 2 diabetes mellitus with hyperglycemia (principal); Z79.4 Long term (current) use of insulin | CPT/HCPCS: 82947; 99212 ==

== ENCOUNTER 2025-02-05 08:43 | Outpatient (REF) | payer MEDICARE, BC, SELFPAY ==
--- NOTE | ~2025-02-05 | US_ITS ---
EXAMINATION: US ABDOMEN HISTORY: viral Hep. B TECHNIQUE: Real-time grayscale ultrasound imaging of the abdomen was performed and images were reviewed. COMPARISON: Comparison is made with the prior examination dated 06/20/2023. FINDINGS: Liver: The right lobe of the liver measures 14.3 cm in size. The left lobe of the liver measures 9.1 cm in size. The liver demonstrates increased echotexture, consistent with steatosis. No focal mass or intrahepatic biliary ductal dilatation is identified. There is normal hepatopedal flow in the portal vein. Gallbladder and biliary tree: There are numerous shadowing calculi in the gallbladder. There is no wall thickening or pericholecystic fluid. There is no sonographic Hernandez sign. The common bile duct is normal in caliber measuring 2 mm. Kidneys: The right kidney measures 6.1 cm in length. The left kidney measures 11.0 cm in length. The kidneys are unremarkable, without evidence of masses, hydronephrosis, or calculi. Pancreas: The pancreatic head and neck are unremarkable. The remainder of the pancreas is obscured by bowel gas. Spleen: The spleen is normal in size and contour, measuring 7.4 cm in length. Abdominal aorta and inferior vena cava: Again seen is aneurysmal dilatation of the distal abdominal aorta measuring 3.6 cm in maximum AP dimension and 4.0 cm in maximum transverse dimension. There is no free fluid in the abdomen. US/US abdomen complete IMPRESSION: 1. Hepatic steatosis. 2. Cholelithiasis. 3. 4.0 cm distal abdominal aortic aneurysm. Electronically signed by: Mikey Wray MD 02/05/2025 10:33 AM EDT
--- OUTSIDE RECORDS SUMMARY | 2025-02-05 09:08 | XMS_ITS | Patient Health Record ---
Author Organization [facility] Address [address] [place] [address] Care Team Providers Care Pole Peeler Name Role Phone Afia Cabrera Primary Care Provider Mikey Figueredo [phone] Allergies No Known Allergies Results Component Value Reference Range Notes Leukocytes Stool Qualitative Reviewed date:10/03/2024 04:38:18 PM Interpretation: Performing Lab:[address] [address] Notes/Report: Leukocytes Stool Qualitative NEGATIVE NEGATIVE Giardia Ag Stool EIA Reviewed date:10/09/2024 01:43:34 PM Interpretation: Performing Lab:[address] [address] Notes/Report: Giardia Ag Stool EIA SEE NOTE GIARDIA AG, EIA, STOOL Micro Number: [id number] Test Status: Final Specimen Source: Stool Specimen Quality: Adequate Giardia Result 1: Not Detected Reference Range: Not Detected NOTE: Due to intermittent shedding, one negative sample does not necessarily rule out the presence of a parasitic infection. THIS TEST WAS PERFORMED AT: [facility] [address] [place] [address] ALESSANDRO PATRICK MD Calprotectin, Fecal Reviewed date:10/11/2024 04:04:55 PM Interpretation: Performing Lab:[address] [address] Notes/Report: Calprotectin, Fecal 132 Reference Range: <50 [...] borderline values. THIS TEST WAS PERFORMED AT: [facility] [address] [place] [address] PEDRO TINOCO MD,PHD,DARYL Ova and Parasite Reviewed date:10/09/2024 01:43:13 PM Interpretation: Performing Lab:[address] [address] Notes/Report: Ova and Parasite SEE NOTE OVA AND PARASITES, CONC AND PERM SMEAR Micro Number: [id number] Test Status: Final Specimen Source: Stool Specimen [...] infection. For additional information, please refer to https://education.School Places.Actively Learn/faq/DXS870 (This link is being provided for informational/ educational purposes only.) THIS TEST WAS PERFORMED AT: [facility] [address] [address] FARHAD HOGAN MD CDiff Gene PCR Reviewed date:10/03/2024 11:05:32 PM Interpretation: Performing Lab:[address] [address] Notes/Report: CDiff Gene PCR NEGATIVE Negative If C. difficile strongly suspected despite one negative test, a second test may be sent vs. empiric treatment for C. difficile infection. GI PANEL Reviewed date:10/04/2024 01:24:21 PM Interpretation: Performing Lab:[address] [address] Notes/Report: Campylobacter Not Detected Not Detect. Plesiomonas [...] is performed by Multiplexed PCR, utilizing the Med[employer] Array. Reason For Referral No Information Medications [...] Problem Status W/U Status Risk Notes Problem [id number] Encounter for screening for malignant neoplasm of colon (Z12.11) Active confirmed Problem Diarrhea (43646901) Diarrhea (R19.7) Active confirmed Problem 00718071 Weight loss (R63.4) Active confirmed Problem Screening for malignant neoplasm of rectum (364291756) Encounter for screening for malignant neoplasm of rectum (Z12.12) Active confirmed Problem 51488255 Preprocedural examination (Z01.818) Active confirmed Problem Irregular bowel habits (997116413) Irregular bowel habits (R19.8) Active confirmed Problem 13607158 Diarrhea, unspecified type (R19.7) Active confirmed Problem 29894546 Giardia (A07.1) Active confirmed Vital Signs Blood pressure diastolic 00 mm Hg 10/04/2024 Height 68 in 10/04/2024 Blood pressure systolic 00 mm Hg 10/04/2024 Weight 154 lbs 10/04/2024 BMI 23.41 kg/m2 10/04/2024 Encounters Encounter Location Date Provider Diagnosis [facility] [address] [place] [address] 10/04/2024 Mikey Montenegro Diarrhea, unspecifie d type R19.7 and Irregular bowel habits R19.8 [facility] [address] [place] [phone] 06/04/2024 Mikey Montenegro Diarrhea R19.7 Assessments Encounter [...] OF [place] [address] [place] [address] [id number] AYSHA SHAFFER Self - patient is the insured [facility] [address] [place], [place] [id number] EDMUND AYSHA Self - patient is the [...]
--- OUTSIDE RECORDS SUMMARY | 2025-02-05 09:09 | XMS_ITS | Encounter Summary ---
Author Organization [facility] Address [address] [facility] [[email or web address]] [address] [place] [address] Phone Care Team Providers Care Gear Design Engineer Name Role Phone Afia Cabrera MD Primary Care Provider Encounter Details Date Type Department Care Team (Late Contact Info) Description 02/25/2022 Documentation Only [facility] [address] [facility] [[email or web address] [address] [place] [address] Chandrakant Lei MD [address] [facility] [address] [place] [address] Social History Tobacco Use Types [...] Visit [facility] [address] [place] [address] Chandrakant Lei MD [address] [facility] [address] [place] [address] documented as of this encounter Visit Diagnoses Not on filedocumented in this encounter Care Teams Gear Design Engineer Relationship Specialty Start Date End Date Afia Cabrera MD [address] [facility] [address] [place] [address] PCP - General Family Medicine 04/28/21 documented as of this encounter
--- OUTSIDE RECORDS SUMMARY | 2025-02-05 09:09 | XMS_ITS | Encounter Summary ---
Author Organization [facility] Address [address] [facility] [address] [place] [address] Phone Care Team Providers Care Coremaking Machine Setter Name Role Phone Afia Cabrera MD Primary Care Provider [phone] Encounter Details Date Type Department Care Team (Late Contact Info) Description 12/20/2021 Documentation Only [facility] [address] [facility] [place] [address] Chandrakant Lei MD [address] [address] Social History Tobacco Use Types [...] Visit [facility] [address] [place] [address] Chandrakant Lei MD [address] [address] documented as of this encounter Visit Diagnoses Not on filedocumented in this encounter Care Teams Coremaking Machine Setter Relationship Specialty Start Date End Date Afia Cabrera MD [address] [address] PCP - General Family Medicine 04/28/21 documented as of this encounter
--- OUTSIDE RECORDS SUMMARY | 2025-02-05 09:09 | XMS_ITS ---
Author Organization [facility] Address [address] [place] [address] Care Team Providers Care Information Systems Consultant Name Role Phone Afia Cabrera Primary Care Provider Mikey Figueredo Unavailable [phone] Allergies No Known Allergies REASON FOR VISIT [...] Status Risk Notes Problem Irregular bowel habits (499069109) Irregular bowel habits (R19.8) Active confirmed Vital Signs Blood pressure systolic 00 mm Hg 10/04/20 24 Blood pressure diastolic 00 mm Hg 024 Height 68 in 10/04/2024 Weight 154 lbs 10/04/2024 BMI 23.41 kg/m2 10/04/2024 Encounters Encounter Location Date Provider Diagnosis [facility] [address] [place] [address] 10/04/2024 Mikey Montenegro Diarrhea, unspecifie d type [...] * AYSHA SHAFFER JDOB:[birth year] (73 yo M)Acc No.[id number]:10/04/2024 Progress Notes Patient:?AYSHA SHAFFER Provider:?Mikey Montenegro MD :1950???Age:73 Y???Sex:Male Juanito e:10/04/2024 Address:[address] [place], [place] [phone] Pcp:Aifa Cabrera Subjective: * Chief Complaints: * ???Patient [...] Procedure Codes:?3017F COLOR ECTAL CA SCREEN DOC WTK8970K TOBACCO NON-[id number] BP SCR NOT PRFRM REC REASON NOS * Preventive Medicine:? ??Screenings:?Fall Risk Screening?Fall Risk Assessment:?No falls in the past year,?Screening:?No falls in the past year,?Assessment:?Not performed, no reason specified,?Plan of Care:?Not documented, no reason specified.? * Follow Up:?prn * * Sign off status: Completed true * Provider:?Mikey Montenegro MD Date:? 024 Generated for Luisana shelley/Gutierrez/eTransmitting on:?02/05/2025 09:08 AM EDT History and Physical Notes * HPI [...]
--- OUTSIDE RECORDS SUMMARY | 2025-02-05 09:09 | XMS_ITS ---
Author Organization [facility] Address [address] [place] [address] Care Team Providers Care Transmission Repairer Name Role Phone Afia Cabrera Primary Care Provider Mikey Figueredo [phone] REASON FOR VISIT diarrhea Problems Problem Type SNOMED Code ICD Code Onset Dates Problem Status W/U Status Risk Notes Problem Diarrhea (26858825) Diarrhea (R19.7) Active confirmed Encounters Encounter Location Date Provider Diagnosis [facility] [address] [place] [address] 06/04/2024 Mikey Montenegro Diarrhea R19.7 Assessments Encounter [...] Notes * AYSHA SHAFFERDOB:[birth year] (73 yo M)Acc No.[id number]:06/04/2024 Patient:?AYSHA SHAFFER :1950???Age:73 Y???Sex:Male Address:[address] [place] [address] Subjective: * Chief Complaints: * ???Diarrhea * Medical History:? * Surgical History:? * Hospitalization/Major Diagno stic Procedure:? * Medications:? Objective: Assessment: * Assessment: 1.?Diarrhea - R19.7 (Primary )? Plan: * Treatment: * Procedure Codes:? * true * Date:? Generated for Luisana shelley/Gutierrez/Gabyitting on:?02/05/2025 09:09 AM EDT
--- OUTSIDE RECORDS SUMMARY | 2025-02-05 09:09 | XMS_ITS | Clinical Summary ---
Author Organization [facility] Address [address] [place] [address] Phone Care Team Providers Care Public Relations Director Name Role Phone Ryder oLu MD Primary Care Provider [phone] Allergies No known active allergies Active Problems Problem Noted Date Diagnosed Date Spasticity as late effect of cerebrovascular acc ident (CVA) 06/01/2021 Acquired melanocytic nevus of retina 05/07/2019 Overview (10/06/2024): OS Cataract 05/07/2019 Chronic hepatitis B ([facility] V24, [facility] V28) 0 05/07/2019 Overview (10/06/2024): Truvada Claudication ([facility] V24) 05/07/2019 Condyloma acuminata 05/07/2019 Genital herpes 05/07/2019 Glaucoma 05/07/2019 Hyperlipidemia 05/07/2019 Hypertension 05/07/2019 Insomnia 05/07/2019 Lumbar radiculopathy 05/07/2019 Myelinated nerve fibers of optic disc, right Coronary artery disease 05/07/2019 Overview (10/06/2024): Old NSTEMI, stents x 3 Retinal artery plaque 05/07/2019 Pituitary mass ([facility] V24) 05/07/2019 Type 1 diabetes mellitus ([facility] V24, [facility] V 28) 05/07/2019 Abdominal aortic aneurysm (A AA) without rupture ([facility] V24) 01/09/2019 Carotid stenosis, bilateral 01/09/2019 PAD (peripheral artery disease) ([facility] V24) Encounters Date Type Department Care Team Description 01/27/2025 12:37 PM EDT - 01/27/2025 11:59 PM EDT Hospital Encounter [facility] Ultrasound [address] [place] [address] Bilateral lower extremity pain; Other specified symptoms and signs involving the circulatory and respiratory systems Discharge Disposition: Home or Self Care from Last 3 Months Immunizations Name Administration Dates Next Due Pneumococcal conjugate 13 va lent (Prevnar 13, PCV13) 2mo and older 02/09/2016 Pneumococcal, Unspecified 04/13/2017 Tdap Tetanus diptheria acell ular pertussis (Boostrix; Adacel) 7yo and older 04/16/2018,04/13/2017 Zoster Live 04/20/2016 Surgical History Surgery Date Site/Laterality Comments CAROTID ENDARTERECTOMY 07/2009 Right PROCEDURE: HISTORICAL CAROTID ENDART APPENDECTOMY PROCEDURE: HISTORICAL APPENDECTOMY OTHER SURGICAL HISTORY 1997 PROCEDURE: OH COLECTOMY PARTIAL W/ANASTOMOSIS; COMMENT: sigmoid resection for diverticulitis OTHER SURGICAL HISTORY 07/07/2015 PROCEDURE: HISTORICAL CA BASAL CELL; COMMENT: removed from nose CARDIAC CATHETERIZATION 06/2014 PROCEDURE: HISTORICAL CARDIAC CATH; COMMENT: stents to RCA Medical History Medical History Date Comments Abdominal aortic aneurysm (A AA) without rupture (CMS/HCC V24) 01/09/2019 DX:Abdominal aortic aneu rysm (AAA) without rupture (HCC) Acquired melanocytic nevus of retina 05/07/2019 DX:Acquired melanocytic nevus of retina; COMMENT: OS Carotid stenosis, bilateral 01/09/2019 DX:C arotid stenosis, bilateral Cataract 05/07/2019 DX:Cataract Chronic hepatitis B (CMS/HCC V24, CMS/HCC V28) 05/07/2019 DX:Chronic hepatitis B (HCC) ; COMMENT: Truvada Claudication (CMS/HCC V24) 05/07/2019 DX:Cl audication (HCC) Condyloma acuminata 05/07/2019 DX:Condyloma acuminata Coronary [...] disc, right PAD (peripheral artery disea se) ([facility] V24) 01/09/2019 DX:PAD (peripheral artery di sease) ([facility]) Pituitary mass ([facility] V24) 05/07/2019 DX: Pituitary mass (HCC) Retinal artery plaque 05/07/2019 DX:Retinal artery plaque Type 1 diabetes mellitus wit h cataract ([facility] V24, [facility] V28) 05/07/2019 DX:Type 1 diabetes mellitus with cataract ([facility]) Type 1 diabetes mellitus wit h peripheral vascular disease ([facility] V24, [facility] V28) 05/07/2019 DX:Type 1 diabetes mellitus with peripheral vascular disease (HCC) Family History Medical History Relation Name Comments Alcohol abuse Father throat cancer, [place], AAA Heart attack Maternal Grandfather Other: hyperlipidemia [...] Care Team (Late st Contact Info) Description 03/20/2025 2:30 PM EDT Office Visit Vascular Surgery - [place] [address] [place] [address] Jami Mujica MD [address] [place] [address] Health Maintenance Due Date Last Done Comments Diabetes: Annual GFR (Glomerular Filtration Rate) 1951 Diabetes: Annual Foot Exam 12/30/1961 Diabetes: Annual Retina Eye Exam 12/30/1961 Hepatitis A Vaccines (1 of 2 - Risk 2-dose series) 12/30/1970 Hepatitis B Vaccines (1 of 3 - Risk 3-dose series) 2011 Cholesterol Screening (Lipid Panel) 10/01/2022 Colorectal Cancer Screening: Colonoscopy 10/01/2022 Depression Screening 10/01/2022 Falls Risk Assessment 10/01/2022 Hepatitis C Screening 10/01/2022 Lung Cancer Screening (Low Dose CT) 10/01/2022 Medicare Annual Wellness Visit 10/01/2022 Social Influencers of Health Screening 10/01/2022 Diabetes: Annual Urine Albumin-Creatinine Ratio (uACR) 10/06/2022 Diabetes: Blood Sugar Control Test (HGBA1C) 10/06/2022 Hypertension/CHF/CAD Annual BMP Blood Test 10/06/2022 DTaP,Tdap,and Td Vaccines (3 - Td or Tdap) 04/16/2028 04/16/2018, 04/13/2017 Zoster Vaccines Completed 04/11/2020, 09/0 01/2019, 04/20/2016 Pneumococcal Vaccine: 50+ Years Completed 03/15/2023, 04/13/2017, 04/13/2017, Additional history exists Influenza Vaccine Completed 07/19/2024, , 07/04/2022, Additional history exists COVID-19 Vaccine Completed 08/01/2024, , 08/02/2022, Additional history exists RSV Immunization Adult Patients Completed 08/01/2024, 09/12/2023 HIB Vaccines Aged Out No longer eligi [...] age to complete this topic Meningococcal B Vaccine Aged Out No l onger eligible based on patient's age to complete this topic RSV Immunization Patients Under 20 months Aged Out No longer eligible based on patient's age to complete this topic Varicella Vaccines Aged Out No longer eligible based on patient's age to complete this topic Procedures Procedure Name Priority Date/Time Associated Diagnosis Comments VAS US DUPLEX LOWER EXT ARTERIES BILAT WITH RANDI Routine 01/27/2025 1:48 PM EDT Bilateral lower extremity pain Other specified symptoms and signs involving the circulatory and respiratory systems from Last 3 Months Results * Vascular US duplex lower extremity arteries bilateral with RANDI (01/27/2025 1:48 PM EDT) Anatomical Region Laterality Modality Vascular, Abdomen Ultrasound 01/28/2025 11:1 1 AM EDT Impressions 01/28/2025 11:24 AM EDT Abnormal left-sided RANDI. Right leg: Mild to moderate proximal SFA stenosis. Left leg: Significant stenoses suspected along the proximal to mid left SFA. -------- FINAL REPORT -------- Dictated By: Abdirizak Cooney Dictated Date: 01/28/2025 11:11 ET Assigned Physician: Abdirizak Cooney Reviewed and Electronically Signed By: Abdirizak Cooney Signed Date: 01/28/2025 11:24 ET Workstation ID: [id number] Transcribed By: Self Edit Transcribed Date: 01/28/2025 11:11 ET Narrative 01/28/2025 11:24 AM EDT INDICATION: Bilateral lower extremity pain TECHNIQUE: Bilateral ankle to brachial indices obtained. Arterial duplex imaging obtained of both lower extremities. Prior relevant imaging studies: January 04, 2024 and June 12, 2023 Right posterior tibial index 1.08 Right dorsalis pedis index 1.13 Right digital index 1.34 Left posterior tibial index 0.81 Left dorsalis pedis index 0.75 Left digital index toes 0.68 Abnormal right posterior tibial as well as left posterior tibial and dorsalis pedis waveforms. Abnormal left digital pulse volume recording. Right leg: Common femoral artery: 144 cm/s with normal waveform. Superficial femoral artery: Elevated velocity in the proximal SFA up to 216 cm/s along visualized moderate stenosis. 110 cm second along the mid SFA with biphasic waveform. Popliteal artery: Normal velocities and biphasic waveform. Posterior tibial artery: Normal velocities and biphasic waveform. Anterior tibial artery: Normal velocities and biphasic waveform. Left leg: Common femoral artery: 149 cm/s with normal waveform. Superficial femoral artery: Decrease in increased velocities throughout the proximal to mid left SFA with velocity up to 414 cm/s with abnormal waveform suggesting significant stenosis. Velocity in the distal SFA measures 65 cm/s with abnormal waveform. Popliteal artery: Abnormal waveforms with velocity measuring 38 cm/s distally. Posterior tibial artery: Velocity up to 39 cm/s distally with biphasic waveform. Anterior tibial artery: Velocity measures 19 cm/s distally with abnormal biphasic waveform. Procedure Note Abdirizak Cooney MD - 01/28/2025 INDICATION: Bilateral lower extremity pain TECHNIQUE: Bilateral ankle to brachial indices obtained. Arterial dupleximaging obtained of both lower extremities. Prior relevant imaging studies: January 04, 2024 and June 12, 2023 Right posterior tibial index 1.08 Right dorsalis pedis index 1.13 Right digital index 1.34 Left posterior tibial index 0.81 Left dorsalis pedis index 0.75 Left digital index toes 0.68 Abnormal right posterior tibial as well as left posterior tibial anddorsalis pedis waveforms. Abnormal left digital pulse volume recording. Right leg: Common femoral artery: 144 cm/s with normal waveform. Superficial femoral artery: Elevated velocity in the proximal SFA up to216 cm/s along visualized moderate stenosis. 110 cm second along the midSFA with biphasic waveform. Popliteal artery: Normal velocities and biphasic waveform. Posterior tibial artery: Normal velocities and biphasic waveform. Anterior tibial artery: Normal velocities and biphasic waveform. Left leg: Common femoral artery: 149 cm/s with normal waveform. Superficial femoral artery: Decrease in increased velocities throughoutthe proximal to mid left SFA with velocity up to 414 cm/s with abnormalwaveform suggesting significant stenosis. Velocity in the distal SFAmeasures 65 cm/s with abnormal waveform. Popliteal artery: Abnormal waveforms with velocity measuring 38 cm/sdistally. Posterior tibial artery: Velocity up to 39 cm/s distally with biphasicwaveform. Anterior tibial artery: Velocity measures 19 cm/s distally with abnormalbiphasic waveform. IMPRESSION: Abnormal left-sided RANDI. Right leg: Mild to moderate proximal SFA stenosis. Left leg: Significant stenoses suspected along the proximal to mid leftSFA. -------- FINAL REPORT -------- Dictated By: Abdirizak Cooney Dictated Date: 01/28/2025 11:11 ET Assigned Physician: Abdirizak Cooney Reviewed and Electronically Signed By: Abdirizak Cooney Signed Date: 01/28/2025 11:24 ET Workstation ID: [id number] Transcribed By: Self Edit Transcribed Date: 01/28/2025 11:11 ET Jami Mujica MD CV VASCULAR PROCEDURES Fi nal Result from Last 3 Months Insurance MEDICARE [facility] Care Teams Public Relations Director Relationship Specialty Start Date End Date Ryder Lou MD [id number] PCP - General Internal Medicine 11/27/18
--- OUTSIDE RECORDS SUMMARY | 2025-02-05 09:09 | XMS_ITS | Clinical Summary ---
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 0 [...] 10:38AM BY ZULEIKA KAN MA, ANNOTATION/ADDENDUM Immunizations Immunization Administration Dates Next Due Influenza (IM) Preservative [...] Visit [facility] [address] [place] [id number] Chandrakant Lei MD [address] [facility] [address] [place] [address] Health Maintenance Due Date Last [...] Hemoglobin A1C 04/03/2024 01/02/2024, 12/21 Pneumococcal Vaccine: 50+ Years Completed 04/13/2017, 04/13/2017, 02/09/2016 Pneumococcal Vaccine: Peds ( 0 to 5 Years) and At-Risk Patients (6 to 49 Years) Discontinued 04/13/2017, 04/13/2017, 02/09/2016 Influenza Vaccine Completed 07/19/2024, [...] Most Recently Relevant to Health Maintenance Insurance [facility] Medicare Medicare Care Teams Head Turbine Operator Relationship Specialty Start Date End Date Afia Cabrera MD [facility] [address] PCP - General Family Medicine 04/28/21
--- OUTSIDE RECORDS SUMMARY | 2025-02-05 09:09 | XMS_ITS | Data Portability ---
Author Organization JENIFER GREENBERG MD [facility], Main Office Address [address] [place] [phone] Assessment No assessment recorded. Plan of Treatment Reminders Order Date Submit Date Provider Last Modified By Organization Details Last Modified Time Details Appointments B20 FOLLOW UP 2024 12:00P M Marie Okeefe MD Not available Not available Not available Lab creatinin e w/ estimated GFR (eGFR), serum or plasma 2024 025 [email or web address] [facility], [address], [facility], [place], [address], 01/10/2025 12:32:55 hepatitis B DNA, quantitat chandrakant, serum 2024 025 [email or web address] [facility], [address], [place] , [place], [address], 01/10/2025 12:32:56 unlisted lab - alb+ALP+A LT+AST+tb garcía+PT 2024 025 [email or web address] [facility], [address], [place] , [place], [address], 01/10/2025 12:32:56 unlisted lab - HBV fibrosure 2024 025 [email or web address] [facility], [address], [place] , [place], [address], 01/10/2025 12:32:56 creatinin e w/ estimated GFR (eGFR), serum or plasma 2023 024 LISS [facility], [address], [facility], [place], [address], 07/04/2024 10:07:04 hepatitis C virus Ab, serum 2023 024 [email or web address] [facility], [address], [address], [place], [address], 07/10/2024 11:39:02 hepatitis B DNA, quantitat chandrakant, serum 2023 024 [email or web address] [facility], [address], [address], [place], [address], 07/10/2024 11:39:02 unlisted lab - alb+ALP+A LT+AST+tb garcía+PT 2023 024 [place]ISS [facility], [address], [address], [place], [address], 07/04/2024 10:07:03 CBC w/ diff 2022 023 [email or web address] [facility], [address], [address], [place], [place], [address], 09/26/2023 16:30:38 electroly george panel, blood 2022 023 [email or web address] [facility], [address], [address], [place], [place], [address], 09/26/2023 16:30:38 ALT (alanine aminotran sferase), serum or plasma 2022 023 LISS [facility], [address], [address], [place], [address], 08/23/2023 21:34:23 AST/SGOT (aspartat e aminotran sferase), serum or plasma 2022 023 LISS [facility], [address], [address], [place], [address], 08/23/2023 21:34:24 creatinin e w/ estimated GFR (eGFR), serum or plasma 2022 023 [email or web address] [facility], [address], [address], [place], [address], 09/26/2023 16:30:39 hepatitis C virus Ab, serum 2022 023 [place]ISS [facility], [address], [address], [place], [place], [address], 08/23/2023 23:21:23 RPR (rapid plasma reagin), serum 2022 023 [email or web address] [facility], [address], [address], [place], [place], [address], 09/26/2023 16:30:39 hepatitis B DNA, quantitat chandrakant, serum 2022 023 [place] [facility], [address], [address], [place], [address], 08/29/2023 15:10:11 unlisted lab - shelton fibrosure 2022 023 LISS [facility], [address], [address], [place], [place], [address], 08/27/2023 18:06:18 Referral None recorded. Procedures None recorded. Surgeries None recorded. Imaging US, abdomen [address] [facility] [place], [address], 01/14/2025 10:31:38 Medication Orders entecavir 0.5 mg tablet 2024 025 [facility], [facility], [place], [address], 2024 11:14:54 entecavir 0.5 mg tablet 2023 024 [facility], [facility] [place], [address], 07/03/2024 12:35:02 entecavir 0.5 mg tablet 2022 023 [facility], [facility] [place], [address], 08/23/2023 14:44:06 Patient TargetsNo targets recorded. Patient InstructionsNo instructions recorded. Reason for Referral None Reported. Results Created Date Observation Date Name Description Value Unit Range Abnormal Flag Note LastModifiedBy Organization Detail LastModifiedTime 08/23/2008/23/2023 COMPL ETE CBC WITH DIFF WBC 7.8 K/mm3 (4.0-1 1.0) Not Available [facility] (Centralized Electronic Ordering - All Locations) Patient Can Go To The Location Of Their Choice, [address] 08/23/2023 21:06:07 08/23/2008/23/2023 COMPL ETE CBC WITH DIFF RBC 5.03 M/mm3 (4.70- 6.10) Not Available [facility] (Centralized Electronic Ordering - All Locations) Patient Can Go To The Location Of Their Choice, [id number] 08/23/2023 21:06:07 08/23/2008/23/2023 COMPL ETE CBC WITH DIFF HGB 14.9 gm/dL (13.7- 17.1) Not Available [facility] (Centralized Electronic Ordering - All Locations) Patient Can Go To The Location Of Their Choice, [address] 08/23/2023 21:06:07 08/23/2008/23/2023 COMPL ETE CBC WITH DIFF HCT 45.5 % (40.5- 50.0) Not Available [facility] (Centralized Electronic Ordering - All Locations) Patient Can Go To The Location Of Their Choice, [id number] 08/23/2023 21:06:07 08/23/2008/23/2023 COMPL ETE CBC WITH [...] Of Their Choice, [facility] 08/23/2023 21:06:07 08/23/2008/23/2023 COMPL ETE CBC WITH DIFF lymph # 1.3 K/mm3 (0.8-3 .1) Not Available [facility] (Centralized Electronic Ordering - All Locations) Patient Can Go To The Location Of Their Choice, [address] 08/23/2023 21:06:07 08/23/2008/23/2023 COMPL ETE CBC WITH DIFF mono# 0.7 K/mm3 (0.4-1 .3) Not Available [facility] (Centralized Electronic Ordering - All Locations) Patient Can Go To The Location Of Their Choice, [facility] 08/23/2023 21:06:07 08/23/2008/23/2023 COMPL ETE CBC WITH DIFF eo # 0.2 K/mm3 (0.0-0 .4) Not Available [facility] (Centralized Electronic Ordering - All Locations) Patient Can Go To The Location Of Their Choice, [address] 08/23/2023 21:06:07 08/23/2008/23/2023 COMPL ETE CBC WITH DIFF baso # 0.1 K/mm3 (0.0-0 .1) Not Available [facility] (Centralized Electronic Ordering - All Locations) Patient Can Go To The Location Of Their Choice, [id number] 08/23/2023 21:06:07 08/23/2008/23/2023 COMPL ETE CBC WITH DIFF abs. imm gran 0.0 K/mm3 Not Available [facility] (Centralized Electronic Ordering - All Locations) Patient Can Go To The Location Of Their Choice, [id number] 08/23/2023 21:06:07 08/23/2008/23/2023 COMPL ETE CBC WITH DIFF neut 70.6 % (44-76 ) Not Available [facility] (Centralized Electronic Ordering - All Locations) Patient Can Go To The Location Of Their Choice, [address] 08/23/2023 21:06:07 08/23/2008/23/2023 COMPL ETE CBC WITH [...] Go To The Location Of Their Choice, [id number] 08/23/2023 21:06:07 08/23/2008/23/2023 COMPL ETE CBC WITH DIFF imm gran 0.4 % Not Available [facility] (Centralized Electronic Ordering - All Locations) Patient Can Go To The Location Of Their Choice, [id number] 08/23/2023 21:06:07 08/23/2008/23/2023 ALT ALT 24 U/L [...] Go To The Location Of Their Choice, [address] 08/23/2023 21:34:25 08/23/2008/23/2023 CREAT ININE estimated GFR [...] Go To The Location Of Their Choice, [address] 08/23/2023 21:34:25 08/23/20 23 08/23/2023 ELECT ROLYT ES sodium 137 mmol/ L (133-1 45) Not Available [facility] (Centralized Electronic Ordering - All Locations) Patient Can Go To The Location Of Their Choice, [address] 08/23/2023 21:34:25 08/23/20 23 08/23/2023 ELECT ROLYT [...] Go To The Location Of Their Choice, [address] 08/23/2023 23:21:24 08/23/20 23 08/27/2023 SHELTON FIBRO SURE fibrosis score 0.64 high Refer ence range : 0.00 to 0.21 Not Available [facility] (Centralized Electronic Ordering - All Locations) Patient Can Go To The Location Of Their Choice, [id number] 08/27/2023 18:06:18 08/23/20 23 08/27/2023 SHELTON FIBRO [...] Go To The Location Of Their Choice, [address] 08/27/2023 18:06:18 08/23/20 23 08/27/2023 SHELTON FIBRO SURE interpretati ons Commen t (NOTE ) Quant itati ve resul ts of 10 bioch emica ls in combi natio n with age and gende r, are diana zed using a compu tatio nal algor ithm to provi de a quant itati ve surro gate marke r (0.0- 1.0) of liver fibro sis ([place] vir F0-F4 ), hepat ic steat osis [...] had signi fican t NAFLD fibro sis ([place] vir F2-F4 ) and 11% had cirrh [...] y of 72% for ident ifyin g SHLETON and a speci ficit y of 71%.[ [...] Go To The Location Of Their Choice, [address] 08/27/2023 18:06:18 08/23/20 23 08/27/2023 SHELTON FIBRO [...] conta ct custo marc servi ce at [phone]. Refer ences : 1. Jennifer mejia V. [...] Go To The Location Of Their Choice, [id number] 08/27/2023 18:06:18 08/23/20 23 08/27/2023 SHEL[place] FIBRO SURE methodology Commen t (NOTE ) The diana george teste d are perfo rmed by Fibro Sure- Speci fic metho ds. Not inten ded for use with other diagn ostic consi derat ions. [facility] [place] , [facility] [facility] , [place] [address] Not Available [facility] (Centralized Electronic Ordering - All Locations) Patient Can Go To The Location Of Their Choice, [address] 08/27/2023 18:06:18 08/23/20 23 08/29/2023 HEPAT ITIS B QUANT ITATI VE, PLASM A hepatitis B quantitative , plas IU/mL Not detec benjamin HBV DNA was not detec benjamin in the speci men. Resul t repor benjamin to the [facility]. Testi ng perfo rmed by real time PCR utili [email or web address] HBV test. To preve nt error s [...] Go To The Location Of Their Choice, [id number] 08/29/2023 15:10:11 08/23/20 23 08/29/2023 HEPAT ITIS B QUANT ITATI VE, PLASM A hbvlog LOG value not calcul ated logiu /mL Not Available [facility] (Centralized Electronic Ordering - All Locations) Patient Can Go To The Location Of Their Choice, [address] 08/29/2023 15:10:11 07/03/20 24 07/04/2024 ALB+A LP+AL T+AST +TBIL I+PT albumin 4.3 g/dL 3.8-4. 8 normal Not Available [facility] ([facility]) [address] [facility], [place], [address], 07/04/2024 10:07:03 07/03/20 24 07/04/2024 ALB+A LP+AL T+AST +TBIL I+PT bilirubin, total 0.4 mg/dL 0.0-1. 2 normal Not Available [facility] ([facility]) [address] [place], [address], 07/04/2024 10:07:03 07/03/20 24 07/04/2024 ALB+A LP+AL T+AST +TBIL I+PT alkaline phosphatase 96 IU/L 44-121 normal Not Available [facility] ([facility]) [address] [facility], [place], [address], 07/04/2024 10:07:03 07/03/20 24 07/04/2024 ALB+A LP+AL T+AST +TBIL I+PT AST (SGOT) 20 IU/L 0-40 normal Not Available [facility] ([facility]) [address] [facility], [place], [address], 07/04/2024 10:07:03 07/03/20 24 07/04/2024 ALB+A LP+AL T+AST +TBIL I+PT ALT (SGPT) 16 IU/L 0-44 normal Not Available [facility] ([facility]) [address] [place], [address], 07/04/2024 10:07:03 07/03/20 24 07/04/2024 ALB+A LP+AL [...] range 2.5 - 3.5 Not Available [facility] ([facility]) [address] [facility], [place], [address], 07/04/2024 10:07:03 07/03/20 24 07/04/2024 ALB+A LP+AL T+AST +TBIL I+PT prothrombin time 11.3 sec 9.1-12 .0 normal Not Available [facility] ([facility]) [address] [facility], [place], [address], 07/04/2024 10:07:03 07/03/20 24 07/04/2024 GLOM FILT RATE, ESTIM ATED creatinine 1.72 mg/dL 0.76-1 .27 above high normal Not Available [facility] ([facility]) [address] [facility], [place], [address], 07/04/2024 10:07:04 07/03/20 24 07/04/2024 GLOM FILT RATE, ESTIM ATED eGFR 42 mL/mi n/1.7 3 >59 below low normal Not Available [facility] ([facility]) [address] [facility], [place], [address], 07/04/2024 10:07:04 07/03/20 24 07/04/2024 HCV ANTIB MIYA RFX TO QUANT PCR HCV Ab Non Reacti ve non reacti ve Not Available [facility] ([facility]) [address] [place], [address], 07/04/2024 10:07:05 07/03/2007/04/2024 HCV ANTIB MIYA RFX TO QUANT PCR interpretati on: Commen t Not infec benjamin with HCV unles s early or acute infec tion is suspe cted (whic h may be delay ed in an immun ocomp romis ed indiv idual ), or other evide nce exist s to indic ate HCV infec tion. Not Available [facility] ([facility]) [address] [facility], [place], [address], 07/04/2024 10:07:05 07/03/20 24 07/04/2024 HEPAT ITIS B SURF AB QUANT hepatitis B surf Ab quant 62.9 mIU/m L immuni ty>10 Statu s of Immun ity Anti- HBs Level ----- ----- ----- --- ----- ----- ---- Incon siste nt with Immun ity 0.0 - 10.0 Consi stent with Immun ity >10.0 Not Available [facility] ([facility]) [address] [facility], [place], [address], 07/04/2024 10:07:06 08/26/20 23 06/20/2023 US, abdom en No observ ation record ed. [email or web address] Not Available 08/26 16:46:31 07/05/20 24 03/08/2024 imagi ng/di agnos tic resul t No observ ation record ed. [email or web address] Not Available 07/05 10:01:27 07/05/20 24 02/13/2024 imagi ng/di agnos tic resul t No observ ation record ed. [email or web address] Not Available 07/05 10:04:14 Result Notes None recorded. Problems Name Problem SNOMED Code Status Onset Date Resolution Date Notes Provider Name and Address Organization Details Recorded Time Cholelith iasis with obstructi on 10624941 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 with obstructio n; 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; Report Immunity to Registry: Yes; Notes: u/s 2010; Not Available [facility] 4 06:58:53 Chronic obstructi ve pulmonary disease 00721000 Active 2019 Chronic obstructiv e lung disease; snomeddesc ription: Chronic obstructiv e lung disease; Report Immunity to Registry: Yes; Notes: pt reports dx by PCP; Chronic obstructiv e pulmonary disease, unspecifie d; snomeddesc ription: Chronic obstructiv e lung disease; Report Immunity to Registry: Yes; Notes: pt reports dx by PCP; Not Available [facility] 4 06:58:53 Cerebrova scular accident 459719999 Active 2019 Cerebrovas cular accident; snomeddesc ription: Cerebrovas cular accident; Report Immunity to Registry: Yes; Notes: hx; Not Available [facility] 4 06:58:53 Chronic kidney disease 880476452 Active 2021 Chronic kidney disease; snomeddesc ription: Chronic kidney disease; Report Immunity to Registry: Yes; Notes: 03/2021 eGFR =34; Not Available [facility] 4 06:58:53 Chronic type B viral hepatitis 96630268 Active 2022 Chronic type B viral hepatitis; [...] 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; F3 2020; Not Available [facility] 4 06:58:53 Myocardia l infarctio n 20020167 Active 2013 Myocardial infarction ; snomeddesc ription: Myocardial infarction ; Report Immunity to Registry: Yes; Notes: 07/03/14 stent x 3; Not Available [facility] 4 06:58:53 Gallbladd er and bile duct calculi 547325007 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; 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; Report Immunity to Registry: Yes; Notes: u/s 2010; Not Available [facility] 4 06:58:53 Abdominal aortic aneurysm 889681507 Active 2013 Abdominal aortic aneurysm without mention of rupture; snomeddesc ription: Abdominal aortic aneurysm; Report Immunity to Registry: Yes; Abdominal aortic aneurysm; snomeddesc ription: Abdominal aortic aneurysm; Report Immunity to Registry: Yes; Not Available [facility] 4 06:58:53 Acute myocardia l infarctio n 61143112 Active 2013 Acute myocardial infarction , unspecifie d site; snomeddesc ription: Myocardial infarction ; Report Immunity to Registry: Yes; Notes: 07/03/14 stent x 3; Not Available [facility] 4 06:58:54 Cerebral infarctio n 977381208 Active 2019 Cerebral infarction , unspecifie d; snomeddesc ription: Cerebrovas cular accident; Report Immunity to Registry: Yes; Notes: hx; Not Available [facility] 4 06:58:54 Problem Notes None recorded. Procedures Surgical History None recorded. Imaging Results Imaging Date Name Status LastModified by Organiz ation Details LastModified Time 06/20/2023 US, abdomen completed [email or web address] Information n ot available 08/26/2023 16:46:31 03/08/2024 imaging/diag nostic result completed [email or web address] Information not available 07/05/2024 10:01:27 02/13/2024 imaging/diag nostic result completed [email or web address] Information not available 07/05/2024 10:04:14 Procedure Notes [...] 19,400 unit/0.65 mL subcutane [place]ens[place] [address] Quantity : 1; Duration : 1; 0 [...] Not Available Not Available [facility] Hypertrichologist active Not Available Not Available Not Available Prevnar 20 (PF) 0.5 mL intramusc ular syringe - Quantity : 1; Duration : 1; 0 refill(s ) 03/04 completed Frequenc y: x1; Duration : 1; VACCINE_ IND: no; VACCINE_ NAME: Pneumoco ccal conjugat e PCV20, polysacc haride QPT351 conjugat e, adjuvant , PF; SU_FULL_ NAME: [...] Updated DateTime 3 172.72 cm 22.1 kg/m2 03595.6 9 g 98 [degF] 98 % 98 % 68 /min 110 mm[Hg] 78 mm[Hg] Eunice OKEEFE MD [facility] 3 14:31:17 Date Recorded Body height Heart rate Respiratory rate Body temperature Body mass index (BMI) Body weight Oxygen saturation Oxygen saturation in Arterial blood by Pulse oximetry Systolic blood pressure Diastolic blood pressure Provider Name and Address Organization Details Last Updated DateTime 4 172.72 cm 56 /min 10 /min 98.5 [degF] 23.4 kg/m2 79956.2 2 g 98 % 98 % 118 mm[Hg] 58 mm[Hg] Daniela OKEEFE MD [facility] 4 12:30:04 Date Recorded Body height Heart rate Respiratory rate Body temperature Body mass index (BMI) Body weight Systolic blood pressure Diastolic blood pressure Provider Name and Address Organization Details Last Updated DateTime 5 172.72 cm 67 /min 10 /min 97.8 [degF] 24 kg/m2 88615.5 9 g 146 mm[Hg] 60 mm[Hg] Daniela OKEEFE MD [facility] 5 10:52:47 Social History Question Answer Notes LastModified by Organizat ion Details LastModified Time Tobacco Smoking Status Never Smoker JENIFER Rodriguez MD [facility] 08/23/2023 14:32:12 Are You Blind Or Do You Have Difficulty Seeing? No [email or web address] Information not available 08/23/2023 Are You Deaf Or Do You Have Serious Difficulty Hearing? No [email or web address] Information not available 08/23/2023 Which Of Your Hands Is Dominant? Right [email or web address] Information not available 08/23/2023 Do You Feel Stressed (tense, Restless, Nervous, Or Anxious, Or Unable To Sleep At Night)? [id number] [email or web address] Information not available 08/23/2023 Sex: Male Functional Status Question Answer Note LastModified by Organizat ion Details LastModified Time Do you have difficulty walking or climbing stairs? Yes stroke Information not available 08/23/2023 Do you have transportation difficulties? No Information not available 08/23/2023 Are you able to walk? YESASSIST pt walks with a dorene [email or web address] Information not available 08/23/2023 Do you have difficulty doing errands alone? No [email or web address] Information not available 08/23/2023 Are you able to care for yourself? Yes [email or web address] Information n ot available 08/23/2023 Do you have difficulty dressing or bathing? Yes pt has a person that helps with bathing and dressing [email or web address] Information not available 08/23/2023 Mental Status Question Answer Note LastModified by Organization D etails LastModified Time Do you have difficulty concentrating, remembering or making decisions? No [email or web address] Information no t available 08/23/2023 Family History Nothing Reported Notes:Family history unknown , Response Property: Yes; , No known relatives, Response Property: Yes; Medical History Condition Response Coronary Artery Disease Y Stroke Y Diverticulitis Y Heart Disease Y Immunizations Vaccine Type Date Status Note Provider Nam e and Address Organization Details Recorded Time Influenza, split virus, quadrivalent, preservative 2 completed Not Available [facility] 12/13/2023 06:54:23 Influenza, split virus, quadrivalent, preservative 1 completed Not Available [facility] 12/13/2023 06:54:24 Past Encounters Encounter ID Performer Location Encounter Start Date Encounter Closed Date Diagnosis/Indication Diagnosis SNOMED-CT Code Diagnosis ICD10 Code Diagnosis Note [id number] Marie Okeefe MD Main Office [address] [place] [phone] 08/23/2023 14:09:45 08/23/2023 14:48:23 Type B viral hepatitis 31675696 B19.10 HBV: Continue Entecavir 0.5 mg po [...] of care reviewed. Questions and concerns addressed [id number] Marie Okeefe MD Main Office [address] [place] [phone] 07/03/2024 12:11:28 07/03/2024 12:39:10 Type B viral hepatitis 58535858 B19.10 HBV: Continue Entecavir 0.5 mg po [...] of care reviewed. Questions and concerns addressed [id number] Marie Okeefe MD Main Office [address] [place] [address] 2024 10:37:00 2024 11:19:47 Type B viral hepatitis 58269256 B19.10 HBV: Continue Entecavir 0.5 mg po [...] Guarantor Name 08/23/2023 1 [place] [employer] Phan Gipson [id number] Phan Gipson 08/23/2023 2 [place] 104 Phan Gipson [id number] Phan Gipson 07/03/2024 1 [place] [employer] Phan Gipson [id number] Phan Gipson 07/03/2024 2 [place] [employer] Phan Gipson [id number] Phan Gipson 2024 1 MEDICARE B-[place]: [facility] [employer] Phan Gipson [id number] Phan Gipson 2024 2 [place] [employer]D Phan Gipson [id number] Phan Gipson Notes Date Note Type Note [...] booster; will get arexvy. Marie Okeefe MD [address] [place] [address], [phone], JENIFER OKEEFE MD [facility] 08/23/2023 16:59:39 4 text/html f/u HBV. CKDon [...] booster; will get arexvy. Marie Okeefe MD [address] [place] [address], [phone], JENIFER OKEEFE MD [facility] 07/03/2024 12:46:44 5 text/html f/u HBV. CKDon [...] no n/v/d. no CP Marie Okeefe MD [address] [place] [address], [phone], JENIFER - MARIE OKEEFE MD [facility] 01/02/2025 22:53:47
--- OUTSIDE RECORDS SUMMARY | 2025-02-05 09:09 | XMS_ITS | Encounter Summary ---
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 Name Role Phone Afia Cabrera MD Primary Care Provider [phone] Encounter Details Date Type Department Care Team (Late Contact Info) Description 03/15/2021 Orders Only [facility] [address] [place] [phone] Chandrakant Lei MD [address] [facility] [address] [place] [address] Chronic type B viral hepatitis [...] Office Visit [facility] [address] [place] [phone] Chandrakant Lei MD [address] [facility] [address] [place] [address] documented as of this encounter [...] 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
== END 2025-02-05 08:44 | disposition home or self-care (01) ==
LOC: HO.US 08:43
PROVIDERS: PCP Family Medicine; Visit Provider Internal Medicine Infectious Disease
DX: B19.10 Unspecified viral hepatitis B without hepatic coma (principal)
CPT/HCPCS: 76700

== ENCOUNTER 2025-02-14 10:26 | Inpatient (IN) | payer MEDICARE, BC, SELFPAY ==
[2025-02-14] VITALS (9 sets, daily range): BP systolic 132–161; BP diastolic 55–70; PULSE 68–85; RESP 13–18; TEMP 36.8–38.4; O2SAT 94–98; BMI 23.8
--- NOTE | ~2025-02-14 | XR_ITS ---
EXAMINATION: XR CHEST CLINICAL INFORMATION: fever COMPARISON: 01/17/2022. TECHNIQUE: PA view of the chest was obtained. FINDINGS: The cardiac, hilar, and mediastinal contours are normal. Opacity in the right base suggestive of pneumonia. Left lung appears clear. No pneumothorax or effusion. No focal osseous or soft tissue abnormality. XR/XR chest 1V IMPRESSION: Right basilar pneumonia suspected. Electronically signed by: Liu Mcdermott MD 02/14/2025 12:39 PM EDT
--- NOTE | ~2025-02-14 | CT_ITS ---
EXAMINATION: CT ABDOMEN PELVIS WITHOUT IV CONTRAST HISTORY: N/V/D, fever COMPARISON: Comparison is made with the prior examination dated 03/27/2017. TECHNIQUE: CT scan of the abdomen and pelvis was performed without contrast using standard departmental protocol. Coronal and sagittal reformatted images were generated and reviewed. Oral contrast material was not administered at the request of the referring physician. This CT exam was performed with one or more of the following dose reduction techniques: automated exposure control, adjustment of the mA and/or kV according to patient size, use of iterative reconstruction technique. DLP: 598 mGy-cm FINDINGS: LOWER CHEST: There is airspace opacity in the right lower lobe, consistent with pneumonia. The visualized left lung base is clear. There is no pleural effusion. CARDIOVASCULATURE: The heart is normal in size. There is no pericardial effusion. LIVER: The liver is normal in size and contour. The liver has an unremarkable unenhanced appearance. GALLBLADDER / BILE DUCTS: There is cholelithiasis. There is no intra or extrahepatic biliary ductal dilatation. SPLEEN: The spleen is normal in size and has an unremarkable unenhanced appearance. PANCREAS: The pancreas has an unremarkable unenhanced appearance. ADRENAL GLANDS: Unremarkable. KIDNEYS/RETROPERITONEUM: The right kidney is atrophic which is a new finding. No renal calculi are identified. There is no hydronephrosis. LYMPH NODES: No retroperitoneal lymphadenopathy is identified in the abdomen or pelvis. VASCULATURE: There is a 3.7 cm infrarenal abdominal aortic aneurysm. No evidence of aneurysm leak. The left renal artery stent is seen in place. MESENTERY/PERITONEUM: No free fluid. No masses. There is no free intraperitoneal gas. STOMACH: The stomach is collapsed, limiting evaluation. SMALL BOWEL: The small bowel is normal in caliber. COLON: There is a moderate to large amount of stool throughout the colon. APPENDIX: The appendix is not seen, however no inflammatory changes are seen adjacent to the cecum. URINARY BLADDER/PELVIC ORGANS: The urinary bladder is unremarkable. The prostate is normal in size. BONES / SOFT TISSUES: There is severe degenerative disc disease at the L5-S1 level. CT/CT abdomen pelvis wo IV con IMPRESSION: 1. Right lower lobe pneumonia. 2. Cholelithiasis. 3. 3.7 cm infrarenal abdominal aortic aneurysm. 4. Atrophic right kidney. Electronically signed by: Mikey Wray MD 02/14/2025 12:05 PM EDT RP
--- NOTE | ~2025-02-14 | XR_ITS ---
EXAMINATION: XR SHOULDER, LEFT CLINICAL INFORMATION: fall COMPARISON: None available. TECHNIQUE: Three views of the left shoulder. FINDINGS: Normal bone mineralization. No fracture, dislocation, or suspicious bone lesion. Normal alignment. The glenohumeral joint is normal. The AC joint is normal. There is a neutral lateral acromion. No undersurface spurring. The subacromial space is preserved. Remainder of the soft tissue and bony structures appear normal. XR/XR shoulder LT min 2V IMPRESSION: No acute findings left shoulder. Electronically signed by: Liu Mcdermott MD 02/14/2025 12:40 PM EDT
--- NOTE | 2025-02-14 10:43 | ECG_ITS ---
Test Reason : N/V Blood Pressure : */* mmHG Vent. Rate : 82 BPM Atrial Rate : 82 BPM P-R Int : 162 ms QRS Dur : 142 ms QT Int : 438 ms P-R-T Axes : 39 72 5 degrees QTcB Int : 511 ms Normal sinus rhythm Right bundle branch block T wave abnormality, consider inferior ischemia Abnormal ECG When compared with ECG of 17-Jan-2022 16:16, No significant change was found Referred By: Erendira Vasquez Electronically Signed By: CLARICE ESPINO
--- NOTE | 2025-02-14 10:44 | ED_ITS ---
HPI - General Adult General Chief complaint: General Medical Stated complaint: N/V PER EMS Time Seen by Provider: 02/14/25 10:28 Source: patient, EMS, RN notes reviewed and old records reviewed Mode of arrival: EMS History of Present Illness ED Provider: Erendira Vasquez PA-C HPI narrative: 74-year-old male with a past medical history of diabetes, hepatitis-B, CAD, CKD, AAA, HTN, CVA with left-sided residual deficits, HLD, currently on Brilinta/ASA presenting to the ED via EMS complaining of chills, nausea, vomiting x this morning & left upper arm pain s/p mechanical fall out of bed 5 days ago during weird dream. Denies head strike or LOC. reports chronic diarrhea. denies chest pain, shortness of breath, cough, abdominal pain, hematemesis, sick contacts Related Data Home Medications ?Medication ?Instructions ?Recorded ?Confirmed aspirin 81 mg tablet,delayed 81 mg PO DAILY 09/10/20 12/06/24 release cholecalciferol (vitamin D3) 50 50 mcg PO DAILY 09/10/20 12/06/24 mcg (2,000 unit) capsule latanoprost 0.005 % eye drops 1 drp ophthalmic (eye) BEDTIME 09/10/20 12/06/24 (Xalatan) albuterol sulfate 90 mcg/actuation 2 puff inhalation Q4H PRN Wheezing 02/19/21 12/06/24 aerosol inhaler melatonin 5 mg tablet 5 mg PO BEDTIME 02/19/21 12/06/24 entecavir 0.5 mg tablet 0.5 mg PO DAILY 05/18/21 12/06/24 escitalopram oxalate 10 mg tablet 20 mg PO DAILY 05/18/21 12/06/24 amlodipine 5 mg tablet 10 mg PO DAILY 01/04/22 12/06/24 omeprazole 10 mg capsule,delayed 20 mg PO DAILY 03/01/23 12/06/24 release cetirizine 10 mg tablet 10 mg PO DAILY 12/05/23 12/06/24 ticagrelor 60 mg tablet 60 mg PO BID 12/05/23 12/06/24 acetaminophen 325 mg tablet 650 mg PO Q4H PRN Pain 09/16/24 12/06/24 metoprolol succinate 100 mg 100 mg PO ONCE 12/06/24 12/06/24 tablet,extended release 24 hr ticagrelor 60 mg tablet (Brilinta) 60 mg PO BID 12/06/24 12/06/24 Previous Rx's ?Medication ?Instructions ?Recorded ezetimibe 10 mg tablet (Zetia) 10 mg PO DAILY 90 days #90 tabs 11/26/20 atorvastatin 80 mg tablet 80 mg PO BEDTIME 30 days #30 tabs 02/12/21 hydralazine 50 mg tablet 50 mg PO BEDTIME #90 tabs 04/07/21 bolus insulin pump, 200 unit 2 #8 ea 12/13/24 unit bolus insulin patch pump, 200 unit, disposable (CeQur Simplicity) diabetic supplies, [employer]. #1 ea 12/13/24 (CeQur Simplicity Endodontic Assistant) Tresiba FlexTouch U-200 200 40 unit (0.2 mL) subcut DAILY 90 01/03/25 unit/mL (3 mL) subcutaneous pen days #18 mL (insulin degludec) insulin aspart U-100 100 unit/mL See Rx Instructions subcut 01/03/25 subcutaneous solution (Novolog USEASDIRECTD 90 days #40 mL U-100 Insulin aspart) Allergies Allergy/AdvReac Type Severity Reaction Status Date / Time No Known Allergies Allergy Verified 02/14/25 10:40 Review of Systems 2 Review of Systems: Yes all other systems are reviewed and are negative Constitutional: Constitutional: Reports as per [facility] Past Medical History Attestation statement: The following information was validated with the patient. Source: old records reviewed Medical History Diabetes type 2 T1DM (type 1 diabetes mellitus) Wears dentures Chronic hepatitis B Paralysis of left upper extremity Ambulates with cane Glaucoma Diverticulosis Diabetes Bilateral cataracts Uncontrolled diabetes mellitus with hyperglycemia History of stent insertion of renal artery CAD (coronary artery disease) Carotid artery disease Pituitary adenoma Cerebral microvascular disease Multiple cerebral infarctions Left hemiparesis CKD (chronic kidney disease) stage 3, GFR 30-59 ml/min AAA (abdominal aortic aneurysm) Left renal artery stenosis Hypertensive urgency CKD (chronic kidney disease) stage 3, GFR 30-59 ml/min Peroneal neuropathy Hypertension Encounter for loop recorder check Stroke due to stenosis of right carotid artery Stroke Status post placement of implantable loop recorder CVA (cerebral vascular accident) (~2020) TIA (transient ischemic attack) (~2020) Vitamin D deficiency Pituitary macroadenoma HLD (hyperlipidemia) HTN (hypertension) Surgical History Cataract extraction status of left eye (10/07/24) History of partial colectomy (~1997) History of heart artery stent History of carotid endarterectomy Family History Family History Father CVD (cardiovascular disease) AAA (abdominal aortic aneurysm) Mother No problems noted. Social History Social History Household Members: Spouse and Family Housing: House Are you a primary respiratory care instructor to a significant other at home: No Do you presently have visiting nurse or other home services: Yes ([employer] 5 x week) Alcohol intake: never Comment: bed rest, unable to ambulate per md Patient Tobacco Use Status: Former Tobacco user Tobacco use type: Cigarette Years Smoked: 50+ Second Hand Smoke Exposure: No Advance Directives: Yes Advance Directives on File: Yes Advance Directives Date on File: 01/09/21 Do you have a plan to hurt others: No Plan service: No Current occupational status: unemployed and retired Physical Exam ED Vital Signs: Vital Signs - 24 hr 02/14/25 10:37 02/14/25 11:55 02/14/25 12:30 Temperature 101.1 F H 99.5 F 98.4 F Pulse Rate 85 71 Respiratory Rate 18 5 L Blood Pressure 156/57 H 140/60 H Pulse Oximetry 95 95 Oxygen Delivery Method Room Air Room Air BMI result Body Mass Index 23.8 Const General: cooperative, healthy appearing and no acute distress Orientation/consciousness: patient oriented x3 Limitations: no limitations HENMT Head: Yes normal to inspection and Yes atraumatic Ears: hearing grossly normal bilaterally General nose exam: Normal external nose present Face and sinus: Yes normal facial exam Eyes General: appearance normal, both eyes and all related structures EOM: EOMs intact bilaterally Neck Neck: Yes normal visual inspection and Yes no meningeal signs Resp Effort & Inspection: normal respiratory effort and no respiratory distress Auscultation: clear to auscultation bilaterally, no crackles, no rales and no wheezes Cardio Rate: regular rate Heart sounds: S1 normal heart sound present and S2 normal heart sound present GI Inspection: Yes normal to inspection Palpation (GI): Soft to palpation, nontender, no guarding and not rigid Skin Rashes: no rashes Wounds: no wounds Neuro Other: LUE residual deficit from prior CVA General: patient oriented x3, tone normal and no meningeal signs Cranial nerves: Yes CN's II-XII intact bilaterally Extrem Other: LUE with mild swelling (baseline per patient). + mild tenderness to proximal humerus. Neurovascularly intact distally. Limited ROM chronically Course Course Course Narrative: -1145--leukocytosis of 20.9. H&H at patient's baseline. Chronic CKD, at patient's baseline. Lactic acid 2.1 > empiric IV Zosyn ordered 1233--CT abdomen pelvis wo IV con IMPRESSION: 1. Right lower lobe pneumonia. 2. Cholelithiasis. 3. 3.7 cm infrarenal abdominal aortic aneurysm. 4. Atrophic right kidney. -viral testing negative XR shoulder LT min 2V IMPRESSION: No acute findings left shoulder. XR chest 1V IMPRESSION: Right basilar pneumonia suspected. -troponin 42.2 likely from CKD > will obtain repeat > 1259--plan to admit for further management Medications Administered Discontinued Medications Generic Name Dose Route Start Last Admin Trade Name Freq PRN Reason Stop Dose Admin Acetaminophen 650 mg 02/14/25 10:43 02/14/25 11:12 Acetaminophen 325 Mg Tablet PO 02/14/25 10:44 650 mg ONCE ONE Administration Sodium Chloride 1,000 mls @ 999 mls/hr 02/14/25 10:45 02/14/25 11:12 Ns IV 02/14/25 11:45 999 mls/hr .Q1H1M BILLY Administration Piperacillin Sod/Tazobactam 50 mls @ 100 mls/hr 02/14/25 11:44 02/14/25 12:02 Sod 3.375 gm/ Sodium Chloride IV 02/14/25 12:13 100 mls/hr ONCE ONE Administration Medical Decision Making Medical Decision Making [facility] Narrative: 74-year-old male with a past medical history of diabetes, hepatitis-B, CAD, CKD, AAA, HTN, CVA with left-sided residual deficits, HLD, currently on Brilinta/ASA presenting to the ED via EMS complaining of chills, nausea, vomiting x this morning & left upper arm pain s/p mechanical fall out of bed 5 days ago during weird dream. On exam febrile to 101.1 rectally, NAD, nontoxic appearing, abdomen is soft/nontender, lungs CTA, left upper arm with reproducible tenderness, chronic contracture from prior CVA. Concern for gastroenteritis vs colitis/diverticulitis vs ? Food poisoning. Lower suspicion for acute appendicitis, pancreatitis, cholecystitis/lithiasis. Rule out fracture. Lower suspicion for acute CVA, or ICH Low suspicion for severe sepsis at this time Plan: EKG, labs, UA, CXR, CT AP, IVF, re-evaluate Please refer to course for remaining clinical decision making, interpretation of labs/imaging results, and discussions with consultants and/or family members. Differential Diagnosis Differential Diagnoses: The differential diagnosis associated with the presentation includes As above Admission/Observation Consideration of admission/observation: Escalation of care including admission/observation considered Lab Data MDM Lab Attestation statement: I reviewed the patient's lab results. 02/14/25 11:02 02/14/25 11:02 Labs: Lab Results 02/14/25 Range/Units 11:02 WBC 20.9 H (4.8-10.8) X10*3/uL RBC 3.90 L (4.60-5.80) X10*6/uL Hgb 11.5 L (14.0-18.0) g/dl Hct 34.2 L (42.0-52.0) % MCV 86.1 (80.0-98.0) fL MCH 29.0 (27.0-33.0) pg MCHC 33.6 (31.0-36.0) g/dl RDW 14.3 (11.0-16.0) % Plt Count 234 (160-400) X10*3/uL MPV 8.6 L (9.4-12.4) fL Immature Gran % (Auto) 0.4 (0.0-0.4) % Neut % (Auto) 85.9 H (45-73) % Lymph % (Auto) 3.9 L (20-40) % Vermillion % (Auto) 9.4 (2-11) % Eos % (Auto) 0.1 (0-4) % Baso % (Auto) 0.3 (0-2) % Lymph # (Auto) 0.8 L (1.2-4.9) X10*3/uL Vermillion # (Auto) 2.0 H (0.1-1.2) X10*3/uL Eos # (Auto) 0.0 (0.0-0.4) X10*3/uL Baso # (Auto) 0.1 (0.0-0.2) X10*3/uL Abs Immat Gran (auto) 0.09 H (0.00-0.03) X10*3/uL Absolute Neuts (auto) 18.0 H (2.0-8.3) x10*3/uL Absolute Nucleated RBC 0.000 (0.0-0.012) X10*3/uL Nucleated RBC % (auto) 0.0 (0.0-0.2) /100WBC Smear Tech's Comments VERIFIED Sodium 139 (135-145) mmol/L Potassium 4.1 (3.3-5.1) mmol/L Chloride 107 (96-108) mmol/L Carbon Dioxide 24 (22-29) mmol/L Anion Gap 12 (12-20) BUN 21 H (9-16) mg/dL Creatinine 1.54 H (0.5-1.4) mg/dL Estim Creat Clear Calc 41.3 Estimated GFR 45 Random Glucose 171 H (60-115) mg/dL Lactic Acid 2.1 H* (0.5-2.0) mmol/L Calcium 9.1 (8.4-10.2) mg/dL Magnesium 1.9 (1.6-2.6) mg/dL Total Bilirubin 0.6 (0.0-1.0) mg/dL Direct Bilirubin 0.3 (0.0-0.5) mg/dL AST 25 (5-37) U/L ALT 14 (0-40) U/L Alkaline Phosphatase 78 (39-117) U/L Troponin I High Sens 42.2 H (<3.5-35.0) ng/L Total Protein 6.9 (6.5-8.0) g/dL Albumin 3.9 (3.5-5.0) g/dL Lipase 4 L (8-78) U/L Influenza Type A (PCR) NEGATIVE (Negative) Influenza Type B (PCR) NEGATIVE (Negative) RSV RNA Qual (PCR) NEGATIVE (Negative) SARS-CoV-2 RNA (RT-PCR) NEGATIVE (Negative) Independent Interpretation I performed an independent interpretation of an: Plain X-Ray and CT Scan Radiology Impression Discussion of test interpretation with radiology: I have reviewed the radiologist's reading. Independent Historian Clinical information obtained from an independent historian. History obtained from or confirmed by: EMS External Record Review External record reviewed: Inpatient record, Office record, Outpatient record, Prior outpatient labs, Prior outpatient radiology, Primary care record and Outside ED record Tests considered The following testing was considered but not selected: As above Prescription Management I considered prescription management with: Pain Medication, Antibiotic and Other Chronic Conditions Patient?s care impacted by: Hypertension and Other (CVA) Critical Care Time Critical Care Time Critical Care Time: Yes Total Critical Care Time: 40 Attestation: I have personally provided critical care time exclusive of time spent on separately billable procedures. Time includes review of lab data, radiology results, discussion with consultants, and monitoring for potential decompensation. Intervention performed as documented. Discharge Plan Discharge Clinical Impression: Pneumonia Patient Disposition: Admitted As Inpatient Print Language: Telugu
[2025-02-14 11:10] LABS: Basophils Absolute Auto 0.1 X10*3/uL (0.0-0.2); Basophils Percent Auto 0.3 % (0-2); Eosinophils Percent Auto 0.1 % (0-4); Hematocrit 34.2 % (42.0-52.0); Hemoglobin 11.5 g/dl (14.0-18.0); Imm Gran Abs Auto 0.09 X10*3/uL (0.00-0.03); Imm Gran Pct Auto 0.4 % (0.0-0.4); Lymphocytes Absolute Auto 0.8 X10*3/uL (1.2-4.9); Lymphocytes Percent Auto 3.9 % (20-40); MANUAL DIFF FLAG SCAN; Mean Corpuscular HGB Conc 33.6 g/dl (31.0-36.0); Mean Corpuscular Volume 86.1 fL (80.0-98.0); Mean Platelet Volume 8.6 fL (9.4-12.4); Monocytes Percent Auto 9.4 % (2-11); Neutrophils Percent Auto 85.9 % (45-73); Platelet Count 234 X10*3/uL (160-400); Red Cell Distribution Width 14.3 % (11.0-16.0); SCAN SMEAR FLAG 1; White Blood Count 20.9 X10*3/uL (4.8-10.8)
[2025-02-14] MEDS: 0.9 % Sodium Chloride 1,000 ML 999 ML IV (11:12)
[2025-02-14] MEDS: Acetaminophen 325 MG TABLET 650 MG PO ×2 (11:12→21:42)
[2025-02-14 11:24] LABS: Alanine Aminotransferase 14 U/L (0-40); Albumin Level 3.9 g/dL (3.5-5.0); Alkaline Phosphatase 78 U/L (39-117); Anion Gap 12 (12-20); Aspartate Amino Transferase 25 U/L (5-37); Bilirubin Direct 0.3 mg/dL (0.0-0.5); Bilirubin Total 0.6 mg/dL (0.0-1.0); Blood Urea Nitrogen 21 mg/dL (9-16); Calcium 9.1 mg/dL (8.4-10.2); Carbon Dioxide 24 mmol/L (22-29); Chloride 107 mmol/L (96-108); Creatinine Clr Calc Pharmacy 41.3; Estimated Glomerular Filt Rate 45; Glucose Random 171 mg/dL (60-115); Lactic Acid 2.1 mmol/L (0.5-2.0); Lipase 4 U/L (8-78); Magnesium 1.9 mg/dL (1.6-2.6); Potassium 4.1 mmol/L (3.3-5.1); Sodium 139 mmol/L (135-145); Total Protein 6.9 g/dL (6.5-8.0)
[2025-02-14 11:35] LABS: SLIDE REVIEW VERIFIED
[2025-02-14] MEDS: Piperacillin Sodium/Tazobactam 3.375 GM in 0.9 % Sodium Chloride 50 ML IV (12:02)
[2025-02-14 12:05] LABS: Influenza A PCR NEGATIVE (Negative); Influenza B PCR NEGATIVE (Negative); Resp Syncy Virus RNA Qual PCR NEGATIVE (Negative); SARS COV2 PCR INHOUSE NEGATIVE (Negative)
--- OUTSIDE RECORDS SUMMARY | 2025-02-14 12:07 | XMS_ITS | Encounter Summary ---
Author Organization [facility] Address [address] [facility] [address] [place] [address] Phone Care Team Providers Care Adult Day Care Worker Name Role Phone Afia Cabrera MD Primary Care Provider [phone] Encounter Details Date Type Department Care Team (Late Contact Info) Description 12/20/2021 Documentation Only [facility] [address] [facility] [place] [address] Chandrakant Lei MD [address] [address] Social History Tobacco Use Types [...] Visit [facility] [address] [place] [address] [place]kant Le[place] MD [address] [address] documented as of this encounter Visit Diagnoses Not on filedocumented in this encounter Care Teams Adult Day Care Worker Relationship Specialty Start Date End Date Afia Cabrera MD [address] [address] PCP - General Family Medicine 04/28/21 documented as of this encounter
--- OUTSIDE RECORDS SUMMARY | 2025-02-14 12:07 | XMS_ITS | Clinical Summary ---
Author Organization [facility] Address [address] [place] [address] Phone Care Team Providers Care Insurance Examiner Name Role Phone Ryder Lou MD Primary Care Provider [phone] Allergies No known active allergies Active Problems Problem Noted Date Diagnosed Date Spasticity as late effect of cerebrovascular acc ident (CVA) 06/01/2021 Acquired melanocytic nevus of retina 05/07/2019 Overview (10/06/2024): OS Cataract 05/07/2019 Chronic hepatitis B ([facility] V24, [facility] V28) 0 05/07/2019 Overview (10/06/2024): Truvada Claudication ([facility] V24) 05/07/2019 Condyloma acuminata 05/07/2019 Genital herpes 05/07/2019 Glaucoma 05/07/2019 Hyperlipidemia 05/07/2019 Hypertension 05/07/2019 Insomnia 05/07/2019 Lumbar radiculopathy 05/07/2019 Myelinated nerve fibers of optic disc, right Coronary artery disease 05/07/2019 Overview (10/06/2024): Old NSTEMI, stents x 3 Retinal artery plaque 05/07/2019 Pituitary mass ([facility] V24) 05/07/2019 Type 1 diabetes mellitus ([facility] V24, [facility] V 28) 05/07/2019 Abdominal aortic aneurysm (A AA) without rupture ([facility] V24) 01/09/2019 Carotid stenosis, bilateral 01/09/2019 PAD (peripheral artery disease) ([facility] V24) Encounters Date Type Department Care Team Description 01/27/2025 12:37 PM EDT - 01/27/2025 11:59 PM EDT Hospital Encounter [facility] Ultrasound [address] [place] [address] Bilateral lower extremity pain; Other [...] HISTORICAL APPENDECTOMY OTHER SURGICAL HISTORY 1997 PROCEDURE: MI COLECTOMY PARTIAL W/ANASTOMOSIS; COMMENT: sigmoid resection for [...] disc, right PAD (peripheral artery disea se) ([facility] V24) 01/09/2019 DX:PAD (peripheral artery di sease) ([facility]) Pituitary mass ([facility] V24) 05/07/2019 DX: Pituitary mass (HCC) Retinal artery plaque 05/07/2019 DX:Retinal artery plaque Type 1 diabetes mellitus wit h cataract ([facility] V24, [facility] V28) 05/07/2019 DX:Type 1 diabetes mellitus with cataract ([facility]) Type 1 diabetes mellitus wit h peripheral vascular disease ([facility] V24, [facility] V28) 05/07/2019 DX:Type 1 diabetes mellitus with peripheral vascular disease (HCC) Family History Medical History Relation Name Comments Alcohol abuse Father throat cancer, [place], AAA Heart attack Maternal Grandfather Other: hyperlipidemia [...] PM EDT Office Visit [facility] [address] [place] [address] Jami Mujica MD [address] [place] [address] Health Maintenance Due Date Last Done Comments [...] Annual BMP Blood Test 10/06/2022 COVID-19 Vaccine (7 - Pfizer risk 2023- season) 2025 08/01/2024, 08/17/2023, 08/02/2022, Additional history exists DTaP,Tdap,and Td Vaccines (3 - Td or Tdap) 04/16/2028 04/16/2018, 04/13/2017 Zoster Vaccines Completed 04/11/2020, 01/2019, 04/20/2016 Pneumococcal Vaccine: 50+ Years Completed 03/15/2023, 04/13/2017, 04/13/2017, Additional history exists Influenza Vaccine Completed 07/19/2024, , 07/04/2022, Additional history exists RSV Immunization Adult Patients [...] Signed Date: 01/28/2025 11:24 ET Workstation ID: [id number] Transcribed By: Self Edit Transcribed Date: 01/28/2025 [...] Signed Date: 01/28/2025 11:24 ET Workstation ID: [id number] Transcribed By: Self Edit Transcribed Date: 01/28/2025 11:11 ET Jami Mujica MD CV VASCULAR PROCEDURES Fi nal Result from Last 3 Months Insurance MEDICARE [facility] [[email or web address]] Care Teams Insurance Examiner Relationship Specialty Start Date End Date Ryder Lou MD [address] [facility] [address] [place], [place] PCP - General Internal Medicine 11/27/18
--- OUTSIDE RECORDS SUMMARY | 2025-02-14 12:07 | XMS_ITS | Encounter Summary ---
Author Organization [facility] Address [address] [facility] [address] [place] [address] Phone Care Team Providers Care Cell Inspector Name Role Phone Afia Cabrera MD Primary Care Provider [phone] Encounter Details Date Type Department Care Team (Late Contact Info) Description 03/15/2021 Orders Only [facility] [address] [place] [address] Chandrakant Lei MD [address] [facility] [address] [place] [address] Chronic type B viral hepatitis [...] Office Visit [facility] [address] [place] [address] Chandrakant Lei MD [address] [facility] [address] [place] [address] documented as of this encounter Procedures Procedure Name Priority Date/Time Associated Diagnosis Comments BIOIMPEDANCE DERIVED PHYSIOLOGIC CV ANALYSIS Routine 03/18/2021 10:10 AM EDT Chronic type B viral hepatitis (HCC) Stage 3b chronic kidney disease (HCC) Renal osteodystrophy documented in this encounter Results * Bioimpedance Derived Physiologic CV Analsysis (03/18/2021 10:10 AM EDT) Anatomical Region Laterality Modality Other Cahndrakant Lei MD CV CARDIAC SERVICES PROCEDURE S Final Result documented in this encounter Visit Diagnoses Diagnosis Chronic type B viral hepatitis (HCC) Stage 3b chronic kidney disease (HCC) Renal osteodystrophy documented in this encounter Care Teams Cell Inspector Relationship Specialty Start Date End Date Afia Cabrera MD [address] [address] PCP - General Family Medicine 04/28/21 documented as of this encounter
--- OUTSIDE RECORDS SUMMARY | 2025-02-14 12:07 | XMS_ITS | Clinical Summary ---
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/26/2021 Hemiplegia and/or hemiparesis following stroke 0 [...] Carotid artery stenosis 11/26/2017 Peripheral circulatory disor kalai due to type 1 diabetes mellitus 11/26/2017 [...] Visit [facility] [address] [place] [address] Chandrakant Lei MD [address] [facility] [address] [place] [address] Health Maintenance Due Date Last [...] Most Recently Relevant to Health Maintenance Insurance [facility] Medicare Medicare Care Teams Sustainable Landscape Architect Relationship Specialty Start Date End Date Afia Cabrera MD [facility] [address] PCP - General Family Medicine 04/28/21
--- OUTSIDE RECORDS SUMMARY | 2025-02-14 12:07 | XMS_ITS | Encounter Summary ---
Author Organization [facility] Address [address] [facility] [address] [place] [address] Phone Care Team Providers Care Seismograph Operator Helper Name Role Phone Afia Cabrera MD Primary Care Provider [phone] Encounter Details Date Type Department Care Team (Late Contact Info) Description 02/25/2022 Documentation Only [facility] [address] [facility] [address] [place] [address] Chandrakant Lei MD [address] [facility] [address] [place] [address] Social History Tobacco Use Types [...] Visit [facility] [address] [place] [address] Chandrakant Lei MD [address] [facility] [address] [place] [address] documented as of this encounter Visit Diagnoses Not on filedocumented in this encounter Care Teams Seismograph Operator Helper Relationship Specialty Start Date End Date Afia Cabrera MD [address] [facility] [address] [place] [address] PCP - General Family Medicine 04/28/21 documented as of this encounter
--- OUTSIDE RECORDS SUMMARY | 2025-02-14 12:07 | XMS_ITS | Data Portability ---
Author Organization JENIFER GREENBERG MD [facility], Main Office Address [address] [place] [phone] Assessment No assessment recorded. Plan of Treatment Reminders Order Date Submit Date Provider Last Modified By Organization Details Last Modified Time Details Appointments B20 FOLLOW UP 2024 12:00P M Marie Okeefe MD Not available Not available Not available Lab creatinin e w/ estimated GFR (eGFR), serum or plasma 2024 025 [email or web address] [facility], [address], [facility], [place], [address], 01/10/2025 12:32:55 hepatitis B DNA, quantitat chandrakant, serum 2024 025 [email or web address] [facility], [address], [place] , [place], [address], 01/10/2025 12:32:56 unlisted lab - alb+ALP+A LT+AST+tb garcía+PT 2024 025 [email or web address] [facility], [address], [place] , [place], [address], 01/10/2025 12:32:56 unlisted lab - HBV fibrosure 2024 025 [email or web address] [facility], [address], [place] , [place], [address], 01/10/2025 12:32:56 creatinin e w/ estimated GFR (eGFR), serum or plasma 2023 024 LISS [facility], [address], [facility], [place], [address], 07/04/2024 10:07:04 hepatitis C virus Ab, serum 2023 024 [email or web address] [facility], [address], [address], [place], [address], 07/10/2024 11:39:02 hepatitis B DNA, quantitat chandrakant, serum 2023 024 [email or web address] [facility], [address], [address], [place], [address], 07/10/2024 11:39:02 unlisted lab - alb+ALP+A LT+AST+tb garcía+PT 2023 024 LISS [facility], [address], [place], [place], [address], 07/04/2024 10:07:03 CBC w/ diff 2022 023 [email or web address] [facility], [address], [address], [place], [place], [address], 09/26/2023 16:30:38 electroly george panel, blood 2022 023 [email or web address] [facility], [address], [address], [place], [place], [address], 09/26/2023 16:30:38 ALT (alanine aminotran sferase), serum or plasma 2022 023 LISS [facility], [address], [address], [place], [address], 08/23/2023 21:34:23 AST/SGOT (aspartat e aminotran sferase), serum or plasma 2022 023 LISS [facility], [address], [address], [place], [address], 08/23/2023 21:34:24 creatinin e w/ estimated GFR (eGFR), serum or plasma 2022 023 [email or web address] [facility], [address], [address], [place], [address], 09/26/2023 16:30:39 hepatitis C virus Ab, serum 2022 023 LISS [facility], [address], [address], [place], [place], [address], 08/23/2023 23:21:23 RPR (rapid plasma reagin), serum 2022 023 [email or web address] [facility], [address], [address], [place], [place], [address], 09/26/2023 16:30:39 hepatitis B DNA, quantitat chandrakant, serum 2022 023 LISS [facility], [address], [address], [place], [address], 08/29/2023 15:10:11 unlisted lab - shelton fibrosure 2022 023 LISS [facility], [address], [address], [place], [place], [address], 08/27/2023 18:06:18 Referral None recorded. Procedures None recorded. Surgeries None recorded. Imaging US, abdomen [address] [facility] [place], [address], 01/14/2025 10:31:38 Medication Orders entecavir 0.5 mg tablet 2024 025 [facility], [facility], [place], [address], 2024 11:14:54 entecavir 0.5 mg tablet 2023 024 [facility] [place], [address], 07/03/2024 12:35:02 entecavir 0.5 mg tablet 2022 023 [facility], [place] [address], 08/23/2023 14:44:06 Patient TargetsNo targets recorded. Patient InstructionsNo instructions recorded. Reason for Referral None Reported. Results Created Date Observation Date Name Description Value Unit Range Abnormal Flag Note LastModifiedBy Organization Detail LastModifiedTime 08/23/2008/23/2023 COMPL ETE CBC WITH DIFF WBC 7.8 K/mm3 (4.0-1 1.0) Not Available [facility] (Centralized Electronic Ordering - All Locations) Patient Can Go To The Location Of Their Choice, [address] 08/23/2023 21:06:07 08/23/2008/23/2023 COMPL ETE CBC WITH DIFF RBC 5.03 M/mm3 (4.70- 6.10) Not Available [facility] (Centralized Electronic Ordering - All Locations) Patient Can Go To The Location Of Their Choice, [address] 08/23/2023 21:06:07 08/23/2008/23/2023 COMPL ETE CBC WITH DIFF HGB 14.9 gm/dL (13.7- 17.1) Not Available [facility] (Centralized Electronic Ordering - All Locations) Patient Can Go To The Location Of Their Choice, [address] 08/23/2023 21:06:07 08/23/2008/23/2023 COMPL ETE CBC WITH DIFF HCT 45.5 % (40.5- 50.0) Not Available [facility] (Centralized Electronic Ordering - All Locations) Patient Can Go To The Location Of Their Choice, [address] 08/23/2023 21:06:07 08/23/2008/23/2023 COMPL ETE CBC WITH [...] To The Location Of Their Choice, [facility] 08/23/2023 21:06:07 08/23/2008/23/2023 COMPL ETE CBC WITH DIFF lymph # 1.3 K/mm3 (0.8-3 .1) Not Available [facility] (Centralized Electronic Ordering - All Locations) Patient Can Go To The Location Of Their Choice, [id number] 08/23/2023 21:06:07 08/23/2008/23/2023 COMPL ETE CBC WITH DIFF mono# 0.7 K/mm3 (0.4-1 .3) Not Available [facility] (Centralized Electronic Ordering - All Locations) Patient Can Go To The Location Of Their Choice, [facility] 08/23/2023 21:06:07 08/23/2008/23/2023 COMPL ETE CBC WITH DIFF eo # 0.2 K/mm3 (0.0-0 .4) Not Available [facility] (Centralized Electronic Ordering - All Locations) Patient Can Go To The Location Of Their Choice, [address] 08/23/2023 21:06:07 08/23/2008/23/2023 COMPL ETE CBC WITH DIFF baso # 0.1 K/mm3 (0.0-0 .1) Not Available [facility] (Centralized Electronic Ordering - All Locations) Patient Can Go To The Location Of Their Choice, [id number] 08/23/2023 21:06:07 08/23/2008/23/2023 COMPL ETE CBC WITH DIFF abs. imm gran 0.0 K/mm3 Not Available [facility] (Centralized Electronic Ordering - All Locations) Patient Can Go To The Location Of Their Choice, [address] 08/23/2023 21:06:07 08/23/2008/23/2023 COMPL ETE CBC WITH DIFF neut 70.6 % (44-76 ) Not Available [facility] (Centralized Electronic Ordering - All Locations) Patient Can Go To The Location Of Their Choice, [address] 08/23/2023 21:06:07 08/23/2008/23/2023 COMPL ETE CBC WITH [...] Go To The Location Of Their Choice, [id number] 08/23/2023 21:06:07 08/23/2008/23/2023 COMPL ETE CBC WITH DIFF imm gran 0.4 % Not Available [facility] (Centralized Electronic Ordering - All Locations) Patient Can Go To The Location Of Their Choice, [address] 08/23/2023 21:06:07 08/23/2008/23/2023 ALT ALT 24 U/L [...] Go To The Location Of Their Choice, [address] 08/23/2023 21:34:25 08/23/2008/23/2023 CREAT ININE estimated GFR [...] Go To The Location Of Their Choice, [id number] 08/23/2023 21:34:25 08/23/20 23 08/23/2023 ELECT ROLYT ES sodium 137 mmol/ L (133-1 45) Not Available [facility] (Centralized Electronic Ordering - All Locations) Patient Can Go To The Location Of Their Choice, [id number] 08/23/2023 21:34:25 08/23/20 23 08/23/2023 ELECT ROLYT [...] Go To The Location Of Their Choice, [address] 08/23/2023 23:21:24 08/23/20 23 08/27/2023 SHEL[place] FIBRO SURE fibrosis score 0.64 high Refer ence range : 0.00 to 0.21 Not Available [facility] (Centralized Electronic Ordering - All Locations) Patient Can Go To The Location Of Their Choice, [address] 08/27/2023 18:06:18 08/23/20 23 08/27/2023 SHEL[place] FIBRO [...] Go To The Location Of Their Choice, [id number] 08/27/2023 18:06:18 08/23/20 23 08/27/2023 [place] FIBRO SURE interpretati ons Commen t (NOTE ) Quant itati ve resul ts of 10 bioch emica ls in combi natio n with age and gende r, are diana zed using a compu tatio nal algor ithm to provi de a quant itati ve surro gate marke r (0.0- 1.0) of liver fibro sis ([place] vir F0-F4 ), hepat ic steat osis [...] had signi fican t NAFLD fibro sis ([place] vir F2-F4 ) and 11% had cirrh [...] hepat itis and/o r extra -hepa tic niesha stasi s. Any of these clini chivo situa tions may lead to inacc urate quant itati ve predi ction s of fibro sis. Not Available [facility] (Centralized Electronic Ordering - All Locations) Patient Can Go To The Location Of Their Choice, [id number] 08/27/2023 18:06:18 08/23/20 23 08/27/2023 SHEL[place] FIBRO [...] conta ct custo marc servi ce at [phone]. Refer ences : 1. Jennifer mejia V. [...] Go To The Location Of Their Choice, [id number] 08/27/2023 18:06:18 08/23/20 23 08/27/2023 [place] FIBRO SURE methodology Commen t (NOTE ) The diana george teste d are perfo rmed by Fibro Sure- Speci fic metho ds. Not inten ded for use with other diagn ostic consi derat ions. [facility] [place] , [facility] [facility] , [place] [address] Not Available [facility] (Centralized Electronic Ordering - All Locations) Patient Can Go To The Location Of Their Choice, [id number] 08/27/2023 18:06:18 08/23/20 23 08/29/2023 HEPAT ITIS B QUANT ITATI VE, PLASM A hepatitis B quantitative , plas IU/mL Not detec benjamin HBV DNA was not detec benjamin in the speci men. Resul t repor benjamin to the [facility]. Testi ng perfo rmed by real time PCR utili Sweeten[employer] Gradient X0 HBV test. To preve nt error s [...] Go To The Location Of Their Choice, [address] 08/29/2023 15:10:11 08/23/20 23 08/29/2023 HEPAT ITIS B QUANT ITATI VE, PLASM A hbvlog LOG value not calcul ated logiu /mL Not Available [facility] (Centralized Electronic Ordering - All Locations) Patient Can Go To The Location Of Their Choice, [id number] 08/29/2023 15:10:11 07/03/20 24 07/04/2024 ALB+A LP+AL T+AST +TBIL I+PT albumin 4.3 g/dL 3.8-4. 8 normal Not Available [facility] ([facility]) [address], [place], [address], 07/04/2024 10:07:03 07/03/20 24 07/04/2024 ALB+A LP+AL T+AST +TBIL I+PT bilirubin, total 0.4 mg/dL 0.0-1. 2 normal Not Available [facility] ([facility]) [address] [place], [address], 07/04/2024 10:07:03 07/03/20 24 07/04/2024 ALB+A LP+AL T+AST +TBIL I+PT alkaline phosphatase 96 IU/L 44-121 normal Not Available [facility] ([facility]) [address], [place], [address], 07/04/2024 10:07:03 07/03/20 24 07/04/2024 ALB+A LP+AL T+AST +TBIL I+PT AST (SGOT) 20 IU/L 0-40 normal Not Available [facility] ([facility]) [address], [place], [address], 07/04/2024 10:07:03 07/03/20 24 07/04/2024 ALB+A LP+AL T+AST +TBIL I+PT ALT (SGPT) 16 IU/L 0-44 normal Not Available [facility] ([facility]) [address] [place], [address], 07/04/2024 10:07:03 07/03/20 24 07/04/2024 ALB+A LP+AL [...] - 3.5 Not Available [facility] ([facility]) [address], [place], [address], 07/04/2024 10:07:03 07/03/20 24 07/04/2024 ALB+A LP+AL T+AST +TBIL I+PT prothrombin time 11.3 sec 9.1-12 .0 normal Not Available [facility] ([facility]) [address], [place], [address], 07/04/2024 10:07:03 07/03/20 24 07/04/2024 GLOM FILT RATE, ESTIM ATED creatinine 1.72 mg/dL 0.76-1 .27 above high normal Not Available [facility] ([facility]) [address], [place], [address], 07/04/2024 10:07:04 07/03/20 24 07/04/2024 GLOM FILT RATE, ESTIM ATED eGFR 42 mL/mi n/1.7 3 >59 below low normal Not Available [facility] ([facility]) [address], [place], [address], 07/04/2024 10:07:04 07/03/20 24 07/04/2024 HCV ANTIB MIYA RFX TO QUANT PCR HCV Ab Non Reacti ve non reacti ve Not Available [facility] ([facility]) [address] [place], [address], 07/04/2024 10:07:05 07/03/2007/04/2024 HCV ANTIB MIYA RFX TO QUANT PCR interpretati on: Commen t Not infec benjamin with HCV unles s early or acute infec tion is suspe cted (whic h may be delay ed in an immun ocomp romis ed indiv idual ), or other evide nce exist s to indic ate HCV infec tion. Not Available [facility] ([facility]) [address], [place], [address], 07/04/2024 10:07:05 07/03/20 24 07/04/2024 HEPAT ITIS B SURF AB QUANT hepatitis B surf Ab quant 62.9 mIU/m L immuni ty>10 Statu s of Immun ity Anti- HBs Level ----- ----- ----- --- ----- ----- ---- Incon siste nt with Immun ity 0.0 - 10.0 Consi stent with Immun ity >10.0 Not Available [facility] ([facility]) [address], [place], [address], 07/04/2024 10:07:06 08/26/20 23 06/20/2023 US, abdom en No observ ation record ed. [email or web address] Not Available 08/26 16:46:31 07/05/20 24 03/08/2024 imagi ng/di agnos tic resul t No observ ation record ed. [email or web address] Not Available 07/05 10:01:27 07/05/20 24 02/13/2024 imagi ng/di agnos tic resul t No observ ation record ed. Not Available 07/05 10:04:14 02/10/20 25 02/05/2025 US, abdom en No observ ation record ed. [email or web address] Not Available 2024 12:47:09 Result Notes None recorded. Problems Name Problem SNOMED Code Status Onset Date Resolution Date Notes Provider Name and Address Organization Details Recorded Time Cholelith iasis with obstructi on 54613614 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 with obstructio n; 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; Report Immunity to Registry: Yes; Notes: u/s 2010; Not Available [facility] 4 06:58:53 Chronic obstructi ve pulmonary disease 05975082 Active 2019 Chronic obstructiv e lung disease; snomeddesc ription: Chronic obstructiv e lung disease; Report Immunity to Registry: Yes; Notes: pt reports dx by PCP; Chronic obstructiv e pulmonary disease, unspecifie d; snomeddesc ription: Chronic obstructiv e lung disease; Report Immunity to Registry: Yes; Notes: pt reports dx by PCP; Not Available [facility] 4 06:58:53 Cerebrova scular accident 415680321 Active 2019 Cerebrovas cular accident; snomeddesc ription: Cerebrovas cular accident; Report Immunity to Registry: Yes; Notes: hx; Not Available [facility] 4 06:58:53 Chronic kidney disease 560529532 Active 2021 Chronic kidney disease; snomeddesc ription: Chronic kidney disease; Report Immunity to Registry: Yes; Notes: 03/2021 eGFR =34; Not Available [facility] 4 06:58:53 Chronic type B viral hepatitis 32825332 Active 2022 Chronic type B viral hepatitis; [...] fibrosure 04/2020; F3 2020; Not Available [facility] 4 06:58:53 Myocardia l infarctio n 58698033 Active 2013 Myocardial infarction ; snomeddesc ription: Myocardial infarction ; Report Immunity to Registry: Yes; Notes: 07/03/14 stent x 3; Not Available [facility] 4 06:58:53 Gallbladd er and bile duct calculi 575836604 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; 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; Report Immunity to Registry: Yes; Notes: u/s 2010; Not Available [facility] 4 06:58:53 Abdominal aortic aneurysm 824674800 Active 2013 Abdominal aortic aneurysm without mention of rupture; snomeddesc ription: Abdominal aortic aneurysm; Report Immunity to Registry: Yes; Abdominal aortic aneurysm; snomeddesc ription: Abdominal aortic aneurysm; Report Immunity to Registry: Yes; Not Available [facility] 4 06:58:53 Acute myocardia l infarctio n 15635386 Active 2013 Acute myocardial infarction , unspecifie d site; snomeddes ription: Myocardial infarction ; Report Immunity to Registry: Yes; Notes: 07/03/14 stent x 3; Not Available [facility] 4 06:58:54 Cerebral infarctio n 658028641 Active 2019 Cerebral infarction , unspecifie d; snomeddesc ription: Cerebrovas cular accident; Report Immunity to Registry: Yes; Notes: hx; Not Available [facility] 4 06:58:54 Problem Notes None recorded. Procedures Surgical History None recorded. Imaging Results Imaging Date Name Status LastModified by Organiz ation Details LastModified Time 06/20/2023 US, abdomen completed [email or web address] Information n ot available 08/26/2023 16:46:31 03/08/2024 imaging/diag nostic result completed [email or web address] Information not available 07/05/2024 10:01:27 02/13/2024 imaging/diag nostic result completed [email or web address] Information not available 07/05/2024 10:04:14 02/05/2025 US, abdomen completed [email or web address] Information n ot available 02/09/2025 12:47:09 Procedure Notes None recorded. Medical Equipment None [...] 19,400 unit/0.65 mL subcutane ous suspensio n 43124 Quantity : 1; Duration : 1; 0 [...] Not Available Not Available [employer] active Not Available Not Available Not Available Prevnar 20 (PF) 0.5 mL intramusc ular syringe - Quantity : 1; Duration : 1; 0 refill(s ) 03/04 completed Frequenc y: x1; Duration : 1; VACCINE_ IND: no; VACCINE_ NAME: Pneumoco ccal conjugat e PCV20, polysacc haride [id number] conjugat e, adjuvant , PF; SU_FULL_ NAME: [...] Updated DateTime 3 172.72 cm 22.1 kg/m2 46533.6 9 g 98 [degF] 98 % 98 % 68 /min 110 mm[Hg] 78 mm[Hg] Eunice OKEEFE MD [facility] 3 14:31:17 Date Recorded Body height Heart rate Respiratory rate Body temperature Body mass index (BMI) Body weight Oxygen saturation Oxygen saturation in Arterial blood by Pulse oximetry Systolic blood pressure Diastolic blood pressure Provider Name and Address Organization Details Last Updated DateTime 4 172.72 cm 56 /min 10 /min 98.5 [degF] 23.4 kg/m2 06787.2 2 g 98 % 98 % 118 mm[Hg] 58 mm[Hg] Daniela OKEEFE MD [facility] 4 12:30:04 Date Recorded Body height Heart rate Respiratory rate Body temperature Body mass index (BMI) Body weight Systolic blood pressure Diastolic blood pressure Provider Name and Address Organization Details Last Updated DateTime 5 172.72 cm 67 /min 10 /min 97.8 [degF] 24 kg/m2 41116.5 9 g 146 mm[Hg] 60 mm[Hg] Danielacuh Hydengo JENIFER OKEEFE MD [facility] 10:52:47 Social History Question Answer Notes LastModified by Organizat ion Details LastModified Time Tobacco Smoking Status Never Smoker JENIFER Rodriguez MD [facility] 08/23/2023 14:32:12 Are You Blind Or Do You Have Difficulty Seeing? No [email or web address] Information not available 08/23/2023 Are You Deaf Or Do You Have Serious Difficulty Hearing? No [email or web address] Information not available 08/23/2023 Which Of Your Hands Is Dominant? Right [email or web address] Information not available 08/23/2023 Do You Feel Stressed (tense, Restless, Nervous, Or Anxious, Or Unable To Sleep At Night)? [id number] [email or web address] Information not available 08/23/2023 Sex: Male Functional Status Question Answer Note LastModified by Organizat ion Details LastModified Time Do you have difficulty walking or climbing stairs? Yes stroke [email or web address] Information not available 08/23/2023 Do you have transportation difficulties? No [email or web address] Information not available 08/23/2023 Are you able to walk? YESASSIST pt walks with a dorene [email or web address] Information not available 08/23/2023 Do you have difficulty doing errands alone? No [email or web address] Information not available 08/23/2023 Are you able to care for yourself? Yes [email or web address] Information n ot available 08/23/2023 Do you have difficulty dressing or bathing? Yes pt has a person that helps with bathing and dressing [email or web address] Information not available 08/23/2023 Mental Status Question Answer Note LastModified by Organization D etails LastModified Time Do you have difficulty concentrating, remembering or making decisions? No [email or web address] Information no t available 08/23/2023 Family History Nothing Reported Notes:Family history unknown , Response Property: Yes; , No known relatives, Response Property: Yes; Medical History Condition Response Coronary Artery Disease Y Heart Disease Y Stroke Y Diverticulitis Y Immunizations Vaccine Type Date Status Note Provider Nam e and Address Organization Details Recorded Time Influenza, split virus, quadrivalent, preservative 2 completed Not Available [facility] 12/13/2023 06:54:23 Influenza, split virus, quadrivalent, preservative 1 completed Not Available [facility] 12/13/2023 06:54:24 Past Encounters Encounter ID Performer Location Encounter Start Date Encounter Closed Date Diagnosis/Indication Diagnosis SNOMED-CT Code Diagnosis ICD10 Code Diagnosis Note [id number] Marie Okeefe MD Main Office [address] [place] [phone] 08/23/2023 14:09:45 08/23/2023 14:48:23 Type B viral hepatitis 03631820 B19.10 HBV: Continue Entecavir 0.5 mg po [...] of care reviewed. Questions and concerns addressed [id number] Marie Okeefe MD Main Office [address] [place] [phone] 07/03/2024 12:11:28 07/03/2024 12:39:10 Type B viral hepatitis 22031394 B19.10 HBV: Continue Entecavir 0.5 mg po [...] of care reviewed. Questions and concerns addressed [id number] Marie Okeefe MD Main Office [address] [place] [address], [place] [address] 2024 10:37:00 2024 11:19:47 Type B viral hepatitis 55197801 B19.10 HBV: Continue Entecavir 0.5 mg po [...] ID Guarantor Name 08/23/2023 1 [place]: [employer] Phna Gipson [id number] Phan Gipson 08/23/2023 2 [place] 104 Phan Gipson [id number] Phan Gipson 07/03/2024 1 MEDICARE B-[place]: [facility] [employer] Phan Gipson [id number] Phan Gipson 07/03/2024 2 [place] [employer] Phan Gipson [id number] Phan Gipson 2024 1 [place] [employer] Phan Gipson [id number] Phan Gipson 2024 2 [place] [employer] 33D Phan Gipson [id number] Phan Gipson Notes Date Note Type Note [...] will get arexvy. Marie Okeefe MD [address] [place] [address], [phone], JENIFER OKEEFE MD [facility] 08/23/2023 16:59:39 4 text/html f/u HBV. CKDon [...] will get arexvy. Marie Okeefe MD [address] [place] [address], [phone], JENIFER OKEEFE MD [facility] 07/03/2024 12:46:44 5 text/html f/u HBV. CKDon [...] no n/v/d. no CP Marie Okeefe MD [address] [place] [address], [phone], JENIFER - MARIE OKEEFE MD [facility] 01/02/2025 22:53:47
--- OUTSIDE RECORDS SUMMARY | 2025-02-14 12:08 | XMS_ITS | Data Portability ---
Author Organization [facility], Main Office Address [address] [facility] [address] [place] [id number] Care Team Providers Care Hospice Social Worker Name Role Phone MARIE OKEEFE Infectious Disease DELMA BORRERO Lead Inspector [phone] RAI PEREIRA Channel Cementer Outsole Machine DAVID IVEY Food Expeditor ATIYA COHEN Vascular Surgeon [facility] END[facility] Endocrinolo gist JOSE ALFREDO GALLEGO Neurologist ENZO ROSE Neurologist SHEA PEREZ Burlap Man OUSMANE SEGURA Food Expeditor ROBERT REHMAN Mine Safety Manager JUAN CARLOS CABRERA Primary Care Provider BETSY LOWE Marketing Information Coordinator [facility] Vascular Surgeon Assessment No assessment recorded. Plan of Treatment Reminders Order Date Submit Date Provider Last Modified By Organization Details Last Modified Time Details Appointments [id number] 2024 11:15A M Juan Carlos Cabrera MD Not available Not available Not available Lab lipid panel, serum 2023 024 [facility], [address] [place] [address], [address], [address], 07/23/2024 18:06:10 CBC w/ auto diff 2023 [facility], [address], [address], [place], [place], [address], 07/21/2024 18:05:36 CMP, serum or plasma 2023 024 [facility], [address], [address], [place], [place], [address], 07/21/2024 18:05:37 TSH, ultra-sen sitive, serum 2023 [facility] (Centralized Electronic Ordering - All Locations), Patient Can Go To The Location Of Their Choice, [address] 07/21/2024 18:05:38 vitamin D, 25-hydrox y, total, serum 2023 [facility], [address], [address], [place], [place], [address], 07/21/2024 18:05:38 magnesium , serum or plasma 2023 024 [facility], [address], [address], [place], [place], [address], 07/21/2024 18:05:39 HbA1c (hemoglob in A1c), blood 2023 [facility], [address], [address], [place], [address], 01/08/2024 18:05:59 BMP, serum or plasma 2023 024 [facility], [address], [address], [place], [address], 12/25/2023 17:40:15 prealbumi n, serum 2023 [facility], [address], [address], [place], [address], 01/08/2024 18:06:00 Referral None recorded. Procedures None recorded. Surgeries None recorded. Imaging None recorded. Medication Orders metoprolo l succinate ER 100 mg tablet,ex tended release 24 hr 2024 025 [facility], [address] [facility], [place], [address], 12/06/2024 11:04:28 cetirizin e 10 mg tablet 2023 024 [facility], [address] [place], [address], 12/25/2023 17:39:28 Patient TargetsNo targets recorded. Patient Instructions Encounter Date Encounter Id Patient Instructions Last Modified By Organization Details Last Modified Time 12/25/2023 [id number] [facility], all current and discharge medications (OTC, herbal therapies, supplements) reviewed and reconciled with patient and or caregiver, including potential side effects, drug interactions, instructions, and the consequences of not taking medication. Reviewed potential barriers to medication adherence, such as side effects from medication or cost of medication. pmadden Not available 12/25/2023 17:39:46 01/16/2024 [id number] hepatitis B: care instructions ckokar Not available [...] medication. daniel Not available 01/16/2024 13:46:52 07/19/2024 [id number] advance care planning: care instructions ckokar Not [...] pressure ckokar Not available 07/19/2024 12:08:00 12/06/2024 [id number] hepatitis B: care instructions ckokar Not available [...] Go To The Location Of Their Choice, [address] 11/27/2023 20:29:50 11/27/19 24 11/27/2023 COMPL ETE [...] 70-99 above high normal Not Available [facility] ([facility]) [address] [place], [address], 01/08/2024 18:05:58 01/03/20 24 01/04/2024 BMP8+ EGFR BUN 22 mg/dL 8-27 Not Available [facility] ([facility]) [address] [place], [address], 01/08/2024 18:05:58 01/03/20 24 01/04/2024 BMP8+ EGFR creatinine 1.46 mg/dL 0.76-1 .27 above high normal Not Available [facility] ([facility]) [address] [facility], [place], [address], 01/08/2024 18:05:58 01/03/20 24 01/04/2024 BMP8+ EGFR eGFR 51 mL/mi n/1.7 3 >59 below low normal Not Available [facility] ([facility]) [address] [place], [address], 01/08/2024 18:05:58 01/03/20 24 01/04/2024 BMP8+ EGFR BUN/creatini ne ratio 15 10-24 Not Available [facility] ([facility]) [address] [place], [address], 01/08/2024 18:05:58 01/03/20 24 01/04/2024 BMP8+ EGFR sodium 140 mmol/ L 134-14 4 Not Available [facility] ([facility]) [address] [place], [address], 01/08/2024 18:05:58 01/03/20 24 01/04/2024 BMP8+ EGFR potassium 4.0 mmol/ L 3.5-5. 2 Not Available [facility] ([facility]) [address] [place], [address], 01/08/2024 18:05:58 01/03/20 24 01/04/2024 BMP8+ EGFR chloride 101 mmol/ L 96-106 Not Available [facility] ([facility]) [address] [facility] [place], [address], 01/08/2024 18:05:58 01/03/2001/04/2024 BMP8+ EGFR carbon dioxide, total 24 mmol/ L 20-29 Not Available [facility] ([facility]) [address] [place], [address], 01/08/2024 18:05:58 01/03/2001/04/2024 BMP8+ EGFR anion gap 15.0 mmol/ L 10.0-1 8.0 Not Available [facility] ([facility]) [address] [place], [address], 01/08/2024 18:05:58 01/03/2001/04/2024 BMP8+ EGFR calcium 9.2 mg/dL 8.6-10 .2 Not Available [facility] ([facility]) [address] [place], [address], 01/08/2024 18:05:58 01/03/2001/04/2024 HEMOG LOBIN A1C hemoglobin A1C 9.8 % 4.8-5. 6 above high normal Predi abete s: 5.7 - 6.4 Diabe george: >6.4 Glyce tiara contr ol for adult s with diabe george: <7.0 Not Available [facility] ([facility]) [address] [place], [address], 01/08/2024 18:05:59 01/03/2001/08/2024 PREAL BUMIN prealbumin 21 mg/dL 9-32 Not Available [facility] ([facility]) [address] [place], [address], 01/08/2024 18:06:00 07/19/20 24 07/20/2024 CBC WITH DIFFE RENTI AL/PL ATELE T WBC 7.8 x10e3 /uL 3.4-10 .8 normal Not Available [facility] ([facility]) [address] [facility], [place], [address], 07/21/2024 18:05:36 07/19/20 24 07/20/2024 CBC WITH DIFFE RENTI AL/PL ATELE T RBC 4.60 x10e6 /uL 4.14-5 .80 normal Not Available [facility] ([facility]) [address] [facility], [place], [address], 07/21/2024 18:05:36 07/19/20 24 07/20/2024 CBC WITH DIFFE RENTI AL/PL ATELE T hemoglobin 13.1 g/dL 13.0-1 7.7 normal Not Available [facility] ([facility]) [address] [facility], [place], [address], 07/21/2024 18:05:36 07/19/20 24 07/20/2024 CBC WITH DIFFE RENTI AL/PL ATELE T hematocrit 41.1 % 37.5-5 1.0 normal Not Available [facility] ([facility]) [address] [facility], [place], [address], 07/21/2024 18:05:36 07/19/20 24 07/20/2024 CBC WITH DIFFE RENTI AL/PL ATELE T MCV 89 fL 79-97 normal Not Available [facility] ([facility]) [address] [place], [address], 07/21/2024 18:05:36 07/19/20 24 07/20/2024 CBC WITH DIFFE RENTI AL/PL ATELE T MCH 28.5 pg 26.6-3 3.0 normal Not Available [facility] ([facility]) [address] [place], [address], 07/21/2024 18:05:36 07/19/20 24 07/20/2024 CBC WITH DIFFE RENTI AL/PL ATELE T MCHC 31.9 g/dL 31.5-3 5.7 normal Not Available [facility] ([facility]) [address] [facility], [place], [address], 07/21/2024 18:05:36 07/19/20 24 07/20/2024 CBC WITH DIFFE RENTI AL/PL ATELE T RDW 13.9 % 11.6-1 5.4 Not Available [facility] ([facility]) [address] [facility], [place], [address], 07/21/2024 18:05:36 07/19/20 24 07/20/2024 CBC WITH DIFFE RENTI AL/PL ATELE T platelets 263 x10e3 /uL 150-45 0 normal Not Available [facility] ([facility]) [address] [facility], [place], [address], 07/21/2024 18:05:36 07/19/20 24 07/20/2024 CBC WITH DIFFE RENTI AL/PL ATELE T neutrophils 71 % not estab. normal Not Available [facility] ([facility]) [address] [facility], [place], [address], 07/21/2024 18:05:36 07/19/20 24 07/20/2024 CBC WITH DIFFE RENTI AL/PL ATELE T lymphs 17 % not estab. normal Not Available [facility] ([facility]) [address] [facility], [place], [address], 07/21/2024 18:05:36 07/19/20 24 07/20/2024 CBC WITH DIFFE RENTI AL/PL ATELE T monocytes 9 % not estab. normal Not Available [facility] ([facility]) [address] [facility], [place], [address], 07/21/2024 18:05:36 07/19/20 24 07/20/2024 CBC WITH DIFFE RENTI AL/PL ATELE T eos 2 % not estab. normal Not Available [facility] ([facility]) [address] [place], [address], 07/21/2024 18:05:36 07/19/20 24 07/20/2024 CBC WITH DIFFE RENTI AL/PL ATELE T basos 1 % not estab. normal Not Available [facility] ([facility]) [address] [facility], [place], [address], 07/21/2024 18:05:36 07/19/20 24 07/20/2024 CBC WITH DIFFE RENTI AL/PL ATELE T immature cells DRAFTER REFRIGERATION Not Available [facility] ([facility]) [address] [place], [address], 07/21/2024 18:05:36 07/19/20 24 07/20/2024 CBC WITH DIFFE RENTI AL/PL ATELE T neutrophils (absolute) 5.6 x10e3 /uL 1.4-7. 0 normal Not Available [facility] ([facility]) [address] [place], [address], 07/21/2024 18:05:36 07/19/20 24 07/20/2024 CBC WITH DIFFE RENTI AL/PL ATELE T lymphs (absolute) 1.3 x10e3 /uL 0.7-3. 1 normal Not Available [facility] ([facility]) [address] [place], [address], 07/21/2024 18:05:36 07/19/20 24 07/20/2024 CBC WITH DIFFE RENTI AL/PL ATELE T monocytes(ab solute) 0.7 x10e3 /uL 0.1-0. 9 normal Not Available [facility] ([facility]) [address] [place], [address], 07/21/2024 18:05:36 07/19/20 24 07/20/2024 CBC WITH DIFFE RENTI AL/PL ATELE T eos (absolute) 0.2 x10e3 /uL 0.0-0. 4 normal Not Available [facility] ([facility]) [address] [facility], [place], [address], 07/21/2024 18:05:36 07/19/20 24 07/20/2024 CBC WITH DIFFE RENTI AL/PL ATELE T baso (absolute) 0.1 x10e3 /uL 0.0-0. 2 normal Not Available [facility] ([facility]) [address] [facility], [place], [address], 07/21/2024 18:05:36 07/19/20 24 07/20/2024 CBC WITH DIFFE RENTI AL/PL ATELE T immature granulocytes 0 % not estab. Not Available [facility] ([facility]) [address] [facility], [place], [address], 07/21/2024 18:05:36 07/19/20 24 07/20/2024 CBC WITH DIFFE RENTI AL/PL ATELE T immature grans (abs) 0.0 x10e3 /uL 0.0-0. 1 Not Available [facility] ([facility]) [address] [facility], [place], [address], 07/21/2024 18:05:36 07/19/20 24 07/20/2024 CBC WITH DIFFE RENTI AL/PL ATELE T NRBC DRAFTER REFRIGERATION Not Available [facility] ([facility]) [address] [facility], [place], [address], 07/21/2024 18:05:36 07/19/20 24 07/20/2024 CBC WITH DIFFE RENTI AL/PL ATELE T hematology comments: DRAFTER REFRIGERATION Not Available [facility] ([facility]) [address] [place], [address], 07/21/2024 18:05:36 07/19/20 24 07/20/2024 COMP. METAB OLIC PANEL (14) glucose 276 mg/dL 70-99 above high normal Not Available [facility] ([facility]) [address] [place], [address], 07/21/2024 18:05:37 07/19/20 24 07/20/2024 COMP. METAB OLIC PANEL (14) BUN 24 mg/dL 8-27 normal Not Available [facility] ([facility]) [address] [place], [address], 07/21/2024 18:05:37 07/19/20 24 07/20/2024 COMP. METAB OLIC PANEL (14) creatinine 1.88 mg/dL 0.76-1 .27 above high normal Not Available [facility] ([facility]) [address] [place], [address], 07/21/2024 18:05:37 07/19/20 24 07/20/2024 COMP. METAB OLIC PANEL (14) eGFR 37 mL/mi n/1.7 3 >59 below low normal Not Available [facility] ([facility]) [address] [place], [address], 07/21/2024 18:05:37 07/19/20 24 07/20/2024 COMP. METAB OLIC PANEL (14) BUN/creatini ne ratio 13 10-24 normal Not Available [facility] ([facility]) [address] [place], [address], 07/21/2024 18:05:37 07/19/20 24 07/20/2024 COMP. METAB OLIC PANEL (14) sodium 136 mmol/ L 134-14 4 normal Not Available [facility] ([facility]) [address] [place], [address], 07/21/2024 18:05:37 07/19/20 24 07/20/2024 COMP. METAB OLIC PANEL (14) potassium 4.9 mmol/ L 3.5-5. 2 normal Not Available [facility] ([facility]) [address] [place], [address], 07/21/2024 18:05:37 07/19/20 24 07/20/2024 COMP. METAB OLIC PANEL (14) chloride 97 mmol/ L 96-106 normal Not Available [facility] ([facility]) [address] [place], [address], 07/21/2024 18:05:37 07/19/20 24 07/20/2024 COMP. METAB OLIC PANEL (14) carbon dioxide, total 21 mmol/ L 20-29 normal Not Available [facility] ([facility]) [address] [place], [address], 07/21/2024 18:05:37 07/19/20 24 07/20/2024 COMP. METAB OLIC PANEL (14) calcium 9.2 mg/dL 8.6-10 .2 normal Not Available [facility] ([facility]) [address] [place], [address], 07/21/2024 18:05:37 07/19/20 24 07/20/2024 COMP. METAB OLIC PANEL (14) protein, total 7.2 g/dL 6.0-8. 5 normal Not Available [facility] ([facility]) [address] [place], [address], 07/21/2024 18:05:37 07/19/20 24 07/20/2024 COMP. METAB OLIC PANEL (14) albumin 4.3 g/dL 3.8-4. 8 normal Not Available [facility] ([facility]) [address] [place], [address], 07/21/2024 18:05:37 07/19/20 24 07/20/2024 COMP. METAB OLIC PANEL (14) globulin, total 2.9 g/dL 1.5-4. 5 Not Available [facility] ([facility]) [address] [place], [address], 07/21/2024 18:05:37 07/19/20 24 07/20/2024 COMP. METAB OLIC PANEL (14) bilirubin, total 0.3 mg/dL 0.0-1. 2 normal Not Available [facility] ([facility]) [address] [place], [address], 07/21/2024 18:05:37 07/19/20 24 07/20/2024 COMP. METAB OLIC PANEL (14) alkaline phosphatase 132 IU/L 44-121 above high normal Not Available [facility] ([facility]) [address] [place], [address], 07/21/2024 18:05:37 07/19/20 24 07/20/2024 COMP. METAB OLIC PANEL (14) AST (SGOT) 19 IU/L 0-40 normal Not Available [facility] ([facility]) [address] [place], [address], 07/21/2024 18:05:37 07/19/20 24 07/21/2024 COMP. METAB OLIC PANEL (14) ALT (SGPT) 16 IU/L 0-44 normal Not Available [facility] ([facility]) [address] [place], [address], 07/21/2024 18:05:37 07/19/20 24 07/20/2024 VITAM IN [...] um and D. Jarret beckwith [place]: [facility] . 2. Vasquez alejandro MF, Kevin reddy [place], Bisch off-F errar i BARTH, et al. Evalu ation , treat ment, and preve ntion of vitam in D defic iency : an Endoc rine Socie ty clini chivo pract ice guide line. JCEM. 2010; 96(7) :1911 -30. Not Available [facility] ([facility]) [address] [place], [address], 07/21/2024 18:05:38 07/19/20 24 07/20/2024 TSH RFX ON ABNOR MAL TO FREE T4 TSH 1.670 uIU/m L 0.450- 4.500 normal Not Available [facility] ([facility]) [address] [place], [address], 07/21/2024 18:05:38 07/19/20 24 07/20/2024 MAGNE SIUM magnesium 2.1 mg/dL 1.6-2. 3 normal Not Available [facility] ([facility]) [address] [place], [address], 07/21/2024 18:05:39 07/19/20 24 07/23/2024 LIPID PANEL cholesterol, total 118 mg/dL 100-19 9 normal Not Available [facility] ([facility]) [address] [place], [address], 07/23/2024 18:06:09 07/19/20 24 07/23/2024 LIPID PANEL triglyceride s 113 mg/dL 0-149 normal Not Available [facility] ([facility]) [address] [place], [address], 07/23/2024 18:06:09 07/19/20 24 07/23/2024 LIPID PANEL HDL cholesterol 31 mg/dL >39 below low normal Not Available [facility] ([facility]) [address] [facility], [place], [address], 07/23/2024 18:06:09 07/19/20 24 07/23/2024 LIPID PANEL VLDL cholesterol chivo 21 mg/dL 5-40 Not Available [facility] ([facility]) [address] [facility], [place], [address], 07/23/2024 18:06:09 07/19/20 24 07/23/2024 LIPID PANEL LDL chol calc ([facility]) 66 mg/dL 0-99 Not Available [facility] ([facility]) [address] [facility], [place], [address], 07/23/2024 18:06:09 07/19/20 24 07/23/2024 LIPID PANEL LDL calc comment: DRAFTER REFRIGERATION Not Available [facility] ([facility]) [address] [facility], [place], [address], 07/23/2024 18:06:09 07/19/20 24 07/20/2024 ROSMERY EN AUTHO RIZAT ION written authorizatio n Mathew Camejo en Autho rizat ion Recei demario. Autho rizat ion recei demario from [facility] IFNA CABRERA for Link Reque st on 07-20 Logge d by Dominick Patel Not Available [facility] ([facility]) [address] [facility], [place], [address], 07/23/2024 18:06:11 07/29/20 24 07/29/2024 LIPID PANEL cholesterol, total 95 mg/dL 100-19 9 below low normal Not Available [facility] ([facility]) [address] [place], [address], 07/30/2024 06:07:57 07/29/20 24 07/29/2024 LIPID PANEL triglyceride s 132 mg/dL 0-149 normal Not Available [facility] ([facility]) [address] [place], [address], 07/30/2024 06:07:57 07/29/20 24 07/29/2024 LIPID PANEL HDL cholesterol 26 mg/dL >39 below low normal Not Available [facility] ([facility]) [address] [facility], [place], [address], 07/30/2024 06:07:57 07/29/20 24 07/29/2024 LIPID PANEL VLDL cholesterol chivo 24 mg/dL 5-40 Not Available [facility] ([facility]) [address] [facility], [place], [address], 07/30/2024 06:07:57 07/29/20 24 07/29/2024 LIPID PANEL LDL chol calc ([facility]) 45 mg/dL 0-99 Not Available [facility] ([facility]) [address] [facility], [place], [address], 07/30/2024 06:07:57 07/29/2007/29/2024 LIPID PANEL LDL calc comment: DRAFTER REFRIGERATION Not Available [facility] ([facility]) [address] [facility], [place], [address], 07/30/2024 06:07:57 11/26/19 24 11/26/2023 XR, foot, 3 or more view No observ ation record ed. [address] (Medical Records) [address] [place] [address], [address], 11/27/2023 16:06:16 11/26/19 24 11/26/2023 CT, head + brain , w/o contr ast No observ ation record ed. [address] (Medical Records) [address] [place] [address], [address], 11/27/2023 16:06:58 11/26/19 24 11/26/2023 CT, cervi chivo spine , w/o contr ast No observ ation record ed. [address] (Medical Records) [address] [facility], [place], [address], 11/27/2023 16:07:44 01/04/20 24 01/04/2024 US, doppl er, arter ial No observ ation record ed. [address] [facility] [address] [place], [address], 01/05/2024 09:11:15 01/04/20 24 01/04/2024 ankle brach ial index , compl ete No observ ation record ed. [address] [facility] [address] [place], [address], 01/05/2024 09:12:14 05/16/20 24 05/16/2024 CT chest [...] are unchan ged (211). OTHER FINDIN GS: Manager Willow view findin gs, lines and tubes: None. [...] I agree with this report . WSN: [id number] Orderi ng Physic romy: Osvaldo Cabrera Dictavi ed By: Uyen kelly MD, Brianne Roberts ed Date/T tonny: 3:07 pm Review ed By: Satinder paniagua MD, Walter Verma Signed By: Satinder paniagua MD, Walter Verma Signed Date/T tonny: 3:12 pm Transc ribed By: TEJAS Transc ribed Date/T tonny: 2:49 pm Patien t Class: Outpat ient [facility] (Outpt Imaging) [address] [place], [address], 05/31/2024 08:51:20 05/16/20 24 05/16/2024 LDCT, chest , for lung cance r scree emi No observ ation record ed. [address] [place], [address], 05/22/2024 09:26:28 05/20/20 24 05/16/2024 LDCT, chest , for lung cance r scree emi No observ ation record ed. [address] - Health Information Management [address] [place], [address], 05/22/2024 09:26:17 02/06/20 25 02/05/2025 US, abdom en No observ ation record ed. [facility] (Medical Records) [address] [place], [address], 02/05/2025 10:39:47 Result Notes None recorded. Problems Name Problem SNOMED Code Status Onset Date Resolution Date Notes Provider Name and Address Organization Details Recorded Time Abdomina l aortic aneurysm 044250735 Completed 201305/06/2014 STORY: 2.9CM (OCT 2013); RECORDED 11/21/19 14 1:54PM BY ZULEIKA KAN MA, ANNOTATI ON/ADDJENIFER Taylor MA - [facility] 6 11:14:48 Chronic bronchit is 63802603 Completed 201205/06/2014 RECORDED 06/28/20 13 10:13AM BY RYDER LOU MD, ANNOTATI ON/ADDEN DUM JENIFER Cavanaugh, [facility] 6 11:14:48 Acute pharyngi tis 170825430 Completed 201105/06/2014 IMPRESSI ON: RAPID STREP NEGATIVE , EXAM C/W WITH STREP, WILL SEND CULTURE AND TREAT.; RECORDED 06/27/20 12 10:38AM BY ZULEIKA KAN MA, ANNOTMAGDA ON/ADDEN DUM JENIFER Cavanaugh, [facility] 6 11:14:48 Adult health examinat ion Completed 09/09/2014 JENIFER Cavanaugh, [facility] 6 11:14:48 Chronic type B viral hepatiti s 51190432 Active 2020 JENIFER [place], [facility] 2 10:14:18 Depressi ve disorder 22262498 Completed 201105/06/2014 RECORDED 06/27/20 12 10:38AM BY ZULEIKA KAN MA, ANNOTMAGDA ON/ADDEN DUM JENIFER Cavanaugh, [facility] 6 11:14:48 Type 1 diabetes mellitus 53675523 Completed 201205/06/2014 STORY: KORFF; RECORDED 06/28/20 13 9:34AM BY JONATHAN DUMONT MA, ANNOTATI ON/ADDEN DUM Juan Carlos Cabrera MD [address], [place], [address] , [facility] 4 11:59:19 Uncontro lled type 1 diabetes mellitus 969719187 Completed 202007/17/2024 Juan Carlos Cabrera MD [address], [place], [address] , [facility] 4 11:59:29 Disorder of skin 48307734 Completed 201105/06/2014 RECORDED 06/27/20 12 10:38AM BY ZULEIKA KAN MA, SAMUELATI ON/ADDEN DUM Juan Carlos Cabrera MD [address], [place], [address] , [facility] 4 11:57:35 Family history of Cardiova scular disease 002555529 Completed 201105/06/2014 STORY: FATHER; RECORDED 06/27/20 12 10:38AM BY ZULEIKA KAN MA, SAJAN ON/ADDEN DUM [facility] 6 11:14:48 Influenz a vaccine needed [id number] 06 Completed 201205/06/2014 RECORDED 06/28/20 13 9:37AM BY JONATHAN DUMONT MA, OFFICE VISIT JENIFER Cavanaugh [facility] 6 11:14:48 Genital herpes simplex 39872951 Completed 201105/06/2014 RECORDED 06/27/20 12 10:38AM BY ZULEIKA AKN MA, SAJAN ON/ADDEN DUM JENIFER Cavanaugh, [facility] 6 11:14:48 Condylom a acuminat um of the anogenit al region 073604464 Active 2020 JENIFER [place] [facility] 2 10:14:18 Glaucoma 39899994 Active 2020 JENIFER [place] [facility] 2 10:14:18 Pure hypercho lesterol emia 737779386 Completed 202007/17/2023 Juan Carlos Cabrera MD [address] [facility] [place] [place] [address], [place], [address] , [facility] 4 11:58:56 Jaw pain 218549223 Completed 201105/06/2014 RECORDED 06/27/20 12 10:38AM BY ZULEIKA KAN MA, ANNOTATI ON/ADDEN DUM JENIFER Cavanaugh, [facility] 6 11:14:48 Laborato ry procedur e performe d 917072628 Completed 201305/06/2014 RECORDED 11/21/19 14 1:54PM BY ZULEIKA KAN MA, ANNOTATI ON/ADDEN DUM JENIFER Cavanaugh, [facility] [facility] 6 11:14:48 Low back pain [id number] Completed 201205/06/2014 RECORDED 11/09/19 13 2:18PM BY ZULEIKA KAN MA, ANNOTMAGDA ON/ADDEN DUM JENIFER Cavanaugh, [facility] 6 11:14:48 Lyme disease 81410339 Completed 10/17/2017 Juan Carlos Cabrera MD [address], [place], [address] , [facility] 4 11:58:15 Postproc edural state finding [id number] Completed 09/09/2014 JENIFER Cavanaugh, [facility] 6 11:14:48 Screenin g for malignan t neoplasm of colon Completed 201105/06/2014 RECORDED 06/27/20 12 10:38AM BY ZULEIKA KAN MA, ANNOTMAGDA ON/ADDEN DUM JENIFER Cavanaugh, [facility] 6 11:14:48 Tobacco dependen ce syndrome 56919654 Completed 202007/17/2023 Juan Carlos Cabrera MD [address], [place], [address] , [facility] 4 11:59:36 Wheezing 86061735 Completed 201205/06/2014 RECORDED 03/01/20 13 10:00AM BY ZULEIKA KAN MA, SAJAN ON/ADDEN DUM JENIFER Cavanaugh, [facility] 6 11:14:48 Abdomina l aortic aneurysm 236719079 Completed 201305/29/2014 STORY: 2.9CM (OCT 2013); RECORDED 11/21/19 14 1:54PM BY ZULEIKA KAN MA, SAJAN ON/ADDEN DUM Jonathan JENIFER Gaming, [facility] 6 11:14:48 Chronic bronchit is 04157734 Completed 201205/29/2014 RECORDED 06/28/20 13 10:13AM BY RYDER LOU MD, SAJAN ON/ADDEN DUM JENIFER Cavanaugh, [facility] 6 11:14:48 Acute pharyngi tis 571708514 Completed 201105/29/2014 IMPRESSI ON: RAPID STREP NEGATIVE , EXAM C/W WITH STREP, WILL SEND CULTURE AND TREAT.; RECORDED 06/27/20 12 10:38AM BY ZULEIKA KAN MA, SAJAN ON/ADDEN DUM JENIFER Cavanaugh, [facility] 6 11:14:48 Depressi ve disorder 02540512 Completed 201105/29/2014 RECORDED 06/27/20 12 10:38AM BY ZULEIKA KAN MA, SAJAN ON/ADDEN DUM JENIFER Cavanaugh, [facility] 6 11:14:48 Type 1 diabetes mellitus 21843050 Completed 201205/29/2014 STORY: KORFF; RECORDED 06/28/20 13 9:34AM BY JONATHAN DUMONT MA, SAJAN ON/ADDEN DUM Juan Carlos Cabrera MD [address] [address], [place], [address] , [facility] 4 11:59:19 Disorder of skin 39116083 Completed 201105/29/2014 RECORDED 06/27/20 12 10:38AM BY ZULEIKA KAN MA, ANNOTATI ON/ADDEN DUM Juan Carlos Cabrera MD [address] [facility] [address], [place], [address] , [facility] 4 11:57:35 Family history of Cardiova scular disease 390898880 Completed 201105/29/2014 STORY: FATHER; RECORDED 06/27/20 12 10:38AM BY ZULEIKA KAN MA, SAJAN ON/ADDEN DUM JENIFER Cavanaugh, [facility] 6 11:14:48 Influenz a vaccine needed 95299307613 06 Completed 201205/29/2014 RECORDED 06/28/20 13 9:37AM BY JONATHAN DUMONT MA, OFFICE VISIT JENIFER Cavanaugh, [facility] 6 11:14:48 Genital herpes simplex 10965502 Completed 201105/29/2014 RECORDED 06/27/20 12 10:38AM BY ZULEIKA KAN MA, SAJAN ON/ADDEN DUM JENIFER Cavanaugh, [facility] 6 11:14:48 Jaw pain 643036815 Completed 201105/29/2014 RECORDED 06/27/20 12 10:38AM BY ZULEIKA KAN MA, ANNOTATI ON/ADDEN DUM JENIFER Cavanaugh, [facility] 6 11:14:48 Laborato ry procedur e performe d 183344551 Completed 201305/29/2014 RECORDED 11/21/19 14 1:54PM BY ZULEIKA KAN MA, SAJAN ON/ADDEN DUM JENIFER Cavanaugh, [facility] 6 11:14:48 Low back pain 503413578 Completed 201205/29/2014 RECORDED 11/09/19 13 2:18PM BY ZULEIKA KAN MA, SAJAN ON/ADDEN DUM Jonathan Kendra-JENIFER Cooley, [facility] 6 11:14:48 Screenin g for malignan t neoplasm of colon Completed 201105/29/2014 RECORDED 06/27/20 12 10:38AM BY ZULEIKA KAN MA, SAJAN ON/ADDEN DUM Jonathan JENIFER Gaming, [facility] 6 11:14:48 Wheezing 16527460 Completed 201205/29/2014 RECORDED 03/01/20 13 10:00AM BY ZULEIKA KAN MA, SAJAN ON/ADDEN DUM Jonathan JENIFER Gaming, [facility] 6 11:14:48 Abdomina l aortic aneurysm 841306166 Completed 201305/30/2014 STORY: 2.9CM (OCT 2013); RECORDED 11/21/19 14 1:54PM BY ZULEIKA KAN MA, SAJAN ON/ADDEN DUM Jonathan JENIFER Gaming, [facility] 6 11:14:48 Chronic bronchit is 49940433 Completed 201205/30/2014 RECORDED 06/28/20 13 10:13AM BY RYDER LOU MD, SAJAN ON/ADDEN DUM Jonathan JENIFER Gaming, [facility] 6 11:14:48 Acute pharyngi tis 090567263 Completed 201105/30/2014 IMPRESSI ON: RAPID STREP NEGATIVE , EXAM C/W WITH STREP, WILL SEND CULTURE AND TREAT.; RECORDED 06/27/20 12 10:38AM BY ZULEIKA KAN MA, SAJAN ON/ADDEN DUM Jonathan JENIFER Gaming, [facility] 6 11:14:48 Depressi ve disorder 16918679 Completed 201105/30/2014 RECORDED 06/27/20 12 10:38AM BY ZULEIKA KAN MA, SAJAN ON/ADDEN DUM JENIFER Cavanaugh, [facility] 6 11:14:48 Type 1 diabetes mellitus 87906718 Completed 201205/30/2014 STORY: KORFF; RECORDED 06/28/20 13 9:34AM BY JONATHAN DUMONT MA, SAJAN ON/ADDEN MARLYN Cabrera MD [address] [facility] [address], [place], [address] , [facility] 4 11:59:19 Disorder of skin 33879303 Completed 201105/30/2014 RECORDED 06/27/20 12 10:38AM BY ZULEIKA KAN MA, SAJAN ON/ADDEN MARLYN Cabrera MD [address] [facility] [address], [place], [address] , [facility] 4 11:57:35 Family history of Cardiova scular disease 865356853 Completed 201105/30/2014 STORY: FATHER; RECORDED 06/27/20 12 10:38AM BY ZULEIKA KAN MA, SAJAN ON/ADDEN DUM JENIFER Cavanaugh, [facility] 6 11:14:48 Influenz a vaccine needed 11810576804 06 Completed 201205/30/2014 RECORDED 06/28/20 13 9:37AM BY JONATHAN DUMONT MA, OFFICE VISIT JENIFER Cavanaugh, [facility] 6 11:14:48 Genital herpes simplex 44978350 Completed 201105/30/2014 RECORDED 06/27/20 12 10:38AM BY ZULEIKA KAN MA, SAJAN ON/ADDEN DUM Jonathan JENIFER Gaming, [facility] 6 11:14:48 Jaw pain 608619522 Completed 201105/30/2014 RECORDED 06/27/20 12 10:38AM BY ZULEIKA KAN MA, ANNOTATI ON/ADDEN DUM Jonathan KendraJENIFER Bobo, [facility] 6 11:14:48 Laborato ry procedur e performe d 961075666 Completed 201305/30/2014 RECORDED 11/21/19 14 1:54PM BY ZULEIKA KAN MA, ANNOTATI ON/ADDEN DUM Jonathan JENIFER Gaming, [facility] 6 11:14:48 Low back pain 343831183 Completed 201205/30/2014 RECORDED 11/09/19 13 2:18PM BY ZULEIKA KAN MA, ANNOTATI ON/ADDEN DUM Jonathan JENIFER Gaming, [facility] 6 11:14:48 Screenin g for malignan t neoplasm of colon Completed 201105/30/2014 RECORDED 06/27/20 12 10:38AM BY ZULEIKA KAN MA, SAJAN ON/ADDEN DUM Jonathan JENIFER Gaming, [facility] 6 11:14:48 Wheezing 59053655 Completed 201205/30/2014 RECORDED 03/01/20 13 10:00AM BY ZULEIKA KAN MA, ANNOTMAGDA ON/ADDEN DUM Jonathan JENIFER Gaming, [facility] 6 11:14:48 Insomnia 962875718 Active 2020 JENIFER Pennington, [facility] 2 10:14:18 Genital herpes simplex 38297492 Active 2020 JENIFER Pennington [facility] 2 10:14:18 Acute non-ST segment elevatio n myocardi al infarcti on 198714843 Completed 202001/15/2024 Juan Carlos Cabrera MD [address], [place], [address] , [facility] 4 11:56:26 Abdomina l aortic aneurysm 330786827 Active 2020 JENIFER Pennington, [facility] 2 10:14:18 Chest pain 12417410 Completed 04/12/2017 Juan Carlos Cabrera MD [address], [place], [address] , [facility] 4 11:56:39 Anal warts 329474483 Active 2020 JENIFER Pennington, [facility] 2 10:14:18 Lumbar radiculo efrain 586004726 Completed 202007/19/2024 Juan Carlos Cabrera MD [address], [place], [address] , [facility] 4 11:58:18 Open-ang le glaucoma 48031040 Active 2020 JENIFER Pennington, [facility] 2 10:14:18 History of malignan t neoplasm of skin Completed 201604/12/2017 Removal Reason: excision JENIFER Cavanaugh, [facility] 7 16:22:52 Basal cell carcinom a of nose 346206496 Completed 201406/23/2015 Removal Reason: excision Juan Carlos Cabrera MD [address], [place], [address] , [facility] 4 11:59:58 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 578424236 Completed 201707/17/2024 Juan Carlos Cabrera MD [address], [place], [address] , [facility] 5 11:01:15 Carotid artery stenosis 57435089 Active 2017 Lauryn Cordero [place] null, [facility] 2 10:14:18 Acute exacerba tion of chronic obstruct chandrakant pulmonar y disease 502249353 Completed 201707/17/2023 Juan Carlos Cabrera MD [address], [place], [address] , [facility] 4 11:56:03 Pituitar y mass 014432075 Completed 201807/17/2024 Juan Carlos Cabrera MD [address], [place], [address] , [facility] 5 15:25:07 Lyme disease 03825170 Completed 202007/17/2023 Juan Carlos Cabrera MD [address], [place], [address] , [facility] 4 11:58:15 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 54925466685 9100 Completed 202007/17/2023 Juan Carlos Cabrera MD [address], [place], [address] , [facility] 4 11:59:40 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 761352155 Active 2020 Lauryn Cordero [place] null, [facility] 2 10:14:18 Hypercho lesterol emia 74214075 Completed 07/17/2023 Juan Carlos Cabrera MD [address], [place], [address] , [facility] 3 13:11:42 Vitreous floaters 97907297 Completed 202007/19/2024 Juan Carlos Cabrera MD [address], [place], [address] , [facility] 4 11:59:32 Cataract 478459577 Active 2020 JENIFER Pennington, [facility] 2 10:14:18 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 231157300 Active 2017 Mirna driver, [facility] 1 11:28:54 Type 1 diabetes mellitus without complica tion 520668922 Completed 201712/23/2019 Juan Carlos Cabrera MD [address], [place], [address] , [facility] 4 11:59:25 Chronic obstruct chandrakant pulmonar y disease 53982778 Active 2019 JENIFER Pennington, [facility] 2 10:14:18 Serum creatini ne above referenc e range 884086417 Completed 201907/17/2023 Juan Carlos Cabrera MD [address], [place], [address] , [facility] 4 11:59:09 Exposure to SARS-CoV -2 Completed 07/06/2020 Removal Reason: Problem added by user zahra dumont from the COVID-19 watch flag JENIFER Cavanaugh, [facility] 0 11:14:48 Renal disorder due to type 1 diabetes mellitus 862221338 Completed 201907/17/2024 Juan Carlos Cabrera MD [address], [place], [address] , [facility] 4 11:59:49 Squamous cell carcinom a of protestant 650153839 Completed 202007/19/2024 Juan Carlos Cabrera MD [address], [place], [address] , [facility] 4 11:59:46 Hemipleg ia and/or hemipare sis followin g stroke 48327996805 107 Active 2020 JENIFER Pennington, [facility] 2 10:14:18 Dysfunct ion of eustachi an tube 26739053 Completed 202007/17/2023 Juan Carlos Cabrera MD [address], [place], [address] , [facility] 3 13:11:32 Chronic kidney disease stage 3 236860162 Completed 202009/22/2022 Juan Carlos Cabrera MD [address], [place], [address] , [facility] 4 11:56:43 Microalb uminuria 486870230 Active 2020 LABS 02/24/202 1 ACR 93.8 JENIFER Pennington, [facility] 2 10:18:20 Mixed anxiety and depressi ve disorder 263029052 Completed 202007/17/2023 Juan Carlos Cabrera MD [address], [place], [address] , [facility] 3 13:12:26 Hyperten sive renal disease 72696022 Active 2021 JENIFER Pennington, [facility] 2 10:18:20 COVID-19 594754877 Completed 202107/17/2023 Juan Carlos Cabrera MD [address], [place], [address] , [facility] 4 11:57:24 Pituitar y microade noma 582836284 Active 2021 followin g endo JENIFER Morejon, [facility] 4 13:08:14 Myocardi al infarcti on 26506825 Completed 202107/17/2024 Juan Carlos Cabrera MD [address], [place], [address] , [facility] 4 11:58:30 Type 1 diabetes mellitus 40593060 Completed 202009/12/2022 Juan Carlos Cabrera MD [address], [place], [address] , [facility] 4 11:59:19 Renal osteodys trophy 02647352 Completed 202003/08/2021 JENIFER Pennington, [facility] 2 09:26:22 Coronary arterios clerosis 22832416 Active 2021 JENIFER Pennington, [facility] 2 10:18:20 Vitamin D deficien cy 54361514 Active 2020 JENIFER Pennington, [facility] 2 10:14:18 Pituitar y adenoma 181545561 Completed 202107/17/2024 Juan Carlos Cabrera MD [address], [place], [address] , [facility] 5 15:25:13 Hyperlip idemia 92820989 Active 2020 JENIFER Pennington, [facility] 2 10:14:19 Cerebrov ascular accident 662820576 Completed 202107/17/2024 Juan Carlos Cabrera MD [address], [place], [address] , [facility] 4 12:23:30 Divertic ular disease 498165483 Completed 202107/19/2024 Juan Carlos Cabrera MD [address], [place], [address] , [facility] 4 12:00:13 Anxiety 17519445 Active 2021 JENIFER Pennington, [facility] 2 10:18:21 Renal osteodys trophy 86680058 Completed 202003/08/2021 JENIFER Morejon, [facility] 4 11:24:46 Type 1 diabetes mellitus without complica tion 143757734 Completed 201709/12/2022 Juan Carlos Cabrera MD [address], [place], [address] , [facility] 4 11:59:25 Cough 58856599 Completed 202107/17/2023 Juan Carlos Cabrera MD [address], [place], [address] , [facility] 4 11:57:21 Inguinal hernia 402858011 Active 2021 Right side Juan Carlos Cabrera MD [address], [place], [address] , [facility] 2 10:47:40 Chronic kidney disease stage 3B 868434274 Active 2021 JENIFER Morejon, [facility] 4 13:08:15 History of SARS-CoV -2 45338460429 6742782 Active 2022 JENIFER Morejon, [facility] 4 13:08:14 History of Lyme disease 943784599 Active 2018 JENIFER Morejon, [facility] 4 13:08:14 Major depressi on in [facility] n 48060720 Active 2022 JENIFER Morejon, [facility] 4 13:08:14 Ex-smoke r 8204617 Active 2022 JENIFER Morejon, [facility] 4 13:08:15 Weight loss 11581290 Completed 202307/17/2024 Juan Carlos Cabrera MD [address] [facility] [place] [place] [address], [place], [address] , [facility] 4 12:24:37 Recurren t falls 928480981 Completed 202307/19/2024 Juan Carlos Cabrera MD [address] [facility] [place] [place] [address], [place], [address] , [facility] 4 11:59:06 Spastici ty as sequela of stroke 28396268847 9102 Active 2020 JENIFER Morejon, [facility] 4 13:08:14 History of divertic ulitis 04461272592 9100 Active 2018 JENIFER Morejon, [facility] 4 13:08:14 Acquired melanocy tic nevus of retina 47317099374 9107 Active 2018 JENIFER Morejon, [facility] 4 13:08:14 Serum creatini ne above referenc e range 794100191 Completed 201901/15/2024 Juan Carlos Cabrera MD [address] [facility] [address], [place], [address] , [facility] 4 11:59:09 Acute exacerba tion of chronic obstruct chandrakant pulmonar y disease 209625362 Completed 201707/17/2024 Juan Carlos Cabrera MD [address] [facility] [address], [place], [address] , [facility] 4 11:56:03 Mixed anxiety and depressi ve disorder 683961665 Active 2020 JENIFER Morejon, [facility] 4 13:08:14 Lyme disease 27083385 Completed 202007/17/2024 Juan Carlos Cabrera MD [address] [address], [address] , [facility] 4 11:58:15 Pure hypercho lesterol emia 395156153 Completed 202007/17/2024 Juan Carlos Cabrera MD [address] 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 [place], [address] , [facility] 4 11:56:43 Type 1 diabetes mellitus 94638465 Completed 202007/17/2024 Juan Carlos Cabrera MD [address] [facility] [place], [address] , [facility] 4 11:59:19 Cough 31411740 Completed 202101/10/2024 Juan Carlos Cabrera MD [address] [facility] [place], [address] , [facility] 4 11:57:21 Essentia l hyperten jj 94949132 Active 2019 Smitha Valera [place] null, [facility] 4 13:08:15 Intermit tent claudica tion 90266962 Active 2018 JENIFER Morejon, [facility] 4 13:08:15 Bilatera l stenosis of carotid arteries 661233235 Active 2018 Smitha Valera MA null, [facility] 4 13:08:15 COVID-19 288771672 Completed 202101/10/2024 Juan Carlos Cabrera MD [address], [place], [address] , [facility] 4 11:57:24 Tobacco dependen ce syndrome 65402087 Completed 202007/17/2024 Juan Carlos Cabrera MD [address], [place], [address] , [facility] 4 11:59:36 Constipa tion 09564708 Completed 202307/19/2024 Jaun Carlos Cabrera MD [address], [place], [address] , [facility] 4 11:57:15 Pruritic disorder 158275711 Completed 202307/19/2024 Juan Carlos Cabrera MD [address], [place], [address] , [facility] 4 11:58:52 Fatigue 20983278 Completed 202307/17/2024 Juan Carlos Cabrera MD [address], [place], [address] , [facility] 4 12:23:21 History of non-ST segment elevatio n myocardi al infarcti on 253467539 Active 2023 Juan Carlos Cabrera MD [address], [place], [address] , [facility] 4 08:27:10 Atherosc lerotic renal artery stenosis 628773607 Active 2023 Juan Carlos Cabrera MD [address], [place], [address] , [facility] 4 08:28:24 Uncontro lled type 2 diabetes mellitus 493342733 Completed 202307/19/2024 Juan Carlos Cabrrea MD [address], [place], [address] , [facility] 4 11:59:22 Hypergly cemia due to type 2 diabetes mellitus 61476149761 9109 Active 2023 Juan Carlos Cabrera MD [address], [place], [address] , [facility] 4 12:22:44 Insulin treated type 2 diabetes mellitus 352023938 Active 2023 Juan Carlos Cabrera MD [address], [place], [address] , [facility] 4 12:31:00 Type 1 diabetes mellitus without complica tion 791720129 Completed 201707/19/2024 Juan Carlos Cabrera MD [address], [place], [address] , [facility] 4 11:59:25 Serum creatini ne above referenc e range 095523283 Completed 201907/19/2024 Juan Carlos Cabrera MD [address], [place], [address] , [facility] 4 11:59:09 Acute exacerba tion of chronic obstruct chandrakant pulmonar y disease 968359987 Completed 201707/19/2024 Juan Carlos Cabrera MD [address], [place], [address] , [facility] 4 11:56:03 Myocardi al infarcti on 08522880 Completed 202107/19/2024 Juan Carlos Cabrera MD [address], [place], [address] , [facility] 4 11:58:30 Cerebrov ascular accident 486116244 Active 2021 Smitha Valera [place] null, [facility] 4 11:24:46 Lyme disease 42582492 Completed 202007/19/2024 Juan Carlos Cabrera MD [address], [place], [address] , [facility] 4 11:58:15 Pituitar y mass 115500975 Completed 201812/05/2024 Juan Carlos Cabrera MD [address], [place], [address] , [facility] 5 15:25:07 Pituitar y adenoma 759699406 Completed 202112/05/2024 Juan Carlos Cabrera MD [address], [place], [address] , [facility] 5 15:25:13 Pure hypercho lesterol emia 821151844 Completed 202007/19/2024 Juan Carlos Cabrera MD [address], [place], [address] , [facility] 4 11:58:56 Chest pain 09354569 Completed 202307/19/2024 Juan Carlos Cabrera MD [address], [place], [address] , [facility] 4 11:56:39 Acute non-ST segment elevatio n myocardi al infarcti on 077274184 Completed 202007/19/2024 Juan Carlos Cabrera MD [address], [place], [address] , [facility] 4 11:56:26 Basal cell carcinom a of nose 939866566 Completed 201407/19/2024 Juan Carlos Cabrera MD [address], [place], [address] , [facility] 4 11:59:58 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 638455498 Completed 201707/19/2024 Juan Carlos Cabrera MD [address], [place], [address] , [facility] 5 11:01:15 Renal disorder due to type 1 diabetes mellitus 216794518 Completed 201907/19/2024 Juan Carlos Cabrera MD [address], [place], [address] , [facility] 4 11:59:49 Chronic kidney disease stage 3 326733516 Completed 202007/19/2024 Juan Carlos Cabrera MD [address], [place], [address] , [facility] 4 11:56:43 Uncontro lled type 1 diabetes mellitus 019811821 Completed 202007/19/2024 Juan Carlos Cabrera MD [address], [place], [address] , [facility] 4 11:59:29 Type 1 diabetes mellitus 29837698 Completed 202007/19/2024 Juan Carlos Cabrera MD [address], [address] , [facility] 4 11:59:19 Cough 35061519 Completed 202107/19/2024 Juan Carlos Cabrera MD [address] [address], [place], [address] , [facility] 4 11:57:20 Diarrhea 56030002 Active [address] Wells. Juan Carlos Cabrera MD [address] [address], [place], [address] , [facility] 4 11:58:13 Chronic kidney disease due to type 2 diabetes mellitus 87093366625 8 Completed 202301/25/2024 Smitha Valera [facility] 4 11:24:46 COVID-19 041472764 Completed 202107/19/2024 Juan Carlos Cabrera MD [address] [address], [place], [address] , [facility] 4 11:57:24 Tobacco dependen ce syndrome 84903629 Completed 202007/19/2024 Juan Carlos Cabrera MD [address] [address], [place], [address] , [facility] 4 11:59:36 Disorder of skin 08483321 Completed 201107/19/2024 Juan Carlos Cabrera MD [address] [address], [place], [address] , [facility] 4 11:57:35 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 720880481 Completed 202412/06/2024 Juan Carlos Cabrera MD [address] [address], [place], [address] , [facility] 5 11:01:15 David valdez 127133047 Active 2024 Juan Carlos Cabrera MD [address] [address], [place], [address] , [facility] 10:40:02 Notes:Some problems listed i n Documents: #[id number], #[id number], #[id number] could not be added to this patient's chart. Please review these documents and add these problems to the patient's chart manually as needed. Problem Notes None recorded. Procedures Surgical History Date Name Laterality Status Provider Name and Address Organization Details Recorded Time 01/15/20 25 Diabetic Foot Exam (Monofilament) completed Juan Carlos Cabrera MD [address], [address], [facility] 01/14/2025 11:59:37 07/19/20 24 Advanced Care Planning completed Smitha Valera [facility] 07/19/2024 11:23:18 07/17/20 23 Advanced Care Planning completed Juan Carlos Cabrera MD [address], [address], [facility] 07/17/2023 13:32:53 07/17/20 23 Diabetic Foot Exam (Monofilament) completed Juan Carlos Cabrera MD [address], [address], [facility] 07/17/2023 13:32:00 11/29/19 22 Diabetic Foot Exam (Monofilament) completed Juan Carlos Cabrera MD [address], [address], [facility] 11/29/2021 10:53:47 04/01/20 21 insertion of renal artery stent completed Mirna Guan [facility] 04/05/2021 15:25:49 10/23/19 21 angioplasty of renal artery completed Juan Carlos Cabrera MD [address], [address], [facility] 07/17/2023 13:23:12 12/23/19 20 Mini-Cog Test completed Jonathan pappas MA [facility] 12/23/2019 08:37:07 10/19/20 18 Mini-Cog Test completed Matilde Dowling MA [facility] 10/19/2018 09:36:52 04/16/20 18 Diabetic Foot Exam (Monofilament) completed Jonathan pappas [facility] 04/16/2018 14:05:15 10/17/20 17 Fall Risk Assessment completed Jonathan pappas [facility] 10/17/2017 08:36:49 10/17/20 17 Mini-Cog Test completed Ryder Lou MD [address] [facility] [address], [place], [address], [facility] 10/17/2017 09:01:30 10/23/19 17 Oral surgery procedure completed Jonathan pappas [facility] 04/13/2017 09:19:40 02/12/20 16 Colonoscopy completed Norma Hilario [facility] 04/18/2017 10:15:28 07/07/20 15 Cancer Surgery completed Jonathan pappas [facility] 04/16/2018 14:05:51 06/23/20 14 Angioplasty completed Jonathan pappas [facility] 04/16/2018 14:08:25 07/23/20 09 Carotid Endarterectomy completed Juan Carlos Cabrera MD [address] [facility] [address], [place], [address], [facility] 07/17/2023 13:22:38 10/23/18 98 Partial removal of colon completed Jonathan pappas [facility] 07/01/2014 09:23:44 Appendectomy completed Jonathan pappas [facility] 07/01/2014 09:23:44 Imaging Results Imaging Date Name Status LastModified by Organiz ation Details LastModified Time 11/26/2023 XR, foot, 3 or more view completed [address] (Medical Records) [address] [place], [address], 11/27/2023 16:06:16 11/26/2023 CT, head + brain, w/o contrast completed [address] (Medical Records) [address] [place], [address], 11/27/2023 16:06:58 11/26/2023 CT, cervical spine, w/o contrast completed [address] (Medical Records) [address] [place], [address], 11/27/2023 16:07:44 01/04/2024 US, doppler, arterial completed [address] [facility] [address] [place], [address], 01/05/2024 09:11:15 01/04/2024 ankle brachial index, complete completed [address] [facility] [address] [place], [address], 01/05/2024 09:12:14 05/16/2024 CT chest ldct program follow up completed [facility] (Outpt Imaging) [address] [place], [address], 05/31/2024 08:51:20 05/16/2024 LDCT, chest, for lung cancer screening completed [address] [place], [address], 05/22/2024 09:26:28 05/16/2024 LDCT, chest, for lung cancer screening completed [address] - Health Information Management [address] [place], [address], 05/22/2024 09:26:17 02/05/2025 US, abdomen completed [facility] (Medical Records) [address] [place], [address], 02/05/2025 10:39:47 Procedure Notes None recorded. Medical Equipment None Reported. Allergies Allergen ID Allergen Name Allergen Category Reaction Reaction Severity Criticality Documentation Date Start Date Code Code System Note Provider Name and Address Organization Details Recorded Time 96528 No known allergy (situatio n) Not available Not available Not available Not available 03/30/2021 92334 6003 SNOMED Mirna Gu[facility] 13:18:26 No known drug allergies Medications Name Sig Start Date Stop Date Status Note LastModified by Organization Details LastModified Time Prescript ion - Prior Authoriza tion Request 10/14 completed PA redone through [employer] Not Available Not Available Not Available amoxicill [...] completed Not Available Not Available Not Available [employer]-3 DAILY 06/28 completed RECORDED 06/28/20 13 9:39AM [...] Available Not Available FreeStyle David 14 Day [place] 12/22 completed Not Available Not Available Not Available FreeStyle David 14 Day Sensor kit 12/22 completed Not Available Not Available Not Available Fluzone High-Dose 2019-20 (PF) 180 mcg/0.5 mL intramusc ular syringe VACCINAT ION ADMINIST ERED BY PHARMACI ST 05/25 completed Not Available Not Available Not Available Ce[employer] Simplicit y 2 unit device active Not Available Not Available Not Available [employer] 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 active Not Available Not Available Not Available [...] Updated DateTime 4 171.45 cm 20.8 kg/m2 47676.9 7 g 61 /min 96 % 96 % 98.4 [degF] 120 mm[Hg] 54 mm[Hg] Vanessa Morataya MA [facility] 4 15:38:30 Date Recorded Body height Body mass index (BMI) Body weight Heart rate Oxygen saturation Oxygen saturation in Arterial blood by Pulse oximetry Body temperature Systolic blood pressure Diastolic blood pressure Provider Name and Address Organization Details Last Updated DateTime 4 171.45 cm 21.6 kg/m2 73174.9 3 g 63 /min 99 % 99 % 98.6 [degF] 124 mm[Hg] 58 mm[Hg] Megha Villarreal MA [facility] 4 14:26:51 Date Recorded Body height Body mass index (BMI) Body weight Oxygen saturation Oxygen saturation in Arterial blood by Pulse oximetry Heart rate Body temperature Systolic blood pressure Diastolic blood pressure Provider Name and Address Organization Details Last Updated DateTime 4 171.45 cm 23.5 kg/m2 07733.4 4 g 99 % 99 % 61 /min 98.2 [degF] 121 mm[Hg] 51 mm[Hg] Smitha Valera MA [facility] 4 11:24:00 Date Recorded Body height Body mass index (BMI) Body weight Heart rate Oxygen saturation Oxygen saturation in Arterial blood by Pulse oximetry Body temperature Systolic blood pressure Diastolic blood pressure Provider Name and Address Organization Details Last Updated DateTime 5 171.45 cm 23.9 kg/m2 30175.8 2 g 56 /min 98 % 98 % 98.1 [degF] 130 mm[Hg] 70 mm[Hg] Vanessa Morataya MA [facility] [place] 5 10:38:13 Date Recorded Body height Body mass index (BMI) Body weight Heart rate Oxygen saturation Oxygen saturation in Arterial blood by Pulse oximetry Body temperature Systolic blood pressure Diastolic blood pressure Provider Name and Address Organization Details Last Updated DateTime 5 171.45 cm 24.2 kg/m2 94980 g 59 /min 99 % 99 % 98.4 [degF] 133 mm[Hg] 58 mm[Hg] Jonathan greer MA [facility] [place] 5 11:30:08 Social History Question Answer Notes LastModified by Organizat ion Details LastModified Time Tobacco Smoking Status Former Smoker January 12 2021 JENIFER Morejon, [facility] [place] 03/15/2021 14:03:23 Do You Have An [...] available 08/12/2022 What Is Your Occupation? 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 1-5yearssince lastconrad Information not available 08/12/2022 Are There Any [...] Individual Who Tested Positive For COVID-19? No [email or web address] Information not available 07/19/2024 *AWV ONLY* Are [...] Gathering In The Last 10 Days? No [email or web address] Information not available 02/24/2021 What Was The [...] available 2021 10:10:27 Medical History Condition Response Gout N Other N Kidney Stones N Blood Diseases N Hyperthyroidism N Breast Cancer N Hypothyroidism N Lung Disease N Depression N COPD N Defects or Inherited Disease N Anesthesia Complications N Headaches/Migraines N Anxiety Disorder Y Varicose Veins N Obesity N Vision or Eye Problems N [...] Time zoster live 6 completed JENIFER Chavez [facility] 12/06/2024 10:31:26 zoster recombinant 9 JENIFER Miller [facility] 11/27/2023 14:04:02 Influenza, high-dose, trivalent, PF 9 JENIFER Miller [facility] 12/06/2024 10:31:26 zoster recombinant 0 completed Vanessarosa Morataya JENIFER driver, [facility] 12/06/2024 10:31:25 COVID-19, mRNA, LNP-S, PF, 30 mcg/0.3 mL dose 1 completed [facility] 10:31:25 COVID-19, mRNA, LNP-S, PF, 30 mcg/0.3 mL dose 1 completed [facility]essa [facility] 12/06/2024 10:31:25 influenza, seasonal, intradermal, preservative free 3 completed [facility]essa [facility] 12/06/2024 10:31:26 Influenza, split virus, trivalent, preservative 2 completed Vanessa Morataya JENIFER villa, [facility] 12/06/2024 10:31:26 COVID-19, mRNA, LNP-S, PF, 30 mcg/0.3 mL dose 1 completed [facility] 12/06/2024 10:31:25 Tdap 7 completed Vanessa [facility] 12/06/2024 10:31:25 Influenza, split virus, quadrivalent, preservative 1 completed [facility]essa [facility] 12/06/2024 10:31:25 Influenza, high-dose, trivalent, PF 8 completed [facility] 12/06/2024 10:31:26 Influenza, split virus, quadrivalent, PF 5 [facility] 12/[facility]/2024 10:31:26 Pneumococcal conjugate PCV 13 6 completed JENIFER Chavez, [facility] 12/06/2024 10:31:26 Tdap 8 completed JENIFER Chavez, [facility] 12/06/2024 10:31:25 Influenza, high-dose, quadrivalent, PF 0 completed JENIFER Chavez, [facility] 12/06/2024 10:31:25 Influenza, split virus, quadrivalent, preservative 2 completed JENIFER Chavez, [facility] 11/27/2023 14:04:02 Influenza, split virus, quadrivalent, PF 6 [facility]24 10:31:26 Influenza, split virus, trivalent, PF 4 completed Vanessabigg Morataya [facility] 12/06/2024 10:31:26 COVID-19, mRNA, LNP-S, bivalent, PF, 30 mcg/0.3 mL dose 2 completed Vanessarosa Morataya [facility] 12/06/2024 10:31:25 Influenza, high-dose, trivalent, PF 7 completed Vanessarosa Morataya [facility] 12/06/2024 10:31:26 pneumococcal polysaccharide PPV23 7 completed Vanessarosa Morataya [facility] 12/06/2024 10:31:25 Pneumococcal conjugate PCV20, polysaccharide [id number] conjugate, adjuvant, PF 3 completed [facility] 12/01/2023 13:07:42 RSV, bivalent, protein subunit RSVpreF, diluent reconstituted, 0.5 mL, PF 3 completed [facility] 12/01/2023 13:07:53 COVID-19, mRNA, LNP-S, PF, margie-sucrose, 30 mcg/0.3 mL 3 completed JENIFER Morejon, [facility] 12/01/2023 13:07:53 zoster live 9 completed JENIFER Chavez, [facility] 12/06/2024 10:31:26 RSV, bivalent, protein subunit RSVpreF, diluent reconstituted, 0.5 mL, PF 4 completed JENIFER Marquez, [facility] 01/14/2025 11:30:57 COVID-19, mRNA, LNP-S, PF, margie-sucrose, 30 mcg/0.3 mL 4 completed JENIFER Marquez, [facility] 01/14/2025 11:30:57 Influenza, split virus, trivalent, preservative 1 completed JENIFER Marquez, [facility] 05/17/2022 11:07:39 Influenza, split virus, trivalent, preservative 2 completed JENIFER Pennington, [facility] 08/12/2022 09:26:37 influenza, seasonal, intradermal, preservative free 3 completed JENIFER Pennington, [facility] 08/12/2022 09:26:36 Influenza, high-dose, quadrivalent, PF 3 completed JENIFER Irving, [facility] 07/17/2023 14:03:22 Influenza, high-dose, trivalent, PF 4 completed Juan Carlos Cabrera MD [address], [address], [facility] 07/19/2024 12:03:19 Past Encounters Encounter ID Performer Location Encounter Start Date Encounter Closed Date Diagnosis/Indication Diagnosis SNOMED-CT Code Diagnosis ICD10 Code Diagnosis Note [id number] [address] [place] [address] 06/18/2010 00:00:00 [id number] autoEComm erce [address] [facility],[address] [place] [address] 07/28/2010 00:00:00 [id number] autoEComm erce 36[address] [facility],[address] [place] [address] 02/05/2011 00:00:00 [id number] autoEComm erce 36[address] [facility],[address] [place] [address] 02/21/2011 00:00:00 [id number] autoEComm erce [address] [facility],[address] [place] [address] 06/20/2011 00:00:00 [id number] autoEComm erce 36[address] [facility],[address] [place] [address] 01/31/2012 00:00:00 [id number] autoEComm erce 36[address] [facility],[address] [place] [address] 06/27/2012 00:00:00 [id number] autoEComm erce 36[address] [facility],[address] [place] [address] 08/18/2012 00:00:00 [id number] autoEComm erce 36[address] [facility],[address] [place] [address] 03/01/2013 00:00:00 [id number] autoEComm erce 36[address] [facility],[address] [place] [address] 06/28/2013 00:00:00 [id number] Jonathan Gardner-Jenifer [place], [place] Main Office [address] [place] [address] 07/01/2014 09:00:11 07/01/2014 10:08:30 Adult health examination 094565880 Chronic ty pe B viral hepatitis 65777291 Tobacco de pendence syndrome 89262704 Uncontroll ed type 1 diabetes mellitus 146224998 Insomnia 142930798 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 Tobacco de pendence syndrome 90964065 Needs infl uenza immunization 047202928 [id number] Jonathan Obrien bernardJENIFER pappas Main Office [address] [facility] [address] [place] [address] 06/09/2015 10:54:05 06/09/2015 11:53:17 Chest pain 97250240 Anal warts 784259946 Screening for malignant neoplasm of lung 955100251 Acute non- ST segment elevation myocardial infarction 496600463 07/02/2014. Tobacco de pendence syndrome 48666920 [id number] Main Office [address] [address] [place] [address] 06/25/2015 08:42:38 06/25/2015 09:18:13 Lumbar radiculopathy 239739721 [id number] Ryder Lou MD Main Office [address] [address] [place] [address] 08/07/2015 15:28:41 08/07/2015 16:31:50 Adult health examination 144131346 Z00.00 Needs infl uenza immunization 496072105 Z23 Acute non- ST segment elevation myocardial infarction 317662752 I21.4 07/02/2014. Chronic ty pe B viral hepatitis 17741672 B18.1 Lumbar radiculopathy 128 094840 M54.16 Tobacco de pendence syndrome 02149117 F17.290 Uncontroll ed type 1 diabetes mellitus 626058880 E10.65 Abdominal aortic aneurysm 660302924 I71.4 History of carotid endarterectomy 488436511 Z98.89 [id number] Ryder Lou MD Main Office [address] [address] [place] [address] 02/08/2016 10:22:39 02/08/2016 11:16:43 Uncontrolled type 1 diabetes mellitus 980529056 E10.65 Tobacco de pendence syndrome 44974701 F17.290 Insomnia 822370876 G47.0 0 Chronic ty pe B viral hepatitis 98825932 B18.1 [id number] Ryder Lou MD Main Office [address] [address] [place] [address] 02/09/2016 14:00:38 02/09/2016 14:11:07 Administration of pneumococcal vaccine 50086625 Z23 [id number] Ryder Lou MD Main Office [address] [address] [place] [address] 10/14/2016 13:39:21 10/14/2016 14:54:25 Adult health examination 729112537 Z00.00 Needs infl uenza immunization 310079058 Z23 Uncontroll ed type 1 diabetes mellitus 936803931 E10.65 Tobacco de pendence syndrome 68047187 F17.290 Acute non- ST segment elevation myocardial infarction 300084230 I21.4 07/02/2014. Essential hypertension 52964175 I10 [id number] Ryder Lou MD Main Office [address] [address] [place] [address] 04/13/2017 09:04:50 04/13/2017 10:31:34 Uncontrolled type 1 diabetes mellitus 154779784 E10.65 Administra tion of pneumococcal vaccine 97962860 Z23 Administra tion of viral vaccine 20834926 Z23 Hypersomnia 20810482 G47 .10 Gastroesop hageal reflux disease 477311700 K21.9 Hip pain 74507253 M25.55 2 Chronic ty pe B viral hepatitis 10340557 B18.1 Followed by [place] [id number] James gray Main Office [address] [address] [place] [address] 06/20/2017 14:58:36 06/20/2017 16:57:31 Influenza vaccine needed 5289543857 106 Z23 [id number] Qing anderson Main Office [address] [address] [place] [address] 08/10/2017 15:10:23 08/10/2017 16:14:51 Diarrhea 32630668 R19.7 Cont hydration and rec probiotics as well as fiber / citrucel as a bulking agent. concern is for possible c.diff or food poisoning. tolerating nl diet / drinking plenty of water - very low suspicion for dehydratio n [id number] Ryder Lou MD Main Office [address] [address] [place] [address] 08/17/2017 09:10:32 08/17/2017 10:10:51 Hip pain 91262468 M25.552 Intermitte nt claudication due to atherosclerosis of [place] artery of limb 3858294913 107 I70.212 [id number] Ryder Lou MD Main Office [address] [address] [place] [address] 10/17/2017 08:22:56 10/17/2017 09:19:37 Adult health examination 507188127 Z00.00 Uncontroll ed type 1 diabetes mellitus 845385719 E10.65 Hyperlipidemia 40928796 E78.5 Insomnia 412524654 G47.0 0 Abdominal aortic aneurysm 102634198 I71.4 Stable size Glaucoma 28537030 H40.9 Followed by ophtho with stable pressures. Chronic ty pe B viral hepatitis 89751816 B18.1 Followed by ID Open-angle glaucoma 8449 4001 H40.10X0 Tobacco de pendence syndrome 44084068 F17.290 [id number] Ryder Lou MD Main Office [address] [address] [place] [address] 02/10/2018 09:19:44 02/10/2018 10:03:37 Acute exacerbation of chronic obstructive pulmonary disease 101999573 J44.1 Chronic cough 85316173 R 05 Tobacco de pendence syndrome 37771544 F17.290 [id number] Ryder Lou MD Main Office [address] [address] [place] [address] 04/16/2018 13:54:05 04/16/2018 15:22:13 Hepatitis C screening 974591853 Z11.59 Uncontroll ed type 1 diabetes mellitus 029530512 E10.65 Administra tion of viral vaccine 29572551 Z23 Hip pain 86525126 M25.55 2 Tobacco de pendence syndrome 91813070 F17.290 Pain of left calf 255185 1625 984447 M79.662 Chronic ty pe B viral hepatitis 76564236 B18.1 Followed by ID Abdominal aortic aneurysm 856045215 I71.4 Stable size [id number] Rusty Richard MD Main Office [address] [facility] [address] [place] [address] 06/28/2018 10:54:44 06/28/2018 12:07:49 Acute exacerbation of chronic obstructive pulmonary disease 351031594 J44.1 rev pfts and ldct rec doxy (and probiotic) , check cxr, rec eufemia prn, pred pulse as dir, and use proair as dir 25 minute office visit with greater than 50% of the visit face-to-fa ce with the patient and/or family providing counseling and/or coordinati on of care. Tobacco de pendence syndrome 13877209 F17.290 [id number] Rusty Richard MD Main Office [address] [facility] [address] [place] [address] 07/05/2018 13:22:04 07/05/2018 14:24:15 Acute exacerbation of chronic obstructive pulmonary disease 269892710 J44.1 COPD exacerbati on 50-75% better acutely, [...] coverage. Uncontroll ed type 1 diabetes mellitus 999776133 E10.65 Patient has endocrinol ogist, Dr. Taran Enriquez who he sees q 3 months to manage Type 1 DM Influenza vaccine needed 8318180759 106 Z23 Chronic ob structive pulmonary disease 32000295 J44.9 [id number] Ryder Lou MD Main Office [address] [facility] [address] [place] [address] 10/19/2018 09:17:37 10/19/2018 10:15:31 Hepatitis C screening 723452444 Z11.59 Adult heal th examination 461354872 Z00.00 Uncontroll ed type 1 diabetes mellitus 225698574 E10.65 Hyperlipidemia 95225483 E78.5 Insomnia 195358260 G47.0 0 Abdominal aortic aneurysm 950144042 I71.4 Stable size Glaucoma 33851191 H40.9 Followed by ophtho with stable pressures. 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 836773974 E10.51 Carotid and LE arterial disease Carotid ar jeff stenosis 26367336 I65.29 S/P CEA in 2008 [id number] Rydre oLu MD Main Office [address] [facility] [address] [place] [address] 12/13/2018 11:14:43 12/13/2018 21:46:55 [id number] Rian Dawkins PA-C Main Office [address] [address] [place] [address] 12/17/2018 14:15:59 12/17/2018 15:32:23 Dyspnea 679203035 R06.00 not currently but pt requested refill Diarrhea 45187183 R19.7 Cont hydration and rec brat diet if diarrhea persists for a few more days - then submit stool sample Hypomagnesemia 002456323 E83.42 if low, rec otc mag supp like mag oxide - advised pt could make diarrhea worse - meanwhile - rec bananas or avocado - foods naturally high in mag - zaina banana will help c constipati ng effect too Leukocytosis 324347308 D 72.[address] at ER - will recheck [id number] Rian Dawkins PA-C Main Office [address] [address] [place] [address] 01/07/2019 10:43:59 01/07/2019 11:55:29 Diarrhea 36699350 R19.7 seen by gi, found to be + for giardia - sig better on flagyl, cont as dir - now down to one formed bm / day encouraged pt to cont probiotic yogurt wt has slowly begun to climb cr stable, cont to stay hydrated *will fwd a copy of this note to GI* Leukocytosis 649792300 D 72.829 recheck cbc c diff next week c cc: GI [id number] Ryder Lou MD Main Office [address] [address] [place] [address] 02/01/2019 09:36:03 02/01/2019 10:52:34 Uncontrolled type 1 diabetes mellitus 207374238 E10.65 Carotid ar jeff stenosis 29492756 I65.29 S/P CEA in 2008 Pure hypercholesterolemia 742646120 E78.00 [id number] Qing anderson Main Office [address] [facility] [address] [place] [address] 05/17/2019 14:54:14 05/17/2019 15:41:59 Abdominal pain 11273735 R10.9 initial presentati on concerning for cholecysti tis, abdomen is benign now but hx of episode of RUQ pain in past as well, will get labs, US to look at GB pt to eat low fat, small meals, to ER with any flare of RUQ pain or fevers Constipation 52202048 K5 9.00 after one episode of diarrhea, pt to use miralax to get moving due to no BM for 4 days and feels bloated [id number] Rian Dawkins PA-C Main Office [address] [address] [place] [address] 10/14/2019 11:37:49 10/14/2019 13:02:44 [id number] Rian Dawkins PA-C Main Office [address] [place] [address] 10/15/2019 09:52:11 10/15/2019 11:07:45 History of cerebrovascular accident 879935894 Z86.73 last wk R CVA c L grabiel - LUE muscle strength has returned and paresthesi as are resolving - s/p recent admission, cont meds as dir for primary and secondary prevention , cont f/u c vascular - encouraged pt to call for sooner apptmt pt seen c [facility] 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 patches Carotid ar jeff stenosis 71720575 I65.29 cont f/u c vascular Coronary atherosclerosis 966310107 I25.10 s/p 3 stents - cont meds, f/u c card as dir Transition of care 12712 33607 105 Z75.8 Essential hypertension 33738864 I10 stable, cont meds as dir [id number] Lima Lewis MD Main Office [address] [facility] [address] [place] [address] 11/13/2019 14:59:57 11/13/2019 15:55:37 Essential hypertension 83823693 I10 Followed by cardiology who increased his meds. He will follow at home and call if systolic remains above 140. Cerebrovas cular accident 746659577 I63.9 He needs services to help improve and stabilize his post-strok e functionin g. Unintentio nal weight loss 202406521 R63.4 He has had a 9 lb weight loss since his stroke. He lives alone and has trouble with meal preparatio n. [id number] Ryder Lou MD Main Office [address] [facility] [address] [place] [address] 11/19/2019 11:13:55 11/21/2019 11:39:29 [id number] Ryder Lou MD Main Office [address] [facility] [address] [place] [address] 12/23/2019 08:12:05 12/23/2019 09:44:37 Adult health examination 689593292 Z00.00 Essential hypertension 27599780 I10 Stable on present medication s Uncontroll ed type 1 diabetes mellitus 571148582 E10.65 followed by endo Pure hypercholesterolemia 597966903 E78.00 Chronic ob structive pulmonary disease 92096657 J44.9 Stable on present meds Abdominal aortic aneurysm 272157141 I71.4 Stable size. followed by serial US Carotid ar jeff stenosis 76760862 I65.29 S/P CEA in 2008 Chronic ty pe B viral hepatitis 89560479 B18.1 Followed by ID Glaucoma 24146397 H40.9 Followed by ophtho with stable pressures. 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 [place] [address] [place] [address] 05/25/2020 14:38:15 05/26/2020 08:37:40 Diarrhea 40409581 R19.7 recom. COVID testing as pt. is high risk. If negative, needs stool testing. Replace electrolyt es as discussed. Test blood sugars 2-3 times daily. 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 was recom. to restart glucose testing. If blood sugares are 200-300 range, call endocrinol ogist to adjust meds. [id number] Ryder Lou MD Tele[facility] [address] [facility] [place] [address] [facility] [place] [address] 05/29/2020 13:07:47 05/29/2020 14:58:54 Essential hypertension 45372071 I10 Stable on present medication s Serum crea tinine above reference range 620147366 R79.89 [id number] Ryder Lou MD Main Office [address] [place] [address] 07/06/2020 11:10:58 07/06/2020 12:26:52 Uncontrolled type 1 diabetes mellitus 563930138 E10.65 followed by endo Essential hypertension 64961068 I10 Stable on present medication s Influenza vaccine needed 8158797492 106 Z23 Renal diso rder due to type 1 diabetes mellitus 188366687 E10.29 [id number] Liz Cedillo Main Office [address] [place] [address] 02/09/2021 14:02:21 02/09/2021 15:13:29 Transition of care 9807454190 105 Z75.8 I just received the dc summary today, will review and adjust therapy accordingl y. Carotid ar jeff stenosis 76134891 I65.29 s/p repeat CEA has f/u with vascular surgeon. Per previous record patient had a stent which is not typical of an endarterec collin and then the area thrombosed resulting in new endarterec collin stent thrombosis could be due to a [id number] deficiency and thus Plavix would not be the drug of choice hence he was started on Brilinta however it is not clear and thus I have asked the test case developer to follow-up with his vascular surgeon. In addition this could also be due to previous history of patient potentiall y not taking medication as prescribed ?. Hypercholesterolemia 136 50250 E78.00 Cw with current meds per order. Uncontroll ed type 1 diabetes mellitus 917978713 E10.65 He is type one and establishe d with endo thus I advised him to f/u with them.He is on Tresiba only. Vitamin D deficiency 347 20882 E55.9 Will cw with Vit D Generalize d anxiety disorder 77128259 F41.1 He was started on paroxetine , due to lower stroke risk however patient noted it was not working and wanted to go back on lexapro thus we switched back.parox etine is not recommende d for geriatric patient as well thus I agreed. Essential hypertension 82031771 I10 Patient was started on hydralazin e bp has been labile and fluctuates .Will not adjust till I can review his dc summary as to why this was switched.H e would be a better candidate for an GRETTA and tapered of hydralazin e since bp is labile.Adam witt keep amlodipine 10 mg. [id number] Liz Cedillo Main Office [address] [facility] 207 [facility] [place] [address] 02/09/2021 07:49:40 02/09/2021 16:39:52 [id number] Juan Carlos Cabrera MD Main Office [address] [facility] 207 [facility] [place] [address] 02/15/2021 10:21:31 02/15/2021 11:08:19 Carotid artery stenosis 06683959 I65.29 s/p repeat CEA advised f/u with vascular regarding Brilinta vs plavix Essential hypertension 69406377 I10 Coreg increased to 12.5 BIDAmlodip ine switched to nifedipine he will do in 30's so we can better titrate till BP at [place]. Advised to take 2 30 mg (60 mg) if need too can titrate to 60 and max of 120Advised to keep BP log and lifestyle modificati onsCare Billiard Table Assembler to follow up BP dailyBP elevated in office today no - asymptomat icSigns and symptoms of HTN emergency discussedP blaine to gradually decrease be 10-20% every 1-2hrs.Adam witt try to wean off hydralazin e if MALLY resolved. Acute inju ry of kidney 9865775930 4980117 N17.9 Is establishe d with nephrologi st - advised he can f/u (Dr. Slatter)BM P ordered and urine studies.Wi ll try to obtain blood result form rehab to compare. Renal diso rder due to type 1 diabetes mellitus 712032594 E10.21 Had an episode of hyperglyce arti at PT reading was 25.Will drop tresiba from 50 unit ti 45, advised dialy BG monitor and to reach out to endo as he is type 1 was on CGM, has endo apt coming up. [id number] Lima Lewis MD Tele[facility] [address] [facility] [place] [address] [place] [address] 02/18/2021 12:42:20 02/18/2021 15:21:59 Essential hypertension 30401489 I10 Decrease his nifedipine from 90 to 60 mg daily. He will also cut out his bedtime hydralazin e. He will follow his BP and will call if the systolic goes above 150. The goal will be to decrease the hydralazin e and to increase the nifedipine over time. Near syncope 347708975 R 55 This may have been secondary to orthostati c hypotensio n given the changes in his systolic pressure. And micturitio n syncope may have also been playing a role. This could have been brought on by the increase of his nifedipine from 60 to 90 mg daily. For now he will go back to 60 mg. [id number] Juan Carlos Cabrera MD Main Office [address] [place] [address] 02/24/2021 09:33:14 02/24/2021 10:23:48 Serum creatinine above reference range 971485093 R79.89 Will get BMP if still high will add urine studiesHe as reached out to his nephrologi st for an apt.He is aware to hydrate and avoid nephrotoxi c medication s. Essential hypertension 18974628 I10 Will keep Coreg to 12.5 BIDBp stable with nifedipine 90 thus will keep for now.Advise d to keep BP log and lifestyle modificati onsCare Billiard Table Assembler to follow up BP dailyPatie nt aware of Signs and symptoms of HTN emergencyz s Carotid ar jeff stenosis 50772756 I65.29 s/p repeat CEA advised f/u with vascular regarding Brilinta vs plavix He is taking plavix right now due to high cost of Brilinta awating vascular recs I tried to send Brilinta to his mail in pharmacy to see if it is cheaper as his co-pay is high. 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 404056415 E10.51 Carotid and LE arterial disease Chronic ob structive pulmonary disease 48073904 J44.9 Stable on present meds Hemiplegia and/or hemiparesis following stroke 5170426403 9107 I69.359 01/2021 .Right-hem ispheric CVA with left-sided hemiplegia (arm most affected) [id number] Juan Carlos Cabrera MD Main Office [address] [address] [place] [address] 04/21/2021 09:10:35 04/21/2021 18:38:29 [id number] [facility] [address] [address] [place] [address] 04/23/2021 13:16:26 04/23/2021 14:22:11 Essential hypertension 02502504 I10 Stable on present medication s Chronic ty pe B viral hepatitis 77061029 B18.1 Followed by ID Nausea 368126551 R11.0 [id number] Liz Cedillo Main Office [address] [address] [place] [address] 04/28/2021 10:26:31 04/28/2021 11:15:19 Transition of care 4617250898 105 Z75.8 Summary and labs reviewed, medication reconciled .He tells me his ID physician Dr. Marie Okeefe, changed his Hep B medication , will try to get name. Renal artery stenosis 30 4812961 I70.1 s/p stenting due to see nephrology 05/25/21, BP still elevated will generous with BP controll goal to be below 150's systolic thus will increase amlodipine to 5 mg. He was also advised he should follow with nephrology given recent stenting.H ad labs recently done at rehab will repeat in the next day or 2. 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 Patient aware of Signs and symptoms of HTN emergency Mixed anxi ety and depressive disorder 605606967 F41.8 Will increase lexapro to 20 mg and add psychology referral advised him to reach out to his previous therapist. Herpes zoster 1813928 B0 2.9 The rash maybe the start of shingles, will renally dose valtrex.Cr Cl 27 thus will dose to 1gm qD. [id number] Ryder Lou MD Tele[facility] [address] [facility] [place] [address] [place] [address] 05/07/2021 14:35:28 05/10/2021 09:12:26 Tinea corporis 39231543 B35.4 Contact dermatitis 88663 004 L25.9 [id number] Juan Carlos Cabrera MD Main Office [address] [facility] [address] [place] [address] 05/28/2021 10:53:13 05/28/2021 11:58:44 Essential hypertension 42275572 I10 BP well controlled will not make adjustment s. Mixed anxi ety and depressive disorder 582696607 F41.8 Improved with lexapro 20, will cw with current dose and have him get BMP to ensure electrolyt e not deranged. Pruritic rash 29115454 L 28.2 Improved advised emollient otc aveeno as he has xerosis. Nocturia 955474151 R35.1 As visit was ending he noted to me he as having nocturia.H e admitted he drinks fluid before bed thus I advised him to stop drinking 2 hrs before bedWill check PSA as well.If no improvemen t he as advised to schedule further apt for f/u [id number] Rian Dawkins PA-C Main Office [address] [facility] [address] [place] [address] 06/21/2021 14:48:45 06/21/2021 15:54:18 Acute otitis externa 49011943 H60.509 will rx c otic abx drops in future, consider vinegar based product to dry out wet ears p swimming/s howering / cottonball avoid qtips/fing ernails in ear re-eval in 1 wk, and re-check bp as well [id number] Liz Cedillo Main Office [address] [address] [place] [address] 07/01/2021 15:02:05 07/01/2021 15:44:49 Acute otitis externa 59477973 H60.502 better p otic abx drops, but pressure/f eeling of water in ear persists - see below Dysfunctio n of eustachian tube 86247431 H69.92 see above - trial c nasal saline spray, flonase, and prn warm washcloth to side of neck if no sig improvemen t, then consider ENT eval Essential hypertension 24736059 I10 borderline elevated - just seen by alexis earlier today - bp similar - he was advised by alexsi to cont meds as dir d/t fear of causing orthostasi s which he has had in the past [id number] Liz Cedillo Main Office [address] [address] [place] [address] 11/29/2021 10:00:22 11/29/2021 11:15:46 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 Hemiplegia and/or hemiparesis following stroke 5413609808 9107 I69.359 some residual weakness in Left upper extremity. Chronic ob structive pulmonary disease 85107936 J44.9 stable on inhaler,Barth s not had exacerbati on in > 1yr Chronic ki dney disease stage 3 481075568 N18.32 Follows nephrology .Has apt today Hypercholesterolemia 136 01062 E78.00 Cw with current meds per order.repe at lipids in january Fatigue 17087821 R53.83 Mixed anxi ety and depressive disorder 406129725 F41.8 Improved with lexapro 20, will cw with current dose and have him get BMP to ensure electrolyt e not deranged. Renal diso rder due to type 1 diabetes mellitus 698027474 E10.21 Most recent hba1c 8.8%HBA1C y9ottvyu done/ labs orderedACE : Held due to [...] Dental visit advised. Pain of left hand 499532 4848 64584 M79.642 had injury from breaking fall, no head neck trauma. Wrist and elbow intact, denies pain, mild bruise. Able to wiggle fingers with some residual weakness from stroke, sensation intact, radial pulses intact.Con servative therapy discussed, wrapped with gretta bandage, ice adivsed and elevation. Hypertensi ve renal disease 11262562 I12.9 Low sodium diet discussedC ounseled on medication adherenceC ounseled on diet/exerc iseAdvised to keep BP daily BP log and technique counseled. Red flags of HTN emergency discussed and when to go to ED.To follow nephrology today, advised consider increase hydralizen vs retrial low dose GRETTAChandler to discuss with nephro. [id number] Juan Carlos Cabrera MD Main Office [address] [place] [address] 01/17/2022 12:55:30 01/18/2022 10:17:24 COVID-19 275685118 U07.1 Advised tylenol q6hr PRNThroat Lozenges for sore throat, salt water gargle,Dottie quate hydration enforced, saline sprays, humidifier use enforced.m onoclonal antibody form faxed. Muscle weakness 94672861 M62.81 Noted unable to ambulate in AM, legs would give out.Signif icant hx of CVA, given this I advised Chandler to go to ED immediatly to r/o CVA. Anxiety state 530099180 F41.1 Advised limit use and only after going to ED to r/o for acute stroke.Ris k of sedation and respirator y depression discussed. 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 978765204 E10.51 cont f/u c endo - rev last note 7.11.13 - seen by subsurface augmentee operator last week, cont f/u c endo 9.22 seen by eye md recently - will attempt to get records Pure hypercholesterolemia 361294636 E78.00 cont statin, rec increase walking to raise hdl Pituitary microadenoma 285318797 D35.2 cont f/u c endo Hemiplegia and/or hemiparesis following stroke 5896352950 9107 I69.359 cont meds, cont f/u c neuro Anxiety 87397318 F41.9 stable, cont med as dir, no see counsellor Hypertensi ve renal disease 54629402 I12.9 stable, cont meds as dir Former hea vy tobacco smoker 7344211065 99071 Z87.891 cont ldct surveillan [id number] Juan Carlos Cabrera MD Main Office [address] [place] [address] 08/12/2022 09:22:16 08/12/2022 09:56:29 Pruritic disorder 670686182 L29.9 Likely xerosis related to DM, advised emollient use will check labsAdvise d eucerin emollient and aveeno oat soaksDM controlled discussed. Avoid caffeineAv oid ETOHHumidi fied airAvoid hot showersAvo id spiceshypo allergenic wash advisedCon t follow up with dermZyrtec for itch, sedation risk advised with antihistam ine. [id number] Liz Cedillo [facility] [address] [facility] [place] [place] [address] [place] [address] 08/24/2022 08:47:46 08/24/2022 10:34:01 Cough 50999173 R05.9 cough/ illness sicne 08/12 in diabetic patient with COPD. Will tx for possible secondary bacterial infection. zpak as directed x 5 days, hydration, rest, tylenol as needed, may use dayquil/ nyquil as needed but no tylenol if he takes those. Call or return for worsening or concerns, Exposure t o viral disease 2800579059 76194 Z20.828 exposed to rsv, he has been sick since 08/12. no fever, no SOB. Chronic ki dney disease stage 3 594025047 N18.32 Chronic ob structive pulmonary disease 77162205 J44.9 Uncontroll ed type 1 diabetes mellitus 698562371 E10.65 Hypertensi ve renal disease 84268390 I12.9 [id number] [facility] Main Office [address] [facility] [address] [place] [address] 09/13/2022 09:52:11 09/13/2022 11:00:07 Renal disorder due to type 1 diabetes mellitus 085495143 E10.21 Most recent hba1c 8%HBA1C k4nmsphd doneACE: Held due to renal function.A spirin [...] advised. Uncontroll ed type 1 diabetes mellitus 088856812 E10.65 He is type one and establishe d with endo thus I advised him to f/u with them.He is on Tresiba only. Essential hypertension 90007250 I10 Will increase metoprolol 75mg bid. Pruritic disorder 409710 002 L29.9 Notes emollient has help Likely xerosis related to DMCw with:DM controll.A void caffeineAv oid ETOHHumidi fied airAvoid hot showersAvo id spiceshypo allergenic wash advisedCon t follow up with dermZyrtec for itch, sedation risk advised with antihistam ine. Chronic ki dney disease stage 3B 481262174 N18.32 Follows nephrology . [id number] Juan Carlos Cabrera MD Main Office [address] [place], [place] [address] 07/17/2023 12:32:03 07/17/2023 13:45:15 Adult health examination 133166256 Z00.00 Patient was counseled on healthy diet, [...] reconciled . Advance directives discussed. 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 Chronic ki dney disease stage 3B 808813019 N18.32 Follows nephrology . Pituitary microadenoma 209039463 D35.2 Seeing endo. Nicotine dependence 5629 4008 Z87.891 LDCT Lung Cancer Screening Program Annual Order Advance di rective discussed with patient 631660071 Z71.89 healthcare proxy and molst provided [id number] Rian Dawkins PA-C Main Office [address] [facility] 207 [facility] [place] [address] 11/27/2023 13:56:45 11/27/2023 15:02:26 At increased risk for falls 505069268 Z91.81 Recurrent falls 21517873 2 R29.6 check labs, get fpi eval and neuro re-eval Vitamin D deficiency 347 41069 E55.9 Fatigue 31817730 R53.83 Weight loss 15685770 R63 .4 most likely d/t ozempic from endo - but stopped this med last month - cont f/u c endo, next in a few weeks meanwhile, rec glucerna & check prealbumin [id number] Rusty Richard MD Telehealt [facility] [address] [facility] [address] [place] [address] 12/01/2023 12:52:17 12/01/2023 14:33:40 COVID-19 323158719 U07.1 Based on duration of symptoms and [...] x 1 week) as indicated with Paxlovid. [id number] DE IBRAHIM Main Office [address] [facility] 207 [facility] [place] [address] 12/19/2023 13:30:59 12/22/2023 12:57:51 [id number] Liz Cedillo Main Office [address] [facility] [address] [place] [address] 12/25/2023 15:26:12 12/26/2023 08:38:44 Transition of care 7442038560 105 Z75.8 Uncontroll ed type 1 diabetes mellitus 351095593 E10.65 Blood sugars elevated on last BMP [...] c cc: endo Hypertensi ve renal disease 90916963 I12.9 stable, creatinine stable at 1.7, cont hydralazin e, metoprolol and amlodipine as directed. F/U with renal. Pt encouraged to continue monitor blood pressures at home Constipation 09680664 K5 9.00 Pt has had constipati on since in rehab and was given colace with some effect. Pt would like to try miralax. Pt will get miralax OTC, recommend 1/2-1 scoop qd - qod Pruritic disorder 725858 002 L29.9 Pt requested refill of cetirizine for his allergies and itching Recurrent falls 25416339 2 R29.6 Pt hospitaliz ed after recent fall. pending neuro eval Chronic ki dney disease stage 3 844345376 N18.32 creatinine stable at 1.7. Prealbumin low at 15.3. continue follow up with renal. Continue adequate hydration. 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 Spasticity as sequela of stroke 7233909947 64327 R25.2 Type 1 diego betes mellitus 65793452 E10.9 Cont. follow with sparkle wilson le ?type 2 dm Chronic ki dney disease stage 3B 370177207 N18.32 Follows nephrology . [id number] Juan Carlos Cabrera MD Main Office [address] [facility] 207 [facility] [place] [address] 07/19/2024 11:09:23 07/19/2024 12:20:16 Adult health examination 688656126 Z00.00 Patient was counseled on healthy diet, [...] reconciled . Advance directives discussed. Essential hypertension 56276243 I10 Stable on present medication s Hemiplegia and/or hemiparesis following stroke 9316180499 9107 I69.359 01/2021 .Right-hem ispheric CVA with left-sided hemiplegia (arm most affected) Chronic ty pe B viral hepatitis 49430612 B18.1 Followed by ID Chronic ob structive pulmonary disease 94700707 J44.9 Stable on present meds Fatigue 89038648 R53.83 Z00.00 Hyperlipidemia 83737979 E78.5 Z00.00 Vitamin D deficiency 347 42663 E55.9 Will cw with Vit D Chronic ki dney disease stage 3B 412533925 N18.32 Follows nephrology . Pituitary microadenoma 174531142 D35.2 Seeing endo. Advance di rective discussed with patient 164252708 Z71.89 healthcare proxy and molst provided Influenza vaccine needed 0282276360 106 Z23 65 YEARS AND OLDER Hyperglyce arti due to type 2 diabetes mellitus 1038205737 64832 E11.65 Follows [id number] and microalbum in and tx per endo. Insulin tr eated type 2 diabetes mellitus [id number] Z79.4 Coronary arteriosclerosis [id number] I25.[address] recommends DAPT for rest of life. [id number] Juan Carlos Cabrera MD Main Office [address] [place] [address] 12/06/2024 10:24:28 12/06/2024 11:10:28 Pituitary microadenoma [id number] D35.2 Seeing endo. Chronic ty pe B viral hepatitis 59262630 B18.1 Followed by ID Hemiplegia and/or hemiparesis following stroke [id number] I69.359 01/2021 .Right-hem ispheric CVA with left-sided hemiplegia (arm most affected) Chronic ob structive pulmonary disease 10458034 J44.9 Stable on present meds Chronic ki dney disease stage 3B [id number] N18.32 Follows nephrology . Coronary arteriosclerosis 02781407 I25.[address] recommends DAPT for rest of life. Essential hypertension 87396014 I10 Stable on present medication s Hyperglyce arti due to type 2 diabetes mellitus [id number] 66956 E11.65 Follows [id number] and microalbum in and tx per endo.Had c-peptide done suggesting he is type 2 dm and not [address]. Insulin tr eated type 2 diabetes mellitus [id number] Z79.4 Major depr ession in remission 22995254 F32.5 Stable on lexapro. [id number] Juan Carlos Cabrera MD Main Office [address] [facility] [address] [place] [address] 01/14/2025 10:56:08 01/14/2025 12:25:56 Hyperglycemia due to type 2 diabetes mellitus [id number] 79828 E11.65 Follows [id number] and microalbum in and tx per endo.Had c-peptide done suggesting he is type 2 dm and not 1, has CeQur on place. Hypertensi ve renal disease 65244748 I12.9 Low sodium diet discussedC ounseled on medication adherenceC ounseled on diet/exerc iseAdvised to keep BP daily BP log and technique counseled. Red flags of HTN emergency discussed and when to go to ED.To follow nephrology January, advised consider increase hydralazin e vs retrial low dose GRETTA, [place] to discuss with nephro. Mixed anxi ety and depressive disorder [id number] F41.8 Improved with lexapro 20 Health Concerns Section Related Observation LastModified by Organization Detai ls LastModified Time None Recorded Concern Status LastModified by Organization Details LastModified Time None Recorded Advance Directives Directive N: Payers Encounter Date Sequence Insurance Name Policy Number Policy Garcia Covered Member ID Garcia Member ID Guarantor Name 12/25/2023 2 [facility]: [employer]D Phan Gipson [id number] Phan Gipson 12/25/2023 1 [place] [employer] Phan Gipson [id number] Phan Gipson 01/16/2024 2 [facility] [employer] [place] [employer] Phan Gipson [id number] Phan Gipson 01/16/2024 1 [place] [facility] Phan Gipson [id number] Phan Stauffer Leonela 07/19/2024 2 [place] Phan Gipson [id number] Phan Stauffer Leonela 07/19/2024 1 [place] [facility] Phan Gipson [id number] Phan Stauffer Leonela 12/06/2024 2 [place] [place] [place]D Phan Gipson [id number] Phan Boltonier 12/06/2024 1 [place] [facility] Phan Gipson [id number] Phan Stauffer Leonela 01/14/2025 2 [place] [employer] [place] [place]D Phan Gipson [id number] Phan Stauffer Leonela 01/14/2025 1 [place] [facility] Phan Gipson [id number] Phan Stauffer Leonela Notes Date Note Type [...] .Pt was put on Ozempic by his harp regulator and he stopped it because he was having GI issues and lost some weight. He has not followed up with the harp regulator since stopping.Pt feels a little constipated and [...] noDischarge Summary available? yes Initially presented to [facility] ED in November following a fall, was [...] term rehab was recommended. Pt transferred to [facility] rehab. Pt there for PT and OT due to physical deconditioning with impaired functional mobility and ADL's. Continuing PT and OT for gait stability, balance concerns and strengthening.CKD STAGE III with hypertensive/diabetic hx renal artery stenosis -last BUN/creat on document from hospital 04/11.. Creat 1.75 > 1.48 on 12/12/23, trending [...] mg nightly, toprol XL 100 mg BID, [id number] mg daily- monitor BP twice daily-adjust as [...] daily, f/u with specialist, continue to monitorMEDS RECONCILED Liz driver [facility] 12/26/2023 11:29:11 4 text/html COPDReported bypatient.Severity:not limiting [...] from medicationNotes:BP stable with current regimen, following combination building inspector. Juan Carlos Cabrera MD [address], [address], [facility] 01/16/2024 14:55:43 4 text/html Medicare Annual Wellness [...] weight management. Juan Carlos Cabrera MD [address], [address], [facility] 07/19/2024 12:17:52 5 text/html Follow up for chronic health. Juan Carlos Cabrera MD [address], [address], [facility] 12/06/2024 12:29:39 5 text/html Coronary Artery Disease [...] from medication Juan Carlos Cabrera MD [address] [address], [place], [address], [facility] 12/06/2024 12:29:39 5 text/html Coronary Artery Disease [...] chronic health. Juan Carlos Cabrera MD [address] [facility] [place] [place] [address], [place], [address], [facility] 01/14/2025 12:24:30
[2025-02-14 13:01] LABS: Troponin-I High Sensitivity 42.2 ng/L (<3.5-35.0)
[2025-02-14 13:07] LABS: Reflex Lactate? Lactic Acid Added
[2025-02-14 13:41] LABS: ~Lactic Acid-LAB USE ONLY 1.5 mmol/L (0.5-2.0)
--- NOTE | 2025-02-14 13:46 | PM.IMHP ---
History of Present Illness Date of Service: 02/14/25 Chief Complaint: fever, chills, vomitting 74M PMH CVA with left hemiparesis, diabetes, hepatitis-B, coronary disease, CKD 3, AAA, hypertension presented with nausea vomiting chills cough for 1 day. Patient states that symptoms began when he awoke up on day of presentation. Was feeling chills, cough, shortness of breath, fevers vomited several times. In ED noted to have right-sided pneumonia on chest x-ray and fever. Review of Systems Review of Systems: Yes all other systems are reviewed and are negative [facility] Medical History Diabetes type 2 T1DM (type 1 diabetes mellitus) Wears dentures Chronic hepatitis B Paralysis of left upper extremity Ambulates with cane Glaucoma Diverticulosis Diabetes Bilateral cataracts Uncontrolled diabetes mellitus with hyperglycemia History of stent insertion of renal artery CAD (coronary artery disease) Carotid artery disease Pituitary adenoma Cerebral microvascular disease Multiple cerebral infarctions Left hemiparesis CKD (chronic kidney disease) stage 3, GFR 30-59 ml/min AAA (abdominal aortic aneurysm) Left renal artery stenosis Hypertensive urgency CKD (chronic kidney disease) stage 3, GFR 30-59 ml/min Peroneal neuropathy Hypertension Encounter for loop recorder check Stroke due to stenosis of right carotid artery Stroke Status post placement of implantable loop recorder CVA (cerebral vascular accident) (~2020) TIA (transient ischemic attack) (~2020) Vitamin D deficiency Pituitary macroadenoma HLD (hyperlipidemia) HTN (hypertension) Family History Father CVD (cardiovascular disease) AAA (abdominal aortic aneurysm) Mother No problems noted. Surgical History Cataract extraction status of left eye (10/07/24) History of partial colectomy (~1997) History of heart artery stent History of carotid endarterectomy Social History Household Members: Spouse and Family Housing: House Are you a primary cattle care worker to a significant other at home: No Do you presently have visiting nurse or other home services: Yes ([employer] 5 x week) Alcohol intake: never Comment: bed rest, unable to ambulate per md Patient Tobacco Use Status: Former Tobacco user Tobacco use type: Cigarette Years Smoked: 50+ Second Hand Smoke Exposure: No Advance Directives: Yes Advance Directives on File: Yes Advance Directives Date on File: 01/09/21 Do you have a plan to hurt others: No Plan service: No Current occupational status: unemployed and retired Meds Allergies Allergy/AdvReac Type Severity Reaction Status Date / Time No Known Allergies Allergy Verified 02/14/25 10:40 Active Medications: Current Medications Acetaminophen (Acetaminophen 325 Mg Tablet) 650 mg PO Q6H PRN PRN Reason: Pain, Mild 1-3,fever,headache Azithromycin (Azithromycin 500 Mg Tablet) 500 mg PO Q24H BILLY Calcium Carbonate (Calcium Carbonate 750 Mg Tab.Chew) 750 mg PO Q4H PRN PRN Reason: Heartburn Ceftriaxone Sodium (Ceftriaxone Sodium 1 Gm Vial) 1 gm IVPUSH Q24H BILLY Dextrose (Dextrose 50 % 25 Gm/50 Ml Syringe) 25 gm IVPUSH Q15M PRN; Protocol PRN Reason: per Hypoglycemia Standing Ord. Enoxaparin Sodium (Enoxaparin Sodium 40 Mg/0.4 Ml Syringe) 40 mg SUBCUT Q24H BILLY Glucose (Glucose Gel 15 Gm Gel..Gram.) 15 gm PO Q15M PRN; Protocol PRN Reason: per Hypoglycemia Standing Ord. Insulin Human Lispro (Insulin Lispro 100 Unit/Ml 3 Ml Vial) 0 unit SUBCUT QIDACHS [facility]; Protocol Magnesium Hydroxide (Milk Of Magnesia 30 Ml Oral.Susp) 30 ml PO DAILY PRN PRN Reason: Constipation Melatonin (Melatonin 3 Mg Tablet) 6 mg PO BEDTIME PRN PRN Reason: Insomnia Sodium Chloride (0.9 % Sodium Chloride Flush 3 Ml Syringe) 3 ml IVFLUSH QSHIFT [facility] Home Medications ?Medication ?Instructions ?Recorded ?Confirmed ?Last Taken ?Type aspirin 81 mg tablet,delayed 81 mg PO DAILY 09/10/20 12/06/24 10/06/24 History release cholecalciferol (vitamin D3) 50 50 mcg PO DAILY 09/10/20 12/06/24 03/21/21 08:00 History mcg (2,000 unit) capsule latanoprost 0.005 % eye drops 1 drp ophthalmic (eye) BEDTIME 09/10/20 12/06/24 03/20/21 History (Xalatan) albuterol sulfate 90 mcg/actuation 2 puff inhalation Q4H PRN Wheezing 02/19/21 12/06/24 03/08/21 History aerosol inhaler melatonin 5 mg tablet 5 mg PO BEDTIME 02/19/21 12/06/24 03/21/21 22:00 History entecavir 0.5 mg tablet 0.5 mg PO DAILY 05/18/21 12/06/24 Unknown History escitalopram oxalate 10 mg tablet 20 mg PO DAILY 05/18/21 12/06/24 Unknown History amlodipine 5 mg tablet 10 mg PO DAILY 01/04/22 12/06/24 Unknown History omeprazole 10 mg capsule,delayed 20 mg PO DAILY 03/01/23 12/06/24 Unknown History release cetirizine 10 mg tablet 10 mg PO DAILY 12/05/23 12/06/24 Unknown History ticagrelor 60 mg tablet 60 mg PO BID 12/05/23 12/06/24 Unknown History acetaminophen 325 mg tablet 650 mg PO Q4H PRN Pain 09/16/24 12/06/24 Unknown History metoprolol succinate 100 mg 100 mg PO ONCE 12/06/24 12/06/24 Unknown History tablet,extended release 24 hr ticagrelor 60 mg tablet (Brilinta) 60 mg PO BID 12/06/24 12/06/24 Unknown History Physical Exam Vital Signs and Narrative: Vital Signs: Last Vital Signs Temp 98.4 F 02/14/25 12:30 Pulse 71 02/14/25 12:30 Resp 5 L 02/14/25 12:30 BP 140/60 H 02/14/25 12:30 Pulse Ox 95 02/14/25 12:30 O2 Del Method Room Air 02/14/25 12:30 BMI result Body Mass Index 23.8 General: AO X 3, no acute distress Resp: CTA bilateral, no accessory muscles used CVS: S1,S2,RRR GI: soft, non tender, non distended Neuro: motor grossly intact, alert Psych: appropriate affect, appropriate insight Results Labs 02/14/25 11:02 02/14/25 11:02 Labs: Laboratory Results - last 24 hr 02/14/25 02/14/25 11:02 13:16 MCV 86.1 MCH 29.0 MCHC 33.6 RDW 14.3 Plt Count 234 MPV 8.6 L Immature Gran % (Auto) 0.4 Neut % (Auto) 85.9 H Lymph % (Auto) 3.9 L [place] % (Auto) 9.4 Eos % (Auto) 0.1 Baso % (Auto) 0.3 Lymph # (Auto) 0.8 L [place] # (Auto) 2.0 H Eos # (Auto) 0.0 Baso # (Auto) 0.1 Abs Immat Gran (auto) 0.09 H Absolute Neuts (auto) 18.0 H Absolute Nucleated RBC 0.000 Nucleated RBC % (auto) 0.0 Smear Tech's Comments VERIFIED Anion Gap 12 Estim Creat Clear Calc 41.3 Estimated GFR 45 Random Glucose 171 H Lactic Acid 2.1 H* Lactic Acid F/U @ 2Hr 1.5 Calcium 9.1 Magnesium 1.9 Total Bilirubin 0.6 Direct Bilirubin 0.3 AST 25 ALT 14 Alkaline Phosphatase 78 Total Protein 6.9 Albumin 3.9 Lipase 4 L Influenza Type A (PCR) NEGATIVE Influenza Type B (PCR) NEGATIVE RSV RNA Qual (PCR) NEGATIVE SARS-CoV-2 RNA (RT-PCR) NEGATIVE Imaging Radiologist's Impressions: Impressions Chest X-Ray 02/14/25 10:43 IMPRESSION: Right basilar pneumonia suspected. Electronically signed by: Liu Mcdermott MD 02/14/2025 12:39 PM EDT RP Shoulder X-Ray 02/14/25 10:43 IMPRESSION: No acute findings left shoulder. Electronically signed by: Liu Mcdermott MD 02/14/2025 12:40 PM EDT RP Abdomen/Pelvis CT 02/14/25 11:39 IMPRESSION: 1. Right lower lobe pneumonia. 2. Cholelithiasis. 3. 3.7 cm infrarenal abdominal aortic aneurysm. 4. Atrophic right kidney. Electronically signed by: Mikey Wray MD 02/14/2025 12:05 PM EDT RP Assessment and Plan (1) CAD (coronary artery disease): Status: Acute Plan 74M PMH CVA with left hemiparesis, diabetes, hepatitis-B, coronary disease, CKD 3, AAA, hypertension presented with nausea vomiting chills cough for 1 day Sepsis due to pneumonia Ceftriaxone to cover g positives and g negatives Azithromycin to cover atypicals Follow up cultures Diabetes Insulin CKD 3 Stable Hepatitis-B Continue antivirals History of CVA Continue antiplatelet and statin DVT prophylaxis with Lovenox DNR/DNI Due to sepsis expected require at least 2 midnights Quality Stroke Does the patient have a stroke diagnosis?: No VTE Prior VTE?: No VTE Risk Level:: Medical - moderate - high VTE Device Contraindication: Treatment Not Indicated VTE Drug Contraindication: N/A - Med Ordered
[2025-02-14] MEDS: Azithromycin 500 MG TABLET PO (14:16)
[2025-02-14 14:17] LABS: Troponin-I High Sensitivity 53.8 ng/L (<3.5-35.0)
--- NOTE | 2025-02-14 15:41 | PHA.MEDREC ---
Addendum entered by Karlie Jacinto RP 02/14/25 15:48: Reviewed by [facility] Original Note: Pharmacy Consult ? Medication Reconciliation Pharmacy has completed the medication reconciliation. Spoke with patient and he was able to confirm his medications. Patient confirmed his Novolog and states he injects 18 units three times a day into his patient own pump. He confirmed he is injecting 40 units of Tresiba daily. Patient stated he is not taking Latanoprost eye drops anymore. Patient is taking Ceterizine 10mg tabs as needed.
[2025-02-14 16:55] LABS: Glucose, Whole Blood 201 mg/dL (60-115)
[2025-02-14] MEDS: Insulin Lispro 100 UNIT/ML 3 ML VIAL SUBCUT ×2 (17:00→21:07)
[2025-02-14] MEDS: Metoprolol Succinate ER 100 MG TAB.ER.24H PO (17:00)
[2025-02-14] MEDS: Insulin Glargine,Hum.rec.anlog 100 UNIT/ML 10 ML VIAL 14 UNIT SUBCUT (17:01)
[2025-02-14] MEDS: 0.9 % Sodium Chloride Flush 3 ML SYRINGE IVFLUSH ×2 (17:07→20:30)
[2025-02-14 18:44] LABS: Appearance Urine Clear; Color Urine Yellow; Glucose Urine UA 500 mg/dL (Negative); Leukocyte Esterase Urine Moderate (2+) (Negative); Nitrite Urine Negative (Negative); PH 6.5 (5.0-9.0); Specific Gravity - Urine 1.015 (1.005-1.025); UMIC TRIGGER UACC YES; Urine Blood Trace (Negative); Urine Ketones Negative (Negative); Urine Protein 30 (1+) mg/dL (Neg-Trace)
[2025-02-14 18:49] LABS: Bacteria Urine None Seen (None Seen); Hyaline Casts Urine 0-2 /LPF (0-2); RBC Urine 0-2 /HPF (0-2); Squamous Epithelial Cell Urine 0-2 /HPF (0-2); UACC Culture Trigger YES; WBC Urine 21-50 /HPF (0-5)
[2025-02-14] MEDS: hydrALAZINE HCl 50 MG TABLET PO (20:29)
[2025-02-14] MEDS: Atorvastatin Calcium 80 MG TABLET PO (20:29)
[2025-02-14] MEDS: TICAGRELOR 60 MG 1 EACH PO (20:33)
[2025-02-14 21:01] LABS: Glucose, Whole Blood 161 mg/dL (60-115)
[2025-02-14] MEDS: Melatonin 3 MG TABLET 6 MG PO (21:42)
[2025-02-15 03:25] VITALS: BP 116/57; PULSE 62; RESP 17; TEMP 36.4; O2SAT 95
[2025-02-15] MEDS: Omeprazole 20 MG CAPSULE.DR PO (05:39)
[2025-02-15 06:27] LABS: Hematocrit 33.6 % (42.0-52.0); Hemoglobin 10.9 g/dl (14.0-18.0); Mean Corpuscular HGB Conc 32.4 g/dl (31.0-36.0); Mean Corpuscular Hemoglobin 28.2 pg (27.0-33.0); Mean Platelet Volume 8.8 fL (9.4-12.4); Platelet Count 207 X10*3/uL (160-400); Red Blood Count 3.86 X10*6/uL (4.60-5.80); Red Cell Distribution Width 14.3 % (11.0-16.0); White Blood Count 14.9 X10*3/uL (4.8-10.8)
[2025-02-15 06:42] LABS: Anion Gap 11 (12-20); Blood Urea Nitrogen 21 mg/dL (9-16); Calcium 8.7 mg/dL (8.4-10.2); Carbon Dioxide 22 mmol/L (22-29); Chloride 110 mmol/L (96-108); Creatinine Clr Calc Pharmacy 44.5; Estimated Glomerular Filt Rate 48; Glucose Random 87 mg/dL (60-115); Magnesium 2.1 mg/dL (1.6-2.6); Potassium 3.5 mmol/L (3.3-5.1); Sodium 139 mmol/L (135-145)
[2025-02-15 07:25] VITALS: BP 138/65; PULSE 62; RESP 18; TEMP 36.8; O2SAT 96
[2025-02-15 07:34] LABS: Glucose, Whole Blood 80 mg/dL (60-115)
[2025-02-15] MEDS: Escitalopram Oxalate 20 MG TABLET PO (08:23)
[2025-02-15] MEDS: Metoprolol Succinate ER 100 MG TAB.ER.24H PO (08:23)
[2025-02-15] MEDS: Cholecalciferol (Vitamin D3) 25 MCG TABLET 50 MCG PO (08:23)
[2025-02-15] MEDS: Ezetimibe 10 MG TABLET PO (08:23)
[2025-02-15] MEDS: Aspirin Enteric Coated 81 MG TABLET.DR PO (08:23)
[2025-02-15] MEDS: TICAGRELOR 60 MG 1 EACH PO (08:24)
[2025-02-15] MEDS: ENTECAVIR 0.5 MG 1 EACH PO (08:24)
[2025-02-15] MEDS: 0.9 % Sodium Chloride Flush 3 ML SYRINGE IVFLUSH (08:29)
--- NOTE | 2025-02-15 10:05 | P.DS_ITS ---
DS: Providers Provider Date of Service: 02/15/25 Date of admission: 02/14/25 13:34 Date of discharge: 02/15/25 Primary care physician: Afia Cabrera MD DS: Diagnosis Discharge Diagnosis (1) CAD (coronary artery disease): Status: Acute DS: Summary Hospital Course Hospital Course: from initial hpi: 74M PMH CVA with left hemiparesis, diabetes, hepatitis-B, coronary disease, CKD 3, AAA, hypertension presented with nausea vomiting chills cough for 1 day. Patient states that symptoms began when he awoke up on day of presentation. Was feeling chills, cough, shortness of breath, fevers vomited several times. In ED noted to have right-sided pneumonia on chest x-ray and fever. hospital course: Patient was admitted for sepsis due to pneumonia. He was treated with ceftriaxone azithromycin. Symptoms significantly improved faster than expected. Patient feeling well enough to go home and will be discharged on 5 more days of Ceftin and azithromycin. He was not interested in physical therapy evaluation at this time. For diabetes was continued on insulin. For CKD 3 remained stable. For hepatitis-B continued on antivirals. For history of CVA continued on antiplatelet and statin. Time Attestation Discharge Coordination Time (in mins): 33 Quality: Safe Use of Opioids Does Pt have an Active Cancer Diagnosis on the Problem List?: No Quality: Stroke Does the patient have a stroke diagnosis?: No Physical Exam 2 Vital Signs: Vital Signs: Last Vital Signs Temp 98.2 F 02/15/25 07:25 Pulse 62 02/15/25 07:25 Resp 18 02/15/25 07:25 BP 138/65 02/15/25 07:25 Pulse Ox 96 02/15/25 07:25 O2 Del Method Room Air 02/15/25 07:25 BMI result Body Mass Index 23.8 General: AO X 3, no acute distress Resp: CTA bilateral, no accessory muscles used CVS: S1,S2,RRR GI: soft, non tender, non distended Neuro: motor grossly intact, alert Psych: appropriate affect, appropriate insight DS: Data Data Completed and Pending Completed studies during hospitalization [Text1]: Procedures Dilation of Left Renal Artery with Intraluminal Device, Percutaneous Approach (03/22/21) Labs on day of discharge: Laboratory Results - last 24 hr 02/14/25 02/14/25 02/14/25 11:02 13:16 13:51 WBC 20.9 H RBC 3.90 L Hgb 11.5 L Hct 34.2 L MCV 86.1 MCH 29.0 MCHC 33.6 RDW 14.3 Plt Count 234 MPV 8.6 L Immature Gran % (Auto) 0.4 Neut % (Auto) 85.9 H Lymph % (Auto) 3.9 L [place] % (Auto) 9.4 Eos % (Auto) 0.1 Baso % (Auto) 0.3 Lymph # (Auto) 0.8 L [place] # (Auto) 2.0 H Eos # (Auto) 0.0 Baso # (Auto) 0.1 Abs Immat Gran (auto) 0.09 H Absolute Neuts (auto) 18.0 H Absolute Nucleated RBC 0.000 Nucleated RBC % (auto) 0.0 Smear Tech's Comments VERIFIED Sodium 139 Potassium 4.1 Chloride 107 Carbon Dioxide 24 Anion Gap 12 BUN 21 H Creatinine 1.54 H Estim Creat Clear Calc 41.3 Estimated GFR 45 POC Glucose Random Glucose 171 H Lactic Acid 2.1 H* Lactic Acid F/U @ 2Hr 1.5 Calcium 9.1 Magnesium 1.9 Total Bilirubin 0.6 Direct Bilirubin 0.3 AST 25 ALT 14 Alkaline Phosphatase 78 Troponin I High Sens 42.2 H 53.8 H Total Protein 6.9 Albumin 3.9 Lipase 4 L Urine Color Urine Appearance Urine pH Ur Specific [place] Urine Protein Urine Glucose (UA) Urine Ketones Urine Blood Urine Nitrite Ur Leukocyte Esterase Urine RBC Urine WBC Ur Squamous Epith Cells Urine Bacteria Hyaline Casts Influenza Type A (PCR) NEGATIVE Influenza Type B (PCR) NEGATIVE RSV RNA Qual (PCR) NEGATIVE SARS-CoV-2 RNA (RT-PCR) NEGATIVE 02/14/25 02/14/25 02/14/25 16:51 18:33 20:58 WBC RBC Hgb Hct MCV MCH MCHC RDW Plt Count MPV Immature Gran % (Auto) Neut % (Auto) Lymph % (Auto) [place] % (Auto) Eos % (Auto) Baso % (Auto) Lymph # (Auto) [place] # (Auto) Eos # (Auto) Baso # (Auto) Abs Immat Gran (auto) Absolute Neuts (auto) Absolute Nucleated RBC Nucleated RBC % (auto) Smear Tech's Comments Sodium Potassium Chloride Carbon Dioxide Anion Gap BUN Creatinine Estim Creat Clear Calc Estimated GFR POC Glucose 201 H 161 H Random Glucose Lactic Acid Lactic Acid F/U @ 2Hr Calcium Magnesium Total Bilirubin Direct Bilirubin AST ALT Alkaline Phosphatase Troponin I High Sens Total Protein Albumin Lipase Urine Color Yellow Urine Appearance Clear Urine pH 6.5 Ur Specific [place] 1.015 Urine Protein 30 (1+) H Urine Glucose (UA) 500 H Urine Ketones Negative Urine Blood Trace H Urine Nitrite Negative Ur Leukocyte Esterase Moderate (2+) H Urine RBC 0-2 Urine WBC 21-50 H Ur Squamous Epith Cells 0-2 Urine Bacteria None Seen Hyaline Casts 0-2 Influenza Type A (PCR) Influenza Type B (PCR) RSV RNA Qual (PCR) SARS-CoV-2 RNA (RT-PCR) 02/15/25 02/15/25 06:16 07:29 WBC 14.9 H RBC 3.86 L Hgb 10.9 L Hct 33.6 L MCV 87.0 MCH 28.2 MCHC 32.4 RDW 14.3 Plt Count 207 MPV 8.8 L Immature Gran % (Auto) Neut % (Auto) Lymph % (Auto) [place] % (Auto) Eos % (Auto) Baso % (Auto) Lymph # (Auto) [place] # (Auto) Eos # (Auto) Baso # (Auto) Abs Immat Gran (auto) Absolute Neuts (auto) Absolute Nucleated RBC 0.000 Nucleated RBC % (auto) 0.0 Smear Tech's Comments Sodium 139 Potassium 3.5 Chloride 110 H Carbon Dioxide 22 Anion Gap 11 L BUN 21 H Creatinine 1.43 H Estim Creat Clear Calc 44.5 Estimated GFR 48 POC Glucose 80 Random Glucose 87 Lactic Acid Lactic Acid F/U @ 2Hr Calcium 8.7 Magnesium 2.1 Total Bilirubin Direct Bilirubin AST ALT Alkaline Phosphatase Troponin I High Sens Total Protein Albumin Lipase Urine Color Urine Appearance Urine pH Ur Specific [place] Urine Protein Urine Glucose (UA) Urine Ketones Urine Blood Urine Nitrite Ur Leukocyte Esterase Urine RBC Urine WBC Ur Squamous Epith Cells Urine Bacteria Hyaline Casts Influenza Type A (PCR) Influenza Type B (PCR) RSV RNA Qual (PCR) SARS-CoV-2 RNA (RT-PCR) Discharge Plan Discharge Anticipated Discharge Date/Time: 02/15/25 10:04 Patient Disposition: Home, Self-Care Discharge Diagnosis: sepsis pna Referrals: Afia Cabrera MD [Primary Care Provider] - 1 Week Discharge Medications: New cefuroxime axetil 500 mg tablet 500 mg PO BID Qty: 10 0RF azithromycin 500 mg tablet 500 mg PO DAILY 5 Days Qty: 5 0RF Continued ezetimibe [Zetia] 10 mg tablet 10 mg PO DAILY 90 Days Qty: 90 1RF atorvastatin 80 mg tablet 80 mg PO BEDTIME 30 Days Qty: 30 11RF (DME) CeQur Simplicity 2 unit device See Rx Instructions .ROUTE .MEDSUPPLY Qty: 8 11RF Rx Instructions: As directed every 4 days (DME) CeQur Simplicity Telephone Directory Deliverer Misc See Rx Instructions .ROUTE .MEDSUPPLY Qty: 1 1RF Rx Instructions: As directed for use with CeQur insulin patch hydralazine 50 mg Tablet 50 mg PO BEDTIME Qty: 90 0RF Protocol: Hold for SBP< HOLD for SBP < : 90 melatonin 5 mg Tablet 5 mg PO BEDTIME escitalopram oxalate 20 mg tablet 20 mg PO DAILY amlodipine 10 mg tablet 10 mg PO DAILY omeprazole 20 mg capsule,delayed release(DR/EC) 20 mg PO DAILY@0630 diphenhydramine-acetaminophen 25-500 mg Tablet 2 tab PO BEDTIME insulin aspart U-100 [Novolog U-100 Insulin aspart] 100 unit/mL solution 18 unit subcut TIDWM Rx Instructions: 16 units three times a day with meals each click on cequr is 2 units albuterol sulfate 90 mcg/actuation Hfa Aerosol Inhaler 2 puff INHALATION Q4H PRN (Reason: Shortness Of Breath Or Wheezing) cetirizine 10 mg tablet 10 mg PO DAILY PRN (Reason: allergies) entecavir 0.5 mg tablet 0.5 mg PO DAILY cholecalciferol (vitamin D3) 50 mcg (2,000 unit) capsule 50 mcg PO DAILY aspirin 81 mg tablet,delayed release (DR/EC) 81 mg PO DAILY insulin degludec [Tresiba FlexTouch U-200] 200 unit/mL (3 mL) insulin pen 40 unit subcut DAILY 90 Days Qty: 18 4RF metoprolol succinate 100 mg tablet extended release 24 hr 100 mg PO DAILY Brilinta 60 mg tablet 60 mg PO BID Discharge Orders: Discharge Order (Routine); Ordered 02/15/25 Ordered By: David Neri Diet: Advance to usual diet Activity on Discharge: As tolerated Stand Alone Forms: Patient Portal Discharge page Print Language: Sudanese Care Plan Goals: Recovery Health Concerns: Pneumonia Plan of Treatment: 5 more days of Ceftin and azithromycin Assessment: See above
--- NOTE | 2025-02-15 10:19 | MHC.CM.PN ---
PT DCD HOME SELF CARE
[2025-02-15 10:46] VITALS: BP 147/66; PULSE 63; RESP 17; TEMP 36.8; O2SAT 98
== END 2025-02-15 10:52 | disposition home or self-care (01) | DRG 871 ==
LOC: HO.ED 12:37 → HO.EDOVER 13:59 → HO.S3 16:32
PROVIDERS: Physician Assistant; Admitting Provider Internal Medicine; Emergency Provider Emergency Medicine; PCP Family Medicine; Visit Provider Internal Medicine
DX: A41.9 Sepsis, unspecified organism (principal); J18.9 Pneumonia, unspecified organism; I69.354 Hemiplegia and hemiparesis following cerebral infarction affecting left non-dominant side; B19.10 Unspecified viral hepatitis B without hepatic coma; I12.9 Hypertensive chronic kidney disease with stage 1 through stage 4 chronic kidney disease, or unspecified chronic kidney disease; Z66 Do not resuscitate; I25.10 Atherosclerotic heart disease of native coronary artery without angina pectoris; N18.30 Chronic kidney disease, stage 3 unspecified; E11.22 Type 2 diabetes mellitus with diabetic chronic kidney disease; I71.43 Infrarenal abdominal aortic aneurysm, without rupture; Z20.822 Contact with and (suspected) exposure to COVID-19; Z87.891 Personal history of nicotine dependence; Z79.4 Long term (current) use of insulin; Z79.82 Long term (current) use of aspirin; Z79.899 Other long term (current) drug therapy
CPT/HCPCS: 0241U; 36415; 71045; 73030; 74176; 80048; 80076; 81001; 82947; 83605; 83690; 83735; 84484; 85025; 85027; 87040; 87086; 87088; 87186; 93005; 99285; J2543

== ENCOUNTER → 2025-02-14 10:43 | Outpatient (BNV) | payer MEDICARE, BC, SELFPAY | PROVIDERS: Admitting Provider Internal Medicine; Emergency Provider Emergency Medicine; PCP Family Medicine; Visit Provider Internal Medicine | DX: I45.10 Unspecified right bundle-branch block (principal) | CPT/HCPCS: 93010 ==

== ENCOUNTER → 2025-02-14 10:43 | Outpatient (BNV) | payer MEDICARE, BC, SELFPAY | PROVIDERS: Emergency Provider Emergency Medicine; PCP Family Medicine; Visit Provider Radiology Diagnostic Radiology | DX: K80.00 Calculus of gallbladder with acute cholecystitis without obstruction (principal); J15.1 Pneumonia due to Pseudomonas; I71.43 Infrarenal abdominal aortic aneurysm, without rupture; N26.1 Atrophy of kidney (terminal); M79.622 Pain in left upper arm; W19.XXXA Unspecified fall, initial encounter; R50.9 Fever, unspecified | CPT/HCPCS: 71045; 73030; 74176 ==

== ENCOUNTER → 2025-02-14 11:03 | Outpatient (BNV) | payer MEDICARE, BC, SELFPAY | PROVIDERS: Emergency Provider Emergency Medicine; PCP Family Medicine; Visit Provider Internal Medicine | DX: I25.10 Atherosclerotic heart disease of native coronary artery without angina pectoris (principal) | CPT/HCPCS: 99223 ==

== ENCOUNTER 2025-05-17 11:01 | Emergency (ER) | payer MEDICARE, BC, SELFPAY ==
[2025-05-17] VITALS (10 sets, daily range): BP systolic 101–164; BP diastolic 48–73; PULSE 62–82; RESP 13–20; TEMP 36.5–37.3; O2SAT 95–97; BMI 24.1
--- NOTE | 2025-05-17 11:03 | ED.ABDPAIN ---
HPI - Abdominal Pain General Chief Complaint: Nausea/Vomiting/Diarrhea Stated Complaint: N/V PER EMS Time Seen by Provider: 05/17/25 11:03 Source: patient and EMS Mode of arrival: EMS Limitations: no limitations History of Present Illness ED Provider: bertha amaro np HPI narrative: Patient is a 74-year-old male with past medical history of diabetes, glaucoma, hepatitis-B, CAD, CKD, AAA, hypertension, CVA with left-sided residual deficits, hyperlipidemia, hypertension, carotid artery disease on Brilinta/aspirin presenting to emergency department for evaluation of acute onset of symptoms at 09:00 this morning approximately 2 hours prior to arrival; dizziness, weakness, nausea and vomiting. Denies headache, vision changes, neck pain, chest pain, shortness of breath, abdominal pain, back pain, dysuria, urinary frequency/urgency/hesitancy, diarrhea, constipation, hematochezia, melena. Denies testicular pain/urethral discharge or scrotal swelling. He reports that he only had a cookie for breakfast, chocolate chip cookie in the home that purchase, asked if there is any potential whether this may have been a marijuana/edible cookie he does admit that it is a possibility from other family members in the home, this would has been unintentional ingestion. Related Data Home Medications ?Medication ?Instructions ?Recorded ?Confirmed aspirin 81 mg tablet,delayed 81 mg PO DAILY 09/10/20 05/18/25 release cholecalciferol (vitamin D3) 50 50 mcg PO DAILY 09/10/20 05/18/25 mcg (2,000 unit) capsule melatonin 5 mg tablet 5 mg PO BEDTIME 02/19/21 05/18/25 entecavir 0.5 mg tablet 0.5 mg PO DAILY 05/18/21 05/18/25 cetirizine 10 mg tablet 10 mg PO DAILY PRN allergies 12/05/23 05/18/25 metoprolol succinate 100 mg 100 mg PO DAILY 12/06/24 05/17/25 tablet,extended release 24 hr ticagrelor 60 mg tablet (Brilinta) 60 mg PO BID 12/06/24 05/18/25 albuterol sulfate 90 mcg/actuation 2 puff inhalation Q4H PRN 02/14/25 05/18/25 aerosol inhaler Shortness Of Breath Or Wheezing amlodipine 10 mg tablet 10 mg PO DAILY 02/14/25 05/18/25 diphenhydramine 25 2 tab PO BEDTIME 02/14/25 05/18/25 mg-acetaminophen 500 mg tablet escitalopram oxalate 20 mg tablet 20 mg PO DAILY 02/14/25 05/18/25 omeprazole 20 mg capsule,delayed 10 mg PO DAILY@0630 02/14/25 05/18/25 release insulin aspart U-100 100 unit/mL See Protocol subcut TIDWM 05/18/25 05/18/25 subcutaneous solution (Novolog U-100 Insulin aspart) insulin degludec 200 unit/mL (3 32 unit subcut DAILY 05/18/25 05/18/25 mL) subcutaneous pen (Tresiba FlexTouch U-200 insulin) Previous Rx's ?Medication ?Instructions ?Recorded ezetimibe 10 mg tablet (Zetia) 10 mg PO DAILY 90 days #90 tabs 11/26/20 atorvastatin 80 mg tablet 80 mg PO BEDTIME 30 days #30 tabs 02/12/21 hydralazine 50 mg tablet 50 mg PO BEDTIME #90 tabs 04/07/21 diabetic supplies, miscellan. #1 ea 12/13/24 ([employer]work [employer]) bolus insulin pump, 200 unit 2 #8 ea 03/26/25 unit bolus insulin patch pump, 200 unit, disposable ([employer]) Allergies Allergy/AdvReac Type Severity Reaction Status Date / Time No Known Allergies Allergy Verified 05/17/25 11:16 Review of Systems Review of Systems Yes all other systems are reviewed and are negative PMFSH Past Medical History Attestation statement: The following information was validated with the patient. Source: old records reviewed Medical History Diabetes type 2 T1DM (type 1 diabetes mellitus) Wears dentures Chronic hepatitis B Paralysis of left upper extremity Ambulates with cane Glaucoma Diverticulosis Diabetes Bilateral cataracts Uncontrolled diabetes mellitus with hyperglycemia History of stent insertion of renal artery CAD (coronary artery disease) Carotid artery disease Pituitary adenoma Cerebral microvascular disease Multiple cerebral infarctions Left hemiparesis CKD (chronic kidney disease) stage 3, GFR 30-59 ml/min AAA (abdominal aortic aneurysm) Left renal artery stenosis Hypertensive urgency CKD (chronic kidney disease) stage 3, GFR 30-59 ml/min Peroneal neuropathy Hypertension Encounter for loop recorder check Stroke due to stenosis of right carotid artery Stroke Status post placement of implantable loop recorder CVA (cerebral vascular accident) (~2020) TIA (transient ischemic attack) (~2020) Vitamin D deficiency Pituitary macroadenoma HLD (hyperlipidemia) HTN (hypertension) Surgical History Cataract extraction status of left eye (10/07/24) History of partial colectomy (~1997) History of heart artery stent History of carotid endarterectomy Family History Family History Father CVD (cardiovascular disease) AAA (abdominal aortic aneurysm) Mother No problems noted. Social History Social History Household Members: Family Housing: House Are you a primary director medicare sales to a significant other at home: No Do you presently have visiting nurse or other home services: No Alcohol intake: never Comment: bed rest, unable to ambulate per md Patient Tobacco Use Status: Former Tobacco user Tobacco use type: Cigarette Years Smoked: 50+ Smoked in Last 30 Days: No Second Hand Smoke Exposure: No Use of substances other than those prescribed or required for medical reasons: No Advance Directives: No Advance Directives Information Provided: No Advance Directives Date on File: 01/09/21 Do you have a plan to hurt others: No Plan service: No Current occupational status: unemployed and retired Physical Exam ED Vital Signs: Vital Signs - 24 hr 05/18/25 14:00 05/18/25 20:46 05/18/25 21:13 Temperature 97.8 F 97.5 F Pulse Rate 69 62 Respiratory Rate 16 18 Blood Pressure 176/86 H 163/63 H 163/63 H Pulse Oximetry 99 98 Oxygen Delivery Method Room Air Room Air 05/19/25 06:20 05/19/25 08:52 05/19/25 09:45 Temperature 97.9 F Pulse Rate 61 62 62 Respiratory Rate 14 Blood Pressure 145/52 H 169/74 H 169/74 H Pulse Oximetry 96 Oxygen Delivery Method Room Air BMI result Body Mass Index 24.1 Appearance: Alert.?Oriented to person, place and time. No acute distress.?Normal affect.?? Neck: Normal inspection.? Neck supple.?? CVS: Heart sounds normal. Normal heart rate and rhythm.? Pulses normal.?? Respiratory: No respiratory distress.? Lung sounds clear to auscultation bilaterally?? Abdomen: Soft and non-tender. No rebound tenderness at McBurney's point. Negative psoas sign. Negative Rovsing sign. Negative Hernandez sign. No CVAT. Normoactive bowel sounds. No pulsatile mass.?? Skin: Skin warm and dry.? Normal skin color.? Extremities: No lower extremity edema.? Neuro: Moves all extremities spontaneously. Sensation intact bilaterally. Ambulates with normal steady gait. Procedures Procedure Narrative Procedure Narrative: EMERGENCY ULTRASOUND INTERPRETATION-Point of Care Trauma (FAST)? Limited Abdominal+Echocardiographic The study reveals: Impression:? -Peritoneum: NO FREE FLUID -Pericardium: NO EFFUSION Indication: n/v weakness -Mechanism:? -Type: acute onset symptoms Fluid (FAST Views):? -Hepatorenal: NEGATIVE -Perisplenic: NEGATIVE -Retrovesical/Pelvic: NEGATIVE -Cardiac: NEGATIVE Other views:? Performed by: CAMILLA Date: 05/17/25 Time: 152pm CPT Codes: 08589 ; 94063 ; 68887; Reference Codes? [email or web address]] Course Reevaluation(s) Reevaluation #1: Bedside fast performed with my attending Dr. Russell, limited due to patient discomfort during examination, no apparent free fluid within the abdomen. Time: 11:41 Reevaluation #2: Family present at bedside, and confirm that he did in fact eat a marijuana cookie. Patient's feels strongly that he does not require any CT imaging at this time. Reviewed this is my attending Dr. Russell, given that we now identifiable etiology for his symptoms, lower suspicion for acute CVA/acute intra-abdominal pathology. Will monitor closely. His abdominal examination is benign and he remains without new focal neurological deficits. Time: 12:08 Reevaluation #3: Call from lab regarding critical lactic acid of 2.2 which may be secondary to vomiting, at this time no identified infectious source, has so far received 1 L normal saline IV fluid has no hypotension. Symptoms may be secondary to unintentional toxic ingestion. Do not suspect sepsis at this time. Time: 14:12 Additional Reevaluation(s): 16:00 - patient reports that he still feels drowsy, high , he is amenable to trialing something to eat at this time. Feels weak and not willing to get up and try walking yet. 18:00 - patient is tolerating oral intake, no further nausea and vomiting. No abdominal pain. He states that he still feels weak and foggy, feels as though if he gets up he will fall down. Patient's sister is at bedside wondering whether she can take him home. He uses a cane at baseline for ambulation. Advised that we would like to see that he can get up and move about safely before being discharged home. He remains without any focal neurological deficits at this time. GCS 15. 18:30 - attempted ambulatory to assist, who feels significant magnesium not able to get up out of bed unassisted. Expresses concern for his safety to return home at this time. Will place in physician observation pending case management involvement, has left-sided hemiplegia from prior CVA, do not feel comfortable discharging him home with sister pending sobriety already impaired gait. Time: 09:35 Date: 05/18/25 Provider: Halina Lynne NP Patient in physician observation for case management needs. No acute events reported overnight.? No current issues or complaints. VS stable. Patient is pending pending PT/CM eval. Patient reports feeling much better versus yesterday. Nursing will reconcile medication. Will continue to monitor. Time: 12:37 Date: 05/19/25 Provider: DE James Physician observation ended at 1237. Patient has been evaluated by physical therapy with recommendation for home w/ services. patient agreeabe and will be discharged home with his sister today. Medical Decision Making Medical Decision Making MDM Narrative: Patient is a 74-year-old male with past medical history of diabetes, glaucoma, hepatitis-B, CAD, CKD, AAA, hypertension, CVA with left-sided residual deficits, hyperlipidemia, hypertension, carotid artery disease on Brilinta/aspirin presents for evaluation of dizziness with nausea and vomiting 2 hours prior to arrival to emergency department as per HPI. Abdominal examination is benign, overall without signs of systemic toxicity found to be afebrile without tachycardia, no hypotension. Examination not consistent with acute abdomen, no peritoneal signs; no tenderness upon light palpation, no rebound tenderness, no guarding, no percussive tenderness. He is actively vomiting small amount of emesis on arrival. Which has a he has residual left-sided weakness from baseline, does not feel as though this has worsened, otherwise without focal neurological deficits, right upper extremity finger nose testing within normal range, right lower extremity [id number] test normal. He denies any associated chest pain, shortness of breath, or abdominal pain. Plan to obtain serum labs, provide antiemetic and 1 L normal saline IV fluid. Symptoms may potentially be secondary to biliary colic, cholelithiasis, has a negative Hernandez's sign, lower suspicion for acute cholecystitis or choledocholithiasis, no fever jaundice to suggest acute cholangitis. Denies history of acid reflux again a benign abdominal examination, potentially gastritis no recent hematemesis to favor PUD. Denies excessive alcohol consumption he does however have a history of diabetes, potential for pancreatitis. Obtaining CT head, AP for further evaluation. Potentially toxic ingestion as per HPI Differential Diagnosis Differential Diagnoses: The differential diagnosis associated with the presentation includes (See narrative above) Admission/Observation Consideration of admission/observation: Escalation of care including admission/observation considered (See narrative above ) Lab Data MDM Lab Attestation statement: I reviewed the patient's lab results. CBC reveals a mild leukocytosis of 10,900 with left shift, anemia does not meet transfusion criteria, no thrombocytopenia. 05/17/25 13:20 05/17/25 13:20 Labs: Lab Results 05/17/25 05/17/25 05/17/25 Range/Units 12:03 13:20 15:57 WBC 10.9 H (4.8-10.8) X10*3/uL RBC 4.18 L (4.60-5.80) X10*6/uL Hgb 11.7 L (14.0-18.0) g/dl Hct 35.6 L (42.0-52.0) % MCV 85.2 (80.0-98.0) fL MCH 28.0 (27.0-33.0) pg MCHC 32.9 (31.0-36.0) g/dl RDW 14.2 (11.0-16.0) % Plt Count 269 D (160-400) X10*3/uL MPV 8.7 L (9.4-12.4) fL Immature Gran % (Auto) 0.3 (0.0-0.4) % Neut % (Auto) 85.2 H (45-73) % Lymph % (Auto) 7.5 L (20-40) % [place] % (Auto) 6.0 (2-11) % Eos % (Auto) 0.7 (0-4) % Baso % (Auto) 0.3 (0-2) % Lymph # (Auto) 0.8 L (1.2-4.9) X10*3/uL [place] # (Auto) 0.7 (0.1-1.2) X10*3/uL Eos # (Auto) 0.1 (0.0-0.4) X10*3/uL Baso # (Auto) 0.0 (0.0-0.2) X10*3/uL Abs Immat Gran (auto) 0.03 (0.00-0.03) X10*3/uL Absolute Neuts (auto) 9.3 H (2.0-8.3) x10*3/uL Absolute Nucleated RBC 0.000 (0.0-0.012) X10*3/uL Nucleated RBC % (auto) 0.0 (0.0-0.2) /100WBC Sodium 139 (135-145) mmol/L Potassium 4.3 D (3.3-5.1) mmol/L Chloride 108 (96-108) mmol/L Carbon Dioxide 22 (22-29) mmol/L Anion Gap 13 (12-20) BUN 23 H (9-16) mg/dL Creatinine 1.69 H (0.5-1.4) mg/dL Estim Creat Clear Calc 37.6 Estimated GFR 40 POC Glucose (60-115) mg/dL Random Glucose 171 H (60-115) mg/dL Lactic Acid 2.2 H* (0.5-2.0) mmol/L Lactic Acid F/U @ 2Hr 1.3 (0.5-2.0) mmol/L Calcium 8.5 (8.4-10.2) mg/dL Magnesium 2.2 (1.6-2.6) mg/dL Total Bilirubin 0.4 (0.0-1.0) mg/dL AST 36 (5-37) U/L ALT 30 (0-40) U/L Alkaline Phosphatase 89 (39-117) U/L Troponin I High Sens 10.1 D (<3.5-35.0) ng/L Total Protein 7.0 (6.5-8.0) g/dL Albumin 4.1 (3.5-5.0) g/dL Lipase 7 L (8-78) U/L Urine Color Urine Appearance Urine pH (5.0-9.0) Ur Specific [place] (1.005-1.025) Urine Protein (Neg-Trace) mg/dL Urine Glucose (UA) (Negative) mg/dL Urine Ketones (Negative) mg/dL Urine Blood (Negative) Urine Nitrite (Negative) Ur Leukocyte Esterase (Negative) Urine RBC (0-2) /HPF Urine WBC (0-5) /HPF Ur Squamous Epith Cells (0-2) /HPF Urine Bacteria (None Seen) Hyaline Casts (0-2) /LPF Urine Opiates Screen (Not Detect) Ur Buprenorphine Scrn (Not Detect) ng/mL Ur Oxycodone Screen (Not Detect) ng/mL Urine Methadone Screen (Not Detect) ng/mL Urine Fentanyl Screen (Not Detect) Ur Barbiturates Screen (Not Detect) Ur Phencyclidine Scrn (Not Detect) Ur Amphetamines Screen (Not Detect) U Benzodiazepines Scrn (Not Detect) Urine Cocaine Screen (Not Detect) U Marijuana (THC) Screen (Not Detect) Influenza Type A (PCR) NEGATIVE (Negative) Influenza Type B (PCR) NEGATIVE (Negative) RSV RNA Qual (PCR) NEGATIVE (Negative) SARS-CoV-2 RNA (RT-PCR) NEGATIVE (Negative) 05/17/25 05/18/25 05/18/25 Range/Units 23:31 11:31 16:39 WBC (4.8-10.8) X10*3/uL RBC (4.60-5.80) X10*6/uL Hgb (14.0-18.0) g/dl Hct (42.0-52.0) % MCV (80.0-98.0) fL MCH (27.0-33.0) pg MCHC (31.0-36.0) g/dl RDW (11.0-16.0) % Plt Count (160-400) X10*3/uL MPV (9.4-12.4) fL Immature Gran % (Auto) (0.0-0.4) % Neut % (Auto) (45-73) % Lymph % (Auto) (20-40) % [place] % (Auto) (2-11) % Eos % (Auto) (0-4) % Baso % (Auto) (0-2) % Lymph # (Auto) (1.2-4.9) X10*3/uL [place] # (Auto) (0.1-1.2) X10*3/uL Eos # (Auto) (0.0-0.4) X10*3/uL Baso # (Auto) (0.0-0.2) X10*3/uL Abs Immat Gran (auto) (0.00-0.03) X10*3/uL Absolute Neuts (auto) (2.0-8.3) x10*3/uL Absolute Nucleated RBC (0.0-0.012) X10*3/uL Nucleated RBC % (auto) (0.0-0.2) /100WBC Sodium (135-145) mmol/L Potassium (3.3-5.1) mmol/L Chloride (96-108) mmol/L Carbon Dioxide (22-29) mmol/L Anion Gap (12-20) BUN (9-16) mg/dL Creatinine (0.5-1.4) mg/dL Estim Creat Clear Calc Estimated GFR POC Glucose 241 H 259 H (60-115) mg/dL Random Glucose (60-115) mg/dL Lactic Acid (0.5-2.0) mmol/L Lactic Acid F/U @ 2Hr (0.5-2.0) mmol/L Calcium (8.4-10.2) mg/dL Magnesium (1.6-2.6) mg/dL Total Bilirubin (0.0-1.0) mg/dL AST (5-37) U/L ALT (0-40) U/L Alkaline Phosphatase (39-117) U/L Troponin I High Sens (<3.5-35.0) ng/L Total Protein (6.5-8.0) g/dL Albumin (3.5-5.0) g/dL Lipase (8-78) U/L Urine Color Yellow Urine Appearance Clear Urine pH 6.0 (5.0-9.0) Ur Specific [place] 1.015 (1.005-1.025) Urine Protein 30 (1+) H (Neg-Trace) mg/dL Urine Glucose (UA) 250 H (Negative) mg/dL Urine Ketones Negative (Negative) mg/dL Urine Blood Negative (Negative) Urine Nitrite Negative (Negative) Ur Leukocyte Esterase Negative (Negative) Urine RBC 0-2 (0-2) /HPF Urine WBC 0-5 (0-5) /HPF Ur Squamous Epith Cells 0-2 (0-2) /HPF Urine Bacteria None Seen (None Seen) Hyaline Casts 0-2 (0-2) /LPF Urine Opiates Screen Not Detected (Not Detect) Ur Buprenorphine Scrn Not Detected (Not Detect) ng/mL Ur Oxycodone Screen Not Detected (Not Detect) ng/mL Urine Methadone Screen Not Detected (Not Detect) ng/mL Urine Fentanyl Screen Not Detected (Not Detect) Ur Barbiturates Screen Not Detected (Not Detect) Ur Phencyclidine Scrn Not Detected (Not Detect) Ur Amphetamines Screen Not Detected (Not Detect) U Benzodiazepines Scrn Not Detected (Not Detect) Urine Cocaine Screen Not Detected (Not Detect) U Marijuana (THC) Screen POSITIVE H (Not Detect) Influenza Type A (PCR) (Negative) Influenza Type B (PCR) (Negative) RSV RNA Qual (PCR) (Negative) SARS-CoV-2 RNA (RT-PCR) (Negative) 05/18/25 05/19/25 05/19/25 Range/Units 20:36 07:54 11:13 WBC (4.8-10.8) X10*3/uL RBC (4.60-5.80) X10*6/uL Hgb (14.0-18.0) g/dl Hct (42.0-52.0) % MCV (80.0-98.0) fL MCH (27.0-33.0) pg MCHC (31.0-36.0) g/dl RDW (11.0-16.0) % Plt Count (160-400) X10*3/uL MPV (9.4-12.4) fL Immature Gran % (Auto) (0.0-0.4) % Neut % (Auto) (45-73) % Lymph % (Auto) (20-40) % [place] % (Auto) (2-11) % Eos % (Auto) (0-4) % Baso % (Auto) (0-2) % Lymph # (Auto) (1.2-4.9) X10*3/uL [place] # (Auto) (0.1-1.2) X10*3/uL Eos # (Auto) (0.0-0.4) X10*3/uL Baso # (Auto) (0.0-0.2) X10*3/uL Abs Immat Gran (auto) (0.00-0.03) X10*3/uL Absolute Neuts (auto) (2.0-8.3) x10*3/uL Absolute Nucleated RBC (0.0-0.012) X10*3/uL Nucleated RBC % (auto) (0.0-0.2) /100WBC Sodium (135-145) mmol/L Potassium (3.3-5.1) mmol/L Chloride (96-108) mmol/L Carbon Dioxide (22-29) mmol/L Anion Gap (12-20) BUN (9-16) mg/dL Creatinine (0.5-1.4) mg/dL Estim Creat Clear Calc Estimated GFR POC Glucose 201 H 199 H 224 H (60-115) mg/dL Random Glucose (60-115) mg/dL Lactic Acid (0.5-2.0) mmol/L Lactic Acid F/U @ 2Hr (0.5-2.0) mmol/L Calcium (8.4-10.2) mg/dL Magnesium (1.6-2.6) mg/dL Total Bilirubin (0.0-1.0) mg/dL AST (5-37) U/L ALT (0-40) U/L Alkaline Phosphatase (39-117) U/L Troponin I High Sens (<3.5-35.0) ng/L Total Protein (6.5-8.0) g/dL Albumin (3.5-5.0) g/dL Lipase (8-78) U/L Urine Color Urine Appearance Urine pH (5.0-9.0) Ur Specific [place] (1.005-1.025) Urine Protein (Neg-Trace) mg/dL Urine Glucose (UA) (Negative) mg/dL Urine Ketones (Negative) mg/dL Urine Blood (Negative) Urine Nitrite (Negative) Ur Leukocyte Esterase (Negative) Urine RBC (0-2) /HPF Urine WBC (0-5) /HPF Ur Squamous Epith Cells (0-2) /HPF Urine Bacteria (None Seen) Hyaline Casts (0-2) /LPF Urine Opiates Screen (Not Detect) Ur Buprenorphine Scrn (Not Detect) ng/mL Ur Oxycodone Screen (Not Detect) ng/mL Urine Methadone Screen (Not Detect) ng/mL Urine Fentanyl Screen (Not Detect) Ur Barbiturates Screen (Not Detect) Ur Phencyclidine Scrn (Not Detect) Ur Amphetamines Screen (Not Detect) U Benzodiazepines Scrn (Not Detect) Urine Cocaine Screen (Not Detect) U Marijuana (THC) Screen (Not Detect) Influenza Type A (PCR) (Negative) Influenza Type B (PCR) (Negative) RSV RNA Qual (PCR) (Negative) SARS-CoV-2 RNA (RT-PCR) (Negative) Independent Interpretation I performed an independent interpretation of an: EKG (Normal sinus rhythm, RBBB, with ventricular rate of 73, WILL, QTC 473, T-wave inversion lead III, V3 as seen on prior, no ST elevation) Radiology Impression Discussion of test interpretation with radiology: I have reviewed the radiologist's reading. External Record Review External record reviewed: Outpatient record Chronic Conditions Patient?s care impacted by: Other (See narrative above) Medications Administered Generic Name Dose Route Start Last Admin Trade Name Freq PRN Reason Stop Dose Admin Amlodipine Besylate 10 mg 05/18/25 12:00 05/19/25 09:47 Amlodipine Besylate 10 Mg Tablet PO 10 mg DAILY BILLY Administration Protocol Aspirin 81 mg 05/18/25 12:00 05/19/25 09:43 Aspirin Enteric Coated 81 Mg Tablet. PO 81 mg DAILY BILLY Administration Atorvastatin Calcium 80 mg 05/18/25 21:00 05/18/25 21:13 Atorvastatin Calcium 80 Mg Tablet PO 80 mg BEDTIME BILLY Administration Diphenhydramine HCl 50 mg 05/18/25 18:41 05/18/25 21:12 Diphenhydramine Hcl 25 Mg Capsule PO 50 mg ONCE PRN Administration Insomnia Ezetimibe 10 mg 05/18/25 14:15 05/19/25 09:45 Ezetimibe 10 Mg Tablet PO 10 mg DAILY BILLY Administration Escitalopram Oxalate 20 mg 05/18/25 14:15 05/19/25 09:43 Escitalopram Oxalate 20 Mg Tablet PO 20 mg DAILY BILLY Administration Hydralazine HCl 50 mg 05/18/25 21:00 05/18/25 21:13 Hydralazine Hcl 50 Mg Tablet PO 50 mg BEDTIME BILLY Administration Protocol Insulin Human Lispro 0 unit 05/18/25 17:15 05/19/25 11:39 Insulin Lispro 100 Unit/Ml 3 Ml Vial SUBCUT 4 unit QIDACHS BILLY Administration Protocol Melatonin 6 mg 05/18/25 21:00 05/18/25 21:12 Melatonin 3 Mg Tablet PO 6 mg BEDTIME BILLY Administration Metoprolol Succinate 100 mg 05/18/25 14:15 05/19/25 09:45 Metoprolol Succinate Er 100 Mg Tab.Er.24h PO 100 mg DAILY BILLY Administration Protocol Pt Own (Ticagrelor [ 60 mg 05/18/25 12:00 05/19/25 09:44 Brilinta] 60 Mg PO 60 mg Tablet) BID BILLY Administration Omeprazole 10 mg 05/18/25 15:00 05/19/25 06:39 Omeprazole/Na Bicarb Oral Susp 20 Mg/10 Ml Ud Cup PO 10 mg DAILY@0630 [facility] Administration Vitamin D 50 mcg 05/18/25 14:00 05/19/25 09:43 Cholecalciferol (Vitamin D3) 25 Mcg Tablet PO 50 mcg DAILY BILLY Administration Discontinued Medications Generic Name Dose Route Start Last Admin Trade Name Freq PRN Reason Stop Dose Admin Diphenhydramine HCl 25 mg 05/17/25 12:49 05/17/25 13:29 Diphenhydramine Hcl 50 Mg/Ml Vial IVPUSH 05/17/25 12:50 25 mg ONCE ONE Administration Diphenhydramine HCl 25 mg 05/17/25 22:05 05/17/25 22:48 Diphenhydramine Hcl 25 Mg Capsule PO 05/17/25 22:06 25 mg ONCE ONE Administration Sodium Chloride 1,000 mls @ 999 mls/hr 05/17/25 11:15 05/17/25 13:30 Ns IV 05/17/25 12:15 Infused .Q1H1M BILLY Infusion Metoclopramide HCl 10 mg 05/17/25 12:49 05/17/25 13:30 Metoclopramide Hcl 10 Mg/2 Ml Vial IVPUSH 05/17/25 12:50 10 mg ONCE ONE Administration Omeprazole 10 mg 05/18/25 14:15 05/18/25 15:15 Omeprazole 20 Mg Capsule. PO Not Given DAILY@0630 [facility] Ondansetron HCl 4 mg 05/17/25 11:14 05/17/25 11:43 Ondansetron Hcl 4 Mg/2 Ml Vial IVPUSH 05/17/25 11:15 4 mg ONCE ONE Administration Critical Care Time Critical Care Time Critical Care Time: Yes Total Critical Care Time: 35 Attestation: Time is exclusive of separately billable procedures. Time includes: direct patient care, patient reassessment, coordination of patient care, interpretation of data (laboratory data, pulse oximetry, FAST), review of patient's medical records, medical consultation and documentation of patient care. Procedures excluded from critical care time: central intravenous line placement and electrocardiography. Discharge Plan Discharge Clinical Impression: Dizziness Patient Disposition: Home, Self-Care Instructions: Dizziness (ED) Additional Instructions: Your work up in ED is reassuring. Physical therapy has evaluated you and is recommending you be discharged home with servies. These will be arranged by our case management team. Follow up with outpatient providers as needed. Return with any new or worsening symptoms. In the case of an emergency call 911. Prescriptions: No Action ezetimibe [Zetia] 10 mg tablet 10 mg PO DAILY 90 Days Qty: 90 1RF atorvastatin 80 mg tablet 80 mg PO BEDTIME 30 Days Qty: 30 11RF (DME) [employer] Director Of Casework Services Misc See Rx Instructions .ROUTE .MEDSUPPLY Qty: 1 1RF Rx Instructions: As directed for use with [facility] insulin patch (DME) [employer] 2 unit device See Rx Instructions .ROUTE .MEDSUPPLY Qty: 8 11RF Rx Instructions: As directed every 4 days hydralazine 50 mg Tablet 50 mg PO BEDTIME Qty: 90 0RF Protocol: Hold for SBP< HOLD for SBP < : 90 melatonin 5 mg Tablet 5 mg PO BEDTIME escitalopram oxalate 20 mg tablet 20 mg PO DAILY amlodipine 10 mg tablet 10 mg PO DAILY omeprazole 20 mg capsule,delayed release(DR/EC) 10 mg PO DAILY@0630 diphenhydramine-acetaminophen 25-500 mg Tablet 2 tab PO BEDTIME albuterol sulfate 90 mcg/actuation Hfa Aerosol Inhaler 2 puff INHALATION Q4H PRN (Reason: Shortness Of Breath Or Wheezing) insulin degludec [Tresiba FlexTouch U-200] 200 unit/mL (3 mL) insulin pen 32 unit subcut DAILY insulin aspart U-100 [Novolog U-100 Insulin aspart] 100 unit/mL Solution See Protocol SUBCUT TIDWM Protocol: Insulin Correction Scale Less than or equal to 110 ---- Give (units): 0 111 to 150 Give (units): 0 151 to 200 Give (units): 2 201 to 250 Give (units): 4 251 to 300 Give (units): 6 301 to 350 Give (units): 8 Greater than 350 Give (units): 10 Call MD if Blood Glucose > : 350 cetirizine 10 mg tablet 10 mg PO DAILY PRN (Reason: allergies) entecavir 0.5 mg tablet 0.5 mg PO DAILY cholecalciferol (vitamin D3) 50 mcg (2,000 unit) capsule 50 mcg PO DAILY aspirin 81 mg tablet,delayed release (DR/EC) 81 mg PO DAILY metoprolol succinate 100 mg tablet extended release 24 hr 100 mg PO DAILY Brilinta 60 mg tablet 60 mg PO BID Referrals: [facility] [Outside] Print Language: Amharic
--- NOTE | 2025-05-17 11:15 | ECG_ITS ---
Test Reason : DIZZINESS Blood Pressure : */* mmHG Vent. Rate : 73 BPM Atrial Rate : 73 BPM P-R Int : 138 ms QRS Dur : 122 ms QT Int : 430 ms P-R-T Axes : 39 55 -13 degrees QTcB Int : 473 ms Normal sinus rhythm Right bundle branch block ST & T wave abnormality, consider inferior ischemia Abnormal ECG When compared with ECG of 14-Feb-2025 10:50, No significant changes seen Referred By: Sabrina Perdomo Electronically Signed By: Barber Bhandari
[2025-05-17 12:52] LABS: Resp Syncy Virus RNA Qual PCR NEGATIVE (Negative); SARS COV2 PCR INHOUSE NEGATIVE (Negative)
[2025-05-17 13:28] LABS: Hematocrit 35.6 % (42.0-52.0); Hemoglobin 11.7 g/dl (14.0-18.0); Imm Gran Abs Auto 0.03 X10*3/uL (0.00-0.03); Imm Gran Pct Auto 0.3 % (0.0-0.4); Lymphocytes Absolute Auto 0.8 X10*3/uL (1.2-4.9); Mean Corpuscular HGB Conc 32.9 g/dl (31.0-36.0); Mean Corpuscular Hemoglobin 28.0 pg (27.0-33.0); Mean Corpuscular Volume 85.2 fL (80.0-98.0); NRBC Abs Auto 0.000 X10*3/uL (0.0-0.012); NRBC Pct Auto 0.0 /100WBC (0.0-0.2); Platelet Count 269 X10*3/uL (160-400); Red Blood Count 4.18 X10*6/uL (4.60-5.80); White Blood Count 10.9 X10*3/uL (4.8-10.8)
[2025-05-17 14:01] LABS: Alanine Aminotransferase 30 U/L (0-40); Albumin Level 4.1 g/dL (3.5-5.0); Alkaline Phosphatase 89 U/L (39-117); Anion Gap 13 (12-20); Aspartate Amino Transferase 36 U/L (5-37); Blood Urea Nitrogen 23 mg/dL (9-16); Calcium 8.5 mg/dL (8.4-10.2); Carbon Dioxide 22 mmol/L (22-29); Chloride 108 mmol/L (96-108); Creatinine Clr Calc Pharmacy 37.6; Estimated Glomerular Filt Rate 40; Lipase 7 U/L (8-78); Magnesium 2.2 mg/dL (1.6-2.6); Potassium 4.3 mmol/L (3.3-5.1); Sodium 139 mmol/L (135-145); Total Protein 7.0 g/dL (6.5-8.0)
[2025-05-17 15:13] LABS: Troponin-I High Sensitivity 10.1 ng/L (<3.5-35.0)
[2025-05-17 15:15] LABS: MANUAL DIFF FLAG NO
[2025-05-17 15:25] LABS: Reflex Lactate? Lactic Acid Added
[2025-05-17 16:22] LABS: ~Lactic Acid-LAB USE ONLY 1.3 mmol/L (0.5-2.0)
--- NOTE | 2025-05-17 22:06 | PC.NURSE ---
Attempted ambulation trial with walker. Patient utilizes cane at home. Pt stood up briefly but had to sit right back down. Patient states he feels weak and lightheaded. Attempted a second trial after pt had been sitting on side of stretcher for a couple of minutes. Pt unable to take an steps and states dizziness and lightheaded when standing. Pt noted to be unsteady. Reported to Liu KC
[2025-05-17 23:43] LABS: Appearance Urine Clear; Glucose Urine UA 250 mg/dL (Negative); PH 6.0 (5.0-9.0); Specific Gravity - Urine 1.015 (1.005-1.025); UMIC TRIGGER UACC YES
[2025-05-18] LABS: Cannabinoid Screen Urine POSITIVE (Not Detect)
[2025-05-18 04:20] VITALS: BP 147/54; PULSE 63; RESP 12; TEMP 36.9; O2SAT 100
--- NOTE | 2025-05-18 06:04 | PC.NURSE ---
Pt came to the ED for eval of sudden onset of dizziness, weakness, nausea and vomiting that started about 2 hrs before arrival. Pt only had eaten a cookie for breakfast. The cookie may have had marijuanna in it though it woudld have been an unintentional ingestion. Family confirmed there was marijuanna in the cookie. Urine + for THC. Pt lactic elevated at 2.2 and received IVF and repeat lactic down to 1.3. BUN/Creat elevated. Pt slept most of the shift. Attempted a trial ambulation with patient using a walker and he was unable to stand without feeling lightheaded and unsteady. Pt having difficulty with coordination. Pt had to sit right back down and was not able to walk any steps. Pt typically uses a cane at home. Pt A&Ox3. #RH22 PMH: diabetes, glaucoma, hep B, CAD, CKD, AAA, HTN, CVA with left-sided residual deficits, HLD, carotid artery disease on Brilinta/aspirin
[2025-05-18 06:18] VITALS: BP 137/50; PULSE 61; RESP 13; TEMP 36.9; O2SAT 96
[2025-05-18 08:43] VITALS: BP 135/53; PULSE 65; RESP 12; TEMP 36.7; O2SAT 97
--- NOTE | 2025-05-18 10:30 | PC.NURSE ---
pt walked around overflow with cane and tech standby assist. he was unsteady on feet and reports that it is not his baseline ambulation. he states there is no way i can go home like this CUSTOM WOOD STAIR BUILDER notified
[2025-05-18 11:35] LABS: Glucose, Whole Blood 241 mg/dL (60-115)
--- NOTE | 2025-05-18 12:58 | PC.NURSE ---
med rec completed and provider ordered. waiting for pharm verification before admin
--- NOTE | 2025-05-18 13:33 | PC.NURSE ---
pt brought in med list dated 01/01/24 - he states it is in date. pt is well-versed in the medications that he takes. he states he takes novolog 18u 3x daily with meals and Tresiba 32 units long acting in the morning. he also has a simplicity mealtime wearable insulin patch. he states he uses it at meals if needed and administers 2u insulin with it. additionally eye-drops listed on med list he says he does not take and were not added to med rec
[2025-05-18 14:00] VITALS: BP 176/86; PULSE 69; RESP 16; TEMP 36.6; O2SAT 99
[2025-05-18] MEDS: Aspirin Enteric Coated 81 MG TABLET.DR PO (14:38)
[2025-05-18] MEDS: Metoprolol Succinate ER 100 MG TAB.ER.24H PO (15:18)
[2025-05-18] MEDS: Omeprazole/Na Bicarb Oral Susp 20 MG/10 ML UD Cup 10 MG PO (15:18)
[2025-05-18 16:43] LABS: Glucose, Whole Blood 259 mg/dL (60-115)
--- NOTE | 2025-05-18 17:01 | PC.NURSE ---
earlier pt stated that he uses 18u novolog at home TIDWM. Pts dinner time POC is 259. at this time when asked if he would take 18u for this value he says he never actually uses 18u he gives himself much less depending on what he is eating and what is POC is. called pharmacy and contacted provider for order change
--- NOTE | 2025-05-18 17:11 | PHA.MEDREC ---
Pharmacy Consult ? Medication Reconciliation Pharmacy has reviewed the medication reconciliation done by nursing.
--- NOTE | 2025-05-18 20:04 | PC.NURSE ---
Addendum entered by Annie Weber RN 05/18/25 21:30: pharmacy unable to verify entecavir 0.5mg from home meds. sent down verified Brilinta 60 mg tabs and tylenol PM tabs from home, meds placed in pt specific bin in pyxis. Returned pts pillbox to pt, placed with belongings at bedside. Addendum entered by Annie Weber RN 05/18/25 20:24: sent home meds brought in by to pharmacy. Medications in home pillbox and not in original packaging, pharmacy aware. meds secured in bag and labeled with pt sticker and sent to pharmacy. Original Note: assumed care for pt at 1900. pt awake and alert in bed talking with who is bedside. pt in no notable distress at this time and needs met. call archuleta is within reach. plan of care ongoing
[2025-05-18 20:44] LABS: Glucose, Whole Blood 201 mg/dL (60-115)
[2025-05-18 20:46] VITALS: BP 163/63; PULSE 62; RESP 18; TEMP 36.4; O2SAT 98
[2025-05-18 21:13] VITALS: BP 163/63
[2025-05-18] MEDS: TICAGRELOR 60 MG 60 EACH PO (21:13)
[2025-05-19 06:20] VITALS: BP 145/52; PULSE 61; RESP 14; TEMP 36.6; O2SAT 96
[2025-05-19] MEDS: Omeprazole/Na Bicarb Oral Susp 20 MG/10 ML UD Cup 10 MG PO (06:39)
[2025-05-19 07:57] LABS: Glucose, Whole Blood 199 mg/dL (60-115)
[2025-05-19 08:52] VITALS: BP 169/74; PULSE 62
[2025-05-19] MEDS: Aspirin Enteric Coated 81 MG TABLET.DR PO (09:43)
[2025-05-19] MEDS: TICAGRELOR 60 MG 60 EACH PO (09:44)
[2025-05-19 09:45] VITALS: BP 169/74; PULSE 62
[2025-05-19] MEDS: Metoprolol Succinate ER 100 MG TAB.ER.24H PO (09:45)
[2025-05-19 11:17] LABS: Glucose, Whole Blood 224 mg/dL (60-115)
--- NOTE | 2025-05-19 12:13 | MHC.CM.ED ---
Received case management consult over the weekend. Patient came to the ER due to n/v. Work up essentially negative. Physical therapy eval completed. Home with services is recommended. Met with patient in regards to discharge planning. Patient lives with family, uses a cane for mobility and was active with [facility] in the past but not currently. PCP verified. Copy of HCP verified to be on file. Patient requesting referral to [facility]. Sister will transport patient home. Liat DO and Natalie KC aware. Continue to monitor for d/c needs,
[2025-05-19 14:20] VITALS: BP 169/74; PULSE 62; RESP 18; TEMP 36.3; O2SAT 98
== END 2025-05-19 14:21 | disposition home or self-care (01) ==
PROVIDERS: Nurse Practitioner Family; Emergency Provider Emergency Medicine; PCP Family Medicine
DX: R42 Dizziness and giddiness (principal); R11.2 Nausea with vomiting, unspecified; I45.10 Unspecified right bundle-branch block; E11.22 Type 2 diabetes mellitus with diabetic chronic kidney disease; I12.9 Hypertensive chronic kidney disease with stage 1 through stage 4 chronic kidney disease, or unspecified chronic kidney disease; N18.30 Chronic kidney disease, stage 3 unspecified; E78.5 Hyperlipidemia, unspecified; Z96.41 Presence of insulin pump (external) (internal); Z95.5 Presence of coronary angioplasty implant and graft; Z86.73 Personal history of transient ischemic attack (TIA), and cerebral infarction without residual deficits; Z03.818 Encounter for observation for suspected exposure to other biological agents ruled out; Z79.82 Long term (current) use of aspirin; Z79.899 Other long term (current) drug therapy; Z79.4 Long term (current) use of insulin; Z79.02 Long term (current) use of antithrombotics/antiplatelets
CPT/HCPCS: 36415; 76604; 76705; 80053; 80307; 81001; 82947; 83605; 83690; 83735; 84484; 85025; 87637; 93005; 93308; 96361; 96374; 96375; 97162; 99285; 99291; J1200; J2405; J2765

== ENCOUNTER → 2025-05-17 11:15 | Outpatient (BNV) | payer MEDICARE, BC, SELFPAY | PROVIDERS: Emergency Provider Emergency Medicine; PCP Family Medicine; Visit Provider Internal Medicine Cardiovascular Disease | DX: I45.10 Unspecified right bundle-branch block (principal) | CPT/HCPCS: 93010 ==

== ENCOUNTER 2025-06-02 11:13 | Outpatient (AMB) | payer MEDICARE, OTHER, SELFPAY ==
--- NOTE | 2025-06-02 11:16 | A.OFFVIS_ITS ---
Vital Signs 06/02/25 11:21 Height 5 ft 7.72 in Weight 153 lb 10.595 oz BMI 23.6 BP 156/72 H Blood Pressure Location Rt brachial Position Sitting Pulse 72 Pulse Source Pulse Oximeter Pulse Oximetry (%) 98 Oxygen Delivery Method Room Air Intake Visit Reasons: DM Intake Note: Patient present today to follow up on Type 2 Diabetes Mellitus, last seen by Kait Turner on 01/24/2025. Patient receives Dexcom G6 supplies through: [employer] Last Diabetic Eye exam: December or January 2025 at [facility]. Last Podiatry Visit: Does not see a Rubber Cutter Random Glucose: 197 mg/dl HgA1C: 8.5% 06/02/2025 Certified Orthotist Required: No Accompanied by: Self / Same As Patient Allergies No Known Allergies Allergy (Verified 06/02/25 11:21) Medication List - Last Reconciled 06/02/25 by Mikey Ramos MD albuterol sulfate 90 mcg/actuation 2 puffs inhalation Q4H PRN amlodipine 10 mg PO DAILY aspirin 81 mg PO DAILY atorvastatin 80 mg PO BEDTIME 30 days blood-glucose sensor (Dexcom G6 Sensor device) As directed blood-glucose transmitter (Dexcom G6 Transmitter device) As directed bolus insulin pump, 200 unit (CeQur Simplicity) As directed every 4 days cetirizine 10 mg PO DAILY PRN cholecalciferol (vitamin D3) 50 mcg PO DAILY diabetic supplies, miscellan. (CeQur Simplicity [employer]) As directed for use with CeQur insulin patch diphenhydramine-acetaminophen 25-500 mg 2 tabs PO BEDTIME entecavir 0.5 mg PO DAILY escitalopram oxalate 20 mg PO DAILY ezetimibe (Zetia) 10 mg PO DAILY 90 days hydralazine 50 mg See Protocol PO BEDTIME insulin aspart U-100 (Novolog U-100 Insulin aspart) See Protocol sliding scale doses subcut TIDWM insulin degludec (Tresiba FlexTouch U-200 insulin) 32 units subcut DAILY melatonin 5 mg PO BEDTIME metoprolol succinate ER 100 mg PO DAILY omeprazole 10 mg PO DAILY@0630 ticagrelor (Brilinta) 60 mg PO BID HPI Comments Details: 74 year-old male with a past medical history of chronic hepatitis-B, diabetes recently confirmed as type 2 not type 1,, hypertension, HLD, and a Pituitary macroadenoma. He is seen in follow up today. He was last seen by Kait Barron NP on 01/24 25 . He was previously followed by an manager monitoring Dr. Enriquez in [facility] for his diabetes. He has been seen by Barbra ROSE for potential pump December/2023 but had decided to see if Tresiba would lower his A1c. 2019 Negative gada and insulin antibodies, low c peptide 0.77 Outside labs from [facility] reviewed 08/09/2024 Fasting C-peptide 1.6 [place] less than 5 Anti pancreatic islet cell antibodies negative He had tried Ozempic but had diarrhea. Mounjaro 2.5 mg was prescribed but insurance denied. Was on metformin when he was first diagnosed. Was diagnosed approximately 2003 Current diabetes regimen: Tresiba 40 units NovoLog 18 units twice daily with meals (9 clicks) Can dose with CeQur 2 units between meals as needed Had 1 episode of hypoglycemia after taking Mirlande supplement Dexcom download shows he is using the sensor 86% of the time. Average glucose is 192 with G mi of 7.9% and standard deviation 64 and coefficient of variation 33.3%. 48% range with 51% hyperglycemia and 1% hypoglycemia. Pen shows persistent hyperglycemia throughout the day without any post-prandial spikes Denies retinopathy: Has eyes checked yearly, last eye exam:01/2025 HAD cataract surgery, was seen 12/18/24 with f/u in 4 months Denies Neuropathy: no numbness, tingling or crampng. does not see household manager has family member trim nails He is off Lisinopril now per the recommendation of his Battery Container Finishing Hand. He developed orthostatic hypotension in 2020 and was having low BP with LEE/ARB so these were stopped. Sees Dr. Lei who has discussed going to [facility] or [facility]. Has HLD, on Atorvastatin 80 mg PO daily and Zetia 10 mg PO daily. LDL 45 09/16 Has history of CAD with triple vessel PTCA He had a CVA in 2020. He is followed by vascular surgeon at [facility] for AAA and stenosis of the carotid arteries Diet: balanced Exercise:walks with cane Outside labs from [facility] reviewed 08/09/2024 Fasting C-peptide 1.6 [place] less than 5 Anti pancreatic islet cell antibodies negative Total cholesterol 95 LDL 45 PFSH Medical History (Updated 05/20/25 @ 00:02 by Agueda Vogel) Diabetes type 2 T1DM (type 1 diabetes mellitus) Wears dentures Chronic hepatitis B Paralysis of left upper extremity Ambulates with cane Glaucoma Diverticulosis Diabetes Bilateral cataracts Uncontrolled diabetes mellitus with hyperglycemia History of stent insertion of renal artery CAD (coronary artery disease) Carotid artery disease Pituitary adenoma Cerebral microvascular disease Multiple cerebral infarctions Left hemiparesis CKD (chronic kidney disease) stage 3, GFR 30-59 ml/min AAA (abdominal aortic aneurysm) Left renal artery stenosis Hypertensive urgency CKD (chronic kidney disease) stage 3, GFR 30-59 ml/min Peroneal neuropathy Hypertension Encounter for loop recorder check Stroke due to stenosis of right carotid artery Stroke Status post placement of implantable loop recorder CVA (cerebral vascular accident) (~2020) TIA (transient ischemic attack) (~2020) Vitamin D deficiency Pituitary macroadenoma HLD (hyperlipidemia) HTN (hypertension) Surgical History Cataract extraction status of left eye (10/07/24) History of partial colectomy (~1997) History of heart artery stent History of carotid endarterectomy Family History Father CVD (cardiovascular disease) AAA (abdominal aortic aneurysm) Mother No problems noted. Social History Household Members: Family Housing: House Are you a primary acute care occupational therapist to a significant other at home: No Do you presently have visiting nurse or other home services: No Alcohol intake: never Comment: bed rest, unable to ambulate per md Patient Tobacco Use Status: Former Tobacco user Tobacco use type: Cigarette Years Smoked: 50+ Second Hand Smoke Exposure: No Advance Directives Date on File: 01/09/21 service: No Current occupational status: unemployed and retired Physical Exam Const Other: Absence of Cushingoid features. Absence of acromegalic features. Neck exam reveals nl size thyroid about 15 gms. No thyroid nodules palpable. Heart S1 S2, Reg R/R. No M/R G. Skin exam reveals absence of vitiligo or acanthosis nigricans. left hemiparesis, walks with cane. There was no visual field loss by gross confrontation Visual exam of foot performed. No ulcerations or open lesions. No inter digit maceration or fissuring. No onychomycosis, no callouses. Sensation intact to monofilament exam. Vibratory sensation is diminished right foot with 128 Hz tuning fork. Results AMB Hemoglobin A1c AMB Hemoglobin A1c 8.5 % Last Edit by LILLIAN Greco on 06/02/25 11:43 Assessment & Plan Assessment & Plan (1) Uncontrolled diabetes mellitus with hyperglycemia: Code(s): E11.65 - Type 2 diabetes mellitus with hyperglycemia Category: Medical Plan: This 72-year-old white male with reported prior history of Type 2 currently being treated with basal-bolus insulin with fair but adequate glycemic control considering patient's comorbidities and known microvascular macrovascular complications namely CAD, CVA and CKD. Plan is to increase the Tresiba to 45 units and to [address] [facility] ,150 n AM . We will recheck lipid profile and microalbumin to creatinine ratio (2) Pituitary macroadenoma: Code(s): D35.2 - Benign neoplasm of pituitary gland Category: Medical Plan: History of pituitary macroadenoma non secreting. We will repeat MRI of the pituitary with gadolinium if possible considering patient has CKD. If gadolinium could not be used, we will do without gadolinium. We will also recheck a.m. cortisol, TSH and free T4. We will have patient follow up with mass Gen neurosurgery Orders: Orders MR head/brain wo/w con Today D35.2 - Benign neoplasm of pituitary gland Cortisol Random Today D35.2 - Benign neoplasm of pituitary gland Thyroid Stimulating Hormone Today D35.2 - Benign neoplasm of pituitary gland Lipid Panel Today E11.65 - Type 2 diabetes mellitus with hyperglycemia Microalbumin, Random (w Creat) Today E11.65 - Type 2 diabetes mellitus with hyperglycemia Free T4 (Free Thyroxine) Today D35.2 - Benign neoplasm of pituitary gland AMB Hemoglobin A1c Today E11.65 - Type 2 diabetes mellitus with hyperglycemia Coding Level of Care Code Est Pt Level 4 (60824) Complex EM visit Add On G2211 Diagnoses Uncontrolled diabetes mellitus with hyperglycemia E11.65 Pituitary macroadenoma D35.2
[2025-06-02 11:21] VITALS: BP 156/72; PULSE 72; O2SAT 98; BMI 23.6
[2025-06-02 11:34] LABS: Glucose, Whole Blood 197 mg/dL (60-115)
--- OUTSIDE RECORDS SUMMARY | 2025-06-02 11:57 | XMS_ITS | Encounter Summary ---
Author Organization [facility] Address [address] [place] [id number] Phone Care Team Providers Care Grain Processor Name Role Phone Chiquita Alvarado ANIMAL SURGEON Unavailable Unavailable Kitty Champion ANIMAL SURGEON Unavailable Ryder Lou MD Unavailable Ruth Ann Laird MD Unavailable [phone] Ryder Lou MD Primary Care Provider [phone] Ryder Lou MD Primary Care Provider [phone] Encounter Details Date Type Department Care Team (Late st Contact Info) Description 04/18/2019 Procedure Pass [facility] [address] [place] [address] Social History Tobacco Use Types Packs/Day Years Used Date Smoking Tobacco: Every Day Cigarettes 1 30 Alcohol Use Standard Drinks/Week Comments Yes 0 (1 standard drink = 0.6 oz pur e alcohol) beer or mixed drink Sex and Gender Information Value Date Recorded Sex Assigned at Not on file Legal Sex Male 10:00 PM EDT Gender Identity Not on file Sexual Orientation Not on file documented as of this encounter Plan of Treatment Not on file documented as of this encounter Visit Diagnoses Not on filedocumented in this encounter Care Teams Grain Processor Relationship Specialty Start Date End Date Ryder Lou MD [address] [place] [phone] PCP - General 10/26/17 01/04/22 Ryder Lou MD [address] [phone] PCP - General Internal Medicine 01/05/22 Chiquita Alvarado NP [address] [place] [address] Historical LMR Provider 08/07/1710/30 Kitty Champion NP [address] [place] [address] Historical LMR Provider 08/07/17 Ryder Lou MD [address] [place] [phone] Historical LMR Provider 08/07/17 2 Ruth Ann Laird MD [address] [place] [address], [address] [place] [id number] [email or web address] Historical LMR Provider 08/07/17 10/30/21 documented as of this encounter Additional Source Comments The information contained in this document represents components of the legal health record. It is not the complete legal health record.[facility]
--- OUTSIDE RECORDS SUMMARY | 2025-06-02 11:57 | XMS_ITS | Clinical Summary ---
Author Organization [facility]. Address [address] [place] [phone] Phone Care Team Providers Care Grocery Stock Clerk Name Role Phone Afia Cabrera MD Primary Care Provider [phone] Allergies No known active allergies Medications nitroglycerin [...] 1 Active cholecalciferol (VITAMIN D-3) 50 MCG (1999) capsule Take 2,000 Units by mouth 1 [...] DROP TO BOTH EYES TWICE A DAY 1 Active amLODIPine (NORVASC) 10 MG tabletIndicatio ns:Chronic type B viral hepatitis (HCC) Take 1 tablet (10 mg total) by mouth 1 (one) time each day Was change from 2.5 to 5 mg today 04/28/21 by pcp 30 tablet 3 3 Active Active Problems Problem Noted Date Diagnosed Date Hyperglycemia due to type 2 diabetes mellitus Encounter for screening for malignant neoplasm o [...] depressive disorder 04/28/2021 Squamous cell carcinoma of uatsdin 03/26/2021 Hemiplegia and/or hemiparesis following stroke 0 03/18/2021 Abdominal aortic aneurysm 03/08/2021 Acute non-ST segment elevation myocardial infarc tion 03/08/2021 Anal warts 03/08/2021 Condyloma acuminatum of the anogenital region Cataract 03/08/2021 Stage 3a chronic kidney disease 03/08/2021 Chronic type B viral hepatitis 03/08/2021 [...] 06/27/2012 10:38AM BY ZULEIKA KAN MA, ANNOTATION/ADDENDUM Encounters Date Type Department Care Team Description 04/07/2025 3:00 PM EDT Office Visit 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 [address] [place] [phone] Chandrakant Lei MD from Last 3 Months Immunizations Immunization Administration Dates Next Due Influenza (IM) Preservative Free 07/10/2014 Influenza Split High Dose Pr eservative Free IM 07/19/2024,08/16/2019,07/05/2018,06/20 Influenza Split Preservative Free ID 06/28/2013, 06/28/2013 Influenza TIV (IM) 06/27/2012, 2,09/14/2011,09/14 Influenza, Quadrivalent, Pre servative Free 10/14/2016,08/07/2015 Influenza, Quadrivalent, Wit h Preservative 07/04/2022,08/04/2021 Influenza, Unspecified 07/06/2020 Pfizer SARS-COV-2 08/02/2022, 1,01/22/2021,01/01 [...] Sign Reading Time Taken Comments Blood Pressure 140/64 04/07/2025 2:16 PM EDT Pulse 66 04/07/2025 2:16 PM EDT Temperature - - Respiratory Rate - - Oxygen Saturation 98% 04/07/2025 2:16 PM EDT Inhaled Oxygen Concentration - - Weight 71.8 kg (158 lb 6.4 oz) 04/07/2025 2:16 P M EDT Height 172.7 cm (5' 8 ) 04/28/2021 3:26 PM EDT Body Mass Index 24.08 04/28/2021 3:26 PM EDT Plan of Treatment Upcoming Encounters Date Type Department Care Team (Late st Contact Info) Description 10/02/2025 1:00 PM EST Office [facility] [address] [place] [address] Chandrakant Lei MD [address] [facility] [address] [place] [address] Health Maintenance Due Date Last [...] 11/20/2020 Diabetes: Hemoglobin A1C 04/03/2024 01/02/2024, 12/21 Influenza Vaccine (#1) 2025 , 07/04/2022, 08/04/2021, Additional history exists Pneumococcal Vaccine: 50+ Years Completed 04/13/2017, 04/13/2017, 02/09/2016 Pneumococcal Vaccine: Peds ( 0 to 5 Years) and At-Risk Patients (6 to 49 Years) Discontinued 04/13/2017, 04/13/2017, 02/09/2016 Procedures Procedure Name Priority Date/Time Associated Diagnosis Comments SPECIMEN STATUS REPORT Routine 04/01/2025 11:11 AM EDT PTH, INTACT Routine 04/01/2025 11:11 AM EDT MAGNESIUM Routine 04/01/2025 11:11 AM EDT VITAMIN D 25 HYDROXY Routine 04/01/2025 11:11 AM EDT URINE ALBUMIN / CREATININE RATIO Routine 04/01/2025 11:11 AM EDT PROTEIN / CREATININE RATIO, URINE Routine 04/01/2025 11:11 AM EDT RENAL FUNCTION PANEL Routine 04/01/2025 11:11 AM EDT URINALYSIS WITH MICROSCOPIC Routine 04/01/2025 11:11 AM EDT CBC DIFF AMBIGUOUS DEFAULT - DO NOT USE Routine 04/01/2025 11:11 AM EDT MICROSCOPIC EXAMINATION - DO NOT USE Routine 04/01/2025 11:11 AM EDT EXT RESULT ENTRY Routine 01/02/2024 from Last 3 Months or Most Recently Relevant to Health Maintenance Results * SPECIMEN STATUS REPORT (04/01/2025 11:11 AM EDT) Specimen Status Comment [facility] emily Moore Comment: Ambig Abbrev RP10 Default Ambig Abbrev RP10 Default A hand-written panel/profile was received from your office. In accordance with the [facility] Ambiguous Test Code Policy dated April 2003, we have completed your order by using the closest currently or formerly recognized AMA panel. We have assigned Renal Panel (10), Test Code #[id number] to this request. If this is not the testing you wished to receive on this specimen, please contact the [facility] Client Inquiry/Technical Services Department to clarify the test order. We appreciate your business. 04/01/2025 11:1 1 AM EDT 04/01/2025 Chandrakant Lei MD LAB BLOOD ORDERABLES Final Re sult Performing Organization Address City/[facility]/ZIP Co de Phone Number [facility] [address] [place] [address] * (ABNORMAL) Microscopic Examination (04/01/2025 11:11 AM EDT) WBC, Urine >30(A) 0 - 5 /hpf [facility] RBC, Urine None seen 0 - 2 /hpf [facility] Squamous Epithelial, Urine None seen 0 - 10 /hpf [facility] Casts None seen None seen /lpf [facility] Bacteria, Urine None seen None seen/Few [facility] 04/01/2025 11:1 1 AM EDT 04/01/2025 Chandrakant Lei MD LAB MICROBIOLOGY - GENERAL OR DERABLES Final Result Performing Organization Address City/[facility] Co de Phone Number [facility] [address] [place] [address] * CBC Diff Ambiguous Default (04/01/2025 11:11 AM EDT) WBC 8.5 3.4 - 10.8 x10E3/uL [facility] RBC 4.72 4.14 - 5.80 x10E6/uL [facility] Hemoglobin 13.6 13.0 - 17.7 g/dL [facility] Hematocrit 42.8 37.5 - 51.0 % [facility] MCV 91 79 - 97 fL [facility] MCH 28.8 26.6 - 33.0 pg [facility] MCHC 31.8 31.5 - 35.7 g/dL [facility] RDW 13.9 11.6 - 15.4 % [facility] Platelets 274 150 - 450 x10E3/uL [facility] Neutrophils Relative 69 Not Estab. % [facility] Lymphocytes Relative 18 Not Estab. % [facility] Monocytes 9 Not Estab. % [facility] Eosinophils Relative 3 Not Estab. % [facility] Basophils Relative 1 Not Estab. % [facility] Neutrophils Absolute 5.9 1.4 - 7.0 x10E3/uL [facility] Lymphocytes Absolute 1.5 0.7 - 3.1 x10E3/uL [facility] Monocytes Absolute 0.7 0.1 - 0.9 x10E3/uL [facility] Eosinophils Absolute 0.2 0.0 - 0.4 x10E3/uL [facility] Basophils Absolute 0.1 0.0 - 0.2 x10E3/uL [facility] Immature Granulocytes 0 Not Estab. % [facility] Immature Grans (Absolute) 0.0 0.0 - 0.1 x10E3/uL [facility] Comment: A hand-written panel/profile was received from your office. In accordance with the [facility] Ambiguous Test Code Policy dated April 2003, we have assigned CBC with Differential/Platelet, Test Code #375519 to this request. If this is not the testing you wished to receive on this specimen, please contact the [facility] Client Inquiry/ Technical Services Department to clarify the test order. We appreciate your business. 04/01/2025 11:1 1 AM EDT 04/01/2025 Chandrakant Lei MD LAB BLOOD ORDERABLES Final Re sult Performing Organization Address [facility] de Phone Number [facility] [address] [place] [address] * (ABNORMAL) Protein, Total, Random Urine w/Creatinine (Protein/Creat Ratio) (04/01/2025 11:11 AM EDT) Creatinine, Ur 43.2 Not Estab. mg/dL [facility] Protein, Ur 23.0 Not Estab. mg/dL [facility] Urine Protein/Creati nine Ratio 532(H) 0 - 200 mg/g creat [facility] 04/01/2025 11:1 1 AM EDT 04/01/2025 Chandrakant Lei MD LAB URINE ORDERABLES Final Re sult Performing Organization Address [facility] de Phone Number [facility] [address] [place] [address] * (ABNORMAL) Urine Albumin / Creatinine Ratio (04/01/2025 11:11 AM EDT) Albumin, Urine 59.0 Not Estab. ug/mL [facility] Albumin/Creatin ine Ratio 137(H) 0 - 29 mg/g creat [facility] Comment: Normal: 0 - 29 Moderately increased: 30 - 300 Severely increased: >300 04/01/2025 11:1 1 AM EDT 04/01/2025 Chandrakant Lei MD LAB URINE ORDERABLES Final Re sult Performing Organization Address City/[facility]/ZIP Co de Phone Number [facility] [address] [place] [address] * Vitamin D 25 Hydroxy (04/01/2025 11:11 AM EDT) Vitamin D, 25-OH, Total 42.2 30.0 - 100.0 ng/mL [facility] Comment: Vitamin D deficiency has been defined by the [place] of Medicine and an Endocrine Society practice guideline as a level of serum 25-OH vitamin D less than 20 ng/mL (1,2). The Endocrine Society went on to further define vitamin D insufficiency as a level between 21 and 29 ng/mL (2). 1. IOM ([place] of Medicine). 2010. Dietary reference intakes for calcium and D. [place]: The National Academies Press. 2. Brennan MF, Sarah WALLACE, Leslie DIOP, et al. Evaluation, treatment, and prevention of vitamin D deficiency: an Endocrine Society clinical practice guideline. JCEM. 2010; 96(7):1911-30. 04/01/2025 11:1 1 AM EDT 04/01/2025 Chandrakant Lei MD LAB BLOOD ORDERABLES Final Re sult Performing Organization Address City/[facility]/ZIP Co de Phone Number [facility] [address] [place] [address] * (ABNORMAL) Urinalysis with microscopic (04/01/2025 11:11 AM EDT) Specific [place], Urine 1.016 1.005 - 1.030 [facility] pH Urine 6.5 5.0 - 7.5 [facility] Color, Urine Yellow Yellow [facility] [phone] Appearance Urine Clear Clear [facility] WBC Esterase Urine 1+(A) Negative [facility] Protein, Ur 1+(A) Negative/Tra ce [facility] Glucose, Ur 2+(A) Negative [facility] [phone] Ketones, Urine Negative Negative [facility] Blood Urine Negative Negative [facility] Bilirubin Urine Negative Negative [facility] Urobilinogen Urine 0.2 0.2 - 1.0 mg/dL [facility] Nitrite, Urine Negative Negative [facility] Microscopic Examination See below: [facility] Comment:Microscopic was christiane cated and was performed. 04/01/2025 11:1 1 AM EDT 04/01/2025 Chandrakant Lei MD LAB URINE ORDERABLES Final Re sult Performing Organization Address City/[facility]/ZIP Co de Phone Number [facility] [address] [place] [address] * PTH, Intact (04/01/2025 11:11 AM EDT) Pathologist [facility] PTH 54 15 - 65 pg/mL [facility] 04/01/2025 11:1 1 AM EDT 04/01/2025 Chandrakant Lei MD LAB BLOOD ORDERABLES Final Re sult Performing Organization Address [facility]/ZIP Co de Phone Number [facility] [address] [place] [address] * Magnesium (04/01/2025 11:11 AM EDT) Magnesium 2.1 1.6 - 2.3 mg/dL [facility] 04/01/2025 11:1 1 AM EDT 04/01/2025 Chandrakant Lei MD LAB BLOOD ORDERABLES Final Re sult [facility] [address] [place] [address] * (ABNORMAL) Renal Function Panel (04/01/2025 11:11 AM EDT) Glucose 303(H) 70 - 99 mg/dL [facility] BUN 22 8 - 27 mg/dL [facility] Creatinine 1.56(H) 0.76 - 1.27 mg/dL [facility] eGFR CKD-EPI CR 2020 47(L) >59 mL/min/1.7 3 [facility] BUN/Creatinine Ratio 14 10 - 24 [facility] Sodium 137 134 - 144 mmol/L [facility] Potassium 4.6 3.5 - 5.2 mmol/L [facility] Chloride 100 96 - 106 mmol/L [facility] Bicarbonate (CO2) 20 20 - 29 mmol/L [facility] Calcium 9.3 8.6 - 10.2 mg/dL [facility] Albumin 4.5 3.8 - 4.8 g/dL [facility] Phosphorus 3.7 2.8 - 4.1 mg/dL [facility] 04/01/2025 11:1 1 AM EDT 04/01/2025 us Chandrakant Lei MD LAB BLOOD ORDERABLES Final Re sult [facility] [address] [place] [address] * (ABNORMAL) EXT RESULT ENTRY (01/02/2024) Hemoglobin A1C 9.8(A) 4.0 - 6.0 01/02/2024 Historical Provider LAB BLOOD ORDERABLES Johana l Result from Last 3 Months or Most Recently Relevant to Health Maintenance Insurance [facility] Medicare [facility] Medicare Care Teams Grocery Stock Clerk Relationship Specialty Start Date End Date Afia Cabrera MD [address] [phone] PCP - General Family Medicine 04/28/21
--- OUTSIDE RECORDS SUMMARY | 2025-06-02 11:57 | XMS_ITS | Patient Health Record ---
Author Organization [facility] Address [address] [place] [address] Care Team Providers Care Baker Pie Name Role Phone Afia Cabrera Primary Care Provider Mikey Figueredo [phone] Allergies No Known Allergies Results Component Value Reference Range Notes Leukocytes Stool Qualitative Reviewed date:10/03/2024 04:38:18 PM Interpretation: Performing Lab:[address] [address] Notes/Report: Leukocytes Stool Qualitative NEGATIVE NEGATIVE Giardia Ag Stool EIA Reviewed date:10/09/2024 01:43:34 PM Interpretation: Performing Lab:[address] [address] Notes/Report: Giardia Ag Stool EIA SEE NOTE GIARDIA AG, EIA, STOOL Micro Number: [id number] Test Status: Final Specimen Source: Stool Specimen Quality: Adequate Giardia Result 1: Not Detected Reference Range: Not Detected NOTE: Due to intermittent shedding, one negative sample does not necessarily rule out the presence of a parasitic infection. THIS TEST WAS PERFORMED AT: [facility] [address] [place] [phone] LAESSANDRO PATRICK MD Calprotectin, Fecal Reviewed date:10/11/2024 04:04:55 PM Interpretation: Performing Lab:[address] [address] Notes/Report: Calprotectin, Fecal 132 Reference Range: <50 [...] borderline values. THIS TEST WAS PERFORMED AT: [facility] [address] [place] [address] PEDRO TINOCO MD,PHD,DARYL Ova and Parasite Reviewed date:10/09/2024 01:43:13 PM Interpretation: Performing Lab:[address] [address] Notes/Report: Ova and Parasite SEE NOTE OVA AND PARASITES, CONC AND PERM SMEAR Micro Number: [id number] Test Status: Final Specimen Source: Stool Specimen [...] infection. For additional information, please refer to https://education.fashionandyou.com.[employer]/faq/ZRK511 (This link is being provided for informational/ educational purposes only.) THIS TEST WAS PERFORMED AT: [facility] [address] [address] FARHAD HOGAN MD CDiff Gene PCR Reviewed date:10/03/2024 11:05:32 PM Interpretation: Performing Lab:[address] [address] Notes/Report: CDiff Gene PCR NEGATIVE Negative If C. difficile strongly suspected despite one negative test, a second test may be sent vs. empiric treatment for C. difficile infection. GI PANEL Reviewed date:10/04/2024 01:24:21 PM Interpretation: Performing Lab:[address] [address] Notes/Report: Campylobacter Not Detected Not Detect. Plesiomonas [...] is performed by Multiplexed PCR, utilizing the eV[employer] Array. Reason For Referral No Information Medications [...] Problem Status W/U Status Risk Notes Problem 154554779 Encounter for screening for malignant neoplasm of colon (Z12.11) Active confirmed Problem Diarrhea (62848392) Diarrhea (R19.7) Active confirmed Problem 45030751 Weight loss (R63.4) Active confirmed Problem Screening for malignant neoplasm of rectum (454781829) Encounter for screening for malignant neoplasm of rectum (Z12.12) Active confirmed Problem 67827148 Preprocedural examination (Z01.818) Active confirmed Problem Irregular bowel habits (259592996) Irregular bowel habits (R19.8) Active confirmed Problem 24322286 Diarrhea, unspecified type (R19.7) Active confirmed Problem 76608443 Giardia (A07.1) Active confirmed Vital Signs Blood pressure diastolic 00 mm Hg 10/04/2024 Height 68 in 10/04/2024 Blood pressure systolic 00 mm Hg 10/04/2024 Weight 154 lbs 10/04/2024 BMI 23.41 kg/m2 10/04/2024 Encounters Encounter Location Date Provider Diagnosis [facility] [address] [place] [phone] 10/04/2024 Mikey Montenegro Diarrhea, unspecifie d type R19.7 and Irregular bowel habits R19.8 [facility] [address] [place] [phone] 06/04/2024 Mikey Montneegro Diarrhea R19.7 Assessments Encounter Date Diagnosis (ICD [...] OF [place] [address] [place] [address] [id number] AYSHA SHAFFER Self - patient is the insured [facility] [address] [place], [place] [id number] EDMUND AYSHA Self - patient is the [...]
--- OUTSIDE RECORDS SUMMARY | 2025-06-02 11:57 | XMS_ITS | Clinical Summary ---
Author Organization [facility] Address [address] [place] [address] Phone Care Team Providers Care Stockbroker Name Role Phone Ryder Lou MD Primary Care Provider [phone] Medications insulin aspart (NovoLOG) 100 unit/mL injection Inject under the skin 3 (three) times a day with meals. -Administer within 5 minutes of a meal Active amLODIPine (NORVASC) 5 mg tablet Take 1 tablet (5 mg total) by mouth 1 (one) time each day. Active escitalopram (LEXAPRO) 20 mg tablet Take 1 tablet (20 mg total) by mouth 1 (one) time each day. Active melatonin 3 mg tablet Take 1 tablet (3 mg total) by mouth. Active ezetimibe (ZETIA) 10 mg tablet Take 1 tablet (10 mg total) by mouth 1 (one) time each day. Active cholecalciferol (VITAMIN D-3) 50 mcg (2,000 unit) tablet Take 1 tablet (2,000 Units total) by mouth 1 (one) time each day. Active atorvastatin (Lipitor) 10 mg tablet Take 1 tablet (10 mg total) by mouth at bedtime. Active metoprolol tartrate (LOPRESSOR) 50 mg tablet Take 1 tablet (50 mg total) by mouth 2 (two) times a day. Active aspirin 81 mg EC tablet Take 1 tablet (81 mg total) by mouth 1 (one) time each day. Active emtricitabine-ri lpivirine-tenofo vir alafenamide (ODEFSEY) 200-25-25 mg per tablet Take 1 tablet by mouth. 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) 06/01/2021 Acquired melanocytic nevus of retina 05/07/2019 Overview (10/06/2024): OS Cataract 05/07/2019 Chronic hepatitis B ([facility] V24, [facility] V28) 0 05/07/2019 Overview (10/06/2024): Truvada Claudication ([facility] V24) 05/07/2019 Condyloma acuminata 05/07/2019 Genital herpes 05/07/2019 Glaucoma 05/07/2019 Hyperlipidemia 05/07/2019 Hypertension 05/07/2019 Insomnia 05/07/2019 Lumbar radiculopathy 05/07/2019 Myelinated nerve fibers of optic disc, right Coronary artery disease 05/07/2019 Overview (10/06/2024): Old NSTEMI, stents x 3 Retinal artery plaque 05/07/2019 Pituitary mass ([facility] V24) 05/07/2019 Type 1 diabetes mellitus ([facility] V24, [facility] V 28) 05/07/2019 Abdominal aortic aneurysm (A AA) without rupture ([facility] V24) 01/09/2019 Carotid stenosis, bilateral 01/09/2019 PAD (peripheral artery disease) ([facility] V24) Encounters Date Type Department Care Team Description 03/20/2025 2:30 PM EDT Office Visit [facility] - [place] [address] [place] [address] Alena Leal PA Claudication ([facility] V24) (Primary Dx); PAD (peripheral artery disease) ([facility] V24) from Last 3 Months Immunizations Name Administration [...] Abdominal aortic aneurysm (A AA) without rupture ([facility] V24) 01/09/2019 DX:Abdominal aortic aneu rysm (AAA) without rupture (HCC) Acquired melanocytic nevus of retina 05/07/2019 DX:Acquired melanocytic nevus of retina; COMMENT: OS Carotid stenosis, bilateral 01/09/2019 DX:C arotid stenosis, bilateral Cataract 05/07/2019 DX:Cataract Chronic hepatitis B ([facility] V24, [facility] V28) 05/07/2019 DX:Chronic hepatitis B (HCC) ; COMMENT: Truvada Claudication ([facility] V24) 05/07/2019 DX:Cl audication (HCC) Condyloma acuminata [...] disc, right PAD (peripheral artery disea se) ([facility] V24) 01/09/2019 DX:PAD (peripheral artery di sease) (HCC) Pituitary mass ([facility] V24) 05/07/2019 DX: Pituitary mass (HCC) Retinal artery plaque 05/07/2019 DX:Retinal artery plaque Type 1 diabetes mellitus wit h cataract ([facility] V24, [facility] V28) 05/07/2019 DX:Type 1 diabetes mellitus with cataract (HCC) Type 1 diabetes mellitus wit h peripheral vascular disease ([facility] V24, [facility] V28) 05/07/2019 DX:Type 1 diabetes mellitus with peripheral vascular disease (HCC) Family History Medical History Relation Name Comments Alcohol abuse Father throat cancer, [place], AAA Heart attack Maternal Grandfather Other: hyperlipidemia [...] Sign Reading Time Taken Comments Blood Pressure 124/58 03/20/2025 2:18 PM EDT Pulse 55 03/20/2025 2:18 PM EDT Temperature - - Respiratory Rate - - Oxygen Saturation - - Inhaled Oxygen Concentration - - Weight 71.1 kg (156 lb 12.8 oz) 03/20/2025 2:18 PM EDT Height 172.7 cm (5' 8 ) 03/20/2025 2:18 PM EDT Body Mass Index 23.84 03/20/2025 2:18 PM EDT Plan of Treatment Upcoming Encounters Date Type Department Care Team (Late st Contact Info) Description 01/26/2026 1:30 PM EDT Ancillary Procedure [facility] [address] [facility] [address] [place] [address] 03/23/2026 11:30 AM EDT Office Visit Vascular Surgery - [place] [address] [facility] [address] [place] [phone] Alena Leal PA [address] [facility] [address] [place] [address] Health Maintenance Due Date Last Done Comments Diabetes: Annual GFR (Glomerular Filtration Rate) 1951 Diabetes: Annual Foot Exam 12/30/1961 Diabetes: Annual Retina Eye Exam 12/30/1961 Hepatitis A Vaccines (1 of 2 - Risk 2-dose series) 12/30/1970 Hepatitis B Vaccines (1 of 3 - Risk 3-dose series) 2011 Cholesterol Screening (Lipid Panel) 10/01/2022 Colorectal Cancer Screening: Colonoscopy 10/01/2022 Falls Risk Assessment 10/01/2022 Hepatitis C Screening 10/01/2022 Lung Cancer Screening (Low Dose CT) 10/01/2022 Medicare Annual Wellness Visit 10/01/2022 Social Influencers of Health Screening 10/01/2022 Diabetes: Annual Urine Albumin-Creatinine Ratio (uACR) 10/06/2022 Diabetes: Blood Sugar Control Test (HGBA1C) 10/06/2022 Hypertension/CHF/CAD Annual BMP Blood Test 10/06/2022 Depression Screening 10/23/2024 COVID-19 Vaccine ( season) 2025 08/01/2024, 08/17/2023, 08/02/2022, Additional history exists Influenza Vaccine (#1) 2025 , 07/17/2023, 07/04/2022, Additional history exists DTaP,Tdap,and Td Vaccines (3 - Td or Tdap) 04/16/2028 04/16/2018, 04/13/2017 Zoster Vaccines Completed 04/11/2020, 0901/2019, 04/20/2016 Pneumococcal Vaccine: 50+ Years Completed 03/15/2023, 04/13/2017, 04/13/2017, Additional history exists RSV Immunization Adult Patients [...] age to complete this topic Insurance MEDICARE [facility] Care Teams Stockbroker Relationship Specialty Start Date End Date Ryder Lou MD [address] PCP - General Internal Medicine 11/27/18
== END 2025-06-02 12:00 | disposition home or self-care (01) ==
LOC: HO.ENCR 11:14
PROVIDERS: PCP Family Medicine; Visit Provider Internal Medicine Endocrinology, Diabetes & Metabolism
DX: E11.65 Type 2 diabetes mellitus with hyperglycemia (principal); D35.2 Benign neoplasm of pituitary gland
CPT/HCPCS: 99214; G2211

== ENCOUNTER → 2025-06-02 11:13 | Outpatient (BNVA) | payer MEDICARE, BC, SELFPAY | PROVIDERS: PCP Family Medicine; Visit Provider Internal Medicine Endocrinology, Diabetes & Metabolism | DX: E11.65 Type 2 diabetes mellitus with hyperglycemia (principal); D35.2 Benign neoplasm of pituitary gland | CPT/HCPCS: 82947; 83036; 99212 ==

== ENCOUNTER 2025-06-16 11:25 | Outpatient (REF) | payer MEDICARE, BC, SELFPAY ==
--- OUTSIDE RECORDS SUMMARY | 2025-04-15 06:30 | XMS_ITS | Continuity of Care Document ---
Author Organization [facility] Address [address] [place] [address] [address] [place] [phone] Phone Care Team Providers Care Email Production Consultant Name Role Phone Marty HILL, ANABELA, JORDYN, Mikey Unavailable U navailable Procedures Procedure Date Duplex Scan-extrem Veins; Uni/ CT & MA J Advance Directives Directive Yes / No Effective Date File Name No Information Encounters Encounter Description Practice Location Reason(s) For Visit Diagnoses Date Provider Providers Copied on [facility]counter [facility], [address], [place], [id number], [place] tel:[phone] CVR - [place] - [place] Varicose veins of left lower extremity with other complications 5 Marty HILL, ANABELA, JORDYN Jensen. [address] [place] [address] [address], [place], [id number] , [place]. tel:[phone] Referring Provider: Afia Cabrera MD, [facility] [address], [place] [address]. tel:[phone] Family History Family Member Type Diagnosis Age At Onset No Information Payers Payer name Insurance type Covered republican ID Authoriza tion(s) Medicare JENIFER VAZ [id number] Social History Type Description Quantity Date Captured [...]
[2025-06-16 12:54] LABS: Microalbum/Creatinine Ratio Ur 65.8 ug/mg cr (<30)
[2025-06-16 12:55] LABS: Cholesterol 111 mg/dL (<200); HDL Cholesterol 28 mg/dL (>40); Triglycerides 109 mg/dL (<150)
--- OUTSIDE RECORDS SUMMARY | 2025-06-16 12:56 | XMS_ITS | Encounter Summary ---
Author Organization [facility] Address [address] [facility] [address] [place] [address] Phone Care Team Providers Care Americanization Teacher Name Role Phone Chiquita Alvarado TIMBER CRUISER Unavailable Unavailable Kitty Champion TIMBER CRUISER Unavailable Ryder Lou MD Unavailable Ruth Ann Laird MD Unavailable [phone] Ryder Lou MD Primary Care Provider [phone] Ryder Lou MD Primary Care Provider [phone] Encounter Details Date Type Department Care Team (Late st Contact Info) Description 04/18/2019 Procedure Pass [facility] [address] [place] [address] Social History Tobacco Use Types Packs/Day Years [...] on filedocumented in this encounter Care Teams Americanization Teacher Relationship Specialty Start Date End Date Ryder Lou MD [address] [place] [phone] PCP - General 10/26/17 01/04/22 Ryder Lou MD [address] [address] PCP - General Internal Medicine 01/05/22 Chiquita Alvarado NP [address] [place] [address] Historical LMR Provider 08/07/1710/30 Kitty Champion NP [address] [place] [address] Historical LMR Provider 08/07/17 Ryder Lou MD [address] [place] [phone] Historical LMR Provider 08/07/17 2 Ruth Ann Laird MD [address] [place] [address], [address] [place] [id number] [email or web address] Historical LMR Provider 08/07/17 10/30/21 documented as of this encounter Additional Source Comments The information contained in this document represents components of the legal health record. It is not the complete legal health record.[facility]
--- OUTSIDE RECORDS SUMMARY | 2025-06-16 12:56 | XMS_ITS | Clinical Summary ---
Author Organization [facility]. Address [address] [place] [address] Phone Care Team Providers Care Gateman Name Role Phone Afia Cabrera MD Primary Care Provider [phone] Allergies No known active allergies Medications nitroglycerin [...] depressive disorder 04/28/2021 Squamous cell carcinoma of holiness 03/26/2021 Hemiplegia and/or hemiparesis following stroke 0 [...] Office Visit [facility] [address] [address] Chandrakant Lie MD Type 2 diabetes mellitus with diabetic chronic kidney disease (HCC) (Primary Dx); Renal osteodystrophy; Hypertensive renal disease 04/05/2025 Orders Only [facility] [address] [place] [address] Chandrakant Lei MD Stage 3b chronic kidney disease (HCC); 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) 04/01/2025 Orders Only [facility] [address] [place] [phone] Chandrakant Lei MD from Last 3 Months [...] Visit [facility] [address] [place] [address] Chandrakant Lei MD [address] [facility] [address] [place] [address] Health Maintenance Due Date Last [...] (04/01/2025 11:11 AM EDT) Specimen Status Comment [facility] emily Moore Comment: Ambig Abbrev RP10 Default Ambig Abbrev RP10 Default A hand-written panel/profile was received from your office. In accordance with the [facility] Ambiguous Test Code Policy dated April 2003, we have completed your order by using the closest currently or formerly recognized AMA panel. We have assigned Renal Panel (10), Test Code #[id number] to this request. If this is not the testing you wished to receive on this specimen, please contact the [facility] Client Inquiry/Technical Services Department to clarify the test order. We appreciate your business. 04/01/2025 11:1 1 AM EDT 04/01/2025 Chandrakant Lei MD LAB BLOOD ORDERABLES Final Re sult Performing Organization Address City/[facility]/ZIP Co de Phone Number [facility] [address] [place] [address] * (ABNORMAL) Microscopic Examination (04/01/2025 11:11 AM EDT) WBC, Urine >30(A) 0 - 5 /hpf [facility] RBC, Urine None seen 0 - 2 /hpf [facility] Squamous Epithelial, Urine None seen 0 - 10 /hpf [facility] Casts None seen None seen /lpf [facility] Bacteria, Urine None seen None seen/Few [facility] 04/01/2025 11:1 1 AM EDT 04/01/2025 Chandrakant Lei MD LAB MICROBIOLOGY - GENERAL OR DERABLES Final Result Performing Organization Address City/[facility] Co de Phone Number [facility] [address] [place] [address] * CBC Diff Ambiguous Default (04/01/2025 11:11 AM EDT) WBC 8.5 3.4 - 10.8 x10E3/uL [facility] RBC 4.72 4.14 - 5.80 x10E6/uL [facility] Hemoglobin 13.6 13.0 - 17.7 g/dL [facility] Hematocrit 42.8 37.5 - 51.0 % [facility] MCV 91 79 - 97 fL [facility] MCH 28.8 26.6 - 33.0 pg [facility] MCHC 31.8 31.5 - 35.7 g/dL [facility] RDW 13.9 11.6 - 15.4 % [facility] Platelets 274 150 - 450 x10E3/uL [facility] Neutrophils Relative 69 Not Estab. % [facility] Lymphocytes Relative 18 Not Estab. % [facility] Monocytes 9 Not Estab. % [facility] Eosinophils Relative 3 Not Estab. % [facility] Basophils Relative 1 Not Estab. % [facility] Neutrophils Absolute 5.9 1.4 - 7.0 x10E3/uL [facility] Lymphocytes Absolute 1.5 0.7 - 3.1 x10E3/uL [facility] Monocytes Absolute 0.7 0.1 - 0.9 x10E3/uL [facility] Eosinophils Absolute 0.2 0.0 - 0.4 x10E3/uL [facility] Basophils Absolute 0.1 0.0 - 0.2 x10E3/uL [facility] Immature Granulocytes 0 Not Estab. % [facility] Immature Grans (Absolute) 0.0 0.0 - 0.1 x10E3/uL [facility] Comment: A hand-written panel/profile was received from your office. In accordance with the [facility] Ambiguous Test Code Policy dated April 2003, we have assigned CBC with Differential/Platelet, Test Code #[id number] to this request. If this is not the testing you wished to receive on this specimen, please contact the [facility] Client Inquiry/ Technical Services Department to clarify the test order. We appreciate your business. 04/01/2025 11:1 1 AM EDT 04/01/2025 Chandrakant Lei MD LAB BLOOD ORDERABLES Final Re sult Performing Organization Address [facility] de Phone Number [facility] [address] [place] [address] * (ABNORMAL) Protein, Total, Random Urine w/Creatinine (Protein/Creat Ratio) (04/01/2025 11:11 AM EDT) Creatinine, Ur 43.2 Not Estab. mg/dL [facility] Protein, Ur 23.0 Not Estab. mg/dL [facility] Urine Protein/Creati nine Ratio 532(H) 0 - 200 mg/g creat [facility] 04/01/2025 11:1 1 AM EDT 04/01/2025 Chandrakant Lei MD LAB URINE ORDERABLES Final Re sult Performing Organization Address [facility] de Phone Number [facility] [address] [place] [address] * (ABNORMAL) Urine Albumin / Creatinine Ratio (04/01/2025 11:11 AM EDT) Albumin, Urine 59.0 Not Estab. ug/mL [facility] Albumin/Creatin ine Ratio 137(H) 0 - 29 mg/g creat [facility] Comment: Normal: 0 - 29 Moderately increased: 30 - 300 Severely increased: >300 04/01/2025 11:1 1 AM EDT 04/01/2025 Chandrakant Lei MD LAB URINE ORDERABLES Final Re sult Performing Organization Address City/[facility]/ZIP Co de Phone Number [facility] [address] [place] [address] * Vitamin D 25 Hydroxy (04/01/2025 11:11 AM EDT) Vitamin D, 25-OH, Total 42.2 30.0 - 100.0 ng/mL [facility] Comment: Vitamin D deficiency has been defined by the [place] of Medicine and an Endocrine Society practice guideline as a level of serum 25-OH vitamin D less than 20 ng/mL (1,2). The Endocrine Society went on to further define vitamin D insufficiency as a level between 21 and 29 ng/mL (2). 1. IOM ([place] of Medicine). 2010. Dietary reference intakes for calcium and D. [place]: The National Academies Press. 2. Brennan MF, Sarah WALLACE, Leslie DIOP, et al. Evaluation, treatment, and prevention of vitamin D deficiency: an Endocrine Society clinical practice guideline. JCEM. 2010; 96(7):1911-30. 04/01/2025 11:1 1 AM EDT 04/01/2025 Chandrakant Lei MD LAB BLOOD ORDERABLES Final Re sult Performing Organization Address City/[facility]/ZIP Co de Phone Number [facility] [address] [place] [address] * (ABNORMAL) Urinalysis with microscopic (04/01/2025 11:11 AM EDT) Specific [place], Urine 1.016 1.005 - 1.030 [facility] [phone] pH Urine 6.5 5.0 - 7.5 [facility] Color, Urine Yellow Yellow [facility] Appearance Urine Clear Clear [facility] WBC Esterase Urine 1+(A) Negative [facility] Protein, Ur 1+(A) Negative/Tra ce [facility] Glucose, Ur 2+(A) Negative [facility] Ketones, Urine Negative Negative [facility] [phone] Blood Urine Negative Negative [facility] Bilirubin Urine Negative Negative [facility] [phone] Urobilinogen Urine 0.2 0.2 - 1.0 mg/dL [facility] [phone] Nitrite, Urine Negative Negative [facility] Microscopic Examination See below: [facility] Comment:Microscopic was christiane cated and was performed. 04/01/2025 11:1 1 AM EDT 04/01/2025 Chandrakant Lei MD LAB URINE ORDERABLES Final Re sult Performing Organization Address City/[facility]/ZIP Co de Phone Number [facility] [address] [place] [address] * PTH, Intact (04/01/2025 11:11 AM EDT) Pathologist [facility] PTH 54 15 - 65 pg/mL [facility] 04/01/2025 11:1 1 AM EDT 04/01/2025 Chandrakant Lei MD LAB BLOOD ORDERABLES Final Re sult Performing Organization Address [facility]/ZIP Co de Phone Number [facility] [address] [place] [address] * Magnesium (04/01/2025 11:11 AM EDT) Magnesium 2.1 1.6 - 2.3 mg/dL [facility] 04/01/2025 11:1 1 AM EDT 04/01/2025 Chandrakant Lei MD LAB BLOOD ORDERABLES Final Re sult [facility] [address] [place] [address] * (ABNORMAL) Renal Function Panel (04/01/2025 11:11 AM EDT) Glucose 303(H) 70 - 99 mg/dL [facility] BUN 22 8 - 27 mg/dL [facility] Creatinine 1.56(H) 0.76 - 1.27 mg/dL [facility] eGFR CKD-EPI CR 2020 47(L) >59 mL/min/1.7 3 [facility] BUN/Creatinine Ratio 14 10 - 24 [facility] Sodium 137 134 - 144 mmol/L [facility] Potassium 4.6 3.5 - 5.2 mmol/L [facility] Chloride 100 96 - 106 mmol/L [facility] Bicarbonate (CO2) 20 20 - 29 mmol/L [facility] Calcium 9.3 8.6 - 10.2 mg/dL [facility] Albumin 4.5 3.8 - 4.8 g/dL [facility] Phosphorus 3.7 2.8 - 4.1 mg/dL [facility] 04/01/2025 11:1 1 AM EDT 04/01/2025 us Chandrakant Lei MD LAB BLOOD ORDERABLES Final Re sult [facility] [address] [place] [address] * (ABNORMAL) EXT RESULT ENTRY (01/02/2024) Hemoglobin A1C 9.8(A) 4.0 - 6.0 01/02/2024 Historical Provider LAB BLOOD ORDERABLES Johana l Result from Last 3 Months or Most Recently Relevant to Health Maintenance Insurance [facility] Medicare [facility] Medicare Care Teams Gateman Relationship Specialty Start Date End Date Afia Cabrera MD [address] [address] PCP - General Family Medicine 04/28/21
--- OUTSIDE RECORDS SUMMARY | 2025-06-16 12:56 | XMS_ITS | Patient Health Record ---
Author Organization [facility] Address [address] [place] [address] Care Team Providers Care Senior Oracle Soa Developer Name Role Phone Afia Cabrera Primary Care Provider Mikey Figueredo [phone] Allergies No Known Allergies Results Component Value Reference Range Notes Leukocytes Stool Qualitative Reviewed date:10/03/2024 04:38:18 PM Interpretation: Performing Lab:[address] [address] Notes/Report: Leukocytes Stool Qualitative NEGATIVE NEGATIVE Giardia Ag Stool EIA Reviewed date:10/09/2024 01:43:34 PM Interpretation: Performing Lab:[address] [address] Notes/Report: Giardia Ag Stool EIA SEE NOTE GIARDIA AG, EIA, STOOL Micro Number: [id number] Test Status: Final Specimen Source: Stool Specimen Quality: Adequate Giardia Result 1: Not Detected Reference Range: Not Detected NOTE: Due to intermittent shedding, one negative sample does not necessarily rule out the presence of a parasitic infection. THIS TEST WAS PERFORMED AT: [facility] [address] [place] [phone] ALESSANDRO PATRICK MD Calprotectin, Fecal Reviewed date:10/11/2024 04:04:55 PM Interpretation: Performing Lab:[address] [address] Notes/Report: Calprotectin, Fecal 132 Reference Range: <50 [...] borderline values. THIS TEST WAS PERFORMED AT: [facility] [address] [place] [address] PEDRO TINOCO MD,PHD,DARYL Ova and Parasite Reviewed date:10/09/2024 01:43:13 PM Interpretation: Performing Lab:[address] [address] Notes/Report: Ova and Parasite SEE NOTE OVA AND PARASITES, CONC AND PERM SMEAR Micro Number: [id number] Test Status: Final Specimen Source: Stool Specimen [...] infection. For additional information, please refer to https://education.Mygistics.Contapps/faq/REE717 (This link is being provided for informational/ educational purposes only.) THIS TEST WAS PERFORMED AT: [facility] [address] [address] FARHAD HOGAN MD CDiff Gene PCR Reviewed date:10/03/2024 11:05:32 PM Interpretation: Performing Lab:[address] [address] Notes/Report: CDiff Gene PCR NEGATIVE Negative If C. difficile strongly suspected despite one negative test, a second test may be sent vs. empiric treatment for C. difficile infection. GI PANEL Reviewed date:10/04/2024 01:24:21 PM Interpretation: Performing Lab:[address] [address] Notes/Report: Campylobacter Not Detected Not Detect. Plesiomonas [...] is performed by Multiplexed PCR, utilizing the [employer] Array. Reason For Referral No Information Medications [...] Problem Status W/U Status Risk Notes Problem 972745440 Encounter for screening for malignant neoplasm of colon (Z12.11) Active confirmed Problem Diarrhea (R19.7) Active confirmed Problem 99303484 Weight loss (R63.4) Active confirmed Problem Screening for malignant neoplasm of rectum (243910489) Encounter for screening for malignant neoplasm of rectum (Z12.12) Active confirmed Problem 47923361 Preprocedural examination (Z01.818) Active confirmed Problem Irregular bowel habits (033723771) Irregular bowel habits (R19.8) Active confirmed Problem 96544493 Diarrhea, unspecified type (R19.7) Active confirmed Problem 85828018 Giardia (A07.1) Active confirmed Vital Signs Blood pressure diastolic 00 mm Hg 10/04/2024 Height 68 in 10/04/2024 Blood pressure systolic 00 mm Hg 10/04/2024 Weight 154 lbs 10/04/2024 BMI 23.41 kg/m2 10/04/2024 Encounters Encounter Location Date Provider Diagnosis [facility] [address] [place] [phone] 10/04/2024 Mikey Montenegro Diarrhea, unspecifie d type [...] [place] [address] [place] [address] [id number] EDMUND , AYSHA Self - patient is the insured [facility] [address] [place], [place] [id number] EDMUND CHANDLERAYSHA Self - patient is the insured Medical (General) History Medical History History ICD Code Colonoscopy 06-13-2005, 1996, and 01/2016-- negative except for some [...]
--- OUTSIDE RECORDS SUMMARY | 2025-06-16 12:56 | XMS_ITS | Clinical Summary ---
Author Organization [facility] Address [address] [place] [address] Phone Care Team Providers Care Public Area Supervisor Name Role Phone Ryder Lou MD Primary Care Provider [phone] Medications insulin aspart (NovoLOG) 100 unit/mL injection [...] (10/06/2024): OS Cataract 05/07/2019 Chronic hepatitis B ([facility] V24, [facility] V28) 0 05/07/2019 Overview (10/06/2024): Truvada Claudication ([facility] V24) 05/07/2019 Condyloma acuminata 05/07/2019 Genital herpes 05/07/2019 Glaucoma 05/07/2019 Hyperlipidemia 05/07/2019 Hypertension 05/07/2019 Insomnia 05/07/2019 Lumbar radiculopathy 05/07/2019 Myelinated nerve fibers of optic disc, right Coronary artery disease 05/07/2019 Overview (10/06/2024): Old NSTEMI, stents x 3 Retinal artery plaque 05/07/2019 Pituitary mass ([facility] V24) 05/07/2019 Type 1 diabetes mellitus ([facility] V24, [facility] V 28) 05/07/2019 Abdominal aortic aneurysm (A AA) without rupture ([facility] V24) 01/09/2019 Carotid stenosis, bilateral 01/09/2019 PAD (peripheral artery disease) ([facility] V24) Encounters Date Type Department Care Team Description 03/20/2025 2:30 PM EDT Office Visit [facility] [address] [place] [address] Alena Leal PA Claudication ([facility] V24) (Primary Dx); PAD (peripheral artery disease) ([facility] V24) from Last 3 Months Immunizations Name [...] HISTORICAL APPENDECTOMY OTHER SURGICAL HISTORY 1997 PROCEDURE: VT COLECTOMY PARTIAL W/ANASTOMOSIS; COMMENT: sigmoid resection for diverticulitis OTHER SURGICAL HISTORY 07/07/2015 PROCEDURE: HISTORICAL CA BASAL CELL; COMMENT: removed from nose CARDIAC CATHETERIZATION 06/2014 PROCEDURE: HISTORICAL CARDIAC CATH; COMMENT: stents to RCA Medical History Medical History Date Comments Abdominal aortic aneurysm (A AA) without rupture ([facility] V24) 01/09/2019 DX:Abdominal aortic aneu rysm (AAA) without rupture (HCC) Acquired melanocytic nevus of retina 05/07/2019 DX:Acquired melanocytic nevus of retina; COMMENT: OS Carotid stenosis, bilateral 01/09/2019 DX:C arotid stenosis, bilateral Cataract 05/07/2019 DX:Cataract Chronic hepatitis B ([facility] V24, [facility] V28) 05/07/2019 DX:Chronic hepatitis B (HCC) ; COMMENT: Truvada Claudication ([facility] V24) 05/07/2019 DX:Cl audication (HCC) Condyloma acuminata [...] disc, right PAD (peripheral artery disea se) ([facility] V24) 01/09/2019 DX:PAD (peripheral artery di sease) (HCC) Pituitary mass ([facility] V24) 05/07/2019 DX: Pituitary mass (HCC) Retinal artery plaque 05/07/2019 DX:Retinal artery plaque Type 1 diabetes mellitus wit h cataract ([facility] V24, [facility] V28) 05/07/2019 DX:Type 1 diabetes mellitus with cataract (HCC) Type 1 diabetes mellitus wit h peripheral vascular disease ([facility] V24, [facility] V28) 05/07/2019 DX:Type 1 diabetes mellitus with [...] Description 01/26/2026 1:30 PM EDT Ancillary Procedure [facility] 101 [address] [facility] 101 [place] [address] 03/23/2026 11:30 AM EDT Office Visit Vascular Surgery - [place] 300 [facility] 210 [place] [phone] Alena Leal PA 300 [facility] 210 [place] [address] Health Maintenance Due Date Last Done Comments [...] [facility] Care Teams Public Area Supervisor Relationship Specialty Start Date End Date Ryder Lou MD [address] PCP - General Internal Medicine 11/27/18
[2025-06-16 13:02] LABS: Free T4 (Free Thyroxine) 0.80 ng/dL (0.71-1.85); Thyroid Stimulating Hormone 1.65 uIU/mL (0.32-4.0)
== END 2025-06-16 11:26 | disposition home or self-care (01) ==
LOC: HO.LAB 11:25
PROVIDERS: PCP Family Medicine; Visit Provider Internal Medicine Endocrinology, Diabetes & Metabolism
DX: E11.65 Type 2 diabetes mellitus with hyperglycemia (principal); D53.2 Scorbutic anemia
CPT/HCPCS: 36415; 80061; 82043; 82533; 82570; 84439; 84443

== ENCOUNTER → 2025-06-17 10:55 | Outpatient (BNV) | payer MEDICARE, BC, SELFPAY | PROVIDERS: PCP Family Medicine; Visit Provider Radiology Diagnostic Radiology | DX: D35.2 Benign neoplasm of pituitary gland (principal) | CPT/HCPCS: 70553 ==

== ENCOUNTER 2025-06-17 10:58 | Outpatient (REF) | payer MEDICARE, BC, SELFPAY ==
--- OUTSIDE RECORDS SUMMARY | 2025-04-15 06:30 | XMS_ITS | Continuity of Care Document ---
Author Organization [facility] Address [address] [place] [address] Dr [address] [place] [phone] Phone Care Team Providers Care Senior Security Architect Name Role Phone Marty HILL, ANABELA, JORDYN, Mikey Unavailable U navailable Procedures Procedure Date Duplex Scan-extrem Veins; Uni/ CT & MA J Advance Directives Directive Yes / No Effective Date File Name No Information Encounters Encounter Description Practice Location Reason(s) For Visit Diagnoses Date Provider Providers Copied on Encounter [facility], [address], [place], [id number], [place] tel:[phone] CVR - [place] Varicose veins of left lower extremity with other complications 5 Marty HILL, ANABELA, JORDNY Jensen. [address] [facility] [address], [place], [id number] , [place]. tel:[phone] Referring Provider: Afia Cabrera MD, [facility] [address], [place] [address]. tel:[phone] Family History Family Member Type Diagnosis Age At Onset No Information Payers Payer name Insurance type Covered libertarian ID Authoriza tion(s) Medicare JENIFER VAZ [id number] Social History Type Description Quantity Date Captured [...]
--- NOTE | ~2025-06-17 | MR_ITS ---
EXAMINATION: MR BRAIN AND SELLA WITHOUT AND WITH CONTRAST CLINICAL INFORMATION: Benign neoplasm of pituitary gland, follow-up COMPARISON: 06/01/2023, 06/09/2022 TECHNIQUE: Multiplanar, multisequence MRI of the brain and sella was obtained before and after the intravenous administration of 3.5 mL Gadavist. Examination performed on a 1.5 Tayla Siemens high-field unit. FINDINGS: SELLA: There is redemonstration of an expansile mass within the left aspect of the sella turcica currently measuring 1.7 x 1.6 x 1.9 cm (AP, TRV, CC), previously the same when measured similarly. There has been no change in the size or extent of the mass. There is remodeling of the left aspect of the sellar floor, extension into the left cavernous sinus, and partial encasement of the left cavernous carotid artery flow void. The flow void is maintained. The infundibulum is mildly deviated to the right, unchanged. There is no compression or mass effect upon the suprasellar structures or optic apparatus. No extension into the right cavernous sinus. The normal pituitary is compressed to the right of midline. This is unchanged. BRAIN: There is no diffusion restriction. There is no intracranial hemorrhage, acute infarction, mass effect, or gross edema. Ventricles, sulci, and cisterns are normal in size and configuration for patient age. No shift of midline. There is an old right frontoparietal infarct with cystic encephalomalacia and gliosis, unchanged from the prior exams. There is similar wallerian degeneration of the right corticospinal tracts. There are numerous old lacunar type infarcts in the right gangliocapsular region and bilateral thalami. Stable small focus of encephalomalacia involving the right temporal lobe. There are scattered punctate and somewhat confluent foci of white matter T2 hyperintensity in the periventricular, subcortical, and hemispheric deep white matter and juan c. These foci are nonspecific but statistically most likely relate to moderate to advanced small vessel ischemic changes. There is no abnormal intra or extra-axial contrast enhancement. Midline structures appear normally formed. There is thinning of the corpus callosum. There is an old anterior callosal infarct. Cerebellar tonsils are appropriately located. Major flow voids are preserved within the skull base. The globes and orbital contents demonstrate bilateral lens replacements. There are choroidal detachments in the left globe. This was not definitely seen previously. Paranasal sinuses are clear bilaterally. Nasal septum is midline without spur. The mastoids and tympanic cavities are normally aerated. Extracranial soft tissues demonstrate no abnormalities. No suspicious bone marrow changes are evident. Atlantoaxial joint demonstrates mild degenerative changes. There is partial fusion of C3-4. MR/MR head/brain wo/w con IMPRESSION: 1. 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 2. Stable old right frontoparietal ischemic infarct. Wallerian degeneration of the right corticospinal tracts. 3. Stable moderate to advanced changes of small vessel ischemia. Electronically signed by: Liu Mcdermott MD 06/17/2025 01:03 PM EDT
--- OUTSIDE RECORDS SUMMARY | 2025-06-17 11:54 | XMS_ITS | Clinical Summary ---
Author Organization [facility]. 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 [address] [place] [phone] Chandrakant Lei MD from Last 3 Months [...] Visit [facility] [address] [place] [address] Chandrakant Lei MD [address] [facility] [address] [place] [address] Health Maintenance Due Date Last [...] (04/01/2025 11:11 AM EDT) Specimen Status Comment [facility] emily Moore Comment: Ambig Abbrev RP10 Default Ambig Abbrev RP10 Default A hand-written panel/profile was received from your office. In accordance with the [facility] Ambiguous Test Code Policy dated April 2003, we have completed your order by using the closest currently or formerly recognized AMA panel. We have assigned Renal Panel (10), Test Code #[id number] to this request. If this is not the testing you wished to receive on this specimen, please contact the [facility] Client Inquiry/Technical Services Department to clarify the test order. We appreciate your business. 04/01/2025 11:1 1 AM EDT 04/01/2025 Chandrakant Lei MD LAB BLOOD ORDERABLES Final Re sult Performing Organization Address City/[facility]/ZIP Co de Phone Number [facility] [place] [address] [place] [address] * (ABNORMAL) Microscopic Examination (04/01/2025 11:11 AM EDT) WBC, Urine >30(A) 0 - 5 /hpf [facility] RBC, Urine None seen 0 - 2 /hpf [facility] Squamous Epithelial, Urine None seen 0 - 10 /hpf [facility] Casts None seen None seen /lpf [facility] Bacteria, Urine None seen None seen/Few [facility] 04/01/2025 11:1 1 AM EDT 04/01/2025 Chandrakant Lei MD LAB MICROBIOLOGY - GENERAL OR DERABLES Final Result Performing Organization Address City/[facility] Co de Phone Number [facility] [address] [place] [address] * CBC Diff Ambiguous Default (04/01/2025 11:11 AM EDT) WBC 8.5 3.4 - 10.8 x10E3/uL [facility] RBC 4.72 4.14 - 5.80 x10E6/uL [facility] Hemoglobin 13.6 13.0 - 17.7 g/dL [facility] Hematocrit 42.8 37.5 - 51.0 % [facility] MCV 91 79 - 97 fL [facility] MCH 28.8 26.6 - 33.0 pg [facility] MCHC 31.8 31.5 - 35.7 g/dL [facility] RDW 13.9 11.6 - 15.4 % [facility] Platelets 274 150 - 450 x10E3/uL [facility] Neutrophils Relative 69 Not Estab. % [facility] Lymphocytes Relative 18 Not Estab. % [facility] Monocytes 9 Not Estab. % [facility] Eosinophils Relative 3 Not Estab. % [facility] Basophils Relative 1 Not Estab. % [facility] Neutrophils Absolute 5.9 1.4 - 7.0 x10E3/uL [facility] Lymphocytes Absolute 1.5 0.7 - 3.1 x10E3/uL [facility] Monocytes Absolute 0.7 0.1 - 0.9 x10E3/uL [facility] Eosinophils Absolute 0.2 0.0 - 0.4 x10E3/uL [facility] Basophils Absolute 0.1 0.0 - 0.2 x10E3/uL [facility] Immature Granulocytes 0 Not Estab. % [facility] Immature Grans (Absolute) 0.0 0.0 - 0.1 x10E3/uL [facility] Comment: A hand-written panel/profile was received from your office. In accordance with the [facility] Ambiguous Test Code Policy dated April 2003, we have assigned CBC with Differential/Platelet, Test Code #[id number] to this request. If this is not the testing you wished to receive on this specimen, please contact the [facility] Client Inquiry/ Technical Services Department to clarify the test order. We appreciate your business. 04/01/2025 11:1 1 AM EDT 04/01/2025 Chandrakant Lei MD LAB BLOOD ORDERABLES Final Re sult Performing Organization Address [facility] de Phone Number [facility] [address] [place] [address] * (ABNORMAL) Protein, Total, Random Urine w/Creatinine (Protein/Creat Ratio) (04/01/2025 11:11 AM EDT) Creatinine, Ur 43.2 Not Estab. mg/dL [facility] Protein, Ur 23.0 Not Estab. mg/dL [facility] Urine Protein/Creati nine Ratio 532(H) 0 - 200 mg/g creat [facility] 04/01/2025 11:1 1 AM EDT 04/01/2025 Chandrakant Lei MD LAB URINE ORDERABLES Final Re sult Performing Organization Address [facility] de Phone Number [facility] [address] [place] [address] * (ABNORMAL) Urine Albumin / Creatinine Ratio (04/01/2025 11:11 AM EDT) Albumin, Urine 59.0 Not Estab. ug/mL [facility] Albumin/Creatin ine Ratio 137(H) 0 - 29 mg/g creat [facility] Comment: Normal: 0 - 29 Moderately increased: 30 - 300 Severely increased: >300 04/01/2025 11:1 1 AM EDT 04/01/2025 Chandrakant Lei MD LAB URINE ORDERABLES Final Re sult Performing Organization Address City/[facility]/ZIP Co de Phone Number [facility] [place] [address] [place] [address] * Vitamin D 25 Hydroxy (04/01/2025 11:11 AM EDT) Vitamin D, 25-OH, Total 42.2 30.0 - 100.0 ng/mL [facility] Comment: Vitamin D deficiency has been defined by the [place] of Medicine and an Endocrine Society practice guideline as a level of serum 25-OH vitamin D less than 20 ng/mL (1,2). The Endocrine Society went on to further define vitamin D insufficiency as a level between 21 and 29 ng/mL (2). 1. IOM ([place] of Medicine). 2010. Dietary reference intakes for calcium and D. [place]: The National Academies Press. 2. Brennan MF, Sarah WALLACE, Leslie DIOP, et al. Evaluation, treatment, and prevention of vitamin D deficiency: an Endocrine Society clinical practice guideline. JCEM. 2010; 96(7):1911-30. 04/01/2025 11:1 1 AM EDT 04/01/2025 Chandrakant Lei MD LAB BLOOD ORDERABLES Final Re sult Performing Organization Address City/[facility]/ZIP Co de Phone Number [facility] [place] [address] [place] [address] * (ABNORMAL) Urinalysis with microscopic (04/01/2025 11:11 AM EDT) Specific [place], Urine 1.016 1.005 - 1.030 [facility] [phone] pH Urine 6.5 5.0 - 7.5 [facility] Color, Urine Yellow Yellow [facility] [phone] Appearance Urine Clear Clear [facility] [place] WBC Esterase Urine 1+(A) Negative [facility] Protein, Ur 1+(A) Negative/Tra ce [facility] Glucose, Ur 2+(A) Negative [facility] [phone] Ketones, Urine Negative Negative [facility] [place] [phone] Blood Urine Negative Negative [facility] Bilirubin Urine Negative Negative [facility] [place] Urobilinogen Urine 0.2 0.2 - 1.0 mg/dL [facility] [phone] Nitrite, Urine Negative Negative [facility] [place] Microscopic Examination See below: [facility] Comment:Microscopic was christiane cated and was performed. 04/01/2025 11:1 1 AM EDT 04/01/2025 Chandrakant Lei MD LAB URINE ORDERABLES Final Re sult Performing Organization Address City/[facility]/ZIP Co de Phone Number [facility] [address] [place] [address] * PTH, Intact (04/01/2025 11:11 AM EDT) Pathologist [facility] PTH 54 15 - 65 pg/mL [facility] 04/01/2025 11:1 1 AM EDT 04/01/2025 Chandrakant Lei MD LAB BLOOD ORDERABLES Final Re sult Performing Organization Address [facility]/ZIP Co de Phone Number [facility] [address] [place] [address] * Magnesium (04/01/2025 11:11 AM EDT) Magnesium 2.1 1.6 - 2.3 mg/dL [facility] 04/01/2025 11:1 1 AM EDT 04/01/2025 Chandrakant Lei MD LAB BLOOD ORDERABLES Final Re sult [facility] [place] [address] [place] [address] * (ABNORMAL) Renal Function Panel (04/01/2025 11:11 AM EDT) Glucose 303(H) 70 - 99 mg/dL [facility] BUN 22 8 - 27 mg/dL [facility] Creatinine 1.56(H) 0.76 - 1.27 mg/dL [facility] eGFR CKD-EPI CR 2020 47(L) >59 mL/min/1.7 3 [facility] BUN/Creatinine Ratio 14 10 - 24 [facility] Sodium 137 134 - 144 mmol/L [facility] Potassium 4.6 3.5 - 5.2 mmol/L [facility] Chloride 100 96 - 106 mmol/L [facility] Bicarbonate (CO2) 20 20 - 29 mmol/L [facility] Calcium 9.3 8.6 - 10.2 mg/dL [facility] Albumin 4.5 3.8 - 4.8 g/dL [facility] Phosphorus 3.7 2.8 - 4.1 mg/dL [facility] 04/01/2025 11:1 1 AM EDT 04/01/2025 us Chandrakant Lei MD LAB BLOOD ORDERABLES Final Re sult [facility] [address] [place] [address] * (ABNORMAL) EXT RESULT ENTRY (01/02/2024) Hemoglobin A1C 9.8(A) 4.0 - 6.0 01/02/2024 Historical Provider LAB BLOOD ORDERABLES Johana l Result from Last 3 Months or Most Recently Relevant to Health Maintenance Insurance [facility] Medicare [facility] Medicare Care Teams Book Reviewer Relationship Specialty Start Date End Date Afia Cabrera MD [address] [address] PCP - General Family Medicine 04/28/21
--- OUTSIDE RECORDS SUMMARY | 2025-06-17 11:54 | XMS_ITS | Encounter Summary ---
Author Organization [facility] Address [address] [facility] [address] [place] [address] Phone Care Team Providers Care Fiscal Officer Name Role Phone Afia Cabrera MD Primary Care Provider [phone] Encounter Details Date Type Department Care Team (Late Contact Info) Description 12/20/2021 Documentation Only [facility] [address] [facility] [address] [place] [address] Chandrakant Lei MD [address] [address] Social History Tobacco Use Types [...] Department Care Team (Late Contact Info) Description 10/02/2025 1:00 PM EST Office Visit [facility] [address] [place] [address] Chandrakant Lei MD [address] [address] documented as of this encounter Visit Diagnoses Not on filedocumented in this encounter Care Teams Fiscal Officer Relationship Specialty Start Date End Date Afia Cabrera MD [address] [address] PCP - General Family Medicine 04/28/21 documented as of this encounter
--- OUTSIDE RECORDS SUMMARY | 2025-06-17 11:54 | XMS_ITS | Patient Health Record ---
Author Organization [facility] Address [address] [place] [address] Care Team Providers Care Environmental Monitoring Technician Name Role Phone Afia Cabrera Primary Care Provider Mikey Figueredo [phone] Allergies No Known Allergies Results Component Value Reference Range Notes Leukocytes Stool Qualitative Reviewed date:10/03/2024 04:38:18 PM Interpretation: Performing Lab:[address] [address] Notes/Report: Leukocytes Stool Qualitative NEGATIVE NEGATIVE Giardia Ag Stool EIA Reviewed date:10/09/2024 01:43:34 PM Interpretation: Performing Lab:[address] [address] Notes/Report: Giardia Ag Stool EIA SEE NOTE GIARDIA AG, EIA, STOOL Micro Number: [id number] Test Status: Final Specimen Source: Stool Specimen Quality: Adequate Giardia Result 1: Not Detected Reference Range: Not Detected NOTE: Due to intermittent shedding, one negative sample does not necessarily rule out the presence of a parasitic infection. THIS TEST WAS PERFORMED AT: [facility] [address] [place] [address] ALESSANDRO PATRICK MD Calprotectin, Fecal Reviewed date:10/11/2024 04:04:55 PM Interpretation: Performing Lab:[address] [address] Notes/Report: Calprotectin, Fecal 132 Reference Range: <50 [...] borderline values. THIS TEST WAS PERFORMED AT: [facility] [address] [place] [address] PEDRO TINOCO MD,PHD,DARYL Ova and Parasite Reviewed date:10/09/2024 01:43:13 PM Interpretation: Performing Lab:[address] [address] Notes/Report: Ova and Parasite SEE NOTE OVA AND PARASITES, CONC AND PERM SMEAR Micro Number: [id number] Test Status: Final Specimen Source: Stool Specimen [...] infection. For additional information, please refer to [email or web address]/faq/WTI671 (This link is being provided for informational/ educational purposes only.) THIS TEST WAS PERFORMED AT: [address] [employer] [address] [address] FARHAD HOGAN MD CDiff Gene PCR Reviewed date:10/03/2024 11:05:32 PM Interpretation: Performing Lab:[address] [address] Notes/Report: CDiff Gene PCR NEGATIVE Negative If C. difficile strongly suspected despite one negative test, a second test may be sent vs. empiric treatment for C. difficile infection. GI PANEL Reviewed date:10/04/2024 01:24:21 PM Interpretation: Performing Lab:[address] [address] Notes/Report: Campylobacter Not Detected Not Detect. Plesiomonas [...] is performed by Multiplexed PCR, utilizing the I and love and you Array. Reason For Referral No Information Medications [...] Problem Status W/U Status Risk Notes Problem 746792604 Encounter for screening for malignant neoplasm of colon (Z12.11) Active confirmed Problem Diarrhea (78254262) Diarrhea (R19.7) Active confirmed Problem 34811490 Weight loss (R63.4) Active confirmed Problem Screening for malignant neoplasm of rectum (335179138) Encounter for screening for malignant neoplasm of rectum (Z12.12) Active confirmed Problem 42261919 Preprocedural examination (Z01.818) Active confirmed Problem Irregular bowel habits (217239576) Irregular bowel habits (R19.8) Active confirmed Problem 95701989 Diarrhea, unspecified type (R19.7) Active confirmed Problem 94905020 Giardia (A07.1) Active confirmed Vital Signs Blood pressure diastolic 00 mm Hg 10/04/2024 Height 68 in 10/04/2024 Blood pressure systolic 00 mm Hg 10/04/2024 Weight 154 lbs 10/04/2024 BMI 23.41 kg/m2 10/04/2024 Encounters Encounter Location Date Provider Diagnosis [facility] [address] [place] [address] 10/04/2024 Mikey Montenegro Diarrhea, unspecifie d type [...] [place] [address] [place] [address] [id number] AYSHA SHAFFER Self - patient is the insured [facility] [address] [place], [place] [id number] AYSHA SHAFFER Self - patient is the insured Medical [...] Anxiety Diverticulitis with surgery as below Asymptomatic gallstones--pat bjorn is aware and reviewed again at the [...]
--- OUTSIDE RECORDS SUMMARY | 2025-06-17 11:54 | XMS_ITS | Encounter Summary ---
Author Organization [facility] Address [address] [facility] [address] [place] [address] Phone Care Team Providers Care Bodybuilder Name Role Phone Afia Cabrera MD Primary Care Provider [phone] Encounter Details Date Type Department Care Team (Late Contact Info) Description 02/25/2022 Documentation Only [facility] [address] [facility] [address] [place] [address] Chandrakant Lei MD [address] [address] Social History Tobacco Use Types [...] [facility] [address] [place] [address] Chandrakant Lei MD [address] [address] documented as of this encounter Visit Diagnoses Not on filedocumented in this encounter Care Teams Bodybuilder Relationship Specialty Start Date End Date Afia Cabrera MD [address] [facility] [address] [place] [address] PCP - General Family Medicine 04/28/21 documented as of this encounter
--- OUTSIDE RECORDS SUMMARY | 2025-06-17 11:54 | XMS_ITS | Encounter Summary ---
Author Organization [facility] Address [address] [facility] [address] [place] [address] Phone Care Team Providers Care Tile Edger Name Role Phone Afia Cabrera MD Primary Care Provider Encounter Details Date Type Department Care Team (Late Contact Info) Description 03/15/2021 Orders Only [facility] [address] [place] [address] Chandrakant Lei MD [address] [facility] [address] [place] [address] Chronic type B viral hepatitis [...] Upcoming Encounters Date Type Department Care Team ([facility] Contact Info) Description 10/02/2025 1:00 PM EST Office Visit [facility] [address] [place] [address] Chandrakant Lei MD [address] [facility] [address] [place] [address] documented as of this encounter Procedures Procedure Name Priority Date/Time Associated Diagnosis Comments BIOIMPEDANCE DERIVED PHYSIOLOGIC CV ANALYSIS Routine 03/18/2021 10:10 AM EDT Chronic type B viral hepatitis (HCC) Stage 3b chronic kidney disease (HCC) Renal osteodystrophy documented in this encounter Results * Bioimpedance Derived Physiologic CV Analsysis (03/18/2021 10:10 AM EDT) Anatomical Region Laterality Modality Other us Chandrakant Lei MD CV CARDIAC SERVICES PROCEDURE S Final Result documented in this encounter Visit Diagnoses Diagnosis Chronic type B viral hepatitis (HCC) Stage 3b chronic kidney disease (HCC) Renal osteodystrophy documented in this encounter Care Teams Tile Edger Relationship Specialty Start Date End Date Afia Cabrera MD [address] [facility] [address] [place] [address] PCP - General Family Medicine 04/28/21 documented as of this encounter
--- OUTSIDE RECORDS SUMMARY | 2025-06-17 11:54 | XMS_ITS | Encounter Summary ---
Author Organization [facility] Address [address] [facility] [address] [place] [address] Phone Care Team Providers Care Clinical Laboratory Aide Name Role Phone Chiquita Alvarado METALLOGRAPHY TEACHER Unavailable Unavailable Kitty Champion METALLOGRAPHY TEACHER Unavailable [phone] Ryder Lou MD Unavailable [phone] Ruth Ann Laird MD Unavailable [phone] Ryder Lou MD Primary Care Provider [phone] Ryder Lou MD Primary Care Provider [phone] Encounter Details Date Type Department Care Team (Late st Contact Info) Description 04/08/2019 Procedure Pass [facility] [address] [place] [address] Social History Tobacco Use Types Packs/Day Years [...] on filedocumented in this encounter Care Teams Clinical Laboratory Aide Relationship Specialty Start Date End Date Ryder Lou MD [address] [place] [phone] PCP - General 10/26/17 01/04/22 Ryder Lou MD [address] [address] PCP - General Internal Medicine 01/05/22 Chiquita Alvarado NP 164 [place] [address] Historical LMR Provider 08/07/1710/30 Kitty Champion NP 22 [place] [address] Historical LMR Provider 08/07/17 Ryder Lou MD [address] [place] [phone] Historical LMR Provider 08/07/17 2 Ruth Ann Laird MD [address] [place] [address], [address] [place] [address] [email or web address] Historical LMR Provider 08/07/17 10/30/21 documented as of this encounter Additional Source Comments The information contained in this document represents components of the legal health record. It is not the complete legal health record.[facility]
--- OUTSIDE RECORDS SUMMARY | 2025-06-17 11:54 | XMS_ITS | Encounter Summary ---
Author Organization [facility] Address [address] [facility] [address] [place] [address] Phone Care Team Providers Care Hardness Tester Name Role Phone Chiquita Alvarado TALENT ACQUISITION SOURCER Unavailable Unavailable Kitty Champion TALENT ACQUISITION SOURCER Unavailable Ryder Lou MD Unavailable [phone] Ruth Ann Laird MD Unavailable [phone] Ryder Lou MD Primary Care Provider [phone] Ryder Lou MD Primary Care Provider [phone] Encounter Details Date Type Department Care Team (Late st Contact Info) Description 04/18/2019 Procedure Pass [facility] [address] [place] [address] Social History Tobacco Use Types Packs/Day Years [...] on filedocumented in this encounter Care Teams Hardness Tester Relationship Specialty Start Date End Date Ryder Lou MD [address] [place] [phone] PCP - General 10/26/17 01/04/22 Ryder Lou MD [address] [phone] PCP - General Internal Medicine 01/05/22 Chiquita Alvarado NP 164 [place] [address] Historical LMR Provider 08/07/1710/30 Kitty Champion NP 22 [place] [address] Historical LMR Provider 08/07/17 Ryder Lou MD [address] [place] [phone] Historical LMR Provider 08/07/17 2 Ruth Ann Laird MD [address] [place] [address], [address] [place] [address] [email or web address] Historical LMR Provider 08/07/17 10/30/21 documented as of this encounter Additional Source Comments The information contained in this document represents components of the legal health record. It is not the complete legal health record.[facility]
--- OUTSIDE RECORDS SUMMARY | 2025-06-17 11:54 | XMS_ITS | Clinical Summary ---
Author Organization [facility] Address [address] [place] [address] Phone Care Team Providers Care Boiler Mechanic Name Role Phone Ryder Lou MD Primary Care Provider [phone] Medications insulin aspart (NovoLOG) 100 unit/mL injection [...] (10/06/2024): OS Cataract 05/07/2019 Chronic hepatitis B ([facility] V24, [facility] V28) 0 05/07/2019 Overview (10/06/2024): Truvada Claudication ([facility] V24) 05/07/2019 Condyloma acuminata 05/07/2019 Genital herpes 05/07/2019 Glaucoma 05/07/2019 Hyperlipidemia 05/07/2019 Hypertension 05/07/2019 Insomnia 05/07/2019 Lumbar radiculopathy 05/07/2019 Myelinated nerve fibers of optic disc, right Coronary artery disease 05/07/2019 Overview (10/06/2024): Old NSTEMI, stents x 3 Retinal artery plaque 05/07/2019 Pituitary mass ([facility] V24) 05/07/2019 Type 1 diabetes mellitus ([facility] V24, [facility] V 28) 05/07/2019 Abdominal aortic aneurysm (A AA) without rupture ([facility] V24) 01/09/2019 Carotid stenosis, bilateral 01/09/2019 PAD (peripheral artery disease) ([facility] V24) Encounters Date Type Department Care Team Description 03/20/2025 2:30 PM EDT Office Visit [facility] [place] [address] [place] [address] Alena Leal PA Claudication ([facility] V24) (Primary Dx); PAD (peripheral artery disease) ([facility] V24) from Last 3 Months Immunizations Name [...] HISTORICAL APPENDECTOMY OTHER SURGICAL HISTORY 1997 PROCEDURE: CA COLECTOMY PARTIAL W/ANASTOMOSIS; COMMENT: sigmoid resection for diverticulitis OTHER SURGICAL HISTORY 07/07/2015 PROCEDURE: HISTORICAL CA BASAL CELL; COMMENT: removed from nose CARDIAC CATHETERIZATION 06/2014 PROCEDURE: HISTORICAL CARDIAC CATH; COMMENT: stents to RCA Medical History Medical History Date Comments Abdominal aortic aneurysm (A AA) without rupture ([facility] V24) 01/09/2019 DX:Abdominal aortic aneu rysm (AAA) without rupture (HCC) Acquired melanocytic nevus of retina 05/07/2019 DX:Acquired melanocytic nevus of retina; COMMENT: OS Carotid stenosis, bilateral 01/09/2019 DX:C arotid stenosis, bilateral Cataract 05/07/2019 DX:Cataract Chronic hepatitis B ([facility] V24, [facility] V28) 05/07/2019 DX:Chronic hepatitis B (HCC) ; COMMENT: Truvada Claudication ([facility] V24) 05/07/2019 DX:Cl audication (HCC) Condyloma acuminata [...] disc, right PAD (peripheral artery disea se) ([facility] V24) 01/09/2019 DX:PAD (peripheral artery di sease) (HCC) Pituitary mass ([facility] V24) 05/07/2019 DX: Pituitary mass (HCC) Retinal artery plaque 05/07/2019 DX:Retinal artery plaque Type 1 diabetes mellitus wit h cataract ([facility] V24, [facility] V28) 05/07/2019 DX:Type 1 diabetes mellitus with cataract (HCC) Type 1 diabetes mellitus wit h peripheral vascular disease ([facility] V24, [facility] V28) 05/07/2019 DX:Type 1 diabetes mellitus with peripheral vascular disease (HCC) Family History Medical History Relation Name Comments Alcohol abuse Father throat cancer, [place], AAA Heart attack Maternal Grandfather Other: hyperlipidemia [...] Description 01/26/2026 1:30 PM EDT Ancillary Procedure [facility] [address] [facility] [address] [place] [address] 03/23/2026 11:30 AM EDT Office Visit [facility] - [place] [address] [facility] [address] [place] [phone] Alena Leal PA [address] [facility] [address] [place] [address] Health Maintenance Due Date Last Done Comments [...] age to complete this topic Insurance MEDICARE [facility] Care Teams Boiler Mechanic Relationship Specialty Start Date End Date Ryder Lou MD [address] PCP - General Internal Medicine 11/27/18
--- OUTSIDE RECORDS SUMMARY | 2025-06-17 11:55 | XMS_ITS | Clinical Summary ---
Author Organization [facility] Address [address] [facility] [address] [place] [address] Phone Care Team Providers Care Soybean Grower Name Role Phone Ryder Lou MD Primary Care Provider [phone] Allergies No known active allergies Medications aspirin (ASPIR-81) 81 MG EC tablet Take 81 mg by mouth daily. Active atorvastatin (LIPITOR) 80 MG tablet Take 1 tablet by mouth daily. Active ONETOUCH DELICA LANCETS MISC as directed TEST 5 X DAY Active insulin pen needles, disposable, (NOVOFINE 32) 32 gauge x 1/4 Ndle use 1 subcutaneously dx: 250.00 5 times a day 1 Active metoprolol tartrate (LOPRESSOR) 25 MG tablet Take 1 tablet by mouth 2 (two) times a day. Active nitroglycerin (NITROSTAT) 0.4 MG SL tablet 1 tablet under the tongue and allow to dissolve as needed Sublingual Active latanoprost (XALATAN) 0.005 % ophthalmic solution 1 drop into affected eye in the evening Ophthalmic Once a day Active escitalopram oxalate (LEXAPRO) 10 MG tablet Take 1 tablet by mouth daily. Active dorzolamide-ti molol (COSOPT) 22.3-6.8 mg/mL ophthalmic solution 1 drop into affected eye Ophthalmic Twice a day Active diphenhydrAMIN E (BENADRYL ALLERGY) 25 mg tablet Take 1 tablet by mouth as needed. Active blood sugar diagnostic (ONETOUCH ULTRA TEST) Strp strips 1 each by Percutaneous route daily. One touch ultra ,as directed In Vitro 5 times a day 450 strip 3 8 Active insulin detemir U-100 (LEVEMIR FLEXTOUCH U-100 INSULN) 100 unit/mL (3 mL) InPn injection pen INJECT UP TO 55 UNITS SUBCUTANEOUSLY TOTAL DAILY 60 mL 3 8 Active NOVOLOG FLEXPEN U-100 INSULIN 100 unit/mL flexpen INJECT 3 TO 10 UNITS SUBCUTANEOUSLY 3 TIMES A DAY BEFORE MEALS. DX:E10.9 30 mL 3 8 Active hydrALAZINE (APRESOLINE) 50 MG tablet Take 50 mg by mouth 3 (three) times a day. Active amLODIPine (NORVASC) 10 MG tablet Take 10 mg by mouth daily. Active ticagrelor (BRILINTA) 90 mg Tab Take 90 mg by mouth. Active ezetimibe (ZETIA) 10 mg tablet Take 10 mg by mouth daily. Active entecavir (BARACLUDE) 0.5 MG tablet Take 1 mg by mouth daily. Active Active Problems Problem Noted Date Diagnosed Date Type 1 diabetes mellitus without complication Overview (01/26/2018): DIABETES HISTORY Diagnosis - type 1, dx 2006; neg KAMINI 66 2007 Treatment history - had been on oral meds initially but these didn't seem to help, then started intensive insulin therapy Assessment & Plan (01/26/2018 9:36 PM EDT): We discussed an increase in basal insulin which will be helpful in increasing background insulin and may also make mealtime/corrective insulin doses more effective As injections return back to arms/legs with warmer weather, Chandler is advised to monitor blood sugar patterns since insulin doses may need to be adjusted again We revisited insulin pump and CGM technologies, Chandler has not been interested in pump therapy in the past but may be interested now, he will return for diabetes tech group class and also an individual visit with Brianna Carrizales We discussed importance of smoking cessation Encouraged to continue healthy eating and staying active CAD S/P percutaneous coronary angioplasty 2017 Family History Medical History Relation Comments Cardiovascular disease Father Other Father D during cardiac cath; AAA Throat cancer Father Hemochromatosis Maternal Aunt Pancreatic cancer Maternal Aunt Hyperlipidemia Mother Other Mother D - after head i njury; dyslipidemia Relation Status Comments Father Maternal Aunt Mother Social History Tobacco Use Types Packs/Day [...] Sign Reading Time Taken Comments Blood Pressure 120/60 02/16/2016 11:37 AM EDT Pulse 80 02/16/2016 11:37 AM EDT Temperature - - Respiratory Rate - - Oxygen Saturation - - Inhaled Oxygen Concentration - - Weight 76 kg (167 lb 8 oz) 01/26/2018 1:00 PM ED T Height 174 cm (5' 8.5 ) 01/26/2018 1:00 PM EDT Body Mass Index 25.1 01/26/2018 1:00 PM EDT Plan of Treatment Health Maintenance Due Date Last Done Comments BLOOD PRESSURE 1951 DEPRESSION SCREENING 1963 SMOKING Hx and SMOKELESS TOBACCO SCREENING 12/30/1964 PNEUMOCOCCAL VACCINES (50+ years) (1 of 2 - PCV) 12/30/1970 COLOGUARD 12/30/1996 COLONOSCOPY 12/30/1996 COLORECTAL CANCER SCREENING 12/30/1996 FIT TEST 12/30/1996 FOBT 12/30/1996 SIGMOIDOSCOPY 12/30/1996 VIRTUAL COLONOSCOPY 12/30/1996 RSV VACCINE (1 - Risk 60-74 years 1-dose series) 2011 ABDOMINAL AORTIC ANEURYSM (AAA) SCREENING 12/30/2016 DIABETIC EYE EXAM 01/22/2018 HEMOGLOBIN A1C 03/19/2019 12/20/2018, 09/23, 01/26/2018, Additional history exists ZOSTER VACCINES (3 of 3) 06/06/2020 020, 06/26/2019, 04/20/2016 COVID-19 VACCINE ( - season) 2024 01/22/2021, 01/01/2021 URINE MICROALBUMIN/CREATININE RATIO 02/01/2025 02/02/2024 Adult Td,Tdap Booster 04/16/2028 04/16/2018, 017 HEPATITIS C SCREENING Completed 11/01/2018 HEPATITIS A VACCINES Aged Out No long er eligible based on patient's age to complete this topic HIB VACCINES Aged Out No longer eligi ble based on patient's age to complete this topic MENINGOCOCCAL VACCINES (ACWY) Aged Out No longer eligible based on patient's age to complete this topic MENINGOCOCCAL VACCINES (B) Aged Out N o longer eligible based on patient's age to complete this topic Medical Devices Not on file Procedures Procedure Name Priority Date/Time Associated Diagnosis Comments OUTSIDE HEMOGLOBIN A1C Routine 12/20/2018 HEPATITIS C ANTIBODY, QUALITATIVE Routine 11/01/2018 from Last 3 Months or Most Recently Relevant to Health Maintenance Results * Outside HbA1c (12/20/2018) Hemoglobin A1c - External 10 % Historical Provider LAB BLOOD ORDERABLES Johana l Result * Hepatitis C antibody, qualitative (11/01/2018) Historical Provider LAB BLOOD ORDERABLES Edit ed Result - Final from Last 3 Months or Most Recently Relevant to Health Maintenance Insurance MEDICARE PART [facility] & [facility] MEDIC[facility] PART [facility] MEDICARE PART A & [facility] MEDICARE PART A & [facility] MEDICARE PART A & [facility] MEDICARE PART [facility] & [facility] MEDICARE PART A & B [facility] MEDICARE PART A & [facility] Care Teams Soybean Grower Relationship Specialty Start Date End Date Ryder Lou MD [address] [place] [phone] PCP - General Internal Medicine 01/05/22 Additional Source Comments The information contained in this document represents components of the legal health record. It is not the complete legal health record.[facility]
== END 2025-06-17 10:59 | disposition home or self-care (01) ==
LOC: HO.MRI 10:58
PROVIDERS: PCP Family Medicine; Visit Provider Internal Medicine Endocrinology, Diabetes & Metabolism
DX: D35.2 Benign neoplasm of pituitary gland (principal)
CPT/HCPCS: 70553; A9585

== ENCOUNTER 2025-07-10 10:57 | Outpatient (AMB) | payer MEDICARE, BC, SELFPAY ==
--- OUTSIDE RECORDS SUMMARY | 2023-11-26 01:00 | XMS_ITS | Encounter Summary ---
Author Organization [facility] Address [address] [place] [address] Phone Care Team Providers Care Warp Yarn Sorter Name Role Phone Ryder Lou MD Primary Care Provider [phone] Encounter Details Date Type Department Care Team (Late st Contact Info) Description 11/26/2023 Hospital Encounter [facility] [address] [place] [address] Bertha Story MD [address] [place] [phone] [email or web address] Social History Tobacco Use Types Packs/Day Years Used Date Smoking Tobacco: Every Day Cigarettes 1 30 Alcohol Use Standard Drinks/Week Comments Yes 0 (1 standard drink = 0.6 oz pur e alcohol) beer or mixed drink Education Answer Date Recorded Are you interested in more education? Not on gay e 02/17/2023 Are you concerned about learning? Not on file 02/17/2023 No 02/17/2023 No 02/17/2023 Digital Access Answer Date Recorded No 03/18/2023 No 03/18/2023 Reliable internet access at home? Not on file 03/18/2023 Device with a working camera? Not on file Sex and Gender Information Value Date Recorded Sex Assigned at Not on file Legal Sex Male 10:00 PM EDT Gender Identity Not on file Sexual Orientation Not on file documented as of this encounter Plan of Treatment Upcoming Encounters Date Type Department Care Team (Late st Contact Info) Description 07/17/2025 11:00 AM EDT Telemedicine - audio only [facility] [place] [address] [facility], [address] Floor, [address] [place] [address] Bertha Story MD [address] [id number] [email or web address] documented as of this encounter Procedures Procedure Name Priority Date/Time Associated Diagnosis Comments CT HEAD OUTSIDE (NO INTERPRETATION) Routine 11/26/2023 12:00 AM EST documented in this encounter Results * CT Head Outside (No Interpretation) (11/26/2023 12:00 AM EST) Narrative [facility] [place] IMG INTERFACES - 07/08/2025 10:03 AM EDT This study is for PACS storage only and not for interpretation. us Bertha Story MD IMG OUTSIDE IMAGING W/OUT INTE RPRETATION Final Result [facility] [place] IMG INTERFACES documented in this encounter Visit Diagnoses Not on filedocumented in this encounter Care Teams Warp Yarn Sorter Relationship Specialty Start Date End Date Ryder Lou MD [facility] [address] [place] [address] PCP - General Internal Medicine 01/05/22 documented as of this encounter Additional Source Comments The information contained in this document represents components of the legal health record. It is not the complete legal health record.[facility]
--- OUTSIDE RECORDS SUMMARY | 2025-06-17 | XMS_ITS | Encounter Summary ---
Author Organization [facility] Address [address] [place] [address] Phone Care Team Providers Care Public Health Internship Name Role Phone Ryder Lou MD Primary Care Provider [phone] Encounter Details Date Type Department Care Team (Late st Contact Info) Description 06/17/2025 Hospital Encounter [facility] [address] [place] [address] Bertha Story MD [address] [place] [phone] [email or web address] Social History Tobacco Use Types Packs/Day Years [...] 11:00 AM EDT Telemedicine - audio only [facility] [address] [facility], 3rd Floor, [address] [place] [address] Bertha Story MD [address] [phone] [email or web address] documented as of this encounter Procedures Procedure Name Priority Date/Time Associated Diagnosis Comments MRI BRAIN OUTSIDE (NO INTERPRETATION) Routine 06/17/2025 12:00 AM EDT documented in this encounter Results * MRI Brain Outside (No Interpretation) (06/17/2025 12:00 AM EDT) Narrative [facility]G INTERFAC[facility] - 07/08/2025 10:03 AM EDT This study is for PACS storage only and not for interpretation. us Bertha Story MD IMG OUTSIDE IMAGING W/OUT INTE RPRETATION Final Result [facility] documented in this encounter Visit Diagnoses Not on filedocumented in this encounter Care Teams Public Health Internship Relationship Specialty Start Date End Date Ryder Lou MD [address] [place] [address] [address] [place] [phone] PCP - General Internal Medicine 01/05/22 documented as of this encounter Additional Source Comments The information contained in this document represents components of the legal health record. It is not the complete legal health record.[facility]
--- NOTE | 2025-07-10 11:09 | A.OFFVIS_ITS ---
Vital Signs 07/10/25 11:10 Height 5 ft 7 in Weight 157 lb 13.616 oz BMI 24.7 BP 124/54 L Blood Pressure Location Rt brachial Position Sitting Pulse 59 Pulse Source Monitor Intake Visit Reasons: 1 yr f/up Intake Note: 1 year f/u Foot Miter Operator Required: No Accompanied by: Self / Same As Patient Allergies No Known Allergies Allergy (Verified 07/10/25 11:12) Medication List - Last Reconciled 07/10/25 by Emmanuel Valdez MD albuterol sulfate 90 mcg/actuation 2 puffs inhalation Q4H PRN amlodipine 10 mg PO DAILY aspirin 81 mg PO DAILY atorvastatin 80 mg PO BEDTIME 30 days blood-glucose sensor (Dexcom G6 Sensor device) As directed blood-glucose transmitter (Dexcom G6 Transmitter device) As directed bolus insulin pump, 200 unit (CeQur Simplicity) As directed every 4 days cetirizine 10 mg PO DAILY PRN cholecalciferol (vitamin D3) 50 mcg PO DAILY diabetic supplies, Youjiacellan. (CeQur Simplicity Checkering Machine Operator) As directed for use with CeQur insulin patch diphenhydramine-acetaminophen 25-500 mg 2 tabs PO BEDTIME entecavir 0.5 mg PO DAILY escitalopram oxalate 20 mg PO DAILY ezetimibe (Zetia) 10 mg PO DAILY 90 days hydralazine 50 mg See Protocol PO BEDTIME insulin aspart U-100 (Novolog U-100 Insulin aspart) See Protocol sliding scale doses subcut TIDWM insulin degludec (Tresiba FlexTouch U-200 insulin) 32 units subcut DAILY melatonin 5 mg PO BEDTIME metoprolol succinate ER 100 mg PO DAILY omeprazole 10 mg PO DAILY@0630 ticagrelor (Brilinta) 60 mg PO BID HPI Comments Details: Phan comes for follow-up. Recently that was concerned about his medication and his hydralazine has been reduced for the last couple of weeks to 25 mg daily. Pahn has a significant dysautonomia syndrome along with significant diffuse vascular disease that makes his blood pressure extremely labile. He had a very prolonged hospitalization with orthostatic hypotension had taken a long time to adjust his medications at that time in his done well on this combination medication including taking hydralazine at nighttime for supine hypertension. He has tolerated other medications well. He is still gets intermittent episodes of lightheadedness for which she usually sits down. Lelia to drink adequate amount of fluids in the day. Avoid salt intake. Does not have any symptoms of exertional chest pain. No prolonged palpitation irregular heartbeat. Being followed by vascular surgery for his carotid disease. [facility] Medical History (Updated 07/10/25 @ 11:40 by Emmanuel Valdez MD) Status post placement of implantable loop recorder Diabetes type 2 T1DM (type 1 diabetes mellitus) Wears dentures Chronic hepatitis B Paralysis of left upper extremity Ambulates with cane Glaucoma Diverticulosis Diabetes Bilateral cataracts Uncontrolled diabetes mellitus with hyperglycemia History of stent insertion of renal artery CAD (coronary artery disease) Carotid artery disease Pituitary adenoma Cerebral microvascular disease Multiple cerebral infarctions Left hemiparesis CKD (chronic kidney disease) stage 3, GFR 30-59 ml/min AAA (abdominal aortic aneurysm) Left renal artery stenosis Hypertensive urgency CKD (chronic kidney disease) stage 3, GFR 30-59 ml/min Peroneal neuropathy Hypertension Encounter for loop recorder check Stroke due to stenosis of right carotid artery Stroke CVA (cerebral vascular accident) (~2020) TIA (transient ischemic attack) (~2020) Vitamin D deficiency Pituitary macroadenoma HLD (hyperlipidemia) HTN (hypertension) Surgical History Hx of LASIK Hx of cataract surgery Cataract extraction status of left eye (10/07/24) History of partial colectomy (~1997) History of heart artery stent History of carotid endarterectomy Family History Father CVD (cardiovascular disease) AAA (abdominal aortic aneurysm) Mother No problems noted. Social History Household Members: Family Housing: House Are you a primary healthcare technician to a significant other at home: No Do you presently have visiting nurse or other home services: No Alcohol intake: never Comment: bed rest, unable to ambulate per md Patient Tobacco Use Status: Former Tobacco user Tobacco use type: Cigarette Years Smoked: 50+ Second Hand Smoke Exposure: No Advance Directives Date on File: 01/09/21 service: No Current occupational status: unemployed and retired Review of Systems Const Denies daytime sleepiness, Denies difficulty sleeping, Denies snoring, Denies stops breathing during sleep and Denies weakness Card Denies chest pain, Denies rapid heart rate, Denies irregular heart rhythm, Denies claudication, Denies leg edema, Denies lightheadedness, Denies palpitations, Denies dyspnea, Denies dyspnea on exertion, Denies orthopnea, Denies paroxysmal nocturnal dyspnea and Denies slow heart rate Resp Denies cough, Denies dyspnea, Denies dyspnea on exertion and Denies snoring GI Reports no additional complaints, Denies hematochezia, Denies change in stool character and Denies dyspepsia Musc Denies abnormal gait, Denies muscle weakness and Denies numbness Neuro Denies abnormal gait, Denies numbness and Denies weakness Endo Denies palpitations Physical Exam Vital Signs: Last Vital Signs Pulse 59 07/10/25 11:10 BP 124/54 L 07/10/25 11:10 BMI result Body Mass Index 24.7 Last Vital Signs Temp 97.3 F 04/04/21 11:29 Pulse 61 04/04/21 11:29 Resp 18 04/04/21 11:29 BP 180/70 H 04/04/21 11:29 Pulse Ox 98 04/04/21 11:29 Body Mass Index 22.5 Const General: cooperative, comfortable and no acute distress Nutritional Appearance: underweight Orientation/consciousness: patient oriented x3 Limitations: ambulation with cane Neck Neck: Yes trachea midline, Yes supple and Yes no JVD Resp Effort & Inspection: normal respiratory effort Auscultation: clear to auscultation bilaterally Cardio Jugular venous distension: no JVD Palpation: normal PMI Rate: regular rate Rhythm: regular rhythm Heart sounds: S1 normal heart sound present and S2 normal heart sound present Neuro General: patient oriented x3 Extrem General: Yes no clubbing, cyanosis or edema Office Procedures EKG Details: EKGs shows sinus bradycardia with right bundle-branch block with T-wave changes in inferior leads 06643-[id number], Complete Assessment & Plan Assessment & Plan (1) CAD (coronary artery disease): Code(s): I25.10 - Atherosclerotic heart disease of [place] coronary artery without angina pectoris Category: Medical Plan: Significantly diffuse vascular disease in this elderly gentleman with prior CAD with stenting. Carotid endarterectomy. Renal artery stenting. Diffuse peripheral vascular disease as well. He currently has no cardiac symptoms whatsoever. Has done well on dual antiplatelet therapy with no recurrent neurologic events and will continue the same joint terminal attack controller. Dual antiplatelet therapy always poses increased bleeding risk although given his significant vascular disease and prior neurologic events I think this has been beneficial for him with no recurrent events. Continue aggressive risk factor modification with aggressive blood pressure control, see below. Continue high-intensity statin therapy with ezetimibe therapy with target goal LDL less than 55 mg/dL. Continue aggressive diabetes management pursue through your office currently on insulin. Target hemoglobin A1c less than 7%. (2) Dysautonomia orthostatic hypotension syndrome: Code(s): I95.1 - Orthostatic hypotension Category: Medical Plan: Patient was significantly labile blood pressure related to dysautonomia syndrome as well as diffuse and significant vascular disease. This has been quite a challenge managing his blood pressure has done generally well with permissive hypertension up to systolic 150 in his case is acceptable. I would suggest to continue current therapy without lowering his nocturnal hydralazine as he has had significant supine hypertension at nighttime. Continue current therapy with amlodipine as well as metoprolol. Advised to avoid salt loading. Also advised stress mitigation strategies. Advised to maintain adequate hydration. We discussed orthostatic precautions again. Will follow up in the clinic in 1 year's time, sooner p.r.n.. Thank you for allowing me to partake in his care Coding Level of Care Code Est Pt Level 4 (21764) Complex EM visit Add On G2211 Diagnoses CAD (coronary artery disease) I25.10 Dysautonomia orthostatic hypotension syndrome I95.1 CPT Codes EKG - CPT: 63238-[id number], Complete ([id number])
[2025-07-10 11:10] VITALS: BP 124/54; PULSE 59; BMI 24.7
--- OUTSIDE RECORDS SUMMARY | 2025-07-10 13:03 | XMS_ITS | Clinical Summary ---
Author Organization [facility] Address [address] [facility] [address] [place] [address] Phone Care Team Providers Care Public Utilities Sales Representative Name Role Phone Ryder Lou MD Primary Care Provider [phone] Allergies No known active allergies Medications aspirin [...] active CAD S/P percutaneous coronary angioplasty 2017 Encounters Date Type Department Care Team Description 07/08/2025 Ancillary Orders [facility] [address] [place] [address] Bertha Story MD 07/08/2025 Ancillary Orders [facility] [address] [place] [address] Bertha Story MD 06/17/2025 Hospital Encounter [facility] [address] [place] [address] Bertha Story MD from Last 3 Months Family History Medical History Relation Comments Cardiovascular [...] 01/26/2018 1:00 PM EDT Plan of Treatment Upcoming Encounters Date Type Department Care Team (Late st Contact Info) Description 07/17/2025 11:00 AM EDT Telemedicine - audio only [facility] [place] [address] [facility], 3rd Floor, [address] [place] [address] Bertha Story MD [address] [id number] [email or web address] Health Maintenance Due Date Last Done Comments [...] 03/19/2019 12/20/2018, 09/23, 01/26/2018, Additional history exists URINE MICROALBUMIN/CREATININE RATIO 02/01/2025 02/02/2024 INFLUENZA VACCINE (#1) 2025 07/06/2020, 2018 COVID-19 VACCINE ( season) 2025 01/22/2021, 01/01/2021 Adult Td,Tdap Booster 04/16/2028 04/16/2018, 017 HEPATITIS C SCREENING Completed 11/01/2018 ZOSTER VACCINES Completed 04/11/2020, 01/2019, 06/26/2019, Additional history exists HEPATITIS A VACCINES Aged Out No long [...] (NO INTERPRETATION) Routine 06/17/2025 12:00 AM EDT OUTSIDE HEMOGLOBIN A1C Routine 12/20/2018 HEPATITIS C ANTIBODY, QUALITATIVE Routine 11/01/2018 from Last 3 Months or Most Recently Relevant to Health Maintenance Results * MRI Brain Outside (No Interpretation) (06/17/2025 12:00 AM EDT) Narrative [facility] IMG INTERFACES - 07/08/2025 10:03 AM EDT This study is for PACS storage only and not for interpretation. us Bertha Story MD IMG OUTSIDE IMAGING W/OUT INTE RPRETATION Final Result [facility] IMG INTERFACES * Outside HbA1c (12/20/2018) Hemoglobin A1c - External 10 % Historical Provider LAB BLOOD ORDERABLES Johana l Result * Hepatitis C antibody, qualitative (11/01/2018) Historical Provider LAB BLOOD ORDERABLES Edit ed Result - Final from Last 3 Months or Most Recently Relevant to Health Maintenance Insurance MEDICARE PART A & B [facility] Member Subscriber Plan / Payer (Ef fective 2016-Present) Name:Phan Shaffer Member ID:[id number] Relation to Subscriber:Self Name:Chandler Shafferory Subscriber ID:[id number] Payer ID:[id number] Group ID:Not on file Type:Medicare Address: [facility] [address] [place] [id number] [place] [address] FEDERAL MEDICARE PART A & B [facility] MEDICARE PART A & B [facility] MEDICARE PART A & B [facility] MEDICARE PART A & [place] [address] [address] [place] [address] Guided Interventions [facility] MEDICARE PART A & B [employer] [facility] MEDICARE PART A & B [facility] MEDICARE PART A & B [employer] Care Teams Public Utilities Sales Representative Relationship Specialty Start Date End Date Ryder Lou MD [address] [place] [phone] PCP - General Internal Medicine 01/05/22 Additional Source Comments The information contained in this document represents components of the legal health record. It is not the complete legal health record.[facility]
--- OUTSIDE RECORDS SUMMARY | 2025-07-10 13:03 | XMS_ITS | Clinical Summary ---
Author Organization [facility] Address [address] [place] [address] Phone Care Team Providers Care Core Laying Machine Operator Name Role Phone Ryder Lou MD Primary Care Provider [phone] Medications insulin aspart (NovoLOG) 100 unit/mL injection [...] (10/06/2024): OS Cataract 05/07/2019 Chronic hepatitis B ([facility] V24, [facility] V28) 0 05/07/2019 Overview (10/06/2024): Truvada Claudication ([facility] V24) 05/07/2019 Condyloma acuminata 05/07/2019 Genital herpes 05/07/2019 Glaucoma 05/07/2019 Hyperlipidemia 05/07/2019 Hypertension 05/07/2019 Insomnia 05/07/2019 Lumbar radiculopathy 05/07/2019 Myelinated nerve fibers of optic disc, right Coronary artery disease 05/07/2019 Overview (10/06/2024): Old NSTEMI, stents x 3 Retinal artery plaque 05/07/2019 Pituitary mass ([facility] V24) 05/07/2019 Type 1 diabetes mellitus ([facility] V24, [facility] V 28) 05/07/2019 Abdominal aortic aneurysm (A AA) without rupture ([facility] V24) 01/09/2019 Carotid stenosis, bilateral 01/09/2019 PAD (peripheral artery disease) ([facility] V24) Immunizations Name Administration Dates Next Due Pneumococcal conjugate 13 va lent (Prevnar 13, PCV13) 2mo and older 02/09/2016 Pneumococcal, Unspecified 04/13/2017 Tdap Tetanus diptheria acell ular pertussis (Boostrix; Adacel) 7yo and older 04/16/2018,04/13/2017 Zoster Live 04/20/2016 Surgical History Surgery Date Site/Laterality Comments CAROTID ENDARTERECTOMY 07/2009 Right PROCEDURE: HISTORICAL CAROTID ENDART APPENDECTOMY PROCEDURE: HISTORICAL APPENDECTOMY OTHER SURGICAL HISTORY 1997 PROCEDURE: [place] COLECTOMY PARTIAL W/ANASTOMOSIS; COMMENT: sigmoid resection for diverticulitis OTHER SURGICAL HISTORY 07/07/2015 PROCEDURE: HISTORICAL CA BASAL CELL; COMMENT: removed from nose CARDIAC CATHETERIZATION 06/2014 PROCEDURE: HISTORICAL CARDIAC CATH; COMMENT: stents to RCA Medical History Medical History Date Comments Abdominal aortic aneurysm (A AA) without rupture ([facility] V24) 01/09/2019 DX:Abdominal aortic aneu rysm (AAA) without rupture (HCC) Acquired melanocytic nevus of retina 05/07/2019 DX:Acquired melanocytic nevus of retina; COMMENT: OS Carotid stenosis, bilateral 01/09/2019 DX:C arotid stenosis, bilateral Cataract 05/07/2019 DX:Cataract Chronic hepatitis B ([facility]/HCC V24, [facility] V28) 05/07/2019 DX:Chronic hepatitis B (HCC) ; COMMENT: Truvada Claudication ([facility] V24) 05/07/2019 DX:Cl audication (HCC) Condyloma acuminata [...] disc, right PAD (peripheral artery disea se) ([facility] V24) 01/09/2019 DX:PAD (peripheral artery di sease) ([facility]) Pituitary mass ([facility] V24) 05/07/2019 DX: Pituitary mass (HCC) Retinal artery plaque 05/07/2019 DX:Retinal artery plaque Type 1 diabetes mellitus wit h cataract (CMS/HCC V24, [facility] V28) 05/07/2019 DX:Type 1 diabetes mellitus with cataract (HCC) Type 1 diabetes mellitus wit h peripheral vascular disease (CMS/HCC V24, [facility] V28) 05/07/2019 DX:Type 1 diabetes mellitus with [...] Description 01/26/2026 1:30 PM EDT Ancillary Procedure [facility] [address] [facility] [address] [place] [address] 03/23/2026 11:30 AM EDT Office Visit V[facility] [place] [address] [facility] [address] [place] [phone] Alena Leal PA [address] [place] [phone] Health Maintenance Due Date Last Done Comments [...] age to complete this topic Insurance MEDICARE [facility] Care Teams Core Laying Machine Operator Relationship Specialty Start Date End Date Ryder Lou MD [address] PCP - General Internal Medicine 11/27/18
--- OUTSIDE RECORDS SUMMARY | 2025-07-10 13:03 | XMS_ITS | Encounter Summary ---
Author Organization [facility] Address [address] [place] [address] Phone Care Team Providers Care Engine Dispatcher Name Role Phone Ryder Lou MD Primary Care Provider [phone] Encounter Details Date Type Department Care Team (Late st Contact Info) Description 07/08/2025 Ancillary Orders [facility] [address] [place] [address] Bertha Stroy MD [address] [place] [id number] [email or web address] Social History Tobacco Use Types Packs/Day Years [...] Department Care Team (Late Contact Info) Description 07/17/2025 11:00 AM EDT Telemedicine - audio only [facility] Neurosurgery [address] [facility], 3rd Floor, [address] [place] [address] Bertha Story MD [address] [phone] [email or web address] documented as of this encounter Results * MRI Brain Outside (No Interpretation) (06/17/2025 12:00 AM EDT) Narrative [facility] IMG INTERFACES - 07/08/2025 10:03 AM EDT This study is for PACS storage only and not for interpretation. us Bertha Story MD IMG OUTSIDE IMAGING W/OUT INTE RPRETATION Final Result [facility] IMG INTERFACES documented in this encounter Visit Diagnoses Not on filedocumented in this encounter Care Teams Engine Dispatcher Relationship Specialty Start Date End Date Ryder Lou MD [facility] [facility] [address] [place] [address] PCP - General Internal Medicine 01/05/22 documented as of this encounter Additional Source Comments The information contained in this document represents components of the legal health record. It is not the complete legal health record.[facility]
--- OUTSIDE RECORDS SUMMARY | 2025-07-10 13:03 | XMS_ITS | Clinical Summary ---
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 0 [...] Visit [facility] [address] [place], [place] [address] Chandrakant Lei MD [address] [place] [address] Health Maintenance Due Date Last [...] 04/03/2024 01/02/2024, 12/21 Influenza Vaccine (#1) 2025 4, 07/04/2022, 08/04/2021, Additional history exists Pneumococcal Vaccine: [...] Most Recently Relevant to Health Maintenance Insurance [facility] Medicare [facility] Medicare Care Teams Superintendent Nonselling Relationship Specialty Start Date End Date Afia Cabrera MD [address] [phone] PCP - General Family Medicine 04/28/21
--- OUTSIDE RECORDS SUMMARY | 2025-07-10 13:03 | XMS_ITS | Encounter Summary ---
Author Organization [facility] Address [address] [facility] [address] [place] [address] Phone Care Team Providers Care Manager Gift Name Role Phone Afia Cabrera MD Primary Care Provider [phone] Encounter Details Date Type Department Care Team (Late Contact Info) Description 12/20/2021 Documentation Only [facility] [address] [facility] [address] [place] [address] Chandrakant Lei MD [address] [address] Social History Tobacco Use Types [...] Visit [facility] [address] [place] [address] Chandrakant Lei MD [address] [address] documented as of this encounter Visit Diagnoses Not on filedocumented in this encounter Care Teams Manager Gift Relationship Specialty Start Date End Date Afia Cabrera MD [address] [phone] PCP - General Family Medicine 04/28/21 documented as of this encounter
--- OUTSIDE RECORDS SUMMARY | 2025-07-10 13:03 | XMS_ITS | Encounter Summary ---
Author Organization [facility] Address [address] [facility] [address] [place] [address] Phone Care Team Providers Care Painter Airbrush Name Role Phone Chiquita Alvarado FIELD ARTILLERY TARGETING TECHNICIAN Unavailable Unavailable Kitty Champion NP Unavailable Ryder Lou MD Unavailable [phone] Ruth Ann Laird MD Unavailable [phone] Ryder Lou MD Primary Care Provider [phone] Ryder Lou MD Primary Care Provider [phone] Encounter Details Date Type Department Care Team (Late st Contact Info) Description 04/08/2019 Procedure Pass [facility] [address] [place] [address] Social History Tobacco Use Types Packs/Day Years [...] 11:00 AM EDT Telemedicine - audio only [facility] Neurosurgery [address] [facility], 3rd Floor, [address] [place] [address] Bertha Story MD [address] [address] documented as of this encounter Visit Diagnoses Not on filedocumented in this encounter Care Teams Painter Airbrush Relationship Specialty Start Date End Date Ryder Lou MD [address] [phone] PCP - General 10/26/17 01/04/22 Ryder Lou MD [address] [place] [phone] PCP - General Internal Medicine 01/05/22 Chiquita Alvarado NP [address] [place] [address] Historical LMR Provider 08/07/1710/30 Kitty Champion NP [address] [place] [address] Historical LMR Provider 08/07/17 Ryder Lou MD [address] [place] [phone] Historical LMR Provider 08/07/17 2 Ruth Ann Laird MD 22 [facility], [address] [place] [address] Historical LMR Provider 08/07/17 10/30/21 documented as of this encounter Additional Source Comments The information contained in this document represents components of the legal health record. It is not the complete legal health record.[facility]
--- OUTSIDE RECORDS SUMMARY | 2025-07-10 13:03 | XMS_ITS | Encounter Summary ---
Author Organization [facility] Address [address] [facility] [address] [place] [address] Phone Care Team Providers Care Club Attendant Name Role Phone Afia Cabrera MD Primary Care Provider [phone] Encounter Details Date Type Department Care Team (Late Contact Info) Description 02/25/2022 Documentation Only [facility] [address] [facility] 200 [place] [address] Chandrakant Lei MD [address] [address] Social History Tobacco Use Types [...] Visit [facility] [address] [place] [address] Chandrakant Lei MD [address] [phone] documented as of this encounter Visit Diagnoses Not on filedocumented in this encounter Care Teams Club Attendant Relationship Specialty Start Date End Date Afia Cabrera MD [address] [facility] [address] [place] [address] PCP - General Family Medicine 04/28/21 documented as of this encounter
--- OUTSIDE RECORDS SUMMARY | 2025-07-10 13:03 | XMS_ITS | Encounter Summary ---
Author Organization [facility] Address [address] [facility] [address] [place] [address] Phone Care Team Providers Care Legislative Assistant Name Role Phone Afia Cabrera MD Primary Care Provider [phone] Encounter Details Date Type Department Care Team (Late Contact Info) Description 03/15/2021 Orders Only [facility] [address] [place] [address] Chandrakant Lei MD [address] [facility] [address] [place] [address] Chronic type B viral hepatitis [...] Upcoming Encounters Date Type Department Care Team ([facility] Contact Info) Description 10/02/2025 1:00 PM EST Office Visit [facility] [address] [place] [address] Chandrakant Lei MD [address] [facility] [address] [place] [address] documented as of this encounter Procedures Procedure [...] osteodystrophy documented in this encounter Care Teams Legislative Assistant Relationship Specialty Start Date End Date Afia Cabrera MD [address] [facility] [address] [place] [address] PCP - General Family Medicine 04/28/21 documented as of this encounter
--- OUTSIDE RECORDS SUMMARY | 2025-07-10 13:03 | XMS_ITS | Encounter Summary ---
Author Organization [facility] Address [address] [facility] [address] [place] [address] Phone Care Team Providers Care Computer Assembler Name Role Phone Chiquita Alvarado ORDERLIES TEACHER Unavailable Unavailable Kitty Champion NP Unavailable Ryder Lou MD Unavailable [phone] Ruth Ann [place] MD Unavailable [phone] Ryder Lou MD Primary Care Provider [phone] Ryder Lou MD Primary Care Provider [phone] Encounter Details Date Type Department Care Team (Late st Contact Info) Description 04/18/2019 Procedure Pass [facility] Imaging [address] [place] [address] Social History Tobacco Use Types Packs/Day Years [...] 11:00 AM EDT Telemedicine - audio only [facility] Neurosurgery [address] [facility], 3rd Floor, [address] [place] [address] Bertha Story MD [address] [address] documented as of this encounter Visit Diagnoses Not on filedocumented in this encounter Care Teams Computer Assembler Relationship Specialty Start Date End Date Ryder Lou MD [address] [phone] PCP - General 10/26/17 01/04/22 Ryder Lou MD [address] [place] [phone] PCP - General Internal Medicine 01/05/22 Chiquita Alvarado NP 164 [place] [address] Historical LMR Provider 08/07/1710/30 Kitty Champion NP 22 [place] [address] Historical LMR Provider 08/07/17 Ryder Lou MD [address] [place] [phone] Historical LMR Provider 08/07/17 2 Ruth Ann [place] MD 22 [facility], [address] [place] [address] Historical LMR Provider 08/07/17 10/30/21 documented as of this encounter Additional Source Comments The information contained in this document represents components of the legal health record. It is not the complete legal health record.[facility]
--- OUTSIDE RECORDS SUMMARY | 2025-07-10 13:03 | XMS_ITS | Encounter Summary ---
Author Organization [facility] Address [address] [place] [address] Phone Care Team Providers Care Gear Repairer Name Role Phone Ryder Lou MD Primary Care Provider [phone] Encounter Details Date Type Department Care Team (Late st Contact Info) Description 07/08/2025 Ancillary Orders [facility] Imaging [address] [place] [address] Bertha Story MD [address] [place] [phone] [email or web address] Social History Tobacco Use Types Packs/Day Years [...] 11:00 AM EDT Telemedicine - audio only [facility] Neurosurgery [address] [facility], 3rd Floor, [address] [place] [address] Bertha Story MD 15 [facility] 331 [place] [address] [email or web address] documented as of this encounter Results * CT Head Outside (No Interpretation) (11/26/2023 12:00 AM EST) Narrative [facility] IMG INTERFACES - 07/08/2025 10:03 AM EDT This study is for PACS storage only and not for interpretation. us Bertha Story MD IMG OUTSIDE IMAGING W/OUT INTE RPRETATION Final Result [facility] IMG INTERFACES documented in this encounter Visit Diagnoses Not on filedocumented in this encounter Care Teams Gear Repairer Relationship Specialty Start Date End Date Ryder Lou MD [facility] [address] [place] [address] PCP - General Internal Medicine 01/05/22 documented as of this encounter Additional Source Comments The information contained in this document represents components of the legal health record. It is not the complete legal health record.[facility]
== END 2025-07-10 11:45 | disposition home or self-care (01) ==
LOC: HO.HCS 10:58
PROVIDERS: PCP Family Medicine; Visit Provider Internal Medicine Cardiovascular Disease
DX: I25.10 Atherosclerotic heart disease of native coronary artery without angina pectoris (principal); I95.1 Orthostatic hypotension
CPT/HCPCS: 93010; 99214; G2211

== ENCOUNTER → 2025-07-10 10:57 | Outpatient (BNVA) | payer MEDICARE, BC, SELFPAY | PROVIDERS: PCP Family Medicine; Visit Provider Internal Medicine Cardiovascular Disease | DX: I25.10 Atherosclerotic heart disease of native coronary artery without angina pectoris (principal); I95.1 Orthostatic hypotension; R00.1 Bradycardia, unspecified; I45.10 Unspecified right bundle-branch block; R94.31 Abnormal electrocardiogram [ECG] [EKG] | CPT/HCPCS: 93005; 99212 ==

== ENCOUNTER 2025-08-11 13:16 | Emergency (ER) | payer MEDICARE, BC, SELFPAY ==
[2025-08-11 13:23] VITALS: BP 136/64; PULSE 64; O2SAT 98
[2025-08-11 13:30] VITALS: BP 142/67; PULSE 58; RESP 16; TEMP 36.6; BMI 23.4
--- NOTE | 2025-08-11 13:32 | ED.WEAKNESS ---
HPI - Weakness General Chief complaint: Nausea/Vomiting/Diarrhea Stated complaint: vomiting, ?unresponsive for a min Time Seen by Provider: 08/11/25 13:21 Source: patient and EMS Mode of arrival: EMS Limitations: no limitations History of Present Illness ED Provider: HPI Narrative: 74-year-old male with a history of significant dysautonomia syndrome along with significant diffuse vascular disease that makes his blood pressure extremely labile as per cardiology report June this year, he has had his medications adjusted, he is also type 1 diabetic, patient states he woke up today and generally felt unwell he described as dizzy but it sounds like he was presyncopal, he went to sit down into shower and was taking a hot shower he got up, vomited and almost passed out, he did have a helper there was no syncope, no seizures, no loss of bowel or bladder function, he was not hypoglycemic all hypotensive, prior to the episode denied chest pain, shortness of breath, abdominal pain, hematemesis, hematuria. Patient also has a history of stroke 4 years ago, he is not on blood thinners, and he has left upper extremity contracture Related Data Home Medications ?Medication ?Instructions ?Recorded ?Confirmed aspirin 81 mg tablet,delayed 81 mg PO DAILY 09/10/20 07/10/25 release cholecalciferol (vitamin D3) 50 50 mcg PO DAILY 09/10/20 07/10/25 mcg (2,000 unit) capsule melatonin 5 mg tablet 5 mg PO BEDTIME 02/19/21 07/10/25 entecavir 0.5 mg tablet 0.5 mg PO DAILY 05/18/21 07/10/25 cetirizine 10 mg tablet 10 mg PO DAILY PRN allergies 12/05/23 07/10/25 metoprolol succinate 100 mg 100 mg PO DAILY 12/06/24 07/10/25 tablet,extended release 24 hr ticagrelor 60 mg tablet (Brilinta) 60 mg PO BID 12/06/24 07/10/25 albuterol sulfate 90 mcg/actuation 2 puff inhalation Q4H PRN 02/14/25 07/10/25 aerosol inhaler Shortness Of Breath Or Wheezing amlodipine 10 mg tablet 10 mg PO DAILY 02/14/25 07/10/25 diphenhydramine 25 2 tab PO BEDTIME 02/14/25 07/10/25 mg-acetaminophen 500 mg tablet escitalopram oxalate 20 mg tablet 20 mg PO DAILY 02/14/25 07/10/25 omeprazole 20 mg capsule,delayed 10 mg PO DAILY@0630 02/14/25 07/10/25 release insulin aspart U-100 100 unit/mL See Protocol subcut TIDWM 05/18/25 07/10/25 subcutaneous solution (Novolog U-100 Insulin aspart) insulin degludec 200 unit/mL (3 32 unit subcut DAILY 05/18/25 07/10/25 mL) subcutaneous pen (Tresiba FlexTouch U-200 insulin) blood-glucose sensor (Dexcom G6 06/02/25 06/02/25 Sensor device) blood-glucose transmitter (Dexcom 06/02/25 06/02/25 G6 Transmitter device) Previous Rx's ?Medication ?Instructions ?Recorded ezetimibe 10 mg tablet (Zetia) 10 mg PO DAILY 90 days #90 tabs 11/26/20 atorvastatin 80 mg tablet 80 mg PO BEDTIME 30 days #30 tabs 02/12/21 hydralazine 50 mg tablet 50 mg PO BEDTIME #90 tabs 04/07/21 diabetic supplies, [employer]. #1 ea 12/13/24 (CeQur Simplicity Balance Staff Staker) bolus insulin pump, 200 unit 2 #8 ea 03/26/25 unit bolus insulin patch pump, 200 unit, disposable (CeQur Simplicity) Allergies Allergy/AdvReac Type Severity Reaction Status Date / Time No Known Allergies Allergy Verified 08/11/25 13:32 Review of Systems Constitutional: Constitutional: Reports as per [facility] Past Medical History Medical History (Updated 08/11/25 @ 15:53 by Bora Villafana DO) Status post placement of implantable loop recorder Diabetes type 2 T1DM (type 1 diabetes mellitus) Wears dentures Chronic hepatitis B Paralysis of left upper extremity Ambulates with cane Glaucoma Diverticulosis Diabetes Bilateral cataracts Uncontrolled diabetes mellitus with hyperglycemia History of stent insertion of renal artery CAD (coronary artery disease) Carotid artery disease Pituitary adenoma Cerebral microvascular disease Multiple cerebral infarctions Left hemiparesis CKD (chronic kidney disease) stage 3, GFR 30-59 ml/min AAA (abdominal aortic aneurysm) Left renal artery stenosis Hypertensive urgency CKD (chronic kidney disease) stage 3, GFR 30-59 ml/min Peroneal neuropathy Hypertension Encounter for loop recorder check Stroke due to stenosis of right carotid artery Stroke CVA (cerebral vascular accident) (~2020) TIA (transient ischemic attack) (~2020) Vitamin D deficiency Pituitary macroadenoma HLD (hyperlipidemia) HTN (hypertension) Surgical History Hx of LASIK Hx of cataract surgery Cataract extraction status of left eye (10/07/24) History of partial colectomy (~1997) History of heart artery stent History of carotid endarterectomy Family History Family History Father CVD (cardiovascular disease) AAA (abdominal aortic aneurysm) Mother No problems noted. Social History Social History Household Members: Family Housing: House Are you a primary care transition manager to a significant other at home: No Do you presently have visiting nurse or other home services: No Alcohol intake: never Comment: bed rest, unable to ambulate per md Patient Tobacco Use Status: Former Tobacco user Tobacco use type: Cigarette Years Smoked: 50+ Second Hand Smoke Exposure: No Advance Directives: Yes Advance Directives on File: Yes Advance Directives Date on File: 01/09/21 service: No Current occupational status: unemployed and retired Physical Exam Exam: Exam: General: ?Appears of stated age ? ?PERRLA, EOMI, MMM, ? Neck: Supple, no LAD ? ?CV: RRR, no obvious murmurs appreciated ? ?Resp: ?No wheezing rales rhonchi no stridor moving air well ? Abd: ?Bowel sounds are present, no tenderness no rebound no rigidity ? ?MSK: FROM, strength 5/5 all extremities ? Skin: Warm, dry, intact, ? ?Neuro: ?Alert and oriented x3, moving all extremities symmetrically has good strength, left upper extremities contracted, but he has good strength on elbow flexion and extension, distally however at the wrist as where the weakness is most pronounced, no obvious facial asymmetry noted, cranial nerves 2-12 intact, no dysmetria noted, no nystagmus vertical or horizontal Vital Signs: Vital Signs: Last Vital Signs Temp 98 F 08/11/25 13:30 Pulse 58 08/11/25 13:30 Resp 16 08/11/25 13:30 BP 142/67 H 08/11/25 13:30 BMI result Body Mass Index 23.4 Medications Administered Discontinued Medications Generic Name Dose Route Start Last Admin Trade Name Meg PRN Reason Stop Dose Admin Sodium Chloride 1,000 mls @ 999 mls/hr 08/11/25 13:45 08/11/25 13:54 Ns IV 08/11/25 14:45 999 mls/hr .Q1H1M BILLY Administration Medical Decision Making Medical Decision Making [facility] Narrative: 1:38 PM 08/11/2025 (Dr. Bora Villafana): Patient is presenting with presyncope, physical examination there was no evidence of vertigo, he does have history of CAD so we will obtain ECG for underlying dysrhythmia, ACS though he has not had any chest pain or palpitations prior to the episode, I reviewed his cardiology notes and it seems that he has history of labile blood pressures and I suspect this is what was happening, but given his age and risk factors we will make sure this is not related to ACS, no hypoxia tachycardia or PE risk factors elicited, did not feel further studies such as D-dimer or CT angio is indicated, he has left upper extremity contracture which is his baseline without new neurologic deficits do not feel that further imaging such as CT is indicated Differential Diagnosis Differential Diagnoses: The differential diagnosis associated with the presentation includes (ACS, PE, cardiac dysrhythmia, anemia, cardiac tamponade, AAA rupture, vasovagal syncope, orthostatic syncope, medication induced syncope) Admission/Observation Consideration of admission/observation: Escalation of care including admission/observation considered Lab Data [facility] Lab Attestation statement: I reviewed the patient's lab results. 08/11/25 13:52 08/11/25 14:48 Labs: Lab Results 08/11/25 08/11/25 Range/Units 13:52 14:48 WBC 10.2 (4.8-10.8) X10*3/uL RBC 4.75 (4.60-5.80) X10*6/uL Hgb 13.0 L (14.0-18.0) g/dl Hct 41.2 L (42.0-52.0) % MCV 86.7 (80.0-98.0) fL MCH 27.4 (27.0-33.0) pg MCHC 31.6 (31.0-36.0) g/dl RDW 15.1 (11.0-16.0) % Plt Count 266 (160-400) X10*3/uL MPV 9.0 L (9.4-12.4) fL Immature Gran % (Auto) 0.4 (0.0-0.4) % Neut % (Auto) 73.6 H (45-73) % Lymph % (Auto) 12.6 L (20-40) % Mclean % (Auto) 9.8 (2-11) % Eos % (Auto) 2.8 (0-4) % Baso % (Auto) 0.8 (0-2) % Lymph # (Auto) 1.3 (1.2-4.9) X10*3/uL Mclean # (Auto) 1.0 (0.1-1.2) X10*3/uL Eos # (Auto) 0.3 (0.0-0.4) X10*3/uL Baso # (Auto) 0.1 (0.0-0.2) X10*3/uL Abs Immat Gran (auto) 0.04 H (0.00-0.03) X10*3/uL Absolute Neuts (auto) 7.5 (2.0-8.3) x10*3/uL Absolute Nucleated RBC 0.000 (0.0-0.012) X10*3/uL Nucleated RBC % (auto) 0.0 (0.0-0.2) /100WBC Sodium 140 (135-145) mmol/L Potassium 4.1 (3.3-5.1) mmol/L Chloride 107 (96-108) mmol/L Carbon Dioxide 24 (22-29) mmol/L Anion Gap 13 (12-20) BUN 16 (9-16) mg/dL Creatinine 1.75 H (0.5-1.4) mg/dL Estim Creat Clear Calc 36.3 Estimated GFR 38 Random Glucose 97 (60-115) mg/dL Calcium 8.9 (8.4-10.2) mg/dL Total Bilirubin 0.4 (0.0-1.0) mg/dL AST 29 (5-37) U/L ALT 20 (0-40) U/L Alkaline Phosphatase 90 (39-117) U/L Troponin I High Sens 15.2 D (<3.5-35.0) ng/L Total Protein 7.2 (6.5-8.0) g/dL Albumin 4.0 (3.5-5.0) g/dL Independent Interpretation I performed an independent interpretation of an: EKG Independent Historian Clinical information obtained from an independent historian. History obtained from or confirmed by: EMS External Record Review External record reviewed: Office record Tests considered The following testing was considered but not selected: CT brain CT angio chest Chronic Conditions Patient?s care impacted by: Diabetes Discharge Plan Discharge Clinical Impression: Syncope Patient Disposition: Home, Self-Care Additional Instructions: Your blood pressure has remained stable, I did review your history and you have history of orthostatic hypotension, and I suspect that is what was happening during your symptoms throughout the day your blood pressure was low when you went and took a hot shower your blood pressure dropped even more, your blood work shows chronic kidney disease without much change, you did receive fluids, EKG cardiac enzymes the rest of the workup has been reassuring, I do not suggest any medication changes at this time I do recommend you follow up with the PCP any other issues or concerns come back to the ER Prescriptions: No Action ezetimibe [Zetia] 10 mg tablet 10 mg PO DAILY 90 Days Qty: 90 1RF atorvastatin 80 mg tablet 80 mg PO BEDTIME 30 Days Qty: 30 11RF (DME) CeQur Simplicity Balance Staff Staker Misc See Rx Instructions .ROUTE .MEDSUPPLY Qty: 1 1RF Rx Instructions: As directed for use with CeQur insulin patch (DME) CeQur Simplicity 2 unit device See Rx Instructions .ROUTE .MEDSUPPLY Qty: 8 11RF Rx Instructions: As directed every 4 days hydralazine 50 mg Tablet 50 mg PO BEDTIME Qty: 90 0RF Protocol: Hold for SBP< HOLD for SBP < : 90 melatonin 5 mg Tablet 5 mg PO BEDTIME escitalopram oxalate 20 mg tablet 20 mg PO DAILY amlodipine 10 mg tablet 10 mg PO DAILY omeprazole 20 mg capsule,delayed release(DR/EC) 10 mg PO DAILY@0630 diphenhydramine-acetaminophen 25-500 mg Tablet 2 tab PO BEDTIME albuterol sulfate 90 mcg/actuation Hfa Aerosol Inhaler 2 puff INHALATION Q4H PRN (Reason: Shortness Of Breath Or Wheezing) insulin degludec [Tresiba FlexTouch U-200] 200 unit/mL (3 mL) insulin pen 32 unit subcut DAILY insulin aspart U-100 [Novolog U-100 Insulin aspart] 100 unit/mL Solution See Protocol SUBCUT TIDWM Protocol: Insulin Correction Scale Less than or equal to 110 ---- Give (units): 0 111 to 150 Give (units): 0 151 to 200 Give (units): 2 201 to 250 Give (units): 4 251 to 300 Give (units): 6 301 to 350 Give (units): 8 Greater than 350 Give (units): 10 Call MD if Blood Glucose > : 350 cetirizine 10 mg tablet 10 mg PO DAILY PRN (Reason: allergies) entecavir 0.5 mg tablet 0.5 mg PO DAILY cholecalciferol (vitamin D3) 50 mcg (2,000 unit) capsule 50 mcg PO DAILY aspirin 81 mg tablet,delayed release (DR/EC) 81 mg PO DAILY metoprolol succinate 100 mg tablet extended release 24 hr 100 mg PO DAILY Brilinta 60 mg tablet 60 mg PO BID (DME) Dexcom G6 Sensor Device See Rx Instructions .Route Rx Instructions: As directed (DME) Dexcom G6 Transmitter Device See Rx Instructions .Route Rx Instructions: As directed Print Language: Slovak
--- NOTE | 2025-08-11 13:33 | ECG_ITS ---
Test Reason : WEAKNESS Blood Pressure : */* mmHG Vent. Rate : 59 BPM Atrial Rate : 59 BPM P-R Int : 164 ms QRS Dur : 142 ms QT Int : 514 ms P-R-T Axes : 69 52 6 degrees QTcB Int : 508 ms Sinus bradycardia Right bundle branch block Abnormal ECG When compared with ECG of 17-May-2025 11:26, Right bundle branch block has replaced Non-specific intra-ventricular conduction delay Referred By: Bora Villafana Electronically Signed By: BETSY LOWE MD
[2025-08-11 14:12] LABS: Hematocrit 41.2 % (42.0-52.0); Hemoglobin 13.0 g/dl (14.0-18.0); Imm Gran Abs Auto 0.04 X10*3/uL (0.00-0.03); Imm Gran Pct Auto 0.4 % (0.0-0.4); Lymphocytes Absolute Auto 1.3 X10*3/uL (1.2-4.9); MANUAL DIFF FLAG NO; Mean Corpuscular HGB Conc 31.6 g/dl (31.0-36.0); Mean Corpuscular Hemoglobin 27.4 pg (27.0-33.0); Mean Corpuscular Volume 86.7 fL (80.0-98.0); NRBC Abs Auto 0.000 X10*3/uL (0.0-0.012); NRBC Pct Auto 0.0 /100WBC (0.0-0.2); Platelet Count 266 X10*3/uL (160-400); Red Blood Count 4.75 X10*6/uL (4.60-5.80); White Blood Count 10.2 X10*3/uL (4.8-10.8)
[2025-08-11 14:38] LABS: Troponin-I High Sensitivity 15.2 ng/L (<3.5-35.0)
[2025-08-11 15:11] LABS: Alanine Aminotransferase 20 U/L (0-40); Albumin Level 4.0 g/dL (3.5-5.0); Alkaline Phosphatase 90 U/L (39-117); Anion Gap 13 (12-20); Aspartate Amino Transferase 29 U/L (5-37); Blood Urea Nitrogen 16 mg/dL (9-16); Calcium 8.9 mg/dL (8.4-10.2); Carbon Dioxide 24 mmol/L (22-29); Chloride 107 mmol/L (96-108); Creatinine Clr Calc Pharmacy 36.3; Estimated Glomerular Filt Rate 38; Potassium 4.1 mmol/L (3.3-5.1); Sodium 140 mmol/L (135-145); Total Protein 7.2 g/dL (6.5-8.0)
--- OUTSIDE RECORDS SUMMARY | 2025-08-11 16:59 | XMS_ITS | Clinical Summary ---
Author Organization [facility] Address [address] [place] [phone] Phone Care Team Providers Care Continuous Mining Machine Lode Miner Name Role Phone Afia Cabrera MD Primary Care Provider [phone] Allergies No known active allergies Medications nitroglycerin [...] 03/08/2021 Type 1 diabetes mellitus 03/08/2021 Tobacco use disorder 03/08/2021 Subconjunctival hemorrhage of right eye 03/08/20 [...] Visit [facility] the [address] [place], [place] [address] Chandrakant Lei MD [address] [place] [address] Health Maintenance Due Date Last [...] Most Recently Relevant to Health Maintenance Insurance [facility] Medicare [facility] Medicare Care Teams Continuous Mining Machine Lode Miner Relationship Specialty Start Date End Date Afia Cabrera MD [address] [address] PCP - General Family Medicine 04/28/21
--- OUTSIDE RECORDS SUMMARY | 2025-08-11 16:59 | XMS_ITS | Patient Health Record ---
Author Organization [facility] Address [address] [place] [address] Care Team Providers Care Director Of Food And Beverage Services Name Role Phone Afia Cabrera Primary Care Provider Mikey Figueredo [phone] Allergies No Known Allergies Results Component Value Reference Range Notes Leukocytes Stool Qualitative Reviewed date:10/03/2024 04:38:18 PM Interpretation: Performing Lab:[address] [address] Notes/Report: Leukocytes Stool Qualitative NEGATIVE NEGATIVE Giardia Ag Stool EIA Reviewed date:10/09/2024 01:43:34 PM Interpretation: Performing Lab:[address] [address] Notes/Report: Giardia Ag Stool EIA SEE NOTE GIARDIA AG, EIA, STOOL Micro Number: [id number] Test Status: Final Specimen Source: Stool Specimen Quality: Adequate Giardia Result 1: Not Detected Reference Range: Not Detected NOTE: Due to intermittent shedding, one negative sample does not necessarily rule out the presence of a parasitic infection. THIS TEST WAS PERFORMED AT: [facility] [address] [place] [address] ALESSANDRO PATRICK MD Calprotectin, Fecal Reviewed date:10/11/2024 04:04:55 PM Interpretation: Performing Lab:[address] [address] Notes/Report: Calprotectin, Fecal 132 Reference Range: <50 [...] borderline values. THIS TEST WAS PERFORMED AT: [facility] [address] [place] [address] PEDRO TINOCO MD,PHD,DARYL Ova and Parasite Reviewed date:10/09/2024 01:43:13 PM Interpretation: Performing Lab:[address] [address] Notes/Report: Ova and Parasite SEE NOTE OVA AND PARASITES, CONC AND PERM SMEAR Micro Number: [id number] Test Status: Final Specimen Source: Stool Specimen [...] infection. For additional information, please refer to https://education.Plan B Acqusitions.GoLark/faq/PRR469 (This link is being provided for informational/ educational purposes only.) THIS TEST WAS PERFORMED AT: [facility] [address] [address] FARHAD HOGAN MD CDiff Gene PCR Reviewed date:10/03/2024 11:05:32 PM Interpretation: Performing Lab:[address] [address] Notes/Report: CDiff Gene PCR NEGATIVE Negative If C. difficile strongly suspected despite one negative test, a second test may be sent vs. empiric treatment for C. difficile infection. GI PANEL Reviewed date:10/04/2024 01:24:21 PM Interpretation: Performing Lab:[address] [address] Notes/Report: Campylobacter Not Detected Not Detect. Plesiomonas [...] is performed by Multiplexed PCR, utilizing the [employer] Array. Reason For Referral No Information Medications Medication SIG (Take, Route, Frequency, Duration) Notes Start Date End Date Status Aspirin Active Atorvastatin Calcium 80 MG Oral; Duration: 28 Active Lexapro Active Omeprazole 20 MG Oral; Duration: 28 Active Lipitor Active Metoprolol Tartrate Active Symbicort Not-Taking hydrALAZINE HCl 50 MG Oral; Duration: 28 Active Vitamin D Active amLODIPine Besylate 10 MG Oral; Duration: 28 Active Entecavir 0.5 MG 1 tablet on an empty stomach Orally Once a day; Duration: 10 day(s) Active Albuterol Active Brilinta Active [...] Problem Status W/U Status Risk Notes Problem Screening for malignant neoplasm of colon (550170533) Encounter for screening for malignant neoplasm of colon (Z12.11) Active confirmed Problem Diarrhea (28897517) Diarrhea (R19.7) Active confirmed Problem Weight loss (927106023) Weight loss (R63.4) Active confirmed Problem Screening for malignant neoplasm of rectum (328263315) Encounter for screening for malignant neoplasm of rectum (Z12.12) Active confirmed Problem Preprocedural examination (784939953202488) Preprocedural examination (Z01.818) Active confirmed Problem Irregular bowel habits (579931705) Irregular bowel habits (R19.8) Active confirmed Problem Diarrhea (41333771) Diarrhea, unspecified type (R19.7) Active confirmed Problem Giardia (87906104) Giardia (A07.1) Active confirmed Vital Signs Blood pressure diastolic 00 mm Hg 10/04/2024 Height 68 in 10/04/2024 Blood pressure systolic 00 mm Hg 10/04/2024 Weight 154 lbs 10/04/2024 BMI 23.41 kg/m2 10/04/2024 Encounters Encounter Location Date Provider Diagnosis [facility] [address] [place] [phone] 10/04/2024 Mikey Montenegro Diarrhea, unspecifie d type [...] OF [place] [address] [place] [address] [id number] AYSHA SHAFFER Self - patient is the insured [facility] [address] [place], [place] [id number] [phone] [id number] AYSHA SHAFFER Self - patient is the [...]
--- OUTSIDE RECORDS SUMMARY | 2025-08-11 17:00 | XMS_ITS | Encounter Summary ---
Author Organization [facility] Address [address] [place] [address] Phone Care Team Providers Care Construction Representative Name Role Phone Christiano Chiquita R ADJUNCT INSTRUCTOR OF WOMEN'S STUDIES Unavailable Unavailable Kitty Champion ADJUNCT INSTRUCTOR OF WOMEN'S STUDIES Unavailable Ryder Lou MD Unavailable [phone] Ruth Ann Laird MD Unavailable [phone] Ryder Lou MD Primary Care Provider [phone] Ryder Lou MD Primary Care Provider [phone] Encounter Details Date Type Department Care Team (Late st Contact Info) Description 04/18/2019 Procedure Pass [facility] Imaging [address] [place] [address] Social History Tobacco Use Types Packs/Day Years [...] on filedocumented in this encounter Care Teams Construction Representative Relationship Specialty Start Date End Date Ryder Lou MD [facility] [address] [phone] PCP - General 10/26/17 01/04/22 Ryder Lou MD [address] [phone] PCP - General Internal Medicine 01/05/22 Chiquita Alvarado NP [address] [place] [address] Historical LMR Provider 08/07/1710/30 Kitty Champion NP [address] [place] [address] Historical LMR Provider 08/07/17 Ryder Lou MD [address] [place] [phone] Historical LMR Provider 08/07/17 2 Ruth Ann Laird MD [address] [place] [address], [address] [place] [address] [email or web address] Historical LMR Provider 08/07/17 10/30/21 documented as of this encounter Additional Source Comments The information contained in this document represents components of the legal health record. It is not the complete legal health record.[facility]
--- OUTSIDE RECORDS SUMMARY | 2025-08-11 17:00 | XMS_ITS | Encounter Summary ---
Author Organization [facility] Address 100 [facility] 200 [place] [address] Phone Care Team Providers Care Homeowner Association Manager Name Role Phone Afia Cabrera MD Primary Care Provider [phone] Encounter Details Date Type Department Care Team (Late Contact Info) Description 02/25/2022 Documentation Only [facility] 100 [facility] 200 [place] [address] Chandrakant Lei MD [address] [address] Social History Tobacco Use Types [...] [facility] [address] [place] [address] Chandrakant Lei MD [address] [address] documented as of this encounter Visit Diagnoses Not on filedocumented in this encounter Care Teams Homeowner Association Manager Relationship Specialty Start Date End Date Afia Cabrera MD 3640 [facility] [address] [place] [address] PCP - General Family Medicine 04/28/21 documented as of this encounter
--- OUTSIDE RECORDS SUMMARY | 2025-08-11 17:00 | XMS_ITS | Clinical Summary ---
Author Organization [facility] Address [address] [place] [address] Phone Care Team Providers Care Powerhouse Mechanic Supervisor Name Role Phone Ryder Lou MD Primary Care Provider [phone] Allergies No known active allergies Medications aspirin [...] Encounters Date Type Department Care Team Description 07/17/2025 11:30 AM EDT Telemedicine - audio only [facility] [address] [place] [address], 3rd Floor, [address] [place] [address] Bertha Story MD Pituitary adenoma (Primary Dx) 07/08/2025 Ancillary Orders [facility] [address] [place] [address] Bertha Story MD 07/08/2025 Ancillary Orders [facility] [address] [place] [address] Bertha Story MD 06/17/2025 - 06/17/2025 11:59 PM EDT Hospital Encounter [facility] [address] [place] [address] Bertha Story MD Discharge Disposition: Home or Self Care from Last 3 Months Family History Medical [...] pur e alcohol) beer or mixed drink Child or Family Care Answer Date Record ed Do you have problems with on e of the following making it difficult for you to work, study, or receive health care? No 07/10/2025 Education Answer Date Recorded Are you interested in more education? Not on gay e 02/17/2023 Are you concerned about learning? Not on file 02/17/2023 No 02/17/2023 No 02/17/2023 Food Answer Date Recorded Within the past 6 months we worried whether our food would run out before we got money to buy more. Never True 07/10/2025 Within the past 6 months the food we bought just didn't last and we didn't have enough money to get more. Never True Residential Stability Answer Date Recor ded What is your housing situation today? I have jay sing 07/10/2025 How many times have you move d in the past 12 months? Zero (I did not move) 07/10/2025 Paying for Meds Answer Date Recorded Do you have trouble paying for medicines? No 07/10/2025 Paying Utility Bills Answer Date Record ed Do you have trouble paying your heating or elect ricity bill? No 07/10/2025 Transportation Answer Date Recorded Has the lack of transportati on kept you from medical appointments or from getting medications? No 07/10/2025 Digital Access Answer Date Recorded No 07/10/2025 Yes 07/10/2025 Do you have reliable internet access at home? Ye s 07/10/2025 Do you have a device (e.g., phone, tablet, computer) with a working camera? Yes 07/10/2025 Sex and Gender Information Value Date Recorded [...] COLONOSCOPY 12/30/1996 RSV VACCINE (1 - Risk 50-74 years 1-dose series) 12/30/2001 ABDOMINAL AORTIC ANEURYSM (AAA) SCREENING 12/30/2016 DIABETIC EYE EXAM 01/22/2018 HEMOGLOBIN A1C 03/19/2019 12/20/2018, 09/23, 01/26/2018, Additional history exists URINE MICROALBUMIN/CREATININE RATIO 02/01/2025 02/02/2024 INFLUENZA VACCINE (#1) 2025 07/06/2020, 2018 COVID-19 VACCINE ( - season) 2025 01/22/2021, 01/01/2021 Adult Td,Tdap Booster [...] (No Interpretation) (06/17/2025 12:00 AM EDT) Narrative [facility]G INTERFACES - 07/08/2025 10:03 AM EDT This study is for PACS storage only and not for interpretation. Bertha Story MD IMG OUTSIDE IMAGING W/OUT INTE RPRETATION Final Result [facility] IMG INTERFACES * Outside HbA1c (12/20/2018) Hemoglobin A1c - External 10 % Historical Provider LAB BLOOD ORDERABLES Johana l Result * Hepatitis C antibody, qualitative (11/01/2018) Historical Provider LAB BLOOD ORDERABLES Edit ed Result - Final from Last 3 Months or Most Recently Relevant to Health Maintenance Insurance MEDICARE PART A & [place] [address] [place] [id number] MEDICARE PART A & B MEDICARE PART A & B [facility] FEDERAL MEDICARE PART A & B [employer] FEDERAL MEDICARE PART A & [place] [place] [id number] MEDICARE PART A & B [facility] MEDICARE PART A & B [employer] [facility] MEDICARE PART A & B [employer] [facility] MEDICARE PART A & B [facility] Care Teams Powerhouse Mechanic Supervisor Relationship Specialty Start Date End Date Ryder Lou MD [address] [place] [phone] PCP - General Internal Medicine 01/05/22 Additional Source Comments The information contained in this document represents components of the legal health record. It is not the complete legal health record.[facility]
--- OUTSIDE RECORDS SUMMARY | 2025-08-11 17:00 | XMS_ITS | Encounter Summary ---
Author Organization [facility] Address [address] [facility] 200 [place] [address] Phone Care Team Providers Care Plaster Mold Maker Name Role Phone Afia Cabrera MD Primary Care Provider Encounter Details Date Type Department Care Team (Late Contact Info) Description 12/20/2021 Documentation Only [facility] [address] [facility] 200 [place] [address] Chandrakant Lei MD [address] [address] Social History Tobacco Use Types [...] Visit [facility] [address] [place] [address] Chandrakant Lei MD [address] [address] documented as of this encounter Visit Diagnoses Not on filedocumented in this encounter Care Teams Plaster Mold Maker Relationship Specialty Start Date End Date Afia Cabrera MD [address] [phone] PCP - General Family Medicine 04/28/21 documented as of this encounter
--- OUTSIDE RECORDS SUMMARY | 2025-08-11 17:00 | XMS_ITS | Encounter Summary ---
Author Organization [facility] Address [address] [facility] 200 [place] [address] Phone Care Team Providers Care Transportation Associate Name Role Phone Afia Cabrera MD Primary Care Provider [phone] Encounter Details Date Type Department Care Team (Late Contact Info) Description 03/15/2021 Orders Only [facility] [address] [place] [address] Chandrakant Lei MD 5966 [facility] 204 [place] [address] Chronic type B viral hepatitis [...] Upcoming Encounters Date Type Department Care Team ([facility] Contact Info) Description 10/02/2025 1:00 PM EST Office Visit [facility] [address] [place] [address] Chandrakant Lei MD 2255 [facility] 204 [place] [address] documented as of this encounter Procedures Procedure [...] osteodystrophy documented in this encounter Care Teams Transportation Associate Relationship Specialty Start Date End Date Afia Cabrera MD 3640 [facility] [address] [place] [address] PCP - General Family Medicine 04/28/21 documented as of this encounter
--- OUTSIDE RECORDS SUMMARY | 2025-08-11 17:00 | XMS_ITS | Encounter Summary ---
Author Organization [facility] Address [address] [place] [address] Phone Care Team Providers Care Fitness Consultant Name Role Phone Christiano Chiquita R TANK BUILDER Unavailable Unavailable Kitty Champion TANK BUILDER Unavailable Ryder Lou MD Unavailable [phone] Ruth Ann Laird MD Unavailable [phone] Ryder Lou MD Primary Care Provider [phone] Ryder Lou MD Primary Care Provider [phone] Encounter Details Date Type Department Care Team (Late st Contact Info) Description 04/08/2019 Procedure Pass [facility] Imaging [address] [place] [address] Social History Tobacco Use Types Packs/Day Years [...] on filedocumented in this encounter Care Teams Fitness Consultant Relationship Specialty Start Date End Date Ryder Lou MD [facility] [address] [phone] PCP - General 10/26/17 01/04/22 Ryder Lou MD [address] [phone] PCP - General Internal Medicine 01/05/22 Chiquita Alvarado NP [address] [place] [address] Historical LMR Provider 08/07/1710/30 Kitty Champion NP [address] [place] [address] Historical LMR Provider 08/07/17 Ryder Lou MD [address] [place] [phone] Historical LMR Provider 08/07/17 2 Ruth Ann Laird MD [address] [place] [address], [address] [place] [address] [email or web address] Historical LMR Provider 08/07/17 10/30/21 documented as of this encounter Additional Source Comments The information contained in this document represents components of the legal health record. It is not the complete legal health record.[facility]
== END 2025-08-11 18:09 | disposition home or self-care (01) ==
PROVIDERS: Emergency Provider Emergency Medicine
DX: R55 Syncope and collapse (principal); R11.2 Nausea with vomiting, unspecified; R19.7 Diarrhea, unspecified; E10.9 Type 1 diabetes mellitus without complications
CPT/HCPCS: 36415; 80053; 84484; 85025; 93005; 99283; 99284

== ENCOUNTER → 2025-08-11 13:33 | Outpatient (BNV) | payer MEDICARE, BC, SELFPAY | PROVIDERS: Emergency Provider Emergency Medicine; Visit Provider Internal Medicine Cardiovascular Disease | DX: I45.10 Unspecified right bundle-branch block (principal); R00.1 Bradycardia, unspecified | CPT/HCPCS: 93010 ==

== ENCOUNTER 2025-09-01 11:02 | Outpatient (AMB) | payer MEDICARE, OTHER, SELFPAY ==
--- OUTSIDE RECORDS SUMMARY | 2025-04-15 05:30 | XMS_ITS | Continuity of Care Document ---
Author Organization [facility] Address [address] [place] [address] [address] [place] [phone] Phone Care Team Providers Care Bakelite Molder Name Role Phone Marty HILL, ANABELA, JORDYN, Mikey Unavailable U navailable Procedures Procedure Date Duplex Scan-extrem Veins; Uni/ CT & MA J Advance Directives Directive Yes / No Effective Date File Name No Information Encounters Encounter Description Practice Location Reason(s) For Visit Diagnoses Date Provider Providers Copied on Encounter [facility], [address], [place], [id number], [place] tel:[phone] CVR - [place] Varicose veins of left lower extremity with other complications 5 Marty HILL, ANABELA, JORDYN Jensen. [address] [facility] [address] [facility] [address], [place], [id number] , [place]. tel:[phone] Referring Provider: Afia Cabrera MD, [facility] [address], [place] [address]. tel:[phone] Family History Family Member Type Diagnosis Age At Onset No Information Payers Payer name Insurance type Covered green party ID Authoriza tion(s) Medicare JENIFER VAZ [id number] Social History Type Description Quantity Date Captured Comments Sex Male Smoking Status No Information Chief Complaint And Reason For Visit No Information Reason For Referral Reason For Referral No Information History Of Present Illness Encounter Date Complaint History Of Prese nt Illness No Information Functional Status Date Functional Assessmen t No Information Instructions Date Instruction Additional Infor mation No Information Assessments Type Assessment Date No Information Patient Care Teams Name Effective Dates (start - stop) Status Members No Information
--- NOTE | 2025-09-01 11:05 | A.OFFVIS_ITS ---
Vital Signs 09/01/25 11:10 Height 5 ft 7.72 in Weight 164 lb 3.91 oz BMI 25.2 BP 134/60 Blood Pressure Location Rt brachial Position Sitting Pulse 62 Pulse Source Pulse Oximeter Pulse Oximetry (%) 96 Oxygen Delivery Method Room Air Intake Visit Reasons: f/u Type 2DM/ pituitary macroadenoma Intake Note: Patient present today to follow up on Type 2 Diabetes Mellitus. Patient receives Dexcom G6 supplies through: [employer] Last Diabetic Eye exam: December or January 2025 at [facility]. Last Podiatry Visit: Does not see a Professor Of Business Administration Random Glucose: 114 mg/dl HgA1C: 7.2% 09/01/2025 Sizing End Bander Required: No Accompanied by: Self / Same As Patient Allergies No Known Allergies Allergy (Verified 09/01/25 11:11) Medication List - Last Reconciled 09/01/25 by Mikey Ramos MD albuterol sulfate 90 mcg/actuation 2 puffs inhalation Q4H PRN amlodipine 10 mg PO DAILY aspirin 81 mg PO DAILY atorvastatin 80 mg PO BEDTIME 30 days blood-glucose sensor (Dexcom G6 Sensor device) As directed blood-glucose transmitter (Dexcom G6 Transmitter device) As directed bolus insulin pump, 200 unit (CeQur Simplicity) As directed every 4 days cetirizine 10 mg PO DAILY PRN cholecalciferol (vitamin D3) 50 mcg PO DAILY diabetic supplies, miscellan. (CeQur Simplicity Customer Service Dispatcher) As directed for use with CeQur insulin patch diphenhydramine-acetaminophen 25-500 mg 2 tabs PO BEDTIME entecavir 0.5 mg PO DAILY escitalopram oxalate 20 mg PO DAILY ezetimibe (Zetia) 10 mg PO DAILY 90 days hydralazine 50 mg See Protocol PO BEDTIME insulin aspart U-100 (Novolog U-100 Insulin aspart) See Protocol sliding scale doses subcut TIDWM insulin degludec (Tresiba FlexTouch U-200 insulin) 32 units subcut DAILY melatonin 5 mg PO BEDTIME metoprolol succinate ER 100 mg PO DAILY omeprazole 10 mg PO DAILY@0630 ticagrelor (Brilinta) 60 mg PO BID HPI Comments Details: 74 year-old male with a past medical history of chronic hepatitis-B, diabetes recently confirmed as type 2 not type 1,, hypertension, HLD, and a Pituitary macroadenoma. He is seen in follow up today. H 2019 Negative gada and insulin antibodies, low c peptide 0.77 Outside labs from [facility] reviewed 08/09/2024 Fasting C-peptide 1.6 [place] less than 5 Anti pancreatic islet cell antibodies negative He had tried Ozempic but had diarrhea. Mounjaro 2.5 mg was prescribed but insurance denied. Was on metformin when he was first diagnosed. Was diagnosed approximately 2003 Current diabetes regimen: Tresiba 50 units NovoLog 18 units twice daily with meals (9 clicks) Can dose with CeQur 2 units between meals as needed Had occasional episode of hypoglycemia after taking Mirlande supplement Dexcom download shows he is using the sensor 95 of the time. Average glucose is 167 with G mi of 7.3% and standard deviation 59 and coefficient of variation 35.6%. 56% range with 42% hyperglycemia and 2% hypoglycemia. Pattern shows mild hypoglycemia occurring rarely mid afternoon Denies retinopathy: Has eyes checked yearly, last eye exam:01/2025 HAD cataract surgery, was seen 12/18/24 with f/u in 4 months Denies Neuropathy: no numbness, tingling or crampng. does not see bilingual patient support caseworker has family member trim nails He is off Lisinopril now per the recommendation of his Mammal Control Agent. He developed orthostatic hypotension in 2020 and was having low BP with LEE/ARB so these were stopped. Sees Dr. Lei who has discussed going to [employer] or [employer]. Has HLD, on Atorvastatin 80 mg PO daily and Zetia 10 mg PO daily. LDL 45 09/16 Has history of CAD with triple vessel PTCA He had a CVA in 2020. He is followed by vascular surgeon at [facility] for AAA and stenosis of the carotid arteries Diet: balanced Exercise:walks with cane Outside labs from [facility] reviewed 08/09/2024 Fasting C-peptide 1.6 [place] less than 5 Anti pancreatic islet cell antibodies negative Total cholesterol 95 LDL 45 Other issues pituitary macroadenoma which was stable by recent MRI. Virgil workup was negative for pituitary hormones [facility] Medical History (Updated 08/12/25 @ 00:00 by Background Daemon) Status post placement of implantable loop recorder Diabetes type 2 T1DM (type 1 diabetes mellitus) Wears dentures Chronic hepatitis B Paralysis of left upper extremity Ambulates with cane Glaucoma Diverticulosis Diabetes Bilateral cataracts Uncontrolled diabetes mellitus with hyperglycemia History of stent insertion of renal artery CAD (coronary artery disease) Carotid artery disease Pituitary adenoma Cerebral microvascular disease Multiple cerebral infarctions Left hemiparesis CKD (chronic kidney disease) stage 3, GFR 30-59 ml/min AAA (abdominal aortic aneurysm) Left renal artery stenosis Hypertensive urgency CKD (chronic kidney disease) stage 3, GFR 30-59 ml/min Peroneal neuropathy Hypertension Encounter for loop recorder check Stroke due to stenosis of right carotid artery Stroke CVA (cerebral vascular accident) (~2020) TIA (transient ischemic attack) (~2020) Vitamin D deficiency Pituitary macroadenoma HLD (hyperlipidemia) HTN (hypertension) Surgical History Hx of LASIK Hx of cataract surgery Cataract extraction status of left eye (10/07/24) History of partial colectomy (~1997) History of heart artery stent History of carotid endarterectomy Family History Father CVD (cardiovascular disease) AAA (abdominal aortic aneurysm) Mother No problems noted. Social History Household Members: Family Housing: House Are you a primary managed care coordinator to a significant other at home: No Do you presently have visiting nurse or other home services: No Alcohol intake: never Comment: bed rest, unable to ambulate per md Patient Tobacco Use Status: Former Tobacco user Tobacco use type: Cigarette Years Smoked: 50+ Second Hand Smoke Exposure: No Advance Directives Date on File: 01/09/21 service: No Current occupational status: unemployed and retired Physical Exam Vital Signs: Last Vital Signs Pulse 62 09/01/25 11:10 BP 134/60 09/01/25 11:10 Pulse Ox 96 09/01/25 11:10 Oxygen Delivery Method Room Air 09/01/25 11:10 BMI result Body Mass Index 25.2 Const Other: Absence of Cushingoid features. Absence of acromegalic features. Neck exam reveals nl size thyroid about 15 gms. No thyroid nodules palpable. Heart S1 S2, Reg R/R. No M/R G. Skin exam reveals absence of vitiligo or acanthosis nigricans. left hemiparesis, walks with cane. There was no visual field loss by gross confrontation Visual exam of foot performed. No ulcerations or open lesions. No inter digit maceration or fissuring. No onychomycosis, no callouses. Sensation intact to monofilament exam. Vibratory sensation is diminished right foot with 128 Hz tuning fork. Results AMB Hemoglobin A1c AMB Hemoglobin A1c 7.2 % Last Edit by LILLIAN Greco on 09/01/25 11:29 Results Reviewed Results Reviewed: Laboratory Last Values Glucose (Clinic) 114 mg/dL (60-115) 09/01/25 11:15 Assessment & Plan Assessment & Plan (1) Uncontrolled diabetes mellitus with hyperglycemia: Code(s): E11.65 - Type 2 diabetes mellitus with hyperglycemia Category: Medical Plan: This 72-year-old white male with reported prior history of Type 2 currently being treated with basal-bolus insulin with fair but adequate glycemic control considering patient's comorbidities and known microvascular macrovascular complications namely CAD, CVA and CKD. Considering patient's comorbidities, patient is at goal A1c Plan is to continue the current regimen (2) Pituitary macroadenoma: Code(s): D35.2 - Benign neoplasm of pituitary gland Category: Medical Plan: History of pituitary macroadenoma non secreting. Recent MRI showed stability in the size of the adenoma. 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
[2025-09-01 11:10] VITALS: BP 134/60; PULSE 62; O2SAT 96; BMI 25.2
[2025-09-01 11:20] LABS: Glucose, Whole Blood 114 mg/dL (60-115)
--- OUTSIDE RECORDS SUMMARY | 2025-09-01 13:23 | XMS_ITS | Clinical Summary ---
Author Organization [facility]. 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
--- OUTSIDE RECORDS SUMMARY | 2025-09-01 13:23 | XMS_ITS | Encounter Summary ---
Author Organization [facility] Address [address] [facility] 200 [place] [address] Phone Care Team Providers Care Casting Inspector Name Role Phone Afia Cabrera MD Primary Care Provider [phone] Encounter Details Date Type Department Care Team (Late Contact Info) Description 03/15/2021 Orders Only [facility] [address] [place] [address] Chandrakant Lei MD 6580 [facility] 204 [place] [address] Chronic type B viral hepatitis [...] Upcoming Encounters Date Type Department Care Team ([facility] Contact Info) Description 10/02/2025 1:00 PM EST Office Visit [facility] [address] [place] [address] Chandrakant Lei MD 2398 [facility] 204 [place] [address] documented as of this encounter Procedures Procedure [...] osteodystrophy documented in this encounter Care Teams Casting Inspector Relationship Specialty Start Date End Date Afia Cabrera MD 3640 [facility] [address] [place] [address] PCP - General Family Medicine 04/28/21 documented as of this encounter
--- OUTSIDE RECORDS SUMMARY | 2025-09-01 13:23 | XMS_ITS | Data Portability ---
Author Organization JENIFER GREENBERG MD [facility], Main Office Address [address] [place] [id number] Assessment No assessment recorded. Plan of Treatment Reminders Order Date Submit Date Provider Last Modified By Organization Details Last Modified Time Details Appointments HBV FOLLOW UP 2025 12:00P Vita Okeefe MD Not available Not available Not available Lab Hepatitis B virus, DNA, quant, viral load, PCR, serum or plasma 2024 025 [facility], [address], [facility], [place], [address], 08/05/2025 12:06:15 CMP, serum or plasma 2024 025 [facility], [address], [facility], [place], [address], 08/05/2025 12:06:14 unlisted lab - hbeab+Ag+ hbsab+Ag 2024 025 [facility], [address], [facility], [place], [address], 08/05/2025 12:06:13 creatinin e w/ estimated GFR (eGFR), serum or plasma 2024 025 [email or web address], [address], [place] , [place], [address], 01/10/2025 12:32:55 hepatitis B DNA, quantitat chandrakant, serum 2024 025 [email or web address], [address], [facility], [place], [address], 01/10/2025 12:32:56 unlisted lab - alb+ALP+A LT+AST+tb garcía+PT 2024 025 [email or web address], [address], [address], [place], [address], 01/10/2025 12:32:56 unlisted lab - HBV fibrosure 2024 025 [email or web address], [address], [address], [place], [address], 01/10/2025 12:32:56 creatinin e w/ estimated GFR (eGFR), serum or plasma 2023 024 [facility], [address], [address], [place], [address], 07/04/2024 10:07:04 hepatitis C virus Ab, serum 2023 024 [email or web address], [address], [address], [place], [address], 07/10/2024 11:39:02 hepatitis B DNA, quantitat chandrakant, serum 2023 024 [email or web address], [address], [address], [place], [address], 07/10/2024 11:39:02 unlisted lab - alb+ALP+A LT+AST+tb garcía+PT 2023 024 [facility], [address], [address], [place], [address], 07/04/2024 10:07:03 CBC w/ diff 2022 023 [facility], [address], [address], [place], [address], 09/26/2023 16:30:38 electroly george panel, blood 2022 023 [email or web address] [facility], [address], [address], [place], [place], [address], 09/26/2023 16:30:38 ALT (alanine aminotran sferase), serum or plasma 2022 023 [facility], [address], [address], [place], [place], [address], 08/23/2023 21:34:23 AST/SGOT (aspartat e aminotran sferase), serum or plasma 2022 023 [facility], [address], [address], [place], [address], 08/23/2023 21:34:24 creatinin e w/ estimated GFR (eGFR), serum or plasma 2022 023 [email or web address] [facility], [address], [address], [place], [address], 09/26/2023 16:30:39 hepatitis C virus Ab, serum 2022 023 [facility], [address], [address], [place], [address], 08/23/2023 23:21:23 RPR (rapid plasma reagin), serum 2022 023 [email or web address] [facility], [address], [address], [place], [address], 09/26/2023 16:30:39 hepatitis B DNA, quantitat chandrakant, serum 2022 023 [facility], [address], [address], [place], [address], 08/29/2023 15:10:11 unlisted lab - shelton fibrosure 2022 023 [facility], [address] [place], [address], 08/27/2023 18:06:18 Referral None recorded. Procedures None recorded. Surgeries None recorded. Imaging US, abdomen [address] [facility] [address] [place] [address] [place], [address], 01/14/2025 10:31:38 Medication Orders entecavir 0.5 mg tablet 2024 025 [facility] [place], [address], 07/28/2025 13:01:25 entecavir 0.5 mg tablet 2024 025 [facility] [place], [address], 03/27/2025 23:52:20 entecavir 0.5 mg tablet 2024 025 [facility] [place], [address], 2024 11:14:54 entecavir 0.5 mg tablet 2023 024 [facility] [place] [address], 07/03/2024 12:35:02 entecavir 0.5 mg tablet 2022 023 [facility] [place], [address], 08/23/2023 14:44:06 Patient TargetsNo targets recorded. Patient InstructionsNo instructions recorded. Reason for Referral None Reported. Results Created Date Observation Date Name Description Value Unit Range Abnormal Flag Note LastModifiedBy Organization Detail LastModifiedTime 08/23/2008/23/2023 COMPL ETE CBC WITH DIFF WBC 7.8 K/mm3 (4.0-1 1.0) Not Available [facility] (Centralized Electronic Ordering - All Locations) Patient Can Go To The Location Of Their Choice, 08/23/2023 21:06:08/23/2008/23/2023 COMPL ETE CBC WITH DIFF RBC 5.03 [...] Go To The Location Of Their Choice, [id number] 08/23/2023 21:06:07 08/23/2008/23/2023 COMPL ETE CBC WITH DIFF MCV 90.5 fL (80.0- 94.0) Not Available [facility] (Centralized Electronic Ordering - All Locations) Patient Can Go To The Location Of Their Choice, [id number] 08/23/2023 21:06:07 08/23/2008/23/2023 COMPL ETE CBC WITH DIFF MCH 29.6 pg (27.0- 34.0) Not Available [facility] (Centralized Electronic Ordering - All Locations) Patient Can Go To The Location Of Their Choice, [id number] 08/23/2023 21:06:07 08/23/2008/23/2023 COMPL ETE CBC WITH [...] Location Of Their Choice, 08/23/2023 21:06:07 08/23/20 08/23/2023 COMPL ETE CBC WITH DIFF mono# 0.7 K/mm3 (0.4-1 .3) Not Available [facility] (Centralized Electronic Ordering - All Locations) Patient Can Go To The Location Of Their Choice, [facility] 08/23/2023 21:06:07 08/23/20 23 08/23/2023 COMPL ETE [...] Go To The Location Of Their Choice, [id number] 08/23/2023 21:06:07 08/23/20 23 08/23/2023 COMPL ETE CBC WITH DIFF baso 0.9 % (0-2) Not Available [facility] (Centralized Electronic Ordering - All Locations) Patient Can Go To The Location Of Their Choice, [id number] 08/23/2023 21:06:07 08/23/20 23 08/23/2023 COMPL ETE CBC WITH DIFF imm gran 0.4 % Not Available [facility] (Centralized Electronic Ordering - All Locations) Patient Can Go To The Location Of Their Choice, [address] 08/23/2023 21:06:07 08/23/20 23 08/23/2023 ALT ALT 24 U/L (0-41) Not Available [facility] (Centralized Electronic Ordering - All Locations) Patient Can Go To The Location Of Their Choice, [id number] 08/23/2023 21:34:22 08/23/20 23 08/23/2023 AST AST 19 U/L (0-40) Not Available [facility] (Centralized Electronic Ordering - All Locations) Patient Can Go To The Location Of Their Choice, [id number] 08/23/2023 21:34:24 08/23/20 23 08/23/2023 CREAT ININE creatinine 1.6 mg/dL (0.7-1 .2) high Not Available [facility] (Centralized Electronic Ordering - All Locations) Patient Can Go To The Location Of Their Choice, [id number] 08/23/2023 21:34:25 08/23/20 23 08/23/2023 CREAT ININE [...] Go To The Location Of Their Choice, [id number] 08/23/2023 21:34:25 08/23/20 23 08/23/2023 ELECT ROLYT [...] The Location Of Their Choice, 08/23/2023 23:21:23 08/23/2008/23/2023 SYPHI LIS TESTI NG syphilis screen by [...] Go To The Location Of Their Choice, [id number] 08/23/2023 23:21:24 08/23/20 23 08/23/2023 SYPHI LIS [...] Go To The Location Of Their Choice, [id number] 08/23/2023 23:21:24 08/23/20 23 08/27/2023 SHELTON FIBRO SURE fibrosis score 0.64 high Refer ence range : 0.00 to 0.21 Not Available [facility] (Centralized Electronic Ordering - All Locations) Patient Can Go To The Location Of Their Choice, [id number] 08/27/2023 18:06:18 08/23/2008/27/2023 SHELTON FIBRO SURE fibrosis stage Commen t (NOTE ) F3-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 Not Available [facility] (Centralized Electronic Ordering - All Locations) Patient Can Go To The Location Of Their Choice, [id number] 08/27/2023 18:06:18 08/23/2008/27/2023 SHELTON FIBRO SURE steatosis score 0.64 high Refer ence range : 0.00 to 0.40 Not Available [facility] (Centralized Electronic Ordering - All Locations) Patient Can Go To The Location Of Their Choice, [id number] 08/27/2023 18:06:18 08/23/2008/27/2023 SHELTON FIBRO SURE steatosis [...] Go To The Location Of Their Choice, [address] 08/27/2023 18:06:18 08/23/2008/27/2023 SHELTON FIBRO SURE cholesterol total 116 Refer ence range : 100 to 199 Unit: mg/dL Not Available [facility] (Centralized Electronic Ordering - All Locations) Patient Can Go To The Location Of Their Choice, [address] 08/27/2023 18:06:18 08/23/2008/27/2023 SHELTON FIBRO SURE glucose [...] Choice, 08/27/2023 18:06:18 08/23/2008/27/2023 SHELTON FIBRO SURE interpretati ons Commen t (NOTE ) Quant itati ve resul ts of 10 bioch emica ls in combi natio n with age and gende r, are diana zed using a compu tatio nal algor ithm to provi de a quant itati ve surro gate marke r (0.0- 1.0) of liver fibro sis ([place] vir F0-F4 ), hepat ic steat osis [...] had signi fican t NAFLD fibro sis ([place] vir F2-F4 ) and 11% had cirrh [...] Go To The Location Of Their Choice, [id number] 08/27/2023 18:06:18 08/23/20 23 08/27/2023 SHELTON FIBRO SURE fibrosis scoring Commen t [...] Go To The Location Of Their Choice, [id number] 08/27/2023 18:06:18 08/23/2008/27/2023 SHELTON FIBRO SURE steatosis [...] Go To The Location Of Their Choice, [address] 08/27/2023 18:06:18 08/23/2008/27/2023 SHELTON FIBRO SURE shelton scoring Commen t (NOTE ) < EQ 0.25 EQ N0 - No SHELTON 0.25 - 0.50 EQ N1 - Mild SHELTON 0.50 - 0.75 EQ N2 - Moder ate SHELTON >0.75 EQ N3 - Sever e SHELTON Not Available [facility] (Centralized Electronic Ordering - All Locations) Patient Can Go To The Location Of Their Choice, [id number] 08/27/2023 18:06:18 08/23/2008/27/2023 SHELTON FIBRO SURE limitations [...] Go To The Location Of Their Choice, [address] 08/27/2023 18:06:18 08/23/20 23 08/27/2023 SHELTON FIBRO SURE comment Commen t (NOTE ) This test was devel oped and its perfo rmanc e gin cteri stics deter mined by [facility] . It has not been clear ed or appro demario by the Food and Drug Admin istra tion. For quest ions regar ding this repor t pleas e conta ct custo marc servi ce at [phone]. Refer ences : 1. Jennifer mejia V. [...] Go To The Location Of Their Choice, [id number] 08/27/2023 18:06:18 08/23/20 23 08/27/2023 SHELTON FIBRO SURE methodology Commen t (NOTE ) The diana george teste d are perfo rmed by Fibro Sure- Speci fic metho ds. Not inten ded for use with other diagn ostic consi derat ions. Test perfo rmed at [facility] , [address] [place] [address] , [place] [address] Not Available [facility] (Centralized Electronic Ordering - All Locations) Patient Can Go To The Location Of Their Choice, [id number] 08/27/2023 18:06:18 08/23/20 23 08/29/2023 HEPAT ITIS B QUANT ITATI VE, PLASM A hepatitis B quantitative , plas IU/mL Not detec benjamin HBV DNA was not detec benjamin in the speci men. Resul t repor benjamin to the [facility]. Testi ng perfo rmed by real time PCR utili zing SHANNON 6800 HBV test. To preve nt error s [...] Go To The Location Of Their Choice, [id number] 08/29/2023 15:10:11 08/23/20 23 08/29/2023 HEPAT ITIS B QUANT ITATI VE, PLASM A hbvlog LOG value not calcul ated logiu /mL Not Available [facility] (Centralized Electronic Ordering - All Locations) Patient Can Go To The Location Of Their Choice, [id number] 08/29/2023 15:10:11 07/03/20 24 07/04/2024 ALB+A LP+AL T+AST +TBIL I+PT albumin 4.3 g/dL 3.8-4. 8 normal Not Available [facility] ([facility]) [address] [place], [address], 07/04/2024 10:07:03 07/03/20 24 07/04/2024 ALB+A LP+AL T+AST +TBIL I+PT bilirubin, total 0.4 mg/dL 0.0-1. 2 normal Not Available [facility] ([facility]) [address] [place], [address], 07/04/2024 10:07:03 07/03/20 24 07/04/2024 ALB+A LP+AL T+AST +TBIL I+PT alkaline phosphatase 96 IU/L 44-121 normal Not Available [facility] ([facility]) [address] [facility], [place], [address], 07/04/2024 10:07:03 07/03/20 24 07/04/2024 ALB+A LP+AL T+AST +TBIL I+PT AST (SGOT) 20 IU/L 0-40 normal Not Available [facility] ([facility]) [address] [facility], [place], [address], 07/04/2024 10:07:03 07/03/20 24 07/04/2024 ALB+A LP+AL T+AST +TBIL I+PT ALT (SGPT) 16 IU/L 0-44 normal Not Available [facility] ([facility]) [address] [facility], [place], [address], 07/04/2024 10:07:03 07/03/20 24 07/04/2024 ALB+A LP+AL [...] Not Available [facility] ([facility]) [address] [facility], [place], [address], 07/04/2024 10:07:03 07/03/20 24 07/04/2024 ALB+A LP+AL T+AST +TBIL I+PT prothrombin time 11.3 sec 9.1-12 .0 normal Not Available [facility] ([facility]) [address] [facility], [place], [address], 07/04/2024 10:07:03 07/03/20 24 07/04/2024 GLOM FILT RATE, ESTIM ATED creatinine 1.72 mg/dL 0.76-1 .27 above high normal Not Available [facility] ([facility]) [address] [place], [address], 07/04/2024 10:07:04 07/03/20 24 07/04/2024 GLOM FILT RATE, ESTIM ATED eGFR 42 mL/mi n/1.7 3 >59 below low normal Not Available [facility] ([facility]) [address] [place], [address], 07/04/2024 10:07:04 07/03/20 24 07/04/2024 HCV ANTIB MIYA RFX TO QUANT PCR HCV Ab Non Reacti ve non reacti ve Not Available [facility] ([facility]) [address] [facility], [place], [address], 07/04/2024 10:07:05 07/03/20 24 07/04/2024 HCV ANTIB [...] Not Available [facility] ([facility]) [address] [facility], [place], [address], 07/04/2024 10:07:05 07/03/20 24 07/04/2024 HEPAT ITIS B SURF AB QUANT hepatitis B surf Ab quant 62.9 mIU/m L immuni ty>10 Statu s of Immun ity Anti- HBs Level ----- ----- ----- --- ----- ----- ---- Incon siste nt with Immun ity 0.0 - 10.0 Consi stent with Immun ity >10.0 Not Available [facility] ([facility]) [address] [place], [address], 07/04/2024 10:07:06 03/19/2003/20/2025 ALB+A LP+AL T+AST +TBIL I+PT albumin 4.4 g/dL 3.8-4. 8 normal Not Available [facility] ([facility]) [address] [place], [address], 03/21/2025 06:05:18 03/19/2003/20/2025 ALB+A LP+AL T+AST +TBIL I+PT bilirubin, total 0.3 mg/dL 0.0-1. 2 normal Not Available [facility] ([facility]) [address] [place], [address], 03/21/2025 06:05:18 03/19/2003/20/2025 ALB+A LP+AL T+AST +TBIL I+PT alkaline phosphatase 110 IU/L 44-121 normal Not Available [facility]) [address] [place], [address], 03/21/2025 06:05:18 03/19/2003/20/2025 ALB+A LP+AL T+AST +TBIL I+PT AST (SGOT) 16 IU/L 0-40 normal Not Available [facility] ([facility]) [address] [place], [address], 03/21/2025 06:05:18 03/19/2003/20/2025 ALB+A LP+AL T+AST +TBIL I+PT ALT (SGPT) 14 IU/L 0-44 normal Not Available [facility] ([facility]) [address] [place], [address], 03/21/2025 06:05:18 03/19/2003/20/2025 ALB+A LP+AL T+AST +TBIL I+PT INR 1.0 [...] Not Available [facility] ([facility]) [address] [facility], [place], [address], 03/21/2025 06:05:18 03/19/20 25 03/20/2025 ALB+A LP+AL T+AST +TBIL I+PT prothrombin time 11.2 sec 9.1-12 .0 normal Not Available [facility] ([facility]) [address] [facility], [place], [address], 03/21/2025 06:05:18 03/19/2003/19/2025 HBV FIBRO SURE methodology: Commen t The diana george teste d are perfo rmed by [facility]ro Sure- Speci fic metho ds. Not inten ded for use with other diagn ostic consi derat ions. Not Available [facility] ([facility]) [address] [facility], [place], [address], 03/21/2025 06:05:18 03/19/2003/19/2025 HBV FIBRO SURE interpretati ons: Commen t Quant itati ve resul ts of 6 bioch emica l tests are diana zed using a compu tatio nal algor ithm to provi de a quant itati ve surro gate marke r (0.0- 1.0) for liver fibro sis (META VIR F0-F4 ) and for necro infla mmato ry activ ity (META VIR A0-A3 ). Not Available [facility] ([facility]) [address] [facility], [place], [address], 03/21/2025 06:05:18 03/19/2003/19/2025 HBV FIBRO SURE fibrosis scoring: Commen t <=0.2 1 = Stage F0 - No fibro sis 0.21 - 0.27 = Stage F0 - F1 0.27 - 0.31 = Stage F1 - Jose l fibro sis 0.31 - 0.48 = Stage F1 - F2 0.48 - 0.58 = Stage F2 - Bridg ing fibro sis with few septa 0.58 - 0.72 = Stage F3 - Bridg ing fibro sis with many septa 0.72 - 0.74 = Stage F3 - F4 >0.74 = Stage F4 - Cirrh osis Not Available [facility] ([facility]) [address] [facility], [place], [address], 03/21/2025 06:05:18 03/19/20 25 03/19/2025 HBV FIBRO SURE necroinflamm activity scoring: Commen t <0.17 = Grade A0 - No Activ ity 0.17 - 0.29 = Grade A0 - A1 0.29 - 0.36 = Grade A1 - Minim al activ ity 0.36 - 0.52 = Grade A1 - A2 0.52 - 0.60 = Grade A2 - Moder ate activ ity 0.60 - 0.62 = Grade A2 - A3 >0.62 = Grade A3 - Sever e activ ity Not Available [facility] ([facility]) [address] [facility], [place], [address], 03/21/2025 06:05:18 03/19/2003/19/2025 HBV FIBRO SURE comment: Commen t This test was devel oped and its perfo rmanc e gin cteri stics deter mined by [facility]. It has not been clear ed or appro demario by the Food and Drug Admin istra tion. For quest ions regar ding this repor t pleas e conta ct custo marc servi ce at [phone]. Not Available [facility] ([facility]) [address] [facility], [place], [address], 03/21/2025 06:05:18 03/19/20 25 03/20/2025 HBV FIBRO SURE alpha 2-macroglobu marvin, qn 320 mg/dL 110-27 6 above high normal Not Available [facility] ([facility]) [address] [place], [address], 03/21/2025 06:05:18 03/19/2003/20/2025 HBV FIBRO SURE haptoglobin 163 mg/dL 34-355 Not Available [facility] ([facility]) [address] [place], [address], 03/21/2025 06:05:18 03/19/20 25 03/20/2025 HBV FIBRO SURE apolipoprote in A-1 98 mg/dL 101-17 8 below low normal Not Available [facility] ([facility]) [address] [place], [address], 03/21/2025 06:05:18 03/19/2003/20/2025 HBV FIBRO SURE bilirubin, total 0.3 mg/dL 0.0-1. 2 Not Available [facility] ([facility]) [address] [place], [address], 03/21/2025 06:05:18 03/19/20 25 03/20/2025 HBV FIBRO SURE GGT 18 IU/L 0-65 Not Available [facility] ([facility]) [address] [place], [address], 03/21/2025 06:05:18 03/19/2003/20/2025 HBV FIBRO SURE ALT (SGPT) p5p 17 IU/L 0-55 Not Available [facility] ([facility]) [address] [place], [address], 03/21/2025 06:05:18 03/19/2003/21/2025 HBV FIBRO SURE fibrosis score 0.53 0.00-0 .21 above high normal Not Available [facility] ([facility]) [address] [place], [address], 03/21/2025 06:05:18 03/19/20 25 03/21/2025 HBV FIBRO SURE fibrosis stage Commen t F2 - Bridg ing fibro sis with few septa Not Available [facility] ([facility]) [address] [place], [address], 03/21/2025 06:05:18 03/19/2003/21/2025 HBV FIBRO SURE necroinflamm at activity score 0.09 0.00-0 .17 Not Available [facility] ([facility]) [address] [place], [address], 03/21/2025 06:05:18 03/19/20 25 03/21/2025 HBV FIBRO SURE necroinflamm at activity grade A0-No activi ty Not Available [facility] ([facility]) [address] [place], [address], 03/21/2025 06:05:18 03/19/2003/21/2025 HBV FIBRO SURE limitations: Commen t The negat chandrakant predi ctive value of a Fibro Test score <=0.4 8 (abse nce of clini reji signi fican t fibro sis) was 53% when aguila red to liver biops y in 253 HBV infec benjamin patie nts with a 58% preva lence of signi fican t liver fibro sis (F2, 3 or 4). The posit chandrakant predi ctive value of a Fibro Test score >0.48 (F2, 3, 4) was 89% in that same patie nt cohor t. HBV Fibro SURE is not recom dudley d in patie nts with Gil[place] rt Disea se, acute hemol ysis (e.g. cardi ac prost hesis ) acute hepat itis of the liver , extra -hepa tic neisha stasi s, trans plant patie nts, and/o r renal insuf ficie ncy patie nts. Any of these clini chivo situa tions may lead to inacc urate quant itati ve predi ction s of fibro sis and necro infla mmato ry activ ity in the liver . Not Available [facility] ([facility]) [address] [facility], [place], [address], 03/21/2025 06:05:18 03/19/20 25 03/20/2025 GLOM FILT RATE, ESTIM ATED creatinine 1.65 mg/dL 0.76-1 .27 above high normal Not Available [facility] ([facility]) [address] [place], [address], 03/21/2025 06:05:19 03/19/2003/20/2025 GLOM FILT RATE, ESTIM ATED eGFR 44 mL/mi n/1.7 3 >59 below low normal Not Available [facility] ([facility]) [address] [place], [address], 03/21/2025 06:05:19 03/19/2003/20/2025 HEP B SURFA CE AB, QUAL hep B surface Ab, qual Reacti ve Non React chandrakant: Not immun e to HBV infec tion. Equiv ocal: Unabl e to deter mine if anti- HBs is prese nt at level s consi stent with immun ity. React chandrakant: Anti- HBs sharmila ntrat ion detec benjamin at great er than 10 mIU/m L. Indiv idual is consi dered to be immun e to infec tion with HBV. Not Available [facility] ([facility]) [address] [place], [address], 03/21/2025 06:05:19 04/01/2004/01/2025 HBV REAL- TIME PCR, QUANT test information: Commen t The repor table range for this assay is 10 IU/mL to 1 blayne on IU/mL . Not Available [facility] ([facility]) [address] [place], [address], 04/04/2025 14:06:16 04/01/20 25 04/04/2025 HBV REAL- TIME PCR, QUANT HBV IU/mL HBV DNA not detect ed IU/mL Not Available [facility] ([facility]) [address] [place], [address], 04/04/2025 14:06:16 04/01/2004/04/2025 HBV REAL- TIME PCR, QUANT log10 HBV IU/mL COMMEN T log10 _IU/m L Unabl e to calcu late resul t since non-n umeri c resul t obtai petra for compo nent test. Not Available [facility] ([facility]) [address] [facility], [place], [address], 04/04/2025 14:06:16 07/30/2007/31/2025 HBEAB +AG+H BSAB+ AG HBsAg screen Negati ve negati ve Not Available [facility] ([facility]) [address] [place], [address], 08/05/2025 12:06:13 07/30/2007/31/2025 HBEAB +AG+H BSAB+ AG hep BE Ag Negati ve negati ve Not Available [facility] ([facility]) [address] [facility], [place], [address], 08/05/2025 12:06:13 07/30/2007/31/2025 HBEAB +AG+H BSAB+ AG hep BE Ab Reacti ve negati ve abnormal Not Available [facility] ([facility]) [address] [place], [address], 08/05/2025 12:06:13 07/30/2007/31/2025 HBEAB +AG+H BSAB+ AG hep B surface Ab, qual Reacti ve Non React chandrakant: Not immun e to HBV infec tion. Anti- HBs undet ectab le or less than 10 mIU/m L. React chandrakant: Evide nce of HBV immun ity. Anti- HBs level s great er than 10 mIU/m L. Not Available [facility] ([facility]) [address] [place], [address], 08/05/2025 12:06:13 07/30/2007/31/2025 CMP14 glucose 188 mg/dL 70-99 above high normal Not Available [facility] ([facility]) [address] [facility] [place], [address], 08/05/2025 12:06:14 07/30/20 25 07/31/2025 CMP14 BUN 19 mg/dL 8-27 normal Not Available [facility] ([facility]) [address] [facility] [place], [address], 08/05/2025 12:06:14 07/30/2007/31/2025 CMP14 creatinine 1.78 mg/dL 0.76-1 .27 above high normal Not Available [facility] ([facility]) [address] [facility] [place], [address], 08/05/2025 12:06:14 07/30/2007/31/2025 CMP14 eGFR 40 mL/mi n/1.7 3 >59 below low normal Not Available [facility] ([facility]) [address] [facility], [address], 08/05/2025 12:06:14 07/30/2007/31/2025 CMP14 BUN/creatini ne ratio 11 10-24 normal Not Available [facility] ([facility]) [address] [facility] [place], [address], 08/05/2025 12:06:14 07/30/2007/31/2025 CMP14 sodium 138 mmol/ L 134-14 4 normal Not Available [facility] ([facility]) [address] [facility], [address], 08/05/2025 12:06:14 07/30/2007/31/2025 CMP14 potassium 4.9 mmol/ L 3.5-5. 2 normal Not Available [facility] ([facility]) [address] [place], [address], 08/05/2025 12:06:14 07/30/2007/31/2025 CMP14 chloride 101 mmol/ L 96-106 normal Not Available [facility] ([facility]) [address], [address], 08/05/2025 12:06:14 07/30/2007/31/2025 CMP14 carbon dioxide, total 21 mmol/ L 20-29 normal Not Available [facility] ([facility]) [address] [place], [address], 08/05/2025 12:06:14 07/30/2007/31/2025 CMP14 calcium 9.0 mg/dL 8.6-10 .2 normal Not Available [facility] ([facility]) [address] [place], [address], 08/05/2025 12:06:14 07/30/2007/31/2025 CMP14 protein, total 7.2 g/dL 6.0-8. 5 normal Not Available [facility] ([facility]) [address], [address], 08/05/2025 12:06:14 07/30/20 25 07/31/2025 CMP14 albumin 4.2 g/dL 3.8-4. 8 normal Not Available [facility] ([facility]) [address], [address], 08/05/2025 12:06:14 07/30/2007/31/2025 CMP14 globulin, total 3.0 g/dL 1.5-4. 5 Not Available [facility] ([facility]) [address] [place], [address], 08/05/2025 12:06:14 07/30/2007/31/2025 CMP14 bilirubin, total 0.4 mg/dL 0.0-1. 2 normal Not Available [facility] ([facility] [address] [facility], [address], 08/05/2025 12:06:14 07/30/2007/31/2025 CMP14 alkaline phosphatase 110 IU/L 47-123 normal Not Available [facility] ([facility]) [address] [place], [address], 08/05/2025 12:06:14 07/30/2007/31/2025 CMP14 AST (SGOT) 18 IU/L 0-40 normal Not Avail able [facility] ([facility]) [address] [place], [address], 08/05/2025 12:06:14 07/30/2007/31/2025 CMP14 ALT (SGPT) 13 IU/L 0-44 normal Not Avail able [facility] ([facility]) [address] [place], [address], 08/05/2025 12:06:14 07/30/2008/05/2025 CMP14 hemoglobin A1C 8.2 % 4.8-5. 6 above high normal Predi abete s: 5.7 - 6.4 Diabe george: >6.4 Glyce tiara contr ol for adult s with diabe george: <7.0 Not Available [facility] ([facility]) [address] [place], [address], 08/05/2025 12:06:14 07/30/2007/30/2025 HBV REAL- TIME PCR, QUANT test information: Commen t The repor table range for this assay is 10 IU/mL to 1 blayne on IU/mL . Not Available [facility] ([facility]) [address] [place], [address], 08/05/2025 12:06:15 07/30/2007/31/2025 HBV REAL- TIME PCR, QUANT HBV IU/mL HBV DNA not detect ed IU/mL Not Available [facility] ([facility]) [address] [place], [address], 08/05/2025 12:06:15 07/30/20 25 07/31/2025 HBV REAL- TIME PCR, QUANT log10 HBV IU/mL COMMEN T log10 _IU/m L Unabl e to calcu late resul t since non-n umeri c resul t obtai petra for compo nent test. Not Available [facility] ([facility]) [address], [place], [address], 08/05/2025 12:06:15 08/26/20 23 06/20/2023 US, abdom en No observ ation record ed. [email or web address] Not Available 08/26 16:46:31 07/05/20 24 03/08/2024 imagi ng/di agnos tic resul t No observ ation record ed. [email or web address] Not Available 07/05 10:01:27 07/05/20 24 02/13/2024 imagi ng/di agnos tic resul t No observ ation record ed. [email or web address] Not Available 07/05 10:04:14 02/10/20 25 02/05/2025 US, abdom en No observ ation record ed. [email or web address] Not Available 2024 12:47:09 Result Notes None recorded. Problems Name Problem SNOMED Code Status Onset Date Resolution Date Notes Provider Name and Address Organization Details Recorded Time Cholelith iasis with obstructi on 43015790 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 with obstructio n; 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; Report Immunity to Registry: Yes; Notes: u/s 2010; Not Available [facility] 4 06:58:53 Gallbladd er and bile duct calculi 810871940 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; 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; Report Immunity to Registry: Yes; Notes: u/s 2010; Not Available [facility] 4 06:58:53 Abdominal aortic aneurysm 431606841 Active 2013 Abdominal aortic aneurysm without mention of rupture; snomeddesc ription: Abdominal aortic aneurysm; Report Immunity to Registry: Yes; Abdominal aortic aneurysm; snomeddesc ription: Abdominal aortic aneurysm; Report Immunity to Registry: Yes; Not Available [facility] 4 06:58:53 Myocardia l infarctio n 18107586 Active 2013 Myocardial infarction ; snomeddesc ription: Myocardial infarction ; Report Immunity to Registry: Yes; Notes: 07/03/14 stent x 3; Not Available [facility] 4 06:58:53 Acute myocardia l infarctio n 70947107 Active 2013 Acute myocardial infarction , unspecifie d site; snomeddesc ription: Myocardial infarction ; Report Immunity to Registry: Yes; Notes: 07/03/14 stent x 3; Not Available [facility] 4 06:58:54 Chronic obstructi ve pulmonary disease 57271586 Active 2019 Chronic obstructiv e lung disease; snomeddesc ription: Chronic obstructiv e lung disease; Report Immunity to Registry: Yes; Notes: pt reports dx by PCP; Chronic obstructiv e pulmonary disease, unspecifie d; snomeddesc ription: Chronic obstructiv e lung disease; Report Immunity to Registry: Yes; Notes: pt reports dx by PCP; Not Available [facility] 4 06:58:53 Cerebrova scular accident 456839864 Active 2019 Cerebrovas cular accident; snomeddesc ription: Cerebrovas cular accident; Report Immunity to Registry: Yes; Notes: hx; Not Available [facility] 4 06:58:53 Cerebral infarctio n 595426293 Active 2019 Cerebral infarction , unspecifie d; snomeddesc ription: Cerebrovas cular accident; Report Immunity to Registry: Yes; Notes: hx; Not Available [facility] 4 06:58:54 Chronic kidney disease 668782928 Active 2021 Chronic kidney disease; snomeddesc ription: Chronic kidney disease; Report Immunity to Registry: Yes; Notes: 03/2021 eGFR =34; Not Available [facility] 4 06:58:53 Chronic type B viral hepatitis 78589528 Active 2022 Chronic type B viral hepatitis; [...] 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; F3 2020; Not Available [facility] 4 06:58:53 Problem Notes None recorded. Medical Equipment None [...] 180; Duration : 90; 0 refill(s ) 07/042 completed Duration : 90; VACCINE_ IND: no; [...] 19,400 unit/0.65 mL subcutane ous suspensio [place] 11395 Quantity : 1; Duration : 1; 0 [...] no; Not Available Not Available Not Available ticagrelo r 60 mg tablet active Not Available Not [...] Not Available Not Available [employer]aster Mixer active Not Available Not Available Not Available Prevnar 20 (PF) 0.5 mL intramusc ular syringe - Quantity : 1; Duration : 1; 0 refill(s ) 03/04 completed Frequenc y: x1; Duration : 1; VACCINE_ IND: no; VACCINE_ NAME: Pneumoco ccal conjugat e PCV20, polysacc haride [id number] conjugat e, adjuvant , PF; SU_FULL_ NAME: [...] Body mass index (BMI) Body weight Systolic And Diastolic Provider Name and Address Organization Details Last Updated DateTime 5 172.72 cm 67 /min 10 /min 97.8 [degF] 24 kg/m2 81939.5 9 g 146/60 mm[Hg] Daniela JEFFERY 5 10:52:47 Date Recorded Body height Heart rate Respiratory rate Body temperature Body mass index (BMI) Body weight Systolic And Diastolic Provider Name and Address Organization Details Last Updated DateTime 5 172.72 cm 64 /min 10 /min 97.9 [degF] 23.7 kg/m2 17497.4 1 g 118/80 mm[Hg] Daniela JEFFERY 5 13:02:03 Date Recorded Body height Heart rate Respiratory rate Body temperature Body mass index (BMI) Body weight Oxygen saturation Oxygen saturation in Arterial blood by Pulse oximetry Systolic And Diastolic Provider Name and Address Organization Details Last Updated DateTime 4 172.72 cm 56 /min 10 /min 98.5 [degF] 23.4 kg/m2 72854.2 2 g 98 % 98 % 118/58 mm[Hg] Daniela JEFFERY 4 12:30:04 Date Recorded Body height Heart rate Body temperature Body mass index (BMI) Body weight Systolic And Diastolic Provider Name and Address Organization Details Last Updated DateTime 5 172.72 cm 64 /min 97.6 [degF] 24.3 kg/m2 44531.7 8 g 102/60 mm[Hg] Carine OKEEFE MD [facility] 5 12:40:11 Date Recorded Body height Body mass index (BMI) Body weight Body temperature Oxygen saturation Oxygen saturation in Arterial blood by Pulse oximetry Heart rate Systolic And Diastolic Provider Name and Address Organization Details Last Updated DateTime 3 172.72 cm 22.1 kg/m2 35035.6 9 g 98 [degF] 98 % 98 % 68 /min 110/78 mm[Hg] Eunice OKEEFE MD [facility] 14:31:17 Social History Question Answer Notes LastModified by Organizat ion Details LastModified Time Tobacco Smoking Status Never Smoker JENIFER Rodriguez MD [facility] 08/23/2023 14:32:12 Are You Blind Or Do You Have Difficulty Seeing? No [email or web address] Information not available 08/23/2023 Are You Deaf Or Do You Have Serious Difficulty Hearing? No [email or web address] Information not available 08/23/2023 Which Of Your Hands Is Dominant? Right [email or web address] Information not available 08/23/2023 Do You Have Difficulty Walking Or Climbing Stairs? Yes Stroke [email or web address] Information not available 08/23/2023 Sex: Male Functional Status Question Answer Note LastModified by [employer] Details LastModified Time Do you have transportation difficulties? No [email or web address] Information not available 08/23/2023 Are you able to walk independently without assistance or assistive devices? YESASSIST pt walks with a dorene Information not available 08/23/2023 Do you have difficulty doing errands alone? No [email or web address] Information not available 08/23/2023 Are you able to care for yourself independently? Yes [email or web address] Information not available 08/23/2023 Do you have difficulty dressing, bathing, grooming, or toileting? Yes pt has a person that helps with bathing and dressing [email or web address] Information not available 08/23/2023 Mental Status Question Answer Note LastModified by [employer] Details LastModified Time Do you feel stressed (tense, restless, nervous, or anxious, or unable to sleep at night)? [id number] [email or web address] Information not available 08/23/2023 Do you have difficulty concentrating, remembering or making decisions? No [email or web address] Information no t available 08/23/2023 Family History Nothing Reported Notes:Family history unknown , Response Property: Yes; , No known relatives, Response Property: Yes; Medical History Condition Response Coronary Artery Disease Y Heart Disease Y Stroke Y Diverticulitis Y Immunizations Vaccine Type Date Status Note Provider Nam e and Address Organization Details Recorded Time Influenza, split virus, quadrivalent, preservative 2 completed Not Available [facility] 12/13/2023 06:54:23 Influenza, split virus, quadrivalent, preservative 1 completed Not Available [facility] 12/13/2023 06:54:24 Past Encounters Encounter ID Performer Location Encounter Start Date Encounter Closed Date Diagnosis/Indication Diagnosis SNOMED-CT Code Diagnosis ICD10 Code Diagnosis IMO Codes Diagnosis Note [id number] Marie Okeefe MD Main Office [address] [place] [address] 08/23/2023 14:09:45 08/23/2023 14:48:23 Type B viral hepatitis 28501884 B19.10 HBV: Continue Entecavir 0.5 mg po [...] of care reviewed. Questions and concerns addressed [id number] Marie Okeefe MD Main Office [address] [place] [address] 07/03/2024 12:11:28 07/03/2024 12:39:10 Type B viral hepatitis 57750499 B19.10 HBV: Continue Entecavir 0.5 mg po [...] of care reviewed. Questions and concerns addressed [id number] Marie Okeefe MD Main Office [address] [place] [address] 2024 10:37:00 2024 11:19:47 Type B viral hepatitis 73022339 B19.10 HBV: Continue Entecavir 0.5 mg po [...] of care reviewed. Questions and concerns addressed [id number] Marie Okeefe MD Main Office [address] [place] [address], [place] [address] 03/18/2025 12:44:50 03/18/2025 14:07:57 Type B viral hepatitis 08561920 B19.10 HBV:Contin ue Entecavir 0.5 mg po qd for HBV.labs ordered: HBV VL PCR pt has a history of stroke, and he says treatment was declined due to HBV hx because an immunosupp ressant medication could lead to HBV reactivati on. Risk of HBV reactivati on on this patient would be less likely or decreased in the setting of HBV tx which this pt has been on years, controlled , stable; HBV VL nondetecte d at least as of latest HBV VL available in 2022. he is also compliant with HBV tx and other tx and instructio ns.he will get a HBV VL PCR test done (lab did not draw the labs the last time).stri ct compliance addressed w correct use to keep HBV suppressio n. do not stop medication without supervisio n to avoid HBV flare up/liver failure.av oid ETOHhydrat ionvaccine s have been reviewed such as RSV, prevnar among other.Plan of care reviewed. Questions and concerns addressed [id number] Marie Okeefe MD Main Office [address] [place] [address] 07/28/2025 12:20:31 07/28/2025 13:02:56 Type B viral hepatitis [id number] B19.10 HBV:Contin ue Entecavir 0.5 mg po qd for HBV.labs ordered: HBV VL PCRstable fibrosure [id number] l HCC screen HBV u/s abd 2025;stric t compliance addressed w correct use to keep HBV suppressio n. do not stop medication without supervisio n to avoid HBV flare up/liver failure.av oid ETOHhydrat ionflu and Covid vaccine discussed; already rec'd for this seasonPlan of care reviewed. Questions and concerns addressed Health Concerns Section Related Observation LastModified by Organization Detai ls LastModified Time None Recorded Concern Status LastModified by Organization Details LastModified Time None Recorded Advance Directives Directive None Recorded Payers Insurance Date Sequence Insurance Name Policy Number Policy Garcia Covered Member ID Garcia Member ID Guarantor Name 07/25/2025 1 [place] [employer] Phan Gipson [id number] Phan Gipson 2024 2 [place] [id number] Phan Gipson [id number] Phan Gipson 07/25/2025 2 [place] [employer] [id number] Phan Gipson [id number] Phan Gipson Notes Date Note Type Note Provider Name and Address Organization Details Recorded Time 3 text/html ROS as noted in the HPI f/u HBV. CKDon Entecavir 0.5 mg 1 [...] booster; will get arexvy. Marie Okeefe MD [address] [place] [address], [place], [address], [place] - MARIE OKEEFE MD [facility] 08/23/2023 16:59:39 4 text/html ROS as noted in the HPI f/u HBV. CKDon Entecavir 0.5 mg 1 [...] booster; will get arexvy. Marie Okeefe MD [address] [place] [address], [phone], [facility] - MARIE OKEEFE MD [facility] 07/03/2024 12:46:44 5 text/html ROS as noted in the HPI f/u HBV. CKDon Entecavir 0.5 mg 1 [...] n/v/d. no CP Marie Okeefe MD [address] [place], [address], [place] JENIFER OKEEFE MD [facility] 01/02/2025 22:53:47 5 text/html ROS as noted in the HPI f/u HBV. CKDpt is room with automatic stacker.on Entecavir 0.5 mg 1 tab po qdtolerated well. stable.compliance ; denies missing dosestolerates wellno concerns.CKD. DMmed list reviewedlabs done, but no HBV VL PCR not done at lab( it was ordered) pt has a history of stroke, and he says treatment with an immunosuppressant was declined due to HBV hx because medication could lead to HBV reactivation. From HBV standpoint,Pt has been on tx for years, controlled, stable with HBV VL nondetceted at least as of 2022. he is also compliant with HBV tx and other tx and instructions.he will get a HBV VL PCR test done (lab did not draw the labs the last time).he say the provider on TV talking about the positive impact of tx on patients with stroke hx. no hx HIV. no Hx HCV.06/2024 HCV neg; eGFR=42; liver function wnl04/2023 eGFR-32; HBV VL nondetceted; ALT/AST wnl ; HIV neg; HCV neg; HDV ab neg;10/2022 eGFR>40; ALt/AST wnl; HBV VL nondetceted; HDV neg; neg treponemal ab testno jaundice; no edema. no abd painUS 01/2025 4cm aneurysm; cholelithiasis, steatosisUs renal 02/2024; abd aorta scan 01/2024; reports had u/s abd in Dr Carrera's office summer 2023; no abnormalities w AAA.u/s abd 06/2022 and 06/2023 no mass. 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 n/a Marie Okeefe MD [address] [place], [address], [place] JENIFER OKEEFE MD [facility] 03/27/2025 23:55:40 5 text/html ROS as noted in the HPI f/u HBV. CKD on Entecavir 0.5 mg 1 tab po qd tolerated well. stable.Noticed back in April, after he returned from [place], he had not been taking his meds, unknown how many weeks he may have missed; has restarted taking meds once he realized he had extra bottles of Entecavir. Believes he started missing doses after his labs were done last. tolerates well no concerns.Some issues w/claudication LLE, some LE edema; none today CKD. DM med list reviewed no jaundice; no edema; no n/v/d. Reports he rec'd annual flu vaccine recently at PCP office and the Covid vaccine today pt has a history of stroke, and he says treatment with an immunosuppressant was declined due to HBV hx because medication could lead to HBV reactivation. Pt has been on tx for years, controlled, stable with HBV VL nondetected no hx HIV. no Hx HCV. 02/2025 HBV VL nondetected; eGFR 44; F3 fibrosure; ALT 14; AST 16; alb 4.4; t bili 0.3; 06/2024 HCV neg; eGFR=42; liver function wnl 04/2023 eGFR-32; HBV VL nondetected; ALT/AST wnl ; HIV neg; HCV neg; HDV ab neg; 10/2022 eGFR>40; ALt/AST wnl; HBV VL nondetected; HDV neg; neg treponemal ab test US 01/2025 4cm aneurysm; cholelithiasis, steatosis Us renal 02/2024; abd aorta scan 01/2024; reports had u/s abd in Dr Carrera's office summer 2023; no abnormalities w AAA. u/s abd 06/2022 and 06/2023 no mass. 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 n/a Marie Okeefe MD [address] [place] [address], [place], [address], [place] - MARIE OKEEFE MD [facility] 07/28/2025 13:32:58
--- OUTSIDE RECORDS SUMMARY | 2025-09-01 13:23 | XMS_ITS | Clinical Summary ---
Author Organization [facility] Address [address] [place] [address] Phone Care Team Providers Care Environmental Health And Safety Leader Name Role Phone Ryder Lou MD Primary Care Provider [phone] Medications insulin aspart (NovoLOG) 100 unit/mL injection [...] (10/06/2024): OS Cataract 05/07/2019 Chronic hepatitis B ([facility] V24, [facility] V28) 0 05/07/2019 Overview (10/06/2024): Truvada Claudication ([facility] V24) 05/07/2019 Condyloma acuminata 05/07/2019 Genital herpes 05/07/2019 Glaucoma 05/07/2019 Hyperlipidemia 05/07/2019 Hypertension 05/07/2019 Insomnia 05/07/2019 Lumbar radiculopathy 05/07/2019 Myelinated nerve fibers of optic disc, right Coronary artery disease 05/07/2019 Overview (10/06/2024): Old NSTEMI, stents x 3 Retinal artery plaque 05/07/2019 Pituitary mass ([facility] V24) 05/07/2019 Type 1 diabetes mellitus ([facility] V24, [facility] V 28) 05/07/2019 Abdominal aortic aneurysm (A AA) without rupture ([facility] V24) 01/09/2019 Carotid stenosis, bilateral 01/09/2019 PAD (peripheral artery disease) ([facility] V24) Immunizations Immunization Administration Dates Next Due Pneumococcal conjugate 13 va lent (Prevnar 13, PCV13) 2mo and older 02/09/2016 Pneumococcal, Unspecified 04/13/2017 Tdap Tetanus diptheria acell ular pertussis (Boostrix; Adacel) 7yo and older 04/16/2018,04/13/2017 Zoster Live 04/20/2016 Surgical History Surgery Date Site/Laterality Comments CAROTID ENDARTERECTOMY 07/2009 Right PROCEDURE: HISTORICAL CAROTID ENDART APPENDECTOMY PROCEDURE: HISTORICAL APPENDECTOMY OTHER SURGICAL HISTORY 1997 PROCEDURE: MO COLECTOMY PARTIAL W/ANASTOMOSIS; COMMENT: sigmoid resection for diverticulitis OTHER SURGICAL HISTORY 07/07/2015 PROCEDURE: HISTORICAL CA BASAL CELL; COMMENT: removed from nose CARDIAC CATHETERIZATION 06/2014 PROCEDURE: HISTORICAL CARDIAC CATH; COMMENT: stents to RCA Medical History Medical History Date Comments Abdominal aortic aneurysm (A AA) without rupture ([facility] V24) 01/09/2019 DX:Abdominal aortic aneu rysm (AAA) without rupture (HCC) Acquired melanocytic nevus of retina 05/07/2019 DX:Acquired melanocytic nevus of retina; COMMENT: OS Carotid stenosis, bilateral 01/09/2019 DX:C arotid stenosis, bilateral Cataract 05/07/2019 DX:Cataract Chronic hepatitis B ([facility]/HCC V24, [facility] V28) 05/07/2019 DX:Chronic hepatitis B (HCC) ; COMMENT: Truvada Claudication ([facility] V24) 05/07/2019 DX:Cl audication (HCC) Condyloma [...] disc, right PAD (peripheral artery disea se) ([facility] V24) 01/09/2019 DX:PAD (peripheral artery di sease) ([facility]) Pituitary mass ([facility] V24) 05/07/2019 DX: Pituitary mass (HCC) Retinal artery plaque 05/07/2019 DX:Retinal artery plaque Type 1 diabetes mellitus wit h cataract (CMS/HCC V24, [facility] V28) 05/07/2019 DX:Type 1 diabetes mellitus with cataract (HCC) Type 1 diabetes mellitus wit h peripheral vascular disease (CMS/HCC V24, [facility] V28) 05/07/2019 DX:Type 1 diabetes mellitus with peripheral vascular disease (HCC) Family History Medical History Relation Name Comments Alcohol abuse Father throat cancer, [place], AAA Heart attack Maternal Grandfather Other: hyperlipidemia Mother BCC sk in Relation Name Status Comments Father Maternal Grandfather Mother Social History Tobacco Use Types Packs/Day Years Used Date Smoking Tobacco: Former Cigarettes 0 Q uit: 01/12/2021 Smokeless Tobacco: Never Alcohol [...] Description 01/26/2026 1:30 PM EDT Ancillary Procedure [facility] [address] [facility] [address] [place] [address] 03/23/2026 11:30 AM EDT Office Visit Vascular Surgery - [place] [address] [facility] [address] [place] [address] Alena Lela PA [address] [facility] [address] [place] [address] Health Maintenance Due Date Last Done Comments Colorectal Cancer Screening: Colonoscopy 1950 Diabetes: Annual GFR (Glomerular Filtration Rate) 1950 Diabetes: Annual Foot Exam 12/30/1961 Diabetes: Annual Retina Eye Exam 12/30/1961 Hepatitis A Vaccines (1 of 2 - Risk 2-dose series) 12/30/1970 Hepatitis B Vaccines (1 of 3 - Risk 3-dose series) 2011 Cholesterol Screening (Lipid Panel) 10/01/2022 Falls Risk Assessment 10/01/2022 Hepatitis C [...] age to complete this topic Insurance MEDICARE [facility] Care Teams Environmental Health And Safety Leader Relationship Specialty Start Date End Date Ryder Lou MD [address] PCP - General Internal Medicine 11/27/18
--- OUTSIDE RECORDS SUMMARY | 2025-09-01 13:24 | XMS_ITS | Encounter Summary ---
Author Organization [facility] Address [address] [facility] [[email or web address]] [address] [place] [address] Phone Care Team Providers Care Architectural Manager Name Role Phone Afia Cabrera MD Primary Care Provider [phone] Encounter Details Date Type Department Care Team (Late Contact Info) Description 12/20/2021 Documentation Only [facility] [address] [facility] [[email or web address]] [address] [place] [address] Chandrakant Lei MD [address] [address] Social History Tobacco Use Types [...] [facility] [address] [place] [address] Chandrakant Lei MD [address] [address] documented as of this encounter Visit Diagnoses Not on filedocumented in this encounter Care Teams Architectural Manager Relationship Specialty Start Date End Date Afia Cabrera MD [address] [address] PCP - General Family Medicine 04/28/21 documented as of this encounter
--- OUTSIDE RECORDS SUMMARY | 2025-09-01 13:24 | XMS_ITS | Data Portability ---
Author Organization [facility], Main Office Address [address] [facility] [address] [place] [id number] Care Team Providers Care Food Stylist Name Role Phone MARIE OKEEFE Infectious Disease [phone] DELMA BORRERO Casting And Curing Operator RAI PEREIRA Clinical Trials Systems Administrator DAVID IVEY Bag Adjuster ATIYA COHEN Vascular Surgeon [phone] [facility] ENDOCRINOLOG[facility] Endocrinolo gist ENZO ROSE Neurologist SHEA PEREZ Tax Adjuster OUSMANE SEGURA Bag Adjuster [phone] ROBERT REHMAN Insulation Cutter JUAN CARLOS CABRERA Primary Care Provider [phone] BETSY LOWE Real Estate Leasing Agent [facility] Vascular Surgeon [phone] JOSE ALFREDO GALLEGO Vascular Surgeon CHARLIE DHALIWAL Vascular Surgeon Assessment Encounter Date Assessment Date Assessment LastModified by Organization Details LastModified Time 05/05/2025 05/05/2025 See for local reaction to injection of Enteracept in the perispinal space for management of post-CVA Hemiplegia. Effects of adverse reaction now resolved. [email or web address] Not available 05/09/2025 08:15:09 07/07/2025 07/07/2025 Blood pressure management: -Continue amlodipine 10 mg daily and metoprolol succinate 100 mg daily. -Reduce hydralazine to 25 mg nightly for 2 weeks, with plan to discontinue at next visit if blood pressure remains stable. -Follow-up labs: Check renal function at upcoming visit. If blood pressure increases and renal function is acceptable, initiate ARB (rather than GRETTA inhibitor). Repeat blood work 2 weeks after starting ARB to monitor for MALLY. -Low sodium diet discussed -Counseled on diet/exercise -Red flags of HTN emergency discussed and when to go to ED. - Diabetes management: Patient to follow up with project administrator and product safety officer regarding possible initiation of SGLT2 inhibitor. Pituitary adenoma: Referral placed to new neurosurgeon for ongoing management. Follow-up: Return in 2 weeks for annual wellness visit and reassessment of blood pressure and medication plan. keith Not available 07/07/2025 12:18:10 Plan of Treatment Reminders Order Date Submit Date Provider Last Modified By Organization Details Last Modified Time Details Appointments FOLLOW UP 2025 11:00A Vita Cabrera MD Not available Not available Not available Lab magnesium , serum or plasma 2024 025 [facility] (Centralized Electronic Ordering - All Locations), Patient Can Go To The Location Of Their Choice, 07/23/2025 08:08:33 vitamin D, 25-hydrox y, total, serum 2024 025 [facility], [address] [place] [address], [address], 07/23/2025 08:08:33 pro BNP (pro B-type natriuret ic peptide), serum or plasma 2024 025 [facility] (Centralized Electronic Ordering - All Locations), Patient Can Go To The Location Of Their Choice, 04/17/2025 18:05:48 TSH, ultra-sen sitive, serum 2024 025 [facility] (Centralized Electronic Ordering - All Locations), Patient Can Go To The Location Of Their Choice, [id number] 04/17/2025 18:05:48 CMP, serum or plasma 2024 025 [facility] (Centralized Electronic Ordering - All Locations), Patient Can Go To The Location Of Their Choice, 04/17/2025 18:05:46 urinalysi s, complete 2024 025 [facility] (Centralized Electronic Ordering - All Locations), Patient Can Go To The Location Of Their Choice, 04/17/2025 18:05:47 Mycobacte rium tuberculo sis stimulate d gamma interfero n, qual, blood 2024 025 [facility] (Centralized Electronic Ordering - All Locations), Patient Can Go To The Location Of Their Choice, 04/17/2025 18:05:47 CBC w/ auto diff 2024 025 [facility] (Centralized Electronic Ordering - All Locations), Patient Can Go To The Location Of Their Choice, 04/17/2025 18:05:46 Referral neurologi chivo surgeon referral - Former patient of Nati Sylvester who retired, needs to establish 2024 025 [facility], [address] [place] [address], [place], [address], 07/07/2025 11:50:13 physical therapist referral - Left sided hemiplegi a after CVA in 2020. Now with new spasms and decreased ROM. please evaluate and treat for left sided spasticit y. [address] [facility], [address] [facility], [place], [address], 06/04/2025 09:03:18 Procedures None recorded. Surgeries None recorded. Imaging US, duplex, venous, lower extremity , complete - r/o DVT 2024 025 [facility], [address] [facility], [facility] [address], [place], [address], 04/16/2025 09:14:47 Medication Orders hydralazi ne 50 mg tablet 2024 025 [facility], [address] [facility], [place], [address], 07/22/2025 12:14:33 Patient TargetsNo targets recorded. Patient Instructions Encounter Date Encounter Id Patient Instructions Last Modified By Organization Details Last Modified Time 04/15/2025 [id number] leg and ankle edema: care instructions keith Not available 04/15/2025 10:07:38 07/22/2025 [id number] advance care planning: care instructions ckojovita Not available 07/22/2025 11:48:31 hepatitis B: car e instructions ckokar Not available 07/22/2025 11:48:31 preventing falls : care instructions ckokar Not available 07/22/2025 11:48:31 well visit, over 65: care instructions ckokar Not available 07/22/2025 11:48:31 medicare preventive services guide (male 74 rs and under) ckokar Not available 07/22/2025 11:48:31 chronic obstructive pulmonary disease (COPD): care instructions ckojovita Not available 07/22/2025 11:48:31 learning about copd and how to prevent lung infections ckokar Not available 07/22/2025 11:48:31 Reason for Referral Physical Therapist Referral for 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 Now with new spasms and decreased ROM. please evaluate and treat for left sided spasticity. Referring Physician: Ryder Lou, Internal Medicine, Encounter Date: 05/05/2025 Neurological Surgeon Referra miryam for Pituitary adenoma Former patient of Nati Sylvester who retired, needs to establish Referring Physician: Juan Carlos Cabrera, Family Medicine, Encounter Date: 07/07/2025 Results Created Date Observation Date Name Description Value Unit Range Abnormal Flag Note LastModifiedBy Organization Detail LastModifiedTime 04/15/20 25 04/15/2025 CBC WITH DIFFE RENTI AL/PL ATELE T WBC 7.4 x10e3 /uL 3.4-10 .8 normal Not Available [facility] ([facility]) [address] [facility], [place], [address], 04/17/2025 18:05:46 04/15/20 25 04/15/2025 CBC WITH DIFFE RENTI AL/PL ATELE T RBC 4.53 x10e6 /uL 4.14-5 .80 normal Not Available [facility] ([facility]) [address] [place], [address], 04/17/2025 18:05:46 04/15/20 25 04/15/2025 CBC WITH DIFFE RENTI AL/PL ATELE T hemoglobin 13.0 g/dL 13.0-1 7.7 normal Not Available [facility] ([facility]) [address] [place], [address], 04/17/2025 18:05:46 04/15/20 25 04/15/2025 CBC WITH DIFFE RENTI AL/PL ATELE T hematocrit 40.8 % 37.5-5 1.0 normal Not Available [facility] ([facility]) [address] [place], [address], 04/17/2025 18:05:46 04/15/20 25 04/15/2025 CBC WITH DIFFE RENTI AL/PL ATELE T MCV 90 fL 79-97 normal Not Available [facility] ([facility]) [address] [place], [address], 04/17/2025 18:05:46 04/15/20 25 04/15/2025 CBC WITH DIFFE RENTI AL/PL ATELE T MCH 28.7 pg 26.6-3 3.0 normal Not Available [facility] ([facility]) [address] [place], [address], 04/17/2025 18:05:46 04/15/20 25 04/15/2025 CBC WITH DIFFE RENTI AL/PL ATELE T MCHC 31.9 g/dL 31.5-3 5.7 normal Not Available [facility] ([facility]) [address] [place], [address], 04/17/2025 18:05:46 04/15/20 25 04/15/2025 CBC WITH DIFFE RENTI AL/PL ATELE T RDW 14.7 % 11.6-1 5.4 Not Available [facility] ([facility]) [address] [facility], [place], [address], 04/17/2025 18:05:46 04/15/20 25 04/15/2025 CBC WITH DIFFE RENTI AL/PL ATELE T platelets 245 x10e3 /uL 150-45 0 normal Not Available [facility] ([facility]) [address] [facility], [place], [address], 04/17/2025 18:05:46 04/15/20 25 04/15/2025 CBC WITH DIFFE RENTI AL/PL ATELE T neutrophils 67 % not estab. normal Not Available [facility] ([facility]) [address] [facility], [place], [address], 04/17/2025 18:05:46 04/15/20 25 04/15/2025 CBC WITH DIFFE RENTI AL/PL ATELE T lymphs 19 % not estab. normal Not Available [facility] ([facility]) [address] [facility], [place], [address], 04/17/2025 18:05:46 04/15/20 25 04/15/2025 CBC WITH DIFFE RENTI AL/PL ATELE T monocytes 10 % not estab. normal Not Available [facility] ([facility]) [address] [facility], [place], [address], 04/17/2025 18:05:46 04/15/20 25 04/15/2025 CBC WITH DIFFE RENTI AL/PL ATELE T eos 3 % not estab. normal Not Available [facility] ([facility]) [address] [facility], [place], [address], 04/17/2025 18:05:46 04/15/20 25 04/15/2025 CBC WITH DIFFE RENTI AL/PL ATELE T basos 1 % not estab. normal Not Available [facility] ([facility]) [address] [place], [address], 04/17/2025 18:05:46 04/15/20 25 04/15/2025 CBC WITH DIFFE RENTI AL/PL ATELE T immature cells PRODUCTION CONTROL COORDINATOR Not Available [facility] ([facility]) [address] [place], [address], 04/17/2025 18:05:46 04/15/20 25 04/15/2025 CBC WITH DIFFE RENTI AL/PL ATELE T neutrophils (absolute) 5.0 x10e3 /uL 1.4-7. 0 normal Not Available [facility] ([facility]) [address] [place], [address], 04/17/2025 18:05:46 04/15/20 25 04/15/2025 CBC WITH DIFFE RENTI AL/PL ATELE T lymphs (absolute) 1.4 x10e3 /uL 0.7-3. 1 normal Not Available [facility] ([facility]) [address] [place], [address], 04/17/2025 18:05:46 04/15/20 25 04/15/2025 CBC WITH DIFFE RENTI AL/PL ATELE T monocytes(ab solute) 0.7 x10e3 /uL 0.1-0. 9 normal Not Available [facility] ([facility]) [address] [place], [address], 04/17/2025 18:05:46 04/15/20 25 04/15/2025 CBC WITH DIFFE RENTI AL/PL ATELE T eos (absolute) 0.2 x10e3 /uL 0.0-0. 4 normal Not Available [facility] ([facility]) [address] [place], [address], 04/17/2025 18:05:46 04/15/20 25 04/15/2025 CBC WITH DIFFE RENTI AL/PL ATELE T baso (absolute) 0.1 x10e3 /uL 0.0-0. 2 normal Not Available [facility] ([facility]) [address] [facility], [place], [address], 04/17/2025 18:05:46 04/15/20 25 04/15/2025 CBC WITH DIFFE RENTI AL/PL ATELE T immature granulocytes 0 % not estab. Not Available [facility] ([facility]) [address] [facility], [place], [address], 04/17/2025 18:05:46 04/15/20 25 04/15/2025 CBC WITH DIFFE RENTI AL/PL ATELE T immature grans (abs) 0.0 x10e3 /uL 0.0-0. 1 Not Available [facility] ([facility]) [address] [facility], [place], [address], 04/17/2025 18:05:46 04/15/20 25 04/15/2025 CBC WITH DIFFE RENTI AL/PL ATELE T NRBC PRODUCTION CONTROL COORDINATOR Not Available [facility] ([facility]) [address] [facility], [place], [address], 04/17/2025 18:05:46 04/15/20 25 04/15/2025 CBC WITH DIFFE RENTI AL/PL ATELE T hematology comments: PRODUCTION CONTROL COORDINATOR Not Available [facility] ([facility]) [address] [facility], [place], [address], 04/17/2025 18:05:46 04/15/20 25 04/16/2025 COMP. METAB OLIC PANEL (14) glucose 220 mg/dL 70-99 above high normal Not Available [facility] ([facility]) [address] [place], [address], 04/17/2025 18:05:46 04/15/20 25 04/16/2025 COMP. METAB OLIC PANEL (14) BUN 18 mg/dL 8-27 normal Not Available [facility] ([facility]) [address] [place], [address], 04/17/2025 18:05:46 04/15/20 25 04/16/2025 COMP. METAB OLIC PANEL (14) creatinine 1.66 mg/dL 0.76-1 .27 above high normal Not Available [facility] ([facility]) [address] [facility] [place], [address], 04/17/2025 18:05:46 04/15/20 25 04/16/2025 COMP. METAB OLIC PANEL (14) eGFR 43 mL/mi n/1.7 3 >59 below low normal Not Available [facility] ([facility]) [address] [facility] [place], [address], 04/17/2025 18:05:46 04/15/20 25 04/16/2025 COMP. METAB OLIC PANEL (14) BUN/creatini ne ratio 11 10-24 normal Not Available [facility] ([facility]) [address] [facility] [place], [address], 04/17/2025 18:05:46 04/15/20 25 04/16/2025 COMP. METAB OLIC PANEL (14) sodium 137 mmol/ L 134-14 4 normal Not Available [facility] ([facility]) [address] [facility] [place], [address], 04/17/2025 18:05:46 04/15/20 25 04/16/2025 COMP. METAB OLIC PANEL (14) potassium 4.5 mmol/ L 3.5-5. 2 normal Not Available [facility] ([facility]) [address] [facility] [place], [address], 04/17/2025 18:05:46 04/15/20 25 04/16/2025 COMP. METAB OLIC PANEL (14) chloride 101 mmol/ L 96-106 normal Not Available [facility] ([facility]) [address] [facility] [place], [address], 04/17/2025 18:05:46 04/15/20 25 04/16/2025 COMP. METAB OLIC PANEL (14) carbon dioxide, total 21 mmol/ L 20-29 normal Not Available [facility] ([facility] [address] [facility] [place], [address], 04/17/2025 18:05:46 04/15/20 25 04/16/2025 COMP. METAB OLIC PANEL (14) calcium 9.3 mg/dL 8.6-10 .2 normal Not Available [facility] ([facility]) [address] [place], [address], 04/17/2025 18:05:46 04/15/20 25 04/16/2025 COMP. METAB OLIC PANEL (14) protein, total 7.1 g/dL 6.0-8. 5 normal Not Available [facility] ([facility]) [address] [facility] [place], [address], 04/17/2025 18:05:46 04/15/20 25 04/16/2025 COMP. METAB OLIC PANEL (14) albumin 4.3 g/dL 3.8-4. 8 normal Not Available [facility] ([facility]) [address] [facility] [place], [address], 04/17/2025 18:05:46 04/15/20 25 04/16/2025 COMP. METAB OLIC PANEL (14) globulin, total 2.8 g/dL 1.5-4. 5 Not Available [facility] ([facility]) [address] [facility] [place], [address], 04/17/2025 18:05:46 04/15/20 25 04/16/2025 COMP. METAB OLIC PANEL (14) bilirubin, total 0.4 mg/dL 0.0-1. 2 normal Not Available [facility] ([facility]) [address] [facility] [place], [address], 04/17/2025 18:05:46 04/15/20 25 04/16/2025 COMP. METAB OLIC PANEL (14) alkaline phosphatase 112 IU/L 44-121 normal Not Available [facility] ([facility]) [address] [place], [address], 04/17/2025 18:05:46 04/15/20 25 04/16/2025 COMP. METAB OLIC PANEL (14) AST (SGOT) 22 IU/L 0-40 normal Not Available [facility] ([facility]) [address] [facility] [place], [address], 04/17/2025 18:05:46 04/15/20 25 04/16/2025 COMP. METAB OLIC PANEL (14) ALT (SGPT) 20 IU/L 0-44 normal Not Available [facility] ([facility]) [address] [place], [address], 04/17/2025 18:05:46 04/15/20 25 04/16/2025 URINA LYSIS , COMPL ETE specific gravity 1.020 1.005- 1.030 normal Not Available [facility] ([facility]) [address] [place], [address], 04/17/2025 18:05:47 04/15/20 25 04/16/2025 URINA LYSIS , COMPL ETE pH 6.0 5.0-7. 5 normal Not Available [facility] ([facility]) [address] [place], [address], 04/17/2025 18:05:47 04/15/20 25 04/16/2025 URINA LYSIS , COMPL ETE urine-color Yellow yellow Not Available [facility] ([facility]) [address] [place], [address], 04/17/2025 18:05:47 04/15/20 25 04/16/2025 URINA LYSIS , COMPL ETE appearance Cloudy clear abnormal Not Available [facility] ([facility]) [address] [facility], [place], [address], 04/17/2025 18:05:47 04/15/20 25 04/16/2025 URINA LYSIS , COMPL ETE WBC esterase 2+ negati ve abnormal Not Available [facility] ([facility]) [address] [place], [address], 04/17/2025 18:05:47 04/15/20 25 04/16/2025 URINA LYSIS , COMPL ETE protein 2+ negati ve/tra ce abnormal Not Available [facility] ([facility]) [address] [place], [address], 04/17/2025 18:05:47 04/15/20 25 04/16/2025 URINA LYSIS , COMPL ETE glucose 2+ negati ve abnormal Not Available [facility] ([facility]) [address] [place], [address], 04/17/2025 18:05:47 04/15/20 25 04/16/2025 URINA LYSIS , COMPL ETE ketones Negati ve negati ve Not Available [facility] ([facility]) [address] [place], [address], 04/17/2025 18:05:47 04/15/20 25 04/16/2025 URINA LYSIS , COMPL ETE occult blood Negati ve negati ve Not Available [facility] ([facility]) [address] [place], [address], 04/17/2025 18:05:47 04/15/20 25 04/16/2025 URINA LYSIS , COMPL ETE bilirubin Negati ve negati ve Not Available [facility] ([facility]) [address] [place], [address], 04/17/2025 18:05:47 04/15/20 25 04/16/2025 URINA LYSIS , COMPL ETE urobilinogen ,semi-qn 0.2 mg/dL 0.2-1. 0 normal Not Available [facility] ([facility]) [address] [place], [address], 04/17/2025 18:05:47 04/15/20 25 04/16/2025 URINA LYSIS , COMPL ETE nitrite, urine Negati ve negati ve Not Available [facility] ([facility]) [address] [place], [address], 04/17/2025 18:05:47 04/15/20 25 04/16/2025 URINA LYSIS , COMPL ETE microscopic examination See below: Micro scopi c was indic ated and was perfo rmed. Not Available [facility] ([facility]) [address] [facility], [place], [address], 04/17/2025 18:05:47 04/15/20 25 04/16/2025 URINA LYSIS , COMPL ETE WBC >30 /hpf 0 - 5 abnormal Not Available [facility] ([facility]) [address] [place], [address], 04/17/2025 18:05:47 04/15/20 25 04/16/2025 URINA LYSIS , COMPL ETE RBC 0-2 /hpf 0 - 2 Not Available [facility] ([facility]) [address] [place], [address], 04/17/2025 18:05:47 04/15/20 25 04/16/2025 URINA LYSIS , COMPL ETE epithelial cells (non renal) None seen /hpf 0 - 10 Not Available [facility] ([facility]) [address] [place], [address], 04/17/2025 18:05:47 04/15/20 25 04/16/2025 URINA LYSIS , COMPL ETE epithelial cells (renal) PRODUCTION CONTROL COORDINATOR Not Available [facility] ([facility]) [address] [place], [address], 04/17/2025 18:05:47 04/15/20 25 04/16/2025 URINA LYSIS , COMPL ETE casts None seen /lpf none seen Not Available [facility] ([facility]) [address], [place], [address], 04/17/2025 18:05:47 04/15/20 25 04/16/2025 URINA LYSIS , COMPL ETE cast type PRODUCTION CONTROL COORDINATOR Not Available [facility] ([facility]) [address] [facility], [place], [address], 04/17/2025 18:05:47 04/15/20 25 04/16/2025 URINA LYSIS , COMPL ETE crystals PRODUCTION CONTROL COORDINATOR Not Available [facility] ([facility]) [address] [facility], [place], [address], 04/17/2025 18:05:47 04/15/20 25 04/16/2025 URINA LYSIS , COMPL ETE crystal type PRODUCTION CONTROL COORDINATOR Not Available [facility]) [address] [facility], [place], [address], 04/17/2025 18:05:47 04/15/20 25 04/16/2025 URINA LYSIS , COMPL ETE mucus threads PRODUCTION CONTROL COORDINATOR Not Available [facility] ([facility]) [address] [facility], [place], [address], 04/17/2025 18:05:47 04/15/20 25 04/16/2025 URINA LYSIS , COMPL ETE bacteria None seen none seen/f ew Not Available [facility] ([facility]) [address] [facility], [place], [address], 04/17/2025 18:05:47 04/15/20 25 04/16/2025 URINA LYSIS , COMPL ETE yeast PRODUCTION CONTROL COORDINATOR Not Available [facility] ([facility]) [address] [facility], [place], [address], 04/17/2025 18:05:47 04/15/20 25 04/16/2025 URINA LYSIS , COMPL ETE trichomonas PRODUCTION CONTROL COORDINATOR Not Available [facility] ([facility]) [address] [facility], [place], [address], 04/17/2025 18:05:47 04/15/20 25 04/16/2025 URINA LYSIS , COMPL ETE comment PRODUCTION CONTROL COORDINATOR Not Available [facility] ([facility]) [address] [facility], [place], [address], 04/17/2025 18:05:47 04/15/20 25 04/16/2025 URINA LYSIS , COMPL ETE microscopic examination PRODUCTION CONTROL COORDINATOR Not Available [facility] ([facility]) [address] [facility], [place], [address], 04/17/2025 18:05:47 04/15/20 25 04/17/2025 QUANT IFERO N-TB GOLD PLUS quantiferon incubation Incuba tion perfor med. Not Available [facility] ([facility]) [address] [facility], [place], [address], 04/17/2025 18:05:47 04/15/20 25 04/17/2025 QUANT IFERO N-TB GOLD PLUS quantiferon criteria Commen t Quant iFERO N-TB Gold Plus is a quali tativ e indir ect test for M tuber culos is infec tion (incl uding disea se) and is inten ded for use in conju nctio n with risk asses sment , radio graph y, and other medic al and diagn ostic evalu ation s. The Quant iFERO N-TB Gold Plus resul t is deter mined by subtr actin g the Nil value from eithe r TB antig en (Ag) value . The Mitog en tube serve s as a contr ol for the test. Not Available [facility] ([facility]) [address] [facility], [place], [address], 04/17/2025 18:05:47 04/15/20 04/17/2025 QUANT IFERO N-TB GOLD PLUS quantiferon TB1 Ag value 0.04 IU/mL Not Available [facility] ([facility]) [address] [place], [address], 04/17/2025 18:05:47 04/15/2004/17/2025 QUANT IFERO N-TB GOLD PLUS quantiferon TB2 Ag value 0.06 IU/mL Not Available [facility] ([facility]) [address] [place], [address], 04/17/2025 18:05:47 04/15/2004/17/2025 QUANT IFERO N-TB GOLD PLUS quantiferon nil value 0.01 IU/mL Not Available [facility] ([facility]) [address] [place], [address], 04/17/2025 18:05:47 04/15/2004/17/2025 QUANT IFERO N-TB GOLD PLUS quantiferon mitogen value 7.61 IU/mL Not Available [facility] ([facility]) [address] [place], [address], 04/17/2025 18:05:47 04/15/2004/17/2025 QUANT IFERO N-TB GOLD PLUS quantiferon- TB gold plus Negati ve negati ve No respo nse to M keyanna chowdhury is antig ens detec leia. Infec tion with M keyanna chowdhury is is unlik shanique, but high risk indiv idual s shoul d be consi dered for addit ional testi ng (ATS/ IDSA/ CDC Clini chivo Pract ice Guide lines , 2017) . The refer ence range is an Antig en minus Nil resul t of <0.35 IU/mL . Chemi lumin escen ce immun oassa y metho dolog y Not Available [facility] ([facility]) [address] [place], [address], 04/17/2025 18:05:47 04/15/202025 NT-WY OBNP nt-probnp 422 pg/mL 0-376 above high normal The follo wing cut-p oints have been sugge sted for the use of proBN P for the diagn ostic evalu ation of heart failu re (HF) in patie nts with acute dyspn ea: Modal ity Age Optim al Cut (year s) Point ----- ----- ----- ----- ----- ----- ----- ----- ----- ----- ---- Diagn osis (rule in HF) <50 450 pg/mL 50 - 75 900 pg/mL >75 1800 pg/mL Exclu jj (rule out HF) Age indep enden t 300 pg/mL Not Available [facility] ([facility]) [address] [place], [address], 04/17/2025 18:05:48 04/15/20 25 04/16/2025 TSH RFX ON ABNOR MAL TO FREE T4 TSH 1.800 uIU/m L 0.450- 4.500 normal Not Available [facility] ([facility]) [address] [place], [address], 04/17/2025 18:05:48 07/22/20 25 07/23/2025 VITAM IN D, 25-HY DROXY vitamin D, [...] IOM (Inst itute of Medic ine). 2010. Mk miguel refer lawrence ordonez es for calci um and DRocio beckwith DC: The Natio nal [facility] . 2. Vasqeuz alejandro MF, Kevin ey [place], Bisch off-F errar i BARTH, et al. Evalu ation , treat ment, and preve ntion of vitam in D defic iency : an Endoc rine Socie ty clini chivo pract ice guide line. JCEM. 2010; 96(7) :1911 -30. Not Available [facility] ([facility]) [address] [facility], [place], [address], 07/23/2025 08:08:33 07/22/20 25 07/23/2025 MAGNE SIUM magnesium 2.0 mg/dL 1.6-2. 3 normal Not Available [facility] ([facility]) [address] [facility], [place], [address], 07/23/2025 08:08:33 04/16/20 25 04/15/2025 US, bradley x, dinorah s, lower extre mity, compl ete No observ ation record ed. [facility] [address] [facility] [address], [place], [address], 04/30/2025 09:22:22 06/06/20 25 06/04/2025 CT chest ldct lung progr am CT Chest LDCT Lung Progra m Reason : Other: ; LDCT LUNG CANCER SCREEN ING PROGRA M. CURREN T, 47 PACK YEAR HX; Clinic al Questi on(s): Other: ; Specia l Instru ctions : BOOK AT [address] [facility] BOOK AFTER 05 [address] IN THE 12 LAST MONTHS . NO LUNG CA, SIGNS OR SYPMTO MS. Visit type: Annual Screen ing TECHNI QUE: Low-do se helica l CT of the chest withou t IV contra st (Adult Lung Cancer Screen ing) protoc ol was perfor med. Travis l reform ats were obtain ed. Weight -based protoc ol using automa tic tube modula tion was used to optimi ze exposu re parame ters. CTDIvo l Body: 3.30 mGy, DLP Body: 128 mGy*cm . COMPAR JOSE FRANCISCO: 024 low-do se chest CT. FINDIN GS: LUNG NODULE S (measu red on thin axial series 4 ): 0.6 x 1.2 cm (avera ge 0.9 cm) irregu lar solid nodule in the lingul a (image 181 series 4), unchan ged from prior study. Scatte red additi onal calcif ied and noncal cified nodule s measur ing up to 0.5 cm in the left lower lobe (image 21 series 4), unchan ged. No new nodule s measur ing 4 mm or greate r. OTHER FINDIN GS: Sole Tier view findin gs, lines and tubes: None. Trache a and airway s: Patent withou t eviden ce of trache al or endobr onchia l lesion . Lungs and pleura : Clear lungs. Mild pleura l nodula rity along the along the right upper lobe, unchan ged. No effusi on or pneumo thorax . Medias tinum and thee: No mass or hemato ma. Promin ent subcar inal lymph node measur es 0.9 cm unchan ged. No medias tinal or hilar lympha denopa thy. Small type I hiatal hernia . Normal thyroi d. Heart: Heart is normal in size. No perica rdial effusi on. Severe travis ry artery calcif icatio n. Aorta: Mild vascul ar calcif icatio n but no aneury sm. Pulmon mimi arteri es: Normal calibe r. Chest wall soft tissue s: No acute abnorm ality. Diaphr agm: Intact . Upper abdome n: There is atroph ic. Right kidney is relati vely atroph ic. Vascul ar stent in the left renal artery . Upper abdome n is otherw ise unrema rkable . Bones: No acute abnorm ality. IMPRES JJ: 1. 0.9 cm irregu lar solid nodule in the lingul a, unchan ged. Scatte red additi onal multip le pulmon mimi nodule s measur ing up to 0.5 cm, also unchan ged. No nodule s. LungRa d Catego ry: 2 Benign Appear [...] on Lung-R ADS 2021 criter ia. https: //edge .[facility] Inventergyo ud.io/ americ barrie f5f-ac rorgf9 2a-pro ductio ncb02- 3650/m edia/A CR/Eduardo es/RAD S/Lung -RADS/ Lung-R ADS-20 22.pdf WSN: [id number] Orderi ng Physic romy: Osvaldo Cabrera Dictat ed By: Bennie garcia MD, Josh Dictat ed Date/T tonny: 1:15 pm Review ed By: Bennie garcia MD, Josh Signed By: Josh Oglesby MD Signed Date/T tonny: 1:15 pm Transc ribed By: TEJAS Transc ribed Date/T tonny: 1:04 pm Patien t Class: Outpat ient [facility] (Outpt Imaging) [address] [place], [address], 06/07/2025 09:55:27 06/06/20 25 06/06/2025 LDCT, chest , for lung cance r scree emi No observ ation record ed. [facility] [address] [place], [address], 06/06/2025 13:42:45 06/12/20 25 06/06/2025 LDCT, chest , for lung cance r scree emi No observ ation record ed. [facility] [address] [place], [address], 06/12/2025 16:52:30 06/17/20 25 06/17/2025 MRI, head, w/wo contr ast No observ ation record ed. [facility] (Medical Records) [address] [place], [address], 06/17/2025 17:26:12 Result Notes None recorded. Problems Name Problem SNOMED Code Status Onset Date Resolution Date Notes Provider Name and Address Organization Details Recorded Time Adult health examinat ion Completed 09/09/2014 JENIFER Cavanaugh, [facility] 6 11:14:48 Lyme disease [id number] Completed 10/17/2017 Juan Carlos Cabrera MD [address] [facility] [address], [place], [address] , [facility] 4 11:58:15 Postproc edural state finding [id number] Com[facility] 09[facility]09[facility]2014 [facility] 11:14:[facility] Chest pain 05267491 Completed 04/12/2017 Juan Carlos Cabrera MD [address] [facility] [address], [place], [address] , [facility] 4 11:56:39 Hypercho lesterol emia 86029726 Completed 07/17/2023 Juan Carlos Cabrera MD [address] [facility] [address], [place], [address] , [facility] 3 13:11:42 Exposure to SARS-CoV -2 Completed 07/06/2020 Removal Reason: Problem added by user zahra dumont from the COVID-19 watch flag [facility] 11:14:48 Acute pharyngi tis 826466234 Completed 201105/06/2014 IMPRESSI ON: RAPID STREP NEGATIVE , EXAM C/W WITH STREP, WILL SEND CULTURE AND TREAT.; RECORDED 06/27/20 12 10:38AM BY ZULEIKA KAN MA, ANNOTATI ON/ADDEN DUM [facility] 6 11:14:48 Depressi ve disorder 09999845 Completed 201105/06/2014 RECORDED 06/27/20 12 10:38AM BY ZULEIKA KAN MA, ANNOTATI ON/ADDEN DUM JENIFER Cavanaugh, [facility] 6 11:14:48 Disorder of skin 36459869 Completed 201105/06/2014 RECORDED 06/27/20 12 10:38AM BY ZULEIKA KAN MA, ANNOTATI ON/ADDEN DUM Juan Carlos Cabrera MD [address] [facility] [address], [place], [address] , [facility] 4 11:57:35 Family history of Cardiova scular disease 723631906 Completed 201105/06/2014 STORY: FATHER; RECORDED 06/27/20 12 10:38AM BY ZULEIKA KAN MA, ANNOTATI ON/ADDEN DUM JENIFER Cavanaugh, [facility] 6 11:14:48 Genital herpes simplex 36383631 Completed 201105/06/2014 RECORDED 06/27/20 12 10:38AM BY ZULEIKA KAN MA, ANNOTATI ON/ADDEN DUM JENIFER Cavanaugh, [facility] 6 11:14:48 Jaw pain 344516202 Completed 201105/06/2014 RECORDED 06/27/20 12 10:38AM BY ZULEIKA KAN MA, ANNOTATI ON/ADDEN DUM JENIFER Cavanaugh, [facility] 6 11:14:48 Screenin g for malignan t neoplasm of colon Completed 201105/06/2014 RECORDED 06/27/20 12 10:38AM BY ZULEIKA KAN MA, ANNOTATI ON/ADDEN DUM JENIFER Cavanaugh, [facility] 6 11:14:48 Acute pharyngi tis 591084398 Completed 201105/29/2014 IMPRESSI ON: RAPID STREP NEGATIVE , EXAM C/W WITH STREP, WILL SEND CULTURE AND TREAT.; RECORDED 06/27/20 12 10:38AM BY ZULEIKA KAN MA, ANNOTATI ON/ADDEN DUM Jonathan JENIFER Gaming, [facility] 6 11:14:48 Depressi ve disorder 83943338 Completed 201105/29/2014 RECORDED 06/27/20 12 10:38AM BY UZLEIKA KAN MA, ANNOTATI ON/ADDEN DUM Jonathan JENIFER Gaming, [facility] 6 11:14:48 Disorder of skin 68874634 Completed 201105/29/2014 RECORDED 06/27/20 12 10:38AM BY ZULEIKA KAN MA, SAJAN ON/ADDEN DUM Juan Carlos Cabrera MD [address] [place], [address] [facility] 4 11:57:35 Family history of Cardiova scular disease 412333336 Completed 201105/29/2014 STORY: FATHER; RECORDED 06/27/20 12 10:38AM BY ZULEIKA KAN MA, ANNOTATI ON/ADDEN DUM Jonathan JENIFER Gaming, [facility] 6 11:14:48 Genital herpes simplex 89664330 Completed 201105/29/2014 RECORDED 06/27/20 12 10:38AM BY ZULEIKA KNA MA, ANNOTATI ON/ADDEN DUM Jonathan JENIFER Gaming, [facility] 6 11:14:48 Jaw pain 661447154 Completed 201105/29/2014 RECORDED 06/27/20 12 10:38AM BY ZULEIKA KAN MA, ANNOTATI ON/ADDEN DUM Jonathan KendraJENIFER Bobo, [facility] 6 11:14:48 Screenin g for malignan t neoplasm of colon Completed 201105/29/2014 RECORDED 06/27/20 12 10:38AM BY ZULEIKA KAN MA, SAJAN ON/ADDEN DUM Jonathan JENIFER Gaming, [facility] 6 11:14:48 Acute pharyngi tis 264815148 Completed 201105/30/2014 IMPRESSI ON: RAPID STREP NEGATIVE , EXAM C/W WITH STREP, WILL SEND CULTURE AND TREAT.; RECORDED 06/27/20 12 10:38AM BY ZULEIKA KAN MA, ANNOTATI ON/ADDEN DUM Jonathan JENIFER Gaming, [facility] 6 11:14:48 Depressi ve disorder 03343900 Completed 201105/30/2014 RECORDED 06/27/20 12 10:38AM BY ZULEIKA KAN MA, ANNOTATI ON/ADDEN DUM JENIFER Cavanaugh, [facility] 6 11:14:48 Disorder of skin 81412299 Completed 201105/30/2014 RECORDED 06/27/20 12 10:38AM BY ZULEIKA KAN MA, SAJAN ON/ADDEN DUM Juan Carlos Cabrera MD [address] [address], [facility] [place], [address] [facility] 4 11:57:35 Family history of Cardiova scular disease 897622964 Completed 201105/30/2014 STORY: FATHER; RECORDED 06/27/20 12 10:38AM BY ZULEIKA KAN MA, SAJAN ON/ADDEN DUM JENIFER Cavanaugh, [facility] 6 11:14:48 Genital herpes simplex 58547391 Completed 201105/30/2014 RECORDED 06/27/20 12 10:38AM BY ZULEIKA KAN MA, ANNOTATI ON/ADDEN DUM JENIFER Cavanaugh, [facility] 6 11:14:48 Jaw pain 265862699 Completed 201105/30/2014 RECORDED 06/27/20 12 10:38AM BY ZULEIKA KAN MA, ANNOTATI ON/ADDEN DUM Jonathan JENIFER Gaming, [facility] 6 11:14:48 Screenin g for malignan t neoplasm of colon Completed 201105/30/2014 RECORDED 06/27/20 12 10:38AM BY ZULEIKA KAN MA, ANNOTMAGDA ON/ADDEN DUM Jonathan JENIFER Gaming, [facility] 6 11:14:48 Disorder of skin 79867796 Completed 201107/19/2024 Juan Carlos Cabrera MD [address] [facility] [address], [place], [address] , [facility] 4 11:57:35 Low back pain 428611772 Completed 201205/06/2014 RECORDED 11/09/19 13 2:18PM BY ZULEIKA KAN MA, ANNOTMAGDA ON/ADDEN DUM Jonathan JENIFER Gaming, [facility] 6 11:14:48 Low back pain 016108071 Completed 201205/29/2014 RECORDED 11/09/19 13 2:18PM BY ZULEIKA KAN MA, ANNOTATI ON/ADDEN DUM Jonathan JENIFER Gaming, [facility] 6 11:14:48 Low back pain 690054562 Completed 201205/30/2014 RECORDED 11/09/19 13 2:18PM BY ZULEIKA KAN MA, ANNOTMAGDA ON/ADDEN DUM Jonathan JENIFER Gaming, [facility] 6 11:14:48 Wheezing 77520954 Completed 201205/06/2014 RECORDED 03/01/20 13 10:00AM BY ZULEIKA KAN MA, ANNOTMAGDA ON/ADDEN DUM JonathanJENIFER Kirk, [facility] 6 11:14:48 Wheezing 97910643 Completed 201205/29/2014 RECORDED 03/01/20 13 10:00AM BY ZULEIKA KAN MA, ANNOTATI ON/ADDEN DUM JENIFER Cavanaugh, [facility] 6 11:14:48 Wheezing 84593748 Completed 201205/30/2014 RECORDED 03/01/20 13 10:00AM BY ZULEIKA KAN MA, ANNOTATI ON/ADDEN DUM JENIFER Cavanaugh, [facility] 6 11:14:48 Chronic bronchit is 10140076 Completed 201205/06/2014 RECORDED 06/28/20 13 10:13AM BY RYDER LOU MD, ANNOTATI ON/ADDEN DUM JENIFER Cavanaugh, [facility] 6 11:14:48 Type 1 diabetes mellitus 26550080 Completed 201205/06/2014 STORY: KORFF; RECORDED 06/28/20 13 9:34AM BY JONATHAN DUMONT MA, ANNOTATI ON/ADDEN DUM Juan Carlos Cabrera MD [address] [address] [address] [facility] 4 11:59:19 Influenz a vaccine needed 54829161611 06 Completed 201205/06/2014 RECORDED 06/28/20 13 9:37AM BY JONATHAN DUMONT MA, OFFICE VISIT JENIFER Cavanaugh, [facility] 6 11:14:48 Chronic bronchit is 52716696 Completed 201205/29/2014 RECORDED 06/28/20 13 10:13AM BY RYDER LOU MD, SAMUELATI ON/ADDEN DUM JENIFER Cavanaugh, [facility] 6 11:14:48 Type 1 diabetes mellitus 21378458 Completed 201205/29/2014 STORY: LEXA; RECORDED 06/28/20 13 9:34AM BY JONATHAN DUMONT MA, SAMUELATI ON/ADDEN DUM Juan Carlos Cabrera MD [address] [facility] [address], [place], [address] , [facility] 4 11:59:19 Influenz a vaccine needed 66031592462 06 Completed 201205/29/2014 RECORDED 06/28/20 13 9:37AM BY JONATHAN DUMONT MA, OFFICE VISIT JENIFER Cavanaugh, [facility] 6 11:14:48 Chronic bronchit is 56771053 Completed 201205/30/2014 RECORDED 06/28/20 13 10:13AM BY RYDER LOU MD, SAJAN ON/ADDEN DUM JENIFER Cavanaugh, [facility] 6 11:14:48 Type 1 diabetes mellitus 17919555 Completed 201205/30/2014 STORY: LEXA; RECORDED 06/28/20 13 9:34AM BY JONATHAN DUMONT MA, SAJAN ON/JAMAL Cabrera MD [address] [facility] [address], [place], [address] , [facility] 4 11:59:19 Influenz a vaccine needed 50430437296 06 Completed 201205/30/2014 RECORDED 06/28/20 13 9:37AM BY JONATHAN DUMONT MA, OFFICE VISIT JENIFER Cavanaugh, [facility] 6 11:14:48 Abdomina l aortic aneurysm 857529593 Completed 201305/06/2014 STORY: 2.9CM (OCT 2013); RECORDED 11/21/19 14 1:54PM BY ZULEIKA LORETA, MA, ANNOTATI ON/ADDEN DUM Jonathan Kendra-Ma [place] delong, [facility] 6 11:14:48 Laborato ry procedur e performe d 548392427 Completed 201305/06/2014 RECORDED 11/21/19 14 1:54PM BY ZULEIKA KAN MA, ANNOTATI ON/ADDEN DUM Jonathan Kendra-Ma ttJENIFER pappas, [facility] 6 11:14:48 Abdomina l aortic aneurysm 793173032 Completed 201305/29/2014 STORY: 2.9CM (OCT 2013); RECORDED 11/21/19 14 1:54PM BY ZULEIKA KAN MA, ANNOTATI ON/ADDEN DUM Jonathan Kendra-Ma JENIFER delong, [facility] 6 11:14:48 Laborato ry procedur e performe d 432445182 Completed 201305/29/2014 RECORDED 11/21/19 14 1:54PM BY ZULEIKA KAN MA, ANNOTATI ON/ADDEN DUM Jonathan Kendra-Ma JENIFER delong, [facility] 6 11:14:48 Abdomina l aortic aneurysm 531004286 Completed 201305/30/2014 STORY: 2.9CM (OCT 2013); RECORDED 11/21/19 14 1:54PM BY ZULEIKA KAN MA, ANNOTATI ON/ADDEN DUM Jonathan Kendra-JENIFER Cooley, [facility] 6 11:14:48 Laborato ry procedur e performe d 391934499 Completed 201305/30/2014 RECORDED 11/21/19 14 1:54PM BY ZULEIKA KAN MA, ANNOTATI ON/ADDEN DUM Jonathan Kendra-Ma JENIFER delong, [facility] 6 11:14:48 Basal cell carcinom a of nose 973515631 Completed 201406/23/2015 Removal Reason: excision Juan Carlos Cabrera MD [address], [place], [address] , [facility] 4 11:59:58 Basal cell carcinom a of nose 272539246 Completed 201407/19/2024 Juan Carlos Cabrera MD [address], [place], [address] , [facility] 4 11:59:58 History of malignan t neoplasm of skin Completed 201604/12/2017 Removal Reason: excision JENIFER Cavanaugh, [facility] 7 16:22:52 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 908663420 Completed 201707/17/2024 Juan Carlos Cabrera MD [address], [place], [address] , [facility] 5 11:01:15 Carotid artery stenosis 66485300 Active 2017 JENIFER Pennington, [facility] 2 10:14:18 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 931999698 Completed 201707/19/2024 Juan Carlos Cabrera MD [address], [place], [address] , [facility] 5 11:01:15 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 917757679 Active 2017 Mirna driver, [facility] 1 11:28:54 Type 1 diabetes mellitus without complica tion 471887987 Completed 201712/23/2019 Juan Carlos Cabrera MD [address], [place], [address] , [facility] 4 11:59:25 Type 1 diabetes mellitus without complica tion 780367593 Completed 201709/12/2022 Juan Carlos Cabrera MD [address], [place], [address] , [facility] 4 11:59:25 Type 1 diabetes mellitus without complica tion 672334219 Completed 201707/19/2024 Juan Carlos Cabrera MD [address], [place], [address] , [facility] 4 11:59:25 Acute exacerba tion of chronic obstruct ashlee pulmonar y disease 436578633 Completed 201707/17/2023 Juan Carlos Cabrera MD [address], [place], [address] , [facility] 4 11:56:03 Acute exacerba tion of chronic obstruct ashlee pulmonar y disease 615066147 Completed 201707/17/2024 Juan Carols Cabrera MD [address], [place], [address] , [facility] 4 11:56:03 Acute exacerba tion of chronic obstruct ashlee pulmonar y disease 491089118 Completed 201707/19/2024 Juan Carlos Cabrera MD [address], [place], [address] , [facility] 4 11:56:03 Bilatera l stenosis of carotid arteries 129833807 Active 2018 Smitha Valera [facility], [facility] 4 13:08:15 Pituitar y mass 229491254 Completed 201807/17/2024 Juan Carlos Cabrera MD [address], [place], [address] , [facility] 5 15:25:07 Pituitar y mass 755125536 Completed 201812/05/2024 Juan Carlos Cabrera MD [address], [place], [address] , [facility] 5 15:25:07 History of Lyme disease 319174860 Active 2018 JENIFER Morejon, [facility] 4 13:08:14 History of divertic ulitis 54246547155 9100 Active 2018 JENIFER Morejon, [facility] 4 13:08:14 Acquired melanocy tic nevus of retina 55930678052 9107 Active 2018 JENIFER Morejon, [facility] 4 13:08:14 History of cerebrov ascular accident 339497223 Active 2018 JENIFER Morejon, [facility] 4 13:08:14 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 362739403 Active 2018 JENIFER Morejon, [facility] 4 13:08:14 Intermit tent claudica tion 26553486 Active 2018 JENIFER Morejon, [facility] 4 13:08:15 Essentia l hyperten jj 02205298 Active 2019 JENIFER Morejon, [facility] 4 13:08:15 Chronic obstruct ashlee pulmonar y disease 93695555 Active 2019 JENIFER Pennington, [facility] 2 10:14:18 Serum creatini ne above referenc e range 657228570 Completed 201907/17/2023 Juan Carlos Cabrera MD [address], [place], [address] , [facility] 4 11:59:09 Serum creatini ne above referenc e range 320777735 Completed 201901/15/2024 Juan Carlos Cabrera MD [address], [place], [address] , [facility] 4 11:59:09 Serum creatini ne above referenc e range 809556008 Completed 201907/19/2024 Juan Carlos Cabrera MD [address] [facility] [address], [place], [address] , [facility] 4 11:59:09 Renal disorder due to type 1 diabetes mellitus 870002247 Completed 201907/17/2024 Juan Carlos Cabrera MD [address] [facility] [address], [place], [address] , [facility] 4 11:59:49 Renal disorder due to type 1 diabetes mellitus 508639912 Completed 201907/19/2024 Juan Carlos Cabrera MD [address] [facility] [address], [place], [address] , [facility] 4 11:59:49 Chronic type B viral hepatiti s 04592928 [facility] 2 10:14:18 Uncontro lled type 1 diabetes mellitus 960090415 Completed 202007/17/2024 Juan Carlos Cabrera MD [address] [facility] [address], [place], [address] , [facility] 4 11:59:29 Condylom a acuminat um of the anogenit al region 916921272 Active 2020 [facility] 2 10:14:18 Glaucoma 41472610 Completed 202007/22/2025 Juan Carlos Cabrera MD [address] [facility] [address], [place], [address] , [facility] 5 11:42:50 Pure hypercho lesterol emia 891021514 Completed 202007/17/2023 Juan Carlos Cabrera MD [address], [place], [address] , [facility] 4 11:58:56 Tobacco dependen ce syndrome 77662079 Completed 202007/17/2023 Juan Carlos Cabrera MD [address], [place], [address] , [facility] 4 11:59:36 Insomnia 170131944 Active 2020 JENIFER Pennington, [facility] 2 10:14:18 Genital herpes simplex 66126529 Active 2020 JENIFER Pennington, [facility] 2 10:14:18 Acute non-ST segment elevatio n myocardi al infarcti on 123808714 Completed 202001/15/2024 Juan Carlos Cabrera MD [address], [place], [address] , [facility] 4 11:56:26 Abdomina l aortic aneurysm 974167260 Active 2020 JENIFER Pennington, [facility] 2 10:14:18 Anal warts 869794937 Active 2020 JENIFER Pennington, [facility] 2 10:14:18 Lumbar radiculo efrain 571361170 Completed 202007/19/2024 Juan Carlos Cabrera MD [address], [place], [address] , [facility] 4 11:58:18 Open-ang le glaucoma 38709863 Completed 202007/22/2025 Juan Carlos Cabrera MD [address], [place], [address] , [facility] 5 11:42:41 Lyme disease 01088406 Completed 202007/17/2023 Juan Carlos Cabrera MD [address], [place], [address] , [facility] 4 11:58:15 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 86188070279 9100 Completed 202007/17/2023 Juan Carlos Cabrera MD [address] [facility] [address], [place], [address] , [facility] 4 11:59:40 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 900154203 Active 2020 [facility] Cordero [facility], [facility] 2 10:14:18 Vitreous floaters 39301543 Completed 202007/19/2024 Juan Carlos Cabrera MD [address], [place], [address] , [facility] 4 11:59:32 Cataract 802863779 Completed 202007/22/2025 Juan Carlos Cabrera MD [address], [place], [address] , [facility] 5 11:42:58 Chronic kidney disease stage 3 960277455 Completed 202009/22/2022 Juan Carlos Cabrera MD [address], [place], [address] , [facility] 4 11:56:43 Type 1 diabetes mellitus 24884462 Completed 202009/12/2022 Juan Carlos Cabrera MD [address] [facility] [address], [place], [address] , [facility] 4 11:59:19 Renal osteodys trophy 89261409 Completed 202003/08/2021 Lauryn Cordero MA null, [facility] 2 09:26:22 Vitamin D deficien cy 99241872 Active 2020 Lauryn Cordero MA null, [facility] 2 10:14:18 Hyperlip idemia 79203659 Active 2020 Lauryn Cordero MA null, [facility] 2 10:14:19 Renal osteodys trophy 83342352 Completed 202003/08/2021 Smitha Valera MA null, [facility] 4 11:24:46 Lyme disease 43417503 Completed 202007/17/2024 Juan Carlos Cabrera MD [address], [place], [address] , [facility] 4 11:58:15 Pure hypercho lesterol emia [id number] Completed 202007/17/2024 Juan Carlos Cabrera MD [address], [place], [address] , [facility] 4 11:58:56 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 [id number] 9100 Completed 202007/19/2024 Juan Carlos Cabrera MD [address], [place], [address] , [facility] 4 11:59:40 Chronic kidney disease stage 3 094691436 Completed 202007/17/2024 Juan Carlos Cabrera MD [address], [place], [address] , [facility] 4 11:56:43 Type 1 diabetes mellitus 96403991 Completed 202007/17/2024 Juan Carlos Cabrera MD [address], [place], [address] , [facility] 4 11:59:19 Tobacco dependen ce syndrome 39885761 Completed 202007/17/2024 Juan Carlos Cabrera MD [address], [place], [address] , [facility] 4 11:59:36 Lyme disease 28901227 Completed 202007/19/2024 Juan Carlos Cabrera MD [address], [place], [address] , [facility] 4 11:58:15 Pure hypercho lesterol emia 286184268 Completed 202007/19/2024 Juan Carlos Cabrera MD [address], [place], [address] , [facility] 4 11:58:56 Acute non-ST segment elevatio n myocardi al infarcti on 510849499 Completed 202007/19/2024 Juan Carlos Cabrera MD [address], [place], [address] , [facility] 4 11:56:26 Chronic kidney disease stage 3 879208864 Completed 202007/19/2024 Juan Carlos Cabrera MD [address], [place], [address] , [facility] 4 11:56:43 Uncontro lled type 1 diabetes mellitus 898629684 Completed 202007/19/2024 Juan Carlos Cabrera MD [address], [place], [address] , [facility] 4 11:59:29 Type 1 diabetes mellitus 48109953 Completed 202007/19/2024 Juan Carlos Cabrera MD [address], [place], [address] , [facility] 4 11:59:19 Tobacco dependen ce syndrome 99877999 Completed 202007/19/2024 Juan Carlos Cabrera MD [address] [address], [place], [address] , [facility] 4 11:59:36 Hemipleg ia and/or hemipare sis followin g stroke 02947173309 107 Active 2020 JENIFER Pennington, [facility] 2 10:14:18 Squamous cell carcinom a of orthodox 430143732 Completed 202007/19/2024 Juan Carlos Cabrera MD [address] [address], [place], [address] , [facility] 4 11:59:46 Mixed anxiety and depressi ve disorder 864703072 Completed 202007/17/2023 Juan Carlos Cabrera MD [address] [address], [place], [address] , [facility] 5 11:41:40 Mixed anxiety and depressi ve disorder 329241026 Completed 202007/22/2025 Juan Carlos Cabrera MD [address] [address], [place], [address] , [facility] 5 11:41:40 Spastici ty as sequela of stroke 28786514909 9102 Active 2020 JENIFER Morejon, [facility] 4 13:08:14 Dysfunct ion of eustachi an tube 54232871 Completed 202007/17/2023 Juan Carlos Cabrera MD [address] [address], [place], [address] , [facility] 3 13:11:32 Microalb uminuria 010228382 Active 2020 LABS 02/24/202 1 ACR 93.8 JENIFER Pennington, [facility] 2 10:18:20 Hyperten sive renal disease 39437898 Active 2021 Lauryn Cordero MA null, [facility] 2 10:18:20 Myocardi al infarcti on 57991794 Completed 202107/17/2024 Juan Carlos Cabrera MD [address], [place], [address] , [facility] 4 11:58:30 Coronary arterios clerosis 45128356 Active 2021 Lauryn Cordero MA null, [facility] 2 10:18:20 Pituitar y adenoma 016624431 Completed 202107/17/2024 Juan Carlos Cabrera MD [address], [place], [address] , [facility] 5 15:25:13 Cerebrov ascular accident 956406519 Completed 202107/17/2024 Juan Carlos Cabrera MD [address], [place], [address] , [facility] 4 12:23:30 Divertic ular disease 346528257 Completed 202107/19/2024 Juan Carlos Cabrera MD [address], [place], [address] , [facility] 4 12:00:13 Myocardi al infarcti on 02708463 Completed 202107/19/2024 Juan Carlos Cabrera MD [address], [place], [address] , [facility] 4 11:58:30 Cerebrov ascular accident 122819451 Active 2021 Smitha Valera MA null, [facility] 4 11:24:46 Pituitar y adenoma 398683387 Completed 202112/05/2024 Juan Carlos Cabrera MD [address], [place], [address] , [facility] 5 15:25:13 COVID-19 715248320 Completed 202107/17/2023 Juan Carlos Cabrera MD [address], [place], [address] , [facility] 4 11:57:24 COVID-19 770164514 Completed 202101/10/2024 Juan Carlos Cabrera MD [address], [place], [address] , [facility] 4 11:57:24 COVID-19 773178005 Completed 202107/19/2024 Juan Carlos Cabrera MD [address], [place], [address] , [facility] 4 11:57:24 Pituitar y microade noma 741957301 Active 2021 JENIFER Han, [facility] 4 13:08:14 Anxiety 09447021 Active 2021 JENIFER Pennington, [facility] 2 10:18:21 Cough 37609152 Completed 202107/17/2023 Juan Carlos Cabrera MD [address], [place], [address] , [facility] 4 11:57:21 Cough 24545403 Completed 202101/10/2024 Juan Carlos Cabrera MD [address], [place], [address] , [facility] 4 11:57:21 Cough 22336323 Completed 202107/19/2024 Juan Carlos Cabrera MD [address], [place], [address] , [facility] 4 11:57:20 Inguinal hernia 449827032 Active 2021 Right side Juan Carlos Cabrera MD [address], [place], [address] , [facility] 2 10:47:40 Chronic kidney disease stage 3B 082228841 Active 2021 JENIFER Morejon, [facility] 4 13:08:15 History of SARS-CoV -2 56041222144 6336231 Active 2022 JENIFER Morejon, [facility] 4 13:08:14 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 82224211 Active 2022 JENIFER Morejon, [facility] 4 13:08:14 Ex-smoke r 6341689 Active 2022 JENIFER Morejon, [facility] 4 13:08:15 Weight loss 33238904 Completed 202307/17/2024 Juan Carlos Cabrera MD [address], [place], [address] , [facility] 4 12:24:37 Recurren t falls 117443057 Completed 202307/19/2024 Juan Carlos Cabrera MD [address], [place], [address] , [facility] 4 11:59:06 Constipa tion 82800446 Completed 202307/19/2024 Juan Carlos Cabrera MD [address], [place], [address] , [facility] 4 11:57:15 Pruritic disorder 930169441 Completed 202307/19/2024 Juan Carlos Cabrera MD [address], [place], [address] , [facility] 4 11:58:52 Fatigue 85661752 Completed 202307/17/2024 Juan Carlos Cabrera MD [address], [place], [address] , [facility] 4 12:23:21 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 Wells. Juan Carlos Cabrera MD [address], [place], [address] , [facility] 5 11:43:14 Chronic kidney disease due to type 2 diabetes mellitus 25103847325 8 Completed 202301/25/2024 [facility] 4 11:24:46 Uncontro lled type 2 diabetes mellitus 635370350 Completed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 seen by gi, found to be + for giardia - sig better on flagyl, cont as dir - now down to one formed bm / day encouraged pt to cont probiotic yogurt wt has slowly begun to climb cr stable, cont to stay hydrated *will fwd a copy of this note to GI* Leukocytosis 011445674 D 72.829 recheck cbc c diff next week c cc: GI [id number] Ryder Lou MD Main Office [address] [address] [place] [address] 02/01/2019 09:36:03 02/01/2019 10:52:34 Uncontrolled type 1 diabetes mellitus 830723595 E10.65 Carotid ar jeff stenosis 62457722 I65.29 S/P CEA in 2008 Pure hypercholesterolemia 187669804 E78.00 [id number] Qing anderson MD Main Office [address] [address] [place] [address] 05/17/2019 14:54:14 05/17/2019 15:41:59 Abdominal pain 44350765 R10.9 initial presentati on concerning for cholecysti tis, abdomen is benign now but hx of episode of RUQ pain in past as well, will get labs, US to look at GB pt to eat low fat, small meals, to ER with any flare of RUQ pain or fevers Constipation 34546504 K5 9.00 after one episode of diarrhea, pt to use miralax to get moving due to no BM for 4 days and feels bloated [id number] Rusty Richard MD Main Office [address] [address] [place] [address] 10/14/2019 11:37:49 10/14/2019 13:02:44 [id number] Rusty Richard MD Main Office [address] [address] [place] [address] 10/15/2019 09:52:11 10/15/2019 11:07:45 History of cerebrovascular accident 560237217 Z86.73 last wk R CVA c L grabiel - LUE muscle strength has returned and paresthesi as are resolving - s/p recent admission, cont meds as dir for primary and secondary prevention , cont f/u c vascular - encouraged pt to call for sooner apptmt pt seen c [facility] 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 patches Carotid ar jeff stenosis 79037564 I65.29 cont f/u c vascular Coronary atherosclerosis 183552477 I25.10 s/p 3 stents - cont meds, f/u c card as dir Transition of care 59106 38623 105 Z75.8 Essential hypertension 52616467 I10 stable, cont meds as dir [id number] Lima Lewis MD Main Office [address] [place] [address] 11/13/2019 14:59:57 11/13/2019 15:55:37 Essential hypertension 71856331 I10 Followed by cardiology who increased his meds. He will follow at home and call if systolic remains above 140. Cerebrovas cular accident 306461168 I63.9 He needs services to help improve and stabilize his post-strok e functionin g. Unintentio nal weight loss 642453771 R63.4 He has had a 9 lb weight loss since his stroke. He lives alone and has trouble with meal preparatio n. [id number] Ryder Lou MD Main Office [address] [place] [address] 11/19/2019 11:13:55 11/21/2019 11:39:29 [id number] Ryder Lou MD Main Office [address] [place] [address] 12/23/2019 08:12:05 12/23/2019 09:44:37 Adult health examination 692039970 Z00.00 Essential hypertension 18515020 I10 Stable on present medication s Uncontroll ed type 1 diabetes mellitus 551310083 E10.65 followed by endo Pure hypercholesterolemia 246976006 E78.00 Chronic ob structive pulmonary disease 87123641 J44.9 Stable on present meds Abdominal aortic aneurysm 235017481 I71.4 Stable size. followed by serial US Carotid ar jeff stenosis 13264728 I65.29 S/P CEA in 2008 Chronic ty pe B viral hepatitis 74190827 B18.1 Followed by ID Glaucoma 87360572 H40.9 Followed by ophtho with stable pressures. 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 COVID testing as pt. is high risk. If negative, needs stool testing. Replace electrolyt es as discussed. Test blood sugars 2-3 times daily. 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 was recom. to restart glucose testing. If blood sugares are 200-300 range, call endocrinol ogist to adjust meds. [id number] Ryder Lou MD [facility] [address] [address] [place] [address] 05/29/2020 13:07:47 05/29/2020 14:58:54 Essential hypertension 80840131 I10 Stable on present medication s Serum crea tinine above reference range 517974142 R79.89 [id number] Ryder Lou MD Main Office [address] [address] [place] [address] 07/06/2020 11:10:58 07/06/2020 12:26:52 Uncontrolled type 1 diabetes mellitus 986237143 E10.65 followed by endo Essential hypertension 05421192 I10 Stable on present medication s Influenza vaccine needed 4909697113 106 Z23 Renal diso rder due to type 1 diabetes mellitus 506210683 E10.29 [id number] Juan Carlos Cabrera MD Main Office [address] [place] [address] 02/09/2021 14:02:21 02/09/2021 15:13:29 Transition of care 0362390955 105 Z75.8 I just received the dc summary today, will review and adjust therapy accordingl y. Carotid ar jeff stenosis 97181845 I65.29 s/p repeat CEA has f/u with vascular surgeon. Per previous record patient had a stent which is not typical of an endarterec collin and then the area thrombosed resulting in new endarterec collin stent thrombosis could be due to a KMY0X74 deficiency and thus Plavix would not be the drug of choice hence he was started on Brilinta however it is not clear and thus I have asked the foster care case manager to follow-up with his vascular surgeon. In addition this could also be due to previous history of patient potentiall y not taking medication as prescribed ?. Hypercholesterolemia 136 79212 E78.00 Cw with current meds per order. Uncontroll ed type 1 diabetes mellitus 095463403 E10.65 He is type one and establishe d with endo thus I advised him to f/u with them.He is on Tresiba only. Vitamin D deficiency 347 68337 E55.9 Will cw with Vit D Generalize d anxiety disorder 87149110 F41.1 He was started on paroxetine , due to lower stroke risk however patient noted it was not working and wanted to go back on lexapro thus we switched back.parox etine is not recommende d for geriatric patient as well thus I agreed. Essential hypertension 14759171 I10 Patient was started on hydralazin e bp has been labile and fluctuates .Will not adjust till I can review his dc summary as to why this was switched.H e would be a better candidate for an GRETTA and tapered of hydralazin e since bp is labile.Adam l keep amlodipine 10 mg. [id number] Juan Carlos Cabrera MD Main Office [address] [facility] [address] [place] [address] 02/09/2021 07:49:40 02/09/2021 16:39:52 [id number] Juan Carlos Cabrera MD Main Office [address] [facility] [address] [place] [address] 02/15/2021 10:21:31 02/15/2021 11:08:19 Carotid artery stenosis 25175557 I65.29 s/p repeat CEA advised f/u with vascular regarding Brilinta vs plavix Essential hypertension 96539170 I10 Coreg increased to 12.5 BIDAmlodip ine switched to nifedipine he will do in 30's so we can better titrate till BP at [place]. Advised to take 2 30 mg (60 mg) if need too can titrate to 60 and max of 120Advised to keep BP log and lifestyle modificati onsCare Student Life Advisor to follow up BP dailyBP elevated in office today no - asymptomat icSigns and symptoms of HTN emergency discussedP blaine to gradually decrease be 10-20% every 1-2hrs.Adam l try to wean off hydralazin e if MALLY resolved. Acute inju ry of kidney 6172724777 5609331 N17.9 Is establishe d with nephrologi st - advised he can f/u (Dr. Wagner)BM P ordered and urine studies.Wi ll try to obtain blood result form rehab to compare. Renal diso rder due to type 1 diabetes mellitus 755888716 E10.21 Had an episode of hyperglyce arti at PT reading was 25.Will drop tresiba from 50 unit ti 45, advised dialy BG monitor and to reach out to endo as he is type 1 was on CGM, has endo apt coming up. [id number] Lima Lewis MD [facility] [address] [facility] [address] [place] [address] 02/18/2021 12:42:20 02/18/2021 15:21:59 Essential hypertension 18314555 I10 Decrease his nifedipine from 90 to 60 mg daily. He will also cut out his bedtime hydralazin e. He will follow his BP and will call if the systolic goes above 150. The goal will be to decrease the hydralazin e and to increase the nifedipine over time. Near syncope 746542965 R 55 This may have been secondary to orthostati c hypotensio n given the changes in his systolic pressure. And micturitio n syncope may have also been playing a role. This could have been brought on by the increase of his nifedipine from 60 to 90 mg daily. For now he will go back to 60 mg. [id number] Juan Carlos Cabrera MD Main Office [address] [place] [address] 02/24/2021 09:33:14 02/24/2021 10:23:48 Serum creatinine above reference range 919331547 R79.89 Will get BMP if still high will add urine studiesHe as reached out to his nephrologi st for an apt.He is aware to hydrate and avoid nephrotoxi c medication s. Essential hypertension 57664048 I10 Will keep Coreg to 12.5 BIDBp stable with nifedipine 90 thus will keep for now.Advise d to keep BP log and lifestyle modificati onsCare Student Life Advisor to follow up BP dailyPatie nt aware of Signs and symptoms of HTN emergencyz s Carotid ar jeff stenosis 58598658 I65.29 s/p repeat CEA advised f/u with vascular regarding Brilinta vs plavix He is taking plavix right now due to high cost of Brilinta awating vascular recs I tried to send Brilinta to his mail in pharmacy to see if it is cheaper as his co-pay is high. 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 174816052 E10.51 Carotid and LE arterial disease Chronic ob structive pulmonary disease 04481293 J44.9 Stable on present meds Hemiplegia and/or hemiparesis following stroke 5012335140 9107 I69.359 01/2021 .Right-hem ispheric CVA with left-sided hemiplegia (arm most affected) [id number] Juan Carlos Cabrera MD Main Office [address] [place] [address] 04/21/2021 09:10:35 04/21/2021 18:38:29 [id number] Ryder Lou MD [facility] [address] [facility] [address] [place] [address] 04/23/2021 13:16:26 04/23/2021 14:22:11 Essential hypertension 31381558 I10 Stable on present medication s Chronic ty pe B viral hepatitis 12176038 B18.1 Followed by ID Nausea 391453333 R11.0 [id number] Juan Carlos Cabrera MD Main Office [address] [address] [place] [address] 04/28/2021 10:26:31 04/28/2021 11:15:19 Transition of care 8277901496 105 Z75.8 Summary and labs reviewed, medication reconciled .He tells me his ID physician Dr. Marie Okeefe, changed his Hep B medication , will try to get name. Renal artery stenosis 30 7746745 I70.1 s/p stenting due to see nephrology 05/25/21, BP still elevated will generous with BP controll goal to be below 150's systolic thus will increase amlodipine to 5 mg. He was also advised he should follow with nephrology given recent stenting.H ad labs recently done at rehab will repeat in the next day or 2. Essential hypertension 46934670 I10 Will increase amlodipine to 5 mg, also encouraged patient to follow up regularly with nephrology .Advised to keep BP log and lifestyle modificati onsCare Student Life Advisor to follow up BP regularly. Patient aware of Signs and symptoms of HTN emergency Mixed anxi ety and depressive disorder 304544170 F41.8 Will increase lexapro to 20 mg and add psychology referral advised him to reach out to his previous therapist. Herpes zoster 0410520 B0 2.9 The rash maybe the start of shingles, will renally dose valtrex.Cr Cl 27 thus will dose to 1gm qD. [id number] Ryder Lou MD [facility] [address] [facility] [address] [place] [address] 05/07/2021 14:35:28 05/10/2021 09:12:26 Tinea corporis 28800308 B35.4 Contact dermatitis 47264 004 L25.9 [id number] Juan Carlos Cabrera MD Main Office [address] [place] [address] 05/28/2021 10:53:13 05/28/2021 11:58:44 Essential hypertension 36841946 I10 BP well controlled will not make adjustment s. Mixed anxi ety and depressive disorder 378573831 F41.8 Improved with lexapro 20, will cw with current dose and have him get BMP to ensure electrolyt e not deranged. Pruritic rash 23659907 L 28.2 Improved advised emollient otc aveeno as he has xerosis. Nocturia 999564844 R35.1 As visit was ending he noted to me he as having nocturia.H e admitted he drinks fluid before bed thus I advised him to stop drinking 2 hrs before bedWill check PSA as well.If no improvemen t he as advised to schedule further apt for f/u [id number] Rian Dawkins PA-C Main Office [address] [place] [address] 06/21/2021 14:48:45 06/21/2021 15:54:18 Acute otitis externa 25119448 H60.509 will rx c otic abx drops in future, consider vinegar based product to dry out wet ears p swimming/s howering / cottonball avoid qtips/fing ernails in ear re-eval in 1 wk, and re-check bp as well [id number] Rusty Richard MD Main Office [address] [place] [address] 07/01/2021 15:02:05 07/01/2021 15:44:49 Acute otitis externa 75356118 H60.502 better p otic abx drops, but pressure/f eeling of water in ear persists - see below Dysfunctio n of eustachian tube 51697705 H69.92 see above - trial c nasal saline spray, flonase, and prn warm washcloth to side of neck if no sig improvemen t, then consider ENT eval Essential hypertension 73743540 I10 borderline elevated - just seen by alexis earlier today - bp similar - he was advised by card to cont meds as dir d/t fear of causing orthostasi s which he has had in the past [id number] Juan Carlos Cabrera MD Main Office [address] [facility] [address] [facility] [place] [address] 11/29/2021 10:00:22 11/29/2021 11:15:46 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 Hemiplegia and/or hemiparesis following stroke 7370549385 9107 I69.359 some residual weakness in Left upper extremity. Chronic ob structive pulmonary disease 44334851 J44.9 stable on inhaler,Barth s not had exacerbati on in > 1yr Chronic ki dney disease stage 3 165011427 N18.32 Follows nephrology .Has apt today Hypercholesterolemia 136 22183 E78.00 Cw with current meds per order.repe at lipids in january Fatigue 26665441 R53.83 Mixed anxi ety and depressive disorder 789957568 F41.8 Improved with lexapro 20, will cw with current dose and have him get BMP to ensure electrolyt e not deranged. Renal diso rder due to type 1 diabetes mellitus 813692930 E10.21 Most recent hba1c 8.8%HBA1C f4ebukzt done/ labs orderedACE : Held due to [...] Dental visit advised. Pain of left hand 728947 7603 18083 M79.642 had injury from breaking fall, no head neck trauma. Wrist and elbow intact, denies pain, mild bruise. Able to wiggle fingers with some residual weakness from stroke, sensation intact, radial pulses intact.Con servative therapy discussed, wrapped with gretta bandage, ice adivsed and elevation. Hypertensi ve renal disease 28941624 I12.9 Low sodium diet discussedC ounseled on medication adherenceC ounseled on diet/exerc iseAdvised to keep BP daily BP log and technique counseled. Red flags of HTN emergency discussed and when to go to ED.To follow nephrology today, advised consider increase hydralizen vs retrial low dose GRETTA, Chandler to discuss with nephro. [id number] Juan Carlos Cabrera MD Main Office [address]40 [facility] 207 [facility] [place] [address] 01/17/2022 12:55:30 01/18/2022 10:17:24 COVID-19 692687961 U07.1 Advised tylenol q6hr PRNThroat Lozenges for sore throat, salt water gargle,Dottie quate hydration enforced, saline sprays, humidifier use enforced.m onoclonal antibody form faxed. Muscle weakness 28267468 M62.81 Noted unable to ambulate in AM, legs would give out.Signif icant hx of CVA, given this I advised Chandler to go to ED immediatly to r/o CVA. Anxiety state 815354715 F41.1 Advised limit use and only after going to ED to r/o for acute stroke.Ris k of sedation and respirator y depression discussed. 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 532784168 E10.51 cont f/u c endo - rev last note 7.1.22 - seen by special educator last week, cont f/u c endo 9.22 seen by eye md recently - will attempt to get records Pure hypercholesterolemia 858104251 E78.00 cont statin, rec increase walking to raise hdl Pituitary microadenoma 879761151 D35.2 cont f/u c endo Hemiplegia and/or hemiparesis following stroke 8661724105 9107 I69.359 cont meds, cont f/u c neuro Anxiety 04049112 F41.9 stable, cont med as dir, no see counsellor Hypertensi ve renal disease 84222428 I12.9 stable, cont meds as dir Former hea vy tobacco smoker 3407779092 61656 Z87.891 cont ldct surveillan ce [id number] Juan Carlos Cabrera MD Main Office [address] [address] [place] [address] 08/12/2022 09:22:16 08/12/2022 09:56:29 Pruritic disorder 298422357 L29.9 Likely xerosis related to DM, advised emollient use will check labsAdvise d eucerin emollient and aveeno oat soaksDM controlled discussed. Avoid caffeineAv oid ETOHHumidi fied airAvoid hot showersAvo id spiceshypo allergenic wash advisedCon t follow up with dermZyrtec for itch, sedation risk advised with antihistam ine. [id number] Lima Lewis MD [facility] [address] [place] [address] 08/24/2022 08:47:46 08/24/2022 10:34:01 Cough 74184842 R05.9 cough/ illness sicne 08/12 in diabetic patient with COPD. Will tx for possible secondary bacterial infection. zpak as directed x 5 days, hydration, rest, tylenol as needed, may use dayquil/ nyquil as needed but no tylenol if he takes those. Call or return for worsening or concerns, Exposure t o viral disease 8752393500 97679 Z20.828 exposed to rsv, he has been sick since 08/12. no fever, no SOB. Chronic ki dney disease stage 3 338532939 N18.32 Chronic ob structive pulmonary disease 06416715 J44.9 Uncontroll ed type 1 diabetes mellitus 747381577 E10.65 Hypertensi ve renal disease 19422628 I12.9 [id number] Juan Carlos Cabrera MD Main Office [address] [address] [place] [place] [address] 09/13/2022 09:52:11 09/13/2022 11:00:07 Renal disorder due to type 1 diabetes mellitus 383076209 E10.21 Most recent hba1c 8%HBA1C z7nakupt doneACE: Held due to renal function.A spirin [...] advised. Uncontroll ed type 1 diabetes mellitus 262131933 E10.65 He is type one and establishe d with endo thus I advised him to f/u with them.He is on Tresiba only. Essential hypertension 85208835 I10 Will increase metoprolol 75mg bid. Pruritic disorder 038614 002 L29.9 Notes emollient has help Likely xerosis related to DMCw with:DM controll.A void caffeineAv oid ETOHHumidi fied airAvoid hot showersAvo id spiceshypo allergenic wash advisedCon t follow up with dermZyrtec for itch, sedation risk advised with antihistam ine. Chronic ki dney disease stage 3B 534937804 N18.32 Follows nephrology . [id number] Juan Carlos Cabrera MD Main Office [address], [place] [address] 07/17/2023 12:32:03 07/17/2023 13:45:15 Adult health examination 121014509 Z00.00 Patient was counseled on healthy diet, exercise and nutrition due to Body mass index is 22.8 kg/m . Last PSADate: 05/28/21Resu lt: 2.4Plan: Last Colonoscop y:Date: 04/13/17Res ult: wnlPlan: Per GI screen 10yrs Vaccines:T dAP: 04/16/18Zos ter rec: 06/26/19, 04/11/2020P CV13: 02/08/17PPS V23: 04/13/16PCV 20: 03/15/2023 Influenza: 07/17/23Cov id: 01/01/21, 01/22/21, 08/09/21, 10/11/22 bivalent Routine labs today Immunizati on status reviewed. Will screen based on risk factors. Regular dental and ophtho care advised as well as seat belt and sunscreen use. Distracted driving discussed. Medication reconciled . Advance directives discussed. 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 Chronic ki dney disease stage 3B 147992470 N18.32 Follows nephrology . Pituitary microadenoma 215346780 D35.2 Seeing endo. Nicotine dependence 5629 4008 Z87.891 LDCT Lung Cancer Screening Program Annual Order Advance di rective discussed with patient 019491196 Z71.89 healthcare proxy and molst provided [id number] Rusty Richard MD Main Office [address] [place] [address] 11/27/2023 13:56:45 11/27/2023 15:02:26 At increased risk for falls 482910432 Z91.81 Recurrent falls 03815918 2 R29.6 check labs, get fpi eval and neuro re-eval Vitamin D deficiency 347 00380 E55.9 Fatigue 91149786 R53.83 Weight loss 37444514 R63 .4 most likely d/t ozempic from endo - but stopped this med last month - cont f/u c endo, next in a few weeks meanwhile, rec glucerna & check prealbumin [id number] Rusty Richard MD Telehe[facility] h [address] [address] [place] [address] 12/01/2023 12:52:17 12/01/2023 14:33:40 COVID-19 359651567 U07.1 Based on duration of symptoms and [...] x 1 week) as indicated with Paxlovid. [id number] Juan Carlos Cabrera MD Main Office [address] [address] [place] [address] 12/19/2023 13:30:59 12/22/2023 12:57:51 [id number] JOYCE WALK[place] MD Main Office [address] [place] [address] 12/25/2023 15:26:12 12/26/2023 08:38:44 Transition of care 9655814434 105 Z75.8 Uncontroll ed type 1 diabetes mellitus 214163157 E10.65 Blood sugars elevated on last BMP [...] c cc: endo Hypertensi ve renal disease 03662986 I12.9 stable, creatinine stable at 1.7, cont hydralazin e, metoprolol and amlodipine as directed. F/U with renal. Pt encouraged to continue monitor blood pressures at home Constipation 92527315 K5 9.00 Pt has had constipati on since in rehab and was given colace with some effect. Pt would like to try miralax. Pt will get miralax OTC, recommend 1/2-1 scoop qd - qod Pruritic disorder 330958 002 L29.9 Pt requested refill of cetirizine for his allergies and itching Recurrent falls 03791514 2 R29.6 Pt hospitaliz ed after recent fall. pending neuro eval Chronic ki dney disease stage 3 335658879 N18.32 creatinine stable at 1.7. Prealbumin low at 15.3. continue follow up with renal. Continue adequate hydration. pt dehydrated at the hospital, will recheck Weight loss 14840976 R63 .4 most likely d/t ozempic from [...] Recheck albumin Hemiplegia and/or hemiparesis following stroke 4922869017 9107 I69.359 cont meds, cont f/u c neuro == pending f/u c neuro [id number] Juan Carlos Cabrera MD Main Office 3640 [facility] 207 [facility] [place] [address] 01/16/2024 14:11:38 01/16/2024 14:58:22 Pituitary adenoma 421502176 D35.2 Following neurosurge on Pituitary microadenoma 386645498 D35.2 Following neurosurge on Pituitary mass 928266815 R22.0 Following neurosurge on 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 Spasticity as sequela of stroke 4807906248 77363 R25.2 Type 1 diego betes mellitus 35526434 E10.9 Cont. follow with endo, questionab le ?type 2 dm Chronic ki dney disease stage 3B 041205156 N18.32 Follows nephrology . [id number] Juan Carlos Cabrera MD Main Office 97[address] [facility] 207 [facility] [place] [address] 07/19/2024 11:09:23 07/19/2024 12:20:16 Adult health examination 294371804 Z00.00 Patient was counseled on healthy diet, exercise and nutrition due to Body mass index is 23.5 kg/m . Last PSADate: 05/28/21Resu lt: 2.4Plan: past age [...] reconciled . Advance directives discussed. Essential hypertension 08899620 I10 Stable on present medication s Hemiplegia and/or hemiparesis following stroke 2312814029 9107 I69.359 01/2021 .Right-hem ispheric CVA with left-sided hemiplegia (arm most affected) Chronic ty pe B viral hepatitis 90245915 B18.1 Followed by ID Chronic ob structive pulmonary disease 71369605 J44.9 Stable on present meds Fatigue 37134532 R53.83 Z00.00 Hyperlipidemia 32117595 E78.5 Z00.00 Vitamin D deficiency 347 16346 E55.9 Will cw with Vit D Chronic ki dney disease stage 3B 533885778 N18.32 Follows nephrology . Pituitary microadenoma 021283386 D35.2 Seeing endo. Advance di rective discussed with patient 591088748 Z71.89 healthcare proxy and molst provided Influenza vaccine needed 0284037452 106 Z23 65 YEARS AND OLDER Hyperglyce arti due to type 2 diabetes mellitus 0980736523 87263 E11.65 Follows kxpuO5x and microalbum in and tx per endo. Insulin tr eated type 2 diabetes mellitus 803193132 Z79.4 Coronary arteriosclerosis 25498695 I25.[address] recommends DAPT for rest of life. 333782 Juan Carlos Cabrera MD Main Office 3640 [facility] [address] [place] [address] 12/06/2024 10:24:28 12/06/2024 11:10:28 Pituitary microadenoma 481344382 D35.2 Seeing endo. Chronic ty pe B viral hepatitis 89900285 B18.1 Followed by ID Hemiplegia and/or hemiparesis following stroke 9562880995 9107 I69.359 01/2021 .Right-hem ispheric CVA with left-sided hemiplegia (arm most affected) Chronic ob structive pulmonary disease 64092264 J44.9 Stable on present meds Chronic ki dney disease stage 3B 144470374 N18.32 Follows nephrology . Coronary arteriosclerosis 49015648 I25.[address] recommends DAPT for rest of life. Essential hypertension 19760354 I10 Stable on present medication s Hyperglyce arti due to type 2 diabetes mellitus 5215642279 22814 E11.65 Follows ejfdJ0e and microalbum in and tx per endo.Had c-peptide done suggesting he is type 2 dm and not [address]. Insulin tr eated type 2 diabetes mellitus 076713781 Z79.4 Major depr ession in remission 96758544 F32.5 Stable on lexapro. 601863 Juan Carlos Cabrera MD Main Office [address] [facility] [address] [place] [address] 01/14/2025 10:56:08 01/14/2025 12:25:56 Hyperglycemia due to type 2 diabetes mellitus 7194933683 68684 E11.65 Follows eigsU0n and microalbum in and tx per endo.Had c-peptide done suggesting he is type 2 dm and not 1, has CeQur on place. Hypertensi ve renal disease 39285764 I12.9 Low sodium diet discussedC ounseled on medication adherenceC ounseled on diet/exerc iseAdvised to keep BP daily BP log and technique counseled. Red flags of HTN emergency discussed and when to go to ED.To follow nephrology January, consider increase hydralazin e vs retrial low dose GRETTA, [place] to discuss with nephro. Mixed anxi ety and depressive disorder 734437258 F41.8 Improved with lexapro 20 [id number] Juan Carlos Cabrera MD Main Office [address] [facility] [address] [place] [address] 02/17/2025 08:06:58 02/19/2025 15:36:24 [id number] Rusty Richard MD Main Office [address] [facility] [address] [place] [address] 02/25/2025 13:31:36 02/25/2025 14:50:02 Right lower zone pneumonia 285042459 J18.9 03807148 Clinically improved, and pt is going to have LDCT for lung cancer screening in April so will defer follow up imaging until then unless symptoms return. Leukocytosis 549525634 D 72.829 505542 Was normalizin g and pt clinically improved. Will defer follow up labs at this time. Biliary calculus 0625976 03 K80.20 7787295 Pt is asymptomat ic and aware of this. Aneurysm o f infrarenal abdominal aorta 083064291 I71.43 9782080591 Monitoring with PCP and risk factors currently well controlled . [id number] Juan Carlos Cabrera MD Main Office [address] [facility] [address] [place] [address] 04/15/2025 09:33:32 04/15/2025 10:13:06 Hemiplegia and/or hemiparesis following stroke 4629101370 9107 I69.359 01/2021 .Right-hem ispheric CVA with left-sided hemiplegia (arm most affected) Preoperati ve procedure 190343019 Z01.818 231909 Edema of l ower extremity 701378049 R60.0 50321 Noted on exam, he will be traveling will get labs, r/o DVT. Have return for follow up if neg. [id number] Juan Carlos Cabrera MD Main Office [address] [facility] [address] [place] [address] 05/05/2025 08:27:32 05/05/2025 15:36:08 [id number] Ryder Lou MD Main Office 3640 [facility] [address] [place] [address] 05/05/2025 14:41:21 05/05/2025 15:48:44 Hemiplegia as late effect of cerebrovascular accident 483828551 I69.676 7949291 Hemiplegia and/or hemiparesis following stroke 3171323495 9107 I69.359 01/2021 .Right-hem ispheric CVA with left-sided hemiplegia (arm most affected) [id number] Juan Carlos Cabrera MD Main Office [address] [facility] [address] [facility] [place] [address] 07/07/2025 10:47:40 07/07/2025 11:46:00 Hypertensive renal disease 58039436 I12.9 Chronic ki dney disease stage 3B 075472058 N18.32 Pituitary adenoma 025252 000 D35.2 688046 Following neurosurge on Hyperglyce arti due to type 2 diabetes mellitus 3411147693 90649 E11.65 [id number] Juan Carlos Cabrera MD Main Office [address] [facility] [address] [place] [address] 07/22/2025 10:55:15 07/22/2025 12:13:26 Adult health examination 099300421 Z00.00 Patient was counseled on healthy diet, exercise and nutrition due to Body mass index is 24.1 kg/m . Last PSADate: 05/28/21Resu lt: 2.4Plan: past age for screening Last Colonoscop y:Date: 04/13/17Res ult: wnlPlan: Per GI screen 10 yrs Vaccines:T dAP: 04/16/18Zos ter rec: 06/26/19, 04/11/2020P CV13: 02/08/17PPS V23: 04/13/16PCV 20: 03/15/2023 Influenza: 07/22/25Cov id: encourage updated vaccineRSV : 09/12/23 LDCT:Date: 06/06/25Res ult: Lung Rad-2Plan: cont. yearly screen Routine labs today recent lab reviewed. Immunizati on status reviewed. Will screen based on risk factors. Regular dental and ophtho care advised as well as seat belt and sunscreen use. Distracted driving discussed. Medication reconciled . Advance directives discussed. Advance di rective discussed with patient 091543056 Z71.89 healthcare proxy and molst provided Hemiplegia and/or hemiparesis following stroke 1250286648 9107 I69.359 01/2021 .Right-hem ispheric CVA with left-sided hemiplegia (arm most affected) Chronic ty pe B viral hepatitis 63518263 B18.1 Followed by ID Chronic ob structive pulmonary disease 29595299 J44.9 Stable on present meds Hyperlipidemia 14933924 E78.5 Z00.00 Vitamin D deficiency 347 52963 E55.9 Will cw with Vit D Chronic ki dney disease stage 3B 847539083 N18.32 Follows nephrology . Pituitary microadenoma 801959871 D35.2 Seeing endo. Influenza vaccine needed 1521376314 106 Z23 65 YEARS AND OLDER Hyperglyce arti due to type 2 diabetes mellitus 2553275057 72170 E11.65 Follows dyhpS7t and microalbum in and tx per endo. Insulin tr eated type 2 diabetes mellitus 441439004 Z79.4 Coronary arteriosclerosis 59932097 I25.[address] recommends DAPT for rest of life. Hypertensi ve renal disease 10916450 I12.9 Essential hypertension 88085442 I10 I saw him on July 07, at which time his hydralazin e use was not entirely clear. Since then, I received a note from his cardiologi st stating that his blood pressure tends to be labile due to dysautonom ia syndrome and diffuse vascular disease, which makes management quite challengin g. The cardiologi st noted that he is generally doing well with permissive hypertensi on, with systolic pressures up to 150 mmHg being acceptable in his case. Therefore, the cardiologi st does not recommend lowering his nocturnal hydralazin e and advised maintainin g it at 50 mg at bedtime, which, although somewhat unusual, is appropriat e for him. The patient is not aware of having nocturnal hypertensi on at this time. We agreed to follow the cardiologi st s recommend ation, and I have increased his hydralazin e dose back to 50 mg daily. He was advised to monitor his blood pressure in the evening before taking hydralazin e and again one hour afterward. I will see him back in 6 months to reassess his blood pressure, and he should continue to follow up with his specialist as scheduled. Health Concerns Section Related Observation LastModified by Organization Detai ls LastModified Time None Recorded Concern Status LastModified by Organization Details LastModified Time None Recorded Advance Directives Directive N: Payers Insurance Date Sequence Insurance Name Policy Number Policy Garcia Covered Member ID Garcia Member ID Guarantor Name 05/28/2021 1 [place] 104 Phan Stauffer Leonela [id number] Phan Stauffer Leonela 08/07/2025 2 [place] [id number] Phan Stauffer Leonela [id number] Phan Stauffer Leonela 05/28/2021 [place] 104 Phan Brennanuthier [id number] Phan Stauffer Leonela 07/22/2025 1 [place] [employer] Phan Stauffer Leonela [id number] Phan J Leonela Notes Date Note Type Note Provider Name and Address Organization Details Recorded Time 5 text/html The patient is planning to travel to [place] for paraspinal interoceptive therapy with Enbrel infusion. He requires a CBC and QuantiFERON lab prior to the procedure. This treatment is being pursued due to hemiparesis following a cerebrovascular accident (CVA). The patient is aware that this is an off-label use and not FDA-approved, and he acknowledges that he is proceeding at his own risk. He is also aware of the potential hepatic concerns associated with Enbrel given hx of hepatitis; infectious disease (ID) has cleared him for the infusion. Juan Carlos Cabrera MD [address] [address], [place], [address], [facility] 04/15/2025 10:13:24 5 text/html Hospitalization Contact RecordReported by PatientHospitalization Contact RecordFor follow up, patient reportshospital: out of area hospital,admit date: (please enter in format 'mm/dd/yyyy') (04/29/2025),date of discharge: (please enter in format 'mm/dd/yyyy') (05/01/2025), anddate of contact: (please enter in format 'mm/dd/yyyy') (05/05/2025)([place], [place]Medicare covered inpatient stay? yes Medicare [place] with in 48 working hours? yes High Complexity code valid on or before:April Moderate Complexity code valid on or before: April HCP on file? no MOLST on file? no Discharge Summary available? yes 74 year old male who recent was visiting [facility] and neck injection done at [facility] on 04/29/2025 presented several hours later to local ED due to neck pain, nausea and vomiting. Patient was admitted due to medication adverse reaction and developed fever history of stroke was monitored closely. Cardiac work up/ scans - within normal limits CT of cervical spine shows degeneration changes no acute fractures or malalignment. History of degeneration disc disease. MRI of UE - edema. cellulitis no evidence of abscess or osteomyelitis Vitals/ labs were stable cleared for discharge after a 2 day stay. PCP Heads Up: Patient to follow up with neuro, ID and PCPpatient non compliant with daily sugar and blood pressure readings. Cart Attendant NATIVIDAD call to patient , back in [place] ,reports feeling better denies nausea , vomiting,fever, numbness, tingling, headaches, visual changes . Still has some discomfort in neck but tolerable. No changes to medication resume home medication regimen. Patient is requesting referral for PT due to neck pain. I scheduled patient with Dr. Lou this afternoon at 3 pm to discuss discharge status . Patient aware to contact neuro and ID to schedule follow ups as well. ROS as noted in the HPI PLease see notes from recent hospital stay in [place] for complications after receiving perispinal enteracept an off-label use for post-CVA spasticy. Patient had swelling and pain in the area of the injection and was admitted to rule out infection or abscess. MRI of the area was significant for only edema according to report. The patient had traveled to [place] for the procedure, which is experimental and was intended to be an outpatient procedures. After receiving the injection he had adverse event and was then admitted for 2d inpatient stay. Presently, he notes that he is back to baseline and has not ongoing pain or swelling in the area of the injection. No new concerns. Ryder Lou MD [address] [address], [place], [phone], [facility] 05/09/2025 08:15:17 5 text/html Hospitalization Contact RecordReported by PatientHospitalization Contact RecordFor follow up, patient reportshospital: out of area hospital,admit date: (please enter in format 'mm/dd/yyyy') (04/29/2025),date of discharge: (please enter in format 'mm/dd/yyyy') (05/01/2025), anddate of contact: (please enter in format 'mm/dd/yyyy') (05/05/2025)([place], [place]Medicare covered inpatient stay? yes Medicare NATIVIDAD with in 48 working hours? yes High Complexity code valid on or before:April Moderate Complexity code valid on or before: April HCP on file? no MOLST on file? no Discharge Summary available? yes 74 year old male who recent was visiting [facility] and neck injection done at [facility] on 04/29/2025 presented several hours later to local ED due to neck pain, nausea and vomiting. Patient was admitted due to medication adverse reaction and developed fever history of stroke was monitored closely. Cardiac work up/ scans - within normal limits CT of cervical spine shows degeneration changes no acute fractures or malalignment. History of degeneration disc disease. MRI of UE - edema. cellulitis no evidence of abscess or osteomyelitis Vitals/ labs were stable cleared for discharge after a 2 day stay. PCP Heads Up: Patient to follow up with neuro, ID and PCPpatient non compliant with daily sugar and blood pressure readings. Cart Attendant NATIVIDAD call to patient , back in [place] ,reports feeling better denies nausea , vomiting,fever, numbness, tingling, headaches, visual changes . Still has some discomfort in neck but tolerable. No changes to medication resume home medication regimen. Patient is requesting referral for PT due to neck pain. I scheduled patient with Dr. Lou this afternoon at 3 pm to discuss discharge status . Patient aware to contact neuro and ID to schedule follow ups as well. Ryder Lou MD [address] [address], [place], [phone], [facility] 05/05/2025 13:20:07 5 text/html ROS as noted in the HPI The patient presents today for a blood pressure follow-up. He has been taking hydralazine 50 mg nightly for some time. We had previously discussed the possibility of tapering or increasing the dose, depending on his home bp readings but today in the office his reading was low (119/49). He is asymptomatic and denies dizziness, lightheadedness, chest pain, shortness of breath, palpitations, or swelling in the legs. He reports eating some salt in his diet. His exercise could be improved but is limited due to prior CVA. He reports taking his medication as prescribed without side effects. He is followed by both nephrology and endocrinology, and there has been discussion about starting an GRETTA inhibitor or ARB if renal function allows. He also has type II diabetes, and SGLT2 inhibitors have been considered but not yet prescribed. The patient states that his neurosurgeon for pituitary adenoma has retired; he is established with a new provider but has not yet received a call to schedule follow-up. Juan Carlos Cabrera MD [address], [phone], [facility] 07/07/2025 12:19:12 5 text/html Medicare Annual Wellness VisitReported by PatientSocial/Behavioral HistoryFor fracture risk, patient reportsno history of fracturesandno recent explained fracture. For physical activity, patient reportsdiscussed weightbearing activitiesanddiscussed exercise habits. For diet and nutrition, (followed for dm2 and encouraged low carb diet).Mental Status:For concentration and memory, patient reportsno memory lapses or loss. For speech/motor difficulties, patient reportsno speech difficultiesandno difficulty expressing formulated concepts. For depression risk, (stable mood symptoms despite recent cva).Functional AbilityFor vision, patient reportsworse with distance (wears glasses). For activities of daily living, patient reportsunable to bathe without assistance (assist x 1, has grab bars)andunable to groom without assistancebut reportsable to contol urination and bowels,able to dress with limited or no assistance,able to feed self with limited or no assistance,able to get out of chair or bed with limited or no assistance, andable to toilet with limited or no assistance. For instrumental activities of daily living, patient reportsunable to do house work without assistance,unable to grocery shop without assistance, andunable to to prepare meals without assistancebut reportsable to manage medications with limited or no assistance,able to manage money with limited or no assistance, andable to use the phone with limited or no assistance. For hearing, patient reportsno loss of hearing. For falls risk assessment, patient reportsno fall in the past year. For home safety, patient reportsworking smoke/co detectors,has hand bars in the bathroom/shower,good lighting in the home, andreviewed sun protection. Here for PE visit. Reviewed chronic medications and medical problems. Discussed screening guidelines as well as goals for fitness and weight management. Juan Carlos Cabrera MD [address] [address], [place], [phone], [facility] 07/22/2025 12:09:30
--- OUTSIDE RECORDS SUMMARY | 2025-09-01 13:24 | XMS_ITS | Encounter Summary ---
Author Organization [facility] Address [address] [facility] [address] [place] [address] Phone Care Team Providers Care Logger All Round Name Role Phone Afia Cabrera MD Primary Care Provider [phone] Encounter Details Date Type Department Care Team (Late Contact Info) Description 02/25/2022 Documentation Only [facility] [address] [facility] [address] [place] [address] Chandrakant Lei MD [address] [address] Social History Tobacco Use Types [...] Visit [facility] [address] [place] [address] Chandrakant Lei MD [address] [address] documented as of this encounter Visit Diagnoses Not on filedocumented in this encounter Care Teams Logger All Round Relationship Specialty Start Date End Date Afia Cabrera MD [address] [facility] [address] [place] [address] PCP - General Family Medicine 04/28/21 documented as of this encounter
== END 2025-09-01 11:25 | disposition home or self-care (01) ==
LOC: HO.ENCR 11:03
PROVIDERS: PCP Family Medicine; Visit Provider Internal Medicine Endocrinology, Diabetes & Metabolism
DX: E11.65 Type 2 diabetes mellitus with hyperglycemia (principal); D35.2 Benign neoplasm of pituitary gland
CPT/HCPCS: 99214; G2211

== ENCOUNTER → 2025-09-01 11:02 | Outpatient (BNVA) | payer MEDICARE, OTHER, SELFPAY | PROVIDERS: PCP Family Medicine; Visit Provider Internal Medicine Endocrinology, Diabetes & Metabolism | DX: E11.65 Type 2 diabetes mellitus with hyperglycemia (principal); D35.2 Benign neoplasm of pituitary gland; E78.5 Hyperlipidemia, unspecified; Z79.4 Long term (current) use of insulin | CPT/HCPCS: 82947; 83036; 99212 ==